=== PATIENT | female | born 1950 | race African-American/Black ===

== ENCOUNTER 2020-01-07 03:04 | Inpatient (IN) | payer MEDICARE, OTHER ==
[~2020-01-07] VITALS: Ht 172.7 cm; Wt 76.7 kg
[2020-01-07] VITALS (7 sets, daily range): BP systolic 173–194; BP diastolic 80–104
[~2020-01-07 03:04] MED LIST: UNOBMED
--- NOTE | 2020-01-07 03:14 | Emergency Room Report ---
History of Present Illness General Chief Complaint: Multiple Trauma/Fall Source: Patient Present Illness HPI Disclaimer: Please note that this report is being documented using DRAGON technology. This can lead to erroneous entry secondary to incorrect interpretation by the dictating instrument. HPI: 69-year-old female presents for evaluation after a ground-level fall. The patient was walking back to her room from the bathroom slipping on the ground falling onto her right side and onto her back. No head injury or loss of conscious. She does not take anticoagulants. Reports midline back pain radiating around the right side and across the right thigh. Denies numbness or tingling. Has not attempted to urinate or pass a bowel movement yet. Able to move lower extremities with states she did not have the strength to stand. Denies prior history of back injury or surgery. Also complaining of right shoulder pain over the anterior portion. She states she impacted on that shoulder. Denies pain radiating. Pain is 8/10. PMH: Hypertension, pre-diabetes, ESRD PSH: Dialysis catheter Allergies: Reviewed Social Hx: Reviewed Allergies: Coded Allergies: IODINE (Verified Allergy, Unknown, 01/07/20) Uncoded Allergies: CONTRAST DYE (Allergy, Unknown, 01/07/20) COVID-19 Screening Contact w/high risk pt: No Recent Travel to affected area: No Experienced COVID-19 symptoms?: No COVID-19 Testing performed CLEAT LAYER: No Nursing Documentation-PMH Hx Hypertension: Yes Hx Diabetes: Yes Hx Dialysis: Yes - M,W,F Hx Seizures: Yes Review of Systems All Other Systems: negative except mentioned in HPI Physical Exam Vital Signs Date Time Temp Pulse Resp B/P (MAP) Pulse Ox O2 Delivery O2 Flow Rate FiO2 01/07/20 03:06 99.0 90 16 193/104 (133) 94 Room Air General: Awake and alert, appears uncomfortable HEENT: NC/AT. EOMI. Resp: Normal work of breathing. Skin: Intact. No abrasions, laceration or rash over the exposed skin MSK: Normal tone and bulk. Moving all extremities. No obvious deformity. Pelvis stable on AP and lateral compression. Full range of motion of lower extremities on passive range testing. Patient able to straight leg raise bilaterally. Neuro: Awake and alert. Mentating appropriately. Sensation is intact over the dermatomes of lower extremities. Spine: There is tenderness in the lower lumbar spine in the midline though more pronounced on the paraspinal region extending across the right side over the lateral portion of the right hip. The pelvis is stable. Medical Decision Making Diagnostic Impression: Primary Impression: Contusion of lower back and pelvis, initial encounter Additional Impressions: Contusion of shoulder, right Adnexal cyst Diverticulosis Cholelithiasis Splenomegaly Spinal hemangioma ER Course 69-year-old female presents for evaluation after a fall from standing. No injury, no loss of conscious and denying any headache or back pain at this time. Complaining of pain over the lower back and over over the right side of the hip. Concern for possible fracture CT scan of the spine was obtained as well as x-ray of the right shoulder. No evidence of acute fracture, dislocation or malalignment on x-rays of the right shoulder or CT of the lumbar spine. There is some chronic findings on CT including adnexal cyst, diverticulosis without diverticulitis, cholelithiasis, mild splenomegaly and a spinal hemangioma. Patient is complaining of persistent pain which is more paraspinal consistent with contusion and spasm. She was treated with Tylenol, Robaxin, lidocaine patches. She was provided with a walker. 0600: On attempted discharge the patient she states she is too weak to ambulate. She also admits that she is a chronic opioid user, previous heroin user. States she is mostly bedbound at home but has helped from a home health aide though no one is home at this time. She also states she missed dialysis this week due to transportation issues. Will draw labs to evaluate electrolytes, renal function. Her dialysis schedule is Friday, , Friday. Anticipate admission. Patient signed out to Dr. Roy pending labs and ultimate disposition. Other X-Ray Diagnostic Results Other X-Ray Diagnostic Results : X-Ray ordered: Right shoulder # of Views/Limited Vs Complete: Complete Indication: Pain EP Interpretation: Yes Interpretation: no dislocation, no soft tissue swelling, no fractures, other - Metallic foreign bodies in the soft tissue of the neck, tunneled dialysis catheter right chest. Impression: No acute disease PA Scribe Text Electronically signed by Dr. Roly Graff CT/MRI/US Diagnostic Results CT/MRI/US Diagnostic Results : Impression Final Report EXAM: CT Lumbar Spine Without Intravenous Contrast CLINICAL HISTORY: BK PAIN TECHNIQUE: Axial computed tomography images of the lumbar spine without intravenous contrast. CTDI is 12.9 mGy and DLP is 561 mGy-cm. One or more of the following dose reduction techniques were used: automated exposure control, adjustment of the mA and/or kV according to patient size, use of iterative reconstruction technique. COMPARISON: No relevant prior studies available. FINDINGS: Vertebrae: There is no evidence of acute fracture or malalignment of the lumbar spine. Vertebral body heights are preserved. Probable vertebral body hemangioma seen at L4. Discs/spinal canal/neural foramina: No acute findings. No spinal canal stenosis. Disc spaces are preserved. Soft tissues: Mild cardiomegaly. Cholelithiasis. Diffuse colonic diverticulosis. 5.6 cm partially septated right adnexal cyst, which is abnormal for patient's age. Mild splenomegaly. IMPRESSION: No evidence of acute osseous abnormality. Multiple chronic intra-abdominal findings as above. Recommend follow-up CT or MRI evaluation with the partially septated right adnexal cyst, or comparison to any prior exams if available. Radiologist: Carlos Perry M.D. Electronically Signed: 01/07/20 05:14 Study ready at 04:45 and initial results transmitted at 05:14 Last Vital Signs Date Time Temp Pulse Resp B/P (MAP) Pulse Ox O2 Delivery O2 Flow Rate FiO2 01/07/20 03:06 99.0 90 16 193/104 (133) 94 Room Air Condition: Stable Signed Out To: Dr Roy Scripts Acetaminophen* (TYLENOL EXTRA STRENGTH*) 500 Mg Tablet 500 MG ORAL Q8H PRN for Prn Headache/Temp > 101, #30 TAB 0 Refills Prov: Roly Graff MD 01/07/20 Lidocaine Patch* (Lidoderm Patch*) 1 Each Adh..patch 1 PATCH TOPIC DAILY, #7 PATCH 0 Refills Patch(es) may remain in place for up to 12 hours in any 24-hour period. Prov: Roly Graff MD 01/07/20 Methocarbamol* (ROBAXIN-750*) 750 Mg Tablet 750 MG PO QID, #28 TAB 0 Refills Prov: Roly Graff MD 01/07/20 Roly Graff MD Jan 07, 2020 03:14
[2020-01-07] MEDS ORDERED: Acetaminophen 500mg (ES) tab ORAL ONE (05:00)
[2020-01-07] MEDS ORDERED: Methocarbamol 750mg tab ORAL ONE (05:00)
--- NOTE | 2020-01-07 05:00 | Diagnostic Imaging Report ---
EXAM: XR Right Shoulder Complete, 2 or More Views CLINICAL HISTORY: INJ TECHNIQUE: Two or more views of the right shoulder. COMPARISON: No relevant prior studies available. FINDINGS: Bones/joints: No definite acute fracture. No dislocation. High riding humeral head with diminished acromiohumeral interval most consistent with partial or complete rotator cuff tear. Mild deformity along the lateral margin of the right humeral head likely representing old Hill-Sachs fracture. Soft tissues: No evidence of acute soft tissue abnormality. Linear metallic structures within the right lower neck could represent broken needles at this site. Tunneled dual-lumen right subclavian central venous catheter in place. IMPRESSION: No definite acute fracture or dislocation. Probable old Hill-Sachs fracture of the right humeral head.
--- NOTE | 2020-01-07 05:14 | Diagnostic Imaging Report ---
EXAM: CT Lumbar Spine Without Intravenous Contrast CLINICAL HISTORY: BK PAIN TECHNIQUE: Axial computed tomography images of the lumbar spine without intravenous contrast. CTDI is 12.9 mGy and DLP is 561 mGy-cm. One or more of the following dose reduction techniques were used: automated exposure control, adjustment of the mA and/or kV according to patient size, use of iterative reconstruction technique. COMPARISON: No relevant prior studies available. FINDINGS: Vertebrae: There is no evidence of acute fracture or malalignment of the lumbar spine. Vertebral body heights are preserved. Probable vertebral body hemangioma seen at L4. Discs/spinal canal/neural foramina: No acute findings. No spinal canal stenosis. Disc spaces are preserved. Soft tissues: Mild cardiomegaly. Cholelithiasis. Diffuse colonic diverticulosis. 5.6 cm partially septated right adnexal cyst, which is abnormal for patient's age. Mild splenomegaly. IMPRESSION: No evidence of acute osseous abnormality. Multiple chronic intra-abdominal findings as above. Recommend follow-up CT or MRI evaluation with the partially septated right adnexal cyst, or comparison to any prior exams if available.
[2020-01-07] MEDS ORDERED: ROBAXIN-750750 MG PO (05:23)
[2020-01-07] MEDS ORDERED: TYLENOL EXTRA500 MG ORAL (05:23)
[2020-01-07] MEDS ORDERED: LIDODERM700 M1 TOPIC (05:23)
[2020-01-07] MEDS ORDERED: Morphine Sulfate 2mg/ml Inj(IV/IM USE ONLY) IM ONE ×2 (05:30→07:30)
[2020-01-07 07:20] LABS: HEMATOCRIT 25.7 % (37.0-47.0); HEMOGLOBIN 8.8 G/DL (12.0-16.0); MEAN CORPUSCULAR VOLUME 90 FL (80-99); PLATELET COUNT 34 K/UL (150-450); RED BLOOD COUNT 2.85 M/UL (4.20-5.40); RED CELL DISTRIBUTION WIDTH 12.3 % (11.6-14.8); WHITE BLOOD COUNT 4.2 K/UL (4.8-10.8)
[2020-01-07 07:34] LABS: INR 1.1 (0.9-1.1)
[2020-01-07 07:45] LABS: ALANINE AMINOTRANSFERASE 15 U/L (12-78); ALBUMIN 3.5 G/DL (3.4-5.0); ALBUMIN/GLOBULIN RATIO 0.6 (1.0-2.7); ALKALINE PHOSPHATASE 71 U/L (46-116); ANION GAP 16 mmol/L (5-15); ASPARTATE AMINO TRANSFERASE 24 U/L (15-37); BILIRUBIN,TOTAL 0.4 MG/DL (0.2-1.0); BLOOD UREA NITROGEN 67 mg/dL (7-18); CALCIUM 8.6 MG/DL (8.5-10.1); CARBON DIOXIDE 20 MMOL/L (21-32); CHLORIDE 97 MMOL/L (98-107); CREATININE 18.1 MG/DL (0.55-1.30); SODIUM 132 MMOL/L (136-145)
[2020-01-07 07:52] LABS: POTASSIUM 7.9 MMOL/L (3.5-5.1)
[2020-01-07] MEDS ORDERED: Insulin Human Regular 100units/ml 3ml ONE (08:41)
[2020-01-07] MEDS ORDERED: Sodium Bicarbonate 50ml Carp IV ONE (08:45)
[2020-01-07] MEDS ORDERED: Sodium Polystyrene Sulfonate 15gm Powder ORAL ONE (08:45)
[2020-01-07] MEDS ORDERED: Insulin Human Regular 100units/ml 3ml IV ONE (08:45)
--- NOTE | 2020-01-07 09:55 | Diagnostic Imaging Report ---
Indication: Shortness of breath Technique: One view of the chest Comparison: 06/16/2015 Findings: Interim placement right jugular tunneled dialysis catheter. The heart is upper limits normal in size. There is some central bronchial wall thickening. No definite acute infiltrates, effusions, or congestion. Impression: No definite acute process. Findings as noted
[2020-01-07] MEDS ORDERED: Morphine Sulfate 4mg/ml Inj (IV USE ONLY) IVP ONE (11:30)
[2020-01-07] MEDS ORDERED: ALPRAZOLAM1 M2 ORAL (14:23)
[2020-01-07] MEDS ORDERED: AMLODIPINE BESY10 MG ORAL (14:23)
--- NOTE | 2020-01-07 14:53 | Consultation ---
Consult Note Consult Note I am asked to evaluate the patient at the request of Dr. Barnett for dialysis management. Patient known to have end-stage renal disease, has a right chest permacath, patient apparently missed 1 dialysis, referred to emergency room and found to have potassium of 7 9 In the emergency room the patient was treated with sodium bicarb, with IV insulin, and currently is under dialysis treatment in room 237. Patient has asterixis , appears very clinically uremic and is a poor historian. HPI: 69-year-old female presents for evaluation after a ground-level fall. The patient was walking back to her room from the bathroom slipping on the ground falling onto her right side and onto her back. No head injury or loss of conscious. She does not take anticoagulants. Reports midline back pain radiating around the right side and across the right thigh. Denies numbness or tingling. Has not attempted to urinate or pass a bowel movement yet. Able to move lower extremities with states she did not have the strength to stand. Denies prior history of back injury or surgery. Also complaining of right shoulder pain over the anterior portion. She states she impacted on that shoulder. Denies pain radiating. Pain is 8/10. PMH: Hypertension, pre-diabetes, ESRD PSH: Dialysis catheter Coded Allergies: IODINE (Verified Allergy, Unknown, 01/07/20) Uncoded Allergies: CONTRAST DYE (Allergy, Unknown, 01/07/20) Patient examined during dialysis Blood pressure elevated Heart rate 85 Right chest permacath site appears unclean Decreased breath sound over the bases Tachycardia Soft abdomen . Assessment/Plan End-stage renal disease, presents with serum potassium of 7.9. Missed at least one dialysis treatment Patient has cocaine and narcotics in urine tox screen. Anemia, most likely due to chronic kidney disease Hypertensive kidney disease, hypertension [id number] HCV HIV Plan: Hemodialysis against 1 potassium bath BP control ID eval?? Per orders I spent an additional 36 minutes on review of medical records at [facility] , including prior hospital records,consult notes, progress notes, procedures , imaging labs, hemodynamics, and other clinical documentation. Over 35 min Jack Pryor MD Jan 07, 2020 14:53
[2020-01-07] MEDS: Docusate 100mg cap ORAL SCH (17:46)
[2020-01-07] MEDS ORDERED: Heparin 5000 units/ml inj SUBQ SCH (21:00)
[2020-01-07] MEDS: HydrALAZINE 50mg tab ORAL SCH (22:09)
[2020-01-08] VITALS (7 sets, daily range): BP systolic 141–162; BP diastolic 71–94
[2020-01-08] MEDS ORDERED: Sennosides 8.6mg tab ORAL PRN ×2 (00:45→17:00)
[2020-01-08] MEDS: HydrALAZINE 50mg tab ORAL SCH ×3 (05:52→21:22)
--- NOTE | 2020-01-08 06:15 | History and Physical Report ---
DATE OF ADMISSION: 01/07/2020 REASON FOR ADMISSION: Hyperkalemia due to missed dialysis session. HISTORY OF PRESENT ILLNESS: The patient is on chronic hemodialysis three times a week due to end-stage renal disease. She has a right chest PermCath. She missed her dialysis yesterday. She states that it was because of her mood and depression, she still is grieving her son's from a drive by shooting apparently last year. The patient came to the emergency room with shortness of breath and was noted to have a potassium of 7.9. Her EKG revealed sinus rhythm, first-degree AV block with peaked T-waves. She was given glucose insulin and bicarb in the emergency room. She was admitted to the hospital under my care. Emergent Renal consultation and hemodialysis were initiated. PAST MEDICAL HISTORY: Includes HIV, type 2 diabetes mellitus, hypertension, end-stage renal disease, depression, degenerative disk disease, and hepatitis C. ALLERGIES: Include iodine contrast dye. SOCIAL HISTORY: Negative for smoking, alcohol use, but she does have a history of cocaine abuse. FAMILY HISTORY: Noncontributory. MEDICATIONS: Prior to admission, reviewed and reconciled from the [facility] database where she was last hospitalized. These include bupropion SR 100 q.12h., senna 8.6 mg daily, MiraLAX 17 g daily, Zofran 4 mg p.r.n., oxycodone 10 t.i.d. p.r.n., amlodipine 10 daily, Sensipar 30 daily, Prezcobix 800/150 daily, Tivicay 50 mg daily, Lexapro 20 daily, Renagel 800 t.i.d., loratadine 10 daily, and melatonin 3 at bedtime. REVIEW OF SYSTEMS: No fevers or chills. No cough. No leg swelling. No abdominal pain or change in bowel habits. No history of seizures. Diabetes is diet managed. There is no history of thyroid disorder. She has been requesting to see a psychiatrist and has not been able to see one for a while or regularly. PHYSICAL EXAMINATION: VITAL SIGNS: Blood pressure 199/98, heart rate 95, respiratory rate 22, afebrile, oxygen saturation room air 95%. HEENT: Conjunctivae pink. Sclerae are anicteric. Oropharynx clear. NECK: Supple. Jugular venous pressure elevated. LUNGS: With diminished breath sounds and few rales. No breast masses. CARDIAC: Regular rhythm and rate. Normal S1, S2 with a fourth heart sound. No pericardial rub. ABDOMEN: Soft, nontender. EXTREMITIES: No edema. There is asterixis otherwise no focal neurologic deficits. The chest wall on the right has a PermCath site is clean and dry. LABORATORY DATA: White count 4.2, hemoglobin 8.8, platelets . Sodium 132, potassium 7.9, bicarb 20, BUN 67, creatinine . Troponin negative. Albumin 3.5. Urine tox screen positive for benzodiazepine and cocaine. IMPRESSION: 1. Hyperkalemia. 2. End-stage renal disease with missed dialysis session and uremia. 3. Asterixis. 4. Cocaine intoxication and abuse. 5. Hypertensive urgency. 6. Anemia of chronic kidney disease. 7. HIV/AIDS. 8. History of hepatitis C. 9. Thrombocytopenia. PLAN: Titrate antihypertensives. Emergent hemodialysis and ultrafiltration. For Psychiatric consultation, withdrawal precautions. Monitor blood counts and observe for signs of bleeding. Alek Mario JOB#: [id number] CC: AMBERLY
[2020-01-08 07:25] LABS: BASOPHILS % (AUTO) 1.5 % (0.0-2.0); EOSINOPHILS % (AUTO) 4.6 % (0.0-3.0); HEMATOCRIT 24.9 % (37.0-47.0); HEMOGLOBIN 8.4 G/DL (12.0-16.0); LYMPHOCYTES % (AUTO) 13.8 % (20.0-45.0); MEAN CORPUSCULAR VOLUME 91 FL (80-99); MONOCYTES % (AUTO) 10.2 % (1.0-10.0); PLATELET COUNT 163 K/UL (150-450); RED BLOOD COUNT 2.73 M/UL (4.20-5.40); WHITE BLOOD COUNT 4.7 K/UL (4.8-10.8)
[2020-01-08 07:47] LABS: ALANINE AMINOTRANSFERASE 16 U/L (12-78); ALBUMIN 3.3 G/DL (3.4-5.0); ALBUMIN/GLOBULIN RATIO 0.6 (1.0-2.7); ALKALINE PHOSPHATASE 64 U/L (46-116); ANION GAP 13 mmol/L (5-15); ASPARTATE AMINO TRANSFERASE 17 U/L (15-37); BILIRUBIN,TOTAL 0.4 MG/DL (0.2-1.0); BLOOD UREA NITROGEN 37 mg/dL (7-18); CALCIUM 8.4 MG/DL (8.5-10.1); CARBON DIOXIDE 23 MMOL/L (21-32); CHLORIDE 104 MMOL/L (98-107); CHOLESTEROL 119 MG/DL (< 200); CREATININE 13.2 MG/DL (0.55-1.30); FERRITIN 806 NG/ML (8-388); GAMMA GLUTAMYL TRANSPEPTIDASE 186 U/L (5-85); HDL CHOLESTEROL 58 MG/DL (40-60); PHOSPHORUS 6.2 MG/DL (2.5-4.9); SODIUM 140 MMOL/L (136-145); TRIGLYCERIDES 46 MG/DL (30-150)
[2020-01-08 08:09] LABS: % IRON SATURATION 33 % (15-50); IRON 58 ug/dL (50-175); TOTAL IRON BINDING CAPACITY 174 ug/dL (250-450)
[2020-01-08] MEDS: HYDROcodone/Acetamin 5/325 tab ORAL PRN ×3 (08:13→22:37)
[2020-01-08] MEDS: Docusate 100mg cap ORAL SCH ×3 (08:13→17:57)
[2020-01-08] MEDS ORDERED: Sensipar 30mg Tab ORAL SCH (09:00)
[2020-01-08] MEDS ORDERED: RENVELA2.4 GM ORAL (09:50)
[2020-01-08] MEDS ORDERED: PREZCOBIX 8001 EACH PO (09:50)
[2020-01-08] MEDS ORDERED: TIVICAY50 MG ORAL (09:50)
[2020-01-08] MEDS ORDERED: LEXAPRO20 MG ORAL (09:56)
[2020-01-08] MEDS ORDERED: HYDROCODON-ACE1 EA16 ORAL (09:56)
--- NOTE | 2020-01-08 11:29 | Nephrology Progress Note ---
Assessment/Plan Problem List: (1) Hyperkalemia (2) ESRD (end stage renal disease) on dialysis (3) HIV disease (4) Substance abuse Assessment End-stage renal disease, presents with serum potassium of 7.9. Missed at least one dialysis treatment Patient has cocaine and narcotics in urine tox screen. Anemia, most likely due to chronic kidney disease Hypertensive kidney disease, hypertension [id number] HCV HIV Plan Hemodialysis done yesterday, serum potassium improved, repeated dialysis tomorrow BP control, medication adjusted ID eval, for HIV medication management Per orders Subjective ROS Limited/Unobtainable: No Constitutional: Reports: malaise Objective Objective Last 24 Hour Vital Signs Date Time Temp Pulse Resp B/P (MAP) Pulse Ox O2 Delivery O2 Flow Rate FiO2 01/08/20 09:32 Room Air 01/08/20 08:43 98.4 01/08/20 08:40 90 01/08/20 08:13 82 154/88 01/08/20 07:57 98.4 82 22 154/88 (110) 99 01/08/20 05:52 164/85 01/08/20 04:00 Room Air 01/08/20 04:00 98.1 90 22 162/94 (116) 95 01/08/20 03:49 80 01/08/20 00:00 Room Air 01/08/20 00:00 98.8 86 22 160/90 (113) 95 01/07/20 23:43 87 01/07/20 22:09 174/88 01/07/20 20:05 183/93 01/07/20 20:00 Room Air 01/07/20 20:00 98.8 89 22 183/93 (123) 95 01/07/20 19:22 90 01/07/20 16:48 95 199/98 01/07/20 16:00 90 01/07/20 16:00 98.1 96 22 194/99 (130) 95 01/07/20 16:00 Room Air 01/07/20 14:40 Room Air 01/07/20 13:51 98.1 85 20 183/103 (129) 95 01/07/20 13:25 97.8 76 19 165/97 96 Room Air 01/07/20 11:46 98.0 79 20 173/92 95 Room Air Intake and Output 01/07/20 01/08/20 19:00 07:00 Intake Total 200 ml Output Total 2000 ml Balance -2000 ml 200 ml Intake Oral 200 ml Output Hemodialysis UF 2000 ml # Voids 1 Laboratory Tests 01/08/20 05:15: White Blood Count 4.7L, Red Blood Count 2.73L, Hemoglobin 8.4L, Hematocrit 24.9L , Mean Corpuscular Volume 91, Mean Corpuscular Hemoglobin 30.9, Mean Corpuscular Hemoglobin Concent 33.9, Red Cell Distribution Width 13.0, Platelet Count 163#, Mean Platelet Volume 5.5L, Neutrophils (%) (Auto) 70.0, Lymphocytes (%) (Auto) 13.8L, Monocytes (%) (Auto) 10.2H, Eosinophils (%) (Auto) 4.6H, Basophils (%) (Auto) 1.5, Sodium Level 140, Potassium Level 5.0, Chloride Level 104, Carbon Dioxide Level 23, Anion Gap 13, Blood Urea Nitrogen 37H, Creatinine 13.2H, Estimat Glomerular Filtration Rate 3.4, Glucose Level 99, Uric Acid 5.6, Calcium Level 8.4L, Phosphorus Level 6.2H, Magnesium Level 2.7H, Iron Level 58, Total Iron Binding Capacity 174L, Percent Iron Saturation 33, Unsaturated Iron Binding 116, Ferritin 806H, Total Bilirubin 0.4, Gamma Glutamyl Transpeptidase 186H, Aspartate Amino Transf (AST/SGOT) 17, Alanine Aminotransferase (ALT/SGPT) 16, Alkaline Phosphatase 64, Troponin I 0.014, C-Reactive Protein, Quantitative 0.6, Pro-B-Type Natriuretic Peptide 36782B, Total Protein 8.8H, Albumin 3.3L, Globulin 5.5, Albumin/Globulin Ratio 0.6L, Triglycerides Level 46, Cholesterol Level 119, LDL Cholesterol 47, HDL Cholesterol 58, Cholesterol/HDL Ratio 2.1L, Vitamin B12 Level 253, Folate 6.7L, Thyroid Stimulating Hormone (TSH) 3.775H, Hepatitis B Surface Antigen [Pending] Height (Feet): 5 Height (Inches): 8.00 Weight (Pounds): 169 General Appearance: no apparent distress Cardiovascular: tachycardia Respiratory/Chest: decreased breath sounds Abdomen: soft Jack Pryor MD Jan 08, 2020 11:29
[2020-01-08] MEDS ORDERED: Darunavir 600mg tab ORAL SCH (11:30)
[2020-01-08] MEDS ORDERED: Dolutegravir Sodium 50mg tab ORAL SCH (11:30)
[2020-01-08] MEDS ORDERED: ALPRAZolam 0.5mg tab ORAL PRN ×3 (16:00→21:00)
[2020-01-08] MEDS: Darunavir 600mg tab ORAL SCH (17:53)
--- NOTE | 2020-01-08 19:30 | Consultation ---
DATE OF CONSULTATION: 01/08/2020 INFECTIOUS DISEASES CONSULTATION CONSULTING PHYSICIAN: Elvis Garibay MD. REFERRING PHYSICIAN: Nam Barnett MD. REASON FOR CONSULTATION: HIV. HISTORY OF PRESENTING ILLNESS: This is a 69-year-old lady with history of HIV, hepatitis C, hypertension, diabetes, renal failure on dialysis, depression, who came in when she was short of breath. She missed her dialysis. Her potassium was 7.9. She also had a fall and an Infectious Diseases consultation has been obtained. PAST MEDICAL HISTORY: 1. History of HIV. 2. History of hepatitis C. 3. Renal failure, on dialysis. 4. Diabetes. 5. Hypertension. 6. Depression. 7. Degenerative disk disease. SOCIAL HISTORY: She used to be a smoker. She does not smoke anymore. She drinks alcohol. She has a history of cocaine use. FAMILY HISTORY: Noncontributory. REVIEW OF SYSTEMS: RESPIRATORY: She denies any fever, chills, cough, shortness of breath, or chest pain. CARDIAC: No chest pain. No palpitation. No dizziness. No syncope. GASTROINTESTINAL: No nausea. No vomiting. No abdominal pain or diarrhea. MUSCULOSKELETAL: She complains of back pain. MEDICATIONS: As an inpatient, she is on Lexapro, Sensipar, dolutegravir, darunavir, senna, hydralazine, Protonix, lidocaine, [place], docusate, Renvela, amlodipine, and clonidine. ALLERGIES: 1. Contrast dye. 2. Iodine. PHYSICAL EXAMINATION: VITAL SIGNS: Temperature of 98.4, T-max of 99, pulse of 90, respiratory rate 22, blood pressure 154/88, O2 saturation of 99% on room air. HEENT: Pupils equally reactive to light and accommodation. Mouth appears clean without thrush. NECK: Supple. No adenopathy. No JVD. CARDIOVASCULAR: Regular rate and rhythm. No murmurs. LUNGS: Clear to auscultation bilaterally. No crackles. No wheezes. ABDOMEN: Soft, nontender. No organomegaly. EXTREMITIES: No cyanosis. No clubbing. No edema. SKIN: Right plantar area below the first toe necrotic area noted. Right subclavian catheter noted. LABORATORY AND DIAGNOSTIC DATA: White count 4.7, hemoglobin 8.4, hematocrit 24.9, MCV 91, platelet count of 163,000 with neutrophils of 70%. Sodium 140, potassium 5, chloride 104, bicarb 23, BUN 37, creatinine 13.2, glucose 99, calcium 8.4. Total bilirubin 0.4, GGT 186, AST 17, ALT 16, and alkaline phosphatase 64. Troponin 0.014. C-reactive protein 0.6. Beta-natriuretic peptide 27,808. Total protein 8.8, albumin 3.3. Cholesterol of 119. Hepatitis B surface antigen is pending. Chest x-ray is showing no acute process. Shoulder x-ray is showing no definite fracture or dislocation; probable old fracture of the right humeral head. CT of the spine is showing no acute osseous abnormality. ASSESSMENT: 1. This is a 69-year-old lady with history of HIV, hepatitis C, diabetes, hypertension, renal failure, who comes in after she missed her dialysis. She also had a fall and came in with back pain. CT is negative. 2. Fever is resolved. 3. HIV. 4. Hepatitis C. 5. Diabetes. 6. Hypertension. 7. Renal failure, on dialysis. PLAN: 1. Continue antiretrovirals. 2. We will follow up the patient clinically. I would like to thank, Dr. Barnett, for this consultation. Elvis Garibay M.D. DR: Justin JOB#: [id number] CC: Nam Barnett M.D.
[2020-01-09] VITALS: BP 149/68
--- NOTE | 2020-01-09 01:00 | Progress Note ---
DATE: 01/08/2020 INTERNAL MEDICINE AND CARDIOLOGY PROGRESS NOTE SUBJECTIVE: The patient is status post hemodialysis with ultrafiltration yesterday. She still is quite anxious and weak. She still has involuntary tremors. The patient is not suicidal. PHYSICAL EXAMINATION: VITAL SIGNS: Blood pressure was 152/100, heart rate 86, and respiratory rate 21. HEENT: Conjunctival pallor. Oropharynx is clear. NECK: Supple. Right chest wall PermCath site clean and dry. LUNGS: Clear. CARDIAC: Regular rhythm and rate. Normal S1 and S2 with a fourth heart sound. No rub. ABDOMEN: Soft. EXTREMITIES: No edema. Asterixis is still present. LABORATORY DATA: White count 4.7, hemoglobin 8.4. Sodium 140, potassium 5, bicarb 23, BUN 37, creatinine 13. Troponin 0.014. Magnesium 2.7. Pro-natriuretic peptide 27,000. Albumin 3.3. TSH 3.7. LDL cholesterol 47. Total cholesterol 119. IMPRESSION: 1. Hyperkalemia, corrected. 2. End-stage renal disease, status post missed dialysis sessions. 3. Hypertensive urgency, improving. 4. Uremia due to missed dialysis sessions. 5. HIV with no record of low T-cell counts or data regarding viral load. 6. Anemia due to chronic kidney disease. 7. Acute on chronic diastolic congestive heart failure. 8. Situational depression and anxiety. 9. Metabolic encephalopathy 10. Remains critical and guarded. PLAN: 1. Antidepressant and anxiolytics. 2. Titrate antihypertensives. 3. Hemodialysis with ultrafiltration per schedule. 4. HIV therapy. Infectious Disease consultation. 5. Renal followup. 6. Psychiatric consultation. Nam Barnett M.D. DR: JENNY JOB#: [id number] CC: AMBERLY
[2020-01-09 04:00] VITALS: BP 131/58
[2020-01-09] MEDS: HydrALAZINE 50mg tab ORAL SCH ×3 (05:10→21:11)
[2020-01-09 08:00] VITALS: BP 146/66
[2020-01-09 09:12] LABS: BASOPHILS % (AUTO) 0.6 % (0.0-2.0); EOSINOPHILS % (AUTO) 2.7 % (0.0-3.0); HEMOGLOBIN 8.7 G/DL (12.0-16.0); LYMPHOCYTES % (AUTO) 11.9 % (20.0-45.0); MEAN CORPUSCULAR VOLUME 91 FL (80-99); MONOCYTES % (AUTO) 8.3 % (1.0-10.0); NEUTROPHILS % (AUTO) 76.5 % (45.0-75.0); PLATELET COUNT 159 K/UL (150-450); RED BLOOD COUNT 2.84 M/UL (4.20-5.40); WHITE BLOOD COUNT 7.9 K/UL (4.8-10.8)
[2020-01-09] MEDS: Dolutegravir Sodium 50mg tab ORAL SCH (09:30)
[2020-01-09] MEDS: Darunavir 600mg tab ORAL SCH ×2 (09:30→17:16)
[2020-01-09] MEDS: Sensipar 30mg Tab ORAL SCH (09:32)
[2020-01-09] MEDS: Docusate 100mg cap ORAL SCH ×3 (09:32→17:15)
[2020-01-09 09:33] LABS: ALANINE AMINOTRANSFERASE 16 U/L (12-78); ALBUMIN 3.3 G/DL (3.4-5.0); ALBUMIN/GLOBULIN RATIO 0.6 (1.0-2.7); ALKALINE PHOSPHATASE 62 U/L (46-116); ANION GAP 13 mmol/L (5-15); ASPARTATE AMINO TRANSFERASE 17 U/L (15-37); BILIRUBIN,TOTAL 0.4 MG/DL (0.2-1.0); BLOOD UREA NITROGEN 47 mg/dL (7-18); CALCIUM 8.3 MG/DL (8.5-10.1); CARBON DIOXIDE 23 MMOL/L (21-32); CHLORIDE 101 MMOL/L (98-107); CREATININE 15.1 MG/DL (0.55-1.30); PHOSPHORUS 6.4 MG/DL (2.5-4.9); POTASSIUM 5.5 MMOL/L (3.5-5.1); SODIUM 137 MMOL/L (136-145)
[2020-01-09] MEDS: HYDROcodone/Acetamin 5/325 tab ORAL PRN ×2 (09:37→16:04)
--- NOTE | 2020-01-09 10:26 | Nephrology Progress Note ---
Assessment/Plan Problem List: (1) Hyperkalemia (2) ESRD (end stage renal disease) on dialysis (3) HIV disease (4) Substance abuse Assessment End-stage renal disease, presents with serum potassium of 7.9. Missed at least one dialysis treatment Patient has cocaine and narcotics in urine tox screen. Anemia, most likely due to chronic kidney disease Hypertensive kidney disease, hypertension [id number] HCV HIV Plan Hemodialysis done January 06, due for dialysis today January 08. Blood pressure seems to be much better in control. Today serum potassium is 5.5. BP control, medication adjusted ID eval, for HIV medication management Per orders Subjective ROS Limited/Unobtainable: No Constitutional: Reports: malaise Objective Objective Last 24 Hour Vital Signs Date Time Temp Pulse Resp B/P (MAP) Pulse Ox O2 Delivery O2 Flow Rate FiO2 01/09/20 05:10 131/58 01/09/20 04:00 97.9 77 18 131/58 (82) 96 01/09/20 04:00 59 01/09/20 04:00 Room Air 01/09/20 00:00 57 01/09/20 00:00 98.0 66 18 149/68 (95) 97 01/09/20 00:00 Room Air 01/08/20 23:07 96.8 01/08/20 21:22 160/77 01/08/20 21:20 79 160/77 01/08/20 20:00 94 01/08/20 20:00 Room Air 01/08/20 20:00 96.8 79 18 160/77 (104) 98 01/08/20 16:52 98.8 97 20 161/75 (103) 97 01/08/20 16:27 Room Air 01/08/20 16:26 98.3 98 21 141/71 (94) 99 01/08/20 16:25 81 01/08/20 13:09 153/100 01/08/20 12:39 86 01/08/20 11:58 Room Air 01/08/20 11:49 98.0 94 21 152/88 (109) 99 Intake and Output 01/08/20 01/09/20 19:00 07:00 Intake Total 750 ml 120 ml Balance 750 ml 120 ml Intake Oral 750 ml 120 ml # Bowel Movements 1 Current Medications Medications (Trade) Dose Ordered Sig/Rochelle Route PRN Reason Start Time Stop Time Status Last Admin Dose Admin Acetaminophen/ Hydrocodone Bitart ([place] 5/325) 1 tab Q6H PRN ORAL For Pain 01/08/20 22:30 01/14/20 22:29 01/09/20 09:37 Amlodipine Besylate (Norvasc) 10 mg DAILY ORAL 01/09/20 09:00 02/06/20 14:59 Cinacalcet (Sensipar) 30 mg DAILY ORAL 01/09/20 09:00 04/07/20 08:59 01/09/20 09:32 Clonidine HCl (Catapres Tab) 0.1 mg Q4H PRN ORAL bp over 170 syst 01/08/20 17:00 04/06/20 16:59 Darunavir (Prezista) 600 mg TWICE A DAY ORAL 01/08/20 18:00 02/07/20 11:29 01/09/20 09:30 Docusate Sodium (Colace) 100 mg THREE TIMES A DAY ORAL 01/08/20 18:00 02/06/20 17:59 01/09/20 09:32 Dolutegravir Sodium (Tivicay) 50 mg DAILY ORAL 01/09/20 09:00 04/07/20 11:29 01/09/20 09:30 Escitalopram Oxalate (Lexapro) 20 mg DAILY ORAL 01/09/20 09:00 02/07/20 08:59 01/09/20 09:31 Folic Acid (Folate) 2 mg DAILY ORAL 01/09/20 09:00 02/07/20 11:29 01/09/20 09:32 Hydralazine HCl (Apresoline) 50 mg Q8HR ORAL 01/08/20 22:00 04/06/20 21:59 01/08/20 21:22 Lidocaine (Lidoderm 5% PATCH) 1 patch Q24H TDERMAL 01/08/20 21:00 04/06/20 20:59 Mirtazapine (Remeron) 15 mg BEDTIME ORAL 01/08/20 22:00 04/07/20 21:59 01/08/20 22:36 Pantoprazole (Protonix) 40 mg EVERY 12 HOURS ORAL 01/08/20 21:00 02/06/20 20:59 01/09/20 09:31 Sennosides (Senokot) 8.6 mg DAILYPRN PRN ORAL Constipation 01/08/20 17:00 02/07/20 16:59 Sevelamer Carbonate (Renvela) 1,600 mg THREE TIMES A DAY ORAL 01/08/20 18:00 04/06/20 17:59 01/09/20 09:31 Laboratory Tests 01/09/20 08:25: White Blood Count 7.9#, Red Blood Count 2.84L, Hemoglobin 8.7L, Hematocrit 26.0L , Mean Corpuscular Volume 91, Mean Corpuscular Hemoglobin 30.8, Mean Corpuscular Hemoglobin Concent 33.7, Red Cell Distribution Width 13.0, Platelet Count 159, Mean Platelet Volume 4.9L, Neutrophils (%) (Auto) 76.5H, Lymphocytes (%) (Auto) 11.9L, Monocytes (%) (Auto) 8.3, Eosinophils (%) (Auto) 2.7, Basophils (%) (Auto) 0.6, Sodium Level 137, Potassium Level 5.5H, Chloride Level 101, Carbon Dioxide Level 23, Anion Gap 13, Blood Urea Nitrogen 47H, Creatinine 15.1H, Estimat Glomerular Filtration Rate 2.9, Glucose Level 83, Uric Acid 7.0, Calcium Level 8.3L, Phosphorus Level 6.4H, Magnesium Level 2.7H, Total Bilirubin 0.4, Aspartate Amino Transf (AST/SGOT) 17, Alanine Aminotransferase (ALT/SGPT) 16, Alkaline Phosphatase 62, Troponin I 0.004, Pro-B -Type Natriuretic Peptide 41047X, Total Protein 8.6H, Albumin 3.3L, Globulin 5.3 , Albumin/Globulin Ratio 0.6L Height (Feet): 5 Height (Inches): 8.00 Weight (Pounds): 169 General Appearance: no apparent distress Cardiovascular: normal rate Respiratory/Chest: decreased breath sounds Abdomen: soft Jack Pryor MD Jan 09, 2020 10:26
[2020-01-09 12:00] VITALS: BP 164/77
[2020-01-09 16:00] VITALS: BP 154/78
[2020-01-09 20:00] VITALS: BP 173/79
[2020-01-09] MEDS: ALPRAZolam 0.5mg tab ORAL PRN (20:58)
[2020-01-10] VITALS: BP 149/67
--- NOTE | 2020-01-10 | Progress Note ---
DATE: 01/09/2020 INTERNAL MEDICINE AND CARDIOLOGY PROGRESS NOTE SUBJECTIVE: Patient had bradycardia last night. Beta-lamar was discontinued. She has no specific complaints. Her monitor now revealed sinus rhythm with no recurring bradycardic episodes. PHYSICAL EXAMINATION: VITAL SIGNS: Blood pressure 131/58, heart rate 77, respiratory rate 18, afebrile. LUNGS: Clear. CARDIAC: Regular. Normal S1, S2. No murmur or rub. ABDOMEN: Soft. EXTREMITIES: There is no edema. Slight asterixis persists. IMPRESSION: 1. Uremia due to missed dialysis session. 2. Hyperkalemia, corrected. 3. Sinus bradycardia due to beta-lamar therapy, resolved. 4. Hypertensive heart disease. 5. End-stage renal disease. 6. Hypertensive urgency, resolved. 7. Anemia of chronic kidney disease. 8. Cocaine intoxication and abuse. 9. HIV positive. 10. Hepatitis C positive. 11. Metabolic encephalopathy. 12. Remains critical and guarded. PLAN: 1. Dialysis today. 2. Discharge planning to follow. 3. She will need close outpatient support to prevent rehospitalization and noncompliance with dialysis sessions. 4. Patient was counseled extensively as to the risks of cocaine including sudden cardiac . Nam Barnett M.D. DR: Trent JOB#: [id number] CC: AMBERLY
[2020-01-10 04:00] VITALS: BP 147/81
[2020-01-10] MEDS: HydrALAZINE 50mg tab ORAL SCH ×3 (05:57→21:09)
[2020-01-10 08:00] VITALS: BP 151/72
[2020-01-10] MEDS: Docusate 100mg cap ORAL SCH ×3 (08:31→17:04)
[2020-01-10] MEDS: Sensipar 30mg Tab ORAL SCH (08:32)
[2020-01-10] MEDS: Darunavir 600mg tab ORAL SCH ×2 (08:33→17:04)
[2020-01-10] MEDS: Dolutegravir Sodium 50mg tab ORAL SCH (08:33)
[2020-01-10 08:43] LABS: EOSINOPHILS % (AUTO) 4.4 % (0.0-3.0); HEMATOCRIT 25.9 % (37.0-47.0); HEMOGLOBIN 8.8 G/DL (12.0-16.0); LYMPHOCYTES % (AUTO) 17.7 % (20.0-45.0); MEAN CORPUSCULAR VOLUME 92 FL (80-99); MONOCYTES % (AUTO) 10.5 % (1.0-10.0); NEUTROPHILS % (AUTO) 66.3 % (45.0-75.0); PLATELET COUNT 144 K/UL (150-450); RED BLOOD COUNT 2.82 M/UL (4.20-5.40); RED CELL DISTRIBUTION WIDTH 12.3 % (11.6-14.8); WHITE BLOOD COUNT 5.6 K/UL (4.8-10.8)
[2020-01-10] MEDS: HYDROcodone/Acetamin 5/325 tab ORAL PRN ×2 (08:44→17:04)
[2020-01-10 09:04] LABS: ALANINE AMINOTRANSFERASE 14 U/L (12-78); ALBUMIN 3.1 G/DL (3.4-5.0); ALBUMIN/GLOBULIN RATIO 0.5 (1.0-2.7); ALKALINE PHOSPHATASE 59 U/L (46-116); ANION GAP 8 mmol/L (5-15); ASPARTATE AMINO TRANSFERASE 23 U/L (15-37); BILIRUBIN,TOTAL 0.3 MG/DL (0.2-1.0); BLOOD UREA NITROGEN 31 mg/dL (7-18); CALCIUM 8.3 MG/DL (8.5-10.1); CARBON DIOXIDE 31 MMOL/L (21-32); CHLORIDE 101 MMOL/L (98-107); CREATININE 11.3 MG/DL (0.55-1.30); PHOSPHORUS 5.2 MG/DL (2.5-4.9); POTASSIUM 4.8 MMOL/L (3.5-5.1); SODIUM 139 MMOL/L (136-145)
--- NOTE | 2020-01-10 09:45 | Nephrology Progress Note ---
Assessment/Plan Problem List: (1) Hyperkalemia (2) ESRD (end stage renal disease) on dialysis (3) HIV disease (4) Substance abuse Assessment End-stage renal disease, presents with serum potassium of 7.9. Missed at least one dialysis treatment Patient has cocaine and narcotics in urine tox screen. Anemia, most likely due to chronic kidney disease Hypertensive kidney disease, hypertension [id number] HCV HIV Plan Hemodialysis done January 06, due for dialysis today January 08. Next hemodialysis January 10 blood pressure seems to be much better in control. BP control, medication adjusted ID eval, for HIV medication management Per orders Subjective ROS Limited/Unobtainable: No Constitutional: Reports: malaise, weakness Objective Objective Last 24 Hour Vital Signs Date Time Temp Pulse Resp B/P (MAP) Pulse Ox O2 Delivery O2 Flow Rate FiO2 01/10/20 09:14 96.7 01/10/20 08:32 74 151/72 01/10/20 08:00 96.7 74 18 151/72 (98) 97 01/10/20 05:57 147/81 01/10/20 04:00 98.3 78 18 147/81 (103) 96 01/10/20 04:00 Room Air 01/10/20 04:00 65 01/10/20 00:00 98.5 73 20 149/67 (94) 96 01/10/20 00:00 Room Air 01/10/20 00:00 70 01/09/20 21:11 173/79 01/09/20 21:00 Room Air 01/09/20 20:00 67 01/09/20 20:00 98.7 69 17 173/79 (110) 96 01/09/20 16:03 154/78 01/09/20 16:00 Room Air 01/09/20 16:00 86 01/09/20 16:00 98.1 61 18 154/78 (103) 95 01/09/20 12:00 75 01/09/20 12:00 99.1 105 18 164/77 (106) 96 01/09/20 12:00 Room Air Intake and Output 01/09/20 01/10/20 19:00 07:00 Intake Total 300 ml 320 ml Output Total 50 ml Balance 250 ml 320 ml Intake Oral 300 ml 320 ml Output Urine Total 50 ml Laboratory Tests 6/8/20 07:35: White Blood Count 5.6, Red Blood Count 2.82L, Hemoglobin 8.8L, Hematocrit 25.9L , Mean Corpuscular Volume 92, Mean Corpuscular Hemoglobin 31.2H, Mean Corpuscular Hemoglobin Concent 34.0, Red Cell Distribution Width 12.3, Platelet Count 144L, Mean Platelet Volume 5.2L, Neutrophils (%) (Auto) 66.3, Lymphocytes (%) (Auto) 17.7L, Monocytes (%) (Auto) 10.5H, Eosinophils (%) (Auto) 4.4H, Basophils (%) (Auto) 1.0, Sodium Level 139, Potassium Level 4.8, Chloride Level 101, Carbon Dioxide Level 31, Anion Gap 8, Blood Urea Nitrogen 31H, Creatinine 11.3H, Estimat Glomerular Filtration Rate 4.0, Glucose Level 82, Calcium Level 8.3L, Phosphorus Level 5.2H, Magnesium Level 2.7H, Total Bilirubin 0.3, Aspartate Amino Transf (AST/SGOT) 23, Alanine Aminotransferase (ALT/SGPT) 14, Alkaline Phosphatase 59, Troponin I 0.007, C-Reactive Protein, Quantitative 0.6 , Pro-B-Type Natriuretic Peptide 22279N, Total Protein 8.8H, Albumin 3.1L, Globulin 5.7, Albumin/Globulin Ratio 0.5L Height (Feet): 5 Height (Inches): 8.00 Weight (Pounds): 169 General Appearance: no apparent distress Cardiovascular: normal rate Respiratory/Chest: decreased breath sounds Abdomen: soft Jack Pryor MD Jan 10, 2020 09:45
--- NOTE | 2020-01-10 11:46 | Infectious Diseases Prog Note ---
Assessment/Plan Assessment/Plan antibiotics : ARV A 1. Fever is resolved. 2. HIV. 3. Hepatitis C. 4. Diabetes. 5. Hypertension. 6. Renal failure, on dialysis. P 1. Continue antiretrovirals. 2. We will follow up the patient clinically. Subjective Constitutional: Denies: fever, chills Respiratory: Denies: shortness of breath, dry cough Gastrointestinal/Abdominal: Denies: nausea, vomiting, diarrhea Musculoskeletal: Denies: pain Allergies: Coded Allergies: IODINE (Verified Allergy, Unknown, 01/07/20) Uncoded Allergies: CONTRAST DYE (Allergy, Unknown, 01/07/20) Objective Vital Signs Last 24 Hour Vital Signs Date Time Temp Pulse Resp B/P (MAP) Pulse Ox O2 Delivery O2 Flow Rate FiO2 01/10/20 09:59 Room Air 01/10/20 09:14 96.7 01/10/20 08:32 74 151/72 01/10/20 08:00 96.7 74 18 151/72 (98) 97 01/10/20 08:00 84 01/10/20 05:57 147/81 01/10/20 04:00 98.3 78 18 147/81 (103) 96 01/10/20 04:00 Room Air 01/10/20 04:00 65 01/10/20 00:00 98.5 73 20 149/67 (94) 96 01/10/20 00:00 Room Air 01/10/20 00:00 70 01/09/20 21:11 173/79 01/09/20 21:00 Room Air 01/09/20 20:00 67 01/09/20 20:00 98.7 69 17 173/79 (110) 96 01/09/20 16:03 154/78 01/09/20 16:00 Room Air 01/09/20 16:00 86 01/09/20 16:00 98.1 61 18 154/78 (103) 95 01/09/20 12:00 75 01/09/20 12:00 99.1 105 18 164/77 (106) 96 01/09/20 12:00 Room Air Height (Feet): 5 Height (Inches): 8.00 Weight (Pounds): 169 Respiratory/Chest: lungs clear Cardiovascular: normal rate, regular rhythm, no gallop/murmur Abdomen: soft, non tender Extremities: no edema Laboratory Tests Test 01/10/20 07:35 White Blood Count 5.6 K/UL (4.8-10.8) Red Blood Count 2.82 M/UL (4.20-5.40) L Hemoglobin 8.8 G/DL (12.0-16.0) L Hematocrit 25.9 % (37.0-47.0) L Mean Corpuscular Volume 92 FL (80-99) Mean Corpuscular Hemoglobin 31.2 PG (27.0-31.0) H Mean Corpuscular Hemoglobin Concent 34.0 G/DL (32.0-36.0) Red Cell Distribution Width 12.3 % (11.6-14.8) Platelet Count 144 K/UL (150-450) L Mean Platelet Volume 5.2 FL (6.5-10.1) L Neutrophils (%) (Auto) 66.3 % (45.0-75.0) Lymphocytes (%) (Auto) 17.7 % (20.0-45.0) L Monocytes (%) (Auto) 10.5 % (1.0-10.0) H Eosinophils (%) (Auto) 4.4 % (0.0-3.0) H Basophils (%) (Auto) 1.0 % (0.0-2.0) Sodium Level 139 MMOL/L (136-145) Potassium Level 4.8 MMOL/L (3.5-5.1) Chloride Level 101 MMOL/L (98-107) Carbon Dioxide Level 31 MMOL/L (21-32) Anion Gap 8 mmol/L (5-15) Blood Urea Nitrogen 31 mg/dL (7-18) H Creatinine 11.3 MG/DL (0.55-1.30) H Estimat Glomerular Filtration Rate 4.0 mL/min (>60) Glucose Level 82 MG/DL (74-106) Calcium Level 8.3 MG/DL (8.5-10.1) L Phosphorus Level 5.2 MG/DL (2.5-4.9) H Magnesium Level 2.7 MG/DL (1.8-2.4) H Total Bilirubin 0.3 MG/DL (0.2-1.0) Aspartate Amino Transf (AST/SGOT) 23 U/L (15-37) Alanine Aminotransferase (ALT/SGPT) 14 U/L (12-78) Alkaline Phosphatase 59 U/L (46-116) Troponin I 0.007 ng/mL (0.000-0.056) C-Reactive Protein, Quantitative 0.6 mg/dL (0.00-0.90) Pro-B-Type Natriuretic Peptide 46621 pg/mL (0-125) H Total Protein 8.8 G/DL (6.4-8.2) H Albumin 3.1 G/DL (3.4-5.0) L Globulin 5.7 g/dL Albumin/Globulin Ratio 0.5 (1.0-2.7) L Current Medications Medications (Trade) Dose Ordered Sig/Rochelle Route PRN Reason Start Time Stop Time Status Last Admin Dose Admin Acetaminophen/ Hydrocodone Bitart ([place] 5/325) 1 tab Q6H PRN ORAL For Pain 01/08/20 22:30 01/14/20 22:29 01/10/20 08:44 Alprazolam (Xanax) 1 mg THREE TIMES A DAY PRN ORAL For Anxiety 01/09/20 18:45 01/16/20 18:44 01/09/20 20:58 Amlodipine Besylate (Norvasc) 10 mg DAILY ORAL 01/09/20 09:00 02/06/20 14:59 01/10/20 08:32 Cinacalcet (Sensipar) 30 mg DAILY ORAL 01/09/20 09:00 04/07/20 08:59 01/10/20 08:32 Clonidine HCl (Catapres Tab) 0.1 mg Q4H PRN ORAL bp over 170 syst 01/08/20 17:00 04/06/20 16:59 Darunavir (Prezista) 600 mg TWICE A DAY ORAL 01/08/20 18:00 02/07/20 11:29 01/10/20 08:33 Docusate Sodium (Colace) 100 mg THREE TIMES A DAY ORAL 01/08/20 18:00 02/06/20 17:59 01/10/20 08:31 Dolutegravir Sodium (Tivicay) 50 mg DAILY ORAL 01/09/20 09:00 04/07/20 11:29 01/10/20 08:33 Escitalopram Oxalate (Lexapro) 20 mg DAILY ORAL 01/09/20 09:00 02/07/20 08:59 01/10/20 08:32 Folic Acid (Folate) 2 mg DAILY ORAL 01/09/20 09:00 02/07/20 11:29 01/10/20 08:32 Hydralazine HCl (Apresoline) 50 mg Q8HR ORAL 01/08/20 22:00 04/06/20 21:59 01/10/20 05:57 Lidocaine (Lidoderm 5% PATCH) 1 patch Q24H TDERMAL 01/08/20 21:00 04/06/20 20:59 Mirtazapine (Remeron) 15 mg BEDTIME ORAL 01/08/20 22:00 04/07/20 21:59 01/09/20 20:58 Pantoprazole (Protonix) 40 mg EVERY 12 HOURS ORAL 01/08/20 21:00 02/06/20 20:59 01/10/20 08:32 Sennosides (Senokot) 8.6 mg DAILYPRN PRN ORAL Constipation 01/08/20 17:00 02/07/20 16:59 Sevelamer Carbonate (Renvela) 2,400 mg THREE TIMES A DAY ORAL 01/09/20 13:00 04/06/20 17:59 01/10/20 08:33 Elvis Garibay MD Jan 10, 2020 11:46
[2020-01-10 12:00] VITALS: BP 154/72
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
[2020-01-10] MEDS: ALPRAZolam 0.5mg tab ORAL PRN (12:40)
[2020-01-10 16:00] VITALS: BP 159/82
[2020-01-10 20:00] VITALS: BP 164/81
--- NOTE | 2020-01-10 23:32 | Psych Consult Progress Note ---
Psychiatry Progress Note Psychiatry Progress Note Subjective the pt is doing better on Xanax now per her request Medications Current Medications Medications (Trade) Dose Ordered Sig/Rochelle Route PRN Reason Start Time Stop Time Status Last Admin Dose Admin Acetaminophen/ Hydrocodone Bitart ([place] 5/325) 1 tab Q6H PRN ORAL For Pain 01/08/20 22:30 01/14/20 22:29 01/10/20 17:04 Alprazolam (Xanax) 1 mg THREE TIMES A DAY PRN ORAL For Anxiety 01/09/20 18:45 01/16/20 18:44 01/10/20 12:40 Amlodipine Besylate (Norvasc) 10 mg DAILY ORAL 01/09/20 09:00 02/06/20 14:59 01/10/20 08:32 Cinacalcet (Sensipar) 30 mg DAILY ORAL 01/09/20 09:00 04/07/20 08:59 01/10/20 08:32 Clonidine HCl (Catapres Tab) 0.1 mg Q4H PRN ORAL bp over 170 syst 01/08/20 17:00 04/06/20 16:59 Darunavir (Prezista) 600 mg TWICE A DAY ORAL 01/08/20 18:00 02/07/20 11:29 01/10/20 17:04 Docusate Sodium (Colace) 100 mg THREE TIMES A DAY ORAL 01/08/20 18:00 02/06/20 17:59 01/10/20 08:31 Dolutegravir Sodium (Tivicay) 50 mg DAILY ORAL 01/09/20 09:00 04/07/20 11:29 01/10/20 08:33 Escitalopram Oxalate (Lexapro) 20 mg DAILY ORAL 01/09/20 09:00 02/07/20 08:59 01/10/20 08:32 Folic Acid (Folate) 2 mg DAILY ORAL 01/09/20 09:00 02/07/20 11:29 01/10/20 08:32 Hydralazine HCl (Apresoline) 50 mg Q8HR ORAL 01/08/20 22:00 04/06/20 21:59 01/10/20 21:09 Lidocaine (Lidoderm 5% PATCH) 1 patch Q24H TDERMAL 01/08/20 21:00 9/3/20 20:59 Mirtazapine (Remeron) 15 mg BEDTIME ORAL 01/08/20 22:00 04/07/20 21:59 01/10/20 21:09 Pantoprazole (Protonix) 40 mg EVERY 12 HOURS ORAL 01/08/20 21:00 02/06/20 20:59 01/10/20 21:09 Sennosides (Senokot) 8.6 mg DAILYPRN PRN ORAL Constipation 01/08/20 17:00 02/07/20 16:59 Sevelamer Carbonate (Renvela) 2,400 mg THREE TIMES A DAY ORAL 01/09/20 13:00 04/06/20 17:59 01/10/20 17:03 Neurological/Psychiatric: Reports: anxiety, depressed, emotional problems Allergies: Coded Allergies: IODINE (Verified Allergy, Unknown, 01/07/20) Uncoded Allergies: CONTRAST DYE (Allergy, Unknown, 01/07/20) Objective Data Height (Feet): 5 Height (Inches): 8.00 Weight (Pounds): 169 Appearance: no abnormalities noted Behavior Mannerisms: good eye contact Mental Status Exam - Affect: blunted Speech: clear Mental Status Exam - Thought P: logical Additional Comments: Alert and oriented times self, place, situation, and date. Pleasant. Mood is depressed. Affect is constricted. Congruent with mood. Thought process is concrete. Thought content, no suicidal or homicidal ideation. Cognition is intact. Insight and judgment impaired. Assessment/Plan Assessment/Plan: ASSESSMENT: [place] I PTSD. Major depressive disorder. Substance abuse disorder, most likely opiate. PLAN: 1. Continue Lexapro 20 mg in the morning. 2. Remeron 15mg at bedtime. 3. Social service consult. Emely Mcallister MD Jan 10, 2020 23:32
[2020-01-11] VITALS: BP 156/74
[2020-01-11 04:00] VITALS: BP 159/76
[2020-01-11] MEDS: HydrALAZINE 50mg tab ORAL SCH ×2 (06:39→14:13)
--- NOTE | 2020-01-11 07:45 | Progress Note ---
DATE: 01/10/2020 INTERNAL MEDICINE AND CARDIOLOGY PROGRESS NOTE SUBJECTIVE: The patient is status post hemodialysis with ultrafiltration yesterday. She is trying to arrange transportation to dialysis for her session on Friday, , and Friday upon return home. She complains of anxiety and weakness. She is ambulatory based on assessment by nursing staff. PHYSICAL EXAMINATION: VITAL SIGNS: Blood pressure 154/72, heart rate 89, respiratory rate 19. LUNGS: Clear. CARDIAC: Regular. Normal S1, S2. There is a fourth heart sound. ABDOMEN: Soft. EXTREMITIES: No edema and no noted asterixis today. IMPRESSION: 1. End-stage renal disease. 2. Resolved hyperkalemia. 3. Noncompliance with regular dialysis sessions resulting in uremia. 4. Hypertensive heart disease now with rising blood pressure trend. 5. Acute on chronic diastolic congestive heart failure, better compensated with ultrafiltration. 6. HIV, stable. PLAN: Advance antihypertensive regimen. Social service assistance with outpatient transportation to dialysis. Discharge planning to follow. Hemodialysis session tomorrow if above completed and clinical parameters remain stable. Nam Barnett M.D. DR: BOUBACAR JOB#: [id number] CC:
[2020-01-11 08:00] VITALS: BP 151/71
[2020-01-11] MEDS: Sensipar 30mg Tab ORAL SCH (09:00)
[2020-01-11] MEDS: Dolutegravir Sodium 50mg tab ORAL SCH (09:00)
[2020-01-11] MEDS: Darunavir 600mg tab ORAL SCH (09:00)
[2020-01-11] MEDS: Docusate 100mg cap ORAL SCH ×2 (09:00→12:22)
[2020-01-11] MEDS: HYDROcodone/Acetamin 5/325 tab ORAL PRN (09:19)
--- NOTE | 2020-01-11 09:35 | Nephrology Progress Note ---
Assessment/Plan Problem List: (1) Hyperkalemia (2) ESRD (end stage renal disease) on dialysis (3) HIV disease (4) Substance abuse Assessment End-stage renal disease, presents with serum potassium of 7.9. Missed at least one dialysis treatment Patient has cocaine and narcotics in urine tox screen. Anemia, most likely due to chronic kidney disease Hypertensive kidney disease, hypertension [id number] HCV HIV Plan January 10: Currently on hemodialysis, tolerating well. Discharge planning in process after dialysis. Patient advised to be compliant with her dialysis sessions. Hemodialysis done January 06, due for dialysis today January 08. Next hemodialysis January 10 blood pressure seems to be much better in control. BP control, medication adjusted ID eval, for HIV medication management Per orders Subjective ROS Limited/Unobtainable: No Constitutional: Reports: malaise Objective Objective Last 24 Hour Vital Signs Date Time Temp Pulse Resp B/P (MAP) Pulse Ox O2 Delivery O2 Flow Rate FiO2 01/11/20 09:00 151/71 01/11/20 09:00 69 151/71 01/11/20 08:00 99.1 69 18 151/71 (97) 94 01/11/20 06:39 154/71 01/11/20 04:00 74 01/11/20 04:00 97.1 71 19 159/76 (103) 95 01/11/20 00:00 77 01/11/20 00:00 99.8 76 19 156/74 (101) 97 01/10/20 21:09 164/81 01/10/20 21:00 Room Air 01/10/20 20:00 99.5 77 18 164/81 (108) 94 01/10/20 20:00 89 01/10/20 17:34 97.6 01/10/20 16:00 84 01/10/20 16:00 97.6 79 20 159/82 (107) 96 01/10/20 14:18 146/81 01/10/20 12:00 89 01/10/20 12:00 98.4 79 19 154/72 (99) 98 01/10/20 09:59 Room Air Intake and Output 01/10/20 01/11/20 19:00 07:00 Intake Total 140 ml 200 ml Output Total 1400 ml Balance -1260 ml 200 ml Intake Oral 140 ml 200 ml Output Urine Total 1400 ml # Voids 3 # Bowel Movements 1 Current Medications Medications (Trade) Dose Ordered Sig/Rochelle Route PRN Reason Start Time Stop Time Status Last Admin Dose Admin Acetaminophen/ Hydrocodone Bitart ([place] 5/325) 1 tab Q6H PRN ORAL For Pain 01/08/20 22:30 01/14/20 22:29 01/11/20 09:19 Alprazolam (Xanax) 1 mg THREE TIMES A DAY PRN ORAL For Anxiety 01/09/20 18:45 01/16/20 18:44 01/10/20 12:40 Amlodipine Besylate (Norvasc) 10 mg DAILY ORAL 01/09/20 09:00 02/06/20 14:59 01/10/20 08:32 Cinacalcet (Sensipar) 30 mg DAILY ORAL 01/09/20 09:00 04/07/20 08:59 01/10/20 08:32 Clonidine HCl (Catapres Tab) 0.1 mg Q4H PRN ORAL bp over 170 syst 01/08/20 17:00 04/06/20 16:59 Clonidine HCl (Catapres Tab) 0.1 mg TID ORAL 01/11/20 09:00 04/10/20 08:59 Darunavir (Prezista) 600 mg TWICE A DAY ORAL 01/08/20 18:00 02/07/20 11:29 01/10/20 17:04 Docusate Sodium (Colace) 100 mg THREE TIMES A DAY ORAL 01/08/20 18:00 02/06/20 17:59 01/10/20 08:31 Dolutegravir Sodium (Tivicay) 50 mg DAILY ORAL 01/09/20 09:00 04/07/20 11:29 01/10/20 08:33 Escitalopram Oxalate (Lexapro) 20 mg DAILY ORAL 01/09/20 09:00 02/07/20 08:59 01/10/20 08:32 Folic Acid (Folate) 2 mg DAILY ORAL 01/09/20 09:00 02/07/20 11:29 01/10/20 08:32 Hydralazine HCl (Apresoline) 50 mg Q8HR ORAL 01/08/20 22:00 04/06/20 21:59 01/11/20 06:39 Lidocaine (Lidoderm 5% PATCH) 1 patch Q24H TDERMAL 01/08/20 21:00 04/06/20 20:59 Mirtazapine (Remeron) 15 mg BEDTIME ORAL 01/08/20 22:00 04/07/20 21:59 01/10/20 21:09 Pantoprazole (Protonix) 40 mg EVERY 12 HOURS ORAL 01/08/20 21:00 02/06/20 20:59 01/10/20 21:09 Sennosides (Senokot) 8.6 mg DAILYPRN PRN ORAL Constipation 01/08/20 17:00 02/07/20 16:59 Sevelamer Carbonate (Renvela) 2,400 mg THREE TIMES A DAY ORAL 01/09/20 13:00 04/06/20 17:59 01/10/20 17:03 No labs drawn today Height (Feet): 5 Height (Inches): 8.00 Weight (Pounds): 169 General Appearance: no apparent distress Cardiovascular: normal rate Respiratory/Chest: decreased breath sounds Abdomen: soft Jack Pryor MD Jan 11, 2020 09:35
--- NOTE | 2020-01-11 10:53 | Infectious Diseases Prog Note ---
Assessment/Plan Assessment/Plan antibiotics : ARV A 1. Fever is resolved. 2. HIV. 3. Hepatitis C. 4. Diabetes. 5. Hypertension. 6. Renal failure, on dialysis. P 1. Continue antiretrovirals. 2. We will follow up the patient clinically. Subjective Constitutional: Denies: fever, chills Respiratory: Denies: shortness of breath, dry cough Gastrointestinal/Abdominal: Denies: nausea, vomiting, diarrhea Musculoskeletal: Denies: pain Allergies: Coded Allergies: IODINE (Verified Allergy, Unknown, 01/07/20) Uncoded Allergies: CONTRAST DYE (Allergy, Unknown, 01/07/20) Objective Vital Signs Last 24 Hour Vital Signs Date Time Temp Pulse Resp B/P (MAP) Pulse Ox O2 Delivery O2 Flow Rate FiO2 01/11/20 09:49 99.1 01/11/20 09:00 151/71 01/11/20 09:00 69 151/71 01/11/20 08:00 99.1 69 18 151/71 (97) 94 01/11/20 08:00 73 01/11/20 06:39 154/71 01/11/20 04:00 74 01/11/20 04:00 97.1 71 19 159/76 (103) 95 01/11/20 00:00 77 01/11/20 00:00 99.8 76 19 156/74 (101) 97 01/10/20 21:09 164/81 01/10/20 21:00 Room Air 01/10/20 20:00 99.5 77 18 164/81 (108) 94 01/10/20 20:00 89 01/10/20 16:00 84 01/10/20 16:00 97.6 79 20 159/82 (107) 96 01/10/20 14:18 146/81 01/10/20 12:00 89 01/10/20 12:00 98.4 79 19 154/72 (99) 98 Height (Feet): 5 Height (Inches): 8.00 Weight (Pounds): 169 Respiratory/Chest: lungs clear Cardiovascular: normal rate, regular rhythm, no gallop/murmur Abdomen: soft, non tender Extremities: no edema Current Medications Medications (Trade) Dose Ordered Sig/Rochelle Route PRN Reason Start Time Stop Time Status Last Admin Dose Admin Acetaminophen/ Hydrocodone Bitart (Karval 5/325) 1 tab Q6H PRN ORAL For Pain 01/08/20 22:30 01/14/20 22:29 01/11/20 09:19 Alprazolam (Xanax) 1 mg THREE TIMES A DAY PRN ORAL For Anxiety 01/09/20 18:45 01/16/20 18:44 01/10/20 12:40 Amlodipine Besylate (Norvasc) 10 mg DAILY ORAL 01/09/20 09:00 02/06/20 14:59 01/10/20 08:32 Cinacalcet (Sensipar) 30 mg DAILY ORAL 01/09/20 09:00 04/07/20 08:59 01/10/20 08:32 Clonidine HCl (Catapres Tab) 0.1 mg Q4H PRN ORAL bp over 170 syst 01/08/20 17:00 04/06/20 16:59 Clonidine HCl (Catapres Tab) 0.1 mg TID ORAL 01/11/20 09:00 04/10/20 08:59 Darunavir (Prezista) 600 mg TWICE A DAY ORAL 01/08/20 18:00 02/07/20 11:29 01/10/20 17:04 Docusate Sodium (Colace) 100 mg THREE TIMES A DAY ORAL 01/08/20 18:00 02/06/20 17:59 01/10/20 08:31 Dolutegravir Sodium (Tivicay) 50 mg DAILY ORAL 01/09/20 09:00 04/07/20 11:29 01/10/20 08:33 Escitalopram Oxalate (Lexapro) 20 mg DAILY ORAL 01/09/20 09:00 02/07/20 08:59 01/10/20 08:32 Folic Acid (Folate) 2 mg DAILY ORAL 01/09/20 09:00 02/07/20 11:29 01/10/20 08:32 Hydralazine HCl (Apresoline) 50 mg Q8HR ORAL 01/08/20 22:00 04/06/20 21:59 01/11/20 06:39 Lidocaine (Lidoderm 5% PATCH) 1 patch Q24H TDERMAL 01/08/20 21:00 04/06/20 20:59 Mirtazapine (Remeron) 15 mg BEDTIME ORAL 01/08/20 22:00 04/07/20 21:59 01/10/20 21:09 Pantoprazole (Protonix) 40 mg EVERY 12 HOURS ORAL 01/08/20 21:00 02/06/20 20:59 01/10/20 21:09 Sennosides (Senokot) 8.6 mg DAILYPRN PRN ORAL Constipation 01/08/20 17:00 02/07/20 16:59 Sevelamer Carbonate (Renvela) 2,400 mg THREE TIMES A DAY ORAL 01/09/20 13:00 04/06/20 17:59 01/10/20 17:03 Elvis Garibay MD Jan 11, 2020 10:53
[2020-01-11 12:00] VITALS: BP 157/76
[2020-01-11] MEDS: ALPRAZolam 0.5mg tab ORAL PRN (12:22)
[2020-01-11 14:13] VITALS: BP 154/74
--- NOTE | 2020-01-11 23:19 | Psych Consult Progress Note ---
Psychiatry Progress Note Psychiatry Progress Note Neurological/Psychiatric: Reports: anxiety, depressed, emotional problems Allergies: Coded Allergies: IODINE (Verified Allergy, Unknown, 01/07/20) Uncoded Allergies: CONTRAST DYE (Allergy, Unknown, 01/07/20) Objective Data Height (Feet): 5 Height (Inches): 8.00 Weight (Pounds): 169 General Appearance: WD/WN, alert, moderate distress, alert oriented x3 Additional Comments: Alert and oriented times self, place, situation, and date. Pleasant. Mood is depressed. Affect is constricted. Congruent with mood. Thought process is concrete. Thought content, no suicidal or homicidal ideation. Cognition is intact. Insight and judgment impaired. Assessment/Plan Assessment/Plan: ASSESSMENT: Granton I PTSD. Major depressive disorder. Substance abuse disorder, most likely opiate. PLAN: 1. Continue Lexapro 20 mg in the morning. 2. Remeron 15mg at bedtime. 3. Social service consult. 4. Emely Pastor MD Jan 11, 2020 23:19
--- NOTE | 2020-01-12 06:30 | Progress Note ---
DATE: 01/11/2020 INTERNAL MEDICINE PROGRESS NOTE SUBJECTIVE: The patient is status post hemodialysis with ultrafiltration this morning, no complications noted. She feels weak but is able to mobilize without difficulty. PHYSICAL EXAMINATION: VITAL SIGNS: Blood pressure 157/76, pulse 89, respiratory rate 18. LUNGS: Clear. CARDIAC: Regular. Normal S1 and S2 with a fourth heart sound. ABDOMEN: Soft. EXTREMITIES: No edema. IMPRESSION: Stable for outpatient management. PLAN: Discharge medications called into pharmacy. MEDICATIONS: His discharge medication regimen included alprazolam one b.i.d., amlodipine 10 daily, Sensipar 30 daily, clonidine 0.1 t.i.d., Prezista 600 b.i.d., Tivicay daily, Lexapro 20 daily, folic acid 20 daily, hydralazine 50 t.i.d., Lidoderm patch daily, pantaprazole 40 daily, Renvela 2400 t.i.d. with meals. Discharge summary will follow. The patient was arranged transportation to dialysis three times a week at her usual dialysis Center and outpatient internal medicine followup was scheduled at my office. Nam Barnett M.D. DR: Katherine JOB#: [id number] CC:
--- NOTE | 2020-01-12 17:11 | Discharge Summary ---
Discharge Summary Discharge Summary _ Discharge summary DATE OF ADMISSION: 01/07/2020 DATE OF DISCHARGE: 01/11/2020 DISCHARGED BY: REASON FOR ADMISSION: 69 years old female with past medical history of HIV, diabetes mellitus type 2, hypertension, end-stage renal disease on dialysis, depression, degenerative disc disease, hepatitis C, missed dialysis and came to emergency room for evaluation due to shortness of breath. Patient also reported ground-level fall while walking back to her room from the bathroom. She denied head injury , loss of consciousness . Patient was not on any anticoagulation. She reported midline back pain radiating around the right side and across the right thigh. She denied any numbness or tingling, and was able to move lower extremities, but stated that she did not have a strength to stand up. She denied prior history of back injury or surgery. Patient is still grieving the of her son , dueto shooting last year. Upon evaluation potassium 7.9. BUN67, creatinine 18.1. Troponin 0.006. EKG revealed sinus rhythm with first-degree AV block with peaked T waves. Blood pressure 193/[address] CT scan of the lumbar spine revealed no evidence of acute osseous abnormality. X-ray of the right shoulder reveal no definite acute fracture or dislocation. Chest x-ray revealed no acute cardiopulmonary pathology. Urine toxicology screen was positive for benzodiazepine and cocaine. Hyperkalemia was treated in ER. Patient subsequently admitted to telemetry floor for further management CONSULTANTS: ID specialist Dr. Garibay manager philosophy Dr. Pryor psychiatrist [facility]SE: Patient admitted to telemetry floor. Emergent hemodialysis with ultrafiltration was arranged as per manager philosophy. Volumes and renal parameters were closely monitored, electrolytes corrected as needed. Antihypertensive medications were titrated to bring blood pressure under control. Blood pressures improved , and prior to discharge 154/74. Blood pressure was treated with calcium channel lamar , hydralazine and clonidine. Echocardiogram revealed preserved ejection fraction of 60% with no evidence of left ventricular hypertrophy. No evidence of pericardial clinically effusion. No evidence of wall motion abnormalities. Right ventricular systolic pressure of 72 consistent with severe pulmonary hypertension. Moderate tricuspid regurgitation. GI prophylaxis provided. Bowel regimen instituted. Hemoglobin and hematocrit were closely monitored with goal to keep hemoglobin above 7. Hemoglobin and hematocrit remained at the baseline , and prior to discharge hemoglobin 8.8, hematocrit 25.9. ID specialist followed. Low grade fevers resolved. Patient's antiretroviral continued. No known CD4 count or viral load. Patient was working with physical therapist. Fall precautions maintained. Psychiatrist followed. Psychiatric medication regimen was optimized. remelt worker met with patient . Patient was provided with list of outpatient mental health clinica. Patient insisted on discharge home with home health services. Patient clinically stabilized and was ready for discharge. FINAL DIAGNOSES: Hyperkalemia End-stage renal disease with missed hemodialysis Uremia due to missed dialysis session Cocaine intoxication and abuse Hypertensive urgency Hypertensive heart disease Hypertensive kidney disease Anemia of chronic kidney disease HIV Hepatitis C PTSD Major depressive disorder Substance abuse disorder most likely opiate DISCHARGE MEDICATIONS: See Medication Reconciliation list. DISCHARGE INSTRUCTIONS: Patient was discharged home with home health services. Follow up with primary care provider in one week. I have been assigned to dictate discharge summary for this account. I was not involved in the patient's management. Soila Jaffe NP Jan 12, 2020 17:11
== END 2020-01-11 15:10 | disposition home health service (06) | DRG 640 ==
LOC: EDBD 03:04 → EMR 04:17 → 2W 06:56 → EDBEDREQ 07:26 → EDBEDREQSVC 07:26 → EDBEDREQ 08:44 → 2W 17:30 → 2E 01-08 16:49
PROC: 5A1D70Z Performance of Urinary Filtration, Intermittent, Less than 6 Hours Per Day (ICD-10-PCS; principal; 2020-01-11)
DX: E87.5 Hyperkalemia (principal); N18.6 End stage renal disease; I50.33 Acute on chronic diastolic (congestive) heart failure; I13.2 Hypertensive heart and chronic kidney disease with heart failure and with stage 5 chronic kidney disease, or end stage renal disease; R27.8 Other lack of coordination; F14.129 Cocaine abuse with intoxication, unspecified; I16.0 Hypertensive urgency; D63.8 Anemia in other chronic diseases classified elsewhere; Z91.041 Radiographic dye allergy status; Z99.2 Dependence on renal dialysis; Z86.19 Personal history of other infectious and parasitic diseases; D69.6 Thrombocytopenia, unspecified; I27.20 Pulmonary hypertension, unspecified; I36.1 Nonrheumatic tricuspid (valve) insufficiency; F43.10 Post-traumatic stress disorder, unspecified; F32.9 Major depressive disorder, single episode, unspecified; F11.10 Opioid abuse, uncomplicated; E11.65 Type 2 diabetes mellitus with hyperglycemia; Z87.891 Personal history of nicotine dependence; R00.0 Tachycardia, unspecified; Z91.15 Patient's noncompliance with renal dialysis
CPT/HCPCS: 36415; 71045; 72131; 80053; 80061; 80307; 82607; 82728; 82746; 82962; 82977; 83540; 83550; 83735; 83880; 84100; 84443; 84484; 84550; 85007; 85025; 85610; 86140; 86706; 87081; 93005; 93306; 96372; 96374; 96375; 99285

== ENCOUNTER 2020-01-16 13:56 | Inpatient (IN) | payer MEDICARE ==
[~2020-01-16] VITALS: Ht 167.6 cm; Wt 72.1 kg
[~2020-01-16 13:56] MED LIST changes: +ALPRAZOLAM1 M2 ORAL; +AMLODIPINE BESY10 MG ORAL; +HYDROCODON-ACE1 EA16 ORAL; +LEXAPRO20 MG ORAL; +LIDODERM700 M1 TOPIC; +PREZCOBIX 8001 EACH PO; +RENVELA2.4 GM ORAL; +ROBAXIN-750750 MG PO; +TIVICAY50 MG ORAL; +TYLENOL EXTRA500 MG ORAL
[2020-01-16] MEDS ORDERED: Morphine Sulfate 4mg/ml Inj (IV USE ONLY) IVP ONE (14:15)
[2020-01-16] MEDS ORDERED: Pantoprazole Inj IV ONE (14:15)
[2020-01-16 14:30] VITALS: BP 153/79
--- NOTE | 2020-01-16 14:32 | Emergency Room Report ---
History of Present Illness General Chief Complaint: Chest Pain Source: Patient, EMS Present Illness HPI Patient presents with chief complaint of chest pain. She is a dialysis patient and missed her dialysis yesterday. Pain began on Friday mainly in her right shoulder. She is also been passing black stools and diarrhea. She denies any shortness of breath or fever. She has had mild cough without productive phlegm. She has some diffuse abdominal pain. She is taking a blood thinner for atrial fibrillation. She rates the pain 10/10 and says it is pleuritic and also when she moves her right shoulder. It does not radiate. The abdominal discomfort is less. Patient has dialysis Tuesdays and Saturdays. She is diabetic. She also has history of HIV positive. No fevers, chills, sore throat, palpitations, nausea, vomiting, diarrhea, dysuria, rashes, visual changes, dizziness, headache. Allergies: Coded Allergies: ASPIRIN (Unverified Allergy, Unknown, 01/16/20) IODINE (Verified Allergy, Unknown, 01/07/20) Uncoded Allergies: CONTRAST DYE (Allergy, Unknown, 01/07/20) COVID-19 Screening Contact w/high risk pt: No Recent Travel to affected area: No Experienced COVID-19 symptoms?: Yes COVID-19 symptoms experienced: Cough, Flu-Like Symptoms COVID-19 Testing performed MANAGER RELIABILITY: No Patient History Past Medical History: see triage record Social History: Reports: drug use - Cocaine; Denies: smoking, alcohol use Social History Narrative From home Last Menstrual Period: na Now: No Reviewed Nursing Documentation: PMH: Agreed; PSxH: Agreed Nursing Documentation-PMH Hx Hypertension: Yes Hx Diabetes: Yes Hx Cancer: No Hx Dialysis: Yes - HD t//fri CKD Hx Seizures: No Review of Systems All Other Systems: negative except mentioned in HPI Physical Exam Vital Signs Date Time Temp Pulse Resp B/P (MAP) Pulse Ox O2 Delivery O2 Flow Rate FiO2 01/16/20 13:50 97.0 74 16 173/84 (113) 95 Room Air Sp02 EP Interpretation: reviewed, normal General Appearance: well appearing, no apparent distress, GCS 15, non-toxic Head: normocephalic Eyes: bilateral eye PERRL, bilateral eye conjunctivae pale ENT: other - mask Neck: supple Respiratory: chest non-tender, lungs clear, normal breath sounds, other - Vas- Cath right Cardiovascular #1: no edema, irregularly irregular Cardiovascular #2: 2+ radial (L) Gastrointestinal: normal inspection, normal bowel sounds, no mass, non- distended, no rebound, guarding - minimal, tenderness - diffuse and RUQ Rectal: heme positive stool - dark, almost melena Musculoskeletal: back normal, normal range of motion, no calf tenderness, moves extm spontaneously, gait/station normal, other - no shoulder tenderness Neurologic: alert, oriented x3, grossly normal Psychiatric: mood/affect normal Skin: no rash, warm/dry, pallor Procedures Critical Care Time Critical Care Time Total Critical Care Time: 45 min bedside evaluation and treatment excludes procedures (EKG). Reason for critical care: active GI bleed on anticoagulation, critical anemia, chest pain, hyperkalemia Possible complications: hypotension, hypertension, CT, shock, arrhythmias, metabolic acidosis, end organ damage, respiratory failure. Interventions: treatment of pain, pantoprazole, blood transfusion, treatment of hyperkalemia Course: Patient presented with R chest pain h/o ESRD. Also c/o dark stool/ diarrhea with some abdominal pain. Missed dialysis. Stool guaiac +. Critical low H/H. Blood ordered. Critical high potassium. Aggressive treatment of high potassium ordered. Repeat evaluation with improvement of pain and discussion of blood transfusion. Blood transfusion begun and tolerated well. Consultations: nursing staff, EMS, admitting MD and dialysis MD. Performed by: Dr. Still Tolerated well condition = critical Medical Decision Making Diagnostic Impression: Primary Impression: Gastrointestinal bleeding Qualified Codes: K92.1 - Melena Additional Impressions: ESRD (end stage renal disease) on dialysis Chest pain Qualified Codes: R07.89 - Other chest pain Hyperkalemia Cocaine abuse ER Course Patient presents with chest pain and black tarry stools with a history of atrial fibrillation on blood thinner and dialysis. Differential includes acute myocardial infarction, pleuritic chest pain, pulmonary embolus, referred pain from abdomen, GI bleed on anticoagulation, peptic ulcer disease pancreatitis amongst others. Evaluation with EKG, chest x-ray, abdominal film and labs. The patient will be treated with Protonix and analgesia with Zofran. Based on the patient's history and vital signs and the fact that she is taking anticoagulation pulmonary embolus is less likely. The patient is placed in isolation due to the possibility of COVID-19 infection. COVID-19 testing will be performed. Stool dark and guaiac +. EKG atrial fibrillation no acute changes rat chest x-ray es 76. Vascular congestion mild with Vas-Cath right. Called Hgb 4. Ordered blood transfusion. Potassium critically high. Treatment of hyperkalemia instituted. Elevated BUN and creatinine. Tox screen positive for benzodiazepines and cocaine. Transfusion begun after treatment of hyperkalemia. Patient without reaction. The pain is improved. Patient evaluated by Dr. Pryor. Laboratory Tests Test 01/16/20 13:18 01/16/20 14:55 01/16/20 15:18 Urine Color Pale yellow Urine Appearance Slightly cloudy Urine pH 8 (4.5-8.0) Urine Specific [place] 1.010 (1.005-1.035) Urine Protein 3+ (NEGATIVE) H Urine Glucose (UA) Negative (NEGATIVE) Urine Ketones Negative (NEGATIVE) Urine Blood 1+ (NEGATIVE) H Urine Nitrite Negative (NEGATIVE) Urine Bilirubin Negative (NEGATIVE) Urine Urobilinogen Normal MG/DL (0.0-1.0) Urine Leukocyte Esterase 1+ (NEGATIVE) H Urine RBC 2-4 /HPF (0 - 2) H Urine WBC 5-10 /HPF (0 - 2) H Urine Squamous Epithelial Cells Moderate /LPF (NONE/OCC) H Urine Bacteria Few /HPF (NONE) White Blood Count 4.1 K/UL (4.8-10.8) L Red Blood Count 1.40 M/UL (4.20-5.40) L Hemoglobin 4.4 G/DL (12.0-16.0) *L Hematocrit 14.3 % (37.0-47.0) L Mean Corpuscular Volume 102 FL (80-99) H Mean Corpuscular Hemoglobin 31.4 PG (27.0-31.0) H Mean Corpuscular Hemoglobin Concent 30.8 G/DL (32.0-36.0) L Red Cell Distribution Width 14.4 % (11.6-14.8) Platelet Count 127 K/UL (150-450) L Mean Platelet Volume 6.1 FL (6.5-10.1) L Neutrophils (%) (Auto) % (45.0-75.0) Lymphocytes (%) (Auto) % (20.0-45.0) Monocytes (%) (Auto) % (1.0-10.0) Eosinophils (%) (Auto) % (0.0-3.0) Basophils (%) (Auto) % (0.0-2.0) Differential Total Cells Counted 100 Neutrophils % (Manual) 58 % (45-75) Lymphocytes % (Manual) 39 % (20-45) Monocytes % (Manual) 2 % (1-10) Eosinophils % (Manual) 1 % (0-3) Basophils % (Manual) 0 % (0-2) Band Neutrophils 0 % (0-8) Platelet Estimate Decreased L Platelet Morphology Normal Hypochromasia 3+ Anisocytosis 1+ Microcytosis 1+ Prothrombin Time 11.4 SEC (9.30-11.50) Prothrombin Time INR 1.0 (0.9-1.1) Activated Partial Thromboplast Time 27 SEC (23-33) Sodium Level 133 MMOL/L (136-145) L Potassium Level 8.2 MMOL/L (3.5-5.1) *H Chloride Level 99 MMOL/L (98-107) Carbon Dioxide Level 21 MMOL/L (21-32) Anion Gap 13 mmol/L (5-15) Blood Urea Nitrogen 145 mg/dL (7-18) H Creatinine 16.8 MG/DL (0.55-1.30) H Estimated Glomerular Filtration Rate 2.7 mL/min (>60) Glucose Level 98 MG/DL (74-106) Calcium Level 7.6 MG/DL (8.5-10.1) L Total Bilirubin 0.5 MG/DL (0.2-1.0) Aspartate Amino Transferase (AST) 33 U/L (15-37) Alanine Aminotransferase (ALT) 21 U/L (12-78) Alkaline Phosphatase 50 U/L (46-116) Total Creatine Kinase 115 U/L (26-308) Troponin I 0.000 ng/mL (0.000-0.056) C-Reactive Protein, Quantitative < 0.4 mg/dL (0.00-0.90) Pro-B-Type Natriuretic Peptide 92647 pg/mL (0-125) H Total Protein 8.0 G/DL (6.4-8.2) Albumin 3.1 G/DL (3.4-5.0) L Globulin 4.9 g/dL Albumin/Globulin Ratio 0.6 (1.0-2.7) L Lipase 275 U/L (73-393) Urine Opiates Screen Negative (NEGATIVE) Urine Barbiturates Screen Negative (NEGATIVE) Phencyclidine (PCP) Screen Negative (NEGATIVE) Urine Amphetamines Screen Negative (NEGATIVE) Urine Benzodiazepines Screen Positive (NEGATIVE) H Urine Cocaine Screen Positive (NEGATIVE) H Urine Marijuana (THC) Screen Negative (NEGATIVE) EKG Diagnostic Results Rate: normal Rhythm: other - Atrial fibrillation ST Segments: no acute changes Rhythm Strip Diag. Results EP Interpretation: yes Rhythm: no PVC's, no ectopy, other - Atrial fibrillation rate 76 Chest X-Ray Diagnostic Results Chest X-Ray Diagnostic Results : Chest X-Ray Ordered: Yes # of Views/Limited/Complete: 1 View Indication: Chest Pain EP Interpretation: Yes Interpretation: no consolidation, no effusion, no pneumothorax, other - vascath R, some congestion Impression: Other Last Vital Signs Date Time Temp Pulse Resp B/P (MAP) Pulse Ox O2 Delivery O2 Flow Rate FiO2 01/17/20 00:00 98.1 72 18 158/70 (99) 97 01/16/20 21:00 Room Air 01/16/20 16:28 21 Status: improved Disposition: ADMITTED INPATIENT Condition: Critical Nam Still MD Jan 16, 2020 14:32
[2020-01-16 15:32] LABS: HEMATOCRIT 14.3 % (37.0-47.0); MEAN CORPUSCULAR VOLUME 102 FL (80-99); PLATELET COUNT 127 K/UL (150-450); RED CELL DISTRIBUTION WIDTH 14.4 % (11.6-14.8); WHITE BLOOD COUNT 4.1 K/UL (4.8-10.8)
[2020-01-16 15:42] LABS: BILIRUBIN, URINE NEGATIVE (NEGATIVE); COLOR,URINE PALE YELLOW; GLUCOSE, URINE (UA) NEGATIVE (NEGATIVE); KETONES,URINE NEGATIVE (NEGATIVE); LEUKOCYTE ESTERASE ,URINE 1+ (NEGATIVE); NITRITE,URINE NEGATIVE (NEGATIVE); PH,URINE 8 (4.5-8.0); PROTEIN,URINE 3+ (NEGATIVE); UROBILINOGEN,URINE NORMAL MG/DL (0.0-1.0)
[2020-01-16 15:42] LABS: HEMOGLOBIN 4.4 G/DL (12.0-16.0)
[2020-01-16 15:44] LABS: APPEARANCE,URINE SLIGHTLY CLOUDY
[2020-01-16 15:57] LABS: ALANINE AMINOTRANSFERASE 21 U/L (12-78); ALBUMIN 3.1 G/DL (3.4-5.0); ALBUMIN/GLOBULIN RATIO 0.6 (1.0-2.7); ALKALINE PHOSPHATASE 50 U/L (46-116); ANION GAP 13 mmol/L (5-15); ASPARTATE AMINO TRANSFERASE 33 U/L (15-37); BILIRUBIN,TOTAL 0.5 MG/DL (0.2-1.0); BLOOD UREA NITROGEN 145 mg/dL (7-18); CALCIUM 7.6 MG/DL (8.5-10.1); CARBON DIOXIDE 21 MMOL/L (21-32); CHLORIDE 99 MMOL/L (98-107); CREATINE KINASE 115 U/L (26-308); CREATININE 16.8 MG/DL (0.55-1.30); SODIUM 133 MMOL/L (136-145)
[2020-01-16 16:02] LABS: POTASSIUM 8.2 MMOL/L (3.5-5.1)
--- NOTE | 2020-01-16 16:05 | Diagnostic Imaging Report ---
EXAM: XR Abdomen, 2 Views CLINICAL HISTORY: ABD PAIN TECHNIQUE: Frontal view of the abdomen/pelvis with upright view of the abdomen. COMPARISON: No relevant prior studies available. FINDINGS: Intraperitoneal space: No free air. Gastrointestinal tract: Unremarkable. No dilation. Bones/joints: Unremarkable. IMPRESSION: Normal abdominal x-rays.
--- NOTE | 2020-01-16 16:06 | Diagnostic Imaging Report ---
EXAM: XR Chest, 1 View CLINICAL HISTORY: ABD PAIN TECHNIQUE: Frontal view of the chest. COMPARISON: 01/07/2020. FINDINGS: Lungs: Pulmonary venous congestion without overt edema, improved from the prior. Pleural space: No pleural effusion. No pneumothorax. Heart: Cardiomegaly. Bones/joints: Unremarkable. Tubes, lines and devices: Unchanged position of the right IJ dialysis catheter which terminates within the right atrium. IMPRESSION: 1. Pulmonary venous congestion without overt edema, improved from the prior. 2. Cardiomegaly.
[2020-01-16] MEDS ORDERED: Calcium Gluconate 1gm/10ml vial IVP ONE (16:15)
[2020-01-16] MEDS ORDERED: Sodium Polystyrene Sulfonate 15gm Powder ORAL ONE (16:15)
[2020-01-16] MEDS ORDERED: Sodium Bicarbonate 50ml Carp IV ONE (16:15)
[2020-01-16] MEDS ORDERED: Albuterol ud Inhalation HHN ONE (16:15)
[2020-01-16] MEDS ORDERED: Insulin Human Regular 100units/ml 3ml IV ONE (16:15)
[2020-01-16] MEDS ORDERED: Albuterol 90mcg Inhaler 8gm INH STA (16:20)
[2020-01-16] MEDS ORDERED: Morphine Sulfate 4mg/ml Inj (IV USE ONLY) IVP STA (16:35)
[2020-01-16 17:00] VITALS: BP 172/100
--- NOTE | 2020-01-16 18:48 | Consultation ---
Consult Note Consult Note I am asked to evaluate the patient at the request of Dr. Barnett for dialysis management. Patient is known to me from her previous admission. She was admitted January 06 and discharged January 10 , which is 5 days ago from [facility]. Patient is 69-year-old female who presents to emergency room with chief complaint of chest pain. Patient apparently was due for dialysis yesterday however she missed her dialysis yesterday. Patient has been passing black stools and diarrhea. Patient has mild cough which is productive. Patient has diffuse abdominal pain. Patient is taking blood thinners for atrial fibrillation. Allergies are to aspirin iodine and contrast dye. COVID-19 is screening is positive for symptoms which she is cough and flulike symptoms otherwise negative with regard to the risk travel and test. Past history significant for hypertension and diabetes mellitus. On examination the patient is alert and oriented pale is being transfused blood pressure is 173/84 respiratory rate is 18 pulse rate is 74 patient is afebrile No wheeze decreased breath sound over the bases Heart regular with occasional irregular beats Abdomen slightly distended mild generalized tenderness Moves all extremities Laboratory data significant for hemoglobin of 4.4 and serum potassium of 8.2 . Assessment/Plan This 69-year-old with end-stage renal disease, missed dialysis yesterday, presents with chest pain, has significantly low hemoglobin and evidence of upper GI bleed due to having tarry black stool. Patient is on anticoagulation for atrial fibrillation. (1) Hyperkalemia, serum potassium of 8.2 (2) ESRD (end stage renal disease) on dialysis, missed her dialysis yesterday (3) HIV disease (4) Substance abuse, previously had narcotics and cocaine in urine tox screen (5)Severe anemia due to GI bleed which appears to be from the upper side since the patient has tarry black stool indicative of digested blood (6)History of HCV (7) History of hypertensive kidney disease Plan: Discussed with RN Don Stat dialysis for hyperkalemia ordered Patient is being transfused We will keep n.p.o., IV Protonix Continue per consultants Keep the blood pressure in check I spent an additional 36 minutes on review of medical records including prior hospital records,consult notes, progress notes, procedures ,imaging labs, hemodynamics, and other clinical documentation. Over 35 min Jack Pryor MD Jan 16, 2020 18:48
[2020-01-16] MEDS ORDERED: Pantoprazole Inj IVP SCH (19:30)
[2020-01-16 20:00] VITALS: BP 176/77
[2020-01-16] MEDS: NovoLOG Insulin Flexpen SUBQ SCH (21:00)
--- NOTE | 2020-01-16 21:44 | History and Physical Report ---
DATE OF ADMISSION: 01/16/2020 REASON FOR ADMISSION: Hyperkalemia and severe anemia due to GI bleeding. HISTORY OF PRESENT ILLNESS: This is a 69-year-old female with end-stage renal disease who was hospitalized here about a week ago with hyperkalemia due to noncompliance with dialysis sessions. She was stabilized medically and discharged home with dialysis resumption confirmed including transportation at her usual center. The patient attended 1 dialysis session, but missed the subsequent 1, which was yesterday. Today, she complained of black stools and diarrhea. No nausea or vomiting. No loss of consciousness or shortness of breath. She has had a nonproductive cough. She was COVID-19 negative here last week. She does take a blood thinner for atrial fibrillation and has noted dark stools. In the emergency room, she was significantly hyperkalemic and anemic prompting hospitalization. PAST MEDICAL HISTORY: 1. Paroxysmal atrial fibrillation. 2. End-stage renal disease. 3. Hypertensive heart disease. 4. Type 2 diabetes mellitus. 5. Depression. 6. HIV positive. 7. Hepatitis C positive. ALLERGIES: Include aspirin and iodine contrast dye. MEDICATIONS: Prior to admission, reviewed and reconciled. Compliance is not confirmed. SOCIAL HISTORY: She does have a history of cocaine use and had a positive cocaine screen last week. She denies alcohol or smoking. REVIEW OF SYSTEMS: A 10-point review of systems performed. All systems negative other than noted above. PHYSICAL EXAMINATION: VITAL SIGNS: Blood pressure 173/84, heart rate 74, respirations 16, afebrile. HEENT: Pale conjunctivae. Oropharynx clear. NECK: Supple. Jugular venous pressure normal. LUNGS: Clear. CARDIAC: Irregularly irregular. Normal S1, S2. A 1/6 systolic murmur at apex. ABDOMEN: Soft. EXTREMITIES: No edema. LABORATORY DATA: White count 4.1, hemoglobin 4.4, platelet count 127. Sodium 133, potassium 8.2, bicarb 21, BUN 145, creatinine 16.8. Troponin 0. Albumin 3.1. Pro-natriuretic peptide over 12,000. INR 1. Urinalysis 5 to 10 white cells, few bacteria. EKG with atrial fibrillation at 76 beats per minute and nonspecific ST-T wave change. IMPRESSION: 1. Severe anemia due to acute GI blood loss. 2. Coagulopathy due to exogenous anticoagulant. 3. Paroxysmal atrial fibrillation. 4. Hyperkalemia due to missed dialysis sessions. 5. End-stage renal disease. 6. Hypertensive heart disease. 7. Type 2 diabetes mellitus. 8. HIV/AIDS. 9. History of hepatitis C. 10. Recurring noncompliant. 11. Critical and guarded. PLAN: 1. Admit to step-down unit. 2. Place on cardiac monitor technician. 3. Patient has already received hyperkalemic therapy in the emergency room including Kayexalate. 4. Emergent hemodialysis with ultrafiltration will be ordered. 5. Repeat laboratory studies will follow. 6. She has received 1 unit of packed red blood cells and may need additional units during dialysis for hemoglobin range above 7. 7. Anticoagulation will be held. 8. Antihypertensives will be titrated. 9. Insulin coverage will be given by sliding scale. 10. We will hold diet for now and give proton pump inhibitor intravenously. 11. Long-term management may require placement in an assisted living facility due to her repeated noncompliance and hospitalizations. Nam Barnett M.D. DR: MELVIN JOB#: [id number] CC:
[2020-01-16] MEDS: Pantoprazole Inj IVP SCH (22:56)
[2020-01-16] MEDS: Sucralfate 1gm tab ORAL SCH (22:57)
[2020-01-17] VITALS: BP 158/70
[2020-01-17 04:00] VITALS: BP 158/81
[2020-01-17 05:57] LABS: MEAN CORPUSCULAR VOLUME 97 FL (80-99); PLATELET COUNT 122 K/UL (150-450); RED BLOOD COUNT 2.27 M/UL (4.20-5.40); RED CELL DISTRIBUTION WIDTH 15.9 % (11.6-14.8); WHITE BLOOD COUNT 3.4 K/UL (4.8-10.8)
[2020-01-17 06:04] LABS: HEMOGLOBIN 6.9 G/DL (12.0-16.0)
[2020-01-17] MEDS: NovoLOG Insulin Flexpen SUBQ SCH ×4 (06:30→21:00)
[2020-01-17] MEDS ORDERED: NovoLOG Insulin Flexpen SUBQ SCH (06:30)
[2020-01-17 06:41] LABS: ALANINE AMINOTRANSFERASE 37 U/L (12-78); ALBUMIN 2.9 G/DL (3.4-5.0); ALBUMIN/GLOBULIN RATIO 0.6 (1.0-2.7); ALKALINE PHOSPHATASE 55 U/L (46-116); ANION GAP 7 mmol/L (5-15); ASPARTATE AMINO TRANSFERASE 71 U/L (15-37); BILIRUBIN,TOTAL 0.4 MG/DL (0.2-1.0); BLOOD UREA NITROGEN 86 mg/dL (7-18); CALCIUM 7.7 MG/DL (8.5-10.1); CARBON DIOXIDE 31 MMOL/L (21-32); CHLORIDE 102 MMOL/L (98-107); CREATININE 11.7 MG/DL (0.55-1.30); POTASSIUM 4.9 MMOL/L (3.5-5.1); SODIUM 140 MMOL/L (136-145)
[2020-01-17 06:57] LABS: PHOSPHORUS 2.8 MG/DL (2.5-4.9)
[2020-01-17 08:00] VITALS: BP 170/97
[2020-01-17] MEDS ORDERED: Dolutegravir Sodium 50mg tab ORAL SCH (09:00)
[2020-01-17] MEDS ORDERED: Darunavir 600mg tab ORAL SCH (09:00)
[2020-01-17] MEDS: Pantoprazole Inj IVP SCH ×2 (09:54→20:36)
[2020-01-17] MEDS: Sucralfate 1gm tab ORAL SCH ×4 (09:54→20:35)
[2020-01-17] MEDS: Citalopram Hydrobromide 10mg Tab ORAL SCH (09:54)
[2020-01-17] MEDS: ALPRAZolam 0.5mg tab ORAL PRN ×2 (09:54→20:36)
[2020-01-17 10:13] LABS: FERRITIN 796 NG/ML (8-388)
[2020-01-17 10:35] LABS: % IRON SATURATION 110 % (15-50); IRON 182 ug/dL (50-175); TOTAL IRON BINDING CAPACITY 166 ug/dL (250-450)
--- NOTE | 2020-01-17 10:42 | Nephrology Progress Note ---
Assessment/Plan Problem List: (1) ESRD (end stage renal disease) on dialysis (2) Hyperkalemia (3) HIV disease (4) Substance abuse (5) Gastrointestinal bleeding Assessment: Leading to significant anemia (6) HCV antibody positive Assessment This 69-year-old with end-stage renal disease, missed dialysis yesterday, presents with chest pain, has significantly low hemoglobin and evidence of upper GI bleed due to having tarry black stool. Patient is on anticoagulation for atrial fibrillation. (1) Hyperkalemia, serum potassium of 8.2 (2) ESRD (end stage renal disease) on dialysis, missed her dialysis yesterday (3) HIV disease (4) Substance abuse, previously had narcotics and cocaine in urine tox screen (5)Severe anemia due to GI bleed which appears to be from the upper side since the patient has tarry black stool indicative of digested blood (6)History of HCV (7) History of hypertensive kidney disease Plan Stat dialysis for hyperkalemia ordered, and was done today's potassium is within acceptable range Patient was transfused We will keep n.p.o., IV Protonix, or continue per GI advice Continue per consultants Keep the blood pressure in check Discussed with RN Subjective ROS Limited/Unobtainable: No Constitutional: Reports: malaise, weakness Objective Objective Last 24 Hour Vital Signs Date Time Temp Pulse Resp B/P (MAP) Pulse Ox O2 Delivery O2 Flow Rate FiO2 01/17/20 09:55 77 170/97 01/17/20 08:00 98.7 77 19 170/97 (121) 98 01/17/20 08:00 75 01/17/20 04:00 81 01/17/20 04:00 97.9 80 19 158/81 (106) 97 01/17/20 00:00 98.1 72 18 158/70 (99) 97 01/17/20 00:00 75 01/16/20 21:00 Room Air 01/16/20 20:00 98.4 79 20 176/77 (110) 99 01/16/20 20:00 85 01/16/20 19:03 90 170/69 01/16/20 18:25 Room Air 01/16/20 18:00 98.1 90 18 170/69 97 Room Air 01/16/20 17:25 98.2 89 18 01/16/20 17:00 98.0 87 18 172/100 99 Room Air 01/16/20 16:28 75 18 Room Air 21 01/16/20 15:02 97.0 01/16/20 14:30 78 18 Room Air 99 01/16/20 14:30 97.0 78 18 153/79 99 Room Air 01/16/20 13:50 97.0 74 16 173/84 (113) 95 Room Air Intake and Output 01/16/20 01/17/20 19:00 07:00 Intake Total 0 ml Balance 0 ml Intake Oral 0 ml # Bowel Movements 2 Laboratory Tests 01/16/20 13:18: Urine Color Pale yellow, Urine Appearance Slightly cloudy, Urine pH 8, Urine Specific [place] 1.010, Urine Protein 3+H, Urine Glucose (UA) Negative, Urine Ketones Negative, Urine Blood 1+H, Urine Nitrite Negative, Urine Bilirubin Negative, Urine Urobilinogen Normal, Urine Leukocyte Esterase 1+H, Urine RBC 2- 4H, Urine WBC 5-10H, Urine Squamous Epithelial Cells ModerateH, Urine Bacteria Few 01/16/20 14:55: White Blood Count 4.1L, Red Blood Count 1.40L, Hemoglobin 4.4*L, Hematocrit 14.3L, Mean Corpuscular Volume 102H, Mean Corpuscular Hemoglobin 31.4H, Mean Corpuscular Hemoglobin Concent 30.8L, Red Cell Distribution Width 14.4, Platelet Count 127L, Mean Platelet Volume 6.1L, Neutrophils (%) (Auto) , Lymphocytes (%) (Auto) , Monocytes (%) (Auto) , Eosinophils (%) (Auto) , Basophils (%) (Auto) , Differential Total Cells Counted 100, Neutrophils % ( Manual) 58, Lymphocytes % (Manual) 39, Monocytes % (Manual) 2, Eosinophils % ( Manual) 1, Basophils % (Manual) 0, Band Neutrophils 0, Platelet Estimate DecreasedL, Platelet Morphology Normal, Hypochromasia 3+, Anisocytosis 1+, Microcytosis 1+, Prothrombin Time 11.4, Prothromb Time International Ratio 1.0, Activated Partial Thromboplast Time 27, Sodium Level 133L, Potassium Level 8.2*H , Chloride Level 99, Carbon Dioxide Level 21, Anion Gap 13, Blood Urea Nitrogen 145H, Creatinine 16.8H, Estimat Glomerular Filtration Rate 2.7, Glucose Level 98 , Calcium Level 7.6L, Total Bilirubin 0.5, Aspartate Amino Transf (AST/SGOT) 33 , Alanine Aminotransferase (ALT/SGPT) 21, Alkaline Phosphatase 50, Total Creatine Kinase 115, Troponin I 0.000, C-Reactive Protein, Quantitative < 0.4, Pro-B-Type Natriuretic Peptide 74156N, Total Protein 8.0, Albumin 3.1L, Globulin 4.9, Albumin/Globulin Ratio 0.6L, Lipase 275 01/16/20 15:18: Urine Opiates Screen Negative, Urine Barbiturates Screen Negative, Phencyclidine (PCP) Screen Negative, Urine Amphetamines Screen Negative, Urine Benzodiazepines Screen PositiveH, Urine Cocaine Screen PositiveH, Urine Marijuana (THC) Screen Negative 01/17/20 04:00: White Blood Count 3.4L, Red Blood Count 2.27L, Hemoglobin 6.9#*L, Hematocrit 22.0#L, Mean Corpuscular Volume 97, Mean Corpuscular Hemoglobin 30.6, Mean Corpuscular Hemoglobin Concent 31.6L, Red Cell Distribution Width 15.9H, Platelet Count 122L, Mean Platelet Volume 5.9L, Neutrophils (%) (Auto) , Lymphocytes (%) (Auto) , Monocytes (%) (Auto) , Eosinophils (%) (Auto) , Basophils (%) (Auto) , Differential Total Cells Counted 100, Neutrophils % ( Manual) 67, Lymphocytes % (Manual) 23, Monocytes % (Manual) 6, Eosinophils % ( Manual) 4H, Basophils % (Manual) 0, Band Neutrophils 0, Platelet Estimate DecreasedL, Platelet Morphology Normal, Hypochromasia 1+, Anisocytosis 1+, Sodium Level 140, Potassium Level 4.9, Chloride Level 102, Carbon Dioxide Level 31, Anion Gap 7, Blood Urea Nitrogen 86H, Creatinine 11.7H, Estimat Glomerular Filtration Rate 4.0, Glucose Level 87, Calcium Level 7.7L, Total Bilirubin 0.4, Aspartate Amino Transf (AST/SGOT) 71H, Alanine Aminotransferase (ALT/SGPT) 37, Alkaline Phosphatase 55, Troponin I 0.007, Total Protein 7.4, Albumin 2.9L, Globulin 4.5, Albumin/Globulin Ratio 0.6L, Hemoglobin A1c 5.5, Uric Acid 5.1, Phosphorus Level 2.8, Magnesium Level 2.6H 01/17/20 07:05: Iron Level 182H, Total Iron Binding Capacity 166L, Percent Iron Saturation 110H , Unsaturated Iron Binding -16L, Ferritin 796H, Vitamin B12 Level 216, Folate 12.7, Hepatitis B Surface Antigen [Pending] Height (Feet): 5 Height (Inches): 8.00 Weight (Pounds): 170 General Appearance: no apparent distress Cardiovascular: normal rate Respiratory/Chest: decreased breath sounds, other - Has right chest permacath Abdomen: soft, distended Jack Pryor MD Jan 17, 2020 10:42
[2020-01-17 12:00] VITALS: BP 179/86
[2020-01-17 16:00] VITALS: BP 176/93
[2020-01-17 20:00] VITALS: BP 171/74
--- NOTE | 2020-01-17 22:31 | General Progress Note ---
Assessment/Plan Assessment/Plan: Assessment - Dark stools, R/o GIB - Anemia, partly based on renal failure - HIV - HCV - ESRD - Abd pain Recommendations - await stool OB - monitor H&H - Transfuse PRN - outpatient HCV eval - will consider Endoscopy Thank you Alisa Banuelos MD Subjective Allergies: Coded Allergies: ASPIRIN (Unverified Allergy, Unknown, 01/16/20) IODINE (Verified Allergy, Unknown, 01/07/20) Uncoded Allergies: CONTRAST DYE (Allergy, Unknown, 01/07/20) Objective Last 24 Hour Vital Signs Date Time Temp Pulse Resp B/P (MAP) Pulse Ox O2 Delivery O2 Flow Rate FiO2 01/17/20 16:00 86 01/17/20 16:00 98.4 86 20 176/93 (120) 97 01/17/20 12:00 72 01/17/20 12:00 96.6 69 18 179/86 (117) 97 01/17/20 09:55 77 170/97 01/17/20 09:00 Room Air 01/17/20 08:00 98.7 77 19 170/97 (121) 98 01/17/20 08:00 75 01/17/20 04:00 81 01/17/20 04:00 97.9 80 19 158/81 (106) 97 01/17/20 00:00 98.1 72 18 158/70 (99) 97 01/17/20 00:00 75 Intake and Output 01/16/20 01/17/20 19:00 07:00 Intake Total 0 ml Output Total 2000 ml Balance 0 ml -2000 ml Intake Oral 0 ml Output Hemodialysis UF 2000 ml # Bowel Movements 2 Laboratory Tests 01/17/20 04:00: White Blood Count 3.4L, Red Blood Count 2.27L, Hemoglobin 6.9#*L, Hematocrit 22.0#L, Mean Corpuscular Volume 97, Mean Corpuscular Hemoglobin 30.6, Mean Corpuscular Hemoglobin Concent 31.6L, Red Cell Distribution Width 15.9H, Platelet Count 122L, Mean Platelet Volume 5.9L, Neutrophils (%) (Auto) , Lymphocytes (%) (Auto) , Monocytes (%) (Auto) , Eosinophils (%) (Auto) , Basophils (%) (Auto) , Differential Total Cells Counted 100, Neutrophils % ( Manual) 67, Lymphocytes % (Manual) 23, Monocytes % (Manual) 6, Eosinophils % ( Manual) 4H, Basophils % (Manual) 0, Band Neutrophils 0, Platelet Estimate DecreasedL, Platelet Morphology Normal, Hypochromasia 1+, Anisocytosis 1+, Sodium Level 140, Potassium Level 4.9, Chloride Level 102, Carbon Dioxide Level 31, Anion Gap 7, Blood Urea Nitrogen 86H, Creatinine 11.7H, Estimat Glomerular Filtration Rate 4.0, Glucose Level 87, Hemoglobin A1c 5.5, Uric Acid 5.1, Calcium Level 7.7L, Phosphorus Level 2.8, Magnesium Level 2.6H, Total Bilirubin 0.4, Aspartate Amino Transf (AST/SGOT) 71H, Alanine Aminotransferase (ALT/SGPT) 37, Alkaline Phosphatase 55, Troponin I 0.007, Total Protein 7.4, Albumin 2.9L, Globulin 4.5, Albumin/Globulin Ratio 0.6L 01/17/20 07:05: Iron Level 182H, Total Iron Binding Capacity 166L, Percent Iron Saturation 110H , Unsaturated Iron Binding -16L, Ferritin 796H, Vitamin B12 Level 216, Folate 12.7, Hepatitis B Surface Antigen [Pending] Height (Feet): 5 Height (Inches): 8.00 Weight (Pounds): 170 Alisa Banuelos MD Jan 17, 2020 22:31
[2020-01-18] VITALS: BP 161/82
[2020-01-18 04:00] VITALS: BP 150/89
--- NOTE | 2020-01-18 04:30 | Progress Note ---
DATE: 01/17/2020 CARDIOLOGY PROGRESS NOTE SUBJECTIVE: The patient now admits to missing both of her dialysis sessions since leaving the hospital last week on 01/12/2020. The patient again has a positive cocaine urine tox screen. The patient's hemoglobin is improved following transfusions. Stool occult blood test is pending. PHYSICAL EXAMINATION: VITAL SIGNS: Blood pressure 170/97, pulse 77, respirations 19, afebrile. LUNGS: Clear. CARDIAC: Regular. Normal S1, S2 with a fourth heart sound. ABDOMEN: Soft. EXTREMITIES: No edema. LABORATORY DATA: White count 3.4, hemoglobin 6.9, platelets 122. Iron saturation is 16%. IMPRESSION: 1. Hyperkalemia, resolved. 2. Noncompliance, persist. 3. Cocaine abuse, persist. 4. End-stage renal disease on hemodialysis. 5. Iron deficiency. 6. Possible gastrointestinal bleed. 7. Multifactorial anemia. 8. Hypertensive heart disease with her malignant range hypertension. 9. B12 deficiency. 10. HIV positive. PLAN: 1. Iron intravenously. 2. B12 subcutaneously. 3. Will likely need usp facility as she is unsafe for self-care. 4. Reassess for transfusion. 5. Await stool occult blood test. 6. Hemodialysis with ultrafiltration. 7. Up titration of antihypertensive medications. 8. Await ID input regarding HIV therapy. 9. Remains critical and guarded. Nam Barnett M.D. DR: BAHMAN JOB#: [id number] CC:
[2020-01-18 04:43] LABS: HEMATOCRIT 24.3 % (37.0-47.0); HEMOGLOBIN 7.6 G/DL (12.0-16.0); MEAN CORPUSCULAR VOLUME 98 FL (80-99); PLATELET COUNT 126 K/UL (150-450); RED BLOOD COUNT 2.47 M/UL (4.20-5.40); RED CELL DISTRIBUTION WIDTH 15.6 % (11.6-14.8); WHITE BLOOD COUNT 3.4 K/UL (4.8-10.8)
--- NOTE | 2020-01-18 05:00 | Consultation ---
DATE OF CONSULTATION: 01/17/2020 GASTROENTEROLOGY CONSULTATION CONSULTING PHYSICIAN: Alisa Banuelos MD. CHIEF COMPLAINT: I was asked to see this patient by Dr. Nam Barnett for anemia and dark stools. HISTORY OF PRESENT ILLNESS: The patient is a 69-year-old woman with multiple medical problems, most notably including renal failure and HIV, who comes into the hospital due to dark stools, diarrhea, abdominal pain, and very high potassium. She is reportedly noncompliant with the dialysis and she missed her one of the sessions. Her potassium is up to 8 on admission. She also had some cough and therefore she is being isolated for possible COVID infection, although she was apparently COVID negative about a week ago during her prior admission. The patient is on blood thinners for atrial fibrillation. She also has hepatitis C positive on her medical record, although details of this are unclear. On my interview, the patient complains of 2 days of abdominal pain, 2 episodes of nausea and vomiting at the onset of her symptoms, but no diarrhea. She believes her stools are dark with no blood in them. She has never had a colonoscopy or endoscopy. She denied a nonsteroidal anti-inflammatory drug use or aspirin use. PAST MEDICAL HISTORY: History of paroxysmal atrial fibrillation, end-stage renal disease, hypertension, diabetes, depression, HIV positive, and hepatitis C positive. FAMILY HISTORY: Noncontributory. SOCIAL HISTORY: The patient has a history of cocaine use and indeed had a positive tox screen on admission. She denies alcohol or smoking. ALLERGIES: Aspirin and iodine. REVIEW OF SYSTEMS: Otherwise negative. PHYSICAL EXAMINATION: GENERAL: A well-developed, well-nourished woman, seen in her room. HEENT: Normocephalic, atraumatic. Sclerae are anicteric. Oropharynx clear. NECK: Supple. CHEST: Coarse breath sounds. CARDIAC: Revealed a regular rate. ABDOMEN: Revealed mild diffuse tenderness without masses. CARDIOVASCULAR: Revealed no edema. LABORATORY DATA: Noted. ASSESSMENT: This patient presents with subjective complaints of dark stools and significant anemia, although some of the anemia may be due to renal failure and her chronic disease of HIV. Nonetheless, the stools will be checked for occult blood and if positive, then a consideration can be made for endoscopy. The patient also has a chart report of hepatitis C. The consideration can be made to treat it, but this will require a genotype evaluation and viral load and is just done as an outpatient. The patient will be kept on proton-pump inhibitor to treat any possible source of GI bleeding. A clear liquid diet to be offered for now until the evaluation is complete. RECOMMENDATION: Per above discussion and per orders written in the chart. Thank you for asking me to participate in the care of this patient. Alisa Banuelos M.D. DR: JABIER JOB#: [id number] CC:
[2020-01-18 05:27] LABS: ALANINE AMINOTRANSFERASE 43 U/L (12-78); ALBUMIN/GLOBULIN RATIO 0.6 (1.0-2.7); ALKALINE PHOSPHATASE 69 U/L (46-116); ANION GAP 6 mmol/L (5-15); ASPARTATE AMINO TRANSFERASE 73 U/L (15-37); BILIRUBIN,TOTAL 0.5 MG/DL (0.2-1.0); BLOOD UREA NITROGEN 63 mg/dL (7-18); CALCIUM 8.1 MG/DL (8.5-10.1); CARBON DIOXIDE 31 MMOL/L (21-32); CHLORIDE 100 MMOL/L (98-107); CREATININE 10.1 MG/DL (0.55-1.30); PHOSPHORUS 3.7 MG/DL (2.5-4.9); POTASSIUM 4.5 MMOL/L (3.5-5.1); SODIUM 137 MMOL/L (136-145)
[2020-01-18] MEDS: NovoLOG Insulin Flexpen SUBQ SCH ×4 (06:30→20:37)
[2020-01-18 08:00] VITALS: BP 162/75
[2020-01-18] MEDS: Sucralfate 1gm tab ORAL SCH ×4 (09:09→20:36)
[2020-01-18] MEDS: Pantoprazole Inj IVP SCH ×2 (09:09→20:37)
[2020-01-18] MEDS: Vitamin B12 1000mcg/ml Inj IM SCH (09:09)
[2020-01-18] MEDS: Citalopram Hydrobromide 10mg Tab ORAL SCH (09:09)
[2020-01-18 12:00] VITALS: BP 176/85
--- NOTE | 2020-01-18 12:18 | Nephrology Progress Note ---
Assessment/Plan Problem List: (1) ESRD (end stage renal disease) on dialysis (2) Hyperkalemia (3) HIV disease (4) Substance abuse (5) Gastrointestinal bleeding Assessment: Leading to significant anemia (6) HCV antibody positive Assessment This 69-year-old with end-stage renal disease, missed dialysis yesterday, presents with chest pain, has significantly low hemoglobin and evidence of upper GI bleed due to having tarry black stool. Patient is on anticoagulation for atrial fibrillation. (1) Hyperkalemia, serum potassium of 8.2 (2) ESRD (end stage renal disease) on dialysis, missed her dialysis yesterday (3) HIV disease (4) Substance abuse, previously had narcotics and cocaine in urine tox screen (5)Severe anemia due to GI bleed which appears to be from the upper side since the patient has tarry black stool indicative of digested blood (6)History of HCV (7) History of hypertensive kidney disease Plan Today's labs reviewed Due for dialysis today again Patient was transfused Continue per GI advice Continue per consultants Keep the blood pressure in check, blood pressure medication adjusted. Discussed with RN Subjective ROS Limited/Unobtainable: No Constitutional: Reports: malaise Objective Objective Last 24 Hour Vital Signs Date Time Temp Pulse Resp B/P (MAP) Pulse Ox O2 Delivery O2 Flow Rate FiO2 01/18/20 09:09 60 162/75 01/18/20 09:00 Room Air 01/18/20 08:00 60 01/18/20 08:00 97.9 60 20 162/75 (104) 95 01/18/20 04:00 97.2 68 18 150/89 (109) 95 01/18/20 04:00 68 01/18/20 00:00 61 01/18/20 00:00 96.9 77 18 161/82 (108) 95 01/17/20 21:00 Room Air 01/17/20 20:00 73 01/17/20 20:00 97.2 71 18 171/74 (106) 95 01/17/20 16:00 86 01/17/20 16:00 98.4 86 20 176/93 (120) 97 Intake and Output 01/17/20 01/18/20 19:00 07:00 Output Total 2000 ml Balance -2000 ml Output Hemodialysis UF 2000 ml # Voids 2 Current Medications Medications (Trade) Dose Ordered Sig/Rochelle Route PRN Reason Start Time Stop Time Status Last Admin Dose Admin Acetaminophen (Tylenol) 650 mg Q4H PRN ORAL Mild Pain (Pain Scale 1-3) 01/16/20 18:45 02/15/20 18:44 01/17/20 16:17 Alprazolam (Xanax) 0.5 mg Q8H PRN ORAL anxiety 01/16/20 18:45 01/23/20 18:44 01/17/20 20:36 Amlodipine Besylate (Norvasc) 10 mg DAILY ORAL 01/17/20 09:00 02/16/20 08:59 01/18/20 09:09 Citalopram Hydrobromide (CeleXA) 10 mg DAILY ORAL 01/17/20 09:00 02/16/20 08:59 01/18/20 09:09 Cyanocobalamin (Vitamin B12) 1,000 mcg DAILY IM 01/18/20 09:00 01/20/20 17:00 01/18/20 09:09 Darunavir (Prezista) 600 mg TWICE A DAY ORAL 01/17/20 09:00 02/16/20 08:59 UNV Dextrose (Dextrose 50%) 25 ml Q30M PRN IV Hypoglycemia 01/16/20 18:45 04/15/20 18:44 Dextrose (Dextrose 50%) 50 ml Q30M PRN IV Hypoglycemia 01/16/20 18:45 04/15/20 18:44 Insulin Aspart (NovoLOG) BEFORE MEALS AND HS SUBQ 01/16/20 21:00 04/15/20 20:59 Ondansetron HCl (Zofran) 4 mg Q6H PRN IVP Nausea & Vomiting 01/16/20 18:45 02/15/20 18:44 Pantoprazole (Protonix) 40 mg EVERY 12 HOURS IVP 01/16/20 21:00 02/15/20 20:59 01/18/20 09:09 Sucralfate (Carafate) 1 gm FOUR TIMES A DAY ORAL 01/16/20 21:00 04/15/20 20:59 01/18/20 09:09 Laboratory Tests 01/18/20 04:00: White Blood Count 3.4L, Red Blood Count 2.47L, Hemoglobin 7.6L, Hematocrit 24.3L , Mean Corpuscular Volume 98, Mean Corpuscular Hemoglobin 30.7, Mean Corpuscular Hemoglobin Concent 31.4L, Red Cell Distribution Width 15.6H, Platelet Count 126L, Mean Platelet Volume 6.3L, Neutrophils (%) (Auto) , Lymphocytes (%) (Auto) , Monocytes (%) (Auto) , Eosinophils (%) (Auto) , Basophils (%) (Auto) , Differential Total Cells Counted 100, Neutrophils % ( Manual) 67, Lymphocytes % (Manual) 17L, Monocytes % (Manual) 9, Eosinophils % ( Manual) 6H, Basophils % (Manual) 1, Band Neutrophils 0, Platelet Estimate DecreasedL, Platelet Morphology Normal, Hypochromasia 3+, Anisocytosis 1+, Sodium Level 137, Potassium Level 4.5, Chloride Level 100, Carbon Dioxide Level 31, Anion Gap 6, Blood Urea Nitrogen 63H, Creatinine 10.1H, Estimat Glomerular Filtration Rate 4.7, Glucose Level 90, Uric Acid 4.3, Calcium Level 8.1L, Phosphorus Level 3.7, Magnesium Level 2.6H, Total Bilirubin 0.5, Gamma Glutamyl Transpeptidase 208H, Aspartate Amino Transf (AST/SGOT) 73H, Alanine Aminotransferase (ALT/SGPT) 43, Alkaline Phosphatase 69, Lactate Dehydrogenase 263H, Total Protein 8.1, Albumin 3.0L, Globulin 5.1, Albumin/Globulin Ratio 0.6L Height (Feet): 5 Height (Inches): 8.00 Weight (Pounds): 170 General Appearance: no apparent distress, lethargic Cardiovascular: normal rate Respiratory/Chest: decreased breath sounds Abdomen: soft Jack Pryor MD Jan 18, 2020 12:18
[2020-01-18] MEDS: ALPRAZolam 0.5mg tab ORAL PRN ×2 (12:52→23:25)
[2020-01-18 16:00] VITALS: BP 136/72
[2020-01-18] MEDS: HydrALAZINE 25mg tab ORAL SCH ×2 (16:32→21:10)
[2020-01-18] MEDS: Darunavir 600mg tab ORAL SCH (18:02)
[2020-01-18] MEDS: Dolutegravir Sodium 50mg tab ORAL SCH (18:02)
[2020-01-18 20:00] VITALS: BP 150/70
--- NOTE | 2020-01-18 22:25 | General Progress Note ---
Assessment/Plan Assessment/Plan: Assessment - Dark stools, R/o GIB - constipation - Anemia, partly based on renal failure - HIV - HCV - ESRD - Abd pain - COVID (-) Recommendations - await stool OB - laxative - monitor H&H - Transfuse PRN - outpatient HCV eval - CT scan abd/pelvis on FRI - EGD on Subjective Allergies: Coded Allergies: ASPIRIN (Unverified Allergy, Unknown, 01/16/20) IODINE (Verified Allergy, Unknown, 01/07/20) Uncoded Allergies: CONTRAST DYE (Allergy, Unknown, 01/07/20) Subjective above noted d/w RN No BM --> no stool OB available still with diffuse abd pain tolerating liquids COVID (-) Objective Last 24 Hour Vital Signs Date Time Temp Pulse Resp B/P (MAP) Pulse Ox O2 Delivery O2 Flow Rate FiO2 01/18/20 21:10 150/70 01/18/20 21:00 Room Air 01/18/20 20:00 97.9 61 16 150/70 (96) 100 01/18/20 16:32 136/72 01/18/20 16:00 65 01/18/20 16:00 97.7 61 20 136/72 (93) 97 01/18/20 12:52 176/85 01/18/20 12:00 60 01/18/20 12:00 97.7 71 20 176/85 (115) 97 01/18/20 09:09 60 162/75 01/18/20 09:00 Room Air 01/18/20 08:00 60 01/18/20 08:00 97.9 60 20 162/75 (104) 95 01/18/20 04:00 97.2 68 18 150/89 (109) 95 01/18/20 04:00 68 01/18/20 00:00 61 01/18/20 00:00 96.9 77 18 161/82 (108) 95 Intake and Output 01/17/20 01/18/20 19:00 07:00 Output Total 2000 ml Balance -2000 ml Output Hemodialysis UF 2000 ml # Voids 2 Laboratory Tests 01/18/20 04:00: White Blood Count 3.4L, Red Blood Count 2.47L, Hemoglobin 7.6L, Hematocrit 24.3L , Mean Corpuscular Volume 98, Mean Corpuscular Hemoglobin 30.7, Mean Corpuscular Hemoglobin Concent 31.4L, Red Cell Distribution Width 15.6H, Platelet Count 126L, Mean Platelet Volume 6.3L, Neutrophils (%) (Auto) , Lymphocytes (%) (Auto) , Monocytes (%) (Auto) , Eosinophils (%) (Auto) , Basophils (%) (Auto) , Differential Total Cells Counted 100, Neutrophils % ( Manual) 67, Lymphocytes % (Manual) 17L, Monocytes % (Manual) 9, Eosinophils % ( Manual) 6H, Basophils % (Manual) 1, Band Neutrophils 0, Platelet Estimate DecreasedL, Platelet Morphology Normal, Hypochromasia 3+, Anisocytosis 1+, Sodium Level 137, Potassium Level 4.5, Chloride Level 100, Carbon Dioxide Level 31, Anion Gap 6, Blood Urea Nitrogen 63H, Creatinine 10.1H, Estimat Glomerular Filtration Rate 4.7, Glucose Level 90, Uric Acid 4.3, Calcium Level 8.1L, Phosphorus Level 3.7, Magnesium Level 2.6H, Total Bilirubin 0.5, Gamma Glutamyl Transpeptidase 208H, Aspartate Amino Transf (AST/SGOT) 73H, Alanine Aminotransferase (ALT/SGPT) 43, Alkaline Phosphatase 69, Lactate Dehydrogenase 263H, Total Protein 8.1, Albumin 3.0L, Globulin 5.1, Albumin/Globulin Ratio 0.6L Height (Feet): 5 Height (Inches): 8.00 Weight (Pounds): 170 Objective WDWN AA woman NCAT supple CTA RRR abd soft, (+) diffuse TTP, no masses ext no edema Alisa Banuelos MD Jan 18, 2020 22:25
[2020-01-18] MEDS ORDERED: Sorbitol Solution UD 30ml ORAL ONE (22:30)
[2020-01-19] VITALS: BP 158/72
[2020-01-19 04:00] VITALS: BP 145/85
[2020-01-19 05:54] LABS: HEMATOCRIT 24.8 % (37.0-47.0); HEMOGLOBIN 7.8 G/DL (12.0-16.0); MEAN CORPUSCULAR VOLUME 99 FL (80-99); PLATELET COUNT 136 K/UL (150-450); RED BLOOD COUNT 2.51 M/UL (4.20-5.40); RED CELL DISTRIBUTION WIDTH 16.1 % (11.6-14.8); WHITE BLOOD COUNT 3.3 K/UL (4.8-10.8)
[2020-01-19] MEDS: HydrALAZINE 25mg tab ORAL SCH ×3 (05:55→21:11)
[2020-01-19 06:03] LABS: ALANINE AMINOTRANSFERASE 46 U/L (12-78); ALBUMIN 3.2 G/DL (3.4-5.0); ALBUMIN/GLOBULIN RATIO 0.7 (1.0-2.7); ALKALINE PHOSPHATASE 66 U/L (46-116); ANION GAP 11 mmol/L (5-15); ASPARTATE AMINO TRANSFERASE 74 U/L (15-37); BILIRUBIN,TOTAL 0.5 MG/DL (0.2-1.0); BLOOD UREA NITROGEN 57 mg/dL (7-18); CARBON DIOXIDE 27 MMOL/L (21-32); CHLORIDE 99 MMOL/L (98-107); CREATININE 9.4 MG/DL (0.55-1.30); PHOSPHORUS 3.8 MG/DL (2.5-4.9); POTASSIUM 4.5 MMOL/L (3.5-5.1); SODIUM 137 MMOL/L (136-145)
[2020-01-19] MEDS: NovoLOG Insulin Flexpen SUBQ SCH ×4 (06:30→20:41)
[2020-01-19 08:00] VITALS: BP 154/72
[2020-01-19] MEDS: Citalopram Hydrobromide 10mg Tab ORAL SCH ×2 (09:57→10:04)
[2020-01-19] MEDS: Sucralfate 1gm tab ORAL SCH ×4 (09:57→21:11)
[2020-01-19] MEDS: Dolutegravir Sodium 50mg tab ORAL SCH (09:57)
[2020-01-19] MEDS: Darunavir 600mg tab ORAL SCH ×2 (09:59→18:06)
[2020-01-19] MEDS: Pantoprazole Inj IVP SCH ×2 (09:59→21:08)
[2020-01-19] MEDS: Vitamin B12 1000mcg/ml Inj IM SCH (09:59)
--- NOTE | 2020-01-19 10:02 | Nephrology Progress Note ---
Assessment/Plan Problem List: (1) ESRD (end stage renal disease) on dialysis (2) Hyperkalemia (3) HIV disease (4) Substance abuse (5) Gastrointestinal bleeding Assessment: Leading to significant anemia (6) HCV antibody positive Assessment This 69-year-old with end-stage renal disease, missed dialysis yesterday, presents with chest pain, has significantly low hemoglobin and evidence of upper GI bleed due to having tarry black stool. Patient is on anticoagulation for atrial fibrillation. (1) Hyperkalemia, serum potassium of 8.2 (2) ESRD (end stage renal disease) on dialysis, missed her dialysis yesterday (3) HIV disease (4) Substance abuse, previously had narcotics and cocaine in urine tox screen (5)Severe anemia due to GI bleed which appears to be from the upper side since the patient has tarry black stool indicative of digested blood (6)History of HCV (7) History of hypertensive kidney disease Plan January 18: RN reports that the patient was dialyzed in error on January 16 instead of January 17. Will order another dialysis today January 18. Meanwhile hemoglobin stays stable. No obvious sign of bleeding. Blood pressure stable. Electrolytes stable. Continue management per PMD and consultants. Discussed with MARTIN Ravi in details. Patient was transfused Continue per GI advice Continue per consultants Keep the blood pressure in check, blood pressure medication adjusted. Discussed with RN Subjective ROS Limited/Unobtainable: No Constitutional: Reports: malaise, weakness Objective Objective Last 24 Hour Vital Signs Date Time Temp Pulse Resp B/P (MAP) Pulse Ox O2 Delivery O2 Flow Rate FiO2 01/19/20 05:55 145/85 01/19/20 04:00 97.7 60 16 145/85 (105) 99 01/19/20 04:00 63 01/19/20 00:00 70 01/19/20 00:00 98.1 62 16 158/72 (100) 99 01/18/20 21:10 150/70 01/18/20 21:00 Room Air 01/18/20 20:00 97.9 61 16 150/70 (96) 100 01/18/20 20:00 60 01/18/20 16:32 136/72 01/18/20 16:00 65 01/18/20 16:00 97.7 61 20 136/72 (93) 97 01/18/20 12:52 176/85 6/16/20 12:00 60 01/18/20 12:00 97.7 71 20 176/85 (115) 97 Intake and Output 01/18/20 01/19/20 19:00 07:00 Intake Total 500 ml 300 ml Balance 500 ml 300 ml Intake Oral 500 ml 300 ml # Voids 3 1 # Bowel Movements 1 Current Medications Medications (Trade) Dose Ordered Sig/Rochelle Route PRN Reason Start Time Stop Time Status Last Admin Dose Admin Acetaminophen (Tylenol) 650 mg Q4H PRN ORAL Mild Pain (Pain Scale 1-3) 01/16/20 18:45 02/15/20 18:44 01/19/20 09:59 Alprazolam (Xanax) 0.5 mg Q8H PRN ORAL anxiety 01/16/20 18:45 01/23/20 18:44 01/18/20 23:25 Amlodipine Besylate (Norvasc) 10 mg DAILY ORAL 01/17/20 09:00 02/16/20 08:59 01/18/20 09:09 Barium Sulfate (Readi-Cat 2) 450 ml NOW PRN ORAL Radiology Procedure 01/18/20 22:30 01/20/20 22:22 Citalopram Hydrobromide (CeleXA) 10 mg DAILY ORAL 01/17/20 09:00 02/16/20 08:59 01/19/20 09:57 Clonidine HCl (Catapres Tab) 0.1 mg Q4H PRN ORAL Blood pressure over 170 systol 01/18/20 12:23 04/17/20 12:22 01/18/20 12:52 Cyanocobalamin (Vitamin B12) 1,000 mcg DAILY IM 01/18/20 09:00 01/20/20 17:00 01/19/20 09:59 Darunavir (Prezista) 600 mg TWICE A DAY ORAL 01/18/20 18:00 02/17/20 17:59 01/19/20 09:59 Dextrose (Dextrose 50%) 25 ml Q30M PRN IV Hypoglycemia 01/16/20 18:45 04/15/20 18:44 Dextrose (Dextrose 50%) 50 ml Q30M PRN IV Hypoglycemia 01/16/20 18:45 04/15/20 18:44 Dolutegravir Sodium (Tivicay) 50 mg DAILY ORAL 01/18/20 19:00 04/17/20 18:59 01/19/20 09:57 Hydralazine HCl (Apresoline) 25 mg Q8HR ORAL 01/18/20 14:00 04/17/20 13:59 01/19/20 05:55 Insulin Aspart (NovoLOG) BEFORE MEALS AND HS SUBQ 01/16/20 21:00 04/15/20 20:59 Ondansetron HCl (Zofran) 4 mg Q6H PRN IVP Nausea & Vomiting 01/16/20 18:45 02/15/20 18:44 Pantoprazole (Protonix) 40 mg EVERY 12 HOURS IVP 01/16/20 21:00 02/15/20 20:59 01/19/20 09:59 Sucralfate (Carafate) 1 gm FOUR TIMES A DAY ORAL 01/16/20 21:00 04/15/20 20:59 01/19/20 09:57 Laboratory Tests 01/19/20 04:30: Stool Occult Blood [Pending] 01/19/20 05:00: White Blood Count 3.3L, Red Blood Count 2.51L, Hemoglobin 7.8L, Hematocrit 24.8L , Mean Corpuscular Volume 99, Mean Corpuscular Hemoglobin 31.0, Mean Corpuscular Hemoglobin Concent 31.4L, Red Cell Distribution Width 16.1H, Platelet Count 136L, Mean Platelet Volume 5.7L, Neutrophils (%) (Auto) , Lymphocytes (%) (Auto) , Monocytes (%) (Auto) , Eosinophils (%) (Auto) , Basophils (%) (Auto) , Neutrophils % (Manual) [Pending], Lymphocytes % (Manual) [Pending], Platelet Estimate [Pending], Platelet Morphology [Pending], Sodium Level 137, Potassium Level 4.5, Chloride Level 99, Carbon Dioxide Level 27, Anion Gap 11, Blood Urea Nitrogen 57H, Creatinine 9.4H, Estimat Glomerular Filtration Rate 5.1, Glucose Level 90, Calcium Level 8.0L, Phosphorus Level 3.8 , Total Bilirubin 0.5, Aspartate Amino Transf (AST/SGOT) 74H, Alanine Aminotransferase (ALT/SGPT) 46, Alkaline Phosphatase 66, Total Protein 8.1, Albumin 3.2L, Globulin 4.9, Albumin/Globulin Ratio 0.7L Height (Feet): 5 Height (Inches): 8.00 Weight (Pounds): 162 General Appearance: no apparent distress Cardiovascular: normal rate Respiratory/Chest: decreased breath sounds Abdomen: soft Jack Pryor MD Jan 19, 2020 10:02
--- NOTE | 2020-01-19 10:31 | Diagnostic Imaging Report ---
EXAM: CT CT Abdomen Pelvis WO Contrast INDICATION: Reason For Exam: ABD PAIN. COMPARISON: 01/30/2006 TECHNIQUE: Axial images were obtained through the abdomen pelvis without intravenous contrast. Sagittal and coronal reformats are generated. All CT scans at this facility are performed using dose modulation techniques as appropriate to a performed exam including the following: automated exposure control with adjustment of the mA and/or kV according to patient size. RADIATION DOSE: CTDIvol: 5.5 mGy DLP: 284.2 mGy-cm Dose information generated by the CT scanner is available in PACS. FINDINGS: There is linear atelectasis or scarring in the right middle lobe adjacent to the right heart margin. The liver is homogeneous. There is splenomegaly. Multiple layering gallstones demonstrated. Gallbladder is not thickened and there is no surrounding inflammation. Pancreas is difficult to separate from adjacent nonopacified small bowel but is grossly unremarkable. Adrenals are normal in morphology. There are low-density cysts in the right kidney. At the lower pole of the left kidney, there is a low-density nodule with peripheral rim calcifications. This has been present since 2005. The rim calcifications has increased. Small bowel loops are nondistended. There is diffuse diverticulosis without sign of acute diverticulitis. The appendix is normal. Uterus is midline. There is a right adnexal cyst approximately 5.4 cm. There is no free fluid or free air. No pathologic adenopathy demonstrated. Urinary bladder appears unremarkable. There is no suspicious superficial soft tissue or osseous abnormality. IMPRESSION: SPLENOMEGALY. GALLSTONES. RENAL CYSTS WITH A COMPLEX CYST WITH RIM CALCIFICATIONS IN LOWER POLE OF THE LEFT KIDNEY PRESENT SINCE 2005. DIVERTICULOSIS WITHOUT SIGN OF ACUTE EPIDIDYMITIS. RIGHT ADNEXAL CYST PERHAPS A NONFUNCTIONAL CYST. CORRELATE WITH PELVIC ULTRASOUND IF CLINICALLY INDICATED
[2020-01-19 12:00] VITALS: BP 165/81
--- NOTE | 2020-01-19 13:45 | Progress Note ---
DATE: 01/18/2020 INTERNAL MEDICINE AND CARDIOLOGY PROGRESS NOTE SUBJECTIVE: The patient has not had any new bleeding. Hemoglobin level remains stable at 7.6 following transfusion. Stool occult blood is positive. The patient continues to express the likelihood of poor compliance with dialysis as an outpatient. OBJECTIVE: VITAL SIGNS: Blood pressure 150/70, pulse 61, respirations 18. Afebrile. LUNGS: Clear. CARDIAC: Regular. Normal S1, S2 with no rub. ABDOMEN: Soft. EXTREMITIES: No edema. IMPRESSION: 1. Severe anemia. 2. Hyperkalemia, resolved. 3. Noncompliance. 4. Missed dialysis sessions. 5. End-stage renal disease. 6. B12 deficiency. 7. HIV positive. 8. Hepatitis C positive. 9. Cocaine abuse. PLAN: 1. Hemodialysis with ultrafiltration. 2. Serial hemoglobin. 3. Endoscopy planned. 4. Social service to assist with compliance, may need SNF. 5. Iron and B12 replacement. 6. Avoid anti-platelet therapy. 7. Titrate antihypertensives. Nam Barnett M.D. DR: SUPA JOB#: [id number] CC:
[2020-01-19 16:00] VITALS: BP 120/62
[2020-01-19] MEDS: ALPRAZolam 0.5mg tab ORAL PRN (18:21)
[2020-01-19 20:00] VITALS: BP 165/87
--- NOTE | 2020-01-19 21:36 | General Progress Note ---
Assessment/Plan Assessment/Plan: Assessment - Dark stools, R/o GIB - constipation - Anemia, partly based on renal failure - HIV - HCV - ESRD - Abd pain - COVID (-) Recommendations - await stool OB - laxative - monitor H&H - Transfuse PRN - outpatient HCV eval - CT scan abd/pelvis on FRI - EGD on Subjective Allergies: Coded Allergies: ASPIRIN (Unverified Allergy, Unknown, 01/16/20) IODINE (Verified Allergy, Unknown, 01/07/20) Uncoded Allergies: CONTRAST DYE (Allergy, Unknown, 01/07/20) Subjective above noted still with abd pain OB (+) stool Had CT scan today No etiolgy fo abd pain seen on CT Objective Last 24 Hour Vital Signs Date Time Temp Pulse Resp B/P (MAP) Pulse Ox O2 Delivery O2 Flow Rate FiO2 01/19/20 21:11 165/87 01/19/20 16:00 71 01/19/20 16:00 97.7 61 19 120/62 (81) 99 01/19/20 12:00 61 01/19/20 12:00 98.2 62 20 165/81 (109) 100 01/19/20 09:00 Room Air 01/19/20 08:00 63 01/19/20 08:00 96.6 63 18 154/72 (99) 98 01/19/20 05:55 145/85 01/19/20 04:00 97.7 60 16 145/85 (105) 99 01/19/20 04:00 63 01/19/20 00:00 70 01/19/20 00:00 98.1 62 16 158/72 (100) 99 Intake and Output 01/18/20 01/19/20 19:00 07:00 Intake Total 500 ml 300 ml Balance 500 ml 300 ml Intake Oral 500 ml 300 ml # Voids 3 1 # Bowel Movements 1 Laboratory Tests 01/19/20 04:30: Stool Occult Blood Positive 01/19/20 05:00: White Blood Count 3.3L, Red Blood Count 2.51L, Hemoglobin 7.8L, Hematocrit 24.8L , Mean Corpuscular Volume 99, Mean Corpuscular Hemoglobin 31.0, Mean Corpuscular Hemoglobin Concent 31.4L, Red Cell Distribution Width 16.1H, Platelet Count 136L, Mean Platelet Volume 5.7L, Neutrophils (%) (Auto) , Lymphocytes (%) (Auto) , Monocytes (%) (Auto) , Eosinophils (%) (Auto) , Basophils (%) (Auto) , Differential Total Cells Counted 100, Neutrophils % ( Manual) 68, Lymphocytes % (Manual) 20, Monocytes % (Manual) 4, Eosinophils % ( Manual) 8H, Basophils % (Manual) 0, Band Neutrophils 0, Platelet Estimate DecreasedL, Platelet Morphology Normal, Hypochromasia 1+, Anisocytosis 1+, Macrocytosis 1+, Sodium Level 137, Potassium Level 4.5, Chloride Level 99, Carbon Dioxide Level 27, Anion Gap 11, Blood Urea Nitrogen 57H, Creatinine 9.4H , Estimat Glomerular Filtration Rate 5.1, Glucose Level 90, Calcium Level 8.0L, Phosphorus Level 3.8, Total Bilirubin 0.5, Aspartate Amino Transf (AST/SGOT) 74H , Alanine Aminotransferase (ALT/SGPT) 46, Alkaline Phosphatase 66, Total Protein 8.1, Albumin 3.2L, Globulin 4.9, Albumin/Globulin Ratio 0.7L Height (Feet): 5 Height (Inches): 8.00 Weight (Pounds): 162 Objective WDWN AA woman NCAT supple CTA RRR abd soft, (+) diffuse TTP, no masses ext no edema Alisa Banuelos MD Jan 19, 2020 21:36
[2020-01-20] VITALS (9 sets, daily range): BP systolic 123–177; BP diastolic 70–96
[2020-01-20] MEDS: HydrALAZINE 25mg tab ORAL SCH ×3 (06:12→22:06)
[2020-01-20] MEDS: NovoLOG Insulin Flexpen SUBQ SCH ×4 (06:23→21:00)
[2020-01-20 06:30] LABS: HEMATOCRIT 25.3 % (37.0-47.0); HEMOGLOBIN 7.9 G/DL (12.0-16.0); MEAN CORPUSCULAR VOLUME 98 FL (80-99); PLATELET COUNT 166 K/UL (150-450); RED BLOOD COUNT 2.58 M/UL (4.20-5.40); RED CELL DISTRIBUTION WIDTH 15.9 % (11.6-14.8); WHITE BLOOD COUNT 4.7 K/UL (4.8-10.8)
--- NOTE | 2020-01-20 06:55 | Anethesia Preoperative Eval ---
Anesthesia Pre-op PMH/ROS General Date of Evaluation: Jan 20, 2020 Time of Evaluation: 06:50 Anesthesiologist: laurence ASA Score: ASA 4 Mallampati Score Class I : Soft palate, uvula, fauces, pillars visible Class II: Soft palate, uvula, fauces visible Class III: Soft palate, base of uvula visible Class IV: Only hard plate visible Mallampati Classification: Class II Surgeon: orly Diagnosis: gi bleed Surgical Procedure: egd Anesthesia History: none Family History: no anesthesia problems Allergies: Coded Allergies: ASPIRIN (Unverified Allergy, Unknown, 01/16/20) IODINE (Verified Allergy, Unknown, 01/07/20) Uncoded Allergies: CONTRAST DYE (Allergy, Unknown, 01/07/20) Medications: see eMAR Patient NPO?: Yes Past Medical History Cardiovascular: Reports: HTN, other - chest pain Gastrointestinal/Genitourinary: Reports: ESRD, other - hcv ab+ Neurologic/Psychiatric: Reports: depression/anxiety, other - seizure disorder Endocrine: Reports: DM Hematology/Immune: Reports: anemia, other - hiv+, hx/o substance abuse Anesthesia Pre-op Phys. Exam Physician Exam Last Vital Signs Date Time Temp Pulse Resp B/P (MAP) Pulse Ox O2 Delivery O2 Flow Rate FiO2 01/20/20 06:12 161/70 01/20/20 04:35 67 01/20/20 04:00 97.9 20 98 01/19/20 21:00 Room Air 01/16/20 16:28 21 Constitutional: NAD Neurologic: CN 2-12 intact Cardiovascular: RRR Respiratory: CTA Gastrointestinal: S/NT/ND Airway Exam Mallampati Score: Class II MO: limited Neck: flexible TMD: 2fb ROM: limited Anesthesia Pre-op A/P Labs covid-19 negative Microbiology Date/Time Source Procedure Growth Status 01/16/20 17:45 Nasal Nares MRSA Culture - Final NO METHICILLIN RESISTANT STAPH AUREUS... Complete 01/16/20 17:30 Rectum - Final NO CARBAPENEM-RESISTANT ENTEROBACTERI... Complete Hematology Test 01/20/20 05:40 White Blood Count Pending Red Blood Count Pending Hemoglobin Pending Hematocrit Pending Mean Corpuscular Volume Pending Mean Corpuscular Hemoglobin Pending Mean Corpuscular Hemoglobin Concent Pending Red Cell Distribution Width Pending Platelet Count Pending Mean Platelet Volume Pending Neutrophils (%) (Auto) Pending Lymphocytes (%) (Auto) Pending Monocytes (%) (Auto) Pending Eosinophils (%) (Auto) Pending Basophils (%) (Auto) Pending Chemistry Test 01/20/20 05:40 Sodium Level Pending Potassium Level Pending Chloride Level Pending Carbon Dioxide Level Pending Blood Urea Nitrogen Pending Creatinine Pending Estimat Glomerular Filtration Rate Pending Glucose Level Pending Calcium Level Pending Phosphorus Level Pending Total Bilirubin Pending Aspartate Amino Transf (AST/SGOT) Pending Alanine Aminotransferase (ALT/SGPT) Pending Alkaline Phosphatase Pending C-Reactive Protein, Quantitative Pending Pro-B-Type Natriuretic Peptide Pending Total Protein Pending Albumin Pending Globulin Pending Risk Assessment & Plan Assessment: asa4 Plan: mac Status Change Before Surgery: No Pre-Antibiotics Drug: Jonna Rosales MD Jan 20, 2020 06:55
[2020-01-20] MEDS ORDERED: fentaNYL 100 mcg/2 mL IV PRN (07:00)
[2020-01-20] MEDS ORDERED: DiphenhydrAMINE 50mg/ml Inj IVP PRN (07:00)
[2020-01-20] MEDS ORDERED: Midazolam 2mg/2ml Inj IVP PRN (07:00)
[2020-01-20] MEDS ORDERED: Atropine Inj 1mg/10ml Syr IV PRN (07:00)
[2020-01-20 07:21] LABS: ALANINE AMINOTRANSFERASE 41 U/L (12-78); ALBUMIN 2.9 G/DL (3.4-5.0); ALBUMIN/GLOBULIN RATIO 0.5 (1.0-2.7); ALKALINE PHOSPHATASE 73 U/L (46-116); ANION GAP 11 mmol/L (5-15); ASPARTATE AMINO TRANSFERASE 49 U/L (15-37); BILIRUBIN,TOTAL 0.3 MG/DL (0.2-1.0); BLOOD UREA NITROGEN 45 mg/dL (7-18); CARBON DIOXIDE 28 MMOL/L (21-32); CHLORIDE 94 MMOL/L (98-107); CREATININE 9.7 MG/DL (0.55-1.30); PHOSPHORUS 4.9 MG/DL (2.5-4.9); POTASSIUM 4.1 MMOL/L (3.5-5.1); SODIUM 133 MMOL/L (136-145)
[2020-01-20] MEDS ORDERED: NS 500ML IVPB ONE (08:58)
--- NOTE | 2020-01-20 08:58 | Pre-Procedure Note/Attestation ---
Pre-Procedure Note/Attestation Complete Prior to Procedure Planned Procedure: not applicable Procedure Narrative: egd Indications for Procedure Pre-Operative Diagnosis: abd pain, gib Attestation I attest that I discussed the nature of the procedure; its benefits; risks and complications; and alternatives (and the risks and benefits of such alternatives ), prior to the procedure, with the patient (or the patient's legal physician representative). I attest that, if there was a reasonable possibility of needing a blood transfusion, the patient (or the patient's legal physician representative) was given the [facility] standardized written summary, pursuant to the [place] Blood Safety Act ([place] Health and Safety Code # 1645, as amended). I attest that I re-evaluated the patient just prior to the surgery and that there has been no change in the patient's H&P, except as documented below: Alisa Banuelos MD Jan 20, 2020 08:58
--- NOTE | 2020-01-20 08:58 | General Progress Note ---
Assessment/Plan Assessment/Plan: Assessment - Dark stools,OB (+) - constipation - Anemia, partly based on renal failure - HIV - HCV - outpatient eradication - ESRD - Abd pain - resolved - COVID (-) Recommendations - laxative PRN - monitor H&H - Transfuse PRN - outpatient HCV eradication - EGD today Subjective Allergies: Coded Allergies: ASPIRIN (Unverified Allergy, Unknown, 01/16/20) IODINE (Verified Allergy, Unknown, 01/07/20) Uncoded Allergies: CONTRAST DYE (Allergy, Unknown, 01/07/20) Subjective above noted abd pain now resolved NPO for EGD today advised needs outpatient Colonoscopy advised needs outpatient Hep C eradication Objective Last 24 Hour Vital Signs Date Time Temp Pulse Resp B/P (MAP) Pulse Ox O2 Delivery O2 Flow Rate FiO2 01/20/20 08:00 98.8 66 18 162/75 (104) 100 01/20/20 06:12 161/70 01/20/20 04:35 67 01/20/20 04:00 97.9 66 20 150/70 (96) 98 01/20/20 00:00 98.3 62 19 157/72 (100) 98 01/20/20 00:00 70 01/19/20 21:11 165/87 01/19/20 21:00 Room Air 01/19/20 20:00 65 01/19/20 20:00 98.1 113 20 165/87 (113) 98 01/19/20 16:00 71 01/19/20 16:00 97.7 61 19 120/62 (81) 99 01/19/20 12:00 61 01/19/20 12:00 98.2 62 20 165/81 (109) 100 01/19/20 09:00 Room Air Intake and Output 01/19/20 01/20/20 19:00 07:00 Intake Total 240 ml Output Total 2000 ml Balance -2000 ml 240 ml Intake Oral 240 ml Output Hemodialysis UF 2000 ml # Voids 2 Laboratory Tests 01/20/20 05:40: White Blood Count 4.7L, Red Blood Count 2.58L, Hemoglobin 7.9L, Hematocrit 25.3L , Mean Corpuscular Volume 98, Mean Corpuscular Hemoglobin 30.6, Mean Corpuscular Hemoglobin Concent 31.2L, Red Cell Distribution Width 15.9H, Platelet Count 166, Mean Platelet Volume 7.1, Neutrophils (%) (Auto) , Lymphocytes (%) (Auto) , Monocytes (%) (Auto) , Eosinophils (%) (Auto) , Basophils (%) (Auto) , Neutrophils % (Manual) [Pending], Lymphocytes % (Manual) [Pending], Platelet Estimate [Pending], Platelet Morphology [Pending], Sodium Level 133L, Potassium Level 4.1, Chloride Level 94L, Carbon Dioxide Level 28, Anion Gap 11, Blood Urea Nitrogen 45H, Creatinine 9.7H, Estimat Glomerular Filtration Rate 4.8, Glucose Level 83, Calcium Level 8.0L, Phosphorus Level 4.9 , Total Bilirubin 0.3, Aspartate Amino Transf (AST/SGOT) 49H, Alanine Aminotransferase (ALT/SGPT) 41, Alkaline Phosphatase 73, C-Reactive Protein, Quantitative < 0.4, Pro-B-Type Natriuretic Peptide 85876J, Total Protein 8.4H, Albumin 2.9L, Globulin 5.5, Albumin/Globulin Ratio 0.5L Height (Feet): 5 Height (Inches): 6.00 Weight (Pounds): 159 Objective WDWN AA woman NCAT supple CTA RRR abd soft, non tender, no masses ext no edema Alisa Banuelos MD Jan 20, 2020 08:58
[2020-01-20] MEDS: Darunavir 600mg tab ORAL SCH ×2 (09:00→17:23)
[2020-01-20] MEDS: Pantoprazole Inj IVP SCH ×2 (09:00→22:00)
[2020-01-20] MEDS ORDERED: Lidocaine 1% MPF 10mg/ml 5ml ONE (09:00)
[2020-01-20] MEDS: Sucralfate 1gm tab ORAL SCH ×4 (09:00→22:06)
[2020-01-20] MEDS: Dolutegravir Sodium 50mg tab ORAL SCH (09:00)
[2020-01-20] MEDS: Vitamin B12 1000mcg/ml Inj IM SCH (09:00)
--- NOTE | 2020-01-20 09:45 | Immediate Post-Op Evaluation ---
Immediate Post-Op Evalulation Immediate Post-Op Evalulation Procedure: egd w/bx Date of Evaluation: Jan 20, 2020 Time of Evaluation: 09:40 IV Fluids: 150ml 0.9ns Blood Products: none Estimated Blood Loss: negligible Blood Pressure Systolic: 123 Blood Pressure Diastolic: 73 Pulse Rate: 73 Respiratory Rate: 18 O2 Sat by Pulse Oximetry: 100 Temperature (Fahrenheit): 97.5 Pain Score (1-10): 0 Nausea: No Vomiting: No Complications none Patient Status: awake, reacts, patent Hydration Status: adequate Drug: Jonna Rosales MD Jan 20, 2020 09:45
--- NOTE | 2020-01-20 09:46 | 48 Hour Post Anesthesia Eval ---
Post Anesthesia Evaluation Procedure: egd w/bx Date of Evaluation: Jan 20, 2020 Time of Evaluation: 09:42 Blood Pressure Systolic: 131 0: 83 Pulse Rate: 72 Respiratory Rate: 18 Temperature (Fahrenheit): 97.8 O2 Sat by Pulse Oximetry: 100 Airway: patent Nausea: No Vomiting: No Pain Intensity: 0 Hydration Status: adequate Cardiopulmonary Status: stable Mental Status/LOC: patient returned to baseline Post-Anesthesia Complications: none Follow-up care needed: N/A Jonna Castellanos MD Jan 20, 2020 09:45
--- NOTE | 2020-01-20 10:42 | Nephrology Progress Note ---
Assessment/Plan Problem List: (1) ESRD (end stage renal disease) on dialysis (2) Hyperkalemia (3) HIV disease (4) Substance abuse (5) Gastrointestinal bleeding Assessment: Leading to significant anemia (6) HCV antibody positive Assessment This 69-year-old with end-stage renal disease, missed dialysis yesterday, presents with chest pain, has significantly low hemoglobin and evidence of upper GI bleed due to having tarry black stool. Patient is on anticoagulation for atrial fibrillation. (1) Hyperkalemia, serum potassium of 8.2 (2) ESRD (end stage renal disease) on dialysis, missed her dialysis yesterday (3) HIV disease (4) Substance abuse, previously had narcotics and cocaine in urine tox screen (5)Severe anemia due to GI bleed which appears to be from the upper side since the patient has tarry black stool indicative of digested blood (6)History of HCV (7) History of hypertensive kidney disease Plan January 19: Patient due for GI procedure today. Status quo. Will order dialysis for tomorrow. Labs and medication reviewed. January 18: RN reports that the patient was dialyzed in error on January 16 instead of January 17. Will order another dialysis today January 18. Meanwhile hemoglobin stays stable. No obvious sign of bleeding. Blood pressure stable. Electrolytes stable. Continue management per PMD and consultants. Discussed with MARTIN Ravi in details. Patient was transfused Continue per GI advice Continue per consultants Keep the blood pressure in check, blood pressure medication adjusted. Discussed with RN Subjective ROS Limited/Unobtainable: No Constitutional: Reports: malaise Objective Objective Last 24 Hour Vital Signs Date Time Temp Pulse Resp B/P (MAP) Pulse Ox O2 Delivery O2 Flow Rate FiO2 01/20/20 10:02 72 18 100 01/20/20 09:45 73 18 100 01/20/20 09:38 97.8 72 23 131/83 100 Nasal Cannula 3 01/20/20 09:33 72 21 131/83 100 Nasal Cannula 3 01/20/20 09:28 97.5 77 18 123/73 100 Nasal Cannula 3 01/20/20 08:00 98.8 66 18 162/75 (104) 100 01/20/20 06:12 161/70 01/20/20 04:35 67 01/20/20 04:00 97.9 66 20 150/70 (96) 98 01/20/20 00:00 98.3 62 19 157/72 (100) 98 01/20/20 00:00 70 01/19/20 21:11 165/87 01/19/20 21:00 Room Air 01/19/20 20:00 65 01/19/20 20:00 98.1 113 20 165/87 (113) 98 01/19/20 16:00 71 01/19/20 16:00 97.7 61 19 120/62 (81) 99 01/19/20 12:00 61 01/19/20 12:00 98.2 62 20 165/81 (109) 100 Intake and Output 01/19/20 01/20/20 19:00 07:00 Intake Total 240 ml Output Total 2000 ml Balance -2000 ml 240 ml Intake Oral 240 ml Output Hemodialysis UF 2000 ml # Voids 2 Laboratory Tests 01/20/20 05:40: White Blood Count 4.7L, Red Blood Count 2.58L, Hemoglobin 7.9L, Hematocrit 25.3L , Mean Corpuscular Volume 98, Mean Corpuscular Hemoglobin 30.6, Mean Corpuscular Hemoglobin Concent 31.2L, Red Cell Distribution Width 15.9H, Platelet Count 166, Mean Platelet Volume 7.1, Neutrophils (%) (Auto) , Lymphocytes (%) (Auto) , Monocytes (%) (Auto) , Eosinophils (%) (Auto) , Basophils (%) (Auto) , Differential Total Cells Counted 100, Neutrophils % ( Manual) 59, Lymphocytes % (Manual) 32, Monocytes % (Manual) 5, Eosinophils % ( Manual) 4H, Basophils % (Manual) 0, Band Neutrophils 0, Platelet Estimate Adequate, Platelet Morphology Normal, Hypochromasia 1+, Anisocytosis 1+, Sodium Level 133L, Potassium Level 4.1, Chloride Level 94L, Carbon Dioxide Level 28, Anion Gap 11, Blood Urea Nitrogen 45H, Creatinine 9.7H, Estimat Glomerular Filtration Rate 4.8, Glucose Level 83, Calcium Level 8.0L, Phosphorus Level 4.9 , Total Bilirubin 0.3, Aspartate Amino Transf (AST/SGOT) 49H, Alanine Aminotransferase (ALT/SGPT) 41, Alkaline Phosphatase 73, C-Reactive Protein, Quantitative < 0.4, Pro-B-Type Natriuretic Peptide [id number], Total Protein 8.4H, Albumin 2.9L, Globulin 5.5, Albumin/Globulin Ratio 0.5L Height (Feet): 5 Height (Inches): 6.00 Weight (Pounds): 159 General Appearance: no apparent distress, lethargic Cardiovascular: normal rate Respiratory/Chest: decreased breath sounds Abdomen: soft Jack Pryor MD Jan 20, 2020 10:42
--- NOTE | 2020-01-20 11:44 | Operative Note - Dictated ---
DATE OF OPERATION: 01/20/2020 GASTROENTEROLOGY PROCEDURE REPORT PROCEDURE: Upper gastrointestinal endoscopy with saline injection, biopsy, snare polypectomy, and Endoclip placement. SURGEON: Alisa Banuelos MD ANESTHESIA: Dr. Callejas. PRE-ENDOSCOPIC DIAGNOSIS: Heme-positive stools and abdominal pain. POST-ENDOSCOPIC DIAGNOSES: 1. A 1.3 cm pedunculated gastric polyp in the cardia of the stomach, status post removal as described below. 2. Status post random biopsies of the normal antrum. 3. No ulcers seen. DESCRIPTION OF PROCEDURE: The procedure, its risks, indications, alternatives, and possible complications including but not limited to bleeding, infection, perforation, , and anesthesia complications were explained to the patient and informed consent was obtained. The patient was then sedated in the left lateral decubitus position and a diagnostic upper endoscope was introduced into oropharynx and advanced to the duodenum without difficulty. The endoscope was then gradually withdrawn and mucosa was examined carefully. Examination of the upper gastrointestinal mucosa revealed a 1.3 centimeter pedunculated gastric polyp in the cardia of the stomach. The remainder of the examination was unremarkable. Biopsies of the antrum were sent to pathology for review. The polyp was then injected with saline to raise it with 1.5 mL of saline. The snare polypectomy device was then used to remove the polyp. Examination of the base revealed a small 2 mm residual portion of the polyp, which was removed with biopsy forceps successfully. Subsequently, a 11 mm Endoclip was placed on the polypectomy site. Specimen was removed with a basket. Endoscope was removed and the patient was sent to Recovery in good condition. COMPLICATIONS: None. RECOMMENDATIONS: 1. Follow up biopsy results. 2. Proton pump inhibitor. 3. Outpatient colonoscopy. 4. Treat Helicobacter pylori if positive. Alisa Banuelos M.D. DR: DAVID JOB#: [id number] CC:
[2020-01-20] MEDS: ALPRAZolam 0.5mg tab ORAL PRN (13:12)
--- NOTE | 2020-01-20 13:30 | Progress Note ---
DATE: 01/19/2020 CARDIOLOGY AND INTERNAL MEDICINE PROGRESS NOTE Late entry. SUBJECTIVE: The patient is status post hemodialysis with ultrafiltration. She has consented to an endoscopy tomorrow. OBJECTIVE: VITAL SIGNS: Blood pressure 165/87, heart rate 61 to 113, respiratory rate 20. She is afebrile. Monitored rhythm is sinus. Rare atrial ectopy. SKIN: Dialysis catheter site clean. LUNGS: Clear. CARDIAC: Regular. Normal S1, S2. ABDOMEN: Soft. EXTREMITIES: No edema. LABORATORY DATA: White count 3.3, hemoglobin 7.8. Potassium 4.5, BUN 57, creatinine 9.4. IMPRESSION: 1. Severe anemia, status post 3 units of packed red blood cells. Hemoccult-positive stool. 2. End-stage renal disease. 3. Cocaine abuse 4. Hypertensive heart disease. 5. HIV positive. 6. Hepatitis C positive. PLAN: 1. Review CT scan of the abdomen. 2. Await endoscopy tomorrow. 3. Continue regular hemodialysis sessions. Nam Barnett M.D. DR: SUPA JOB#: [id number] CC:
--- NOTE | 2020-01-20 13:45 | Progress Note ---
DATE: 01/20/2020 INTERNAL MEDICINE AND CARDIOLOGY PROGRESS NOTE SUBJECTIVE: The patient without distress, remains off anticoagulation. OBJECTIVE: VITAL SIGNS: Blood pressure 131/83, pulse 72, respirations 23. LUNGS: Clear. CARDIAC: Regular. ABDOMEN: Soft. EXTREMITIES: No edema. LABORATORY AND DIAGNOSTIC DATA: CT scan reveals no abnormalities. White count 4.7, hemoglobin 7.9. Potassium 4.1. IMPRESSION: 1. End-stage renal disease with episodes of noncompliance. 2. Hyperkalemia secondary to above, now corrected. 3. HIV disease, stable. 4. Cocaine abuse persistent. 5. Severe anemia due to baseline renal disease and exacerbated by GI bleed, status post 3 units of packed red blood cells. 6. History of hepatitis C. 7. Hypertensive heart disease. 8. Acute on chronic diastolic congestive heart failure. PLAN: 1. Hold anticoagulation. 2. Hemodialysis with ultrafiltration. 3. Await endoscopy. 4. Monitor hemoglobin. 5. Discharge planning with compliance issues addressed by field case manager extensively yesterday. Nam Barnett M.D. DR: SUPA JOB#: [id number] CC:
[2020-01-21] VITALS: BP 157/81
[2020-01-21 04:00] VITALS: BP 168/81
[2020-01-21] MEDS: HydrALAZINE 25mg tab ORAL SCH ×2 (05:42→14:00)
[2020-01-21] MEDS: NovoLOG Insulin Flexpen SUBQ SCH ×3 (06:30→16:30)
[2020-01-21 08:00] VITALS: BP 145/72
[2020-01-21] MEDS: Sucralfate 1gm tab ORAL SCH ×2 (08:52→13:00)
[2020-01-21] MEDS: Citalopram Hydrobromide 10mg Tab ORAL SCH (08:52)
[2020-01-21] MEDS: Pantoprazole Inj IVP SCH (08:53)
[2020-01-21] MEDS: Dolutegravir Sodium 50mg tab ORAL SCH (08:53)
[2020-01-21] MEDS: Darunavir 600mg tab ORAL SCH (08:53)
[2020-01-21] MEDS: ALPRAZolam 0.5mg tab ORAL PRN (09:06)
--- NOTE | 2020-01-21 09:42 | Nephrology Progress Note ---
Assessment/Plan Problem List: (1) ESRD (end stage renal disease) on dialysis (2) Hyperkalemia (3) HIV disease (4) Substance abuse (5) Gastrointestinal bleeding Assessment: Leading to significant anemia (6) HCV antibody positive Assessment This 69-year-old with end-stage renal disease, missed dialysis yesterday, presents with chest pain, has significantly low hemoglobin and evidence of upper GI bleed due to having tarry black stool. Patient is on anticoagulation for atrial fibrillation. (1) Hyperkalemia, serum potassium of 8.2 (2) ESRD (end stage renal disease) on dialysis, missed her dialysis yesterday (3) HIV disease (4) Substance abuse, previously had narcotics and cocaine in urine tox screen (5)Severe anemia due to GI bleed which appears to be from the upper side since the patient has tarry black stool indicative of digested blood (6)History of HCV (7) History of hypertensive kidney disease Plan January 20: Patient due for dialysis today. Can be discharged after that from renal standpoint of view. Continue per PMD and consultants. January 19: Patient due for GI procedure today. Status quo. Will order dialysis for tomorrow. Labs and medication reviewed. January 18: RN reports that the patient was dialyzed in error on January 16 instead of January 17. Will order another dialysis today January 18. Meanwhile hemoglobin stays stable. No obvious sign of bleeding. Blood pressure stable. Electrolytes stable. Continue management per PMD and consultants. Discussed with MARTIN Ravi in details. Patient was transfused Continue per GI advice Continue per consultants Keep the blood pressure in check, blood pressure medication adjusted. Discussed with RN Subjective ROS Limited/Unobtainable: No Constitutional: Reports: malaise Objective Objective Last 24 Hour Vital Signs Date Time Temp Pulse Resp B/P (MAP) Pulse Ox O2 Delivery O2 Flow Rate FiO2 01/21/20 08:53 62 145/72 01/21/20 08:00 97.7 62 17 145/72 (96) 97 01/21/20 06:12 98.0 01/21/20 05:42 151/87 01/21/20 04:00 98.0 73 21 168/81 (110) 99 01/21/20 04:00 62 01/21/20 00:00 65 01/21/20 00:00 62 01/21/20 00:00 98.1 65 18 157/81 (106) 97 01/20/20 22:06 166/85 01/20/20 21:49 Room Air 01/20/20 20:00 98.4 65 21 173/84 (113) 93 01/20/20 20:00 67 01/20/20 16:01 67 01/20/20 16:00 97.7 70 18 159/96 (117) 98 01/20/20 13:08 177/83 01/20/20 12:00 98.1 62 20 177/83 (114) 99 01/20/20 11:36 64 01/20/20 10:02 72 18 100 01/20/20 09:45 73 18 100 Intake and Output 01/20/20 01/21/20 19:00 07:00 Intake Total 560 ml 360 ml Balance 560 ml 360 ml Intake Oral 360 ml 360 ml IV Total 200 ml # Voids 3 # Bowel Movements 2 2 No labs done today Height (Feet): 5 Height (Inches): 6.00 Weight (Pounds): 159 General Appearance: no apparent distress, lethargic Respiratory/Chest: decreased breath sounds Abdomen: soft Jack Pryor MD Jan 21, 2020 09:42
[2020-01-21 12:00] VITALS: BP 170/82
--- NOTE | 2020-01-21 15:29 | General Progress Note ---
Assessment/Plan Status: stable Assessment/Plan: HD today PPI rx hiv rx dc planning today or tomorrow Subjective ROS Limited/Unobtainable: No Constitutional: Reports: malaise, weakness HEENT: Reports: no symptoms Cardiovascular: Reports: no symptoms Respiratory: Reports: cough Gastrointestinal/Abdominal: Reports: no symptoms Genitourinary: Reports: no symptoms Neurologic/Psychiatric: Reports: no symptoms Endocrine: Reports: no symptoms Hematologic/Lymphatic: Reports: anemia Allergies: Coded Allergies: ASPIRIN (Unverified Allergy, Unknown, 01/16/20) IODINE (Verified Allergy, Unknown, 01/07/20) Uncoded Allergies: CONTRAST DYE (Allergy, Unknown, 01/07/20) All Systems: reviewed and negative except above Subjective no events. w/o complaints. no bleeding. asking for dilaudid. Objective Last 24 Hour Vital Signs Date Time Temp Pulse Resp B/P (MAP) Pulse Ox O2 Delivery O2 Flow Rate FiO2 01/21/20 12:00 98.3 65 19 170/82 (111) 96 01/21/20 11:50 65 01/21/20 09:00 Room Air 01/21/20 08:53 62 145/72 01/21/20 08:00 97.7 62 17 145/72 (96) 97 01/21/20 07:45 65 01/21/20 06:12 98.0 01/21/20 05:42 151/87 01/21/20 04:00 98.0 73 21 168/81 (110) 99 01/21/20 04:00 62 01/21/20 00:00 65 01/21/20 00:00 62 01/21/20 00:00 98.1 65 18 157/81 (106) 97 01/20/20 22:06 166/85 01/20/20 21:49 Room Air 01/20/20 20:00 98.4 65 21 173/84 (113) 93 01/20/20 20:00 67 01/20/20 16:01 67 01/20/20 16:00 97.7 70 18 159/96 (117) 98 Intake and Output 01/20/20 01/21/20 19:00 07:00 Intake Total 560 ml 360 ml Balance 560 ml 360 ml Intake Oral 360 ml 360 ml IV Total 200 ml # Voids 3 # Bowel Movements 2 2 Height (Feet): 5 Height (Inches): 6.00 Weight (Pounds): 159 General Appearance: WD/WN Neck: supple Cardiovascular: regular rhythm Respiratory/Chest: lungs clear Abdomen: non tender, soft Edema: no edema noted Arm (L), no edema noted Arm (R), no edema noted Leg (L), no edema noted Leg (R), no edema noted Pedal (L), no edema noted Pedal (R), no edema noted Generalized Michael Peralta MD Jan 21, 2020 15:29
[2020-01-21 16:00] VITALS: BP 167/77
--- NOTE | 2020-01-21 20:12 | General Progress Note ---
Assessment/Plan Status: stable Assessment/Plan: Assessment - Dark stools,OB (+) - EGD negative - constipation - Anemia, partly based on renal failure - HIV - HCV - outpatient eradication - ESRD - Abd pain - resolved - COVID (-) Recommendations - laxative PRN - monitor H&H - Transfuse PRN - outpatient HCV eradication - Outpatient colonoscopy Subjective Allergies: Coded Allergies: ASPIRIN (Unverified Allergy, Unknown, 01/16/20) IODINE (Verified Allergy, Unknown, 01/07/20) Uncoded Allergies: CONTRAST DYE (Allergy, Unknown, 01/07/20) Subjective above noted abd pain better advised needs outpatient Colonoscopy advised needs outpatient Hep C eradication Objective Last 24 Hour Vital Signs Date Time Temp Pulse Resp B/P (MAP) Pulse Ox O2 Delivery O2 Flow Rate FiO2 01/21/20 16:00 98.2 55 18 167/77 (107) 96 01/21/20 15:34 63 01/21/20 12:00 98.3 65 19 170/82 (111) 96 01/21/20 11:50 65 01/21/20 09:00 Room Air 01/21/20 08:53 62 145/72 01/21/20 08:00 97.7 62 17 145/72 (96) 97 01/21/20 07:45 65 01/21/20 06:12 98.0 01/21/20 05:42 151/87 01/21/20 04:00 98.0 73 21 168/81 (110) 99 01/21/20 04:00 62 01/21/20 00:00 65 01/21/20 00:00 62 01/21/20 00:00 98.1 65 18 157/81 (106) 97 01/20/20 22:06 166/85 01/20/20 21:49 Room Air Intake and Output 01/20/20 01/21/20 19:00 07:00 Intake Total 560 ml 360 ml Balance 560 ml 360 ml Intake Oral 360 ml 360 ml IV Total 200 ml # Voids 3 # Bowel Movements 2 2 Height (Feet): 5 Height (Inches): 6.00 Weight (Pounds): 159 Objective WDWN AA woman NCAT supple CTA RRR abd soft, non tender, no masses ext no edema Alisa Banuelos MD Jan 21, 2020 20:12
--- NOTE | 2020-01-23 22:01 | Discharge Summary ---
Discharge Summary Discharge Summary _ DATE OF ADMISSION: 01/16/2020 DATE OF DISCHARGE: 01/21/2020 CONSULTANTS: Dr. Alisa Pryor BRIEF HOSPITAL COURSE: Patient is a 69-year-old -[place] female with end-stage renal disease, who was hospitalized a week prior due to hyperkalemia secondary to noncompliance with dialysis session. She was stabilized medically and was discharged home with dialysis resumption. The patient attended one dialysis session, but missed the subsequent. She presented to ED with complaints of black stools and diarrhea. She denied any nausea or vomiting. There was no loss of consciousness or shortness of breath. She had nonproductive cough. COVID-19 was negative the week prior. Patient is on blood thinner for atrial fibrillation. She has medical history significant for hypertensive heart disease, type 2 diabetes mellitus, depression, HIV, hepatitis C, end-stage renal disease and paroxysmal atrial fibrillation. Upon evaluation at ED, blood work showed hemoglobin of 4.4 and hematocrit 14. Platelet count 127. Sodium was 133. Potassium was critically high at 8.2. BUN was 145 and creatinine 16.8. Troponin was negative. Urine toxicology was positive for benzodiazepine and cocaine. Hyperkalemia treatment was started. She was given Kayexalate, sodium bicarbonate, albuterol, insulin, dextrose and calcium gluconate. Blood transfusion was also initiated. She was then admitted to stepdown unit for evaluation of severe anemia and hypokalemia. Media Relations Associate was consulted. Emergent hemodialysis was ordered. Anticoagulation was placed on hold. She was placed on n.p.o. and was given proton pump inhibitor. Patient received emergency dialysis. Potassium normalized. GI was consulted. Patient reported dark stools. She never had colonoscopy or any endoscopy. She denied use of NSAIDs or aspirin. She was continued on blood transfusion. She was started on clear liquid diet. Continued on PPI. Hemoglobin improved following transfusion. She was given IV iron and subcutaneous vitamin B12. She continued to have abdominal pain. CAT scan of the abdomen and pelvis without contrast did not show any etiology for the abdominal pain. Stool OB was positive. On 01/20/2020, she underwent upper GI endoscopy. Examination of the upper gastrointestinal mucosa revealed a 1.3 cm pedunculated gastric polyp in the cardia of the stomach. Biopsies of the antrum were sent to pathology for review. A snare polypectomy device was used to remove the polyp. Subsequently , an Endo Clip was placed on the polypectomy site. She tolerated procedure well and patient was sent to recovery room in good condition. She was tolerating diet well. Hemoglobin level was stable. Due to noncompliance with hemodialysis, patient was recommended SNF placement, however, patient refused. Patient was then discharged home with home health. Arrangement for outpatient hemodialysis and transportation was arranged. Biopsy of the stomach showed moderate chronic gastritis. No evidence of dysplasia or malignancy. Polyp biopsy showed hyperplastic polyp with no evidence of dysplasia or malignancy. Patient was eventually discharged home. FINAL DIAGNOSES: Severe anemia due to baseline renal disease and exacerbated by acute GI bleed, status post 3 units packed RBC transfusion; status post EGD with biopsy, snare polypectomy and Endo Clip placement End-stage renal disease with episodes of noncompliance Hyperkalemia secondary to noncompliance with hemodialysis HIV disease, stable Persistent cocaine abuse Hepatitis C Hypertensive heart disease Acute on chronic diastolic congestive heart failure DISPOSITION: Home with home health. DISCHARGE INSTRUCTIONS: Follow-up in a week. I have been assigned to complete a discharge summary on this account, I was not involved with the patient's management.--MILANA Bauman Jacqueline Robles NP Jan 23, 2020 22:01
--- NOTE | 2020-01-25 21:57 | Endoscopy Procedure Note ---
Endoscopy Procedure Note General Indication for Procedure: Heme (+) Procedures Performed: EGD Operative Findings/Diagnosis: 1. A 1.3 cm pedunculated gastric polyp in the cardia of the stomach Specimen: yes Pt Tolerated Procedure Well: Yes Estimated Blood Loss: none Anesthesia Anesthesiologist: see report Anesthesia: MAC, moderate sedation Inserted Devices Implant(s) used?: No GI Core Measures 50 yrs or older w/o bx or poly: Not Applicable 10yrs. F/U recommended: Not Applicable Alisa Banuelos MD Jan 25, 2020 21:57
== END 2020-01-21 18:15 | disposition home health service (06) | DRG 377 ==
LOC: EDBD 13:56 → EMR 14:51 → 2E 14:56 → EDBEDREQ 15:38 → 2E 01-17 19:47
PROC: 30233N1 Transfusion of Nonautologous Red Blood Cells into Peripheral Vein, Percutaneous Approach (ICD-10-PCS; principal; 2020-01-16)
PROC: 0DB78ZX Excision of Stomach, Pylorus, Via Natural or Artificial Opening Endoscopic, Diagnostic (ICD-10-PCS; 2020-01-20 09:04)
PROC: 0DB68ZZ Excision of Stomach, Via Natural or Artificial Opening Endoscopic (ICD-10-PCS; 2020-01-20 09:04)
DX: K92.2 Gastrointestinal hemorrhage, unspecified (principal); N18.6 End stage renal disease; I50.33 Acute on chronic diastolic (congestive) heart failure; I12.0 Hypertensive chronic kidney disease with stage 5 chronic kidney disease or end stage renal disease; D68.4 Acquired coagulation factor deficiency; D62 Acute posthemorrhagic anemia; E87.5 Hyperkalemia; I48.0 Paroxysmal atrial fibrillation; Z79.82 Long term (current) use of aspirin; Z91.041 Radiographic dye allergy status; B19.20 Unspecified viral hepatitis C without hepatic coma; Z91.15 Patient's noncompliance with renal dialysis; E11.22 Type 2 diabetes mellitus with diabetic chronic kidney disease; Z99.2 Dependence on renal dialysis; F14.10 Cocaine abuse, uncomplicated; K31.7 Polyp of stomach and duodenum; E53.8 Deficiency of other specified B group vitamins; K59.00 Constipation, unspecified
CPT/HCPCS: 36415; 71045; 74018; 74176; 80053; 80307; 81003; 82270; 82550; 82607; 82728; 82746; 82962; 82977; 83036; 83540; 83550; 83615; 83690; 83735; 83880; 84100; 84484; 84550; 85007; 85025; 85610; 85730; 86140; 86706; 86850; 86900; 86901; 86920; 87081; 93005; 94003; 94150; 94640; 96374; 96375; 96376; 99291; J1815; J2405

== ENCOUNTER 2020-02-09 14:13 | Inpatient (IN) | payer MEDICARE ==
[~2020-02-09] VITALS: Ht 172.7 cm; Wt 82.1 kg
--- NOTE | 2020-02-09 14:35 | NUR ---
ED Nurse Note: Pt brought in by ambulance from home d/t back/abd/vagina pain since yesterday. Swelling and redness noted on left labia majora. Pt missed dialysis for 6 days d/t vaginal pain. Last HD of last week. Respirations even and unlabored on room air. BP elevated @200/100. All other vitals stable as documented.
[2020-02-09 14:40] VITALS: BP 201/104
--- NOTE | 2020-02-09 15:20 | Emergency Room Report ---
History of Present Illness General Chief Complaint: Pain Source: Patient Present Illness HPI This patient has a history of end-stage renal disease. She does have a history of noncompliance with her dialysis. She states that over the past week she has noted pain in her left vulva. She states she feels like she has a "cyst" here. She states that she has been unable to sit and so that is why she missed dialysis for the past week. She denies fever or chills. She denies nausea or vomiting. She denies cough or congestion. She has no other complaints. Allergies: Coded Allergies: ASPIRIN (Unverified Allergy, Unknown, 01/16/20) IODINE (Verified Allergy, Unknown, 01/07/20) Uncoded Allergies: CONTRAST DYE (Allergy, Unknown, 01/07/20) COVID-19 Screening Contact w/high risk pt: No Recent Travel to affected area: No Experienced COVID-19 symptoms?: No COVID-19 symptoms experienced: Cough, Flu-Like Symptoms COVID-19 Testing performed AUTOCUTTER: No Patient History Past Medical History: see triage record, DM, HTN, HIV, renal disease, dialysis Social History: Denies: smoking, alcohol use, drug use Reviewed Nursing Documentation: PMH: Agreed; PSxH: Agreed Nursing Documentation-PMH Hx Hypertension: Yes Hx Diabetes: Yes Hx Cancer: No Hx Dialysis: Yes - HD t//fri CKD Hx Seizures: No Review of Systems All Other Systems: negative except mentioned in HPI Physical Exam Vital Signs Date Time Temp Pulse Resp B/P (MAP) Pulse Ox O2 Delivery O2 Flow Rate FiO2 02/09/20 14:15 98.4 94 16 199/103 (135) 100 Room Air Sp02 EP Interpretation: reviewed, normal General Appearance: no apparent distress, alert, GCS 15, non-toxic Head: normocephalic, atraumatic Eyes: bilateral eye normal inspection, bilateral eye PERRL ENT: hearing grossly normal, normal pharynx, no angioedema, normal voice Neck: full range of motion, supple/symm/no masses Respiratory: chest non-tender, lungs clear, normal breath sounds, no respiratory distress, no retraction, no accessory muscle use, speaking full sentences Cardiovascular #1: regular rate, rhythm, no edema Gastrointestinal: normal bowel sounds, non tender, soft, non-distended, no guarding, no rebound Rectal: deferred Genitourinary: other - L. vulva swollen and erythematous with fluctuance over the Bartholin's gland. Musculoskeletal: back normal, normal range of motion, calf tenderness, gait/ station normal, non-tender Neurologic: alert, motor strength/tone normal, oriented x3, sensory intact, responsive, speech normal Psychiatric: judgement/insight normal, memory normal, mood/affect normal, no suicidal/homicidal ideation Skin: no rash, other - See above in Procedures Incision and Drainage Incision and Drainage : Consent: Verbal Site: L. vulva Blade Size: 11 I & D Procedure: betadine prep, sterile drapes applied, sterile dressing applied, gauze wick placed - Word catheter placed Wound Location: other - L. vulva Wound's Depth, Shape: superficial Anesthesia: 1% Lidocaine Volume Anesthetic (ccs): 3 Patient Tolerated: Well Complications: None Progress A Word catheter was placed in standard fashion without complication or incident. Medical Decision Making Diagnostic Impression: Primary Impression: Hyperkalemia Additional Impressions: ESRD (end stage renal disease) on dialysis Missed dialysis Bartholin's gland abscess Vulval cellulitis Hypoglycemia Anemia ER Course This patient presents after missing dialysis 1 week. She is hyperkalemic with a potassium of 7.4. He does have peaked T waves on her EKG. She was given calcium gluconate, insulin and glucose with close monitoring of her blood sugar secondary to the initial blood sugar of 68. She is also given a high carbohydrate meal. She was given albuterol to also lower her potassium. Nephrology and the dialysis company were consulted emergently and the dialysis nurse was awaiting this patient's arrival to her inpatient room for immediate emergency dialysis. I did drain the patient's Bartholin gland abscess without complication or incident. See my procedure note. She was given IV antibiotics as a precaution given that the vulva appeared to also have an associated cellulitis. Patient is admitted for emergency dialysis and further evaluation and treatment. This patient is critically ill. This patient required complex medical decision- making, aggressive intervention, extensive laboratory workup and monitoring. Critical care time: 40 minutes. Laboratory Tests Test 02/09/20 15:40 02/09/20 15:50 02/09/20 17:01 Urine Color Pale yellow Urine Appearance Slightly cloudy Urine pH 8 (4.5-8.0) Urine Specific Smilax 1.010 (1.005-1.035) Urine Protein 4+ (NEGATIVE) H Urine Glucose (UA) Negative (NEGATIVE) Urine Ketones Negative (NEGATIVE) Urine Blood 3+ (NEGATIVE) H Urine Nitrite Negative (NEGATIVE) Urine Bilirubin Negative (NEGATIVE) Urine Urobilinogen Normal MG/DL (0.0-1.0) Urine Leukocyte Esterase 1+ (NEGATIVE) H Urine RBC 20-30 /HPF (0 - 2) H Urine WBC 5-10 /HPF (0 - 2) H Urine Squamous Epithelial Cells Moderate /LPF (NONE/OCC) H Urine Bacteria Few /HPF (NONE) Urine Opiates Screen Negative (NEGATIVE) Urine Barbiturates Screen Negative (NEGATIVE) Phencyclidine (PCP) Screen Negative (NEGATIVE) Urine Amphetamines Screen Negative (NEGATIVE) Urine Benzodiazepines Screen Negative (NEGATIVE) Urine Cocaine Screen Positive (NEGATIVE) H Urine Marijuana (THC) Screen Negative (NEGATIVE) White Blood Count 5.4 K/UL (4.8-10.8) Red Blood Count 2.55 M/UL (4.20-5.40) L Hemoglobin 7.8 G/DL (12.0-16.0) L Hematocrit 24.2 % (37.0-47.0) L Mean Corpuscular Volume 95 FL (80-99) Mean Corpuscular Hemoglobin 30.6 PG (27.0-31.0) Mean Corpuscular Hemoglobin Concent 32.2 G/DL (32.0-36.0) Red Cell Distribution Width 14.8 % (11.6-14.8) Platelet Count 134 K/UL (150-450) L Mean Platelet Volume 5.4 FL (6.5-10.1) L Neutrophils (%) (Auto) 78.2 % (45.0-75.0) H Lymphocytes (%) (Auto) 17.0 % (20.0-45.0) L Monocytes (%) (Auto) 8.5 % (1.0-10.0) Eosinophils (%) (Auto) 3.4 % (0.0-3.0) H Basophils (%) (Auto) 1.0 % (0.0-2.0) Differential Total Cells Counted 100 Neutrophils % (Manual) 75 % (45-75) Lymphocytes % (Manual) 20 % (20-45) Monocytes % (Manual) 5 % (1-10) Eosinophils % (Manual) 0 % (0-3) Basophils % (Manual) 0 % (0-2) Band Neutrophils 0 % (0-8) Platelet Estimate Decreased L Platelet Morphology Normal Hypochromasia 1+ Anisocytosis 1+ Prothrombin Time 11.7 SEC (9.30-11.50) H Prothrombin Time INR 1.1 (0.9-1.1) Activated Partial Thromboplast Time 31 SEC (23-33) Sodium Level 134 MMOL/L (136-145) L Potassium Level 7.4 MMOL/L (3.5-5.1) *H Chloride Level 98 MMOL/L (98-107) Carbon Dioxide Level 19 MMOL/L (21-32) L Anion Gap 17 mmol/L (5-15) H Blood Urea Nitrogen 81 mg/dL (7-18) H Creatinine 17.5 MG/DL (0.55-1.30) H Estimated Glomerular Filtration Rate 2.4 mL/min (>60) Glucose Level 68 MG/DL (74-106) L Calcium Level 8.3 MG/DL (8.5-10.1) L Phosphorus Level 6.8 MG/DL (2.5-4.9) H Magnesium Level 2.8 MG/DL (1.8-2.4) H Total Bilirubin 0.3 MG/DL (0.2-1.0) Aspartate Amino Transferase (AST) 22 U/L (15-37) Alanine Aminotransferase (ALT) 19 U/L (12-78) Alkaline Phosphatase 74 U/L (46-116) Total Creatine Kinase 196 U/L (26-308) Creatine Kinase MB 3.3 NG/ML (0.0-3.6) Creatine Kinase MB Relative Index 1.6 Troponin I 0.007 ng/mL (0.000-0.056) Total Protein 9.4 G/DL (6.4-8.2) H Albumin 3.8 G/DL (3.4-5.0) Globulin 5.6 g/dL Albumin/Globulin Ratio 0.7 (1.0-2.7) L POC Whole Blood Glucose Pending EKG Diagnostic Results Rate: normal Rhythm: NSR ST Segments: other - Peaked T-waves Rhythm Strip Diag. Results EP Interpretation: yes Rate: 80's Rhythm: NSR, no PVC's, no ectopy Chest X-Ray Diagnostic Results Chest X-Ray Diagnostic Results : Chest X-Ray Ordered: Yes # of Views/Limited/Complete: 1 View Indication: Other EP Interpretation: Yes Interpretation: no consolidation, no effusion, no pneumothorax, no acute cardiopulmonary disease Impression: No acute disease Electronically Signed by: Chiquita Liu DO Last Vital Signs Date Time Temp Pulse Resp B/P (MAP) Pulse Ox O2 Delivery O2 Flow Rate FiO2 02/09/20 14:15 98.4 94 16 199/103 (135) 100 Room Air Disposition: ADMITTED INPATIENT Condition: Critical Chiquita Liu DO Feb 09, 2020 15:20
--- NOTE | 2020-02-09 15:25 | NUR ---
ED Nurse Note: Pt hard stick. ED MD aware. Called for US inserted IV.
[2020-02-09] MEDS ORDERED: HYDROcodone/Acetamin 5/325 tab ORAL ONE (15:30)
[2020-02-09 15:53] LABS: BILIRUBIN, URINE NEGATIVE (NEGATIVE); COLOR,URINE PALE YELLOW; GLUCOSE, URINE (UA) NEGATIVE (NEGATIVE); KETONES,URINE NEGATIVE (NEGATIVE); LEUKOCYTE ESTERASE ,URINE 1+ (NEGATIVE); NITRITE,URINE NEGATIVE (NEGATIVE); PH,URINE 8 (4.5-8.0); PROTEIN,URINE 4+ (NEGATIVE); UROBILINOGEN,URINE NORMAL MG/DL (0.0-1.0)
--- NOTE | 2020-02-09 16:00 | Consultation ---
Consult Note Consult Note I am asked to evaluate the patient at the request of Dr. Barnett for dialysis management. Patient is very well-known to me from her previous admissions here at [facility]. Patient was seen in room 5 in emergency room. Discussed with emergency room physician. Patient missed 1 week of dialysis secondary pain that the emergency room doctor is attributing to an infected Bartholin cyst. Past history: Previous frequent chest pains. Anemia and evidence of upper GI bleed and tar[employer] in the past. Patient was on anticoagulation for atrial fibrillation however it is unclear how compliant the patient is. History of frequent hyperkalemia due to missing hemodialysis. End-stage renal disease on hemodialysis. The patient has a right chest permacath which is not dressed and appears to either be infected or very prone to infection. HIV disease. Substance abuse with previous urine test positive for narcotics and cocaine. History of hepatitis C virus. History of hypertensive kidney disease. Patient interviewed and examined. Blood work it still pending. Old chart reviewed. Medication list: Tylenol Norvasc Celexa clonidine as needed darunavir hydralazine insulin Protonix and Carafate. Compliance very questionable Vital Signs Date Time Temp Pulse Resp B/P (MAP) Pulse Ox O2 Delivery O2 Flow Rate FiO2 02/09/20 14:15 98.4 94 16 199/103 (135) 100 Room Air Sp02 EP Interpretation: reviewed, normal PHYSICAL EXAMINATION: VITAL SIGNS: Blood pressure in the emergency room 199/103, heart rate 94, respiratory rate 16, afebrile. HEENT: Temporal wasting. Pale conjunctivae. Arcus senilis. Oropharynx clear. NECK: Supple. Jugular venous pressure moderately elevated. LUNGS: With diminished breath sounds. Few rales bilaterally. CARDIAC: Regular rhythm and rate. Point of maximum impulse laterally displaced. Normal S1, S2. There is a fourth heart sound and a 1/6 systolic apical murmur. ABDOMEN: Soft, nontender. EXTREMITIES: No edema. Genitourinary: other - L. vulva swollen and erythematous with fluctuance over the Bartholin's gland. SKIN: Right chest PermCath site has no dressing and erythema noted.See above in LABORATORY AND DIAGNOSTIC DATA: EKG reveals sinus rhythm at 80 with no acute T-wave changes or heart block. Chest x-ray with no acute process. White count 5.4, hemoglobin 7.8. Potassium 7.4, bicarb 19, sodium 134, BUN 81, creatinine 17.5. Albumin 3.8. Troponin negative. . Assessment/Plan Impression: End-stage renal disease, missed hemodialysis presents with hyperkalemia, anemia, Bartholin cyst infection Other conditions as mentioned above in the past history: Previous frequent chest pains. Anemia and evidence of upper GI bleed and tar[employer] in the past. Patient was on anticoagulation for atrial fibrillation however it is unclear how compliant the patient is. History of frequent hyperkalemia due to missing hemodialysis. End-stage renal disease on hemodialysis. The patient has a right chest permacath which is not dressed and appears to either be infected or very prone to infection. HIV disease. Substance abuse with previous urine test positive for narcotics and cocaine. History of hepatitis C virus. History of hypertensive kidney disease. Re-eval: 5.45 pm Lab results now ready and reviewed change the dialysis to stat and ordered Kayexelate PO Adjust blood pressure medications Antibiotics Per PMD I spent an additional 36 minutes on review of medical records including prior hospital records,consult notes, progress notes, imaging labs, multiple conversation with RN in person and over the phone and other clinical documentation. Jack Pryor MD Feb 09, 2020 16:00
--- NOTE | 2020-02-09 16:03 | NUR ---
ED Nurse Note: left upper arm IV inserted via US. Blood sent to lab
[2020-02-09 16:11] LABS: APPEARANCE,URINE SLIGHTLY CLOUDY
--- NOTE | 2020-02-09 16:11 | NUR ---
ED Nurse Note: ED MD aware of BP of 200/100; no new orders given
[2020-02-09 16:15] LABS: HEMATOCRIT 24.2 % (37.0-47.0); HEMOGLOBIN 7.8 G/DL (12.0-16.0); MEAN CORPUSCULAR VOLUME 95 FL (80-99); PLATELET COUNT 134 K/UL (150-450); RED BLOOD COUNT 2.55 M/UL (4.20-5.40); RED CELL DISTRIBUTION WIDTH 14.8 % (11.6-14.8); WHITE BLOOD COUNT 5.4 K/UL (4.8-10.8)
[2020-02-09] MEDS ORDERED: Lidocaine 1% MPF 10mg/ml 5ml INJ ONE (16:15)
[2020-02-09] MEDS ORDERED: HYDROcodone/Acetamin 7.5/325 tab ORAL SCH (16:15)
[2020-02-09] MEDS ORDERED: Lidocaine 1% MPF 10mg/ml 5ml ONE (16:18)
[2020-02-09 16:26] LABS: INR 1.1 (0.9-1.1)
[2020-02-09 16:30] VITALS: BP 204/99
[2020-02-09] MEDS ORDERED: Morphine Sulfate 4mg/ml Inj (IV USE ONLY) IVP ONE (16:30)
[2020-02-09 16:32] LABS: NEUTROPHILS % (AUTO) 78.2 % (45.0-75.0)
[2020-02-09 16:33] LABS: EOSINOPHILS % (AUTO) 3.4 % (0.0-3.0); MONOCYTES % (AUTO) 8.5 % (1.0-10.0)
--- NOTE | 2020-02-09 16:33 | Diagnostic Imaging Report ---
Indication: Chest pain Technique: One view of the chest Comparison: 01/16/2020 Findings: Hours enlarged. The lungs and pleural spaces are clear. There is a right chest tunneled dialysis catheter again noted. Findings are unchanged Impression: No acute process
[2020-02-09 16:43] LABS: ALANINE AMINOTRANSFERASE 19 U/L (12-78); ALBUMIN 3.8 G/DL (3.4-5.0); ALBUMIN/GLOBULIN RATIO 0.7 (1.0-2.7); ALKALINE PHOSPHATASE 74 U/L (46-116); ANION GAP 17 mmol/L (5-15); ASPARTATE AMINO TRANSFERASE 22 U/L (15-37); BILIRUBIN,TOTAL 0.3 MG/DL (0.2-1.0); BLOOD UREA NITROGEN 81 mg/dL (7-18); CALCIUM 8.3 MG/DL (8.5-10.1); CARBON DIOXIDE 19 MMOL/L (21-32); CHLORIDE 98 MMOL/L (98-107); CKMB 3.3 NG/ML (0.0-3.6); CREATINE KINASE 196 U/L (26-308); CREATININE 17.5 MG/DL (0.55-1.30); PHOSPHORUS 6.8 MG/DL (2.5-4.9); SODIUM 134 MMOL/L (136-145)
[2020-02-09 16:45] LABS: POTASSIUM 7.4 MMOL/L (3.5-5.1)
--- NOTE | 2020-02-09 16:46 | NUR ---
ED Nurse Note: Incision and drainage done @ bedside by ED MD.
[2020-02-09] MEDS ORDERED: Insulin Human Regular 100units/ml 3ml IV ONE (17:00)
[2020-02-09] MEDS ORDERED: Albuterol ud Inhalation HHN ONE (17:00)
[2020-02-09] MEDS ORDERED: ceFAZolin sod 1 GM in NS 55 ML IVPB ONE (17:00)
[2020-02-09] MEDS ORDERED: Calcium Gluconate 1gm/50ml 50 ML IVPB ONE (17:00)
--- NOTE | 2020-02-09 17:04 | NUR ---
ED Nurse Note: BS 68. ED MD aware. Per MD, administer D50, wait 15 minutes, then give insulin. Recheck BS in 30 minutes. Order noted and carried out.
--- NOTE | 2020-02-09 17:11 | NUR ---
[facility] HAS BEEN NOTIFIED REGARDING THE DIALYSIS
--- NOTE | 2020-02-09 17:19 | NUR ---
ED Nurse Note: insulin administered. Will recheck BS in 15 minutes and make ED MD aware of results.
--- NOTE | 2020-02-09 17:32 | NUR ---
ED Nurse Note: BS now 156. ED MD aware and said pt is okay to go up to 2E. Will call for report
--- NOTE | 2020-02-09 17:40 | NUR ---
ED Nurse Note: Pt transferred safely to with all belongings. Bedside report given to MARTIN Adamson. trainmaster @ Bedside for STAT HD. MARTIN Adamson made aware of insulin administration and pt's earlier BS of 68. RN to recheck BS. Snow also aware of word cath.
[2020-02-09] MEDS ORDERED: Sodium Polystyrene Sulfonate 15gm Powder ORAL SCH (17:45)
[2020-02-09] MEDS: Docusate 100mg cap ORAL SCH (18:00)
[2020-02-09] MEDS ORDERED: Docusate 100mg cap ORAL SCH (18:00)
[2020-02-09] MEDS: HydrALAZINE 25mg tab ORAL SCH (18:00)
[2020-02-09] MEDS: Renvela 2400 mg pkt ORAL SCH (18:00)
--- NOTE | 2020-02-09 18:08 | NUR ---
NURSE NOTES: [id number] patient for ED, report from Wilma SALAZAR. Emergency dialysis started, consent secured and placed in chart. Unable to assess skin at the moment. Belongings accounted for. Will call MD for orders.
--- NOTE | 2020-02-09 19:28 | NUR ---
HAND-OFF: Report given to Cindi SALAZAR/Saba SALAZAR. Spoke to Dr Barnett, to review medications before giving orders.
--- NOTE | 2020-02-09 19:30 | NUR ---
NURSE NOTES: Received report from MARTIN Adamson. Patient currently on dialysis with dialysis nurse at bedside. Patient is alert and oriented x4. No SOB or distress. Bed is at lowest position and locked with side rails up. radiation monitor intact and functioning. Call light and bedside table is within reach. Will continue plan of care and to follow up with admission orders.
[2020-02-09 20:00] VITALS: BP 145/89
--- NOTE | 2020-02-09 23:08 | NUR ---
NURSE NOTES: Called Dr. Pryor regarding Kayexalate not administered earlier due to patient being on dialysis. He ordered to cancel order for Kayexalate and not to give anymore since she had dialysis. He stated to follow up with lab results in the morning.
--- NOTE | 2020-02-09 23:15 | NUR ---
NURSE NOTES: Called and left message with Dr. Handy regarding pain medication request. Patient complains of severe pain and medication not yet verified. Patient is also requesting order for sleeping pill and anti-anxiety medication. Will await call back.
[2020-02-10] VITALS (7 sets, daily range): BP systolic 128–152; BP diastolic 64–89
[2020-02-10] MEDS: HYDROcodone/Acetamin 7.5/325 tab ORAL PRN ×3 (00:22→18:04)
[2020-02-10] MEDS: HydrALAZINE 25mg tab ORAL SCH ×2 (00:23→05:37)
--- NOTE | 2020-02-10 01:30 | Consultation ---
DATE OF CONSULTATION: 02/09/2020 CARDIOLOGY CONSULTATION CONSULTING PHYSICIAN: Nam Barnett MD. REQUESTING PHYSICIAN: Michael Peralta MD. REASON FOR CONSULTATION: Hyperkalemia and hypertensive urgency in the setting of end-stage renal disease. HISTORY: This is a 69-year-old female with multiple medical problems. She has end-stage renal disease and is on hemodialysis and has had repeated episodes of noncompliance. She was hospitalized here twice over the past month for noncompliance with dialysis that resulted in significant complications such as hyperkalemia and heart failure. The patient did not go to dialysis for the past week because of pain in her left vulval region. In the emergency room, she had a Bartholin cyst noted that was drained. She was also noted to have significant blood pressure elevations and potassium level above 7. PAST MEDICAL HISTORY: End-stage renal disease, hypertensive heart disease, type 2 diabetes mellitus, HIV positive, hepatitis C positive, anemia of chronic kidney disease, paroxysmal atrial fibrillation, anxiety, depression, and chronic diastolic congestive heart failure. ALLERGIES: Include iodine contrast and aspirin. MEDICATIONS: Medications prior to admission, reviewed and reconciled; however, compliance is poor. SOCIAL HISTORY: She has used cocaine in the past and had a positive cocaine screen at this hospital on each of her last two hospital stays. She denies smoking or alcohol use. FAMILY HISTORY: Noncontributory. REVIEW OF SYSTEMS: No fevers or chills. No COVID-19 contact. No history of retinopathy or loss of vision. No seizures. She has not noted any rectal bleeding. No change in bowel habits. Echocardiogram done in the last month revealed normal ejection fraction with concentric hypertrophy. She has not had any chest pain and denies history of heart attack. There is no history of abnormal blood clotting. There is no history of asthma, COPD, or positive PPD. The patient has been on anticoagulation in the past for cardioembolic prophylaxis. Because of bleeding complications, that was discontinued in the past. PHYSICAL EXAMINATION: VITAL SIGNS: Blood pressure in the emergency room 199/103, heart rate 94, respiratory rate 16, afebrile. HEENT: Temporal wasting. Pale conjunctivae. Arcus senilis. Oropharynx clear. NECK: Supple. Jugular venous pressure moderately elevated. LUNGS: With diminished breath sounds. Few rales bilaterally. CARDIAC: Regular rhythm and rate. Point of maximum impulse laterally displaced. Normal S1, S2. There is a fourth heart sound and a 1/6 systolic apical murmur. ABDOMEN: Soft, nontender. EXTREMITIES: No edema. SKIN: Right chest PermCath site has no dressing and erythema noted. LABORATORY AND DIAGNOSTIC DATA: EKG reveals sinus rhythm at 80 with no acute T-wave changes or heart block. Chest x-ray with no acute process. White count 5.4, hemoglobin 7.8. Potassium 7.4, bicarb 19, sodium 134, BUN 81, creatinine 17.5. Albumin 3.8. Troponin negative. IMPRESSIONS: 1. Noncompliance with hemodialysis sessions. 2. Hyperkalemia. 3. Metabolic and toxic encephalopathies. 4. Possible dialysis catheter site infection. 5. Hypertensive urgency. 6. Acute on chronic diastolic congestive heart failure. 7. History of cocaine abuse. 8. Hepatitis C positivity. 9. HIV positivity. 10. Paroxysmal atrial fibrillation. PLAN: Urgent hemodialysis with ultrafiltration. Cardiac monitoring. The patient has been given Kayexalate in the interim. Stepwise resumption of antihypertensive regimen. Urine-tox screen. Further recommendations will follow. Based on prior bleeding history and compliance issues, anticoagulation is not recommended for this patient at this time. Nam Barnett M.D. DR: Yahaira JOB#: [id number] CC:
[2020-02-10] MEDS: ALPRAZolam 0.5mg tab ORAL PRN ×3 (01:36→20:02)
[2020-02-10] MEDS: DiphenhydrAMINE 50mg/ml Inj IVP PRN ×3 (03:05→20:02)
[2020-02-10 07:11] LABS: MEAN CORPUSCULAR VOLUME 95 FL (80-99); PLATELET COUNT 120 K/UL (150-450); RED CELL DISTRIBUTION WIDTH 13.8 % (11.6-14.8); WHITE BLOOD COUNT 5.4 K/UL (4.8-10.8)
[2020-02-10 07:36] LABS: HEMOGLOBIN 6.8 G/DL (12.0-16.0)
[2020-02-10 07:39] LABS: % IRON SATURATION 23 % (15-50); IRON 40 ug/dL (50-175); TOTAL IRON BINDING CAPACITY 172 ug/dL (250-450)
[2020-02-10 07:48] LABS: ALANINE AMINOTRANSFERASE 11 U/L (12-78); ALBUMIN 3.2 G/DL (3.4-5.0); ALBUMIN/GLOBULIN RATIO 0.6 (1.0-2.7); ALKALINE PHOSPHATASE 60 U/L (46-116); ANION GAP 13 mmol/L (5-15); ASPARTATE AMINO TRANSFERASE 13 U/L (15-37); BILIRUBIN,TOTAL 0.2 MG/DL (0.2-1.0); BLOOD UREA NITROGEN 45 mg/dL (7-18); CALCIUM 7.7 MG/DL (8.5-10.1); CARBON DIOXIDE 26 MMOL/L (21-32); CHLORIDE 96 MMOL/L (98-107); CHOLESTEROL 121 MG/DL (< 200); CREATININE 11.4 MG/DL (0.55-1.30); FERRITIN 944 NG/ML (8-388); GAMMA GLUTAMYL TRANSPEPTIDASE 110 U/L (5-85); HDL CHOLESTEROL 52 MG/DL (40-60); PHOSPHORUS 5.6 MG/DL (2.5-4.9); POTASSIUM 5.4 MMOL/L (3.5-5.1); SODIUM 135 MMOL/L (136-145); TRIGLYCERIDES 71 MG/DL (30-150)
--- NOTE | 2020-02-10 07:48 | NUR ---
HAND-OFF: Report given to MARTIN Adamson. Pt stable.
[2020-02-10] MEDS ORDERED: HYDROmorphone 1mg/ml Carpuject IVP SCH (08:15)
[2020-02-10] MEDS: Docusate 100mg cap ORAL SCH ×3 (08:18→18:03)
[2020-02-10] MEDS: Renvela 2400 mg pkt ORAL SCH ×3 (08:19→18:03)
--- NOTE | 2020-02-10 09:14 | History and Physical Report ---
DATE OF ADMISSION: 02/09/2020 CHIEF COMPLAINT: Shortness of breath, hyperkalemia, uncontrolled hypertension, oral pain. HISTORY OF PRESENT ILLNESS: The patient is a 69-year-old female. She is known to me from prior admission here at [facility]. She presents with complaints of missed dialysis x2. She has had severe oral pain related to a dental infection as well as pain in the pelvic region. She had a cyst that was drained in the emergency room. She was noted to be markedly hypertensive and hyperkalemic. She is now admitted for urgent dialysis and for blood pressure control. PAST MEDICAL HISTORY: Significant for history of end-stage renal disease on chronic hemodialysis, history of HIV, hepatitis C, anemia of chronic disease, paroxysmal atrial fibrillation, hypertension, depression, chronic pain, and diastolic congestive heart failure. CURRENT MEDICATIONS: Reconciled and reviewed. ALLERGIES: Include iodine and aspirin. FAMILY HISTORY: Noncontributory. SOCIAL HISTORY: The patient has a history of substance abuse. REVIEW OF SYSTEMS: GENERAL: No fevers or chills. HEENT: No headaches or visual changes. CARDIOPULMONARY: Positive shortness of breath. No cough. GASTROINTESTINAL: No nausea or vomiting. No melena. GENITOURINARY: No urgency or frequency. Positive pelvic pain. MUSCULOSKELETAL: No joint pain or swelling. NEUROLOGIC: No history of seizures. PHYSICAL EXAMINATION: VITAL SIGNS: Initial blood pressure was 201/104, pulse 77, respirations 16, temperature 98.3. GENERAL: The patient is a well-developed female, in a moderate amount of distress due to pain. HEENT: Head is normocephalic. Pupils are equal, round, and reactive to light. Sclerae are anicteric. Oropharynx is clear. The patient has very poor dentition noted with multiple fractured teeth. She is noted to have redness and swelling of the gums. NECK: Supple. No adenopathy or JVD. HEART: Regular rate and rhythm. No murmurs, rubs, or gallops. LUNGS: Clear to auscultation bilaterally. ABDOMEN: Soft, nontender, nondistended. EXTREMITIES: Without clubbing, cyanosis, or edema. PERTINENT DATA: White count 5, hemoglobin 7.8, hematocrit 24, platelets of 134,000. Sodium 134, potassium 7.4, BUN 81, creatinine was 17. Natriuretic peptide level was 32,000. Troponin was negative. TSH was 4.6. UA showed 5 to 10 wbc's. Tox screen was positive again for cocaine. ASSESSMENT: This is a 69-year-old female with a history of end-stage renal disease, hypertension, HIV, hepatitis C, and hypertensive heart disease, admitted with hypertensive urgency disease, congestive heart failure, hyperkalemia secondary to noncompliance with hemodialysis. She also appears to have a dental gum infection and an infected Bartholin cyst that has been I and D'ed. PLAN: 1. Cardiology and Renal consultations. 2. Hemodialysis per Renal. 3. Empiric antibiotic therapy for oral infection and IV pain medications as needed. 4. Titrate antihypertensive regimen. 5. DVT and stress ulcer prophylaxes. 6. Check an iron panel. 7. Epogen for anemia. 8. The patient may need a transfusion. Michael Peralta M.D. DR: XIANG JOB#: [id number] CC:
[2020-02-10] MEDS ORDERED: Sodium Polystyrene Sulfonate 15gm Powder ORAL SCH (10:00)
--- NOTE | 2020-02-10 10:23 | Nephrology Progress Note ---
Assessment/Plan Problem List: (1) ESRD (end stage renal disease) on dialysis (2) Hyperkalemia (3) Bartholin's gland abscess (4) Anemia (5) HCV antibody positive (6) HIV disease (7) Substance abuse Assessment Patient presents with hyperkalemia, anemia and 1 week of no dialysis Previous frequent chest pains. Anemia and evidence of upper GI bleed and [employer] in the past. Patient was on anticoagulation for atrial fibrillation however it is unclear how compliant the patient is. History of frequent hyperkalemia due to missing hemodialysis. End-stage renal disease on hemodialysis. The patient has a right chest permacath which is not dressed and appears to either be infected or very prone to infection. HIV disease. Substance abuse with previous urine test positive for narcotics and cocaine. History of hepatitis C virus. History of hypertensive kidney disease. Plan Patient dialyzed last night for potassium of 7.4. Will give Kayexalate for potassium of 5.4 today. Hemodialysis again tomorrow. Adjust blood pressure medication. Folate supplement. Due for transfusion. Per orders. Subjective ROS Limited/Unobtainable: No Constitutional: Reports: malaise Objective Objective Last 24 Hour Vital Signs Date Time Temp Pulse Resp B/P (MAP) Pulse Ox O2 Delivery O2 Flow Rate FiO2 02/10/20 10:14 97 142/75 02/10/20 08:00 100.0 97 18 142/75 (97) 100 02/10/20 05:37 152/81 02/10/20 04:00 98.3 84 18 152/74 (100) 95 02/10/20 04:00 83 02/10/20 00:23 147/84 02/10/20 00:22 78 147/84 02/10/20 00:00 98.1 81 19 147/84 (105) 94 02/10/20 00:00 87 02/09/20 20:00 85 02/09/20 20:00 Room Air 02/09/20 20:00 98.2 82 19 145/89 (107) 98 02/09/20 17:40 98.2 88 16 206/102 97 Room Air 02/09/20 16:30 98.0 74 16 204/99 98 Room Air 02/09/20 14:40 98.3 77 16 201/104 99 Room Air 02/09/20 14:15 98.4 94 16 199/103 (135) 100 Room Air Intake and Output 02/09/20 02/10/20 19:00 07:00 Output Total 2090 ml Balance -2090 ml Output Hemodialysis UF 2000 ml Estimated Blood Loss 90 ml # Voids 1 # Bowel Movements 2 Current Medications Medications (Trade) Dose Ordered Sig/Rochelle Route PRN Reason Start Time Stop Time Status Last Admin Dose Admin Acetaminophen/ Hydrocodone Bitart (Ramona 7.5/325) 1 tab Q6H PRN ORAL severe pain 02/09/20 23:30 02/16/20 23:29 02/10/20 08:19 Alprazolam (Xanax) 0.5 mg Q6H PRN ORAL For Anxiety 02/09/20 23:15 02/16/20 23:14 02/10/20 10:13 Amlodipine Besylate (Norvasc) 10 mg DAILY ORAL 02/10/20 09:00 03/11/20 08:59 02/10/20 10:14 Cefazolin Sodium 1 gm/Dextrose 55 ml @ 110 mls/hr Q48H IVPB 02/11/20 17:00 02/18/20 16:59 Clonidine HCl (Catapres Tab) 0.1 mg Q4H PRN ORAL For BP above 165 systolic 02/09/20 16:15 05/09/20 16:14 Diphenhydramine HCl (Benadryl) 25 mg Q6H PRN IVP Itching 02/10/20 02:45 03/11/20 02:44 02/10/20 03:05 Docusate Sodium (Colace) 100 mg TID ORAL 02/09/20 18:00 03/10/20 17:59 02/10/20 08:18 Folic Acid (Folate) 2 mg DAILY ORAL 02/10/20 10:00 03/11/20 09:59 02/10/20 10:13 Hydralazine HCl (Apresoline) 25 mg Q6HR ORAL 02/09/20 18:00 05/09/20 17:59 02/10/20 05:37 Ondansetron HCl (Zofran) 4 mg Q6H PRN IV Nausea & Vomiting 02/09/20 16:15 03/10/20 16:14 02/10/20 10:14 Pantoprazole (Protonix) 40 mg BID ORAL 02/09/20 18:00 03/10/20 17:59 02/10/20 08:17 Sevelamer Carbonate (Renvela) 2,400 mg THREE TIMES A DAY ORAL 02/09/20 18:00 05/09/20 17:59 02/10/20 08:19 Sodium Polystyrene Sulfonate (Kayexalate) 45 gm ONCE ORAL 02/10/20 10:00 02/10/20 11:00 02/10/20 10:15 Laboratory Tests 02/09/20 15:40: Urine Color Pale yellow, Urine Appearance Slightly cloudy, Urine pH 8, Urine Specific [place] 1.010, Urine Protein 4+H, Urine Glucose (UA) Negative, Urine Ketones Negative, Urine Blood 3+H, Urine Nitrite Negative, Urine Bilirubin Negative, Urine Urobilinogen Normal, Urine Leukocyte Esterase 1+H, Urine RBC 20- 30H, Urine WBC 5-10H, Urine Squamous Epithelial Cells ModerateH, Urine Bacteria Few, Urine Opiates Screen Negative, Urine Barbiturates Screen Negative, Phencyclidine (PCP) Screen Negative, Urine Amphetamines Screen Negative, Urine Benzodiazepines Screen Negative, Urine Cocaine Screen PositiveH, Urine Marijuana (THC) Screen Negative 02/09/20 15:50: White Blood Count 5.4, Red Blood Count 2.55L, Hemoglobin 7.8L, Hematocrit 24.2L , Mean Corpuscular Volume 95, Mean Corpuscular Hemoglobin 30.6, Mean Corpuscular Hemoglobin Concent 32.2, Red Cell Distribution Width 14.8, Platelet Count 134L, Mean Platelet Volume 5.4L, Neutrophils (%) (Auto) 78.2H, Lymphocytes (%) (Auto) 17.0L, Monocytes (%) (Auto) 8.5, Eosinophils (%) (Auto) 3.4H, Basophils (%) (Auto) 1.0, Differential Total Cells Counted 100, Neutrophils % (Manual) 75, Lymphocytes % (Manual) 20, Monocytes % (Manual) 5, Eosinophils % (Manual) 0, Basophils % (Manual) 0, Band Neutrophils 0, Platelet Estimate DecreasedL, Platelet Morphology Normal, Hypochromasia 1+, Anisocytosis 1+, Prothrombin Time 11.7H, Prothromb Time International Ratio 1.1, Activated Partial Thromboplast Time 31, Sodium Level 134L, Potassium Level 7.4*H, Chloride Level 98, Carbon Dioxide Level 19L, Anion Gap 17H, Blood Urea Nitrogen 81H, Creatinine 17.5H, Estimat Glomerular Filtration Rate 2.4, Glucose Level 68L , Calcium Level 8.3L, Phosphorus Level 6.8H, Magnesium Level 2.8H, Total Bilirubin 0.3, Aspartate Amino Transf (AST/SGOT) 22, Alanine Aminotransferase ( ALT/SGPT) 19, Alkaline Phosphatase 74, Total Creatine Kinase 196, Creatine Kinase MB 3.3, Creatine Kinase MB Relative Index 1.6, Troponin I 0.007, Total Protein 9.4H, Albumin 3.8, Globulin 5.6, Albumin/Globulin Ratio 0.7L, Hepatitis B Surface Antigen Negative 02/09/20 17:01: POC Whole Blood Glucose [Pending] 02/09/20 21:13: POC Whole Blood Glucose 103 02/10/20 05:59: White Blood Count 5.4, Red Blood Count 2.20L, Hemoglobin 6.8*L, Hematocrit 21.0L , Mean Corpuscular Volume 95, Mean Corpuscular Hemoglobin 30.8, Mean Corpuscular Hemoglobin Concent 32.3, Red Cell Distribution Width 13.8, Platelet Count 120L, Mean Platelet Volume 7.1, Neutrophils (%) (Auto) , Lymphocytes (%) ( Auto) , Monocytes (%) (Auto) , Eosinophils (%) (Auto) , Basophils (%) (Auto) , Neutrophils % (Manual) [Pending], Lymphocytes % (Manual) [Pending], Platelet Estimate [Pending], Platelet Morphology [Pending], Sodium Level 135L, Potassium Level 5.4H, Chloride Level 96L, Carbon Dioxide Level 26, Anion Gap 13, Blood Urea Nitrogen 45H, Creatinine 11.4H, Estimat Glomerular Filtration Rate 4.0, Glucose Level 78, Hemoglobin A1c 4.7, Uric Acid 5.0, Calcium Level 7.7L, Phosphorus Level 5.6H, Magnesium Level 2.3, Iron Level 40L, Total Iron Binding Capacity 172L, Percent Iron Saturation 23, Unsaturated Iron Binding 132, Ferritin 944H, Total Bilirubin 0.2, Gamma Glutamyl Transpeptidase 110H, Aspartate Amino Transf (AST/SGOT) 13L, Alanine Aminotransferase (ALT/SGPT) 11L, Alkaline Phosphatase 60, C-Reactive Protein, Quantitative < 0.4, Pro-B-Type Natriuretic Peptide 36609O, Total Protein 8.5H, Albumin 3.2L, Globulin 5.3, Albumin/Globulin Ratio 0.6L, Triglycerides Level 71, Cholesterol Level 121, LDL Cholesterol 48, HDL Cholesterol 52, Cholesterol/HDL Ratio 2.3L, Vitamin B12 Level 411, Folate 5.7L, Thyroid Stimulating Hormone (TSH) 4.601H Height (Feet): 5 Height (Inches): 8.00 Weight (Pounds): 154 General Appearance: no apparent distress Cardiovascular: tachycardia Respiratory/Chest: decreased breath sounds Abdomen: distended Jack Pryor MD Feb 10, 2020 10:23
[2020-02-10] MEDS: HydrALAZINE 50mg tab ORAL SCH ×2 (13:30→22:51)
--- NOTE | 2020-02-10 13:50 | Consultation ---
History of Present Illness General Date patient seen: Feb 10, 2020 Reason for Hospitalization: Pain Present Illness HPI This is a very pleasant 69-year-old female with multi-medical comorbidities including end-stage renal disease on hemodialysis who has a history of missing prior dialysis sessions that presented to [facility] complaining of a cyst in her pelvic region that is causing pain for the past few days causing her to miss her dialysis today and come to the emergency department. Surgery was called to evaluate and assist with care. Patient seen, patient [place], chart reviewed. Initially called emergency department at which time discussed with emergency department physician and plan for I&D of what was believed to be a Bartholin cyst with placement of a drainage catheter. Plan for surgery to monitor and care for catheter at this time. Labs noted. Hemodialysis planned. Patient has a right chest tunneled catheter. No nausea vomiting fever chills Allergies: Coded Allergies: ASPIRIN (Unverified Allergy, Unknown, 01/16/20) IODINE (Verified Allergy, Unknown, 01/07/20) Uncoded Allergies: CONTRAST DYE (Allergy, Unknown, 01/07/20) COVID-19 Screening Contact w/high risk pt: Yes Recent Travel to affected area: No Experienced COVID-19 symptoms?: No COVID-19 symptoms experienced: Cough, Flu-Like Symptoms Medication History Scheduled Amlodipine Besylate* (Amlodipine Besylate*), 10 MG ORAL DAILY, (Reported) Darunavir/Cobicistat (Prezcobix 800 mg-150 mg Tablet), 1 EACH PO DAILY, ( Reported) Dolutegravir Sodium (Tivicay), 50 MG ORAL DAILY, (Reported) Escitalopram Oxalate* (Lexapro*), 20 MG ORAL DAILY, (Reported) Hydrocodone/Acetaminophen 7.5-325* (Hydrocodon-Acetaminoph 7.5-325*), 1 TAB ORAL Q6H, (Reported) Lidocaine Patch* (Lidoderm Patch*), 1 PATCH TOPIC DAILY Methocarbamol* (Robaxin-750*), 750 MG PO QID Sevelamer Carbonate* (Renvela*), 2,400 MG ORAL THREE TIMES A DAY, (Reported) Scheduled PRN Acetaminophen* (Tylenol Extra Strength*), 500 MG ORAL Q8H PRN for Prn Headache/ Temp > 101 Alprazolam (Alprazolam), 1 MG ORAL TID PRN for For Anxiety, (Reported) Miscellaneous Medications Unable to Obtain Medications (Unable To Obtain Meds), (Reported) Patient History History Provided By: Patient, Medical Record, PMD Healthcare decision maker N Resuscitation status Advanced Directive on File Past Medical/Surgical History Past Medical/Surgical History: (1) Epileptic seizure, generalized (2) Weakness (3) Anemia (4) Bartholin's gland abscess (5) Hypoglycemia (6) Vulval cellulitis (7) Missed dialysis (8) ESRD (end stage renal disease) on dialysis (9) Hyperkalemia (10) Substance abuse (11) HIV disease (12) HCV antibody positive Review of Systems Review of Symptoms General ROS: no weight loss or fever Psychological ROS: no depression or mood changes, no memory loss Ophthalmic ROS: no visual changes or eye irritation ENT ROS: no nasal congestion, hearing loss, dizziness Allergy and Immunology ROS: no allergic symptoms or urticaria Hematological and Lymphatic ROS: no swollen glands, unusual bleeding or bruising Endocrine ROS: no polyuria, polydipsia, weight changes, temperature intolerance Respiratory ROS: no cough, shortness of breath, or wheezing Cardiovascular ROS: no chest pain or dyspnea on exertion Gastrointestinal ROS: denies abdominal pain, bright red blood in stool. Musculoskeletal ROS: no myalgias or arthralgias Neurological ROS: no TIA or stroke symptoms Dermatological ROS: no new or changing skin lesions, rashes or pruritis Physical Exam Physical Exam General appearance: alert, cooperative, no distress, appears stated age Head: Normocephalic, without obvious abnormality, atraumatic Eyes: conjunctivae/corneas clear. PERRL, EOM's intact. Fundi benign Throat: Lips, mucosa, and tongue normal. Teeth and gums normal Neck: supple, symmetrical, trachea midline, no adenopathy, thyroid: not enlarged, symmetric, no tenderness/mass/nodules, no carotid bruit and no JVD Lungs: clear to auscultation bilaterally right chest wall catheter noted Heart: regular rate and rhythm, S1, S2 normal, no murmur, click, rub or gallop Abdomen: soft, non-tender. Bowel sounds normal. No masses, no organomegaly Extremities: extremities normal, atraumatic, no cyanosis or edema Pulses: 2+ and symmetric Skin: Skin color, texture, turgor normal. No rashes or lesions Bartholin cyst left with drainage catheter in place Neurologic: Grossly normal Last 24 Hour Vital Signs Date Time Temp Pulse Resp B/P (MAP) Pulse Ox O2 Delivery O2 Flow Rate FiO2 02/10/20 13:30 138/67 02/10/20 12:00 99.7 90 18 138/67 (90) 100 02/10/20 11:53 99.7 02/10/20 10:14 97 142/75 02/10/20 09:00 Room Air 02/10/20 08:00 100.0 97 18 142/75 (97) 100 02/10/20 05:37 152/81 02/10/20 04:00 98.3 84 18 152/74 (100) 95 02/10/20 04:00 83 02/10/20 00:23 147/84 02/10/20 00:22 78 147/84 02/10/20 00:00 98.1 81 19 147/84 (105) 94 02/10/20 00:00 87 02/09/20 20:00 85 02/09/20 20:00 Room Air 02/09/20 20:00 98.2 82 19 145/89 (107) 98 02/09/20 17:40 98.2 88 16 206/102 97 Room Air 02/09/20 16:30 98.0 74 16 204/99 98 Room Air 02/09/20 14:40 98.3 77 16 201/104 99 Room Air 02/09/20 14:15 98.4 94 16 199/103 (135) 100 Room Air Intake and Output 02/09/20 02/10/20 19:00 07:00 Output Total 2090 ml Balance -2090 ml Output Hemodialysis UF 2000 ml Estimated Blood Loss 90 ml # Voids 1 # Bowel Movements 2 Laboratory Tests Test 02/09/20 15:40 02/09/20 15:50 02/09/20 17:01 02/09/20 21:13 Urine Color Pale yellow Urine Appearance Slightly cloudy Urine pH 8 (4.5-8.0) Urine Specific [place] 1.010 (1.005-1.035) Urine Protein 4+ (NEGATIVE) H Urine Glucose (UA) Negative (NEGATIVE) Urine Ketones Negative (NEGATIVE) Urine Blood 3+ (NEGATIVE) H Urine Nitrite Negative (NEGATIVE) Urine Bilirubin Negative (NEGATIVE) Urine Urobilinogen Normal MG/DL (0.0-1.0) Urine Leukocyte Esterase 1+ (NEGATIVE) H Urine RBC 20-30 /HPF (0 - 2) H Urine WBC 5-10 /HPF (0 - 2) H Urine Squamous Epithelial Cells Moderate /LPF (NONE/OCC) H Urine Bacteria Few /HPF (NONE) Urine Opiates Screen Negative (NEGATIVE) Urine Barbiturates Screen Negative (NEGATIVE) Phencyclidine (PCP) Screen Negative (NEGATIVE) Urine Amphetamines Screen Negative (NEGATIVE) Urine Benzodiazepines Screen Negative (NEGATIVE) Urine Cocaine Screen Positive (NEGATIVE) H Urine Marijuana (THC) Screen Negative (NEGATIVE) White Blood Count 5.4 K/UL (4.8-10.8) Red Blood Count 2.55 M/UL (4.20-5.40) L Hemoglobin 7.8 G/DL (12.0-16.0) L Hematocrit 24.2 % (37.0-47.0) L Mean Corpuscular Volume 95 FL (80-99) Mean Corpuscular Hemoglobin 30.6 PG (27.0-31.0) Mean Corpuscular Hemoglobin Concent 32.2 G/DL (32.0-36.0) Red Cell Distribution Width 14.8 % (11.6-14.8) Platelet Count 134 K/UL (150-450) L Mean Platelet Volume 5.4 FL (6.5-10.1) L Neutrophils (%) (Auto) 78.2 % (45.0-75.0) H Lymphocytes (%) (Auto) 17.0 % (20.0-45.0) L Monocytes (%) (Auto) 8.5 % (1.0-10.0) Eosinophils (%) (Auto) 3.4 % (0.0-3.0) H Basophils (%) (Auto) 1.0 % (0.0-2.0) Differential Total Cells Counted 100 Neutrophils % (Manual) 75 % (45-75) Lymphocytes % (Manual) 20 % (20-45) Monocytes % (Manual) 5 % (1-10) Eosinophils % (Manual) 0 % (0-3) Basophils % (Manual) 0 % (0-2) Band Neutrophils 0 % (0-8) Platelet Estimate Decreased L Platelet Morphology Normal Hypochromasia 1+ Anisocytosis 1+ Prothrombin Time 11.7 SEC (9.30-11.50) H Prothromb Time International Ratio 1.1 (0.9-1.1) Activated Partial Thromboplast Time 31 SEC (23-33) Sodium Level 134 MMOL/L (136-145) L Potassium Level 7.4 MMOL/L (3.5-5.1) *H Chloride Level 98 MMOL/L (98-107) Carbon Dioxide Level 19 MMOL/L (21-32) L Anion Gap 17 mmol/L (5-15) H Blood Urea Nitrogen 81 mg/dL (7-18) H Creatinine 17.5 MG/DL (0.55-1.30) H Estimat Glomerular Filtration Rate 2.4 mL/min (>60) Glucose Level 68 MG/DL (74-106) L Calcium Level 8.3 MG/DL (8.5-10.1) L Phosphorus Level 6.8 MG/DL (2.5-4.9) H Magnesium Level 2.8 MG/DL (1.8-2.4) H Total Bilirubin 0.3 MG/DL (0.2-1.0) Aspartate Amino Transf (AST/SGOT) 22 U/L (15-37) Alanine Aminotransferase (ALT/SGPT) 19 U/L (12-78) Alkaline Phosphatase 74 U/L (46-116) Total Creatine Kinase 196 U/L (26-308) Creatine Kinase MB 3.3 NG/ML (0.0-3.6) Creatine Kinase MB Relative Index 1.6 Troponin I 0.007 ng/mL (0.000-0.056) Total Protein 9.4 G/DL (6.4-8.2) H Albumin 3.8 G/DL (3.4-5.0) Globulin 5.6 g/dL Albumin/Globulin Ratio 0.7 (1.0-2.7) L Hepatitis B Surface Antigen Negative (NEGATIVE) POC Whole Blood Glucose Pending 103 MG/DL (74-106) Test 02/10/20 05:59 White Blood Count 5.4 K/UL (4.8-10.8) Red Blood Count 2.20 M/UL (4.20-5.40) L Hemoglobin 6.8 G/DL (12.0-16.0) *L Hematocrit 21.0 % (37.0-47.0) L Mean Corpuscular Volume 95 FL (80-99) Mean Corpuscular Hemoglobin 30.8 PG (27.0-31.0) Mean Corpuscular Hemoglobin Concent 32.3 G/DL (32.0-36.0) Red Cell Distribution Width 13.8 % (11.6-14.8) Platelet Count 120 K/UL (150-450) L Mean Platelet Volume 7.1 FL (6.5-10.1) Neutrophils (%) (Auto) % (45.0-75.0) Lymphocytes (%) (Auto) % (20.0-45.0) Monocytes (%) (Auto) % (1.0-10.0) Eosinophils (%) (Auto) % (0.0-3.0) Basophils (%) (Auto) % (0.0-2.0) Differential Total Cells Counted 100 Neutrophils % (Manual) 68 % (45-75) Lymphocytes % (Manual) 21 % (20-45) Monocytes % (Manual) 8 % (1-10) Eosinophils % (Manual) 3 % (0-3) Basophils % (Manual) 0 % (0-2) Band Neutrophils 0 % (0-8) Platelet Estimate Decreased L Platelet Morphology Normal Hypochromasia 4+ Anisocytosis 1+ Sodium Level 135 MMOL/L (136-145) L Potassium Level 5.4 MMOL/L (3.5-5.1) H Chloride Level 96 MMOL/L (98-107) L Carbon Dioxide Level 26 MMOL/L (21-32) Anion Gap 13 mmol/L (5-15) Blood Urea Nitrogen 45 mg/dL (7-18) H Creatinine 11.4 MG/DL (0.55-1.30) H Estimat Glomerular Filtration Rate 4.0 mL/min (>60) Glucose Level 78 MG/DL (74-106) Hemoglobin A1c 4.7 % (4.3-6.0) Uric Acid 5.0 MG/DL (2.6-7.2) Calcium Level 7.7 MG/DL (8.5-10.1) L Phosphorus Level 5.6 MG/DL (2.5-4.9) H Magnesium Level 2.3 MG/DL (1.8-2.4) Iron Level 40 ug/dL (50-175) L Total Iron Binding Capacity 172 ug/dL (250-450) L Percent Iron Saturation 23 % (15-50) Unsaturated Iron Binding 132 ug/dL (112-346) Ferritin 944 NG/ML (8-388) H Total Bilirubin 0.2 MG/DL (0.2-1.0) Gamma Glutamyl Transpeptidase 110 U/L (5-85) H Aspartate Amino Transf (AST/SGOT) 13 U/L (15-37) L Alanine Aminotransferase (ALT/SGPT) 11 U/L (12-78) L Alkaline Phosphatase 60 U/L (46-116) C-Reactive Protein, Quantitative < 0.4 mg/dL (0.00-0.90) Pro-B-Type Natriuretic Peptide 65310 pg/mL (0-125) H Total Protein 8.5 G/DL (6.4-8.2) H Albumin 3.2 G/DL (3.4-5.0) L Globulin 5.3 g/dL Albumin/Globulin Ratio 0.6 (1.0-2.7) L Triglycerides Level 71 MG/DL (30-150) Cholesterol Level 121 MG/DL (< 200) LDL Cholesterol 48 mg/dL (<100) HDL Cholesterol 52 MG/DL (40-60) Cholesterol/HDL Ratio 2.3 (3.3-4.4) L Vitamin B12 Level 411 PG/ML (193-986) Folate 5.7 NG/ML (8.6-58.9) L Thyroid Stimulating Hormone (TSH) 4.601 uiU/mL (0.358-3.740) Microbiology Date/Time Source Procedure Growth Status 02/09/20 17:00 Vaginal Gram Stain - Final Resulted 02/09/20 17:00 Vaginal Wound Culture Pending Resulted 02/10/20 05:30 Stool Clostridium difficile Toxin Assay - Final Complete Height (Feet): 5 Height (Inches): 8.00 Weight (Pounds): 154 Medications Current Medications Medications (Trade) Dose Ordered Sig/Rochelle Route PRN Reason Start Time Stop Time Status Last Admin Dose Admin Acetaminophen (Tylenol) 650 mg Q4H PRN ORAL Mild Pain (Pain Scale 1-3) 02/10/20 11:00 03/11/20 10:59 02/10/20 11:23 Acetaminophen/ Hydrocodone Bitart ([place] 7.5/325) 1 tab Q6H PRN ORAL severe pain 02/09/20 23:30 02/16/20 23:29 02/10/20 08:19 Alprazolam (Xanax) 0.5 mg Q6H PRN ORAL For Anxiety 02/09/20 23:15 02/16/20 23:14 02/10/20 10:13 Amlodipine Besylate (Norvasc) 10 mg DAILY ORAL 02/10/20 09:00 03/11/20 08:59 02/10/20 10:14 Cefazolin Sodium 1 gm/Dextrose 55 ml @ 110 mls/hr Q48H IVPB 02/11/20 17:00 02/18/20 16:59 Clonidine HCl (Catapres Tab) 0.1 mg Q4H PRN ORAL For BP above 165 systolic 02/09/20 16:15 05/09/20 16:14 Diphenhydramine HCl (Benadryl) 25 mg Q6H PRN IVP Itching 02/10/20 02:45 03/11/20 02:44 02/10/20 11:23 Docusate Sodium (Colace) 100 mg TID ORAL 02/09/20 18:00 03/10/20 17:59 02/10/20 13:30 Folic Acid (Folate) 2 mg DAILY ORAL 02/10/20 10:00 03/11/20 09:59 02/10/20 10:13 Hydralazine HCl (Apresoline) 50 mg Q8HR ORAL 02/10/20 14:00 05/09/20 17:59 02/10/20 13:30 Ondansetron HCl (Zofran) 4 mg Q6H PRN IV Nausea & Vomiting 02/09/20 16:15 03/10/20 16:14 02/10/20 10:14 Pantoprazole (Protonix) 40 mg BID ORAL 02/09/20 18:00 03/10/20 17:59 02/10/20 08:17 Sevelamer Carbonate (Renvela) 2,400 mg THREE TIMES A DAY ORAL 02/09/20 18:00 05/09/20 17:59 02/10/20 13:31 Assessment/Plan Problem List: (1) Anemia ICD Codes: D64.9 - Anemia, unspecified SNOMED: 490049281 (2) Bartholin's gland abscess Assessment & Plan: 69-year-old female Bartholin gland abscess cyst. Status post incision and drainage with drain placement. Drain currently in place and still draining. States that it feels better but continues to hurt. Plan for hemodialysis initiated by [employer]. Patient has a catheter in place unlikely infected. We will continue to monitor for local abscess drainage and improvement. Will monitor drain and manage drain accordingly. Okay for warm compress as needed. Pain management Rx written. Trend labs. Antibiotics per ID. May need repeat drainage if does not improve significantly. Thank you for letting participate in patient's care will follow recommendations ICD Codes: N75.1 - Abscess of Bartholin's gland SNOMED: 49155406 (3) Hypoglycemia ICD Codes: E16.2 - Hypoglycemia, unspecified SNOMED: 656611648 (4) Vulval cellulitis ICD Codes: N76.2 - Acute vulvitis SNOMED: 691529953 (5) Missed dialysis SNOMED: 873667524 (6) ESRD (end stage renal disease) on dialysis ICD Codes: N18.6 - End stage renal disease; Z99.2 - Dependence on renal dialysis SNOMED: 710575761 (7) Hyperkalemia ICD Codes: E87.5 - Hyperkalemia SNOMED: 38830210 (8) Substance abuse ICD Codes: F19.10 - Other psychoactive substance abuse, uncomplicated SNOMED: 16219168 (9) HIV disease ICD Codes: B20 - Human immunodeficiency virus [HIV] disease SNOMED: 85927568 (10) HCV antibody positive ICD Codes: R76.8 - Other specified abnormal immunological findings in serum SNOMED: 247068578 (11) Weakness ICD Codes: R53.1 - Weakness SNOMED: 27531981 (12) Epileptic seizure, generalized ICD Codes: G40.309 - Generalized idiopathic epilepsy and epileptic syndromes, not intractable, without status epilepticus SNOMED: 81912637 Deon Crowe Feb 10, 2020 13:50
--- NOTE | 2020-02-10 14:08 | NUR ---
CASE MANAGEMENT:REVIEW 69 YR OLD FEMALE BIBA FROM HOME CC; VAGINAL PAIN. MISSED DIALYSIS SI: . HYPERKALEMIA.VULVA ABSCESS. ESRD 98.4 94 16 199/103 100% ON RA H/H-7.8/24.2 K+7.4 BUN+81 CR+17.5 URINE(+) COCAINE IS: NORCO PO X1 IV INSULIN X1 IV D50 X1 IV CA GLUCONATE IV ANCEF IV MORPHINE X1 KAYEXALATE PO CHEST XRAY BLOOD CX STAT HD : TO TELEMETRY UNIT INTERQUAL CRITERIA MET
--- NOTE | 2020-02-10 14:59 | NUR ---
NURSE NOTES: BT started with PRBC. Monitoring for any adverse reactions.
--- NOTE | 2020-02-10 18:40 | NUR ---
NURSE NOTES: BT ended, no adverse reactions noted.
--- NOTE | 2020-02-10 19:21 | NUR ---
HAND-OFF: Report given to Beatriz SAALZAR. Addendum: 02/10/20 at 1921 by Snow Zaragoza RN HAND-OFF: Report given to Saba SALAZAR / Cindi SALAZAR.
--- NOTE | 2020-02-10 19:26 | NUR ---
NURSE NOTES: Received report from MARTIN Adamson. Patient is awake alert and oriented x4. No SOB or respiratory distress. campus monitor is intact and functioning. Bed is at lowest level, locked and siderails up. Patient is on fall precautions. Instructed on use of call light. Has non skid socks. Will continue plan of care.
[2020-02-11] VITALS: BP 158/85
--- NOTE | 2020-02-11 00:15 | Progress Note ---
DATE: 02/10/2020 CARDIOLOGY PROGRESS NOTE SUBJECTIVE: The patient's potassium level remains elevated despite dialysis last night. She has no new complaints other than pain in her vaginal region at the site of her drained Bartholin cyst. She states that she did not go to dialysis because of her pain over the past week. She is unwilling to discuss her positive cocaine screen although in the past we have spoken about it during previous hospitalizations and I have counseled her extensively regarding the risks of sudden cardiac . PHYSICAL EXAMINATION: VITAL SIGNS: Temperature 100, blood pressure 142/75, heart rate 97, respiratory rate 18. LUNGS: Clear. CARDIAC: Regular. Normal S1, S2 with a 1/6 systolic murmur at the base. ABDOMEN: Soft, nontender. EXTREMITIES: Without edema. GENITOURINARY: Perineum not evaluated today. LABORATORY DATA: White count 5.4, hemoglobin 6.8. Sodium 135, potassium 5.4, bicarb 26, BUN 45, creatinine 11.4. Pro natriuretic peptide 32,000. TSH 4.6. Folate 5.7. IMPRESSION: 1. Hyperkalemia. 2. End-stage renal disease with missed dialysis sessions. 3. Painful Bartholin cyst, status post drainage. 4. Acute on chronic diastolic congestive heart failure. 5. Cocaine intoxication and abuse. 6. Folic acid deficiency. 7. Acute on chronic anemia. 8. Anemia of chronic kidney disease. PLAN: 1. Antibiotics. 2. Surgical follow up. 3. Kayexalate. 4. Transfusion of packed red blood cell. 5. Folic acid supplementation. 6. Titrate antihypertensive and anti-failure drugs. 7. Counseling regarding cocaine abuse. Nam Barnett M.D. DR: MELVIN JOB#: [id number] CC:
[2020-02-11 04:00] VITALS: BP 151/84
[2020-02-11] MEDS: HydrALAZINE 50mg tab ORAL SCH ×3 (05:16→21:22)
[2020-02-11] MEDS: HYDROcodone/Acetamin 7.5/325 tab ORAL PRN ×3 (05:17→21:22)
--- NOTE | 2020-02-11 07:08 | NUR ---
HAND-OFF: Report given to Kortney SALAZAR. Endorsed plan of care.
--- NOTE | 2020-02-11 07:40 | NUR ---
NURSE NOTES: Received report from MARTIN Walter. Patient asleep but arousable to name. Denies pain. No signs of distress. Radial pulses palpable. L upper arm 20 g flushed and patent. Breathing regular and unlabored.Bed low and locked, call light in reach, side rails raised x2.
[2020-02-11 08:00] VITALS: BP 155/71
--- NOTE | 2020-02-11 08:52 | Surgery Progress Note ---
Surgery Progress Note Subjective Additional Comments no acute events resting comfortable anemia transfuse prbc with HD drain okay Objective Last 24 Hour Vital Signs Date Time Temp Pulse Resp B/P (MAP) Pulse Ox O2 Delivery O2 Flow Rate FiO2 02/11/20 05:16 154/72 02/11/20 04:00 96.6 74 18 151/84 (106) 99 02/11/20 04:00 74 02/11/20 00:00 71 02/11/20 00:00 97.9 72 18 158/85 (109) 96 02/10/20 22:51 140/89 02/10/20 21:00 Room Air 02/10/20 20:00 90 02/10/20 20:00 99.5 86 18 140/89 (106) 94 02/10/20 16:00 97.7 76 18 128/64 (85) 99 02/10/20 16:00 79 02/10/20 13:30 138/67 02/10/20 12:00 99.7 90 18 138/67 (90) 100 02/10/20 12:00 81 02/10/20 11:53 99.7 02/10/20 10:14 97 142/75 02/10/20 09:00 Room Air I&O Intake and Output 02/10/20 02/11/20 19:00 07:00 Intake Total 360 ml Balance 360 ml Intake Oral 360 ml # Voids 2 # Bowel Movements 1 Dressing: saturated Cardiovascular: RSR Respiratory: clear Abdomen: soft, flat, non-tender, present bowel sounds Extremities: no edema, no tenderness, no cyanosis Plan Problems: (1) Anemia (2) Bartholin's gland abscess Assessment & Plan: 69-year-old female Bartholin gland abscess cyst. Status post incision and drainage with drain placement. Drain currently in place and still draining. States that it feels better but continues to hurt. Plan for hemodialysis initiated by collection correspondent. Patient has a catheter in place unlikely infected. We will continue to monitor for local abscess drainage and improvement. Will monitor drain and manage drain accordingly. Okay for warm compress as needed. Pain management Rx written. Trend labs. Antibiotics per ID. May need repeat drainage if does not improve significantly. Thank you for letting participate in patient's care will follow recommendations anemia - transfuse prbc with HD (3) Hypoglycemia (4) Vulval cellulitis (5) Missed dialysis (6) ESRD (end stage renal disease) on dialysis (7) Hyperkalemia (8) Substance abuse (9) HIV disease (10) HCV antibody positive (11) Weakness (12) Epileptic seizure, generalized Deon Crowe Feb 11, 2020 08:52
[2020-02-11] MEDS: Renvela 2400 mg pkt ORAL SCH ×3 (09:01→18:14)
[2020-02-11] MEDS: Docusate 100mg cap ORAL SCH ×3 (09:01→18:14)
[2020-02-11] MEDS: ALPRAZolam 0.5mg tab ORAL PRN (09:18)
--- NOTE | 2020-02-11 11:00 | NUR ---
CASE MANAGEMENT:REVIEW 02/11/20 SI: HYPERKALEMIA. ESRD MISSED HD PAINFUL BARTHOLIN CYST...S/P I&D W/DRAIN PLACEMENTDRAINAGE. CHF (+) COCAINE USE 98.6 76 20 155/71 98% ON RA IS: IV ANCEF Q48HRS HYDRALAZINE PO Q8HRS FOLATE PO QD PROTONIX PO QD NORCO PO Q6HRS PRN : TELEMETRY STATUS DCP: FROM HOME PLAN: SURGICAL F/U SCHEDULED FOR DIALYSIS TODAY MONITOR DRAIN MAY NEED REPEAT DRAINAGE
[2020-02-11 12:00] VITALS: BP 129/68
--- NOTE | 2020-02-11 12:04 | Nephrology Progress Note ---
Assessment/Plan Problem List: (1) ESRD (end stage renal disease) on dialysis (2) Hyperkalemia (3) Bartholin's gland abscess (4) Anemia (5) HCV antibody positive (6) HIV disease (7) Substance abuse Assessment Patient presents with hyperkalemia, anemia and 1 week of no dialysis Previous frequent chest pains. Anemia and evidence of upper GI bleed and [employer] in the past. Patient was on anticoagulation for atrial fibrillation however it is unclear how compliant the patient is. History of frequent hyperkalemia due to missing hemodialysis. End-stage renal disease on hemodialysis. The patient has a right chest permacath which is not dressed and appears to either be infected or very prone to infection. HIV disease. Substance abuse with previous urine test positive for narcotics and cocaine. History of hepatitis C virus. History of hypertensive kidney disease. Plan February 10: Patient due for dialysis today February 10. No labs drawn today. Will check renal parameters tomorrow. Continue per consultants. Patient anemic, transfusion is suggested. Patient dialyzed February 08, late night, for potassium of 7.4. Will give Kayexalate for high potassium as needed Adjust blood pressure medication. Folate supplement. Due for transfusion. Per orders. Subjective ROS Limited/Unobtainable: No Constitutional: Reports: malaise, weakness Objective Objective Last 24 Hour Vital Signs Date Time Temp Pulse Resp B/P (MAP) Pulse Ox O2 Delivery O2 Flow Rate FiO2 02/11/20 09:00 Room Air 02/11/20 09:00 77 155/71 02/11/20 08:00 76 02/11/20 08:00 98.6 76 20 155/71 (99) 98 02/11/20 05:16 154/72 02/11/20 04:00 96.6 74 18 151/84 (106) 99 02/11/20 04:00 74 02/11/20 00:00 71 02/11/20 00:00 97.9 72 18 158/85 (109) 96 02/10/20 22:51 140/89 02/10/20 21:00 Room Air 02/10/20 20:00 90 02/10/20 20:00 99.5 86 18 140/89 (106) 94 02/10/20 16:00 97.7 76 18 128/64 (85) 99 02/10/20 16:00 79 02/10/20 13:30 138/67 Intake and Output 02/10/20 02/11/20 19:00 07:00 Intake Total 360 ml Balance 360 ml Intake Oral 360 ml # Voids 2 # Bowel Movements 1 Current Medications Medications (Trade) Dose Ordered Sig/Rochelle Route PRN Reason Start Time Stop Time Status Last Admin Dose Admin Acetaminophen (Tylenol) 650 mg Q4H PRN ORAL Mild Pain (Pain Scale 1-3) 02/10/20 11:00 03/11/20 10:59 02/10/20 20:02 Acetaminophen/ Hydrocodone Bitart ([place] 7.5/325) 1 tab Q6H PRN ORAL severe pain 02/09/20 23:30 02/16/20 23:29 02/11/20 05:17 Alprazolam (Xanax) 0.5 mg Q6H PRN ORAL For Anxiety 02/09/20 23:15 02/16/20 23:14 02/11/20 09:18 Amlodipine Besylate (Norvasc) 10 mg DAILY ORAL 02/10/20 09:00 03/11/20 08:59 02/10/20 10:14 Cefazolin Sodium 1 gm/Dextrose 55 ml @ 110 mls/hr Q48H IVPB 02/11/20 17:00 02/18/20 16:59 Clonidine HCl (Catapres Tab) 0.1 mg Q4H PRN ORAL For BP above 165 systolic 02/09/20 16:15 05/09/20 16:14 Diphenhydramine HCl (Benadryl) 25 mg Q6H PRN IVP Itching 02/10/20 02:45 03/11/20 02:44 02/10/20 20:02 Docusate Sodium (Colace) 100 mg TID ORAL 02/09/20 18:00 03/10/20 17:59 02/11/20 09:01 Folic Acid (Folate) 2 mg DAILY ORAL 02/10/20 10:00 03/11/20 09:59 02/11/20 09:01 Hydralazine HCl (Apresoline) 50 mg Q8HR ORAL 02/10/20 14:00 05/09/20 17:59 02/11/20 05:16 Ondansetron HCl (Zofran) 4 mg Q6H PRN IV Nausea & Vomiting 02/09/20 16:15 03/10/20 16:14 02/10/20 10:14 Pantoprazole (Protonix) 40 mg BID ORAL 02/09/20 18:00 03/10/20 17:59 02/11/20 09:01 Sevelamer Carbonate (Renvela) 2,400 mg THREE TIMES A DAY ORAL 02/09/20 18:00 05/09/20 17:59 02/11/20 09:01 No blood work for today Height (Feet): 5 Height (Inches): 8.00 Weight (Pounds): 160 General Appearance: no apparent distress Cardiovascular: tachycardia Respiratory/Chest: decreased breath sounds Abdomen: distended Jack Pryor MD Feb 11, 2020 12:04
--- NOTE | 2020-02-11 12:45 | NUR ---
NURSE NOTES: Paged Dr. Peralta re: cultures. Awaiting call back.
[2020-02-11 16:00] VITALS: BP 161/84
--- NOTE | 2020-02-11 16:00 | NUR ---
NURSE NOTES: registered medical assistant at bedside.
--- NOTE | 2020-02-11 16:05 | General Progress Note ---
Assessment/Plan Problem List: (1) Epileptic seizure, generalized ICD Codes: G40.309 - Generalized idiopathic epilepsy and epileptic syndromes, not intractable, without status epilepticus SNOMED: 70900383 (2) Weakness ICD Codes: R53.1 - Weakness SNOMED: 64102692 (3) HIV disease ICD Codes: B20 - Human immunodeficiency virus [HIV] disease SNOMED: 87193130 (4) Substance abuse ICD Codes: F19.10 - Other psychoactive substance abuse, uncomplicated SNOMED: 47004096 (5) Bartholin's gland abscess ICD Codes: N75.1 - Abscess of Bartholin's gland SNOMED: 29034974 (6) Hypoglycemia ICD Codes: E16.2 - Hypoglycemia, unspecified SNOMED: 263663477 Subjective ROS Limited/Unobtainable: No Constitutional: Reports: malaise, weakness HEENT: Reports: no symptoms Cardiovascular: Reports: no symptoms Respiratory: Reports: shortness of breath Gastrointestinal/Abdominal: Reports: no symptoms Genitourinary: Reports: no symptoms Neurologic/Psychiatric: Reports: pre-existing deficit Endocrine: Reports: no symptoms Allergies: Coded Allergies: ASPIRIN (Unverified Allergy, Unknown, 01/16/20) IODINE (Verified Allergy, Unknown, 01/07/20) Uncoded Allergies: CONTRAST DYE (Allergy, Unknown, 01/07/20) All Systems: reviewed and negative except above Subjective Complains of oral pain. On IV antibiotics. Fevers or chills. Status post transfusion. No reports of bleeding. Decrease shortness of breath. Continues to complain of generalized pain. Objective Last 24 Hour Vital Signs Date Time Temp Pulse Resp B/P (MAP) Pulse Ox O2 Delivery O2 Flow Rate FiO2 02/11/20 12:51 129/68 02/11/20 12:00 80 02/11/20 12:00 97.9 80 20 129/68 (88) 98 02/11/20 09:00 Room Air 02/11/20 09:00 77 155/71 02/11/20 08:00 76 02/11/20 08:00 98.6 76 20 155/71 (99) 98 02/11/20 05:16 154/72 02/11/20 04:00 96.6 74 18 151/84 (106) 99 02/11/20 04:00 74 02/11/20 00:00 71 02/11/20 00:00 97.9 72 18 158/85 (109) 96 02/10/20 22:51 140/89 02/10/20 21:00 Room Air 02/10/20 20:00 90 02/10/20 20:00 99.5 86 18 140/89 (106) 94 Intake and Output 02/10/20 02/11/20 19:00 07:00 Intake Total 360 ml Balance 360 ml Intake Oral 360 ml # Voids 2 # Bowel Movements 1 Height (Feet): 5 Height (Inches): 8.00 Weight (Pounds): 160 General Appearance: WD/WN, lethargic EENT: PERRL/EOMI, normal ENT inspection Neck: non-tender, normal alignment Cardiovascular: normal peripheral pulses, normal rate, regular rhythm Respiratory/Chest: chest wall non-tender, lungs clear, normal breath sounds Abdomen: normal bowel sounds, non tender, soft, no organomegaly Extremities: normal range of motion Edema: no edema noted Arm (L), no edema noted Arm (R) Neurologic: terrazzo supervisor II-XII grossly normal, no motor/sensory deficits, abnormal gait , alert, oriented x 3, responsive Michael Peralta MD Feb 11, 2020 16:05
[2020-02-11] MEDS ORDERED: ceFAZolin sod 1 GM in D5W 55 ML IVPB SCH (17:00)
--- NOTE | 2020-02-11 17:21 | NUR ---
NURSE NOTES: Updated Dr. Peralta by phone regarding positive wound and blood culture, negative COVID result. MD segura pt. continues to c/o severe pain at vaginal wound despite [place]. Received TORB from Dr. Peralta for the following orders: vancomycin per pharmacy, zosyn 2.25 g Q8H, and dilaudid 1 mg IV Q4H PRN for severe pain. Orders acknowledged and carried out.
--- NOTE | 2020-02-11 17:47 | NUR ---
NURSE NOTES: Patient experienced episode of PACs with bigeminy and trigeminy during HD. HR 77, SBP remained 140s. Patient denies chest pain, dizziness. shop assistant Evelyn and research consultant Shoaib made aware. Updated both Dr. Peralta. Left voice message for Dr. Barnett on exchange. Strip printed and placed in chart.
--- NOTE | 2020-02-11 19:37 | NUR ---
HAND-OFF: Report given to MARTIN Walter.
--- NOTE | 2020-02-11 19:40 | NUR ---
NURSE NOTES: Received report from MARTIN Sheets. Patient received while on dialysis in room. No respiratory distress noted. Bed is at lowest position and locked with 2 side rails up. Call light and bedside table within reach. nuclear monitoring technician intact and functioning, normal sinus rhythm noted. Will continue plan of care.
[2020-02-11 20:00] VITALS: BP 147/93
[2020-02-11] MEDS ORDERED: Vancomycin 1gm in D5W 275ml IVPB ONE (20:30)
[2020-02-11] MEDS: DiphenhydrAMINE 50mg/ml Inj IVP PRN (21:21)
[2020-02-11] MEDS: HYDROmorphone 1mg/ml Carpuject IVP PRN (22:48)
[2020-02-11] MEDS: Piperacillin/Tazobactam 2.25 GM in D5W 55 ML IVPB SCH (23:34)
[2020-02-12] VITALS: BP 157/68
--- NOTE | 2020-02-12 02:29 | Progress Note ---
DATE: 02/11/2020 SUBJECTIVE: The patient remains on IV antimicrobials. Wound culture is positive for Gram-negative bacillus and Gram-positive cocci. Blood cultures x1 is positive for Gram-positive cocci. The patient has no new complaints. Blood pressure parameters have been high normal range. Monitor reveals sinus rhythm with episodes of atrial and ventricular ectopics. OBJECTIVE: LUNGS: Clear. CARDIAC: Regular. Normal S1, S2 with a fourth heart sound. ABDOMEN: Soft. EXTREMITIES: No edema. IMPRESSION: 1. Hyperkalemia. 2. End-stage renal disease with missed dialysis. 3. Status post drainage of infected Bartholin cyst. 4. Paroxysmal atrial and ventricular arrhythmia. 5. Hypertensive heart disease with history of malignant blood pressure. 6. Anemia, status post transfusions. PLAN: 1. Hemodialysis with ultrafiltration. 2. Titrate antihypertensive regimen. 3. Continue cardiac monitoring. 4. Follow up culture results. 5. Infectious Disease consultation called. 6. Antimicrobials on board for now. 7. Surgical followup. Nam Barnett M.D. DR: BAHMAN JOB#: [id number] CC:
[2020-02-12 04:00] VITALS: BP 161/65
[2020-02-12] MEDS: HydrALAZINE 50mg tab ORAL SCH ×3 (05:12→21:02)
[2020-02-12] MEDS: Piperacillin/Tazobactam 2.25 GM in D5W 55 ML IVPB SCH (05:13)
--- NOTE | 2020-02-12 07:06 | NUR ---
NURSE NOTES: Called and spoke with Dr. Peralta regarding pts 10 second conversion from NSR to Afib, then back to NSR. No new orders given. Will continue to monitor.
--- NOTE | 2020-02-12 07:16 | NUR ---
NURSE NOTES: Endorsed plan of care to MARTIN Sheets. Patient is stable at this time.
--- NOTE | 2020-02-12 07:30 | NUR ---
NURSE NOTES: Received report from MARTIN Walter. Patient asleep but arousable to name. No signs of pain or distress. Breathing is regular and unlabored. IV patent and flushed. Bed low and locked, call light in reach, side rails x3 raised.
[2020-02-12 07:59] LABS: HEMATOCRIT 16.6 % (37.0-47.0); MEAN CORPUSCULAR VOLUME 94 FL (80-99); PLATELET COUNT 113 K/UL (150-450); RED BLOOD COUNT 1.77 M/UL (4.20-5.40); RED CELL DISTRIBUTION WIDTH 14.6 % (11.6-14.8); WHITE BLOOD COUNT 3.6 K/UL (4.8-10.8)
[2020-02-12 08:00] VITALS: BP 164/72
[2020-02-12 08:06] LABS: HEMOGLOBIN 5.2 G/DL (12.0-16.0)
[2020-02-12 08:26] LABS: ALBUMIN 2.8 G/DL (3.4-5.0); ALBUMIN/GLOBULIN RATIO 0.6 (1.0-2.7); ALKALINE PHOSPHATASE 45 U/L (46-116); ANION GAP 8 mmol/L (5-15); ASPARTATE AMINO TRANSFERASE 18 U/L (15-37); BILIRUBIN,TOTAL 0.2 MG/DL (0.2-1.0); BLOOD UREA NITROGEN 24 mg/dL (7-18); CALCIUM 7.3 MG/DL (8.5-10.1); CARBON DIOXIDE 32 MMOL/L (21-32); CHLORIDE 96 MMOL/L (98-107); CREATININE 7.5 MG/DL (0.55-1.30); PHOSPHORUS 4.1 MG/DL (2.5-4.9); POTASSIUM 4.3 MMOL/L (3.5-5.1); SODIUM 136 MMOL/L (136-145)
[2020-02-12] MEDS: Renvela 2400 mg pkt ORAL SCH ×3 (08:27→17:45)
[2020-02-12] MEDS: Docusate 100mg cap ORAL SCH ×3 (08:27→17:45)
--- NOTE | 2020-02-12 08:33 | NUR ---
NURSE NOTES: Huddled with Dr. Peralat. Updated MD regarding H&H 5.2/16.6 with continued moderate to heavy bleeding from vulvar drain. MD states he will order PRBCs.
[2020-02-12 08:34] LABS: ALANINE AMINOTRANSFERASE 7 U/L (12-78)
[2020-02-12] MEDS: HYDROmorphone 1mg/ml Carpuject IVP PRN ×2 (09:28→18:33)
[2020-02-12] MEDS: HYDROcodone/Acetamin 7.5/325 tab ORAL PRN (11:00)
--- NOTE | 2020-02-12 11:23 | General Progress Note ---
Assessment/Plan Status Narrative i was called regarding patient (covering Dr. Easley/Braxton) by dr Willett that patient had Bartholins abcess with drainage in ER and catheter placed. I assured Dr. Willett that drainage from catheter was a normal occurance. Also Dr. King has been seeing the patient for the last 2 days and accessed the drainage as appropriate. In addition I called [facility] and asked for the step- down charge nurse whom I spoke to -- to send me a photo of the patient's pad/ chulk with notation how long ago the pad/chulk was changed to [phone]. Liudmila Benavides MD Feb 12, 2020 11:23
[2020-02-12 11:39] VITALS: BP 155/80
[2020-02-12] MEDS: ALPRAZolam 0.5mg tab ORAL PRN (11:49)
[2020-02-12] MEDS ORDERED: cefTRIAXone 1 GM in D5W 55 ML IVPB SCH (12:00)
[2020-02-12] MEDS: DiphenhydrAMINE 50mg/ml Inj IVP PRN ×2 (12:54→20:43)
--- NOTE | 2020-02-12 13:12 | Nephrology Progress Note ---
Assessment/Plan Problem List: (1) ESRD (end stage renal disease) on dialysis (2) Hyperkalemia (3) Bartholin's gland abscess (4) Anemia (5) HCV antibody positive (6) HIV disease (7) Substance abuse Assessment Patient presents with hyperkalemia, anemia and 1 week of no dialysis Previous frequent chest pains. Anemia and evidence of upper GI bleed and [employer] in the past. Patient was on anticoagulation for atrial fibrillation however it is unclear how compliant the patient is. History of frequent hyperkalemia due to missing hemodialysis. End-stage renal disease on hemodialysis. The patient has a right chest permacath which is not dressed and appears to either be infected or very prone to infection. HIV disease. Substance abuse with previous urine test positive for narcotics and cocaine. History of hepatitis C virus. History of hypertensive kidney disease. Plan February 11: Patient was dialyzed yesterday. Labs reviewed. Hemoglobin low. Due for transfusion. Next dialysis Friday, February 13, unless she needs it earlier. Medications are reviewed. Metoprolol dose increased. February 10: Patient due for dialysis today February 10. No labs drawn today. Will check renal parameters tomorrow. Continue per consultants. Patient anemic, transfusion is suggested. Patient dialyzed February 08, late night, for potassium of 7.4. Will give Kayexalate for high potassium as needed Adjust blood pressure medication. Folate supplement. Due for transfusion. Per orders. Subjective ROS Limited/Unobtainable: No Constitutional: Reports: malaise, weakness Objective Objective Last 24 Hour Vital Signs Date Time Temp Pulse Resp B/P (MAP) Pulse Ox O2 Delivery O2 Flow Rate FiO2 02/12/20 11:39 98.1 88 20 155/80 (105) 99 02/12/20 11:30 98.1 02/12/20 09:00 Room Air 02/12/20 08:27 82 164/72 02/12/20 08:27 82 164/72 02/12/20 08:00 98.2 82 17 164/72 (102) 96 02/12/20 08:00 87 02/12/20 05:12 167/65 02/12/20 04:00 84 02/12/20 04:00 99.5 84 18 161/65 (97) 96 02/12/20 00:00 98 02/12/20 00:00 98.8 85 20 157/68 (97) 99 02/11/20 23:18 98.8 02/11/20 21:22 147/93 02/11/20 21:00 Room Air 02/11/20 20:00 87 02/11/20 20:00 100.0 87 21 147/93 (111) 100 02/11/20 17:47 77 02/11/20 16:00 98.6 84 20 161/84 (109) 98 02/11/20 16:00 77 Intake and Output 02/11/20 02/12/20 19:00 07:00 Intake Total 490 ml Output Total 1000 ml Balance 490 ml -1000 ml Intake Oral 490 ml Output Hemodialysis UF 1000 ml # Voids 1 1 # Bowel Movements 2 Laboratory Tests 02/12/20 07:20: White Blood Count 3.6L, Red Blood Count 1.77L, Hemoglobin 5.2*L, Hematocrit 16.6L, Mean Corpuscular Volume 94, Mean Corpuscular Hemoglobin 29.6, Mean Corpuscular Hemoglobin Concent 31.5L, Red Cell Distribution Width 14.6, Platelet Count 113L, Mean Platelet Volume 6.5, Neutrophils (%) (Auto) , Lymphocytes (%) (Auto) , Monocytes (%) (Auto) , Eosinophils (%) (Auto) , Basophils (%) (Auto) , Differential Total Cells Counted 100, Neutrophils % ( Manual) 61, Lymphocytes % (Manual) 23, Monocytes % (Manual) 12H, Eosinophils % ( Manual) 4H, Basophils % (Manual) 0, Band Neutrophils 0, Platelet Estimate DecreasedL, Platelet Morphology Normal, Hypochromasia 2+, Anisocytosis 1+, Sodium Level 136, Potassium Level 4.3, Chloride Level 96L, Carbon Dioxide Level 32, Anion Gap 8, Blood Urea Nitrogen 24H, Creatinine 7.5H, Estimat Glomerular Filtration Rate 6.5, Glucose Level 96, Calcium Level 7.3L, Phosphorus Level 4.1 , Magnesium Level 2.0, Total Bilirubin 0.2, Aspartate Amino Transf (AST/SGOT) 18 , Alanine Aminotransferase (ALT/SGPT) 7L, Alkaline Phosphatase 45L, Troponin I 0.024, C-Reactive Protein, Quantitative < 0.4, Pro-B-Type Natriuretic Peptide 93961N, Total Protein 7.3, Albumin 2.8L, Globulin 4.5, Albumin/Globulin Ratio 0.6L Height (Feet): 5 Height (Inches): 8.00 Weight (Pounds): 158 General Appearance: no apparent distress Cardiovascular: tachycardia Respiratory/Chest: decreased breath sounds Abdomen: soft Objective No change Jack Pryor MD Feb 12, 2020 13:12
--- NOTE | 2020-02-12 13:53 | Surgery Progress Note ---
Surgery Progress Note Subjective Additional Comments Patient seen exam bedside. Doing well. Anemia transfusing 1 unit. Imaging being completed labs noted. No nausea vomiting fever chills. Catheter from cyst continue draining appropriately. Objective Last 24 Hour Vital Signs Date Time Temp Pulse Resp B/P (MAP) Pulse Ox O2 Delivery O2 Flow Rate FiO2 02/12/20 12:00 71 02/12/20 11:39 98.1 88 20 155/80 (105) 99 02/12/20 11:30 98.1 02/12/20 09:00 Room Air 02/12/20 08:27 82 164/72 02/12/20 08:27 82 164/72 02/12/20 08:00 98.2 82 17 164/72 (102) 96 02/12/20 08:00 87 02/12/20 05:12 167/65 02/12/20 04:00 84 02/12/20 04:00 99.5 84 18 161/65 (97) 96 02/12/20 00:00 98 02/12/20 00:00 98.8 85 20 157/68 (97) 99 02/11/20 23:18 98.8 02/11/20 21:22 147/93 02/11/20 21:00 Room Air 02/11/20 20:00 87 02/11/20 20:00 100.0 87 21 147/93 (111) 100 02/11/20 17:47 77 02/11/20 16:00 98.6 84 20 161/84 (109) 98 02/11/20 16:00 77 I&O Intake and Output 02/11/20 02/12/20 19:00 07:00 Intake Total 490 ml Output Total 1000 ml Balance 490 ml -1000 ml Intake Oral 490 ml Output Hemodialysis UF 1000 ml # Voids 1 1 # Bowel Movements 2 Dressing: saturated Wound: clean Cardiovascular: RSR Respiratory: clear Abdomen: soft, non-tender, present bowel sounds Extremities: no edema, no tenderness, no cyanosis Laboratory Tests Test 02/12/20 07:20 White Blood Count 3.6 K/UL (4.8-10.8) L Red Blood Count 1.77 M/UL (4.20-5.40) L Hemoglobin 5.2 G/DL (12.0-16.0) *L Hematocrit 16.6 % (37.0-47.0) L Mean Corpuscular Volume 94 FL (80-99) Mean Corpuscular Hemoglobin 29.6 PG (27.0-31.0) Mean Corpuscular Hemoglobin Concent 31.5 G/DL (32.0-36.0) L Red Cell Distribution Width 14.6 % (11.6-14.8) Platelet Count 113 K/UL (150-450) L Mean Platelet Volume 6.5 FL (6.5-10.1) Neutrophils (%) (Auto) % (45.0-75.0) Lymphocytes (%) (Auto) % (20.0-45.0) Monocytes (%) (Auto) % (1.0-10.0) Eosinophils (%) (Auto) % (0.0-3.0) Basophils (%) (Auto) % (0.0-2.0) Differential Total Cells Counted 100 Neutrophils % (Manual) 61 % (45-75) Lymphocytes % (Manual) 23 % (20-45) Monocytes % (Manual) 12 % (1-10) H Eosinophils % (Manual) 4 % (0-3) H Basophils % (Manual) 0 % (0-2) Band Neutrophils 0 % (0-8) Platelet Estimate Decreased L Platelet Morphology Normal Hypochromasia 2+ Anisocytosis 1+ Sodium Level 136 MMOL/L (136-145) Potassium Level 4.3 MMOL/L (3.5-5.1) Chloride Level 96 MMOL/L (98-107) L Carbon Dioxide Level 32 MMOL/L (21-32) Anion Gap 8 mmol/L (5-15) Blood Urea Nitrogen 24 mg/dL (7-18) H Creatinine 7.5 MG/DL (0.55-1.30) H Estimat Glomerular Filtration Rate 6.5 mL/min (>60) Glucose Level 96 MG/DL (74-106) Calcium Level 7.3 MG/DL (8.5-10.1) L Phosphorus Level 4.1 MG/DL (2.5-4.9) Magnesium Level 2.0 MG/DL (1.8-2.4) Total Bilirubin 0.2 MG/DL (0.2-1.0) Aspartate Amino Transf (AST/SGOT) 18 U/L (15-37) Alanine Aminotransferase (ALT/SGPT) 7 U/L (12-78) L Alkaline Phosphatase 45 U/L (46-116) L Troponin I 0.024 ng/mL (0.000-0.056) C-Reactive Protein, Quantitative < 0.4 mg/dL (0.00-0.90) Pro-B-Type Natriuretic Peptide 93425 pg/mL (0-125) H Total Protein 7.3 G/DL (6.4-8.2) Albumin 2.8 G/DL (3.4-5.0) L Globulin 4.5 g/dL Albumin/Globulin Ratio 0.6 (1.0-2.7) L Plan Problems: (1) Anemia (2) Bartholin's gland abscess Assessment & Plan: 69-year-old female Bartholin gland abscess cyst. Status post incision and drainage with drain placement. Drain currently in place and still draining. States that it feels better but continues to hurt. Plan for hemodialysis initiated by load checker. Patient has a catheter in place unlikely infected. We will continue to monitor for local abscess drainage and improvement. Will monitor drain and manage drain accordingly. Okay for warm compress as needed. Pain management Rx written. Trend labs. Antibiotics per ID. May need repeat drainage if does not improve significantly. 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 (3) Hypoglycemia (4) Vulval cellulitis (5) Missed dialysis (6) ESRD (end stage renal disease) on dialysis (7) Hyperkalemia (8) Substance abuse (9) HIV disease (10) HCV antibody positive (11) Weakness (12) Epileptic seizure, generalized Deon Crowe Feb 12, 2020 13:53
--- NOTE | 2020-02-12 15:45 | Consultation ---
DATE OF CONSULTATION: 02/12/2020 REFERRING PHYSICIAN: Nam Barnett MD REASON FOR CONSULTATION: Bacteremia. HISTORY OF PRESENTING ILLNESS: This is a 69-year-old lady with history of HIV, hepatitis C, hypertension, atrial fibrillation, chronic kidney disease, on dialysis, who comes in with a dental infection and pain in the pelvic region. She had a cyst that was drained. An infectious diseases consultation has been obtained and she was found to have positive blood cultures. PAST MEDICAL HISTORY: 1. History of HIV. 2. Hepatitis C. 3. Anemia. 4. Atrial fibrillation. 5. Hypertension. 6. Congestive heart failure. 7. Renal failure, on dialysis. SOCIAL HISTORY: She used to be a smoker. She does not smoke anymore. No history of alcohol. She has history of substance abuse. FAMILY HISTORY: Noncontributory. REVIEW OF SYSTEMS: RESPIRATORY: No fever or chills. She has shortness of breath. No cough. No chest pain. CARDIAC: No chest pain. No palpitation. No dizziness. No syncope. GASTROINTESTINAL: No nausea. No vomiting. No abdominal pain or diarrhea. MUSCULOSKELETAL: She complains of pain. MEDICATIONS: As an inpatient, she is on metoprolol, Zosyn, IV vancomycin, Ancef, Dilaudid, hydralazine, Tylenol, folic acid, amlodipine, Benadryl, [place], Xanax, Renvela, Protonix, Colace, Zofran, clonidine. ALLERGIES: 1. Aspirin. 2. Contrast dye. 3. Iodine. PHYSICAL EXAMINATION: VITAL SIGNS: Temperature of 98.2, T-max of 100, pulse of 82, respiratory rate 17, blood pressure 164/72, O2 sats of 96% on room air. HEENT: Pupils equally reactive to light and accommodation. Mouth appears clean without thrush. NECK: Supple. No adenopathy. No JVD. CARDIOVASCULAR: Regular rate and rhythm. No murmurs. LUNGS: Clear to auscultation bilaterally. No crackles. No wheezes. ABDOMEN: Soft, nontender. No organomegaly. EXTREMITIES: No cyanosis, no clubbing, no edema. Right subclavian catheter noted. LABORATORY AND DIAGNOSTIC DATA: White count 3.6, hemoglobin 5.2, hematocrit 16.6, MCV 94, platelet count of 113 with neutrophils of 51%. Sodium 136, potassium 4.3, chloride 96, bicarb 32, BUN 724, creatinine 7.5, glucose 96, calcium 7.3. Total bilirubin 0.2, AST 18, ALT 7, alkaline phosphatase 45. Troponin 0.024. C-reactive protein less than 0.4. Beta-natriuretic peptide 17,683. Total protein 7.3, albumin 2.8, cholesterol 121. Stool for C diff was negative. Nasal swab was negative for MRSA. Rectal swab was negative for VRE. Wound culture is growing Proteus and Enterococcus. The Proteus is susceptible to cefepime, ceftriaxone, Enterococcus is susceptible to ampicillin and vancomycin. Blood culture is growing Staph aureus. Sensitivities are pending. COVID-19 test is negative. ASSESSMENT: This is a 69-year-old lady with history of hypertension, hepatitis C, HIV, who comes in with shortness of breath and is found to have. 1. Staph aureus sepsis, would be concerned regarding catheter sepsis. 2. Infected Bartholin cyst, status post drainage with Proteus and Enterococcus. 3. Hypertension. 4. HIV. 5. Hepatitis C. 6. Renal failure. PLAN: 1. Continue IV vancomycin. 2. Discontinue Ancef and Zosyn. 3. We will start the patient on ceftriaxone. 4. Consider removal of the subclavian catheter. 5. We will order a 2D echocardiogram. 6. We will follow up cultures and adjust antibiotics accordingly. I would like to thank, Dr. Barnett, for this consultation. Elvis Garibay M.D. DR: ANIKET JOB#: [id number] CC: Nam Barnett M.D.
[2020-02-12 16:00] VITALS: BP 146/66
--- NOTE | 2020-02-12 16:39 | General Progress Note ---
Assessment/Plan Problem List: (1) Epileptic seizure, generalized ICD Codes: G40.309 - Generalized idiopathic epilepsy and epileptic syndromes, not intractable, without status epilepticus SNOMED: 78434446 (2) Weakness ICD Codes: R53.1 - Weakness SNOMED: 79778257 (3) HIV disease ICD Codes: B20 - Human immunodeficiency virus [HIV] disease SNOMED: 20998052 (4) Substance abuse ICD Codes: F19.10 - Other psychoactive substance abuse, uncomplicated SNOMED: 37165344 (5) Bartholin's gland abscess ICD Codes: N75.1 - Abscess of Bartholin's gland SNOMED: 52225448 (6) Hypoglycemia ICD Codes: E16.2 - Hypoglycemia, unspecified SNOMED: 875109845 Status: stable Assessment/Plan: Transfuse packed red blood cells. Monitor for continued bleeding from I&D site. IV antibiotics per ID Hemodialysis per renal IV pain medications with caution Cardiology ID gynecology surgery renal recommendations appreciated DVT stress ulcer prophylaxis Consider echo Subjective ROS Limited/Unobtainable: No Constitutional: Reports: malaise, weakness HEENT: Reports: no symptoms Cardiovascular: Reports: no symptoms Respiratory: Reports: no symptoms Gastrointestinal/Abdominal: Reports: no symptoms Genitourinary: Reports: hematuria Neurologic/Psychiatric: Reports: anxiety, emotional problems Endocrine: Reports: no symptoms Hematologic/Lymphatic: Reports: anemia Allergies: Coded Allergies: ASPIRIN (Unverified Allergy, Unknown, 01/16/20) IODINE (Verified Allergy, Unknown, 01/07/20) Uncoded Allergies: CONTRAST DYE (Allergy, Unknown, 01/07/20) All Systems: reviewed and negative except above Subjective Patient continues to complain of severe oral pain. Decrease hemoglobin noted. Continues to have bleeding from Bartholin cyst. No hematuria or melena noted. No bright red blood per rectum. No fevers or chills. No cough. Second COVID tests has still not returned yet Objective Last 24 Hour Vital Signs Date Time Temp Pulse Resp B/P (MAP) Pulse Ox O2 Delivery O2 Flow Rate FiO2 02/12/20 14:47 150/75 02/12/20 12:00 71 02/12/20 11:39 98.1 88 20 155/80 (105) 99 02/12/20 11:30 98.1 02/12/20 09:00 Room Air 02/12/20 08:27 82 164/72 02/12/20 08:27 82 164/72 02/12/20 08:00 98.2 82 17 164/72 (102) 96 02/12/20 08:00 87 02/12/20 05:12 167/65 02/12/20 04:00 84 02/12/20 04:00 99.5 84 18 161/65 (97) 96 02/12/20 00:00 98 02/12/20 00:00 98.8 85 20 157/68 (97) 99 02/11/20 23:18 98.8 02/11/20 21:22 147/93 02/11/20 21:00 Room Air 02/11/20 20:00 87 02/11/20 20:00 100.0 87 21 147/93 (111) 100 02/11/20 17:47 77 Intake and Output 02/11/20 02/12/20 19:00 07:00 Intake Total 490 ml Output Total 1000 ml Balance 490 ml -1000 ml Intake Oral 490 ml Output Hemodialysis UF 1000 ml # Voids 1 1 # Bowel Movements 2 Laboratory Tests 02/12/20 07:20: White Blood Count 3.6L, Red Blood Count 1.77L, Hemoglobin 5.2*L, Hematocrit 16.6L, Mean Corpuscular Volume 94, Mean Corpuscular Hemoglobin 29.6, Mean Corpuscular Hemoglobin Concent 31.5L, Red Cell Distribution Width 14.6, Platelet Count 113L, Mean Platelet Volume 6.5, Neutrophils (%) (Auto) , Lymphocytes (%) (Auto) , Monocytes (%) (Auto) , Eosinophils (%) (Auto) , Basophils (%) (Auto) , Differential Total Cells Counted 100, Neutrophils % ( Manual) 61, Lymphocytes % (Manual) 23, Monocytes % (Manual) 12H, Eosinophils % ( Manual) 4H, Basophils % (Manual) 0, Band Neutrophils 0, Platelet Estimate DecreasedL, Platelet Morphology Normal, Hypochromasia 2+, Anisocytosis 1+, Sodium Level 136, Potassium Level 4.3, Chloride Level 96L, Carbon Dioxide Level 32, Anion Gap 8, Blood Urea Nitrogen 24H, Creatinine 7.5H, Estimat Glomerular Filtration Rate 6.5, Glucose Level 96, Calcium Level 7.3L, Phosphorus Level 4.1 , Magnesium Level 2.0, Total Bilirubin 0.2, Aspartate Amino Transf (AST/SGOT) 18 , Alanine Aminotransferase (ALT/SGPT) 7L, Alkaline Phosphatase 45L, Troponin I 0.024, C-Reactive Protein, Quantitative < 0.4, Pro-B-Type Natriuretic Peptide 69768X, Total Protein 7.3, Albumin 2.8L, Globulin 4.5, Albumin/Globulin Ratio 0.6L Height (Feet): 5 Height (Inches): 8.00 Weight (Pounds): 158 Objective General Appearance: WD/WN, lethargic EENT: PERRL/EOMI, normal ENT inspection Neck: non-tender, normal alignment Cardiovascular: normal peripheral pulses, normal rate, regular rhythm Respiratory/Chest: chest wall non-tender, lungs clear, normal breath sounds Abdomen: normal bowel sounds, non tender, soft, no organomegaly Extremities: normal range of motion Edema: no edema noted Arm (L), no edema noted Arm (R) Neurologic: battery charger tester II-XII grossly normal, no motor/sensory deficits, abnormal gait , alert, oriented x 3, responsive Michael Peralta MD Feb 12, 2020 16:39
[2020-02-12] MEDS: cefTRIAXone 1 GM in D5W 55 ML IVPB SCH (17:45)
--- NOTE | 2020-02-12 19:31 | NUR ---
HAND-OFF: Report given to MARTIN Hayden.
--- NOTE | 2020-02-12 19:55 | NUR ---
NURSE NOTES: Received report from MARTIN James. Patient awake, alert and oriented x4, No signs of pain or distress, but does complain of slight toothache dull achy. Breathing is regular and unlabored on room air, IV patent and flushed, saline locked. Bed is in lowest and locked position, bed alarm on, fall precautions in place. call light is within reach, side rails x3 up. will continue to monitor pt
[2020-02-12 20:00] VITALS: BP 147/69
[2020-02-12] MEDS: Metoprolol Tartrate 50mg tab ORAL SCH (20:44)
[2020-02-13] VITALS (7 sets, daily range): BP systolic 120–145; BP diastolic 61–77
--- NOTE | 2020-02-13 01:45 | Progress Note ---
DATE: 02/12/2020 CARDIOLOGY PROGRESS NOTE SUBJECTIVE: The patient continues to have bleeding from mouth and vaginal cavity. Hemoglobin has dropped to the range of 5.5. The patient remains with sinus rhythm, low-grade fevers. OBJECTIVE: VITAL SIGNS: Blood pressure 155/80, heart rate 88, respiratory rate 20. LUNGS: Clear. Few rhonchi. HEART: Regular rhythm and rate. Normal S1, S2. ABDOMEN: Soft. EXTREMITIES: No new edema. LABORATORY DATA: White count 3.6, hemoglobin 5.2, platelets 113. Sodium 136, potassium 4.3, bicarb 32, BUN 24, creatinine 7.5. Pro-natriuretic peptide 17,000. IMPRESSION: 1. Severe anemia. 2. Bleeding Bartholin cyst. 3. Oral cavity bleeding. 4. Mild thrombocytopenia. 5. Acute on chronic diastolic congestive heart failure. 6. Cocaine abuse. 7. End-stage renal disease. 8. Paroxysmal atrial fibrillation. PLAN: 1. Transfusion of packed red blood cells hemoglobin above 7 g. 2. Surgical followup. 3. Antimicrobials. 4. Off all anticoagulant and anti-platelet therapies. 5. Titrate antihypertensive. 6. Hemodialysis with ultrafiltration for volume management. 7. Continue cardiac monitoring. Remains serious and guarded. Nam Barnett M.D. DR: DOMINGO JOB#: [id number] CC:
[2020-02-13] MEDS: HydrALAZINE 50mg tab ORAL SCH ×3 (06:28→21:26)
--- NOTE | 2020-02-13 07:26 | NUR ---
HAND-OFF: Report given to Erika SALAZAR
--- NOTE | 2020-02-13 07:30 | NUR ---
NURSE NOTES: Received report from MARTIN Duenas. Pt. asleep in bed but arousable to name. Patient AAO x4, calm. No acute distress. Breathing regular and unlabored on room air. Pt. complains of 9/10 vaginal pain. Drain intact, no drainage/discharge observed. Bed low and locked, call light in reach, side rails raised x2, fall education provided.
[2020-02-13 08:20] LABS: HEMATOCRIT 20.3 % (37.0-47.0); MEAN CORPUSCULAR VOLUME 94 FL (80-99); PLATELET COUNT 125 K/UL (150-450); RED BLOOD COUNT 2.16 M/UL (4.20-5.40); RED CELL DISTRIBUTION WIDTH 13.8 % (11.6-14.8); WHITE BLOOD COUNT 4.5 K/UL (4.8-10.8)
[2020-02-13 08:33] LABS: HEMOGLOBIN 6.6 G/DL (12.0-16.0)
--- NOTE | 2020-02-13 08:44 | General Progress Note ---
Assessment/Plan Problem List: (1) Epileptic seizure, generalized ICD Codes: G40.309 - Generalized idiopathic epilepsy and epileptic syndromes, not intractable, without status epilepticus SNOMED: 09732098 (2) Weakness ICD Codes: R53.1 - Weakness SNOMED: 87326472 (3) HIV disease ICD Codes: B20 - Human immunodeficiency virus [HIV] disease SNOMED: 57732882 (4) Substance abuse ICD Codes: F19.10 - Other psychoactive substance abuse, uncomplicated SNOMED: 63798563 (5) Bartholin's gland abscess ICD Codes: N75.1 - Abscess of Bartholin's gland SNOMED: 53141616 (6) Hypoglycemia ICD Codes: E16.2 - Hypoglycemia, unspecified SNOMED: 819273295 Status: stable Assessment/Plan: Transfuse packed red blood cells. Monitor for continued bleeding from I&D site - appears to have resolved IV antibiotics per ID Hemodialysis per renal IV pain medications with caution Cardiology ID gynecology surgery renal recommendations appreciated DVT stress ulcer prophylaxis tylenol for fevers dvt/stress ulcer prophylaxis Subjective ROS Limited/Unobtainable: No Constitutional: Reports: malaise, weakness HEENT: Reports: no symptoms Cardiovascular: Reports: no symptoms Respiratory: Reports: no symptoms Gastrointestinal/Abdominal: Reports: no symptoms Genitourinary: Reports: burning Neurologic/Psychiatric: Reports: no symptoms Endocrine: Reports: no symptoms Hematologic/Lymphatic: Reports: anemia Allergies: Coded Allergies: ASPIRIN (Unverified Allergy, Unknown, 01/16/20) IODINE (Verified Allergy, Unknown, 01/07/20) Uncoded Allergies: CONTRAST DYE (Allergy, Unknown, 01/07/20) All Systems: reviewed and negative except above Subjective complains on pain. s/p 1unit prbcs. no bleeding from IandD site. hgb to 6.6. asking from more pain meds. + fevers this am. On iv abx. Objective Last 24 Hour Vital Signs Date Time Temp Pulse Resp B/P (MAP) Pulse Ox O2 Delivery O2 Flow Rate FiO2 02/13/20 08:00 101.3 67 18 142/68 (92) 97 02/13/20 06:29 99.1 143/64 (90) 02/13/20 06:28 143/64 02/13/20 04:00 64 02/13/20 03:52 97.9 76 19 145/70 (95) 96 02/13/20 00:30 98.6 02/13/20 00:00 98.6 74 19 136/77 (96) 95 02/13/20 00:00 64 02/12/20 21:02 147/69 02/12/20 21:00 Room Air 02/12/20 20:44 71 147/69 02/12/20 20:00 70 02/12/20 20:00 98.6 71 19 147/69 (95) 94 02/12/20 19:04 172/83 02/12/20 16:00 97.9 72 18 146/66 (92) 98 02/12/20 16:00 72 02/12/20 14:47 150/75 02/12/20 12:00 71 02/12/20 11:39 98.1 88 20 155/80 (105) 99 02/12/20 09:00 Room Air Intake and Output 02/12/20 02/13/20 19:00 07:00 Intake Total 440 ml 240 ml Balance 440 ml 240 ml Intake Oral 440 ml 240 ml # Bowel Movements 3 Laboratory Tests 02/13/20 07:35: White Blood Count 4.5L, Red Blood Count 2.16L, Hemoglobin 6.6*L, Hematocrit 20.3L, Mean Corpuscular Volume 94, Mean Corpuscular Hemoglobin 30.4, Mean Corpuscular Hemoglobin Concent 32.5, Red Cell Distribution Width 13.8, Platelet Count 125L, Mean Platelet Volume 5.9L, Neutrophils (%) (Auto) , Lymphocytes (%) (Auto) , Monocytes (%) (Auto) , Eosinophils (%) (Auto) , Basophils (%) (Auto) , Neutrophils % (Manual) [Pending], Lymphocytes % (Manual) [Pending], Platelet Estimate [Pending], Platelet Morphology [Pending], Sodium Level [Pending], Potassium Level [Pending], Chloride Level [Pending], Carbon Dioxide Level [ Pending], Blood Urea Nitrogen [Pending], Creatinine [Pending], Estimat Glomerular Filtration Rate [Pending], Glucose Level [Pending], Calcium Level [ Pending], Phosphorus Level [Pending], Total Bilirubin [Pending], Aspartate Amino Transf (AST/SGOT) [Pending], Alanine Aminotransferase (ALT/SGPT) [Pending] , Alkaline Phosphatase [Pending], Total Protein [Pending], Albumin [Pending], Globulin [Pending], Random Vancomycin Level [Pending] Height (Feet): 5 Height (Inches): 8.00 Weight (Pounds): 158 Objective General Appearance: WD/WN, lethargic EENT: PERRL/EOMI, normal ENT inspection Neck: non-tender, normal alignment Cardiovascular: normal peripheral pulses, normal rate, regular rhythm Respiratory/Chest: chest wall non-tender, lungs clear, normal breath sounds Abdomen: normal bowel sounds, non tender, soft, no organomegaly Extremities: normal range of motion Edema: no edema noted Arm (L), no edema noted Arm (R) Neurologic: gate cutter II-XII grossly normal, no motor/sensory deficits, abnormal gait , alert, oriented x 3, responsive Michael Peralta MD Feb 13, 2020 08:44
[2020-02-13] MEDS: HYDROcodone/Acetamin 7.5/325 tab ORAL PRN ×3 (08:55→17:09)
[2020-02-13] MEDS: Metoprolol Tartrate 50mg tab ORAL SCH ×2 (08:56→20:12)
[2020-02-13] MEDS: Docusate 100mg cap ORAL SCH ×3 (08:56→17:08)
[2020-02-13] MEDS: Renvela 2400 mg pkt ORAL SCH ×3 (08:57→17:09)
[2020-02-13] MEDS: cefTRIAXone 1 GM in D5W 55 ML IVPB SCH (08:57)
[2020-02-13 09:03] LABS: ALANINE AMINOTRANSFERASE < 6 U/L (12-78); ALBUMIN 2.6 G/DL (3.4-5.0); ALBUMIN/GLOBULIN RATIO 0.6 (1.0-2.7); ALKALINE PHOSPHATASE 46 U/L (46-116); ANION GAP 7 mmol/L (5-15); ASPARTATE AMINO TRANSFERASE 21 U/L (15-37); BILIRUBIN,TOTAL 0.3 MG/DL (0.2-1.0); BLOOD UREA NITROGEN 35 mg/dL (7-18); CALCIUM 7.3 MG/DL (8.5-10.1); CARBON DIOXIDE 30 MMOL/L (21-32); CHLORIDE 93 MMOL/L (98-107); CREATININE 9.3 MG/DL (0.55-1.30); POTASSIUM 4.7 MMOL/L (3.5-5.1); SODIUM 130 MMOL/L (136-145)
--- NOTE | 2020-02-13 10:03 | Surgery Progress Note ---
Surgery Progress Note Subjective Additional Comments doing well states lower abdominal pain vaginal pain improved drain in place minimal drainage now no n/v/f/c Objective Last 24 Hour Vital Signs Date Time Temp Pulse Resp B/P (MAP) Pulse Ox O2 Delivery O2 Flow Rate FiO2 02/13/20 08:56 67 142/68 02/13/20 08:56 67 142/68 02/13/20 08:42 Room Air 02/13/20 08:00 101.3 67 18 142/68 (92) 97 02/13/20 06:29 99.1 143/64 (90) 02/13/20 06:28 143/64 02/13/20 04:00 64 02/13/20 03:52 97.9 76 19 145/70 (95) 96 02/13/20 00:30 98.6 02/13/20 00:00 98.6 74 19 136/77 (96) 95 02/13/20 00:00 64 02/12/20 21:02 147/69 02/12/20 21:00 Room Air 02/12/20 20:44 71 147/69 02/12/20 20:00 70 02/12/20 20:00 98.6 71 19 147/69 (95) 94 02/12/20 19:04 172/83 02/12/20 16:00 97.9 72 18 146/66 (92) 98 02/12/20 16:00 72 02/12/20 14:47 150/75 02/12/20 12:00 71 02/12/20 11:39 98.1 88 20 155/80 (105) 99 I&O Intake and Output 02/12/20 02/13/20 19:00 07:00 Intake Total 440 ml 240 ml Balance 440 ml 240 ml Intake Oral 440 ml 240 ml # Bowel Movements 3 Dressing: dry, other Wound: other Drains: other Cardiovascular: RSR Respiratory: decreased breath sounds Abdomen: soft, non-tender, present bowel sounds Extremities: no edema, no tenderness, no cyanosis Laboratory Tests Test 02/13/20 07:35 White Blood Count 4.5 K/UL (4.8-10.8) L Red Blood Count 2.16 M/UL (4.20-5.40) L Hemoglobin 6.6 G/DL (12.0-16.0) *L Hematocrit 20.3 % (37.0-47.0) L Mean Corpuscular Volume 94 FL (80-99) Mean Corpuscular Hemoglobin 30.4 PG (27.0-31.0) Mean Corpuscular Hemoglobin Concent 32.5 G/DL (32.0-36.0) Red Cell Distribution Width 13.8 % (11.6-14.8) Platelet Count 125 K/UL (150-450) L Mean Platelet Volume 5.9 FL (6.5-10.1) L Neutrophils (%) (Auto) % (45.0-75.0) Lymphocytes (%) (Auto) % (20.0-45.0) Monocytes (%) (Auto) % (1.0-10.0) Eosinophils (%) (Auto) % (0.0-3.0) Basophils (%) (Auto) % (0.0-2.0) Differential Total Cells Counted 100 Neutrophils % (Manual) 77 % (45-75) H Lymphocytes % (Manual) 9 % (20-45) L Monocytes % (Manual) 10 % (1-10) Eosinophils % (Manual) 4 % (0-3) H Basophils % (Manual) 0 % (0-2) Band Neutrophils 0 % (0-8) Platelet Estimate Decreased L Platelet Morphology Normal Polychromasia 1+ Hypochromasia 1+ Sodium Level 130 MMOL/L (136-145) L Potassium Level 4.7 MMOL/L (3.5-5.1) Chloride Level 93 MMOL/L (98-107) L Carbon Dioxide Level 30 MMOL/L (21-32) Anion Gap 7 mmol/L (5-15) Blood Urea Nitrogen 35 mg/dL (7-18) H Creatinine 9.3 MG/DL (0.55-1.30) H Estimat Glomerular Filtration Rate 5.1 mL/min (>60) Glucose Level 99 MG/DL (74-106) Calcium Level 7.3 MG/DL (8.5-10.1) L Phosphorus Level 4.2 MG/DL (2.5-4.9) Total Bilirubin 0.3 MG/DL (0.2-1.0) Aspartate Amino Transf (AST/SGOT) 21 U/L (15-37) Alanine Aminotransferase (ALT/SGPT) < 6 U/L (12-78) L Alkaline Phosphatase 46 U/L (46-116) Total Protein 7.0 G/DL (6.4-8.2) Albumin 2.6 G/DL (3.4-5.0) L Globulin 4.4 g/dL Albumin/Globulin Ratio 0.6 (1.0-2.7) L Random Vancomycin Level 13.4 ug/mL Plan Problems: (1) Anemia (2) Bartholin's gland abscess Assessment & Plan: 69-year-old female Bartholin gland abscess cyst. Status post incision and drainage with drain placement. Drain currently in place and still draining. States that it feels better but continues to hurt. Plan for hemodialysis initiated by manager compliance. Patient has a catheter in place unlikely infected. We will continue to monitor for local abscess drainage and improvement. Will monitor drain and manage drain accordingly. Okay for warm compress as needed. Pain management Rx written. Trend labs. Antibiotics per ID. May need repeat drainage if does not improve significantly. Thank you for letting participate in patient's care will follow recommendations anemia - transfuse prbc with HD Continue with catheter drainage functional doing well Discussed care plan with the patient Plan for outpatient [facility] follow-up on discharge. prbc with HD prn as per renal drain okay KUB in AM bowel regimen - constipated (3) Hypoglycemia (4) Vulval cellulitis (5) Missed dialysis (6) ESRD (end stage renal disease) on dialysis (7) Hyperkalemia (8) Substance abuse (9) HIV disease (10) HCV antibody positive (11) Weakness (12) Epileptic seizure, generalized Deon Crowe Feb 13, 2020 10:02
[2020-02-13] MEDS ORDERED: NS 275ml ONE (10:06)
[2020-02-13] MEDS ORDERED: Tubing IV Secondary IV ONE (10:06)
[2020-02-13] MEDS ORDERED: Milk of Magnesia 30ml Ud ORAL SCH (10:15)
[2020-02-13] MEDS ORDERED: Milk of Magnesia 30ml Ud ORAL PRN (10:15)
--- NOTE | 2020-02-13 10:47 | NUR ---
NURSE NOTES: Spoke with Dr. Liudmila Benavides. Updated MD that pt. no longer has drainage. No new orders.
[2020-02-13] MEDS: HYDROmorphone 1mg/ml Carpuject IVP PRN ×3 (10:54→20:13)
[2020-02-13] MEDS ORDERED: Vancomycin 1 GM in NS 275 ML IVPB SCH (11:00)
--- NOTE | 2020-02-13 13:10 | Infectious Diseases Prog Note ---
Assessment/Plan Assessment/Plan A: 1. Staph aureus sepsis (MSSA), ?catheter infection. 2. Infected Bartholin cyst, status post drainage with Proteus and Enterococcus. 3. Hypertension. 4. HIV. 5. Hepatitis C. 6. ESRD. 7. Severe anemia 8. Cocaine abuse PLAN: 1. Continue IV vancomycin & ceftriaxone. 2. Consider removal of the subclavian catheter. Subjective Constitutional: Reports: fever, anorexia, other - Jv=504.3 Respiratory: Reports: no symptoms Gastrointestinal/Abdominal: Reports: nausea Genitourinary: Reports: no symptoms Allergies: Coded Allergies: ASPIRIN (Unverified Allergy, Unknown, 01/16/20) IODINE (Verified Allergy, Unknown, 01/07/20) Uncoded Allergies: CONTRAST DYE (Allergy, Unknown, 01/07/20) Objective Last 24 Hour Vital Signs Date Time Temp Pulse Resp B/P (MAP) Pulse Ox O2 Delivery O2 Flow Rate FiO2 02/13/20 11:08 98.8 61 19 136/70 (92) 100 02/13/20 09:28 98.1 02/13/20 09:28 98.1 02/13/20 08:56 67 142/68 02/13/20 08:56 67 142/68 02/13/20 08:42 Room Air 02/13/20 08:00 101.3 67 18 142/68 (92) 97 02/13/20 08:00 71 02/13/20 06:29 99.1 143/64 (90) 02/13/20 06:28 143/64 02/13/20 04:00 64 02/13/20 03:52 97.9 76 19 145/70 (95) 96 02/13/20 00:30 98.6 02/13/20 00:00 98.6 74 19 136/77 (96) 95 02/13/20 00:00 64 02/12/20 21:02 147/69 02/12/20 21:00 Room Air 02/12/20 20:44 71 147/69 02/12/20 20:00 70 02/12/20 20:00 98.6 71 19 147/69 (95) 94 02/12/20 19:04 172/83 02/12/20 16:00 97.9 72 18 146/66 (92) 98 02/12/20 16:00 72 02/12/20 14:47 150/75 Height (Feet): 5 Height (Inches): 8.00 Weight (Pounds): 158 HEENT: mucous membranes moist Respiratory/Chest: lungs clear Cardiovascular: normal rate, other - R permacath Abdomen: soft, non tender Extremities: no edema Neurologic/Psychiatric: alert, oriented x 3, responsive Laboratory Tests Test 02/13/20 07:35 White Blood Count 4.5 K/UL (4.8-10.8) L Red Blood Count 2.16 M/UL (4.20-5.40) L Hemoglobin 6.6 G/DL (12.0-16.0) *L Hematocrit 20.3 % (37.0-47.0) L Mean Corpuscular Volume 94 FL (80-99) Mean Corpuscular Hemoglobin 30.4 PG (27.0-31.0) Mean Corpuscular Hemoglobin Concent 32.5 G/DL (32.0-36.0) Red Cell Distribution Width 13.8 % (11.6-14.8) Platelet Count 125 K/UL (150-450) L Mean Platelet Volume 5.9 FL (6.5-10.1) L Neutrophils (%) (Auto) % (45.0-75.0) Lymphocytes (%) (Auto) % (20.0-45.0) Monocytes (%) (Auto) % (1.0-10.0) Eosinophils (%) (Auto) % (0.0-3.0) Basophils (%) (Auto) % (0.0-2.0) Differential Total Cells Counted 100 Neutrophils % (Manual) 77 % (45-75) H Lymphocytes % (Manual) 9 % (20-45) L Monocytes % (Manual) 10 % (1-10) Eosinophils % (Manual) 4 % (0-3) H Basophils % (Manual) 0 % (0-2) Band Neutrophils 0 % (0-8) Platelet Estimate Decreased L Platelet Morphology Normal Polychromasia 1+ Hypochromasia 1+ Sodium Level 130 MMOL/L (136-145) L Potassium Level 4.7 MMOL/L (3.5-5.1) Chloride Level 93 MMOL/L (98-107) L Carbon Dioxide Level 30 MMOL/L (21-32) Anion Gap 7 mmol/L (5-15) Blood Urea Nitrogen 35 mg/dL (7-18) H Creatinine 9.3 MG/DL (0.55-1.30) H Estimat Glomerular Filtration Rate 5.1 mL/min (>60) Glucose Level 99 MG/DL (74-106) Calcium Level 7.3 MG/DL (8.5-10.1) L Phosphorus Level 4.2 MG/DL (2.5-4.9) Total Bilirubin 0.3 MG/DL (0.2-1.0) Aspartate Amino Transf (AST/SGOT) 21 U/L (15-37) Alanine Aminotransferase (ALT/SGPT) < 6 U/L (12-78) L Alkaline Phosphatase 46 U/L (46-116) Total Protein 7.0 G/DL (6.4-8.2) Albumin 2.6 G/DL (3.4-5.0) L Globulin 4.4 g/dL Albumin/Globulin Ratio 0.6 (1.0-2.7) L Random Vancomycin Level 13.4 ug/mL Current Medications Medications (Trade) Dose Ordered Sig/Rochelle Route PRN Reason Start Time Stop Time Status Last Admin Dose Admin Acetaminophen (Tylenol) 650 mg Q4H PRN ORAL Mild Pain (Pain Scale 1-3) 02/10/20 11:00 03/11/20 10:59 02/13/20 08:58 Acetaminophen/ Hydrocodone Bitart ([place] 7.5/325) 1 tab Q6H PRN ORAL severe pain 02/09/20 23:30 02/16/20 23:29 02/13/20 08:55 Alprazolam (Xanax) 0.5 mg Q6H PRN ORAL For Anxiety 02/09/20 23:15 02/16/20 23:14 02/12/20 11:49 Amlodipine Besylate (Norvasc) 10 mg DAILY ORAL 02/10/20 09:00 03/11/20 08:59 02/13/20 08:56 Ceftriaxone Sodium 1 gm/ Dextrose 55 ml @ 110 mls/hr DAILY IVPB 02/12/20 15:00 02/19/20 14:59 02/13/20 08:57 Clonidine HCl (Catapres Tab) 0.1 mg Q4H PRN ORAL For BP above 165 systolic 02/09/20 16:15 05/09/20 16:14 02/12/20 19:04 Diphenhydramine HCl (Benadryl) 25 mg Q6H PRN IVP Itching 02/10/20 02:45 03/11/20 02:44 02/12/20 20:43 Docusate Sodium (Colace) 100 mg TID ORAL 02/09/20 18:00 03/10/20 17:59 02/13/20 12:47 Folic Acid (Folate) 2 mg DAILY ORAL 02/10/20 10:00 03/11/20 09:59 02/13/20 08:56 Hydralazine HCl (Apresoline) 50 mg Q8HR ORAL 02/10/20 14:00 05/09/20 17:59 02/13/20 06:28 Hydromorphone HCl (Dilaudid) 1 mg Q4H PRN IVP For Severe Pain 02/11/20 17:15 02/18/20 17:14 02/13/20 12:15 Magnesium Hydroxide (Mom) 30 ml DAILYPRN PRN ORAL Constipation 02/13/20 10:15 03/14/20 10:14 Metoprolol Tartrate (Lopressor) 50 mg Q12HR ORAL 02/12/20 21:00 05/12/20 08:59 02/13/20 08:56 Ondansetron HCl (Zofran) 4 mg Q6H PRN IV Nausea & Vomiting 02/09/20 16:15 03/10/20 16:14 02/13/20 12:47 Pantoprazole (Protonix) 40 mg BID ORAL 02/09/20 18:00 03/10/20 17:59 02/13/20 08:57 Sevelamer Carbonate (Renvela) 2,400 mg THREE TIMES A DAY ORAL 02/09/20 18:00 05/09/20 17:59 02/13/20 12:47 Vancomycin HCl (Vanco pharmacy to dose) 1 ea DAILY PRN MISC Per rx protocol 02/11/20 17:15 03/12/20 17:14 Armando Brown MD Feb 13, 2020 13:10
[2020-02-13] MEDS: ALPRAZolam 0.5mg tab ORAL PRN (13:14)
[2020-02-13] MEDS: DiphenhydrAMINE 50mg/ml Inj IVP PRN ×2 (13:34→21:58)
--- NOTE | 2020-02-13 13:53 | Nephrology Progress Note ---
Assessment/Plan Problem List: (1) ESRD (end stage renal disease) on dialysis (2) Hyperkalemia (3) Bartholin's gland abscess (4) Anemia (5) HCV antibody positive (6) HIV disease (7) Substance abuse Assessment Patient presents with hyperkalemia, anemia and 1 week of no dialysis Previous frequent chest pains. Anemia and evidence of upper GI bleed and [employer] in the past. Patient was on anticoagulation for atrial fibrillation however it is unclear how compliant the patient is. History of frequent hyperkalemia due to missing hemodialysis. End-stage renal disease on hemodialysis. The patient has a right chest permacath which is not dressed and appears to either be infected or very prone to infection. HIV disease. Substance abuse with previous urine test positive for narcotics and cocaine. History of hepatitis C virus. History of hypertensive kidney disease. Plan February 12: Next dialysis tomorrow on February 13. Hemoglobin remains low patient is due for another transfusion today. Continue per current treatment plan. February 11: Patient was dialyzed yesterday. Labs reviewed. Hemoglobin low. Due for transfusion. Next dialysis February 13, unless she needs it earlier. Medications are reviewed. Metoprolol dose increased. February 10: Patient due for dialysis today February 10. No labs drawn today. Will check renal parameters tomorrow. Continue per consultants. Patient anemic, transfusion is suggested. Patient dialyzed February 08, late night, for potassium of 7.4. Will give Kayexalate for high potassium as needed Adjust blood pressure medication. Folate supplement. Due for transfusion. Per orders. Subjective ROS Limited/Unobtainable: No Constitutional: Reports: malaise Objective Objective Last 24 Hour Vital Signs Date Time Temp Pulse Resp B/P (MAP) Pulse Ox O2 Delivery O2 Flow Rate FiO2 02/13/20 13:13 145/75 02/13/20 11:08 98.8 61 19 136/70 (92) 100 02/13/20 09:28 98.1 02/13/20 09:28 98.1 02/13/20 08:56 67 142/68 02/13/20 08:56 67 142/68 02/13/20 08:42 Room Air 02/13/20 08:00 101.3 67 18 142/68 (92) 97 02/13/20 08:00 71 02/13/20 06:29 99.1 143/64 (90) 02/13/20 06:28 143/64 02/13/20 04:00 64 02/13/20 03:52 97.9 76 19 145/70 (95) 96 02/13/20 00:30 98.6 02/13/20 00:00 98.6 74 19 136/77 (96) 95 02/13/20 00:00 64 02/12/20 21:02 147/69 02/12/20 21:00 Room Air 02/12/20 20:44 71 147/69 02/12/20 20:00 70 02/12/20 20:00 98.6 71 19 147/69 (95) 94 02/12/20 19:04 172/83 02/12/20 16:00 97.9 72 18 146/66 (92) 98 02/12/20 16:00 72 02/12/20 14:47 150/75 Intake and Output 02/12/20 02/13/20 19:00 07:00 Intake Total 440 ml 240 ml Balance 440 ml 240 ml Intake Oral 440 ml 240 ml # Bowel Movements 3 Laboratory Tests 02/13/20 07:35: White Blood Count 4.5L, Red Blood Count 2.16L, Hemoglobin 6.6*L, Hematocrit 20.3L, Mean Corpuscular Volume 94, Mean Corpuscular Hemoglobin 30.4, Mean Corpuscular Hemoglobin Concent 32.5, Red Cell Distribution Width 13.8, Platelet Count 125L, Mean Platelet Volume 5.9L, Neutrophils (%) (Auto) , Lymphocytes (%) (Auto) , Monocytes (%) (Auto) , Eosinophils (%) (Auto) , Basophils (%) (Auto) , Differential Total Cells Counted 100, Neutrophils % (Manual) 77H, Lymphocytes % (Manual) 9L, Monocytes % (Manual) 10, Eosinophils % (Manual) 4H, Basophils % ( Manual) 0, Band Neutrophils 0, Platelet Estimate DecreasedL, Platelet Morphology Normal, Polychromasia 1+, Hypochromasia 1+, Sodium Level 130L, Potassium Level 4.7, Chloride Level 93L, Carbon Dioxide Level 30, Anion Gap 7, Blood Urea Nitrogen 35H, Creatinine 9.3H, Estimat Glomerular Filtration Rate 5.1 , Glucose Level 99, Calcium Level 7.3L, Phosphorus Level 4.2, Total Bilirubin 0.3, Aspartate Amino Transf (AST/SGOT) 21, Alanine Aminotransferase (ALT/SGPT) < 6L, Alkaline Phosphatase 46, Total Protein 7.0, Albumin 2.6L, Globulin 4.4, Albumin/Globulin Ratio 0.6L, Random Vancomycin Level 13.4 Height (Feet): 5 Height (Inches): 8.00 Weight (Pounds): 158 General Appearance: no apparent distress Cardiovascular: bradycardia Respiratory/Chest: decreased breath sounds Abdomen: soft Objective No change Jack Pryor MD Feb 13, 2020 13:53
[2020-02-13] MEDS ORDERED: Docusate 100mg cap ORAL SCH (18:00)
--- NOTE | 2020-02-13 19:08 | NUR ---
HAND-OFF: Report given to MARTIN Peña.
--- NOTE | 2020-02-13 19:50 | NUR ---
NURSE NOTES: Received patient in bed, asleep, no acute distress noted,IV site is clean dry and intact, blood transfusion is currently running, no reaction noted or reported,on room air, renal diet, call light is within reach, bed is lowered, locked, alarm is on, will continue to monitor for comfort and safety.
--- NOTE | 2020-02-13 20:44 | Progress Note ---
DATE: 02/13/2020 CARDIOLOGY PROGRESS NOTE SUBJECTIVE: The patient has fever up to 101.3 this morning. She notes continued pain from her vaginal area although decreased. The drain is in place, but has decreased. OBJECTIVE: LUNGS: Clear. CARDIAC: Regular. Normal S1, S2. There is a fourth heart sound. ABDOMEN: Soft. EXTREMITIES: No edema. LABORATORY DATA: Blood pressure 142/68, heart rate 67, respiratory rate 18, and room air oxygen saturations are 95% to 97%. LABORATORY DATA: White count 4.5 and hemoglobin 6.6 following transfusion. Sodium 130, potassium 4.7, bicarb 30, BUN 35, and creatinine 9.3. Albumin 2.6. IMPRESSION: 1. Severe anemia due to blood loss and chronic kidney disease. 2. End-stage renal disease. 3. Hyperkalemia secondary to missed dialysis sessions, now recovered. 4. Hypertensive heart disease. 5. Acute on chronic diastolic congestive heart failure. 6. Moderate protein-calorie malnutrition. 7. HIV and hepatitis C positive. 8. Bartholin cyst status post drainage. PLAN: 1. Surgical followup for drain management. 2. Hemodialysis with ultrafiltration. 3. Transfuse to hemoglobin above 7. 4. Continue vitamin replacement. 5. Protein supplement. 6. Titrate antihypertensives. 7. Avoid tighter blood pressure control at this time. Nam Barnett M.D. DR: ADAM JOB#: [id number] CC:
[2020-02-14] VITALS: BP 135/66
[2020-02-14 04:00] VITALS: BP 138/61
[2020-02-14] MEDS: HydrALAZINE 50mg tab ORAL SCH ×3 (06:12→22:40)
[2020-02-14] MEDS: HYDROmorphone 1mg/ml Carpuject IVP PRN ×4 (06:16→22:48)
[2020-02-14 07:26] LABS: HEMATOCRIT 22.3 % (37.0-47.0); HEMOGLOBIN 7.3 G/DL (12.0-16.0); MEAN CORPUSCULAR VOLUME 92 FL (80-99); PLATELET COUNT 128 K/UL (150-450); RED BLOOD COUNT 2.41 M/UL (4.20-5.40); RED CELL DISTRIBUTION WIDTH 13.7 % (11.6-14.8)
--- NOTE | 2020-02-14 07:30 | NUR ---
NURSE NOTES: Received pt from MARTIN Peña, pt is awake and alert, pt is in RA, no SOB or acute respiratory distress noted. pt is eating breakfast by observation. pt is on continues heart monitoring. pt has intact IV access LFA 20G SL. pt has scadule for HD. all needs attended, bed is locked and is in the lowest position, call light within easy reach. will continue to monitor.
--- NOTE | 2020-02-14 07:32 | NUR ---
HAND-OFF: Report given to Gera SALAZAR.
[2020-02-14 07:57] LABS: ALANINE AMINOTRANSFERASE 12 U/L (12-78); ALBUMIN 2.5 G/DL (3.4-5.0); ALBUMIN/GLOBULIN RATIO 0.6 (1.0-2.7); ALKALINE PHOSPHATASE 47 U/L (46-116); ANION GAP 7 mmol/L (5-15); ASPARTATE AMINO TRANSFERASE 24 U/L (15-37); BILIRUBIN,TOTAL 0.4 MG/DL (0.2-1.0); BLOOD UREA NITROGEN 44 mg/dL (7-18); CALCIUM 7.7 MG/DL (8.5-10.1); CARBON DIOXIDE 27 MMOL/L (21-32); CHLORIDE 91 MMOL/L (98-107); CREATININE 10.8 MG/DL (0.55-1.30); POTASSIUM 5.1 MMOL/L (3.5-5.1); SODIUM 125 MMOL/L (136-145)
[2020-02-14 08:00] VITALS: BP 138/72
[2020-02-14 08:04] LABS: PHOSPHORUS 4.8 MG/DL (2.5-4.9)
--- NOTE | 2020-02-14 08:26 | Nephrology Progress Note ---
Assessment/Plan Problem List: (1) ESRD (end stage renal disease) on dialysis (2) Hyperkalemia (3) Bartholin's gland abscess (4) Anemia (5) HCV antibody positive (6) HIV disease (7) Substance abuse Assessment Patient presents with hyperkalemia, anemia and 1 week of no dialysis Previous frequent chest pains. Anemia and evidence of upper GI bleed and [employer] in the past. Patient was on anticoagulation for atrial fibrillation however it is unclear how compliant the patient is. History of frequent hyperkalemia due to missing hemodialysis. End-stage renal disease on hemodialysis. The patient has a right chest permacath which is not dressed and appears to either be infected or very prone to infection. HIV disease. Substance abuse with previous urine test positive for narcotics and cocaine. History of hepatitis C virus. History of hypertensive kidney disease. Plan February 13: Due for dialysis today. Hemoglobin higher after transfusion. Continue per consultants. February 12: Next dialysis tomorrow on February 13. Hemoglobin remains low patient is due for another transfusion today. Continue per current treatment plan. February 11: Patient was dialyzed yesterday. Labs reviewed. Hemoglobin low. Due for transfusion. Next dialysis February 13, unless she needs it earlier. Medications are reviewed. Metoprolol dose increased. February 10: Patient due for dialysis today February 10. No labs drawn today. Will check renal parameters tomorrow. Continue per consultants. Patient anemic, transfusion is suggested. Patient dialyzed February 08, late night, for potassium of 7.4. Will give Kayexalate for high potassium as needed Adjust blood pressure medication. Folate supplement. Due for transfusion. Per orders. Subjective ROS Limited/Unobtainable: No Constitutional: Reports: malaise, weakness Objective Objective Last 24 Hour Vital Signs Date Time Temp Pulse Resp B/P (MAP) Pulse Ox O2 Delivery O2 Flow Rate FiO2 02/14/20 07:32 98.8 02/14/20 06:12 138/74 02/14/20 04:00 98.8 84 18 138/61 (86) 98 02/14/20 03:31 59 02/14/20 00:00 99.7 95 18 135/66 (89) 97 02/13/20 23:33 65 02/13/20 21:58 99.0 02/13/20 21:26 138/74 02/13/20 21:12 Room Air 02/13/20 20:12 87 137/74 02/13/20 20:00 100.2 68 18 125/68 (87) 98 02/13/20 19:04 76 02/13/20 16:33 97.6 62 17 120/61 (80) 100 02/13/20 16:00 65 02/13/20 13:13 145/75 02/13/20 12:00 63 02/13/20 11:08 98.8 61 19 136/70 (92) 100 02/13/20 09:28 98.1 02/13/20 08:56 67 142/68 02/13/20 08:56 67 142/68 02/13/20 08:42 Room Air Intake and Output 02/13/20 02/14/20 19:00 07:00 Intake Total 120 ml Output Total 1 ml 1091 ml Balance -1 ml -971 ml Intake Oral 120 ml Output Emesis 1 ml 1 ml Hemodialysis UF 1000 ml Estimated Blood Loss 90 ml # Voids 3 4 # Bowel Movements 1 3 Current Medications Medications (Trade) Dose Ordered Sig/Rochelle Route PRN Reason Start Time Stop Time Status Last Admin Dose Admin Acetaminophen (Tylenol) 650 mg Q4H PRN ORAL Mild Pain (Pain Scale 1-3) 02/10/20 11:00 03/11/20 10:59 02/13/20 21:27 Acetaminophen/ Hydrocodone Bitart ([place] 7.5/325) 1 tab Q6H PRN ORAL severe pain 02/09/20 23:30 02/16/20 23:29 02/13/20 17:09 Alprazolam (Xanax) 0.5 mg Q6H PRN ORAL For Anxiety 02/09/20 23:15 02/16/20 23:14 02/13/20 13:14 Amlodipine Besylate (Norvasc) 10 mg DAILY ORAL 02/10/20 09:00 03/11/20 08:59 02/13/20 08:56 Ceftriaxone Sodium 1 gm/ Dextrose 55 ml @ 110 mls/hr DAILY IVPB 02/12/20 15:00 02/19/20 14:59 02/13/20 08:57 Clonidine HCl (Catapres Tab) 0.1 mg Q4H PRN ORAL For BP above 165 systolic 02/09/20 16:15 05/09/20 16:14 02/12/20 19:04 Diphenhydramine HCl (Benadryl) 25 mg Q6H PRN IVP Itching 02/13/20 13:39 03/14/20 13:38 02/13/20 21:58 Docusate Sodium (Colace) 100 mg TID ORAL 02/09/20 18:00 03/10/20 17:59 02/13/20 17:08 Folic Acid (Folate) 2 mg DAILY ORAL 02/10/20 10:00 03/11/20 09:59 02/13/20 08:56 Hydralazine HCl (Apresoline) 50 mg Q8HR ORAL 02/10/20 14:00 05/09/20 17:59 02/14/20 06:12 Hydromorphone HCl (Dilaudid) 1 mg Q4H PRN IVP For Severe Pain 02/11/20 17:15 02/18/20 17:14 02/14/20 06:16 Magnesium Hydroxide (Mom) 30 ml DAILYPRN PRN ORAL Constipation 02/13/20 10:15 03/14/20 10:14 Metoprolol Tartrate (Lopressor) 50 mg Q12HR ORAL 02/12/20 21:00 05/12/20 08:59 02/13/20 20:12 Ondansetron HCl (Zofran) 4 mg Q6H PRN IV Nausea & Vomiting 02/09/20 16:15 03/10/20 16:14 02/13/20 12:47 Pantoprazole (Protonix) 40 mg BID ORAL 02/09/20 18:00 03/10/20 17:59 02/13/20 17:08 Sevelamer Carbonate (Renvela) 2,400 mg THREE TIMES A DAY ORAL 02/09/20 18:00 05/09/20 17:59 02/13/20 17:09 Vancomycin HCl ([facility] pharmacy to dose) 1 ea DAILY PRN MISC Per rx protocol 02/11/20 17:15 03/12/20 17:14 Laboratory Tests 02/14/20 05:57: White Blood Count 5.0, Red Blood Count 2.41L, Hemoglobin 7.3L, Hematocrit 22.3L , Mean Corpuscular Volume 92, Mean Corpuscular Hemoglobin 30.2, Mean Corpuscular Hemoglobin Concent 32.7, Red Cell Distribution Width 13.7, Platelet Count 128L, Mean Platelet Volume 6.2L, Neutrophils (%) (Auto) , Lymphocytes (%) (Auto) , Monocytes (%) (Auto) , Eosinophils (%) (Auto) , Basophils (%) (Auto) , Neutrophils % (Manual) [Pending], Lymphocytes % (Manual) [Pending], Platelet Estimate [Pending], Platelet Morphology [Pending], Sodium Level 125L, Potassium Level 5.1, Chloride Level 91L, Carbon Dioxide Level 27, Anion Gap 7, Blood Urea Nitrogen 44H, Creatinine 10.8H, Estimat Glomerular Filtration Rate 4.4, Glucose Level 92, Calcium Level 7.7L, Phosphorus Level 4.8, Magnesium Level 2.3, Total Bilirubin 0.4, Aspartate Amino Transf (AST/SGOT) 24, Alanine Aminotransferase ( ALT/SGPT) 12, Alkaline Phosphatase 47, Total Protein 7.0, Albumin 2.5L, Globulin 4.5, Albumin/Globulin Ratio 0.6L Height (Feet): 5 Height (Inches): 8.00 Weight (Pounds): 158 Cardiovascular: normal rate - At times tachycardic Respiratory/Chest: decreased breath sounds Abdomen: soft, distended Objective No change Jack Pryor MD Feb 14, 2020 08:26
[2020-02-14] MEDS: DiphenhydrAMINE 50mg/ml Inj IVP PRN ×2 (08:31→17:29)
--- NOTE | 2020-02-14 08:36 | NUR ---
CASE MANAGEMENT:REVIEW 02/14/20 SI: HYPERKALEMIA. ESRD MISSED HD PAINFUL BARTHOLIN CYST.CHF (+) COCAINE USE 98.4 71 20 138/72 99% ON RA H/H-7.3/22.3 IS: IV ROCEPHIN Q24 LOPRESSOR PO Q12 HYDRALAZINE PO Q8HRS NORVASC PO QD PROTONIX PO BID IV DILAUDID Q4HRS PRN IV BENADRYL Q6HRS PRN : TELEMETRY STATUS DCP: FROM HOME PLAN: DRAIN IN PLACE W/MINIMAL DRAINAGE KUB PAIN MGMT TRANSFUSE PRN DOWN GRADE TO MED/SURG
--- NOTE | 2020-02-14 08:45 | NUR ---
NURSE NOTES: Report received from Gera SALAZAR. Patient transferred from Telemetry to [facility]. Patient is AxOx4, not in any distress, no complaints of pain or discomfort at this time but is requesting Xanax for anxiety. Noted dialysis access permacath on right upper chest. PIV on left forearm patent and intact. Pt is continent and uses a bedpan. Skin assessment done, noted mutiple dry scabs all over body, pt says she likes to scratch and does have itchiness PRN. Noted healed pink open wound on sacral area, documented and applied optifoam for prophylaxis. Vaginal area and vulva where drainage was previously located is dry and open to air. No bleeding or discharge from vagina. Belongings accounted for. Bed low and locked, siderails up x2, call light placed within reach and instructed to call nurse for assistance.
--- NOTE | 2020-02-14 08:45 | NUR ---
NURSE NOTES: Pt is stable, all belongings are with pt, pt transferred to 405 bed 1, report given to MARTIN Onofre, endorsed plan of care, endorsed to F/U for HD today.
[2020-02-14] MEDS: Metoprolol Tartrate 50mg tab ORAL SCH ×2 (09:00→22:39)
[2020-02-14] MEDS: cefTRIAXone 1 GM in D5W 55 ML IVPB SCH (09:28)
[2020-02-14] MEDS: Docusate 100mg cap ORAL SCH ×3 (09:28→17:29)
[2020-02-14] MEDS: ALPRAZolam 0.5mg tab ORAL PRN (09:29)
[2020-02-14] MEDS: Renvela 2400 mg pkt ORAL SCH ×3 (09:29→17:29)
--- NOTE | 2020-02-14 09:46 | Diagnostic Imaging Report ---
Indication: Abdominal pain Technique: Supine view of the abdomen Comparison: 01/16/2020; also [facility] Winder image from abdomen CT 01/19/2020 Findings: There is considerable gas throughout the small bowel which is upper limits normal in caliber but not frankly dilated. Gas volume is increased from the earlier studies Some stool is seen in the hepatic flexure of colon. The included lower chest demonstrates cardiomegaly and a tunneled dialysis catheter. Impression: Gas-filled but nondilated small bowel loops. No definite acute process. Incidental findings as noted
--- NOTE | 2020-02-14 09:53 | General Progress Note ---
Assessment/Plan Problem List: (1) Epileptic seizure, generalized ICD Codes: G40.309 - Generalized idiopathic epilepsy and epileptic syndromes, not intractable, without status epilepticus SNOMED: 46858016 (2) Weakness ICD Codes: R53.1 - Weakness SNOMED: 92763276 (3) HIV disease ICD Codes: B20 - Human immunodeficiency virus [HIV] disease SNOMED: 12629859 (4) Substance abuse ICD Codes: F19.10 - Other psychoactive substance abuse, uncomplicated SNOMED: 14963919 (5) Bartholin's gland abscess ICD Codes: N75.1 - Abscess of Bartholin's gland SNOMED: 45179303 (6) Hypoglycemia ICD Codes: E16.2 - Hypoglycemia, unspecified SNOMED: 146176861 Status: stable Assessment/Plan: cont iv abx follow up cultures HD per renal monitor h/h transfuse as needed epo and iron replacement dvt/stress ulcer prophylaxis. Subjective ROS Limited/Unobtainable: No Constitutional: Reports: malaise, weakness HEENT: Reports: no symptoms Cardiovascular: Reports: no symptoms Respiratory: Reports: no symptoms Gastrointestinal/Abdominal: Reports: abdomen distended Genitourinary: Reports: no symptoms Neurologic/Psychiatric: Reports: anxiety, depressed Endocrine: Reports: no symptoms Hematologic/Lymphatic: Reports: anemia Allergies: Coded Allergies: ASPIRIN (Unverified Allergy, Unknown, 01/16/20) IODINE (Verified Allergy, Unknown, 01/07/20) Uncoded Allergies: CONTRAST DYE (Allergy, Unknown, 01/07/20) All Systems: reviewed and negative except above Subjective no new complaints. +pelvic pain. no reports of bleeding. no fever or chills. on iv abx and iv pain rx. Objective Last 24 Hour Vital Signs Date Time Temp Pulse Resp B/P (MAP) Pulse Ox O2 Delivery O2 Flow Rate FiO2 02/14/20 09:00 Room Air 02/14/20 08:00 98.4 71 20 138/72 (94) 99 02/14/20 07:32 98.8 02/14/20 06:12 138/74 02/14/20 04:00 98.8 84 18 138/61 (86) 98 02/14/20 03:31 59 02/14/20 00:00 99.7 95 18 135/66 (89) 97 02/13/20 23:33 65 02/13/20 21:58 99.0 02/13/20 21:26 138/74 02/13/20 21:12 Room Air 02/13/20 20:12 87 137/74 02/13/20 20:00 100.2 68 18 125/68 (87) 98 02/13/20 19:04 76 02/13/20 16:33 97.6 62 17 120/61 (80) 100 02/13/20 16:00 65 02/13/20 13:13 145/75 02/13/20 12:00 63 02/13/20 11:08 98.8 61 19 136/70 (92) 100 Intake and Output 02/13/20 02/14/20 19:00 07:00 Intake Total 120 ml Output Total 1 ml 1091 ml Balance -1 ml -971 ml Intake Oral 120 ml Output Emesis 1 ml 1 ml Hemodialysis UF 1000 ml Estimated Blood Loss 90 ml # Voids 3 4 # Bowel Movements 1 3 Laboratory Tests 02/14/20 05:57: White Blood Count 5.0, Red Blood Count 2.41L, Hemoglobin 7.3L, Hematocrit 22.3L , Mean Corpuscular Volume 92, Mean Corpuscular Hemoglobin 30.2, Mean Corpuscular Hemoglobin Concent 32.7, Red Cell Distribution Width 13.7, Platelet Count 128L, Mean Platelet Volume 6.2L, Neutrophils (%) (Auto) , Lymphocytes (%) (Auto) , Monocytes (%) (Auto) , Eosinophils (%) (Auto) , Basophils (%) (Auto) , Neutrophils % (Manual) [Pending], Lymphocytes % (Manual) [Pending], Platelet Estimate [Pending], Platelet Morphology [Pending], Sodium Level 125L, Potassium Level 5.1, Chloride Level 91L, Carbon Dioxide Level 27, Anion Gap 7, Blood Urea Nitrogen 44H, Creatinine 10.8H, Estimat Glomerular Filtration Rate 4.4, Glucose Level 92, Calcium Level 7.7L, Phosphorus Level 4.8, Magnesium Level 2.3, Total Bilirubin 0.4, Aspartate Amino Transf (AST/SGOT) 24, Alanine Aminotransferase ( ALT/SGPT) 12, Alkaline Phosphatase 47, Total Protein 7.0, Albumin 2.5L, Globulin 4.5, Albumin/Globulin Ratio 0.6L Height (Feet): 5 Height (Inches): 8.00 Weight (Pounds): 158 Objective General Appearance: WD/WN, lethargic EENT: PERRL/EOMI, normal ENT inspection Neck: non-tender, normal alignment Cardiovascular: normal peripheral pulses, normal rate, regular rhythm Respiratory/Chest: chest wall non-tender, lungs clear, normal breath sounds Abdomen: normal bowel sounds, non tender, soft, no organomegaly Extremities: normal range of motion Edema: no edema noted Arm (L), no edema noted Arm (R) Neurologic: building services 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
--- NOTE | 2020-02-14 11:20 | NUR ---
RD ASSESSMENT & RECOMMENDATIONS SEE CARE ACTIVITY FOR COMPLETE ASSESSMENT DAILY ESTIMATED NEEDS: Needs based on ESRD on HD 67.4kg abw 30-35 kcals/kg 9961-6502 total kcals 1.2-1.8 g protein/kg 81-121 g total protein fluid per MD, on HD NUTRITION DIAGNOSIS: Increased kcal and pro needs r/t renal dysfunction as evidenced by pt w/ ESRD on HD CURRENT DIET:Renal PO DIET RECOMMENDATIONS: Maintain renal diet, texture as tolerated ADDITIONAL RECOMMENDATIONS: 1) Obtain a standing scale wt as able or calibrated bed scale -> POST HD wt as able 2) Monitor for po intake and need for supplement -> Add NEPRO 1 tetra qdaily 3) Trend Na, need for fluid restriction 4) Wound care: add ERICA in 4oz water BID + Nephrovite qdaily
--- NOTE | 2020-02-14 11:38 | Infectious Diseases Prog Note ---
"Assessment/Plan Assessment/Plan antibiotics : vancomycin iv, ceftriaxone A 1. staph aureus sepsis 2. bartholins cyst infection with proteus | enterococcus s/p drainage 3. Hypertension. 4. HIV. 5. Hepatitis C. 6. Renal failure. PLAN: 1. Continue IV vancomycin. 2. continue ceftriaxone. 3. Consider removal of the subclavian catheter. 4. 2D echocardiogram pending 5. We will follow up cultures Subjective Constitutional: Denies: fever, chills Respiratory: Denies: shortness of breath, dry cough Gastrointestinal/Abdominal: Denies: nausea, vomiting, diarrhea Musculoskeletal: Reports: pain Allergies: Coded Allergies: ASPIRIN (Unverified Allergy, Unknown, 01/16/20) IODINE (Verified Allergy, Unknown, 01/07/20) Uncoded Allergies: CONTRAST DYE (Allergy, Unknown, 01/07/20) Objective Last 24 Hour Vital Signs Date Time Temp Pulse Resp B/P (MAP) Pulse Ox O2 Delivery O2 Flow Rate FiO2 02/14/20 09:00 Room Air 02/14/20 08:00 98.4 71 20 138/72 (94) 99 02/14/20 07:49 74 02/14/20 07:32 98.8 02/14/20 06:12 138/74 02/14/20 04:00 98.8 84 18 138/61 (86) 98 02/14/20 03:31 59 02/14/20 00:00 99.7 95 18 135/66 (89) 97 02/13/20 23:33 65 02/13/20 21:58 99.0 02/13/20 21:26 138/74 02/13/20 21:12 Room Air 02/13/20 20:12 87 137/74 02/13/20 20:00 100.2 68 18 125/68 (87) 98 02/13/20 19:04 76 02/13/20 16:33 97.6 62 17 120/61 (80) 100 02/13/20 16:00 65 02/13/20 13:13 145/75 02/13/20 12:00 63 Height (Feet): 5 Height (Inches): 8.00 Weight (Pounds): 158 Respiratory/Chest: lungs clear Cardiovascular: normal rate, regular rhythm, no gallop/murmur Abdomen: soft, non tender Extremities: no edema, other - right subclavian catheter Laboratory Tests Test 02/14/20 05:57 White Blood Count 5.0 K/UL (4.8-10.8) Red Blood Count 2.41 M/UL (4.20-5.40) L Hemoglobin 7.3 G/DL (12.0-16.0) L Hematocrit 22.3 % (37.0-47.0) L Mean Corpuscular Volume 92 FL (80-99) Mean Corpuscular Hemoglobin 30.2 PG (27.0-31.0) Mean Corpuscular Hemoglobin Concent 32.7 G/DL (32.0-36.0) Red Cell Distribution Width 13.7 % (11.6-14.8) Platelet Count 128 K/UL (150-450) L Mean Platelet Volume 6.2 FL (6.5-10.1) L Neutrophils (%) (Auto) % (45.0-75.0) Lymphocytes (%) (Auto) % (20.0-45.0) Monocytes (%) (Auto) % (1.0-10.0) Eosinophils (%) (Auto) % (0.0-3.0) Basophils (%) (Auto) % (0.0-2.0) Differential Total Cells Counted 100 Neutrophils % (Manual) 76 % (45-75) H Lymphocytes % (Manual) 12 % (20-45) L Monocytes % (Manual) 8 % (1-10) Eosinophils % (Manual) 4 % (0-3) H Basophils % (Manual) 0 % (0-2) Band Neutrophils 0 % (0-8) Platelet Estimate Decreased L Platelet Morphology Normal Hypochromasia 1+ Sodium Level 125 MMOL/L (136-145) L Potassium Level 5.1 MMOL/L (3.5-5.1) Chloride Level 91 MMOL/L (98-107) L Carbon Dioxide Level 27 MMOL/L (21-32) Anion Gap 7 mmol/L (5-15) Blood Urea Nitrogen 44 mg/dL (7-18) H Creatinine 10.8 MG/DL (0.55-1.30) H Estimat Glomerular Filtration Rate 4.4 mL/min (>60) Glucose Level 92 MG/DL (74-106) Calcium Level 7.7 MG/DL (8.5-10.1) L Phosphorus Level 4.8 MG/DL (2.5-4.9) Magnesium Level 2.3 MG/DL (1.8-2.4) Total Bilirubin 0.4 MG/DL (0.2-1.0) Aspartate Amino Transf (AST/SGOT) 24 U/L (15-37) Alanine Aminotransferase (ALT/SGPT) 12 U/L (12-78) Alkaline Phosphatase 47 U/L (46-116) Total Protein 7.0 G/DL (6.4-8.2) Albumin 2.5 G/DL (3.4-5.0) L Globulin 4.5 g/dL Albumin/Globulin Ratio 0.6 (1.0-2.7) L Current Medications Medications (Trade) Dose Ordered Sig/Rochelle Route PRN Reason Start Time Stop Time Status Last Admin Dose Admin Acetaminophen (Tylenol) 650 mg Q4H PRN ORAL Mild Pain (Pain Scale 1-3) 02/14/20 09:00 03/11/20 08:59 Acetaminophen/ Hydrocodone Bitart ([place] 7.5/325) 1 tab Q6H PRN ORAL severe pain 02/14/20 09:00 02/16/20 08:59 Alprazolam (Xanax) 0.5 mg Q6H PRN ORAL For Anxiety 02/14/20 09:00 02/16/20 08:59 02/14/20 09:29 Amlodipine Besylate (Norvasc) 10 mg DAILY ORAL 02/14/20 09:00 03/11/20 08:59 Ceftriaxone Sodium 1 gm/ Dextrose 55 ml @ 110 mls/hr DAILY IVPB 02/14/20 09:00 02/19/20 14:59 02/14/20 09:28 Clonidine HCl (Catapres Tab) 0.1 mg Q4H PRN ORAL For BP above 165 systolic 02/14/20 09:00 05/09/20 08:59 Diphenhydramine HCl (Benadryl) 25 mg Q6H PRN IVP Itching 02/14/20 14:30 03/14/20 14:29 Docusate Sodium (Colace) 100 mg TID ORAL 02/14/20 09:00 03/10/20 17:59 02/14/20 09:28 Folic Acid (Folate) 2 mg DAILY ORAL 02/14/20 09:00 8/8/20 09:59 02/14/20 09:28 Hydralazine HCl (Apresoline) 50 mg Q8HR ORAL 02/14/20 14:00 05/09/20 17:59 Hydromorphone HCl (Dilaudid) 1 mg Q4H PRN IVP For Severe Pain 02/14/20 10:00 02/18/20 09:59 02/14/20 10:22 Magnesium Hydroxide (Mom) 30 ml DAILYPRN PRN ORAL Constipation 02/14/20 09:00 03/14/20 08:59 Metoprolol Tartrate (Lopressor) 50 mg Q12HR ORAL 02/14/20 09:00 05/12/20 08:59 Ondansetron HCl (Zofran) 4 mg Q6H PRN IV Nausea & Vomiting 02/14/20 14:30 03/10/20 14:29 Pantoprazole (Protonix) 40 mg BID ORAL 02/14/20 09:00 03/10/20 17:59 02/14/20 09:29 Sevelamer Carbonate (Renvela) 2,400 mg THREE TIMES A DAY ORAL 02/14/20 09:00 05/09/20 17:59 02/14/20 09:29 Vancomycin HCl ([facility] pharmacy to dose) 1 ea DAILY PRN MISC Per rx protocol 02/14/20 09:00 03/12/20 17:14 Elvis Garibay MD Feb 14, 2020 11:38"
[2020-02-14 12:00] VITALS: BP 138/75
--- NOTE | 2020-02-14 12:43 | Surgery Progress Note ---
Surgery Progress Note Subjective Additional Comments resting comfortable no n/v/f/c labs noted exam stable Objective Last 24 Hour Vital Signs Date Time Temp Pulse Resp B/P (MAP) Pulse Ox O2 Delivery O2 Flow Rate FiO2 02/14/20 12:00 97.7 72 20 138/75 (96) 96 02/14/20 09:00 Room Air 02/14/20 08:00 98.4 71 20 138/72 (94) 99 02/14/20 07:49 74 02/14/20 07:32 98.8 02/14/20 06:12 138/74 02/14/20 04:00 98.8 84 18 138/61 (86) 98 02/14/20 03:31 59 02/14/20 00:00 99.7 95 18 135/66 (89) 97 02/13/20 23:33 65 02/13/20 21:58 99.0 02/13/20 21:26 138/74 02/13/20 21:12 Room Air 02/13/20 20:12 87 137/74 02/13/20 20:00 100.2 68 18 125/68 (87) 98 02/13/20 19:04 76 02/13/20 16:33 97.6 62 17 120/61 (80) 100 02/13/20 16:00 65 02/13/20 13:13 145/75 I&O Intake and Output 02/13/20 02/14/20 19:00 07:00 Intake Total 120 ml Output Total 1 ml 1091 ml Balance -1 ml -971 ml Intake Oral 120 ml Output Emesis 1 ml 1 ml Hemodialysis UF 1000 ml Estimated Blood Loss 90 ml # Voids 3 4 # Bowel Movements 1 3 Dressing: saturated Wound: clean Drains: other Cardiovascular: RSR Respiratory: clear Abdomen: soft, non-tender, present bowel sounds Extremities: no edema, no tenderness, no cyanosis Laboratory Tests Test 02/14/20 05:57 White Blood Count 5.0 K/UL (4.8-10.8) Red Blood Count 2.41 M/UL (4.20-5.40) L Hemoglobin 7.3 G/DL (12.0-16.0) L Hematocrit 22.3 % (37.0-47.0) L Mean Corpuscular Volume 92 FL (80-99) Mean Corpuscular Hemoglobin 30.2 PG (27.0-31.0) Mean Corpuscular Hemoglobin Concent 32.7 G/DL (32.0-36.0) Red Cell Distribution Width 13.7 % (11.6-14.8) Platelet Count 128 K/UL (150-450) L Mean Platelet Volume 6.2 FL (6.5-10.1) L Neutrophils (%) (Auto) % (45.0-75.0) Lymphocytes (%) (Auto) % (20.0-45.0) Monocytes (%) (Auto) % (1.0-10.0) Eosinophils (%) (Auto) % (0.0-3.0) Basophils (%) (Auto) % (0.0-2.0) Differential Total Cells Counted 100 Neutrophils % (Manual) 76 % (45-75) H Lymphocytes % (Manual) 12 % (20-45) L Monocytes % (Manual) 8 % (1-10) Eosinophils % (Manual) 4 % (0-3) H Basophils % (Manual) 0 % (0-2) Band Neutrophils 0 % (0-8) Platelet Estimate Decreased L Platelet Morphology Normal Hypochromasia 1+ Sodium Level 125 MMOL/L (136-145) L Potassium Level 5.1 MMOL/L (3.5-5.1) Chloride Level 91 MMOL/L (98-107) L Carbon Dioxide Level 27 MMOL/L (21-32) Anion Gap 7 mmol/L (5-15) Blood Urea Nitrogen 44 mg/dL (7-18) H Creatinine 10.8 MG/DL (0.55-1.30) H Estimat Glomerular Filtration Rate 4.4 mL/min (>60) Glucose Level 92 MG/DL (74-106) Calcium Level 7.7 MG/DL (8.5-10.1) L Phosphorus Level 4.8 MG/DL (2.5-4.9) Magnesium Level 2.3 MG/DL (1.8-2.4) Total Bilirubin 0.4 MG/DL (0.2-1.0) Aspartate Amino Transf (AST/SGOT) 24 U/L (15-37) Alanine Aminotransferase (ALT/SGPT) 12 U/L (12-78) Alkaline Phosphatase 47 U/L (46-116) Total Protein 7.0 G/DL (6.4-8.2) Albumin 2.5 G/DL (3.4-5.0) L Globulin 4.5 g/dL Albumin/Globulin Ratio 0.6 (1.0-2.7) L Plan Problems: (1) Anemia (2) Bartholin's gland abscess Assessment & Plan: 69-year-old female Bartholin gland abscess cyst. Status post incision and drainage with drain placement. Drain currently in place and still draining. States that it feels better but continues to hurt. Plan for hemodialysis initiated by speech language pathologist prn. Patient has a catheter in place unlikely infected. We will continue to monitor for local abscess drainage and improvement. Will monitor drain and manage drain accordingly. Okay for warm compress as needed. Pain management Rx written. Trend labs. Antibiotics per ID. May need repeat drainage if does not improve significantly. Thank you for letting participate in patient's care will follow recommendations anemia - transfuse prbc with HD Continue with catheter drainage functional doing well Discussed care plan with the patient Plan for outpatient FOCUSER follow-up on discharge. prbc with HD prn as per renal drain oksarah KUB in AM bowel regimen - constipated (3) Hypoglycemia (4) Vulval cellulitis (5) Missed dialysis (6) ESRD (end stage renal disease) on dialysis (7) Hyperkalemia (8) Substance abuse (9) HIV disease (10) HCV antibody positive (11) Weakness (12) Epileptic seizure, generalized Deon Crowe Feb 14, 2020 12:43
[2020-02-14 16:00] VITALS: BP 141/75
[2020-02-14] MEDS: HYDROcodone/Acetamin 7.5/325 tab ORAL PRN (16:14)
--- NOTE | 2020-02-14 19:31 | NUR ---
HAND-OFF: Report given to Timo SALAZAR.
--- NOTE | 2020-02-14 19:40 | NUR ---
NURSE NOTES: Received Report from Jemima SALAZAR. The patient is alert and oriented x4 and cooperative with her care. She is on RA and is presently undergoing Dialysis and seen to be stable. The is no complain of pain or discomfort at this time.She has a LFA 20g saline log that is patent and asymptomatic. Will continue to monitor
[2020-02-14 20:00] VITALS: BP 143/82
[2020-02-15] VITALS: BP 155/97
--- NOTE | 2020-02-15 03:30 | Progress Note ---
DATE: 02/14/2020 SUBJECTIVE: The patient still has pelvic pain. No new bleeding. She remains on antimicrobials and pain therapy. She had fevers yesterday. She is on hemodialysis with ultrafiltration per usual schedule. OBJECTIVE: VITAL SIGNS: Blood pressure 138/72, pulse 71, respiratory rate 20. Monitored rhythm sinus with rare ectopics. NECK: Jugular venous pressure normal. LUNGS: Clear. CHEST: Dialysis catheter site clean and dry. ABDOMEN: Soft. No focal tenderness. CARDIAC: Regular rhythm and rate. Normal S1, S2 with a fourth heart sound. EXTREMITIES: No edema. LABORATORY AND DIAGNOSTIC DATA: White count 5, hemoglobin 7.3. Sodium 125, potassium 5.1, bicarb 27, BUN 44, creatinine 10.8, magnesium 2.3. Albumin 2.5. An x-ray of the abdomen today revealed no acute process, with some gas-filled small bowel loops. IMPRESSION: 1. Hyperkalemia, corrected. 2. End-stage renal disease with missed dialysis sessions. 3. Hypertensive heart disease. 4. Bartholin cyst, status post drainage with bleeding. 5. Anemia, multifactorial. 6. Cocaine intoxication and abuse. 7. Moderate to severe protein-calorie malnutrition. 8. Staph aureus sepsis; increased risk for endocarditis. 9. Infected Bartholin cyst. PLAN: 1. Intravenous antibiotics per Infectious Disease contamination consultant. 2. May need removal of subclavian catheter, which is present for dialysis. 3. Follow up echocardiogram to assess for endocarditis. 4. Hemodialysis with ultrafiltration. 5. Symptom-guided pain control. 6. 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 Nam Barnett M.D. DR: Xiomara JOB#: [id number] CC: AMBERLY
[2020-02-15 04:00] VITALS: BP 144/78
[2020-02-15] MEDS: HYDROcodone/Acetamin 7.5/325 tab ORAL PRN (04:01)
--- NOTE | 2020-02-15 05:02 | NUR ---
NURSE NOTES: The patient completed her dialysis last night and has been stable with Resp even and unlabored. She was easy to fall asleep and sleep the entire night. She also received her pain med and was given Dilaudid as ordered. Zofran was also given when she complained of N/V. will continue to monitor.
[2020-02-15] MEDS: HydrALAZINE 50mg tab ORAL SCH ×3 (06:03→21:02)
--- NOTE | 2020-02-15 07:25 | NUR ---
HAND-OFF: Report given to CAROL THOMPSON RN.
--- NOTE | 2020-02-15 07:26 | NUR ---
NURSE NOTES: Received patient in bed, awake, alert and oriented x4. Not in respiratory/cardiac distress. No bleeding or drainage or s/s of infection from vulva where she previously had I&D. Right upper chest perma cath is intact with dry and clean dressing. IV is intact, no s/s of infiltration. Bed is in lowest position and locked. Call light and personnel items within reach. Will continue plan of care.
[2020-02-15 08:00] VITALS: BP 138/77
--- NOTE | 2020-02-15 08:18 | General Progress Note ---
Assessment/Plan Problem List: (1) Epileptic seizure, generalized ICD Codes: G40.309 - Generalized idiopathic epilepsy and epileptic syndromes, not intractable, without status epilepticus SNOMED: 00951306 (2) Weakness ICD Codes: R53.1 - Weakness SNOMED: 01613388 (3) HIV disease ICD Codes: B20 - Human immunodeficiency virus [HIV] disease SNOMED: 87893050 (4) Substance abuse ICD Codes: F19.10 - Other psychoactive substance abuse, uncomplicated SNOMED: 59346320 (5) Bartholin's gland abscess ICD Codes: N75.1 - Abscess of Bartholin's gland SNOMED: 64023530 (6) Hypoglycemia ICD Codes: E16.2 - Hypoglycemia, unspecified SNOMED: 636071760 Status: stable Assessment/Plan: cont iv abx follow up cultures HD per renal monitor h/h transfuse as needed epo and iron replacement dvt/stress ulcer prophylaxis. d/w - he will arrange removal of HD catheter Subjective ROS Limited/Unobtainable: No Constitutional: Reports: malaise, weakness HEENT: Reports: no symptoms Cardiovascular: Reports: no symptoms Respiratory: Reports: no symptoms Gastrointestinal/Abdominal: Reports: no symptoms Genitourinary: Reports: no symptoms Neurologic/Psychiatric: Reports: anxiety Endocrine: Reports: no symptoms Hematologic/Lymphatic: Reports: anemia Allergies: Coded Allergies: ASPIRIN (Unverified Allergy, Unknown, 01/16/20) IODINE (Verified Allergy, Unknown, 01/07/20) Uncoded Allergies: CONTRAST DYE (Allergy, Unknown, 01/07/20) All Systems: reviewed and negative except above Subjective no new complaints. +pelvic pain. no reports of bleeding. no fever or chills. on iv abx and iv pain rx. ID noted. Objective Last 24 Hour Vital Signs Date Time Temp Pulse Resp B/P (MAP) Pulse Ox O2 Delivery O2 Flow Rate FiO2 02/15/20 08:00 97.0 70 18 138/77 (97) 98 02/15/20 06:03 144/78 02/15/20 04:00 97.2 68 18 144/78 (100) 97 02/15/20 00:00 98.1 79 18 155/97 (116) 98 02/14/20 22:40 143/82 02/14/20 22:39 66 143/82 02/14/20 21:00 Room Air 02/14/20 20:00 96.6 66 18 143/82 (102) 97 02/14/20 16:00 97.7 65 20 141/75 (97) 97 02/14/20 12:00 97.7 72 20 138/75 (96) 96 02/14/20 09:00 Room Air Intake and Output 02/14/20 02/15/20 19:00 07:00 Intake Total 745 ml 640 ml Output Total 2420 ml Balance 745 ml -1780 ml Intake Oral 690 ml 640 ml IV Total 55 ml Output Urine Total 420 ml Hemodialysis UF 2000 ml # Voids 1 # Bowel Movements 1 1 Laboratory Tests 02/15/20 05:45: Random Vancomycin Level 19.9 Height (Feet): 5 Height (Inches): 8.00 Weight (Pounds): 158 Objective General Appearance: WD/WN, lethargic EENT: PERRL/EOMI, normal ENT inspection Neck: non-tender, normal alignment Cardiovascular: normal peripheral pulses, normal rate, regular rhythm Respiratory/Chest: chest wall non-tender, lungs clear, normal breath sounds Abdomen: normal bowel sounds, non tender, soft, no organomegaly Extremities: normal range of motion Edema: no edema noted Arm (L), no edema noted Arm (R) Neurologic: director sales training II-XII grossly normal, no motor/sensory deficits, abnormal gait , alert, oriented x 3, responsive Michael Peralta MD Feb 15, 2020 08:18
[2020-02-15] MEDS: Metoprolol Tartrate 50mg tab ORAL SCH ×2 (08:27→21:03)
[2020-02-15] MEDS: Docusate 100mg cap ORAL SCH ×3 (08:27→17:56)
[2020-02-15] MEDS: Renvela 2400 mg pkt ORAL SCH ×3 (08:27→17:56)
[2020-02-15] MEDS: HYDROmorphone 1mg/ml Carpuject IVP PRN ×4 (08:28→22:54)
[2020-02-15] MEDS: cefTRIAXone 1 GM in D5W 55 ML IVPB SCH (08:29)
[2020-02-15 08:37] LABS: HEMATOCRIT 22.6 % (37.0-47.0); HEMOGLOBIN 7.4 G/DL (12.0-16.0); MEAN CORPUSCULAR VOLUME 93 FL (80-99); PLATELET COUNT 123 K/UL (150-450); RED BLOOD COUNT 2.44 M/UL (4.20-5.40); RED CELL DISTRIBUTION WIDTH 14.2 % (11.6-14.8); WHITE BLOOD COUNT 3.6 K/UL (4.8-10.8)
[2020-02-15] MEDS: DiphenhydrAMINE 50mg/ml Inj IVP PRN ×2 (09:16→19:32)
--- NOTE | 2020-02-15 10:10 | NUR ---
NURSE NOTES: RN clarified with Dr. Pryor about dialysis scheduled for today since patient had HD yesterday. Per Dr. Pryor, he is aware that patient had dialysis yesterday but he wants to remove dialysis cath by IR today after dialysis. HD is aware.
--- NOTE | 2020-02-15 10:28 | Nephrology Progress Note ---
Assessment/Plan Problem List: (1) ESRD (end stage renal disease) on dialysis (2) Hyperkalemia (3) Bartholin's gland abscess (4) Anemia (5) HCV antibody positive (6) HIV disease (7) Substance abuse Assessment Patient presents with hyperkalemia, anemia and 1 week of no dialysis Previous frequent chest pains. Anemia and evidence of upper GI bleed and [employer] in the past. Patient was on anticoagulation for atrial fibrillation however it is unclear how compliant the patient is. History of frequent hyperkalemia due to missing hemodialysis. End-stage renal disease on hemodialysis. The patient has a right chest permacath which is not dressed and appears to either be infected or very prone to infection. HIV disease. Substance abuse with previous urine test positive for narcotics and cocaine. History of hepatitis C virus. History of hypertensive kidney disease. Plan February 14: Patient was dialyzed yesterday. Today's labs reviewed. Discussed with PMD. The ID nissan sales consultant suggest removal of the permacath due to infection. Will arrange for dialysis today. Will remove the permacath after dialysis today. Will reinsert a dialysis catheter 48 hours later. Discussed with RN. Orders in EMR. February 13: Due for dialysis today. Hemoglobin higher after transfusion. Continue per consultants. February 12: Next dialysis tomorrow on February 13. Hemoglobin remains low patient is due for another transfusion today. Continue per current treatment plan. February 11: Patient was dialyzed yesterday. Labs reviewed. Hemoglobin low. Due for transfusion. Next dialysis February 13, unless she needs it earlier. Medications are reviewed. Metoprolol dose increased. February 10: Patient due for dialysis today February 10. No labs drawn today. Will check renal parameters tomorrow. Continue per consultants. Patient anemic, transfusion is suggested. Patient dialyzed February 08, late night, for potassium of 7.4. Will give Kayexalate for high potassium as needed Adjust blood pressure medication. Folate supplement. Due for transfusion. Per orders. Subjective ROS Limited/Unobtainable: No Constitutional: Reports: malaise, weakness Objective Objective Last 24 Hour Vital Signs Date Time Temp Pulse Resp B/P (MAP) Pulse Ox O2 Delivery O2 Flow Rate FiO2 02/15/20 09:00 Room Air 02/15/20 08:28 70 138/77 02/15/20 08:27 70 138/77 02/15/20 08:00 97.0 70 18 138/77 (97) 98 02/15/20 06:03 144/78 02/15/20 04:00 97.2 68 18 144/78 (100) 97 02/15/20 00:00 98.1 79 18 155/97 (116) 98 02/14/20 22:40 143/82 02/14/20 22:39 66 143/82 02/14/20 21:00 Room Air 02/14/20 20:00 96.6 66 18 143/82 (102) 97 02/14/20 16:00 97.7 65 20 141/75 (97) 97 02/14/20 12:00 97.7 72 20 138/75 (96) 96 Intake and Output 02/14/20 02/15/20 19:00 07:00 Intake Total 745 ml 640 ml Output Total 2420 ml Balance 745 ml -1780 ml Intake Oral 690 ml 640 ml IV Total 55 ml Output Urine Total 420 ml Hemodialysis UF 2000 ml # Voids 1 # Bowel Movements 1 1 Current Medications Medications (Trade) Dose Ordered Sig/Rochelle Route PRN Reason Start Time Stop Time Status Last Admin Dose Admin Acetaminophen (Tylenol) 650 mg Q4H PRN ORAL Mild Pain (Pain Scale 1-3) 02/14/20 09:00 03/11/20 08:59 Acetaminophen/ Hydrocodone Bitart ([place] 7.5/325) 1 tab Q6H PRN ORAL severe pain 02/14/20 09:00 02/16/20 08:59 02/15/20 04:01 Alprazolam (Xanax) 0.5 mg Q6H PRN ORAL For Anxiety 02/14/20 09:00 02/16/20 08:59 02/14/20 09:29 Amlodipine Besylate (Norvasc) 10 mg DAILY ORAL 02/14/20 09:00 03/11/20 08:59 02/15/20 08:28 Ceftriaxone Sodium 1 gm/ Dextrose 55 ml @ 110 mls/hr DAILY IVPB 02/14/20 09:00 02/19/20 14:59 02/15/20 08:29 Clonidine HCl (Catapres Tab) 0.1 mg Q4H PRN ORAL For BP above 165 systolic 02/14/20 09:00 05/09/20 08:59 Diphenhydramine HCl (Benadryl) 25 mg Q6H PRN IVP Itching 02/14/20 14:30 03/14/20 14:29 02/15/20 09:16 Docusate Sodium (Colace) 100 mg TID ORAL 02/14/20 09:00 03/10/20 17:59 02/15/20 08:27 Folic Acid (Folate) 2 mg DAILY ORAL 02/14/20 09:00 03/11/20 09:59 02/15/20 08:27 Hydralazine HCl (Apresoline) 50 mg Q8HR ORAL 02/14/20 14:00 05/09/20 17:59 02/15/20 06:03 Hydromorphone HCl (Dilaudid) 1 mg Q4H PRN IVP For Severe Pain 02/14/20 10:00 02/18/20 09:59 02/15/20 08:28 Magnesium Hydroxide (Mom) 30 ml DAILYPRN PRN ORAL Constipation 02/14/20 09:00 03/14/20 08:59 Metoprolol Tartrate (Lopressor) 50 mg Q12HR ORAL 02/14/20 09:00 05/12/20 08:59 02/15/20 08:27 Ondansetron HCl (Zofran) 4 mg Q6H PRN IV Nausea & Vomiting 02/14/20 14:30 03/10/20 14:29 02/14/20 23:55 Pantoprazole (Protonix) 40 mg BID ORAL 02/14/20 09:00 03/10/20 17:59 02/15/20 08:27 Sevelamer Carbonate (Renvela) 2,400 mg THREE TIMES A DAY ORAL 02/14/20 09:00 05/09/20 17:59 02/15/20 08:27 Vancomycin HCl (Vanco pharmacy to dose) 1 ea DAILY PRN MISC Per rx protocol 02/14/20 09:00 03/12/20 17:14 Laboratory Tests 02/15/20 05:45: White Blood Count 3.6L, Red Blood Count 2.44L, Hemoglobin 7.4L, Hematocrit 22.6L , Mean Corpuscular Volume 93, Mean Corpuscular Hemoglobin 30.4, Mean Corpuscular Hemoglobin Concent 32.9, Red Cell Distribution Width 14.2, Platelet Count 123L, Mean Platelet Volume 6.1L, Neutrophils (%) (Auto) , Lymphocytes (%) (Auto) , Monocytes (%) (Auto) , Eosinophils (%) (Auto) , Basophils (%) (Auto) , Differential Total Cells Counted 100, Neutrophils % (Manual) 68, Lymphocytes % ( Manual) 16L, Monocytes % (Manual) 11H, Eosinophils % (Manual) 5H, Basophils % ( Manual) 0, Band Neutrophils 0, Platelet Estimate DecreasedL, Platelet Morphology Normal, Hypochromasia 3+, Anisocytosis 1+, Random Vancomycin Level 19.9 Height (Feet): 5 Height (Inches): 8.00 Weight (Pounds): 158 General Appearance: no apparent distress, lethargic Cardiovascular: tachycardia, other - Right chest permacath Respiratory/Chest: decreased breath sounds Abdomen: soft Objective No change Jack Pryor MD Feb 15, 2020 10:28
--- NOTE | 2020-02-15 10:40 | NUR ---
NURSE NOTES: RN contacted Dr. Pryor and informed that IR is only available Friday,Friday and Friday. Dr. Pryor is aware and wants RN to call him after HD for HD cath removal. HD is in progress now.
--- NOTE | 2020-02-15 11:29 | Infectious Diseases Prog Note ---
"Assessment/Plan Assessment/Plan antibiotics : vancomycin iv, ceftriaxone A 1. staph aureus sepsis 2. bartholins cyst infection with proteus | enterococcus s/p drainage 3. Hypertension. 4. HIV. 5. Hepatitis C. 6. Renal failure. PLAN: 1. Continue IV vancomycin. 2. continue ceftriaxone 2 more days 3. removal of the subclavian catheter planned 4. 2D echocardiogram pending 5. We will follow up cultures Subjective Constitutional: Denies: fever, chills Respiratory: Denies: shortness of breath, dry cough Gastrointestinal/Abdominal: Reports: nausea; Denies: vomiting, diarrhea Musculoskeletal: Reports: pain - decreased Allergies: Coded Allergies: ASPIRIN (Unverified Allergy, Unknown, 01/16/20) IODINE (Verified Allergy, Unknown, 01/07/20) Uncoded Allergies: CONTRAST DYE (Allergy, Unknown, 01/07/20) Objective Last 24 Hour Vital Signs Date Time Temp Pulse Resp B/P (MAP) Pulse Ox O2 Delivery O2 Flow Rate FiO2 02/15/20 09:00 Room Air 02/15/20 08:28 70 138/77 02/15/20 08:27 70 138/77 02/15/20 08:00 97.0 70 18 138/77 (97) 98 02/15/20 06:03 144/78 02/15/20 04:00 97.2 68 18 144/78 (100) 97 02/15/20 00:00 98.1 79 18 155/97 (116) 98 02/14/20 22:40 143/82 02/14/20 22:39 66 143/82 02/14/20 21:00 Room Air 02/14/20 20:00 96.6 66 18 143/82 (102) 97 02/14/20 16:00 97.7 65 20 141/75 (97) 97 02/14/20 12:00 97.7 72 20 138/75 (96) 96 Height (Feet): 5 Height (Inches): 8.00 Weight (Pounds): 158 Respiratory/Chest: lungs clear Cardiovascular: normal rate, regular rhythm, no gallop/murmur Abdomen: soft, non tender Extremities: no edema, other - right subclavian Laboratory Tests Test 02/15/20 05:45 White Blood Count 3.6 K/UL (4.8-10.8) L Red Blood Count 2.44 M/UL (4.20-5.40) L Hemoglobin 7.4 G/DL (12.0-16.0) L Hematocrit 22.6 % (37.0-47.0) L Mean Corpuscular Volume 93 FL (80-99) Mean Corpuscular Hemoglobin 30.4 PG (27.0-31.0) Mean Corpuscular Hemoglobin Concent 32.9 G/DL (32.0-36.0) Red Cell Distribution Width 14.2 % (11.6-14.8) Platelet Count 123 K/UL (150-450) L Mean Platelet Volume 6.1 FL (6.5-10.1) L Neutrophils (%) (Auto) % (45.0-75.0) Lymphocytes (%) (Auto) % (20.0-45.0) Monocytes (%) (Auto) % (1.0-10.0) Eosinophils (%) (Auto) % (0.0-3.0) Basophils (%) (Auto) % (0.0-2.0) Differential Total Cells Counted 100 Neutrophils % (Manual) 68 % (45-75) Lymphocytes % (Manual) 16 % (20-45) L Monocytes % (Manual) 11 % (1-10) H Eosinophils % (Manual) 5 % (0-3) H Basophils % (Manual) 0 % (0-2) Band Neutrophils 0 % (0-8) Platelet Estimate Decreased L Platelet Morphology Normal Hypochromasia 3+ Anisocytosis 1+ Random Vancomycin Level 19.9 ug/mL Current Medications Medications (Trade) Dose Ordered Sig/Rochelle Route PRN Reason Start Time Stop Time Status Last Admin Dose Admin Acetaminophen (Tylenol) 650 mg Q4H PRN ORAL Mild Pain (Pain Scale 1-3) 02/14/20 09:00 03/11/20 08:59 Acetaminophen/ Hydrocodone Bitart ([place] 7.5/325) 1 tab Q6H PRN ORAL severe pain 02/14/20 09:00 02/16/20 08:59 02/15/20 04:01 Alprazolam (Xanax) 0.5 mg Q6H PRN ORAL For Anxiety 02/14/20 09:00 02/16/20 08:59 02/14/20 09:29 Amlodipine Besylate (Norvasc) 10 mg DAILY ORAL 02/14/20 09:00 03/11/20 08:59 02/15/20 08:28 Ceftriaxone Sodium 1 gm/ Dextrose 55 ml @ 110 mls/hr DAILY IVPB 02/14/20 09:00 02/19/20 14:59 02/15/20 08:29 Clonidine HCl (Catapres Tab) 0.1 mg Q4H PRN ORAL For BP above 165 systolic 02/14/20 09:00 05/09/20 08:59 Diphenhydramine HCl (Benadryl) 25 mg Q6H PRN IVP Itching 02/14/20 14:30 03/14/20 14:29 02/15/20 09:16 Docusate Sodium (Colace) 100 mg TID ORAL 02/14/20 09:00 03/10/20 17:59 02/15/20 08:27 Folic Acid (Folate) 2 mg DAILY ORAL 02/14/20 09:00 03/11/20 09:59 02/15/20 08:27 Hydralazine HCl (Apresoline) 50 mg Q8HR ORAL 02/14/20 14:00 05/09/20 17:59 02/15/20 06:03 Hydromorphone HCl (Dilaudid) 1 mg Q4H PRN IVP For Severe Pain 02/14/20 10:00 02/18/20 09:59 02/15/20 08:28 Magnesium Hydroxide (Mom) 30 ml DAILYPRN PRN ORAL Constipation 02/14/20 09:00 03/14/20 08:59 Metoprolol Tartrate (Lopressor) 50 mg Q12HR ORAL 02/14/20 09:00 05/12/20 08:59 02/15/20 08:27 Ondansetron HCl (Zofran) 4 mg Q6H PRN IV Nausea & Vomiting 02/14/20 14:30 03/10/20 14:29 02/14/20 23:55 Pantoprazole (Protonix) 40 mg BID ORAL 02/14/20 09:00 03/10/20 17:59 02/15/20 08:27 Sevelamer Carbonate (Renvela) 2,400 mg THREE TIMES A DAY ORAL 02/14/20 09:00 05/09/20 17:59 02/15/20 08:27 Vancomycin HCl (Vanco pharmacy to dose) 1 ea DAILY PRN MISC Per rx protocol 02/14/20 09:00 03/12/20 17:14 Elvis Garibay MD Feb 15, 2020 11:29"
[2020-02-15 12:00] VITALS: BP 147/78
--- NOTE | 2020-02-15 13:00 | NUR ---
NURSE NOTES: dialysis is done, 2L was out per dialysis nurse Jose.
--- NOTE | 2020-02-15 13:17 | Surgery Progress Note ---
Surgery Progress Note Subjective Additional Comments No acute events. Doing well. Receiving hemodialysis. States that she is unsure if drain is in place when evaluated noted drain had fallen out as anticipated. No nausea vomiting fever chills. Objective Last 24 Hour Vital Signs Date Time Temp Pulse Resp B/P (MAP) Pulse Ox O2 Delivery O2 Flow Rate FiO2 02/15/20 09:00 Room Air 02/15/20 08:28 70 138/77 02/15/20 08:27 70 138/77 02/15/20 08:00 97.0 70 18 138/77 (97) 98 02/15/20 06:03 144/78 02/15/20 04:00 97.2 68 18 144/78 (100) 97 02/15/20 00:00 98.1 79 18 155/97 (116) 98 02/14/20 22:40 143/82 02/14/20 22:39 66 143/82 02/14/20 21:00 Room Air 02/14/20 20:00 96.6 66 18 143/82 (102) 97 02/14/20 16:00 97.7 65 20 141/75 (97) 97 I&O Intake and Output 02/14/20 02/15/20 19:00 07:00 Intake Total 745 ml 640 ml Output Total 2420 ml Balance 745 ml -1780 ml Intake Oral 690 ml 640 ml IV Total 55 ml Output Urine Total 420 ml Hemodialysis UF 2000 ml # Voids 1 # Bowel Movements 1 1 Dressing: dry Wound: clean Cardiovascular: RSR Respiratory: clear Abdomen: soft, non-tender, present bowel sounds Extremities: no edema, no tenderness, no cyanosis Laboratory Tests Test 02/15/20 05:45 White Blood Count 3.6 K/UL (4.8-10.8) L Red Blood Count 2.44 M/UL (4.20-5.40) L Hemoglobin 7.4 G/DL (12.0-16.0) L Hematocrit 22.6 % (37.0-47.0) L Mean Corpuscular Volume 93 FL (80-99) Mean Corpuscular Hemoglobin 30.4 PG (27.0-31.0) Mean Corpuscular Hemoglobin Concent 32.9 G/DL (32.0-36.0) Red Cell Distribution Width 14.2 % (11.6-14.8) Platelet Count 123 K/UL (150-450) L Mean Platelet Volume 6.1 FL (6.5-10.1) L Neutrophils (%) (Auto) % (45.0-75.0) Lymphocytes (%) (Auto) % (20.0-45.0) Monocytes (%) (Auto) % (1.0-10.0) Eosinophils (%) (Auto) % (0.0-3.0) Basophils (%) (Auto) % (0.0-2.0) Differential Total Cells Counted 100 Neutrophils % (Manual) 68 % (45-75) Lymphocytes % (Manual) 16 % (20-45) L Monocytes % (Manual) 11 % (1-10) H Eosinophils % (Manual) 5 % (0-3) H Basophils % (Manual) 0 % (0-2) Band Neutrophils 0 % (0-8) Platelet Estimate Decreased L Platelet Morphology Normal Hypochromasia 3+ Anisocytosis 1+ Random Vancomycin Level 19.9 ug/mL Plan Problems: (1) Anemia (2) Bartholin's gland abscess Assessment & Plan: 69-year-old female Bartholin gland abscess cyst. Status post incision and drainage with drain placement. Drain currently in place and still draining. States that it feels better but continues to hurt. Plan for hemodialysis initiated by linter drier operator. Patient has a catheter in place unlikely infected. We will continue to monitor for local abscess drainage and improvement. Will monitor drain and manage drain accordingly. Okay for warm compress as needed. Pain management Rx written. Trend labs. Antibiotics per ID. May need repeat drainage if does not improve significantly. Thank you for letting participate in patient's care will follow recommendations anemia - transfuse prbc with HD Continue with catheter drainage functional doing well Discussed care plan with the patient Plan for outpatient MOLD CHECKER follow-up on discharge. prbc with HD prn as per renal drain okay KUB in AM bowel regimen - constipated Drain has fallen out. Cellulitis is improved. Nontender no draining okay for drain to be out. Outpatient follow-up plan. (3) Hypoglycemia (4) Vulval cellulitis (5) Missed dialysis (6) ESRD (end stage renal disease) on dialysis (7) Hyperkalemia (8) Substance abuse (9) HIV disease (10) HCV antibody positive (11) Weakness (12) Epileptic seizure, generalized Deon Crowe Feb 15, 2020 13:17
--- NOTE | 2020-02-15 14:45 | NUR ---
NURSE NOTES: dialysis cath was removed by and pressure dressing was applied on catheter removal site. Will continue to monitor for bleeding.
--- NOTE | 2020-02-15 14:46 | Operative Note - PDOC ---
Operative Note Operative Note Date of Operation/Procedure: Feb 15, 2020 Pre-op Diagnosis: infected right tunneled chest wall hemodialysis catheter Procedure: removal of infected right chest wall tunneled hemodialysis catheter Post-op Diagnosis: same as pre-op Surgeon: lori crowe md Specimen: yes Complications: none Condition: stable Estimated Blood Loss: none Drains: none Implant(s) used?: No Indications for Procedure 69-year-old female persistent fevers who has a right chest wall tunneled temporal hemodialysis catheter which she is had for over 2 years believed by medical team mill operator to be likely etiology of infection and fevers therefore surgery asked to remove catheter and culture. Risk-benefit ulcer discussed patient at the bedside. Consent obtained. Description of Procedure Patient was made comfortable the bedside in the supine position. The prior dressings removed and the site clean. [place] identified and with gentle manipulation and probing felt was released. Catheter was removed tip was sent for culture. Patient taught procedure well. Site was evaluated for hemostasis and pressure held for approximately 10 minutes until hemostasis noted. Care instructions discussed with patient and nurse. Will monitor site. Thank you Lori Crowe Feb 15, 2020 14:46
[2020-02-15] MEDS: ALPRAZolam 0.5mg tab ORAL PRN (15:23)
--- NOTE | 2020-02-15 15:34 | NUR ---
NURSE NOTES: No bleeding from perma cath removal site. Patient took dilaudid 1mg IV @14:04pm but asking for another pain medication. RN offered norco but patient refused but additional IV pain meds. RN spoke to Dr. Barnett and he denied to increase pain medication. RN administered xanax. Will continue to monitor.
--- NOTE | 2020-02-15 15:41 | NUR ---
CASE MANAGEMENT: REVIEW SI: INFECTED RIGHT TUNNELED CHEST WALL HD CATH REMOVAL OF INFECTED RIGHT CHEST WALL TUNNELED HD CATH T 97.2 HR 68 RR 18 BP 144/78 SAT 97% ROOM AIR WBC 3.6 H/H 7.4/22.6 IS: CEFTRIAXONE IV QD LOPRESSOR PO Q12HR HYDRALAZINE PO Q8HR PROTONIX PO BID MED/SURG STATUS DCP: PATIENT IS FROM HOME
--- NOTE | 2020-02-15 15:56 | NUR ---
NURSE NOTES:WOUND CARE NOTES:Pt presented with Partial thickness Pressure injuries Sacrum and lower L Buttocks. Sacral Pressure injury resolving(L)1.5cm x (W)1cm. Gage epithelial at base of wound. Edges adherent to base of wound. No additional skin breakdown periwound. Resolving Partial thickness Pressure injury lower L buttocks (L)0.4cm x (W)0.7cm. Gage epithelial at base of wound with surrounding hyperpigmentation. No additional skin breakdown noted. Scattered areas of hyperpigmentation, scratch hercules noted to R and L gluteal cheeks. Skin is also very dry. Both heels are dry and callused. No other skin concerns noted. Pt was educated on wound prevention. Encouraged to frequently or at least hourly reposition self in bed and to avoid sliding against bed-linen. Encouraged to float heels off mattress . Tx.plan:Apply Moisture Barrier Paste to sacrum and L buttocks. Cover sacrum with Optifoam drsg. Change every 3 days and prn. Apply Phytoplex Skin Nourishing lotion for Skin Dryness Daily and as needed. Apply Cavilon Skin Barrier to both heels. Cover each Heel with Optifoam drsg. Change every 7 days and prn. Reposition at least every 2 hours or as tolerated. Off-load heels with pillow.
[2020-02-15 16:00] VITALS: BP 155/65
--- NOTE | 2020-02-15 18:00 | NUR ---
NURSE NOTES: Patient had large amount of BM. Provided proper perineal care done.Dressing on sacral is intact.
--- NOTE | 2020-02-15 19:15 | NUR ---
NURSE NOTES: Patient awake in bed, complained of generalized itching, will medicate as ordered. Instructed to use call light for assistance. Bed in lowest, lock engaged and alarm on. Will continue to monitor.
--- NOTE | 2020-02-15 19:19 | NUR ---
HAND-OFF: Report given to Ap SALAZAR and endorsed plan of care.
[2020-02-15 20:00] VITALS: BP 155/75
--- NOTE | 2020-02-15 20:45 | NUR ---
NURSE NOTES: Patient complained of sharp pain on the left foot and asking pain medicine. Will medicate as ordered.
--- NOTE | 2020-02-15 21:00 | NUR ---
NURSE NOTES: Explained patient that pain medicine's next dose can be given 1 more hour per last time given on emar. Patient seems calm and didn't complain of pain at this time.
--- NOTE | 2020-02-15 22:59 | Progress Note ---
DATE: 02/15/2020 SUBJECTIVE: Patient has defervesced. Blood pressure parameters are overall stable and high normal range. She continues to have back, chest, and abdomen pain. She has been bacteremic. PHYSICAL EXAMINATION: VITAL SIGNS: Blood pressure 155/75, heart rate 61, respirations 19, temperature 99.3. LUNGS: Bilateral breath sounds. Chest wall catheter site clean and dry with atrial catheter removed. ABDOMEN: Soft. CARDIAC: Regular. No new murmur. EXTREMITIES: No edema. Echocardiogram pending. IMPRESSION: 1. Sepsis, probably line related infection from dialysis catheter that is 2 years old. Increased risk for endocarditis as well. 2. End-stage renal disease. 3. Anemia, status post drainage of infected Bartholin cyst. 4. Hypertensive heart disease. 5. Acute on chronic diastolic congestive heart failure. PLAN: 1. Antimicrobials. 2. New dialysis access to follow. 3. Titrate antihypertensives. 4. Monitor hemoglobin. 5. Iron replacement. 6. Transfuse for hemoglobin less than 7 g. 7. Epogen therapy. 8. Check 2D Echo. Nam Barnett M.D. DR: MELVIN JOB#: [id number] CC: AMBERLY
[2020-02-16] VITALS: BP 148/69
[2020-02-16] MEDS: ALPRAZolam 0.5mg tab ORAL PRN (01:50)
[2020-02-16] MEDS: HYDROmorphone 1mg/ml Carpuject IVP PRN ×6 (02:45→23:45)
[2020-02-16 04:00] VITALS: BP 153/77
[2020-02-16] MEDS: HydrALAZINE 50mg tab ORAL SCH ×3 (05:10→21:32)
[2020-02-16] MEDS: DiphenhydrAMINE 50mg/ml Inj IVP PRN ×3 (05:16→17:58)
[2020-02-16 05:55] LABS: HEMATOCRIT 22.1 % (37.0-47.0); HEMOGLOBIN 7.1 G/DL (12.0-16.0); MEAN CORPUSCULAR VOLUME 94 FL (80-99); PLATELET COUNT 130 K/UL (150-450); RED BLOOD COUNT 2.35 M/UL (4.20-5.40); RED CELL DISTRIBUTION WIDTH 13.7 % (11.6-14.8); WHITE BLOOD COUNT 3.7 K/UL (4.8-10.8)
[2020-02-16 06:32] LABS: ALANINE AMINOTRANSFERASE 11 U/L (12-78); ALBUMIN 2.7 G/DL (3.4-5.0); ALBUMIN/GLOBULIN RATIO 0.6 (1.0-2.7); ALKALINE PHOSPHATASE 54 U/L (46-116); ANION GAP 6 mmol/L (5-15); ASPARTATE AMINO TRANSFERASE 26 U/L (15-37); BILIRUBIN,TOTAL 0.2 MG/DL (0.2-1.0); BLOOD UREA NITROGEN 30 mg/dL (7-18); CALCIUM 7.5 MG/DL (8.5-10.1); CARBON DIOXIDE 32 MMOL/L (21-32); CHLORIDE 94 MMOL/L (98-107); CREATININE 7.5 MG/DL (0.55-1.30); PHOSPHORUS 4.2 MG/DL (2.5-4.9); POTASSIUM 4.5 MMOL/L (3.5-5.1); SODIUM 132 MMOL/L (136-145)
--- NOTE | 2020-02-16 07:26 | NUR ---
HAND-OFF: Report given to MARTIN Barajas.
--- NOTE | 2020-02-16 07:28 | General Progress Note ---
Assessment/Plan Problem List: (1) Epileptic seizure, generalized ICD Codes: G40.309 - Generalized idiopathic epilepsy and epileptic syndromes, not intractable, without status epilepticus SNOMED: 81009472 (2) Weakness ICD Codes: R53.1 - Weakness SNOMED: 96358271 (3) HIV disease ICD Codes: B20 - Human immunodeficiency virus [HIV] disease SNOMED: 76760870 (4) Substance abuse ICD Codes: F19.10 - Other psychoactive substance abuse, uncomplicated SNOMED: 38924033 (5) Bartholin's gland abscess ICD Codes: N75.1 - Abscess of Bartholin's gland SNOMED: 71637512 (6) Hypoglycemia ICD Codes: E16.2 - Hypoglycemia, unspecified SNOMED: 579911168 Status: stable Assessment/Plan: cont iv abx follow up cultures HD per renal monitor h/h transfuse as needed epo and iron replacement dvt/stress ulcer prophylaxis. replace HD catheter prior to next HD Subjective ROS Limited/Unobtainable: No Constitutional: Reports: malaise, weakness HEENT: Reports: no symptoms Cardiovascular: Reports: no symptoms Respiratory: Reports: no symptoms Gastrointestinal/Abdominal: Reports: no symptoms Genitourinary: Reports: no symptoms Neurologic/Psychiatric: Reports: no symptoms Endocrine: Reports: no symptoms Hematologic/Lymphatic: Reports: no symptoms Allergies: Coded Allergies: ASPIRIN (Unverified Allergy, Unknown, 01/16/20) IODINE (Verified Allergy, Unknown, 01/07/20) Uncoded Allergies: CONTRAST DYE (Allergy, Unknown, 01/07/20) All Systems: reviewed and negative except above Subjective no new complaints. +pelvic pain. no reports of bleeding. no fever or chills. on iv abx and iv pain rx. ID noted. perm cath dcd, low h/h Objective Last 24 Hour Vital Signs Date Time Temp Pulse Resp B/P (MAP) Pulse Ox O2 Delivery O2 Flow Rate FiO2 02/16/20 05:10 153/77 02/16/20 04:00 97.3 59 19 153/77 (102) 96 02/16/20 00:00 97.9 58 20 148/69 (95) 98 02/15/20 21:03 63 151/73 02/15/20 21:02 151/73 02/15/20 21:00 Room Air 02/15/20 20:00 99.3 61 19 155/75 (101) 97 02/15/20 16:00 97.2 58 18 155/65 (95) 98 02/15/20 14:00 138/77 02/15/20 12:00 98.3 78 18 147/78 (101) 98 02/15/20 09:00 Room Air 02/15/20 08:28 70 138/77 02/15/20 08:27 70 138/77 02/15/20 08:00 97.0 70 18 138/77 (97) 98 Intake and Output 02/15/20 02/16/20 19:00 07:00 Intake Total 1120 ml Output Total 2000 ml Balance -880 ml Intake Oral 1120 ml Hemodialysis UF 2000 ml # Voids 8 # Bowel Movements 1 Laboratory Tests 02/16/20 05:05: White Blood Count 3.7L, Red Blood Count 2.35L, Hemoglobin 7.1L, Hematocrit 22.1L , Mean Corpuscular Volume 94, Mean Corpuscular Hemoglobin 30.0, Mean Corpuscular Hemoglobin Concent 31.9L, Red Cell Distribution Width 13.7, Platelet Count 130L, Mean Platelet Volume 6.5, Neutrophils (%) (Auto) , Lymphocytes (%) (Auto) , Monocytes (%) (Auto) , Eosinophils (%) (Auto) , Basophils (%) (Auto) , Sodium Level 132L, Potassium Level 4.5, Chloride Level 94L, Carbon Dioxide Level 32, Anion Gap 6, Blood Urea Nitrogen 30H, Creatinine 7.5H, Estimat Glomerular Filtration Rate 6.5, Glucose Level 100, Calcium Level 7.5L, Phosphorus Level 4.2, Magnesium Level 2.3, Total Bilirubin 0.2, Aspartate Amino Transf (AST/SGOT) 26, Alanine Aminotransferase (ALT/SGPT) 11L, Alkaline Phosphatase 54, C-Reactive Protein, Quantitative < 0.4, Pro-B-Type Natriuretic Peptide 72812Y, Total Protein 7.4, Albumin 2.7L, Globulin 4.7, Albumin/Globulin Ratio 0.6L, Random Vancomycin Level 16.1 Height (Feet): 5 Height (Inches): 8.00 Weight (Pounds): 172 Objective General Appearance: WD/WN, lethargic EENT: PERRL/EOMI, normal ENT inspection Neck: non-tender, normal alignment Cardiovascular: normal peripheral pulses, normal rate, regular rhythm Respiratory/Chest: chest wall non-tender, lungs clear, normal breath sounds Abdomen: normal bowel sounds, non tender, soft, no organomegaly Extremities: normal range of motion Edema: no edema noted Arm (L), no edema noted Arm (R) 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
--- NOTE | 2020-02-16 07:35 | NUR ---
Report received from MARTIN De Souza. Pt awake in bed, alert and oriented x 4, verbal and able to make needs known, no SOB, bed in lowest position with breaks engaged and alarm on, IV line on left forearm patent and intact, on room air, denies any pain or discomfort at this time, will continue to monitor and proceed with plan of care, call light within reach.
[2020-02-16 08:00] VITALS: BP 157/96
[2020-02-16] MEDS: Docusate 100mg cap ORAL SCH ×3 (09:01→17:58)
[2020-02-16] MEDS: cefTRIAXone 1 GM in D5W 55 ML IVPB SCH (09:01)
[2020-02-16] MEDS: Metoprolol Tartrate 50mg tab ORAL SCH ×2 (09:02→21:31)
[2020-02-16] MEDS: Renvela 2400 mg pkt ORAL SCH ×3 (09:02→17:58)
--- NOTE | 2020-02-16 09:19 | NUR ---
NURSE NOTES: RN received order from Dr. Pryor for dialysis catheter placement on Friday on 02/18/20.
--- NOTE | 2020-02-16 10:47 | Infectious Diseases Prog Note ---
"Assessment/Plan Assessment/Plan antibiotics : vancomycin iv, ceftriaxone A 1. staph aureus sepsis s/p catheter removal 2. bartholins cyst infection with proteus | enterococcus s/p drainage 3. Hypertension. 4. HIV. 5. Hepatitis C. 6. Renal failure. 7. COVID 19 negative PLAN: 1. Continue IV vancomycin 8 more days 2. continue ceftriaxone 1 more day 3. We will follow up cultures Subjective Constitutional: Denies: fever, chills Respiratory: Denies: shortness of breath, dry cough Gastrointestinal/Abdominal: Denies: nausea, vomiting, diarrhea Musculoskeletal: Reports: pain Allergies: Coded Allergies: ASPIRIN (Unverified Allergy, Unknown, 01/16/20) IODINE (Verified Allergy, Unknown, 01/07/20) Uncoded Allergies: CONTRAST DYE (Allergy, Unknown, 01/07/20) Objective Last 24 Hour Vital Signs Date Time Temp Pulse Resp B/P (MAP) Pulse Ox O2 Delivery O2 Flow Rate FiO2 02/16/20 09:02 62 157/96 02/16/20 09:02 62 157/96 02/16/20 09:00 Room Air 02/16/20 08:00 97.6 62 18 157/96 (116) 98 02/16/20 05:10 153/77 02/16/20 04:00 97.3 59 19 153/77 (102) 96 02/16/20 00:00 97.9 58 20 148/69 (95) 98 02/15/20 21:03 63 151/73 02/15/20 21:02 151/73 02/15/20 21:00 Room Air 02/15/20 20:00 99.3 61 19 155/75 (101) 97 02/15/20 16:00 97.2 58 18 155/65 (95) 98 02/15/20 14:00 138/77 02/15/20 12:00 98.3 78 18 147/78 (101) 98 Height (Feet): 5 Height (Inches): 8.00 Weight (Pounds): 172 Respiratory/Chest: lungs clear Cardiovascular: normal rate, regular rhythm, no gallop/murmur Abdomen: soft, non tender Extremities: no edema Microbiology Date/Time Source Procedure Growth Status 02/15/20 14:40 Catheter Site Catheter Tip Culture - Preliminary NO GROWTH Resulted Laboratory Tests Test 02/16/20 05:05 White Blood Count 3.7 K/UL (4.8-10.8) L Red Blood Count 2.35 M/UL (4.20-5.40) L Hemoglobin 7.1 G/DL (12.0-16.0) L Hematocrit 22.1 % (37.0-47.0) L Mean Corpuscular Volume 94 FL (80-99) Mean Corpuscular Hemoglobin 30.0 PG (27.0-31.0) Mean Corpuscular Hemoglobin Concent 31.9 G/DL (32.0-36.0) L Red Cell Distribution Width 13.7 % (11.6-14.8) Platelet Count 130 K/UL (150-450) L Mean Platelet Volume 6.5 FL (6.5-10.1) Neutrophils (%) (Auto) % (45.0-75.0) Lymphocytes (%) (Auto) % (20.0-45.0) Monocytes (%) (Auto) % (1.0-10.0) Eosinophils (%) (Auto) % (0.0-3.0) Basophils (%) (Auto) % (0.0-2.0) Sodium Level 132 MMOL/L (136-145) L Potassium Level 4.5 MMOL/L (3.5-5.1) Chloride Level 94 MMOL/L (98-107) L Carbon Dioxide Level 32 MMOL/L (21-32) Anion Gap 6 mmol/L (5-15) Blood Urea Nitrogen 30 mg/dL (7-18) H Creatinine 7.5 MG/DL (0.55-1.30) H Estimat Glomerular Filtration Rate 6.5 mL/min (>60) Glucose Level 100 MG/DL (74-106) Calcium Level 7.5 MG/DL (8.5-10.1) L Phosphorus Level 4.2 MG/DL (2.5-4.9) Magnesium Level 2.3 MG/DL (1.8-2.4) Total Bilirubin 0.2 MG/DL (0.2-1.0) Aspartate Amino Transf (AST/SGOT) 26 U/L (15-37) Alanine Aminotransferase (ALT/SGPT) 11 U/L (12-78) L Alkaline Phosphatase 54 U/L (46-116) C-Reactive Protein, Quantitative < 0.4 mg/dL (0.00-0.90) Pro-B-Type Natriuretic Peptide 07814 pg/mL (0-125) H Total Protein 7.4 G/DL (6.4-8.2) Albumin 2.7 G/DL (3.4-5.0) L Globulin 4.7 g/dL Albumin/Globulin Ratio 0.6 (1.0-2.7) L Random Vancomycin Level 16.1 ug/mL Current Medications Medications (Trade) Dose Ordered Sig/Rochelle Route PRN Reason Start Time Stop Time Status Last Admin Dose Admin Acetaminophen (Tylenol) 650 mg Q4H PRN ORAL Mild Pain (Pain Scale 1-3) 02/14/20 09:00 03/11/20 08:59 Amlodipine Besylate (Norvasc) 10 mg DAILY ORAL 02/14/20 09:00 03/11/20 08:59 02/16/20 09:02 Ceftriaxone Sodium 1 gm/ Dextrose 55 ml @ 110 mls/hr DAILY IVPB 02/14/20 09:00 02/19/20 14:59 02/16/20 09:01 Clonidine HCl (Catapres Tab) 0.1 mg Q4H PRN ORAL For BP above 165 systolic 02/14/20 09:00 05/09/20 08:59 Diphenhydramine HCl (Benadryl) 25 mg Q6H PRN IVP Itching 02/14/20 14:30 03/14/20 14:29 02/16/20 05:16 Docusate Sodium (Colace) 100 mg TID ORAL 02/14/20 09:00 03/10/20 17:59 02/16/20 09:01 Epoetin Jose (Epoetin Jose(ESRD on dialysis)) 2,000 unit -FRI SUBQ 02/16/20 21:00 05/16/20 20:59 Epoetin Jose (Epoetin Jose(ESRD on dialysis)) 3,000 unit -FRI SUBQ 02/16/20 21:00 05/16/20 20:59 Folic Acid (Folate) 2 mg DAILY ORAL 02/14/20 09:00 03/11/20 09:59 02/16/20 09:01 Hydralazine HCl (Apresoline) 50 mg Q8HR ORAL 02/14/20 14:00 05/09/20 17:59 02/16/20 05:10 Hydromorphone HCl (Dilaudid) 1 mg Q4H PRN IVP For Severe Pain 02/14/20 10:00 02/18/20 09:59 02/16/20 06:46 Iron Sucrose 100 mg/Sodium Chloride 60 ml @ 240 mls/hr BEDTIME IV 02/16/20 21:00 02/20/20 21:14 Magnesium Hydroxide (Mom) 30 ml DAILYPRN PRN ORAL Constipation 02/14/20 09:00 03/14/20 08:59 Metoprolol Tartrate (Lopressor) 50 mg Q12HR ORAL 02/14/20 09:00 05/12/20 08:59 02/16/20 09:02 Ondansetron HCl (Zofran) 4 mg Q6H PRN IV Nausea & Vomiting 02/14/20 14:30 03/10/20 14:29 02/14/20 23:55 Pantoprazole (Protonix) 40 mg BID ORAL 02/14/20 09:00 03/10/20 17:59 02/16/20 09:02 Sevelamer Carbonate (Renvela) 2,400 mg THREE TIMES A DAY ORAL 02/14/20 09:00 05/09/20 17:59 02/16/20 09:02 Vancomycin HCl (Vanco pharmacy to dose) 1 ea DAILY PRN MISC Per rx protocol 02/14/20 09:00 03/12/20 17:14 Vancomycin HCl 500 mg/Dextrose 110 ml @ 110 mls/hr ONCE IVPB 02/16/20 12:00 02/16/20 14:00 Elvis Garibay MD Feb 16, 2020 10:47"
--- NOTE | 2020-02-16 11:18 | NUR ---
CASE MANAGEMENT:REVIEW SI;INFECTED RIGHT TUNNELED CHEST WALL HD CATH REMOVAL OF INFECTED RIGHT CHEST WALL TUNNELED HD CATH. STAPH AUREUS SEPSIS. 97.9 58 20 157/96 96% ON RA H/H 7.1/22.1 WBC 3.7 RBC 2.35 PLT 130 NA 132 CA 7.5 PRO BNP [id number] ALB 2.7 IS;IRON SUCROSE IV VANCOMYCIN IV ZOFRAN IV ROCEPHIN IV CLONIDINE PO DILAUDID IV HYDRALAZINE PO TID MED SURG STATUS DCP;PATIENT IS FROM HOME PLAN; HD CATH PLACEMENT ON 02/18/20 CONTINUE IV ABX TRANSFUSE PRN FOR HGB <7
[2020-02-16 12:00] VITALS: BP 144/75
[2020-02-16] MEDS ORDERED: Vancomycin 500mg/D5W 100ml IVPB SCH ×2 (12:00)
--- NOTE | 2020-02-16 13:19 | Nephrology Progress Note ---
Assessment/Plan Problem List: (1) ESRD (end stage renal disease) on dialysis (2) Hyperkalemia (3) Bartholin's gland abscess (4) Anemia (5) HCV antibody positive (6) HIV disease (7) Substance abuse Assessment Patient presents with hyperkalemia, anemia and 1 week of no dialysis Previous frequent chest pains. Anemia and evidence of upper GI bleed and [employer] in the past. Patient was on anticoagulation for atrial fibrillation however it is unclear how compliant the patient is. History of frequent hyperkalemia due to missing hemodialysis. End-stage renal disease on hemodialysis. The patient has a right chest permacath which is not dressed and appears to either be infected or very prone to infection. HIV disease. Substance abuse with previous urine test positive for narcotics and cocaine. History of hepatitis C virus. History of hypertensive kidney disease. Plan February 15: Patient last dialyzed February 14. Today's labs reviewed. Discussed with Dr. Crowe. The dialysis catheter was removed yesterday. New catheter will be placed on February 17. 2 sets of blood cultures ordered. Discussed with RN, and charge nurse. February 14: Patient was dialyzed yesterday. Today's labs reviewed. Discussed with PMD. The ID wig sales consultant suggest removal of the permacath due to infection. Will arrange for dialysis today. Will remove the permacath after dialysis today. Will reinsert a dialysis catheter 48 hours later. Discussed with RN. Orders in EMR. February 13: Due for dialysis today. Hemoglobin higher after transfusion. Continue per consultants. February 12: Next dialysis tomorrow on February 13. Hemoglobin remains low patient is due for another transfusion today. Continue per current treatment plan. February 11: Patient was dialyzed yesterday. Labs reviewed. Hemoglobin low. Due for transfusion. Next dialysis February 13, unless she needs it earlier. Medications are reviewed. Metoprolol dose increased. February 10: Patient due for dialysis today February 10. No labs drawn today. Will check renal parameters tomorrow. Continue per consultants. Patient anemic, transfusion is suggested. Patient dialyzed February 08, late night, for potassium of 7.4. Will give Kayexalate for high potassium as needed Adjust blood pressure medication. Folate supplement. Due for transfusion. Per orders. Subjective ROS Limited/Unobtainable: No Constitutional: Reports: malaise Objective Objective Last 24 Hour Vital Signs Date Time Temp Pulse Resp B/P (MAP) Pulse Ox O2 Delivery O2 Flow Rate FiO2 02/16/20 12:07 97.4 02/16/20 12:00 97.4 61 19 144/75 (98) 97 02/16/20 09:02 62 157/96 02/16/20 09:02 62 157/96 02/16/20 09:00 Room Air 02/16/20 08:00 97.6 62 18 157/96 (116) 98 02/16/20 05:10 153/77 02/16/20 04:00 97.3 59 19 153/77 (102) 96 02/16/20 00:00 97.9 58 20 148/69 (95) 98 02/15/20 21:03 63 151/73 02/15/20 21:02 151/73 02/15/20 21:00 Room Air 02/15/20 20:00 99.3 61 19 155/75 (101) 97 02/15/20 16:00 97.2 58 18 155/65 (95) 98 02/15/20 14:00 138/77 Intake and Output 02/15/20 02/16/20 19:00 07:00 Intake Total 1120 ml Output Total 2000 ml Balance -880 ml Intake Oral 1120 ml Hemodialysis UF 2000 ml # Voids 8 # Bowel Movements 1 Current Medications Medications (Trade) Dose Ordered Sig/Rochelle Route PRN Reason Start Time Stop Time Status Last Admin Dose Admin Acetaminophen (Tylenol) 650 mg Q4H PRN ORAL Mild Pain (Pain Scale 1-3) 02/14/20 09:00 03/11/20 08:59 Amlodipine Besylate (Norvasc) 10 mg DAILY ORAL 02/14/20 09:00 03/11/20 08:59 02/16/20 09:02 Ceftriaxone Sodium 1 gm/ Dextrose 55 ml @ 110 mls/hr DAILY IVPB 02/14/20 09:00 02/19/20 14:59 02/16/20 09:01 Clonidine HCl (Catapres Tab) 0.1 mg Q4H PRN ORAL For BP above 165 systolic 02/14/20 09:00 05/09/20 08:59 Diphenhydramine HCl (Benadryl) 25 mg Q6H PRN IVP Itching 02/14/20 14:30 03/14/20 14:29 02/16/20 12:12 Docusate Sodium (Colace) 100 mg TID ORAL 02/14/20 09:00 03/10/20 17:59 02/16/20 12:12 Epoetin Jose (Epoetin Jose(ESRD on dialysis)) 2,000 unit SUBQ 02/16/20 21:00 05/16/20 20:59 Epoetin Jose (Epoetin Jose(ESRD on dialysis)) 3,000 unit SUBQ 02/16/20 21:00 05/16/20 20:59 Folic Acid (Folate) 2 mg DAILY ORAL 02/14/20 09:00 03/11/20 09:59 02/16/20 09:01 Hydralazine HCl (Apresoline) 50 mg Q8HR ORAL 02/14/20 14:00 05/09/20 17:59 02/16/20 05:10 Hydromorphone HCl (Dilaudid) 1 mg Q4H PRN IVP For Severe Pain 02/14/20 10:00 02/18/20 09:59 02/16/20 11:37 Iron Sucrose 100 mg/Sodium Chloride 60 ml @ 240 mls/hr BEDTIME IV 02/16/20 21:00 02/20/20 21:14 Magnesium Hydroxide (Mom) 30 ml DAILYPRN PRN ORAL Constipation 02/14/20 09:00 03/14/20 08:59 Metoprolol Tartrate (Lopressor) 50 mg Q12HR ORAL 02/14/20 09:00 05/12/20 08:59 02/16/20 09:02 Ondansetron HCl (Zofran) 4 mg Q6H PRN IV Nausea & Vomiting 02/14/20 14:30 03/10/20 14:29 02/14/20 23:55 Pantoprazole (Protonix) 40 mg BID ORAL 02/14/20 09:00 03/10/20 17:59 02/16/20 09:02 Sevelamer Carbonate (Renvela) 2,400 mg THREE TIMES A DAY ORAL 02/14/20 09:00 05/09/20 17:59 02/16/20 12:12 Vancomycin HCl (Vanco pharmacy to dose) 1 ea DAILY PRN MISC Per rx protocol 02/14/20 09:00 03/12/20 17:14 Vancomycin HCl 500 mg/Dextrose 110 ml @ 110 mls/hr ONCE IVPB 02/16/20 12:00 02/16/20 14:00 02/16/20 12:03 Laboratory Tests 02/16/20 05:05: White Blood Count 3.7L, Red Blood Count 2.35L, Hemoglobin 7.1L, Hematocrit 22.1L , Mean Corpuscular Volume 94, Mean Corpuscular Hemoglobin 30.0, Mean Corpuscular Hemoglobin Concent 31.9L, Red Cell Distribution Width 13.7, Platelet Count 130L, Mean Platelet Volume 6.5, Neutrophils (%) (Auto) , Lymphocytes (%) (Auto) , Monocytes (%) (Auto) , Eosinophils (%) (Auto) , Basophils (%) (Auto) , Sodium Level 132L, Potassium Level 4.5, Chloride Level 94L, Carbon Dioxide Level 32, Anion Gap 6, Blood Urea Nitrogen 30H, Creatinine 7.5H, Estimat Glomerular Filtration Rate 6.5, Glucose Level 100, Calcium Level 7.5L, Phosphorus Level 4.2, Magnesium Level 2.3, Total Bilirubin 0.2, Aspartate Amino Transf (AST/SGOT) 26, Alanine Aminotransferase (ALT/SGPT) 11L, Alkaline Phosphatase 54, C-Reactive Protein, Quantitative < 0.4, Pro-B-Type Natriuretic Peptide 55874T, Total Protein 7.4, Albumin 2.7L, Globulin 4.7, Albumin/Globulin Ratio 0.6L, Random Vancomycin Level 16.1 Height (Feet): 5 Height (Inches): 8.00 Weight (Pounds): 172 General Appearance: no apparent distress Cardiovascular: normal rate Respiratory/Chest: decreased breath sounds Abdomen: distended Objective No change Jack Pryor MD Feb 16, 2020 13:19
[2020-02-16 16:00] VITALS: BP 139/78
--- NOTE | 2020-02-16 17:34 | Surgery Progress Note ---
Surgery Progress Note Subjective Procedure Performed removal of infected right chest wall tunneled hemodialysis catheter Symptoms: improved, pain same, tolerating diet, passing flatus Objective Last 24 Hour Vital Signs Date Time Temp Pulse Resp B/P (MAP) Pulse Ox O2 Delivery O2 Flow Rate FiO2 02/16/20 16:00 98.0 80 18 139/78 (98) 98 02/16/20 15:59 97.4 02/16/20 14:18 144/75 02/16/20 12:00 97.4 61 19 144/75 (98) 97 02/16/20 09:02 62 157/96 02/16/20 09:02 62 157/96 02/16/20 09:00 Room Air 02/16/20 08:00 97.6 62 18 157/96 (116) 98 02/16/20 05:10 153/77 02/16/20 04:00 97.3 59 19 153/77 (102) 96 02/16/20 00:00 97.9 58 20 148/69 (95) 98 02/15/20 21:03 63 151/73 02/15/20 21:02 151/73 02/15/20 21:00 Room Air 02/15/20 20:00 99.3 61 19 155/75 (101) 97 I&O Intake and Output 02/15/20 02/16/20 19:00 07:00 Intake Total 1120 ml Output Total 2000 ml Balance -880 ml Intake Oral 1120 ml Hemodialysis UF 2000 ml # Voids 8 # Bowel Movements 1 Dressing: dry Wound: clean Cardiovascular: RSR Respiratory: clear Abdomen: soft, non-tender, present bowel sounds Extremities: no edema, no tenderness, no cyanosis Laboratory Tests Test 02/16/20 05:05 White Blood Count 3.7 K/UL (4.8-10.8) L Red Blood Count 2.35 M/UL (4.20-5.40) L Hemoglobin 7.1 G/DL (12.0-16.0) L Hematocrit 22.1 % (37.0-47.0) L Mean Corpuscular Volume 94 FL (80-99) Mean Corpuscular Hemoglobin 30.0 PG (27.0-31.0) Mean Corpuscular Hemoglobin Concent 31.9 G/DL (32.0-36.0) L Red Cell Distribution Width 13.7 % (11.6-14.8) Platelet Count 130 K/UL (150-450) L Mean Platelet Volume 6.5 FL (6.5-10.1) Neutrophils (%) (Auto) % (45.0-75.0) Lymphocytes (%) (Auto) % (20.0-45.0) Monocytes (%) (Auto) % (1.0-10.0) Eosinophils (%) (Auto) % (0.0-3.0) Basophils (%) (Auto) % (0.0-2.0) Sodium Level 132 MMOL/L (136-145) L Potassium Level 4.5 MMOL/L (3.5-5.1) Chloride Level 94 MMOL/L (98-107) L Carbon Dioxide Level 32 MMOL/L (21-32) Anion Gap 6 mmol/L (5-15) Blood Urea Nitrogen 30 mg/dL (7-18) H Creatinine 7.5 MG/DL (0.55-1.30) H Estimat Glomerular Filtration Rate 6.5 mL/min (>60) Glucose Level 100 MG/DL (74-106) Calcium Level 7.5 MG/DL (8.5-10.1) L Phosphorus Level 4.2 MG/DL (2.5-4.9) Magnesium Level 2.3 MG/DL (1.8-2.4) Total Bilirubin 0.2 MG/DL (0.2-1.0) Aspartate Amino Transf (AST/SGOT) 26 U/L (15-37) Alanine Aminotransferase (ALT/SGPT) 11 U/L (12-78) L Alkaline Phosphatase 54 U/L (46-116) C-Reactive Protein, Quantitative < 0.4 mg/dL (0.00-0.90) Pro-B-Type Natriuretic Peptide 82062 pg/mL (0-125) H Total Protein 7.4 G/DL (6.4-8.2) Albumin 2.7 G/DL (3.4-5.0) L Globulin 4.7 g/dL Albumin/Globulin Ratio 0.6 (1.0-2.7) L Random Vancomycin Level 16.1 ug/mL Plan Problems: (1) Anemia (2) Bartholin's gland abscess Assessment & Plan: 69-year-old female Bartholin gland abscess cyst. Status post incision and drainage with drain placement. Drain currently in place and still draining. States that it feels better but continues to hurt. Plan for hemodialysis initiated by audio visual project manager. Patient has a catheter in place unlikely infected. We will continue to monitor for local abscess drainage and improvement. Will monitor drain and manage drain accordingly. Okay for warm compress as needed. Pain management Rx written. Trend labs. Antibiotics per ID. May need repeat drainage if does not improve significantly. Thank you for letting participate in patient's care will follow recommendations anemia - transfuse prbc with HD Continue with catheter drainage functional doing well Discussed care plan with the patient Plan for outpatient PICTURE ENGRAVER follow-up on discharge. prbc with HD prn as per renal drain okay KUB in AM bowel regimen - constipated Drain has fallen out. Cellulitis is improved. Nontender no draining okay for drain to be out. Outpatient follow-up plan. Persistent fevers right tunneled 2-year-old permacath removed Discussed with medical team nephrology and radiology plan for new line placement this Friday (3) Hypoglycemia (4) Vulval cellulitis (5) Missed dialysis (6) ESRD (end stage renal disease) on dialysis (7) Hyperkalemia (8) Substance abuse (9) HIV disease (10) HCV antibody positive (11) Weakness (12) Epileptic seizure, generalized Deon Crowe Feb 16, 2020 17:34
--- NOTE | 2020-02-16 19:30 | NUR ---
NURSE NOTES: Patient awake in bed, in pain and asking for pain shot, will medicate as ordered. Call light in reach. Bed in lowest and lock engaged. Will continue plan of care.
--- NOTE | 2020-02-16 19:39 | NUR ---
HAND-OFF: Report given to MARTIN De Souza.
[2020-02-16 20:00] VITALS: BP 138/73
[2020-02-16] MEDS: Iron Sucrose 100 MG in NS 55 ML IV SCH (21:41)
[2020-02-16] MEDS: Epoetin Alfa-EPBX(ESRD on dialysis)2000 units/ml vial SUBQ SCH (21:45)
[2020-02-16] MEDS: Epoetin Alfa-EPBX(ESRD on dialysis)3000 units/ml vial SUBQ SCH (21:45)
--- NOTE | 2020-02-16 23:15 | Progress Note ---
DATE: 02/16/2020 CARDIOLOGY PROGRESS NOTE SUBJECTIVE: The patient's PermCath was removed yesterday. She is to have replacement prior to next dialysis. She continues to complain of pain and anxiety. No chest pain or shortness of breath. No change to ROS from my initial evaluation. PHYSICAL EXAMINATION: VITAL SIGNS: Blood pressure 148/69, pulse 58, respirations 20, afebrile. LUNGS: Clear. CARDIAC: Regular. Normal S1, S2. ABDOMEN: Soft. EXTREMITIES: No edema. Prior PermCath site with no bleeding. IMPRESSION: Slow progress. Patient remains with high risk - and has had at least 3 hospitalizations in past 2 months. PLAN: Antibiotic. New PermCath. Titrate antihypertensive. Symptom guarded pain control. Anxiolytics. Hemodialysis with ultrafiltration. Review 2D Echo and cultures to address endocarditis. Discharge planning to follow. Nam Barntet M.D. DR: TAMARA JOB#: [id number] CC: AMBERLY
[2020-02-17] VITALS: BP 127/68
[2020-02-17] MEDS: HYDROmorphone 1mg/ml Carpuject IVP PRN ×5 (03:51→22:14)
[2020-02-17 04:00] VITALS: BP 164/77
[2020-02-17] MEDS: HydrALAZINE 50mg tab ORAL SCH ×3 (05:18→20:57)
[2020-02-17] MEDS: DiphenhydrAMINE 50mg/ml Inj IVP PRN ×3 (05:23→22:14)
--- NOTE | 2020-02-17 07:09 | NUR ---
HAND-OFF: Report given to MARTIN Lockett.
--- NOTE | 2020-02-17 07:40 | NUR ---
NURSE NOTES: Received report from Ap RN, rounds made pt awake , A/Ox4, breath regular unlabored on RA , pt c/o oral pain , pt states she fell long time ago and fractured her jaw, no visible injuries no, will provide pain medication as ordered,pt has Lt hand 22G locked bed in low locked position , side rails up x 2, call light with in reach , will continue to monitor.
[2020-02-17 08:00] VITALS: BP 155/72
[2020-02-17 08:11] LABS: HEMATOCRIT 21.8 % (37.0-47.0); HEMOGLOBIN 7.1 G/DL (12.0-16.0); MEAN CORPUSCULAR VOLUME 93 FL (80-99); PLATELET COUNT 140 K/UL (150-450); RED BLOOD COUNT 2.35 M/UL (4.20-5.40); RED CELL DISTRIBUTION WIDTH 13.5 % (11.6-14.8); WHITE BLOOD COUNT 3.6 K/UL (4.8-10.8)
[2020-02-17 08:57] LABS: ANION GAP 8 mmol/L (5-15); BILIRUBIN,TOTAL 0.2 MG/DL (0.2-1.0); BLOOD UREA NITROGEN 44 mg/dL (7-18); CALCIUM 7.6 MG/DL (8.5-10.1); CARBON DIOXIDE 28 MMOL/L (21-32); CHLORIDE 92 MMOL/L (98-107); CREATININE 9.2 MG/DL (0.55-1.30); PHOSPHORUS 4.6 MG/DL (2.5-4.9); POTASSIUM 4.9 MMOL/L (3.5-5.1); SODIUM 128 MMOL/L (136-145)
[2020-02-17] MEDS: Metoprolol Tartrate 50mg tab ORAL SCH ×2 (08:57→20:57)
[2020-02-17] MEDS: Docusate 100mg cap ORAL SCH ×3 (08:57→17:07)
[2020-02-17] MEDS: Renvela 2400 mg pkt ORAL SCH ×3 (08:57→17:07)
[2020-02-17] MEDS: cefTRIAXone 1 GM in D5W 55 ML IVPB SCH (09:00)
[2020-02-17 09:37] LABS: ALANINE AMINOTRANSFERASE 12 U/L (12-78); ALKALINE PHOSPHATASE 57 U/L (46-116); ASPARTATE AMINO TRANSFERASE 23 U/L (15-37)
--- NOTE | 2020-02-17 10:29 | Infectious Diseases Prog Note ---
Assessment/Plan Assessment/Plan A: 1. Staph aureus sepsis (MSSA), catheter infection. 2. Infected Bartholin cyst, status post drainage with Proteus and Enterococcus. 3. Hypertension. 4. HIV. 5. Hepatitis C. 6. ESRD. 7. Severe anemia 8. Cocaine abuse PLAN: 1. Continue IV vancomycin X 7 days 2. Discontinue Rocephin Subjective ROS Limited/Unobtainable: No Constitutional: Reports: no symptoms Respiratory: Reports: no symptoms Gastrointestinal/Abdominal: Reports: nausea Genitourinary: Reports: no symptoms Musculoskeletal: Reports: pain, other - back pain Allergies: Coded Allergies: ASPIRIN (Unverified Allergy, Unknown, 01/16/20) IODINE (Verified Allergy, Unknown, 01/07/20) Uncoded Allergies: CONTRAST DYE (Allergy, Unknown, 01/07/20) Objective Last 24 Hour Vital Signs Date Time Temp Pulse Resp B/P (MAP) Pulse Ox O2 Delivery O2 Flow Rate FiO2 02/17/20 09:00 Room Air 02/17/20 08:58 73 155/72 02/17/20 08:57 73 155/72 02/17/20 08:00 98.6 73 17 155/72 (99) 98 02/17/20 05:18 164/77 02/17/20 04:00 98.2 68 19 164/77 (106) 97 02/17/20 00:00 98.0 68 19 127/68 (87) 98 02/16/20 21:32 138/73 02/16/20 21:31 59 138/73 02/16/20 21:00 Room Air 02/16/20 20:00 97.3 59 19 138/73 (94) 97 02/16/20 16:00 98.0 80 18 139/78 (98) 98 02/16/20 15:59 97.4 02/16/20 14:18 144/75 02/16/20 12:00 97.4 61 19 144/75 (98) 97 Height (Feet): 5 Height (Inches): 8.00 Weight (Pounds): 172 General Appearance: no acute distress HEENT: mucous membranes moist Respiratory/Chest: lungs clear Cardiovascular: normal rate Abdomen: soft, non tender Extremities: no edema Neurologic/Psychiatric: alert, responsive Microbiology Date/Time Source Procedure Growth Status 7/14/20 14:40 Catheter Site Catheter Tip Culture - Preliminary NO GROWTH Resulted Laboratory Tests Test 02/17/20 07:40 White Blood Count 3.6 K/UL (4.8-10.8) L Red Blood Count 2.35 M/UL (4.20-5.40) L Hemoglobin 7.1 G/DL (12.0-16.0) L Hematocrit 21.8 % (37.0-47.0) L Mean Corpuscular Volume 93 FL (80-99) Mean Corpuscular Hemoglobin 30.4 PG (27.0-31.0) Mean Corpuscular Hemoglobin Concent 32.7 G/DL (32.0-36.0) Red Cell Distribution Width 13.5 % (11.6-14.8) Platelet Count 140 K/UL (150-450) L Mean Platelet Volume 6.5 FL (6.5-10.1) Neutrophils (%) (Auto) % (45.0-75.0) Lymphocytes (%) (Auto) % (20.0-45.0) Monocytes (%) (Auto) % (1.0-10.0) Eosinophils (%) (Auto) % (0.0-3.0) Basophils (%) (Auto) % (0.0-2.0) Differential Total Cells Counted 100 Neutrophils % (Manual) 68 % (45-75) Lymphocytes % (Manual) 17 % (20-45) L Monocytes % (Manual) 11 % (1-10) H Eosinophils % (Manual) 4 % (0-3) H Basophils % (Manual) 0 % (0-2) Band Neutrophils 0 % (0-8) Platelet Estimate Decreased L Platelet Morphology Normal Hypochromasia 1+ Prothrombin Time 11.5 SEC (9.30-11.50) Prothromb Time International Ratio 1.0 (0.9-1.1) Activated Partial Thromboplast Time 32 SEC (23-33) Sodium Level 128 MMOL/L (136-145) L Potassium Level 4.9 MMOL/L (3.5-5.1) Chloride Level 92 MMOL/L (98-107) L Carbon Dioxide Level 28 MMOL/L (21-32) Anion Gap 8 mmol/L (5-15) Blood Urea Nitrogen 44 mg/dL (7-18) H Creatinine 9.2 MG/DL (0.55-1.30) H Estimat Glomerular Filtration Rate 5.2 mL/min (>60) Glucose Level 90 MG/DL (74-106) Calcium Level 7.6 MG/DL (8.5-10.1) L Phosphorus Level 4.6 MG/DL (2.5-4.9) Total Bilirubin 0.2 MG/DL (0.2-1.0) Aspartate Amino Transf (AST/SGOT) 23 U/L (15-37) Alanine Aminotransferase (ALT/SGPT) 12 U/L (12-78) Alkaline Phosphatase 57 U/L (46-116) C-Reactive Protein, Quantitative < 0.4 mg/dL (0.00-0.90) Pro-B-Type Natriuretic Peptide 51158 pg/mL (0-125) H Total Protein 7.5 G/DL (6.4-8.2) Albumin 3.0 G/DL (3.4-5.0) L Globulin 4.5 g/dL Current Medications Medications (Trade) Dose Ordered Sig/Rochelle Route PRN Reason Start Time Stop Time Status Last Admin Dose Admin Acetaminophen (Tylenol) 650 mg Q4H PRN ORAL Mild Pain (Pain Scale 1-3) 02/14/20 09:00 03/11/20 08:59 Alprazolam (Xanax) 0.5 mg Q6H PRN ORAL For Anxiety 02/16/20 22:30 02/23/20 22:29 Amlodipine Besylate (Norvasc) 10 mg DAILY ORAL 02/14/20 09:00 03/11/20 08:59 02/17/20 08:58 Ceftriaxone Sodium 1 gm/ Dextrose 55 ml @ 110 mls/hr DAILY IVPB 02/14/20 09:00 02/19/20 14:59 02/17/20 09:00 Clonidine HCl (Catapres Tab) 0.1 mg Q4H PRN ORAL For BP above 165 systolic 02/14/20 09:00 05/09/20 08:59 Diphenhydramine HCl (Benadryl) 25 mg Q6H PRN IVP Itching 02/14/20 14:30 03/14/20 14:29 02/17/20 05:23 Docusate Sodium (Colace) 100 mg TID ORAL 02/14/20 09:00 03/10/20 17:59 02/17/20 08:57 Epoetin Jose (Epoetin Jose(ESRD on dialysis)) 2,000 unit FRI- SUBQ 02/16/20 21:00 05/16/20 20:59 02/16/20 21:45 Epoetin Jose (Epoetin Jose(ESRD on dialysis)) 3,000 unit FRI- SUBQ 02/16/20 21:00 05/16/20 20:59 02/16/20 21:45 Folic Acid (Folate) 2 mg DAILY ORAL 02/14/20 09:00 03/11/20 09:59 02/17/20 08:57 Hydralazine HCl (Apresoline) 50 mg Q8HR ORAL 02/14/20 14:00 05/09/20 17:59 02/17/20 05:18 Hydromorphone HCl (Dilaudid) 1 mg Q4H PRN IVP For Severe Pain 02/14/20 10:00 02/18/20 09:59 02/17/20 08:59 Iron Sucrose 100 mg/Sodium Chloride 60 ml @ 240 mls/hr BEDTIME IV 02/16/20 21:00 02/20/20 21:14 02/16/20 21:41 Magnesium Hydroxide (Mom) 30 ml DAILYPRN PRN ORAL Constipation 02/14/20 09:00 03/14/20 08:59 Metoprolol Tartrate (Lopressor) 50 mg Q12HR ORAL 02/14/20 09:00 05/12/20 08:59 02/17/20 08:57 Ondansetron HCl (Zofran) 4 mg Q6H PRN IV Nausea & Vomiting 02/14/20 14:30 03/10/20 14:29 02/17/20 09:29 Pantoprazole (Protonix) 40 mg BID ORAL 02/14/20 09:00 03/10/20 17:59 02/17/20 08:57 Sevelamer Carbonate (Renvela) 2,400 mg THREE TIMES A DAY ORAL 02/14/20 09:00 05/09/20 17:59 02/17/20 08:57 Vancomycin HCl (Vanco pharmacy to dose) 1 ea DAILY PRN MISC Per rx protocol 02/14/20 09:00 03/12/20 17:14 Armando Brown MD Feb 17, 2020 10:29
[2020-02-17 12:00] VITALS: BP 156/80
--- NOTE | 2020-02-17 12:09 | Nephrology Progress Note ---
Assessment/Plan Problem List: (1) ESRD (end stage renal disease) on dialysis (2) Hyperkalemia (3) Bartholin's gland abscess (4) Anemia (5) HCV antibody positive (6) HIV disease (7) Substance abuse Assessment Patient presents with hyperkalemia, anemia and 1 week of no dialysis Previous frequent chest pains. Anemia and evidence of upper GI bleed and [employer] in the past. Patient was on anticoagulation for atrial fibrillation however it is unclear how compliant the patient is. History of frequent hyperkalemia due to missing hemodialysis. End-stage renal disease on hemodialysis. The patient has a right chest permacath which is not dressed and appears to either be infected or very prone to infection. HIV disease. Substance abuse with previous urine test positive for narcotics and cocaine. History of hepatitis C virus. History of hypertensive kidney disease. Plan February 16: Last dialysis February 14. Due for dialysis tomorrow February 17. Due for insertion of a permacath by IR tomorrow. The removed catheter on February 14 has a negative tip culture February 15: Patient last dialyzed February 14. Today's labs reviewed. Discussed with Dr. Crowe. The dialysis catheter was removed yesterday. New catheter will be placed on February 17. 2 sets of blood cultures ordered. Discussed with RN, and charge nurse. February 14: Patient was dialyzed yesterday. Today's labs reviewed. Discussed with PMD. The ID technical marketing consultant suggest removal of the permacath due to infection. Will arrange for dialysis today. Will remove the permacath after dialysis today. Will reinsert a dialysis catheter 48 hours later. Discussed with RN. Orders in EMR. February 13: Due for dialysis today. Hemoglobin higher after transfusion. Continue per consultants. February 12: Next dialysis tomorrow on February 13. Hemoglobin remains low patient is due for another transfusion today. Continue per current treatment plan. February 11: Patient was dialyzed yesterday. Labs reviewed. Hemoglobin low. Due for transfusion. Next dialysis February 13, unless she needs it earlier. Medications are reviewed. Metoprolol dose increased. February 10: Patient due for dialysis today February 10. No labs drawn today. Will check renal parameters tomorrow. Continue per consultants. Patient anemic, transfusion is suggested. Patient dialyzed February 08, late night, for potassium of 7.4. Will give Kayexalate for high potassium as needed Adjust blood pressure medication. Folate supplement. Due for transfusion. Per orders. Subjective ROS Limited/Unobtainable: No Constitutional: Reports: malaise Objective Objective Last 24 Hour Vital Signs Date Time Temp Pulse Resp B/P (MAP) Pulse Ox O2 Delivery O2 Flow Rate FiO2 02/17/20 09:00 Room Air 02/17/20 08:58 73 155/72 02/17/20 08:57 73 155/72 02/17/20 08:00 98.6 73 17 155/72 (99) 98 02/17/20 05:18 164/77 02/17/20 04:00 98.2 68 19 164/77 (106) 97 02/17/20 00:00 98.0 68 19 127/68 (87) 98 02/16/20 21:32 138/73 02/16/20 21:31 59 138/73 02/16/20 21:00 Room Air 02/16/20 20:00 97.3 59 19 138/73 (94) 97 02/16/20 16:00 98.0 80 18 139/78 (98) 98 02/16/20 15:59 97.4 02/16/20 14:18 144/75 Intake and Output 02/16/20 02/17/20 19:00 07:00 Intake Total 850 ml 60 ml Output Total 450 ml Balance 850 ml -390 ml Intake Oral 740 ml IV Total 110 ml 60 ml Output Urine Total 450 ml # Voids 4 1 Laboratory Tests 02/17/20 07:40: White Blood Count 3.6L, Red Blood Count 2.35L, Hemoglobin 7.1L, Hematocrit 21.8L , Mean Corpuscular Volume 93, Mean Corpuscular Hemoglobin 30.4, Mean Corpuscular Hemoglobin Concent 32.7, Red Cell Distribution Width 13.5, Platelet Count 140L, Mean Platelet Volume 6.5, Neutrophils (%) (Auto) , Lymphocytes (%) ( Auto) , Monocytes (%) (Auto) , Eosinophils (%) (Auto) , Basophils (%) (Auto) , Differential Total Cells Counted 100, Neutrophils % (Manual) 68, Lymphocytes % ( Manual) 17L, Monocytes % (Manual) 11H, Eosinophils % (Manual) 4H, Basophils % ( Manual) 0, Band Neutrophils 0, Platelet Estimate DecreasedL, Platelet Morphology Normal, Hypochromasia 1+, Prothrombin Time 11.5, Prothromb Time International Ratio 1.0, Activated Partial Thromboplast Time 32, Sodium Level 128L, Potassium Level 4.9, Chloride Level 92L, Carbon Dioxide Level 28, Anion Gap 8, Blood Urea Nitrogen 44H, Creatinine 9.2H, Estimat Glomerular Filtration Rate 5.2, Glucose Level 90, Calcium Level 7.6L, Phosphorus Level 4.6, Total Bilirubin 0.2, Aspartate Amino Transf (AST/SGOT) 23, Alanine Aminotransferase ( ALT/SGPT) 12, Alkaline Phosphatase 57, C-Reactive Protein, Quantitative < 0.4, Pro-B-Type Natriuretic Peptide 11330H, Total Protein 7.5, Albumin 3.0L, Globulin 4.5 Height (Feet): 5 Height (Inches): 8.00 Weight (Pounds): 172 General Appearance: no apparent distress Cardiovascular: normal rate Respiratory/Chest: decreased breath sounds Abdomen: soft Objective No change Jack Pryor MD Feb 17, 2020 12:09
--- NOTE | 2020-02-17 13:15 | Surgery Progress Note ---
Surgery Progress Note Subjective Procedure Performed removal of infected right chest wall tunneled hemodialysis catheter Symptoms: improved, tolerating diet, passing flatus Objective Last 24 Hour Vital Signs Date Time Temp Pulse Resp B/P (MAP) Pulse Ox O2 Delivery O2 Flow Rate FiO2 02/17/20 09:00 Room Air 02/17/20 08:58 73 155/72 02/17/20 08:57 73 155/72 02/17/20 08:00 98.6 73 17 155/72 (99) 98 02/17/20 05:18 164/77 02/17/20 04:00 98.2 68 19 164/77 (106) 97 02/17/20 00:00 98.0 68 19 127/68 (87) 98 02/16/20 21:32 138/73 02/16/20 21:31 59 138/73 02/16/20 21:00 Room Air 02/16/20 20:00 97.3 59 19 138/73 (94) 97 02/16/20 16:00 98.0 80 18 139/78 (98) 98 02/16/20 15:59 97.4 02/16/20 14:18 144/75 I&O Intake and Output 02/16/20 02/17/20 19:00 07:00 Intake Total 850 ml 60 ml Output Total 450 ml Balance 850 ml -390 ml Intake Oral 740 ml IV Total 110 ml 60 ml Output Urine Total 450 ml # Voids 4 1 Dressing: dry Wound: clean Cardiovascular: RSR Respiratory: clear Abdomen: soft, non-tender, present bowel sounds Extremities: no edema, no tenderness, no cyanosis Laboratory Tests Test 02/17/20 07:40 White Blood Count 3.6 K/UL (4.8-10.8) L Red Blood Count 2.35 M/UL (4.20-5.40) L Hemoglobin 7.1 G/DL (12.0-16.0) L Hematocrit 21.8 % (37.0-47.0) L Mean Corpuscular Volume 93 FL (80-99) Mean Corpuscular Hemoglobin 30.4 PG (27.0-31.0) Mean Corpuscular Hemoglobin Concent 32.7 G/DL (32.0-36.0) Red Cell Distribution Width 13.5 % (11.6-14.8) Platelet Count 140 K/UL (150-450) L Mean Platelet Volume 6.5 FL (6.5-10.1) Neutrophils (%) (Auto) % (45.0-75.0) Lymphocytes (%) (Auto) % (20.0-45.0) Monocytes (%) (Auto) % (1.0-10.0) Eosinophils (%) (Auto) % (0.0-3.0) Basophils (%) (Auto) % (0.0-2.0) Differential Total Cells Counted 100 Neutrophils % (Manual) 68 % (45-75) Lymphocytes % (Manual) 17 % (20-45) L Monocytes % (Manual) 11 % (1-10) H Eosinophils % (Manual) 4 % (0-3) H Basophils % (Manual) 0 % (0-2) Band Neutrophils 0 % (0-8) Platelet Estimate Decreased L Platelet Morphology Normal Hypochromasia 1+ Prothrombin Time 11.5 SEC (9.30-11.50) Prothromb Time International Ratio 1.0 (0.9-1.1) Activated Partial Thromboplast Time 32 SEC (23-33) Sodium Level 128 MMOL/L (136-145) L Potassium Level 4.9 MMOL/L (3.5-5.1) Chloride Level 92 MMOL/L (98-107) L Carbon Dioxide Level 28 MMOL/L (21-32) Anion Gap 8 mmol/L (5-15) Blood Urea Nitrogen 44 mg/dL (7-18) H Creatinine 9.2 MG/DL (0.55-1.30) H Estimat Glomerular Filtration Rate 5.2 mL/min (>60) Glucose Level 90 MG/DL (74-106) Calcium Level 7.6 MG/DL (8.5-10.1) L Phosphorus Level 4.6 MG/DL (2.5-4.9) Total Bilirubin 0.2 MG/DL (0.2-1.0) Aspartate Amino Transf (AST/SGOT) 23 U/L (15-37) Alanine Aminotransferase (ALT/SGPT) 12 U/L (12-78) Alkaline Phosphatase 57 U/L (46-116) C-Reactive Protein, Quantitative < 0.4 mg/dL (0.00-0.90) Pro-B-Type Natriuretic Peptide 77611 pg/mL (0-125) H Total Protein 7.5 G/DL (6.4-8.2) Albumin 3.0 G/DL (3.4-5.0) L Globulin 4.5 g/dL Plan Problems: (1) Anemia (2) Bartholin's gland abscess Assessment & Plan: 69-year-old female Bartholin gland abscess cyst. Status post incision and drainage with drain placement. Drain currently in place and still draining. States that it feels better but continues to hurt. Plan for hemodialysis initiated by silk soaker. Patient has a catheter in place unlikely infected. We will continue to monitor for local abscess drainage and improvement. Will monitor drain and manage drain accordingly. Okay for warm compress as needed. Pain management Rx written. Trend labs. Antibiotics per ID. May need repeat drainage if does not improve significantly. Thank you for letting participate in patient's care will follow recommendations anemia - transfuse prbc with HD Continue with catheter drainage functional doing well Discussed care plan with the patient Plan for outpatient MORPHOLOGY TEACHER follow-up on discharge. prbc with HD prn as per renal drain okay KUB in AM bowel regimen - constipated Drain has fallen out. Cellulitis is improved. Nontender no draining okay for drain to be out. Outpatient follow-up plan. Persistent fevers right tunneled 2-year-old permacath removed Discussed with medical team nephrology and radiology plan for new line placement this Friday (3) Hypoglycemia (4) Vulval cellulitis (5) Missed dialysis (6) ESRD (end stage renal disease) on dialysis (7) Hyperkalemia (8) Substance abuse (9) HIV disease (10) HCV antibody positive (11) Weakness (12) Epileptic seizure, generalized Deon Crowe Feb 17, 2020 13:15
[2020-02-17 16:00] VITALS: BP 140/78
--- NOTE | 2020-02-17 16:34 | General Progress Note ---
Assessment/Plan Problem List: (1) Epileptic seizure, generalized ICD Codes: G40.309 - Generalized idiopathic epilepsy and epileptic syndromes, not intractable, without status epilepticus SNOMED: 74366678 (2) Weakness ICD Codes: R53.1 - Weakness SNOMED: 58680009 (3) HIV disease ICD Codes: B20 - Human immunodeficiency virus [HIV] disease SNOMED: 92026078 (4) Substance abuse ICD Codes: F19.10 - Other psychoactive substance abuse, uncomplicated SNOMED: 72509207 (5) Bartholin's gland abscess ICD Codes: N75.1 - Abscess of Bartholin's gland SNOMED: 76278923 (6) Hypoglycemia ICD Codes: E16.2 - Hypoglycemia, unspecified SNOMED: 263432253 Status: stable Assessment/Plan: cont iv abx follow up cultures HD per renal monitor h/h transfuse as needed epo and iron replacement dvt/stress ulcer prophylaxis. replace HD catheter prior to next HD transfuse with next HD. pain rx Subjective ROS Limited/Unobtainable: No Constitutional: Reports: malaise, weakness Allergies: Coded Allergies: ASPIRIN (Unverified Allergy, Unknown, 01/16/20) IODINE (Verified Allergy, Unknown, 01/07/20) Uncoded Allergies: CONTRAST DYE (Allergy, Unknown, 01/07/20) Subjective no new complaints. no fever or chills. no sob. tolerating po. HD catheter removed. h/h stable. no bleeding. Objective Last 24 Hour Vital Signs Date Time Temp Pulse Resp B/P (MAP) Pulse Ox O2 Delivery O2 Flow Rate FiO2 02/17/20 16:00 98.0 70 18 140/78 (98) 98 02/17/20 13:18 156/80 02/17/20 12:00 98.2 65 18 156/80 (105) 98 02/17/20 09:00 Room Air 02/17/20 08:58 73 155/72 02/17/20 08:57 73 155/72 02/17/20 08:00 98.6 73 17 155/72 (99) 98 02/17/20 05:18 164/77 02/17/20 04:00 98.2 68 19 164/77 (106) 97 02/17/20 00:00 98.0 68 19 127/68 (87) 98 02/16/20 21:32 138/73 7/15/20 21:31 59 138/73 02/16/20 21:00 Room Air 02/16/20 20:00 97.3 59 19 138/73 (94) 97 Intake and Output 02/16/20 02/17/20 19:00 07:00 Intake Total 850 ml 60 ml Output Total 450 ml Balance 850 ml -390 ml Intake Oral 740 ml IV Total 110 ml 60 ml Output Urine Total 450 ml # Voids 4 1 Laboratory Tests 02/17/20 07:40: White Blood Count 3.6L, Red Blood Count 2.35L, Hemoglobin 7.1L, Hematocrit 21.8L , Mean Corpuscular Volume 93, Mean Corpuscular Hemoglobin 30.4, Mean Corpuscular Hemoglobin Concent 32.7, Red Cell Distribution Width 13.5, Platelet Count 140L, Mean Platelet Volume 6.5, Neutrophils (%) (Auto) , Lymphocytes (%) ( Auto) , Monocytes (%) (Auto) , Eosinophils (%) (Auto) , Basophils (%) (Auto) , Differential Total Cells Counted 100, Neutrophils % (Manual) 68, Lymphocytes % ( Manual) 17L, Monocytes % (Manual) 11H, Eosinophils % (Manual) 4H, Basophils % ( Manual) 0, Band Neutrophils 0, Platelet Estimate DecreasedL, Platelet Morphology Normal, Hypochromasia 1+, Prothrombin Time 11.5, Prothromb Time International Ratio 1.0, Activated Partial Thromboplast Time 32, Sodium Level 128L, Potassium Level 4.9, Chloride Level 92L, Carbon Dioxide Level 28, Anion Gap 8, Blood Urea Nitrogen 44H, Creatinine 9.2H, Estimat Glomerular Filtration Rate 5.2, Glucose Level 90, Calcium Level 7.6L, Phosphorus Level 4.6, Total Bilirubin 0.2, Aspartate Amino Transf (AST/SGOT) 23, Alanine Aminotransferase ( ALT/SGPT) 12, Alkaline Phosphatase 57, C-Reactive Protein, Quantitative < 0.4, Pro-B-Type Natriuretic Peptide 98935F, Total Protein 7.5, Albumin 3.0L, Globulin 4.5 Height (Feet): 5 Height (Inches): 8.00 Weight (Pounds): 172 Objective General Appearance: WD/WN, lethargic EENT: PERRL/EOMI, normal ENT inspection Neck: non-tender, normal alignment Cardiovascular: normal peripheral pulses, normal rate, regular rhythm Respiratory/Chest: chest wall non-tender, lungs clear, normal breath sounds Abdomen: normal bowel sounds, non tender, soft, no organomegaly Extremities: normal range of motion Edema: no edema noted Arm (L), no edema noted Arm (R) 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
--- NOTE | 2020-02-17 19:10 | NUR ---
NURSE NOTES: Called [facility] and spoke with Mireya,she said she will give the dialysis nurse the information so they can call back and confirm scheduling. slot shift supervisor nurse notified
--- NOTE | 2020-02-17 19:13 | NUR ---
HAND-OFF: Report given to Melanie SALAZAR, pt stable .
--- NOTE | 2020-02-17 19:30 | NUR ---
NURSE NOTES: Received patient awake, alert, verbal, resting in bed, comfortable.
[2020-02-17 20:27] VITALS: BP 144/90
[2020-02-17] MEDS: Iron Sucrose 100 MG in NS 55 ML IV SCH (20:57)
[2020-02-18] VITALS (11 sets, daily range): BP systolic 150–190; BP diastolic 78–101
[2020-02-18] MEDS: HYDROmorphone 1mg/ml Carpuject IVP PRN ×5 (02:21→20:50)
[2020-02-18] MEDS: Milk of Magnesia 30ml Ud ORAL PRN (03:46)
[2020-02-18] MEDS: ALPRAZolam 0.5mg tab ORAL PRN ×2 (03:49→23:33)
--- NOTE | 2020-02-18 05:00 | Progress Note ---
DATE: 02/17/2020 CARDIOLOGY PROGRESS NOTE SUBJECTIVE: The patient remains afebrile. Her dialysis catheter was removed 48 hours ago. PHYSICAL EXAMINATION: VITAL SIGNS: Stable. Blood pressure 127/68 to 164/77, heart rate 68 to 73, respiratory rate 18. LUNGS: Clear. Right chest wall with no bleeding or drainage at site of prior catheter. CARDIAC: Regular rhythm and rate. Normal S1, S2 with a fourth heart sound. ABDOMEN: Soft, nontender. There is no edema. LABS: White count 3.6, hemoglobin 7.1. Sodium 128, potassium 4.9, bicarb 28, BUN 44, creatinine 9.2. Pronatriuretic peptide 21,000. IMPRESSION: 1. Infected dialysis catheter with bacteremia and increased risk for endocarditis. Echocardiogram revealed low likelihood for endocarditis. 2. Hypertension is overall adequately controlled although still slightly elevated at times. 3. End-stage renal disease. 4. History of cocaine abuse. PLAN: New dialysis access to be placed with subsequent hemodialysis and ultrafiltration. Continue antimicrobials. Titrate antihypertensives. Counseled regarding continued cocaine use as an outpatient. Discharge planning to follow. Alek Mario JOB#: [id number] CC:
[2020-02-18] MEDS: HydrALAZINE 50mg tab ORAL SCH ×3 (06:20→23:37)
[2020-02-18] MEDS: DiphenhydrAMINE 50mg/ml Inj IVP PRN ×3 (06:20→23:34)
[2020-02-18 06:35] LABS: HEMATOCRIT 20.7 % (37.0-47.0); MEAN CORPUSCULAR VOLUME 93 FL (80-99); PLATELET COUNT 129 K/UL (150-450); RED BLOOD COUNT 2.23 M/UL (4.20-5.40); RED CELL DISTRIBUTION WIDTH 13.1 % (11.6-14.8); WHITE BLOOD COUNT 3.6 K/UL (4.8-10.8)
[2020-02-18 06:38] LABS: INR 1.1 (0.9-1.1)
[2020-02-18 07:15] LABS: ALANINE AMINOTRANSFERASE 14 U/L (12-78); ALBUMIN 2.6 G/DL (3.4-5.0); ALBUMIN/GLOBULIN RATIO 0.6 (1.0-2.7); ALKALINE PHOSPHATASE 60 U/L (46-116); ANION GAP 7 mmol/L (5-15); ASPARTATE AMINO TRANSFERASE 25 U/L (15-37); BILIRUBIN,TOTAL 0.3 MG/DL (0.2-1.0); BLOOD UREA NITROGEN 50 mg/dL (7-18); CARBON DIOXIDE 28 MMOL/L (21-32); CHLORIDE 91 MMOL/L (98-107); CREATININE 10.6 MG/DL (0.55-1.30); POTASSIUM 5.1 MMOL/L (3.5-5.1); SODIUM 126 MMOL/L (136-145)
[2020-02-18 07:21] LABS: HEMOGLOBIN 6.6 G/DL (12.0-16.0)
--- NOTE | 2020-02-18 07:23 | NUR ---
HAND-OFF: Report given to Magdiel Buenrostro RN.
--- NOTE | 2020-02-18 07:47 | NUR ---
NURSE NOTES:Report received from MARTIN Navarro. Patient awake, alert, and oriented x4. Seen lying in bed, no s/sx of SOB/Distress, no current complain of any pain or gi/gu distress. IV site located on left forearm gauge 22. IV site inplace and intact, no s/sx of any redness, swelling or infiltration at site. Bed placed on lowest position and locked. Call light placed within reach and will continuously monitor.
--- NOTE | 2020-02-18 07:51 | NUR ---
NURSE NOTES: Received call from [facility]/ LAB reporting critically low hemoglobin of 6.6. Called Mai Pryor MD at 0730 and left voicemail.
[2020-02-18] MEDS: Docusate 100mg cap ORAL SCH ×3 (08:17→17:07)
[2020-02-18] MEDS: Renvela 2400 mg pkt ORAL SCH ×3 (08:18→17:06)
--- NOTE | 2020-02-18 08:28 | NUR ---
RD ASSESSMENT & RECOMMENDATIONS SEE CARE ACTIVITY FOR COMPLETE ASSESSMENT DAILY ESTIMATED NEEDS: Needs based on ESRD on HD 67.4kg abw 30-35 kcals/kg 0970-7037 total kcals 1.2-1.8 g protein/kg 81-121 g total protein fluid per MD, on HD mL/kg total fluid mLs NUTRITION DIAGNOSIS: Increased kcal and pro needs r/t renal dysfunction and wound healing as evidenced by pt w/ esrd on HD, admitted w/ partial thickness wounds @ sacrum and lower L buttocks. CURRENT DIET:Renal PO DIET RECOMMENDATIONS: Maintain renal diet/ texture as sandra (monitor need for texture downgrade) ADDITIONAL RECOMMENDATIONS: 1) Obtain a standing scale wt as able or calibrated bed scale -> POST HD wt as able 2) Monitor for po intake and need for supplement -> Add NEPRO 1 tetra qdaily w/ variable intake at this time 3) Trend Na, need for fluid restriction 4) Wound care: Nephrovite qdaily 5) Monitor PO tolerance, modified texture needs: c/o mouth pain
--- NOTE | 2020-02-18 08:30 | NUR ---
NURSE NOTES: Called Dr.Kattan felder regarding critical level of Hgb. Notified Dr. Peralta. will put new order for the patient. OK to get portal cath for HD procedure as scheduled today.
--- NOTE | 2020-02-18 08:36 | General Progress Note ---
Assessment/Plan Problem List: (1) Epileptic seizure, generalized ICD Codes: G40.309 - Generalized idiopathic epilepsy and epileptic syndromes, not intractable, without status epilepticus SNOMED: 33077881 (2) Weakness ICD Codes: R53.1 - Weakness SNOMED: 10048347 (3) HIV disease ICD Codes: B20 - Human immunodeficiency virus [HIV] disease SNOMED: 00305307 (4) Substance abuse ICD Codes: F19.10 - Other psychoactive substance abuse, uncomplicated SNOMED: 37452839 (5) Bartholin's gland abscess ICD Codes: N75.1 - Abscess of Bartholin's gland SNOMED: 88622294 (6) Hypoglycemia ICD Codes: E16.2 - Hypoglycemia, unspecified SNOMED: 287225111 Status: stable Assessment/Plan: cont iv abx HD per renal replace HD catheter today monitor h/h transfuse with HD today epo and iron replacement dvt/stress ulcer prophylaxis. transfuse with next HD. pain rx Subjective ROS Limited/Unobtainable: No Constitutional: Reports: malaise, weakness HEENT: Reports: no symptoms Cardiovascular: Reports: no symptoms Respiratory: Reports: no symptoms Gastrointestinal/Abdominal: Reports: no symptoms Genitourinary: Reports: no symptoms Neurologic/Psychiatric: Reports: anxiety Endocrine: Reports: no symptoms Hematologic/Lymphatic: Reports: no symptoms Allergies: Coded Allergies: ASPIRIN (Unverified Allergy, Unknown, 01/16/20) IODINE (Verified Allergy, Unknown, 01/07/20) Uncoded Allergies: CONTRAST DYE (Allergy, Unknown, 01/07/20) All Systems: reviewed and negative except above Subjective no new complaints. no fever or chills. no sob. tolerating po. HD catheter removed. catheter due to be replaced today h/h decreased. no bleeding. Objective Last 24 Hour Vital Signs Date Time Temp Pulse Resp B/P (MAP) Pulse Ox O2 Delivery O2 Flow Rate FiO2 02/18/20 08:00 98.4 63 18 158/84 (108) 94 02/18/20 06:50 97.9 02/18/20 06:20 158/90 02/18/20 04:08 97.9 68 18 158/90 (112) 97 02/18/20 00:28 98.2 60 18 150/78 (102) 98 02/17/20 20:57 67 144/90 02/17/20 20:57 144/90 02/17/20 20:33 Room Air 02/17/20 20:27 98.8 67 18 144/90 (108) 95 02/17/20 16:00 98.0 70 18 140/78 (98) 98 02/17/20 13:18 156/80 02/17/20 12:00 98.2 65 18 156/80 (105) 98 02/17/20 09:00 Room Air 02/17/20 08:58 73 155/72 02/17/20 08:57 73 155/72 Intake and Output 02/17/20 02/18/20 19:00 07:00 Intake Total 800 ml 160 ml Balance 800 ml 160 ml Intake Oral 800 ml IV Total 60 ml Other 100 ml # Voids 4 1 Laboratory Tests 02/18/20 05:30: White Blood Count 3.6L, Red Blood Count 2.23L, Hemoglobin 6.6*L, Hematocrit 20.7L, Mean Corpuscular Volume 93, Mean Corpuscular Hemoglobin 29.6, Mean Corpuscular Hemoglobin Concent 31.9L, Red Cell Distribution Width 13.1, Platelet Count 129L, Mean Platelet Volume 7.1, Neutrophils (%) (Auto) , Lymphocytes (%) (Auto) , Monocytes (%) (Auto) , Eosinophils (%) (Auto) , Basophils (%) (Auto) , Neutrophils % (Manual) [Pending], Lymphocytes % (Manual) [Pending], Platelet Estimate [Pending], Platelet Morphology [Pending], Prothrombin Time 11.9H, Prothromb Time International Ratio 1.1, Activated Partial Thromboplast Time 33, Sodium Level 126L, Potassium Level 5.1, Chloride Level 91L, Carbon Dioxide Level 28, Anion Gap 7, Blood Urea Nitrogen 50H, Creatinine 10.6H, Estimat Glomerular Filtration Rate 4.4, Glucose Level 86, Uric Acid 5.8, Calcium Level 8.0L, Total Bilirubin 0.3, Aspartate Amino Transf ( AST/SGOT) 25, Alanine Aminotransferase (ALT/SGPT) 14, Alkaline Phosphatase 60, C -Reactive Protein, Quantitative < 0.4, Pro-B-Type Natriuretic Peptide 79196K, Total Protein 7.2, Albumin 2.6L, Globulin 4.6, Albumin/Globulin Ratio 0.6L Height (Feet): 5 Height (Inches): 8.00 Weight (Pounds): 172 Objective General Appearance: WD/WN, lethargic EENT: PERRL/EOMI, normal ENT inspection Neck: non-tender, normal alignment Cardiovascular: normal peripheral pulses, normal rate, regular rhythm Respiratory/Chest: chest wall non-tender, lungs clear, normal breath sounds Abdomen: normal bowel sounds, non tender, soft, no organomegaly Extremities: normal range of motion Edema: no edema noted Arm (L), no edema noted Arm (R) Neurologic: weekend anchor II-XII grossly normal, no motor/sensory deficits, abnormal gait , alert, oriented x 3, responsive Michael Peralta MD Feb 18, 2020 08:36
[2020-02-18] MEDS: Metoprolol Tartrate 50mg tab ORAL SCH ×3 (08:47→20:51)
--- NOTE | 2020-02-18 09:44 | NUR ---
Received call that Radiologist is available for scheduled tunnel catheter placement at 1pm. Notified Dr. Peralta and was instructed to give blood transfusion post procedure with dialysis.
--- NOTE | 2020-02-18 10:49 | Nephrology Progress Note ---
Assessment/Plan Problem List: (1) ESRD (end stage renal disease) on dialysis (2) Hyperkalemia (3) Bartholin's gland abscess (4) Anemia (5) HCV antibody positive (6) HIV disease (7) Substance abuse Assessment Patient presents with hyperkalemia, anemia and 1 week of no dialysis Previous frequent chest pains. Anemia and evidence of upper GI bleed and [employer] in the past. Patient was on anticoagulation for atrial fibrillation however it is unclear how compliant the patient is. History of frequent hyperkalemia due to missing hemodialysis. End-stage renal disease on hemodialysis. The patient has a right chest permacath which is not dressed and appears to either be infected or very prone to infection. HIV disease. Substance abuse with previous urine test positive for narcotics and cocaine. History of hepatitis C virus. History of hypertensive kidney disease. Plan February 17: Last dialysis was February 14. Patient due to have a permacath today and then arrange for dialysis and 2 units of blood transfusion afterwards. Discussed with RN. Labs reviewed. Expect correction of the chemistry panel after dialysis. February 16: Last dialysis February 14. Due for dialysis tomorrow February 17. Due for insertion of a permacath by IR tomorrow. The removed catheter on February 14 has a negative tip culture February 15: Patient last dialyzed February 14. Today's labs reviewed. Discussed with Dr. Crowe. The dialysis catheter was removed yesterday. New catheter will be placed on February 17. 2 sets of blood cultures ordered. Discussed with RN, and charge nurse. February 14: Patient was dialyzed yesterday. Today's labs reviewed. Discussed with PMD. The ID industrial methods consultant suggest removal of the permacath due to infection. Will arrange for dialysis today. Will remove the permacath after dialysis today. Will reinsert a dialysis catheter 48 hours later. Discussed with RN. Orders in EMR. February 13: Due for dialysis today. Hemoglobin higher after transfusion. Continue per consultants. February 12: Next dialysis tomorrow on February 13. Hemoglobin remains low patient is due for another transfusion today. Continue per current treatment plan. February 11: Patient was dialyzed yesterday. Labs reviewed. Hemoglobin low. Due for transfusion. Next dialysis February 13, unless she needs it earlier. Medications are reviewed. Metoprolol dose increased. February 10: Patient due for dialysis today February 10. No labs drawn today. Will check renal parameters tomorrow. Continue per consultants. Patient anemic, transfusion is suggested. Patient dialyzed February 08, late night, for potassium of 7.4. Will give Kayexalate for high potassium as needed Adjust blood pressure medication. Folate supplement. Due for transfusion. Per orders. Subjective ROS Limited/Unobtainable: No Constitutional: Reports: malaise, weakness Objective Objective Last 24 Hour Vital Signs Date Time Temp Pulse Resp B/P (MAP) Pulse Ox O2 Delivery O2 Flow Rate FiO2 02/18/20 09:00 Room Air 02/18/20 08:48 63 158/84 02/18/20 08:47 63 158/84 02/18/20 08:00 98.4 63 18 158/84 (108) 94 02/18/20 06:50 97.9 02/18/20 06:20 158/90 02/18/20 04:08 97.9 68 18 158/90 (112) 97 02/18/20 00:28 98.2 60 18 150/78 (102) 98 02/17/20 20:57 67 144/90 02/17/20 20:57 144/90 02/17/20 20:33 Room Air 02/17/20 20:27 98.8 67 18 144/90 (108) 95 02/17/20 16:00 98.0 70 18 140/78 (98) 98 02/17/20 13:18 156/80 02/17/20 12:00 98.2 65 18 156/80 (105) 98 Intake and Output 02/17/20 02/18/20 19:00 07:00 Intake Total 800 ml 160 ml Balance 800 ml 160 ml Intake Oral 800 ml IV Total 60 ml Other 100 ml # Voids 4 1 Current Medications Medications (Trade) Dose Ordered Sig/Rochelle Route PRN Reason Start Time Stop Time Status Last Admin Dose Admin Acetaminophen (Tylenol) 650 mg Q4H PRN ORAL Mild Pain (Pain Scale 1-3) 02/14/20 09:00 03/11/20 08:59 Alprazolam (Xanax) 0.5 mg Q6H PRN ORAL For Anxiety 02/16/20 22:30 02/23/20 22:29 02/18/20 03:49 Amlodipine Besylate (Norvasc) 10 mg DAILY ORAL 02/14/20 09:00 03/11/20 08:59 02/17/20 08:58 Clonidine HCl (Catapres Tab) 0.1 mg Q4H PRN ORAL For BP above 165 systolic 02/14/20 09:00 05/09/20 08:59 Diphenhydramine HCl (Benadryl) 25 mg Q6H PRN IVP Itching 02/14/20 14:30 03/14/20 14:29 02/18/20 06:20 Docusate Sodium (Colace) 100 mg TID ORAL 02/14/20 09:00 03/10/20 17:59 02/18/20 08:17 Epoetin Jose (Epoetin Jose(ESRD on dialysis)) 2,000 unit SUBQ 02/16/20 21:00 05/16/20 20:59 02/16/20 21:45 Epoetin Jose (Epoetin Jose(ESRD on dialysis)) 3,000 unit SUBQ 02/16/20 21:00 05/16/20 20:59 02/16/20 21:45 Folic Acid (Folate) 2 mg DAILY ORAL 02/14/20 09:00 03/11/20 09:59 02/18/20 08:17 Hydralazine HCl (Apresoline) 50 mg Q8HR ORAL 02/14/20 14:00 05/09/20 17:59 02/18/20 06:20 Hydromorphone HCl (Dilaudid) 1 mg Q4H PRN IVP Severe Pain (Pain Scale 7-10) 02/18/20 10:45 02/25/20 10:44 02/18/20 10:38 Iron Sucrose 100 mg/Sodium Chloride 60 ml @ 240 mls/hr BEDTIME IV 02/16/20 21:00 02/20/20 21:14 02/17/20 20:57 Magnesium Hydroxide (Mom) 30 ml DAILYPRN PRN ORAL Constipation 02/14/20 09:00 03/14/20 08:59 02/18/20 03:46 Metoprolol Tartrate (Lopressor) 50 mg Q12HR ORAL 02/14/20 09:00 05/12/20 08:59 02/17/20 20:57 Ondansetron HCl (Zofran) 4 mg Q6H PRN IV Nausea & Vomiting 02/14/20 14:30 03/10/20 14:29 02/18/20 08:27 Pantoprazole (Protonix) 40 mg BID ORAL 02/14/20 09:00 03/10/20 17:59 02/18/20 08:17 Sevelamer Carbonate (Renvela) 2,400 mg THREE TIMES A DAY ORAL 02/14/20 09:00 05/09/20 17:59 02/18/20 08:18 Vancomycin HCl ([facility] pharmacy to dose) 1 ea DAILY PRN MISC Per rx protocol 02/14/20 09:00 03/12/20 17:14 Laboratory Tests 02/18/20 05:30: White Blood Count 3.6L, Red Blood Count 2.23L, Hemoglobin 6.6*L, Hematocrit 20.7L, Mean Corpuscular Volume 93, Mean Corpuscular Hemoglobin 29.6, Mean Corpuscular Hemoglobin Concent 31.9L, Red Cell Distribution Width 13.1, Platelet Count 129L, Mean Platelet Volume 7.1, Neutrophils (%) (Auto) , Lymphocytes (%) (Auto) , Monocytes (%) (Auto) , Eosinophils (%) (Auto) , Basophils (%) (Auto) , Neutrophils % (Manual) [Pending], Lymphocytes % (Manual) [Pending], Platelet Estimate [Pending], Platelet Morphology [Pending], Prothrombin Time 11.9H, Prothromb Time International Ratio 1.1, Activated Partial Thromboplast Time 33, Sodium Level 126L, Potassium Level 5.1, Chloride Level 91L, Carbon Dioxide Level 28, Anion Gap 7, Blood Urea Nitrogen 50H, Creatinine 10.6H, Estimat Glomerular Filtration Rate 4.4, Glucose Level 86, Uric Acid 5.8, Calcium Level 8.0L, Total Bilirubin 0.3, Aspartate Amino Transf ( AST/SGOT) 25, Alanine Aminotransferase (ALT/SGPT) 14, Alkaline Phosphatase 60, C -Reactive Protein, Quantitative < 0.4, Pro-B-Type Natriuretic Peptide [id number], Total Protein 7.2, Albumin 2.6L, Globulin 4.6, Albumin/Globulin Ratio 0.6L Height (Feet): 5 Height (Inches): 8.00 Weight (Pounds): 172 General Appearance: no apparent distress, lethargic Cardiovascular: tachycardia Respiratory/Chest: decreased breath sounds Abdomen: soft Objective No change Jack Pryor MD Feb 18, 2020 10:49
--- NOTE | 2020-02-18 10:59 | Infectious Diseases Prog Note ---
"Assessment/Plan Assessment/Plan antibiotics : vancomycin iv A 1. staph aureus sepsis s/p catheter removal 2. bartholins cyst infection with proteus | enterococcus s/p drainage 3. Hypertension. 4. HIV. 5. Hepatitis C. 6. Renal failure. 7. COVID 19 negative PLAN: 1. Continue IV vancomycin 6 more days 2. We will follow up cultures Subjective Constitutional: Denies: fever, chills Respiratory: Denies: shortness of breath, dry cough Gastrointestinal/Abdominal: Reports: nausea, vomiting - yesterday Musculoskeletal: Reports: pain Allergies: Coded Allergies: ASPIRIN (Unverified Allergy, Unknown, 01/16/20) IODINE (Verified Allergy, Unknown, 01/07/20) Uncoded Allergies: CONTRAST DYE (Allergy, Unknown, 01/07/20) Objective Last 24 Hour Vital Signs Date Time Temp Pulse Resp B/P (MAP) Pulse Ox O2 Delivery O2 Flow Rate FiO2 02/18/20 09:00 Room Air 02/18/20 08:48 63 158/84 02/18/20 08:47 63 158/84 02/18/20 08:00 98.4 63 18 158/84 (108) 94 02/18/20 06:50 97.9 02/18/20 06:20 158/90 02/18/20 04:08 97.9 68 18 158/90 (112) 97 02/18/20 00:28 98.2 60 18 150/78 (102) 98 02/17/20 20:57 67 144/90 02/17/20 20:57 144/90 02/17/20 20:33 Room Air 02/17/20 20:27 98.8 67 18 144/90 (108) 95 02/17/20 16:00 98.0 70 18 140/78 (98) 98 02/17/20 13:18 156/80 02/17/20 12:00 98.2 65 18 156/80 (105) 98 Height (Feet): 5 Height (Inches): 8.00 Weight (Pounds): 172 Respiratory/Chest: lungs clear Cardiovascular: normal rate, regular rhythm, no gallop/murmur Abdomen: soft, non tender Extremities: no edema Microbiology Date/Time Source Procedure Growth Status 02/16/20 10:20 Blood Blood Culture - Preliminary NO GROWTH AFTER 24 HOURS Resulted 02/16/20 10:10 Blood Blood Culture - Preliminary NO GROWTH AFTER 24 HOURS Resulted 02/15/20 14:40 Catheter Site Catheter Tip Culture - Preliminary NO GROWTH AFTER 48 HOURS Resulted Laboratory Tests Test 02/18/20 05:30 White Blood Count 3.6 K/UL (4.8-10.8) L Red Blood Count 2.23 M/UL (4.20-5.40) L Hemoglobin 6.6 G/DL (12.0-16.0) *L Hematocrit 20.7 % (37.0-47.0) L Mean Corpuscular Volume 93 FL (80-99) Mean Corpuscular Hemoglobin 29.6 PG (27.0-31.0) Mean Corpuscular Hemoglobin Concent 31.9 G/DL (32.0-36.0) L Red Cell Distribution Width 13.1 % (11.6-14.8) Platelet Count 129 K/UL (150-450) L Mean Platelet Volume 7.1 FL (6.5-10.1) Neutrophils (%) (Auto) % (45.0-75.0) Lymphocytes (%) (Auto) % (20.0-45.0) Monocytes (%) (Auto) % (1.0-10.0) Eosinophils (%) (Auto) % (0.0-3.0) Basophils (%) (Auto) % (0.0-2.0) Neutrophils % (Manual) Pending Lymphocytes % (Manual) Pending Platelet Estimate Pending Platelet Morphology Pending Prothrombin Time 11.9 SEC (9.30-11.50) H Prothromb Time International Ratio 1.1 (0.9-1.1) Activated Partial Thromboplast Time 33 SEC (23-33) Sodium Level 126 MMOL/L (136-145) L Potassium Level 5.1 MMOL/L (3.5-5.1) Chloride Level 91 MMOL/L (98-107) L Carbon Dioxide Level 28 MMOL/L (21-32) Anion Gap 7 mmol/L (5-15) Blood Urea Nitrogen 50 mg/dL (7-18) H Creatinine 10.6 MG/DL (0.55-1.30) H Estimat Glomerular Filtration Rate 4.4 mL/min (>60) Glucose Level 86 MG/DL (74-106) Uric Acid 5.8 MG/DL (2.6-7.2) Calcium Level 8.0 MG/DL (8.5-10.1) L Total Bilirubin 0.3 MG/DL (0.2-1.0) Aspartate Amino Transf (AST/SGOT) 25 U/L (15-37) Alanine Aminotransferase (ALT/SGPT) 14 U/L (12-78) Alkaline Phosphatase 60 U/L (46-116) C-Reactive Protein, Quantitative < 0.4 mg/dL (0.00-0.90) Pro-B-Type Natriuretic Peptide 05104 pg/mL (0-125) H Total Protein 7.2 G/DL (6.4-8.2) Albumin 2.6 G/DL (3.4-5.0) L Globulin 4.6 g/dL Albumin/Globulin Ratio 0.6 (1.0-2.7) L Current Medications Medications (Trade) Dose Ordered Sig/Rochelle Route PRN Reason Start Time Stop Time Status Last Admin Dose Admin Acetaminophen (Tylenol) 650 mg Q4H PRN ORAL Mild Pain (Pain Scale 1-3) 02/14/20 09:00 03/11/20 08:59 Alprazolam (Xanax) 0.5 mg Q6H PRN ORAL For Anxiety 02/16/20 22:30 02/23/20 22:29 02/18/20 03:49 Amlodipine Besylate (Norvasc) 10 mg DAILY ORAL 02/14/20 09:00 03/11/20 08:59 02/17/20 08:58 Clonidine HCl (Catapres Tab) 0.1 mg Q4H PRN ORAL For BP above 165 systolic 02/14/20 09:00 05/09/20 08:59 Diphenhydramine HCl (Benadryl) 25 mg Q6H PRN IVP Itching 02/14/20 14:30 03/14/20 14:29 02/18/20 06:20 Docusate Sodium (Colace) 100 mg TID ORAL 02/14/20 09:00 03/10/20 17:59 02/18/20 08:17 Epoetin Jose (Epoetin Jose(ESRD on dialysis)) 2,000 unit FRI-FRI-FRI SUBQ 02/16/20 21:00 05/16/20 20:59 02/16/20 21:45 Epoetin Jose (Epoetin Jose(ESRD on dialysis)) 3,000 unit FRI-FRI-FRI SUBQ 02/16/20 21:00 05/16/20 20:59 02/16/20 21:45 Folic Acid (Folate) 2 mg DAILY ORAL 02/14/20 09:00 03/11/20 09:59 02/18/20 08:17 Hydralazine HCl (Apresoline) 50 mg Q8HR ORAL 02/14/20 14:00 05/09/20 17:59 02/18/20 06:20 Hydromorphone HCl (Dilaudid) 1 mg Q4H PRN IVP Severe Pain (Pain Scale 7-10) 02/18/20 10:45 02/25/20 10:44 02/18/20 10:38 Iron Sucrose 100 mg/Sodium Chloride 60 ml @ 240 mls/hr BEDTIME IV 02/16/20 21:00 02/20/20 21:14 02/17/20 20:57 Magnesium Hydroxide (Mom) 30 ml DAILYPRN PRN ORAL Constipation 02/14/20 09:00 03/14/20 08:59 02/18/20 03:46 Metoprolol Tartrate (Lopressor) 50 mg Q12HR ORAL 02/14/20 09:00 05/12/20 08:59 02/17/20 20:57 Ondansetron HCl (Zofran) 4 mg Q6H PRN IV Nausea & Vomiting 02/14/20 14:30 03/10/20 14:29 02/18/20 08:27 Pantoprazole (Protonix) 40 mg BID ORAL 02/14/20 09:00 03/10/20 17:59 02/18/20 08:17 Sevelamer Carbonate (Renvela) 2,400 mg THREE TIMES A DAY ORAL 02/14/20 09:00 05/09/20 17:59 02/18/20 08:18 Vancomycin HCl ([facility] pharmacy to dose) 1 ea DAILY PRN MISC Per rx protocol 02/14/20 09:00 03/12/20 17:14 Elvis Garibay MD Feb 18, 2020 10:59"
--- NOTE | 2020-02-18 12:51 | NUR ---
NURSE NOTES: Radiology will olive picker patient for tunnel cath placement at 1330. consent signed. IV on LFA 22 and LH 24 intact. held BP medications for HD in the afternoon. patient A&Ox4, verbally responsive. no SOB at this time.
[2020-02-18] MEDS ORDERED: Lidocaine 1% 10mg/ml/EPI 0.01mg/ml 30ml INJ PRN ×2 (13:15)
[2020-02-18] MEDS ORDERED: Heparin1,000 units/500ml Premix(Conc:2 units/ml) IV PRN (13:15)
--- NOTE | 2020-02-18 13:40 | Pre-Procedure Note/Attestation ---
Pre-Procedure Note/Attestation Complete Prior to Procedure Planned Procedure: not applicable Procedure Narrative: permacath Indications for Procedure Pre-Operative Diagnosis: renal failure Attestation I attest that I discussed the nature of the procedure; its benefits; risks and complications; and alternatives (and the risks and benefits of such alternatives ), prior to the procedure, with the patient (or the patient's legal district representative). I attest that, if there was a reasonable possibility of needing a blood transfusion, the patient (or the patient's legal district representative) was given the [facility] standardized written summary, pursuant to the [place] Blood Safety Act ([place] Health and Safety Code # 1645, as amended). I attest that I re-evaluated the patient just prior to the surgery and that there has been no change in the patient's H&P, except as documented below: Haile Luciano MD Feb 18, 2020 13:40
--- NOTE | 2020-02-18 13:42 | NUR ---
CASE MANAGEMENT:REVIEW SI;STAPH AUREUS SEPSIS. RT CHEST PERMACATH INFECTION. ESRD on HD. 98.4 57 18 162/80 94% ON RA WBC 3.6 H/H 6.6/20.7 PLT 129 NA 126 BUN 50 CR 10.6 BNP 36578 IS;IRON SUCROSE IV HS DILAUDID IV HYDRALAZINE PO Q6 PROTONIX PO BID PERMACATH REPLACEMENT ~ IN SURGERY NOW MED SURG STATUS DCP;PATIENT IS FROM HOME PLAN; HD TODAY TRANSFUSE 2 UNITS PRBC DURING HD
--- NOTE | 2020-02-18 14:40 | Surgery Progress Note ---
Surgery Progress Note Subjective Procedure Performed removal of infected right chest wall tunneled hemodialysis catheter Additional Comments plan for new temp HD cath today labs noted anemia ?prbc with HD will defer to renal Objective Last 24 Hour Vital Signs Date Time Temp Pulse Resp B/P (MAP) Pulse Ox O2 Delivery O2 Flow Rate FiO2 02/18/20 14:19 66 15 02/18/20 14:00 66 15 181/98 (125) 97 02/18/20 13:49 69 18 185/101 (129) 99 02/18/20 12:00 97.9 57 18 162/80 (107) 94 02/18/20 09:00 Room Air 02/18/20 08:48 63 158/84 02/18/20 08:47 63 158/84 02/18/20 08:00 98.4 63 18 158/84 (108) 94 02/18/20 06:50 97.9 02/18/20 06:20 158/90 02/18/20 04:08 97.9 68 18 158/90 (112) 97 02/18/20 00:28 98.2 60 18 150/78 (102) 98 02/17/20 20:57 67 144/90 02/17/20 20:57 144/90 02/17/20 20:33 Room Air 02/17/20 20:27 98.8 67 18 144/90 (108) 95 02/17/20 16:00 98.0 70 18 140/78 (98) 98 I&O Intake and Output 02/17/20 02/18/20 19:00 07:00 Intake Total 800 ml 160 ml Balance 800 ml 160 ml Intake Oral 800 ml IV Total 60 ml Other 100 ml # Voids 4 1 Dressing: other Wound: other Drains: other Cardiovascular: RSR Respiratory: decreased breath sounds Abdomen: soft, non-tender, present bowel sounds Extremities: no tenderness, no cyanosis Laboratory Tests Test 02/18/20 00:00 02/18/20 05:30 HIV-1 Antibody Pending HIV-2 Antibody Pending White Blood Count 3.6 K/UL (4.8-10.8) L Red Blood Count 2.23 M/UL (4.20-5.40) L Hemoglobin 6.6 G/DL (12.0-16.0) *L Hematocrit 20.7 % (37.0-47.0) L Mean Corpuscular Volume 93 FL (80-99) Mean Corpuscular Hemoglobin 29.6 PG (27.0-31.0) Mean Corpuscular Hemoglobin Concent 31.9 G/DL (32.0-36.0) L Red Cell Distribution Width 13.1 % (11.6-14.8) Platelet Count 129 K/UL (150-450) L Mean Platelet Volume 7.1 FL (6.5-10.1) Neutrophils (%) (Auto) % (45.0-75.0) Lymphocytes (%) (Auto) % (20.0-45.0) Monocytes (%) (Auto) % (1.0-10.0) Eosinophils (%) (Auto) % (0.0-3.0) Basophils (%) (Auto) % (0.0-2.0) Differential Total Cells Counted 100 Neutrophils % (Manual) 70 % (45-75) Lymphocytes % (Manual) 14 % (20-45) L Monocytes % (Manual) 9 % (1-10) Eosinophils % (Manual) 7 % (0-3) H Basophils % (Manual) 0 % (0-2) Band Neutrophils 0 % (0-8) Platelet Estimate Decreased L Platelet Morphology Normal Hypochromasia 4+ Anisocytosis 1+ Prothrombin Time 11.9 SEC (9.30-11.50) H Prothromb Time International Ratio 1.1 (0.9-1.1) Activated Partial Thromboplast Time 33 SEC (23-33) Sodium Level 126 MMOL/L (136-145) L Potassium Level 5.1 MMOL/L (3.5-5.1) Chloride Level 91 MMOL/L (98-107) L Carbon Dioxide Level 28 MMOL/L (21-32) Anion Gap 7 mmol/L (5-15) Blood Urea Nitrogen 50 mg/dL (7-18) H Creatinine 10.6 MG/DL (0.55-1.30) H Estimat Glomerular Filtration Rate 4.4 mL/min (>60) Glucose Level 86 MG/DL (74-106) Uric Acid 5.8 MG/DL (2.6-7.2) Calcium Level 8.0 MG/DL (8.5-10.1) L Total Bilirubin 0.3 MG/DL (0.2-1.0) Aspartate Amino Transf (AST/SGOT) 25 U/L (15-37) Alanine Aminotransferase (ALT/SGPT) 14 U/L (12-78) Alkaline Phosphatase 60 U/L (46-116) C-Reactive Protein, Quantitative < 0.4 mg/dL (0.00-0.90) Pro-B-Type Natriuretic Peptide 40786 pg/mL (0-125) H Total Protein 7.2 G/DL (6.4-8.2) Albumin 2.6 G/DL (3.4-5.0) L Globulin 4.6 g/dL Albumin/Globulin Ratio 0.6 (1.0-2.7) L Hepatitis B Surface Antibody, Quant Pending Hepatitis C Antibody Pending HIV (1&2) Antibody Rapid Preliminary positive Plan Problems: (1) Anemia (2) Bartholin's gland abscess Assessment & Plan: 69-year-old female Bartholin gland abscess cyst. Status post incision and drainage with drain placement. Drain currently in place and still draining. States that it feels better but continues to hurt. Plan for hemodialysis initiated by senior qa automation engineer. Patient has a catheter in place unlikely infected. We will continue to monitor for local abscess drainage and improvement. Will monitor drain and manage drain accordingly. Okay for warm compress as needed. Pain management Rx written. Trend labs. Antibiotics per ID. May need repeat drainage if does not improve significantly. Thank you for letting participate in patient's care will follow recommendations anemia - transfuse prbc with HD Continue with catheter drainage functional doing well Discussed care plan with the patient Plan for outpatient AIRPLANE NAVIGATOR follow-up on discharge. prbc with HD prn as per renal drain okay KUB in AM bowel regimen - constipated Drain has fallen out. Cellulitis is improved. Nontender no draining okay for drain to be out. Outpatient follow-up plan. Persistent fevers right tunneled 4-year-old permacath removed Discussed with medical team nephrology and radiology plan for new line placement this Friday (3) Hypoglycemia (4) Vulval cellulitis (5) Missed dialysis (6) ESRD (end stage renal disease) on dialysis (7) Hyperkalemia (8) Substance abuse (9) HIV disease (10) HCV antibody positive (11) Weakness (12) Epileptic seizure, generalized Deon Crowe Feb 18, 2020 14:40
[2020-02-18] MEDS ORDERED: ceFAZolin 500 MG in D5W 55 ML IVP SCH (15:00)
[2020-02-18] MEDS ORDERED: ceFAZolin sod 1 GM in D5W 55 ML IVPB SCH (15:00)
--- NOTE | 2020-02-18 15:58 | Brief Operative Note ---
Immediate Post Operative Note Operative Note Pre-op Diagnosis: renal failure Procedure: L IJV permacath Post-op Diagnosis: same as pre-op Surgeon: Anayeli Oden Anesthesia: local Specimen: none Complications: none Fluids: none Implant(s) used?: No Haile Oden MD Feb 18, 2020 15:58
--- NOTE | 2020-02-18 16:10 | NUR ---
NURSE NOTES: BP was decreased to 158/69 after administering Clonidine 0.1mg tab PO PRN for HTN.
--- NOTE | 2020-02-18 17:04 | NUR ---
RADIOLOGY NOTE: JORGE TUNNELED DIALYSIS CATHETER PLACEMENT BY DR. BRENDA CHOU. FA Addendum: 02/18/20 at 1708 by JOSÉ BEST CRT RAD LI Addendum: 02/18/20 at 1709 by JOSÉ BEST CRT RAD JESSE TUNNELED DIALYSIS CATHETER PLACEMENT. MAYUR
--- NOTE | 2020-02-18 17:12 | Diagnostic Imaging Report ---
Indications: Needs long-term dialysis access Technique: Patient given IV Ancef. Total sterile technique, including sterile probe cover and sterile gel, sterile gloves, hand hygiene, hat, mask,, sterile gown, large sterile drape, and preparation with 2% chlorhexidine utilized. Local anesthesia with 1% lidocaine. Under real-time ultrasound guidance, puncture left internal jugular vein using 21-gauge micropuncture needle, passage 0.018 guidewire, exchange for 4 Malaysian micropuncture introducer. The guidewire was used to measure the appropriate catheter length, and was removed. The sheath was left in place. The subcutaneous tract was then anesthetized with 1% lidocaine. A chest dermatotomy was made . The tunneling device was used to pull a 14.5 Malaysian 23 cm Palindrome catheter through the subcutaneous tunnel to the neck dermatotomy. A guidewire was passed through the neck introducer into the inferior vena cava, and serial dilators were passed over it, followed by the introduction of a 14.5 Malaysian AirGuard peel-away sheath. The catheter was then introduced into the sheath, the peel-away sheath was removed. Digital radiograph documents satisfactory catheter tip position in the high right atrium, no kinking at the insertion site. Both catheter ports aspirated and flushed. Catheter was fixed to the skin. Patient tolerated procedure well without immediate complication. Note that initial attempt made at accessing the right internal jugular vein and subsequently the right external jugular vein, neither of which attempts were successful, requiring access into the left internal jugular system Total fluoroscopy time 414 seconds. Total dose area product [id number] mGym2 Total number of images-one Comparison: None. Findings: Completion radiograph documents satisfactory position and course of the catheter, catheter tip at the cavoatrial junction. Impression: Successful placement of left transjugular tunneled dialysis catheter, as described above Evidence of right-sided venoocclusive disease, evidenced by inability to access the superior vena cava via either the right internal jugular or the right external jugular vein
--- NOTE | 2020-02-18 17:30 | NUR ---
pt recieved 1st prbc 250ml with hd temp;98 vital sign stable [id number] to 1800 no reaction noted. pt received 2nd prbc 250ml with hd temp 98 [id number] to 1850 no reaction noted
--- NOTE | 2020-02-18 17:30 | Progress Note ---
DATE: 02/18/2020 CARDIOLOGY PROGRESS NOTE SUBJECTIVE: No new complaints. Remains on iron and Epogen therapies. She is getting transfused for low hemoglobin range below 7 as needed. She denies shortness of breath or chest pain and has less vaginal pain at the site of her prior Bartholin cyst with no bleeding noted. PHYSICAL EXAMINATION: VITAL SIGNS: Blood pressure 158/84, pulse 63, respirations 18. LUNGS: Clear. CARDIAC: Regular. Normal S1, S2 with a fourth heart sound. ABDOMEN: Soft. EXTREMITIES: No edema. LABORATORY DATA: White count 3.6, hemoglobin 6.6. Potassium 5.1, sodium 126, bicarb 28, BUN 50, creatinine 10.6. Pro-natriuretic peptide 23,000. IMPRESSION: 1. Anemia, multifactorial. 2. Bacteremia due to dialysis catheter, now removed. Low likelihood for endocarditis based on current diagnostic studies, namely echocardiogram. 3. End-stage renal disease. 4. Hypertensive heart disease with elevated blood pressure range. 5. Cocaine abuse. PLAN: 1. Replace dialysis catheter today. Subsequent hemodialysis with ultrafiltration and transfusion of packed red blood cell. 2. Advance antihypertensives. 3. Discharge planning to follow. 4. Continue antimicrobials per Infectious Disease fashion consultant sales. Nam Barnett M.D. : SUPA JOB#: [id number] CC:
--- NOTE | 2020-02-18 19:09 | NUR ---
HAND-OFF: Report given to MARTIN Greenwood.
--- NOTE | 2020-02-18 19:50 | NUR ---
NURSE NOTES: Received report from Magdiel RN and Claritza RN. The patient is presently undergoing dialysis in her room with resp even and unlabored and does not appear to be in any acute distress at this time. She has a left upper chest peamicath access for dialysis and a R. hand 24g saline log that is patent and asymptomatic. Call light within easy reach and will continue to monitor
[2020-02-18] MEDS: Iron Sucrose 100 MG in NS 55 ML IV SCH (20:50)
[2020-02-18] MEDS: Epoetin Alfa-EPBX(ESRD on dialysis)2000 units/ml vial SUBQ SCH (20:52)
[2020-02-18] MEDS: Epoetin Alfa-EPBX(ESRD on dialysis)3000 units/ml vial SUBQ SCH (20:52)
[2020-02-19] VITALS: BP 170/82
[2020-02-19] MEDS: HYDROmorphone 1mg/ml Carpuject IVP PRN ×5 (02:23→21:05)
--- NOTE | 2020-02-19 02:39 | NUR ---
NURSE NOTES: The patient completed her dialysis last night, had some episodes of anxiety and inability to relaxed also noted complaining of severed pain. She was given her PRN Dilaudid and Xanax and she was able to fall asleep. The patient blood pressure was also running high and she was given Clonidine as indicated well tolerated. will continue to monitor
[2020-02-19 04:00] VITALS: BP 122/78
[2020-02-19] MEDS: HydrALAZINE 50mg tab ORAL SCH ×3 (06:42→17:04)
--- NOTE | 2020-02-19 07:25 | NUR ---
HAND-OFF: Report given to Valentina SALAZAR.
[2020-02-19 07:26] LABS: HEMATOCRIT 24.7 % (37.0-47.0); HEMOGLOBIN 8.1 G/DL (12.0-16.0); MEAN CORPUSCULAR VOLUME 92 FL (80-99); PLATELET COUNT 112 K/UL (150-450); RED BLOOD COUNT 2.68 M/UL (4.20-5.40); RED CELL DISTRIBUTION WIDTH 13.7 % (11.6-14.8); WHITE BLOOD COUNT 2.9 K/UL (4.8-10.8)
[2020-02-19 07:39] LABS: ALBUMIN 2.8 G/DL (3.4-5.0); ALBUMIN/GLOBULIN RATIO 0.6 (1.0-2.7); ALKALINE PHOSPHATASE 66 U/L (46-116); ANION GAP 4 mmol/L (5-15); ASPARTATE AMINO TRANSFERASE 22 U/L (15-37); BILIRUBIN,TOTAL 0.3 MG/DL (0.2-1.0); BLOOD UREA NITROGEN 25 mg/dL (7-18); CALCIUM 7.8 MG/DL (8.5-10.1); CARBON DIOXIDE 33 MMOL/L (21-32); CHLORIDE 97 MMOL/L (98-107); CREATININE 6.7 MG/DL (0.55-1.30); POTASSIUM 4.3 MMOL/L (3.5-5.1); SODIUM 134 MMOL/L (136-145)
--- NOTE | 2020-02-19 07:46 | NUR ---
NURSE NOTES: Patient, awake, alert x4; on room air, no sing of shortness of breath; no sing of chest pain; IV Right Hand TKO; Hemodialysis access on Left Chest double lumen PermCath, patient dialyzed yesterday; patient complaining of pain, pain medications already given by PM nurse; side rails up x2, breaks engaged, bed at lowest position, bed alarm on; call light within reach; will keep monitoring.
[2020-02-19 07:50] LABS: PHOSPHORUS 3.5 MG/DL (2.5-4.9)
[2020-02-19 07:54] LABS: ALANINE AMINOTRANSFERASE 10 U/L (12-78)
[2020-02-19 08:00] VITALS: BP 151/79
[2020-02-19] MEDS: Docusate 100mg cap ORAL SCH ×3 (08:32→17:04)
[2020-02-19] MEDS: Renvela 2400 mg pkt ORAL SCH ×3 (08:33→17:04)
[2020-02-19] MEDS: Metoprolol Tartrate 50mg tab ORAL SCH ×2 (08:33→21:04)
[2020-02-19] MEDS: DiphenhydrAMINE 50mg/ml Inj IVP PRN ×2 (08:34→21:12)
--- NOTE | 2020-02-19 09:31 | General Progress Note ---
Assessment/Plan Problem List: (1) Epileptic seizure, generalized ICD Codes: G40.309 - Generalized idiopathic epilepsy and epileptic syndromes, not intractable, without status epilepticus SNOMED: 94596655 (2) Weakness ICD Codes: R53.1 - Weakness SNOMED: 35147528 (3) HIV disease ICD Codes: B20 - Human immunodeficiency virus [HIV] disease SNOMED: 68717538 (4) Substance abuse ICD Codes: F19.10 - Other psychoactive substance abuse, uncomplicated SNOMED: 62753509 (5) Bartholin's gland abscess ICD Codes: N75.1 - Abscess of Bartholin's gland SNOMED: 59504584 (6) Hypoglycemia ICD Codes: E16.2 - Hypoglycemia, unspecified SNOMED: 574053873 Status: stable Assessment/Plan: cont iv abx HD per renal monitor h/h transfuse as needed epo and iron replacement dvt/stress ulcer prophylaxis. pain rx dc planning to snf Subjective ROS Limited/Unobtainable: No Constitutional: Reports: malaise, weakness HEENT: Reports: no symptoms Cardiovascular: Reports: no symptoms Respiratory: Reports: no symptoms Gastrointestinal/Abdominal: Reports: no symptoms Genitourinary: Reports: no symptoms Neurologic/Psychiatric: Reports: no symptoms Endocrine: Reports: no symptoms Hematologic/Lymphatic: Reports: no symptoms Allergies: Coded Allergies: ASPIRIN (Unverified Allergy, Unknown, 01/16/20) IODINE (Verified Allergy, Unknown, 01/07/20) Uncoded Allergies: CONTRAST DYE (Allergy, Unknown, 01/07/20) All Systems: reviewed and negative except above Subjective no new complaints. no fever or chills. no sob. tolerating po. HD catheter replaced. s/p prbc transfusion. remains on iv abx. c/o generalized pain. no melena or brbpr Objective Last 24 Hour Vital Signs Date Time Temp Pulse Resp B/P (MAP) Pulse Ox O2 Delivery O2 Flow Rate FiO2 02/19/20 08:33 57 151/79 02/19/20 08:33 57 151/79 02/19/20 08:00 97.9 57 18 151/79 (103) 95 02/19/20 06:42 122/78 02/19/20 04:00 99.0 79 18 122/78 (93) 97 02/19/20 00:00 99.5 78 20 170/82 (111) 99 7/17/20 23:37 170/82 02/18/20 23:33 170/82 02/18/20 21:00 Room Air 02/18/20 20:51 61 155/92 02/18/20 20:00 98.6 61 21 155/92 (113) 93 02/18/20 18:00 158/83 02/18/20 16:00 98.6 68 19 158/83 (108) 94 02/18/20 15:36 188/94 02/18/20 15:23 77 18 02/18/20 14:56 77 18 188/94 (125) 97 02/18/20 14:19 66 15 02/18/20 14:00 66 15 181/98 (125) 97 02/18/20 13:49 69 18 185/101 (129) 99 02/18/20 12:00 97.9 57 18 162/80 (107) 94 Intake and Output 02/18/20 02/19/20 19:00 07:00 Intake Total 720 ml 730 ml Output Total 2000 ml Balance 720 ml -1270 ml Intake Oral 720 ml 730 ml Hemodialysis UF 2000 ml # Voids 2 2 Laboratory Tests 02/19/20 06:00: White Blood Count 2.9L, Red Blood Count 2.68L, Hemoglobin 8.1L, Hematocrit 24.7L , Mean Corpuscular Volume 92, Mean Corpuscular Hemoglobin 30.3, Mean Corpuscular Hemoglobin Concent 33.0, Red Cell Distribution Width 13.7, Platelet Count 112L, Mean Platelet Volume 7.0, Neutrophils (%) (Auto) , Lymphocytes (%) ( Auto) , Monocytes (%) (Auto) , Eosinophils (%) (Auto) , Basophils (%) (Auto) , Differential Total Cells Counted 100, Neutrophils % (Manual) 68, Lymphocytes % ( Manual) 16L, Monocytes % (Manual) 12H, Eosinophils % (Manual) 3, Basophils % ( Manual) 1, Band Neutrophils 0, Platelet Estimate DecreasedL, Platelet Morphology Normal, Hypochromasia 2+, Anisocytosis 1+, Sodium Level 134L, Potassium Level 4.3, Chloride Level 97L, Carbon Dioxide Level 33H, Anion Gap 4L , Blood Urea Nitrogen 25H, Creatinine 6.7H, Estimat Glomerular Filtration Rate 7.5, Glucose Level 90, Calcium Level 7.8L, Phosphorus Level 3.5, Magnesium Level 2.6H, Total Bilirubin 0.3, Aspartate Amino Transf (AST/SGOT) 22, Alanine Aminotransferase (ALT/SGPT) 10L, Alkaline Phosphatase 66, C-Reactive Protein, Quantitative 0.6, Pro-B-Type Natriuretic Peptide 07343O, Total Protein 7.5, Albumin 2.8L, Globulin 4.7, Albumin/Globulin Ratio 0.6L, Random Vancomycin Level 14.7 Height (Feet): 5 Height (Inches): 8.00 Weight (Pounds): 172 Objective General Appearance: WD/WN, lethargic EENT: PERRL/EOMI, normal ENT inspection Neck: non-tender, normal alignment Cardiovascular: normal peripheral pulses, normal rate, regular rhythm Respiratory/Chest: chest wall non-tender, lungs clear, normal breath sounds Abdomen: normal bowel sounds, non tender, soft, no organomegaly Extremities: normal range of motion Edema: no edema noted Arm (L), no edema noted Arm (R) Neurologic: tobacco packer II-XII grossly normal, no motor/sensory deficits, abnormal gait , alert, oriented x 3, responsive Michael Peralta MD Feb 19, 2020 09:31
[2020-02-19] MEDS ORDERED: Vancomycin 1gm/D5W 275ml IVPB ONE ×2 (10:00)
--- NOTE | 2020-02-19 10:58 | Infectious Diseases Prog Note ---
"Assessment/Plan Assessment/Plan antibiotics : vancomycin iv, ancef A 1. staph aureus sepsis s/p catheter removal 2. bartholins cyst infection with proteus | enterococcus s/p drainage 3. Hypertension. 4. HIV. 5. Hepatitis C. 6. Renal failure. 7. COVID 19 negative PLAN: 1. Continue IV vancomycin 5 more days 2. d/c ancef 3. We will follow up cultures Subjective ROS Limited/Unobtainable: Yes Allergies: Coded Allergies: ASPIRIN (Unverified Allergy, Unknown, 01/16/20) IODINE (Verified Allergy, Unknown, 01/07/20) Uncoded Allergies: CONTRAST DYE (Allergy, Unknown, 01/07/20) Objective Last 24 Hour Vital Signs Date Time Temp Pulse Resp B/P (MAP) Pulse Ox O2 Delivery O2 Flow Rate FiO2 02/19/20 09:00 Room Air 02/19/20 08:33 57 151/79 02/19/20 08:33 57 151/79 02/19/20 08:00 97.9 57 18 151/79 (103) 95 02/19/20 06:42 122/78 02/19/20 04:00 99.0 79 18 122/78 (93) 97 02/19/20 00:00 99.5 78 20 170/82 (111) 99 02/18/20 23:37 170/82 02/18/20 23:33 170/82 02/18/20 21:00 Room Air 02/18/20 20:51 61 155/92 02/18/20 20:00 98.6 61 21 155/92 (113) 93 02/18/20 18:00 158/83 02/18/20 16:00 98.6 68 19 158/83 (108) 94 02/18/20 15:36 188/94 02/18/20 15:23 77 18 02/18/20 14:56 77 18 188/94 (125) 97 02/18/20 14:19 66 15 02/18/20 14:00 66 15 181/98 (125) 97 02/18/20 13:49 69 18 185/101 (129) 99 02/18/20 12:00 97.9 57 18 162/80 (107) 94 Height (Feet): 5 Height (Inches): 8.00 Weight (Pounds): 172 Respiratory/Chest: lungs clear Cardiovascular: normal rate, regular rhythm, no gallop/murmur Abdomen: soft, non tender Extremities: no edema Laboratory Tests Test 02/19/20 06:00 White Blood Count 2.9 K/UL (4.8-10.8) L Red Blood Count 2.68 M/UL (4.20-5.40) L Hemoglobin 8.1 G/DL (12.0-16.0) L Hematocrit 24.7 % (37.0-47.0) L Mean Corpuscular Volume 92 FL (80-99) Mean Corpuscular Hemoglobin 30.3 PG (27.0-31.0) Mean Corpuscular Hemoglobin Concent 33.0 G/DL (32.0-36.0) Red Cell Distribution Width 13.7 % (11.6-14.8) Platelet Count 112 K/UL (150-450) L Mean Platelet Volume 7.0 FL (6.5-10.1) Neutrophils (%) (Auto) % (45.0-75.0) Lymphocytes (%) (Auto) % (20.0-45.0) Monocytes (%) (Auto) % (1.0-10.0) Eosinophils (%) (Auto) % (0.0-3.0) Basophils (%) (Auto) % (0.0-2.0) Differential Total Cells Counted 100 Neutrophils % (Manual) 68 % (45-75) Lymphocytes % (Manual) 16 % (20-45) L Monocytes % (Manual) 12 % (1-10) H Eosinophils % (Manual) 3 % (0-3) Basophils % (Manual) 1 % (0-2) Band Neutrophils 0 % (0-8) Platelet Estimate Decreased L Platelet Morphology Normal Hypochromasia 2+ Anisocytosis 1+ Sodium Level 134 MMOL/L (136-145) L Potassium Level 4.3 MMOL/L (3.5-5.1) Chloride Level 97 MMOL/L (98-107) L Carbon Dioxide Level 33 MMOL/L (21-32) H Anion Gap 4 mmol/L (5-15) L Blood Urea Nitrogen 25 mg/dL (7-18) H Creatinine 6.7 MG/DL (0.55-1.30) H Estimat Glomerular Filtration Rate 7.5 mL/min (>60) Glucose Level 90 MG/DL (74-106) Calcium Level 7.8 MG/DL (8.5-10.1) L Phosphorus Level 3.5 MG/DL (2.5-4.9) Magnesium Level 2.6 MG/DL (1.8-2.4) H Total Bilirubin 0.3 MG/DL (0.2-1.0) Aspartate Amino Transf (AST/SGOT) 22 U/L (15-37) Alanine Aminotransferase (ALT/SGPT) 10 U/L (12-78) L Alkaline Phosphatase 66 U/L (46-116) C-Reactive Protein, Quantitative 0.6 mg/dL (0.00-0.90) Pro-B-Type Natriuretic Peptide 55621 pg/mL (0-125) H Total Protein 7.5 G/DL (6.4-8.2) Albumin 2.8 G/DL (3.4-5.0) L Globulin 4.7 g/dL Albumin/Globulin Ratio 0.6 (1.0-2.7) L Random Vancomycin Level 14.7 ug/mL Current Medications Medications (Trade) Dose Ordered Sig/Rochelle Route PRN Reason Start Time Stop Time Status Last Admin Dose Admin Acetaminophen (Tylenol) 650 mg Q4H PRN ORAL Mild Pain (Pain Scale 1-3) 02/14/20 09:00 03/11/20 08:59 Alprazolam (Xanax) 0.5 mg Q6H PRN ORAL For Anxiety 02/16/20 22:30 02/23/20 22:29 02/18/20 23:33 Amlodipine Besylate (Norvasc) 10 mg DAILY ORAL 02/14/20 09:00 03/11/20 08:59 02/19/20 08:33 Cefazolin Sodium 500 mg/Dextrose 55 ml @ 110 mls/hr Q24H IVP 02/18/20 15:00 02/25/20 14:59 02/18/20 15:36 Clonidine HCl (Catapres Tab) 0.1 mg Q4H PRN ORAL For BP above 165 systolic 02/14/20 09:00 05/09/20 08:59 02/18/20 23:33 Diphenhydramine HCl (Benadryl) 25 mg Q6H PRN IVP Itching 02/14/20 14:30 03/14/20 14:29 02/19/20 08:34 Docusate Sodium (Colace) 100 mg TID ORAL 02/14/20 09:00 03/10/20 17:59 02/19/20 08:32 Epoetin Jose (Epoetin Jose(ESRD on dialysis)) 2,000 unit SUBQ 02/16/20 21:00 05/16/20 20:59 02/18/20 20:52 Epoetin Jose (Epoetin Jose(ESRD on dialysis)) 3,000 unit SUBQ 02/16/20 21:00 05/16/20 20:59 02/18/20 20:52 Folic Acid (Folate) 2 mg DAILY ORAL 02/14/20 09:00 03/11/20 09:59 02/19/20 08:32 Heparin Sodium/ Sodium Chloride (Heparin 1000 units/500ml Premix) 1,000 unit ONCE PRN IV catheter flush 02/18/20 13:15 02/20/20 13:14 Hydralazine HCl (Apresoline) 50 mg Q6HR ORAL 02/18/20 18:00 05/18/20 17:59 02/19/20 06:42 Hydromorphone HCl (Dilaudid) 1 mg Q4H PRN IVP Severe Pain (Pain Scale 7-10) 02/18/20 10:45 02/25/20 10:44 02/19/20 06:51 Iron Sucrose 100 mg/Sodium Chloride 60 ml @ 240 mls/hr BEDTIME IV 02/16/20 21:00 02/20/20 21:14 02/18/20 20:50 Lidocaine/ Epinephrine (Lidocaine 1%/ Epi 0.01mg 30ml) 30 ml ONCE PRN INJ local injection 02/18/20 13:15 02/20/20 13:14 Lidocaine/ Epinephrine (Lidocaine 1%/ Epi 0.01mg 30ml) 30 ml ONCE PRN INJ local injection 02/18/20 13:15 02/20/20 13:14 Magnesium Hydroxide (Mom) 30 ml DAILYPRN PRN ORAL Constipation 02/14/20 09:00 03/14/20 08:59 02/18/20 03:46 Metoprolol Tartrate (Lopressor) 50 mg Q12HR ORAL 02/14/20 09:00 05/12/20 08:59 02/19/20 08:33 Ondansetron HCl (Zofran) 4 mg Q6H PRN IV Nausea & Vomiting 02/14/20 14:30 03/10/20 14:29 02/18/20 20:50 Pantoprazole (Protonix) 40 mg BID ORAL 02/14/20 09:00 03/10/20 17:59 02/19/20 08:32 Sevelamer Carbonate (Renvela) 2,400 mg THREE TIMES A DAY ORAL 02/14/20 09:00 05/09/20 17:59 02/19/20 08:33 Vancomycin HCl (Vanco pharmacy to dose) 1 ea DAILY PRN MISC Per rx protocol 02/14/20 09:00 03/12/20 17:14 Vancomycin HCl 1 gm/Dextrose 275 ml @ 183.708 mls/hr ONCE ONCE IVPB 02/19/20 10:00 02/19/20 11:29 02/19/20 10:06 Elvis Garibay MD Feb 19, 2020 10:58"
[2020-02-19 12:00] VITALS: BP 167/71
--- NOTE | 2020-02-19 13:17 | Nephrology Progress Note ---
Assessment/Plan Problem List: (1) ESRD (end stage renal disease) on dialysis (2) Hyperkalemia (3) Bartholin's gland abscess (4) Anemia (5) HCV antibody positive (6) HIV disease (7) Substance abuse Assessment Patient presents with hyperkalemia, anemia and 1 week of no dialysis Previous frequent chest pains. Anemia and evidence of upper GI bleed and [employer] in the past. Patient was on anticoagulation for atrial fibrillation however it is unclear how compliant the patient is. History of frequent hyperkalemia due to missing hemodialysis. End-stage renal disease on hemodialysis. The patient has a right chest permacath which is not dressed and appears to either be infected or very prone to infection. HIV disease. Substance abuse with previous urine test positive for narcotics and cocaine. History of hepatitis C virus. History of hypertensive kidney disease. Plan February 18: Was dialyzed yesterday February 17. Has a new permacath over the left side of the chest. Patient also was transfused yesterday. Anemia improved. Next dialysis February 20Friday. February 17: Last dialysis was February 14. Patient due to have a permacath today and then arrange for dialysis and 2 units of blood transfusion afterwards. Discussed with RN. Labs reviewed. Expect correction of the chemistry panel after dialysis. February 16: Last dialysis February 14. Due for dialysis tomorrow February 17. Due for insertion of a permacath by IR tomorrow. The removed catheter on February 14 has a negative tip culture February 15: Patient last dialyzed February 14. Today's labs reviewed. Discussed with Dr. Crowe. The dialysis catheter was removed yesterday. New catheter will be placed on February 17. 2 sets of blood cultures ordered. Discussed with RN, and charge nurse. February 14: Patient was dialyzed yesterday. Today's labs reviewed. Discussed with PMD. The ID search engine optimization consultant suggest removal of the permacath due to infection. Will arrange for dialysis today. Will remove the permacath after dialysis today. Will reinsert a dialysis catheter 48 hours later. Discussed with RN. Orders in EMR. February 13: Due for dialysis today. Hemoglobin higher after transfusion. Continue per consultants. February 12: Next dialysis tomorrow on February 13. Hemoglobin remains low patient is due for another transfusion today. Continue per current treatment plan. February 11: Patient was dialyzed yesterday. Labs reviewed. Hemoglobin low. Due for transfusion. Next dialysis February 13, unless she needs it earlier. Medications are reviewed. Metoprolol dose increased. February 10: Patient due for dialysis today February 10. No labs drawn today. Will check renal parameters tomorrow. Continue per consultants. Patient anemic, transfusion is suggested. Patient dialyzed February 08, late night, for potassium of 7.4. Will give Kayexalate for high potassium as needed Adjust blood pressure medication. Folate supplement. Due for transfusion. Per orders. Subjective ROS Limited/Unobtainable: No Constitutional: Reports: malaise Objective Objective Last 24 Hour Vital Signs Date Time Temp Pulse Resp B/P (MAP) Pulse Ox O2 Delivery O2 Flow Rate FiO2 02/19/20 12:04 167/71 02/19/20 12:00 97.2 53 18 167/71 (103) 100 02/19/20 09:00 Room Air 02/19/20 08:33 57 151/79 02/19/20 08:33 57 151/79 02/19/20 08:00 97.9 57 18 151/79 (103) 95 02/19/20 06:42 122/78 02/19/20 04:00 99.0 79 18 122/78 (93) 97 02/19/20 00:00 99.5 78 20 170/82 (111) 99 02/18/20 23:37 170/82 02/18/20 23:33 170/82 02/18/20 21:00 Room Air 02/18/20 20:51 61 155/92 02/18/20 20:00 98.6 61 21 155/92 (113) 93 02/18/20 18:00 158/83 02/18/20 16:00 98.6 68 19 158/83 (108) 94 02/18/20 15:36 188/94 02/18/20 15:23 77 18 02/18/20 14:56 77 18 188/94 (125) 97 02/18/20 14:19 66 15 02/18/20 14:00 66 15 181/98 (125) 97 02/18/20 13:49 69 18 185/101 (129) 99 Intake and Output 02/18/20 02/19/20 19:00 07:00 Intake Total 720 ml 730 ml Output Total 2000 ml Balance 720 ml -1270 ml Intake Oral 720 ml 730 ml Hemodialysis UF 2000 ml # Voids 2 2 Laboratory Tests 02/19/20 06:00: White Blood Count 2.9L, Red Blood Count 2.68L, Hemoglobin 8.1L, Hematocrit 24.7L , Mean Corpuscular Volume 92, Mean Corpuscular Hemoglobin 30.3, Mean Corpuscular Hemoglobin Concent 33.0, Red Cell Distribution Width 13.7, Platelet Count 112L, Mean Platelet Volume 7.0, Neutrophils (%) (Auto) , Lymphocytes (%) ( Auto) , Monocytes (%) (Auto) , Eosinophils (%) (Auto) , Basophils (%) (Auto) , Differential Total Cells Counted 100, Neutrophils % (Manual) 68, Lymphocytes % ( Manual) 16L, Monocytes % (Manual) 12H, Eosinophils % (Manual) 3, Basophils % ( Manual) 1, Band Neutrophils 0, Platelet Estimate DecreasedL, Platelet Morphology Normal, Hypochromasia 2+, Anisocytosis 1+, Sodium Level 134L, Potassium Level 4.3, Chloride Level 97L, Carbon Dioxide Level 33H, Anion Gap 4L , Blood Urea Nitrogen 25H, Creatinine 6.7H, Estimat Glomerular Filtration Rate 7.5, Glucose Level 90, Calcium Level 7.8L, Phosphorus Level 3.5, Magnesium Level 2.6H, Total Bilirubin 0.3, Aspartate Amino Transf (AST/SGOT) 22, Alanine Aminotransferase (ALT/SGPT) 10L, Alkaline Phosphatase 66, C-Reactive Protein, Quantitative 0.6, Pro-B-Type Natriuretic Peptide 08794M, Total Protein 7.5, Albumin 2.8L, Globulin 4.7, Albumin/Globulin Ratio 0.6L, Random Vancomycin Level 14.7 Height (Feet): 5 Height (Inches): 8.00 Weight (Pounds): 172 General Appearance: no apparent distress Cardiovascular: normal rate, bradycardia Respiratory/Chest: decreased breath sounds Abdomen: soft Objective No change Jack Pryor MD Feb 19, 2020 13:17
--- NOTE | 2020-02-19 14:52 | Surgery Progress Note ---
Surgery Progress Note Subjective Procedure Performed removal of infected right chest wall tunneled hemodialysis catheter Additional Comments doing well new left chest wall tunneled HD cath placed no n/v receiving HD again feels better. Objective Last 24 Hour Vital Signs Date Time Temp Pulse Resp B/P (MAP) Pulse Ox O2 Delivery O2 Flow Rate FiO2 02/19/20 13:07 97.2 02/19/20 12:04 167/71 02/19/20 12:00 97.2 53 18 167/71 (103) 100 02/19/20 09:00 Room Air 02/19/20 08:33 57 151/79 02/19/20 08:33 57 151/79 02/19/20 08:00 97.9 57 18 151/79 (103) 95 02/19/20 06:42 122/78 02/19/20 04:00 99.0 79 18 122/78 (93) 97 02/19/20 00:00 99.5 78 20 170/82 (111) 99 02/18/20 23:37 170/82 02/18/20 23:33 170/82 02/18/20 21:00 Room Air 02/18/20 20:51 61 155/92 02/18/20 20:00 98.6 61 21 155/92 (113) 93 02/18/20 18:00 158/83 02/18/20 16:00 98.6 68 19 158/83 (108) 94 02/18/20 15:36 188/94 02/18/20 15:23 77 18 02/18/20 14:56 77 18 188/94 (125) 97 I&O Intake and Output 02/18/20 02/19/20 19:00 07:00 Intake Total 720 ml 730 ml Output Total 2000 ml Balance 720 ml -1270 ml Intake Oral 720 ml 730 ml Hemodialysis UF 2000 ml # Voids 2 2 Dressing: dry Wound: clean Cardiovascular: RSR Respiratory: clear Abdomen: soft, non-tender, present bowel sounds Extremities: no edema, no tenderness, no cyanosis Laboratory Tests Test 02/19/20 06:00 White Blood Count 2.9 K/UL (4.8-10.8) L Red Blood Count 2.68 M/UL (4.20-5.40) L Hemoglobin 8.1 G/DL (12.0-16.0) L Hematocrit 24.7 % (37.0-47.0) L Mean Corpuscular Volume 92 FL (80-99) Mean Corpuscular Hemoglobin 30.3 PG (27.0-31.0) Mean Corpuscular Hemoglobin Concent 33.0 G/DL (32.0-36.0) Red Cell Distribution Width 13.7 % (11.6-14.8) Platelet Count 112 K/UL (150-450) L Mean Platelet Volume 7.0 FL (6.5-10.1) Neutrophils (%) (Auto) % (45.0-75.0) Lymphocytes (%) (Auto) % (20.0-45.0) Monocytes (%) (Auto) % (1.0-10.0) Eosinophils (%) (Auto) % (0.0-3.0) Basophils (%) (Auto) % (0.0-2.0) Differential Total Cells Counted 100 Neutrophils % (Manual) 68 % (45-75) Lymphocytes % (Manual) 16 % (20-45) L Monocytes % (Manual) 12 % (1-10) H Eosinophils % (Manual) 3 % (0-3) Basophils % (Manual) 1 % (0-2) Band Neutrophils 0 % (0-8) Platelet Estimate Decreased L Platelet Morphology Normal Hypochromasia 2+ Anisocytosis 1+ Sodium Level 134 MMOL/L (136-145) L Potassium Level 4.3 MMOL/L (3.5-5.1) Chloride Level 97 MMOL/L (98-107) L Carbon Dioxide Level 33 MMOL/L (21-32) H Anion Gap 4 mmol/L (5-15) L Blood Urea Nitrogen 25 mg/dL (7-18) H Creatinine 6.7 MG/DL (0.55-1.30) H Estimat Glomerular Filtration Rate 7.5 mL/min (>60) Glucose Level 90 MG/DL (74-106) Calcium Level 7.8 MG/DL (8.5-10.1) L Phosphorus Level 3.5 MG/DL (2.5-4.9) Magnesium Level 2.6 MG/DL (1.8-2.4) H Total Bilirubin 0.3 MG/DL (0.2-1.0) Aspartate Amino Transf (AST/SGOT) 22 U/L (15-37) Alanine Aminotransferase (ALT/SGPT) 10 U/L (12-78) L Alkaline Phosphatase 66 U/L (46-116) C-Reactive Protein, Quantitative 0.6 mg/dL (0.00-0.90) Pro-B-Type Natriuretic Peptide 26181 pg/mL (0-125) H Total Protein 7.5 G/DL (6.4-8.2) Albumin 2.8 G/DL (3.4-5.0) L Globulin 4.7 g/dL Albumin/Globulin Ratio 0.6 (1.0-2.7) L Random Vancomycin Level 14.7 ug/mL Plan Problems: (1) Anemia (2) Bartholin's gland abscess Assessment & Plan: 69-year-old female Bartholin gland abscess cyst. Status post incision and drainage with drain placement. Drain currently in place and still draining. States that it feels better but continues to hurt. Plan for hemodialysis initiated by continuous mining machine operator. Patient has a catheter in place unlikely infected. We will continue to monitor for local abscess drainage and improvement. Will monitor drain and manage drain accordingly. Okay for warm compress as needed. Pain management Rx written. Trend labs. Antibiotics per ID. May need repeat drainage if does not improve significantly. Thank you for letting participate in patient's care will follow recommendations anemia - transfuse prbc with HD Continue with catheter drainage functional doing well Discussed care plan with the patient Plan for outpatient [employer] follow-up on discharge. prbc with HD prn as per renal drain okay KUB in AM bowel regimen - constipated Drain has fallen out. Cellulitis is improved. Nontender no draining okay for drain to be out. Outpatient follow-up plan. Persistent fevers right tunneled 2-year-old permacath removed Discussed with medical team nephrology and radiology plan for new line placement this Friday new tunneled left chest wall cath placed for HD doing well comfortable d/c planning (3) Hypoglycemia (4) Vulval cellulitis (5) Missed dialysis (6) ESRD (end stage renal disease) on dialysis (7) Hyperkalemia (8) Substance abuse (9) HIV disease (10) HCV antibody positive (11) Weakness (12) Epileptic seizure, generalized Deon Crowe Feb 19, 2020 14:52
[2020-02-19 16:00] VITALS: BP 146/69
[2020-02-19] MEDS: ALPRAZolam 0.5mg tab ORAL PRN (16:12)
--- NOTE | 2020-02-19 18:50 | NUR ---
NURSE NOTES: Wound care provided; patient tolerated well; wound picture uploaded;
--- NOTE | 2020-02-19 19:28 | NUR ---
HAND-OFF: Report given to MARTIN Kaufman. Patient is stable; plan of care endoresed to the incoming nurse;
--- NOTE | 2020-02-19 19:39 | NUR ---
NURSE NOTES: Patient in bed, awake and alert x4. On room air with no signs of distress or SOB. L chest permacath noted. IV intact and patent. Bed locked and in lowest position. Call light in reach. Will follow plan of care.
[2020-02-19 20:00] VITALS: BP 157/76
[2020-02-19] MEDS: Iron Sucrose 100 MG in NS 55 ML IV SCH (21:04)
[2020-02-19] MEDS: Milk of Magnesia 30ml Ud ORAL PRN (22:58)
[2020-02-20] VITALS: BP 146/70
[2020-02-20] MEDS: HydrALAZINE 50mg tab ORAL SCH ×4 (00:13→17:50)
[2020-02-20] MEDS: HYDROmorphone 1mg/ml Carpuject IVP PRN ×5 (01:15→21:00)
[2020-02-20] MEDS: ALPRAZolam 0.5mg tab ORAL PRN ×2 (02:55→12:17)
[2020-02-20 04:00] VITALS: BP 156/86
[2020-02-20] MEDS: DiphenhydrAMINE 50mg/ml Inj IVP PRN ×3 (05:27→18:10)
--- NOTE | 2020-02-20 07:15 | NUR ---
NURSE NOTES: Patient noted to have sore on R lateral side of tongue. C/O pain. Dr. Peralta making rounds this morning and made aware. No new orders at this time.
--- NOTE | 2020-02-20 07:28 | NUR ---
HAND-OFF: Report given to MARTIN Coyne.
--- NOTE | 2020-02-20 07:41 | General Progress Note ---
Assessment/Plan Problem List: (1) Epileptic seizure, generalized ICD Codes: G40.309 - Generalized idiopathic epilepsy and epileptic syndromes, not intractable, without status epilepticus SNOMED: 58158181 (2) Weakness ICD Codes: R53.1 - Weakness SNOMED: 69074301 (3) HIV disease ICD Codes: B20 - Human immunodeficiency virus [HIV] disease SNOMED: 94807398 (4) Substance abuse ICD Codes: F19.10 - Other psychoactive substance abuse, uncomplicated SNOMED: 11527190 (5) Bartholin's gland abscess ICD Codes: N75.1 - Abscess of Bartholin's gland SNOMED: 33175874 (6) Hypoglycemia ICD Codes: E16.2 - Hypoglycemia, unspecified SNOMED: 865278285 Status: stable Assessment/Plan: cont iv abx HD per renal monitor h/h transfuse as needed epo and iron replacement dvt/stress ulcer prophylaxis. pain rx dc planning to snf on iv vanco tomorrow Subjective ROS Limited/Unobtainable: No Constitutional: Reports: malaise, weakness HEENT: Reports: no symptoms Cardiovascular: Reports: no symptoms Respiratory: Reports: no symptoms Gastrointestinal/Abdominal: Reports: no symptoms Genitourinary: Reports: no symptoms Neurologic/Psychiatric: Reports: no symptoms Endocrine: Reports: no symptoms Hematologic/Lymphatic: Reports: no symptoms Allergies: Coded Allergies: ASPIRIN (Unverified Allergy, Unknown, 01/16/20) IODINE (Verified Allergy, Unknown, 01/07/20) Uncoded Allergies: CONTRAST DYE (Allergy, Unknown, 01/07/20) All Systems: reviewed and negative except above Subjective no new complaints. no reports of bleeding. no fever or chills. no sob. tolerating po. remains on iv abx. c/o generalized pain. no melena or brbpr Objective Last 24 Hour Vital Signs Date Time Temp Pulse Resp B/P (MAP) Pulse Ox O2 Delivery O2 Flow Rate FiO2 02/20/20 05:21 156/86 02/20/20 04:00 98.6 61 20 156/86 (109) 95 02/20/20 00:13 146/70 02/20/20 00:00 98.0 78 19 146/70 (95) 96 02/19/20 21:04 61 157/76 02/19/20 21:00 Room Air 02/19/20 20:00 99.9 61 19 157/76 (103) 95 02/19/20 17:35 97.5 02/19/20 17:04 146/69 02/19/20 16:00 97.5 57 18 146/69 (94) 98 02/19/20 12:04 167/71 02/19/20 12:00 97.2 53 18 167/71 (103) 100 02/19/20 09:00 Room Air 02/19/20 08:33 57 151/79 02/19/20 08:33 57 151/79 02/19/20 08:00 97.9 57 18 151/79 (103) 95 Intake and Output 02/19/20 02/20/20 19:00 07:00 Intake Total 847.416 ml 480 ml Balance 847.416 ml 480 ml Intake Oral 480 ml 480 ml IV Total 367.416 ml # Voids 3 1 # Bowel Movements 2 Height (Feet): 5 Height (Inches): 8.00 Weight (Pounds): 172 Objective General Appearance: WD/WN, lethargic EENT: PERRL/EOMI, normal ENT inspection Neck: non-tender, normal alignment Cardiovascular: normal peripheral pulses, normal rate, regular rhythm Respiratory/Chest: chest wall non-tender, lungs clear, normal breath sounds Abdomen: normal bowel sounds, non tender, soft, no organomegaly Extremities: normal range of motion Edema: no edema noted Arm (L), no edema noted Arm (R) Neurologic: blacking machine operator II-XII grossly normal, no motor/sensory deficits, abnormal gait , alert, oriented x 3, responsive Michael Peralta MD Feb 20, 2020 07:41
[2020-02-20 08:00] VITALS: BP 160/75
--- NOTE | 2020-02-20 08:00 | NUR ---
NURSE NOTES: Received ptient on bed, complains of back pain, nurse explained pain medication is not due and informed due time. Left ahnd IV access, on TKO and hand wrapped under Kerlix Alanis to prevent patient pulling IV access. Right side tongue sore per patient, NOC MARTIN Oconnell notified dr. Peralta. Bed locked at the lowest position possible, call light within easy reach, siderails up x2. Will continue to monitor patient and follow up with the plan of care.
[2020-02-20] MEDS: Docusate 100mg cap ORAL SCH ×3 (09:29→17:04)
[2020-02-20] MEDS: Metoprolol Tartrate 50mg tab ORAL SCH ×2 (09:29→21:00)
[2020-02-20] MEDS: Renvela 2400 mg pkt ORAL SCH ×3 (09:29→17:04)
--- NOTE | 2020-02-20 10:35 | Nephrology Progress Note ---
Assessment/Plan Problem List: (1) ESRD (end stage renal disease) on dialysis (2) Hyperkalemia (3) Bartholin's gland abscess (4) Anemia (5) HCV antibody positive (6) HIV disease (7) Substance abuse Assessment Patient presents with hyperkalemia, anemia and 1 week of no dialysis Previous frequent chest pains. Anemia and evidence of upper GI bleed and [employer] in the past. Patient was on anticoagulation for atrial fibrillation however it is unclear how compliant the patient is. History of frequent hyperkalemia due to missing hemodialysis. End-stage renal disease on hemodialysis. The patient has a right chest permacath which is not dressed and appears to either be infected or very prone to infection. HIV disease. Substance abuse with previous urine test positive for narcotics and cocaine. History of hepatitis C virus. History of hypertensive kidney disease. Plan February 19: Will order dialysis tomorrow February 20. Will check lab in a.m. Continue per consultants. February 18: Was dialyzed yesterday February 17. Has a new permacath over the left side of the chest. Patient also was transfused yesterday. Anemia improved. Next dialysis February 20Friday. February 17: Last dialysis was February 14. Patient due to have a permacath today and then arrange for dialysis and 2 units of blood transfusion afterwards. Discussed with RN. Labs reviewed. Expect correction of the chemistry panel after dialysis. February 16: Last dialysis February 14. Due for dialysis tomorrow February 17. Due for insertion of a permacath by IR tomorrow. The removed catheter on February 14 has a negative tip culture February 15: Patient last dialyzed February 14. Today's labs reviewed. Discussed with Dr. Crowe. The dialysis catheter was removed yesterday. New catheter will be placed on February 17. 2 sets of blood cultures ordered. Discussed with RN, and charge nurse. February 14: Patient was dialyzed yesterday. Today's labs reviewed. Discussed with PMD. The ID configuration management consultant suggest removal of the permacath due to infection. Will arrange for dialysis today. Will remove the permacath after dialysis today. Will reinsert a dialysis catheter 48 hours later. Discussed with RN. Orders in EMR. February 13: Due for dialysis today. Hemoglobin higher after transfusion. Continue per consultants. February 12: Next dialysis tomorrow on February 13. Hemoglobin remains low patient is due for another transfusion today. Continue per current treatment plan. February 11: Patient was dialyzed yesterday. Labs reviewed. Hemoglobin low. Due for transfusion. Next dialysis February 13, unless she needs it earlier. Medications are reviewed. Metoprolol dose increased. February 10: Patient due for dialysis today February 10. No labs drawn today. Will check renal parameters tomorrow. Continue per consultants. Patient anemic, transfusion is suggested. Patient dialyzed February 08, late night, for potassium of 7.4. Will give Kayexalate for high potassium as needed Adjust blood pressure medication. Folate supplement. Due for transfusion. Per orders. Subjective ROS Limited/Unobtainable: No Objective Objective Last 24 Hour Vital Signs Date Time Temp Pulse Resp B/P (MAP) Pulse Ox O2 Delivery O2 Flow Rate FiO2 02/20/20 10:00 98.0 02/20/20 09:29 56 160/75 02/20/20 09:29 56 160/75 02/20/20 08:00 98.0 56 18 160/75 (103) 95 02/20/20 05:21 156/86 02/20/20 04:00 98.6 61 20 156/86 (109) 95 02/20/20 00:13 146/70 02/20/20 00:00 98.0 78 19 146/70 (95) 96 02/19/20 21:04 61 157/76 02/19/20 21:00 Room Air 02/19/20 20:00 99.9 61 19 157/76 (103) 95 02/19/20 17:04 146/69 02/19/20 16:00 97.5 57 18 146/69 (94) 98 02/19/20 12:04 167/71 02/19/20 12:00 97.2 53 18 167/71 (103) 100 Intake and Output 02/19/20 02/20/20 19:00 07:00 Intake Total 847.416 ml 480 ml Balance 847.416 ml 480 ml Intake Oral 480 ml 480 ml IV Total 367.416 ml # Voids 3 1 # Bowel Movements 2 No labs drawn today Height (Feet): 5 Height (Inches): 8.00 Weight (Pounds): 172 General Appearance: no apparent distress Objective No change Jack Pryor MD Feb 20, 2020 10:35
--- NOTE | 2020-02-20 11:17 | NUR ---
NURSE NOTES: Nurse called [facility] nephrology, spoken to JASON. Notified patient has scheduled HD for tomorrow 02/21/20.
[2020-02-20 11:42] LABS: BASOPHILS % (AUTO) 1.1 % (0.0-2.0); EOSINOPHILS % (AUTO) 3.1 % (0.0-3.0); HEMATOCRIT 26.8 % (37.0-47.0); HEMOGLOBIN 8.8 G/DL (12.0-16.0); LYMPHOCYTES % (AUTO) 14.6 % (20.0-45.0); MEAN CORPUSCULAR VOLUME 93 FL (80-99); MONOCYTES % (AUTO) 8.8 % (1.0-10.0); NEUTROPHILS % (AUTO) 72.4 % (45.0-75.0); PLATELET COUNT 134 K/UL (150-450); RED BLOOD COUNT 2.88 M/UL (4.20-5.40); RED CELL DISTRIBUTION WIDTH 13.6 % (11.6-14.8); WHITE BLOOD COUNT 5.2 K/UL (4.8-10.8)
[2020-02-20 12:00] VITALS: BP 146/76
--- NOTE | 2020-02-20 12:45 | Infectious Diseases Prog Note ---
Assessment/Plan Assessment/Plan A: 1. Staph aureus sepsis (MSSA), catheter infection. 2. Infected Bartholin cyst, status post drainage with Proteus and Enterococcus. 3. Hypertension. 4. HIV. 5. Hepatitis C. 6. ESRD. 7. Severe anemia 8. Cocaine abuse PLAN: 1. Continue IV vancomycin X 4 days Subjective ROS Limited/Unobtainable: No Constitutional: Reports: no symptoms Respiratory: Reports: no symptoms Cardiovascular: Reports: no symptoms Gastrointestinal/Abdominal: Reports: no symptoms Genitourinary: Reports: other - vaginal pain Allergies: Coded Allergies: ASPIRIN (Unverified Allergy, Unknown, 01/16/20) IODINE (Verified Allergy, Unknown, 01/07/20) Uncoded Allergies: CONTRAST DYE (Allergy, Unknown, 01/07/20) Objective Last 24 Hour Vital Signs Date Time Temp Pulse Resp B/P (MAP) Pulse Ox O2 Delivery O2 Flow Rate FiO2 02/20/20 12:03 160/75 02/20/20 10:00 98.0 02/20/20 09:29 56 160/75 02/20/20 09:29 56 160/75 02/20/20 09:00 Room Air 02/20/20 08:00 98.0 56 18 160/75 (103) 95 02/20/20 05:21 156/86 02/20/20 04:00 98.6 61 20 156/86 (109) 95 02/20/20 00:13 146/70 02/20/20 00:00 98.0 78 19 146/70 (95) 96 02/19/20 21:04 61 157/76 02/19/20 21:00 Room Air 02/19/20 20:00 99.9 61 19 157/76 (103) 95 02/19/20 17:04 146/69 02/19/20 16:00 97.5 57 18 146/69 (94) 98 Height (Feet): 5 Height (Inches): 8.00 Weight (Pounds): 172 General Appearance: no acute distress HEENT: mucous membranes moist Respiratory/Chest: lungs clear Cardiovascular: normal rate, other - Permacath Abdomen: soft, non tender Neurologic/Psychiatric: alert, oriented x 3, responsive Laboratory Tests Test 02/20/20 10:30 White Blood Count 5.2 K/UL (4.8-10.8) # Red Blood Count 2.88 M/UL (4.20-5.40) L Hemoglobin 8.8 G/DL (12.0-16.0) L Hematocrit 26.8 % (37.0-47.0) L Mean Corpuscular Volume 93 FL (80-99) Mean Corpuscular Hemoglobin 30.5 PG (27.0-31.0) Mean Corpuscular Hemoglobin Concent 32.8 G/DL (32.0-36.0) Red Cell Distribution Width 13.6 % (11.6-14.8) Platelet Count 134 K/UL (150-450) L Mean Platelet Volume 6.7 FL (6.5-10.1) Neutrophils (%) (Auto) 72.4 % (45.0-75.0) Lymphocytes (%) (Auto) 14.6 % (20.0-45.0) L Monocytes (%) (Auto) 8.8 % (1.0-10.0) Eosinophils (%) (Auto) 3.1 % (0.0-3.0) H Basophils (%) (Auto) 1.1 % (0.0-2.0) Current Medications Medications (Trade) Dose Ordered Sig/Rochelle Route PRN Reason Start Time Stop Time Status Last Admin Dose Admin Acetaminophen (Tylenol) 650 mg Q4H PRN ORAL Mild Pain (Pain Scale 1-3) 02/14/20 09:00 03/11/20 08:59 Alprazolam (Xanax) 0.5 mg Q6H PRN ORAL For Anxiety 02/16/20 22:30 02/23/20 22:29 02/20/20 12:17 Amlodipine Besylate (Norvasc) 10 mg DAILY ORAL 02/14/20 09:00 03/11/20 08:59 02/20/20 09:29 Clonidine HCl (Catapres Tab) 0.1 mg Q4H PRN ORAL For BP above 165 systolic 02/14/20 09:00 05/09/20 08:59 02/18/20 23:33 Diphenhydramine HCl (Benadryl) 25 mg Q6H PRN IVP Itching 02/14/20 14:30 03/14/20 14:29 02/20/20 12:03 Docusate Sodium (Colace) 100 mg TID ORAL 02/14/20 09:00 03/10/20 17:59 02/20/20 12:03 Epoetin Jose (Epoetin Jose(ESRD on dialysis)) 2,000 unit SUBQ 02/16/20 21:00 05/16/20 20:59 02/18/20 20:52 Epoetin Jose (Epoetin Jose(ESRD on dialysis)) 3,000 unit SUBQ 02/16/20 21:00 05/16/20 20:59 02/18/20 20:52 Folic Acid (Folate) 2 mg DAILY ORAL 02/14/20 09:00 03/11/20 09:59 02/20/20 09:29 Heparin Sodium/ Sodium Chloride (Heparin 1000 units/500ml Premix) 1,000 unit ONCE PRN IV catheter flush 02/18/20 13:15 02/20/20 13:14 Hydralazine HCl (Apresoline) 50 mg Q6HR ORAL 02/18/20 18:00 05/18/20 17:59 02/20/20 12:03 Hydromorphone HCl (Dilaudid) 1 mg Q4H PRN IVP Severe Pain (Pain Scale 7-10) 02/18/20 10:45 02/25/20 10:44 02/20/20 09:30 Iron Sucrose 100 mg/Sodium Chloride 60 ml @ 240 mls/hr BEDTIME IV 02/16/20 21:00 02/20/20 21:14 02/19/20 21:04 Lidocaine/ Epinephrine (Lidocaine 1%/ Epi 0.01mg 30ml) 30 ml ONCE PRN INJ local injection 02/18/20 13:15 02/20/20 13:14 Lidocaine/ Epinephrine (Lidocaine 1%/ Epi 0.01mg 30ml) 30 ml ONCE PRN INJ local injection 02/18/20 13:15 02/20/20 13:14 Magnesium Hydroxide (Mom) 30 ml DAILYPRN PRN ORAL Constipation 02/14/20 09:00 03/14/20 08:59 02/19/20 22:58 Metoprolol Tartrate (Lopressor) 50 mg Q12HR ORAL 02/14/20 09:00 05/12/20 08:59 02/20/20 09:29 Ondansetron HCl (Zofran) 4 mg Q6H PRN IV Nausea & Vomiting 02/14/20 14:30 03/10/20 14:29 02/20/20 00:11 Pantoprazole (Protonix) 40 mg BID ORAL 02/14/20 09:00 03/10/20 17:59 02/20/20 09:29 Sevelamer Carbonate (Renvela) 2,400 mg THREE TIMES A DAY ORAL 02/14/20 09:00 05/09/20 17:59 02/20/20 12:03 Vancomycin HCl ([facility] pharmacy to dose) 1 ea DAILY PRN MISC Per rx protocol 02/14/20 09:00 03/12/20 17:14 Armando Brown MD Feb 20, 2020 12:45
--- NOTE | 2020-02-20 14:05 | Surgery Progress Note ---
Surgery Progress Note Subjective Procedure Performed removal of infected right chest wall tunneled hemodialysis catheter Symptoms: improved, tolerating diet, passing flatus, BM Additional Comments resting well Objective Last 24 Hour Vital Signs Date Time Temp Pulse Resp B/P (MAP) Pulse Ox O2 Delivery O2 Flow Rate FiO2 02/20/20 12:03 160/75 02/20/20 10:00 98.0 02/20/20 09:29 56 160/75 02/20/20 09:29 56 160/75 02/20/20 09:00 Room Air 02/20/20 08:00 98.0 56 18 160/75 (103) 95 02/20/20 05:21 156/86 02/20/20 04:00 98.6 61 20 156/86 (109) 95 02/20/20 00:13 146/70 02/20/20 00:00 98.0 78 19 146/70 (95) 96 02/19/20 21:04 61 157/76 02/19/20 21:00 Room Air 02/19/20 20:00 99.9 61 19 157/76 (103) 95 02/19/20 17:04 146/69 02/19/20 16:00 97.5 57 18 146/69 (94) 98 I&O Intake and Output 02/19/20 02/20/20 18:59 06:59 Intake Total 847.416 ml 480 ml Balance 847.416 ml 480 ml Intake Oral 480 ml 480 ml IV Total 367.416 ml # Voids 3 1 # Bowel Movements 2 Dressing: dry Wound: clean Cardiovascular: RSR Respiratory: clear Abdomen: soft, non-tender, present bowel sounds Extremities: no edema, no tenderness, no cyanosis Laboratory Tests Test 02/20/20 10:30 White Blood Count 5.2 K/UL (4.8-10.8) # Red Blood Count 2.88 M/UL (4.20-5.40) L Hemoglobin 8.8 G/DL (12.0-16.0) L Hematocrit 26.8 % (37.0-47.0) L Mean Corpuscular Volume 93 FL (80-99) Mean Corpuscular Hemoglobin 30.5 PG (27.0-31.0) Mean Corpuscular Hemoglobin Concent 32.8 G/DL (32.0-36.0) Red Cell Distribution Width 13.6 % (11.6-14.8) Platelet Count 134 K/UL (150-450) L Mean Platelet Volume 6.7 FL (6.5-10.1) Neutrophils (%) (Auto) 72.4 % (45.0-75.0) Lymphocytes (%) (Auto) 14.6 % (20.0-45.0) L Monocytes (%) (Auto) 8.8 % (1.0-10.0) Eosinophils (%) (Auto) 3.1 % (0.0-3.0) H Basophils (%) (Auto) 1.1 % (0.0-2.0) Plan Problems: (1) Anemia (2) Bartholin's gland abscess Assessment & Plan: 69-year-old female Bartholin gland abscess cyst. Status post incision and drainage with drain placement. Drain currently in place and still draining. States that it feels better but continues to hurt. Plan for hemodialysis initiated by mule spinner. Patient has a catheter in place unlikely infected. We will continue to monitor for local abscess drainage and improvement. Will monitor drain and manage drain accordingly. Okay for warm compress as needed. Pain management Rx written. Trend labs. Antibiotics per ID. May need repeat drainage if does not improve significantly. Thank you for letting participate in patient's care will follow recommendations anemia - transfuse prbc with HD Continue with catheter drainage functional doing well Discussed care plan with the patient Plan for outpatient [employer] follow-up on discharge. prbc with HD prn as per renal drain okay KUB in AM bowel regimen - constipated Drain has fallen out. Cellulitis is improved. Nontender no draining okay for drain to be out. Outpatient follow-up plan. Persistent fevers right tunneled 4-year-old permacath removed Discussed with medical team nephrology and radiology plan for new line placement this Friday new tunneled left chest wall cath placed for HD doing well comfortable d/c planning (3) Hypoglycemia (4) Vulval cellulitis (5) Missed dialysis (6) ESRD (end stage renal disease) on dialysis (7) Hyperkalemia (8) Substance abuse (9) HIV disease (10) HCV antibody positive (11) Weakness (12) Epileptic seizure, generalized Deon Crowe Feb 20, 2020 14:05
[2020-02-20 16:00] VITALS: BP 139/76
--- NOTE | 2020-02-20 19:38 | NUR ---
HAND-OFF: Report given to MARTIN Frias.
--- NOTE | 2020-02-20 19:59 | NUR ---
NURSE NOTES: Received patient awake, alert, verbal, resting in bed, comfortable.
[2020-02-20 20:11] VITALS: BP 147/77
[2020-02-20] MEDS: Iron Sucrose 100 MG in NS 55 ML IV SCH (20:59)
[2020-02-21 00:16] VITALS: BP 152/74
[2020-02-21] MEDS: HydrALAZINE 50mg tab ORAL SCH ×2 (00:23→05:03)
[2020-02-21] MEDS: DiphenhydrAMINE 50mg/ml Inj IVP PRN ×3 (01:12→14:32)
[2020-02-21] MEDS: HYDROmorphone 1mg/ml Carpuject IVP PRN ×5 (01:17→18:10)
[2020-02-21 04:00] VITALS: BP 148/76
[2020-02-21 06:44] LABS: BASOPHILS % (AUTO) 0.9 % (0.0-2.0); EOSINOPHILS % (AUTO) 3.9 % (0.0-3.0); HEMATOCRIT 28.5 % (37.0-47.0); HEMOGLOBIN 9.3 G/DL (12.0-16.0); LYMPHOCYTES % (AUTO) 15.1 % (20.0-45.0); MEAN CORPUSCULAR VOLUME 93 FL (80-99); MONOCYTES % (AUTO) 8.3 % (1.0-10.0); NEUTROPHILS % (AUTO) 71.9 % (45.0-75.0); PLATELET COUNT 152 K/UL (150-450); RED BLOOD COUNT 3.07 M/UL (4.20-5.40); RED CELL DISTRIBUTION WIDTH 13.5 % (11.6-14.8); WHITE BLOOD COUNT 5.3 K/UL (4.8-10.8)
--- NOTE | 2020-02-21 07:10 | NUR ---
HAND-OFF: Report given to Doretha Curran RN.
[2020-02-21 07:30] LABS: ALANINE AMINOTRANSFERASE 8 U/L (12-78); ALBUMIN 3.1 G/DL (3.4-5.0); ALBUMIN/GLOBULIN RATIO 0.6 (1.0-2.7); ALKALINE PHOSPHATASE 74 U/L (46-116); ANION GAP 10 mmol/L (5-15); ASPARTATE AMINO TRANSFERASE 26 U/L (15-37); BILIRUBIN,TOTAL 0.3 MG/DL (0.2-1.0); BLOOD UREA NITROGEN 43 mg/dL (7-18); CALCIUM 8.5 MG/DL (8.5-10.1); CARBON DIOXIDE 27 MMOL/L (21-32); CHLORIDE 91 MMOL/L (98-107); CREATININE 9.9 MG/DL (0.55-1.30); POTASSIUM 5.1 MMOL/L (3.5-5.1); SODIUM 128 MMOL/L (136-145)
[2020-02-21 08:00] VITALS: BP 179/85
--- NOTE | 2020-02-21 08:00 | NUR ---
NURSE NOTES: Received patient in bed, complains of back pain and itchiness, nurse explained meds for those issues aren't due and informed due time. Left hand IV access, saline locked. Left subclavian tunneled HD catheter in place. Bed locked at the lowest position possible, call light within easy reach, siderails up x2. Will continue to monitor patient and follow up with the plan of care.
[2020-02-21] MEDS: Renvela 2400 mg pkt ORAL SCH ×3 (08:10→18:10)
[2020-02-21] MEDS: Docusate 100mg cap ORAL SCH ×3 (08:10→18:10)
[2020-02-21] MEDS: ALPRAZolam 0.5mg tab ORAL PRN (08:15)
[2020-02-21 08:21] LABS: PHOSPHORUS 4.3 MG/DL (2.5-4.9)
--- NOTE | 2020-02-21 09:38 | General Progress Note ---
Assessment/Plan Problem List: (1) Epileptic seizure, generalized ICD Codes: G40.309 - Generalized idiopathic epilepsy and epileptic syndromes, not intractable, without status epilepticus SNOMED: 05104672 (2) Weakness ICD Codes: R53.1 - Weakness SNOMED: 72889775 (3) HIV disease ICD Codes: B20 - Human immunodeficiency virus [HIV] disease SNOMED: 61378532 (4) Substance abuse ICD Codes: F19.10 - Other psychoactive substance abuse, uncomplicated SNOMED: 30264122 (5) Bartholin's gland abscess ICD Codes: N75.1 - Abscess of Bartholin's gland SNOMED: 15680658 (6) Hypoglycemia ICD Codes: E16.2 - Hypoglycemia, unspecified SNOMED: 279292763 Status: stable Assessment/Plan: cont iv abx per id- 3 more days HD per renal monitor h/h transfuse as needed epo and iron replacement dvt/stress ulcer prophylaxis. pain rx anxiolytics possible dc to snf ifpt agrees pt eval Subjective ROS Limited/Unobtainable: No Constitutional: Reports: malaise, weakness HEENT: Reports: no symptoms Cardiovascular: Reports: no symptoms Respiratory: Reports: no symptoms Gastrointestinal/Abdominal: Reports: no symptoms Genitourinary: Reports: no symptoms Neurologic/Psychiatric: Reports: anxiety Endocrine: Reports: no symptoms Hematologic/Lymphatic: Reports: no symptoms Allergies: Coded Allergies: ASPIRIN (Unverified Allergy, Unknown, 01/16/20) IODINE (Verified Allergy, Unknown, 01/07/20) Uncoded Allergies: CONTRAST DYE (Allergy, Unknown, 01/07/20) All Systems: reviewed and negative except above Subjective c/o panic attacks. c/o pain. no fever or chills. no sob. not sure if shes willing to go to snf. Objective Last 24 Hour Vital Signs Date Time Temp Pulse Resp B/P (MAP) Pulse Ox O2 Delivery O2 Flow Rate FiO2 02/21/20 09:00 Room Air 02/21/20 08:00 98.1 61 18 179/85 (116) 98 02/21/20 05:28 98.8 02/21/20 05:03 145/76 02/21/20 04:00 97.8 68 19 148/76 (100) 95 02/21/20 00:23 152/74 02/21/20 00:16 98.8 79 19 152/74 (100) 96 02/20/20 21:00 66 147/77 02/20/20 20:22 Room Air 02/20/20 20:11 98.0 66 19 147/77 (100) 96 02/20/20 17:50 139/76 02/20/20 16:00 98.4 69 19 139/76 (97) 96 02/20/20 12:03 160/75 02/20/20 12:00 97.9 68 17 146/76 (99) 94 Intake and Output 02/20/20 02/21/20 19:00 07:00 Intake Total 800 ml 60 ml Output Total 200 ml Balance 800 ml -140 ml IV Total 60 ml Other 800 ml Output Urine Total 200 ml # Voids 1 Laboratory Tests 02/20/20 10:30: White Blood Count 5.2#, Red Blood Count 2.88L, Hemoglobin 8.8L, Hematocrit 26.8L , Mean Corpuscular Volume 93, Mean Corpuscular Hemoglobin 30.5, Mean Corpuscular Hemoglobin Concent 32.8, Red Cell Distribution Width 13.6, Platelet Count 134L, Mean Platelet Volume 6.7, Neutrophils (%) (Auto) 72.4, Lymphocytes ( %) (Auto) 14.6L, Monocytes (%) (Auto) 8.8, Eosinophils (%) (Auto) 3.1H, Basophils (%) (Auto) 1.1 02/21/20 05:45: White Blood Count 5.3, Red Blood Count 3.07L, Hemoglobin 9.3L, Hematocrit 28.5L , Mean Corpuscular Volume 93, Mean Corpuscular Hemoglobin 30.2, Mean Corpuscular Hemoglobin Concent 32.6, Red Cell Distribution Width 13.5, Platelet Count 152, Mean Platelet Volume 6.5, Neutrophils (%) (Auto) 71.9, Lymphocytes (% ) (Auto) 15.1L, Monocytes (%) (Auto) 8.3, Eosinophils (%) (Auto) 3.9H, Basophils (%) (Auto) 0.9, Sodium Level 128L, Potassium Level 5.1, Chloride Level 91L, Carbon Dioxide Level 27, Anion Gap 10, Blood Urea Nitrogen 43H, Creatinine 9.9H, Estimat Glomerular Filtration Rate 4.7, Glucose Level 81, Calcium Level 8.5, Phosphorus Level 4.3, Magnesium Level 3.1H, Total Bilirubin 0.3, Aspartate Amino Transf (AST/SGOT) 26, Alanine Aminotransferase (ALT/SGPT) 8L, Alkaline Phosphatase 74, C-Reactive Protein, Quantitative < 0.4, Total Protein 8.4H, Albumin 3.1L, Globulin 5.3, Albumin/Globulin Ratio 0.6L, Random Vancomycin Level 23.6 Height (Feet): 5 Height (Inches): 8.00 Weight (Pounds): 172 Objective General Appearance: WD/WN, lethargic EENT: PERRL/EOMI, normal ENT inspection Neck: non-tender, normal alignment Cardiovascular: normal peripheral pulses, normal rate, regular rhythm Respiratory/Chest: chest wall non-tender, lungs clear, normal breath sounds Abdomen: normal bowel sounds, non tender, soft, no organomegaly Extremities: normal range of motion Edema: no edema noted Arm (L), no edema noted Arm (R) 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
--- NOTE | 2020-02-21 10:10 | NUR ---
NURSE NOTES: dr Pryor visited patient. Nurse communicated patient's BP, said to not hold BP meds. Nurse informed [facility] HD nurse asked for the bp meds to be held. told nurse to still give the BP meds.
[2020-02-21] MEDS: Metoprolol Tartrate 50mg tab ORAL SCH ×2 (10:14→21:01)
--- NOTE | 2020-02-21 10:29 | Nephrology Progress Note ---
Assessment/Plan Problem List: (1) ESRD (end stage renal disease) on dialysis (2) Hyperkalemia (3) Bartholin's gland abscess (4) Anemia (5) HCV antibody positive (6) HIV disease (7) Substance abuse Assessment Patient presents with hyperkalemia, anemia and 1 week of no dialysis Previous frequent chest pains. Anemia and evidence of upper GI bleed and [employer] in the past. Patient was on anticoagulation for atrial fibrillation however it is unclear how compliant the patient is. History of frequent hyperkalemia due to missing hemodialysis. End-stage renal disease on hemodialysis. The patient has a right chest permacath which is not dressed and appears to either be infected or very prone to infection. HIV disease. Substance abuse with previous urine test positive for narcotics and cocaine. History of hepatitis C virus. History of hypertensive kidney disease. Plan February 28: Due for dialysis today. Labs reviewed. Blood pressure medication adjusted. Continue per consultants. February 19: Will order dialysis tomorrow February 20. Will check lab in a.m. Continue per consultants. February 18: Was dialyzed yesterday February 17. Has a new permacath over the left side of the chest. Patient also was transfused yesterday. Anemia improved. Next dialysis February 20Friday. February 17: Last dialysis was February 14. Patient due to have a permacath today and then arrange for dialysis and 2 units of blood transfusion afterwards. Discussed with RN. Labs reviewed. Expect correction of the chemistry panel after dialysis. February 16: Last dialysis February 14. Due for dialysis tomorrow February 17. Due for insertion of a permacath by IR tomorrow. The removed catheter on February 14 has a negative tip culture February 15: Patient last dialyzed February 14. Today's labs reviewed. Discussed with Dr. Crowe. The dialysis catheter was removed yesterday. New catheter will be placed on February 17. 2 sets of blood cultures ordered. Discussed with RN, and charge nurse. February 14: Patient was dialyzed yesterday. Today's labs reviewed. Discussed with PMD. The ID middleware consultant suggest removal of the permacath due to infection. Will arrange for dialysis today. Will remove the permacath after dialysis today. Will reinsert a dialysis catheter 48 hours later. Discussed with RN. Orders in EMR. February 13: Due for dialysis today. Hemoglobin higher after transfusion. Continue per consultants. February 12: Next dialysis tomorrow on February 13. Hemoglobin remains low patient is due for another transfusion today. Continue per current treatment plan. February 11: Patient was dialyzed yesterday. Labs reviewed. Hemoglobin low. Due for transfusion. Next dialysis February 13, unless she needs it earlier. Medications are reviewed. Metoprolol dose increased. February 10: Patient due for dialysis today February 10. No labs drawn today. Will check renal parameters tomorrow. Continue per consultants. Patient anemic, transfusion is suggested. Patient dialyzed February 08, late night, for potassium of 7.4. Will give Kayexalate for high potassium as needed Adjust blood pressure medication. Folate supplement. Due for transfusion. Per orders. Subjective ROS Limited/Unobtainable: No Constitutional: Reports: malaise, weakness Objective Objective Last 24 Hour Vital Signs Date Time Temp Pulse Resp B/P (MAP) Pulse Ox O2 Delivery O2 Flow Rate FiO2 02/21/20 10:14 61 179/85 02/21/20 10:14 61 179/85 02/21/20 09:39 98.1 02/21/20 09:00 Room Air 02/21/20 08:00 98.1 61 18 179/85 (116) 98 02/21/20 05:03 145/76 02/21/20 04:00 97.8 68 19 148/76 (100) 95 02/21/20 00:23 152/74 02/21/20 00:16 98.8 79 19 152/74 (100) 96 02/20/20 21:00 66 147/77 02/20/20 20:22 Room Air 02/20/20 20:11 98.0 66 19 147/77 (100) 96 02/20/20 17:50 139/76 02/20/20 16:00 98.4 69 19 139/76 (97) 96 02/20/20 12:03 160/75 02/20/20 12:00 97.9 68 17 146/76 (99) 94 Intake and Output 02/20/20 02/21/20 19:00 07:00 Intake Total 800 ml 60 ml Output Total 200 ml Balance 800 ml -140 ml IV Total 60 ml Other 800 ml Output Urine Total 200 ml # Voids 1 Current Medications Medications (Trade) Dose Ordered Sig/Rochelle Route PRN Reason Start Time Stop Time Status Last Admin Dose Admin Acetaminophen (Tylenol) 650 mg Q4H PRN ORAL Mild Pain (Pain Scale 1-3) 02/14/20 09:00 03/11/20 08:59 Amlodipine Besylate (Norvasc) 10 mg DAILY ORAL 02/14/20 09:00 03/11/20 08:59 02/21/20 10:14 Clonidine HCl (Catapres Tab) 0.1 mg Q4H PRN ORAL For BP above 165 systolic 02/14/20 09:00 05/09/20 08:59 02/18/20 23:33 Diphenhydramine HCl (Benadryl) 25 mg Q6H PRN IVP Itching 02/14/20 14:30 03/14/20 14:29 02/21/20 08:10 Docusate Sodium (Colace) 100 mg TID ORAL 02/14/20 09:00 03/10/20 17:59 02/21/20 08:10 Epoetin Jose (Epoetin Jose(ESRD on dialysis)) 2,000 unit FRI-FRI-FRI SUBQ 02/16/20 21:00 05/16/20 20:59 02/18/20 20:52 Epoetin Jose (Epoetin Jose(ESRD on dialysis)) 3,000 unit SUBQ 02/16/20 21:00 05/16/20 20:59 02/18/20 20:52 Folic Acid (Folate) 2 mg DAILY ORAL 02/14/20 09:00 03/11/20 09:59 02/21/20 08:09 Hydralazine HCl (Apresoline) 50 mg Q6HR ORAL 02/18/20 18:00 05/18/20 17:59 02/21/20 05:03 Hydromorphone HCl (Dilaudid) 1 mg Q4H PRN IVP Severe Pain (Pain Scale 7-10) 02/18/20 10:45 02/25/20 10:44 02/21/20 09:09 Lorazepam (Ativan) 1 mg Q6H PRN ORAL For Anxiety 02/21/20 09:45 02/28/20 09:44 Magnesium Hydroxide (Mom) 30 ml DAILYPRN PRN ORAL Constipation 02/14/20 09:00 03/14/20 08:59 02/19/20 22:58 Metoprolol Tartrate (Lopressor) 50 mg Q12HR ORAL 02/14/20 09:00 05/12/20 08:59 02/21/20 10:14 Ondansetron HCl (Zofran) 4 mg Q6H PRN IV Nausea & Vomiting 02/14/20 14:30 03/10/20 14:29 02/20/20 00:11 Pantoprazole (Protonix) 40 mg BID ORAL 02/14/20 09:00 03/10/20 17:59 02/21/20 08:09 Sevelamer Carbonate (Renvela) 2,400 mg THREE TIMES A DAY ORAL 02/14/20 09:00 05/09/20 17:59 02/21/20 08:10 Vancomycin HCl ([facility] pharmacy to dose) 1 ea DAILY PRN MISC Per rx protocol 02/14/20 09:00 03/12/20 17:14 Laboratory Tests 02/20/20 10:30: White Blood Count 5.2#, Red Blood Count 2.88L, Hemoglobin 8.8L, Hematocrit 26.8L , Mean Corpuscular Volume 93, Mean Corpuscular Hemoglobin 30.5, Mean Corpuscular Hemoglobin Concent 32.8, Red Cell Distribution Width 13.6, Platelet Count 134L, Mean Platelet Volume 6.7, Neutrophils (%) (Auto) 72.4, Lymphocytes ( %) (Auto) 14.6L, Monocytes (%) (Auto) 8.8, Eosinophils (%) (Auto) 3.1H, Basophils (%) (Auto) 1.1 02/21/20 05:45: White Blood Count 5.3, Red Blood Count 3.07L, Hemoglobin 9.3L, Hematocrit 28.5L , Mean Corpuscular Volume 93, Mean Corpuscular Hemoglobin 30.2, Mean Corpuscular Hemoglobin Concent 32.6, Red Cell Distribution Width 13.5, Platelet Count 152, Mean Platelet Volume 6.5, Neutrophils (%) (Auto) 71.9, Lymphocytes (% ) (Auto) 15.1L, Monocytes (%) (Auto) 8.3, Eosinophils (%) (Auto) 3.9H, Basophils (%) (Auto) 0.9, Sodium Level 128L, Potassium Level 5.1, Chloride Level 91L, Carbon Dioxide Level 27, Anion Gap 10, Blood Urea Nitrogen 43H, Creatinine 9.9H, Estimat Glomerular Filtration Rate 4.7, Glucose Level 81, Calcium Level 8.5, Phosphorus Level 4.3, Magnesium Level 3.1H, Total Bilirubin 0.3, Aspartate Amino Transf (AST/SGOT) 26, Alanine Aminotransferase (ALT/SGPT) 8L, Alkaline Phosphatase 74, C-Reactive Protein, Quantitative < 0.4, Total Protein 8.4H, Albumin 3.1L, Globulin 5.3, Albumin/Globulin Ratio 0.6L, Random Vancomycin Level 23.6 Height (Feet): 5 Height (Inches): 8.00 Weight (Pounds): 172 General Appearance: no apparent distress Cardiovascular: normal rate Respiratory/Chest: decreased breath sounds Abdomen: soft Objective No change Jack Pryor MD Feb 21, 2020 10:29
[2020-02-21] MEDS: LORazepam 1mg tab ORAL PRN ×2 (11:14→19:21)
--- NOTE | 2020-02-21 11:30 | Infectious Diseases Prog Note ---
"Assessment/Plan Assessment/Plan antibiotics : vancomycin iv A 1. staph aureus sepsis s/p catheter removal 2. bartholins cyst infection with proteus | enterococcus s/p drainage 3. Hypertension. 4. HIV. 5. Hepatitis C. 6. Renal failure. 7. COVID 19 negative PLAN: 1. Continue IV vancomycin 3 more days 2. We will follow up cultures Subjective ROS Limited/Unobtainable: Yes Allergies: Coded Allergies: ASPIRIN (Unverified Allergy, Unknown, 01/16/20) IODINE (Verified Allergy, Unknown, 01/07/20) Uncoded Allergies: CONTRAST DYE (Allergy, Unknown, 01/07/20) Objective Last 24 Hour Vital Signs Date Time Temp Pulse Resp B/P (MAP) Pulse Ox O2 Delivery O2 Flow Rate FiO2 02/21/20 10:14 61 179/85 02/21/20 10:14 61 179/85 02/21/20 09:39 98.1 02/21/20 09:00 Room Air 02/21/20 08:00 98.1 61 18 179/85 (116) 98 02/21/20 05:03 145/76 02/21/20 04:00 97.8 68 19 148/76 (100) 95 02/21/20 00:23 152/74 02/21/20 00:16 98.8 79 19 152/74 (100) 96 02/20/20 21:00 66 147/77 02/20/20 20:22 Room Air 02/20/20 20:11 98.0 66 19 147/77 (100) 96 02/20/20 17:50 139/76 02/20/20 16:00 98.4 69 19 139/76 (97) 96 02/20/20 12:03 160/75 02/20/20 12:00 97.9 68 17 146/76 (99) 94 Height (Feet): 5 Height (Inches): 8.00 Weight (Pounds): 172 Respiratory/Chest: lungs clear Cardiovascular: normal rate, regular rhythm, no gallop/murmur Abdomen: soft, non tender Extremities: no edema Laboratory Tests Test 02/21/20 05:45 White Blood Count 5.3 K/UL (4.8-10.8) Red Blood Count 3.07 M/UL (4.20-5.40) L Hemoglobin 9.3 G/DL (12.0-16.0) L Hematocrit 28.5 % (37.0-47.0) L Mean Corpuscular Volume 93 FL (80-99) Mean Corpuscular Hemoglobin 30.2 PG (27.0-31.0) Mean Corpuscular Hemoglobin Concent 32.6 G/DL (32.0-36.0) Red Cell Distribution Width 13.5 % (11.6-14.8) Platelet Count 152 K/UL (150-450) Mean Platelet Volume 6.5 FL (6.5-10.1) Neutrophils (%) (Auto) 71.9 % (45.0-75.0) Lymphocytes (%) (Auto) 15.1 % (20.0-45.0) L Monocytes (%) (Auto) 8.3 % (1.0-10.0) Eosinophils (%) (Auto) 3.9 % (0.0-3.0) H Basophils (%) (Auto) 0.9 % (0.0-2.0) Sodium Level 128 MMOL/L (136-145) L Potassium Level 5.1 MMOL/L (3.5-5.1) Chloride Level 91 MMOL/L (98-107) L Carbon Dioxide Level 27 MMOL/L (21-32) Anion Gap 10 mmol/L (5-15) Blood Urea Nitrogen 43 mg/dL (7-18) H Creatinine 9.9 MG/DL (0.55-1.30) H Estimat Glomerular Filtration Rate 4.7 mL/min (>60) Glucose Level 81 MG/DL (74-106) Calcium Level 8.5 MG/DL (8.5-10.1) Phosphorus Level 4.3 MG/DL (2.5-4.9) Magnesium Level 3.1 MG/DL (1.8-2.4) H Total Bilirubin 0.3 MG/DL (0.2-1.0) Aspartate Amino Transf (AST/SGOT) 26 U/L (15-37) Alanine Aminotransferase (ALT/SGPT) 8 U/L (12-78) L Alkaline Phosphatase 74 U/L (46-116) C-Reactive Protein, Quantitative < 0.4 mg/dL (0.00-0.90) Total Protein 8.4 G/DL (6.4-8.2) H Albumin 3.1 G/DL (3.4-5.0) L Globulin 5.3 g/dL Albumin/Globulin Ratio 0.6 (1.0-2.7) L Random Vancomycin Level 23.6 ug/mL Current Medications Medications (Trade) Dose Ordered Sig/Rochelle Route PRN Reason Start Time Stop Time Status Last Admin Dose Admin Acetaminophen (Tylenol) 650 mg Q4H PRN ORAL Mild Pain (Pain Scale 1-3) 02/14/20 09:00 03/11/20 08:59 Amlodipine Besylate (Norvasc) 10 mg DAILY ORAL 02/14/20 09:00 03/11/20 08:59 02/21/20 10:14 Clonidine HCl (Catapres Tab) 0.1 mg Q4H PRN ORAL For BP above 165 systolic 02/14/20 09:00 05/09/20 08:59 02/18/20 23:33 Diphenhydramine HCl (Benadryl) 25 mg Q6H PRN IVP Itching 02/14/20 14:30 03/14/20 14:29 02/21/20 08:10 Docusate Sodium (Colace) 100 mg TID ORAL 02/14/20 09:00 03/10/20 17:59 02/21/20 08:10 Epoetin Jose (Epoetin Jose(ESRD on dialysis)) 2,000 unit SUBQ 02/16/20 21:00 05/16/20 20:59 02/18/20 20:52 Epoetin Jose (Epoetin Jose(ESRD on dialysis)) 3,000 unit SUBQ 02/16/20 21:00 05/16/20 20:59 02/18/20 20:52 Folic Acid (Folate) 2 mg DAILY ORAL 02/14/20 09:00 03/11/20 09:59 02/21/20 08:09 Hydralazine HCl (Apresoline) 75 mg Q8HR ORAL 02/21/20 14:00 05/18/20 17:59 Hydromorphone HCl (Dilaudid) 1 mg Q4H PRN IVP Severe Pain (Pain Scale 7-10) 02/18/20 10:45 02/25/20 10:44 02/21/20 09:09 Lorazepam (Ativan) 1 mg Q6H PRN ORAL For Anxiety 02/21/20 09:45 02/28/20 09:44 02/21/20 11:14 Magnesium Hydroxide (Mom) 30 ml DAILYPRN PRN ORAL Constipation 02/14/20 09:00 03/14/20 08:59 02/19/20 22:58 Metoprolol Tartrate (Lopressor) 50 mg Q12HR ORAL 02/14/20 09:00 05/12/20 08:59 02/21/20 10:14 Ondansetron HCl (Zofran) 4 mg Q6H PRN IV Nausea & Vomiting 02/14/20 14:30 03/10/20 14:29 02/20/20 00:11 Pantoprazole (Protonix) 40 mg BID ORAL 02/14/20 09:00 03/10/20 17:59 02/21/20 08:09 Sevelamer Carbonate (Renvela) 2,400 mg THREE TIMES A DAY ORAL 02/14/20 09:00 05/09/20 17:59 02/21/20 08:10 Vancomycin HCl ([facility] pharmacy to dose) 1 ea DAILY PRN MISC Per rx protocol 02/14/20 09:00 03/12/20 17:14 Elvis Garibay MD Feb 21, 2020 11:30"
[2020-02-21 11:54] VITALS: BP 158/91
[2020-02-21] MEDS: HydrALAZINE 25mg tab ORAL SCH ×2 (13:32→21:01)
--- NOTE | 2020-02-21 14:23 | Surgery Progress Note ---
Surgery Progress Note Subjective Procedure Performed removal of infected right chest wall tunneled hemodialysis catheter Symptoms: improved, tolerating diet, passing flatus, BM Objective Last 24 Hour Vital Signs Date Time Temp Pulse Resp B/P (MAP) Pulse Ox O2 Delivery O2 Flow Rate FiO2 02/21/20 13:32 171/62 02/21/20 11:54 98.1 58 18 158/91 (113) 98 02/21/20 10:14 61 179/85 02/21/20 10:14 61 179/85 02/21/20 09:39 98.1 02/21/20 09:00 Room Air 02/21/20 08:00 98.1 61 18 179/85 (116) 98 02/21/20 05:03 145/76 02/21/20 04:00 97.8 68 19 148/76 (100) 95 02/21/20 00:23 152/74 02/21/20 00:16 98.8 79 19 152/74 (100) 96 02/20/20 21:00 66 147/77 02/20/20 20:22 Room Air 02/20/20 20:11 98.0 66 19 147/77 (100) 96 02/20/20 17:50 139/76 02/20/20 16:00 98.4 69 19 139/76 (97) 96 I&O Intake and Output 02/20/20 02/21/20 19:00 07:00 Intake Total 800 ml 60 ml Output Total 200 ml Balance 800 ml -140 ml IV Total 60 ml Other 800 ml Output Urine Total 200 ml # Voids 1 Dressing: dry Wound: clean Cardiovascular: RSR Respiratory: clear Abdomen: soft, non-tender, present bowel sounds Extremities: no edema, no tenderness, no cyanosis Laboratory Tests Test 02/21/20 05:45 White Blood Count 5.3 K/UL (4.8-10.8) Red Blood Count 3.07 M/UL (4.20-5.40) L Hemoglobin 9.3 G/DL (12.0-16.0) L Hematocrit 28.5 % (37.0-47.0) L Mean Corpuscular Volume 93 FL (80-99) Mean Corpuscular Hemoglobin 30.2 PG (27.0-31.0) Mean Corpuscular Hemoglobin Concent 32.6 G/DL (32.0-36.0) Red Cell Distribution Width 13.5 % (11.6-14.8) Platelet Count 152 K/UL (150-450) Mean Platelet Volume 6.5 FL (6.5-10.1) Neutrophils (%) (Auto) 71.9 % (45.0-75.0) Lymphocytes (%) (Auto) 15.1 % (20.0-45.0) L Monocytes (%) (Auto) 8.3 % (1.0-10.0) Eosinophils (%) (Auto) 3.9 % (0.0-3.0) H Basophils (%) (Auto) 0.9 % (0.0-2.0) Sodium Level 128 MMOL/L (136-145) L Potassium Level 5.1 MMOL/L (3.5-5.1) Chloride Level 91 MMOL/L (98-107) L Carbon Dioxide Level 27 MMOL/L (21-32) Anion Gap 10 mmol/L (5-15) Blood Urea Nitrogen 43 mg/dL (7-18) H Creatinine 9.9 MG/DL (0.55-1.30) H Estimat Glomerular Filtration Rate 4.7 mL/min (>60) Glucose Level 81 MG/DL (74-106) Calcium Level 8.5 MG/DL (8.5-10.1) Phosphorus Level 4.3 MG/DL (2.5-4.9) Magnesium Level 3.1 MG/DL (1.8-2.4) H Total Bilirubin 0.3 MG/DL (0.2-1.0) Aspartate Amino Transf (AST/SGOT) 26 U/L (15-37) Alanine Aminotransferase (ALT/SGPT) 8 U/L (12-78) L Alkaline Phosphatase 74 U/L (46-116) C-Reactive Protein, Quantitative < 0.4 mg/dL (0.00-0.90) Total Protein 8.4 G/DL (6.4-8.2) H Albumin 3.1 G/DL (3.4-5.0) L Globulin 5.3 g/dL Albumin/Globulin Ratio 0.6 (1.0-2.7) L Random Vancomycin Level 23.6 ug/mL Plan Problems: (1) Anemia (2) Bartholin's gland abscess Assessment & Plan: 69-year-old female Bartholin gland abscess cyst. Status post incision and drainage with drain placement. Drain currently in place and still draining. States that it feels better but continues to hurt. Plan for hemodialysis initiated by ramp boss. Patient has a catheter in place unlikely infected. We will continue to monitor for local abscess drainage and improvement. Will monitor drain and manage drain accordingly. Okay for warm compress as needed. Pain management Rx written. Trend labs. Antibiotics per ID. May need repeat drainage if does not improve significantly. Thank you for letting participate in patient's care will follow recommendations anemia - transfuse prbc with HD Continue with catheter drainage functional doing well Discussed care plan with the patient Plan for outpatient [employer] follow-up on discharge. prbc with HD prn as per renal drain okay KUB in AM bowel regimen - constipated Drain has fallen out. Cellulitis is improved. Nontender no draining okay for drain to be out. Outpatient follow-up plan. Persistent fevers right tunneled 4-year-old permacath removed Discussed with medical team nephrology and radiology plan for new line placement this Friday new tunneled left chest wall cath placed for HD doing well comfortable d/c planning (3) Hypoglycemia (4) Vulval cellulitis (5) Missed dialysis (6) ESRD (end stage renal disease) on dialysis (7) Hyperkalemia (8) Substance abuse (9) HIV disease (10) HCV antibody positive (11) Weakness (12) Epileptic seizure, generalized Deon Crowe Feb 21, 2020 14:23
--- NOTE | 2020-02-21 14:49 | NUR ---
P.T Note: P.T evaluation completed and tx initiated. Please refer to P.T evaluation for current functional status. Pt is alert, O x 4, pleasant and cooperative. Pt denied c/o pain however reports c/o feeling generally weak and deconditioned affecting overall mobility performance. Pt currently requires MIN A x 1 in bed mobility and transfers. Pt was only able to stand for 10 secs using the FWW but not able to take steps due to fatigue and c/o dizziness which subsided over time. Discussed with patient her current functional status and safety issues. P.T explained the benefits of SNF for further rehab intervention VS home with P.T if family is available to provide assist at home. Pt however declined the SNF and preferred the latter. Pt stated she will have family who will assist her if she goes home. Pt will be seen for skilled P.T service to improve her strength, balance and endurance to increase her mobility independence and safety until DC. Pt is cleared for OOB to chair activities with nursing assist. Thank you for this referral.
--- NOTE | 2020-02-21 15:17 | NUR ---
DISCHARGE PLANNING S/W PATIENT AT BEDSIDE TO DISCUSS MD RECOMMENDATION FOR SNF. PATIENT REFUSED SNF PLACEMENT. PATIENT STATES SHE WANTS TO RETURN HOME UPON DC. CM OBTAINED OUTPATIENT HD INFO FROM PATIENT FOR [facility] P: [phone] F: [phone] S/W GISELE AT [facility]. CONFIRMED PATIENTS CHAIR TIME T-TH-S [phone] ALL CLINICALS HAVE BEEN FAXED TO [facility]
[2020-02-21 16:00] VITALS: BP 157/74
--- NOTE | 2020-02-21 19:23 | NUR ---
HAND-OFF: Report given to MARTIN Junior.
[2020-02-21] MEDS ORDERED: DIAZEPAM10 MG ORAL (19:51)
[2020-02-21 20:00] VITALS: BP 177/86
--- NOTE | 2020-02-21 20:00 | NUR ---
NURSE NOTES: at 1915 Patient received screaming, crying, sitting at the edge of the bed, very restless, speech is slightly incomprehensible because of restlessness. Attempted to calm patient down and placed back in the middle of the bed. Patient continues to yell. Patient expressed restlessness and anxiety d/t being in the hospital, her bills, etc. Offered ativan but patient was angry and stated that she used to take valium 10mg. Patient still took the ativan while I contact MD. Patient had BM in the bedpan. Cleansed buttock/sacral wounds d/t scratching and applied triad cream. Spoke with Dr. Peralta re: patient's restlessness and ok'd to give valium 10mg BID. Patient at this time is asleep and calmer. Will continue with plan of care. Addendum: 02/21/20 at 2229 by KASHIF FLOOD RN RN Patient asked to be put in pull-up diaper. Explained re: risk for more skin breakdown, verbalized understanding to call for bed espana and diaper is only for emergencies.
[2020-02-21] MEDS: Epoetin Alfa-EPBX(ESRD on dialysis)2000 units/ml vial SUBQ SCH (21:01)
[2020-02-21] MEDS: Epoetin Alfa-EPBX(ESRD on dialysis)3000 units/ml vial SUBQ SCH (21:01)
--- NOTE | 2020-02-21 23:41 | NUR ---
HAND-OFF: Report given to Marie SALAZAR.
--- NOTE | 2020-02-21 23:45 | NUR ---
NURSE NOTES: Received report from Noah to continue care. Pt sleeping in the bed. HD access on L chest. IV site intact. No acute distress noted. Bed locked, lowest position, alarm on, side rails up, call light within reach. Will continue to monitor.
[2020-02-22] VITALS (7 sets, daily range): BP systolic 140–186; BP diastolic 69–85
[2020-02-22] MEDS: HYDROmorphone 1mg/ml Carpuject IVP PRN ×5 (02:41→21:36)
[2020-02-22] MEDS: DiphenhydrAMINE 50mg/ml Inj IVP PRN ×3 (02:45→20:14)
--- NOTE | 2020-02-22 04:04 | NUR ---
NURSE NOTES: Pt reported bleeding on the R upper chest where HD access removed. Tegaderm was teared and small amount of bleeding and blood clots came out. RN put some gauze and tegaderm.
[2020-02-22] MEDS: HydrALAZINE 25mg tab ORAL SCH ×3 (06:17→21:35)
--- NOTE | 2020-02-22 07:24 | NUR ---
HAND-OFF: Report given to MARTIN Sandoval.
--- NOTE | 2020-02-22 07:33 | NUR ---
NURSE NOTES: Received report from MARTIN Salazar. Patient in bed AAOx4, on room air, and bed rest. IV site patent ant intact. RN noted Port-a-cath on left transjugular. Rn notified by previous shift of right port-a-cath bled last night, but dressing changed and no drainage at this time. Skin issue noted, no drainage at this time. Isolation precaution maintained. Bed is locked and placed in lowest position with bed alarm on. Call light within reach. Will continue to monitor Addendum: 02/22/20 at 1650 by Jaime Cavanaugh RN Perma-cath
[2020-02-22] MEDS: Renvela 2400 mg pkt ORAL SCH ×3 (08:21→17:28)
[2020-02-22] MEDS: Metoprolol Tartrate 50mg tab ORAL SCH ×2 (08:23→21:34)
[2020-02-22] MEDS: Docusate 100mg cap ORAL SCH ×3 (08:24→17:28)
--- NOTE | 2020-02-22 09:13 | General Progress Note ---
Assessment/Plan Problem List: (1) Epileptic seizure, generalized ICD Codes: G40.309 - Generalized idiopathic epilepsy and epileptic syndromes, not intractable, without status epilepticus SNOMED: 07081289 (2) Weakness ICD Codes: R53.1 - Weakness SNOMED: 68425448 (3) HIV disease ICD Codes: B20 - Human immunodeficiency virus [HIV] disease SNOMED: 08127840 (4) Substance abuse ICD Codes: F19.10 - Other psychoactive substance abuse, uncomplicated SNOMED: 76136160 (5) Bartholin's gland abscess ICD Codes: N75.1 - Abscess of Bartholin's gland SNOMED: 42544725 (6) Hypoglycemia ICD Codes: E16.2 - Hypoglycemia, unspecified SNOMED: 902284786 Status: stable Assessment/Plan: cont iv abx per id- 3 more days HD per renal monitor h/h transfuse as needed epo and iron replacement dvt/stress ulcer prophylaxis. pain rx anxiolytics pt eval can dc home if abx can be arranged at home Subjective ROS Limited/Unobtainable: No Constitutional: Reports: malaise, weakness HEENT: Reports: no symptoms Cardiovascular: Reports: no symptoms Respiratory: Reports: no symptoms Gastrointestinal/Abdominal: Reports: no symptoms Genitourinary: Reports: no symptoms Neurologic/Psychiatric: Reports: no symptoms Endocrine: Reports: no symptoms Hematologic/Lymphatic: Reports: no symptoms Allergies: Coded Allergies: ASPIRIN (Unverified Allergy, Unknown, 01/16/20) IODINE (Verified Allergy, Unknown, 01/07/20) Uncoded Allergies: CONTRAST DYE (Allergy, Unknown, 01/07/20) All Systems: reviewed and negative except above Subjective no new complaints. c/o pain and anxiety. refusing snf placement. 3 more days of iv abx. Objective Last 24 Hour Vital Signs Date Time Temp Pulse Resp B/P (MAP) Pulse Ox O2 Delivery O2 Flow Rate FiO2 02/22/20 08:24 55 147/70 02/22/20 08:23 55 147/70 02/22/20 06:17 141/69 02/22/20 06:17 141/69 (93) 02/22/20 04:39 186/85 02/22/20 04:00 97.8 61 18 186/85 (118) 95 02/22/20 00:00 98.1 60 18 146/79 (101) 95 02/21/20 21:01 166/67 02/21/20 21:01 67 166/76 02/21/20 21:00 Room Air 02/21/20 20:00 96.1 75 18 177/86 (116) 93 02/21/20 18:40 99.2 02/21/20 16:00 99.2 62 18 157/74 (101) 97 02/21/20 13:32 171/62 02/21/20 11:54 98.1 58 18 158/91 (113) 98 02/21/20 10:14 61 179/85 02/21/20 10:14 61 179/85 Intake and Output 02/21/20 02/22/20 19:00 07:00 Intake Total 480 ml 360 ml Output Total 2000 ml Balance -1520 ml 360 ml Intake Oral 480 ml Other 360 ml Hemodialysis UF 2000 ml # Voids 1 # Bowel Movements 2 Height (Feet): 5 Height (Inches): 8.00 Weight (Pounds): 172 Objective General Appearance: WD/WN, lethargic EENT: PERRL/EOMI, normal ENT inspection Neck: non-tender, normal alignment Cardiovascular: normal peripheral pulses, normal rate, regular rhythm Respiratory/Chest: chest wall non-tender, lungs clear, normal breath sounds Abdomen: normal bowel sounds, non tender, soft, no organomegaly Extremities: normal range of motion Edema: no edema noted Arm (L), no edema noted Arm (R) Neurologic: mixologist II-XII grossly normal, no motor/sensory deficits, abnormal gait , alert, oriented x 3, responsive Michael Peralta MD Feb 22, 2020 09:13
--- NOTE | 2020-02-22 09:52 | NUR ---
RD ASSESSMENT & RECOMMENDATIONS SEE CARE ACTIVITY FOR COMPLETE ASSESSMENT DAILY ESTIMATED NEEDS: Needs based on ESRD on HD 67.4kg abw 30-35 kcals/kg 2099-1541 total kcals 1.2-1.8 g protein/kg 81-121 g total protein fluid per MD, on HD NUTRITION DIAGNOSIS: Increased kcal and pro needs r/t renal dysfunction and wound healing as evidenced by pt w/ esrd on HD, admitted w/ partial thickness wounds @ sacrum and lower L buttocks. CURRENT DIET:Renal PO DIET RECOMMENDATIONS: Maintain renal diet/ texture as sandra (monitor need for texture downgrade) ADDITIONAL RECOMMENDATIONS: 1) Obtain a standing scale wt as able or calibrated bed scale 2) Monitor for po intake and need for supplement -> Add NEPRO 1 tetra qdaily w/ variable intake at this time -> on valium, monitor PO intake, and BG POC 3) Trend Na, need for fluid restriction 4) Wound care: Nephrovite qdaily 5) Monitor PO tolerance, modified texture needs: c/o mouth pain
--- NOTE | 2020-02-22 10:39 | Infectious Diseases Prog Note ---
"Assessment/Plan Assessment/Plan antibiotics : vancomycin iv A 1. staph aureus sepsis s/p catheter removal 2. bartholins cyst infection with proteus | enterococcus s/p drainage 3. Hypertension. 4. HIV. 5. Hepatitis C. 6. Renal failure. 7. COVID 19 negative PLAN: 1. Continue IV vancomycin 2 more days may d/c if patient discharged 2. We will follow up cultures Subjective Constitutional: Denies: fever, chills Respiratory: Denies: shortness of breath, dry cough Gastrointestinal/Abdominal: Denies: nausea, vomiting, diarrhea Musculoskeletal: Reports: pain Allergies: Coded Allergies: ASPIRIN (Unverified Allergy, Unknown, 01/16/20) IODINE (Verified Allergy, Unknown, 01/07/20) Uncoded Allergies: CONTRAST DYE (Allergy, Unknown, 01/07/20) Objective Last 24 Hour Vital Signs Date Time Temp Pulse Resp B/P (MAP) Pulse Ox O2 Delivery O2 Flow Rate FiO2 02/22/20 09:00 98.2 55 18 147/70 (95) 95 02/22/20 09:00 Room Air 02/22/20 08:24 55 147/70 02/22/20 08:23 55 147/70 02/22/20 06:17 141/69 02/22/20 06:17 141/69 (93) 02/22/20 04:39 186/85 02/22/20 04:00 97.8 61 18 186/85 (118) 95 02/22/20 00:00 98.1 60 18 146/79 (101) 95 02/21/20 21:01 166/67 02/21/20 21:01 67 166/76 02/21/20 21:00 Room Air 02/21/20 20:00 96.1 75 18 177/86 (116) 93 02/21/20 18:40 99.2 02/21/20 16:00 99.2 62 18 157/74 (101) 97 02/21/20 13:32 171/62 02/21/20 11:54 98.1 58 18 158/91 (113) 98 Height (Feet): 5 Height (Inches): 8.00 Weight (Pounds): 172 Respiratory/Chest: lungs clear Cardiovascular: normal rate, regular rhythm, no gallop/murmur Abdomen: soft, non tender Extremities: no edema, other - left subclavian catheter Current Medications Medications (Trade) Dose Ordered Sig/Rochelle Route PRN Reason Start Time Stop Time Status Last Admin Dose Admin Acetaminophen (Tylenol) 650 mg Q4H PRN ORAL Mild Pain (Pain Scale 1-3) 02/14/20 09:00 03/11/20 08:59 Amlodipine Besylate (Norvasc) 10 mg DAILY ORAL 02/14/20 09:00 03/11/20 08:59 02/22/20 08:24 Clonidine HCl (Catapres Tab) 0.1 mg Q4H PRN ORAL For BP above 165 systolic 02/14/20 09:00 05/09/20 08:59 02/22/20 04:39 Diazepam (Valium) 10 mg BIDPRN PRN ORAL For Anxiety 02/21/20 20:00 02/28/20 19:59 02/22/20 09:21 Diphenhydramine HCl (Benadryl) 25 mg Q6H PRN IVP Itching 02/14/20 14:30 03/14/20 14:29 02/22/20 09:21 Docusate Sodium (Colace) 100 mg TID ORAL 02/14/20 09:00 03/10/20 17:59 02/21/20 18:10 Epoetin Jose (Epoetin Jose(ESRD on dialysis)) 2,000 unit SUBQ 02/16/20 21:00 05/16/20 20:59 02/21/20 21:01 Epoetin Jose (Epoetin Jose(ESRD on dialysis)) 3,000 unit SUBQ 02/16/20 21:00 05/16/20 20:59 02/21/20 21:01 Folic Acid (Folate) 2 mg DAILY ORAL 02/14/20 09:00 03/11/20 09:59 02/22/20 08:23 Hydralazine HCl (Apresoline) 75 mg Q8HR ORAL 02/21/20 14:00 05/18/20 17:59 02/22/20 06:17 Hydromorphone HCl (Dilaudid) 1 mg Q4H PRN IVP Severe Pain (Pain Scale 7-10) 02/18/20 10:45 02/25/20 10:44 02/22/20 08:26 Magnesium Hydroxide (Mom) 30 ml DAILYPRN PRN ORAL Constipation 02/14/20 09:00 03/14/20 08:59 02/19/20 22:58 Metoprolol Tartrate (Lopressor) 50 mg Q12HR ORAL 02/14/20 09:00 05/12/20 08:59 02/21/20 21:01 Ondansetron HCl (Zofran) 4 mg Q6H PRN IV Nausea & Vomiting 02/14/20 14:30 03/10/20 14:29 02/20/20 00:11 Pantoprazole (Protonix) 40 mg BID ORAL 02/14/20 09:00 03/10/20 17:59 02/22/20 08:23 Sevelamer Carbonate (Renvela) 2,400 mg THREE TIMES A DAY ORAL 02/14/20 09:00 05/09/20 17:59 02/22/20 08:21 Vancomycin HCl (Vanco pharmacy to dose) 1 ea DAILY PRN MISC Per rx protocol 02/14/20 09:00 03/12/20 17:14 Elvis Garibay MD Feb 22, 2020 10:39"
--- NOTE | 2020-02-22 11:44 | Surgery Progress Note ---
Surgery Progress Note Subjective Procedure Performed removal of infected right chest wall tunneled hemodialysis catheter Additional Comments skin oozing from right chest wall catheter began within the last 24hrs dressings applied and hemostatic now will monitor not ready for dc Objective Last 24 Hour Vital Signs Date Time Temp Pulse Resp B/P (MAP) Pulse Ox O2 Delivery O2 Flow Rate FiO2 02/22/20 09:00 98.2 55 18 147/70 (95) 95 02/22/20 09:00 Room Air 02/22/20 08:24 55 147/70 02/22/20 08:23 55 147/70 02/22/20 06:17 141/69 02/22/20 06:17 141/69 (93) 02/22/20 04:39 186/85 02/22/20 04:00 97.8 61 18 186/85 (118) 95 02/22/20 00:00 98.1 60 18 146/79 (101) 95 02/21/20 21:01 166/67 02/21/20 21:01 67 166/76 02/21/20 21:00 Room Air 02/21/20 20:00 96.1 75 18 177/86 (116) 93 02/21/20 18:40 99.2 02/21/20 16:00 99.2 62 18 157/74 (101) 97 02/21/20 13:32 171/62 02/21/20 11:54 98.1 58 18 158/91 (113) 98 I&O Intake and Output 02/21/20 02/22/20 19:00 07:00 Intake Total 480 ml 360 ml Output Total 2000 ml Balance -1520 ml 360 ml Intake Oral 480 ml Other 360 ml Hemodialysis UF 2000 ml # Voids 1 # Bowel Movements 2 Dressing: saturated, bloody Drains: none Cardiovascular: RSR Respiratory: decreased breath sounds Abdomen: soft, non-tender, present bowel sounds, non-distended Extremities: no edema, no tenderness, no cyanosis Plan Problems: (1) Anemia (2) Bartholin's gland abscess Assessment & Plan: 69-year-old female Bartholin gland abscess cyst. Status post incision and drainage with drain placement. Drain currently in place and still draining. States that it feels better but continues to hurt. Plan for hemodialysis initiated by voice network administrator. Patient has a catheter in place unlikely infected. We will continue to monitor for local abscess drainage and improvement. Will monitor drain and manage drain accordingly. Okay for warm compress as needed. Pain management Rx written. Trend labs. Antibiotics per ID. May need repeat drainage if does not improve significantly. Thank you for letting participate in patient's care will follow recommendations anemia - transfuse prbc with HD Continue with catheter drainage functional doing well Discussed care plan with the patient Plan for outpatient COMMUTATOR REPAIRER follow-up on discharge. prbc with HD prn as per renal drain okay KUB in AM bowel regimen - constipated Drain has fallen out. Cellulitis is improved. Nontender no draining okay for drain to be out. Outpatient follow-up plan. Persistent fevers right tunneled 2-year-old permacath removed Discussed with medical team nephrology and radiology plan for new line placement this Friday new tunneled left chest wall cath placed for HD doing well comfortable d/c planning bleeding from right chest wall prior port site. hemostasis with dressings at bedside hold d/c (3) Hypoglycemia (4) Vulval cellulitis (5) Missed dialysis (6) ESRD (end stage renal disease) on dialysis (7) Hyperkalemia (8) Substance abuse (9) HIV disease (10) HCV antibody positive (11) Weakness (12) Epileptic seizure, generalized Deon Crowe Feb 22, 2020 11:44
--- NOTE | 2020-02-22 12:44 | Nephrology Progress Note ---
Assessment/Plan Problem List: (1) ESRD (end stage renal disease) on dialysis (2) Hyperkalemia (3) Bartholin's gland abscess (4) Anemia (5) HCV antibody positive (6) HIV disease (7) Substance abuse Assessment Patient presents with hyperkalemia, anemia and 1 week of no dialysis Previous frequent chest pains. Anemia and evidence of upper GI bleed and [employer] in the past. Patient was on anticoagulation for atrial fibrillation however it is unclear how compliant the patient is. History of frequent hyperkalemia due to missing hemodialysis. End-stage renal disease on hemodialysis. The patient has a right chest permacath which is not dressed and appears to either be infected or very prone to infection. HIV disease. Substance abuse with previous urine test positive for narcotics and cocaine. History of hepatitis C virus. History of hypertensive kidney disease. Plan February 21: Dialyzed yesterday. No labs drawn today. Blood pressure controlled. Will check lab tomorrow. February 20: Due for dialysis today. Labs reviewed. Blood pressure medication adjusted. Continue per consultants. February 19: Will order dialysis tomorrow February 20. Will check lab in a.m. Continue per consultants. February 18: Was dialyzed yesterday February 17. Has a new permacath over the left side of the chest. Patient also was transfused yesterday. Anemia improved. Next dialysis February 20Friday. February 17: Last dialysis was February 14. Patient due to have a permacath today and then arrange for dialysis and 2 units of blood transfusion afterwards. Discussed with RN. Labs reviewed. Expect correction of the chemistry panel after dialysis. February 16: Last dialysis February 14. Due for dialysis tomorrow February 17. Due for insertion of a permacath by IR tomorrow. The removed catheter on February 14 has a negative tip culture February 15: Patient last dialyzed February 14. Today's labs reviewed. Discussed with Dr. Crowe. The dialysis catheter was removed yesterday. New catheter will be placed on February 17. 2 sets of blood cultures ordered. Discussed with RN, and charge nurse. February 14: Patient was dialyzed yesterday. Today's labs reviewed. Discussed with PMD. The ID csm consultant suggest removal of the permacath due to infection. Will arrange for dialysis today. Will remove the permacath after dialysis today. Will reinsert a dialysis catheter 48 hours later. Discussed with RN. Orders in EMR. February 13: Due for dialysis today. Hemoglobin higher after transfusion. Continue per consultants. February 12: Next dialysis tomorrow on February 13. Hemoglobin remains low patient is due for another transfusion today. Continue per current treatment plan. February 11: Patient was dialyzed yesterday. Labs reviewed. Hemoglobin low. Due for transfusion. Next dialysis February 13, unless she needs it earlier. Medications are reviewed. Metoprolol dose increased. February 10: Patient due for dialysis today February 10. No labs drawn today. Will check renal parameters tomorrow. Continue per consultants. Patient anemic, transfusion is suggested. Patient dialyzed February 08, late night, for potassium of 7.4. Will give Kayexalate for high potassium as needed Adjust blood pressure medication. Folate supplement. Due for transfusion. Per orders. Subjective ROS Limited/Unobtainable: No Constitutional: Reports: malaise, weakness Objective Objective Last 24 Hour Vital Signs Date Time Temp Pulse Resp B/P (MAP) Pulse Ox O2 Delivery O2 Flow Rate FiO2 02/22/20 12:00 98.0 61 18 143/69 (93) 96 02/22/20 09:00 98.2 55 18 147/70 (95) 95 02/22/20 09:00 Room Air 02/22/20 08:24 55 147/70 02/22/20 08:23 55 147/70 02/22/20 06:17 141/69 02/22/20 06:17 141/69 (93) 02/22/20 04:39 186/85 02/22/20 04:00 97.8 61 18 186/85 (118) 95 02/22/20 00:00 98.1 60 18 146/79 (101) 95 02/21/20 21:01 166/67 02/21/20 21:01 67 166/76 02/21/20 21:00 Room Air 02/21/20 20:00 96.1 75 18 177/86 (116) 93 02/21/20 18:40 99.2 02/21/20 16:00 99.2 62 18 157/74 (101) 97 02/21/20 13:32 171/62 Intake and Output 02/21/20 02/22/20 19:00 07:00 Intake Total 480 ml 360 ml Output Total 2000 ml Balance -1520 ml 360 ml Intake Oral 480 ml Other 360 ml Hemodialysis UF 2000 ml # Voids 1 # Bowel Movements 2 No blood work for today Height (Feet): 5 Height (Inches): 8.00 Weight (Pounds): 172 General Appearance: no apparent distress Cardiovascular: normal rate, bradycardia Respiratory/Chest: decreased breath sounds Abdomen: soft, distended Objective No change Jack Pryor MD Feb 22, 2020 12:44
--- NOTE | 2020-02-22 14:20 | NUR ---
NURSE NOTES: Patient wound site on right shoulder started bleeding again. RN changed dressing but was saturated again after [address] Crowe and made aware Addendum: 02/22/20 at 1450 by Jaime Cavanaugh RN VS was 150/66, HR 64, O2 sat. 95, Temp. 97.9, RR 19
--- NOTE | 2020-02-22 15:17 | NUR ---
ENTRY LEVEL SALES ASSOCIATE NOTES SPOKE WITH GISELE FROM [facility],VERIFIED RECEIPT OF ATB ORDER. VANCO TO BE GIVEN WITH HD TIMES TWO DOSES. REFERRAL FAXED TO [facility]. PENDING ACCEPTANCE. WILL FOLLOW UP.
[2020-02-22] MEDS ORDERED: Surgicel 4in x 8in TOPIC ONE ×2 (15:30)
[2020-02-22] MEDS ORDERED: Lidocaine 1% Plain 30 ml INJ ONE (15:45)
--- NOTE | 2020-02-22 15:50 | NUR ---
NURSE NOTES: The patients wound was consistently bleeding even with continuos pressure. ED doctor was paged to suture wound to stop bleeding, suture was done at bedside and covered with surgicel 4x8. Bleeding stopped, VS stable, Dr. vega was notified and made aware of situation. Will continue to monitor. CXR was ordered stat, cbc, PT, and PTT
--- NOTE | 2020-02-22 16:21 | NUR ---
*-*DISCHARGE PLANNED*-* PATIENT HAS BEEN ACCEPTED WITH: [facility] P: [phone] S/W SHWETA, WHO STATED THEY WILL SERVICE PATIENT UPON DISCHARGE.
--- NOTE | 2020-02-22 16:37 | Emergency Room Report ---
Physical Exam Vital Signs Date Time Temp Pulse Resp B/P (MAP) Pulse Ox O2 Delivery O2 Flow Rate FiO2 02/18/20 08:00 98.4 63 18 158/84 (108) 94 02/18/20 09:00 Room Air Medical Decision Making Diagnostic Impression: Primary Impression: Hyperkalemia Additional Impressions: Missed dialysis Vulval cellulitis Anemia Bartholin's gland abscess Hypoglycemia ESRD (end stage renal disease) on dialysis Laceration of right chest wall ER Course Inpatient consult I was consulted by ICU charge nurse secondary to bleeding hemodialysis site. Physical Exam: GENERAL: Awake_alert_ nontoxic, no acute distress Spo2 []% on [RA], [normal] EYES: Extraocular muscles are intact. Conjunctivae clear. Lids without swelling ENT: External nose and ear normal_in_appearance. Oropharynx clear. Head_ atraumatic, Moist_oral_mucosa NECK: No JVD. No meningismus. No thyromegaly. Supple. Trachea midline RESP: Normal respiratory effort. Symmetric rise. No stridor. Clear_to_ auscultation_No_rales_No_wheezes CHEST: L chest subclavian tunneled cath. Insertion site is C/D/I. R chest venous oozing from 3cm incision. No active hemorrhage. CARDIAC: Regular rate and regular rhythm on_auscultation No_significant pedal edema. ABDOMEN: Soft. Nondistended. Nontender_No_rebound_or_guarding. MSK: Normal muscle tone, without rigidity. Extremities without asymmetric deformity or swelling. SKIN: Warm and dry. No visible cyanosis or pallor NEUROLOGIC: Alert, oriented x3. Motor_and_sensation_grossly_intact. No truncal ataxia. Gait_normal Psych: Normal mood and affect, normal judgment and insight Laceration Repair by me: Anesthesia: 1% lidocaine locally 5cc subcutaneous. No flash on drawback of syringe Location: R chest Tendon/Joint/Nerves: No injury Foreign body: None detected after copious irrigation and exploration Technique: Simple Interrupted Sutures (3-0 nylon x 4) Complexity: No subcutaneous sutures/mucosal repair/edge excision Post Closure Length: 3 cm Wound is hemostastic. Surgicel applied. Wound care performed. Instructed RN at bedside to notify admitting MD for Stat repeat cbc and coags ordered. CXR. No signs of hemorrhagic shock at the moment. No evidence of compartment syndrome, neurologic injury, vascular injury, open joint, tendon laceration, or foreign body. Last Vital Signs Date Time Temp Pulse Resp B/P (MAP) Pulse Ox O2 Delivery O2 Flow Rate FiO2 02/22/20 13:04 143/69 02/22/20 12:00 98.0 61 18 96 02/22/20 09:00 Room Air Disposition: ADMITTED INPATIENT Admit Decision Time: 16:00 Condition: Improved Referrals: NOT CHOSEN IPA/,REFERRING (PCP) Shelley Vickers D.O. Feb 22, 2020 16:37
[2020-02-22 16:39] LABS: BASOPHILS % (AUTO) 1.4 % (0.0-2.0); EOSINOPHILS % (AUTO) 3.3 % (0.0-3.0); HEMATOCRIT 24.9 % (37.0-47.0); LYMPHOCYTES % (AUTO) 13.5 % (20.0-45.0); MEAN CORPUSCULAR VOLUME 94 FL (80-99); MONOCYTES % (AUTO) 12.6 % (1.0-10.0); NEUTROPHILS % (AUTO) 69.3 % (45.0-75.0); PLATELET COUNT 153 K/UL (150-450); RED BLOOD COUNT 2.66 M/UL (4.20-5.40); RED CELL DISTRIBUTION WIDTH 14.6 % (11.6-14.8); WHITE BLOOD COUNT 4.4 K/UL (4.8-10.8)
[2020-02-22 16:45] LABS: INR 1.2 (0.9-1.1)
--- NOTE | 2020-02-22 17:49 | NUR ---
NURSE NOTES: apprentice plant attendant contacted Dr. Peralta to clarify discharge order. Dr. Peralta said to transfer patient to tele to monitor patient for possible recurrent of bleeding. press hand supervisor is aware and awaiting for bed.
--- NOTE | 2020-02-22 18:16 | Diagnostic Imaging Report ---
Indication: Cough Technique: Single AP view of the chest. Comparison: Chest radiograph dated 02/09/2020 Findings: The cardiomediastinal silhouette is within normal limits. No airspace consolidation. Mild pulmonary vascular congestion. No pneumothorax or pleural effusion. No acute osseous abnormality. Interval removal of right approach tunneled dialysis catheter and placement of left approach tunneled dialysis catheter, with tip in expected location of the cavoatrial junction. IMPRESSION: 1. Mild pulmonary vascular congestion. 2. Removal of right approach tunneled dialysis catheter and placement of left tunneled dialysis catheter.
--- NOTE | 2020-02-22 18:45 | NUR ---
NURSE NOTES: Received patient from 4E MARTIN Sandoval. Drowsy but easily arousable. VS taken: 96.4F, 142/69, 63PR, 99% O2 sat. IV line on left hand g22 intact. No SOB or acute distress. Hob elevated. Bed locked in lowest position. Call light within reach.
--- NOTE | 2020-02-22 19:00 | NUR ---
HAND-OFF: Report given to Linda SALAZAR.
--- NOTE | 2020-02-22 19:01 | NUR ---
HAND-OFF: Report given to MARTIN Adamson tele. Nurse was notified regarding patients condition and what transpired on floor. RN made nurse aware of patients wound.
--- NOTE | 2020-02-22 19:30 | NUR ---
NURSE NOTES: RECEIVED REPORT FROM MARTIN URRUTIA. PATIENT AWAKE IN BED, AOX4, VERBALLY RESPONSIVE AND ABLE TO MAKE NEEDS KNOWN. NO COMPLAINTS OF PAIN OR DISCOMFORT AT THIS TIME. BREATHING IS EVEN AND UNLABORED ON 3LPM VIA NC, NO S/SX OF RESPIRATORY DISTRESS. PLACED ON DOWELER. IV SITE ON LEFT HAND PATENT, INTACT, ASYMPTOMATIC, AND SALINE-LOCKED. NO BLEEDING NOTED ON RIGHT UPPER CHEST (OLD CATHETER SITE), NO BLEEDING NOTED ON LEFT TRANSJUGULAR TUNNELED CATHETER SITE. CONTACT PRECAUTIONS IN PLACE. BED LOCKED AND IN LOWEST POSITION, SIDERAILS UP X 3. CALL LIGHT WITHIN REACH. WILL CONTINUE TO MONITOR FOR ANY CHANGES.
[2020-02-22] MEDS ORDERED: Milk of Magnesia 30ml Ud ORAL PRN (21:30)
--- NOTE | 2020-02-22 21:45 | NUR ---
NURSE NOTES: PATIENT REFUSED TO HAVE DRESSING APPLIED TO PRESSURE INJURIES ON SACRAL AREA & LEFT BUTTOCKS AREA. PER PATIENT, "I DON'T NEED THOSE. I DON'T HAVE WOUNDS." EDUCATED PATIENT ON FINDINGS AND THE IMPORTANCE OF APPROPRIATE WOUND CARE TO FACILITATE HEALING, HOWEVER PATIENT STILL REFUSED.
[2020-02-22 22:32] LABS: BASOPHILS % (AUTO) 0.9 % (0.0-2.0); EOSINOPHILS % (AUTO) 3.7 % (0.0-3.0); HEMATOCRIT 25.3 % (37.0-47.0); HEMOGLOBIN 8.1 G/DL (12.0-16.0); LYMPHOCYTES % (AUTO) 13.7 % (20.0-45.0); MEAN CORPUSCULAR VOLUME 95 FL (80-99); MONOCYTES % (AUTO) 11.9 % (1.0-10.0); NEUTROPHILS % (AUTO) 69.8 % (45.0-75.0); PLATELET COUNT 160 K/UL (150-450); RED BLOOD COUNT 2.68 M/UL (4.20-5.40); RED CELL DISTRIBUTION WIDTH 15.1 % (11.6-14.8); WHITE BLOOD COUNT 5.1 K/UL (4.8-10.8)
[2020-02-23] VITALS (7 sets, daily range): BP systolic 143–170; BP diastolic 65–91
--- NOTE | 2020-02-23 00:30 | NUR ---
NURSE NOTES: PATIENT SINUS BRADYCARDIC ON THE UTILITY SYSTEM OPERATOR. WENT TO PATIENT'S ROOM AND SHE WAS ASLEEP. WOKE PATIENT UP AND CHECKED RIGHT RADIAL PULSE BY PALPATION, HR 62. WILL CONTINUE TO MONITOR PATIENT FOR ANY CHANGES.
[2020-02-23] MEDS: HYDROmorphone 1mg/ml Carpuject IVP PRN ×5 (01:43→22:16)
[2020-02-23] MEDS: DiphenhydrAMINE 50mg/ml Inj IVP PRN ×3 (03:41→20:59)
[2020-02-23] MEDS: HydrALAZINE 25mg tab ORAL SCH ×3 (05:35→22:15)
[2020-02-23 06:46] LABS: BASOPHILS % (AUTO) 0.8 % (0.0-2.0); EOSINOPHILS % (AUTO) 3.9 % (0.0-3.0); HEMATOCRIT 25.4 % (37.0-47.0); HEMOGLOBIN 8.1 G/DL (12.0-16.0); LYMPHOCYTES % (AUTO) 17.8 % (20.0-45.0); MEAN CORPUSCULAR VOLUME 94 FL (80-99); MONOCYTES % (AUTO) 9.5 % (1.0-10.0); PLATELET COUNT 152 K/UL (150-450); RED BLOOD COUNT 2.69 M/UL (4.20-5.40); RED CELL DISTRIBUTION WIDTH 14.1 % (11.6-14.8); WHITE BLOOD COUNT 4.8 K/UL (4.8-10.8)
--- NOTE | 2020-02-23 07:12 | NUR ---
NURSE NOTES: Received patient in bed awake, complaining of pain. Informed of next administration of pain meds. IV line intact. No bleeding on right chest, dressing clean and dry. Left transjugular catheter for HD intact, no bleeding or signs of infection. HOB elevated. Bed locked in lowest position. Call light within reach. Will continue plan of care.
--- NOTE | 2020-02-23 07:20 | NUR ---
NURSE NOTES: PATIENT CALLED HER AND [facility] REPORTING SHE WAS BEING "NEGLECTED AND LEFT IN PAIN". INFORMED LAFD AND PATIENT'S THAT PATIENT IS SAFE AND PLAN OF CARE IS BEING FOLLOWING ORDERED, PAIN MEDICATIONS ARE BEING ADMINISTERED ORDERED. PATIENT WAS REMINDED THAT HER PAIN MEDICATION IS DUE EVERY FOUR HOURS NEEDED- LAST ADMINISTRATION WAS 0542, THEREFORE NEXT ADMINISTRATION DUE AT 0942.
--- NOTE | 2020-02-23 07:24 | NUR ---
HAND-OFF: Report given to MARTIN URRUTIA. PLAN OF CARE ENDORSED.
[2020-02-23 07:26] LABS: PHOSPHORUS 3.5 MG/DL (2.5-4.9)
[2020-02-23 07:28] LABS: ALANINE AMINOTRANSFERASE 13 U/L (12-78); ALBUMIN 2.9 G/DL (3.4-5.0); ALBUMIN/GLOBULIN RATIO 0.6 (1.0-2.7); ALKALINE PHOSPHATASE 71 U/L (46-116); ANION GAP 6 mmol/L (5-15); ASPARTATE AMINO TRANSFERASE 21 U/L (15-37); BILIRUBIN,TOTAL 0.4 MG/DL (0.2-1.0); BLOOD UREA NITROGEN 30 mg/dL (7-18); CALCIUM 7.9 MG/DL (8.5-10.1); CARBON DIOXIDE 31 MMOL/L (21-32); CHLORIDE 96 MMOL/L (98-107); CREATININE 8.9 MG/DL (0.55-1.30); POTASSIUM 4.7 MMOL/L (3.5-5.1); SODIUM 133 MMOL/L (136-145)
--- NOTE | 2020-02-23 07:45 | Discharge Summary ---
DATE OF ADMISSION: 02/09/2020 DATE OF DISCHARGE: 02/22/2020 ADMISSION DIAGNOSES: 1. End-stage renal disease. 2. Dental infection. 3. Hypertension. 4. Hepatitis C. 5. HIV. 6. Paroxysmal atrial fibrillation. 7. Depression. 8. Chronic pain. 9. Congestive heart failure. DISCHARGE DIAGNOSES: 1. End-stage renal disease. 2. Dental infection. 3. Hypertension. 4. Hepatitis C. 5. HIV. 6. Paroxysmal atrial fibrillation. 7. Depression. 8. Chronic pain. 9. Congestive heart failure. HOSPITAL COURSE: The patient is a pleasant female who presented with complaints of shortness of breath. She also was noted to be in heart failure. She underwent an I and D of a infected bartholins cyst. She is admitted for iv abx and blood pressure medication titration. The patient was noted to be volume overloaded. She was hemodialyzed. She had positive blood cultures. she was diagnosed with a possible catheter infection. Her dialysis catheter was discontinued. She was left central line free for 48 hours and a new catheter was placed before next hemodialysis. She continued on her pain medications and IV antibiotics. On discharge, she was stable. She had 1 additional hemodialysis. DISCHARGE MEDICATIONS: Please see discharge medication list for discharge medications. DIET: Cardiac diet. ACTIVITIES: Ad arie. FOLLOWUP: The patient will follow up in one to two weeks in the office. She was referred to SNF, but the patient adamantly refused. Home Health was arranged for the patient. Michael Peralta M.D. DR: SHIRLEY JOB#: [id number] CC: AMBERLY
[2020-02-23] MEDS ORDERED: HYDROmorphone 1mg/ml Carpuject IVP SCH (08:45)
[2020-02-23] MEDS: Docusate 100mg cap ORAL SCH ×3 (08:58→17:44)
[2020-02-23] MEDS: Renvela 2400 mg pkt ORAL SCH ×3 (08:59→17:45)
[2020-02-23] MEDS: Metoprolol Tartrate 50mg tab ORAL SCH ×2 (09:00→20:47)
--- NOTE | 2020-02-23 09:11 | NUR ---
NURSE NOTES: Patient complaining tongue is burning and feels swollen, Dr Peralta notified, awaiting orders. Dr Pryor also notified that discharge order is on hold.
--- NOTE | 2020-02-23 09:28 | General Progress Note ---
Assessment/Plan Problem List: (1) Epileptic seizure, generalized ICD Codes: G40.309 - Generalized idiopathic epilepsy and epileptic syndromes, not intractable, without status epilepticus SNOMED: 49746125 (2) Weakness ICD Codes: R53.1 - Weakness SNOMED: 21467869 (3) HIV disease ICD Codes: B20 - Human immunodeficiency virus [HIV] disease SNOMED: 81328983 (4) Substance abuse ICD Codes: F19.10 - Other psychoactive substance abuse, uncomplicated SNOMED: 87601797 (5) Bartholin's gland abscess ICD Codes: N75.1 - Abscess of Bartholin's gland SNOMED: 16034699 (6) Hypoglycemia ICD Codes: E16.2 - Hypoglycemia, unspecified SNOMED: 439058142 Status: stable Assessment/Plan: cont iv abx surgery to check bleeding 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 rx HD per renal dc planning if no further bleeding Subjective ROS Limited/Unobtainable: No Constitutional: Reports: malaise, weakness HEENT: Reports: no symptoms Cardiovascular: Reports: no symptoms Respiratory: Reports: no symptoms Gastrointestinal/Abdominal: Reports: no symptoms Genitourinary: Reports: no symptoms Neurologic/Psychiatric: Reports: no symptoms Endocrine: Reports: no symptoms Hematologic/Lymphatic: Reports: no symptoms Allergies: Coded Allergies: ASPIRIN (Unverified Allergy, Unknown, 01/16/20) IODINE (Verified Allergy, Unknown, 01/07/20) Uncoded Allergies: CONTRAST DYE (Allergy, Unknown, 01/07/20) All Systems: reviewed and negative except above Subjective dc held yesterday as pt had spontaneous bleeding from olf HD catheter site right chest. bleeding did not improved with pressure. ER came and placed sutures. ER MD recommended transfer to monitored bed- concern that pt may continue to bleeding. No obvious bleeding this am. h/h stable. Objective Last 24 Hour Vital Signs Date Time Temp Pulse Resp B/P (MAP) Pulse Ox O2 Delivery O2 Flow Rate FiO2 02/23/20 08:00 97.8 66 22 165/76 (105) 98 02/23/20 06:12 98.4 02/23/20 05:35 156/75 02/23/20 04:15 66 156/75 (102) 02/23/20 04:00 98.4 56 20 156/75 (102) 97 02/23/20 04:00 70 02/23/20 00:00 48 02/23/20 00:00 98.8 60 20 143/65 (91) 97 02/22/20 21:35 153/72 02/22/20 21:34 65 153/72 02/22/20 21:00 Nasal Cannula 3.0 02/22/20 21:00 97.7 65 18 153/72 (99) 98 02/22/20 20:00 69 02/22/20 16:00 97.2 65 19 140/70 (93) 96 02/22/20 13:04 143/69 02/22/20 12:00 98.0 61 18 143/69 (93) 96 Intake and Output 02/22/20 02/23/20 19:00 07:00 Intake Total 1220 ml 240 ml Balance 1220 ml 240 ml Intake Oral 1220 ml 240 ml Laboratory Tests 02/22/20 16:00: White Blood Count 4.4L, Red Blood Count 2.66L, Hemoglobin 8.0L, Hematocrit 24.9L , Mean Corpuscular Volume 94, Mean Corpuscular Hemoglobin 29.9, Mean Corpuscular Hemoglobin Concent 32.0, Red Cell Distribution Width 14.6, Platelet Count 153, Mean Platelet Volume 5.7L, Neutrophils (%) (Auto) 69.3, Lymphocytes ( %) (Auto) 13.5L, Monocytes (%) (Auto) 12.6H, Eosinophils (%) (Auto) 3.3H, Basophils (%) (Auto) 1.4, Prothrombin Time 12.6H, Prothromb Time International Ratio 1.2H, Activated Partial Thromboplast Time 32 02/22/20 21:50: White Blood Count 5.1, Red Blood Count 2.68L, Hemoglobin 8.1L, Hematocrit 25.3L , Mean Corpuscular Volume 95, Mean Corpuscular Hemoglobin 30.4, Mean Corpuscular Hemoglobin Concent 32.1, Red Cell Distribution Width 15.1H, Platelet Count 160, Mean Platelet Volume 6.0L, Neutrophils (%) (Auto) 69.8, Lymphocytes (%) (Auto) 13.7L, Monocytes (%) (Auto) 11.9H, Eosinophils (%) (Auto ) 3.7H, Basophils (%) (Auto) 0.9 7/22/20 05:48: White Blood Count 4.8, Red Blood Count 2.69L, Hemoglobin 8.1L, Hematocrit 25.4L , Mean Corpuscular Volume 94, Mean Corpuscular Hemoglobin 30.1, Mean Corpuscular Hemoglobin Concent 32.0, Red Cell Distribution Width 14.1, Platelet Count 152, Mean Platelet Volume 6.0L, Neutrophils (%) (Auto) 68.0, Lymphocytes ( %) (Auto) 17.8L, Monocytes (%) (Auto) 9.5, Eosinophils (%) (Auto) 3.9H, Basophils (%) (Auto) 0.8, Sodium Level 133L, Potassium Level 4.7, Chloride Level 96L, Carbon Dioxide Level 31, Anion Gap 6, Blood Urea Nitrogen 30H, Creatinine 8.9H, Estimat Glomerular Filtration Rate 5.5, Glucose Level 77, Calcium Level 7.9L, Phosphorus Level 3.5, Total Bilirubin 0.4, Aspartate Amino Transf (AST/SGOT) 21, Alanine Aminotransferase (ALT/SGPT) 13, Alkaline Phosphatase 71, C-Reactive Protein, Quantitative < 0.4, Total Protein 8.0, Albumin 2.9L, Globulin 5.1, Albumin/Globulin Ratio 0.6L, Random Vancomycin Level 17.7 Height (Feet): 5 Height (Inches): 8.00 Weight (Pounds): 179 Objective General Appearance: WD/WN, lethargic EENT: PERRL/EOMI, normal ENT inspection Neck: non-tender, normal alignment Cardiovascular: normal peripheral pulses, normal rate, regular rhythm Respiratory/Chest: chest wall non-tender, lungs clear, normal breath sounds Abdomen: normal bowel sounds, non tender, soft, no organomegaly Extremities: normal range of motion Edema: no edema noted Arm (L), no edema noted Arm (R) 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
[2020-02-23] MEDS ORDERED: Lidocaine 2% Visc 15ml soln ORAL PRN (09:30)
--- NOTE | 2020-02-23 10:37 | Infectious Diseases Prog Note ---
"Assessment/Plan Assessment/Plan antibiotics : vancomycin iv A 1. staph aureus sepsis s/p catheter removal 2. bartholins cyst infection with proteus | enterococcus s/p drainage 3. Hypertension. 4. HIV. 5. Hepatitis C. 6. Renal failure. 7. COVID 19 negative PLAN: 1. Continue IV vancomycin 1 more day 2. We will follow up cultures Subjective ROS Limited/Unobtainable: Yes Allergies: Coded Allergies: ASPIRIN (Unverified Allergy, Unknown, 01/16/20) IODINE (Verified Allergy, Unknown, 01/07/20) Uncoded Allergies: CONTRAST DYE (Allergy, Unknown, 01/07/20) Objective Last 24 Hour Vital Signs Date Time Temp Pulse Resp B/P (MAP) Pulse Ox O2 Delivery O2 Flow Rate FiO2 02/23/20 08:00 97.8 66 22 165/76 (105) 98 02/23/20 06:12 98.4 02/23/20 05:35 156/75 02/23/20 04:15 66 156/75 (102) 02/23/20 04:00 98.4 56 20 156/75 (102) 97 02/23/20 04:00 70 02/23/20 00:00 48 02/23/20 00:00 98.8 60 20 143/65 (91) 97 02/22/20 21:35 153/72 02/22/20 21:34 65 153/72 02/22/20 21:00 Nasal Cannula 3.0 02/22/20 21:00 97.7 65 18 153/72 (99) 98 02/22/20 20:00 69 02/22/20 16:00 97.2 65 19 140/70 (93) 96 02/22/20 13:04 143/69 02/22/20 12:00 98.0 61 18 143/69 (93) 96 Height (Feet): 5 Height (Inches): 8.00 Weight (Pounds): 179 Respiratory/Chest: lungs clear Cardiovascular: normal rate, regular rhythm, no gallop/murmur Abdomen: soft, non tender Extremities: no edema Laboratory Tests Test 02/22/20 16:00 02/22/20 21:50 02/23/20 05:48 White Blood Count 4.4 K/UL (4.8-10.8) L 5.1 K/UL (4.8-10.8) 4.8 K/UL (4.8-10.8) Red Blood Count 2.66 M/UL (4.20-5.40) L 2.68 M/UL (4.20-5.40) L 2.69 M/UL (4.20-5.40) L Hemoglobin 8.0 G/DL (12.0-16.0) L 8.1 G/DL (12.0-16.0) L 8.1 G/DL (12.0-16.0) L Hematocrit 24.9 % (37.0-47.0) L 25.3 % (37.0-47.0) L 25.4 % (37.0-47.0) L Mean Corpuscular Volume 94 FL (80-99) 95 FL (80-99) 94 FL (80-99) Mean Corpuscular Hemoglobin 29.9 PG (27.0-31.0) 30.4 PG (27.0-31.0) 30.1 PG (27.0-31.0) Mean Corpuscular Hemoglobin Concent 32.0 G/DL (32.0-36.0) 32.1 G/DL (32.0-36.0) 32.0 G/DL (32.0-36.0) Red Cell Distribution Width 14.6 % (11.6-14.8) 15.1 % (11.6-14.8) H 14.1 % (11.6-14.8) Platelet Count 153 K/UL (150-450) 160 K/UL (150-450) 152 K/UL (150-450) Mean Platelet Volume 5.7 FL (6.5-10.1) L 6.0 FL (6.5-10.1) L 6.0 FL (6.5-10.1) L Neutrophils (%) (Auto) 69.3 % (45.0-75.0) 69.8 % (45.0-75.0) 68.0 % (45.0-75.0) Lymphocytes (%) (Auto) 13.5 % (20.0-45.0) L 13.7 % (20.0-45.0) L 17.8 % (20.0-45.0) L Monocytes (%) (Auto) 12.6 % (1.0-10.0) H 11.9 % (1.0-10.0) H 9.5 % (1.0-10.0) Eosinophils (%) (Auto) 3.3 % (0.0-3.0) H 3.7 % (0.0-3.0) H 3.9 % (0.0-3.0) H Basophils (%) (Auto) 1.4 % (0.0-2.0) 0.9 % (0.0-2.0) 0.8 % (0.0-2.0) Prothrombin Time 12.6 SEC (9.30-11.50) H Prothromb Time International Ratio 1.2 (0.9-1.1) H Activated Partial Thromboplast Time 32 SEC (23-33) Sodium Level 133 MMOL/L (136-145) L Potassium Level 4.7 MMOL/L (3.5-5.1) Chloride Level 96 MMOL/L (98-107) L Carbon Dioxide Level 31 MMOL/L (21-32) Anion Gap 6 mmol/L (5-15) Blood Urea Nitrogen 30 mg/dL (7-18) H Creatinine 8.9 MG/DL (0.55-1.30) H Estimat Glomerular Filtration Rate 5.5 mL/min (>60) Glucose Level 77 MG/DL (74-106) Calcium Level 7.9 MG/DL (8.5-10.1) L Phosphorus Level 3.5 MG/DL (2.5-4.9) Total Bilirubin 0.4 MG/DL (0.2-1.0) Aspartate Amino Transf (AST/SGOT) 21 U/L (15-37) Alanine Aminotransferase (ALT/SGPT) 13 U/L (12-78) Alkaline Phosphatase 71 U/L (46-116) C-Reactive Protein, Quantitative < 0.4 mg/dL (0.00-0.90) Total Protein 8.0 G/DL (6.4-8.2) Albumin 2.9 G/DL (3.4-5.0) L Globulin 5.1 g/dL Albumin/Globulin Ratio 0.6 (1.0-2.7) L Random Vancomycin Level 17.7 ug/mL Current Medications Medications (Trade) Dose Ordered Sig/Rochelle Route PRN Reason Start Time Stop Time Status Last Admin Dose Admin Acetaminophen (Tylenol) 650 mg Q4H PRN ORAL Mild Pain (Pain Scale 1-3) 02/22/20 21:30 03/23/20 21:29 Amlodipine Besylate (Norvasc) 10 mg DAILY ORAL 02/23/20 09:00 03/11/20 08:59 Clonidine HCl (Catapres Tab) 0.1 mg Q4H PRN ORAL For BP above 165 systolic 02/22/20 21:30 05/22/20 21:29 Diazepam (Valium) 10 mg BIDPRN PRN ORAL For Anxiety 02/22/20 21:30 02/29/20 21:29 02/23/20 02:54 Diphenhydramine HCl (Benadryl) 25 mg Q6H PRN IVP Itching 02/22/20 21:30 03/23/20 21:29 02/23/20 03:41 Docusate Sodium (Colace) 100 mg TID ORAL 02/23/20 09:00 03/10/20 17:59 02/23/20 08:58 Epoetin Jose (Epoetin Jose(ESRD on dialysis)) 2,000 unit SUBQ 02/23/20 21:00 05/16/20 20:59 Epoetin Jose (Epoetin Jose(ESRD on dialysis)) 3,000 unit SUBQ 02/23/20 21:00 05/16/20 20:59 Folic Acid (Folate) 2 mg DAILY ORAL 02/23/20 09:00 03/11/20 09:59 02/23/20 08:59 Hydralazine HCl (Apresoline) 75 mg Q8HR ORAL 02/22/20 22:00 05/18/20 17:59 02/23/20 05:35 Hydromorphone HCl (Dilaudid) 1 mg Q4H PRN IVP Severe Pain (Pain Scale 7-10) 02/22/20 21:45 02/25/20 21:44 02/23/20 05:42 Lidocaine HCl (Xylocaine Viscous) 15 ml Q4H PRN ORAL pain in mouth 02/23/20 09:30 05/23/20 09:29 Magnesium Hydroxide (Mom) 30 ml DAILYPRN PRN ORAL Constipation 02/22/20 21:30 03/23/20 21:29 Metoprolol Tartrate (Lopressor) 50 mg Q12HR ORAL 02/22/20 21:30 05/22/20 21:29 02/22/20 21:34 Ondansetron HCl (Zofran) 4 mg Q6H PRN IV Nausea & Vomiting 02/22/20 21:30 03/23/20 21:29 Pantoprazole (Protonix) 40 mg BID ORAL 02/23/20 09:00 03/10/20 17:59 02/23/20 08:59 Sevelamer Carbonate (Renvela) 2,400 mg THREE TIMES A DAY ORAL 02/23/20 09:00 05/09/20 17:59 02/23/20 08:59 Vancomycin HCl ([facility] pharmacy to dose) 1 ea DAILY PRN MISC Per rx protocol 02/22/20 21:30 03/23/20 21:29 Vancomycin HCl 500 mg/Dextrose 110 ml @ 110 mls/hr ONCE IVPB 02/23/20 12:00 02/23/20 14:00 Elvis Garibay MD Feb 23, 2020 10:37"
[2020-02-23] MEDS ORDERED: Vancomycin 500mg/D5W 100ml IVPB SCH ×2 (12:00)
--- NOTE | 2020-02-23 13:23 | Surgery Progress Note ---
Surgery Progress Note Subjective Procedure Performed removal of infected right chest wall tunneled hemodialysis catheter Additional Comments suture placed doing well no n/v/f/c Objective Last 24 Hour Vital Signs Date Time Temp Pulse Resp B/P (MAP) Pulse Ox O2 Delivery O2 Flow Rate FiO2 02/23/20 08:00 97.8 66 22 165/76 (105) 98 02/23/20 06:12 98.4 02/23/20 05:35 156/75 02/23/20 04:15 66 156/75 (102) 02/23/20 04:00 98.4 56 20 156/75 (102) 97 02/23/20 04:00 70 02/23/20 00:00 48 02/23/20 00:00 98.8 60 20 143/65 (91) 97 02/22/20 21:35 153/72 02/22/20 21:34 65 153/72 02/22/20 21:00 Nasal Cannula 3.0 02/22/20 21:00 97.7 65 18 153/72 (99) 98 02/22/20 20:00 69 02/22/20 16:00 97.2 65 19 140/70 (93) 96 I&O Intake and Output 02/22/20 02/23/20 18:59 06:59 Intake Total 1220 ml 240 ml Balance 1220 ml 240 ml Intake Oral 1220 ml 240 ml Dressing: bloody Wound: other Drains: other Cardiovascular: RSR Respiratory: decreased breath sounds Abdomen: soft, non-tender, present bowel sounds Extremities: no edema, no tenderness, no cyanosis Laboratory Tests Test 02/22/20 16:00 02/22/20 21:50 02/23/20 05:48 White Blood Count 4.4 K/UL (4.8-10.8) L 5.1 K/UL (4.8-10.8) 4.8 K/UL (4.8-10.8) Red Blood Count 2.66 M/UL (4.20-5.40) L 2.68 M/UL (4.20-5.40) L 2.69 M/UL (4.20-5.40) L Hemoglobin 8.0 G/DL (12.0-16.0) L 8.1 G/DL (12.0-16.0) L 8.1 G/DL (12.0-16.0) L Hematocrit 24.9 % (37.0-47.0) L 25.3 % (37.0-47.0) L 25.4 % (37.0-47.0) L Mean Corpuscular Volume 94 FL (80-99) 95 FL (80-99) 94 FL (80-99) Mean Corpuscular Hemoglobin 29.9 PG (27.0-31.0) 30.4 PG (27.0-31.0) 30.1 PG (27.0-31.0) Mean Corpuscular Hemoglobin Concent 32.0 G/DL (32.0-36.0) 32.1 G/DL (32.0-36.0) 32.0 G/DL (32.0-36.0) Red Cell Distribution Width 14.6 % (11.6-14.8) 15.1 % (11.6-14.8) H 14.1 % (11.6-14.8) Platelet Count 153 K/UL (150-450) 160 K/UL (150-450) 152 K/UL (150-450) Mean Platelet Volume 5.7 FL (6.5-10.1) L 6.0 FL (6.5-10.1) L 6.0 FL (6.5-10.1) L Neutrophils (%) (Auto) 69.3 % (45.0-75.0) 69.8 % (45.0-75.0) 68.0 % (45.0-75.0) Lymphocytes (%) (Auto) 13.5 % (20.0-45.0) L 13.7 % (20.0-45.0) L 17.8 % (20.0-45.0) L Monocytes (%) (Auto) 12.6 % (1.0-10.0) H 11.9 % (1.0-10.0) H 9.5 % (1.0-10.0) Eosinophils (%) (Auto) 3.3 % (0.0-3.0) H 3.7 % (0.0-3.0) H 3.9 % (0.0-3.0) H Basophils (%) (Auto) 1.4 % (0.0-2.0) 0.9 % (0.0-2.0) 0.8 % (0.0-2.0) Prothrombin Time 12.6 SEC (9.30-11.50) H Prothromb Time International Ratio 1.2 (0.9-1.1) H Activated Partial Thromboplast Time 32 SEC (23-33) Sodium Level 133 MMOL/L (136-145) L Potassium Level 4.7 MMOL/L (3.5-5.1) Chloride Level 96 MMOL/L (98-107) L Carbon Dioxide Level 31 MMOL/L (21-32) Anion Gap 6 mmol/L (5-15) Blood Urea Nitrogen 30 mg/dL (7-18) H Creatinine 8.9 MG/DL (0.55-1.30) H Estimat Glomerular Filtration Rate 5.5 mL/min (>60) Glucose Level 77 MG/DL (74-106) Calcium Level 7.9 MG/DL (8.5-10.1) L Phosphorus Level 3.5 MG/DL (2.5-4.9) Total Bilirubin 0.4 MG/DL (0.2-1.0) Aspartate Amino Transf (AST/SGOT) 21 U/L (15-37) Alanine Aminotransferase (ALT/SGPT) 13 U/L (12-78) Alkaline Phosphatase 71 U/L (46-116) C-Reactive Protein, Quantitative < 0.4 mg/dL (0.00-0.90) Total Protein 8.0 G/DL (6.4-8.2) Albumin 2.9 G/DL (3.4-5.0) L Globulin 5.1 g/dL Albumin/Globulin Ratio 0.6 (1.0-2.7) L Random Vancomycin Level 17.7 ug/mL Plan Problems: (1) Anemia (2) Bartholin's gland abscess Assessment & Plan: 69-year-old female Bartholin gland abscess cyst. Status post incision and drainage with drain placement. Drain currently in place and still draining. States that it feels better but continues to hurt. Plan for hemodialysis initiated by allergist/immunologist physician. Patient has a catheter in place unlikely infected. We will continue to monitor for local abscess drainage and improvement. Will monitor drain and manage drain accordingly. Okay for warm compress as needed. Pain management Rx written. Trend labs. Antibiotics per ID. May need repeat drainage if does not improve significantly. Thank you for letting participate in patient's care will follow recommendations anemia - transfuse prbc with HD Continue with catheter drainage functional doing well Discussed care plan with the patient Plan for outpatient MACH[facility] follow-up on discharge. prbc with HD prn as per renal drain okay KUB in AM bowel regimen - constipated Drain has fallen out. Cellulitis is improved. Nontender no draining okay for drain to be out. Outpatient follow-up plan. Persistent fevers right tunneled 2-year-old permacath removed Discussed with medical team nephrology and radiology plan for new line placement this Friday new tunneled left chest wall cath placed for HD doing well comfortable d/c planning bleeding from right chest wall prior port site. hemostasis with dressings at bedside hold d/c suture placed stable labs noted okay (3) Hypoglycemia (4) Vulval cellulitis (5) Missed dialysis (6) ESRD (end stage renal disease) on dialysis (7) Hyperkalemia (8) Substance abuse (9) HIV disease (10) HCV antibody positive (11) Weakness (12) Epileptic seizure, generalized Deon Crowe Feb 23, 2020 13:23
--- NOTE | 2020-02-23 13:25 | NUR ---
CASE MANAGEMENT:REVIEW SI;SEPSIS. BARTHOLINS CYST INFECTION W/PROTEUS. ESRD on HD 98.8 48 22 165/76 97% ON RA H/H 8.1/25.4 NA 133 CA 7.9 ALB 2.9 IS;VANCOMYCIN IV ONCE PROTONIX PO BID DILAUDID IV Q4 PRN BENADRYL IV PRN LOPRESSOR PO Q12 HYDRALAZINE PO Q8 TRANSFERRED FROM MED SURG TO TELE 02/22/20 TELEMETRY STATUS DCP;FROM HOME PLAN; DC TO HOME WITH HOME HEALTH WHEN STABLE
--- NOTE | 2020-02-23 13:28 | Nephrology Progress Note ---
Assessment/Plan Problem List: (1) ESRD (end stage renal disease) on dialysis (2) Hyperkalemia (3) Bartholin's gland abscess (4) Anemia (5) HCV antibody positive (6) HIV disease (7) Substance abuse Assessment Patient presents with hyperkalemia, anemia and 1 week of no dialysis Previous frequent chest pains. Anemia and evidence of upper GI bleed and [employer] in the past. Patient was on anticoagulation for atrial fibrillation however it is unclear how compliant the patient is. History of frequent hyperkalemia due to missing hemodialysis. End-stage renal disease on hemodialysis. The patient has a right chest permacath which is not dressed and appears to either be infected or very prone to infection. HIV disease. Substance abuse with previous urine test positive for narcotics and cocaine. History of hepatitis C virus. History of hypertensive kidney disease. Plan February 22: Order dialysis for today. Lab reviewed. Blood pressure acceptable. Hemoglobin 8.1 February 21: Dialyzed yesterday. No labs drawn today. Blood pressure controlled. Will check lab tomorrow. February 20: Due for dialysis today. Labs reviewed. Blood pressure medication adjusted. Continue per consultants. February 19: Will order dialysis tomorrow February 20. Will check lab in a.m. Continue per consultants. February 18: Was dialyzed yesterday February 17. Has a new permacath over the left side of the chest. Patient also was transfused yesterday. Anemia improved. Next dialysis February 20Friday. February 17: Last dialysis was February 14. Patient due to have a permacath today and then arrange for dialysis and 2 units of blood transfusion afterwards. Discussed with RN. Labs reviewed. Expect correction of the chemistry panel after dialysis. February 16: Last dialysis February 14. Due for dialysis tomorrow February 17. Due for insertion of a permacath by IR tomorrow. The removed catheter on February 14 has a negative tip culture February 15: Patient last dialyzed February 14. Today's labs reviewed. Discussed with Dr. Crowe. The dialysis catheter was removed yesterday. New catheter will be placed on Friday, February 17. 2 sets of blood cultures ordered. Discussed with RN, and charge nurse. February 14: Patient was dialyzed yesterday. Today's labs reviewed. Discussed with PMD. The ID [employer] consultant suggest removal of the permacath due to infection. Will arrange for dialysis today. Will remove the permacath after dialysis today. Will reinsert a dialysis catheter 48 hours later. Discussed with RN. Orders in EMR. February 13: Due for dialysis today. Hemoglobin higher after transfusion. Continue per consultants. February 12: Next dialysis tomorrow on February 13. Hemoglobin remains low patient is due for another transfusion today. Continue per current treatment plan. February 11: Patient was dialyzed yesterday. Labs reviewed. Hemoglobin low. Due for transfusion. Next dialysis February 13, unless she needs it earlier. Medications are reviewed. Metoprolol dose increased. February 10: Patient due for dialysis today February 10. No labs drawn today. Will check renal parameters tomorrow. Continue per consultants. Patient anemic, transfusion is suggested. Patient dialyzed February 08, late night, for potassium of 7.4. Will give Kayexalate for high potassium as needed Adjust blood pressure medication. Folate supplement. Due for transfusion. Per orders. Subjective ROS Limited/Unobtainable: No Constitutional: Reports: malaise Objective Objective Last 24 Hour Vital Signs Date Time Temp Pulse Resp B/P (MAP) Pulse Ox O2 Delivery O2 Flow Rate FiO2 02/23/20 08:00 97.8 66 22 165/76 (105) 98 02/23/20 06:12 98.4 02/23/20 05:35 156/75 02/23/20 04:15 66 156/75 (102) 02/23/20 04:00 98.4 56 20 156/75 (102) 97 02/23/20 04:00 70 02/23/20 00:00 48 02/23/20 00:00 98.8 60 20 143/65 (91) 97 02/22/20 21:35 153/72 02/22/20 21:34 65 153/72 02/22/20 21:00 Nasal Cannula 3.0 02/22/20 21:00 97.7 65 18 153/72 (99) 98 02/22/20 20:00 69 02/22/20 16:00 97.2 65 19 140/70 (93) 96 Intake and Output 02/22/20 02/23/20 18:59 06:59 Intake Total 1220 ml 240 ml Balance 1220 ml 240 ml Intake Oral 1220 ml 240 ml Laboratory Tests 02/22/20 16:00: White Blood Count 4.4L, Red Blood Count 2.66L, Hemoglobin 8.0L, Hematocrit 24.9L , Mean Corpuscular Volume 94, Mean Corpuscular Hemoglobin 29.9, Mean Corpuscular Hemoglobin Concent 32.0, Red Cell Distribution Width 14.6, Platelet Count 153, Mean Platelet Volume 5.7L, Neutrophils (%) (Auto) 69.3, Lymphocytes ( %) (Auto) 13.5L, Monocytes (%) (Auto) 12.6H, Eosinophils (%) (Auto) 3.3H, Basophils (%) (Auto) 1.4, Prothrombin Time 12.6H, Prothromb Time International Ratio 1.2H, Activated Partial Thromboplast Time 32 02/22/20 21:50: White Blood Count 5.1, Red Blood Count 2.68L, Hemoglobin 8.1L, Hematocrit 25.3L , Mean Corpuscular Volume 95, Mean Corpuscular Hemoglobin 30.4, Mean Corpuscular Hemoglobin Concent 32.1, Red Cell Distribution Width 15.1H, Platelet Count 160, Mean Platelet Volume 6.0L, Neutrophils (%) (Auto) 69.8, Lymphocytes (%) (Auto) 13.7L, Monocytes (%) (Auto) 11.9H, Eosinophils (%) (Auto ) 3.7H, Basophils (%) (Auto) 0.9 02/23/20 05:48: White Blood Count 4.8, Red Blood Count 2.69L, Hemoglobin 8.1L, Hematocrit 25.4L , Mean Corpuscular Volume 94, Mean Corpuscular Hemoglobin 30.1, Mean Corpuscular Hemoglobin Concent 32.0, Red Cell Distribution Width 14.1, Platelet Count 152, Mean Platelet Volume 6.0L, Neutrophils (%) (Auto) 68.0, Lymphocytes ( %) (Auto) 17.8L, Monocytes (%) (Auto) 9.5, Eosinophils (%) (Auto) 3.9H, Basophils (%) (Auto) 0.8, Sodium Level 133L, Potassium Level 4.7, Chloride Level 96L, Carbon Dioxide Level 31, Anion Gap 6, Blood Urea Nitrogen 30H, Creatinine 8.9H, Estimat Glomerular Filtration Rate 5.5, Glucose Level 77, Calcium Level 7.9L, Phosphorus Level 3.5, Total Bilirubin 0.4, Aspartate Amino Transf (AST/SGOT) 21, Alanine Aminotransferase (ALT/SGPT) 13, Alkaline Phosphatase 71, C-Reactive Protein, Quantitative < 0.4, Total Protein 8.0, Albumin 2.9L, Globulin 5.1, Albumin/Globulin Ratio 0.6L, Random Vancomycin Level 17.7 Height (Feet): 5 Height (Inches): 8.00 Weight (Pounds): 179 General Appearance: no apparent distress Cardiovascular: normal rate Respiratory/Chest: decreased breath sounds, other - Had suture put in right subclavian site of the previous catheter which was bleeding last night by ER Abdomen: soft Objective No change Jack Pryor MD Feb 23, 2020 13:28
--- NOTE | 2020-02-23 19:20 | NUR ---
NURSE NOTES: RECEIVED REPORT FROM MARTIN URRUTIA. PATIENT AWAKE IN BED, AOX4, VERBALLY RESPONSIVE AND ABLE TO MAKE NEEDS KNOWN. [facility] FROM [facility] AT BEDSIDE FOR ORDERED HD TODAY. NO COMPLAINTS OF PAIN OR DISCOMFORT AT THIS TIME, REMINDED PATIENT WHEN NEXT ADMINISTRATION IS DUE. BREATHING IS EVEN AND UNLABORED ON 3LPM VIA NC, NO S/SX OF RESPIRATORY DISTRESS AT THIS TIME. IV SITE ON LEFT HAND PATENT, INTACT, ASYMPTOMATIC, AND SALINE-LOCKED. NO S/SX BLEEDING NOTED AT RIGHT UPPER CHEST (PREVIOUS CATHETER SITE). NO S/SX BLEEDING NOTED AT LEFT TRANSJUGULAR TUNNELED DIALYSIS CATHETER, DRESSING CLEAN, DRY AND INTACT. CONTACT ISOLATION IN PLACE. BED LOCKED AND IN LOWEST POSITION, SIDERAILS UP X 3. CALL LIGHT WITHIN REACH. WILL CONTINUE TO MONITOR FOR ANY CHANGES.
[2020-02-23] MEDS: Epoetin Alfa-EPBX(ESRD on dialysis)3000 units/ml vial SUBQ SCH (20:47)
[2020-02-23] MEDS: Epoetin Alfa-EPBX(ESRD on dialysis)2000 units/ml vial SUBQ SCH (20:47)
--- NOTE | 2020-02-23 20:48 | NUR ---
NURSE NOTES: EPOETIN 3000 UNITS AND EPOETIN 2000 UNITS HELD BECAUSE SBP >170- TWO MEASUREMENTS TAKEN, THE FIRST BEING 184 AND THE SECOND 170. MADE DR. VALDOVINOS AWARE, NO NEW ORDERS.
--- NOTE | 2020-02-23 22:01 | NUR ---
NURSE NOTES: HD COMPLETED- 2L OUT. V/S ARE FOLLOWS: BP 167/60, HR 80, TEMP 98.9F, RR 20, SAO2 97% ON 3LPM VIA NC. WILL CONTINUE TO MONITOR FOR ANY CHANGES.
[2020-02-24] VITALS: BP 165/71
--- NOTE | 2020-02-24 01:40 | NUR ---
NURSE NOTES: PATIENT ASLEEP IN BED, APPEARS CALM AND COMFORTABLE WITH NO S/SX OF PAIN OR DISCOMFORT. BREATHING IS EVEN AND UNLABORED ON ROOM AIR, NO S/SX OF RESPIRATORY DISTRESS. UPON WALKING OUT OF THE ROOM, PATIENT AWOKE AND INQUIRED ABOUT NEXT PAIN MEDICATION DOSE. INFORMED PATIENT NEXT ADMINISTRATION IS DUE IN ABOUT AN HOUR, AND REMINDED HER TIMES ARE WRITTEN ON THE COMMUNICATION BOARD. ASKED PATIENT IF SHE WANTED HER NASAL CANNULA BACK ON, BUT PATIENT REFUSED. BED LOCKED AND IN LOWEST POSITION, SIDERAILS UP X 3. CALL LIGHT WITHIN REACH. WILL CONTINUE TO MONITOR FOR ANY CHANGES.
[2020-02-24] MEDS: HYDROmorphone 1mg/ml Carpuject IVP PRN ×4 (03:28→22:38)
[2020-02-24 04:00] VITALS: BP 156/68
[2020-02-24] MEDS: DiphenhydrAMINE 50mg/ml Inj IVP PRN (04:42)
--- NOTE | 2020-02-24 04:45 | NUR ---
NURSE NOTES: PRIMARY RN CALLED TO PATIENT'S ROOM BECAUSE PATIENT WAS REQUESTING PAIN MEDICATION. INFORMED PATIENT THAT PAIN MEDICATION WAS ADMINISTERED AT 0328 REQUESTED. PATIENT CLAIMS SHE DOES NOT REMEMBER AND WAS "ASLEEP". REMINDED PATIENT SHE WAS ASSESSED PRIOR TO ADMINISTRATION AND WAS AWAKE PRIOR TO PAIN MEDICATION BEING GIVEN; PER PATIENT SHE "DOES NOT REMEMBER". Addendum: 02/24/20 at 0508 by Linda Ayers RN PATIENT THEN BEGAN TO CRY AND REQUESTED HER VALIUM PRESCRIBED. MEDICATION GIVEN ORDERED. PATIENT IS NOW CALM AND COMFORTABLE IN BED WITH NO S/SX OF DISTRESS. PATIENT VERBALIZED UNDERSTANDING HER PAIN MEDICATION IS DUE AT 0730.
[2020-02-24] MEDS: HydrALAZINE 25mg tab ORAL SCH ×3 (05:09→22:00)
--- NOTE | 2020-02-24 05:50 | NUR ---
NURSE NOTES: PATIENT IS ASLEEP IN BED, APPEARS CALM AND COMFORTABLE. NO VISIBLE S/SX OF PAIN, DISCOMFORT, OR DISTRESS. BED LOCKED AND IN LOWEST POSITION, SIDERAILS UP X 3. CALL LIGHT WITHIN REACH. WILL CONTINUE TO MONITOR FOR ANY CHANGES.
--- NOTE | 2020-02-24 07:22 | NUR ---
NURSE NOTES: Received patient in bed asleep. No SOB or acute distress. IV line intact. HOB elevated. Bed locked in lowest position. Call light within reach. Will continue plan of care and pain mgnt.
--- NOTE | 2020-02-24 07:30 | NUR ---
HAND-OFF: Report given to MARTIN URRUTIA. PATIENT IN STABLE CONDITION. PLAN OF CARE ENDORSED.
[2020-02-24 08:00] VITALS: BP 165/80
[2020-02-24] MEDS: Docusate 100mg cap ORAL SCH ×3 (08:43→19:10)
[2020-02-24] MEDS: Renvela 2400 mg pkt ORAL SCH ×3 (08:43→19:10)
[2020-02-24] MEDS: Metoprolol Tartrate 50mg tab ORAL SCH (08:44)
[2020-02-24] MEDS ORDERED: METOPROLOL TART50 MG ORAL (09:09)
[2020-02-24] MEDS ORDERED: HYDRALAZINE HCL25 M1 ORAL (09:09)
[2020-02-24] MEDS ORDERED: PANTOPRAZOLE SO40 MG ORAL (09:09)
[2020-02-24 09:30] LABS: HEMOGLOBIN 7.7 G/DL (12.0-16.0); MEAN CORPUSCULAR VOLUME 95 FL (80-99); PLATELET COUNT 137 K/UL (150-450); RED BLOOD COUNT 2.53 M/UL (4.20-5.40); RED CELL DISTRIBUTION WIDTH 14.3 % (11.6-14.8); WHITE BLOOD COUNT 3.1 K/UL (4.8-10.8)
--- NOTE | 2020-02-24 09:40 | NUR ---
DISCHARGE PLANNING CALL MADE TO [facility] [phone]. S/W PRATEEK AND INFORMED PATIENT DC TO HOME TODAY. PER PRATEEK, HH WILL CONTACT PATIENT TO SCHEDULE INITIAL VISIT.
--- NOTE | 2020-02-24 10:14 | Nephrology Progress Note ---
Assessment/Plan Problem List: (1) ESRD (end stage renal disease) on dialysis (2) Hyperkalemia (3) Bartholin's gland abscess (4) Anemia (5) HCV antibody positive (6) HIV disease (7) Substance abuse Assessment Patient presents with hyperkalemia, anemia and 1 week of no dialysis Previous frequent chest pains. Anemia and evidence of upper GI bleed and [employer] in the past. Patient was on anticoagulation for atrial fibrillation however it is unclear how compliant the patient is. History of frequent hyperkalemia due to missing hemodialysis. End-stage renal disease on hemodialysis. The patient has a right chest permacath which is not dressed and appears to either be infected or very prone to infection. HIV disease. Substance abuse with previous urine test positive for narcotics and cocaine. History of hepatitis C virus. History of hypertensive kidney disease. Plan February 23: Dialyzed yesterday. Hemoglobin lower today. Will transfuse 1 unit of packed RBCs today. Dialyzed tomorrow. If stable can be discharged after dialysis tomorrow. February 22: Order dialysis for today. Lab reviewed. Blood pressure acceptable. Hemoglobin 8.1 February 21: Dialyzed yesterday. No labs drawn today. Blood pressure controlled. Will check lab tomorrow. February 20: Due for dialysis today. Labs reviewed. Blood pressure medication adjusted. Continue per consultants. February 19: Will order dialysis tomorrow February 20. Will check lab in a.m. Continue per consultants. February 18: Was dialyzed yesterday February 17. Has a new permacath over the left side of the chest. Patient also was transfused yesterday. Anemia improved. Next dialysis February 20Friday. February 17: Last dialysis was February 14. Patient due to have a permacath today and then arrange for dialysis and 2 units of blood transfusion afterwards. Discussed with RN. Labs reviewed. Expect correction of the chemistry panel after dialysis. February 16: Last dialysis February 14. Due for dialysis tomorrow February 17. Due for insertion of a permacath by IR tomorrow. The removed catheter on February 14 has a negative tip culture February 15: Patient last dialyzed February 14. Today's labs reviewed. Discussed with Dr. Crowe. The dialysis catheter was removed yesterday. New catheter will be placed on Friday, February 17. 2 sets of blood cultures ordered. Discussed with RN, and charge nurse. February 14: Patient was dialyzed yesterday. Today's labs reviewed. Discussed with PMD. The ID [employer] consultant suggest removal of the permacath due to infection. Will arrange for dialysis today. Will remove the permacath after dialysis today. Will reinsert a dialysis catheter 48 hours later. Discussed with RN. Orders in EMR. February 13: Due for dialysis today. Hemoglobin higher after transfusion. Continue per consultants. February 12: Next dialysis tomorrow on February 13. Hemoglobin remains low patient is due for another transfusion today. Continue per current treatment plan. February 11: Patient was dialyzed yesterday. Labs reviewed. Hemoglobin low. Due for transfusion. Next dialysis February 13, unless she needs it earlier. Medications are reviewed. Metoprolol dose increased. February 10: Patient due for dialysis today February 10. No labs drawn today. Will check renal parameters tomorrow. Continue per consultants. Patient anemic, transfusion is suggested. Patient dialyzed February 08, late night, for potassium of 7.4. Will give Kayexalate for high potassium as needed Adjust blood pressure medication. Folate supplement. Due for transfusion. Per orders. Subjective ROS Limited/Unobtainable: No Constitutional: Reports: malaise Objective Objective Last 24 Hour Vital Signs Date Time Temp Pulse Resp B/P (MAP) Pulse Ox O2 Delivery O2 Flow Rate FiO2 02/24/20 08:44 57 165/80 02/24/20 08:43 57 165/80 02/24/20 08:00 100.2 57 18 165/80 (108) 94 02/24/20 05:09 156/68 02/24/20 04:00 98.9 75 19 156/68 (97) 95 02/24/20 04:00 56 02/24/20 00:19 165/71 02/24/20 00:00 66 02/24/20 00:00 98.4 100 20 165/71 (102) 95 02/23/20 22:15 167/60 02/23/20 21:00 Nasal Cannula 3.0 02/23/20 20:47 72 170/91 02/23/20 20:00 98.6 72 20 170/91 (117) 95 02/23/20 20:00 71 02/23/20 19:15 97.7 02/23/20 16:00 63 02/23/20 16:00 97.7 61 20 170/76 (107) 97 02/23/20 12:00 63 02/23/20 12:00 97.8 60 20 168/84 (112) 98 Intake and Output 02/23/20 02/24/20 19:00 07:00 Intake Total 118 ml 800 ml Output Total 2000 ml Balance 118 ml -1200 ml Intake Oral 118 ml 800 ml Hemodialysis UF 2000 ml Laboratory Tests 02/24/20 09:00: White Blood Count 3.1L, Red Blood Count 2.53L, Hemoglobin 7.7L, Hematocrit 24.0L , Mean Corpuscular Volume 95, Mean Corpuscular Hemoglobin 30.3, Mean Corpuscular Hemoglobin Concent 31.9L, Red Cell Distribution Width 14.3, Platelet Count 137L, Mean Platelet Volume 5.7L, Neutrophils (%) (Auto) , Lymphocytes (%) (Auto) , Monocytes (%) (Auto) , Eosinophils (%) (Auto) , Basophils (%) (Auto) , Neutrophils % (Manual) [Pending], Lymphocytes % (Manual) [Pending], Platelet Estimate [Pending], Platelet Morphology [Pending] Height (Feet): 5 Height (Inches): 8.00 Weight (Pounds): 179 General Appearance: no apparent distress Cardiovascular: normal rate Respiratory/Chest: decreased breath sounds Abdomen: soft Objective No change Jack Pryor MD Feb 24, 2020 10:14
--- NOTE | 2020-02-24 11:13 | Infectious Diseases Prog Note ---
"Assessment/Plan Assessment/Plan antibiotics : vancomycin iv A 1. staph aureus sepsis s/p catheter removal 2. bartholins cyst infection with proteus | enterococcus s/p drainage 3. Hypertension. 4. HIV. 5. Hepatitis C. 6. Renal failure. 7. COVID 19 negative PLAN: 1. d/c IV vancomycin 2. observe off antibiotics Subjective Constitutional: Denies: fever, chills Respiratory: Denies: shortness of breath, dry cough Gastrointestinal/Abdominal: Denies: nausea, vomiting, diarrhea Musculoskeletal: Reports: pain Allergies: Coded Allergies: ASPIRIN (Unverified Allergy, Unknown, 01/16/20) IODINE (Verified Allergy, Unknown, 01/07/20) Uncoded Allergies: CONTRAST DYE (Allergy, Unknown, 01/07/20) Objective Last 24 Hour Vital Signs Date Time Temp Pulse Resp B/P (MAP) Pulse Ox O2 Delivery O2 Flow Rate FiO2 02/24/20 09:00 Room Air 02/24/20 08:44 57 165/80 02/24/20 08:43 57 165/80 02/24/20 08:00 100.2 57 18 165/80 (108) 94 02/24/20 05:09 156/68 02/24/20 04:00 98.9 75 19 156/68 (97) 95 02/24/20 04:00 56 02/24/20 00:19 165/71 02/24/20 00:00 66 02/24/20 00:00 98.4 100 20 165/71 (102) 95 02/23/20 22:15 167/60 02/23/20 21:00 Nasal Cannula 3.0 02/23/20 20:47 72 170/91 02/23/20 20:00 98.6 72 20 170/91 (117) 95 02/23/20 20:00 71 02/23/20 19:15 97.7 02/23/20 16:00 63 02/23/20 16:00 97.7 61 20 170/76 (107) 97 02/23/20 12:00 63 02/23/20 12:00 97.8 60 20 168/84 (112) 98 Height (Feet): 5 Height (Inches): 8.00 Weight (Pounds): 179 Laboratory Tests Test 02/24/20 09:00 White Blood Count 3.1 K/UL (4.8-10.8) L Red Blood Count 2.53 M/UL (4.20-5.40) L Hemoglobin 7.7 G/DL (12.0-16.0) L Hematocrit 24.0 % (37.0-47.0) L Mean Corpuscular Volume 95 FL (80-99) Mean Corpuscular Hemoglobin 30.3 PG (27.0-31.0) Mean Corpuscular Hemoglobin Concent 31.9 G/DL (32.0-36.0) L Red Cell Distribution Width 14.3 % (11.6-14.8) Platelet Count 137 K/UL (150-450) L Mean Platelet Volume 5.7 FL (6.5-10.1) L Neutrophils (%) (Auto) % (45.0-75.0) Lymphocytes (%) (Auto) % (20.0-45.0) Monocytes (%) (Auto) % (1.0-10.0) Eosinophils (%) (Auto) % (0.0-3.0) Basophils (%) (Auto) % (0.0-2.0) Differential Total Cells Counted 100 Neutrophils % (Manual) 70 % (45-75) Lymphocytes % (Manual) 18 % (20-45) L Monocytes % (Manual) 9 % (1-10) Eosinophils % (Manual) 2 % (0-3) Basophils % (Manual) 1 % (0-2) Band Neutrophils 0 % (0-8) Platelet Estimate Decreased L Platelet Morphology Normal Hypochromasia 3+ Anisocytosis 1+ Current Medications Medications (Trade) Dose Ordered Sig/Rochelle Route PRN Reason Start Time Stop Time Status Last Admin Dose Admin Acetaminophen (Tylenol) 650 mg Q4H PRN ORAL Mild Pain (Pain Scale 1-3) 02/22/20 21:30 03/23/20 21:29 02/24/20 08:43 Amlodipine Besylate (Norvasc) 10 mg DAILY ORAL 02/23/20 09:00 03/11/20 08:59 02/24/20 08:43 Clonidine HCl (Catapres Tab) 0.1 mg Q4H PRN ORAL For BP above 165 systolic 02/22/20 21:30 05/22/20 21:29 02/24/20 00:19 Diazepam (Valium) 10 mg BIDPRN PRN ORAL For Anxiety 02/22/20 21:30 02/29/20 21:29 02/24/20 04:50 Diphenhydramine HCl (Benadryl) 25 mg Q6H PRN IVP Itching 02/22/20 21:30 03/23/20 21:29 02/24/20 04:42 Docusate Sodium (Colace) 100 mg TID ORAL 02/23/20 09:00 03/10/20 17:59 02/24/20 08:43 Epoetin Jose (Epoetin Jose(ESRD on dialysis)) 2,000 unit SUBQ 02/23/20 21:00 05/16/20 20:59 Epoetin Jose (Epoetin Jose(ESRD on dialysis)) 3,000 unit SUBQ 02/23/20 21:00 05/16/20 20:59 Folic Acid (Folate) 2 mg DAILY ORAL 02/23/20 09:00 03/11/20 09:59 02/24/20 08:43 Hydralazine HCl (Apresoline) 75 mg Q8HR ORAL 02/22/20 22:00 05/18/20 17:59 02/24/20 05:09 Hydromorphone HCl (Dilaudid) 1 mg Q4H PRN IVP Severe Pain (Pain Scale 7-10) 02/22/20 21:45 02/25/20 21:44 02/24/20 08:45 Lidocaine HCl (Xylocaine Viscous) 15 ml Q4H PRN ORAL pain in mouth 02/23/20 09:30 05/23/20 09:29 02/23/20 15:36 Magnesium Hydroxide (Mom) 30 ml DAILYPRN PRN ORAL Constipation 02/22/20 21:30 03/23/20 21:29 Metoprolol Tartrate (Lopressor) 50 mg Q12HR ORAL 02/22/20 21:30 05/22/20 21:29 02/24/20 08:44 Ondansetron HCl (Zofran) 4 mg Q6H PRN IV Nausea & Vomiting 02/22/20 21:30 03/23/20 21:29 Pantoprazole (Protonix) 40 mg BID ORAL 02/23/20 09:00 03/10/20 17:59 02/24/20 08:43 Sevelamer Carbonate (Renvela) 2,400 mg THREE TIMES A DAY ORAL 02/23/20 09:00 05/09/20 17:59 02/24/20 08:43 Vancomycin HCl ([facility] pharmacy to dose) 1 ea DAILY PRN MISC Per rx protocol 02/22/20 21:30 03/23/20 21:29 Elvis Garibay MD Feb 24, 2020 11:13"
[2020-02-24 12:00] VITALS: BP 156/73
--- NOTE | 2020-02-24 13:36 | NUR ---
NURSE NOTES: IV line leaking, removed and reinserted to left wrist g22. 1 unit PRBC started, monitoring for any adverse reactions.
--- NOTE | 2020-02-24 13:56 | Surgery Progress Note ---
Surgery Progress Note Subjective Procedure Performed removal of infected right chest wall tunneled hemodialysis catheter Symptoms: improved, tolerating diet, passing flatus, BM Objective Last 24 Hour Vital Signs Date Time Temp Pulse Resp B/P (MAP) Pulse Ox O2 Delivery O2 Flow Rate FiO2 02/24/20 13:53 156/73 02/24/20 12:00 98.1 58 20 156/73 (100) 96 02/24/20 09:00 Room Air 02/24/20 08:44 57 165/80 02/24/20 08:43 57 165/80 02/24/20 08:00 100.2 57 18 165/80 (108) 94 02/24/20 05:09 156/68 02/24/20 04:00 98.9 75 19 156/68 (97) 95 02/24/20 04:00 56 02/24/20 00:19 165/71 02/24/20 00:00 66 02/24/20 00:00 98.4 100 20 165/71 (102) 95 02/23/20 22:15 167/60 02/23/20 21:00 Nasal Cannula 3.0 02/23/20 20:47 72 170/91 02/23/20 20:00 98.6 72 20 170/91 (117) 95 02/23/20 20:00 71 02/23/20 19:15 97.7 02/23/20 16:00 63 02/23/20 16:00 97.7 61 20 170/76 (107) 97 I&O Intake and Output 02/23/20 02/24/20 19:00 07:00 Intake Total 118 ml 800 ml Output Total 4000 ml Balance 118 ml -3200 ml Intake Oral 118 ml 800 ml Hemodialysis UF 4000 ml Dressing: dry Wound: clean Cardiovascular: RSR Respiratory: clear Abdomen: soft, non-tender, present bowel sounds Extremities: no tenderness, no cyanosis Laboratory Tests Test 02/24/20 09:00 White Blood Count 3.1 K/UL (4.8-10.8) L Red Blood Count 2.53 M/UL (4.20-5.40) L Hemoglobin 7.7 G/DL (12.0-16.0) L Hematocrit 24.0 % (37.0-47.0) L Mean Corpuscular Volume 95 FL (80-99) Mean Corpuscular Hemoglobin 30.3 PG (27.0-31.0) Mean Corpuscular Hemoglobin Concent 31.9 G/DL (32.0-36.0) L Red Cell Distribution Width 14.3 % (11.6-14.8) Platelet Count 137 K/UL (150-450) L Mean Platelet Volume 5.7 FL (6.5-10.1) L Neutrophils (%) (Auto) % (45.0-75.0) Lymphocytes (%) (Auto) % (20.0-45.0) Monocytes (%) (Auto) % (1.0-10.0) Eosinophils (%) (Auto) % (0.0-3.0) Basophils (%) (Auto) % (0.0-2.0) Differential Total Cells Counted 100 Neutrophils % (Manual) 70 % (45-75) Lymphocytes % (Manual) 18 % (20-45) L Monocytes % (Manual) 9 % (1-10) Eosinophils % (Manual) 2 % (0-3) Basophils % (Manual) 1 % (0-2) Band Neutrophils 0 % (0-8) Platelet Estimate Decreased L Platelet Morphology Normal Hypochromasia 3+ Anisocytosis 1+ Plan Problems: (1) Anemia (2) Bartholin's gland abscess Assessment & Plan: 69-year-old female Bartholin gland abscess cyst. Status post incision and drainage with drain placement. Drain currently in place and still draining. States that it feels better but continues to hurt. Plan for hemodialysis initiated by bar machine operator multiple spindle. Patient has a catheter in place unlikely infected. We will continue to monitor for local abscess drainage and improvement. Will monitor drain and manage drain accordingly. Okay for warm compress as needed. Pain management Rx written. Trend labs. Antibiotics per ID. May need repeat drainage if does not improve significantly. Thank you for letting participate in patient's care will follow recommendations anemia - transfuse prbc with HD Continue with catheter drainage functional doing well Discussed care plan with the patient Plan for outpatient OBSTETRICIAN follow-up on discharge. prbc with HD prn as per renal drain okay KUB in AM bowel regimen - constipated Drain has fallen out. Cellulitis is improved. Nontender no draining okay for drain to be out. Outpatient follow-up plan. Persistent fevers right tunneled 2-year-old permacath removed Discussed with medical team nephrology and radiology plan for new line placement this Friday new tunneled left chest wall cath placed for HD doing well comfortable d/c planning bleeding from right chest wall prior port site. hemostasis with dressings at bedside hold d/c suture placed stable labs noted okay (3) Hypoglycemia (4) Vulval cellulitis (5) Missed dialysis (6) ESRD (end stage renal disease) on dialysis (7) Hyperkalemia (8) Substance abuse (9) HIV disease (10) HCV antibody positive (11) Weakness (12) Epileptic seizure, generalized Deon Crowe Feb 24, 2020 13:56
--- NOTE | 2020-02-24 14:37 | General Progress Note ---
Assessment/Plan Problem List: (1) Epileptic seizure, generalized ICD Codes: G40.309 - Generalized idiopathic epilepsy and epileptic syndromes, not intractable, without status epilepticus SNOMED: 29877432 (2) Weakness ICD Codes: R53.1 - Weakness SNOMED: 56831706 (3) HIV disease ICD Codes: B20 - Human immunodeficiency virus [HIV] disease SNOMED: 66043009 (4) Substance abuse ICD Codes: F19.10 - Other psychoactive substance abuse, uncomplicated SNOMED: 02342957 (5) Bartholin's gland abscess ICD Codes: N75.1 - Abscess of Bartholin's gland SNOMED: 35730289 (6) Hypoglycemia ICD Codes: E16.2 - Hypoglycemia, unspecified SNOMED: 630856644 Status: stable Assessment/Plan: cont iv abx transfuse per renal monitor h/h pain rx HD per renal dc planning if no further bleeding APS report Subjective ROS Limited/Unobtainable: No Constitutional: Reports: malaise, weakness HEENT: Reports: no symptoms Cardiovascular: Reports: no symptoms Respiratory: Reports: no symptoms Gastrointestinal/Abdominal: Reports: no symptoms Genitourinary: Reports: no symptoms Neurologic/Psychiatric: Reports: anxiety Endocrine: Reports: no symptoms Hematologic/Lymphatic: Reports: anemia Allergies: Coded Allergies: ASPIRIN (Unverified Allergy, Unknown, 01/16/20) IODINE (Verified Allergy, Unknown, 01/07/20) Uncoded Allergies: CONTRAST DYE (Allergy, Unknown, 01/07/20) All Systems: reviewed and negative except above Subjective no events. decreased h/h noted. no bleeding. c/o generalized pain and anxiety. refusing snf placement. taking iv pain rx atc. getting valium in addition. states she cant walk. Objective Last 24 Hour Vital Signs Date Time Temp Pulse Resp B/P (MAP) Pulse Ox O2 Delivery O2 Flow Rate FiO2 02/24/20 13:53 156/73 02/24/20 12:00 53 02/24/20 12:00 98.1 58 20 156/73 (100) 96 02/24/20 09:13 98.1 02/24/20 09:00 Room Air 02/24/20 08:44 57 165/80 02/24/20 08:43 57 165/80 02/24/20 08:00 100.2 57 18 165/80 (108) 94 02/24/20 08:00 91 02/24/20 05:09 156/68 02/24/20 04:00 98.9 75 19 156/68 (97) 95 02/24/20 04:00 56 02/24/20 00:19 165/71 02/24/20 00:00 66 02/24/20 00:00 98.4 100 20 165/71 (102) 95 02/23/20 22:15 167/60 02/23/20 21:00 Nasal Cannula 3.0 02/23/20 20:47 72 170/91 02/23/20 20:00 98.6 72 20 170/91 (117) 95 02/23/20 20:00 71 02/23/20 19:15 97.7 02/23/20 16:00 63 02/23/20 16:00 97.7 61 20 170/76 (107) 97 Intake and Output 02/23/20 02/24/20 19:00 07:00 Intake Total 118 ml 800 ml Output Total 4000 ml Balance 118 ml -3200 ml Intake Oral 118 ml 800 ml Hemodialysis UF 4000 ml Laboratory Tests 02/24/20 09:00: White Blood Count 3.1L, Red Blood Count 2.53L, Hemoglobin 7.7L, Hematocrit 24.0L , Mean Corpuscular Volume 95, Mean Corpuscular Hemoglobin 30.3, Mean Corpuscular Hemoglobin Concent 31.9L, Red Cell Distribution Width 14.3, Platelet Count 137L, Mean Platelet Volume 5.7L, Neutrophils (%) (Auto) , Lymphocytes (%) (Auto) , Monocytes (%) (Auto) , Eosinophils (%) (Auto) , Basophils (%) (Auto) , Differential Total Cells Counted 100, Neutrophils % ( Manual) 70, Lymphocytes % (Manual) 18L, Monocytes % (Manual) 9, Eosinophils % ( Manual) 2, Basophils % (Manual) 1, Band Neutrophils 0, Platelet Estimate DecreasedL, Platelet Morphology Normal, Hypochromasia 3+, Anisocytosis 1+ Height (Feet): 5 Height (Inches): 8.00 Weight (Pounds): 179 Objective General Appearance: WD/WN, lethargic EENT: PERRL/EOMI, normal ENT inspection Neck: non-tender, normal alignment Cardiovascular: normal peripheral pulses, normal rate, regular rhythm Respiratory/Chest: chest wall non-tender, lungs clear, normal breath sounds Abdomen: normal bowel sounds, non tender, soft, no organomegaly Extremities: normal range of motion Edema: no edema noted Arm (L), no edema noted Arm (R) Neurologic: complex care nurse practitioner II-XII grossly normal, no motor/sensory deficits, abnormal gait , alert, oriented x 3, responsive Michael Peralta MD Feb 24, 2020 14:37
--- NOTE | 2020-02-24 15:10 | NUR ---
POTASH FLAKER NOTE SW filed APS report #[id number] for self-neglect. Pt was last admitted to [facility]/07/2020-01/11/2020 and 01/16/2020-01/21/2020. Pt has been declining SNF placement/missed dialysis. Pt requires 24 hour supervision/assistance and it appears to be family assistance is not sufficient.
--- NOTE | 2020-02-24 15:24 | NUR ---
DISCHARGE PLANNING DUE TO PATIENT DIFFICULTY WITH AMBULATION, AMBULANCE TRANSPORTATION UPON DC REQUIRED. [facility] AMBULANCE TRANSPORTATION SCHEDULED WITH [facility] EXT 4853 WITH ETA @ 5984 PER ALFREDA.
[2020-02-24 16:00] VITALS: BP 150/80
[2020-02-24 17:12] LABS: ANION GAP 5 mmol/L (5-15); BLOOD UREA NITROGEN 19 mg/dL (7-18); CALCIUM 8.2 MG/DL (8.5-10.1); CARBON DIOXIDE 33 MMOL/L (21-32); CHLORIDE 99 MMOL/L (98-107); CREATININE 6.3 MG/DL (0.55-1.30); POTASSIUM 4.3 MMOL/L (3.5-5.1); SODIUM 137 MMOL/L (136-145)
--- NOTE | 2020-02-24 19:30 | NUR ---
HAND-OFF: Report given to Eva SALAZAR.
[2020-02-24 20:00] VITALS: BP 159/86
--- NOTE | 2020-02-24 20:00 | NUR ---
NURSE NOTES: RECEIVED PATIENT LYING IN BED, AWAKE, ALERT/ORIENTED X3, VERBALLY RESPONSIVE, NOTED WITH CHRONIC PAIN 03/13. IV INTACT TO LEFT WRIST/GAUGE 22 SALINE LOCK, NO REDNESS/SWELLING NOTED. HD PATIENT, ACCESS LEFT TRANSJUGULAR TUNNELED CATHETER. NO SIGNS AND SYMPTOMS OF ACUTE CARDIO RESPIRATORY DISTRESS/SHORTNESS OF BREATH, DENIES CHEST PAIN, NO PERIPHERAL EDEMA NOTED. ABDOMEN SOFT/NON TENDER/BOWEL SOUNDS AUDIBLE, NO N/V/D. SIDE RAILS UP X3/BED IN LOWEST POSITION FOR SAFETY, ENCOURAGED PATIENT TO UTILIZE CALL LIGHT FOR ASSISTANCE, VERBALIZED UNDERSTANDING. CONTINUE WITH CURRENT PLAN OF CARE. NAD.
--- NOTE | 2020-02-24 20:30 | NUR ---
NURSE NOTES: HEART RATE DROPPED FROM 58 TO 20 ON DIRECTOR OF CONSUMER MARKETING, REMAINED SINUS RHYTHM, NOTED WITH 6 SECOND PAUSE; TELEPHONE CALL PLACED TO DR. BONIFACIO RIVERA EXECUTIVE SEARCH CONSULTANT, INFORMED OF THE ABOVE, ORDERS NOTED AND CARRIED OUT, CHARGE NURSE MADE AWARE.
[2020-02-25] VITALS (7 sets, daily range): BP systolic 143–206; BP diastolic 74–99
[2020-02-25] MEDS: DiphenhydrAMINE 50mg/ml Inj IVP PRN ×3 (00:11→21:29)
[2020-02-25] MEDS: HYDROmorphone 1mg/ml Carpuject IVP PRN ×5 (04:30→21:29)
--- NOTE | 2020-02-25 06:29 | NUR ---
NURSE NOTES: RESTED WELL, NO SIGNIFICANT CHANGE OF CONDITION NOTED THROUGHOUT THE NIGHT. SAFETY MAINTAINED. NAD.
[2020-02-25] MEDS: HydrALAZINE 25mg tab ORAL SCH ×3 (06:37→21:32)
[2020-02-25 06:42] LABS: BASOPHILS % (AUTO) 1.1 % (0.0-2.0); EOSINOPHILS % (AUTO) 3.2 % (0.0-3.0); HEMATOCRIT 28.5 % (37.0-47.0); HEMOGLOBIN 9.1 G/DL (12.0-16.0); LYMPHOCYTES % (AUTO) 16.4 % (20.0-45.0); MEAN CORPUSCULAR VOLUME 94 FL (80-99); MONOCYTES % (AUTO) 11.1 % (1.0-10.0); NEUTROPHILS % (AUTO) 68.2 % (45.0-75.0); PLATELET COUNT 152 K/UL (150-450); RED BLOOD COUNT 3.03 M/UL (4.20-5.40); RED CELL DISTRIBUTION WIDTH 13.8 % (11.6-14.8); WHITE BLOOD COUNT 4.1 K/UL (4.8-10.8)
[2020-02-25 07:25] LABS: ALANINE AMINOTRANSFERASE 7 U/L (12-78); ALBUMIN 2.8 G/DL (3.4-5.0); ALBUMIN/GLOBULIN RATIO 0.5 (1.0-2.7); ALKALINE PHOSPHATASE 71 U/L (46-116); ANION GAP 5 mmol/L (5-15); ASPARTATE AMINO TRANSFERASE 20 U/L (15-37); BILIRUBIN,TOTAL 0.4 MG/DL (0.2-1.0); BLOOD UREA NITROGEN 20 mg/dL (7-18); CALCIUM 8.2 MG/DL (8.5-10.1); CARBON DIOXIDE 32 MMOL/L (21-32); CHLORIDE 99 MMOL/L (98-107); PHOSPHORUS 2.7 MG/DL (2.5-4.9); POTASSIUM 4.3 MMOL/L (3.5-5.1); SODIUM 136 MMOL/L (136-145)
--- NOTE | 2020-02-25 07:50 | NUR ---
NURSE NOTES: recdv pt. Pt is AOx4 and on room air, pt c/o pain, Dilaudid ordered prn. Pt appears extremely anxious. Pt aware dialysis is ordered and schedule for today. Pt has elevated BP with SBP 192, Dr Peralta aware and ordered an additional one time dose 25mg. Dose was given to pt. Bed in lowest locked position will continue with plan of care
[2020-02-25] MEDS: Docusate 100mg cap ORAL SCH ×3 (08:34→16:49)
--- NOTE | 2020-02-25 09:02 | General Progress Note ---
Assessment/Plan Problem List: (1) Epileptic seizure, generalized ICD Codes: G40.309 - Generalized idiopathic epilepsy and epileptic syndromes, not intractable, without status epilepticus SNOMED: 47848133 (2) Weakness ICD Codes: R53.1 - Weakness SNOMED: 29132993 (3) HIV disease ICD Codes: B20 - Human immunodeficiency virus [HIV] disease SNOMED: 58434028 (4) Substance abuse ICD Codes: F19.10 - Other psychoactive substance abuse, uncomplicated SNOMED: 40638948 (5) Bartholin's gland abscess ICD Codes: N75.1 - Abscess of Bartholin's gland SNOMED: 56157428 (6) Hypoglycemia ICD Codes: E16.2 - Hypoglycemia, unspecified SNOMED: 271314624 Status: stable Assessment/Plan: cont iv abx transfuse per renal monitor h/h pain rx HD per renal off b-blockers hydralazine for htn EP eval called. Subjective ROS Limited/Unobtainable: No Constitutional: Reports: malaise, weakness HEENT: Reports: no symptoms Cardiovascular: Reports: no symptoms Respiratory: Reports: no symptoms Gastrointestinal/Abdominal: Reports: no symptoms Genitourinary: Reports: no symptoms Neurologic/Psychiatric: Reports: anxiety, depressed Endocrine: Reports: no symptoms Hematologic/Lymphatic: Reports: no symptoms Allergies: Coded Allergies: ASPIRIN (Unverified Allergy, Unknown, 01/16/20) IODINE (Verified Allergy, Unknown, 01/07/20) Uncoded Allergies: CONTRAST DYE (Allergy, Unknown, 01/07/20) All Systems: reviewed and negative except above Subjective pt developed intermittent 2nd degree heart block and bradycardia yesterday afternoon. metoprolol dc. pt has continued to have episodes of bradycardia and tachycardia. BP remains stable. denies chest pain or sob., no palps or dizziness. Objective Last 24 Hour Vital Signs Date Time Temp Pulse Resp B/P (MAP) Pulse Ox O2 Delivery O2 Flow Rate FiO2 02/25/20 08:34 60 156/89 02/25/20 06:37 156/89 02/25/20 05:03 97.5 02/25/20 04:00 60 02/25/20 04:00 97.5 67 18 150/81 (104) 97 02/25/20 00:00 97.5 60 18 154/86 (108) 98 02/25/20 00:00 63 02/24/20 22:00 151/82 02/24/20 20:00 Room Air 02/24/20 20:00 63 02/24/20 20:00 98.7 58 19 159/86 (110) 99 02/24/20 16:00 63 02/24/20 16:00 98.1 61 18 150/80 (103) 96 02/24/20 13:53 156/73 02/24/20 12:00 53 02/24/20 12:00 98.1 58 20 156/73 (100) 96 02/24/20 09:13 98.1 Intake and Output 02/24/20 02/25/20 18:59 06:59 Intake Total 600 ml 480 ml Balance 600 ml 480 ml Intake Oral 600 ml 480 ml # Voids 1 3 # Bowel Movements 1 2 Laboratory Tests 02/24/20 16:50: Sodium Level 137, Potassium Level 4.3, Chloride Level 99, Carbon Dioxide Level 33H, Anion Gap 5, Blood Urea Nitrogen 19H, Creatinine 6.3H, Estimat Glomerular Filtration Rate 8.0, Glucose Level 107H, Calcium Level 8.2L 02/25/20 06:07: Sodium Level 136, Potassium Level 4.3, Chloride Level 99, Carbon Dioxide Level 32, Anion Gap 5, Blood Urea Nitrogen 20H, Creatinine 7.0H, Estimat Glomerular Filtration Rate 7.2, Glucose Level 98, Calcium Level 8.2L, White Blood Count 4.1L, Red Blood Count 3.03L, Hemoglobin 9.1L, Hematocrit 28.5L, Mean Corpuscular Volume 94, Mean Corpuscular Hemoglobin 30.0, Mean Corpuscular Hemoglobin Concent 31.9L, Red Cell Distribution Width 13.8, Platelet Count 152, Mean Platelet Volume 5.7L, Neutrophils (%) (Auto) 68.2, Lymphocytes (%) (Auto) 16.4L, Monocytes (%) (Auto) 11.1H, Eosinophils (%) (Auto) 3.2H, Basophils (%) ( Auto) 1.1, Phosphorus Level 2.7, Total Bilirubin 0.4, Aspartate Amino Transf ( AST/SGOT) 20, Alanine Aminotransferase (ALT/SGPT) 7L, Alkaline Phosphatase 71, C -Reactive Protein, Quantitative < 0.4, Pro-B-Type Natriuretic Peptide 33192W, Total Protein 8.0, Albumin 2.8L, Globulin 5.2, Albumin/Globulin Ratio 0.5L, Thyroid Stimulating Hormone (TSH) 5.799H Height (Feet): 5 Height (Inches): 8.00 Weight (Pounds): 179 Objective General Appearance: WD/WN, lethargic EENT: PERRL/EOMI, normal ENT inspection Neck: non-tender, normal alignment Cardiovascular: normal peripheral pulses, normal rate, regular rhythm Respiratory/Chest: chest wall non-tender, lungs clear, normal breath sounds Abdomen: normal bowel sounds, non tender, soft, no organomegaly Extremities: normal range of motion Edema: no edema noted Arm (L), no edema noted Arm (R) Neurologic: adaptive physical educator II-XII grossly normal, no motor/sensory deficits, abnormal gait , alert, oriented x 3, responsive Michael Peralta MD Feb 25, 2020 09:02
[2020-02-25] MEDS ORDERED: HydrALAZINE 25mg tab ORAL SCH (09:15)
[2020-02-25] MEDS: Renvela 2400 mg pkt ORAL SCH ×2 (09:44→12:44)
--- NOTE | 2020-02-25 10:09 | Infectious Diseases Prog Note ---
Assessment/Plan Assessment/Plan A: 1. Staph aureus sepsis (MSSA), catheter infection. 2. Infected Bartholin cyst, status post drainage with Proteus and Enterococcus. 3. Hypertension. 4. HIV. 5. Hepatitis C. 6. ESRD. 7. Severe anemia 8. Cocaine abuse PLAN: 1. Observe off antibiotic Subjective ROS Limited/Unobtainable: No Constitutional: Reports: no symptoms Respiratory: Reports: no symptoms Cardiovascular: Reports: no symptoms Gastrointestinal/Abdominal: Reports: no symptoms Genitourinary: Reports: no symptoms Psychiatric: Reports: depression Musculoskeletal: Reports: pain, other - back pain Allergies: Coded Allergies: ASPIRIN (Unverified Allergy, Unknown, 01/16/20) IODINE (Verified Allergy, Unknown, 01/07/20) Uncoded Allergies: CONTRAST DYE (Allergy, Unknown, 01/07/20) Objective Last 24 Hour Vital Signs Date Time Temp Pulse Resp B/P (MAP) Pulse Ox O2 Delivery O2 Flow Rate FiO2 02/25/20 09:44 190/84 02/25/20 08:34 60 156/89 02/25/20 06:37 156/89 02/25/20 05:03 97.5 02/25/20 04:00 60 02/25/20 04:00 97.5 67 18 150/81 (104) 97 02/25/20 00:00 97.5 60 18 154/86 (108) 98 02/25/20 00:00 63 02/24/20 22:00 151/82 02/24/20 20:00 Room Air 02/24/20 20:00 63 02/24/20 20:00 98.7 58 19 159/86 (110) 99 02/24/20 16:00 63 02/24/20 16:00 98.1 61 18 150/80 (103) 96 02/24/20 13:53 156/73 02/24/20 12:00 53 02/24/20 12:00 98.1 58 20 156/73 (100) 96 Height (Feet): 5 Height (Inches): 8.00 Weight (Pounds): 179 General Appearance: no acute distress HEENT: mucous membranes moist Respiratory/Chest: lungs clear Cardiovascular: normal rate, other - HD line Abdomen: soft, non tender Extremities: no edema Neurologic/Psychiatric: alert, responsive, depressed affect Laboratory Tests Test 02/24/20 16:50 02/25/20 06:07 Sodium Level 137 MMOL/L (136-145) 136 MMOL/L (136-145) Potassium Level 4.3 MMOL/L (3.5-5.1) 4.3 MMOL/L (3.5-5.1) Chloride Level 99 MMOL/L (98-107) 99 MMOL/L (98-107) Carbon Dioxide Level 33 MMOL/L (21-32) H 32 MMOL/L (21-32) Anion Gap 5 mmol/L (5-15) 5 mmol/L (5-15) Blood Urea Nitrogen 19 mg/dL (7-18) H 20 mg/dL (7-18) H Creatinine 6.3 MG/DL (0.55-1.30) H 7.0 MG/DL (0.55-1.30) H Estimat Glomerular Filtration Rate 8.0 mL/min (>60) 7.2 mL/min (>60) Glucose Level 107 MG/DL (74-106) H 98 MG/DL (74-106) Calcium Level 8.2 MG/DL (8.5-10.1) L 8.2 MG/DL (8.5-10.1) L White Blood Count 4.1 K/UL (4.8-10.8) L Red Blood Count 3.03 M/UL (4.20-5.40) L Hemoglobin 9.1 G/DL (12.0-16.0) L Hematocrit 28.5 % (37.0-47.0) L Mean Corpuscular Volume 94 FL (80-99) Mean Corpuscular Hemoglobin 30.0 PG (27.0-31.0) Mean Corpuscular Hemoglobin Concent 31.9 G/DL (32.0-36.0) L Red Cell Distribution Width 13.8 % (11.6-14.8) Platelet Count 152 K/UL (150-450) Mean Platelet Volume 5.7 FL (6.5-10.1) L Neutrophils (%) (Auto) 68.2 % (45.0-75.0) Lymphocytes (%) (Auto) 16.4 % (20.0-45.0) L Monocytes (%) (Auto) 11.1 % (1.0-10.0) H Eosinophils (%) (Auto) 3.2 % (0.0-3.0) H Basophils (%) (Auto) 1.1 % (0.0-2.0) Phosphorus Level 2.7 MG/DL (2.5-4.9) Total Bilirubin 0.4 MG/DL (0.2-1.0) Aspartate Amino Transf (AST/SGOT) 20 U/L (15-37) Alanine Aminotransferase (ALT/SGPT) 7 U/L (12-78) L Alkaline Phosphatase 71 U/L (46-116) C-Reactive Protein, Quantitative < 0.4 mg/dL (0.00-0.90) Pro-B-Type Natriuretic Peptide 72583 pg/mL (0-125) H Total Protein 8.0 G/DL (6.4-8.2) Albumin 2.8 G/DL (3.4-5.0) L Globulin 5.2 g/dL Albumin/Globulin Ratio 0.5 (1.0-2.7) L Thyroid Stimulating Hormone (TSH) 5.799 uiU/mL (0.358-3.740) Current Medications Medications (Trade) Dose Ordered Sig/Rochelle Route PRN Reason Start Time Stop Time Status Last Admin Dose Admin Acetaminophen (Tylenol) 650 mg Q4H PRN ORAL Mild Pain (Pain Scale 1-3) 02/22/20 21:30 03/23/20 21:29 02/24/20 08:43 Amlodipine Besylate (Norvasc) 10 mg DAILY ORAL 02/23/20 09:00 03/11/20 08:59 02/24/20 08:43 Diazepam (Valium) 10 mg BIDPRN PRN ORAL For Anxiety 02/22/20 21:30 02/29/20 21:29 02/24/20 16:22 Diphenhydramine HCl (Benadryl) 25 mg Q6H PRN IVP Itching 02/22/20 21:30 03/23/20 21:29 02/25/20 00:11 Docusate Sodium (Colace) 100 mg TID ORAL 02/23/20 09:00 03/10/20 17:59 02/25/20 09:44 Epoetin Jose (Epoetin Jose(ESRD on dialysis)) 2,000 unit FRI-FRI-FRI SUBQ 02/23/20 21:00 10/13/20 20:59 Epoetin Jose (Epoetin Jose(ESRD on dialysis)) 3,000 unit SUBQ 02/23/20 21:00 05/16/20 20:59 Folic Acid (Folate) 2 mg DAILY ORAL 02/23/20 09:00 03/11/20 09:59 02/25/20 09:44 Hydralazine HCl (Apresoline) 25 mg ONCE ORAL 02/25/20 09:15 02/25/20 11:00 02/25/20 09:44 Hydralazine HCl (Apresoline) 75 mg Q8HR ORAL 02/22/20 22:00 05/18/20 17:59 02/25/20 06:37 Hydromorphone HCl (Dilaudid) 1 mg Q4H PRN IVP Severe Pain (Pain Scale 7-10) 02/22/20 21:45 02/25/20 21:44 02/25/20 09:45 Levothyroxine Sodium (Synthroid) 50 mcg DAILY@0630 ORAL 02/26/20 06:30 03/27/20 06:29 Lidocaine HCl (Xylocaine Viscous) 15 ml Q4H PRN ORAL pain in mouth 02/23/20 09:30 05/23/20 09:29 02/23/20 15:36 Magnesium Hydroxide (Mom) 30 ml DAILYPRN PRN ORAL Constipation 02/22/20 21:30 03/23/20 21:29 Ondansetron HCl (Zofran) 4 mg Q6H PRN IV Nausea & Vomiting 02/22/20 21:30 03/23/20 21:29 Pantoprazole (Protonix) 40 mg BID ORAL 02/23/20 09:00 03/10/20 17:59 02/25/20 09:45 Sevelamer Carbonate (Renvela) 2,400 mg THREE TIMES A DAY ORAL 02/23/20 09:00 05/09/20 17:59 02/25/20 09:44 Armando Brown MD Feb 25, 2020 10:09
--- NOTE | 2020-02-25 10:13 | Nephrology Progress Note ---
Assessment/Plan Problem List: (1) ESRD (end stage renal disease) on dialysis (2) Hyperkalemia (3) Bartholin's gland abscess (4) Anemia (5) HCV antibody positive (6) HIV disease (7) Substance abuse Assessment Patient presents with hyperkalemia, anemia and 1 week of no dialysis Previous frequent chest pains. Anemia and evidence of upper GI bleed and [employer] in the past. Patient was on anticoagulation for atrial fibrillation however it is unclear how compliant the patient is. History of frequent hyperkalemia due to missing hemodialysis. End-stage renal disease on hemodialysis. The patient has a right chest permacath which is not dressed and appears to either be infected or very prone to infection. HIV disease. Substance abuse with previous urine test positive for narcotics and cocaine. History of hepatitis C virus. History of hypertensive kidney disease. Plan February 24: Due for dialysis today. Transfused yesterday. Blood pressure slightly elevated. Will adjust blood pressure medication. February 23: Dialyzed yesterday. Hemoglobin lower today. Will transfuse 1 unit of packed RBCs today. Dialyzed tomorrow. If stable can be discharged after dialysis tomorrow. February 22: Order dialysis for today. Lab reviewed. Blood pressure acceptable. Hemoglobin 8.1 February 21: Dialyzed yesterday. No labs drawn today. Blood pressure controlled. Will check lab tomorrow. February 20: Due for dialysis today. Labs reviewed. Blood pressure medication adjusted. Continue per consultants. February 19: Will order dialysis tomorrow February 20. Will check lab in a.m. Continue per consultants. February 18: Was dialyzed yesterday February 17. Has a new permacath over the left side of the chest. Patient also was transfused yesterday. Anemia improved. Next dialysis February 20Friday. February 17: Last dialysis was February 14. Patient due to have a permacath today and then arrange for dialysis and 2 units of blood transfusion afterwards. Discussed with RN. Labs reviewed. Expect correction of the chemistry panel after dialysis. February 16: Last dialysis February 14. Due for dialysis tomorrow February 17. Due for insertion of a permacath by IR tomorrow. The removed catheter on February 14 has a negative tip culture February 15: Patient last dialyzed February 14. Today's labs reviewed. Discussed with Dr. Crowe. The dialysis catheter was removed yesterday. New catheter will be placed on February 17. 2 sets of blood cultures ordered. Discussed with RN, and charge nurse. February 14: Patient was dialyzed yesterday. Today's labs reviewed. Discussed with PMD. The ID surgical consultant suggest removal of the permacath due to infection. Will arrange for dialysis today. Will remove the permacath after dialysis today. Will reinsert a dialysis catheter 48 hours later. Discussed with RN. Orders in EMR. February 13: Due for dialysis today. Hemoglobin higher after transfusion. Continue per consultants. February 12: Next dialysis tomorrow on February 13. Hemoglobin remains low patient is due for another transfusion today. Continue per current treatment plan. February 11: Patient was dialyzed yesterday. Labs reviewed. Hemoglobin low. Due for transfusion. Next dialysis February 13, unless she needs it earlier. Medications are reviewed. Metoprolol dose increased. February 10: Patient due for dialysis today February 10. No labs drawn today. Will check renal parameters tomorrow. Continue per consultants. Patient anemic, transfusion is suggested. Patient dialyzed February 08, late night, for potassium of 7.4. Will give Kayexalate for high potassium as needed Adjust blood pressure medication. Folate supplement. Due for transfusion. Per orders. Subjective ROS Limited/Unobtainable: No Constitutional: Reports: malaise, other - Emotional Objective Objective Last 24 Hour Vital Signs Date Time Temp Pulse Resp B/P (MAP) Pulse Ox O2 Delivery O2 Flow Rate FiO2 02/25/20 09:44 190/84 02/25/20 08:34 60 156/89 02/25/20 06:37 156/89 02/25/20 05:03 97.5 02/25/20 04:00 60 02/25/20 04:00 97.5 67 18 150/81 (104) 97 02/25/20 00:00 97.5 60 18 154/86 (108) 98 02/25/20 00:00 63 02/24/20 22:00 151/82 02/24/20 20:00 Room Air 02/24/20 20:00 63 02/24/20 20:00 98.7 58 19 159/86 (110) 99 02/24/20 16:00 63 02/24/20 16:00 98.1 61 18 150/80 (103) 96 02/24/20 13:53 156/73 02/24/20 12:00 53 02/24/20 12:00 98.1 58 20 156/73 (100) 96 Intake and Output 02/24/20 02/25/20 19:00 07:00 Intake Total 600 ml 480 ml Balance 600 ml 480 ml Intake Oral 600 ml 480 ml # Voids 1 3 # Bowel Movements 1 2 Current Medications Medications (Trade) Dose Ordered Sig/Rochelle Route PRN Reason Start Time Stop Time Status Last Admin Dose Admin Acetaminophen (Tylenol) 650 mg Q4H PRN ORAL Mild Pain (Pain Scale 1-3) 02/22/20 21:30 03/23/20 21:29 02/24/20 08:43 Amlodipine Besylate (Norvasc) 10 mg DAILY ORAL 02/23/20 09:00 03/11/20 08:59 02/24/20 08:43 Diazepam (Valium) 10 mg BIDPRN PRN ORAL For Anxiety 02/22/20 21:30 02/29/20 21:29 02/25/20 10:52 Diphenhydramine HCl (Benadryl) 25 mg Q6H PRN IVP Itching 02/22/20 21:30 03/23/20 21:29 02/25/20 12:43 Docusate Sodium (Colace) 100 mg TID ORAL 02/23/20 09:00 03/10/20 17:59 02/25/20 09:44 Epoetin Jose (Epoetin Jose(ESRD on dialysis)) 2,000 unit SUBQ 02/23/20 21:00 05/16/20 20:59 Epoetin Jose (Epoetin Jose(ESRD on dialysis)) 3,000 unit SUBQ 02/23/20 21:00 05/16/20 20:59 Folic Acid (Folate) 2 mg DAILY ORAL 02/23/20 09:00 03/11/20 09:59 02/25/20 09:44 Hydralazine HCl (Apresoline) 75 mg Q8HR ORAL 02/22/20 22:00 05/18/20 17:59 02/25/20 12:44 Hydromorphone HCl (Dilaudid) 1 mg Q4H PRN IVP Severe Pain (Pain Scale 7-10) 02/22/20 21:45 02/25/20 21:44 02/25/20 09:45 Levothyroxine Sodium (Synthroid) 50 mcg DAILY@0630 ORAL 02/26/20 06:30 03/27/20 06:29 Lidocaine HCl (Xylocaine Viscous) 15 ml Q4H PRN ORAL pain in mouth 02/23/20 09:30 05/23/20 09:29 02/23/20 15:36 Magnesium Hydroxide (Mom) 30 ml DAILYPRN PRN ORAL Constipation 02/22/20 21:30 03/23/20 21:29 Ondansetron HCl (Zofran) 4 mg Q6H PRN IV Nausea & Vomiting 02/22/20 21:30 03/23/20 21:29 Pantoprazole (Protonix) 40 mg BID ORAL 02/23/20 09:00 03/10/20 17:59 02/25/20 09:45 Sevelamer Carbonate (Renvela) 2,400 mg THREE TIMES A DAY ORAL 02/23/20 09:00 05/09/20 17:59 02/25/20 12:44 Laboratory Tests 02/24/20 16:50: Sodium Level 137, Potassium Level 4.3, Chloride Level 99, Carbon Dioxide Level 33H, Anion Gap 5, Blood Urea Nitrogen 19H, Creatinine 6.3H, Estimat Glomerular Filtration Rate 8.0, Glucose Level 107H, Calcium Level 8.2L 02/25/20 06:07: Sodium Level 136, Potassium Level 4.3, Chloride Level 99, Carbon Dioxide Level 32, Anion Gap 5, Blood Urea Nitrogen 20H, Creatinine 7.0H, Estimat Glomerular Filtration Rate 7.2, Glucose Level 98, Calcium Level 8.2L, White Blood Count 4.1L, Red Blood Count 3.03L, Hemoglobin 9.1L, Hematocrit 28.5L, Mean Corpuscular Volume 94, Mean Corpuscular Hemoglobin 30.0, Mean Corpuscular Hemoglobin Concent 31.9L, Red Cell Distribution Width 13.8, Platelet Count 152, Mean Platelet Volume 5.7L, Neutrophils (%) (Auto) 68.2, Lymphocytes (%) (Auto) 16.4L, Monocytes (%) (Auto) 11.1H, Eosinophils (%) (Auto) 3.2H, Basophils (%) ( Auto) 1.1, Phosphorus Level 2.7, Total Bilirubin 0.4, Aspartate Amino Transf ( AST/SGOT) 20, Alanine Aminotransferase (ALT/SGPT) 7L, Alkaline Phosphatase 71, C -Reactive Protein, Quantitative < 0.4, Pro-B-Type Natriuretic Peptide 62343W, Total Protein 8.0, Albumin 2.8L, Globulin 5.2, Albumin/Globulin Ratio 0.5L, Thyroid Stimulating Hormone (TSH) 5.799H Height (Feet): 5 Height (Inches): 8.00 Weight (Pounds): 179 General Appearance: no apparent distress Cardiovascular: normal rate Respiratory/Chest: decreased breath sounds Abdomen: soft Objective No change Jack Pryor MD Feb 25, 2020 10:13
--- NOTE | 2020-02-25 12:00 | NUR ---
NURSE NOTES: Per HD nurse, 2L removed. Pt BP still jodee. Per Pharm Prisca ok to give Valium now
--- NOTE | 2020-02-25 12:50 | NUR ---
CASE MANAGEMENT:REVIEW SI;SEPSIS. BARTHOLINS CYST INFECTION W/PROTEUS. ESRD on HD. 97.5 64 20 190/84 94% ON RA BNP 56034 ALB 2.8 TSH 5.799 IS;SYNTHROID PO QD NORVASC PO QD HYDRALAZINE PO Q8 BENADRYL IV Q6 DILAUDID IV Q4 PROTONIX PO BID TELE STATUS DCP;DC HOME WHEN STABLE DC HELD 02/24/20 D/T 2 SECOND CARDIAC PAUSE PER CARDIO
--- NOTE | 2020-02-25 14:02 | Surgery Progress Note ---
Surgery Progress Note Subjective Procedure Performed removal of infected right chest wall tunneled hemodialysis catheter Additional Comments no acute events comfortable stable labs stable no bleeding no n/v/f/c Objective Last 24 Hour Vital Signs Date Time Temp Pulse Resp B/P (MAP) Pulse Ox O2 Delivery O2 Flow Rate FiO2 02/25/20 12:44 190/84 02/25/20 12:00 64 02/25/20 12:00 97.9 65 20 206/99 (134) 94 02/25/20 10:15 97.5 02/25/20 09:44 190/84 02/25/20 09:00 Room Air 02/25/20 08:34 60 156/89 02/25/20 08:00 61 02/25/20 08:00 97.9 64 20 190/84 (119) 94 02/25/20 06:37 156/89 02/25/20 04:00 60 02/25/20 04:00 97.5 67 18 150/81 (104) 97 02/25/20 00:00 97.5 60 18 154/86 (108) 98 02/25/20 00:00 63 02/24/20 22:00 151/82 02/24/20 20:00 Room Air 02/24/20 20:00 63 02/24/20 20:00 98.7 58 19 159/86 (110) 99 02/24/20 16:00 63 02/24/20 16:00 98.1 61 18 150/80 (103) 96 I&O Intake and Output 02/24/20 02/25/20 19:00 07:00 Intake Total 600 ml 480 ml Balance 600 ml 480 ml Intake Oral 600 ml 480 ml # Voids 1 3 # Bowel Movements 1 2 Dressing: other Wound: other Drains: other Cardiovascular: RSR Respiratory: decreased breath sounds Abdomen: soft, non-tender, present bowel sounds Extremities: no tenderness, no cyanosis Laboratory Tests Test 02/24/20 16:50 02/25/20 06:07 Sodium Level 137 MMOL/L (136-145) 136 MMOL/L (136-145) Potassium Level 4.3 MMOL/L (3.5-5.1) 4.3 MMOL/L (3.5-5.1) Chloride Level 99 MMOL/L (98-107) 99 MMOL/L (98-107) Carbon Dioxide Level 33 MMOL/L (21-32) H 32 MMOL/L (21-32) Anion Gap 5 mmol/L (5-15) 5 mmol/L (5-15) Blood Urea Nitrogen 19 mg/dL (7-18) H 20 mg/dL (7-18) H Creatinine 6.3 MG/DL (0.55-1.30) H 7.0 MG/DL (0.55-1.30) H Estimat Glomerular Filtration Rate 8.0 mL/min (>60) 7.2 mL/min (>60) Glucose Level 107 MG/DL (74-106) H 98 MG/DL (74-106) Calcium Level 8.2 MG/DL (8.5-10.1) L 8.2 MG/DL (8.5-10.1) L White Blood Count 4.1 K/UL (4.8-10.8) L Red Blood Count 3.03 M/UL (4.20-5.40) L Hemoglobin 9.1 G/DL (12.0-16.0) L Hematocrit 28.5 % (37.0-47.0) L Mean Corpuscular Volume 94 FL (80-99) Mean Corpuscular Hemoglobin 30.0 PG (27.0-31.0) Mean Corpuscular Hemoglobin Concent 31.9 G/DL (32.0-36.0) L Red Cell Distribution Width 13.8 % (11.6-14.8) Platelet Count 152 K/UL (150-450) Mean Platelet Volume 5.7 FL (6.5-10.1) L Neutrophils (%) (Auto) 68.2 % (45.0-75.0) Lymphocytes (%) (Auto) 16.4 % (20.0-45.0) L Monocytes (%) (Auto) 11.1 % (1.0-10.0) H Eosinophils (%) (Auto) 3.2 % (0.0-3.0) H Basophils (%) (Auto) 1.1 % (0.0-2.0) Phosphorus Level 2.7 MG/DL (2.5-4.9) Total Bilirubin 0.4 MG/DL (0.2-1.0) Aspartate Amino Transf (AST/SGOT) 20 U/L (15-37) Alanine Aminotransferase (ALT/SGPT) 7 U/L (12-78) L Alkaline Phosphatase 71 U/L (46-116) C-Reactive Protein, Quantitative < 0.4 mg/dL (0.00-0.90) Pro-B-Type Natriuretic Peptide 07597 pg/mL (0-125) H Total Protein 8.0 G/DL (6.4-8.2) Albumin 2.8 G/DL (3.4-5.0) L Globulin 5.2 g/dL Albumin/Globulin Ratio 0.5 (1.0-2.7) L Thyroid Stimulating Hormone (TSH) 5.799 uiU/mL (0.358-3.740) Plan Problems: (1) Anemia (2) Bartholin's gland abscess Assessment & Plan: 69-year-old female Bartholin gland abscess cyst. Status post incision and drainage with drain placement. Drain currently in place and still draining. States that it feels better but continues to hurt. Plan for hemodialysis initiated by shipping lead. Patient has a catheter in place unlikely infected. We will continue to monitor for local abscess drainage and improvement. Will monitor drain and manage drain accordingly. Okay for warm compress as needed. Pain management Rx written. Trend labs. Antibiotics per ID. May need repeat drainage if does not improve significantly. Thank you for letting participate in patient's care will follow recommendations anemia - transfuse prbc with HD Continue with catheter drainage functional doing well Discussed care plan with the patient Plan for outpatient IMPORT AND EXPORT CLERK follow-up on discharge. prbc with HD prn as per renal drain okay KUB in AM bowel regimen - constipated Drain has fallen out. Cellulitis is improved. Nontender no draining okay for drain to be out. Outpatient follow-up plan. Persistent fevers right tunneled 2-year-old permacath removed Discussed with medical team nephrology and radiology plan for new line placement this Friday new tunneled left chest wall cath placed for HD doing well comfortable d/c planning bleeding from right chest wall prior port site. hemostasis with dressings at bedside hold d/c suture placed stable labs noted okay (3) Hypoglycemia (4) Vulval cellulitis (5) Missed dialysis (6) ESRD (end stage renal disease) on dialysis (7) Hyperkalemia (8) Substance abuse (9) HIV disease (10) HCV antibody positive (11) Weakness (12) Epileptic seizure, generalized Deon Crowe Feb 25, 2020 14:02
[2020-02-25] MEDS: Renvela 800mg Pkt ORAL SCH (16:50)
--- NOTE | 2020-02-25 18:09 | NUR ---
NURSE NOTES: Pt was given IV hydralazine, PO hydralazine, IV dilaudid, IV bendaryl and valium throughout the day without any success on lowering BP, made aware
--- NOTE | 2020-02-25 20:30 | NUR ---
HAND-OFF: Report given to MARTIN DIAZ.
--- NOTE | 2020-02-25 21:06 | Consultation ---
Consult Note Consult Note Cardiac EP Full note dictated #[id number] Assessment: 69 yo woman with multiple chronic medical issues, including hepatitis c, HIV +, ESRD, on hemodialysis, HTN and hypothyroidism. She was adm w / infected Bartholin's cyst and s aureus bacteremia, felt due to HD catheter. She underwent treatment, including i/d of abscess, removal and replacement of HD catheter and iv abx. She is noted w/ short runs of SVT ( shortly after adm), and now has SB to 50s and pauses ( 2 consecutive pauses of 3 sec last pm at 830) . She was on clonidine and metoprolol at this time, and these meds were stopped. She also has elevated TSH of 5.7. She may have sick sinus syndrome, but cannot r/o bradyarrhythmias due to reversible causes ( meds, thyroid disease ). Recommendations. Continue telemetry monitoring. Remain off b blcokers and all negative chronotropic agents and clonidine. Check full tfts - r/o hypothyroidism. If further bradyarrhythmias and no reversible causes found, would place pacemaker . Would need to consider leadless pacemaker, as pt with no subclavian access due to HD catheters ( removal of infected catheter on R, and new catheter on L) Prisca Coello MD Feb 25, 2020 21:06
[2020-02-25] MEDS: Epoetin Alfa-EPBX(ESRD on dialysis)3000 units/ml vial SUBQ SCH (21:32)
[2020-02-25] MEDS: Epoetin Alfa-EPBX(ESRD on dialysis)2000 units/ml vial SUBQ SCH (21:33)
[2020-02-26] VITALS: BP 130/82
[2020-02-26] MEDS ORDERED: HYDROmorphone 1mg/ml Carpuject IVP SCH (01:15)
[2020-02-26 04:00] VITALS: BP 168/94
[2020-02-26] MEDS: HydrALAZINE 25mg tab ORAL SCH ×3 (06:04→22:14)
--- NOTE | 2020-02-26 07:00 | NUR ---
NURSE NOTES: RESTED WELL, NO SIGNIFICANT CHANGE OF CONDITION NOTED THROUGHOUT THE NIGHT. SAFETY MAINTAINED. NAD.
--- NOTE | 2020-02-26 07:30 | NUR ---
NURSE NOTES: Received report from MARTIN Velasquez. Patient AAO x3. C/O 05/13 generalized body pain. Pt. grimacing, moaning. Breathing regular, unlabored. Radial pulses palpable, equal. L AC 20 g SL intact, no redness, patent and flushed. Bed low and locked, call light in reach, fall education provided, side rails x2 raised.
--- NOTE | 2020-02-26 07:50 | NUR ---
HAND-OFF: Report given to MARTIN THAKUR.
[2020-02-26 08:00] VITALS: BP 184/99
[2020-02-26] MEDS: HYDROmorphone 1mg/ml Carpuject IVP PRN ×3 (08:09→20:24)
[2020-02-26] MEDS: Docusate 100mg cap ORAL SCH ×3 (08:22→16:55)
[2020-02-26] MEDS: DiphenhydrAMINE 50mg/ml Inj IVP PRN ×2 (08:23→14:03)
[2020-02-26] MEDS: Renvela 800mg Pkt ORAL SCH ×3 (08:30→16:55)
--- NOTE | 2020-02-26 08:38 | NUR ---
NURSE NOTES: Notified by medical chief technician Cindy that HR 132, SR. Pt. c/o 05/13 pain. Medications administered, distraction provided. Pt. now calm, 70s NSR.
--- NOTE | 2020-02-26 09:38 | Nephrology Progress Note ---
Assessment/Plan Problem List: (1) ESRD (end stage renal disease) on dialysis (2) Hyperkalemia (3) Bartholin's gland abscess (4) Anemia (5) HCV antibody positive (6) HIV disease (7) Substance abuse Assessment Patient presents with hyperkalemia, anemia and 1 week of no dialysis Previous frequent chest pains. Anemia and evidence of upper GI bleed and [employer] in the past. Patient was on anticoagulation for atrial fibrillation however it is unclear how compliant the patient is. History of frequent hyperkalemia due to missing hemodialysis. End-stage renal disease on hemodialysis. The patient has a right chest permacath which is not dressed and appears to either be infected or very prone to infection. HIV disease. Substance abuse with previous urine test positive for narcotics and cocaine. History of hepatitis C virus. History of hypertensive kidney disease. Plan February 25: Dialyzed yesterday. Transfused 2 February 23. Next dialysis is scheduled for February 27. Will check lab tomorrow. Add Coreg for better blood pressure control February 24: Due for dialysis today. Transfused yesterday. Blood pressure slightly elevated. Will adjust blood pressure medication. February 23: Dialyzed yesterday. Hemoglobin lower today. Will transfuse 1 unit of packed RBCs today. Dialyzed tomorrow. If stable can be discharged after dialysis tomorrow. February 22: Order dialysis for today. Lab reviewed. Blood pressure acceptable. Hemoglobin 8.1 February 21: Dialyzed yesterday. No labs drawn today. Blood pressure controlled. Will check lab tomorrow. February 20: Due for dialysis today. Labs reviewed. Blood pressure medication adjusted. Continue per consultants. February 19: Will order dialysis tomorrow February 20. Will check lab in a.m. Continue per consultants. February 18: Was dialyzed yesterday February 17. Has a new permacath over the left side of the chest. Patient also was transfused yesterday. Anemia improved. Next dialysis February 20Friday. February 17: Last dialysis was February 14. Patient due to have a permacath today and then arrange for dialysis and 2 units of blood transfusion afterwards. Discussed with RN. Labs reviewed. Expect correction of the chemistry panel after dialysis. February 16: Last dialysis February 14. Due for dialysis tomorrow February 17. Due for insertion of a permacath by IR tomorrow. The removed catheter on February 14 has a negative tip culture February 15: Patient last dialyzed February 14. Today's labs reviewed. Discussed with Dr. Crowe. The dialysis catheter was removed yesterday. New catheter will be placed on February 17. 2 sets of blood cultures ordered. Discussed with RN, and charge nurse. February 14: Patient was dialyzed yesterday. Today's labs reviewed. Discussed with PMD. The ID performance management consultant suggest removal of the permacath due to infection. Will arrange for dialysis today. Will remove the permacath after dialysis today. Will reinsert a dialysis catheter 48 hours later. Discussed with RN. Orders in EMR. February 13: Due for dialysis today. Hemoglobin higher after transfusion. Continue per consultants. February 12: Next dialysis tomorrow on February 13. Hemoglobin remains low patient is due for another transfusion today. Continue per current treatment plan. February 11: Patient was dialyzed yesterday. Labs reviewed. Hemoglobin low. Due for transfusion. Next dialysis February 13, unless she needs it earlier. Medications are reviewed. Metoprolol dose increased. February 10: Patient due for dialysis today February 10. No labs drawn today. Will check renal parameters tomorrow. Continue per consultants. Patient anemic, transfusion is suggested. Patient dialyzed February 08, late night, for potassium of 7.4. Will give Kayexalate for high potassium as needed Adjust blood pressure medication. Folate supplement. Due for transfusion. Per orders. Subjective ROS Limited/Unobtainable: No Constitutional: Reports: malaise Objective Objective Last 24 Hour Vital Signs Date Time Temp Pulse Resp B/P (MAP) Pulse Ox O2 Delivery O2 Flow Rate FiO2 02/26/20 08:27 180/91 02/26/20 08:23 73 180/91 02/26/20 08:00 97.0 68 18 184/99 (127) 97 02/26/20 06:04 174/92 02/26/20 04:00 69 02/26/20 04:00 98.7 92 20 168/94 (118) 96 02/26/20 01:51 98.1 02/26/20 00:00 67 02/26/20 00:00 98.1 67 20 130/82 (98) 96 02/25/20 21:32 173/88 02/25/20 21:00 Room Air 02/25/20 20:00 99.0 64 22 143/83 (103) 95 02/25/20 20:00 64 02/25/20 18:50 97.7 64 20 164/74 (104) 100 02/25/20 17:26 97.9 02/25/20 16:49 190/84 02/25/20 16:00 62 02/25/20 16:00 97.7 64 20 164/74 (104) 100 02/25/20 12:44 190/84 02/25/20 12:00 64 02/25/20 12:00 97.9 65 20 206/99 (134) 94 02/25/20 09:44 190/84 Intake and Output 02/25/20 02/26/20 19:00 07:00 Intake Total 320 ml Output Total 2000 ml Balance -2000 ml 320 ml Intake Oral 320 ml Hemodialysis UF 2000 ml # Voids 2 No labs from today Laboratory Tests 02/26/20 08:30: Free Thyroxine 1.28, Triiodothyronine (T3) Uptake [Pending] Height (Feet): 5 Height (Inches): 8.00 Weight (Pounds): 179 General Appearance: no apparent distress Cardiovascular: other - Variable rate Respiratory/Chest: decreased breath sounds Abdomen: soft Objective No change Jack Pryor MD Feb 26, 2020 09:38
--- NOTE | 2020-02-26 10:10 | Infectious Diseases Prog Note ---
"Assessment/Plan Assessment/Plan antibiotics : none A 1. staph aureus sepsis s/p catheter removal 2. bartholins cyst infection with proteus | enterococcus s/p drainage 3. Hypertension. 4. HIV. 5. Hepatitis C. 6. Renal failure. 7. COVID 19 negative 8. r/o thoracic or lumbar osteomyelitis PLAN: 1. observe off antibiotics 2. CT T and L spine Subjective Constitutional: Denies: fever, chills Respiratory: Denies: shortness of breath, dry cough Gastrointestinal/Abdominal: Denies: nausea, vomiting, diarrhea Musculoskeletal: Reports: pain - back pain Allergies: Coded Allergies: ASPIRIN (Unverified Allergy, Unknown, 01/16/20) IODINE (Verified Allergy, Unknown, 01/07/20) Uncoded Allergies: CONTRAST DYE (Allergy, Unknown, 01/07/20) Objective Last 24 Hour Vital Signs Date Time Temp Pulse Resp B/P (MAP) Pulse Ox O2 Delivery O2 Flow Rate FiO2 02/26/20 08:38 132 02/26/20 08:27 180/91 02/26/20 08:23 73 180/91 02/26/20 08:00 72 02/26/20 08:00 97.0 68 18 184/99 (127) 97 02/26/20 06:04 174/92 02/26/20 04:00 69 02/26/20 04:00 98.7 92 20 168/94 (118) 96 02/26/20 01:51 98.1 02/26/20 00:00 67 02/26/20 00:00 98.1 67 20 130/82 (98) 96 02/25/20 21:32 173/88 02/25/20 21:00 Room Air 02/25/20 20:00 99.0 64 22 143/83 (103) 95 02/25/20 20:00 64 02/25/20 18:50 97.7 64 20 164/74 (104) 100 02/25/20 17:26 97.9 02/25/20 16:49 190/84 02/25/20 16:00 62 02/25/20 16:00 97.7 64 20 164/74 (104) 100 02/25/20 12:44 190/84 02/25/20 12:00 64 02/25/20 12:00 97.9 65 20 206/99 (134) 94 Height (Feet): 5 Height (Inches): 8.00 Weight (Pounds): 179 Respiratory/Chest: lungs clear Cardiovascular: normal rate, regular rhythm, no gallop/murmur Abdomen: soft, non tender Extremities: no edema, other - left subclavian Laboratory Tests Test 02/26/20 08:30 Free Thyroxine 1.28 NG/DL (0.76-1.46) Triiodothyronine (T3) Uptake Pending Current Medications Medications (Trade) Dose Ordered Sig/Rochelle Route PRN Reason Start Time Stop Time Status Last Admin Dose Admin Acetaminophen (Tylenol) 650 mg Q4H PRN ORAL Mild Pain (Pain Scale 1-3) 02/22/20 21:30 03/23/20 21:29 02/24/20 08:43 Amlodipine Besylate (Norvasc) 10 mg DAILY ORAL 02/23/20 09:00 03/11/20 08:59 02/26/20 08:23 Diazepam (Valium) 10 mg BIDPRN PRN ORAL For Anxiety 02/22/20 21:30 02/29/20 21:29 02/26/20 02:47 Diphenhydramine HCl (Benadryl) 25 mg Q6H PRN IVP Itching 02/22/20 21:30 03/23/20 21:29 02/26/20 08:23 Docusate Sodium (Colace) 100 mg TID ORAL 02/23/20 09:00 03/10/20 17:59 02/26/20 08:22 Epoetin Jose (Epoetin Jose(ESRD on dialysis)) 2,000 unit SUBQ 02/23/20 21:00 05/16/20 20:59 02/25/20 21:33 Epoetin Jose (Epoetin Jose(ESRD on dialysis)) 3,000 unit FRI- SUBQ 02/23/20 21:00 05/16/20 20:59 02/25/20 21:32 Folic Acid (Folate) 2 mg DAILY ORAL 02/23/20 09:00 03/11/20 09:59 02/26/20 08:22 Hydralazine HCl (Apresoline) 10 mg Q4H PRN IV BP over 160 systolic 02/25/20 15:15 05/25/20 15:14 02/26/20 08:27 Hydralazine HCl (Apresoline) 75 mg Q8HR ORAL 02/22/20 22:00 05/18/20 17:59 02/26/20 06:04 Hydromorphone HCl (Dilaudid) 1 mg Q4H PRN IVP Severe Pain (Pain Scale 7-10) 02/26/20 01:00 03/04/20 00:59 02/26/20 08:09 Levothyroxine Sodium (Synthroid) 50 mcg DAILY@0630 ORAL 02/26/20 06:30 03/27/20 06:29 02/26/20 06:04 Lidocaine HCl (Xylocaine Viscous) 15 ml Q4H PRN ORAL pain in mouth 02/23/20 09:30 05/23/20 09:29 02/23/20 15:36 Magnesium Hydroxide (Mom) 30 ml DAILYPRN PRN ORAL Constipation 02/22/20 21:30 03/23/20 21:29 Ondansetron HCl (Zofran) 4 mg Q6H PRN IV Nausea & Vomiting 02/22/20 21:30 03/23/20 21:29 Pantoprazole (Protonix) 40 mg BID ORAL 02/23/20 09:00 03/10/20 17:59 02/26/20 08:22 Sevelamer Carbonate (Renvela) 1,600 mg THREE TIMES A DAY ORAL 02/25/20 18:00 05/09/20 17:59 02/26/20 08:30 Elvis Garibay MD Feb 26, 2020 10:10"
--- NOTE | 2020-02-26 10:50 | NUR ---
NURSE NOTES: Pt. home medications placed in security bag #[id number].
--- NOTE | 2020-02-26 11:31 | General Progress Note ---
Assessment/Plan Problem List: (1) Epileptic seizure, generalized ICD Codes: G40.309 - Generalized idiopathic epilepsy and epileptic syndromes, not intractable, without status epilepticus SNOMED: 89260009 (2) Weakness ICD Codes: R53.1 - Weakness SNOMED: 78076004 (3) HIV disease ICD Codes: B20 - Human immunodeficiency virus [HIV] disease SNOMED: 71048002 (4) Substance abuse ICD Codes: F19.10 - Other psychoactive substance abuse, uncomplicated SNOMED: 47631097 (5) Bartholin's gland abscess ICD Codes: N75.1 - Abscess of Bartholin's gland SNOMED: 33592517 (6) Hypoglycemia ICD Codes: E16.2 - Hypoglycemia, unspecified SNOMED: 316663166 Status: stable Assessment/Plan: cont iv abx transfuse per renal monitor h/h pain rx HD per renal off b-blockers thyroid replacement hydralazine for htn ep and cardiology follow up may need pacemaker Subjective Allergies: Coded Allergies: ASPIRIN (Unverified Allergy, Unknown, 01/16/20) IODINE (Verified Allergy, Unknown, 01/07/20) Uncoded Allergies: CONTRAST DYE (Allergy, Unknown, 01/07/20) Subjective \Patient is moaning in pain. Anxious and agitated. On IV Dilaudid and Valium. Continues to have episodes of bradycardia as low as 30. Also having episodes of tachycardia as high as 130. EP note appreciated. Denies fevers or chills. No chest pain or shortness of breath. Objective Last 24 Hour Vital Signs Date Time Temp Pulse Resp B/P (MAP) Pulse Ox O2 Delivery O2 Flow Rate FiO2 02/26/20 09:00 Room Air 02/26/20 08:38 132 02/26/20 08:27 180/91 02/26/20 08:23 73 180/91 02/26/20 08:00 72 02/26/20 08:00 97.0 68 18 184/99 (127) 97 02/26/20 06:04 174/92 02/26/20 04:00 69 02/26/20 04:00 98.7 92 20 168/94 (118) 96 02/26/20 01:51 98.1 02/26/20 00:00 67 02/26/20 00:00 98.1 130/82 (98) 96 02/25/20 21:32 173/88 02/25/20 21:00 Room Air 02/25/20 20:00 99.0 64 22 143/83 (103) 95 02/25/20 20:00 64 02/25/20 18:50 97.7 64 20 164/74 (104) 100 02/25/20 17:26 97.9 02/25/20 16:49 190/84 02/25/20 16:00 62 02/25/20 16:00 97.7 64 20 164/74 (104) 100 02/25/20 12:44 190/84 02/25/20 12:00 64 02/25/20 12:00 97.9 65 20 206/99 (134) 94 Intake and Output 02/25/20 02/26/20 19:00 07:00 Intake Total 320 ml Output Total 2000 ml Balance -2000 ml 320 ml Intake Oral 320 ml Hemodialysis UF 2000 ml # Voids 2 Laboratory Tests 02/26/20 08:30: Free Thyroxine 1.28, Triiodothyronine (T3) Uptake [Pending] Height (Feet): 5 Height (Inches): 8.00 Weight (Pounds): 179 Objective General Appearance: WD/WN, lethargic EENT: PERRL/EOMI, normal ENT inspection Neck: non-tender, normal alignment Cardiovascular: normal peripheral pulses, normal rate, regular rhythm Respiratory/Chest: chest wall non-tender, lungs clear, normal breath sounds Abdomen: normal bowel sounds, non tender, soft, no organomegaly Extremities: normal range of motion Edema: no edema noted Arm (L), no edema noted Arm (R) Neurologic: periodicals library assistant II-XII grossly normal, no motor/sensory deficits, abnormal gait , alert, oriented x 3, responsive Michael Peralta MD Feb 26, 2020 11:31
--- NOTE | 2020-02-26 11:56 | Surgery Progress Note ---
Surgery Progress Note Subjective Procedure Performed removal of infected right chest wall tunneled hemodialysis catheter Additional Comments Resting comfortable. Cardiology input appreciated. Potentially needs pacemaker. Hemodialysis going well. No bleeding. Labs noted. Objective Last 24 Hour Vital Signs Date Time Temp Pulse Resp B/P (MAP) Pulse Ox O2 Delivery O2 Flow Rate FiO2 02/26/20 09:00 Room Air 02/26/20 08:38 132 02/26/20 08:27 180/91 02/26/20 08:23 73 180/91 02/26/20 08:00 72 02/26/20 08:00 97.0 68 18 184/99 (127) 97 02/26/20 06:04 174/92 02/26/20 04:00 69 02/26/20 04:00 98.7 92 20 168/94 (118) 96 02/26/20 01:51 98.1 02/26/20 00:00 67 02/26/20 00:00 98.1 67 20 130/82 (98) 96 02/25/20 21:32 173/88 02/25/20 21:00 Room Air 02/25/20 20:00 99.0 64 22 143/83 (103) 95 02/25/20 20:00 64 02/25/20 18:50 97.7 64 20 164/74 (104) 100 02/25/20 17:26 97.9 02/25/20 16:49 190/84 02/25/20 16:00 62 02/25/20 16:00 97.7 64 20 164/74 (104) 100 02/25/20 12:44 190/84 02/25/20 12:00 64 02/25/20 12:00 97.9 65 20 206/99 (134) 94 I&O Intake and Output 02/25/20 02/26/20 19:00 07:00 Intake Total 320 ml Output Total 2000 ml Balance -2000 ml 320 ml Intake Oral 320 ml Hemodialysis UF 2000 ml # Voids 2 Dressing: dry Wound: clean Cardiovascular: RSR Respiratory: clear Abdomen: soft, non-tender, present bowel sounds Extremities: no edema, no tenderness, no cyanosis Laboratory Tests Test 02/26/20 08:30 Free Thyroxine 1.28 NG/DL (0.76-1.46) Triiodothyronine (T3) Uptake Pending Plan Problems: (1) Anemia (2) Bartholin's gland abscess Assessment & Plan: 69-year-old female Bartholin gland abscess cyst. Status post incision and drainage with drain placement. Drain currently in place and still draining. States that it feels better but continues to hurt. Plan for hemodialysis initiated by massage therapy instructor. Patient has a catheter in place unlikely infected. We will continue to monitor for local abscess drainage and improvement. Will monitor drain and manage drain accordingly. Okay for warm compress as needed. Pain management Rx written. Trend labs. Antibiotics per ID. May need repeat drainage if does not improve significantly. Thank you for letting participate in patient's care will follow recommendations anemia - transfuse prbc with HD Continue with catheter drainage functional doing well Discussed care plan with the patient Plan for outpatient REFRACTORY MIXER follow-up on discharge. prbc with HD prn as per renal drain okay KUB in AM bowel regimen - constipated Drain has fallen out. Cellulitis is improved. Nontender no draining okay for drain to be out. Outpatient follow-up plan. Persistent fevers right tunneled 2-year-old permacath removed Discussed with medical team nephrology and radiology plan for new line placement this Friday new tunneled left chest wall cath placed for HD doing well comfortable d/c planning bleeding from right chest wall prior port site. hemostasis with dressings at bedside hold d/c suture placed stable labs noted okay (3) Hypoglycemia (4) Vulval cellulitis Assessment & Plan: Stable improving (5) Missed dialysis (6) ESRD (end stage renal disease) on dialysis (7) Hyperkalemia (8) Substance abuse (9) HIV disease (10) HCV antibody positive (11) Weakness (12) Epileptic seizure, generalized (13) Laceration of right chest wall Assessment & Plan: Now hemostatic. Dressings intact. Suture okay. We will plan suture removal when appropriate. Deon Crowe Feb 26, 2020 11:56
[2020-02-26 12:00] VITALS: BP 173/86
[2020-02-26] MEDS ORDERED: Carvedilol 12.5mg tab ORAL SCH (13:15)
--- NOTE | 2020-02-26 14:29 | NUR ---
NURSE NOTES: Pt. off unit for CT.
--- NOTE | 2020-02-26 14:59 | NUR ---
NURSE NOTES: Pt. returned from CT without incident.
--- NOTE | 2020-02-26 15:45 | Diagnostic Imaging Report ---
EXAM: CT Thoracic Spine Without Intravenous Contrast CLINICAL HISTORY: ABSCESS TECHNIQUE: Axial computed tomography images of the thoracic spine without intravenous contrast. CTDI is 8.8 mGy and DLP is 298.1 mGy-cm. One or more of the following dose reduction techniques were used: automated exposure control, adjustment of the mA and/or kV according to patient size, use of iterative reconstruction technique. COMPARISON: No relevant prior studies available. FINDINGS: Vertebrae: Hemangioma T8 vertebral body. T11 Small superior endplate Schmorl's nodules. No acute fracture. Discs/spinal canal/neural foramina: No acute findings. No spinal canal stenosis. Soft tissues: Unremarkable. Lymph nodes: Numerous mediastinal, supraclavicular lymph nodes. Pleural space: Vascular congestion. Small right pleural effusion. Trace left pleural effusion. IMPRESSION: 1. No acute osseous abnormality. No evidence of osteomyelitis. 2. Vascular congestion. Small right pleural effusion. Trace left pleural effusion. Query CHF. 3. Numerous mediastinal, supraclavicular lymph nodes.
--- NOTE | 2020-02-26 15:51 | Diagnostic Imaging Report ---
EXAM: CT Lumbar Spine Without Intravenous Contrast CLINICAL HISTORY: ABSCESS TECHNIQUE: Axial computed tomography images of the lumbar spine without intravenous contrast. CTDI is 11.3 mGy and DLP is 376 mGy-cm. One or more of the following dose reduction techniques were used: automated exposure control, adjustment of the mA and/or kV according to patient size, use of iterative reconstruction technique. COMPARISON: CT abdomen and pelvis 01/07/20 and lumbar spine 01/07/20 FINDINGS: Vertebrae: L4 vertebral body hemangioma. No acute fracture. Normal alignment. No evidence of osteomyelitis. Discs/spinal canal/neural foramina: L4-5 mild broad-based disc bulge. No significant stenosis. Soft tissues: Unremarkable. Vasculature: Atherosclerotic vascular disease. Pleural space: Small right pleural effusion. Spleen: Splenomegaly. Kidneys and ureters: Few low-density lesions bilateral kidneys, largest 14 mm on the right and a rim calcified 15 mm cyst on the left. Stomach and bowel: Metallic hyperdensity in the proximal stomach may be ingested. Reproductive: 2 cm cyst or follicle the left ovary, previously 5 cm. IMPRESSION: 1. No acute osseous abnormality. 2. Small right pleural effusion. 3. Splenomegaly. 4. 2 cm cyst or follicle the left ovary, previously 5 cm. 5. Metallic hyperdensity in the proximal stomach may be ingested.
[2020-02-26 16:00] VITALS: BP 159/78
--- NOTE | 2020-02-26 16:40 | NUR ---
NURSE NOTES: Notified by Rough Patcher Armando pt. bradycardic 20s x6 seconds, questionable 3rd degree block. Self resolved, now NSR 70s. Found pt. asleep, arousable by name. Denies chest pain, palpitations, dizziness. Skin warm and dry, cap refill <3 second centrally, radial pulses palpable/equal. Oral mucosa pink. VS as follows: BP 159/68, pulse 62, SPO2 98%. Pt. continues to c/o back pain. 12-lead performed. MD Lopez updated at bedside. No new orders, will continue to monitor.
--- NOTE | 2020-02-26 16:59 | Cardiac Electrophysiology PN ---
Assessment/Plan Problem List: (1) Sick sinus syndrome (2) Hypertension (3) Substance abuse (4) HIV disease (5) HCV antibody positive (6) ESRD (end stage renal disease) on dialysis Status: stable, unchanged Status Narrative Bradyarrhythmia - Mrs Mahmood had an episode of bradycardia,with 3.6 sec asystole this pm at 16:18. Per RN, she was sleeping at the time. She had been started on carvedilol and had received 12.5 mg today at 13:15. It is likely that she has some degree of intrinsic conduction disease, worsened by meds. She has an elevated TSH, but normal free T4, ? subclinical hypoothyroidism HTN - BP elevated to 160-170s systolic today. ESRD, on hemodialysis severe back pain - r/o osteomyelitis or spinal abscess. Assessment/Plan Will dc coreg, and increase hydralazine for BP control. Continue amlodipine 10 mg /d. ? if pt would tolerate ARB for BP control. Continue telemetry. Hold on permanent pacemaker at this time. If necessary, she would need to have a leadless pacemaker, as she does not have subclavian access ( removed infected R subclavian hemodialysis catheter and new catheter placed on L (tunnelled L IJ to L chest ). Evaluation for cause of back pain per primary team and ID. d/w pt. d/w RN Subjective ROS Limited/Unobtainable: No Subjective Cardiac EP Pt c/o back pain Events: Pt had a 2.3 sec followed by 3.6 sec asystole today at 16:18 Objective Last 24 Hour Vital Signs Date Time Temp Pulse Resp B/P (MAP) Pulse Ox O2 Delivery O2 Flow Rate FiO2 02/26/20 16:00 98.5 73 21 159/78 (105) 98 02/26/20 14:02 76 169/76 02/26/20 14:02 169/76 02/26/20 12:40 180/86 02/26/20 12:00 76 02/26/20 12:00 98.3 73 20 173/86 (115) 98 02/26/20 09:00 Room Air 02/26/20 08:38 132 02/26/20 08:27 180/91 02/26/20 08:23 73 180/91 02/26/20 08:00 72 02/26/20 08:00 97.0 68 18 184/99 (127) 97 02/26/20 06:04 174/92 02/26/20 04:00 69 02/26/20 04:00 98.7 92 20 168/94 (118) 96 02/26/20 01:51 98.1 02/26/20 00:00 67 02/26/20 00:00 98.1 67 20 130/82 (98) 96 02/25/20 21:32 173/88 02/25/20 21:00 Room Air 02/25/20 20:00 99.0 64 22 143/83 (103) 95 02/25/20 20:00 64 02/25/20 18:50 97.7 64 20 164/74 (104) 100 02/25/20 17:26 97.9 02/25/20 16:49 190/84 General Appearance: WD/WN, alert, mild distress EENT: PERRL/EOMI Neck: supple, no JVD Rhythm: NSR Cardiovascular: normal rate, regular rhythm, systolic murmur, other - S1S2 with a ii/vi systolic M along LSB radiating to apex. no s3 Respiratory/Chest: lungs clear, normal breath sounds, other - clear anteriorly Abdomen: non tender, soft Extremities: no swelling Intake and Output 02/25/20 02/26/20 19:00 07:00 Intake Total 320 ml Output Total 2000 ml Balance -2000 ml 320 ml Intake Oral 320 ml Hemodialysis UF 2000 ml # Voids 2 Laboratory Tests Test 02/26/20 08:30 Free Thyroxine 1.28 NG/DL (0.76-1.46) Triiodothyronine (T3) Uptake Pending Prisca Coello MD Feb 26, 2020 16:59
--- NOTE | 2020-02-26 19:17 | NUR ---
NURSE NOTES: Reported off to MARTIN Lozada.
--- NOTE | 2020-02-26 19:20 | NUR ---
NURSE NOTES: Received report from MARTIN Payne. Patient is awake alert and oriented x 3. On renal diet, soft easy chew, can swallow whole pill, instructed and amenable. pvc monitor is in placed, shows sinus rhythm with no chest pain reported. On fall, seizure precaution. IV site is on left forearm G-20 saline lock that is patent and intact. HD access is on Left transjugular. Safety measures are in placed, bed in lowest and locked position, side rails up x 2. Call light button and bedside table within reach, instructed to call for any assistance needed.
[2020-02-26 20:00] VITALS: BP 185/88
[2020-02-26] MEDS: Carvedilol 12.5mg tab ORAL SCH (20:23)
[2020-02-27] VITALS (7 sets, daily range): BP systolic 119–183; BP diastolic 69–91
[2020-02-27] MEDS: HYDROmorphone 1mg/ml Carpuject IVP PRN ×4 (02:18→17:28)
--- NOTE | 2020-02-27 02:18 | NUR ---
NURSE NOTES: PATIENT GIVEN DILAUDID PRESCRIBED FOR PAIN- PALPATED RIGHT RADIAL PULSE WITH HR 68, RR 17.
[2020-02-27] MEDS: DiphenhydrAMINE 50mg/ml Inj IVP PRN ×2 (05:23→20:52)
[2020-02-27] MEDS: HydrALAZINE 25mg tab ORAL SCH ×3 (06:21→21:29)
--- NOTE | 2020-02-27 07:10 | NUR ---
NURSE NOTES: Received report from MARTIN Dickinson. Patient asleep, arousable by name. No c/o pain. No acute distress. Breathing regular and unlabored on RA. Radial pulses palpable, equal. L AC 20g saline locked, patent and flushed. HD catheter dressing intact. Bed low and locked, call light in reach, side rails raised x2, bed alarm on.
--- NOTE | 2020-02-27 07:16 | NUR ---
HAND-OFF: Report given to MARTIN Payne. Patient is awake on bed, in stable condition. No copmpalints made at this time, plan of care endorsed.
[2020-02-27] MEDS: Carvedilol 12.5mg tab ORAL SCH (08:13)
[2020-02-27] MEDS: Docusate 100mg cap ORAL SCH ×3 (08:13→17:10)
[2020-02-27] MEDS: Renvela 800mg Pkt ORAL SCH ×3 (08:14→17:10)
[2020-02-27 08:43] LABS: BASOPHILS % (AUTO) 0.9 % (0.0-2.0); EOSINOPHILS % (AUTO) 4.8 % (0.0-3.0); HEMATOCRIT 30.7 % (37.0-47.0); HEMOGLOBIN 9.8 G/DL (12.0-16.0); LYMPHOCYTES % (AUTO) 17.7 % (20.0-45.0); MEAN CORPUSCULAR VOLUME 94 FL (80-99); MONOCYTES % (AUTO) 9.5 % (1.0-10.0); NEUTROPHILS % (AUTO) 67.2 % (45.0-75.0); PLATELET COUNT 139 K/UL (150-450); RED BLOOD COUNT 3.28 M/UL (4.20-5.40); RED CELL DISTRIBUTION WIDTH 13.6 % (11.6-14.8)
[2020-02-27 09:09] LABS: ALANINE AMINOTRANSFERASE 8 U/L (12-78); ALBUMIN 2.8 G/DL (3.4-5.0); ALBUMIN/GLOBULIN RATIO 0.6 (1.0-2.7); ALKALINE PHOSPHATASE 70 U/L (46-116); ANION GAP 5 mmol/L (5-15); ASPARTATE AMINO TRANSFERASE 21 U/L (15-37); BILIRUBIN,TOTAL 0.5 MG/DL (0.2-1.0); BLOOD UREA NITROGEN 17 mg/dL (7-18); CALCIUM 8.3 MG/DL (8.5-10.1); CARBON DIOXIDE 30 MMOL/L (21-32); CHLORIDE 97 MMOL/L (98-107); CREATININE 7.1 MG/DL (0.55-1.30); POTASSIUM 4.4 MMOL/L (3.5-5.1); SODIUM 132 MMOL/L (136-145)
--- NOTE | 2020-02-27 11:32 | Nephrology Progress Note ---
Assessment/Plan Problem List: (1) ESRD (end stage renal disease) on dialysis (2) Hyperkalemia (3) Bartholin's gland abscess (4) Anemia (5) HCV antibody positive (6) HIV disease (7) Substance abuse Assessment Patient presents with hyperkalemia, anemia and 1 week of no dialysis Previous frequent chest pains. Anemia and evidence of upper GI bleed and [employer] in the past. Patient was on anticoagulation for atrial fibrillation however it is unclear how compliant the patient is. History of frequent hyperkalemia due to missing hemodialysis. End-stage renal disease on hemodialysis. The patient has a right chest permacath which is not dressed and appears to either be infected or very prone to infection. HIV disease. Substance abuse with previous urine test positive for narcotics and cocaine. History of hepatitis C virus. History of hypertensive kidney disease. Plan February 26: Due for dialysis tomorrow February 27. Labs reviewed. Blood pressure is stable. February 25: Dialyzed yesterday. Transfused 2 February 23. Next dialysis is scheduled for February 27. Will check lab tomorrow. Add Coreg for better blood pressure control February 24: Due for dialysis today. Transfused yesterday. Blood pressure slightly elevated. Will adjust blood pressure medication. February 23: Dialyzed yesterday. Hemoglobin lower today. Will transfuse 1 unit of packed RBCs today. Dialyzed tomorrow. If stable can be discharged after dialysis tomorrow. February 22: Order dialysis for today. Lab reviewed. Blood pressure acceptable. Hemoglobin 8.1 February 21: Dialyzed yesterday. No labs drawn today. Blood pressure controlled. Will check lab tomorrow. February 20: Due for dialysis today. Labs reviewed. Blood pressure medication adjusted. Continue per consultants. February 19: Will order dialysis tomorrow February 20. Will check lab in a.m. Continue per consultants. February 18: Was dialyzed yesterday February 17. Has a new permacath over the left side of the chest. Patient also was transfused yesterday. Anemia improved. Next dialysis February 20Friday. February 17: Last dialysis was February 14. Patient due to have a permacath today and then arrange for dialysis and 2 units of blood transfusion afterwards. Discussed with RN. Labs reviewed. Expect correction of the chemistry panel after dialysis. February 16: Last dialysis February 14. Due for dialysis tomorrow February 17. Due for insertion of a permacath by IR tomorrow. The removed catheter on February 14 has a negative tip culture February 15: Patient last dialyzed February 14. Today's labs reviewed. Discussed with Dr. Crowe. The dialysis catheter was removed yesterday. New catheter will be placed on February 17. 2 sets of blood cultures ordered. Discussed with RN, and charge nurse. February 14: Patient was dialyzed yesterday. Today's labs reviewed. Discussed with PMD. The ID remediation consultant suggest removal of the permacath due to infection. Will arrange for dialysis today. Will remove the permacath after dialysis today. Will reinsert a dialysis catheter 48 hours later. Discussed with RN. Orders in EMR. February 13: Due for dialysis today. Hemoglobin higher after transfusion. Continue per consultants. February 12: Next dialysis tomorrow on February 13. Hemoglobin remains low patient is due for another transfusion today. Continue per current treatment plan. February 11: Patient was dialyzed yesterday. Labs reviewed. Hemoglobin low. Due for transfusion. Next dialysis February 13, unless she needs it earlier. Medications are reviewed. Metoprolol dose increased. February 10: Patient due for dialysis today February 10. No labs drawn today. Will check renal parameters tomorrow. Continue per consultants. Patient anemic, transfusion is suggested. Patient dialyzed February 08, late night, for potassium of 7.4. Will give Kayexalate for high potassium as needed Adjust blood pressure medication. Folate supplement. Due for transfusion. Per orders. Subjective ROS Limited/Unobtainable: No Constitutional: Reports: malaise Objective Objective Last 24 Hour Vital Signs Date Time Temp Pulse Resp B/P (MAP) Pulse Ox O2 Delivery O2 Flow Rate FiO2 02/27/20 08:13 70 156/82 02/27/20 08:13 70 156/82 02/27/20 08:00 72 02/27/20 08:00 Room Air 02/27/20 07:50 98.7 70 19 156/82 (106) 98 02/27/20 06:21 167/78 02/27/20 04:00 58 02/27/20 04:00 98.0 70 24 167/78 (107) 95 02/27/20 00:00 62 02/27/20 00:00 97.9 73 24 151/76 (101) 95 02/26/20 22:14 180/95 02/26/20 21:00 Room Air 02/26/20 20:23 91 180/95 02/26/20 20:00 72 02/26/20 20:00 98.0 70 24 185/88 (120) 98 02/26/20 16:00 61 02/26/20 16:00 98.5 73 21 159/78 (105) 98 02/26/20 14:02 76 169/76 02/26/20 14:02 169/76 02/26/20 12:40 180/86 02/26/20 12:00 76 02/26/20 12:00 98.3 73 20 173/86 (115) 98 Intake and Output 02/26/20 02/27/20 19:00 07:00 Intake Total 800 ml 650 ml Balance 800 ml 650 ml Intake Oral 800 ml 650 ml Laboratory Tests 02/27/20 08:10: White Blood Count 5.0, Red Blood Count 3.28L, Hemoglobin 9.8L, Hematocrit 30.7L , Mean Corpuscular Volume 94, Mean Corpuscular Hemoglobin 30.0, Mean Corpuscular Hemoglobin Concent 32.0, Red Cell Distribution Width 13.6, Platelet Count 139L, Mean Platelet Volume 6.1L, Neutrophils (%) (Auto) 67.2, Lymphocytes (%) (Auto) 17.7L, Monocytes (%) (Auto) 9.5, Eosinophils (%) (Auto) 4.8H, Basophils (%) (Auto) 0.9, Sodium Level 132L, Potassium Level 4.4, Chloride Level 97L, Carbon Dioxide Level 30, Anion Gap 5, Blood Urea Nitrogen 17, Creatinine 7.1H, Estimat Glomerular Filtration Rate 7.0, Glucose Level 85, Calcium Level 8.3L, Phosphorus Level 3.0, Total Bilirubin 0.5, Aspartate Amino Transf (AST/SGOT) 21, Alanine Aminotransferase (ALT/SGPT) 8L, Alkaline Phosphatase 70, Total Protein 7.8, Albumin 2.8L, Globulin 5.0, Albumin/Globulin Ratio 0.6L Height (Feet): 5 Height (Inches): 8.00 Weight (Pounds): 179 General Appearance: no apparent distress Cardiovascular: normal rate Respiratory/Chest: decreased breath sounds Abdomen: soft Objective No change Jack Pryor MD Feb 27, 2020 11:32
--- NOTE | 2020-02-27 11:57 | Surgery Progress Note ---
Surgery Progress Note Subjective Procedure Performed removal of infected right chest wall tunneled hemodialysis catheter Symptoms: improved, tolerating diet, passing flatus, BM Objective Last 24 Hour Vital Signs Date Time Temp Pulse Resp B/P (MAP) Pulse Ox O2 Delivery O2 Flow Rate FiO2 02/27/20 11:30 96.8 81 20 151/81 (104) 96 02/27/20 08:13 70 156/82 02/27/20 08:13 70 156/82 02/27/20 08:00 72 02/27/20 08:00 Room Air 02/27/20 07:50 98.7 70 19 156/82 (106) 98 02/27/20 06:21 167/78 02/27/20 04:00 58 02/27/20 04:00 98.0 70 24 167/78 (107) 95 02/27/20 00:00 62 02/27/20 00:00 97.9 73 24 151/76 (101) 95 02/26/20 22:14 180/95 02/26/20 21:00 Room Air 02/26/20 20:23 91 180/95 02/26/20 20:00 72 02/26/20 20:00 98.0 70 24 185/88 (120) 98 02/26/20 16:00 61 02/26/20 16:00 98.5 73 21 159/78 (105) 98 02/26/20 14:02 76 169/76 02/26/20 14:02 169/76 02/26/20 12:40 180/86 02/26/20 12:00 76 02/26/20 12:00 98.3 73 20 173/86 (115) 98 I&O Intake and Output 02/26/20 02/27/20 19:00 07:00 Intake Total 800 ml 650 ml Balance 800 ml 650 ml Intake Oral 800 ml 650 ml Dressing: dry Wound: clean Cardiovascular: RSR Respiratory: clear Abdomen: soft, non-tender, present bowel sounds Extremities: no edema, no tenderness, no cyanosis Laboratory Tests Test 02/27/20 08:10 White Blood Count 5.0 K/UL (4.8-10.8) Red Blood Count 3.28 M/UL (4.20-5.40) L Hemoglobin 9.8 G/DL (12.0-16.0) L Hematocrit 30.7 % (37.0-47.0) L Mean Corpuscular Volume 94 FL (80-99) Mean Corpuscular Hemoglobin 30.0 PG (27.0-31.0) Mean Corpuscular Hemoglobin Concent 32.0 G/DL (32.0-36.0) Red Cell Distribution Width 13.6 % (11.6-14.8) Platelet Count 139 K/UL (150-450) L Mean Platelet Volume 6.1 FL (6.5-10.1) L Neutrophils (%) (Auto) 67.2 % (45.0-75.0) Lymphocytes (%) (Auto) 17.7 % (20.0-45.0) L Monocytes (%) (Auto) 9.5 % (1.0-10.0) Eosinophils (%) (Auto) 4.8 % (0.0-3.0) H Basophils (%) (Auto) 0.9 % (0.0-2.0) Sodium Level 132 MMOL/L (136-145) L Potassium Level 4.4 MMOL/L (3.5-5.1) Chloride Level 97 MMOL/L (98-107) L Carbon Dioxide Level 30 MMOL/L (21-32) Anion Gap 5 mmol/L (5-15) Blood Urea Nitrogen 17 mg/dL (7-18) Creatinine 7.1 MG/DL (0.55-1.30) H Estimat Glomerular Filtration Rate 7.0 mL/min (>60) Glucose Level 85 MG/DL (74-106) Calcium Level 8.3 MG/DL (8.5-10.1) L Phosphorus Level 3.0 MG/DL (2.5-4.9) Total Bilirubin 0.5 MG/DL (0.2-1.0) Aspartate Amino Transf (AST/SGOT) 21 U/L (15-37) Alanine Aminotransferase (ALT/SGPT) 8 U/L (12-78) L Alkaline Phosphatase 70 U/L (46-116) Total Protein 7.8 G/DL (6.4-8.2) Albumin 2.8 G/DL (3.4-5.0) L Globulin 5.0 g/dL Albumin/Globulin Ratio 0.6 (1.0-2.7) L Plan Problems: (1) Anemia (2) Bartholin's gland abscess Assessment & Plan: 69-year-old female Bartholin gland abscess cyst. Status post incision and drainage with drain placement. Drain currently in place and still draining. States that it feels better but continues to hurt. Plan for hemodialysis initiated by family resource coordinator. Patient has a catheter in place unlikely infected. We will continue to monitor for local abscess drainage and improvement. Will monitor drain and manage drain accordingly. Okay for warm compress as needed. Pain management Rx written. Trend labs. Antibiotics per ID. May need repeat drainage if does not improve significantly. Thank you for letting participate in patient's care will follow recommendations anemia - transfuse prbc with HD Continue with catheter drainage functional doing well Discussed care plan with the patient Plan for outpatient [employer] follow-up on discharge. prbc with HD prn as per renal drain okay KUB in AM bowel regimen - constipated Drain has fallen out. Cellulitis is improved. Nontender no draining okay for drain to be out. Outpatient follow-up plan. Persistent fevers right tunneled 2-year-old permacath removed Discussed with medical team nephrology and radiology plan for new line placement this Friday new tunneled left chest wall cath placed for HD doing well comfortable d/c planning bleeding from right chest wall prior port site. hemostasis with dressings at bedside hold d/c suture placed stable labs noted okay (3) Hypoglycemia (4) Vulval cellulitis Assessment & Plan: Stable improving (5) Missed dialysis (6) ESRD (end stage renal disease) on dialysis (7) Hyperkalemia (8) Substance abuse (9) HIV disease (10) HCV antibody positive (11) Weakness (12) Epileptic seizure, generalized (13) Laceration of right chest wall Assessment & Plan: Now hemostatic. Dressings intact. Suture okay. We will plan suture removal when appropriate. Deon Crowe Feb 27, 2020 11:57
--- NOTE | 2020-02-27 12:16 | Infectious Diseases Prog Note ---
Assessment/Plan Assessment/Plan A: 1. Staph aureus sepsis (MSSA), catheter infection. 2. Infected Bartholin cyst, status post drainage with Proteus and Enterococcus. 3. Hypertension. 4. HIV. 5. Hepatitis C. 6. ESRD. 7. Severe anemia 8. Cocaine abuse 9. Splenomegaly 10. Chronic back pain PLAN: 1. Observe off antibiotic Subjective ROS Limited/Unobtainable: No Constitutional: Denies: fever Respiratory: Reports: no symptoms Gastrointestinal/Abdominal: Reports: no symptoms Genitourinary: Reports: no symptoms Psychiatric: Reports: depression Musculoskeletal: Reports: pain, other - in back Allergies: Coded Allergies: ASPIRIN (Unverified Allergy, Unknown, 01/16/20) IODINE (Verified Allergy, Unknown, 01/07/20) Uncoded Allergies: CONTRAST DYE (Allergy, Unknown, 01/07/20) Objective Last 24 Hour Vital Signs Date Time Temp Pulse Resp B/P (MAP) Pulse Ox O2 Delivery O2 Flow Rate FiO2 02/27/20 11:30 96.8 81 20 151/81 (104) 96 02/27/20 08:13 70 156/82 02/27/20 08:13 70 156/82 02/27/20 08:00 72 02/27/20 08:00 Room Air 02/27/20 07:50 98.7 70 19 156/82 (106) 98 02/27/20 06:21 167/78 02/27/20 04:00 58 02/27/20 04:00 98.0 70 24 167/78 (107) 95 02/27/20 00:00 62 02/27/20 00:00 97.9 73 24 151/76 (101) 95 02/26/20 22:14 180/95 02/26/20 21:00 Room Air 02/26/20 20:23 91 180/95 02/26/20 20:00 72 02/26/20 20:00 98.0 70 24 185/88 (120) 98 02/26/20 16:00 61 02/26/20 16:00 98.5 73 21 159/78 (105) 98 02/26/20 14:02 76 169/76 02/26/20 14:02 169/76 02/26/20 12:40 180/86 Height (Feet): 5 Height (Inches): 8.00 Weight (Pounds): 179 General Appearance: no acute distress HEENT: mucous membranes moist Respiratory/Chest: lungs clear Cardiovascular: normal rate Abdomen: soft, non tender Extremities: no edema Neurologic/Psychiatric: alert, oriented x 3, responsive Laboratory Tests Test 02/27/20 08:10 White Blood Count 5.0 K/UL (4.8-10.8) Red Blood Count 3.28 M/UL (4.20-5.40) L Hemoglobin 9.8 G/DL (12.0-16.0) L Hematocrit 30.7 % (37.0-47.0) L Mean Corpuscular Volume 94 FL (80-99) Mean Corpuscular Hemoglobin 30.0 PG (27.0-31.0) Mean Corpuscular Hemoglobin Concent 32.0 G/DL (32.0-36.0) Red Cell Distribution Width 13.6 % (11.6-14.8) Platelet Count 139 K/UL (150-450) L Mean Platelet Volume 6.1 FL (6.5-10.1) L Neutrophils (%) (Auto) 67.2 % (45.0-75.0) Lymphocytes (%) (Auto) 17.7 % (20.0-45.0) L Monocytes (%) (Auto) 9.5 % (1.0-10.0) Eosinophils (%) (Auto) 4.8 % (0.0-3.0) H Basophils (%) (Auto) 0.9 % (0.0-2.0) Sodium Level 132 MMOL/L (136-145) L Potassium Level 4.4 MMOL/L (3.5-5.1) Chloride Level 97 MMOL/L (98-107) L Carbon Dioxide Level 30 MMOL/L (21-32) Anion Gap 5 mmol/L (5-15) Blood Urea Nitrogen 17 mg/dL (7-18) Creatinine 7.1 MG/DL (0.55-1.30) H Estimat Glomerular Filtration Rate 7.0 mL/min (>60) Glucose Level 85 MG/DL (74-106) Calcium Level 8.3 MG/DL (8.5-10.1) L Phosphorus Level 3.0 MG/DL (2.5-4.9) Total Bilirubin 0.5 MG/DL (0.2-1.0) Aspartate Amino Transf (AST/SGOT) 21 U/L (15-37) Alanine Aminotransferase (ALT/SGPT) 8 U/L (12-78) L Alkaline Phosphatase 70 U/L (46-116) Total Protein 7.8 G/DL (6.4-8.2) Albumin 2.8 G/DL (3.4-5.0) L Globulin 5.0 g/dL Albumin/Globulin Ratio 0.6 (1.0-2.7) L Current Medications Medications (Trade) Dose Ordered Sig/Rochelle Route PRN Reason Start Time Stop Time Status Last Admin Dose Admin Acetaminophen (Tylenol) 650 mg Q4H PRN ORAL Mild Pain (Pain Scale 1-3) 02/22/20 21:30 03/23/20 21:29 02/24/20 08:43 Amlodipine Besylate (Norvasc) 10 mg DAILY ORAL 02/23/20 09:00 03/11/20 08:59 02/27/20 08:13 Carvedilol (Coreg) 25 mg EVERY 12 HOURS ORAL 02/27/20 21:00 03/27/20 20:59 Diazepam (Valium) 10 mg BIDPRN PRN ORAL For Anxiety 02/22/20 21:30 02/29/20 21:29 02/26/20 22:14 Diphenhydramine HCl (Benadryl) 25 mg Q6H PRN IVP Itching 02/22/20 21:30 03/23/20 21:29 02/27/20 05:23 Docusate Sodium (Colace) 100 mg TID ORAL 02/23/20 09:00 03/10/20 17:59 02/27/20 08:13 Epoetin Jose (Epoetin Jose(ESRD on dialysis)) 2,000 unit SUBQ 02/23/20 21:00 05/16/20 20:59 02/25/20 21:33 Epoetin Jose (Epoetin Jose(ESRD on dialysis)) 3,000 unit SUBQ 02/23/20 21:00 05/16/20 20:59 02/25/20 21:32 Folic Acid (Folate) 2 mg DAILY ORAL 02/23/20 09:00 03/11/20 09:59 02/27/20 08:13 Hydralazine HCl (Apresoline) 10 mg Q4H PRN IV BP over 160 systolic 02/25/20 15:15 05/25/20 15:14 02/26/20 12:40 Hydralazine HCl (Apresoline) 75 mg Q8HR ORAL 02/22/20 22:00 05/18/20 17:59 02/27/20 06:21 Hydromorphone HCl (Dilaudid) 1 mg Q4H PRN IVP Severe Pain (Pain Scale 7-10) 02/26/20 01:00 03/04/20 00:59 02/27/20 11:28 Levothyroxine Sodium (Synthroid) 50 mcg DAILY@0630 ORAL 02/26/20 06:30 03/27/20 06:29 02/27/20 06:21 Lidocaine HCl (Xylocaine Viscous) 15 ml Q4H PRN ORAL pain in mouth 02/23/20 09:30 05/23/20 09:29 02/23/20 15:36 Magnesium Hydroxide (Mom) 30 ml DAILYPRN PRN ORAL Constipation 02/22/20 21:30 03/23/20 21:29 Ondansetron HCl (Zofran) 4 mg Q6H PRN IV Nausea & Vomiting 02/22/20 21:30 03/23/20 21:29 Pantoprazole (Protonix) 40 mg BID ORAL 02/23/20 09:00 03/10/20 17:59 02/27/20 08:13 Sevelamer Carbonate (Renvela) 1,600 mg THREE TIMES A DAY ORAL 02/25/20 18:00 05/09/20 17:59 02/27/20 08:14 Armando Brown MD Feb 27, 2020 12:16
--- NOTE | 2020-02-27 12:22 | General Progress Note ---
Assessment/Plan Problem List: (1) Epileptic seizure, generalized ICD Codes: G40.309 - Generalized idiopathic epilepsy and epileptic syndromes, not intractable, without status epilepticus SNOMED: 86751909 (2) Weakness ICD Codes: R53.1 - Weakness SNOMED: 00358653 (3) HIV disease ICD Codes: B20 - Human immunodeficiency virus [HIV] disease SNOMED: 57369559 (4) Substance abuse ICD Codes: F19.10 - Other psychoactive substance abuse, uncomplicated SNOMED: 64882564 (5) Bartholin's gland abscess ICD Codes: N75.1 - Abscess of Bartholin's gland SNOMED: 93363337 (6) Hypoglycemia ICD Codes: E16.2 - Hypoglycemia, unspecified SNOMED: 737922563 Status: stable, unchanged Assessment/Plan: cont iv abx per id transfuse as needed monitor h/h pain rx HD per renal off b-blockers thyroid replacement hydralazine for htn ep and cardiology follow up may need pacemaker pt/ot eval Subjective ROS Limited/Unobtainable: No Constitutional: Reports: malaise, weakness HEENT: Reports: no symptoms Cardiovascular: Reports: no symptoms Respiratory: Reports: no symptoms Gastrointestinal/Abdominal: Reports: no symptoms Genitourinary: Reports: no symptoms Neurologic/Psychiatric: Reports: anxiety, depressed, emotional problems Endocrine: Reports: no symptoms Hematologic/Lymphatic: Reports: anemia Allergies: Coded Allergies: ASPIRIN (Unverified Allergy, Unknown, 01/16/20) IODINE (Verified Allergy, Unknown, 01/07/20) Uncoded Allergies: CONTRAST DYE (Allergy, Unknown, 01/07/20) All Systems: reviewed and negative except above 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 no chest pain or sob. no dizziness. upset that she "cant walk." refusing snf placements. taking iv pain meds ATC Objective Last 24 Hour Vital Signs Date Time Temp Pulse Resp B/P (MAP) Pulse Ox O2 Delivery O2 Flow Rate FiO2 02/27/20 11:30 96.8 81 20 151/81 (104) 96 02/27/20 08:13 70 156/82 02/27/20 08:13 70 156/82 02/27/20 08:00 72 02/27/20 08:00 Room Air 02/27/20 07:50 98.7 70 19 156/82 (106) 98 02/27/20 06:21 167/78 02/27/20 04:00 58 02/27/20 04:00 98.0 70 24 167/78 (107) 95 02/27/20 00:00 62 02/27/20 00:00 97.9 73 24 151/76 (101) 95 02/26/20 22:14 180/95 02/26/20 21:00 Room Air 02/26/20 20:23 91 180/95 02/26/20 20:00 72 02/26/20 20:00 98.0 70 24 185/88 (120) 98 02/26/20 16:00 61 02/26/20 16:00 98.5 73 21 159/78 (105) 98 02/26/20 14:02 76 169/76 02/26/20 14:02 169/76 02/26/20 12:40 180/86 Intake and Output 02/26/20 02/27/20 19:00 07:00 Intake Total 800 ml 650 ml Balance 800 ml 650 ml Intake Oral 800 ml 650 ml Laboratory Tests 02/27/20 08:10: White Blood Count 5.0, Red Blood Count 3.28L, Hemoglobin 9.8L, Hematocrit 30.7L , Mean Corpuscular Volume 94, Mean Corpuscular Hemoglobin 30.0, Mean Corpuscular Hemoglobin Concent 32.0, Red Cell Distribution Width 13.6, Platelet Count 139L, Mean Platelet Volume 6.1L, Neutrophils (%) (Auto) 67.2, Lymphocytes (%) (Auto) 17.7L, Monocytes (%) (Auto) 9.5, Eosinophils (%) (Auto) 4.8H, Basophils (%) (Auto) 0.9, Sodium Level 132L, Potassium Level 4.4, Chloride Level 97L, Carbon Dioxide Level 30, Anion Gap 5, Blood Urea Nitrogen 17, Creatinine 7.1H, Estimat Glomerular Filtration Rate 7.0, Glucose Level 85, Calcium Level 8.3L, Phosphorus Level 3.0, Total Bilirubin 0.5, Aspartate Amino Transf (AST/SGOT) 21, Alanine Aminotransferase (ALT/SGPT) 8L, Alkaline Phosphatase 70, Total Protein 7.8, Albumin 2.8L, Globulin 5.0, Albumin/Globulin Ratio 0.6L Height (Feet): 5 Height (Inches): 8.00 Weight (Pounds): 179 Objective General Appearance: WD/WN, lethargic EENT: PERRL/EOMI, normal ENT inspection Neck: non-tender, normal alignment Cardiovascular: normal peripheral pulses, normal rate, regular rhythm Respiratory/Chest: chest wall non-tender, lungs clear, normal breath sounds Abdomen: normal bowel sounds, non tender, soft, no organomegaly Extremities: normal range of motion Edema: no edema noted Arm (L), no edema noted Arm (R) 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
--- NOTE | 2020-02-27 14:23 | NUR ---
NURSE NOTES: Dr. Peralta updated with NA 132, no new orders.
--- NOTE | 2020-02-27 15:03 | NUR ---
PT Note Attempted to see patient for treatment x 2. Patient requested to be seen later on first time as she was about to eat her lunch. Attempted to see patient 1.5 hours later. Patient wants to rest and requested to defer PT today.
--- NOTE | 2020-02-27 19:11 | NUR ---
HAND-OFF: Report given to MARTIN Saavedra.
--- NOTE | 2020-02-27 19:31 | NUR ---
NURSE NOTES: RECEIVED PATIENT LYING IN BED, EYES CLOSED, APPEAR TO BE ASLEEP, AWAKENED TO NAME, CALM, NO COMPLAINTS OF BACK PAIN. IV INTACT TO LEFT FOREARM/GAUGE 20, NO REDNESS/SWELLING NOTED TO SITE. SINUS RHYTHM ON SHOPFITTER, NO SIGNS AND SYMPTOMS OF ACUTE CARDIO RESPIRATORY DISTRESS/SHORTNESS OF BREATH, NO EDEMA NOTED. NO COMPLAINTS OF GI DISCOMFORT, NO N/V/D. FALL PRECAUTIONS OBSERVED SECONDARY TO NARCOTIC USAGE; SIDE RAILS UP X3/BED IN LOWEST POSITION FOR SAFETY, ENCOURAGED PATIENT TO UTILIZE CALL LIGHT FOR ASSISTANCE, VERBALIZED UNDERSTANDING. CONTINUE WITH CURRENT PLAN OF CARE. NAD.
[2020-02-27] MEDS ORDERED: Carvedilol 25mg Tab ORAL SCH (21:00)
[2020-02-28] VITALS (8 sets, daily range): BP systolic 142–187; BP diastolic 66–99
--- NOTE | 2020-02-28 01:51 | Cardiology Progress Note ---
Subjective DATE OF SERVICE: Feb 26, 2020 Remains in sinus rhythm with arrhythmia No recurrent pauses. Meds adjusted yesterday - now off metoprolol and clonidine. Objective Last 24 Hour Vital Signs Date Time Temp Pulse Resp B/P (MAP) Pulse Ox O2 Delivery O2 Flow Rate FiO2 02/28/20 00:00 97.9 69 20 148/66 (93) 95 02/27/20 23:31 71 02/27/20 21:29 171/83 02/27/20 21:00 Room Air 02/27/20 20:35 77 175/85 02/27/20 20:00 98.0 69 20 183/91 (121) 94 02/27/20 19:48 71 02/27/20 16:00 75 02/27/20 16:00 97.8 73 21 119/71 (87) 98 02/27/20 13:57 151/81 02/27/20 13:56 64 13 156/69 (98) 96 02/27/20 11:30 81 02/27/20 11:30 96.8 81 20 151/81 (104) 96 02/27/20 08:13 70 156/82 02/27/20 08:13 70 156/82 02/27/20 08:00 72 02/27/20 08:00 Room Air 02/27/20 07:50 98.7 70 19 156/82 (106) 98 02/27/20 06:21 167/78 02/27/20 04:00 58 02/27/20 04:00 98.0 70 24 167/78 (107) 95 HEENT: normal ENT inspection RHYTHM: NSR, PVCs, PACs LUNGS: lungs clear bilaterally CARDIAC: regular rhythm, systolic murmur, gallop/S4, other - 1/6 systolic murmur at LLSB ABDOMEN: normal bowel sounds, non tender, soft, no organomegaly EXTREMITIES: non-tender, no calf tenderness, No edema Laboratory Tests Test 02/27/20 08:10 White Blood Count 5.0 K/UL (4.8-10.8) Red Blood Count 3.28 M/UL (4.20-5.40) L Hemoglobin 9.8 G/DL (12.0-16.0) L Hematocrit 30.7 % (37.0-47.0) L Mean Corpuscular Volume 94 FL (80-99) Mean Corpuscular Hemoglobin 30.0 PG (27.0-31.0) Mean Corpuscular Hemoglobin Concent 32.0 G/DL (32.0-36.0) Red Cell Distribution Width 13.6 % (11.6-14.8) Platelet Count 139 K/UL (150-450) L Mean Platelet Volume 6.1 FL (6.5-10.1) L Neutrophils (%) (Auto) 67.2 % (45.0-75.0) Lymphocytes (%) (Auto) 17.7 % (20.0-45.0) L Monocytes (%) (Auto) 9.5 % (1.0-10.0) Eosinophils (%) (Auto) 4.8 % (0.0-3.0) H Basophils (%) (Auto) 0.9 % (0.0-2.0) Sodium Level 132 MMOL/L (136-145) L Potassium Level 4.4 MMOL/L (3.5-5.1) Chloride Level 97 MMOL/L (98-107) L Carbon Dioxide Level 30 MMOL/L (21-32) Anion Gap 5 mmol/L (5-15) Blood Urea Nitrogen 17 mg/dL (7-18) Creatinine 7.1 MG/DL (0.55-1.30) H Estimat Glomerular Filtration Rate 7.0 mL/min (>60) Glucose Level 85 MG/DL (74-106) Calcium Level 8.3 MG/DL (8.5-10.1) L Phosphorus Level 3.0 MG/DL (2.5-4.9) Total Bilirubin 0.5 MG/DL (0.2-1.0) Aspartate Amino Transf (AST/SGOT) 21 U/L (15-37) Alanine Aminotransferase (ALT/SGPT) 8 U/L (12-78) L Alkaline Phosphatase 70 U/L (46-116) Total Protein 7.8 G/DL (6.4-8.2) Albumin 2.8 G/DL (3.4-5.0) L Globulin 5.0 g/dL Albumin/Globulin Ratio 0.6 (1.0-2.7) L Assessment/Plan Assessment/Plan Conduction system disease. Episode of asystole 3.5 sec, during sleep. Hypertension/HHD - malignant range Chronic diastolic CHF ESRD HIV + Hep C+ Anemia due to CKD and blood loss - s/p PRBC tx's. 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
[2020-02-28] MEDS: HYDROmorphone 1mg/ml Carpuject IVP PRN (01:54)
--- NOTE | 2020-02-28 01:55 | Cardiology Progress Note ---
Subjective DATE OF SERVICE: Feb 27, 2020 Remains in sinus rhythm with asymptomatic bradycardia and non-sustained arrhythmias - carvedilol restarted No recurrent pauses. Objective Last 24 Hour Vital Signs Date Time Temp Pulse Resp B/P (MAP) Pulse Ox O2 Delivery O2 Flow Rate FiO2 02/28/20 00:00 97.9 69 20 148/66 (93) 95 02/27/20 23:31 71 02/27/20 21:29 171/83 02/27/20 21:00 Room Air 02/27/20 20:35 77 175/85 02/27/20 20:00 98.0 69 20 183/91 (121) 94 02/27/20 19:48 71 02/27/20 16:00 75 02/27/20 16:00 97.8 73 21 119/71 (87) 98 02/27/20 13:57 151/81 02/27/20 13:56 64 13 156/69 (98) 96 02/27/20 11:30 81 02/27/20 11:30 96.8 81 20 151/81 (104) 96 02/27/20 08:13 70 156/82 02/27/20 08:13 70 156/82 02/27/20 08:00 72 02/27/20 08:00 Room Air 02/27/20 07:50 98.7 70 19 156/82 (106) 98 02/27/20 06:21 167/78 02/27/20 04:00 58 02/27/20 04:00 98.0 70 24 167/78 (107) 95 HEENT: normal ENT inspection RHYTHM: NSR, PVCs, PACs LUNGS: lungs clear bilaterally CARDIAC: regular rhythm, systolic murmur, gallop/S4, other - 1/6 systolic murmur at LLSB ABDOMEN: normal bowel sounds, non tender, soft, no organomegaly EXTREMITIES: non-tender, no calf tenderness, No edema Laboratory Tests Test 02/27/20 08:10 White Blood Count 5.0 K/UL (4.8-10.8) Red Blood Count 3.28 M/UL (4.20-5.40) L Hemoglobin 9.8 G/DL (12.0-16.0) L Hematocrit 30.7 % (37.0-47.0) L Mean Corpuscular Volume 94 FL (80-99) Mean Corpuscular Hemoglobin 30.0 PG (27.0-31.0) Mean Corpuscular Hemoglobin Concent 32.0 G/DL (32.0-36.0) Red Cell Distribution Width 13.6 % (11.6-14.8) Platelet Count 139 K/UL (150-450) L Mean Platelet Volume 6.1 FL (6.5-10.1) L Neutrophils (%) (Auto) 67.2 % (45.0-75.0) Lymphocytes (%) (Auto) 17.7 % (20.0-45.0) L Monocytes (%) (Auto) 9.5 % (1.0-10.0) Eosinophils (%) (Auto) 4.8 % (0.0-3.0) H Basophils (%) (Auto) 0.9 % (0.0-2.0) Sodium Level 132 MMOL/L (136-145) L Potassium Level 4.4 MMOL/L (3.5-5.1) Chloride Level 97 MMOL/L (98-107) L Carbon Dioxide Level 30 MMOL/L (21-32) Anion Gap 5 mmol/L (5-15) Blood Urea Nitrogen 17 mg/dL (7-18) Creatinine 7.1 MG/DL (0.55-1.30) H Estimat Glomerular Filtration Rate 7.0 mL/min (>60) Glucose Level 85 MG/DL (74-106) Calcium Level 8.3 MG/DL (8.5-10.1) L Phosphorus Level 3.0 MG/DL (2.5-4.9) Total Bilirubin 0.5 MG/DL (0.2-1.0) Aspartate Amino Transf (AST/SGOT) 21 U/L (15-37) Alanine Aminotransferase (ALT/SGPT) 8 U/L (12-78) L Alkaline Phosphatase 70 U/L (46-116) Total Protein 7.8 G/DL (6.4-8.2) Albumin 2.8 G/DL (3.4-5.0) L Globulin 5.0 g/dL Albumin/Globulin Ratio 0.6 (1.0-2.7) L Assessment/Plan Assessment/Plan Conduction system disease. Episode of asystole 3.5 sec, during sleep. Hypertension/HHD - malignant range Chronic diastolic CHF ESRD HIV + Hep C+ Anemia due to CKD and blood loss - s/p PRBC tx's. 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 Nam Barnett MD Feb 28, 2020 01:55
--- NOTE | 2020-02-28 02:18 | NUR ---
NURSE NOTES: RESTING WELL, NO SIGNS AND SYMPTOMS OF DISTRESS.
[2020-02-28] MEDS: DiphenhydrAMINE 50mg/ml Inj IVP PRN ×3 (03:12→18:01)
[2020-02-28] MEDS: HydrALAZINE 25mg tab ORAL SCH ×3 (05:50→21:00)
[2020-02-28] MEDS: HYDROcodone/Acetamin 5/325 tab ORAL PRN ×3 (05:51→18:00)
--- NOTE | 2020-02-28 06:25 | NUR ---
NURSE NOTES: RESTED WELL, NO SIGNIFICANT CHANGE OF CONDITION NOTED THROUGHOUT THE NIGHT. SAFETY MAINTAINED. NAD.
[2020-02-28 07:30] LABS: BASOPHILS % (AUTO) 1.7 % (0.0-2.0); EOSINOPHILS % (AUTO) 4.6 % (0.0-3.0); HEMOGLOBIN 9.8 G/DL (12.0-16.0); LYMPHOCYTES % (AUTO) 19.7 % (20.0-45.0); MEAN CORPUSCULAR VOLUME 93 FL (80-99); MONOCYTES % (AUTO) 9.8 % (1.0-10.0); NEUTROPHILS % (AUTO) 64.2 % (45.0-75.0); PLATELET COUNT 150 K/UL (150-450); RED BLOOD COUNT 3.22 M/UL (4.20-5.40); RED CELL DISTRIBUTION WIDTH 13.9 % (11.6-14.8)
--- NOTE | 2020-02-28 07:30 | NUR ---
NURSE NOTES: Received patient in bed awake. No SOB or acute distress. IV line intact. HOB elevated. Bed locked in lowest position. Call light within reach. Will continue plan of care.
[2020-02-28 07:57] LABS: ANION GAP 4 mmol/L (5-15); BLOOD UREA NITROGEN 25 mg/dL (7-18); CALCIUM 7.9 MG/DL (8.5-10.1); CARBON DIOXIDE 31 MMOL/L (21-32); CHLORIDE 95 MMOL/L (98-107); CREATININE 8.4 MG/DL (0.55-1.30); POTASSIUM 4.6 MMOL/L (3.5-5.1); SODIUM 130 MMOL/L (136-145)
[2020-02-28] MEDS: Docusate 100mg cap ORAL SCH ×3 (08:26→17:59)
[2020-02-28] MEDS: Renvela 800mg Pkt ORAL SCH ×3 (08:27→17:59)
--- NOTE | 2020-02-28 09:15 | Consultation ---
DATE OF CONSULTATION: 02/25/2020 CARDIAC ELECTROPHYSIOLOGY CONSULT. REASON FOR CONSULTATION: Consideration for permanent pacemaker. HISTORY OF PRESENT ILLNESS: The patient is a 69-year-old, woman with multiple chronic medical issues including hypertension, end-stage renal disease on hemodialysis, hepatitis C, HIV positive, paroxysmal atrial fibrillation, and depression. She was initially admitted on 02/09/2020 with an infected Bartholin cyst and underwent treatment with incision and drainage as well as antibiotics. She had positive blood cultures for Staph aureus and was felt to possibly have a dialysis catheter related infection. Dialysis catheter was removed and replaced. She was treated with intravenous antibiotics per Infectious Diseases. She had been monitored on telemetry and yesterday at about a 08:29 p.m. while awake she had bradycardia to the 40s followed by two consecutive 3 second pauses followed by resumption of normal sinus rhythm. She also had a pause this morning at 03:30 a.m. of approximately 2 to 2.5 seconds and Mobitz 1 second degree AV block at 3 a.m. this morning as well. She does not recall any symptoms of dizziness, lightheadedness, or syncope. She recalls one episode of dizziness at home in the past but does not recall the circumstances in which it occurred. MEDICATIONS: Synthroid 50 mcg daily, Renvela 1600 mg three times daily, hydralazine 10 mg IV q.4 hours p.r.n. for blood pressure over 160 systolic, Epogen 3000 units subcutaneously Friday, Friday, Friday, amlodipine 10 mg daily, Colace 100 mg p.o. t.i.d., folic acid 2 mg daily, Protonix 40 mg b.i.d., hydralazine 75 mg p.o. q. 8 hours, Dilaudid p.r.n., Tylenol p.r.n., Benadryl p.r.n., Zofran p.r.n. ALLERGIES: Aspirin, contrast dye. PAST MEDICAL HISTORY: As noted above. Also history of hypothyroidism. SOCIAL HISTORY: The patient does not currently smoke, drink alcohol, or use any drugs. She has a remote history of substance abuse. PHYSICAL EXAMINATION: VITAL SIGNS: Blood pressure is 164/74, pulse 62 regular, respirations 20, and afebrile. GENERAL: Alert elderly woman complaining of back pain, in mild distress. HEENT: Normocephalic atraumatic. Pupils are equal, round, and reactive to light. Sclerae anicteric. Oral mucosa moist. NECK: Supple. There is no jugular venous distention. No carotid bruits. CHEST: There is a tunneled hemodialysis catheter in the left chest wall. LUNGS: Clear to auscultation bilaterally. HEART: Regular rate and rhythm. S1, S2 with no murmur or S3. ABDOMEN: Soft, nontender, and nondistended. No palpable mass. EXTREMITIES: No cyanosis, clubbing, or edema. LABORATORY DATA: Hemoglobin 9.1, hematocrit 28.5, white blood count 4100, platelets 152,000. Sodium 136, potassium 4.3, chloride 99, bicarbonate 32, BUN 20, creatinine 7.2. TSH 5.79. EKG shows sinus rhythm, 65 beats per minute with sinus arrhythmia, low voltage QRS, axis +30 degrees, poor R-wave progression V1 to V3. Telemetry monitoring shows two sinus pauses of 3 seconds, consecutive at 8:29 p.m. and also short pauses at 3:39 2 to 2.5 seconds. She also had an episode of sinus tachycardia versus SVT on 02/25/2020 at 3:40 a.m., rate of 120 beats per minute, and on occasions of 02/12/2020 at 6:08 a.m., SVT rate of 150 is lasting 7 seconds. Chest x-ray from 02/22/2020 shows normal heart size, mild pulmonary vascular congestion, and a left tunneled hemodialysis catheter. ASSESSMENT AND RECOMMENDATIONS: The patient is a 69-year-old woman with multiple chronic medical problems as outlined above, who was admitted with an infected Bartholin cyst and Staph aureus bacteremia felt due to an infection of hemodialysis catheter. She has been treated for these infections and is currently off antibiotics. She has been noted to have a few short episodes of supraventricular tachyarrhythmia but recently has had episodes of bradycardia with pauses of 3 seconds during the day. She meets criteria for placement of a permanent pacemaker as she likely has significant sinus node disease with pauses of 3 seconds noted while awake. She had been on metoprolol and clonidine but these medications have been stopped as of 02/24/2020 morning. These may have been significant contributors to her bradycardia as the effects of metoprolol are potentiate it by clonidine. She also has an elevated TSH which may be due to hypothyroidism versus euthyroid sick syndrome. I would favor continuing telemetry monitoring. We will check thyroid function tests, free T4, and T3 uptake. We would continue off beta blockers and other negative chronotropic agents and remain off clonidine. If she has further pauses and no reversible causes found then would favor placement of a permanent pacemaker. Pacemaker placement would be difficult transvenously given the access issues with the recently removed infected right subclavian dialysis catheter and placement of the new left subclavian dialysis catheter. If the pacemaker were needed, she may be a candidate for the Micra leadless device. Prisca Coello M.D. DR: Elena JOB#: [id number] CC:
--- NOTE | 2020-02-28 10:08 | NUR ---
NURSE NOTES: Had an episode of extreme bradycardia this morning at 28, patient was asleep, easily aroused to name. Will continue to monitor.
--- NOTE | 2020-02-28 10:35 | Infectious Diseases Prog Note ---
"Assessment/Plan Assessment/Plan antibiotics : none A 1. staph aureus sepsis s/p catheter removal 2. bartholins cyst infection with proteus | enterococcus s/p drainage 3. Hypertension. 4. HIV. 5. Hepatitis C. 6. Renal failure. 7. COVID 19 negative PLAN: 1. observe off antibiotics Subjective ROS Limited/Unobtainable: Yes Allergies: Coded Allergies: ASPIRIN (Unverified Allergy, Unknown, 01/16/20) IODINE (Verified Allergy, Unknown, 01/07/20) Uncoded Allergies: CONTRAST DYE (Allergy, Unknown, 01/07/20) Objective Last 24 Hour Vital Signs Date Time Temp Pulse Resp B/P (MAP) Pulse Ox O2 Delivery O2 Flow Rate FiO2 02/28/20 09:00 Room Air 02/28/20 08:28 187/99 02/28/20 08:27 121 187/99 02/28/20 08:00 70 02/28/20 08:00 98.8 121 18 187/99 (128) 96 02/28/20 06:21 96.6 02/28/20 05:50 161/90 02/28/20 04:00 96.6 66 20 159/88 (111) 97 02/28/20 03:36 66 02/28/20 00:00 97.9 69 20 148/66 (93) 95 02/27/20 23:31 71 02/27/20 21:29 171/83 02/27/20 21:00 Room Air 02/27/20 20:35 77 175/85 02/27/20 20:00 98.0 69 20 183/91 (121) 94 02/27/20 19:48 71 02/27/20 16:00 75 02/27/20 16:00 97.8 73 21 119/71 (87) 98 02/27/20 13:57 151/81 02/27/20 13:56 64 13 156/69 (98) 96 02/27/20 11:30 81 02/27/20 11:30 96.8 81 20 151/81 (104) 96 Height (Feet): 5 Height (Inches): 8.00 Weight (Pounds): 179 Respiratory/Chest: lungs clear Cardiovascular: normal rate, regular rhythm, no gallop/murmur Abdomen: soft, non tender Extremities: no edema, other - left subclavian Laboratory Tests Test 02/28/20 06:17 White Blood Count 5.0 K/UL (4.8-10.8) Red Blood Count 3.22 M/UL (4.20-5.40) L Hemoglobin 9.8 G/DL (12.0-16.0) L Hematocrit 30.0 % (37.0-47.0) L Mean Corpuscular Volume 93 FL (80-99) Mean Corpuscular Hemoglobin 30.4 PG (27.0-31.0) Mean Corpuscular Hemoglobin Concent 32.6 G/DL (32.0-36.0) Red Cell Distribution Width 13.9 % (11.6-14.8) Platelet Count 150 K/UL (150-450) Mean Platelet Volume 6.1 FL (6.5-10.1) L Neutrophils (%) (Auto) 64.2 % (45.0-75.0) Lymphocytes (%) (Auto) 19.7 % (20.0-45.0) L Monocytes (%) (Auto) 9.8 % (1.0-10.0) Eosinophils (%) (Auto) 4.6 % (0.0-3.0) H Basophils (%) (Auto) 1.7 % (0.0-2.0) Sodium Level 130 MMOL/L (136-145) L Potassium Level 4.6 MMOL/L (3.5-5.1) Chloride Level 95 MMOL/L (98-107) L Carbon Dioxide Level 31 MMOL/L (21-32) Anion Gap 4 mmol/L (5-15) L Blood Urea Nitrogen 25 mg/dL (7-18) H Creatinine 8.4 MG/DL (0.55-1.30) H Estimat Glomerular Filtration Rate 5.7 mL/min (>60) Glucose Level 76 MG/DL (74-106) Calcium Level 7.9 MG/DL (8.5-10.1) L Current Medications Medications (Trade) Dose Ordered Sig/Rochelle Route PRN Reason Start Time Stop Time Status Last Admin Dose Admin Acetaminophen (Tylenol) 650 mg Q4H PRN ORAL Mild Pain (Pain Scale 1-3) 02/22/20 21:30 03/23/20 21:29 02/24/20 08:43 Acetaminophen/ Hydrocodone Bitart ([place] 5/325) 1 tab Q6H PRN ORAL For Pain 02/28/20 02:00 03/06/20 01:59 02/28/20 05:51 Amlodipine Besylate (Norvasc) 10 mg DAILY ORAL 02/23/20 09:00 03/11/20 08:59 02/28/20 08:27 Diazepam (Valium) 10 mg BIDPRN PRN ORAL For Anxiety 02/22/20 21:30 02/29/20 21:29 02/28/20 08:26 Diphenhydramine HCl (Benadryl) 25 mg Q6H PRN IVP Itching 02/22/20 21:30 03/23/20 21:29 02/28/20 09:15 Docusate Sodium (Colace) 100 mg TID ORAL 02/23/20 09:00 03/10/20 17:59 02/28/20 08:26 Epoetin Jose (Epoetin Jose(ESRD on dialysis)) 2,000 unit SUBQ 02/23/20 21:00 05/16/20 20:59 02/25/20 21:33 Epoetin Jose (Epoetin Jose(ESRD on dialysis)) 3,000 unit SUBQ 02/23/20 21:00 05/16/20 20:59 02/25/20 21:32 Folic Acid (Folate) 2 mg DAILY ORAL 02/23/20 09:00 03/11/20 09:59 02/28/20 08:27 Hydralazine HCl (Apresoline) 10 mg Q4H PRN IV BP over 160 systolic 02/25/20 15:15 05/25/20 15:14 02/28/20 08:28 Hydralazine HCl (Apresoline) 75 mg Q8HR ORAL 02/22/20 22:00 05/18/20 17:59 02/28/20 05:50 Levothyroxine Sodium (Synthroid) 50 mcg DAILY@0630 ORAL 02/26/20 06:30 03/27/20 06:29 02/28/20 05:51 Lidocaine HCl (Xylocaine Viscous) 15 ml Q4H PRN ORAL pain in mouth 02/23/20 09:30 05/23/20 09:29 02/23/20 15:36 Magnesium Hydroxide (Mom) 30 ml DAILYPRN PRN ORAL Constipation 02/22/20 21:30 03/23/20 21:29 Ondansetron HCl (Zofran) 4 mg Q6H PRN IV Nausea & Vomiting 02/22/20 21:30 03/23/20 21:29 Pantoprazole (Protonix) 40 mg BID ORAL 02/23/20 09:00 03/10/20 17:59 02/28/20 08:27 Sevelamer Carbonate (Renvela) 1,600 mg THREE TIMES A DAY ORAL 02/25/20 18:00 05/09/20 17:59 02/28/20 08:27 Elvis Garibay MD Feb 28, 2020 10:35"
--- NOTE | 2020-02-28 11:30 | Surgery Progress Note ---
Surgery Progress Note Subjective Procedure Performed removal of infected right chest wall tunneled hemodialysis catheter Additional Comments no acute events resting comfortable afebrile HD stable Objective Last 24 Hour Vital Signs Date Time Temp Pulse Resp B/P (MAP) Pulse Ox O2 Delivery O2 Flow Rate FiO2 02/28/20 09:00 Room Air 02/28/20 08:28 187/99 02/28/20 08:27 121 187/99 02/28/20 08:00 70 02/28/20 08:00 98.8 121 18 187/99 (128) 96 02/28/20 06:21 96.6 02/28/20 05:50 161/90 02/28/20 04:00 96.6 66 20 159/88 (111) 97 02/28/20 03:36 66 02/28/20 00:00 97.9 69 20 148/66 (93) 95 02/27/20 23:31 71 02/27/20 21:29 171/83 02/27/20 21:00 Room Air 02/27/20 20:35 77 175/85 02/27/20 20:00 98.0 69 20 183/91 (121) 94 02/27/20 19:48 71 02/27/20 16:00 75 02/27/20 16:00 97.8 73 21 119/71 (87) 98 02/27/20 13:57 151/81 02/27/20 13:56 64 13 156/69 (98) 96 02/27/20 11:30 81 02/27/20 11:30 96.8 81 20 151/81 (104) 96 I&O Intake and Output 02/27/20 02/28/20 19:00 07:00 Intake Total 1400 ml 840 ml Balance 1400 ml 840 ml Intake Oral 1400 ml 720 ml Other 120 ml # Voids 1 1 # Bowel Movements 1 1 Dressing: dry Wound: clean Cardiovascular: RSR Respiratory: clear Abdomen: soft, non-tender, present bowel sounds Extremities: no tenderness, no cyanosis Laboratory Tests Test 02/28/20 06:17 White Blood Count 5.0 K/UL (4.8-10.8) Red Blood Count 3.22 M/UL (4.20-5.40) L Hemoglobin 9.8 G/DL (12.0-16.0) L Hematocrit 30.0 % (37.0-47.0) L Mean Corpuscular Volume 93 FL (80-99) Mean Corpuscular Hemoglobin 30.4 PG (27.0-31.0) Mean Corpuscular Hemoglobin Concent 32.6 G/DL (32.0-36.0) Red Cell Distribution Width 13.9 % (11.6-14.8) Platelet Count 150 K/UL (150-450) Mean Platelet Volume 6.1 FL (6.5-10.1) L Neutrophils (%) (Auto) 64.2 % (45.0-75.0) Lymphocytes (%) (Auto) 19.7 % (20.0-45.0) L Monocytes (%) (Auto) 9.8 % (1.0-10.0) Eosinophils (%) (Auto) 4.6 % (0.0-3.0) H Basophils (%) (Auto) 1.7 % (0.0-2.0) Sodium Level 130 MMOL/L (136-145) L Potassium Level 4.6 MMOL/L (3.5-5.1) Chloride Level 95 MMOL/L (98-107) L Carbon Dioxide Level 31 MMOL/L (21-32) Anion Gap 4 mmol/L (5-15) L Blood Urea Nitrogen 25 mg/dL (7-18) H Creatinine 8.4 MG/DL (0.55-1.30) H Estimat Glomerular Filtration Rate 5.7 mL/min (>60) Glucose Level 76 MG/DL (74-106) Calcium Level 7.9 MG/DL (8.5-10.1) L Plan Problems: (1) Anemia (2) Bartholin's gland abscess Assessment & Plan: 69-year-old female Bartholin gland abscess cyst. Status post incision and drainage with drain placement. Drain currently in place and still draining. States that it feels better but continues to hurt. 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 Patient has a catheter in place unlikely infected. We will continue to monitor for local abscess drainage and improvement. Will monitor drain and manage drain accordingly. Okay for warm compress as needed. Pain management Rx written. Trend labs. Antibiotics per ID. May need repeat drainage if does not improve significantly. Thank you for letting participate in patient's care will follow recommendations anemia - transfuse prbc with HD Continue with catheter drainage functional doing well Discussed care plan with the patient Plan for outpatient [employer] follow-up on discharge. prbc with HD prn as per renal drain okay KUB in AM bowel regimen - constipated Drain has fallen out. Cellulitis is improved. Nontender no draining okay for drain to be out. Outpatient follow-up plan. Persistent fevers right tunneled 2-year-old permacath removed Discussed with medical team nephrology and radiology plan for new line placement this Friday new tunneled left chest wall cath placed for HD doing well comfortable d/c planning bleeding from right chest wall prior port site. hemostasis with dressings at bedside hold d/c suture placed stable labs noted okay cardiology input noted (3) Hypoglycemia (4) Vulval cellulitis Assessment & Plan: Stable improving (5) Missed dialysis (6) ESRD (end stage renal disease) on dialysis (7) Hyperkalemia (8) Substance abuse (9) HIV disease (10) HCV antibody positive (11) Weakness (12) Epileptic seizure, generalized (13) Laceration of right chest wall Assessment & Plan: Now hemostatic. Dressings intact. Suture okay. We will plan suture removal when appropriate. Deon Crowe Feb 28, 2020 11:30
--- NOTE | 2020-02-28 12:06 | NUR ---
RD ASSESSMENT & RECOMMENDATIONS SEE CARE ACTIVITY FOR COMPLETE ASSESSMENT DAILY ESTIMATED NEEDS: Needs based on ESRD on HD 67.4kg abw 30-35 kcals/kg 1185-3257 total kcals 1.2-1.8 g protein/kg 81-121 g total protein fluid per MD, on HD NUTRITION DIAGNOSIS: Increased kcal and pro needs r/t renal dysfunction and wound healing as evidenced by pt w/ esrd on HD, admitted w/ partial thickness wounds @ sacrum and lower L buttocks. CURRENT DIET:Renal PO DIET RECOMMENDATIONS: Maintain renal diet/ texture as sandra (monitor need for texture downgrade) ADDITIONAL RECOMMENDATIONS: 1) Obtain a standing scale wt as able or calibrated bed scale 2) Monitor for po intake and need for supplement -> Add NEPRO 1 tetra qdaily w/ variable intake at this time -> on valium, monitor PO intake, and BG POC 3) Trend Na, need for fluid restriction 4) Wound care: Nephrovite qdaily 5) Monitor PO tolerance, modified texture needs: c/o mouth pain
--- NOTE | 2020-02-28 12:14 | Nephrology Progress Note ---
Assessment/Plan Problem List: (1) ESRD (end stage renal disease) on dialysis (2) Hyperkalemia (3) Bartholin's gland abscess (4) Anemia (5) HCV antibody positive (6) HIV disease (7) Substance abuse Assessment Patient presents with hyperkalemia, anemia and 1 week of no dialysis Previous frequent chest pains. Anemia and evidence of upper GI bleed and [employer] in the past. Patient was on anticoagulation for atrial fibrillation however it is unclear how compliant the patient is. History of frequent hyperkalemia due to missing hemodialysis. End-stage renal disease on hemodialysis. The patient has a right chest permacath which is not dressed and appears to either be infected or very prone to infection. HIV disease. Substance abuse with previous urine test positive for narcotics and cocaine. History of hepatitis C virus. History of hypertensive kidney disease. Plan February 27: Due for dialysis today. Lab reviewed. Blood pressure stable. Discharge planning per PMD. February 26: Due for dialysis tomorrow February 27. Labs reviewed. Blood pressure is stable. February 25: Dialyzed yesterday. Transfused 2 February 23. Next dialysis is scheduled for February 27. Will check lab tomorrow. Add Coreg for better blood pressure control February 24: Due for dialysis today. Transfused yesterday. Blood pressure slightly elevated. Will adjust blood pressure medication. February 23: Dialyzed yesterday. Hemoglobin lower today. Will transfuse 1 unit of packed RBCs today. Dialyzed tomorrow. If stable can be discharged after dialysis tomorrow. February 22: Order dialysis for today. Lab reviewed. Blood pressure acceptable. Hemoglobin 8.1 February 21: Dialyzed yesterday. No labs drawn today. Blood pressure controlled. Will check lab tomorrow. February 20: Due for dialysis today. Labs reviewed. Blood pressure medication adjusted. Continue per consultants. February 19: Will order dialysis tomorrow February 20. Will check lab in a.m. Continue per consultants. February 18: Was dialyzed yesterday February 17. Has a new permacath over the left side of the chest. Patient also was transfused yesterday. Anemia improved. Next dialysis February 20Friday. February 17: Last dialysis was February 14. Patient due to have a permacath today and then arrange for dialysis and 2 units of blood transfusion afterwards. Discussed with RN. Labs reviewed. Expect correction of the chemistry panel after dialysis. February 16: Last dialysis February 14. Due for dialysis tomorrow February 17. Due for insertion of a permacath by IR tomorrow. The removed catheter on February 14 has a negative tip culture February 15: Patient last dialyzed February 14. Today's labs reviewed. Discussed with Dr. Crowe. The dialysis catheter was removed yesterday. New catheter will be placed on February 17. 2 sets of blood cultures ordered. Discussed with RN, and charge nurse. February 14: Patient was dialyzed yesterday. Today's labs reviewed. Discussed with PMD. The ID trousseau consultant suggest removal of the permacath due to infection. Will arrange for dialysis today. Will remove the permacath after dialysis today. Will reinsert a dialysis catheter 48 hours later. Discussed with RN. Orders in EMR. February 13: Due for dialysis today. Hemoglobin higher after transfusion. Continue per consultants. February 12: Next dialysis tomorrow on February 13. Hemoglobin remains low patient is due for another transfusion today. Continue per current treatment plan. February 11: Patient was dialyzed yesterday. Labs reviewed. Hemoglobin low. Due for transfusion. Next dialysis February 13, unless she needs it earlier. Medications are reviewed. Metoprolol dose increased. February 10: Patient due for dialysis today February 10. No labs drawn today. Will check renal parameters tomorrow. Continue per consultants. Patient anemic, transfusion is suggested. Patient dialyzed February 08, late night, for potassium of 7.4. Will give Kayexalate for high potassium as needed Adjust blood pressure medication. Folate supplement. Due for transfusion. Per orders. Subjective ROS Limited/Unobtainable: No Constitutional: Reports: malaise, weakness Objective Objective Last 24 Hour Vital Signs Date Time Temp Pulse Resp B/P (MAP) Pulse Ox O2 Delivery O2 Flow Rate FiO2 02/28/20 11:58 98.4 107 18 163/79 (107) 94 02/28/20 09:00 Room Air 02/28/20 08:28 187/99 02/28/20 08:27 121 187/99 02/28/20 08:00 70 02/28/20 08:00 98.8 121 18 187/99 (128) 96 02/28/20 06:21 96.6 02/28/20 05:50 161/90 02/28/20 04:00 96.6 66 20 159/88 (111) 97 02/28/20 03:36 66 02/28/20 00:00 97.9 69 20 148/66 (93) 95 02/27/20 23:31 71 02/27/20 21:29 171/83 02/27/20 21:00 Room Air 02/27/20 20:35 77 175/85 02/27/20 20:00 98.0 69 20 183/91 (121) 94 02/27/20 19:48 71 02/27/20 16:00 75 02/27/20 16:00 97.8 73 21 119/71 (87) 98 02/27/20 13:57 151/81 02/27/20 13:56 64 13 156/69 (98) 96 Intake and Output 02/27/20 02/28/20 19:00 07:00 Intake Total 1400 ml 840 ml Balance 1400 ml 840 ml Intake Oral 1400 ml 720 ml Other 120 ml # Voids 1 1 # Bowel Movements 1 1 Current Medications Medications (Trade) Dose Ordered Sig/Rochelle Route PRN Reason Start Time Stop Time Status Last Admin Dose Admin Acetaminophen (Tylenol) 650 mg Q4H PRN ORAL Mild Pain (Pain Scale 1-3) 02/22/20 21:30 03/23/20 21:29 02/24/20 08:43 Acetaminophen/ Hydrocodone Bitart ([place] 5/325) 1 tab Q6H PRN ORAL For Pain 02/28/20 02:00 03/06/20 01:59 02/28/20 05:51 Amlodipine Besylate (Norvasc) 10 mg DAILY ORAL 02/23/20 09:00 03/11/20 08:59 02/28/20 08:27 Diazepam (Valium) 10 mg BIDPRN PRN ORAL For Anxiety 02/22/20 21:30 02/29/20 21:29 02/28/20 08:26 Diphenhydramine HCl (Benadryl) 25 mg Q6H PRN IVP Itching 02/22/20 21:30 03/23/20 21:29 02/28/20 09:15 Docusate Sodium (Colace) 100 mg TID ORAL 02/23/20 09:00 03/10/20 17:59 02/28/20 08:26 Epoetin Jose (Epoetin Jose(ESRD on dialysis)) 2,000 unit SUBQ 02/23/20 21:00 05/16/20 20:59 02/25/20 21:33 Epoetin Jose (Epoetin Jose(ESRD on dialysis)) 3,000 unit SUBQ 02/23/20 21:00 05/16/20 20:59 02/25/20 21:32 Folic Acid (Folate) 2 mg DAILY ORAL 02/23/20 09:00 03/11/20 09:59 02/28/20 08:27 Hydralazine HCl (Apresoline) 10 mg Q4H PRN IV BP over 160 systolic 02/25/20 15:15 05/25/20 15:14 02/28/20 08:28 Hydralazine HCl (Apresoline) 75 mg Q8HR ORAL 02/22/20 22:00 05/18/20 17:59 02/28/20 05:50 Levothyroxine Sodium (Synthroid) 50 mcg DAILY@0630 ORAL 02/26/20 06:30 03/27/20 06:29 02/28/20 05:51 Lidocaine HCl (Xylocaine Viscous) 15 ml Q4H PRN ORAL pain in mouth 02/23/20 09:30 05/23/20 09:29 02/23/20 15:36 Magnesium Hydroxide (Mom) 30 ml DAILYPRN PRN ORAL Constipation 02/22/20 21:30 03/23/20 21:29 Ondansetron HCl (Zofran) 4 mg Q6H PRN IV Nausea & Vomiting 02/22/20 21:30 03/23/20 21:29 Pantoprazole (Protonix) 40 mg BID ORAL 02/23/20 09:00 03/10/20 17:59 02/28/20 08:27 Sevelamer Carbonate (Renvela) 1,600 mg THREE TIMES A DAY ORAL 02/25/20 18:00 05/09/20 17:59 02/28/20 08:27 Laboratory Tests 02/28/20 06:17: White Blood Count 5.0, Red Blood Count 3.22L, Hemoglobin 9.8L, Hematocrit 30.0L , Mean Corpuscular Volume 93, Mean Corpuscular Hemoglobin 30.4, Mean Corpuscular Hemoglobin Concent 32.6, Red Cell Distribution Width 13.9, Platelet Count 150, Mean Platelet Volume 6.1L, Neutrophils (%) (Auto) 64.2, Lymphocytes ( %) (Auto) 19.7L, Monocytes (%) (Auto) 9.8, Eosinophils (%) (Auto) 4.6H, Basophils (%) (Auto) 1.7, Sodium Level 130L, Potassium Level 4.6, Chloride Level 95L, Carbon Dioxide Level 31, Anion Gap 4L, Blood Urea Nitrogen 25H, Creatinine 8.4H, Estimat Glomerular Filtration Rate 5.7, Glucose Level 76, Calcium Level 7.9L Height (Feet): 5 Height (Inches): 8.00 Weight (Pounds): 179 General Appearance: no apparent distress Cardiovascular: normal rate Respiratory/Chest: decreased breath sounds Abdomen: soft Objective No change Jack Pryor MD Feb 28, 2020 12:14
--- NOTE | 2020-02-28 12:30 | NUR ---
NURSE NOTES: Dialysis started.
--- NOTE | 2020-02-28 13:29 | NUR ---
CASE MANAGEMENT:REVIEW SI;SEPSIS. BARTHOLINS CYST INFECTION W/PROTEUS. ESRD on HD. 98.9 121 18 187/99 94% ON RA NA 130 BUN 25 CR 8.4 IS;HYDRALAZINE IV NORVASC P O SYNTHROID PO PROTONIX PO TELEMETRY STATUS DCP;PATIENT IS FROM HOME
--- NOTE | 2020-02-28 15:25 | NUR ---
NURSE NOTES: Dialysis done, 2L out.
--- NOTE | 2020-02-28 17:28 | General Progress Note ---
Assessment/Plan Problem List: (1) Epileptic seizure, generalized ICD Codes: G40.309 - Generalized idiopathic epilepsy and epileptic syndromes, not intractable, without status epilepticus SNOMED: 35269301 (2) Weakness ICD Codes: R53.1 - Weakness SNOMED: 16934671 (3) HIV disease ICD Codes: B20 - Human immunodeficiency virus [HIV] disease SNOMED: 09153065 (4) Substance abuse ICD Codes: F19.10 - Other psychoactive substance abuse, uncomplicated SNOMED: 78088274 (5) Bartholin's gland abscess ICD Codes: N75.1 - Abscess of Bartholin's gland SNOMED: 65922549 (6) Hypoglycemia ICD Codes: E16.2 - Hypoglycemia, unspecified SNOMED: 194754822 Status: stable, unchanged Assessment/Plan: complete abx transfuse as needed monitor h/h pain rx HD per renal off b-blockers thyroid replacement hydralazine for htn ep and cardiology follow up may need pacemaker pt/ot eval dc when cleared by cards Subjective ROS Limited/Unobtainable: No Constitutional: Reports: malaise, weakness HEENT: Reports: no symptoms Cardiovascular: Reports: no symptoms Respiratory: Reports: no symptoms Gastrointestinal/Abdominal: Reports: no symptoms Genitourinary: Reports: no symptoms Neurologic/Psychiatric: Reports: no symptoms Endocrine: Reports: no symptoms Hematologic/Lymphatic: Reports: no symptoms Allergies: Coded Allergies: ASPIRIN (Unverified Allergy, Unknown, 01/16/20) IODINE (Verified Allergy, Unknown, 01/07/20) Uncoded Allergies: CONTRAST DYE (Allergy, Unknown, 01/07/20) All Systems: reviewed and negative except above Subjective upset that her dilaudid was discontinued. 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 has at least 1 3 second pause last night. no chest pain or sob. no dizziness. upset that she "cant walk." refusing snf placements- worried shell get covid at snf. taking pain meds ATC Objective Last 24 Hour Vital Signs Date Time Temp Pulse Resp B/P (MAP) Pulse Ox O2 Delivery O2 Flow Rate FiO2 02/28/20 16:00 98.8 67 18 164/84 (110) 95 02/28/20 12:00 71 02/28/20 11:58 98.4 107 18 163/79 (107) 94 02/28/20 09:00 Room Air 02/28/20 08:28 187/99 02/28/20 08:27 121 187/99 02/28/20 08:00 70 02/28/20 08:00 98.8 121 18 187/99 (128) 96 02/28/20 06:21 96.6 02/28/20 05:50 161/90 02/28/20 04:00 96.6 66 20 159/88 (111) 97 02/28/20 03:36 66 02/28/20 00:00 97.9 69 20 148/66 (93) 95 02/27/20 23:31 71 02/27/20 21:29 171/83 02/27/20 21:00 Room Air 02/27/20 20:35 77 175/85 02/27/20 20:00 98.0 69 20 183/91 (121) 94 02/27/20 19:48 71 Intake and Output 02/27/20 02/28/20 19:00 07:00 Intake Total 1400 ml 840 ml Balance 1400 ml 840 ml Intake Oral 1400 ml 720 ml Other 120 ml # Voids 1 1 # Bowel Movements 1 1 Laboratory Tests 02/28/20 06:17: White Blood Count 5.0, Red Blood Count 3.22L, Hemoglobin 9.8L, Hematocrit 30.0L , Mean Corpuscular Volume 93, Mean Corpuscular Hemoglobin 30.4, Mean Corpuscular Hemoglobin Concent 32.6, Red Cell Distribution Width 13.9, Platelet Count 150, Mean Platelet Volume 6.1L, Neutrophils (%) (Auto) 64.2, Lymphocytes ( %) (Auto) 19.7L, Monocytes (%) (Auto) 9.8, Eosinophils (%) (Auto) 4.6H, Basophils (%) (Auto) 1.7, Sodium Level 130L, Potassium Level 4.6, Chloride Level 95L, Carbon Dioxide Level 31, Anion Gap 4L, Blood Urea Nitrogen 25H, Creatinine 8.4H, Estimat Glomerular Filtration Rate 5.7, Glucose Level 76, Calcium Level 7.9L Height (Feet): 5 Height (Inches): 8.00 Weight (Pounds): 179 Objective General Appearance: WD/WN, lethargic EENT: PERRL/EOMI, normal ENT inspection Neck: non-tender, normal alignment Cardiovascular: normal peripheral pulses, normal rate, regular rhythm Respiratory/Chest: chest wall non-tender, lungs clear, normal breath sounds Abdomen: normal bowel sounds, non tender, soft, no organomegaly Extremities: normal range of motion Edema: no edema noted Arm (L), no edema noted Arm (R) 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
--- NOTE | 2020-02-28 19:19 | NUR ---
NURSE NOTES: Received report from Alexander URRUTIA, pt. in bed awake, Appears to be be A/O x's4- able to make needs known, no signs or symptoms of acute cardiac or respiratory distress noted, bed alarm on, side rails up x's 3 and safety brakes engaged, pt. appears to be sating well on 2L NC- no distress noted, pt. aware to ask for assist when ambulating-pt. acknowledges, LFA 20G IV- TKO, safety measures continued, will continue with plan of care. Addendum: 02/28/20 at 1934 by ASHA BILL RN RN pt. has HD access to left trans jugular area- dressing intact.
--- NOTE | 2020-02-28 19:37 | NUR ---
HAND-OFF: Report given to Nelli SALAZAR.
[2020-02-28] MEDS: Epoetin Alfa-EPBX(ESRD on dialysis)2000 units/ml vial SUBQ SCH (20:59)
[2020-02-28] MEDS: Epoetin Alfa-EPBX(ESRD on dialysis)3000 units/ml vial SUBQ SCH (20:59)
--- NOTE | 2020-02-28 23:51 | NUR ---
NURSE NOTES: Witnessed waste of Hydralazine 0.5 by MARTIN Dickinson, accidentally put waste in Pyxis as 1ml instead of 0.5- unable to correct.
--- NOTE | 2020-02-28 23:54 | Cardiology Progress Note ---
Subjective DATE OF SERVICE: Feb 28, 2020 Remains in sinus rhythm with asymptomatic bradycardic episodes and pauses well above 3 sec. Short lived episodes of SVT persist. Off carvedilol for 24hrs Objective Last 24 Hour Vital Signs Date Time Temp Pulse Resp B/P (MAP) Pulse Ox O2 Delivery O2 Flow Rate FiO2 02/28/20 22:30 73 142/69 (93) 02/28/20 21:00 165/77 02/28/20 21:00 Room Air 02/28/20 20:00 97.7 72 22 165/77 (106) 97 02/28/20 19:05 70 02/28/20 16:00 98.8 67 18 164/84 (110) 95 02/28/20 12:00 71 02/28/20 11:58 98.4 107 18 163/79 (107) 94 02/28/20 09:00 Room Air 02/28/20 08:28 187/99 02/28/20 08:27 121 187/99 02/28/20 08:00 70 02/28/20 08:00 98.8 121 18 187/99 (128) 96 02/28/20 06:21 96.6 02/28/20 05:50 161/90 02/28/20 04:00 96.6 66 20 159/88 (111) 97 02/28/20 03:36 66 02/28/20 00:00 97.9 69 20 148/66 (93) 95 HEENT: normal ENT inspection RHYTHM: NSR, PVCs, PACs LUNGS: lungs clear bilaterally CARDIAC: regular rhythm, systolic murmur, gallop/S4, other - 1/6 systolic murmur at LLSB ABDOMEN: normal bowel sounds, non tender, soft, no organomegaly EXTREMITIES: non-tender, no calf tenderness, No edema Laboratory Tests Test 02/28/20 06:17 White Blood Count 5.0 K/UL (4.8-10.8) Red Blood Count 3.22 M/UL (4.20-5.40) L Hemoglobin 9.8 G/DL (12.0-16.0) L Hematocrit 30.0 % (37.0-47.0) L Mean Corpuscular Volume 93 FL (80-99) Mean Corpuscular Hemoglobin 30.4 PG (27.0-31.0) Mean Corpuscular Hemoglobin Concent 32.6 G/DL (32.0-36.0) Red Cell Distribution Width 13.9 % (11.6-14.8) Platelet Count 150 K/UL (150-450) Mean Platelet Volume 6.1 FL (6.5-10.1) L Neutrophils (%) (Auto) 64.2 % (45.0-75.0) Lymphocytes (%) (Auto) 19.7 % (20.0-45.0) L Monocytes (%) (Auto) 9.8 % (1.0-10.0) Eosinophils (%) (Auto) 4.6 % (0.0-3.0) H Basophils (%) (Auto) 1.7 % (0.0-2.0) Sodium Level 130 MMOL/L (136-145) L Potassium Level 4.6 MMOL/L (3.5-5.1) Chloride Level 95 MMOL/L (98-107) L Carbon Dioxide Level 31 MMOL/L (21-32) Anion Gap 4 mmol/L (5-15) L Blood Urea Nitrogen 25 mg/dL (7-18) H Creatinine 8.4 MG/DL (0.55-1.30) H Estimat Glomerular Filtration Rate 5.7 mL/min (>60) Glucose Level 76 MG/DL (74-106) Calcium Level 7.9 MG/DL (8.5-10.1) L Assessment/Plan Assessment/Plan Conduction system disease. Episodes of asystole over 3.5 sec, during sleep. Hypertension/HHD - malignant range Chronic diastolic CHF ESRD HIV + Hep C+ Anemia due to CKD and blood loss - s/p PRBC tx's. 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 Nam Barnett MD Feb 28, 2020 23:54
[2020-02-29 01:18] VITALS: BP 152/81
[2020-02-29] MEDS: HYDROcodone/Acetamin 5/325 tab ORAL PRN ×3 (01:18→17:28)
[2020-02-29 04:00] VITALS: BP 169/81
[2020-02-29] MEDS: HydrALAZINE 25mg tab ORAL SCH ×3 (05:07→21:43)
--- NOTE | 2020-02-29 06:04 | NUR ---
NURSE NOTES: full bed bath given and linens changed- pt. able to turn self but needs staff assist to pull up in bed- pt. remains stable- will continue to monitor pt. and with plan of care.
--- NOTE | 2020-02-29 07:07 | NUR ---
HAND-OFF: Report given to Minda RN, pt. remains stable and no signs of distress noted- aware to f/u on any abnormal am labs.
[2020-02-29 08:00] VITALS: BP 174/75
--- NOTE | 2020-02-29 08:00 | NUR ---
NURSE NOTES: Received report from Marshall/RN, Observed patient awake, sitting in bed, On room air, No acute distress/SOB noted. Able to make needs known, Complains of back pain 5/10. IV on Left FA Patent. Left tunneled transjugular catheter for dialysis access, clean and intact. Bed in low position and locked, Call light within reach, Encouraged to use call light when needed. Will continue plan of care.
--- NOTE | 2020-02-29 08:53 | Cardiac Electrophysiology PN ---
Assessment/Plan Problem List: (1) Sick sinus syndrome (2) Hypertension (3) Substance abuse (4) HIV disease (5) HCV antibody positive (6) ESRD (end stage renal disease) on dialysis Status: stable, unchanged Status Narrative Bradyarrhythmia - Mrs Mahmood continues w/ pauses, some > 3 seconds, mainly at night but some during daytime hours. Pt fair historian - unclear if sx of dizziness in past were related to pauses. SVT - 130s, lasting 15 min yesterday. Difficult to treat SVT in setting of sinus pauses. HTN - BP elevated to 160-170s systolic . ESRD, on hemodialysis severe back pain - r/o osteomyelitis or spinal absces - negative CT Assessment/Plan I discussed permanent pacemaker placement w/ pt, as it will be difficult to treat SVT in setting of sinus pauses. She appears w/ intrinsic sinus node disease. We discussed leadless pacemaker, as she does not have upper extremity vascular access, due to previous infection of R sc HD catheter and new L HD catheter. She declines pacemaker placement at this time. Nature of procedure, indications, risks/benefits discussed. Would avoid b blockers unless sustained , symptomatic SVT, as would likely worsen sinus pauses. Evaluation for cause of back pain per primary team and ID. d/w pt. d/w RN Will see prn Subjective ROS Limited/Unobtainable: No Subjective Cardiac EP Pt c/o back pain and requests pain medication Events: Sinus pauses, to 3.3 seconds, most during the night, but some during daytime. Also short SVT runs Objective Last 24 Hour Vital Signs Date Time Temp Pulse Resp B/P (MAP) Pulse Ox O2 Delivery O2 Flow Rate FiO2 02/29/20 08:00 83 02/29/20 08:00 98.1 73 20 174/75 (108) 100 02/29/20 05:07 162/79 02/29/20 04:00 97.7 69 20 169/81 (110) 97 02/29/20 03:45 69 02/29/20 01:48 98.0 02/29/20 01:18 79 152/81 (104) 02/28/20 23:55 98.0 76 20 167/77 (107) 98 02/28/20 23:54 167/77 02/28/20 23:30 69 02/28/20 22:30 73 159/67 (97) 02/28/20 21:00 165/77 02/28/20 21:00 Room Air 02/28/20 20:00 97.7 72 22 165/77 (106) 97 02/28/20 19:05 70 02/28/20 16:00 98.8 67 18 164/84 (110) 95 02/28/20 12:00 71 02/28/20 11:58 98.4 107 18 163/79 (107) 94 02/28/20 09:00 Room Air General Appearance: WD/WN, alert, mild distress EENT: PERRL/EOMI Neck: supple, no JVD Rhythm: NSR Cardiovascular: normal rate, regular rhythm, systolic murmur - i/vi JOEY along LSB. no s3 Respiratory/Chest: lungs clear, other - clear anteriorly Abdomen: non tender, soft Extremities: non-tender, no swelling Neurologic: alert, oriented x 3 Intake and Output 02/28/20 02/29/20 19:00 07:00 Intake Total 150 ml Output Total 2000 ml Balance -1850 ml Intake Oral 150 ml Hemodialysis UF 2000 ml # Voids 1 Prisca Coello MD Feb 29, 2020 08:53
[2020-02-29] MEDS: Docusate 100mg cap ORAL SCH ×3 (09:12→17:27)
[2020-02-29] MEDS: Renvela 800mg Pkt ORAL SCH ×3 (09:13→17:27)
--- NOTE | 2020-02-29 10:14 | Nephrology Progress Note ---
Assessment/Plan Problem List: (1) ESRD (end stage renal disease) on dialysis (2) Hyperkalemia (3) Bartholin's gland abscess (4) Anemia (5) HCV antibody positive (6) HIV disease (7) Substance abuse Assessment Patient presents with hyperkalemia, anemia and 1 week of no dialysis Previous frequent chest pains. Anemia and evidence of upper GI bleed and [employer] in the past. Patient was on anticoagulation for atrial fibrillation however it is unclear how compliant the patient is. History of frequent hyperkalemia due to missing hemodialysis. End-stage renal disease on hemodialysis. The patient has a right chest permacath which is not dressed and appears to either be infected or very prone to infection. HIV disease. Substance abuse with previous urine test positive for narcotics and cocaine. History of hepatitis C virus. History of hypertensive kidney disease. Plan January 29: Dialyzed yesterday. Add clonidine patch for blood pressure. Hemodialysis tomorrow if in-house. February 27: Due for dialysis today. Lab reviewed. Blood pressure stable. Discharge planning per PMD. February 26: Due for dialysis tomorrow February 27. Labs reviewed. Blood pressure is stable. February 25: Dialyzed yesterday. Transfused 2 February 23. Next dialysis is scheduled for February 27. Will check lab tomorrow. Add Coreg for better blood pressure control February 24: Due for dialysis today. Transfused yesterday. Blood pressure slightly elevated. Will adjust blood pressure medication. February 23: Dialyzed yesterday. Hemoglobin lower today. Will transfuse 1 unit of packed RBCs today. Dialyzed tomorrow. If stable can be discharged after dialysis tomorrow. February 22: Order dialysis for today. Lab reviewed. Blood pressure acceptable. Hemoglobin 8.1 February 21: Dialyzed yesterday. No labs drawn today. Blood pressure controlled. Will check lab tomorrow. February 20: Due for dialysis today. Labs reviewed. Blood pressure medication adjusted. Continue per consultants. February 19: Will order dialysis tomorrow February 20. Will check lab in a.m. Continue per consultants. February 18: Was dialyzed yesterday February 17. Has a new permacath over the left side of the chest. Patient also was transfused yesterday. Anemia improved. Next dialysis February 20Friday. February 17: Last dialysis was February 14. Patient due to have a permacath today and then arrange for dialysis and 2 units of blood transfusion afterwards. Discussed with RN. Labs reviewed. Expect correction of the chemistry panel after dialysis. February 16: Last dialysis February 14. Due for dialysis tomorrow February 17. Due for insertion of a permacath by IR tomorrow. The removed catheter on February 14 has a negative tip culture February 15: Patient last dialyzed February 14. Today's labs reviewed. Discussed with Dr. Crowe. The dialysis catheter was removed yesterday. New catheter will be placed on February 17. 2 sets of blood cultures ordered. Discussed with RN, and charge nurse. February 14: Patient was dialyzed yesterday. Today's labs reviewed. Discussed with PMD. The ID portfolio consultant suggest removal of the permacath due to infection. Will arrange for dialysis today. Will remove the permacath after dialysis today. Will reinsert a dialysis catheter 48 hours later. Discussed with RN. Orders in EMR. February 13: Due for dialysis today. Hemoglobin higher after transfusion. Continue per consultants. February 12: Next dialysis tomorrow on February 13. Hemoglobin remains low patient is due for another transfusion today. Continue per current treatment plan. February 11: Patient was dialyzed yesterday. Labs reviewed. Hemoglobin low. Due for transfusion. Next dialysis February 13, unless she needs it earlier. Medications are reviewed. Metoprolol dose increased. February 10: Patient due for dialysis today February 10. No labs drawn today. Will check renal parameters tomorrow. Continue per consultants. Patient anemic, transfusion is suggested. Patient dialyzed February 08, late night, for potassium of 7.4. Will give Kayexalate for high potassium as needed Adjust blood pressure medication. Folate supplement. Due for transfusion. Per orders. Subjective ROS Limited/Unobtainable: No Constitutional: Reports: malaise Objective Objective Last 24 Hour Vital Signs Date Time Temp Pulse Resp B/P (MAP) Pulse Ox O2 Delivery O2 Flow Rate FiO2 02/29/20 09:13 174/75 02/29/20 09:12 83 174/75 02/29/20 08:00 83 02/29/20 08:00 98.1 73 20 174/75 (108) 100 02/29/20 05:07 162/79 02/29/20 04:00 97.7 69 20 169/81 (110) 97 02/29/20 03:45 69 02/29/20 01:48 98.0 02/29/20 01:18 79 152/81 (104) 02/28/20 23:55 98.0 76 20 167/77 (107) 98 02/28/20 23:54 167/77 02/28/20 23:30 69 02/28/20 22:30 73 159/67 (97) 02/28/20 21:00 165/77 02/28/20 21:00 Room Air 02/28/20 20:00 97.7 72 22 165/77 (106) 97 02/28/20 19:05 70 02/28/20 16:00 98.8 67 18 164/84 (110) 95 02/28/20 12:00 71 02/28/20 11:58 98.4 107 18 163/79 (107) 94 Intake and Output 02/28/20 02/29/20 19:00 07:00 Intake Total 150 ml Output Total 2000 ml Balance -1850 ml Intake Oral 150 ml Hemodialysis UF 2000 ml # Voids 1 Height (Feet): 5 Height (Inches): 8.00 Weight (Pounds): 179 General Appearance: no apparent distress Cardiovascular: normal rate Respiratory/Chest: decreased breath sounds Objective No change Jack Pryor MD Feb 29, 2020 10:14
--- NOTE | 2020-02-29 10:45 | Surgery Progress Note ---
Surgery Progress Note Subjective Procedure Performed removal of infected right chest wall tunneled hemodialysis catheter Additional Comments resting comfortable back discomfort no n/v/f/c Objective Last 24 Hour Vital Signs Date Time Temp Pulse Resp B/P (MAP) Pulse Ox O2 Delivery O2 Flow Rate FiO2 02/29/20 09:13 174/75 02/29/20 09:12 83 174/75 02/29/20 09:00 Room Air 02/29/20 08:00 83 02/29/20 08:00 98.1 73 20 174/75 (108) 100 02/29/20 05:07 162/79 02/29/20 04:00 97.7 69 20 169/81 (110) 97 02/29/20 03:45 69 02/29/20 01:48 98.0 02/29/20 01:18 79 152/81 (104) 02/28/20 23:55 98.0 76 20 167/77 (107) 98 02/28/20 23:54 167/77 02/28/20 23:30 69 02/28/20 22:30 73 159/67 (97) 02/28/20 21:00 165/77 02/28/20 21:00 Room Air 02/28/20 20:00 97.7 72 22 165/77 (106) 97 02/28/20 19:05 70 02/28/20 16:00 98.8 67 18 164/84 (110) 95 02/28/20 12:00 71 02/28/20 11:58 98.4 107 18 163/79 (107) 94 I&O Intake and Output 02/28/20 02/29/20 19:00 07:00 Intake Total 150 ml Output Total 2000 ml Balance -1850 ml Intake Oral 150 ml Hemodialysis UF 2000 ml # Voids 1 Dressing: dry Cardiovascular: RSR Respiratory: clear Abdomen: soft, non-tender, present bowel sounds Extremities: no edema, no tenderness, no cyanosis Plan Problems: (1) Anemia (2) Bartholin's gland abscess Assessment & Plan: 69-year-old female Bartholin gland abscess cyst. Status post incision and drainage with drain placement. Drain currently in place and still draining. States that it feels better but continues to hurt. Plan for hemodialysis initiated by tdp displays analyst. Patient has a catheter in place unlikely infected. We will continue to monitor for local abscess drainage and improvement. Will monitor drain and manage drain accordingly. Okay for warm compress as needed. Pain management Rx written. Trend labs. Antibiotics per ID. May need repeat drainage if does not improve significantly. Thank you for letting participate in patient's care will follow recommendations anemia - transfuse prbc with HD Continue with catheter drainage functional doing well Discussed care plan with the patient Plan for outpatient DEVELOPER ADVISOR follow-up on discharge. prbc with HD prn as per renal drain okay KUB in AM bowel regimen - constipated Drain has fallen out. Cellulitis is improved. Nontender no draining okay for drain to be out. Outpatient follow-up plan. Persistent fevers right tunneled 2-year-old permacath removed Discussed with medical team nephrology and radiology plan for new line placement this Friday new tunneled left chest wall cath placed for HD doing well comfortable d/c planning bleeding from right chest wall prior port site. hemostasis with dressings at bedside hold d/c suture placed stable labs noted okay cardiology input noted (3) Hypoglycemia (4) Vulval cellulitis Assessment & Plan: Stable improving (5) Missed dialysis (6) ESRD (end stage renal disease) on dialysis (7) Hyperkalemia (8) Substance abuse (9) HIV disease (10) HCV antibody positive (11) Weakness (12) Epileptic seizure, generalized (13) Laceration of right chest wall Assessment & Plan: Now hemostatic. Dressings intact. Suture okay. We will plan suture removal when appropriate. Deon rCowe Feb 29, 2020 10:45
--- NOTE | 2020-02-29 11:29 | NUR ---
NURSE NOTES: Called [facility], spoke with Licha, and scheduled HD for tomorrow
[2020-02-29 12:00] VITALS: BP 147/64
--- NOTE | 2020-02-29 14:46 | General Progress Note ---
Assessment/Plan Problem List: (1) Epileptic seizure, generalized ICD Codes: G40.309 - Generalized idiopathic epilepsy and epileptic syndromes, not intractable, without status epilepticus SNOMED: 49931072 (2) Weakness ICD Codes: R53.1 - Weakness SNOMED: 19727045 (3) HIV disease ICD Codes: B20 - Human immunodeficiency virus [HIV] disease SNOMED: 06067567 (4) Substance abuse ICD Codes: F19.10 - Other psychoactive substance abuse, uncomplicated SNOMED: 22803600 (5) Bartholin's gland abscess ICD Codes: N75.1 - Abscess of Bartholin's gland SNOMED: 81803675 (6) Hypoglycemia ICD Codes: E16.2 - Hypoglycemia, unspecified SNOMED: 196965509 Status: stable, unchanged Assessment/Plan: Continue current treatment monitor h/h transfuse as needed monitor h/h pain rx HD per renal off b-blockers thyroid replacement hydralazine for htn ep and cardiology follow up refusing pacemaker placement pt/ot eval dc when cleared by cards ?safe to discharge Subjective Constitutional: Reports: malaise, weakness HEENT: Reports: no symptoms Cardiovascular: Reports: no symptoms Respiratory: Reports: cough, shortness of breath Gastrointestinal/Abdominal: Reports: no symptoms Genitourinary: Reports: no symptoms Neurologic/Psychiatric: Reports: anxiety, depressed Endocrine: Reports: no symptoms Hematologic/Lymphatic: Reports: no symptoms Allergies: Coded Allergies: ASPIRIN (Unverified Allergy, Unknown, 01/16/20) IODINE (Verified Allergy, Unknown, 01/07/20) Uncoded Allergies: CONTRAST DYE (Allergy, Unknown, 01/07/20) All Systems: reviewed and negative except above Subjective There have been no overnight events. Patient continues to have episodes of sinus pauses lasting up to 3 seconds. Less frequent SVT. Complains of severe back pain. CT of the lumbar spine and cervical spine are unremarkable. Noted to have numerous mediastinal and supraclavicular lymph node. Cardiology and electrophysiology input appreciated. Objective Last 24 Hour Vital Signs Date Time Temp Pulse Resp B/P (MAP) Pulse Ox O2 Delivery O2 Flow Rate FiO2 02/29/20 12:46 147/64 02/29/20 12:00 98.2 68 20 147/64 (91) 100 02/29/20 12:00 65 02/29/20 09:13 174/75 02/29/20 09:12 83 174/75 02/29/20 09:00 Room Air 02/29/20 08:00 83 02/29/20 08:00 98.1 73 20 174/75 (108) 100 02/29/20 05:07 162/79 02/29/20 04:00 97.7 69 20 169/81 (110) 97 02/29/20 03:45 69 02/29/20 01:48 98.0 02/29/20 01:18 79 152/81 (104) 02/28/20 23:55 98.0 76 20 167/77 (107) 98 02/28/20 23:54 167/77 02/28/20 23:30 69 02/28/20 22:30 73 159/67 (97) 02/28/20 21:00 165/77 02/28/20 21:00 Room Air 02/28/20 20:00 97.7 72 22 165/77 (106) 97 02/28/20 19:05 70 02/28/20 16:00 98.8 67 18 164/84 (110) 95 Intake and Output 02/28/20 02/29/20 19:00 07:00 Intake Total 150 ml Output Total 2000 ml Balance -1850 ml Intake Oral 150 ml Hemodialysis UF 2000 ml # Voids 1 Height (Feet): 5 Height (Inches): 8.00 Weight (Pounds): 179 Objective General Appearance: WD/WN, lethargic EENT: PERRL/EOMI, normal ENT inspection Neck: non-tender, normal alignment Cardiovascular: normal peripheral pulses, normal rate, regular rhythm Respiratory/Chest: chest wall non-tender, lungs clear, normal breath sounds Abdomen: normal bowel sounds, non tender, soft, no organomegaly Extremities: normal range of motion Edema: no edema noted Arm (L), no edema noted Arm (R) Neurologic: chemists II-XII grossly normal, no motor/sensory deficits, abnormal gait , alert, oriented x 3, responsive Michael Peralta MD Feb 29, 2020 14:46
--- NOTE | 2020-02-29 15:36 | NUR ---
P.T Weekly Progress Notes: Pt is being this past week of skilled P.T services. Pt demonstrate slow however steady progress towards achieving mobility independence. Progress is limited by generalized pain , dizziness spells and decreased activity tolerance resulting to limited participation. Pt currently is independent in bed mobilities, CGA/SBA X 1 in transfer activities . Pt able to ambulate and tolerate average distance of 30 ft using the FWW with CGA/SBA X 1. Pt should continue to benefit from skilled P.T services to increase her strength and activity tolerance to increase her mobility independence and safety. Recommend SNF for further rehab intervention VS Home P.T. at [facility].
[2020-02-29 16:00] VITALS: BP 143/63
[2020-02-29] MEDS: DiphenhydrAMINE 50mg/ml Inj IVP PRN (17:34)
--- NOTE | 2020-02-29 19:40 | NUR ---
HAND-OFF: Report given to Mekhi/MARTIN, Patient is in stable condition. Endorsed plan of care.
--- NOTE | 2020-02-29 19:42 | NUR ---
NURSE NOTES: Received report from Mariola RN. Pt in stable condition. Denies any pain. Denies any n/v or SOB. Pt is fully oriented. Pt has L FA 20g slocked and L subclavian tunneled cath for HD access. Skin issues noted. air sampling and monitoring running Sinus Rhythm. Pt on room air sating 99%. Pt resting in bed comfortably. Bed in low and locked position, call light within reach, bedside table within reach. Continue to monitor.
[2020-02-29 20:00] VITALS: BP 155/88
[2020-03-01] VITALS: BP 144/79
[2020-03-01] MEDS: DiphenhydrAMINE 50mg/ml Inj IVP PRN ×2 (00:10→14:00)
--- NOTE | 2020-03-01 02:11 | Cardiology Progress Note ---
Subjective DATE OF SERVICE: Feb 29, 2020 Remains in sinus rhythm with asymptomatic bradycardic episodes and pauses well above 3 sec. Short lived episodes of SVT persists - also asymptomatic. Off carvedilol for over 48hrs. Objective Last 24 Hour Vital Signs Date Time Temp Pulse Resp B/P (MAP) Pulse Ox O2 Delivery O2 Flow Rate FiO2 03/01/20 00:00 71 03/01/20 00:00 97.9 100 18 144/79 (100) 98 02/29/20 21:52 97.8 02/29/20 21:43 155/88 02/29/20 21:00 Room Air 02/29/20 20:00 99.0 68 18 155/88 (110) 99 02/29/20 16:00 97.8 72 20 143/63 (89) 100 02/29/20 16:00 73 02/29/20 14:45 147/64 02/29/20 12:46 147/64 02/29/20 12:00 98.2 68 20 147/64 (91) 100 02/29/20 12:00 65 02/29/20 09:13 174/75 02/29/20 09:12 83 174/75 02/29/20 09:00 Room Air 02/29/20 08:00 83 02/29/20 08:00 98.1 73 20 174/75 (108) 100 02/29/20 05:07 162/79 02/29/20 04:00 97.7 69 20 169/81 (110) 97 02/29/20 03:45 69 HEENT: normal ENT inspection RHYTHM: NSR, PVCs, PACs LUNGS: lungs clear bilaterally CARDIAC: regular rhythm, systolic murmur, gallop/S4, other - 1/6 systolic murmur at LLSB ABDOMEN: normal bowel sounds, non tender, soft, no organomegaly EXTREMITIES: non-tender, no calf tenderness, No edema Assessment/Plan Assessment/Plan Conduction system disease. Episodes of asystole over 3.5 sec, during sleep. Tachy-alysa syndrome Hypertension/HHD - malignant range Chronic diastolic CHF ESRD HIV + Hep C+ Anemia due to CKD and blood loss - s/p PRBC tx's. 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 Nam Barnett MD Mar 01, 2020 02:11
[2020-03-01 04:00] VITALS: BP 150/74
[2020-03-01] MEDS: HydrALAZINE 25mg tab ORAL SCH ×3 (05:35→23:17)
[2020-03-01] MEDS: HYDROcodone/Acetamin 5/325 tab ORAL PRN ×3 (05:36→23:17)
[2020-03-01 07:14] LABS: ALANINE AMINOTRANSFERASE 8 U/L (12-78); ALBUMIN 2.7 G/DL (3.4-5.0); ALBUMIN/GLOBULIN RATIO 0.5 (1.0-2.7); ALKALINE PHOSPHATASE 68 U/L (46-116); ANION GAP 3 mmol/L (5-15); ASPARTATE AMINO TRANSFERASE 22 U/L (15-37); BILIRUBIN,TOTAL 0.4 MG/DL (0.2-1.0); BLOOD UREA NITROGEN 17 mg/dL (7-18); CALCIUM 8.1 MG/DL (8.5-10.1); CARBON DIOXIDE 34 MMOL/L (21-32); CHLORIDE 95 MMOL/L (98-107); CREATININE 7.6 MG/DL (0.55-1.30); PHOSPHORUS 3.3 MG/DL (2.5-4.9); POTASSIUM 3.7 MMOL/L (3.5-5.1); SODIUM 131 MMOL/L (136-145)
--- NOTE | 2020-03-01 07:20 | NUR ---
HAND-OFF: Report given to Marshall SALAZAR.
[2020-03-01 07:24] LABS: EOSINOPHILS % (AUTO) 3.8 % (0.0-3.0); HEMATOCRIT 29.5 % (37.0-47.0); LYMPHOCYTES % (AUTO) 20.7 % (20.0-45.0); MEAN CORPUSCULAR VOLUME 93 FL (80-99); NEUTROPHILS % (AUTO) 63.5 % (45.0-75.0); PLATELET COUNT 148 K/UL (150-450); RED BLOOD COUNT 3.16 M/UL (4.20-5.40); RED CELL DISTRIBUTION WIDTH 13.9 % (11.6-14.8); WHITE BLOOD COUNT 4.9 K/UL (4.8-10.8)
--- NOTE | 2020-03-01 07:30 | NUR ---
NURSE NOTES: Received patient and report from Kraig SALAZAR in bed complaining of pain 7/10 generalized. Patient was complaining of everything about her family, patient is a poor historian. Dr Deras was in the room attending to patient and continuously complaining about her pain, and the need for more pain medication. Dr. deras addressed the issue, patient still did not state understanding. IV on LFA is intact, patent, and SL. Bed is in lowest position with bedside rails up X2, brakes engaged for safety, call light is within reach All needs attended to and met. Will continue with the plan of care.
[2020-03-01 08:00] VITALS: BP 171/82
[2020-03-01] MEDS: Docusate 100mg cap ORAL SCH ×3 (09:08→17:59)
[2020-03-01] MEDS: Renvela 800mg Pkt ORAL SCH ×3 (09:08→18:00)
--- NOTE | 2020-03-01 10:38 | Infectious Diseases Prog Note ---
"Assessment/Plan Assessment/Plan antibiotics : none A 1. staph aureus sepsis s/p catheter removal 2. bartholins cyst infection with proteus | enterococcus s/p drainage 3. Hypertension. 4. HIV. 5. Hepatitis C. 6. Renal failure. 7. COVID 19 negative PLAN: 1. observe off antibiotics Subjective Constitutional: Denies: fever, chills Respiratory: Denies: shortness of breath, dry cough Gastrointestinal/Abdominal: Denies: nausea, vomiting, diarrhea Musculoskeletal: Reports: pain - back Allergies: Coded Allergies: ASPIRIN (Unverified Allergy, Unknown, 01/16/20) IODINE (Verified Allergy, Unknown, 01/07/20) Uncoded Allergies: CONTRAST DYE (Allergy, Unknown, 01/07/20) Objective Last 24 Hour Vital Signs Date Time Temp Pulse Resp B/P (MAP) Pulse Ox O2 Delivery O2 Flow Rate FiO2 03/01/20 09:09 171/82 03/01/20 09:08 69 171/82 03/01/20 09:00 Room Air 03/01/20 08:00 97.7 75 20 171/82 (111) 100 03/01/20 08:00 75 03/01/20 06:07 98.5 03/01/20 05:35 150/74 03/01/20 04:00 98.5 67 18 150/74 (99) 97 03/01/20 04:00 64 03/01/20 00:00 71 03/01/20 00:00 97.9 100 18 144/79 (100) 98 02/29/20 21:52 97.8 02/29/20 21:43 155/88 02/29/20 21:00 Room Air 02/29/20 20:00 99.0 68 18 155/88 (110) 99 02/29/20 20:00 108 02/29/20 16:00 97.8 72 20 143/63 (89) 100 02/29/20 16:00 73 02/29/20 14:45 147/64 02/29/20 12:46 147/64 02/29/20 12:00 98.2 68 20 147/64 (91) 100 02/29/20 12:00 65 Height (Feet): 5 Height (Inches): 8.00 Weight (Pounds): 181 Respiratory/Chest: lungs clear Cardiovascular: normal rate, regular rhythm Abdomen: soft, non tender Extremities: no edema, other - left subclavian Laboratory Tests Test 03/01/20 05:25 White Blood Count 4.9 K/UL (4.8-10.8) Red Blood Count 3.16 M/UL (4.20-5.40) L Hemoglobin 10.0 G/DL (12.0-16.0) L Hematocrit 29.5 % (37.0-47.0) L Mean Corpuscular Volume 93 FL (80-99) Mean Corpuscular Hemoglobin 31.5 PG (27.0-31.0) H Mean Corpuscular Hemoglobin Concent 33.8 G/DL (32.0-36.0) Red Cell Distribution Width 13.9 % (11.6-14.8) Platelet Count 148 K/UL (150-450) L Mean Platelet Volume 5.6 FL (6.5-10.1) L Neutrophils (%) (Auto) 63.5 % (45.0-75.0) Lymphocytes (%) (Auto) 20.7 % (20.0-45.0) Monocytes (%) (Auto) 11.0 % (1.0-10.0) H Eosinophils (%) (Auto) 3.8 % (0.0-3.0) H Basophils (%) (Auto) 1.0 % (0.0-2.0) Sodium Level 131 MMOL/L (136-145) L Potassium Level 3.7 MMOL/L (3.5-5.1) Chloride Level 95 MMOL/L (98-107) L Carbon Dioxide Level 34 MMOL/L (21-32) H Anion Gap 3 mmol/L (5-15) L Blood Urea Nitrogen 17 mg/dL (7-18) Creatinine 7.6 MG/DL (0.55-1.30) H Estimat Glomerular Filtration Rate 6.4 mL/min (>60) Glucose Level 79 MG/DL (74-106) Calcium Level 8.1 MG/DL (8.5-10.1) L Phosphorus Level 3.3 MG/DL (2.5-4.9) Magnesium Level 2.6 MG/DL (1.8-2.4) H Total Bilirubin 0.4 MG/DL (0.2-1.0) Aspartate Amino Transf (AST/SGOT) 22 U/L (15-37) Alanine Aminotransferase (ALT/SGPT) 8 U/L (12-78) L Alkaline Phosphatase 68 U/L (46-116) Total Protein 7.7 G/DL (6.4-8.2) Albumin 2.7 G/DL (3.4-5.0) L Globulin 5.0 g/dL Albumin/Globulin Ratio 0.5 (1.0-2.7) L Current Medications Medications (Trade) Dose Ordered Sig/Rochelle Route PRN Reason Start Time Stop Time Status Last Admin Dose Admin Acetaminophen (Tylenol) 650 mg Q4H PRN ORAL Mild Pain (Pain Scale 1-3) 02/22/20 21:30 03/23/20 21:29 02/29/20 21:21 Acetaminophen/ Hydrocodone Bitart ([facility] 5/325) 1 tab Q6H PRN ORAL For Pain 02/28/20 02:00 03/06/20 01:59 03/01/20 05:36 Amlodipine Besylate (Norvasc) 10 mg DAILY ORAL 02/23/20 09:00 03/11/20 08:59 03/01/20 09:08 Clonidine HCl (Catapres TTS-3) 1 patch QWEEK TDERMAL 02/29/20 12:00 05/29/20 11:59 02/29/20 12:46 Diphenhydramine HCl (Benadryl) 25 mg Q6H PRN IVP Itching 02/22/20 21:30 03/23/20 21:29 03/01/20 00:10 Docusate Sodium (Colace) 100 mg TID ORAL 02/23/20 09:00 03/10/20 17:59 03/01/20 09:08 Epoetin Jose (Epoetin Jose(ESRD on dialysis)) 2,000 unit -FRI SUBQ 02/23/20 21:00 05/16/20 20:59 02/28/20 20:59 Epoetin Jose (Epoetin Jose(ESRD on dialysis)) 3,000 unit SUBQ 02/23/20 21:00 05/16/20 20:59 02/28/20 20:59 Folic Acid (Folate) 2 mg DAILY ORAL 02/23/20 09:00 03/11/20 09:59 03/01/20 09:07 Hydralazine HCl (Apresoline) 10 mg Q4H PRN IV BP over 160 systolic 02/25/20 15:15 05/25/20 15:14 03/01/20 09:09 Hydralazine HCl (Apresoline) 75 mg Q8HR ORAL 02/29/20 14:00 05/18/20 17:59 03/01/20 05:35 Levothyroxine Sodium (Synthroid) 50 mcg DAILY@0630 ORAL 02/26/20 06:30 03/27/20 06:29 03/01/20 05:35 Lidocaine HCl (Xylocaine Viscous) 15 ml Q4H PRN ORAL pain in mouth 02/23/20 09:30 05/23/20 09:29 02/23/20 15:36 Magnesium Hydroxide (Mom) 30 ml DAILYPRN PRN ORAL Constipation 02/22/20 21:30 03/23/20 21:29 Ondansetron HCl (Zofran) 4 mg Q6H PRN IV Nausea & Vomiting 02/22/20 21:30 03/23/20 21:29 02/29/20 21:22 Pantoprazole (Protonix) 40 mg BID ORAL 02/23/20 09:00 03/10/20 17:59 03/01/20 09:07 Sevelamer Carbonate (Renvela) 1,600 mg THREE TIMES A DAY ORAL 02/25/20 18:00 05/09/20 17:59 03/01/20 09:08 Elvis Garibay MD Mar 01, 2020 10:38"
--- NOTE | 2020-03-01 11:30 | NUR ---
NURSE NOTES: Spoke to dialysis nurse from [facility] and states that she will be here by 1400. Will continue to monitor patient.
[2020-03-01 12:00] VITALS: BP 161/84
--- NOTE | 2020-03-01 13:04 | NUR ---
CASE MANAGEMENT:REVIEW SI;SEPSIS. BARTHOLINS CYST INFECTION W/PROTEUS. ESRD on HD. CARDIAC PAUSES >3 SECONDS. SVT. 98.5 75 20 171/82 97% ON RA NA 131 CL 95 CO2 34 MAG 2.6 ALB 2.7 IS;HYDRALAZINE PO Q8 SYNTHROID PO NORVASC PO PROTONIX PO BID BENADRYL IV NORCO PO TELEMETRY STATUS DCP;FROM HOME PLAN;INPATIENT HD TODAY DC HOME IF STABLE POST HD
--- NOTE | 2020-03-01 13:45 | Surgery Progress Note ---
Surgery Progress Note Subjective Procedure Performed removal of infected right chest wall tunneled hemodialysis catheter Symptoms: improved, tolerating diet, passing flatus, BM Objective Last 24 Hour Vital Signs Date Time Temp Pulse Resp B/P (MAP) Pulse Ox O2 Delivery O2 Flow Rate FiO2 03/01/20 12:00 74 03/01/20 12:00 97.7 74 20 161/84 (109) 100 03/01/20 09:09 171/82 03/01/20 09:08 69 171/82 03/01/20 09:00 Room Air 03/01/20 08:00 97.7 75 20 171/82 (111) 100 03/01/20 08:00 75 03/01/20 06:07 98.5 03/01/20 05:35 150/74 03/01/20 04:00 98.5 67 18 150/74 (99) 97 03/01/20 04:00 64 03/01/20 00:00 71 03/01/20 00:00 97.9 100 18 144/79 (100) 98 02/29/20 21:52 97.8 02/29/20 21:43 155/88 02/29/20 21:00 Room Air 02/29/20 20:00 99.0 68 18 155/88 (110) 99 02/29/20 20:00 108 02/29/20 16:00 97.8 72 20 143/63 (89) 100 02/29/20 16:00 73 02/29/20 14:45 147/64 I&O Intake and Output 02/29/20 03/01/20 19:00 07:00 Intake Total 400 ml Balance 400 ml Intake Oral 400 ml # Voids 1 1 Dressing: dry Wound: clean Cardiovascular: RSR Respiratory: clear Abdomen: soft, non-tender, present bowel sounds Extremities: no edema, no tenderness, no cyanosis Laboratory Tests Test 03/01/20 05:25 White Blood Count 4.9 K/UL (4.8-10.8) Red Blood Count 3.16 M/UL (4.20-5.40) L Hemoglobin 10.0 G/DL (12.0-16.0) L Hematocrit 29.5 % (37.0-47.0) L Mean Corpuscular Volume 93 FL (80-99) Mean Corpuscular Hemoglobin 31.5 PG (27.0-31.0) H Mean Corpuscular Hemoglobin Concent 33.8 G/DL (32.0-36.0) Red Cell Distribution Width 13.9 % (11.6-14.8) Platelet Count 148 K/UL (150-450) L Mean Platelet Volume 5.6 FL (6.5-10.1) L Neutrophils (%) (Auto) 63.5 % (45.0-75.0) Lymphocytes (%) (Auto) 20.7 % (20.0-45.0) Monocytes (%) (Auto) 11.0 % (1.0-10.0) H Eosinophils (%) (Auto) 3.8 % (0.0-3.0) H Basophils (%) (Auto) 1.0 % (0.0-2.0) Sodium Level 131 MMOL/L (136-145) L Potassium Level 3.7 MMOL/L (3.5-5.1) Chloride Level 95 MMOL/L (98-107) L Carbon Dioxide Level 34 MMOL/L (21-32) H Anion Gap 3 mmol/L (5-15) L Blood Urea Nitrogen 17 mg/dL (7-18) Creatinine 7.6 MG/DL (0.55-1.30) H Estimat Glomerular Filtration Rate 6.4 mL/min (>60) Glucose Level 79 MG/DL (74-106) Calcium Level 8.1 MG/DL (8.5-10.1) L Phosphorus Level 3.3 MG/DL (2.5-4.9) Magnesium Level 2.6 MG/DL (1.8-2.4) H Total Bilirubin 0.4 MG/DL (0.2-1.0) Aspartate Amino Transf (AST/SGOT) 22 U/L (15-37) Alanine Aminotransferase (ALT/SGPT) 8 U/L (12-78) L Alkaline Phosphatase 68 U/L (46-116) Total Protein 7.7 G/DL (6.4-8.2) Albumin 2.7 G/DL (3.4-5.0) L Globulin 5.0 g/dL Albumin/Globulin Ratio 0.5 (1.0-2.7) L Plan Problems: (1) Anemia (2) Bartholin's gland abscess Assessment & Plan: 69-year-old female Bartholin gland abscess cyst. Status post incision and drainage with drain placement. Drain currently in place and still draining. States that it feels better but continues to hurt. Plan for hemodialysis initiated by rug dyer helper. Patient has a catheter in place unlikely infected. We will continue to monitor for local abscess drainage and improvement. Will monitor drain and manage drain accordingly. Okay for warm compress as needed. Pain management Rx written. Trend labs. Antibiotics per ID. May need repeat drainage if does not improve significantly. Thank you for letting participate in patient's care will follow recommendations anemia - transfuse prbc with HD Continue with catheter drainage functional doing well Discussed care plan with the patient Plan for outpatient FARM MANAGEMENT AGENT follow-up on discharge. prbc with HD prn as per renal drain okay KUB in AM bowel regimen - constipated Drain has fallen out. Cellulitis is improved. Nontender no draining okay for drain to be out. Outpatient follow-up plan. Persistent fevers right tunneled 2-year-old permacath removed Discussed with medical team nephrology and radiology plan for new line placement this Friday new tunneled left chest wall cath placed for HD doing well comfortable d/c planning bleeding from right chest wall prior port site. hemostasis with dressings at bedside hold d/c suture placed stable labs noted okay cardiology input noted (3) Hypoglycemia (4) Vulval cellulitis Assessment & Plan: Stable improving (5) Missed dialysis (6) ESRD (end stage renal disease) on dialysis (7) Hyperkalemia (8) Substance abuse (9) HIV disease (10) HCV antibody positive (11) Weakness (12) Epileptic seizure, generalized (13) Laceration of right chest wall Assessment & Plan: Now hemostatic. Dressings intact. Suture okay. We will plan suture removal when appropriate. Deon Crowe Mar 01, 2020 13:45
--- NOTE | 2020-03-01 14:50 | Nephrology Progress Note ---
Assessment/Plan Problem List: (1) ESRD (end stage renal disease) on dialysis (2) Hyperkalemia (3) Bartholin's gland abscess (4) Anemia (5) HCV antibody positive (6) HIV disease (7) Substance abuse Assessment Patient presents with hyperkalemia, anemia and 1 week of no dialysis Previous frequent chest pains. Anemia and evidence of upper GI bleed and [employer] in the past. Patient was on anticoagulation for atrial fibrillation however it is unclear how compliant the patient is. History of frequent hyperkalemia due to missing hemodialysis. End-stage renal disease on hemodialysis. The patient has a right chest permacath which is not dressed and appears to either be infected or very prone to infection. HIV disease. Substance abuse with previous urine test positive for narcotics and cocaine. History of hepatitis C virus. History of hypertensive kidney disease. Plan January 30: Due for dialysis today. Plan to discharge after dialysis. Patient has spot at outpatient hemodialysis Friday. Discussed with case management. January 29: Dialyzed yesterday. Add clonidine patch for blood pressure. Hemodialysis tomorrow if in-house. February 27: Due for dialysis today. Lab reviewed. Blood pressure stable. Discharge planning per PMD. February 26: Due for dialysis tomorrow February 27. Labs reviewed. Blood pressure is stable. February 25: Dialyzed yesterday. Transfused 2 February 23. Next dialysis is scheduled for February 27. Will check lab tomorrow. Add Coreg for better blood pressure control February 24: Due for dialysis today. Transfused yesterday. Blood pressure slightly elevated. Will adjust blood pressure medication. February 23: Dialyzed yesterday. Hemoglobin lower today. Will transfuse 1 unit of packed RBCs today. Dialyzed tomorrow. If stable can be discharged after dialysis tomorrow. February 22: Order dialysis for today. Lab reviewed. Blood pressure acceptable. Hemoglobin 8.1 February 21: Dialyzed yesterday. No labs drawn today. Blood pressure controlled. Will check lab tomorrow. February 20: Due for dialysis today. Labs reviewed. Blood pressure medication adjusted. Continue per consultants. February 19: Will order dialysis tomorrow February 20. Will check lab in a.m. Continue per consultants. February 18: Was dialyzed yesterday February 17. Has a new permacath over the left side of the chest. Patient also was transfused yesterday. Anemia improved. Next dialysis February 20Friday. February 17: Last dialysis was February 14. Patient due to have a permacath today and then arrange for dialysis and 2 units of blood transfusion afterwards. Discussed with RN. Labs reviewed. Expect correction of the chemistry panel after dialysis. February 16: Last dialysis February 14. Due for dialysis tomorrow February 17. Due for insertion of a permacath by IR tomorrow. The removed catheter on February 14 has a negative tip culture February 15: Patient last dialyzed February 14. Today's labs reviewed. Discussed with Dr. Crowe. The dialysis catheter was removed yesterday. New catheter will be placed on February 17. 2 sets of blood cultures ordered. Discussed with RN, and charge nurse. February 14: Patient was dialyzed yesterday. Today's labs reviewed. Discussed with PMD. The ID life skills consultant suggest removal of the permacath due to infection. Will arrange for dialysis today. Will remove the permacath after dialysis today. Will reinsert a dialysis catheter 48 hours later. Discussed with RN. Orders in EMR. February 13: Due for dialysis today. Hemoglobin higher after transfusion. Continue per consultants. February 12: Next dialysis tomorrow on February 13. Hemoglobin remains low patient is due for another transfusion today. Continue per current treatment plan. February 11: Patient was dialyzed yesterday. Labs reviewed. Hemoglobin low. Due for transfusion. Next dialysis Friday, February 13, unless she needs it earlier. Medications are reviewed. Metoprolol dose increased. February 10: Patient due for dialysis today February 10. No labs drawn today. Will check renal parameters tomorrow. Continue per consultants. Patient anemic, transfusion is suggested. Patient dialyzed February 08, late night, for potassium of 7.4. Will give Kayexalate for high potassium as needed Adjust blood pressure medication. Folate supplement. Due for transfusion. Per orders. Subjective ROS Limited/Unobtainable: No Constitutional: Reports: malaise - Money to buy cocaine money to pay for discharge Objective Objective Last 24 Hour Vital Signs Date Time Temp Pulse Resp B/P (MAP) Pulse Ox O2 Delivery O2 Flow Rate FiO2 03/01/20 13:58 161/84 03/01/20 12:00 74 03/01/20 12:00 97.7 74 20 161/84 (109) 100 03/01/20 09:09 171/82 03/01/20 09:08 69 171/82 03/01/20 09:00 Room Air 03/01/20 08:00 97.7 75 20 171/82 (111) 100 03/01/20 08:00 75 03/01/20 06:07 98.5 03/01/20 05:35 150/74 03/01/20 04:00 98.5 67 18 150/74 (99) 97 03/01/20 04:00 64 03/01/20 00:00 71 03/01/20 00:00 97.9 100 18 144/79 (100) 98 02/29/20 21:52 97.8 02/29/20 21:43 155/88 02/29/20 21:00 Room Air 02/29/20 20:00 99.0 68 18 155/88 (110) 99 02/29/20 20:00 108 02/29/20 16:00 97.8 72 20 143/63 (89) 100 02/29/20 16:00 73 Intake and Output 02/29/20 03/01/20 19:00 07:00 Intake Total 400 ml Balance 400 ml Intake Oral 400 ml # Voids 1 1 Laboratory Tests 03/01/20 05:25: White Blood Count 4.9, Red Blood Count 3.16L, Hemoglobin 10.0L, Hematocrit 29.5L , Mean Corpuscular Volume 93, Mean Corpuscular Hemoglobin 31.5H, Mean Corpuscular Hemoglobin Concent 33.8, Red Cell Distribution Width 13.9, Platelet Count 148L, Mean Platelet Volume 5.6L, Neutrophils (%) (Auto) 63.5, Lymphocytes (%) (Auto) 20.7, Monocytes (%) (Auto) 11.0H, Eosinophils (%) (Auto) 3.8H, Basophils (%) (Auto) 1.0, Sodium Level 131L, Potassium Level 3.7, Chloride Level 95L, Carbon Dioxide Level 34H, Anion Gap 3L, Blood Urea Nitrogen 17, Creatinine 7.6H, Estimat Glomerular Filtration Rate 6.4, Glucose Level 79, Calcium Level 8.1L, Phosphorus Level 3.3, Magnesium Level 2.6H, Total Bilirubin 0.4, Aspartate Amino Transf (AST/SGOT) 22, Alanine Aminotransferase (ALT/SGPT) 8L, Alkaline Phosphatase 68, Total Protein 7.7, Albumin 2.7L, Globulin 5.0, Albumin/Globulin Ratio 0.5L Height (Feet): 5 Height (Inches): 8.00 Weight (Pounds): 181 General Appearance: no apparent distress Cardiovascular: normal rate Respiratory/Chest: decreased breath sounds Abdomen: distended - Regular Objective No change Jack Pryor MD Mar 01, 2020 14:50
--- NOTE | 2020-03-01 15:00 | NUR ---
NURSE NOTES: Spoke to Samanta BLUE in regards to patient dialysis and the discharge planning. Patient has not been dialyzed yet, per dialysis nurse from [facility], she states that she is OM ICU and that she will be in patient's room on TELE to start dialysis at 19:30. Will continue to monitor patient and continue with the plan of care.
[2020-03-01 16:00] VITALS: BP 156/75
--- NOTE | 2020-03-01 16:58 | NUR ---
ASSISTANT BASKETBALL COACH NOTE PER JEREMY RN, PATIENT WAS SCHEDULED FOR HD TODAY AT 1400 PER [facility] NURSE PHILOMENA. FOLLOW UP WITH [facility] PLAN WAS FOR PATIENT TO DC HOME AFTER HD TODAY. PER JEREMY, SHE WILL CALL [facility] TO INQUIRE ON THE DELAY OF SERVICE AND F/U WITH CM.
--- NOTE | 2020-03-01 18:00 | Discharge Summary ---
DATE OF ADMISSION: 02/09/2020 DATE OF DISCHARGE: 03/01/2020 ADMISSION DIAGNOSES: 1. End-stage renal disease on chronic hemodialysis. 2. CHF exacerbation. 3. Hypertension. 4. Bartholin's cyst abscess status post I and D. 5. HIV. 6. Paroxysmal atrial fibrillation. 7. Hypertension. 8. Congestive heart failure. 9. Depression. 10. Chronic anemia. DISCHARGE DIAGNOSES: 1. End-stage renal disease on chronic hemodialysis. 2. CHF exacerbation. 3. Hypertension. 4. Bartholin's cyst abscess status post I and D. 5. HIV. 6. Paroxysmal atrial fibrillation. 7. Hypertension. 8. Congestive heart failure. 9. Depression. 10. Chronic anemia. HOSPITAL COURSE: The patient was initially admitted with complaints of shortness of breath, volume overload secondary to missed dialysis. She was hemodialyzed. Her cardiac regimen was adjusted. She had an I and D of a Bartholin's cyst surgically and evaluation was obtained and no additional treatment was recommended. She received transfusion for anemia. Her hemoglobin did stabilize. Her hospital course was complicated by bacteremia. Her dialysis catheter was removed for 48 hours and new one was placed . ID was consult. The patient completed a full course of IV vancomycin for line infection. The patient continued on hemodialysis via her new line without any problems. She later became bradycardic. Her beta-lamar was discontinued. She was noted to be mildly hypothyroid and started on thyroid replacement therapy. On discharge, the patient was stable. It was recommended that she undergo a pacemaker placement, but she refused. She was aware of the risk of syncope and potentially even , but she was adamantly refusing pacemaker placement. She will be discharged home with home health. It was recommended that she go to a [facility] facility but she adamantly refused home health to be arranged for the patient. DISCHARGE MEDICATIONS: Please see discharge medication list for discharge medications. DIET: Cardiac renal diet. ACTIVITY: Ad-arie. FOLLOWUP: The patient to followup in one to two weeks in the office. Michael Peralta M.D. DR: Yasmeen JOB#: [id number] CC:
--- NOTE | 2020-03-01 19:05 | NUR ---
HAND-OFF: Report given to Kraig SALAZAR. Patient is in stable condition.
--- NOTE | 2020-03-01 19:10 | NUR ---
NURSE NOTES: Received report from Marshall SALAZAR. Pt in stable condition. Denies any pain. Denies any n/v or SOB. Pt is fully oriented. Pt has L FA 20g slocked and L subclavian tunneled cath for HD access. Skin issues noted. electronic device monitor running Sinus Rhythm. Pt on room air sating 99%. Pt getting dialysis tonight. Pt resting in bed comfortably. Bed in low and locked position, call light within reach, bedside table within reach. Continue to monitor.
[2020-03-01 20:00] VITALS: BP 160/82
--- NOTE | 2020-03-01 20:00 | NUR ---
NURSE NOTES: Dialysis nurse in room. Pt getting dialysis. Pt in stable condition. Continue to monitor.
--- NOTE | 2020-03-01 22:45 | NUR ---
NURSE NOTES: Dialysis finished 2L out. Pt in stable condition. Continue to monitor.
[2020-03-01] MEDS: Epoetin Alfa-EPBX(ESRD on dialysis)2000 units/ml vial SUBQ SCH (23:17)
[2020-03-01] MEDS: Epoetin Alfa-EPBX(ESRD on dialysis)3000 units/ml vial SUBQ SCH (23:17)
[2020-03-02] VITALS: BP 156/70
--- NOTE | 2020-03-02 01:53 | Cardiology Progress Note ---
Subjective DATE OF SERVICE: Mar 01, 2020 Remains in sinus rhythm with asymptomatic bradycardic episodes and pauses well above 3 sec over past several days. Short lived episodes of SVT also noted - asymptomatic. Dialysis session today was delayed, and discharge postponed as a result. Objective Last 24 Hour Vital Signs Date Time Temp Pulse Resp B/P (MAP) Pulse Ox O2 Delivery O2 Flow Rate FiO2 03/02/20 00:00 99.3 74 19 156/70 (98) 95 03/02/20 00:00 74 03/01/20 23:48 98.8 03/01/20 23:17 160/82 03/01/20 21:00 Room Air 03/01/20 20:00 71 03/01/20 20:00 98.8 65 20 160/82 (108) 96 03/01/20 16:00 98.0 74 20 156/75 (102) 100 03/01/20 16:00 74 03/01/20 13:58 161/84 03/01/20 12:00 74 03/01/20 12:00 97.7 74 20 161/84 (109) 100 03/01/20 09:09 171/82 03/01/20 09:08 69 171/82 03/01/20 09:00 Room Air 03/01/20 08:00 97.7 75 20 171/82 (111) 100 03/01/20 08:00 75 03/01/20 05:35 150/74 03/01/20 04:00 98.5 67 18 150/74 (99) 97 03/01/20 04:00 64 HEENT: normal ENT inspection RHYTHM: NSR, PVCs, PACs LUNGS: lungs clear bilaterally, other - left subclavian dialysis catheter CARDIAC: regular rhythm, systolic murmur, gallop/S4, other - 1/6 systolic murmur at LLSB ABDOMEN: normal bowel sounds, non tender, soft, no organomegaly EXTREMITIES: non-tender, no calf tenderness, No edema Laboratory Tests Test 03/01/20 05:25 White Blood Count 4.9 K/UL (4.8-10.8) Red Blood Count 3.16 M/UL (4.20-5.40) L Hemoglobin 10.0 G/DL (12.0-16.0) L Hematocrit 29.5 % (37.0-47.0) L Mean Corpuscular Volume 93 FL (80-99) Mean Corpuscular Hemoglobin 31.5 PG (27.0-31.0) H Mean Corpuscular Hemoglobin Concent 33.8 G/DL (32.0-36.0) Red Cell Distribution Width 13.9 % (11.6-14.8) Platelet Count 148 K/UL (150-450) L Mean Platelet Volume 5.6 FL (6.5-10.1) L Neutrophils (%) (Auto) 63.5 % (45.0-75.0) Lymphocytes (%) (Auto) 20.7 % (20.0-45.0) Monocytes (%) (Auto) 11.0 % (1.0-10.0) H Eosinophils (%) (Auto) 3.8 % (0.0-3.0) H Basophils (%) (Auto) 1.0 % (0.0-2.0) Sodium Level 131 MMOL/L (136-145) L Potassium Level 3.7 MMOL/L (3.5-5.1) Chloride Level 95 MMOL/L (98-107) L Carbon Dioxide Level 34 MMOL/L (21-32) H Anion Gap 3 mmol/L (5-15) L Blood Urea Nitrogen 17 mg/dL (7-18) Creatinine 7.6 MG/DL (0.55-1.30) H Estimat Glomerular Filtration Rate 6.4 mL/min (>60) Glucose Level 79 MG/DL (74-106) Calcium Level 8.1 MG/DL (8.5-10.1) L Phosphorus Level 3.3 MG/DL (2.5-4.9) Magnesium Level 2.6 MG/DL (1.8-2.4) H Total Bilirubin 0.4 MG/DL (0.2-1.0) Aspartate Amino Transf (AST/SGOT) 22 U/L (15-37) Alanine Aminotransferase (ALT/SGPT) 8 U/L (12-78) L Alkaline Phosphatase 68 U/L (46-116) Total Protein 7.7 G/DL (6.4-8.2) Albumin 2.7 G/DL (3.4-5.0) L Globulin 5.0 g/dL Albumin/Globulin Ratio 0.5 (1.0-2.7) L Assessment/Plan Assessment/Plan Conduction system disease. Episodes of asystole over 3.5 sec, during sleep. Tachy-alysa syndrome Hypertension/HHD - malignant range at times Chronic diastolic CHF ESRD HIV + Hep C+ Anemia due to CKD and blood loss - s/p PRBC tx's. Cocaine abuse - chronic Hypothyroidism Paroxysmal SVT Narcotic/analgesic dependence Titrate hydralazine; additional dosing prn for BP spikes. 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 DC plan tomorrow Nam Barnett MD Mar 02, 2020 01:53
[2020-03-02 04:00] VITALS: BP 150/72
[2020-03-02] MEDS: HydrALAZINE 25mg tab ORAL SCH (05:59)
--- NOTE | 2020-03-02 07:28 | NUR ---
HAND-OFF: Report given to Gera SALAZAR.
--- NOTE | 2020-03-02 07:30 | NUR ---
NURSE NOTES: Received pt from [employer], pt is awake and alert, pt is in RA, no SOB or acute respiratory distress noted, pt is on continues heart monitoring, pt is eating breakfast by observation. pt has intact iv access LFA 20g SL. all needs attended, bed is locked and is in the lowest position, call light within easy reach, will continue to monitor.
[2020-03-02 07:53] VITALS: BP 167/77
[2020-03-02] MEDS: Docusate 100mg cap ORAL SCH ×2 (08:12→12:43)
[2020-03-02] MEDS: Renvela 800mg Pkt ORAL SCH ×2 (08:12→12:43)
[2020-03-02] MEDS: DiphenhydrAMINE 50mg/ml Inj IVP PRN (08:12)
[2020-03-02] MEDS: HYDROcodone/Acetamin 5/325 tab ORAL PRN (08:12)
--- NOTE | 2020-03-02 08:13 | NUR ---
NURSE NOTES: 10mg hydralazine is wasted in med room.
[2020-03-02] MEDS ORDERED: ATIVAN1 MG ORAL (08:50)
[2020-03-02] MEDS ORDERED: NORCO 10-325 T1 EACH ORAL (08:50)
--- NOTE | 2020-03-02 09:32 | NUR ---
*-*DISCHARGE PLANNED*-* PATIENT HAS BEEN ACCEPTED WITH: [facility] P: [phone] S/W SHWETA, WHO STATED THEY WILL SERVICE PATIENT UPON DISCHARGE.
[2020-03-02 10:00] VITALS: BP 132/75
--- NOTE | 2020-03-02 10:35 | NUR ---
NURSE NOTES: pt has D/C order, all discharge assessments and instructions done and pt verbally confirmed to understand all. pt is stable,V/S stable, all belongings checked with pt and are with her, pt is aware about [facility] PH:[phone] and F/U out patient HD and pt verbally confirmed to understand all. all meds received from pharmacy and given to pt and instructed her about all meds and pt verbally confirmed to understand all and pt is aware about D/C metoprolol due to bradycardia. pt has prescription for [place] and Ativan and she asked to take it to her own pharmacy. took pictures from sacral and L buttock and uploaded, no next of kin per pt, no complain of pain at this moment, waiting for ambulance to pick pt up. will continue to monitor.
--- NOTE | 2020-03-02 10:41 | Nephrology Progress Note ---
Assessment/Plan Problem List: (1) ESRD (end stage renal disease) on dialysis (2) Hyperkalemia (3) Bartholin's gland abscess (4) Anemia (5) HCV antibody positive (6) HIV disease (7) Substance abuse Assessment Patient presents with hyperkalemia, anemia and 1 week of no dialysis Previous frequent chest pains. Anemia and evidence of upper GI bleed and [employer] in the past. Patient was on anticoagulation for atrial fibrillation however it is unclear how compliant the patient is. History of frequent hyperkalemia due to missing hemodialysis. End-stage renal disease on hemodialysis. The patient has a right chest permacath which is not dressed and appears to either be infected or very prone to infection. HIV disease. Substance abuse with previous urine test positive for narcotics and cocaine. History of hepatitis C virus. History of hypertensive kidney disease. Plan March 02: Dialyzed yesterday. Due for discharge today. March 01: Due for dialysis today. Plan to discharge after dialysis. Patient has spot at outpatient hemodialysis Friday. Discussed with case management. February 28: Dialyzed yesterday. Add clonidine patch for blood pressure. Hemodialysis tomorrow if in-house. February 27: Due for dialysis today. Lab reviewed. Blood pressure stable. Discharge planning per PMD. February 26: Due for dialysis tomorrow February 27. Labs reviewed. Blood pressure is stable. February 25: Dialyzed yesterday. Transfused 2 February 23. Next dialysis is scheduled for February 27. Will check lab tomorrow. Add Coreg for better blood pressure control February 24: Due for dialysis today. Transfused yesterday. Blood pressure slightly elevated. Will adjust blood pressure medication. February 23: Dialyzed yesterday. Hemoglobin lower today. Will transfuse 1 unit of packed RBCs today. Dialyzed tomorrow. If stable can be discharged after dialysis tomorrow. February 22: Order dialysis for today. Lab reviewed. Blood pressure acceptable. Hemoglobin 8.1 February 21: Dialyzed yesterday. No labs drawn today. Blood pressure controlled. Will check lab tomorrow. February 20: Due for dialysis today. Labs reviewed. Blood pressure medication adjusted. Continue per consultants. February 19: Will order dialysis tomorrow February 20. Will check lab in a.m. Continue per consultants. February 18: Was dialyzed yesterday February 17. Has a new permacath over the left side of the chest. Patient also was transfused yesterday. Anemia improved. Next dialysis February 20Friday. February 17: Last dialysis was February 14. Patient due to have a permacath today and then arrange for dialysis and 2 units of blood transfusion afterwards. Discussed with RN. Labs reviewed. Expect correction of the chemistry panel after dialysis. February 16: Last dialysis February 14. Due for dialysis tomorrow February 17. Due for insertion of a permacath by IR tomorrow. The removed catheter on February 14 has a negative tip culture February 15: Patient last dialyzed February 14. Today's labs reviewed. Discussed with Dr. Crowe. The dialysis catheter was removed yesterday. New catheter will be placed on February 17. 2 sets of blood cultures ordered. Discussed with RN, and charge nurse. February 14: Patient was dialyzed yesterday. Today's labs reviewed. Discussed with PMD. The ID program consultant suggest removal of the permacath due to infection. Will arrange for dialysis today. Will remove the permacath after dialysis today. Will reinsert a dialysis catheter 48 hours later. Discussed with RN. Orders in EMR. February 13: Due for dialysis today. Hemoglobin higher after transfusion. Continue per consultants. February 12: Next dialysis tomorrow on February 13. Hemoglobin remains low patient is due for another transfusion today. Continue per current treatment plan. February 11: Patient was dialyzed yesterday. Labs reviewed. Hemoglobin low. Due for transfusion. Next dialysis February 13, unless she needs it earlier. Medications are reviewed. Metoprolol dose increased. February 10: Patient due for dialysis today February 10. No labs drawn today. Will check renal parameters tomorrow. Continue per consultants. Patient anemic, transfusion is suggested. Patient dialyzed February 08, late night, for potassium of 7.4. Will give Kayexalate for high potassium as needed Adjust blood pressure medication. Folate supplement. Due for transfusion. Per orders. Subjective ROS Limited/Unobtainable: No Constitutional: Reports: malaise Objective Objective Last 24 Hour Vital Signs Date Time Temp Pulse Resp B/P (MAP) Pulse Ox O2 Delivery O2 Flow Rate FiO2 03/02/20 09:00 Room Air 03/02/20 08:12 167/77 03/02/20 08:12 80 167/77 03/02/20 07:53 98.7 80 19 167/77 (107) 96 03/02/20 07:40 69 03/02/20 05:59 150/72 03/02/20 04:00 98.1 71 19 150/72 (98) 95 03/02/20 04:00 71 03/02/20 00:00 99.3 74 19 156/70 (98) 95 03/02/20 00:00 74 03/01/20 23:48 98.8 03/01/20 23:17 160/82 03/01/20 21:00 Room Air 03/01/20 20:00 71 03/01/20 20:00 98.8 65 20 160/82 (108) 96 03/01/20 16:00 98.0 74 20 156/75 (102) 100 03/01/20 16:00 74 03/01/20 13:58 161/84 03/01/20 12:00 74 03/01/20 12:00 97.7 74 20 161/84 (109) 100 Intake and Output 03/01/20 03/02/20 19:00 07:00 Intake Total 800 ml Output Total 2000 ml Balance 800 ml -2000 ml Intake Oral 800 ml Hemodialysis UF 2000 ml # Voids 1 No can panel today Height (Feet): 5 Height (Inches): 8.00 Weight (Pounds): 181 General Appearance: no apparent distress Objective No change Jack Pryor MD Mar 02, 2020 10:41
--- NOTE | 2020-03-02 11:20 | Surgery Progress Note ---
Surgery Progress Note Subjective Procedure Performed removal of infected right chest wall tunneled hemodialysis catheter Additional Comments improved no n/v/f/c tolerating diet comfortable d/c planning reviewed meds with patient Objective Last 24 Hour Vital Signs Date Time Temp Pulse Resp B/P (MAP) Pulse Ox O2 Delivery O2 Flow Rate FiO2 03/02/20 09:00 Room Air 03/02/20 08:12 167/77 03/02/20 08:12 80 167/77 03/02/20 07:53 98.7 80 19 167/77 (107) 96 03/02/20 07:40 69 03/02/20 05:59 150/72 03/02/20 04:00 98.1 71 19 150/72 (98) 95 03/02/20 04:00 71 03/02/20 00:00 99.3 74 19 156/70 (98) 95 03/02/20 00:00 74 03/01/20 23:48 98.8 03/01/20 23:17 160/82 03/01/20 21:00 Room Air 03/01/20 20:00 71 03/01/20 20:00 98.8 65 20 160/82 (108) 96 03/01/20 16:00 98.0 74 20 156/75 (102) 100 03/01/20 16:00 74 03/01/20 13:58 161/84 03/01/20 12:00 74 03/01/20 12:00 97.7 74 20 161/84 (109) 100 I&O Intake and Output 03/01/20 03/02/20 19:00 07:00 Intake Total 800 ml Output Total 2000 ml Balance 800 ml -2000 ml Intake Oral 800 ml Hemodialysis UF 2000 ml # Voids 1 Cardiovascular: RSR Respiratory: clear Abdomen: soft, non-tender, present bowel sounds Extremities: no edema, no tenderness, no cyanosis Plan Problems: (1) Anemia (2) Bartholin's gland abscess Assessment & Plan: 69-year-old female Bartholin gland abscess cyst. Status post incision and drainage with drain placement. Drain currently in place and still draining. States that it feels better but continues to hurt. Plan for hemodialysis initiated by automobile accessories salesperson. Patient has a catheter in place unlikely infected. We will continue to monitor for local abscess drainage and improvement. Will monitor drain and manage drain accordingly. Okay for warm compress as needed. Pain management Rx written. Trend labs. Antibiotics per ID. May need repeat drainage if does not improve significantly. Thank you for letting participate in patient's care will follow recommendations anemia - transfuse prbc with HD Continue with catheter drainage functional doing well Discussed care plan with the patient Plan for outpatient HOME INSPECTOR follow-up on discharge. prbc with HD prn as per renal drain okay KUB in AM bowel regimen - constipated Drain has fallen out. Cellulitis is improved. Nontender no draining okay for drain to be out. Outpatient follow-up plan. Persistent fevers right tunneled 2-year-old permacath removed Discussed with medical team nephrology and radiology plan for new line placement this Friday new tunneled left chest wall cath placed for HD doing well comfortable d/c planning bleeding from right chest wall prior port site. hemostasis with dressings at bedside hold d/c suture placed stable labs noted okay cardiology input noted (3) Hypoglycemia (4) Vulval cellulitis Assessment & Plan: Stable improving (5) Missed dialysis (6) ESRD (end stage renal disease) on dialysis (7) Hyperkalemia (8) Substance abuse (9) HIV disease (10) HCV antibody positive (11) Weakness (12) Epileptic seizure, generalized (13) Laceration of right chest wall Assessment & Plan: Now hemostatic. Dressings intact. Suture okay. We will plan suture removal when appropriate. Additional Comments okay to d/c outpatient follow up Deon Crowe Mar 02, 2020 11:19
[2020-03-02 12:00] VITALS: BP 141/82
--- NOTE | 2020-03-02 12:54 | NUR ---
NURSE NOTES: pt is stable, V/S stable, no stress noted, iv access D/C, all belongings are with pt, pt left hospital with accompany of ambulance personnel.
--- NOTE | 2020-03-03 03:02 | Cardiology Progress Note ---
Subjective DATE OF SERVICE: Mar 02, 2020 Remains in sinus rhythm with asymptomatic bradycardic episodes and pauses well above 3 sec over past several days. Short lived episodes of SVT also noted - asymptomatic. Dialysis session yesterday was delayed, and discharge postponed as a result. Patient made aware of outpatient appointments today; dialysis and cardiology. Objective Last 24 Hour Vital Signs Date Time Temp Pulse Resp B/P (MAP) Pulse Ox O2 Delivery O2 Flow Rate FiO2 03/02/20 12:00 98.6 71 18 141/82 (101) 96 03/02/20 10:00 132/75 (94) 03/02/20 09:00 Room Air 03/02/20 08:12 167/77 03/02/20 08:12 80 167/77 03/02/20 07:53 98.7 80 19 167/77 (107) 96 03/02/20 07:40 69 03/02/20 05:59 150/72 03/02/20 04:00 98.1 71 19 150/72 (98) 95 03/02/20 04:00 71 HEENT: normal ENT inspection RHYTHM: NSR, PVCs, PACs LUNGS: lungs clear bilaterally, other - left subclavian dialysis catheter CARDIAC: regular rhythm, systolic murmur, gallop/S4, other - 1/6 systolic murmur at LLSB ABDOMEN: normal bowel sounds, non tender, soft, no organomegaly EXTREMITIES: non-tender, no calf tenderness, No edema Assessment/Plan Assessment/Plan Conduction system disease. Episodes of asystole over 3.5 sec, during sleep. Tachy-alysa syndrome Hypertension/HHD - malignant range at times Chronic diastolic CHF ESRD HIV + Hep C+ Anemia due to CKD and blood loss - s/p PRBC tx's. Cocaine abuse - chronic Hypothyroidism Paroxysmal SVT Narcotic/analgesic dependence Titrate hydralazine; additional dosing prn for BP spikes. Avoid BBlockers and clonidine HD/UF Counselled again regarding cocaine abuse Thyroid suppl as outpatient Patient recommended for and offered pacemaker; lack of access site is concerning , and will require wireless device at [facility]; if patient agrees at a later date, it will be scheduled by Dr Coello. DC plan today Nam Barnett MD Mar 03, 2020 03:02
--- NOTE | 2020-03-03 14:36 | NUR ---
TRANSFORMATION LEAD NOTE ACCESS TRANSPORTATION SCHEDULED FOR HD DAY SAT 03/04/20 WITH FISHING WORKER TIME FROM PATIENTS HOME AT [address] [id number], [facility] [id number] @ 0730 TO [facility] WITH FARE OF $2.75. RESERVATION #[id number] RETURN TRIP FISHING WORKER TIME AT 1300 FROM [facility] TO HOME WITH FARE OF $2.75 , RESERVATION #[id number] PATIENT ACCESS #[id number] ACCESS PARATRANT [phone] OPTION #2 REQUEST FOR A STANDING TIME ORDER FOR TRIPS TO AND FROM HD ON MADE WITH EMMANUEL AT ACCESS. PER EMMANUEL, APPLICATION HAS BEEN INITIATED AND WILL NOTIFY PATIENT IN 5-7 DAYS IN RE TO STATUS. CALL MADE TO PATIENT [phone] AND INFORMED OF ABOVE TRANSPORTATION SCHEDULE AND FARE
== END 2020-03-02 12:57 | disposition home health service (06) | DRG 314 ==
LOC: EDBD 14:13 → EMR 14:53 → EDBEDREQ 16:01 → 2E 16:18 → EDBEDREQ 17:14 → 4E 02-14 08:45 → 2E 02-22 18:27
PROC: 0U9LX0Z Drainage of Vestibular Gland with Drainage Device, External Approach (ICD-10-PCS; principal; 2020-02-09)
PROC: 5A1D70Z Performance of Urinary Filtration, Intermittent, Less than 6 Hours Per Day (ICD-10-PCS; principal; 2020-02-09)
PROC: 05PYX3Z Removal of Infusion Device from Upper Vein, External Approach (ICD-10-PCS; 2020-02-15)
PROC: 0JH63XZ Insertion of Tunneled Vascular Access Device into Chest Subcutaneous Tissue and Fascia, Percutaneous Approach (ICD-10-PCS; 2020-02-18)
PROC: 05HN33Z Insertion of Infusion Device into Left Internal Jugular Vein, Percutaneous Approach (ICD-10-PCS; 2020-02-18)
PROC: 0HQ5XZZ Repair Chest Skin, External Approach (ICD-10-PCS; 2020-02-22)
DX: T80.211A Bloodstream infection due to central venous catheter, initial encounter (principal); I50.33 Acute on chronic diastolic (congestive) heart failure; G92 Toxic encephalopathy; N18.6 End stage renal disease; A41.01 Sepsis due to Methicillin susceptible Staphylococcus aureus; I13.2 Hypertensive heart and chronic kidney disease with heart failure and with stage 5 chronic kidney disease, or end stage renal disease; N75.1 Abscess of Bartholin's gland; N76.4 Abscess of vulva; I47.1 Supraventricular tachycardia; S21.119A Laceration without foreign body of unspecified front wall of thorax without penetration into thoracic cavity, initial encounter; E87.5 Hyperkalemia; I16.0 Hypertensive urgency; F14.10 Cocaine abuse, uncomplicated; I48.0 Paroxysmal atrial fibrillation; D63.1 Anemia in chronic kidney disease; E53.8 Deficiency of other specified B group vitamins; Z91.15 Patient's noncompliance with renal dialysis; Z99.2 Dependence on renal dialysis; B18.2 Chronic viral hepatitis C; N75.0 Cyst of Bartholin's gland; K04.7 Periapical abscess without sinus; E16.2 Hypoglycemia, unspecified; F41.9 Anxiety disorder, unspecified; F32.9 Major depressive disorder, single episode, unspecified; G40.909 Epilepsy, unspecified, not intractable, without status epilepticus; R00.1 Bradycardia, unspecified; X58.XXXA Exposure to other specified factors, initial encounter; Y92.9 Unspecified place or not applicable
CPT/HCPCS: 36415; 71045; 72128; 72131; 74018; 76000; 80048; 80053; 80061; 80202; 80307; 81003; 82550; 82553; 82607; 82728; 82746; 82962; 82977; 83036; 83540; 83550; 83735; 83880; 84100; 84439; 84443; 84480; 84484; 84550; 85007; 85025; 85610; 85730; 86140; 86689; 86703; 86706; 86803; 86850; 86900; 86901; 86920; 87040; 87070; 87081; 87181; 87205; 87324; 87517; 93005; 93306; 96365; 96368; 96375; 99291; J2405

== ENCOUNTER 2020-04-11 14:14 | Observation (INO) | payer MEDICARE ==
[~2020-04-11] VITALS: Ht 172.7 cm; Wt 70.0 kg
[~2020-04-11 14:14] MED LIST changes: +APRESOLINE50 MG ORAL; +ATIVAN1 MG ORAL; +DIAZEPAM10 MG ORAL; +HYDRALAZINE HCL25 M1 ORAL; +HYDRALAZINE HCL50 MG ORAL; +METOPROLOL TART50 MG ORAL; +NORCO 10-325 T1 EACH ORAL; +PANTOPRAZOLE SO40 MG ORAL; +RENVELA0.8 GM ORAL; +STOOL SOFTENER100 MG ORAL; +SYNTHROID25 MCG ORAL; +TRAMADOL HCL50 MG ORAL
[2020-04-11 14:29] VITALS: BP 165/75
--- NOTE | 2020-04-11 14:29 | NUR ---
Note undone in EDM - 04/11/20 at 1910 by AIMEE ED Nurse Note: Pt from home and came in due to malfunctioning perm-a-cath. Pt was unable to receive her dialysis last Friday and today due to dialysis access clogging. Patient feels weakness and abd pain upon ED arrival. Noted perm-a-cath on left side chest with dressing. AAOx4, ambulatoy with unlabord breathing.
--- NOTE | 2020-04-11 14:30 | NUR ---
ED Nurse Note: Pt from home and came in due to malfunctioning perm-a-cath. Pt was unable to receive her dialysis last Friday and today due to dialysis access clogging. Patient feels weakness and abd pain upon ED arrival. Noted perm-a-cath on left side chest with dressing. AAOx4, ambulatory with unlabord breathing.
--- NOTE | 2020-04-11 14:35 | Emergency Room Report ---
History of Present Illness General Chief Complaint: General Complaint Source: Patient Present Illness HPI Patient is a 69-year-old female past medical history of end-stage renal disease on dialysis Friday last dialysis was on who presents to the ER for malfunctioning dialysis catheter. Patient states that she recently had a new catheter placed on her left anterior chest wall due to an infected right anterior chest wall dialysis catheter. Patient states that she went for dialysis on Friday but they were unable to perform the dialysis. Patient complains of pain around the dialysis site. She denies any other chest pain or shortness of breath. She denies any cough. She denies any fever or chills. Allergies: Coded Allergies: ASPIRIN (Unverified Allergy, Unknown, 01/16/20) IODINE (Verified Allergy, Unknown, 01/07/20) Uncoded Allergies: CONTRAST DYE (Allergy, Unknown, 01/07/20) COVID-19 Screening Contact w/high risk pt: No Recent Travel to affected area: No Experienced COVID-19 symptoms?: No COVID-19 symptoms experienced: Cough, Flu-Like Symptoms COVID-19 Testing performed DIRECTOR LEARNING SERVICES: No Patient History Reviewed Nursing Documentation: PMH: Agreed; PSxH: Agreed Nursing Documentation-PMH Hx Cardiac Problems: Yes Hx Hypertension: Yes Hx Diabetes: Yes - Blood sugar currently within normal limits Hx Cancer: No Hx Gastrointestinal Problems: Yes Hx Dialysis: Yes - left upper chest perm-a-cath Hx Neurological Problems: No Hx Seizures: No - denies Hx Epilepsy: No Hx Weakness: Yes Hx Fatigue: Yes Hx Neurologic Surgery: No Hx Brain Shunt: No Review of Systems All Other Systems: negative except mentioned in HPI Physical Exam Vital Signs Date Time Temp Pulse Resp B/P (MAP) Pulse Ox O2 Delivery O2 Flow Rate FiO2 04/11/20 14:19 98.8 84 22 168/88 (114) 98 Room Air Sp02 EP Interpretation: reviewed, normal General Appearance: no apparent distress, alert, GCS 15, non-toxic Head: normocephalic, atraumatic Eyes: bilateral eye normal inspection, bilateral eye PERRL ENT: hearing grossly normal, normal pharynx, no angioedema, normal voice Neck: full range of motion, supple/symm/no masses Respiratory: no respiratory distress, other - Left anterior chest wall dialysis tunnel catheter in place tenderness to palpation around site no erythema or discharge Cardiovascular #1: regular rate, rhythm Gastrointestinal: non tender, soft, no guarding, no rebound Rectal: deferred Musculoskeletal: no calf tenderness Neurologic: incident response consultant III-XII nml as tested, oriented x3 Psychiatric: no suicidal/homicidal ideation Skin: no rash Lymphatic: no adenopathy Medical Decision Making Diagnostic Impression: Primary Impression: ESRD (end stage renal disease) on dialysis Additional Impressions: Anemia Hemodialysis catheter malfunction ER Course I spoke with Dr. Chavira who is the patient's hand bootmaker. I discussed having surgery replace the catheter. I paged Dr. Crowe from surgery who states that he can replace it tomorrow. He says to admit the patient. He knows her from prior admissions. Laboratory Tests Test 04/11/20 15:00 White Blood Count 4.4 K/UL (4.8-10.8) L Red Blood Count 3.56 M/UL (4.20-5.40) L Hemoglobin 10.5 G/DL (12.0-16.0) L Hematocrit 32.9 % (37.0-47.0) L Mean Corpuscular Volume 92 FL (80-99) Mean Corpuscular Hemoglobin 29.5 PG (27.0-31.0) Mean Corpuscular Hemoglobin Concent 31.9 G/DL (32.0-36.0) L Red Cell Distribution Width 14.7 % (11.6-14.8) Platelet Count 137 K/UL (150-450) L Mean Platelet Volume 6.0 FL (6.5-10.1) L Neutrophils (%) (Auto) 55.8 % (45.0-75.0) Lymphocytes (%) (Auto) 28.7 % (20.0-45.0) Monocytes (%) (Auto) 8.8 % (1.0-10.0) Eosinophils (%) (Auto) 4.8 % (0.0-3.0) H Basophils (%) (Auto) 1.9 % (0.0-2.0) Prothrombin Time 12.2 SEC (9.30-11.50) H Prothrombin Time INR 1.1 (0.9-1.1) Activated Partial Thromboplast Time 29 SEC (23-33) Sodium Level 142 MMOL/L (136-145) Potassium Level 4.7 MMOL/L (3.5-5.1) Chloride Level 109 MMOL/L (98-107) H Carbon Dioxide Level 22 MMOL/L (21-32) Anion Gap 11 mmol/L (5-15) Blood Urea Nitrogen 32 mg/dL (7-18) H Creatinine 8.4 MG/DL (0.55-1.30) H Estimated Glomerular Filtration Rate 5.7 mL/min (>60) Glucose Level 82 MG/DL (74-106) Calcium Level 6.8 MG/DL (8.5-10.1) L Total Bilirubin 0.4 MG/DL (0.2-1.0) Aspartate Amino Transferase (AST) 48 U/L (15-37) H Alanine Aminotransferase (ALT) 9 U/L (12-78) L Alkaline Phosphatase 47 U/L (46-116) Pro-B-Type Natriuretic Peptide 63632 pg/mL (0-125) H Total Protein 7.9 G/DL (6.4-8.2) Albumin 2.5 G/DL (3.4-5.0) L Globulin 5.4 g/dL Albumin/Globulin Ratio 0.5 (1.0-2.7) L EKG Diagnostic Results EKG Time: 15:11 EP Interpretation: MD Missy Horton MD Rate: normal Rhythm: NSR ST Segments: no acute changes ASA given to the pt in ED: No Rhythm Strip Diag. Results Rhythm Strip Time: 15:11 EP Interpretation: yes - Missy Avila MD Rate: 88 bpm Rhythm: NSR, no PVC's, no ectopy Chest X-Ray Diagnostic Results Chest X-Ray Diagnostic Results : Chest X-Ray Ordered: Yes # of Views/Limited/Complete: 1 View Indication: Other - weakness EP Interpretation: Yes Interpretation: no consolidation, no effusion, no pneumothorax, other - Cardiomegaly Impression: No acute disease Electronically Signed by: Missy Avila MD Last Vital Signs Date Time Temp Pulse Resp B/P (MAP) Pulse Ox O2 Delivery O2 Flow Rate FiO2 04/11/20 14:19 98.8 84 22 168/88 (114) 98 Room Air Disposition: ADMITTED INPATIENT Condition: Critical Physician Consult: Dr. Barnett at 410pm Additional Instructions: Please note that this report is being documented using DRAGON technology. This can lead to erroneous entry secondary to incorrect interpretation by the dictating instrument. Missy Avila M.D. Apr 11, 2020 14:35
[2020-04-11] MEDS ORDERED: fentaNYL 100 mcg/2 mL IV ONE ×3 (14:45→16:00)
--- NOTE | 2020-04-11 15:04 | NUR ---
ED Nurse Note: Collected blood specimen then sent.
[2020-04-11 15:21] LABS: BASOPHILS % (AUTO) 1.9 % (0.0-2.0); EOSINOPHILS % (AUTO) 4.8 % (0.0-3.0); HEMATOCRIT 32.9 % (37.0-47.0); HEMOGLOBIN 10.5 G/DL (12.0-16.0); LYMPHOCYTES % (AUTO) 28.7 % (20.0-45.0); MEAN CORPUSCULAR VOLUME 92 FL (80-99); MONOCYTES % (AUTO) 8.8 % (1.0-10.0); NEUTROPHILS % (AUTO) 55.8 % (45.0-75.0); PLATELET COUNT 137 K/UL (150-450); RED BLOOD COUNT 3.56 M/UL (4.20-5.40); RED CELL DISTRIBUTION WIDTH 14.7 % (11.6-14.8); WHITE BLOOD COUNT 4.4 K/UL (4.8-10.8)
[2020-04-11 15:28] LABS: ANION GAP 11 mmol/L (5-15); BLOOD UREA NITROGEN 32 mg/dL (7-18); CALCIUM 6.8 MG/DL (8.5-10.1); CARBON DIOXIDE 22 MMOL/L (21-32); CHLORIDE 109 MMOL/L (98-107); CREATININE 8.4 MG/DL (0.55-1.30); POTASSIUM 4.7 MMOL/L (3.5-5.1); SODIUM 142 MMOL/L (136-145)
[2020-04-11 15:31] LABS: INR 1.1 (0.9-1.1)
[2020-04-11 15:33] LABS: ALANINE AMINOTRANSFERASE 9 U/L (12-78); ALBUMIN 2.5 G/DL (3.4-5.0); ALBUMIN/GLOBULIN RATIO 0.5 (1.0-2.7); ALKALINE PHOSPHATASE 47 U/L (46-116); ASPARTATE AMINO TRANSFERASE 48 U/L (15-37); BILIRUBIN,TOTAL 0.4 MG/DL (0.2-1.0)
--- NOTE | 2020-04-11 15:56 | NUR ---
ED Nurse Note: Patient still in pain and asking for pain meds. Dr Avila was notified.
[2020-04-11 16:35] VITALS: BP 154/80
[2020-04-11] MEDS ORDERED: Morphine Sulfate 4mg/ml Inj (IV USE ONLY) IVP ONE (16:45)
--- NOTE | 2020-04-11 17:44 | Diagnostic Imaging Report ---
Indication: Chest pain Technique: One view of the chest Comparison: 03/28/2020 Findings: Previously demonstrated tunneled dialysis catheter is retracted somewhat, tip now projected at the level of the mid superior vena cava, previously in the high right atrium. There is minimal if any interstitial congestion, decreased from the prior study. The heart size is borderline enlarged. The pleural spaces are clear. Metallic opacity projects over the medial left hemidiaphragm Impression: Minimal if any interstitial congestion No other definite acute process. Findings as noted
--- NOTE | 2020-04-11 18:15 | NUR ---
ED Nurse Note: Pt placed on Bipap per ERMD order. Please see interventions.
[2020-04-11 18:37] VITALS: BP 158/86
--- NOTE | 2020-04-11 18:56 | NUR ---
ED Nurse Note: Report given to Yao SALAZAR of Med Surg unit.
--- NOTE | 2020-04-11 19:10 | NUR ---
HAND-OFF: Report given to Carl Membreno RN.
--- NOTE | 2020-04-11 19:15 | NUR ---
ED Nurse Note: received report from Wilma SALAZAR.
--- NOTE | 2020-04-11 19:30 | NUR ---
ED Nurse Note: gave report to sergo deleon. patient is bed in no distress at this time. will await transfer.
[2020-04-11 19:50] VITALS: BP 147/81
--- NOTE | 2020-04-11 19:50 | NUR ---
TRANSFER TO FLOOR: Patient transferred to [facility] in stable condition as ordered, per dr. Barnett. Report given to Monica SALAZAR. Belongings sent with patiet
[2020-04-11] MEDS: HydrALAZINE 50mg tab ORAL SCH (21:41)
[2020-04-11] MEDS: HYDROmorphone 1mg/ml Carpuject IVP PRN (21:48)
[2020-04-11 22:00] VITALS: BP 172/89
[2020-04-11] MEDS: HydrOXYzine tab 25mg tab ORAL PRN (22:45)
--- NOTE | 2020-04-11 23:00 | NUR ---
NURSE NOTES: Received patient from ED on [facility] accompanied by a staff. Alert and oriented x4. In severe pain from left shoulder radiated to abdomen. Permacath on left upper chest, per patient she couldn't get dialyzed because it's clogged. Dressing changed. Skin assessment done. Belongings checked. Patient wanted to keep her valuables at bedside. Oriented to room. Instructed to use call light for assistance. Call light in reach. Bed in lowest, lock engaged and alarm on. Spoke with Dr. Barnett, he said would put his admission orders in. Meds given as ordered. Addendum: 04/12/20 at 0638 by REG HORAN RN Spoke with Jaime of ED regarding inpatient order that Dr. Barnett wanted to be cancelled because he wanted patient to be on observation. Was found out that was AM nurse who put the order in.
[2020-04-12] VITALS (7 sets, daily range): BP systolic 148–175; BP diastolic 89–105
--- NOTE | 2020-04-12 | NUR ---
NURSE NOTES: Patient reported generalized itching and bleeding on abdominal area due to scratching. Atarax given as ordered.
[2020-04-12] MEDS: HydrALAZINE 25mg tab ORAL PRN (00:39)
[2020-04-12] MEDS: HYDROcodone/Acetamin 5/325 tab ORAL PRN ×2 (00:40→14:17)
--- NOTE | 2020-04-12 03:30 | Consultation ---
DATE OF CONSULTATION: 04/11/2020 CARDIOLOGY CONSULTATION CONSULTING PHYSICIAN: Nam Barnett MD. REFERRING PHYSICIAN: Michael Peralta MD. REASON FOR CONSULTATION: Cardiovascular clearance for dialysis access. HISTORY OF PRESENT ILLNESS: This is a 69-year-old has had multiple hospitalizations over the past couple of months due to complications of her vascular disease. She has end-stage renal disease and is on hemodialysis 3 times a week. She has a dialysis catheter that was recently placed in the left chest wall due to a previously infected right chest wall catheter. The patient noted pain over the dialysis access site at her dialysis session 3 days ago and apparently limited hemodialysis could be performed. The patient is to undergo revision of the catheter for adequate hemodialysis and ultrafiltration. PAST MEDICAL HISTORY: 1. End-stage renal disease. 2. Hypertensive heart disease. 3. Substance abuse with recurring cocaine abuse. 4. Hepatitis C positive. 5. HIV positive. 6. Type 2 diabetes mellitus. 7. Generalized atherosclerosis. 8. Hypothyroidism. 9. Anemia of chronic kidney disease. 10. Diastolic congestive heart failure. ALLERGIES: Include iodine, aspirin, and contrast dye. MEDICATIONS: Reviewed and reconciled. FAMILY HISTORY: Noncontributory. SOCIAL HISTORY: Notable for cocaine abuse as outlined above. A 10-point review of systems performed, unchanged from my dictation of 2 weeks ago. PHYSICAL EXAMINATION: VITAL SIGNS: Blood pressure 168/88, heart rate 84, respirations 22. No fevers. HEENT: Conjunctivae pink. Arcus senilis. Oropharynx clear. NECK: Supple. CHEST: Left chest wall catheter site with tenderness over entry. No bleeding. LUNGS: Clear. CARDIAC: Regular. Normal S1, S2 with a fourth heart sound. ABDOMEN: Soft, nontender. EXTREMITIES: No edema. LABORATORY AND DIAGNOSTIC DATA: Labs are reviewed. EKG with sinus rhythm and nonspecific ST change. IMPRESSION: 1. Dialysis catheter malfunction and pain. 2. End-stage renal disease. 3. Acute on chronic diastolic congestive heart failure. 4. Hypertensive heart disease with labile blood pressure. 5. Accelerated atherosclerosis. 6. History of cocaine abuse. 7. HIV positive. 8. Hepatitis C positive. 9. Hypothyroidism. 10. Diabetes mellitus with complications. PLAN: 1. Dialysis catheter revision. 2. Titrate antihypertensive therapy. 3. Hold anti-platelet drugs until catheter revision completed, then resume. 4. Maintain statin drug. 5. Thyroid replacement. 6. Symptom-guided pain therapy only. Nam Barnett M.D. DR: MELVIN JOB#: [id number] CC:
[2020-04-12] MEDS: HydrOXYzine tab 25mg tab ORAL PRN ×2 (05:36→14:16)
[2020-04-12] MEDS: HydrALAZINE 50mg tab ORAL SCH ×2 (05:37→14:11)
--- NOTE | 2020-04-12 06:40 | NUR ---
NURSE NOTES: Wound care photos taken and uploaded. Dressing changed.
--- NOTE | 2020-04-12 07:20 | NUR ---
NURSE NOTES: Received report from MARTIN De Souza. Patient is received lying in hospital bed, AAO x4, able to make needs known, on RA in no apparent respiratory distress. Nonambulatory, uses bedpan. Pt is continent x 2. LBM yesterday 04/11/20. Multiple scratches were noted on Sacrum, R buttocks, abd area and chest area. Pt has c/o itching and received PRN medication for itching. Pt also has c/o pain on her back and asks for pain medicatrion. Last dose was given for QHS dose last night. Pt has PRN norco for pain relief. CLARITZA pIV 22 g saline lock noted. Bed locked and in lowest position, call light within reach. Pt is planned for permacath replacement today on [facility]. Will continue POC.
--- NOTE | 2020-04-12 07:23 | NUR ---
NURSE HAND-OFF: Important Events on Shift:Admission, Wound care photos and orders, Pain mgt Patient Status: Needs dialysis Diet: Renal Pending Orders: Catheter placement, labs Pending Results/Labs:btnp,crp,cbc,tsh,cmp,uric acid, mg, phos Pending MD notification: Latest Vital Signs: Temperature 97.7 , Pulse 86 , B/P 162 /90 , Respiratory Rate 20 , O2 SAT 93 , Room Air, O2 Flow Rate . Vital Sign Comment: Increased BP Latest Espinoza Fall Score: 45 Fall Risk: High Risk Safety Measures: Call light Within Reach, Bed Alarm Zone 1, Side Rails Side Rails x2, Bed position Low and Locked. Fall Precautions: Yellow Socks Door Sign Patient Fall Education Report given to MARTIN Flores.
--- NOTE | 2020-04-12 08:26 | NUR ---
NURSE NOTES: Verified order for code status with Dr. Barnett and confirmed that patient is full code. Also verified order for home medication of Tivicay. Per Dr. Barnett, DC medication. Orders verified and read back. Will carry out. Pharmacy notified.
[2020-04-12 08:57] LABS: BASOPHILS % (AUTO) 0.7 % (0.0-2.0); HEMATOCRIT 29.7 % (37.0-47.0); HEMOGLOBIN 9.4 G/DL (12.0-16.0); LYMPHOCYTES % (AUTO) 20.4 % (20.0-45.0); MEAN CORPUSCULAR VOLUME 90 FL (80-99); MONOCYTES % (AUTO) 8.2 % (1.0-10.0); NEUTROPHILS % (AUTO) 66.7 % (45.0-75.0); PLATELET COUNT 119 K/UL (150-450); RED CELL DISTRIBUTION WIDTH 14.3 % (11.6-14.8); WHITE BLOOD COUNT 4.6 K/UL (4.8-10.8)
[2020-04-12] MEDS: Docusate 100mg cap ORAL SCH ×2 (09:00→18:00)
[2020-04-12] MEDS ORDERED: Lidocaine 1% 10mg/ml/EPI 0.01mg/ml 30ml INJ ONE (09:00)
[2020-04-12] MEDS ORDERED: Heparin1,000 units/500ml Premix(Conc:2 units/ml) INJ ONE (09:00)
[2020-04-12] MEDS ORDERED: Dolutegravir Sodium 50mg tab ORAL SCH (09:00)
[2020-04-12] MEDS: Renvela 800mg Pkt NG SCH ×3 (09:04→18:01)
[2020-04-12] MEDS ORDERED: HYDROmorphone 1mg/ml Carpuject IM ONE (09:37)
[2020-04-12 09:54] LABS: ALANINE AMINOTRANSFERASE 10 U/L (12-78); ALBUMIN 2.7 G/DL (3.4-5.0); ALBUMIN/GLOBULIN RATIO 0.5 (1.0-2.7); ALKALINE PHOSPHATASE 55 U/L (46-116); ANION GAP 9 mmol/L (5-15); ASPARTATE AMINO TRANSFERASE 34 U/L (15-37); BILIRUBIN,TOTAL 0.4 MG/DL (0.2-1.0); BLOOD UREA NITROGEN 42 mg/dL (7-18); CALCIUM 7.6 MG/DL (8.5-10.1); CARBON DIOXIDE 27 MMOL/L (21-32); CHLORIDE 102 MMOL/L (98-107); CREATININE 11.3 MG/DL (0.55-1.30); PHOSPHORUS 4.8 MG/DL (2.5-4.9); POTASSIUM 4.3 MMOL/L (3.5-5.1); SODIUM 138 MMOL/L (136-145)
--- NOTE | 2020-04-12 12:53 | Consultation ---
Consult Note Consult Note Asked to evaluate the patient at the request of Dr. Barnett for dialysis management Patient was admitted through emergency room due to malfunctioning left permacath through which that the patient need to get dialysis Patient due for insertion of a new catheter and subsequent dialysis today Patient is a 69-year-old female past medical history of end-stage renal disease on dialysis Friday last dialysis was on who presents to the ER for malfunctioning dialysis catheter. Patient states that she recently had a new catheter placed on her left anterior chest wall due to an infected right anterior chest wall dialysis catheter. Patient states that she went for dialysis on Friday but they were unable to perform the dialysis. Patient complains of pain around the dialysis site. She denies any other chest pain or shortness of breath. She denies any cough. She denies any fever or chills. Allergies: Coded Allergies: ASPIRIN (Unverified Allergy, Unknown, 01/16/20) IODINE (Verified Allergy, Unknown, 01/07/20) Uncoded Allergies: CONTRAST DYE (Allergy, Unknown, 01/07/20) COVID-19 Screening Contact w/high risk pt: No Recent Travel to affected area: No Experienced COVID-19 symptoms?: No COVID-19 symptoms experienced: Cough, Flu-Like Symptoms COVID-19 Testing performed LAMINATION TECHNICIAN: No Hx Cardiac Problems: Yes Hx Hypertension: Yes Hx Diabetes: Yes - Blood sugar currently within normal limits Hx Gastrointestinal Problems: Yes Hx Dialysis: Yes - left upper chest perm-a-cath Hx Weakness: Yes Hx Fatigue: Yes Hx Brain Shunt: No PHYSICAL EXAMINATION: VITAL SIGNS: Temperature 98, pulse 88, respirations 20, and blood pressure 163/89. GENERAL: The patient is a well-developed female in no apparent distress. She is tearful and crying, but awake and alert. HEENT: Head is normocephalic and atraumatic. Oropharynx is clear. Mucous membranes are moist. NECK: Supple. HEART: Regular rate and rhythm. No murmurs, rubs, or gallops. LUNGS: Clear to auscultation bilaterally. ABDOMEN: Soft, nontender, nondistended. EXTREMITIES: Without clubbing, cyanosis, or edema. LABORATORY AND DIAGNOSTIC DATA: White count 4, hemoglobin 10, platelets of 137. Sodium 136, potassium 4.8. Assessment/Plan 1. Dialysis catheter malfunction and pain. 2. End-stage renal disease. 3. Acute on chronic diastolic congestive heart failure. 4. Hypertensive heart disease with labile blood pressure. 5. Accelerated atherosclerosis. 6. History of cocaine abuse. 7. HIV positive. 8. Hepatitis C positive. 9. Hypothyroidism. 10. Diabetes mellitus with complications. Urgent dialysis after insertion of Catheter Ultrafiltration with dialysis Keep the blood sugar and blood pressure in check Per orders Jack Pryor MD Apr 12, 2020 12:53
--- NOTE | 2020-04-12 15:16 | Consultation ---
History of Present Illness General Date patient seen: Apr 12, 2020 Reason for Hospitalization: General Complaint Present Illness HPI This is a 69-year-old female well-known to me from prior admissions care plan. Patient recently was trying to get her dialysis but flow was abnormal and was told to come to [facility] for evaluation given this is where her majority of her care was performed. Patient states that she scratches her dialysis access site a lot and she may have pulled out her dialysis access permacath a little bit. X-ray confirmed that catheter was not in appropriate positioning or that of what was initially placed. Patient is admitted for further care management as she missed dialysis and the flow was not appropriate. Surgery was called to evaluate and assist with care and potential dialysis catheter or temporary dialysis insertion. Patient seen, patient evaluate, chart reviewed. Currently states pain and wants more pain medication as she feels she never receives enough when she is in the hospital outside of the hospital. Allergies: Coded Allergies: ASPIRIN (Unverified Allergy, Unknown, 01/16/20) IODINE (Verified Allergy, Unknown, 01/07/20) Uncoded Allergies: CONTRAST DYE (Allergy, Unknown, 01/07/20) COVID-19 Screening Contact w/high risk pt: No Recent Travel to affected area: No Experienced COVID-19 symptoms?: No COVID-19 symptoms experienced: Cough, Flu-Like Symptoms Medication History Scheduled Amlodipine Besylate* (Amlodipine Besylate*), 10 MG ORAL DAILY, (Reported) Docusate Sodium (Stool Softener), 100 MG ORAL BID, (Reported) Dolutegravir Sodium (Tivicay), 50 MG ORAL DAILY, (Reported) Hydralazine Hcl* (Hydralazine Hcl*), 25 MG ORAL EVERY 8 HOURS, (Reported) Hydralazine Hcl* (Hydralazine Hcl*), 50 MG ORAL EVERY 8 HOURS, (Reported) Levothyroxine Sodium* (Synthroid*), 50 MCG ORAL DAILY, (Reported) Pantoprazole* (Pantoprazole*), 40 MG ORAL BID, (Reported) Sevelamer Carbonate* (Renvela*), 1,600 MG ORAL THREE TIMES A DAY, (Reported) Patient History History Provided By: Patient, Medical Record, PMD Healthcare decision maker Resuscitation status Advanced Directive on File Past Medical/Surgical History Past Medical/Surgical History: (1) Hypertension (2) Sick sinus syndrome (3) Hyperkalemia (4) Substance abuse (5) Weakness (6) HIV disease (7) Epileptic seizure, generalized (8) Open wound of chest wall (9) HCV antibody positive (10) Anemia (11) ESRD (end stage renal disease) on dialysis (12) Hemodialysis catheter malfunction Review of Systems Review of Symptoms General ROS: no weight loss or fever Psychological ROS: no depression or mood changes, no memory loss Ophthalmic ROS: no visual changes or eye irritation ENT ROS: no nasal congestion, hearing loss, dizziness Allergy and Immunology ROS: no allergic symptoms or urticaria Hematological and Lymphatic ROS: no swollen glands, unusual bleeding or bruising Endocrine ROS: no polyuria, polydipsia, weight changes, temperature intolerance Respiratory ROS: no cough, shortness of breath, or wheezing Cardiovascular ROS: no chest pain or dyspnea on exertion Gastrointestinal ROS: denies abdominal pain, bright red blood in stool. Musculoskeletal ROS: no myalgias or arthralgias Neurological ROS: no TIA or stroke symptoms Dermatological ROS: no new or changing skin lesions, rashes or pruritis Physical Exam Physical Exam General appearance: alert, cooperative, no distress, appears stated age Head: Normocephalic, without obvious abnormality, atraumatic Eyes: conjunctivae/corneas clear. PERRL, EOM's intact. Fundi benign Throat: Lips, mucosa, and tongue normal. Teeth and gums normal Neck: supple, symmetrical, trachea midline, no adenopathy, thyroid: not enlarged, symmetric, no tenderness/mass/nodules, no carotid bruit and no JVD Lungs: clear to auscultation bilaterally Heart: regular rate and rhythm, S1, S2 normal, no murmur, click, rub or gallop Abdomen: soft, non-tender. Bowel sounds normal. No masses, no organomegaly Extremities: extremities normal, atraumatic, no cyanosis or edema Pulses: 2+ and symmetric Skin: Skin color, texture, turgor normal. No rashes or lesions Neurologic: Grossly normal Last 24 Hour Vital Signs Date Time Temp Pulse Resp B/P (MAP) Pulse Ox O2 Delivery O2 Flow Rate FiO2 04/12/20 14:11 153/93 04/12/20 12:00 97.5 91 20 153/89 (110) 98 04/12/20 09:04 96 153/93 9/9/20 08:00 98.1 96 19 153/93 (113) 95 04/12/20 05:37 162/90 04/12/20 04:00 97.7 86 20 162/90 (114) 93 04/12/20 00:39 175/105 04/12/20 00:00 98.1 99 18 175/105 (128) 95 04/11/20 23:53 Room Air 04/11/20 22:00 98.2 86 18 172/89 (116) 96 04/11/20 21:41 172/86 04/11/20 19:50 98.4 76 16 147/81 98 Room Air 04/11/20 19:50 98.4 76 16 147/81 98 Room Air 04/11/20 18:37 98.5 83 15 158/86 97 Room Air 04/11/20 17:24 98.8 04/11/20 16:35 98.2 79 16 154/80 100 Room Air 04/11/20 15:29 98.8 04/11/20 15:29 98.8 Intake and Output 04/11/20 04/12/20 19:00 07:00 Intake Total 0 ml Balance 0 ml Intake Oral 0 ml # Bowel Movements 1 Laboratory Tests Test 04/12/20 08:30 White Blood Count 4.6 K/UL (4.8-10.8) L Red Blood Count 3.30 M/UL (4.20-5.40) L Hemoglobin 9.4 G/DL (12.0-16.0) L Hematocrit 29.7 % (37.0-47.0) L Mean Corpuscular Volume 90 FL (80-99) Mean Corpuscular Hemoglobin 28.7 PG (27.0-31.0) Mean Corpuscular Hemoglobin Concent 31.8 G/DL (32.0-36.0) L Red Cell Distribution Width 14.3 % (11.6-14.8) Platelet Count 119 K/UL (150-450) L Mean Platelet Volume 5.0 FL (6.5-10.1) L Neutrophils (%) (Auto) 66.7 % (45.0-75.0) Lymphocytes (%) (Auto) 20.4 % (20.0-45.0) Monocytes (%) (Auto) 8.2 % (1.0-10.0) Eosinophils (%) (Auto) 4.0 % (0.0-3.0) H Basophils (%) (Auto) 0.7 % (0.0-2.0) Sodium Level 138 MMOL/L (136-145) Potassium Level 4.3 MMOL/L (3.5-5.1) Chloride Level 102 MMOL/L (98-107) Carbon Dioxide Level 27 MMOL/L (21-32) Anion Gap 9 mmol/L (5-15) Blood Urea Nitrogen 42 mg/dL (7-18) H Creatinine 11.3 MG/DL (0.55-1.30) H Estimat Glomerular Filtration Rate 4.0 mL/min (>60) Glucose Level 86 MG/DL (74-106) Uric Acid 7.3 MG/DL (2.6-7.2) H Calcium Level 7.6 MG/DL (8.5-10.1) L Phosphorus Level 4.8 MG/DL (2.5-4.9) Magnesium Level 2.3 MG/DL (1.8-2.4) Total Bilirubin 0.4 MG/DL (0.2-1.0) Aspartate Amino Transf (AST/SGOT) 34 U/L (15-37) Alanine Aminotransferase (ALT/SGPT) 10 U/L (12-78) L Alkaline Phosphatase 55 U/L (46-116) C-Reactive Protein, Quantitative < 0.4 mg/dL (0.00-0.90) Pro-B-Type Natriuretic Peptide 62831 pg/mL (0-125) H Total Protein 8.3 G/DL (6.4-8.2) H Albumin 2.7 G/DL (3.4-5.0) L Globulin 5.6 g/dL Albumin/Globulin Ratio 0.5 (1.0-2.7) L Thyroid Stimulating Hormone (TSH) 5.068 uiU/mL (0.358-3.740) Microbiology Date/Time Source Procedure Growth Status 04/11/20 16:45 Nasopharynx SARS-CoV-2 RdRp Gene Assay - Final Complete 04/11/20 16:45 Rectum Received Height (Feet): 5 Height (Inches): 8.00 Weight (Pounds): 151 Medications Current Medications Medications (Trade) Dose Ordered Sig/Rochelle Route PRN Reason Start Time Stop Time Status Last Admin Dose Admin Acetaminophen/ Hydrocodone Bitart ([place] 5/325) 1 tab Q6H PRN ORAL Moderate Pain 04/11/20 21:45 04/18/20 21:44 04/12/20 14:17 Amlodipine Besylate (Norvasc) 10 mg DAILY ORAL 04/12/20 09:00 05/12/20 08:59 04/12/20 09:04 Docusate Sodium (Colace) 100 mg TWICE A DAY ORAL 04/12/20 09:00 05/12/20 08:59 Hydralazine HCl (Apresoline) 25 mg Q6H PRN ORAL SBP above 160 04/11/20 21:36 07/10/20 21:35 04/12/20 00:39 Hydralazine HCl (Apresoline) 50 mg Q8HR ORAL 04/11/20 22:00 07/10/20 21:59 04/12/20 14:11 Hydromorphone HCl (Dilaudid) 1 mg BEDTIME PRN IVP Severe Pain 04/11/20 21:45 04/18/20 21:44 04/11/20 21:48 Hydroxyzine HCl (Atarax) 25 mg Q6H PRN ORAL Itching 04/11/20 22:15 05/11/20 22:14 04/12/20 14:16 Levothyroxine Sodium (Synthroid) 50 mcg DAILY@0630 ORAL 04/12/20 06:30 05/12/20 06:29 04/12/20 05:36 Sevelamer Carbonate (Renvela) 1,600 mg TID NG 04/12/20 09:00 07/11/20 08:59 04/12/20 12:43 Assessment/Plan Problem List: (1) Anemia ICD Codes: D64.9 - Anemia, unspecified SNOMED: 666256717 (2) ESRD (end stage renal disease) on dialysis ICD Codes: N18.6 - End stage renal disease; Z99.2 - Dependence on renal dialysis SNOMED: 488929725 (3) Sick sinus syndrome ICD Codes: I49.5 - Sick sinus syndrome SNOMED: 26685861 (4) Hyperkalemia ICD Codes: E87.5 - Hyperkalemia SNOMED: 39330459 (5) Substance abuse ICD Codes: F19.10 - Other psychoactive substance abuse, uncomplicated SNOMED: 80494831 (6) Weakness ICD Codes: R53.1 - Weakness SNOMED: 30660163 (7) Hypertension ICD Codes: I10 - Essential (primary) hypertension SNOMED: 57042345 (8) HIV disease ICD Codes: B20 - Human immunodeficiency virus [HIV] disease SNOMED: 17334033 (9) Epileptic seizure, generalized ICD Codes: G40.309 - Generalized idiopathic epilepsy and epileptic syndromes, not intractable, without status epilepticus SNOMED: 49137693 (10) Open wound of chest wall ICD Codes: S21.109A - Unspecified open wound of unspecified front wall of thorax without penetration into thoracic cavity, initial encounter SNOMED: 869756465 (11) HCV antibody positive ICD Codes: R76.8 - Other specified abnormal immunological findings in serum SNOMED: 574827210 (12) Hemodialysis catheter malfunction Assessment & Plan: Patient with manipulation of her left chest wall permacath that was placed on prior admission. States she scratches a lot and recently may have pulled it out. Chest x-ray reviewed imaging identified catheter malposition. Care plan discussed with radiology interventional which will plan on new placement today as necessary. Catheter evaluated by myself personally at bedside and though she does have aspiration And flushing both ports it is decrease given the location potential If necessary emergently can use lines for meds or dialysis Will await placement labs noted Thank you for let me participate in patient's care will follow with recommendations ICD Codes: T82.41XA - Breakdown (mechanical) of vascular dialysis catheter, initial encounter SNOMED: 176154896 Deon Crowe Apr 12, 2020 15:16
[2020-04-12] MEDS ORDERED: ceFAZolin 2gm/50ml Premix 50 ML IV ONE (16:15)
--- NOTE | 2020-04-12 16:22 | Pre-Procedure Note/Attestation ---
Pre-Procedure Note/Attestation Complete Prior to Procedure Planned Procedure: left Procedure Narrative: permacath exchange Indications for Procedure Pre-Operative Diagnosis: malfunctioning Attestation I attest that I discussed the nature of the procedure; its benefits; risks and complications; and alternatives (and the risks and benefits of such alternatives ), prior to the procedure, with the patient (or the patient's legal manufacturer representative). I attest that, if there was a reasonable possibility of needing a blood transfusion, the patient (or the patient's legal manufacturer representative) was given the [facility] standardized written summary, pursuant to the Jose Lola Blood Safety Act ([place] Health and Safety Code # 1645, as amended). I attest that I re-evaluated the patient just prior to the surgery and that there has been no change in the patient's H&P, except as documented below: Haile Luciano MD Apr 12, 2020 16:22
--- NOTE | 2020-04-12 16:23 | Brief Operative Note ---
Immediate Post Operative Note Operative Note Pre-op Diagnosis: malfunctioning Procedure: Permacath exchange Post-op Diagnosis: same as pre-op Surgeon: Anayeli Oden Anesthesia: local Specimen: none Complications: none Fluids: none Implant(s) used?: No Haile Oden MD Apr 12, 2020 16:23
--- NOTE | 2020-04-12 16:23 | NUR ---
CASE MANAGEMENT:INITIAL REVIEW 69 YR OLD FEMALE FROM HOME CC;GENERAL COMPLAINT SI;CATHETER MALFUNCTION 98.8 84 22 168/88 98% ON RA WBC 4.4 BUN 32 CR 8.4 CA 6.8 AST 48 BNP 19783 ALB 2.5 PT 12.2 COVID RAPID ~ NEGATIVE CXR ~ Previously demonstrated tunneled dialysis catheter is retracted somewhat, tip now projected at the level of the mid superior vena cava, previously in the high right atrium. There is minimal if any interstitial congestion, decreased from the prior study. The heart size is borderline enlarged. The pleural spaces are clear. Metallic opacity projects over the medial left hemidiaphragm IS;FENTANYL CITRATE IV MORPHINE IV ADMITTED TO MED SURG MED SURG STATUS DCP;FROM HOME PLAN; CATHETER PLACEMENT REVISION
[2020-04-12] MEDS ORDERED: ceFAZolin 2gm/50ml Premix 50 ML IVPB SCH (16:30)
--- NOTE | 2020-04-12 17:01 | NUR ---
RADIOLOGY NOTE: TUNNELED DIALYSIS CATHETER EXCHANGE BY DR. BRENDA CHOU AT 1605 HRS. FA
--- NOTE | 2020-04-12 17:33 | NUR ---
NURSE NOTES: Pt received back from IR. Permacath placed on left upper chest. HD nurse, Jose notified of HD today, from [facility] Dialysis. Per Jose, Mathew is covering for her. Will continue to f/u.
--- NOTE | 2020-04-12 17:44 | Diagnostic Imaging Report ---
INDICATION: Malpositioned tunneled dialysis catheter TECHNIQUE: Informed consent obtained prior to commencement of the procedure. Patient given IV antibiotics. Procedural timeout performed. Prior imaging studies reviewed. Total sterile technique, including sterile gloves and hand hygiene, hat, mask, sterile gown, large sterile drape, and preparation with 2% chlorhexidine utilized. A hydrophilic guidewire was passed through the pre-existing catheter, and the catheter was removed. A Kumpe catheter was then used to direct the guidewire into the inferior vena cava. A new 27 cm Bioflo DuraMax tunneled dialysis catheter was then passed over the guidewire, positioned with the tip at the mid right atrium. Fluoroscopy confirmed satisfactory catheter tip position. The patient tolerated the procedure well, without immediate complication. Fluoroscopy time: 98.1 seconds Total dose: 0.34797 mGym2 Total number of images: 2 COMPARISON: None FINDINGS: As above IMPRESSION: Successful over the wire exchange of malpositioned tunneled dialysis catheter under fluoroscopy guidance, as described
[2020-04-12] MEDS: HydrOXYzine tab 25mg tab ORAL SCH (18:01)
--- NOTE | 2020-04-12 19:05 | NUR ---
NURSE HAND-OFF: Important Events on Shift: Permacath replaced on R upper chest today, Dilaudid IM order given x 1 in AM, Hewitt given x 1 during shift, pending HD tonight Patient Status: stable Diet: Renal Diet Pending Orders: Possible DC tomorrow Pending Results/Labs: labs in AM Pending MD notification: n/a Latest Vital Signs: Temperature 99.4 , Pulse 101 , B/P 152 /93 , Respiratory Rate 19 , O2 SAT 95 , Room Air, O2 Flow Rate . Vital Sign Comment: monitor BP Latest Espinoza Fall Score: 45 Fall Risk: High Risk Safety Measures: Call light Within Reach, Bed Alarm Zone 1, Side Rails Side Rails x2, Bed position Low and Locked. Fall Precautions: Patient Fall Education Report given to MARTIN De Souza. Endorsed POC.
--- NOTE | 2020-04-12 19:07 | NUR ---
NURSE NOTES: F/u call made to [facility] Dialysis and s/w Pari. Asked Pari re time for HD schedule for patient this evening. Per Pari, they will call back and let us know. Awaiting call back. Will endorse to next shift.
--- NOTE | 2020-04-12 19:11 | NUR ---
NURSE NOTES: Received call back from CHARLENE Grey Nurse from [facility], stating that he will come between [id number] [facility]. Will endorse to next shift RN.
--- NOTE | 2020-04-12 19:30 | NUR ---
NURSE NOTES: Patient in bed, in severe pain mostly on the left side of her body. Will medicate as ordered. For dialysis tonight. Call light in reach. Bed in lowest, lock engaged and alarm on. Will continue plan of care.
--- NOTE | 2020-04-12 20:00 | NUR ---
NURSE NOTES: Patient refused SCD's. Explained risks and benefits.
[2020-04-12] MEDS: HYDROmorphone 1mg/ml Carpuject IVP PRN (20:03)
[2020-04-13] VITALS (7 sets, daily range): BP systolic 152–187; BP diastolic 82–104
[2020-04-13] MEDS: HydrALAZINE 50mg tab ORAL SCH ×4 (00:26→20:17)
[2020-04-13] MEDS: HYDROcodone/Acetamin 5/325 tab ORAL PRN ×2 (00:28→06:47)
--- NOTE | 2020-04-13 00:40 | NUR ---
NURSE NOTES: Spoke with hemodialysis nurse on the phone regarding the blood pressure medicine that was on hold prior dialysis. Made him aware that patient's BP been high and got higher with the last check. He said it's ok to give Hydralazine for now. Given. Charge nurse made aware.
[2020-04-13] MEDS: HydrOXYzine tab 25mg tab ORAL SCH ×3 (02:15→21:01)
--- NOTE | 2020-04-13 02:19 | Cardiology Progress Note ---
Subjective DATE OF SERVICE: Apr 12, 2020 s/p Permcath revision by IR No SOB. c/o diffuse pain and anxiety. Objective Last 24 Hour Vital Signs Date Time Temp Pulse Resp B/P (MAP) Pulse Ox O2 Delivery O2 Flow Rate FiO2 04/13/20 00:26 187/102 04/13/20 00:00 98.4 99 22 187/102 (130) 98 04/12/20 21:00 Room Air 04/12/20 20:00 97.9 89 19 172/98 (122) 99 04/12/20 16:15 99.4 101 19 152/93 (112) 95 04/12/20 15:48 100 18 04/12/20 14:11 153/93 04/12/20 12:00 97.5 91 20 153/89 (110) 98 04/12/20 09:04 96 153/93 04/12/20 09:00 Room Air 04/12/20 08:00 98.1 96 19 153/93 (113) 95 04/12/20 05:37 162/90 04/12/20 04:00 97.7 86 20 162/90 (114) 93 ROS: no change from my dictation of 04/11/20 HEENT: normal ENT inspection LUNGS: normal breath sounds, diminished breath sounds, other - left CW PermCath site without bleeding CARDIAC: normal rate, regular rhythm, normal S1 and S2, normal peripheral pulses, gallop/S4 EXTREMITIES: no swelling, No edema Laboratory Tests Test 04/12/20 08:30 White Blood Count 4.6 K/UL (4.8-10.8) L Red Blood Count 3.30 M/UL (4.20-5.40) L Hemoglobin 9.4 G/DL (12.0-16.0) L Hematocrit 29.7 % (37.0-47.0) L Mean Corpuscular Volume 90 FL (80-99) Mean Corpuscular Hemoglobin 28.7 PG (27.0-31.0) Mean Corpuscular Hemoglobin Concent 31.8 G/DL (32.0-36.0) L Red Cell Distribution Width 14.3 % (11.6-14.8) Platelet Count 119 K/UL (150-450) L Mean Platelet Volume 5.0 FL (6.5-10.1) L Neutrophils (%) (Auto) 66.7 % (45.0-75.0) Lymphocytes (%) (Auto) 20.4 % (20.0-45.0) Monocytes (%) (Auto) 8.2 % (1.0-10.0) Eosinophils (%) (Auto) 4.0 % (0.0-3.0) H Basophils (%) (Auto) 0.7 % (0.0-2.0) Sodium Level 138 MMOL/L (136-145) Potassium Level 4.3 MMOL/L (3.5-5.1) Chloride Level 102 MMOL/L (98-107) Carbon Dioxide Level 27 MMOL/L (21-32) Anion Gap 9 mmol/L (5-15) Blood Urea Nitrogen 42 mg/dL (7-18) H Creatinine 11.3 MG/DL (0.55-1.30) H Estimat Glomerular Filtration Rate 4.0 mL/min (>60) Glucose Level 86 MG/DL (74-106) Uric Acid 7.3 MG/DL (2.6-7.2) H Calcium Level 7.6 MG/DL (8.5-10.1) L Phosphorus Level 4.8 MG/DL (2.5-4.9) Magnesium Level 2.3 MG/DL (1.8-2.4) Total Bilirubin 0.4 MG/DL (0.2-1.0) Aspartate Amino Transf (AST/SGOT) 34 U/L (15-37) Alanine Aminotransferase (ALT/SGPT) 10 U/L (12-78) L Alkaline Phosphatase 55 U/L (46-116) C-Reactive Protein, Quantitative < 0.4 mg/dL (0.00-0.90) Pro-B-Type Natriuretic Peptide 72603 pg/mL (0-125) H Total Protein 8.3 G/DL (6.4-8.2) H Albumin 2.7 G/DL (3.4-5.0) L Globulin 5.6 g/dL Albumin/Globulin Ratio 0.5 (1.0-2.7) L Thyroid Stimulating Hormone (TSH) 5.068 uiU/mL (0.358-3.740) Microbiology Date/Time Source Procedure Growth Status 04/11/20 16:45 Nasopharynx SARS-CoV-2 RdRp Gene Assay - Final Complete 04/11/20 16:45 Rectum Received Assessment/Plan Assessment/Plan ESRD Hx cocaine abuse HHD PAC's PermCath malfunction - now s/p revision IRDM Symptom guided pain control HD/UF Titrate anatiHTN regimen Pelletizer regarding risks of cocaine abuse DC plan after dialysis if catheter functioning adequately. Nam Barnett MD Apr 13, 2020 02:19
[2020-04-13] MEDS: DiphenhydrAMINE 50mg/ml Inj IVP PRN ×2 (04:48→21:01)
[2020-04-13] MEDS: HydrALAZINE 25mg tab ORAL PRN ×2 (04:50→16:53)
[2020-04-13 06:51] LABS: BASOPHILS % (AUTO) 1.1 % (0.0-2.0); EOSINOPHILS % (AUTO) 3.1 % (0.0-3.0); HEMATOCRIT 34.7 % (37.0-47.0); HEMOGLOBIN 11.3 G/DL (12.0-16.0); LYMPHOCYTES % (AUTO) 14.3 % (20.0-45.0); MEAN CORPUSCULAR VOLUME 89 FL (80-99); MONOCYTES % (AUTO) 7.2 % (1.0-10.0); NEUTROPHILS % (AUTO) 74.3 % (45.0-75.0); PLATELET COUNT 132 K/UL (150-450); RED BLOOD COUNT 3.89 M/UL (4.20-5.40); RED CELL DISTRIBUTION WIDTH 14.1 % (11.6-14.8); WHITE BLOOD COUNT 5.4 K/UL (4.8-10.8)
--- NOTE | 2020-04-13 06:56 | NUR ---
NURSE NOTES: Per hemodialysis nurse, 3 liters were out after dialysis.
[2020-04-13 07:18] LABS: ALANINE AMINOTRANSFERASE 13 U/L (12-78); ALBUMIN 3.1 G/DL (3.4-5.0); ALBUMIN/GLOBULIN RATIO 0.5 (1.0-2.7); ALKALINE PHOSPHATASE 66 U/L (46-116); ANION GAP 11 mmol/L (5-15); ASPARTATE AMINO TRANSFERASE 26 U/L (15-37); BILIRUBIN,TOTAL 0.5 MG/DL (0.2-1.0); BLOOD UREA NITROGEN 23 mg/dL (7-18); CALCIUM 8.2 MG/DL (8.5-10.1); CARBON DIOXIDE 26 MMOL/L (21-32); CHLORIDE 100 MMOL/L (98-107); CREATININE 6.7 MG/DL (0.55-1.30); PHOSPHORUS 3.1 MG/DL (2.5-4.9); POTASSIUM 4.8 MMOL/L (3.5-5.1); SODIUM 136 MMOL/L (136-145)
--- NOTE | 2020-04-13 07:38 | General Progress Note ---
Assessment/Plan Problem List: (1) Anemia ICD Codes: D64.9 - Anemia, unspecified SNOMED: 619653779 (2) Substance abuse ICD Codes: F19.10 - Other psychoactive substance abuse, uncomplicated SNOMED: 30500995 (3) Hypertension ICD Codes: I10 - Essential (primary) hypertension SNOMED: 42688653 (4) HIV disease ICD Codes: B20 - Human immunodeficiency virus [HIV] disease SNOMED: 71437610 (5) Epileptic seizure, generalized ICD Codes: G40.309 - Generalized idiopathic epilepsy and epileptic syndromes, not intractable, without status epilepticus SNOMED: 03121474 (6) HCV antibody positive ICD Codes: R76.8 - Other specified abnormal immunological findings in serum SNOMED: 346308918 (7) Hemodialysis catheter malfunction ICD Codes: T82.41XA - Breakdown (mechanical) of vascular dialysis catheter, initial encounter SNOMED: 097664087 Status: stable Assessment/Plan: pain rx HD per renal cont bp rx stress ulcer prophylaxis dc planning. Subjective ROS Limited/Unobtainable: No Constitutional: Reports: malaise HEENT: Reports: no symptoms Cardiovascular: Reports: chest pain Respiratory: Reports: no symptoms Gastrointestinal/Abdominal: Reports: no symptoms Genitourinary: Reports: no symptoms Neurologic/Psychiatric: Reports: anxiety, depressed Endocrine: Reports: no symptoms Hematologic/Lymphatic: Reports: anemia Allergies: Coded Allergies: ASPIRIN (Unverified Allergy, Unknown, 01/16/20) IODINE (Verified Allergy, Unknown, 01/07/20) Uncoded Allergies: CONTRAST DYE (Allergy, Unknown, 01/07/20) All Systems: reviewed and negative except above Subjective s/p perm cath replacement. tearful. c/o severe pain in the chest and back. both chronic. no sob. Objective Last 24 Hour Vital Signs Date Time Temp Pulse Resp B/P (MAP) Pulse Ox O2 Delivery O2 Flow Rate FiO2 04/13/20 06:46 175/94 04/13/20 04:50 194/95 04/13/20 04:00 98.2 88 24 171/104 (126) 93 04/13/20 00:26 187/102 04/13/20 00:00 98.4 99 22 187/102 (130) 98 04/12/20 21:00 Room Air 04/12/20 20:00 97.9 89 19 172/98 (122) 99 9/9/20 16:15 99.4 101 19 152/93 (112) 95 04/12/20 15:48 100 18 04/12/20 14:11 153/93 04/12/20 12:00 97.5 91 20 153/89 (110) 98 04/12/20 09:04 96 153/93 04/12/20 09:00 Room Air 04/12/20 08:00 98.1 96 19 153/93 (113) 95 Laboratory Tests 04/12/20 08:30: White Blood Count 4.6L, Red Blood Count 3.30L, Hemoglobin 9.4L, Hematocrit 29.7L , Mean Corpuscular Volume 90, Mean Corpuscular Hemoglobin 28.7, Mean Corpuscular Hemoglobin Concent 31.8L, Red Cell Distribution Width 14.3, Platelet Count 119L, Mean Platelet Volume 5.0L, Neutrophils (%) (Auto) 66.7, Lymphocytes (%) (Auto) 20.4, Monocytes (%) (Auto) 8.2, Eosinophils (%) (Auto) 4.0H, Basophils (%) (Auto) 0.7, Sodium Level 138, Potassium Level 4.3, Chloride Level 102, Carbon Dioxide Level 27, Anion Gap 9, Blood Urea Nitrogen 42H, Creatinine 11.3H, Estimat Glomerular Filtration Rate 4.0, Glucose Level 86, Uric Acid 7.3H, Calcium Level 7.6L, Phosphorus Level 4.8, Magnesium Level 2.3, Total Bilirubin 0.4, Aspartate Amino Transf (AST/SGOT) 34, Alanine Aminotransferase (ALT/SGPT) 10L, Alkaline Phosphatase 55, C-Reactive Protein, Quantitative < 0.4, Pro-B-Type Natriuretic Peptide [id number], Total Protein 8.3H, Albumin 2.7L, Globulin 5.6, Albumin/Globulin Ratio 0.5L, Thyroid Stimulating Hormone (TSH) 5.068H 04/13/20 05:50: White Blood Count 5.4, Red Blood Count 3.89L, Hemoglobin 11.3L, Hematocrit 34.7L , Mean Corpuscular Volume 89, Mean Corpuscular Hemoglobin 29.1, Mean Corpuscular Hemoglobin Concent 32.6, Red Cell Distribution Width 14.1, Platelet Count 132L, Mean Platelet Volume 5.6L, Neutrophils (%) (Auto) 74.3, Lymphocytes (%) (Auto) 14.3L, Monocytes (%) (Auto) 7.2, Eosinophils (%) (Auto) 3.1H, Basophils (%) (Auto) 1.1, Sodium Level 136, Potassium Level 4.8, Chloride Level 100, Carbon Dioxide Level 26, Anion Gap 11, Blood Urea Nitrogen 23H, Creatinine 6.7H, Estimat Glomerular Filtration Rate 7.5, Glucose Level 86, Calcium Level 8.2L, Phosphorus Level 3.1, Magnesium Level 2.0, Total Bilirubin 0.5, Aspartate Amino Transf (AST/SGOT) 26, Alanine Aminotransferase (ALT/SGPT) 13, Alkaline Phosphatase 66, C-Reactive Protein, Quantitative < 0.4, Total Protein 9.4H, Albumin 3.1L, Globulin 6.3, Albumin/Globulin Ratio 0.5L Height (Feet): 5 Height (Inches): 8.00 Weight (Pounds): 151 General Appearance: WD/WN, alert, mild distress EENT: normal ENT inspection Neck: supple Cardiovascular: normal rate, regular rhythm Respiratory/Chest: chest wall non-tender, lungs clear, normal breath sounds, no respiratory distress Abdomen: normal bowel sounds, non tender, soft, no organomegaly Edema: no edema noted Arm (L), no edema noted Arm (R) Neurologic: alert, responsive Michael Peralta MD Apr 13, 2020 07:38
--- NOTE | 2020-04-13 07:39 | NUR ---
NURSE NOTES: Received report from Ap Tenorio RN. Patient in supine position,s bed in lowest position, call light within reach, side rails up x 3, patient c/o pain, treated with MD Ana notified per Ap Tenorio RN.
--- NOTE | 2020-04-13 07:43 | NUR ---
NURSE HAND-OFF: Important Events on Shift:Hemodialysis,Pain mgt, Increased BP Patient Status: Diet: Renal Pending Orders: labs Pending Results/Labs:AM labs Pending MD notification: Latest Vital Signs: Temperature 98.2 , Pulse 88 , B/P 175 /94 , Respiratory Rate 24 , O2 SAT 93 , Room Air, O2 Flow Rate . Vital Sign Comment: Latest Espinoza Fall Score: 45 Fall Risk: High Risk Safety Measures: Call light Within Reach, Bed Alarm Zone 1, Side Rails Side Rails x2, Bed position Low and Locked. Fall Precautions: Patient Fall Education Report given to Maurice Vegas.
[2020-04-13] MEDS ORDERED: HYDROmorphone 1mg/ml Carpuject IVP SCH (07:45)
[2020-04-13] MEDS: Renvela 800mg Pkt NG SCH ×3 (08:42→18:00)
[2020-04-13] MEDS: Docusate 100mg cap ORAL SCH ×2 (08:43→18:00)
--- NOTE | 2020-04-13 09:25 | Nephrology Progress Note ---
Assessment/Plan Problem List: (1) Hemodialysis catheter malfunction (2) ESRD (end stage renal disease) on dialysis (3) Substance abuse (4) Hypertension (5) HIV disease (6) HCV antibody positive Assessment 1. Dialysis catheter malfunction and pain. 2. End-stage renal disease. 3. Acute on chronic diastolic congestive heart failure. 4. Hypertensive heart disease with labile blood pressure. 5. Accelerated atherosclerosis. 6. History of cocaine abuse. 7. HIV positive. 8. Hepatitis C positive. 9. Hypothyroidism. 10. Diabetes mellitus with complications. Plan April 13: Dialysis catheter was fixed by interventional radiology. Patient was dialyzed early this morning. On examination patient is stable with stable blood pressure. Medication list reviewed. Blood pressure medication adjusted. Today's labs reviewed. Patient stable from renal standpoint of view. If discharged continue dialysis Friday at the [facility] [place]. Subjective ROS Limited/Unobtainable: No Constitutional: Reports: malaise Objective Objective Last 24 Hour Vital Signs Date Time Temp Pulse Resp B/P (MAP) Pulse Ox O2 Delivery O2 Flow Rate FiO2 04/13/20 08:42 88 160/87 04/13/20 08:00 98.1 88 20 160/87 (111) 98 04/13/20 06:46 175/94 04/13/20 04:50 194/95 04/13/20 04:00 98.2 88 24 171/104 (126) 93 04/13/20 00:26 187/102 04/13/20 00:00 98.4 99 22 187/102 (130) 98 04/12/20 21:00 Room Air 04/12/20 20:00 97.9 89 19 172/98 (122) 99 04/12/20 16:15 99.4 101 19 152/93 (112) 95 04/12/20 15:48 100 18 04/12/20 14:11 153/93 04/12/20 12:00 97.5 91 20 153/89 (110) 98 Current Medications Medications (Trade) Dose Ordered Sig/Rochelle Route PRN Reason Start Time Stop Time Status Last Admin Dose Admin Acetaminophen/ Hydrocodone Bitart ([place] 5/325) 1 tab Q6H PRN ORAL Moderate Pain 04/11/20 21:45 04/18/20 21:44 04/13/20 06:47 Amlodipine Besylate (Norvasc) 10 mg DAILY ORAL 04/12/20 09:00 05/12/20 08:59 04/13/20 08:42 Cefazolin Sodium 1 gm/Sodium Chloride 55 ml @ 110 mls/hr Q24H IVP 04/13/20 16:00 04/20/20 15:59 Diphenhydramine HCl (Benadryl) 25 mg DAILYPRN PRN IVP during dialysis itching 04/12/20 15:45 05/12/20 15:44 04/13/20 04:48 Docusate Sodium (Colace) 100 mg TWICE A DAY ORAL 04/12/20 09:00 05/12/20 08:59 04/13/20 08:43 Folic Acid (Folate) 1 mg DAILY ORAL 04/12/20 15:45 05/12/20 15:44 04/13/20 08:42 Hydralazine HCl (Apresoline) 25 mg Q6H PRN ORAL SBP above 160 04/11/20 21:36 07/10/20 21:35 04/13/20 04:50 Hydralazine HCl (Apresoline) 50 mg Q8HR ORAL 04/11/20 22:00 07/10/20 21:59 04/13/20 06:46 Hydromorphone HCl (Dilaudid) 1 mg BEDTIME PRN IVP Severe Pain 04/11/20 21:45 04/18/20 21:44 04/12/20 20:03 Hydroxyzine HCl (Atarax) 25 mg Q8H ORAL 04/12/20 18:15 05/11/20 22:14 04/12/20 18:01 Levothyroxine Sodium (Synthroid) 75 mcg DAILY@0630 ORAL 04/13/20 06:30 05/13/20 06:29 04/13/20 06:46 Pantoprazole (Protonix) 40 mg EVERY 12 HOURS ORAL 04/12/20 21:00 05/12/20 20:59 04/13/20 08:42 Sevelamer Carbonate (Renvela) 1,600 mg TID NG 04/12/20 09:00 07/11/20 08:59 04/13/20 08:42 Laboratory Tests 04/13/20 05:50: White Blood Count 5.4, Red Blood Count 3.89L, Hemoglobin 11.3L, Hematocrit 34.7L , Mean Corpuscular Volume 89, Mean Corpuscular Hemoglobin 29.1, Mean Corpuscular Hemoglobin Concent 32.6, Red Cell Distribution Width 14.1, Platelet Count 132L, Mean Platelet Volume 5.6L, Neutrophils (%) (Auto) 74.3, Lymphocytes (%) (Auto) 14.3L, Monocytes (%) (Auto) 7.2, Eosinophils (%) (Auto) 3.1H, Basophils (%) (Auto) 1.1, Sodium Level 136, Potassium Level 4.8, Chloride Level 100, Carbon Dioxide Level 26, Anion Gap 11, Blood Urea Nitrogen 23H, Creatinine 6.7H, Estimat Glomerular Filtration Rate 7.5, Glucose Level 86, Calcium Level 8.2L, Phosphorus Level 3.1, Magnesium Level 2.0, Total Bilirubin 0.5, Aspartate Amino Transf (AST/SGOT) 26, Alanine Aminotransferase (ALT/SGPT) 13, Alkaline Phosphatase 66, C-Reactive Protein, Quantitative < 0.4, Total Protein 9.4H, Albumin 3.1L, Globulin 6.3, Albumin/Globulin Ratio 0.5L Height (Feet): 5 Height (Inches): 8.00 Weight (Pounds): 151 General Appearance: no apparent distress Cardiovascular: normal rate Respiratory/Chest: lungs clear Abdomen: soft Jack Pryor MD Apr 13, 2020 09:25
--- NOTE | 2020-04-13 10:39 | Surgery Progress Note ---
Surgery Progress Note Subjective Additional Comments HD cath tunneled replaced feels better plan HD as per renal Objective Last 24 Hour Vital Signs Date Time Temp Pulse Resp B/P (MAP) Pulse Ox O2 Delivery O2 Flow Rate FiO2 04/13/20 09:08 98.1 04/13/20 08:42 88 160/87 04/13/20 08:00 98.1 88 20 160/87 (111) 98 04/13/20 06:46 175/94 04/13/20 04:50 194/95 04/13/20 04:00 98.2 88 24 171/104 (126) 93 04/13/20 00:26 187/102 04/13/20 00:00 98.4 99 22 187/102 (130) 98 04/12/20 21:00 Room Air 04/12/20 20:00 97.9 89 19 172/98 (122) 99 04/12/20 16:15 99.4 101 19 152/93 (112) 95 04/12/20 15:48 100 18 04/12/20 14:11 153/93 04/12/20 12:00 97.5 91 20 153/89 (110) 98 Dressing: dry Wound: clean Cardiovascular: RSR Respiratory: clear Abdomen: soft, non-tender, present bowel sounds Extremities: no edema, no tenderness, no cyanosis Laboratory Tests Test 04/13/20 05:50 White Blood Count 5.4 K/UL (4.8-10.8) Red Blood Count 3.89 M/UL (4.20-5.40) L Hemoglobin 11.3 G/DL (12.0-16.0) L Hematocrit 34.7 % (37.0-47.0) L Mean Corpuscular Volume 89 FL (80-99) Mean Corpuscular Hemoglobin 29.1 PG (27.0-31.0) Mean Corpuscular Hemoglobin Concent 32.6 G/DL (32.0-36.0) Red Cell Distribution Width 14.1 % (11.6-14.8) Platelet Count 132 K/UL (150-450) L Mean Platelet Volume 5.6 FL (6.5-10.1) L Neutrophils (%) (Auto) 74.3 % (45.0-75.0) Lymphocytes (%) (Auto) 14.3 % (20.0-45.0) L Monocytes (%) (Auto) 7.2 % (1.0-10.0) Eosinophils (%) (Auto) 3.1 % (0.0-3.0) H Basophils (%) (Auto) 1.1 % (0.0-2.0) Sodium Level 136 MMOL/L (136-145) Potassium Level 4.8 MMOL/L (3.5-5.1) Chloride Level 100 MMOL/L (98-107) Carbon Dioxide Level 26 MMOL/L (21-32) Anion Gap 11 mmol/L (5-15) Blood Urea Nitrogen 23 mg/dL (7-18) H Creatinine 6.7 MG/DL (0.55-1.30) H Estimat Glomerular Filtration Rate 7.5 mL/min (>60) Glucose Level 86 MG/DL (74-106) Calcium Level 8.2 MG/DL (8.5-10.1) L Phosphorus Level 3.1 MG/DL (2.5-4.9) Magnesium Level 2.0 MG/DL (1.8-2.4) Total Bilirubin 0.5 MG/DL (0.2-1.0) Aspartate Amino Transf (AST/SGOT) 26 U/L (15-37) Alanine Aminotransferase (ALT/SGPT) 13 U/L (12-78) Alkaline Phosphatase 66 U/L (46-116) C-Reactive Protein, Quantitative < 0.4 mg/dL (0.00-0.90) Total Protein 9.4 G/DL (6.4-8.2) H Albumin 3.1 G/DL (3.4-5.0) L Globulin 6.3 g/dL Albumin/Globulin Ratio 0.5 (1.0-2.7) L Plan Problems: (1) Anemia (2) ESRD (end stage renal disease) on dialysis (3) Sick sinus syndrome (4) Hyperkalemia (5) Substance abuse (6) Weakness (7) Hypertension (8) HIV disease (9) Epileptic seizure, generalized (10) Open wound of chest wall (11) HCV antibody positive (12) Hemodialysis catheter malfunction Assessment & Plan: Patient with manipulation of her left chest wall permacath that was placed on prior admission. States she scratches a lot and recently may have pulled it out. Chest x-ray reviewed imaging identified catheter malposition. Care plan discussed with radiology interventional which will plan on new placement today as necessary. Catheter evaluated by myself personally at bedside and though she does have aspiration And flushing both ports it is decrease given the location potential If necessary emergently can use lines for meds or dialysis Will await placement labs noted Thank you for let me participate in patient's care will follow with recommendations new HD line placed cxr noted HD as per renal Deon Crowe Apr 13, 2020 10:39
--- NOTE | 2020-04-13 12:10 | NUR ---
NURSE NOTES: Left message with Lisandra at Dr. Barnett's office requesting pain medication for patient.
[2020-04-13] MEDS ORDERED: FOLIC ACID1 MG ORAL (13:30)
[2020-04-13] MEDS ORDERED: ceFAZolin sod 1 GM in NS 55 ML IVP SCH (16:00)
--- NOTE | 2020-04-13 17:58 | Cardiology Progress Note ---
Subjective DATE OF SERVICE: Apr 13, 2020 s/p Permcath revision by IR No SOB. c/o diffuse pain - asks for dilaudid routinely Had uncomplicated HD/UF session today Increased BP trend noted; topical clonidine added. Objective Last 24 Hour Vital Signs Date Time Temp Pulse Resp B/P (MAP) Pulse Ox O2 Delivery O2 Flow Rate FiO2 04/13/20 16:53 163/89 04/13/20 16:00 99.0 88 20 163/89 (113) 98 04/13/20 14:38 169/98 04/13/20 12:00 98.3 97 20 169/98 (121) 97 04/13/20 11:49 160/87 04/13/20 09:08 98.1 04/13/20 09:00 Room Air 04/13/20 08:42 88 160/87 04/13/20 08:00 98.1 88 20 160/87 (111) 98 04/13/20 06:46 175/94 04/13/20 04:50 194/95 04/13/20 04:00 98.2 88 24 171/104 (126) 93 04/13/20 00:26 187/102 04/13/20 00:00 98.4 99 22 187/102 (130) 98 04/12/20 21:00 Room Air 04/12/20 20:00 97.9 89 19 172/98 (122) 99 ROS: no change from my dictation of 04/11/20 HEENT: normal ENT inspection LUNGS: normal breath sounds, diminished breath sounds, other - left CW PermCath site without bleeding CARDIAC: normal rate, regular rhythm, normal S1 and S2, normal peripheral pulses, gallop/S4 EXTREMITIES: no swelling, No edema Laboratory Tests Test 04/13/20 05:50 White Blood Count 5.4 K/UL (4.8-10.8) Red Blood Count 3.89 M/UL (4.20-5.40) L Hemoglobin 11.3 G/DL (12.0-16.0) L Hematocrit 34.7 % (37.0-47.0) L Mean Corpuscular Volume 89 FL (80-99) Mean Corpuscular Hemoglobin 29.1 PG (27.0-31.0) Mean Corpuscular Hemoglobin Concent 32.6 G/DL (32.0-36.0) Red Cell Distribution Width 14.1 % (11.6-14.8) Platelet Count 132 K/UL (150-450) L Mean Platelet Volume 5.6 FL (6.5-10.1) L Neutrophils (%) (Auto) 74.3 % (45.0-75.0) Lymphocytes (%) (Auto) 14.3 % (20.0-45.0) L Monocytes (%) (Auto) 7.2 % (1.0-10.0) Eosinophils (%) (Auto) 3.1 % (0.0-3.0) H Basophils (%) (Auto) 1.1 % (0.0-2.0) Sodium Level 136 MMOL/L (136-145) Potassium Level 4.8 MMOL/L (3.5-5.1) Chloride Level 100 MMOL/L (98-107) Carbon Dioxide Level 26 MMOL/L (21-32) Anion Gap 11 mmol/L (5-15) Blood Urea Nitrogen 23 mg/dL (7-18) H Creatinine 6.7 MG/DL (0.55-1.30) H Estimat Glomerular Filtration Rate 7.5 mL/min (>60) Glucose Level 86 MG/DL (74-106) Calcium Level 8.2 MG/DL (8.5-10.1) L Phosphorus Level 3.1 MG/DL (2.5-4.9) Magnesium Level 2.0 MG/DL (1.8-2.4) Total Bilirubin 0.5 MG/DL (0.2-1.0) Aspartate Amino Transf (AST/SGOT) 26 U/L (15-37) Alanine Aminotransferase (ALT/SGPT) 13 U/L (12-78) Alkaline Phosphatase 66 U/L (46-116) C-Reactive Protein, Quantitative < 0.4 mg/dL (0.00-0.90) Total Protein 9.4 G/DL (6.4-8.2) H Albumin 3.1 G/DL (3.4-5.0) L Globulin 6.3 g/dL Albumin/Globulin Ratio 0.5 (1.0-2.7) L Microbiology Date/Time Source Procedure Growth Status 04/11/20 16:45 Nasopharynx SARS-CoV-2 RdRp Gene Assay - Final Complete 04/11/20 16:45 Rectum Received Assessment/Plan Assessment/Plan ESRD Hx cocaine abuse HHD PAC's PermCath malfunction - now s/p revision IRDM Narcotic-analgesic dependence Symptom guided pain control HD/UF Maintain current advanced antiHTN regimen Transmission Builder regarding risks of cocaine abuse DC plan today, as catheter functioning adequately. Nam Barnett MD Apr 13, 2020 17:58
--- NOTE | 2020-04-13 18:14 | History and Physical Report ---
DATE OF ADMISSION: 04/11/2020 CHIEF COMPLAINT: Dislodged dialysis catheter. HISTORY OF PRESENT ILLNESS: The patient is a 69-year-old female. She has a prior history of HIV, end-stage renal disease, hypertension, hepatitis C, substance abuse, hypothyroidism, conduction system disease. 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 The patient complains of chest pain. The pain is chronic. She denies any fevers or chills. She has had no cough. PAST MEDICAL HISTORY: Significant for the above, history of line sepsis. CURRENT MEDICATIONS: Reconciled and reviewed. ALLERGIES: Include iodine, contrast, and aspirin. FAMILY HISTORY: Noncontributory. SOCIAL HISTORY: The patient has a history of substance abuse and smoking. REVIEW OF SYSTEMS: GENERAL: No fevers or chills. HEENT: No headaches or visual changes. CARDIOPULMONARY: Positive chest pain. No shortness of breath. GASTROINTESTINAL: No nausea or vomiting. GENITOURINARY: No urgency or frequency. MUSCULOSKELETAL: No joint pain or swelling. NEUROLOGIC: No evidence of seizures. PHYSICAL EXAMINATION: VITAL SIGNS: Temperature 98, pulse 88, respirations 20, and blood pressure 163/89. GENERAL: The patient is a well-developed female in no apparent distress. She is tearful and crying, but awake and alert. HEENT: Head is normocephalic and atraumatic. Oropharynx is clear. Mucous membranes are moist. NECK: Supple. HEART: Regular rate and rhythm. No murmurs, rubs, or gallops. LUNGS: Clear to auscultation bilaterally. ABDOMEN: Soft, nontender, nondistended. EXTREMITIES: Without clubbing, cyanosis, or edema. LABORATORY AND DIAGNOSTIC DATA: White count 4, hemoglobin 10, platelets of 137. Sodium 136, potassium 4.8. ASSESSMENT: This is a 69-year-old female admitted with complaints of anemia, dislodged PermCath. PLAN: Vascular consultation for placement of PermCath. Renal consultation for hemodialysis. Cardiology clearance for procedure. Continue outpatient cardiac regimen. Pain control as needed. We will try to avoid narcotics if possible. Continue thyroid replacement therapy. DVT and stress ulcer prophylaxis. Michael Peralta M.D. DR: Yasmeen JOB#: [id number] CC:
--- NOTE | 2020-04-13 19:15 | NUR ---
NURSE HAND-OFF: Important Events on Shift:Patient is waiting for ambulance. Discharged. Patient Status: Stable Diet: Renal Pending Orders: N/A Pending Results/Labs:N/A Pending MD notification:N/A Latest Vital Signs: Temperature 99.0 , Pulse 88 , B/P 163 /89 , Respiratory Rate 20 , O2 SAT 98 , Room Air, O2 Flow Rate . Vital Sign Comment: Latest Espinoza Fall Score: 45 Fall Risk: High Risk Safety Measures: Call light Within Reach, Bed Alarm Zone 1, Side Rails Side Rails x2, Bed position Low and Locked. Fall Precautions: Patient Fall Education Report given to Donal Adrian RN.
--- NOTE | 2020-04-13 19:55 | NUR ---
NURSE NOTES: Spoke with patient, made aware of eta draft roller picker. 30 min. Patient upset, noted saying that she was supposed to go home hours ago. Informed charge nurse. Explained to the patient the situation. Will follow up.
--- NOTE | 2020-04-13 20:11 | NUR ---
NURSE NOTES: Dr. Barnett called, explained to the doctor regarding Ambulance bean picker has been late, was instructed to cancel and discharge patient for tomorrow at 9 am 04-14-2020. Will inform charge nurse. Will call ambulance of change of bean picker time
[2020-04-13] MEDS: HYDROmorphone 1mg/ml Carpuject IVP PRN (20:18)
--- NOTE | 2020-04-13 22:00 | NUR ---
NURSE NOTES: Patient was given Po medications. Bed in low and locked position, provided safe environment. Call light is at bedside. Kept clean and comfortable.
[2020-04-14] MEDS: HydrOXYzine tab 25mg tab ORAL SCH ×2 (02:15→10:15)
[2020-04-14 04:00] VITALS: BP 158/98
[2020-04-14] MEDS: HydrALAZINE 50mg tab ORAL SCH (06:06)
--- NOTE | 2020-04-14 07:24 | NUR ---
NURSE HAND-OFF: Important Events on Shift:Wasn't d/c last night Patient Status: WNL Diet: Renal Diet Pending Orders: Pending Results/Labs: Pending MD notification: Latest Vital Signs: Temperature 98.6 , Pulse 89 , B/P 158 /98 , Respiratory Rate 18 , O2 SAT 94 , Room Air, O2 Flow Rate . Vital Sign Comment: WNL Latest Espinoza Fall Score: 45 Fall Risk: High Risk Safety Measures: Call light Within Reach, Bed Alarm Zone 1, Side Rails Side Rails x2, Bed position Low and Locked. Fall Precautions: Patient Fall Education Report given to MARTIN Maitas.
--- NOTE | 2020-04-14 07:35 | NUR ---
NURSE NOTES: Received report from MARTIN Mans[place]. Patient is received lying in hospital bed, AAO x4, able to make needs known, on RA in no apparent respiratory distress. Nonambulatory, uses bedpan. Pt is continent x 2. Pt also has c/o pain on her back and asks for pain medication. Last dose of [place] given at 0730 this AM. CLARITZA pIV 22 g saline lock noted. L upper chest permacath in place. Last HD was yesterday where paitent had 3L out. Bed locked and in lowest position, call light within reach. Plan for DC home today at 0900 olive picker by [facility].
[2020-04-14] MEDS: HYDROcodone/Acetamin 5/325 tab ORAL PRN (07:37)
[2020-04-14 08:00] VITALS: BP 124/85
[2020-04-14 08:59] VITALS: BP 124/85
[2020-04-14] MEDS: Renvela 800mg Pkt NG SCH (08:59)
[2020-04-14] MEDS: Docusate 100mg cap ORAL SCH (08:59)
--- NOTE | 2020-04-14 09:18 | NUR ---
NURSE NOTES: Called [facility] adn they stated they would pear picker in 15 minutes.
--- NOTE | 2020-04-14 10:20 | NUR ---
NURSE NOTES: Patient is in stable condition for DC home today. [facility] picked patient up. shortage worker David removed pt's IV. Wound photos taken and patient's belongings list signed since planned DC yesterday.
--- NOTE | 2020-04-14 11:44 | Discharge Summary ---
DATE OF ADMISSION: 04/11/2020 DATE OF DISCHARGE: 04/14/2020 ADMISSION DIAGNOSES: 1. Dislodged hemodialysis catheter. 2. Hepatitis C. 3. HIV. 4. End-stage renal disease. 5. History of conduction system disease. 6. Hypertension. 7. Hypothyroidism. 8. GERD. DISCHARGE DIAGNOSES: 1. Dislodged hemodialysis catheter. 2. Hepatitis C. 3. HIV. 4. End-stage renal disease. 5. History of conduction system disease. 6. Hypertension. 7. Hypothyroidism. 8. GERD. HOSPITAL COURSE: The patient was admitted with a dislodged hemodialysis catheter. She had missed her dialysis session. She was admitted and surgical consultation was obtained. The patient underwent uncomplicated replacement of her PermCath. She was dialyzed with no issues. Her complaints were of chronic pain, which she received IV pain medications. On discharge, she was stable. She will be discharged home and follow up in the office in one to two weeks. DISCHARGE MEDICATIONS: Please see discharge medication list for discharge medications. DIET: cardiac renal diet. ACTIVITIES: Ad-arie. Michael Peralta M.D. DR: KAVEH JOB#: [id number] CC:
--- NOTE | 2020-04-14 21:41 | Cardiology Progress Note ---
Subjective DATE OF SERVICE: Apr 14, 2020 Discharge postponed, as patient could not get home late at night. s/p Permcath revision by IR No SOB. c/o diffuse pain - asks for dilaudid routinely, but comfortable without it. Had uncomplicated HD/UF session yesterday Increased BP trend was noted; topical clonidine added with good response. Objective Last 24 Hour Vital Signs Date Time Temp Pulse Resp B/P (MAP) Pulse Ox O2 Delivery O2 Flow Rate FiO2 04/14/20 08:59 79 124/85 04/14/20 08:00 97.7 79 18 124/85 (98) 97 04/14/20 06:06 158/98 04/14/20 04:00 98.6 89 18 158/98 (118) 94 04/13/20 23:47 98.8 80 20 152/82 (105) 97 ROS: no change from my dictation of 04/11/20 HEENT: normal ENT inspection LUNGS: normal breath sounds, diminished breath sounds, other - left CW PermCath site without bleeding CARDIAC: normal rate, regular rhythm, normal S1 and S2, normal peripheral pulses, gallop/S4 EXTREMITIES: no swelling, No edema Microbiology Date/Time Source Procedure Growth Status 04/12/20 16:45 Rectum - Final NO CARBAPENEM-RESISTANT ENTEROBACTERI... Complete Assessment/Plan Assessment/Plan ESRD Hx cocaine abuse HHD PAC's PermCath malfunction - now s/p revision IRDM Narcotic-analgesic dependence Symptom guided pain control HD/UF Maintain current advanced antiHTN regimen Lead Software Tester regarding risks of cocaine abuse DC plan today, as catheter functioning adequately. Nam Barnett MD Apr 14, 2020 21:41
== END 2020-04-14 11:29 | disposition home or self-care (01) ==
LOC: EMR 14:55 → INTOOBSV 15:52 → 4E 15:52 → EDBEDREQ 18:45 → 4E 20:16
DX: T82.42XA Displacement of vascular dialysis catheter, initial encounter (principal); N18.6 End stage renal disease; I50.33 Acute on chronic diastolic (congestive) heart failure; I13.2 Hypertensive heart and chronic kidney disease with heart failure and with stage 5 chronic kidney disease, or end stage renal disease; Y84.1 Kidney dialysis as the cause of abnormal reaction of the patient, or of later complication, without mention of misadventure at the time of the procedure; Z88.6 Allergy status to analgesic agent; Z91.041 Radiographic dye allergy status; B19.20 Unspecified viral hepatitis C without hepatic coma; E03.9 Hypothyroidism, unspecified; K21.9 Gastro-esophageal reflux disease without esophagitis; F14.10 Cocaine abuse, uncomplicated; E11.9 Type 2 diabetes mellitus without complications
CPT/HCPCS: 36415 ×3; 36581; 71045; 76000; 80053 ×3; 83735 ×2; 83880 ×2; 84100 ×2; 84443; 84550; 85025 ×3; 85610; 85730; 86140 ×2; 86850; 86900; 86901; 87081 ×4; 93005; 96374 ×3; 96375; 96376 ×3; 99285; G0378 ×2; J0690 ×2; J1170 ×3; J1200; J1644 ×2; J2270; J3010; U0002

== ENCOUNTER 2020-04-24 09:08 | Observation (INO) | payer MEDICARE, MEDICAID ==
[~2020-04-24] VITALS: Ht 165.1 cm; Wt 70.5 kg
[~2020-04-24 09:08] MED LIST changes: +FOLIC ACID1 MG ORAL
--- NOTE | 2020-04-24 09:17 | NUR ---
ED Nurse Note: Pt arrived with RA 68 due to bilateral flank pain with vomiting from home x 1 day. pt has a upper left chest dialysis double lumen cath. Pt dialysis schedule is and she reports she has not missed an appointment.
[2020-04-24 09:20] VITALS: BP 177/106
--- NOTE | 2020-04-24 09:38 | NUR ---
ED Nurse Note: Pt forfeited 4 bags of medication, informed CRN. Medication was disposed per protocol.
[2020-04-24] MEDS ORDERED: Morphine Sulfate 4mg/ml Inj (IV USE ONLY) IVP ONE ×2 (09:45→14:00)
--- NOTE | 2020-04-24 10:19 | NUR ---
ED Nurse Note: Pt taken to CT on juan manuel
[2020-04-24 10:22] LABS: HEMATOCRIT 28.3 % (37.0-47.0); HEMOGLOBIN 9.2 G/DL (12.0-16.0); MEAN CORPUSCULAR VOLUME 88 FL (80-99); PLATELET COUNT 149 K/UL (150-450); RED BLOOD COUNT 3.21 M/UL (4.20-5.40); RED CELL DISTRIBUTION WIDTH 14.4 % (11.6-14.8); WHITE BLOOD COUNT 3.2 K/UL (4.8-10.8)
[2020-04-24 10:30] LABS: CALCIUM 8.2 MG/DL (8.5-10.1); POTASSIUM 4.3 MMOL/L (3.5-5.1)
[2020-04-24 10:33] LABS: ALBUMIN 3.2 G/DL (3.4-5.0); ALBUMIN/GLOBULIN RATIO 0.5 (1.0-2.7); BILIRUBIN,TOTAL 0.5 MG/DL (0.2-1.0)
--- NOTE | 2020-04-24 10:34 | NUR ---
ED Nurse Note: Pt returned from CT
[2020-04-24] MEDS ORDERED: LORazepam Inj 2mg/ml 1ml IV ONE (11:00)
[2020-04-24 11:05] VITALS: BP 165/110
--- NOTE | 2020-04-24 11:25 | Diagnostic Imaging Report ---
Indication: Abdominal pain Technique: Spiral acquisitions obtained through the abdomen and pelvis. No oral contrast utilized, per emergency room physician request No IV contrast utilized, per emergency room physician request.. Multiplanar reconstructions were generated. Total dose length product 335 mGycm. CTDIvol(s) 11 mGy. Dose reduction achieved using automated exposure control Comparison: 01/19/2020 Findings: Lack of enteric contrast limits assessment of the GI tract. There is very mild distention of the rectum with feces. There are colonic diverticula. No evidence of diverticulitis. The appendix is normal. There is no small bowel distention. No free or loculated intraperitoneal gas demonstrated. There is a small amount of free intraperitoneal fluid noted, adjacent to the tip of the right hepatic lobe and in the pelvis, slightly increased from the prior exam. Lack of IV contrast limits assessment of the solid organs. The gallbladder contains gallstones. The liver is grossly unremarkable. No biliary ductal dilatation. The pancreas is unremarkable. The spleen is enlarged, measuring 14.7 cm long axis dimension. The adrenals are unremarkable. The kidneys are atrophic. Renal cysts are again demonstrated bilaterally. A rim calcified lesion is again demonstrated in the left lower pole. No renal or ureteral calculi. The bladder is nondistended. There is a 6.7 cm right adnexal cystic mass. This is larger than on the prior study where it measured 5.5 cm. The uterus and left adnexal region are unremarkable. There are prominent periaortic and pericaval nodes again demonstrated, equivocally slightly more prominent than on the previous study. Prominent bilateral iliac chain nodes are also again demonstrated. The included lung bases demonstrate a mosaic perfusion pattern. There is some focal thickening of versus focal fluid within the minor fissure. There are posterior dependent atelectatic changes. The tip of a dialysis catheter is again demonstrated in the right atrium. The heart is enlarged. Impression: Limited assessment of the GI tract, due to lack of enteric contrast administration Small amount of ascites fluid, increased from the prior study Mild rectal distention with feces. Early rectal fecal impaction possible Enlarging right adnexal cystic mass. If this has not been previously worked up, gynecological evaluation should be considered Splenomegaly Increasingly prominent periaortic and pericaval nodes Cardiac Basilar pulmonary parenchymal mosaic perfusion pattern, nonspecific but likely on the basis of mild pulmonary edema Focal pleural thickening versus fluid within the minor fissure Cholelithiasis, also previously reported Diverticulosis. No evidence of diverticulitis Other findings as noted, including stable calcified left lower pole renal lesion, bilateral renal cysts, dialysis catheter The CT scanner at [facility] is accredited by the [employer] and the scans are performed using protocols designed to limit radiation exposure to as low as reasonably achievable to attain images of sufficient resolution adequate for diagnostic evaluation.
--- NOTE | 2020-04-24 11:43 | NUR ---
ED Nurse Note: Pt persistently requesting for morphine and ativan
--- NOTE | 2020-04-24 11:45 | NUR ---
ED Nurse Note: Pt states that she does not produce urine.
--- NOTE | 2020-04-24 12:27 | NUR ---
ED Nurse Note: Pt is in bed asleep
[2020-04-24 13:07] VITALS: BP 182/94
--- NOTE | 2020-04-24 13:29 | NUR ---
ED Nurse Note: Renal diet ordered for pt.
--- NOTE | 2020-04-24 13:43 | NUR ---
ED Nurse Note: Pt O2 dropping betwee 85-90% on room air. pt placed on 2L nasal cannula.
--- NOTE | 2020-04-24 14:12 | NUR ---
ED Nurse Note: Telephone report given to JOHN Browning for continuity of care. swabs sent
--- NOTE | 2020-04-24 14:14 | NUR ---
ED Nurse Note: PT REFUSED CRE
[2020-04-24] MEDS ORDERED: WELLBUTRIN SR200 MG ORAL (14:43)
--- NOTE | 2020-04-24 15:06 | NUR ---
TRANSFER TO FLOOR: Patient transferred to MS as ordered, per ERMD. Report given to JOHN MORGAN. Belongings and medications given to PT.
--- NOTE | 2020-04-24 15:44 | NUR ---
NURSE NOTES: Report received by Nam, charge nurse from Jonna SALAZAR. Patient admitted from ER via juan manuel, AxOx4, still with some discomfort in abdomen, given IV pain meds in the ER. Patient on 2lpm via MD with no signs of distress. Perma cath noted on left upper chest, patent and intact with consent to use for medication as per nurse. Pt is continent and ambulatory. Skin is intact. Contact precautions initiated. MD called for admission orders. Bed low and locked, siderails up x2, call light placed within reach and instructed to call nurse for assistance. Will continue to monitor.
--- NOTE | 2020-04-24 15:47 | Emergency Room Report ---
History of Present Illness General Chief Complaint: Abdominal Pain Source: Patient Present Illness HPI 69-year-old female presents ED complaining of abdominal pain. Brought in by EMS from home. Pain x1 day. Diffuse. 10 out of 10. Nonradiating. Notes nausea, denies vomiting. States she has had similar pain in the past. History of end- stage renal disease on dialysis. Gets dialysis Friday. States she is compliant with her dialysis. Denies chest pain or shortness of breath. No other aggravating relieving factors. Denies any other associated symptoms Allergies: Coded Allergies: ASPIRIN (Unverified Allergy, Unknown, 01/16/20) IODINE (Verified Allergy, Unknown, 01/07/20) Uncoded Allergies: CONTRAST DYE (Allergy, Unknown, 01/07/20) NSAID (Allergy, Unknown, 04/24/20) COVID-19 Screening Contact w/high risk pt: No Recent Travel to affected area: No Experienced COVID-19 symptoms?: No COVID-19 symptoms experienced: Cough, Flu-Like Symptoms COVID-19 Testing performed NEWS SPECIALIST: No Patient History Past Medical History: DM, HTN, renal disease, dialysis Past Surgical History: none Pertinent Family History: none Social History: Denies: smoking, alcohol use, drug use Now: No Immunizations: UTD Reviewed Nursing Documentation: PMH: Agreed; PSxH: Agreed Nursing Documentation-PMH Past Medical History: No History, Except For Hx Cardiac Problems: Yes Hx Hypertension: Yes Hx Diabetes: Yes - Blood sugar currently within normal limits Hx Cancer: No Hx Gastrointestinal Problems: Yes Hx Dialysis: Yes - brady Hx Neurological Problems: No Hx Seizures: No - denies Hx Epilepsy: No Hx Weakness: Yes Hx Fatigue: Yes Hx Neurologic Surgery: No Hx Brain Shunt: No Review of Systems All Other Systems: negative except mentioned in HPI Physical Exam Vital Signs Date Time Temp Pulse Resp B/P (MAP) Pulse Ox O2 Delivery O2 Flow Rate FiO2 04/24/20 09:05 97.9 86 20 177/106 (129) 98 Room Air 04/24/20 15:05 2.0 Sp02 EP Interpretation: reviewed, normal General Appearance: no apparent distress, alert, GCS 15, non-toxic Head: normocephalic, atraumatic Eyes: bilateral eye normal inspection, bilateral eye PERRL ENT: hearing grossly normal, normal pharynx, no angioedema, normal voice Neck: full range of motion, supple/symm/no masses Respiratory: chest non-tender, lungs clear, normal breath sounds, speaking full sentences Cardiovascular #1: regular rate, rhythm, no edema Cardiovascular #2: 2+ carotid (R), 2+ carotid (L), 2+ radial (R), 2+ radial (L), 2+ dorsalis pedis (R), 2+ dorsalis pedis (L) Gastrointestinal: normal bowel sounds, soft, non-distended, no guarding, no rebound, tenderness Rectal: deferred Genitourinary: normal inspection, no CVA tenderness Musculoskeletal: back normal, normal range of motion, gait/station normal, non- tender Neurologic: alert, motor strength/tone normal, oriented x3, sensory intact, responsive, speech normal Psychiatric: judgement/insight normal, memory normal, mood/affect normal, no suicidal/homicidal ideation Reflexes: 3+ bicep (R), 3+ bicep (L), 3+ tricep (R), 3+ tricep (L), 3+ knee (R), 3+ knee (L) Skin: other - See nursing notes Lymphatic: no adenopathy Medical Decision Making Diagnostic Impression: Primary Impression: ESRD (end stage renal disease) on dialysis Additional Impression: Intractable abdominal pain ER Course Hospital Course 69-year-old female presents the ED complaining of abdominal pain Differential diagnoses include: BPH, cystitis, pyelonephritis, kidney stone Clinical course 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 On reassessment pain is not improved. Patient required multiple rounds of pain meds. I discussed case with Dr. Peralta and he accepted patient I feel this is a highly complex case requiring extensive working including EKG/Rhythm strip, Xray/CT/US, Blood/urine lab work, repeat exams while in ED, and administration of strong opiates/narcotics for pain control, admission to hospital or close patient follow up. Diagnosis - ESRD on dialysis, intractable abd pain Patient admitted to floor in serious condition Laboratory Tests Test 04/24/20 09:15 04/24/20 09:51 Sodium Level 139 MMOL/L (136-145) Potassium Level 4.3 MMOL/L (3.5-5.1) Chloride Level 99 MMOL/L (98-107) Carbon Dioxide Level 30 MMOL/L (21-32) Anion Gap 10 mmol/L (5-15) Blood Urea Nitrogen 32 mg/dL (7-18) H Creatinine 7.0 MG/DL (0.55-1.30) H Estimat Glomerular Filtration Rate 7.2 mL/min (>60) Glucose Level 98 MG/DL (74-106) Calcium Level 8.2 MG/DL (8.5-10.1) L Total Bilirubin 0.5 MG/DL (0.2-1.0) Aspartate Amino Transf (AST/SGOT) 43 U/L (15-37) H Alanine Aminotransferase (ALT/SGPT) 20 U/L (12-78) Alkaline Phosphatase 73 U/L (46-116) Troponin I 0.013 ng/mL (0.000-0.056) Total Protein 9.4 G/DL (6.4-8.2) H Albumin 3.2 G/DL (3.4-5.0) L Globulin 6.2 g/dL Albumin/Globulin Ratio 0.5 (1.0-2.7) L Lipase 216 U/L (73-393) White Blood Count 3.2 K/UL (4.8-10.8) L Red Blood Count 3.21 M/UL (4.20-5.40) L Hemoglobin 9.2 G/DL (12.0-16.0) L Hematocrit 28.3 % (37.0-47.0) L Mean Corpuscular Volume 88 FL (80-99) Mean Corpuscular Hemoglobin 28.6 PG (27.0-31.0) Mean Corpuscular Hemoglobin Concent 32.5 G/DL (32.0-36.0) Red Cell Distribution Width 14.4 % (11.6-14.8) Platelet Count 149 K/UL (150-450) L Mean Platelet Volume 6.1 FL (6.5-10.1) L Neutrophils (%) (Auto) % (45.0-75.0) Lymphocytes (%) (Auto) % (20.0-45.0) Monocytes (%) (Auto) % (1.0-10.0) Eosinophils (%) (Auto) % (0.0-3.0) Basophils (%) (Auto) % (0.0-2.0) Differential Total Cells Counted 100 Neutrophils % (Manual) 61 % (45-75) Lymphocytes % (Manual) 25 % (20-45) Monocytes % (Manual) 11 % (1-10) H Eosinophils % (Manual) 3 % (0-3) Basophils % (Manual) 0 % (0-2) Band Neutrophils 0 % (0-8) Platelet Estimate Adequate Platelet Morphology Normal Hypochromasia 1+ Anisocytosis 1+ EKG Diagnostic Results Rate: normal Rhythm: NSR ST Segments: no acute changes ASA given to the pt in ED: No Rhythm Strip Diag. Results EP Interpretation: yes Rhythm: NSR, no PVC's, no ectopy CT/MRI/US Diagnostic Results CT/MRI/US Diagnostic Results : Imaging Test Ordered: CT A/P Impression Procedure: CT Abdomen Pelvis WO Contrast Indication: Abdominal pain Technique: Spiral acquisitions obtained through the abdomen and pelvis. No oral contrast utilized, per emergency room physician request No IV contrast utilized, per emergency room physician request.. Multiplanar reconstructions were generated. Total dose length product 335 mGycm. CTDIvol(s) 11 mGy. Dose reduction achieved using automated exposure control Comparison: 01/19/2020 Findings: Lack of enteric contrast limits assessment of the GI tract. There is very mild distention of the rectum with feces. There are colonic diverticula. No evidence of diverticulitis. The appendix is normal. There is no small bowel distention. No free or loculated intraperitoneal gas demonstrated. There is a small amount of free intraperitoneal fluid noted, adjacent to the tip of the right hepatic lobe and in the pelvis, slightly increased from the prior exam. Lack of IV contrast limits assessment of the solid organs. The gallbladder contains gallstones. The liver is grossly unremarkable. No biliary ductal dilatation. The pancreas is unremarkable. The spleen is enlarged, measuring 14.7 cm long axis dimension. The adrenals are unremarkable. The kidneys are atrophic. Renal cysts are again demonstrated bilaterally. A rim calcified lesion is again demonstrated in the left lower pole. No renal or ureteral calculi. The bladder is nondistended. There is a 6.7 cm right adnexal cystic mass. This is larger than on the prior study where it measured 5.5 cm. The uterus and left adnexal region are unremarkable. There are prominent periaortic and pericaval nodes again demonstrated, equivocally slightly more prominent than on the previous study. Prominent bilateral iliac chain nodes are also again demonstrated. The included lung bases demonstrate a mosaic perfusion pattern. There is some focal thickening of versus focal fluid within the minor fissure. There are posterior dependent atelectatic changes. The tip of a dialysis catheter is again demonstrated in the right atrium. The heart is enlarged. Impression: Limited assessment of the GI tract, due to lack of enteric contrast administration Small amount of ascites fluid, increased from the prior study Mild rectal distention with feces. Early rectal fecal impaction possible Enlarging right adnexal cystic mass. If this has not been previously worked up, gynecological evaluation should be considered Splenomegaly Increasingly prominent periaortic and pericaval nodes Cardiac Basilar pulmonary parenchymal mosaic perfusion pattern, nonspecific but likely on the basis of mild pulmonary edema Focal pleural thickening versus fluid within the minor fissure Cholelithiasis, also previously reported Diverticulosis. No evidence of diverticulitis Other findings as noted, including stable calcified left lower pole renal lesion, bilateral renal cysts, dialysis catheter The CT scanner at [facility] is accredited by the [employer] and the scans are performed using protocols designed to limit radiation exposure to as low as reasonably achievable to attain images of sufficient resolution adequate for diagnostic evaluation. Last Vital Signs Date Time Temp Pulse Resp B/P (MAP) Pulse Ox O2 Delivery O2 Flow Rate FiO2 04/24/20 15:05 98.0 85 19 168/87 96 Nasal Cannula 2.0 Status: improved Disposition: ADMITTED INPATIENT Condition: Serious Referrals: NOT CHOSEN IPA/,REFERRING (PCP) Noel James MD Apr 24, 2020 15:47
--- NOTE | 2020-04-24 16:18 | NUR ---
NURSE NOTES: Spoke with Shoaib Garcia dialysis nurse re: dialysis schedule for tomorrow 04/25. Informed her to schedule dialysis in early AM as pt will be discharged after.
--- NOTE | 2020-04-24 17:01 | Consultation ---
Consult Note Consult Note I am asked to evaluate the patient at the request of Dr. Barnett for dialysis management Patient recently discharged from [facility]. Patient supposed to be on dialysis Friday. ER note: Chief Complaint: Abdominal Pain Allergies: Coded Allergies: ASPIRIN (Unverified Allergy, Unknown, 01/16/20) IODINE (Verified Allergy, Unknown, 01/07/20) Uncoded Allergies: CONTRAST DYE (Allergy, Unknown, 01/07/20) NSAID (Allergy, Unknown, 04/24/20) COVID-19 Screening Contact w/high risk pt: No Recent Travel to affected area: No Experienced COVID-19 symptoms?: No COVID-19 symptoms experienced: Cough, Flu-Like Symptoms COVID-19 Testing performed FILM CUTTER: No Past Medical History: No History, Except For Hx Cardiac Problems: Yes Hx Hypertension: Yes Hx Diabetes: Yes - Blood sugar currently within normal limits Hx Gastrointestinal Problems: Yes Hx Dialysis: Yes - brady Hx Weakness: Yes Hx Fatigue: Yes Labs reviewed PHYSICAL EXAMINATION: VITAL SIGNS: Blood pressure 150/82, pulse 80, respirations 18, afebrile. HEENT: Conjunctival pallor. Anicteric sclerae. Oropharynx clear. NECK: Supple. Jugular venous pressure normal. LUNGS: Clear. CARDIAC: Regular rhythm and rate. Normal S1, S2 with a 1/6 systolic apical murmur. ABDOMEN: Soft. No focal tenderness, guarding, or rebound. No CVA tenderness. EXTREMITIES: No edema. PermCath site clean and dry. LABORATORY AND DIAGNOSTIC DATA: White count 3.2, hemoglobin 9.2. Abdominal scan reveals constipation. Potassium is 4.3. Troponin is 0.013. Albumin 3.2. Urine tox screen is positive for cocaine. Urinalysis with 15 to 20 red cells, no white cells. . Assessment/Plan End-stage renal disease on hemodialysis Other conditions: (1) Previously Hemodialysis catheter malfunction (2) ESRD (end stage renal disease) on dialysis (3) Substance abuse (4) Hypertension (5) HIV disease (6) HCV antibody positive Suggestions: Hemodialysis ordered for tomorrow morning Keep blood pressure and blood sugar in check Jack Pryor MD Apr 24, 2020 17:01
[2020-04-24] MEDS ORDERED: DiphenhydrAMINE 50mg/ml Inj IVP PRN (17:15)
[2020-04-24] MEDS: HydrOXYzine tab 25mg tab ORAL SCH ×2 (17:53→21:19)
[2020-04-24] MEDS ORDERED: Docusate 100mg cap ORAL SCH (18:00)
[2020-04-24] MEDS ORDERED: HydrALAZINE 25mg tab ORAL PRN (19:00)
[2020-04-24 19:59] VITALS: BP 150/82
--- NOTE | 2020-04-24 20:01 | NUR ---
NURSE HAND-OFF: Important Events on Shift: Admitted from ER, HD ordered for tomorrow AM, [facility] notified, still for UA for drug screen Patient Status: Stable Diet: Renal Pending Orders: Dialysis emilie am Pending Results/Labs: N Pending MD notification: N Latest Vital Signs: Temperature 98.4 , Pulse 80 , B/P 150 /82 , Respiratory Rate 18 , O2 SAT 98 , Nasal Cannula, O2 Flow Rate 2.0 . Vital Sign Comment: Latest Espinoza Fall Score: 15 Fall Risk: Low Risk Safety Measures: Call light Within Reach, Bed Alarm Zone 1, Side Rails Side Rails x2, Bed position Low and Locked. Fall Precautions: Patient Fall Education Report given to Melanie SALAZAR
--- NOTE | 2020-04-24 20:17 | NUR ---
NURSE NOTES: Received patient comfortably sleeping, no SOB noted.
[2020-04-24] MEDS: HydrALAZINE 50mg tab ORAL SCH (21:19)
[2020-04-24] MEDS: HYDROcodone/Acetamin 5/325 tab ORAL PRN (21:32)
[2020-04-24] MEDS ORDERED: LORazepam 1mg tab ORAL PRN (22:00)
[2020-04-25 00:13] VITALS: BP 144/85
[2020-04-25 01:27] LABS: APPEARANCE,URINE CLEAR; BILIRUBIN, URINE NEGATIVE (NEGATIVE); COLOR,URINE PALE YELLOW; GLUCOSE, URINE (UA) NEGATIVE (NEGATIVE); KETONES,URINE NEGATIVE (NEGATIVE); LEUKOCYTE ESTERASE ,URINE 1+ (NEGATIVE); NITRITE,URINE NEGATIVE (NEGATIVE); PH,URINE 8 (4.5-8.0); PROTEIN,URINE 3+ (NEGATIVE); UROBILINOGEN,URINE NORMAL MG/DL (0.0-1.0)
[2020-04-25] MEDS: HydrOXYzine tab 25mg tab ORAL SCH ×2 (02:10→09:57)
--- NOTE | 2020-04-25 02:30 | Consultation ---
DATE OF CONSULTATION: 04/24/2020 CONSULTING PHYSICIAN: Emely Mcallister M.D. HISTORY OF PRESENT ILLNESS: This is a 69-year-old female, who is well known to me from previous admission. The patient presents with depression, anxiety. She has a history of opioid dependence as well as HIV, hypertension, and renal failure. The patient was tearful during the evaluation, presents with anxiety, insomnia. Denies suicidal or homicidal ideation. The patient has multiple psychosocial stressors. She is also noncompliant with recommendation and follow up after discharge. She is requesting to be on Valium and Ativan. PAST PSYCHIATRIC HISTORY: Depression, anxiety. PAST MEDICAL HISTORY: Significant for hypertension, HIV, , end-stage renal disease. ALLERGIES: Aspirin, contrast dye, iodine, NSAIDs. SUBSTANCE ABUSE HISTORY: No known history of illicit drug use or alcohol. MENTAL STATUS EXAMINATION: The patient is alert and oriented times self, place, situation, and date. Mood is depressed. Affect is constricted, congruent with mood. Thought process is concrete. Thought content, there is no suicidal or homicidal ideation. Cognition is intact. Insight and judgment is fair. ASSESSMENT: Tupman I Anxiety disorder Major depressive disorder. Tupman II Deferred. Tupman III As above. Tupman IV Low. Tupman V 50. PLAN: 1. Ativan as needed. 2. The patient would benefit from SSRIs. 3. Provide the patient with reality orientation. 4. Discussed with the nurse. Emely Mcallister M.D. DR: KONG JOB#: [id number] CC:
[2020-04-25] MEDS: HYDROcodone/Acetamin 5/325 tab ORAL PRN ×2 (03:01→13:15)
[2020-04-25 04:00] VITALS: BP 147/80
--- NOTE | 2020-04-25 04:30 | Consultation ---
DATE OF CONSULTATION: 04/24/2020 CARDIOLOGY CONSULTATION CONSULTING PHYSICIAN: Nam Barnett M.D. REQUESTING PHYSICIAN: Michael Peralta M.D. REASON: Conduction system disease. HISTORY OF PRESENT ILLNESS: This is a 69-year-old female with end-stage renal disease, advanced conduction system disease, and tachy-alysa syndrome, who has refused a pacemaker in the past, was admitted for observation due to severe abdominal pain. The patient is scheduled for hemodialysis tomorrow. The patient has not had nausea, vomiting, or symptoms suggestive of near syncope. She has not had any change in her bowel habits, although remains constipated. PAST MEDICAL HISTORY: End-stage renal disease, cocaine dependence, hypertensive heart disease, tachy-alysa syndrome, conduction system disease, type 2 diabetes mellitus, gastroparesis, diabetic neuropathy, HIV positive, hepatitis C positive. ALLERGIES: Aspirin, iodine, and nonsteroidal anti-inflammatory drugs. MEDICATIONS: Reviewed and reconciled. FAMILY HISTORY: Noncontributory. SOCIAL HISTORY: Chronic cocaine abuse. Denies alcohol or smoking. REVIEW OF SYSTEMS: Echocardiogram performed in the last 2 months revealed normal ejection fraction with concentric hypertrophy and mild pulmonary hypertension with degenerative valve disease. The patient has had endovascular infection requiring a PermCath to be replaced. The patient has refused a pacemaker in the past. PHYSICAL EXAMINATION: VITAL SIGNS: Blood pressure 150/82, pulse 80, respirations 18, afebrile. HEENT: Conjunctival pallor. Anicteric sclerae. Oropharynx clear. NECK: Supple. Jugular venous pressure normal. LUNGS: Clear. CARDIAC: Regular rhythm and rate. Normal S1, S2 with a 1/6 systolic apical murmur. ABDOMEN: Soft. No focal tenderness, guarding, or rebound. No CVA tenderness. EXTREMITIES: No edema. PermCath site clean and dry. LABORATORY AND DIAGNOSTIC DATA: White count 3.2, hemoglobin 9.2. Abdominal scan reveals constipation. Potassium is 4.3. Troponin is 0.013. Albumin 3.2. Urine tox screen is positive for cocaine. Urinalysis with 15 to 20 red cells, no white cells. IMPRESSION: 1. Abdominal pain may be due to constipation. 2. End-stage renal disease. 3. Cocaine dependence and addiction, may also be contributing to abdominal pain. 4. Vasospasm of the arterial bed. 5. Hypertensive heart disease. 6. Conduction system disease. 7. Tachy-alysa syndrome. PLAN: 1. Bowel regimen. 2. Continue counseling regarding risks of cocaine abuse. 3. Hemodialysis with ultrafiltration. 4. Titrate cardiovascular regimen. 5. The patient offered pacemaker, again she refuses. 6. Avoid all drugs with negative chronotropic potential such as diltiazem, clonidine, and beta-blockers. Nam Barnett M.D. DR: BAHMAN JOB#: [id number] CC:
[2020-04-25] MEDS: HydrALAZINE 50mg tab ORAL SCH ×3 (05:30→13:14)
--- NOTE | 2020-04-25 07:00 | History and Physical Report ---
DATE OF ADMISSION: 04/24/2020 CHIEF COMPLAINT: Chest pain and abdominal pain. HISTORY OF PRESENT ILLNESS: The patient is a 69-year-old female. She has a history of end-stage renal disease on chronic hemodialysis, HIV, hepatitis C, hypertension, diabetes, conduction system disease. She called paramedics after she developed substernal chest pain and abdominal pain. According to the patient, the symptoms were acute in onset. They were associated with shortness of breath. She presented to the emergency room. On evaluation there, her EKG was unchanged. Her initial set of enzymes was negative, but because of persistent pain, she is now admitted for further evaluation and care. PAST MEDICAL HISTORY: As above. PAST SURGICAL HISTORY: Includes a history of an AV fistula and history of PermCath placement. CURRENT MEDICATIONS: Reconciled and reviewed. ALLERGIES: Include aspirin, iodine, and NSAIDs. FAMILY HISTORY: Noncontributory. SOCIAL HISTORY: The patient has a history of substance abuse. No alcohol or smoking. REVIEW OF SYSTEMS: GENERAL: No fevers or chills. HEENT: No headaches or visual changes. CARDIOPULMONARY: Positive chest pain. Mild shortness of breath. No cough. GASTROINTESTINAL: No nausea or vomiting. GENITOURINARY: No urgency or frequency. MUSCULOSKELETAL: No joint pain or swelling. NEUROLOGIC: No history of seizures. PHYSICAL EXAMINATION: VITAL SIGNS: Temperature 98, pulse 79, respirations 17, blood pressure 147/80. GENERAL: The patient is well-developed, no apparent distress. HEENT: Head is normocephalic and atraumatic. Sclerae anicteric. Oropharynx is clear. Mucous membranes are moist. NECK: Supple. HEART: Regular rate and rhythm. LUNGS: Clear. ABDOMEN: Soft, nontender, nondistended. EXTREMITIES: Without clubbing, cyanosis, or edema. There is a PermCath noted that appears clean. LABORATORY DATA: Sodium 139, potassium 4.3, BUN 32, creatinine was 7. Troponin 0.013. White count was 3, hemoglobin was 9. UA showed 0-2 wbc's. Toxicology screen was positive for cocaine. ASSESSMENT: This is a 69-year-old female with a history of end-stage renal disease, HIV, hepatitis C, hypertension, conduction system disease, diabetes, admitted with complaints of chest pain, suspect noncardiac in origin. PLAN: Serial enzymes and EKGs. Cardiology consultation. Renal consultation for hemodialysis. Scalf as needed for pain, anxiolytics. Continue thyroid replacement therapy. Michael Peralta M.D. DR: KAVEH JOB#: [id number] CC:
--- NOTE | 2020-04-25 07:09 | NUR ---
HAND-OFF: Report given to Jaime Cavanaugh RN.
--- NOTE | 2020-04-25 07:46 | NUR ---
NURSE NOTES: Received report from MARTIN Frias. Patient seen in bed AAOx4, patient is ambulatory but prefers to be on bed rest. Patient on 2lpm via NC with no signs of distress, breathing is even and unlabored. Perma cath noted on left upper chest, patent and intact. Skin is intact. Contact precautions initiated. Patient is for HD today, RN spoke to Dialysis nurse MARTIN Garcia and confirmed HD schedule. Per Jose RN hold BP medication. RN instructed patient to use call light before ambulating if felt dizzy or weak. Bed low and locked, siderails up x2, call light placed within reach and instructed to call nurse for assistance. Will continue to monitor.
[2020-04-25 08:00] VITALS: BP 144/77
[2020-04-25] MEDS: Lactulose 10gm/15ml UDC ORAL SCH ×2 (08:19→13:14)
[2020-04-25] MEDS ORDERED: Docusate 100mg cap ORAL SCH (09:00)
[2020-04-25 12:00] VITALS: BP 115/81
--- NOTE | 2020-04-25 14:31 | NUR ---
CASE MANAGEMENT:REVIEW 69 YR OLD FEMALE BIBA FROM HOME PMH: ESRD LAST DIALYZED ON FRIDAY SI: INTRACTABLE ABDOMINAL PAIN 97.8 86 20 177/106 85% ON RA WBC-3.2 H/H-9.2/28.3 PLT-149 BUN+32 CR+7.0 URINE(+) COCAINE IS: PLACED ON 2L/NC IV MORPHINE X2 IV ATIVAN CT ABD/PELVIS : TO MED/SURG UNIT [facility] 04/25/20 DISCHARGE HOME
[2020-04-25 14:47] VITALS: BP 175/100
--- NOTE | 2020-04-25 15:30 | NUR ---
NURSE NOTES: RN informed patient of discharge and patient became agitated because patient was not prescribed the medications she wanted. Patient then became resistive to care and refused to sign belongings list, discharge checklist, and also patient refuses home packet. RN reminded patient that she has an appointment with Dr. Barnett on may 03. Patient is AAOx4, able to make needs known. Charge nurse aware
--- NOTE | 2020-04-25 15:51 | Nephrology Progress Note ---
Assessment/Plan Problem List: (1) ESRD (end stage renal disease) on dialysis (2) Intractable abdominal pain (3) HCV antibody positive (4) Substance abuse (5) Hypertension (6) HIV disease Plan Patient admitted for abdominal pain may be due to constipation. Patient seen during dialysis today. Tolerating well. Eating pizza (outside order ) for lunch. Continue per PMD Subjective ROS Limited/Unobtainable: No Objective Objective Last 24 Hour Vital Signs Date Time Temp Pulse Resp B/P (MAP) Pulse Ox O2 Delivery O2 Flow Rate FiO2 04/25/20 14:47 175/100 04/25/20 13:14 182/107 04/25/20 12:00 97.5 79 19 115/81 (92) 98 04/25/20 09:00 Nasal Cannula 2.0 04/25/20 08:19 83 144/77 04/25/20 08:00 98.2 83 18 144/77 (99) 98 04/25/20 06:00 147/80 04/25/20 04:00 98.4 79 17 147/80 (102) 98 04/25/20 03:30 98.2 04/25/20 00:13 98.2 85 17 144/85 (104) 97 04/24/20 22:25 80 18 150/82 98 04/24/20 22:05 98.4 04/24/20 21:54 80 18 150/82 98 04/24/20 21:19 150/82 04/24/20 20:25 Nasal Cannula 2.0 04/24/20 19:59 98.4 80 18 150/82 (104) 98 04/24/20 17:53 179/102 04/24/20 17:53 85 168/87 04/24/20 16:05 Nasal Cannula 2.0 Intake and Output 04/24/20 04/25/20 18:59 06:59 Intake Total 240 ml 1480 ml Output Total 0 ml Balance 240 ml 1480 ml Intake Oral 240 ml 1480 ml Output Urine Total 0 ml # Voids 1 Current Medications Medications (Trade) Dose Ordered Sig/Rochelle Route PRN Reason Start Time Stop Time Status Last Admin Dose Admin Acetaminophen (Tylenol) 650 mg Q4H PRN ORAL Mild Pain (Pain Scale 1-3) 04/24/20 17:15 05/24/20 17:14 Acetaminophen/ Hydrocodone Bitart ([place] 5/325) 1 tab Q6H PRN ORAL For Pain 04/24/20 19:00 05/01/20 18:59 04/25/20 13:15 Amlodipine Besylate (Norvasc) 10 mg DAILY ORAL 04/24/20 17:15 05/24/20 17:14 04/24/20 17:53 Diphenhydramine HCl (Benadryl) 25 mg Q1HR PRN IVP itching during dialysis 04/24/20 17:15 05/24/20 17:14 Docusate Sodium (Colace) 100 mg TWICE A DAY ORAL 04/25/20 09:00 05/25/20 08:59 04/25/20 08:19 Hydralazine HCl (Apresoline) 25 mg Q6H PRN ORAL SBP above 160 04/24/20 19:00 07/23/20 18:59 04/25/20 14:47 Hydralazine HCl (Apresoline) 50 mg EVERY 8 HOURS ORAL 04/24/20 22:00 07/23/20 21:59 04/25/20 13:14 Hydroxyzine HCl (Atarax) 25 mg Q8H ORAL 04/24/20 18:00 05/24/20 17:59 04/25/20 09:57 Lactulose (Cephulac) 10 gm THREE TIMES A DAY ORAL 04/25/20 09:00 05/25/20 08:59 04/25/20 13:14 Levothyroxine Sodium (Synthroid) 50 mcg ACBREAKFAST ORAL 04/25/20 06:30 05/25/20 06:29 04/25/20 05:30 Lorazepam (Ativan) 1 mg HSPRN PRN ORAL For Anxiety 04/24/20 22:00 05/01/20 21:59 04/24/20 21:54 Pantoprazole (Protonix) 40 mg BID ORAL 04/24/20 18:00 05/24/20 17:59 04/25/20 08:19 Sevelamer Carbonate (Renvela) 800 mg THREE TIMES A DAY ORAL 04/24/20 18:00 07/23/20 17:59 04/25/20 13:14 Laboratory Tests 04/25/20 00:00: Urine Color Pale yellow, Urine Appearance Clear, Urine pH 8, Urine Specific [place] 1.010, Urine Protein 3+H, Urine Glucose (UA) Negative, Urine Ketones Negative, Urine Blood 4+H, Urine Nitrite Negative, Urine Bilirubin Negative, Urine Urobilinogen Normal, Urine Leukocyte Esterase 1+H, Urine RBC 15-20H, Urine WBC 0-2, Urine Squamous Epithelial Cells ManyH, Urine Bacteria Few, Urine Opiates Screen Negative, Urine Barbiturates Screen Negative, Phencyclidine (PCP) Screen Negative, Urine Amphetamines Screen Negative, Urine Benzodiazepines Screen Negative, Urine Cocaine Screen PositiveH, Urine Marijuana (THC) Screen Negative Height (Feet): 5 Height (Inches): 5.00 Weight (Pounds): 158 General Appearance: no apparent distress Jack Pryor MD Apr 25, 2020 15:51
--- NOTE | 2020-04-25 16:53 | NUR ---
NURSE NOTES: Patient was picked up by [facility]. Patient discharged in stable condition. Armband removed. Patient belongings wasnt able to check because patient refused. Packet was offered to patient again, but patient refused. Patient will be transported to home
--- NOTE | 2020-04-25 17:45 | Cardiology Report ---
APPROVED REPORT EKG Measurement Heart [id number] <Conclusion> Normal sinus rhythm Normal ECG
--- NOTE | 2020-04-25 22:24 | Cardiology Progress Note ---
Subjective DATE OF SERVICE: Apr 25, 2020 Asking for pain meds, but per staff appears comfortable. s/p HD/UF Says she doesn't know how the cocaine got in her body. Bowel regimen in place. Objective Last 24 Hour Vital Signs Date Time Temp Pulse Resp B/P (MAP) Pulse Ox O2 Delivery O2 Flow Rate FiO2 04/25/20 14:47 175/100 04/25/20 13:14 182/107 04/25/20 12:00 97.5 79 19 115/81 (92) 98 04/25/20 09:00 Nasal Cannula 2.0 04/25/20 08:19 83 144/77 04/25/20 08:00 98.2 83 18 144/77 (99) 98 04/25/20 06:00 147/80 04/25/20 04:00 98.4 79 17 147/80 (102) 98 04/25/20 03:30 98.2 04/25/20 00:13 98.2 85 17 144/85 (104) 97 04/24/20 22:25 80 18 150/82 98 LUNGS: lungs clear bilaterally, diminished breath sounds, other - Dialysis catheter site without bleeding CARDIAC: normal rate, regular rhythm, normal S1 and S2, gallop/S4 ABDOMEN: normal bowel sounds, non tender, soft, no organomegaly EXTREMITIES: No edema Laboratory Tests Test 04/25/20 00:00 Urine Color Pale yellow Urine Appearance Clear Urine pH 8 (4.5-8.0) Urine Specific [place] 1.010 (1.005-1.035) Urine Protein 3+ (NEGATIVE) H Urine Glucose (UA) Negative (NEGATIVE) Urine Ketones Negative (NEGATIVE) Urine Blood 4+ (NEGATIVE) H Urine Nitrite Negative (NEGATIVE) Urine Bilirubin Negative (NEGATIVE) Urine Urobilinogen Normal MG/DL (0.0-1.0) Urine Leukocyte Esterase 1+ (NEGATIVE) H Urine RBC 15-20 /HPF (0 - 2) H Urine WBC 0-2 /HPF (0 - 2) Urine Squamous Epithelial Cells Many /LPF (NONE/OCC) H Urine Bacteria Few /HPF (NONE) Urine Opiates Screen Negative (NEGATIVE) Urine Barbiturates Screen Negative (NEGATIVE) Phencyclidine (PCP) Screen Negative (NEGATIVE) Urine Amphetamines Screen Negative (NEGATIVE) Urine Benzodiazepines Screen Negative (NEGATIVE) Urine Cocaine Screen Positive (NEGATIVE) H Urine Marijuana (THC) Screen Negative (NEGATIVE) Assessment/Plan Assessment/Plan Abdominal Pain due to constipation HHD Sinus node dis/Tachy-alysa syndr ESRD Cocaine abuse Anemia of CKD Stable for outpatient follow up - scheduled for 05/03/20. Refused pacemaker; made aware of increased risk of slow heart rates with high potassium. As such, advised strict compliance with dialysis sessions. Nam Barnett MD Apr 25, 2020 22:24
--- NOTE | 2020-04-25 22:44 | Psych Consult Progress Note ---
Psychiatry Progress Note Psychiatry Progress Note Neurological/Psychiatric: Reports: anxiety, depressed, emotional problems Allergies: Coded Allergies: ASPIRIN (Unverified Allergy, Unknown, 01/16/20) IODINE (Verified Allergy, Unknown, 01/07/20) Uncoded Allergies: CONTRAST DYE (Allergy, Unknown, 01/07/20) NSAID (Allergy, Unknown, 04/24/20) Objective Data Height (Feet): 5 Height (Inches): 5.00 Weight (Pounds): 158 General Appearance: no apparent distress Additional Comments: alert and oriented times self, place, situation, and date. Mood is depressed. Affect is constricted, congruent with mood. Thought process is concrete. Thought content, there is no suicidal or homicidal ideation. Cognition is intact. Insight and judgment is fair. Assessment/Plan Assessment/Plan: ASSESSMENT: [place] I Anxiety disorder Major depressive disorder. [place] II Deferred. [place] III As above. [place] IV Low. [place] V 50. PLAN: 1. Ativan as needed. 2. The patient would benefit from SSRIs. 3. Provide the patient with reality orientation. 4. Discussed with the nurse. Emely Mcallister MD Apr 25, 2020 22:44
--- NOTE | 2020-04-26 15:03 | Discharge Summary ---
Discharge Summary Discharge Summary _ DATE OF ADMISSION: 04/24/2020 DATE OF DISCHARGE: 04/25/2020 DISCHARGED BY: Dr. Peralta REASON FOR ADMISSION: 69 years old female with past medical history of end-stage renal disease, on hemodialysis, hypertension, diabetes mellitus, HIV status, conduction system disease, was brought by paramedics from home with substernal chest pain with associated shortness of breath and abdominal pain. Abdominal pain reported as being 10 out of 10 , nonradiating and diffuse. Vital signs are stable. Laboratory work-up revealed no leukocytosis, stable hemoglobin and hematocrit. Stable electrolytes. BUN 32, creatinine 7.0, consistent with known history of end-stage renal disease. Troponin negative. EKG revealed sinus rhythm , no acute ischemic changes. Urinalysis revealed no evidence of urinary tract infection, +3 protein. Urine toxicology screen was positive for cocaine. CT of the abdomen and pelvis revealed fecal impaction , no acute process otherwise Patient received analgesic and antiemetic, and and subsequently admitted for further management . CONSULTANTS: nutrition consultant laboratory analyst Dr. Pryor psychiatrist [facility] COURSE: Patient admitted to telemetry floor. Troponin was negative. EKG revealed no acute ischemic changes. Hemodialysis provided as per laboratory analyst recommendations with close monitoring of volumes and cardiorenal parameters. Patient was able to tolerate dialysis. Pain management was addressed. GI prophylaxis provided. Bowel regimen instituted. Patient had bowel movement. Pain resolved. Blood pressure was managed with Norvasc and hydralazine , additional hydralazine was on board as needed for blood pressure e spikes. Levothyroxine continued. Registered Public Health Nurse seen and evaluated patient and scheduled for outpatient follow-up. Patient prior refused pacemaker ( indicated for tachy alysa syndrome/conduction system disease). Patient was made aware of increased risk of slow heart rate with high potassium. Patient was advised on strict compliance with dialysis sessions. Psychiatrist seen and evaluated patient. Reality orientation provided. Psychiatrist recommended that patient will benefit from SSRI. At this time patient declined . Patient clinically stabilized and was ready for discharge. Due to rapid and unexpected improvement in patient condition , patient was discharged in one day. FINAL DIAGNOSES: Intractable abdominal , pain due to constipation Sinus node disease/tachybrady syndrome End-stage renal disease on hemodialysis Anemia of chronic kidney disease Cocaine abuse HIV disease Hypertensive heart disease Substance abuse/cocaine Diabetes mellitus Hepatitis C Anxiety disorder Major depressive disorder DISCHARGE MEDICATIONS: See Medication Reconciliation list. DISCHARGE INSTRUCTIONS: Patient was discharged home. Outpatient follow-up with nutrition consultant was arranged. Patient was advised to adhere with her hemodialysis schedule I have been assigned to dictate discharge summary for this account. I was not involved in the patient's management. Soila Jaffe NP Apr 26, 2020 15:03
== END 2020-04-25 16:53 | disposition home or self-care (01) ==
LOC: EDBD 09:08 → EMR 09:40 → INTOOBSV 12:25 → 4E 12:25 → EDBEDREQ 14:06
DX: K59.00 Constipation, unspecified (principal); N18.6 End stage renal disease; I12.0 Hypertensive chronic kidney disease with stage 5 chronic kidney disease or end stage renal disease; F14.20 Cocaine dependence, uncomplicated; E11.22 Type 2 diabetes mellitus with diabetic chronic kidney disease; Z99.2 Dependence on renal dialysis; Z88.6 Allergy status to analgesic agent; Z91.041 Radiographic dye allergy status; I49.5 Sick sinus syndrome; D63.1 Anemia in chronic kidney disease; B19.20 Unspecified viral hepatitis C without hepatic coma; F41.9 Anxiety disorder, unspecified; F32.9 Major depressive disorder, single episode, unspecified
CPT/HCPCS: 36415; 74176; 80053; 80307; 81003; 83690; 84484; 85007; 85025; 87081; 93005; 96374; 96375; 99285; J2270

== ENCOUNTER 2020-05-24 09:57 | Inpatient (IN) | payer MEDICARE, MEDICAID ==
[~2020-05-24] VITALS: Ht 165.1 cm; Wt 73.4 kg
[~2020-05-24 09:57] MED LIST changes: +WELLBUTRIN SR200 MG ORAL
[2020-05-24 10:03] VITALS: BP 197/102
[2020-05-24] MEDS ORDERED: Nitroglycerin 2% oint pkt TOPIC ONE ×2 (10:15)
[2020-05-24 10:36] LABS: BASOPHILS % (AUTO) 0.7 % (0.0-2.0); EOSINOPHILS % (AUTO) 4.1 % (0.0-3.0); HEMOGLOBIN 9.3 G/DL (12.0-16.0); LYMPHOCYTES % (AUTO) 16.9 % (20.0-45.0); MEAN CORPUSCULAR VOLUME 95 FL (80-99); MONOCYTES % (AUTO) 8.1 % (1.0-10.0); NEUTROPHILS % (AUTO) 70.1 % (45.0-75.0); PLATELET COUNT 138 K/UL (150-450); RED BLOOD COUNT 3.16 M/UL (4.20-5.40); RED CELL DISTRIBUTION WIDTH 17.3 % (11.6-14.8)
[2020-05-24 10:43] LABS: ANION GAP 7 mmol/L (5-15); BLOOD UREA NITROGEN 38 mg/dL (7-18); CALCIUM 8.3 MG/DL (8.5-10.1); CARBON DIOXIDE 31 MMOL/L (21-32); CHLORIDE 95 MMOL/L (98-107); CREATININE 8.8 MG/DL (0.55-1.30); POTASSIUM 4.8 MMOL/L (3.5-5.1); SODIUM 133 MMOL/L (136-145)
[2020-05-24] MEDS ORDERED: Nitroglycerin Subl 0.4mg tab SL PRN (10:45)
[2020-05-24 10:57] LABS: ALANINE AMINOTRANSFERASE 10 U/L (12-78); ALBUMIN 3.4 G/DL (3.4-5.0); ALBUMIN/GLOBULIN RATIO 0.6 (1.0-2.7); ALKALINE PHOSPHATASE 85 U/L (46-116); ASPARTATE AMINO TRANSFERASE 28 U/L (15-37); BILIRUBIN,TOTAL 0.4 MG/DL (0.2-1.0)
[2020-05-24 11:13] LABS: INR 1.2 (0.9-1.1)
[2020-05-24 11:16] LABS: PARTIAL THROMBOPLASTIN TIME > 150 SEC (23-33)
--- NOTE | 2020-05-24 11:31 | Emergency Room Report ---
History of Present Illness General Chief Complaint: Dyspnea/Respdistress Source: Patient Present Illness HPI Disclaimer: Please note that this report is being documented using DRAGON technology. This can lead to erroneous entry secondary to incorrect interpretation by the dictating instrument. HPI: 69-year-old female history of ESRD on hemodialysis presents for evaluation of shortness of breath. Also reporting chest pain. Missed hemodialysis yesterday due to pain and discomfort. Denies fever or chills. Reports nonproductive cough. No exacerbating or relieving factors. Reports generalized weakness. Has been compliant with her medications per patient. PMH: HIV, diabetes, ESRD PSH: Port-A-Cath Allergies: Aspirin, contrast media, iodine, NSAIDs Social Hx: Reviewed Allergies: Coded Allergies: ASPIRIN (Unverified Allergy, Unknown, 01/16/20) IODINE (Verified Allergy, Unknown, 01/07/20) Uncoded Allergies: CONTRAST DYE (Allergy, Unknown, 01/07/20) NSAID (Allergy, Unknown, 04/24/20) COVID-19 Screening Contact w/high risk pt: No Recent Travel to affected area: No Experienced COVID-19 symptoms?: No COVID-19 symptoms experienced: Cough, Flu-Like Symptoms COVID-19 Testing performed CHARGE AUTHORIZER: No Nursing Documentation-PMH Hx Hypertension: Yes Hx Diabetes: Yes - Blood sugar currently within normal limits Hx Cancer: No Hx Gastrointestinal Problems: No Hx Dialysis: Yes - T-Th-S Hx Neurological Problems: No Hx Seizures: No - denies Hx Epilepsy: No Hx Weakness: Yes Hx Fatigue: Yes Hx Neurologic Surgery: No Hx Brain Shunt: No Review of Systems All Other Systems: negative except mentioned in HPI Physical Exam Vital Signs Date Time Temp Pulse Resp B/P (MAP) Pulse Ox O2 Delivery O2 Flow Rate FiO2 05/24/20 09:55 97.9 90 18 197/102 (133) 95 Room Air General: Awake and alert, appears uncomfortable, hypertensive HEENT: NC/AT. EOMI. Chest Wall: Catheter in place in left upper chest wall. Cardiovascular: RRR. S1 and S2 normal. No murmur appreciated Resp: Normal work of breathing. No cough, wheezing or crackles appreciated Abdomen: Abdomen is soft, nondistended. Nontender Skin: Intact. No abrasions, laceration or rash over the exposed skin MSK: Normal tone and bulk. Moving all extremities. No obvious deformity. Neuro: Awake and alert. Mentating appropriately. Procedures Critical Care Time Critical Care Time Total critical care time: Approximately 45 minutes Due to a high probability of clinically significant, life threatening deterioration, the patient required the highest level of preparedness to intervene emergently and I personally spent this critical care time directly and personally managing the patient. This critical care time included obtaining a history, examining the patient, pulse oximetry, ordering and reviewing studies, ordering treatments, evaluating response to treatment and updating management plan as needed, frequent reassessment and discussion with other providers as well as arranging for ultimate disposition. This critical to care time was performed to assess and manage the high probability of life-threatening deterioration that could result in multiorgan failure. This critical care time is separate from the separately billable procedures and treating other patients. Medical Decision Making Diagnostic Impression: Primary Impression: ESRD (end stage renal disease) on dialysis Additional Impression: Hypertensive urgency ER Course 69-year-old female history of ESRD, HIV presents for evaluation of shortness of breath. Differential includes was not limited to fluid overload state, electrolyte abnormality, worsening renal failure, heart failure, ACS, angina, pneumonia, bronchitis among others. Patient placed on monitor, IV line established. Sublingual and topical nitroglycerin given for elevated blood pressures. Pressure slowly improving. Troponin negative. Labs show evidence of chronic kidney disease and end-stage renal failure though potassium is within normal limits. BN peptide significantly elevated greater than 35,000. Chest x- ray shows signs of mild congestion. Mild bilateral lower extremity edema as well. Patient reports feeling much better and is on 2 L nasal cannula saturating 99%. She will be admitted to her PMD, Dr. Peralta Laboratory Tests Test 05/24/20 10:03 White Blood Count 4.0 K/UL (4.8-10.8) L Red Blood Count 3.16 M/UL (4.20-5.40) L Hemoglobin 9.3 G/DL (12.0-16.0) L Hematocrit 30.0 % (37.0-47.0) L Mean Corpuscular Volume 95 FL (80-99) Mean Corpuscular Hemoglobin 29.6 PG (27.0-31.0) Mean Corpuscular Hemoglobin Concent 31.1 G/DL (32.0-36.0) L Red Cell Distribution Width 17.3 % (11.6-14.8) H Platelet Count 138 K/UL (150-450) L Mean Platelet Volume 6.2 FL (6.5-10.1) L Neutrophils (%) (Auto) 70.1 % (45.0-75.0) Lymphocytes (%) (Auto) 16.9 % (20.0-45.0) L Monocytes (%) (Auto) 8.1 % (1.0-10.0) Eosinophils (%) (Auto) 4.1 % (0.0-3.0) H Basophils (%) (Auto) 0.7 % (0.0-2.0) Prothrombin Time 12.8 SEC (9.30-11.50) H Prothrombin Time INR 1.2 (0.9-1.1) H Activated Partial Thromboplast Time > 150 SEC (23-33) *H Sodium Level 133 MMOL/L (136-145) L Potassium Level 4.8 MMOL/L (3.5-5.1) Chloride Level 95 MMOL/L (98-107) L Carbon Dioxide Level 31 MMOL/L (21-32) Anion Gap 7 mmol/L (5-15) Blood Urea Nitrogen 38 mg/dL (7-18) H Creatinine 8.8 MG/DL (0.55-1.30) H Estimated Glomerular Filtration Rate 5.5 mL/min (>60) Glucose Level 118 MG/DL (74-106) H Calcium Level 8.3 MG/DL (8.5-10.1) L Total Bilirubin 0.4 MG/DL (0.2-1.0) Aspartate Amino Transferase (AST) 28 U/L (15-37) Alanine Aminotransferase (ALT) 10 U/L (12-78) L Alkaline Phosphatase 85 U/L (46-116) Troponin I 0.000 ng/mL (0.000-0.056) Pro-B-Type Natriuretic Peptide > 53602 pg/mL (0-125) H Total Protein 8.7 G/DL (6.4-8.2) H Albumin 3.4 G/DL (3.4-5.0) Globulin 5.3 g/dL Albumin/Globulin Ratio 0.6 (1.0-2.7) L EKG Diagnostic Results Troponin ordered: Yes When was troponin ordered?: May 24, 2020 EKG Time: 10:03 Rate: normal Rhythm: NSR ST Segments: no acute changes Other Impression Sinus rhythm, normal axis, normal intervals, no ST segment changes. Anterior Q waves. Rhythm Strip Diag. Results Rhythm Strip Time: 10:03 EP Interpretation: yes Rate: 90s Rhythm: NSR, no PVC's, no ectopy Chest X-Ray Diagnostic Results Chest X-Ray Diagnostic Results : Chest X-Ray Ordered: Yes # of Views/Limited/Complete: 1 View Indication: Chest Pain EP Interpretation: Yes Interpretation: no consolidation, no effusion, no pneumothorax, other - Bilateral congestion Impression: No acute disease Electronically Signed by: Electronically signed by Dr. Roly Graff Last Vital Signs Date Time Temp Pulse Resp B/P (MAP) Pulse Ox O2 Delivery O2 Flow Rate FiO2 05/24/20 10:15 197/102 05/24/20 10:03 90 18 Room Air 05/24/20 10:03 97.9 95 Disposition: ADMITTED INPATIENT Condition: Serious Roly Graff MD May 24, 2020 11:31
[2020-05-24 12:00] VITALS: BP 170/82
--- NOTE | 2020-05-24 12:36 | Diagnostic Imaging Report ---
Procedure: XRAY Chest 1v Reason for study: Reason For Exam: SOB Comparison films: 04/11/2020. FINDINGS: Central venous catheter remains in place. Vascularity is normal. There is mild right basilar atelectasis. Cardiomegaly and small right effusion noted. The bony thorax appear unremarkable. IMPRESSION: Small right effusion. Mild right basilar atelectasis.
[2020-05-24 14:36] VITALS: BP 167/86
[2020-05-24] MEDS ORDERED: Morphine Sulfate 2mg/ml Inj(IV/IM USE ONLY) IVP ONE (14:45)
[2020-05-24 16:00] VITALS: BP 194/110
[2020-05-24] MEDS ORDERED: Enalaprilat 2.5mg/2ml Inj IV SCH (16:00)
[2020-05-24] MEDS: HydrALAZINE 50mg tab ORAL SCH ×2 (17:26→22:49)
[2020-05-24] MEDS: Docusate 100mg cap ORAL SCH (17:26)
[2020-05-24] MEDS ORDERED: Heparin Sod 1000 units/ml 10ml INJ PRN (17:33)
[2020-05-24] MEDS: LORazepam 1mg tab ORAL PRN (17:47)
[2020-05-24 20:00] VITALS: BP 161/80
[2020-05-24] MEDS ORDERED: Morphine Sulfate 2mg/ml Inj(IV/IM USE ONLY) IVP SCH (20:15)
--- NOTE | 2020-05-24 20:30 | Consultation ---
DATE OF CONSULTATION: 05/24/2020 CONSULTING PHYSICIAN: Dipesh Parker MD REFERRING PHYSICIAN: Michael Peralta MD CHIEF COMPLAINT/REASON FOR CONSULTATION: End-stage renal disease. HISTORY OF PRESENT ILLNESS: The patient has been on dialysis for about 2 years. She has a dialysis PermCath and no AV access. Missed her dialysis yesterday as she had back pain. She presented to the emergency room with shortness of breath. Chest x-ray showed some atelectasis. The patient is a regular smoker of about a pack per day. SURGERIES: AV access. MEDICATIONS: She cannot give an adequate list. In the computer, she is on amlodipine, Wellbutrin, stool softener, Tivicay, hydralazine, Synthroid, and Protonix. ALLERGIES: IV contrast. There is a questionable listed allergy to aspirin, but the patient states that she is not allergic to aspirin. HABITS: She is a smoker of a pack a day. SYSTEM REVIEW: HEAD, EYES, EARS, NOSE, THROAT: Vision and hearing is good. ENDOCRINE: She denies diabetes or thyroid disease. PULMONARY: Shortness of breath as above. CARDIAC: Denies angina or NE. She has vague pain at the site of her dialysis PermCath. GASTROINTESTINAL: She has occasional GI upset. She is on Protonix. GENITOURINARY: No dysuria or hematuria. NEUROLOGIC: No CVA or seizures. INFECTIOUS: History of HIV. PHYSICAL EXAMINATION: VITAL SIGNS: The patient is seen as she is being placed on dialysis. Temperature 98.6, pulse 85, , and blood pressure 194/110. HEAD, EYES, EARS, NOSE, THROAT: Sclerae nonicteric. Ocular motions intact in all directions. Oral mucosa moist. LUNGS: Few faint expiratory rhonchi. No distress. HEART: Rhythm is regular. There is a 2/6 to 3/6 harsh systolic ejection murmur. ABDOMEN: Soft without organomegaly or masses. EXTREMITIES: No edema, cyanosis, or clubbing. VASCULAR: She has a left jugular PermCath. NEUROLOGIC: She is alert and responsive. Cranial nerves are intact. No focal weakness. LABORATORY DATA: Labs were reviewed on the computer. IMPRESSION: 1. End-stage renal disease. 2. Cardiomyopathy, likely hypertensive, with elevated BNP of greater than 35,000. 3. Atelectasis on chest x-ray. 4. Regular smoker. 5. COPD. 6. HIV positive. PLAN: Serial dialysis for fluid overload and better blood pressure control. Titrate blood pressure medication. She needs to have better compliance with her outpatient regimen. Dipesh Parker M.D. DR: DUSTY JOB#: [id number] CC:
[2020-05-24] MEDS: Heparin 5000 units/ml inj SUBQ SCH (21:00)
[2020-05-25] VITALS: BP 169/94
[2020-05-25] MEDS ORDERED: Morphine Sulfate 2mg/ml Inj(IV/IM USE ONLY) IVP SCH (00:30)
[2020-05-25] MEDS: LORazepam 1mg tab ORAL PRN ×3 (00:37→20:12)
[2020-05-25 04:00] VITALS: BP 151/88
--- NOTE | 2020-05-25 04:30 | Consultation ---
DATE OF CONSULTATION: 05/24/2020 CARDIOLOGY CONSULTATION CONSULTING PHYSICIAN: Nam Barnett MD REQUESTING PHYSICIAN: Michael Peralta MD REASON FOR CONSULTATION: Congestive heart failure exacerbation. HISTORY OF PRESENT ILLNESS: This is an elderly female with end-stage renal disease and hypertensive cardiomyopathy with diastolic dysfunction, who presented to the emergency room today with shortness of breath. She missed her dialysis session yesterday due to back pain that she felt was too severe to allow her to be transported to her dialysis unit. Her symptoms recurred today prompting her to come to the emergency room. PAST MEDICAL HISTORY: Includes end-stage renal disease, HIV/AIDS, hypertensive heart disease, diastolic congestive heart failure, hepatitis C positive, hypothyroidism, osteoporosis, cocaine abuse, degenerative valve disease, tachybrady syndrome, conduction system disease of the heart, type 2 diabetes mellitus on insulin, and diabetic neuropathy. ALLERGIES: As noted include aspirin and iodine. FAMILY HISTORY: Noncontributory. SOCIAL HISTORY: Chronic cocaine abuse. Intermittent smoker. No alcohol. REVIEW OF SYSTEMS: Recent echocardiogram with normal ejection fraction, recent PermCath replacement in the left chest, history of bradyarrhythmias and tachybrady syndrome with refusal of a pacemaker in the past, recurrent cocaine intoxication documented at this hospital, hydrocodone and benzodiazepine dependence. All other systems with no acute change from my dictation of April 24, 2020. PHYSICAL EXAMINATION: VITAL SIGNS: Blood pressure up to 194/110, heart rate 85, respiratory rate 20, afebrile. NECK: Jugular venous pressure elevated. CHEST: Left chest wall PermCath site clean. LUNGS: Clear. CARDIAC: Regular rhythm and rate. Normal S1, S2 with a 2/6 systolic murmur at the base. ABDOMEN: Soft. EXTREMITIES: There is no edema. SKIN: PermCath site in the left jugular is without erythema. LABORATORY DATA: Labs reviewed. IMPRESSION: End-stage renal disease, acute on chronic diastolic congestive heart failure due to missed dialysis session, hyperkalemia, and cocaine dependence. PLAN: Emergent hemodialysis with ultrafiltration. Resume baseline medication regimen. Counseled again regarding compliance with regular dialysis sessions and abstinence from cocaine use. Nam Barnett M.D. : Yahaira JOB#: [id number] CC:
[2020-05-25] MEDS: HydrALAZINE 50mg tab ORAL SCH ×3 (05:19→21:16)
[2020-05-25] MEDS: HYDROcodone/Acetamin 10/325 tab ORAL PRN ×3 (05:28→18:01)
--- NOTE | 2020-05-25 07:44 | Nephrology Progress Note ---
Assessment/Plan Problem List: (1) Pruritus (2) CHF (congestive heart failure), NYHA class II (3) ESRD (end stage renal disease) on dialysis (4) Hypertensive urgency (5) HIV disease Plan HD 05/25 skin care Subjective Constitutional: Reports: other - pruritus HEENT: Reports: no symptoms Genitourinary: Reports: no symptoms Neurologic/Psychiatric: Reports: no symptoms Objective Objective Last 24 Hour Vital Signs Date Time Temp Pulse Resp B/P (MAP) Pulse Ox O2 Delivery O2 Flow Rate FiO2 05/25/20 05:19 151/88 05/25/20 05:00 Nasal Cannula 2.0 05/25/20 04:00 80 05/25/20 04:00 98.2 81 20 151/88 (109) 95 05/25/20 01:07 79 20 161/63 98 05/25/20 00:37 87 22 169/64 98 05/25/20 00:00 99.0 87 22 169/94 (119) 98 05/25/20 00:00 89 05/24/20 22:49 161/80 05/24/20 21:00 Nasal Cannula 2.0 05/24/20 20:00 118 05/24/20 20:00 98.0 84 20 161/80 (107) 98 05/24/20 18:17 82 19 208/117 97 05/24/20 17:47 82 19 208/117 97 05/24/20 17:27 82 208/117 05/24/20 17:26 208/117 05/24/20 16:21 198/107 05/24/20 16:00 72 05/24/20 16:00 98.6 85 19 194/110 (138) 97 05/24/20 15:09 Nasal Cannula 2.0 05/24/20 14:45 98.5 88 20 163/89 100 Nasal Cannula 2.0 05/24/20 14:36 98.2 92 19 167/86 97 Nasal Cannula 2.0 05/24/20 12:00 98.0 86 17 170/82 100 Nasal Cannula 2.0 05/24/20 10:15 197/102 05/24/20 10:03 90 18 Room Air 05/24/20 10:03 97.9 90 18 197/102 95 Room Air 05/24/20 09:55 97.9 90 18 197/102 (133) 95 Room Air Intake and Output 05/24/20 05/25/20 19:00 07:00 Intake Total 140 ml 360 ml Output Total 4200 ml 100 ml Balance -4060 ml 260 ml Intake Oral 140 ml 360 ml Output Urine Total 1200 ml 100 ml Hemodialysis UF 3000 ml # Voids 3 1 # Bowel Movements 1 Laboratory Tests 05/24/20 10:03: White Blood Count 4.0L, Red Blood Count 3.16L, Hemoglobin 9.3L, Hematocrit 30.0L , Mean Corpuscular Volume 95, Mean Corpuscular Hemoglobin 29.6, Mean Corpuscular Hemoglobin Concent 31.1L, Red Cell Distribution Width 17.3H, Platelet Count 138L , Mean Platelet Volume 6.2L, Neutrophils (%) (Auto) 70.1, Lymphocytes (%) (Auto) 16.9L, Monocytes (%) (Auto) 8.1, Eosinophils (%) (Auto) 4.1H, Basophils (%) (Auto) 0.7, Prothrombin Time 12.8H, Prothromb Time International Ratio 1.2H, Activated Partial Thromboplast Time > 150*H, Sodium Level 133L, Potassium Level 4.8, Chloride Level 95L, Carbon Dioxide Level 31, Anion Gap 7, Blood Urea Nitrogen 38H, Creatinine 8.8H, Estimat Glomerular Filtration Rate 5.5, Glucose Level 118H, Calcium Level 8.3L, Total Bilirubin 0.4, Aspartate Amino Transf (AST/SGOT) 28, Alanine Aminotransferase (ALT/SGPT) 10L, Alkaline Phosphatase 85, Troponin I 0.000, Pro-B-Type Natriuretic Peptide > 55274D, Total Protein 8.7H, Albumin 3.4, Globulin 5.3, Albumin/Globulin Ratio 0.6L, Hepatitis B Surface Antigen [Pending] Height (Feet): 5 Height (Inches): 5.00 Weight (Pounds): 160 General Appearance: no apparent distress, alert EENT: normal ENT inspection Neck: normal alignment Cardiovascular: normal rate, regular rhythm Respiratory/Chest: lungs clear Abdomen: non tender Extremities: no edema Neurologic: abnormal it associate II-XII Objective excoriation back and skin tear buttock Dipesh Parker MD May 25, 2020 07:44
[2020-05-25 08:00] VITALS: BP 164/84
[2020-05-25] MEDS: Docusate 100mg cap ORAL SCH ×3 (08:31→18:00)
[2020-05-25] MEDS: Heparin 5000 units/ml inj SUBQ SCH ×2 (08:32→20:31)
--- NOTE | 2020-05-25 09:00 | History and Physical Report ---
DATE OF ADMISSION: 05/24/2020 CHIEF COMPLAINT: Hypertensive emergency. HISTORY OF PRESENT ILLNESS: The patient is an unfortunate 69-year-old female. She has a history of end-stage renal disease, hypertension, conduction system disease, and HIV. She is admitted with complaints of uncontrolled hypertension and missed dialysis. She also complains of generalized pain. According to the patient, she missed her dialysis on the day of admission because of the buttocks pain. She is noted to have a wound in the sacral area. In the emergency room, her systolic blood pressure was over 200 and she is now admitted for urgent hemodialysis and for blood pressure control. PAST MEDICAL HISTORY: As above. PAST SURGICAL HISTORY: Includes an AV fistula. CURRENT MEDICATIONS: Reconciled and reviewed. ALLERGIES: Include contrast. FAMILY HISTORY: Noncontributory. SOCIAL HISTORY: The patient is a smoker. No alcohol. No drugs. PHYSICAL EXAMINATION: VITAL SIGNS: Systolic blood pressure was 200/114, pulse of 85, respirations 20. GENERAL: The patient is tearful and crying because of pain. HEENT: Head is normocephalic and atraumatic. Sclerae anicteric. Oropharynx is clear. NECK: Supple. HEART: Regular rate and rhythm. LUNGS: Clear. ABDOMEN: Soft, nontender, nondistended. EXTREMITIES: Without clubbing or cyanosis. The patient has a left-sided PermCath. LABORATORY DATA: White count 4, hemoglobin 9. Sodium 133, BUN of 38, creatinine was 8.8. ASSESSMENT: This is a 69-year-old female with a history of end-stage renal disease, hypertension, HIV, and chronic pain, admitted with complaints of uncontrolled hypertension secondary to missed dialysis. PLAN: 1. IV blood pressure and oral blood pressure medications. 2. Renal and Cardiology consultations. 3. Hemodialysis. 4. Wound care consultation for sacral wound. 5. Consider psych evaluation and pain management evaluation. Michael Peralta M.D. DR: XIANG JOB#: [id number] CC:
--- NOTE | 2020-05-25 10:50 | Consultation ---
Consult Note Consult Note Ms. Concha Mahmood is under my care as an outpatient for her dialysis related management. Dr. Dipesh Parker took care of the patient yesterday and this morning at [facility] due to a miscommunication. I will be taking over the nephrology management of the patient. Patient was dialyzed yesterday. She is receiving outpatient dialysis on Friday at [facility] [place]. Emergency room note HPI: 69-year-old female history of ESRD on hemodialysis presents for evaluation of shortness of breath. Also reporting chest pain. Missed hemodialysis yesterday due to pain and discomfort. Denies fever or chills. Reports nonproductive cough. No exacerbating or relieving factors. Reports generalized weakness. Has been compliant with her medications per patient. PMH: HIV, diabetes, ESRD PSH: Port-A-Cath Allergies: Aspirin, contrast media, iodine, NSAIDs Social Hx: Reviewed Allergies: Coded Allergies: ASPIRIN (Unverified Allergy, Unknown, 01/16/20) IODINE (Verified Allergy, Unknown, 01/07/20) Uncoded Allergies: CONTRAST DYE (Allergy, Unknown, 01/07/20) NSAID (Allergy, Unknown, 04/24/20) COVID-19 Screening Contact w/high risk pt: No Recent Travel to affected area: No Experienced COVID-19 symptoms?: No COVID-19 symptoms experienced: Cough, Flu-Like Symptoms COVID-19 Testing performed STAFF RESEARCH SCIENTIST: No Hx Hypertension: Yes Hx Diabetes: Yes - Blood sugar currently within normal limits Hx Dialysis: Yes - T-- Hx Weakness: Yes Hx Fatigue: Yes PHYSICAL EXAMINATION: VITAL SIGNS: Blood pressure up to 194/110, heart rate 85, respiratory rate 20, afebrile. NECK: Jugular venous pressure elevated. CHEST: Left chest wall PermCath site clean. LUNGS: Clear. CARDIAC: Regular rhythm and rate. Normal S1, S2 with a 2/6 systolic murmur at the base. ABDOMEN: Soft. EXTREMITIES: There is no edema. SKIN: PermCath site in the left jugular is without erythema. LABORATORY DATA: Labs reviewed. . Assessment/Plan Patient admitted with hypertensive urgency (1) ESRD (end stage renal disease) on dialysis (2) HIV disease (3) Cocaine abuse (4) Noncompliance (5) Anemia of chronic kidney disease Patient was dialyzed yesterday, will dialyze tomorrow Will adjust blood pressure medication Per orders Jack Pryor MD May 25, 2020 10:50
[2020-05-25 12:00] VITALS: BP 172/86
[2020-05-25 16:00] VITALS: BP 166/85
[2020-05-25] MEDS ORDERED: Heparin Sod 1000 units/ml 10ml IV ONE (17:30)
[2020-05-25] MEDS: HydrALAZINE 25mg tab ORAL PRN (18:00)
[2020-05-25 20:00] VITALS: BP 158/91
--- NOTE | 2020-05-25 23:23 | Cardiology Progress Note ---
Subjective DATE OF SERVICE: May 25, 2020 s/p HD/ UF C/o back pain and anxiety No CP or SOB Objective Last 24 Hour Vital Signs Date Time Temp Pulse Resp B/P (MAP) Pulse Ox O2 Delivery O2 Flow Rate FiO2 05/25/20 21:16 165/96 05/25/20 21:00 Nasal Cannula 2.0 05/25/20 20:42 84 18 165/96 96 05/25/20 20:12 97 18 158/91 99 05/25/20 20:00 98 05/25/20 20:00 98.1 97 18 158/91 (113) 100 05/25/20 18:00 166/85 05/25/20 16:00 98.2 79 18 166/85 (112) 98 05/25/20 16:00 79 05/25/20 12:58 172/86 05/25/20 12:00 82 05/25/20 12:00 96.6 82 20 172/86 (114) 97 05/25/20 09:02 79 19 167/89 96 05/25/20 09:00 Nasal Cannula 2.0 05/25/20 08:32 85 21 164/84 96 05/25/20 08:31 85 164/84 05/25/20 08:00 82 05/25/20 08:00 98.1 85 21 164/84 (110) 96 05/25/20 05:19 151/88 05/25/20 05:00 Nasal Cannula 2.0 05/25/20 04:00 80 05/25/20 04:00 98.2 81 20 151/88 (109) 95 05/25/20 01:07 79 20 161/63 98 05/25/20 00:37 87 22 169/64 98 05/25/20 00:00 99.0 87 22 169/94 (119) 98 05/25/20 00:00 89 ROS: unchanged from my evaluation of 05/24/20 RHYTHM: NSR, SB, PACs LUNGS: lungs clear bilaterally CARDIAC: normal rate, regular rhythm, normal S1 and S2, gallop/S4 ABDOMEN: non tender, soft, no organomegaly, no mass EXTREMITIES: No edema Assessment/Plan Assessment/Plan Acute on chronic Diastolic CHF Hypertensive urgency - resolved ESRD - with missed dialysis session Anginal episode precipitated by above HHD SInus node disease with hx of tachy-alysa syndrome; patient has refused pacemaker Chronic cocaine abuse HD/UF Titrate antiHTN and anti-failure regimen [employer]er regarding cocaine use DC planning Nam Barnett MD May 25, 2020 23:23
[2020-05-26] VITALS: BP 164/86
[2020-05-26] MEDS: HydrALAZINE 25mg tab ORAL PRN ×3 (00:16→13:00)
[2020-05-26] MEDS: HYDROcodone/Acetamin 10/325 tab ORAL PRN ×4 (00:16→22:13)
[2020-05-26] MEDS: LORazepam 1mg tab ORAL PRN ×2 (03:21→09:22)
[2020-05-26 04:00] VITALS: BP 166/102
[2020-05-26] MEDS: HydrALAZINE 50mg tab ORAL SCH ×3 (05:31→21:01)
--- NOTE | 2020-05-26 07:39 | General Progress Note ---
Subjective ROS Limited/Unobtainable: No Constitutional: Reports: malaise, weakness HEENT: Reports: no symptoms Cardiovascular: Reports: no symptoms Respiratory: Reports: no symptoms Gastrointestinal/Abdominal: Reports: no symptoms Genitourinary: Reports: no symptoms Neurologic/Psychiatric: Reports: no symptoms Endocrine: Reports: no symptoms Hematologic/Lymphatic: Reports: no symptoms Allergies: Coded Allergies: ASPIRIN (Unverified Allergy, Unknown, 01/16/20) IODINE (Verified Allergy, Unknown, 01/07/20) Uncoded Allergies: CONTRAST DYE (Allergy, Unknown, 01/07/20) NSAID (Allergy, Unknown, 04/24/20) All Systems: reviewed and negative except above Subjective screaming and agitated. c/o severe pain. no fever or chills. no abd pain. +wound on sacrum Objective Last 24 Hour Vital Signs Date Time Temp Pulse Resp B/P (MAP) Pulse Ox O2 Delivery O2 Flow Rate FiO2 05/26/20 05:31 177/97 05/26/20 04:00 92 05/26/20 04:00 97.9 89 20 166/102 (123) 96 05/26/20 03:51 89 20 166/102 96 05/26/20 03:21 84 20 161/88 96 05/26/20 01:46 167/97 05/26/20 00:00 97.3 84 20 164/86 (112) 100 05/26/20 00:00 82 05/25/20 21:16 165/96 05/25/20 21:00 Nasal Cannula 2.0 05/25/20 20:42 84 18 165/96 96 05/25/20 20:12 97 18 158/91 99 05/25/20 20:00 98 05/25/20 20:00 98.1 97 18 158/91 (113) 100 05/25/20 18:00 166/85 05/25/20 16:00 98.2 79 18 166/85 (112) 98 05/25/20 16:00 79 05/25/20 12:58 172/86 05/25/20 12:00 82 05/25/20 12:00 96.6 82 20 172/86 (114) 97 05/25/20 09:02 79 19 167/89 96 05/25/20 09:00 Nasal Cannula 2.0 05/25/20 08:32 85 21 164/84 96 05/25/20 08:31 85 164/84 05/25/20 08:00 82 05/25/20 08:00 98.1 85 21 164/84 (110) 96 Intake and Output 05/25/20 05/26/20 19:00 07:00 Intake Total 260 ml 240 ml Output Total 1200 ml Balance -940 ml 240 ml Intake Oral 260 ml 240 ml Output Urine Total 1200 ml # Voids 3 Laboratory Tests 05/26/20 05:47: White Blood Count [Pending], Red Blood Count [Pending], Hemoglobin [Pending], Hematocrit [Pending], Mean Corpuscular Volume [Pending], Mean Corpuscular Hemoglobin [Pending], Mean Corpuscular Hemoglobin Concent [Pending], Red Cell Distribution Width [Pending], Platelet Count [Pending], Mean Platelet Volume [Pending], Neutrophils (%) (Auto) [Pending], Lymphocytes (%) (Auto) [Pending], Monocytes (%) (Auto) [Pending], Eosinophils (%) (Auto) [Pending], Basophils (%) (Auto) [Pending], Sodium Level [Pending], Potassium Level [Pending], Chloride Level [Pending], Carbon Dioxide Level [Pending], Blood Urea Nitrogen [Pending], Creatinine [Pending], Estimat Glomerular Filtration Rate [Pending], Glucose Level [Pending], Hemoglobin A1c [Pending], Uric Acid [Pending], Calcium Level [Pending], Phosphorus Level [Pending], Magnesium Level [Pending], Iron Level [Pending], Unsaturated Iron Binding [Pending], Ferritin [Pending], Total Bilirubin [Pending], Gamma Glutamyl Transpeptidase [Pending], Aspartate Amino Transf (AST/SGOT) [Pending], Alanine Aminotransferase (ALT/SGPT) [Pending], Alkaline Phosphatase [Pending], C-Reactive Protein, Quantitative [Pending], Pro-B-Type Natriuretic Peptide [Pending], Total Protein [Pending], Albumin [Pending], Globulin [Pending], Triglycerides Level [Pending], Cholesterol Level [Pending], LDL Cholesterol [Pending], HDL Cholesterol [Pending], Cholesterol/HDL Ratio [Pending], Vitamin B12 Level [Pending], Folate [Pending], Thyroid Stimulating Hormone (TSH) [Pending] Height (Feet): 5 Height (Inches): 5.00 Weight (Pounds): 160 General Appearance: WD/WN, alert, mild distress, agitated EENT: normal ENT inspection Neck: non-tender, normal alignment, supple Cardiovascular: normal peripheral pulses, normal rate, regular rhythm Respiratory/Chest: chest wall non-tender, lungs clear, normal breath sounds, no respiratory distress Abdomen: normal bowel sounds, non tender, soft, no organomegaly Edema: no edema noted Arm (L), no edema noted Arm (R) 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 grossly normal, alert, responsive Skin: other - ?abrasion between buttocks Assessment/Plan Problem List: (1) Hypertensive urgency ICD Codes: I16.0 - Hypertensive urgency SNOMED: 482259558 (2) HIV disease ICD Codes: B20 - Human immunodeficiency virus [HIV] disease SNOMED: 67736637 (3) CHF (congestive heart failure), NYHA class II ICD Codes: I50.9 - Heart failure, unspecified SNOMED: 361528255, 346690111 (4) ESRD (end stage renal disease) on dialysis ICD Codes: N18.6 - End stage renal disease; Z99.2 - Dependence on renal dialysis SNOMED: 371048738 (5) Substance abuse ICD Codes: F19.10 - Other psychoactive substance abuse, uncomplicated SNOMED: 29890814 Status: stable, progressing Assessment/Plan: iv pain rx x 1 titrate bp rx HD per renal anxiolytics dc planning Michael Peralta MD May 26, 2020 07:39
[2020-05-26 07:43] LABS: BASOPHILS % (AUTO) 1.3 % (0.0-2.0); EOSINOPHILS % (AUTO) 6.1 % (0.0-3.0); HEMATOCRIT 27.7 % (37.0-47.0); HEMOGLOBIN 8.8 G/DL (12.0-16.0); LYMPHOCYTES % (AUTO) 11.7 % (20.0-45.0); MEAN CORPUSCULAR VOLUME 93 FL (80-99); MONOCYTES % (AUTO) 9.8 % (1.0-10.0); NEUTROPHILS % (AUTO) 71.1 % (45.0-75.0); PLATELET COUNT 124 K/UL (150-450); RED BLOOD COUNT 2.96 M/UL (4.20-5.40); RED CELL DISTRIBUTION WIDTH 15.9 % (11.6-14.8); WHITE BLOOD COUNT 4.1 K/UL (4.8-10.8)
[2020-05-26 08:00] VITALS: BP 173/86
[2020-05-26 08:01] LABS: % IRON SATURATION 17 % (15-50); IRON 35 ug/dL (50-175); TOTAL IRON BINDING CAPACITY 204 ug/dL (250-450)
[2020-05-26 08:11] LABS: ALANINE AMINOTRANSFERASE 6 U/L (12-78); ALBUMIN 3.4 G/DL (3.4-5.0); ALBUMIN/GLOBULIN RATIO 0.7 (1.0-2.7); ALKALINE PHOSPHATASE 73 U/L (46-116); ANION GAP 9 mmol/L (5-15); ASPARTATE AMINO TRANSFERASE 25 U/L (15-37); BILIRUBIN,TOTAL 0.4 MG/DL (0.2-1.0); BLOOD UREA NITROGEN 37 mg/dL (7-18); CALCIUM 8.1 MG/DL (8.5-10.1); CARBON DIOXIDE 30 MMOL/L (21-32); CHLORIDE 95 MMOL/L (98-107); CHOLESTEROL 114 MG/DL (< 200); FERRITIN 562 NG/ML (8-388); GAMMA GLUTAMYL TRANSPEPTIDASE 206 U/L (5-85); HDL CHOLESTEROL 59 MG/DL (40-60); PHOSPHORUS 5.1 MG/DL (2.5-4.9); SODIUM 134 MMOL/L (136-145); TRIGLYCERIDES 71 MG/DL (30-150)
[2020-05-26] MEDS: Heparin 5000 units/ml inj SUBQ SCH ×2 (09:00→20:19)
[2020-05-26] MEDS: Docusate 100mg cap ORAL SCH ×3 (09:20→17:13)
--- NOTE | 2020-05-26 11:57 | Nephrology Progress Note ---
Assessment/Plan Problem List: (1) ESRD (end stage renal disease) on dialysis (2) HIV disease (3) HCV antibody positive (4) Hypertensive urgency Assessment Patient admitted with hypertensive urgency (1) ESRD (end stage renal disease) on dialysis (2) HIV disease (3) Cocaine abuse (4) Noncompliance (5) Anemia of chronic kidney disease Plan B12 subcu and to p.o. Synthroid ordered Patient was dialyzed 05/24, will dialyze today Will adjust blood pressure medication Per orders Subjective ROS Limited/Unobtainable: No Constitutional: Reports: malaise Objective Objective Last 24 Hour Vital Signs Date Time Temp Pulse Resp B/P (MAP) Pulse Ox O2 Delivery O2 Flow Rate FiO2 05/26/20 09:52 82 20 173/86 98 05/26/20 09:22 82 20 173/86 98 05/26/20 09:22 82 173/86 05/26/20 08:51 97.9 05/26/20 08:00 82 05/26/20 08:00 97.7 82 20 173/86 (115) 98 05/26/20 08:00 Nasal Cannula 2.0 05/26/20 05:31 177/97 05/26/20 04:00 92 05/26/20 04:00 97.9 89 20 166/102 (123) 96 05/26/20 03:51 89 20 166/102 96 05/26/20 03:21 84 20 161/88 96 05/26/20 01:46 167/97 05/26/20 00:00 97.3 84 20 164/86 (112) 100 05/26/20 00:00 82 05/25/20 21:16 165/96 05/25/20 21:00 Nasal Cannula 2.0 05/25/20 20:42 84 18 165/96 96 05/25/20 20:12 97 18 158/91 99 05/25/20 20:00 98 05/25/20 20:00 98.1 97 18 158/91 (113) 100 05/25/20 18:00 166/85 05/25/20 16:00 98.2 79 18 166/85 (112) 98 05/25/20 16:00 79 05/25/20 12:58 172/86 05/25/20 12:00 82 05/25/20 12:00 96.6 82 20 172/86 (114) 97 Intake and Output 05/25/20 05/26/20 19:00 07:00 Intake Total 260 ml 520 ml Output Total 1200 ml Balance -940 ml 520 ml Intake Oral 260 ml 520 ml Output Urine Total 1200 ml # Voids 3 Current Medications Medications (Trade) Dose Ordered Sig/Rochelle Route PRN Reason Start Time Stop Time Status Last Admin Dose Admin Acetaminophen/ Hydrocodone Bitart ([place] 10/325) 1 tab Q4H PRN ORAL For Pain 05/24/20 16:00 05/31/20 15:59 05/26/20 06:31 Amlodipine Besylate (Norvasc) 10 mg DAILY ORAL 05/24/20 16:00 06/23/20 15:59 05/26/20 09:22 Diphenhydramine HCl (Benadryl) 25 mg Q6H PRN ORAL Itching 05/25/20 08:30 06/24/20 08:29 05/26/20 09:22 Docusate Sodium (Colace) 100 mg TID ORAL 05/25/20 13:00 06/23/20 17:59 05/26/20 09:20 Dolutegravir Sodium (Tivicay) 50 mg DAILY ORAL 05/24/20 16:00 08/22/20 15:59 UNV Heparin Sodium (Porcine) (Heparin 5000 units/ml) 5,000 units EVERY 12 HOURS SUBQ 05/24/20 21:00 07/08/20 20:59 Hydralazine HCl (Apresoline) 25 mg Q6H PRN ORAL For High Blood Pressure 05/24/20 16:00 08/22/20 15:59 05/26/20 01:46 Hydralazine HCl (Apresoline) 50 mg EVERY 8 HOURS ORAL 05/24/20 16:00 08/22/20 15:59 05/26/20 05:31 Levothyroxine Sodium (Synthroid) 50 mcg ACBREAKFAST ORAL 05/27/20 06:30 06/26/20 06:29 Levothyroxine Sodium (Synthroid) 50 mcg DAILY ORAL 05/24/20 16:00 05/26/20 12:00 05/26/20 09:20 Lorazepam (Ativan) 1 mg Q6H PRN ORAL For Anxiety 05/24/20 16:00 05/31/20 15:59 05/26/20 09:22 Nitroglycerin (Ntg) 0.4 mg Q5M PRN SL Prn Chest Pain 05/24/20 10:45 06/23/20 10:44 Ondansetron HCl (Zofran) 4 mg Q6H PRN IVP Nausea & Vomiting 05/24/20 16:00 06/23/20 15:59 Pantoprazole (Protonix) 40 mg DAILY ORAL 05/26/20 09:00 06/25/20 08:59 05/26/20 09:22 Sodium Chloride 1,000 ml @ 500 mls/hr Q2H PRN IVLG sbp<90 during hd 05/25/20 17:30 06/24/20 17:29 Laboratory Tests 05/26/20 05:47: White Blood Count 4.1L, Red Blood Count 2.96L, Hemoglobin 8.8L, Hematocrit 27.7L , Mean Corpuscular Volume 93, Mean Corpuscular Hemoglobin 29.9, Mean Corpuscular Hemoglobin Concent 32.0, Red Cell Distribution Width 15.9H, Platelet Count 124L, Mean Platelet Volume 6.3L, Neutrophils (%) (Auto) 71.1, Lymphocytes (%) (Auto) 11.7L, Monocytes (%) (Auto) 9.8, Eosinophils (%) (Auto) 6.1H, Basophils (%) (Auto) 1.3, Sodium Level 134L, Potassium Level 5.0, Chloride Level 95L, Carbon Dioxide Level 30, Anion Gap 9, Blood Urea Nitrogen 37H, Creatinine 8.0H, Estimat Glomerular Filtration Rate 6.1, Glucose Level 80, Hemoglobin A1c 4.3, Uric Acid 5.8, Calcium Level 8.1L, Phosphorus Level 5.1H, Magnesium Level 2.3, Iron Level 35L, Total Iron Binding Capacity 204L, Percent Iron Saturation 17, Unsaturated Iron Binding 169, Ferritin 562H, Total Bilirubin 0.4, Gamma Glutamyl Transpeptidase 206H, Aspartate Amino Transf (AST/SGOT) 25, Alanine Aminotransferase (ALT/SGPT) 6L, Alkaline Phosphatase 73, C-Reactive Protein, Quantitative < 0.4, Pro-B-Type Natriuretic Peptide > 41141L, Total Protein 8.5H, Albumin 3.4, Globulin 5.1, Albumin/Globulin Ratio 0.7L, Triglycerides Level 71, Cholesterol Level 114, LDL Cholesterol 42, HDL Cholesterol 59, Cholesterol/HDL Ratio 1.9L, Vitamin B12 Level 197, Folate 8.9, Thyroid Stimulating Hormone (TSH) 8.532H Height (Feet): 5 Height (Inches): 5.00 Weight (Pounds): 160 General Appearance: no apparent distress Cardiovascular: normal rate Respiratory/Chest: decreased breath sounds Abdomen: distended Objective No change Jack Pryor MD May 26, 2020 11:57
[2020-05-26 12:00] VITALS: BP 190/111
[2020-05-26] MEDS ORDERED: Vitamin B12 1000mcg/ml Inj SUBQ SCH (12:00)
[2020-05-26] MEDS ORDERED: Levothyroxine 25mcg tab ORAL SCH (12:12)
[2020-05-26] MEDS ORDERED: TRAZODONE HCL50 MG ORAL (13:21)
[2020-05-26] MEDS ORDERED: HYDROXYZINE HCL25 M1 PO (13:21)
[2020-05-26 16:00] VITALS: BP 172/98
[2020-05-26 18:28] VITALS: BP 163/88
[2020-05-26] MEDS: Epoetin Alfa-EPBX(ESRD on dialysis)10,000 unit/ml vial SUBQ SCH (20:10)
[2020-05-27] VITALS (9 sets, daily range): BP systolic 115–193; BP diastolic 78–118
[2020-05-27] MEDS: HydrALAZINE 25mg tab ORAL PRN ×2 (00:03→21:56)
[2020-05-27] MEDS: LORazepam 1mg tab ORAL PRN ×3 (00:04→23:14)
--- NOTE | 2020-05-27 03:03 | Cardiology Progress Note ---
Subjective DATE OF SERVICE: May 26, 2020 s/p HD/ UF Still c/o back pain and anxiety No CP or SOB Has a painful buttocks wound now Objective Last 24 Hour Vital Signs Date Time Temp Pulse Resp B/P (MAP) Pulse Ox O2 Delivery O2 Flow Rate FiO2 05/27/20 00:34 85 20 158/82 93 05/27/20 00:04 89 22 172/89 92 05/27/20 00:03 172/89 05/27/20 00:00 98.2 89 22 172/89 (116) 92 05/26/20 21:01 161/86 05/26/20 21:00 Nasal Cannula 2.0 05/26/20 18:28 90 163/88 (113) 05/26/20 16:00 99.3 94 26 172/98 (122) 96 05/26/20 16:00 97 05/26/20 15:25 193/103 05/26/20 13:00 190/111 05/26/20 12:00 97.9 89 24 190/111 (137) 98 05/26/20 12:00 84 05/26/20 09:52 82 20 173/86 98 05/26/20 09:22 82 20 173/86 98 05/26/20 09:22 82 173/86 05/26/20 08:51 97.9 05/26/20 08:00 82 05/26/20 08:00 97.7 82 20 173/86 (115) 98 05/26/20 08:00 Nasal Cannula 2.0 05/26/20 05:31 177/97 05/26/20 04:00 92 05/26/20 04:00 97.9 89 20 166/102 (123) 96 05/26/20 03:51 89 20 166/102 96 05/26/20 03:21 84 20 161/88 96 ROS: unchanged from my evaluation of 05/24/20 RHYTHM: NSR, SB, PACs LUNGS: lungs clear bilaterally CARDIAC: normal rate, regular rhythm, normal S1 and S2, gallop/S4 ABDOMEN: non tender, soft, no organomegaly, no mass EXTREMITIES: No edema Laboratory Tests Test 05/26/20 05:47 White Blood Count 4.1 K/UL (4.8-10.8) L Red Blood Count 2.96 M/UL (4.20-5.40) L Hemoglobin 8.8 G/DL (12.0-16.0) L Hematocrit 27.7 % (37.0-47.0) L Mean Corpuscular Volume 93 FL (80-99) Mean Corpuscular Hemoglobin 29.9 PG (27.0-31.0) Mean Corpuscular Hemoglobin Concent 32.0 G/DL (32.0-36.0) Red Cell Distribution Width 15.9 % (11.6-14.8) H Platelet Count 124 K/UL (150-450) L Mean Platelet Volume 6.3 FL (6.5-10.1) L Neutrophils (%) (Auto) 71.1 % (45.0-75.0) Lymphocytes (%) (Auto) 11.7 % (20.0-45.0) L Monocytes (%) (Auto) 9.8 % (1.0-10.0) Eosinophils (%) (Auto) 6.1 % (0.0-3.0) H Basophils (%) (Auto) 1.3 % (0.0-2.0) Sodium Level 134 MMOL/L (136-145) L Potassium Level 5.0 MMOL/L (3.5-5.1) Chloride Level 95 MMOL/L (98-107) L Carbon Dioxide Level 30 MMOL/L (21-32) Anion Gap 9 mmol/L (5-15) Blood Urea Nitrogen 37 mg/dL (7-18) H Creatinine 8.0 MG/DL (0.55-1.30) H Estimat Glomerular Filtration Rate 6.1 mL/min (>60) Glucose Level 80 MG/DL (74-106) Hemoglobin A1c 4.3 % (4.3-6.0) Uric Acid 5.8 MG/DL (2.6-7.2) Calcium Level 8.1 MG/DL (8.5-10.1) L Phosphorus Level 5.1 MG/DL (2.5-4.9) H Magnesium Level 2.3 MG/DL (1.8-2.4) Iron Level 35 ug/dL (50-175) L Total Iron Binding Capacity 204 ug/dL (250-450) L Percent Iron Saturation 17 % (15-50) Unsaturated Iron Binding 169 ug/dL (112-346) Ferritin 562 NG/ML (8-388) H Total Bilirubin 0.4 MG/DL (0.2-1.0) Gamma Glutamyl Transpeptidase 206 U/L (5-85) H Aspartate Amino Transf (AST/SGOT) 25 U/L (15-37) Alanine Aminotransferase (ALT/SGPT) 6 U/L (12-78) L Alkaline Phosphatase 73 U/L (46-116) C-Reactive Protein, Quantitative < 0.4 mg/dL (0.00-0.90) Pro-B-Type Natriuretic Peptide > 86191 pg/mL (0-125) H Total Protein 8.5 G/DL (6.4-8.2) H Albumin 3.4 G/DL (3.4-5.0) Globulin 5.1 g/dL Albumin/Globulin Ratio 0.7 (1.0-2.7) L Triglycerides Level 71 MG/DL (30-150) Cholesterol Level 114 MG/DL (< 200) LDL Cholesterol 42 mg/dL (<100) HDL Cholesterol 59 MG/DL (40-60) Cholesterol/HDL Ratio 1.9 (3.3-4.4) L Vitamin B12 Level 197 PG/ML (193-986) Folate 8.9 NG/ML (8.6-58.9) Thyroid Stimulating Hormone (TSH) 8.532 uiU/mL (0.358-3.740) Microbiology Date/Time Source Procedure Growth Status 05/24/20 11:30 Nasal Nares MRSA Culture - Final NO METHICILLIN RESISTANT STAPH AUREUS... 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
[2020-05-27] MEDS: HYDROcodone/Acetamin 10/325 tab ORAL PRN ×2 (05:09→21:56)
[2020-05-27] MEDS: HydrALAZINE 50mg tab ORAL SCH ×3 (06:27→21:12)
[2020-05-27] MEDS: Heparin 5000 units/ml inj SUBQ SCH ×2 (09:00→21:00)
[2020-05-27] MEDS: Docusate 100mg cap ORAL SCH ×3 (09:35→18:05)
[2020-05-27 10:44] LABS: ALBUMIN 3.4 G/DL (3.4-5.0); ALBUMIN/GLOBULIN RATIO 0.6 (1.0-2.7)
[2020-05-27 10:45] LABS: BILIRUBIN,TOTAL 0.6 MG/DL (0.2-1.0); CALCIUM 8.4 MG/DL (8.5-10.1); CREATININE 5.8 MG/DL (0.55-1.30); PHOSPHORUS 3.9 MG/DL (2.5-4.9); POTASSIUM 4.6 MMOL/L (3.5-5.1)
[2020-05-27] MEDS ORDERED: HydrOXYzine tab 25mg tab ORAL SCH (12:30)
--- NOTE | 2020-05-27 13:03 | General Progress Note ---
Subjective ROS Limited/Unobtainable: No Constitutional: Reports: malaise, weakness HEENT: Reports: no symptoms Cardiovascular: Reports: no symptoms Respiratory: Reports: no symptoms Gastrointestinal/Abdominal: Reports: no symptoms Genitourinary: Reports: no symptoms Neurologic/Psychiatric: Reports: anxiety, depressed, emotional problems Endocrine: Reports: no symptoms Hematologic/Lymphatic: Reports: no symptoms Allergies: Coded Allergies: ASPIRIN (Unverified Allergy, Unknown, 01/16/20) IODINE (Verified Allergy, Unknown, 01/07/20) Uncoded Allergies: CONTRAST DYE (Allergy, Unknown, 01/07/20) NSAID (Allergy, Unknown, 04/24/20) All Systems: reviewed and negative except above Subjective resting. c/o pain. currently sleeping. appears comfortable. Objective Last 24 Hour Vital Signs Date Time Temp Pulse Resp B/P (MAP) Pulse Ox O2 Delivery O2 Flow Rate FiO2 05/27/20 12:00 98.0 85 20 170/90 (116) 95 05/27/20 09:35 83 177/94 05/27/20 08:00 98.1 83 20 177/94 (121) 95 05/27/20 07:58 Nasal Cannula 2.0 05/27/20 06:58 82 20 148/82 94 05/27/20 06:28 75 20 158/89 94 05/27/20 06:27 156/89 05/27/20 04:00 98.4 82 20 115/78 (90) 93 05/27/20 00:34 85 20 158/82 93 05/27/20 00:04 89 22 172/89 92 05/27/20 00:03 172/89 05/27/20 00:00 98.2 89 22 172/89 (116) 92 05/26/20 21:01 161/86 05/26/20 21:00 Nasal Cannula 2.0 05/26/20 18:28 90 163/88 (113) 05/26/20 16:00 99.3 94 26 172/98 (122) 96 05/26/20 16:00 97 05/26/20 15:25 193/103 Intake and Output 05/26/20 05/27/20 19:00 07:00 Intake Total 240 ml Output Total 2000 ml Balance -2000 ml 240 ml Intake Oral 240 ml Output Urine Total 0 ml Hemodialysis UF 2000 ml # Voids 1 Laboratory Tests 05/27/20 09:25: Sodium Level 134L, Potassium Level 4.6, Chloride Level 97L, Carbon Dioxide Level 29, Anion Gap 8, Blood Urea Nitrogen 23H, Creatinine 5.8H, Estimat Glomerular Filtration Rate 8.8, Glucose Level 87, Calcium Level 8.4L, Phosphorus Level 3.9, Total Bilirubin 0.6, Aspartate Amino Transf (AST/SGOT) 36, Alanine Aminotransferase (ALT/SGPT) 19, Alkaline Phosphatase 74, Total Protein 9.1H, Albumin 3.4, Globulin 5.7, Albumin/Globulin Ratio 0.6L Height (Feet): 5 Height (Inches): 5.00 Weight (Pounds): 160 Objective General Appearance: WD/WN, alert, mild distress, agitated EENT: normal ENT inspection Neck: non-tender, normal alignment, supple Cardiovascular: normal peripheral pulses, normal rate, regular rhythm Respiratory/Chest: chest wall non-tender, lungs clear, normal breath sounds, no respiratory distress Abdomen: normal bowel sounds, non tender, soft, no organomegaly Edema: no edema noted Arm (L), no edema noted Arm (R) 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, alert, responsive Skin: other - ?abrasion between buttocks Assessment/Plan Problem List: (1) Hypertensive urgency ICD Codes: I16.0 - Hypertensive urgency SNOMED: 975674496 (2) HIV disease ICD Codes: B20 - Human immunodeficiency virus [HIV] disease SNOMED: 93108759 (3) CHF (congestive heart failure), NYHA class II ICD Codes: I50.9 - Heart failure, unspecified SNOMED: 749279104, 892327042 (4) ESRD (end stage renal disease) on dialysis ICD Codes: N18.6 - End stage renal disease; Z99.2 - Dependence on renal dialysis SNOMED: 225088917 (5) Substance abuse ICD Codes: F19.10 - Other psychoactive substance abuse, uncomplicated SNOMED: 69350981 Status: stable, progressing Assessment/Plan: iv pain rx x 1 limits set titrate bp rx HD per renal HIV meds anxiolytics dc planning Michael Peralta MD May 27, 2020 13:03
--- NOTE | 2020-05-27 13:19 | Cardiology Progress Note ---
Subjective DATE OF SERVICE: May 27, 2020 s/p HD/ UF on 05/26/20. Still c/o back pain and anxiety; asks for IV pain meds repeatedly. No CP or SOB Has a painful buttocks wound now Objective Last 24 Hour Vital Signs Date Time Temp Pulse Resp B/P (MAP) Pulse Ox O2 Delivery O2 Flow Rate FiO2 05/27/20 12:00 98.0 85 20 170/90 (116) 95 05/27/20 09:35 83 177/94 05/27/20 08:00 98.1 83 20 177/94 (121) 95 05/27/20 07:58 Nasal Cannula 2.0 05/27/20 06:58 82 20 148/82 94 05/27/20 06:28 75 20 158/89 94 05/27/20 06:27 156/89 05/27/20 04:00 98.4 82 20 115/78 (90) 93 05/27/20 00:34 85 20 158/82 93 05/27/20 00:04 89 22 172/89 92 05/27/20 00:03 172/89 05/27/20 00:00 98.2 89 22 172/89 (116) 92 05/26/20 21:01 161/86 05/26/20 21:00 Nasal Cannula 2.0 05/26/20 18:28 90 163/88 (113) 05/26/20 16:00 99.3 94 26 172/98 (122) 96 05/26/20 16:00 97 05/26/20 15:25 193/103 ROS: unchanged from my evaluation of 05/24/20 RHYTHM: NSR, SB, PACs LUNGS: lungs clear bilaterally CARDIAC: normal rate, regular rhythm, normal S1 and S2, gallop/S4 ABDOMEN: non tender, soft, no organomegaly, no mass EXTREMITIES: No edema, other - skin wound per nursing documentation Laboratory Tests Test 05/27/20 09:25 Sodium Level 134 MMOL/L (136-145) L Potassium Level 4.6 MMOL/L (3.5-5.1) Chloride Level 97 MMOL/L (98-107) L Carbon Dioxide Level 29 MMOL/L (21-32) Anion Gap 8 mmol/L (5-15) Blood Urea Nitrogen 23 mg/dL (7-18) H Creatinine 5.8 MG/DL (0.55-1.30) H Estimat Glomerular Filtration Rate 8.8 mL/min (>60) Glucose Level 87 MG/DL (74-106) Calcium Level 8.4 MG/DL (8.5-10.1) L Phosphorus Level 3.9 MG/DL (2.5-4.9) Total Bilirubin 0.6 MG/DL (0.2-1.0) Aspartate Amino Transf (AST/SGOT) 36 U/L (15-37) Alanine Aminotransferase (ALT/SGPT) 19 U/L (12-78) Alkaline Phosphatase 74 U/L (46-116) Total Protein 9.1 G/DL (6.4-8.2) H Albumin 3.4 G/DL (3.4-5.0) Globulin 5.7 g/dL Albumin/Globulin Ratio 0.6 (1.0-2.7) L Assessment/Plan Assessment/Plan Acute on chronic Diastolic CHF Hypertensive urgency - resolved ESRD - with missed dialysis session Anginal episode precipitated by above HHD SInus node disease with hx of tachy-alysa syndrome; patient has refused pacemaker Chronic cocaine abuse Buttocks wound HD/UF Titrate antiHTN and anti-failure regimen 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
--- NOTE | 2020-05-27 15:01 | Nephrology Progress Note ---
Assessment/Plan Problem List: (1) ESRD (end stage renal disease) on dialysis (2) HIV disease (3) HCV antibody positive (4) Hypertensive urgency (5) Substance abuse Assessment Patient admitted with hypertensive urgency (1) ESRD (end stage renal disease) on dialysis (2) HIV disease (3) Cocaine abuse (4) Noncompliance (5) Anemia of chronic kidney disease Plan May 27: Patient in mild distress due to itching and generalized pain. Was dialyzed yesterday. Will dialyze again tomorrow. Will start on Atarax [id number] for itching. Labs reviewed, medications reviewed and adjusted. B12 subcu and to p.o. Synthroid ordered Patient was dialyzed 05/24, will dialyze today Will adjust blood pressure medication Per orders Subjective ROS Limited/Unobtainable: No Constitutional: Reports: other Objective Objective Last 24 Hour Vital Signs Date Time Temp Pulse Resp B/P (MAP) Pulse Ox O2 Delivery O2 Flow Rate FiO2 05/27/20 13:31 177/84 05/27/20 12:00 98.0 85 20 170/90 (116) 95 05/27/20 09:35 83 177/94 05/27/20 08:00 98.1 83 20 177/94 (121) 95 05/27/20 07:58 Nasal Cannula 2.0 05/27/20 06:58 82 20 148/82 94 05/27/20 06:28 75 20 158/89 94 05/27/20 06:27 156/89 05/27/20 04:00 98.4 82 20 115/78 (90) 93 05/27/20 00:34 85 20 158/82 93 05/27/20 00:04 89 22 172/89 92 05/27/20 00:03 172/89 05/27/20 00:00 98.2 89 22 172/89 (116) 92 05/26/20 21:01 161/86 05/26/20 21:00 Nasal Cannula 2.0 05/26/20 18:28 90 163/88 (113) 05/26/20 16:00 99.3 94 26 172/98 (122) 96 05/26/20 16:00 97 05/26/20 15:25 193/103 Intake and Output 05/26/20 05/27/20 19:00 07:00 Intake Total 240 ml Output Total 2000 ml Balance -2000 ml 240 ml Intake Oral 240 ml Output Urine Total 0 ml Hemodialysis UF 2000 ml # Voids 1 Current Medications Medications (Trade) Dose Ordered Sig/Rochelle Route PRN Reason Start Time Stop Time Status Last Admin Dose Admin Acetaminophen/ Hydrocodone Bitart ([place] 10325) 1 tab Q4H PRN ORAL Moderate Pain (4-6) 05/24/20 16:00 05/31/20 15:59 05/27/20 05:09 Amlodipine Besylate (Norvasc) 10 mg DAILY ORAL 05/24/20 16:00 06/23/20 15:59 05/27/20 09:35 Diphenhydramine HCl (Benadryl) 25 mg Q6H PRN ORAL Itching 05/25/20 08:30 06/24/20 08:29 05/27/20 05:09 Docusate Sodium (Colace) 100 mg TID ORAL 05/25/20 13:00 06/23/20 17:59 05/27/20 13:31 Dolutegravir Sodium (Tivicay) 50 mg DAILY ORAL 05/24/20 16:00 08/22/20 15:59 UNV Epoetin Jose (Epoetin Jose(ESRD on dialysis)) 10,000 unit FRI-FRI-FRI SUBQ 05/26/20 21:00 08/24/20 20:59 05/26/20 20:10 Heparin Sodium (Porcine) (Heparin 5000 units/ml) 5,000 units EVERY 12 HOURS SUBQ 05/24/20 21:00 07/08/20 20:59 Hydralazine HCl (Apresoline) 25 mg Q6H PRN ORAL For High Blood Pressure 05/24/20 16:00 08/22/20 15:59 05/27/20 00:03 Hydralazine HCl (Apresoline) 50 mg EVERY 8 HOURS ORAL 05/24/20 16:00 08/22/20 15:59 05/27/20 13:31 Hydromorphone HCl (Dilaudid) 2 mg DAILYPRN PRN IVP Severe Pain (Pain Scale 7-10) 05/27/20 10:45 06/03/20 10:44 05/27/20 10:48 Hydroxyzine HCl (Atarax) 25 mg Q8H ORAL 05/27/20 20:30 06/26/20 20:29 Levothyroxine Sodium (Synthroid) 75 mcg Q24H ORAL 05/27/20 06:30 06/26/20 06:29 05/27/20 06:28 Lorazepam (Ativan) 1 mg Q6H PRN ORAL For Anxiety 05/24/20 16:00 05/31/20 15:59 05/27/20 06:28 Nitroglycerin (Ntg) 0.4 mg Q5M PRN SL Prn Chest Pain 05/24/20 10:45 06/23/20 10:44 Ondansetron HCl (Zofran) 4 mg Q6H PRN IVP Nausea & Vomiting 05/24/20 16:00 06/23/20 15:59 Pantoprazole (Protonix) 40 mg DAILY ORAL 05/26/20 09:00 06/25/20 08:59 05/27/20 09:36 Sodium Chloride 1,000 ml @ 500 mls/hr Q2H PRN IVLG sbp<90 during hd 05/25/20 17:30 06/24/20 17:29 Laboratory Tests 05/27/20 09:25: Sodium Level 134L, Potassium Level 4.6, Chloride Level 97L, Carbon Dioxide Level 29, Anion Gap 8, Blood Urea Nitrogen 23H, Creatinine 5.8H, Estimat Glomerular Filtration Rate 8.8, Glucose Level 87, Calcium Level 8.4L, Phosphorus Level 3.9, Total Bilirubin 0.6, Aspartate Amino Transf (AST/SGOT) 36, Alanine Aminotransferase (ALT/SGPT) 19, Alkaline Phosphatase 74, Total Protein 9.1H, Albumin 3.4, Globulin 5.7, Albumin/Globulin Ratio 0.6L Height (Feet): 5 Height (Inches): 5.00 Weight (Pounds): 160 General Appearance: mild distress Cardiovascular: normal rate Respiratory/Chest: decreased breath sounds Abdomen: soft Objective No change Jack Pryor MD May 27, 2020 15:01
[2020-05-27] MEDS: HydrOXYzine tab 25mg tab ORAL SCH (21:09)
[2020-05-28] VITALS (10 sets, daily range): BP systolic 125–190; BP diastolic 71–100
[2020-05-28] MEDS: HydrALAZINE 25mg tab ORAL PRN ×2 (04:04→22:33)
[2020-05-28] MEDS: HydrOXYzine tab 25mg tab ORAL SCH ×3 (04:05→21:10)
[2020-05-28] MEDS: HYDROcodone/Acetamin 10/325 tab ORAL PRN ×4 (04:06→21:11)
[2020-05-28] MEDS: HydrALAZINE 50mg tab ORAL SCH ×3 (06:30→21:10)
--- NOTE | 2020-05-28 07:52 | General Progress Note ---
Subjective ROS Limited/Unobtainable: No Constitutional: Reports: fever, malaise, weakness HEENT: Reports: no symptoms Cardiovascular: Reports: no symptoms Respiratory: Reports: no symptoms Gastrointestinal/Abdominal: Reports: no symptoms Genitourinary: Reports: no symptoms Neurologic/Psychiatric: Reports: anxiety, depressed, emotional problems Endocrine: Reports: no symptoms Hematologic/Lymphatic: Reports: no symptoms Allergies: Coded Allergies: ASPIRIN (Unverified Allergy, Unknown, 01/16/20) IODINE (Verified Allergy, Unknown, 01/07/20) Uncoded Allergies: CONTRAST DYE (Allergy, Unknown, 01/07/20) NSAID (Allergy, Unknown, 04/24/20) All Systems: reviewed and negative except above Subjective febrile and agitated. pulling out iv. no cough, no diarrhea.+buttocks pain. Objective Last 24 Hour Vital Signs Date Time Temp Pulse Resp B/P (MAP) Pulse Ox O2 Delivery O2 Flow Rate FiO2 05/28/20 06:30 161/89 05/28/20 06:00 98.2 161/89 (113) 05/28/20 04:04 163/100 05/28/20 04:00 99.9 101 20 163/100 (121) 92 05/28/20 00:49 101.1 05/28/20 00:00 101.5 102 20 169/94 (119) 92 05/27/20 23:44 109 18 169/92 92 05/27/20 23:14 94 18 157/96 96 05/27/20 22:39 157/96 (116) 05/27/20 22:00 183/101 (128) 05/27/20 21:56 183/101 05/27/20 21:45 183/101 (128) 05/27/20 21:12 193/118 05/27/20 21:00 Nasal Cannula 2.0 05/27/20 20:00 99.7 94 18 193/118 (143) 96 05/27/20 18:35 99.5 05/27/20 16:00 101.9 90 20 160/84 (109) 95 05/27/20 13:31 177/84 05/27/20 12:00 98.0 85 20 170/90 (116) 95 05/27/20 09:35 83 177/94 05/27/20 08:00 98.1 83 20 177/94 (121) 95 05/27/20 07:58 Nasal Cannula 2.0 Intake and Output 05/27/20 05/28/20 19:00 07:00 Intake Total 320 ml 240 ml Output Total 2000 ml Balance -1680 ml 240 ml Intake Oral 320 ml 240 ml Output Urine Total 0 ml Hemodialysis UF 2000 ml # Voids 4 # Bowel Movements 1 3 Laboratory Tests 05/27/20 09:25: Sodium Level 134L, Potassium Level 4.6, Chloride Level 97L, Carbon Dioxide Level 29, Anion Gap 8, Blood Urea Nitrogen 23H, Creatinine 5.8H, Estimat Glomerular Filtration Rate 8.8, Glucose Level 87, Calcium Level 8.4L, Phosphorus Level 3.9, Total Bilirubin 0.6, Aspartate Amino Transf (AST/SGOT) 36, Alanine Aminotransferase (ALT/SGPT) 19, Alkaline Phosphatase 74, Total Protein 9.1H, Albumin 3.4, Globulin 5.7, Albumin/Globulin Ratio 0.6L Height (Feet): 5 Height (Inches): 5.00 Weight (Pounds): 160 Objective General Appearance: WD/WN, alert, mild distress, agitated EENT: normal ENT inspection Neck: non-tender, normal alignment, supple Cardiovascular: normal peripheral pulses, normal rate, regular rhythm Respiratory/Chest: chest wall non-tender, lungs clear, normal breath sounds, no respiratory distress Abdomen: normal bowel sounds, non tender, soft, no organomegaly Edema: no edema noted Arm (L), no edema noted Arm (R) 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, alert, responsive Skin: other - ?abrasion between buttocks Assessment/Plan Problem List: (1) Hypertensive urgency ICD Codes: I16.0 - Hypertensive urgency SNOMED: 848304474 (2) HIV disease ICD Codes: B20 - Human immunodeficiency virus [HIV] disease SNOMED: 42455001 (3) CHF (congestive heart failure), NYHA class II ICD Codes: I50.9 - Heart failure, unspecified SNOMED: 517623380, 612127102 (4) ESRD (end stage renal disease) on dialysis ICD Codes: N18.6 - End stage renal disease; Z99.2 - Dependence on renal dialysis SNOMED: 363133869 (5) Substance abuse ICD Codes: F19.10 - Other psychoactive substance abuse, uncomplicated SNOMED: 56847012 Status: stable, progressing Assessment/Plan: iv abx ordered espana culture cxr cultures HD per renal check culture from perm cath ID Consult called dvt/stress ulcer prophylaxis Michael Peralta MD May 28, 2020 07:52
--- NOTE | 2020-05-28 08:23 | Diagnostic Imaging Report ---
EXAM: XR Chest, 1 View CLINICAL HISTORY: INFECT TECHNIQUE: Frontal view of the chest. COMPARISON: 05/24/20 FINDINGS: Lungs: There is improving mild perihilar and lower lobe pulmonary edema. There is unchanged mild right basilar atelectasis. Pleural space: There is unchanged small right pleural effusion. No pneumothorax. Heart: Unchanged mild cardiomegaly Mediastinum: Unremarkable. Bones/joints: Unremarkable. Tubes, lines and devices: There is a left IJ central venous dialysis catheter in unchanged position. IMPRESSION: Improving mild pulmonary edema
[2020-05-28] MEDS ORDERED: Vancomycin 1750mg/D5W 550ml IVPB ONE ×2 (09:00)
[2020-05-28] MEDS: Heparin 5000 units/ml inj SUBQ SCH ×2 (09:00→21:00)
[2020-05-28] MEDS: Docusate 100mg cap ORAL SCH ×3 (09:32→17:29)
--- NOTE | 2020-05-28 13:11 | Nephrology Progress Note ---
Assessment/Plan Problem List: (1) ESRD (end stage renal disease) on dialysis (2) HIV disease (3) HCV antibody positive (4) Hypertensive urgency (5) Substance abuse Assessment Patient admitted with hypertensive urgency (1) ESRD (end stage renal disease) on dialysis (2) HIV disease (3) Cocaine abuse (4) Noncompliance (5) Anemia of chronic kidney disease Plan May 28: Patient febrile. Cultures taken during dialysis. Vancomycin 1 dose given. Will check labs tomorrow. A temporary catheter may need to be discontinued and replaced if blood cultures positive. Continue per consultants. May 27: Patient in mild distress due to itching and generalized pain. Was dialyzed yesterday. Will dialyze again tomorrow. Will start on Atarax [id number] for itching. Labs reviewed, medications reviewed and adjusted. B12 subcu and to p.o. Synthroid ordered Patient was dialyzed 05/24, will dialyze today Will adjust blood pressure medication Per orders Subjective ROS Limited/Unobtainable: No Constitutional: Reports: malaise Objective Objective Last 24 Hour Vital Signs Date Time Temp Pulse Resp B/P (MAP) Pulse Ox O2 Delivery O2 Flow Rate FiO2 05/28/20 12:40 68 142/71 (94) 05/28/20 12:00 100.2 92 20 170/91 (117) 95 05/28/20 12:00 100.2 92 20 170/91 (117) 95 05/28/20 10:06 102.4 05/28/20 10:02 102.4 05/28/20 09:00 120 161/89 05/28/20 09:00 Nasal Cannula 2.0 05/28/20 08:00 102.4 120 20 161/89 (113) 95 05/28/20 06:30 161/89 05/28/20 06:00 98.2 161/89 (113) 05/28/20 04:04 163/100 05/28/20 04:00 99.9 101 20 163/100 (121) 92 05/28/20 00:49 101.1 05/28/20 00:00 101.5 102 20 169/94 (119) 92 05/27/20 23:44 109 18 169/92 92 05/27/20 23:14 94 18 157/96 96 05/27/20 22:39 157/96 (116) 05/27/20 22:00 183/101 (128) 05/27/20 21:56 183/101 05/27/20 21:45 183/101 (128) 05/27/20 21:12 193/118 05/27/20 21:00 Nasal Cannula 2.0 05/27/20 20:00 99.7 94 18 193/118 (143) 96 05/27/20 18:35 99.5 05/27/20 16:00 101.9 90 20 160/84 (109) 95 05/27/20 13:31 177/84 Intake and Output 0 05/27/20 05/28/20 19:00 07:00 Intake Total 320 ml 240 ml Output Total 2000 ml Balance -1680 ml 240 ml Intake Oral 320 ml 240 ml Output Urine Total 0 ml Hemodialysis UF 2000 ml # Voids 4 # Bowel Movements 1 3 Current Medications Medications (Trade) Dose Ordered Sig/Rochelle Route PRN Reason Start Time Stop Time Status Last Admin Dose Admin Acetaminophen (Tylenol) 650 mg Q6H PRN ORAL Temp >100.5 05/27/20 18:00 06/26/20 17:59 05/28/20 09:36 Acetaminophen/ Hydrocodone Bitart ([place] 10) 1 tab Q4H PRN ORAL Moderate Pain (4-6) 05/24/20 16:00 05/31/20 15:59 05/28/20 09:32 Amlodipine Besylate (Norvasc) 10 mg DAILY ORAL 05/24/20 16:00 06/23/20 15:59 05/27/20 09:35 Diphenhydramine HCl (Benadryl) 25 mg Q6H PRN ORAL Itching 05/25/20 08:30 06/24/20 08:29 05/27/20 05:09 Docusate Sodium (Colace) 100 mg TID ORAL 05/25/20 13:00 06/23/20 17:59 05/28/20 09:32 Dolutegravir Sodium (Tivicay) 50 mg DAILY ORAL 05/24/20 16:00 08/22/20 15:59 UNV Epoetin Jose (Epoetin Jose(ESRD on dialysis)) 10,000 unit FRI-FRI-FRI SUBQ 05/26/20 21:00 08/24/20 20:59 05/26/20 20:10 Heparin Sodium (Porcine) (Heparin 5000 units/ml) 5,000 units EVERY 12 HOURS SUBQ 05/24/20 21:00 07/08/20 20:59 Hydralazine HCl (Apresoline) 25 mg Q6H PRN ORAL For High Blood Pressure 05/24/20 16:00 08/22/20 15:59 05/28/20 04:04 Hydralazine HCl (Apresoline) 50 mg EVERY 8 HOURS ORAL 05/24/20 16:00 08/22/20 15:59 05/28/20 06:30 Hydromorphone HCl (Dilaudid) 0.5 mg Q4H PRN IVP Moderate Pain (Pain Scale 4-6) 05/28/20 08:00 06/04/20 07:59 Hydromorphone HCl (Dilaudid) 2 mg DAILYPRN PRN IVP Severe Pain (Pain Scale 7-10) 05/27/20 10:45 06/03/20 10:44 05/27/20 10:48 Hydroxyzine HCl (Atarax) 25 mg Q8H ORAL 05/27/20 20:30 06/26/20 20:29 05/28/20 04:05 Levothyroxine Sodium (Synthroid) 75 mcg Q24H ORAL 05/27/20 06:30 06/26/20 06:29 05/28/20 06:30 Lorazepam (Ativan) 1 mg Q6H PRN ORAL For Anxiety 05/24/20 16:00 05/31/20 15:59 05/27/20 23:14 Nitroglycerin (Ntg) 0.4 mg Q5M PRN SL Prn Chest Pain 05/24/20 10:45 06/23/20 10:44 Ondansetron HCl (Zofran) 4 mg Q6H PRN IVP Nausea & Vomiting 05/24/20 16:00 06/23/20 15:59 Pantoprazole (Protonix) 40 mg DAILY ORAL 05/26/20 09:00 06/25/20 08:59 05/28/20 09:27 Sodium Chloride 1,000 ml @ 500 mls/hr Q2H PRN IVLG sbp<90 during hd 05/25/20 17:30 06/24/20 17:29 Vancomycin HCl (Vanco pharmacy to dose) 1 ea DAILY PRN MISC Per rx protocol 05/28/20 08:00 06/27/20 07:59 Height (Feet): 5 Height (Inches): 5.00 Weight (Pounds): 160 General Appearance: mild distress Cardiovascular: tachycardia Respiratory/Chest: decreased breath sounds Abdomen: soft Objective No change Jack Pryor MD May 28, 2020 13:11
--- NOTE | 2020-05-28 18:47 | Cardiology Progress Note ---
Subjective DATE OF SERVICE: May 28, 2020 s/p HD/ UF on 05/26/20. Spiking fevers last night over 101. Still c/o back pain and anxiety; asks for IV pain meds repeatedly. No CP or SOB Has a painful buttocks wound now Objective Last 24 Hour Vital Signs Date Time Temp Pulse Resp B/P (MAP) Pulse Ox O2 Delivery O2 Flow Rate FiO2 05/28/20 16:00 97.7 119 20 125/87 (100) 94 05/28/20 14:23 100.2 05/28/20 13:52 140/72 05/28/20 13:30 140/72 (94) 05/28/20 12:40 68 142/71 (94) 05/28/20 12:00 100.2 92 20 170/91 (117) 95 05/28/20 10:06 102.4 05/28/20 10:02 102.4 05/28/20 09:00 120 161/89 05/28/20 09:00 Nasal Cannula 2.0 05/28/20 08:00 102.4 120 20 161/89 (113) 95 05/28/20 06:30 161/89 05/28/20 06:00 98.2 161/89 (113) 05/28/20 04:04 163/100 05/28/20 04:00 99.9 101 20 163/100 (121) 92 05/28/20 00:49 101.1 05/28/20 00:00 101.5 102 20 169/94 (119) 92 05/27/20 23:44 109 18 169/92 92 05/27/20 23:14 94 18 157/96 96 05/27/20 22:39 157/96 (116) 05/27/20 22:00 183/101 (128) 05/27/20 21:56 183/101 05/27/20 21:45 183/101 (128) 05/27/20 21:12 193/118 05/27/20 21:00 Nasal Cannula 2.0 05/27/20 20:00 99.7 94 18 193/118 (143) 96 ROS: unchanged from my evaluation of 05/24/20 RHYTHM: NSR, SB, PACs LUNGS: lungs clear bilaterally CARDIAC: normal rate, regular rhythm, normal S1 and S2, gallop/S4 ABDOMEN: non tender, soft, no organomegaly, no mass EXTREMITIES: No edema, other - skin wound per nursing documentation Microbiology Date/Time Source Procedure Growth Status 05/27/20 19:05 Blood Blood Culture - Preliminary Resulted 05/27/20 19:00 Blood Blood Culture - Preliminary Resulted Assessment/Plan Assessment/Plan Fevers - possible new line infection Acute on chronic Diastolic CHF Hypertensive urgency - resolved ESRD - with missed dialysis session Anginal episode precipitated by above HHD 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
[2020-05-28] MEDS: LORazepam 1mg tab ORAL PRN (22:33)
[2020-05-29] VITALS: BP 141/79
[2020-05-29 04:00] VITALS: BP 140/78
[2020-05-29] MEDS: HydrALAZINE 50mg tab ORAL SCH ×3 (05:17→22:24)
[2020-05-29] MEDS: HydrOXYzine tab 25mg tab ORAL SCH ×3 (05:17→22:24)
[2020-05-29] MEDS: HYDROmorphone 1mg/ml Carpuject IVP PRN ×3 (05:18→22:26)
[2020-05-29 06:34] LABS: BASOPHILS % (AUTO) 0.8 % (0.0-2.0); EOSINOPHILS % (AUTO) 0.4 % (0.0-3.0); HEMATOCRIT 29.1 % (37.0-47.0); HEMOGLOBIN 9.3 G/DL (12.0-16.0); LYMPHOCYTES % (AUTO) 8.5 % (20.0-45.0); MEAN CORPUSCULAR VOLUME 92 FL (80-99); MONOCYTES % (AUTO) 6.7 % (1.0-10.0); NEUTROPHILS % (AUTO) 83.6 % (45.0-75.0); PLATELET COUNT 101 K/UL (150-450); RED BLOOD COUNT 3.16 M/UL (4.20-5.40); RED CELL DISTRIBUTION WIDTH 15.9 % (11.6-14.8)
[2020-05-29 07:05] LABS: ALANINE AMINOTRANSFERASE < 6 U/L (12-78); ALBUMIN 3.1 G/DL (3.4-5.0); ALBUMIN/GLOBULIN RATIO 0.6 (1.0-2.7); ALKALINE PHOSPHATASE 61 U/L (46-116); ANION GAP 9 mmol/L (5-15); ASPARTATE AMINO TRANSFERASE 22 U/L (15-37); BILIRUBIN,TOTAL 0.6 MG/DL (0.2-1.0); BLOOD UREA NITROGEN 28 mg/dL (7-18); CALCIUM 7.4 MG/DL (8.5-10.1); CARBON DIOXIDE 30 MMOL/L (21-32); CHLORIDE 95 MMOL/L (98-107); CREATININE 5.7 MG/DL (0.55-1.30); PHOSPHORUS 3.9 MG/DL (2.5-4.9); POTASSIUM 4.3 MMOL/L (3.5-5.1); SODIUM 134 MMOL/L (136-145)
--- NOTE | 2020-05-29 07:07 | General Progress Note ---
Subjective ROS Limited/Unobtainable: No Constitutional: Reports: malaise, weakness HEENT: Reports: no symptoms Cardiovascular: Reports: chest pain Respiratory: Reports: shortness of breath Gastrointestinal/Abdominal: Reports: no symptoms Genitourinary: Reports: no symptoms Neurologic/Psychiatric: Reports: no symptoms Endocrine: Reports: no symptoms Hematologic/Lymphatic: Reports: no symptoms Allergies: Coded Allergies: ASPIRIN (Unverified Allergy, Unknown, 01/16/20) IODINE (Verified Allergy, Unknown, 01/07/20) Uncoded Allergies: CONTRAST DYE (Allergy, Unknown, 01/07/20) NSAID (Allergy, Unknown, 04/24/20) All Systems: reviewed and negative except above Subjective fevers better. on iv abx. +blood cultures noted. pain controlled. Objective Last 24 Hour Vital Signs Date Time Temp Pulse Resp B/P (MAP) Pulse Ox O2 Delivery O2 Flow Rate FiO2 05/29/20 05:17 140/78 05/29/20 04:00 98.7 85 18 140/78 (98) 96 05/29/20 00:00 98.5 93 22 141/79 (99) 96 05/28/20 23:03 93 22 141/79 96 05/28/20 22:33 162/86 05/28/20 22:33 91 20 162/86 99 05/28/20 21:10 190/93 05/28/20 21:00 Nasal Cannula 2.0 05/28/20 21:00 162/81 (108) 05/28/20 20:00 98.7 95 22 190/93 (125) 97 05/28/20 18:50 91 99 05/28/20 16:00 97.7 119 20 125/87 (100) 94 05/28/20 14:23 100.2 05/28/20 13:52 140/72 05/28/20 13:30 140/72 (94) 05/28/20 12:40 68 142/71 (94) 05/28/20 12:00 100.2 92 20 170/91 (117) 95 05/28/20 10:06 102.4 05/28/20 10:02 102.4 05/28/20 09:00 120 161/89 05/28/20 09:00 Nasal Cannula 2.0 05/28/20 08:00 102.4 120 20 161/89 (113) 95 Intake and Output 05/28/20 05/29/20 19:00 07:00 Intake Total 360 ml 780 ml Output Total 3000 ml Balance -2640 ml 780 ml Intake Oral 360 ml 780 ml Hemodialysis UF 3000 ml # Voids 3 2 # Bowel Movements 2 1 Laboratory Tests 05/29/20 04:30: White Blood Count 7.0, Red Blood Count 3.16L, Hemoglobin 9.3L, Hematocrit 29.1L, Mean Corpuscular Volume 92, Mean Corpuscular Hemoglobin 29.3, Mean Corpuscular Hemoglobin Concent 31.9L, Red Cell Distribution Width 15.9H, Platelet Count 101L , Mean Platelet Volume 7.1, Neutrophils (%) (Auto) 83.6H, Lymphocytes (%) (Auto) 8.5L, Monocytes (%) (Auto) 6.7, Eosinophils (%) (Auto) 0.4, Basophils (%) (Auto) 0.8, Sodium Level [Pending], Potassium Level [Pending], Chloride Level [Pending], Carbon Dioxide Level [Pending], Blood Urea Nitrogen [Pending], Creatinine [Pending], Estimat Glomerular Filtration Rate [Pending], Glucose Lev el [Pending], Uric Acid [Pending], Calcium Level [Pending], Phosphorus Level [Pending], Magnesium Level [Pending], Total Bilirubin [Pending], Aspartate Amino Transf (AST/SGOT) [Pending], Alanine Aminotransferase (ALT/SGPT) [Pending], Alkaline Phosphatase [Pending], C-Reactive Protein, Quantitative [Pending], Pro-B-Type Natriuretic Peptide [Pending], Total Protein [Pending], Albumin [Pending], Globulin [Pending], Random Vancomycin Level [Pending] Height (Feet): 5 Height (Inches): 5.00 Weight (Pounds): 160 Objective General Appearance: WD/WN, alert, mild distress, agitated EENT: normal ENT inspection Neck: non-tender, normal alignment, supple Cardiovascular: normal peripheral pulses, normal rate, regular rhythm Respiratory/Chest: chest wall non-tender, lungs clear, normal breath sounds, no respiratory distress Abdomen: normal bowel sounds, non tender, soft, no organomegaly Edema: no edema noted Arm (L), no edema noted Arm (R) 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, alert, responsive Skin: other - ?abrasion between buttocks Assessment/Plan Problem List: (1) Hypertensive urgency ICD Codes: I16.0 - Hypertensive urgency SNOMED: 474400428 (2) HIV disease ICD Codes: B20 - Human immunodeficiency virus [HIV] disease SNOMED: 10612204 (3) CHF (congestive heart failure), NYHA class II ICD Codes: I50.9 - Heart failure, unspecified SNOMED: 260590819, 472314722 (4) ESRD (end stage renal disease) on dialysis ICD Codes: N18.6 - End stage renal disease; Z99.2 - Dependence on renal dialysis SNOMED: 430152759 (5) Substance abuse ICD Codes: F19.10 - Other psychoactive substance abuse, uncomplicated SNOMED: 18152149 Status: stable, progressing Assessment/Plan: iv abx follow up + cultures follow up culture from perm cath HD per renal check culture from perm cath ID Consult pending wound care tylenol for fever dvt/stress ulcer prophylaxis may have to remove perm cath Michael Peralta MD May 29, 2020 07:07
[2020-05-29 08:00] VITALS: BP 148/77
[2020-05-29] MEDS: Heparin 5000 units/ml inj SUBQ SCH ×2 (08:00→21:48)
[2020-05-29] MEDS: Docusate 100mg cap ORAL SCH ×3 (08:23→18:35)
[2020-05-29] MEDS ORDERED: Vancomycin 750mg/NS 275ml IVPB ONE ×2 (09:00)
[2020-05-29 12:00] VITALS: BP 139/69
--- NOTE | 2020-05-29 12:12 | Nephrology Progress Note ---
Assessment/Plan Problem List: (1) ESRD (end stage renal disease) on dialysis (2) HIV disease (3) HCV antibody positive (4) Hypertensive urgency (5) Substance abuse Assessment Patient admitted with hypertensive urgency (1) ESRD (end stage renal disease) on dialysis (2) HIV disease (3) Cocaine abuse (4) Noncompliance (5) Anemia of chronic kidney disease Plan May 29: Patient remains febrile. Nontoxic. Dialyzed yesterday. Next dialysis tomorrow. Preliminary blood cultures positive for gram-positive's. Most likely source dialysis catheter. CRP jumped up to 14. Continue per ID advice. Keep the blood pressure and blood sugar in check. Will obtain repeated blood culture tomorrow during dialysis. Patient on vancomycin. May 28: Patient febrile. Cultures taken during dialysis. Vancomycin 1 dose given. Will check labs tomorrow. A temporary catheter may need to be discontinued and replaced if blood cultures positive. Continue per consultants. May 27: Patient in mild distress due to itching and generalized pain. Was dialyzed yesterday. Will dialyze again tomorrow. Will start on Atarax [id number] for itching. Labs reviewed, medications reviewed and adjusted. B12 subcu and to p.o. Synthroid ordered Patient was dialyzed 05/24, will dialyze today Will adjust blood pressure medication Per orders Objective Objective Last 24 Hour Vital Signs Date Time Temp Pulse Resp B/P (MAP) Pulse Ox O2 Delivery O2 Flow Rate FiO2 05/29/20 12:00 99.7 83 20 139/69 (92) 96 05/29/20 10:07 97.5 05/29/20 09:00 Nasal Cannula 2.0 05/29/20 08:53 97.5 05/29/20 08:23 87 148/77 05/29/20 08:00 102.6 87 20 148/77 (100) 96 05/29/20 05:17 140/78 05/29/20 04:00 98.7 85 18 140/78 (98) 96 05/29/20 00:00 98.5 93 22 141/79 (99) 96 05/28/20 23:03 93 22 141/79 96 05/28/20 22:33 162/86 05/28/20 22:33 91 20 162/86 99 05/28/20 21:10 190/93 05/28/20 21:00 Nasal Cannula 2.0 05/28/20 21:00 162/81 (108) 05/28/20 20:00 98.7 95 22 190/93 (125) 97 05/28/20 18:50 91 99 05/28/20 16:00 97.7 119 20 125/87 (100) 94 05/28/20 14:23 100.2 05/28/20 13:52 140/72 05/28/20 13:30 140/72 (94) 05/28/20 12:40 68 142/71 (94) Intake and Output 05/28/20 05/29/20 19:00 07:00 Intake Total 360 ml 780 ml Output Total 3000 ml Balance -2640 ml 780 ml Intake Oral 360 ml 780 ml Hemodialysis UF 3000 ml # Voids 3 2 # Bowel Movements 2 1 Laboratory Tests 05/29/20 04:30: White Blood Count 7.0, Red Blood Count 3.16L, Hemoglobin 9.3L, Hematocrit 29.1L, Mean Corpuscular Volume 92, Mean Corpuscular Hemoglobin 29.3, Mean Corpuscular Hemoglobin Concent 31.9L, Red Cell Distribution Width 15.9H, Platelet Count 101L , Mean Platelet Volume 7.1, Neutrophils (%) (Auto) 83.6H, Lymphocytes (%) (Auto) 8.5L, Monocytes (%) (Auto) 6.7, Eosinophils (%) (Auto) 0.4, Basophils (%) (Auto) 0.8, Sodium Level 134L, Potassium Level 4.3, Chloride Level 95L, Carbon Dioxide Level 30, Anion Gap 9, Blood Urea Nitrogen 28H, Creatinine 5.7H, Estimat Glomerular Filtration Rate 9.0, Glucose Level 72L, Uric Acid 3.9, Calcium Level 7.4L, Phosphorus Level 3.9, Magnesium Level 2.4, Total Bilirubin 0.6, Aspartate Amino Transf (AST/SGOT) 22, Alanine Aminotransferase (ALT/SGPT) < 6L, Alkaline Phosphatase 61, C-Reactive Protein, Quantitative 14.0H, Pro-B-Type Natriuretic Peptide > 31733Q, Total Protein 8.4H, Albumin 3.1L, Globulin 5.3, Albumin/Globulin Ratio 0.6L, Random Vancomycin Level 14.9 Height (Feet): 5 Height (Inches): 5.00 Weight (Pounds): 160 Objective No change Jack Pryor MD May 29, 2020 12:11
--- NOTE | 2020-05-29 15:15 | Consultation ---
DATE OF CONSULTATION: 05/29/2020 INFECTIOUS DISEASE CONSULTATION CONSULTING PHYSICIAN: Elvis Garibay MD. REFERRING PHYSICIAN: Michael Peralta MD. REASON FOR CONSULTATION: Sepsis. HISTORY OF PRESENTING ILLNESS: This is a 69-year-old lady with history of hypertension, renal failure, conduction system disease, HIV, who comes in because she had missed dialysis and had uncontrolled hypertension. There was a concern for sepsis and an Infectious Diseases consultation has been obtained for antibiotics. PAST MEDICAL HISTORY: 1. History of hypertension. 2. Conduction system disease. 3. HIV. 4. Renal failure, on dialysis. SOCIAL HISTORY: She is a smoker. She does not drink or use drugs. FAMILY HISTORY: Noncontributory. REVIEW OF SYSTEMS: RESPIRATORY: No fever, chills, cough, shortness of breath, or chest pain. CARDIAC: No chest pain. No palpitation. No dizziness. No syncope. GASTROINTESTINAL: No nausea. No vomiting. No abdominal pain or diarrhea. MUSCULOSKELETAL: She complains of pain. MEDICATIONS: As an inpatient, she is on IV vancomycin, hydroxyzine, Tylenol, Dilaudid, levothyroxine, Epogen, Protonix, docusate, Benadryl, subcutaneous heparin, Zofran, hydralazine, lorazepam, [place], Dolutegravir, amlodipine, nitroglycerin. ALLERGIES: 1. Aspirin. 2. Contrast dye. 3. NSAIDs. PHYSICAL EXAMINATION: VITAL SIGNS: Temperature 97.5, T-max of 102.6, pulse 87, respiratory rate 20, blood pressure 148/77, O2 saturation of 96%. HEENT: Pupils equally reactive to light and accommodation. Mouth appears clean without thrush. NECK: Supple. No adenopathy. No JVD. CARDIOVASCULAR: Regular rate and rhythm. No murmurs. LUNGS: Clear to auscultation bilaterally. No crackles. No wheezes. ABDOMEN: Soft, nontender. No organomegaly. EXTREMITIES: No cyanosis, no clubbing, no edema. Left subclavian catheter noted. LABORATORY AND DIAGNOSTIC DATA: White count 7, hemoglobin 9.3, hematocrit 29.1, MCV 92, platelet count of 101,000. Neutrophils of 83%. Sodium 134, potassium 4.3, chloride 95, bicarb 30, BUN 28, creatinine 5.7. Glucose 72. Calcium of 7.4. AST 22, ALT less than 6, alkaline phosphatase 61. C-reactive protein of 14. Beta-natriuretic peptide more than 35,000. Total protein 8.4, albumin 3.1. Hepatitis B surface antigen is pending. Blood cultures from 05/27/2020 is showing gram-positive cocci in clusters. 05/28/2020, blood culture showing gram-positive cocci in clusters. 05/24/2020, nasal swab was negative for MRSA. Chest x-ray on 05/24/2020 is showing mild right base atelectasis and small right-sided pleural effusion. 05/28/2020, chest x-ray showing improving mild pulmonary edema. ASSESSMENT: This is a 69-year-old lady with history of HIV, renal failure, hypertension, who comes in after missing her dialysis with uncontrolled hypertension and is found to have, 1. Gram-positive sepsis, would be concerned regarding catheter infection. 2. Fever. 3. Renal failure. 4. Hypertension. PLAN: 1. Continue IV vancomycin. 2. Consider removal of the left subclavian catheter. 3. We will follow up cultures. I would like to thank Dr. Peralta for this consultation. Elvis Garibay M.D. DR: TRES JOB#: [id number] CC:
[2020-05-29 16:00] VITALS: BP 140/75
[2020-05-29] MEDS: Dolutegravir Sodium 50mg tab ORAL SCH (18:45)
[2020-05-29 20:00] VITALS: BP 147/77
--- NOTE | 2020-05-29 21:34 | Cardiology Progress Note ---
Subjective DATE OF SERVICE: May 29, 2020 s/p HD/ UF on 05/26/20. Still with fevers, but defervescing slowly. Blood cultures positive for gram + cocci; suspected "line" source. Still c/o back pain and anxiety; asks for IV pain meds repeatedly. No CP or SOB Objective Last 24 Hour Vital Signs Date Time Temp Pulse Resp B/P (MAP) Pulse Ox O2 Delivery O2 Flow Rate FiO2 05/29/20 19:10 99.2 05/29/20 16:00 99.2 85 20 140/75 (96) 96 05/29/20 14:43 139/69 05/29/20 12:00 99.7 83 20 139/69 (92) 96 05/29/20 10:07 97.5 05/29/20 09:00 Nasal Cannula 2.0 05/29/20 08:53 97.5 05/29/20 08:23 87 148/77 05/29/20 08:00 102.6 87 20 148/77 (100) 96 05/29/20 05:17 140/78 05/29/20 04:00 98.7 85 18 140/78 (98) 96 05/29/20 00:00 98.5 93 22 141/79 (99) 96 05/28/20 23:03 93 22 141/79 96 05/28/20 22:33 162/86 05/28/20 22:33 91 20 162/86 99 ROS: unchanged from my evaluation of 05/24/20 RHYTHM: NSR, SB, PACs LUNGS: lungs clear bilaterally CARDIAC: normal rate, regular rhythm, normal S1 and S2, gallop/S4 ABDOMEN: non tender, soft, no organomegaly, no mass EXTREMITIES: No edema, other - skin wound per nursing documentation Laboratory Tests Test 05/29/20 04:30 White Blood Count 7.0 K/UL (4.8-10.8) Red Blood Count 3.16 M/UL (4.20-5.40) L Hemoglobin 9.3 G/DL (12.0-16.0) L Hematocrit 29.1 % (37.0-47.0) L Mean Corpuscular Volume 92 FL (80-99) Mean Corpuscular Hemoglobin 29.3 PG (27.0-31.0) Mean Corpuscular Hemoglobin Concent 31.9 G/DL (32.0-36.0) L Red Cell Distribution Width 15.9 % (11.6-14.8) H Platelet Count 101 K/UL (150-450) L Mean Platelet Volume 7.1 FL (6.5-10.1) Neutrophils (%) (Auto) 83.6 % (45.0-75.0) H Lymphocytes (%) (Auto) 8.5 % (20.0-45.0) L Monocytes (%) (Auto) 6.7 % (1.0-10.0) Eosinophils (%) (Auto) 0.4 % (0.0-3.0) Basophils (%) (Auto) 0.8 % (0.0-2.0) Sodium Level 134 MMOL/L (136-145) L Potassium Level 4.3 MMOL/L (3.5-5.1) Chloride Level 95 MMOL/L (98-107) L Carbon Dioxide Level 30 MMOL/L (21-32) Anion Gap 9 mmol/L (5-15) Blood Urea Nitrogen 28 mg/dL (7-18) H Creatinine 5.7 MG/DL (0.55-1.30) H Estimat Glomerular Filtration Rate 9.0 mL/min (>60) Glucose Level 72 MG/DL (74-106) L Uric Acid 3.9 MG/DL (2.6-7.2) Calcium Level 7.4 MG/DL (8.5-10.1) L Phosphorus Level 3.9 MG/DL (2.5-4.9) Magnesium Level 2.4 MG/DL (1.8-2.4) Total Bilirubin 0.6 MG/DL (0.2-1.0) Aspartate Amino Transf (AST/SGOT) 22 U/L (15-37) Alanine Aminotransferase (ALT/SGPT) < 6 U/L (12-78) L Alkaline Phosphatase 61 U/L (46-116) C-Reactive Protein, Quantitative 14.0 mg/dL (0.00-0.90) H Pro-B-Type Natriuretic Peptide > 24887 pg/mL (0-125) H Total Protein 8.4 G/DL (6.4-8.2) H Albumin 3.1 G/DL (3.4-5.0) L Globulin 5.3 g/dL Albumin/Globulin Ratio 0.6 (1.0-2.7) L Random Vancomycin Level 14.9 ug/mL Microbiology Date/Time Source Procedure Growth Status 05/28/20 11:00 Blood Blood Culture - Preliminary Resulted 05/28/20 11:00 Blood Blood Culture - Preliminary Resulted 05/27/20 19:05 Blood Blood Culture - Preliminary Staphylococcus Aureus Resulted 05/27/20 19:00 Blood Blood Culture - Preliminary Staphylococcus Aureus Resulted Assessment/Plan Assessment/Plan Fevers - probable line infection, with increased endocarditis risk present. Acute on chronic Diastolic CHF Hypertensive urgency - resolved ESRD - with missed dialysis session Anginal episode precipitated by above HHD Sinus node disease with hx of tachy-alsya syndrome; patient has refused pacemaker Chronic cocaine abuse Buttocks wound Await final culture results. 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
[2020-05-29] MEDS: Epoetin Alfa-EPBX(ESRD on dialysis)10,000 unit/ml vial SUBQ SCH (22:25)
[2020-05-30] VITALS (7 sets, daily range): BP systolic 142–168; BP diastolic 70–97
[2020-05-30] MEDS: HydrALAZINE 50mg tab ORAL SCH ×3 (05:44→21:00)
[2020-05-30] MEDS: HydrOXYzine tab 25mg tab ORAL SCH ×3 (05:44→20:56)
[2020-05-30] MEDS: HYDROmorphone 1mg/ml Carpuject IVP PRN ×2 (05:45→11:03)
--- NOTE | 2020-05-30 08:14 | General Progress Note ---
Subjective ROS Limited/Unobtainable: No Constitutional: Reports: fever, malaise, weakness HEENT: Reports: no symptoms Cardiovascular: Reports: no symptoms Respiratory: Reports: no symptoms Gastrointestinal/Abdominal: Reports: no symptoms Genitourinary: Reports: no symptoms Neurologic/Psychiatric: Reports: anxiety, depressed, emotional problems Endocrine: Reports: no symptoms Hematologic/Lymphatic: Reports: no symptoms Allergies: Coded Allergies: ASPIRIN (Unverified Allergy, Unknown, 01/16/20) IODINE (Verified Allergy, Unknown, 01/07/20) Uncoded Allergies: CONTRAST DYE (Allergy, Unknown, 01/07/20) NSAID (Allergy, Unknown, 04/24/20) All Systems: reviewed and negative except above Subjective persistent low grade fevers. c/o generalized pain. multiple positive blood cultures noted. +generalized pain. Objective Last 24 Hour Vital Signs Date Time Temp Pulse Resp B/P (MAP) Pulse Ox O2 Delivery O2 Flow Rate FiO2 05/30/20 05:44 165/84 05/30/20 04:00 100.0 78 20 165/84 (111) 96 05/30/20 00:00 100.0 86 20 142/72 (95) 95 05/29/20 22:57 99.1 05/29/20 22:24 147/77 05/29/20 21:00 Nasal Cannula 2.0 05/29/20 20:00 100.8 84 20 147/77 (100) 96 05/29/20 19:10 99.2 05/29/20 16:00 99.2 85 20 140/75 (96) 96 05/29/20 14:43 139/69 05/29/20 12:00 99.7 83 20 139/69 (92) 96 05/29/20 10:07 97.5 05/29/20 09:00 Nasal Cannula 2.0 05/29/20 08:53 97.5 05/29/20 08:23 87 148/77 Intake and Output 05/29/20 05/30/20 19:00 07:00 Intake Total 960 ml 2000 ml Balance 960 ml 2000 ml Intake Oral 960 ml 2000 ml # Voids 1 Height (Feet): 5 Height (Inches): 5.00 Weight (Pounds): 160 Objective General Appearance: WD/WN, alert, mild distress, agitated EENT: normal ENT inspection Neck: non-tender, normal alignment, supple Cardiovascular: normal peripheral pulses, normal rate, regular rhythm Respiratory/Chest: chest wall non-tender, lungs clear, normal breath sounds, no respiratory distress Abdomen: normal bowel sounds, non tender, soft, no organomegaly Edema: no edema noted Arm (L), no edema noted Arm (R) 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, alert, responsive Skin: other - ?abrasion between buttocks Assessment/Plan Problem List: (1) Hypertensive urgency ICD Codes: I16.0 - Hypertensive urgency SNOMED: 014383529 (2) HIV disease ICD Codes: B20 - Human immunodeficiency virus [HIV] disease SNOMED: 74159259 (3) CHF (congestive heart failure), NYHA class II ICD Codes: I50.9 - Heart failure, unspecified SNOMED: 341910810, 856930043 (4) ESRD (end stage renal disease) on dialysis ICD Codes: N18.6 - End stage renal disease; Z99.2 - Dependence on renal dialysis SNOMED: 475579490 (5) Substance abuse ICD Codes: F19.10 - Other psychoactive substance abuse, uncomplicated SNOMED: 44672791 Status: stable, progressing Assessment/Plan: iv abx follow up + cultures follow up culture from perm cath HD per renal ID Consult appreciated wound care tylenol for fever dvt/stress ulcer prophylaxis pain rx and anxiolytics as needed dc perm cath after HD. will discuss timing with renal Michael Peralta MD May 30, 2020 08:14
[2020-05-30] MEDS: Docusate 100mg cap ORAL SCH ×3 (08:23→17:41)
[2020-05-30] MEDS: Heparin 5000 units/ml inj SUBQ SCH ×2 (08:24→20:55)
[2020-05-30] MEDS: HYDROcodone/Acetamin 10/325 tab ORAL PRN ×2 (08:24→20:57)
[2020-05-30] MEDS: Dolutegravir Sodium 50mg tab ORAL SCH (08:24)
--- NOTE | 2020-05-30 09:35 | Nephrology Progress Note ---
Assessment/Plan Problem List: (1) ESRD (end stage renal disease) on dialysis (2) HIV disease (3) HCV antibody positive (4) Hypertensive urgency (5) Substance abuse Assessment Patient admitted with hypertensive urgency (1) ESRD (end stage renal disease) on dialysis (2) HIV disease (3) Cocaine abuse (4) Noncompliance (5) Anemia of chronic kidney disease Plan May 30: Low-grade fever persists. Due for dialysis today. As per ID recommendation will discontinue the dialysis catheter which may be the source of fever and bacteremia. Discussed with RN. Orders given. Will check labs tomorrow. May 29: Patient remains febrile. Nontoxic. Dialyzed yesterday. Next dialysis tomorrow. Preliminary blood cultures positive for gram-positive's. Most likely source dialysis catheter. CRP jumped up to 14. Continue per ID advice. Keep the blood pressure and blood sugar in check. Will obtain repeated blood culture tomorrow during dialysis. Patient on vancomycin. May 28: Patient febrile. Cultures taken during dialysis. Vancomycin 1 dose given. Will check labs tomorrow. A temporary catheter may need to be discontinued and replaced if blood cultures positive. Continue per consultants. May 27: Patient in mild distress due to itching and generalized pain. Was dialyzed yesterday. Will dialyze again tomorrow. Will start on Atarax [id number] for itching. Labs reviewed, medications reviewed and adjusted. B12 subcu and to p.o. Synthroid ordered Patient was dialyzed 05/24, will dialyze today Will adjust blood pressure medication Per orders 2. Dr. Townsend to call urologist the catheter again yet to talk to the person was put in the disc note thank you very much by Subjective ROS Limited/Unobtainable: No Constitutional: Reports: malaise, weakness Objective Objective Last 24 Hour Vital Signs Date Time Temp Pulse Resp B/P (MAP) Pulse Ox O2 Delivery O2 Flow Rate FiO2 05/30/20 08:00 99.0 78 20 146/76 (99) 96 05/30/20 05:44 165/84 05/30/20 04:00 100.0 78 20 165/84 (111) 96 05/30/20 00:00 100.0 86 20 142/72 (95) 95 05/29/20 22:57 99.1 05/29/20 22:24 147/77 05/29/20 21:00 Nasal Cannula 2.0 05/29/20 20:00 100.8 84 20 147/77 (100) 96 05/29/20 19:10 99.2 05/29/20 16:00 99.2 85 20 140/75 (96) 96 05/29/20 14:43 139/69 05/29/20 12:00 99.7 83 20 139/69 (92) 96 05/29/20 10:07 97.5 Intake and Output 05/29/20 05/30/20 19:00 07:00 Intake Total 960 ml 2000 ml Balance 960 ml 2000 ml Intake Oral 960 ml 2000 ml # Voids 1 Current Medications Medications (Trade) Dose Ordered Sig/Rochelle Route PRN Reason Start Time Stop Time Status Last Admin Dose Admin Acetaminophen (Tylenol) 650 mg Q6H PRN ORAL Temp >100.5 05/27/20 18:00 06/26/20 17:59 05/29/20 22:27 Acetaminophen/ Hydrocodone Bitart ([place] 10/325) 1 tab Q4H PRN ORAL Moderate Pain (4-6) 05/24/20 16:00 05/31/20 15:59 05/30/20 08:24 Amlodipine Besylate (Norvasc) 10 mg DAILY ORAL 05/24/20 16:00 06/23/20 15:59 05/29/20 08:23 Diphenhydramine HCl (Benadryl) 25 mg Q6H PRN ORAL Itching 05/25/20 08:30 06/24/20 08:29 05/30/20 08:24 Docusate Sodium (Colace) 100 mg TID ORAL 05/25/20 13:00 06/23/20 17:59 05/30/20 08:23 Dolutegravir Sodium (Tivicay) 50 mg DAILY ORAL 05/29/20 18:00 08/27/20 17:59 05/30/20 08:24 Epoetin Jose (Epoetin Jose(ESRD on dialysis)) 10,000 unit FRI-FRI-FRI SUBQ 05/26/20 21:00 08/24/20 20:59 05/29/20 22:25 Heparin Sodium (Porcine) (Heparin 5000 units/ml) 5,000 units EVERY 12 HOURS SUBQ 05/24/20 21:00 12/5/20 20:59 Hydralazine HCl (Apresoline) 25 mg Q6H PRN ORAL For High Blood Pressure 05/24/20 16:00 08/22/20 15:59 05/28/20 22:33 Hydralazine HCl (Apresoline) 50 mg EVERY 8 HOURS ORAL 05/24/20 16:00 08/22/20 15:59 05/30/20 05:44 Hydromorphone HCl (Dilaudid) 0.5 mg Q4H PRN IVP Moderate Pain (Pain Scale 4-6) 05/28/20 08:00 06/04/20 07:59 05/30/20 05:45 Hydromorphone HCl (Dilaudid) 2 mg DAILYPRN PRN IVP Severe Pain (Pain Scale 7-10) 05/27/20 10:45 06/03/20 10:44 05/29/20 18:40 Hydroxyzine HCl (Atarax) 25 mg Q8H ORAL 05/27/20 20:30 06/26/20 20:29 05/30/20 05:44 Levothyroxine Sodium (Synthroid) 75 mcg Q24H ORAL 05/27/20 06:30 06/26/20 06:29 05/30/20 05:44 Lorazepam (Ativan) 1 mg Q6H PRN ORAL For Anxiety 05/24/20 16:00 05/31/20 15:59 05/28/20 22:33 Nitroglycerin (Ntg) 0.4 mg Q5M PRN SL Prn Chest Pain 05/24/20 10:45 06/23/20 10:44 Ondansetron HCl (Zofran) 4 mg Q6H PRN IVP Nausea & Vomiting 05/24/20 16:00 06/23/20 15:59 Pantoprazole (Protonix) 40 mg BID ORAL 05/29/20 18:00 06/25/20 08:59 05/30/20 08:23 Sodium Chloride 1,000 ml @ 500 mls/hr Q2H PRN IVLG sbp<90 during hd 05/25/20 17:30 06/24/20 17:29 Vancomycin HCl (Vanco pharmacy to dose) 1 ea DAILY PRN MISC Per rx protocol 05/28/20 08:00 06/27/20 07:59 Height (Feet): 5 Height (Inches): 5.00 Weight (Pounds): 160 General Appearance: no apparent distress Cardiovascular: tachycardia Respiratory/Chest: decreased breath sounds Abdomen: distended Objective No change Jack Pryor MD May 30, 2020 09:35
--- NOTE | 2020-05-30 11:30 | Infectious Diseases Prog Note ---
Assessment/Plan Assessment/Plan antibiotics : vancomycin iv A 1. staph aureus sepsis 2. renal failure on HD 3. HIV 4. hypertension P 1. d/c iv vancomycin 2. start ancef 3. 2 d echo 4. will follow up cultures 5. consider catheter removal 6. start tivicay Subjective ROS Limited/Unobtainable: Yes Allergies: Coded Allergies: ASPIRIN (Unverified Allergy, Unknown, 01/16/20) IODINE (Verified Allergy, Unknown, 01/07/20) Uncoded Allergies: CONTRAST DYE (Allergy, Unknown, 01/07/20) NSAID (Allergy, Unknown, 04/24/20) Objective Last 24 Hour Vital Signs Date Time Temp Pulse Resp B/P (MAP) Pulse Ox O2 Delivery O2 Flow Rate FiO2 05/30/20 09:00 Room Air 05/30/20 08:00 99.0 78 20 146/76 (99) 96 05/30/20 05:44 165/84 05/30/20 04:00 100.0 78 20 165/84 (111) 96 05/30/20 00:00 100.0 86 20 142/72 (95) 95 05/29/20 22:57 99.1 05/29/20 22:24 147/77 05/29/20 21:00 Nasal Cannula 2.0 05/29/20 20:00 100.8 84 20 147/77 (100) 96 05/29/20 19:10 99.2 05/29/20 16:00 99.2 85 20 140/75 (96) 96 05/29/20 14:43 139/69 05/29/20 12:00 99.7 83 20 139/69 (92) 96 Height (Feet): 5 Height (Inches): 5.00 Weight (Pounds): 160 Respiratory/Chest: lungs clear Cardiovascular: normal rate, regular rhythm, no gallop/murmur Abdomen: soft, non tender Extremities: no edema Microbiology Date/Time Source Procedure Growth Status 05/28/20 11:00 Blood Blood Culture - Preliminary Staphylococcus Aureus Resulted 05/28/20 11:00 Blood Blood Culture - Preliminary Staphylococcus Aureus Resulted 05/27/20 19:05 Blood Blood Culture - Final Staphylococcus Aureus Complete 05/27/20 19:00 Blood Blood Culture - Final Staphylococcus Aureus Complete Current Medications Medications (Trade) Dose Ordered Sig/Rochelle Route PRN Reason Start Time Stop Time Status Last Admin Dose Admin Acetaminophen (Tylenol) 650 mg Q6H PRN ORAL Temp >100.5 05/27/20 18:00 06/26/20 17:59 05/29/20 22:27 Acetaminophen/ Hydrocodone Bitart ([place] 10/325) 1 tab Q4H PRN ORAL Moderate Pain (4-6) 05/30/20 12:00 06/06/20 11:59 Amlodipine Besylate (Norvasc) 10 mg DAILY ORAL 05/24/20 16:00 06/23/20 15:59 05/29/20 08:23 Diphenhydramine HCl (Benadryl) 25 mg Q6H PRN ORAL Itching 05/25/20 08:30 06/24/20 08:29 05/30/20 08:24 Docusate Sodium (Colace) 100 mg TID ORAL 05/25/20 13:00 06/23/20 17:59 05/30/20 08:23 Dolutegravir Sodium (Tivicay) 50 mg DAILY ORAL 05/29/20 18:00 08/27/20 17:59 05/30/20 08:24 Epoetin Jose (Epoetin Jose(ESRD on dialysis)) 10,000 unit FRI-FRI-FRI SUBQ 05/26/20 21:00 08/24/20 20:59 05/29/20 22:25 Heparin Sodium (Porcine) (Heparin 5000 units/ml) 5,000 units EVERY 12 HOURS SUBQ 05/24/20 21:00 07/08/20 20:59 Hydralazine HCl (Apresoline) 25 mg Q6H PRN ORAL For High Blood Pressure 05/24/20 16:00 08/22/20 15:59 05/28/20 22:33 Hydralazine HCl (Apresoline) 50 mg EVERY 8 HOURS ORAL 05/24/20 16:00 08/22/20 15:59 05/30/20 05:44 Hydromorphone HCl (Dilaudid) 0.5 mg Q4H PRN IVP Moderate Pain (Pain Scale 4-6) 05/28/20 08:00 06/04/20 07:59 05/30/20 11:03 Hydromorphone HCl (Dilaudid) 2 mg DAILYPRN PRN IVP Severe Pain (Pain Scale 7-10) 05/27/20 10:45 06/03/20 10:44 05/29/20 18:40 Hydroxyzine HCl (Atarax) 25 mg Q8H ORAL 05/27/20 20:30 06/26/20 20:29 05/30/20 05:44 Levothyroxine Sodium (Synthroid) 75 mcg Q24H ORAL 05/27/20 06:30 06/26/20 06:29 05/30/20 05:44 Lorazepam (Ativan) 1 mg Q6H PRN ORAL For Anxiety 05/30/20 10:00 06/06/20 09:59 Nitroglycerin (Ntg) 0.4 mg Q5M PRN SL Prn Chest Pain 05/24/20 10:45 06/23/20 10:44 Ondansetron HCl (Zofran) 4 mg Q6H PRN IVP Nausea & Vomiting 05/24/20 16:00 06/23/20 15:59 Pantoprazole (Protonix) 40 mg BID ORAL 05/29/20 18:00 06/25/20 08:59 05/30/20 08:23 Sodium Chloride 1,000 ml @ 500 mls/hr Q2H PRN IVLG sbp<90 during hd 05/25/20 17:30 06/24/20 17:29 Vancomycin HCl (Vanco pharmacy to dose) 1 ea DAILY PRN MISC Per rx protocol 05/28/20 08:00 06/27/20 07:59 Elvis Garibay MD May 30, 2020 11:30
[2020-05-30] MEDS: LORazepam 1mg tab ORAL PRN ×2 (12:28→23:29)
[2020-05-30] MEDS: ceFAZolin sod 1 GM in D5W 55 ML IVPB SCH (12:45)
[2020-05-30 15:53] LABS: APPEARANCE,URINE CLOUDY; BILIRUBIN, URINE NEGATIVE (NEGATIVE); COLOR,URINE AMBER; GLUCOSE, URINE (UA) NEGATIVE (NEGATIVE); KETONES,URINE NEGATIVE (NEGATIVE); LEUKOCYTE ESTERASE ,URINE 3+ (NEGATIVE); NITRITE,URINE NEGATIVE (NEGATIVE); PH,URINE 9 (4.5-8.0); PROTEIN,URINE 4+ (NEGATIVE); UROBILINOGEN,URINE NORMAL MG/DL (0.0-1.0)
[2020-05-30] MEDS: Patient's Own Med - Tivicay 50mg ORAL SCH (17:41)
[2020-05-30] MEDS: Patient's Own Med - Ritonavir 100mg ORAL SCH (17:43)
[2020-05-30] MEDS: HydrALAZINE 25mg tab ORAL PRN (18:15)
--- NOTE | 2020-05-30 23:23 | Cardiology Progress Note ---
Subjective DATE OF SERVICE: May 30, 2020 s/p HD/ UF on 05/29/20. Still with fevers, but defervescing slowly. Blood cultures positive for S.aureus (MSSA). Still c/o back pain and anxiety; asks for IV pain meds repeatedly. No CP or SOB Objective Last 24 Hour Vital Signs Date Time Temp Pulse Resp B/P (MAP) Pulse Ox O2 Delivery O2 Flow Rate FiO2 05/30/20 21:00 Room Air 05/30/20 21:00 166/83 05/30/20 20:00 99.1 87 16 166/83 (110) 92 05/30/20 18:15 180/80 05/30/20 16:00 98.1 78 20 168/95 (119) 96 05/30/20 12:58 83 20 153/97 96 05/30/20 12:28 83 20 153/97 96 05/30/20 12:00 99.0 83 20 153/97 (115) 96 05/30/20 09:00 Room Air 05/30/20 08:00 99.0 78 20 146/76 (99) 96 05/30/20 05:44 165/84 05/30/20 04:00 100.0 78 20 165/84 (111) 96 05/30/20 00:00 100.0 86 20 142/72 (95) 95 ROS: unchanged from my evaluation of 05/24/20 RHYTHM: NSR, SB, PACs LUNGS: lungs clear bilaterally CARDIAC: normal rate, regular rhythm, normal S1 and S2, gallop/S4 ABDOMEN: non tender, soft, no organomegaly, no mass EXTREMITIES: No edema, other - skin wound per nursing documentation Laboratory Tests Test 05/30/20 15:15 Urine Color Chasity Urine Appearance Cloudy Urine pH 9 (4.5-8.0) Urine Specific [place] 1.015 (1.005-1.035) Urine Protein 4+ (NEGATIVE) H Urine Glucose (UA) Negative (NEGATIVE) Urine Ketones Negative (NEGATIVE) Urine Blood 1+ (NEGATIVE) H Urine Nitrite Negative (NEGATIVE) Urine Bilirubin Negative (NEGATIVE) Urine Ictotest Negative (NEGATIVE) Urine Urobilinogen Normal MG/DL (0.0-1.0) Urine Leukocyte Esterase 3+ (NEGATIVE) H Urine RBC 2-4 /HPF (0 - 2) H Urine WBC 20-30 /HPF (0 - 2) H Urine Squamous Epithelial Cells Many /LPF (NONE/OCC) H Urine Bacteria Many /HPF (NONE) H Microbiology Date/Time Source Procedure Growth Status 05/30/20 14:35 Nasopharynx SARS-CoV-2 RdRp Gene Assay - Final Complete 05/28/20 11:00 Blood Blood Culture - Preliminary Staphylococcus Aureus Resulted 05/28/20 11:00 Blood Blood Culture - Preliminary Staphylococcus Aureus Resulted Assessment/Plan Assessment/Plan Fevers - probable line infection, with increased endocarditis risk present. Acute on chronic Diastolic CHF Hypertensive urgency - resolved ESRD - with missed dialysis session Anginal episode precipitated by above HHD Sinus node disease with hx of tachy-alysa syndrome; patient has refused pacemaker Chronic cocaine abuse Buttocks wound Agree with consideration for line replacement Antimicrobials per ID HD/UF Titrate antiHTN and anti-failure regimen Roller Stitcher regarding cocaine use Skin care Limits set on pain therapies 2D Echo to evaluate risk of endocarditis. Nam Barnett MD May 30, 2020 23:22
[2020-05-31] MEDS: HydrALAZINE 25mg tab ORAL PRN (01:50)
[2020-05-31] MEDS: HydrOXYzine tab 25mg tab ORAL SCH ×3 (03:40→20:11)
[2020-05-31] MEDS: HYDROcodone/Acetamin 10/325 tab ORAL PRN (03:40)
[2020-05-31 04:00] VITALS: BP 167/68
[2020-05-31] MEDS: HydrALAZINE 50mg tab ORAL SCH (05:40)
--- NOTE | 2020-05-31 06:08 | Cardiology Progress Note ---
Subjective DATE OF SERVICE: May 31, 2020 s/p HD/ UF on 05/29/20. Still with fevers, but defervescing slowly. Blood cultures positive for S.aureus (MSSA). Still c/o back pain and anxiety No CP or SOB BP range up slightly from baseline. Objective Last 24 Hour Vital Signs Date Time Temp Pulse Resp B/P (MAP) Pulse Ox O2 Delivery O2 Flow Rate FiO2 05/31/20 05:40 167/68 05/31/20 04:00 98.1 80 18 167/68 (101) 97 05/31/20 01:50 167/83 05/30/20 23:59 79 16 168/70 92 05/30/20 23:59 98.1 79 16 168/70 (102) 92 05/30/20 23:29 87 16 166/83 92 05/30/20 21:00 Room Air 05/30/20 21:00 166/83 05/30/20 20:00 99.1 87 16 166/83 (110) 92 05/30/20 18:15 180/80 05/30/20 16:00 98.1 78 20 168/95 (119) 96 05/30/20 12:58 83 20 153/97 96 05/30/20 12:28 83 20 153/97 96 05/30/20 12:00 99.0 83 20 153/97 (115) 96 05/30/20 09:00 Room Air 05/30/20 08:00 99.0 78 20 146/76 (99) 96 ROS: unchanged from my evaluation of 05/24/20 RHYTHM: NSR, SB, PACs LUNGS: lungs clear bilaterally CARDIAC: normal rate, regular rhythm, normal S1 and S2, gallop/S4 ABDOMEN: non tender, soft, no organomegaly, no mass EXTREMITIES: No edema, other - skin wound per nursing documentation Laboratory Tests Test 05/30/20 15:15 Urine Color Chasity Urine Appearance Cloudy Urine pH 9 (4.5-8.0) Urine Specific [place] 1.015 (1.005-1.035) Urine Protein 4+ (NEGATIVE) H Urine Glucose (UA) Negative (NEGATIVE) Urine Ketones Negative (NEGATIVE) Urine Blood 1+ (NEGATIVE) H Urine Nitrite Negative (NEGATIVE) Urine Bilirubin Negative (NEGATIVE) Urine Ictotest Negative (NEGATIVE) Urine Urobilinogen Normal MG/DL (0.0-1.0) Urine Leukocyte Esterase 3+ (NEGATIVE) H Urine RBC 2-4 /HPF (0 - 2) H Urine WBC 20-30 /HPF (0 - 2) H Urine Squamous Epithelial Cells Many /LPF (NONE/OCC) H Urine Bacteria Many /HPF (NONE) H Microbiology Date/Time Source Procedure Growth Status 05/30/20 15:15 Urine,Clean Catch Urine Culture - Preliminary Gram Negative Timmy Resulted 05/30/20 14:35 Nasopharynx SARS-CoV-2 RdRp Gene Assay - Final Complete 05/28/20 11:00 Blood Blood Culture - Final Staphylococcus Aureus Complete 05/28/20 11:00 Blood Blood Culture - Final Staphylococcus Aureus Complete Assessment/Plan Assessment/Plan Fevers - probable line infection, with increased endocarditis risk present. Acute on chronic Diastolic CHF Hypertensive urgency - resolved; BP range still elevated at times ESRD - with missed dialysis session Anginal episode precipitated by above HHD Sinus node disease with hx of tachy-alysa syndrome; patient has refused pacemaker Chronic cocaine abuse Buttocks wound Agree with consideration for line replacement Antimicrobials per ID HD/UF Titrate antiHTN and anti-failure regimen further Cloth Desizing Range Tender regarding cocaine use Skin care Limits set on pain therapies 2D Echo to evaluate risk of endocarditis. Nam Barnett MD May 31, 2020 06:08
[2020-05-31 06:34] LABS: HEMATOCRIT 28.5 % (37.0-47.0); MEAN CORPUSCULAR VOLUME 91 FL (80-99); PLATELET COUNT 147 K/UL (150-450); RED BLOOD COUNT 3.15 M/UL (4.20-5.40); RED CELL DISTRIBUTION WIDTH 16.2 % (11.6-14.8); WHITE BLOOD COUNT 3.3 K/UL (4.8-10.8)
[2020-05-31 07:13] LABS: ALANINE AMINOTRANSFERASE < 6 U/L (12-78); ALBUMIN/GLOBULIN RATIO 0.6 (1.0-2.7); ALKALINE PHOSPHATASE 69 U/L (46-116); ASPARTATE AMINO TRANSFERASE 28 U/L (15-37); BILIRUBIN,TOTAL 0.4 MG/DL (0.2-1.0); BLOOD UREA NITROGEN 24 mg/dL (7-18); CALCIUM 8.1 MG/DL (8.5-10.1); CARBON DIOXIDE 34 MMOL/L (21-32); CHLORIDE 96 MMOL/L (98-107); CREATININE 5.2 MG/DL (0.55-1.30); PHOSPHORUS 2.5 MG/DL (2.5-4.9); POTASSIUM 3.8 MMOL/L (3.5-5.1); SODIUM 132 MMOL/L (136-145)
[2020-05-31] MEDS: HYDROmorphone 1mg/ml Carpuject IVP PRN ×2 (07:31→12:38)
[2020-05-31 08:00] VITALS: BP 161/72
[2020-05-31] MEDS: LORazepam 1mg tab ORAL PRN (08:42)
[2020-05-31] MEDS: Lidocaine 1% Plain 30 ml INJ SCH (09:00)
[2020-05-31] MEDS: Heparin 5000 units/ml inj SUBQ SCH ×2 (09:00→20:14)
[2020-05-31] MEDS: Docusate 100mg cap ORAL SCH ×3 (09:00→17:29)
[2020-05-31] MEDS: Patient's Own Med - Ritonavir 100mg ORAL SCH ×2 (09:07→17:29)
[2020-05-31] MEDS: ceFAZolin sod 1 GM in D5W 55 ML IVPB SCH (09:13)
--- NOTE | 2020-05-31 09:19 | General Progress Note ---
Subjective ROS Limited/Unobtainable: No Constitutional: Reports: malaise, weakness HEENT: Reports: no symptoms Cardiovascular: Reports: no symptoms Respiratory: Reports: no symptoms Gastrointestinal/Abdominal: Reports: no symptoms Genitourinary: Reports: no symptoms Neurologic/Psychiatric: Reports: no symptoms Endocrine: Reports: no symptoms Hematologic/Lymphatic: Reports: no symptoms Allergies: Coded Allergies: ASPIRIN (Unverified Allergy, Unknown, 01/16/20) IODINE (Verified Allergy, Unknown, 01/07/20) Uncoded Allergies: CONTRAST DYE (Allergy, Unknown, 01/07/20) NSAID (Allergy, Unknown, 04/24/20) All Systems: reviewed and negative except above Subjective fevers better. c/o generalized pain and anxiety. no chest pain or sob. no nausea or vomiting. Objective Last 24 Hour Vital Signs Date Time Temp Pulse Resp B/P (MAP) Pulse Ox O2 Delivery O2 Flow Rate FiO2 05/31/20 09:12 70 20 161/72 92 05/31/20 09:08 70 161/72 05/31/20 08:42 70 20 161/72 92 05/31/20 05:40 167/68 05/31/20 04:00 98.1 80 18 167/68 (101) 97 05/31/20 01:50 167/83 05/30/20 23:59 79 16 168/70 92 05/30/20 23:59 98.1 79 16 168/70 (102) 92 05/30/20 23:29 87 16 166/83 92 05/30/20 21:00 Room Air 05/30/20 21:00 166/83 05/30/20 20:00 99.1 87 16 166/83 (110) 92 05/30/20 18:15 180/80 05/30/20 16:00 98.1 78 20 168/95 (119) 96 05/30/20 12:58 83 20 153/97 96 05/30/20 12:28 83 20 153/97 96 05/30/20 12:00 99.0 83 20 153/97 (115) 96 Intake and Output 05/30/20 05/31/20 19:00 07:00 Intake Total 590 ml 400 ml Output Total 2000 ml Balance -1410 ml 400 ml Intake Oral 480 ml 400 ml IV Total 110 ml Hemodialysis UF 2000 ml # Voids 1 # Bowel Movements 2 Laboratory Tests 05/30/20 15:15: Urine Color Chasity, Urine Appearance Cloudy, Urine pH 9, Urine Specific [place] 1.015, Urine Protein 4+H, Urine Glucose (UA) Negative, Urine Ketones Negative, Urine Blood 1+H, Urine Nitrite Negative, Urine Bilirubin Negative, Urine Ictotest Negative, Urine Urobilinogen Normal, Urine Leukocyte Esterase 3+H, Urine RBC 2-4H, Urine WBC 20-30H, Urine Squamous Epithelial Cells ManyH, Urine Bacteria ManyH 05/31/20 05:25: White Blood Count 3.3L, Red Blood Count 3.15L, Hemoglobin 9.0L, Hematocrit 28.5L , Mean Corpuscular Volume 91, Mean Corpuscular Hemoglobin 28.6, Mean Corpuscular Hemoglobin Concent 31.6L, Red Cell Distribution Width 16.2H, Platelet Count 147L , Mean Platelet Volume 6.7, Neutrophils (%) (Auto) , Lymphocytes (%) (Auto) , Monocytes (%) (Auto) , Eosinophils (%) (Auto) , Basophils (%) (Auto) , Neutrophils % (Manual) [Pending], Lymphocytes % (Manual) [Pending], Platelet Estimate [Pending], Platelet Morphology [Pending], Sodium Level 132L, Potassium Level 3.8, Chloride Level 96L, Carbon Dioxide Level 34H, Blood Urea Nitrogen 24H , Creatinine 5.2H, Estimat Glomerular Filtration Rate 9.9, Glucose Level 117H, Calcium Level 8.1L, Phosphorus Level 2.5, Magnesium Level 2.4, Total Bilirubin 0.4, Aspartate Amino Transf (AST/SGOT) 28, Alanine Aminotransferase (ALT/SGPT) < 6L, Alkaline Phosphatase 69, C-Reactive Protein, Quantitative 6.5H, Pro-B-Type Natriuretic Peptide > 58327O, Total Protein 8.1, Albumin 3.0L, Globulin 5.1, Albumin/Globulin Ratio 0.6L Height (Feet): 5 Height (Inches): 5.00 Weight (Pounds): 160 Objective General Appearance: WD/WN, alert, mild distress, agitated EENT: normal ENT inspection Neck: non-tender, normal alignment, supple Cardiovascular: normal peripheral pulses, normal rate, regular rhythm Respiratory/Chest: chest wall non-tender, lungs clear, normal breath sounds, no respiratory distress Abdomen: normal bowel sounds, non tender, soft, no organomegaly Edema: no edema noted Arm (L), no edema noted Arm (R) Neurologic: pet ambassador II-XII grossly normal, alert, responsive Skin: other - ?abrasion between buttocks Assessment/Plan Problem List: (1) Hypertensive urgency ICD Codes: I16.0 - Hypertensive urgency SNOMED: 858776557 (2) HIV disease ICD Codes: B20 - Human immunodeficiency virus [HIV] disease SNOMED: 34077974 (3) CHF (congestive heart failure), NYHA class II ICD Codes: I50.9 - Heart failure, unspecified SNOMED: 379691962, 079388567 (4) ESRD (end stage renal disease) on dialysis ICD Codes: N18.6 - End stage renal disease; Z99.2 - Dependence on renal d ialysis SNOMED: 113822065 (5) Substance abuse ICD Codes: F19.10 - Other psychoactive substance abuse, uncomplicated SNOMED: 67079762 Status: stable, progressing Assessment/Plan: iv abx follow up cultures HD per renal ID Consult appreciated wound care tylenol for fever dvt/stress ulcer prophylaxis pain rx and anxiolytics as needed dc perm cath after HD. will discuss timing with renal consider vascular eval for AVF Michael Peralta MD May 31, 2020 09:19
--- NOTE | 2020-05-31 10:50 | Nephrology Progress Note ---
Assessment/Plan Problem List: (1) ESRD (end stage renal disease) on dialysis (2) HIV disease (3) HCV antibody positive (4) Hypertensive urgency (5) Substance abuse Assessment Patient admitted with hypertensive urgency (1) ESRD (end stage renal disease) on dialysis (2) HIV disease (3) Cocaine abuse (4) Noncompliance (5) Anemia of chronic kidney disease Plan May 31: Status quo. Dialyzed yesterday. I are will remove the permacath today. Tip will be sent for culture. Surveillance blood culture ordered for today again. CRP lower today. Continue to monitor electrolytes and renal parameters. May 30: Low-grade fever persists. Due for dialysis today. As per ID recommendation will discontinue the dialysis catheter which may be the source of fever and bacteremia. Discussed with RN. Orders given. Will check labs tomorrow. May 29: Patient remains febrile. Nontoxic. Dialyzed yesterday. Next dialysis tomorrow. Preliminary blood cultures positive for gram-positive's. Most likely source dialysis catheter. CRP jumped up to 14. Continue per ID advice. Keep the blood pressure and blood sugar in check. Will obtain repeated blood culture tomorrow during dialysis. Patient on vancomycin. May 28: Patient febrile. Cultures taken during dialysis. Vancomycin 1 dose given. Will check labs tomorrow. A temporary catheter may need to be discontinued and replaced if blood cultures positive. Continue per consultants. May 27: Patient in mild distress due to itching and generalized pain. Was dialyzed yesterday. Will dialyze again tomorrow. Will start on Atarax [id number] for itching. Labs reviewed, medications reviewed and adjusted. B12 subcu and to p.o. Synthroid ordered Patient was dialyzed 05/24, will dialyze today Will adjust blood pressure medication Per orders 2. Dr. Townsend to call urologist the catheter again yet to talk to the person was put in the disc note thank you very much by Subjective ROS Limited/Unobtainable: No Constitutional: Reports: malaise Objective Objective Last 24 Hour Vital Signs Date Time Temp Pulse Resp B/P (MAP) Pulse Ox O2 Delivery O2 Flow Rate FiO2 05/31/20 09:12 70 20 161/72 92 05/31/20 09:08 70 161/72 05/31/20 08:42 70 20 161/72 92 10/28/20 08:00 97.9 70 20 161/72 (101) 92 05/31/20 05:40 167/68 05/31/20 04:00 98.1 80 18 167/68 (101) 97 05/31/20 01:50 167/83 05/30/20 23:59 79 16 168/70 92 05/30/20 23:59 98.1 79 16 168/70 (102) 92 05/30/20 23:29 87 16 166/83 92 05/30/20 21:00 Room Air 05/30/20 21:00 166/83 05/30/20 20:00 99.1 87 16 166/83 (110) 92 05/30/20 18:15 180/80 05/30/20 16:00 98.1 78 20 168/95 (119) 96 05/30/20 12:58 83 20 153/97 96 05/30/20 12:28 83 20 153/97 96 05/30/20 12:00 99.0 83 20 153/97 (115) 96 Intake and Output 05/30/20 05/31/20 19:00 07:00 Intake Total 590 ml 400 ml Output Total 2000 ml Balance -1410 ml 400 ml Intake Oral 480 ml 400 ml IV Total 110 ml Hemodialysis UF 2000 ml # Voids 1 # Bowel Movements 2 Current Medications Medications (Trade) Dose Ordered Sig/Rochelle Route PRN Reason Start Time Stop Time Status Last Admin Dose Admin Acetaminophen (Tylenol) 650 mg Q6H PRN ORAL Temp >100.5 05/27/20 18:00 06/26/20 17:59 05/29/20 22:27 Acetaminophen/ Hydrocodone Bitart ([place] 10/325) 1 tab Q4H PRN ORAL Moderate Pain (4-6) 05/30/20 12:00 06/06/20 11:59 05/31/20 03:40 Amlodipine Besylate (Norvasc) 10 mg DAILY ORAL 05/24/20 16:00 06/23/20 15:59 05/31/20 09:08 Cefazolin Sodium 1 gm/Dextrose 55 ml @ 110 mls/hr DAILY IVPB 05/30/20 13:00 06/06/20 12:59 05/31/20 09:13 Diphenhydramine HCl (Benadryl) 25 mg Q6H PRN ORAL Itching 05/25/20 08:30 06/24/20 08:29 05/30/20 08:24 Docusate Sodium (Colace) 100 mg TID ORAL 05/25/20 13:00 06/23/20 17:59 05/30/20 12:19 Epoetin Jose (Epoetin Jose(ESRD on dialysis)) 10,000 unit FRI-FRI-FRI SUBQ 05/26/20 21:00 08/24/20 20:59 05/29/20 22:25 Heparin Sodium (Porcine) (Heparin 5000 units/ml) 5,000 units EVERY 12 HOURS SUBQ 05/24/20 21:00 07/08/20 20:59 Hydralazine HCl (Apresoline) 25 mg Q6H PRN ORAL For High Blood Pressure 05/24/20 16:00 08/22/20 15:59 05/31/20 01:50 Hydralazine HCl (Apresoline) 75 mg EVERY 8 HOURS ORAL 05/31/20 14:00 08/29/20 13:59 Hydromorphone HCl (Dilaudid) 0.5 mg Q4H PRN IVP Moderate Pain (Pain Scale 4-6) 05/28/20 08:00 06/04/20 07:59 05/31/20 07:31 Hydromorphone HCl (Dilaudid) 2 mg DAILYPRN PRN IVP Severe Pain (Pain Scale 7-10) 05/27/20 10:45 06/03/20 10:44 05/30/20 23:54 Hydroxyzine HCl (Atarax) 25 mg Q8H ORAL 05/27/20 20:30 06/26/20 20:29 05/31/20 03:40 Levothyroxine Sodium (Synthroid) 75 mcg Q24H ORAL 05/27/20 06:30 06/26/20 06:29 05/31/20 05:41 Lidocaine HCl (Xylocaine 1% 30ml) 30 ml ONCE INJ 05/31/20 09:00 06/02/20 18:00 Lorazepam (Ativan) 1 mg Q6H PRN ORAL For Anxiety 05/30/20 10:00 06/06/20 09:59 05/31/20 08:42 Nitroglycerin (Ntg) 0.4 mg Q5M PRN SL Prn Chest Pain 05/24/20 10:45 06/23/20 10:44 Ondansetron HCl (Zofran) 4 mg Q6H PRN IVP Nausea & Vomiting 05/24/20 16:00 06/23/20 15:59 Pantoprazole (Protonix) 40 mg BID ORAL 05/29/20 18:00 06/25/20 08:59 05/31/20 08:41 Patient Own Medication (Patient's Own Med) 1 ea BID ORAL 05/30/20 18:00 06/29/20 17:59 05/31/20 09:07 Patient Own Medication (Patient's Own Med) 1 ea BID ORAL 05/30/20 18:00 06/29/20 17:59 05/31/20 09:07 Patient Own Medication (Patient's Own Med) 1 ea DAILY ORAL 05/31/20 09:00 06/30/20 08:59 05/30/20 17:41 Sodium Chloride 1,000 ml @ 500 mls/hr Q2H PRN IVLG sbp<90 during hd 05/25/20 17:30 06/24/20 17:29 Laboratory Tests 05/30/20 15:15: Urine Color Chasity, Urine Appearance Cloudy, Urine pH 9, Urine Specific [place] 1.015, Urine Protein 4+H, Urine Glucose (UA) Negative, Urine Ketones Negative, Urine Blood 1+H, Urine Nitrite Negative, Urine Bilirubin Negative, Urine Ictotest Negative, Urine Urobilinogen Normal, Urine Leukocyte Esterase 3+H, Urine RBC 2-4H, Urine WBC 20-30H, Urine Squamous Epithelial Cells ManyH, Urine Bacteria ManyH 05/31/20 05:25: White Blood Count 3.3L, Red Blood Count 3.15L, Hemoglobin 9.0L, Hematocrit 28.5L , Mean Corpuscular Volume 91, Mean Corpuscular Hemoglobin 28.6, Mean Corpuscular Hemoglobin Concent 31.6L, Red Cell Distribution Width 16.2H, Platelet Count 147L , Mean Platelet Volume 6.7, Neutrophils (%) (Auto) , Lymphocytes (%) (Auto) , Monocytes (%) (Auto) , Eosinophils (%) (Auto) , Basophils (%) (Auto) , Differential Total Cells Counted 100, Neutrophils % (Manual) 73, Lymphocytes % (Manual) 14L, Monocytes % (Manual) 11H, Eosinophils % (Manual) 2, Basophils % (Manual) 0, Band Neutrophils 0, Platelet Estimate DecreasedL, Platelet Morphology Normal, Hypochromasia 1+, Anisocytosis 1+, Sodium Level 132L, Potassium Level 3.8, Chloride Level 96L, Carbon Dioxide Level 34H, Blood Urea Nitrogen 24H, Creatinine 5.2H, Estimat Glomerular Filtration Rate 9.9, Glucose Level 117H, Calcium Level 8.1L, Phosphorus Level 2.5, Magnesium Level 2.4, Total Bilirubin 0.4, Aspartate Amino Transf (AST/SGOT) 28, Alanine Aminotransferase (ALT/SGPT) < 6L, Alkaline Phosphatase 69, C-Reactive Protein, Quantitative 6.5H, Pro-B-Type Natriuretic Peptide > 44079G, Total Protein 8.1, Albumin 3.0L, Globulin 5.1, Albumin/Globulin Ratio 0.6L Height (Feet): 5 Height (Inches): 5.00 Weight (Pounds): 160 General Appearance: no apparent distress Objective No change Jack Pryor MD May 31, 2020 10:49
--- NOTE | 2020-05-31 11:18 | Infectious Diseases Prog Note ---
Assessment/Plan Assessment/Plan antibiotics : ancef A 1. staph aureus sepsis 2. renal failure on HD 3. HIV 4. hypertension 5. COVID 19 negative x 2 6. gram negative UTI P 1. start cefepime 2. d/c ancef 3. 2 d echo pending 4. will follow up cultures 5. catheter removal planned today Subjective ROS Limited/Unobtainable: Yes Allergies: Coded Allergies: ASPIRIN (Unverified Allergy, Unknown, 01/16/20) IODINE (Verified Allergy, Unknown, 01/07/20) Uncoded Allergies: CONTRAST DYE (Allergy, Unknown, 01/07/20) NSAID (Allergy, Unknown, 04/24/20) Objective Last 24 Hour Vital Signs Date Time Temp Pulse Resp B/P (MAP) Pulse Ox O2 Delivery O2 Flow Rate FiO2 05/31/20 09:12 70 20 161/72 92 05/31/20 09:08 70 161/72 05/31/20 08:42 70 20 161/72 92 05/31/20 08:00 97.9 70 20 161/72 (101) 92 05/31/20 05:40 167/68 05/31/20 04:00 98.1 80 18 167/68 (101) 97 05/31/20 01:50 167/83 05/30/20 23:59 79 16 168/70 92 05/30/20 23:59 98.1 79 16 168/70 (102) 92 05/30/20 23:29 87 16 166/83 92 05/30/20 21:00 Room Air 05/30/20 21:00 166/83 05/30/20 20:00 99.1 87 16 166/83 (110) 92 05/30/20 18:15 180/80 05/30/20 16:00 98.1 78 20 168/95 (119) 96 05/30/20 12:58 83 20 153/97 96 05/30/20 12:28 83 20 153/97 96 05/30/20 12:00 99.0 83 20 153/97 (115) 96 Height (Feet): 5 Height (Inches): 5.00 Weight (Pounds): 160 Respiratory/Chest: lungs clear Cardiovascular: normal rate, regular rhythm, no gallop/murmur Abdomen: soft, non tender Extremities: no edema, other - left subclavian catheter Microbiology Date/Time Source Procedure Growth Status 05/30/20 15:15 Urine,Clean Catch Urine Culture - Preliminary Gram Negative Timmy Resulted 05/30/20 14:35 Nasopharynx SARS-CoV-2 RdRp Gene Assay - Final Complete Laboratory Tests Test 05/30/20 15:15 05/31/20 05:25 Urine Color Chasity Urine Appearance Cloudy Urine pH 9 (4.5-8.0) Urine Specific [place] 1.015 (1.005-1.035) Urine Protein 4+ (NEGATIVE) H Urine Glucose (UA) Negative (NEGATIVE) Urine Ketones Negative (NEGATIVE) Urine Blood 1+ (NEGATIVE) H Urine Nitrite Negative (NEGATIVE) Urine Bilirubin Negative (NEGATIVE) Urine Ictotest Negative (NEGATIVE) Urine Urobilinogen Normal MG/DL (0.0-1.0) Urine Leukocyte Esterase 3+ (NEGATIVE) H Urine RBC 2-4 /HPF (0 - 2) H Urine WBC 20-30 /HPF (0 - 2) H Urine Squamous Epithelial Cells Many /LPF (NONE/OCC) H Urine Bacteria Many /HPF (NONE) H White Blood Count 3.3 K/UL (4.8-10.8) L Red Blood Count 3.15 M/UL (4.20-5.40) L Hemoglobin 9.0 G/DL (12.0-16.0) L Hematocrit 28.5 % (37.0-47.0) L Mean Corpuscular Volume 91 FL (80-99) Mean Corpuscular Hemoglobin 28.6 PG (27.0-31.0) Mean Corpuscular Hemoglobin Concent 31.6 G/DL (32.0-36.0) L Red Cell Distribution Width 16.2 % (11.6-14.8) H Platelet Count 147 K/UL (150-450) L Mean Platelet Volume 6.7 FL (6.5-10.1) Neutrophils (%) (Auto) % (45.0-75.0) Lymphocytes (%) (Auto) % (20.0-45.0) Monocytes (%) (Auto) % (1.0-10.0) Eosinophils (%) (Auto) % (0.0-3.0) Basophils (%) (Auto) % (0.0-2.0) Differential Total Cells Counted 100 Neutrophils % (Manual) 73 % (45-75) Lymphocytes % (Manual) 14 % (20-45) L Monocytes % (Manual) 11 % (1-10) H Eosinophils % (Manual) 2 % (0-3) Basophils % (Manual) 0 % (0-2) Band Neutrophils 0 % (0-8) Platelet Estimate Decreased L Platelet Morphology Normal Hypochromasia 1+ Anisocytosis 1+ Sodium Level 132 MMOL/L (136-145) L Potassium Level 3.8 MMOL/L (3.5-5.1) Chloride Level 96 MMOL/L (98-107) L Carbon Dioxide Level 34 MMOL/L (21-32) H Blood Urea Nitrogen 24 mg/dL (7-18) H Creatinine 5.2 MG/DL (0.55-1.30) H Estimat Glomerular Filtration Rate 9.9 mL/min (>60) Glucose Level 117 MG/DL (74-106) H Calcium Level 8.1 MG/DL (8.5-10.1) L Phosphorus Level 2.5 MG/DL (2.5-4.9) Magnesium Level 2.4 MG/DL (1.8-2.4) Total Bilirubin 0.4 MG/DL (0.2-1.0) Aspartate Amino Transf (AST/SGOT) 28 U/L (15-37) Alanine Aminotransferase (ALT/SGPT) < 6 U/L (12-78) L Alkaline Phosphatase 69 U/L (46-116) C-Reactive Protein, Quantitative 6.5 mg/dL (0.00-0.90) H Pro-B-Type Natriuretic Peptide > 36047 pg/mL (0-125) H Total Protein 8.1 G/DL (6.4-8.2) Albumin 3.0 G/DL (3.4-5.0) L Globulin 5.1 g/dL Albumin/Globulin Ratio 0.6 (1.0-2.7) L Vancomycin Level Trough Pending Current Medications Medications (Trade) Dose Ordered Sig/Rochelle Route PRN Reason Start Time Stop Time Status Last Admin Dose Admin Acetaminophen (Tylenol) 650 mg Q6H PRN ORAL Temp >100.5 05/27/20 18:00 06/26/20 17:59 05/29/20 22:27 Acetaminophen/ Hydrocodone Bitart ([place] 10) 1 tab Q4H PRN ORAL Moderate Pain (4-6) 05/30/20 12:00 06/06/20 11:59 05/31/20 03:40 Amlodipine Besylate (Norvasc) 10 mg DAILY ORAL 05/24/20 16:00 06/23/20 15:59 05/31/20 09:08 Cefazolin Sodium 1 gm/Dextrose 55 ml @ 110 mls/hr DAILY IVPB 05/30/20 13:00 06/06/20 12:59 05/31/20 09:13 Diphenhydramine HCl (Benadryl) 25 mg Q6H PRN ORAL Itching 05/25/20 08:30 06/24/20 08:29 05/30/20 08:24 Docusate Sodium (Colace) 100 mg TID ORAL 05/25/20 13:00 06/23/20 17:59 05/30/20 12:19 Epoetin Jose (Epoetin Jose(ESRD on dialysis)) 10,000 unit SUBQ 05/26/20 21:00 08/24/20 20:59 05/29/20 22:25 Heparin Sodium (Porcine) (Heparin 5000 units/ml) 5,000 units EVERY 12 HOURS SUBQ 05/24/20 21:00 07/08/20 20:59 Hydralazine HCl (Apresoline) 25 mg Q6H PRN ORAL For High Blood Pressure 05/24/20 16:00 08/22/20 15:59 05/31/20 01:50 Hydralazine HCl (Apresoline) 75 mg EVERY 8 HOURS ORAL 05/31/20 14:00 08/29/20 13:59 Hydromorphone HCl (Dilaudid) 0.5 mg Q4H PRN IVP Moderate Pain (Pain Scale 4-6) 05/28/20 08:00 06/04/20 07:59 05/31/20 07:31 Hydromorphone HCl (Dilaudid) 2 mg DAILYPRN PRN IVP Severe Pain (Pain Scale 7-10) 05/27/20 10:45 06/03/20 10:44 05/30/20 23:54 Hydroxyzine HCl (Atarax) 25 mg Q8H ORAL 05/27/20 20:30 06/26/20 20:29 05/31/20 03:40 Levothyroxine Sodium (Synthroid) 75 mcg Q24H ORAL 05/27/20 06:30 06/26/20 06:29 05/31/20 05:41 Lidocaine HCl (Xylocaine 1% 30ml) 30 ml ONCE INJ 05/31/20 09:00 06/02/20 18:00 Lorazepam (Ativan) 1 mg Q6H PRN ORAL For Anxiety 05/30/20 10:00 06/06/20 09:59 05/31/20 08:42 Nitroglycerin (Ntg) 0.4 mg Q5M PRN SL Prn Chest Pain 05/24/20 10:45 06/23/20 10:44 Ondansetron HCl (Zofran) 4 mg Q6H PRN IVP Nausea & Vomiting 05/24/20 16:00 06/23/20 15:59 Pantoprazole (Protonix) 40 mg BID ORAL 05/29/20 18:00 06/25/20 08:59 05/31/20 08:41 Patient Own Medication (Patient's Own Med) 1 ea BID ORAL 05/30/20 18:00 06/29/20 17:59 05/31/20 09:07 Patient Own Medication (Patient's Own Med) 1 ea BID ORAL 05/30/20 18:00 06/29/20 17:59 05/31/20 09:07 Patient Own Medication (Patient's Own Med) 1 ea DAILY ORAL 05/31/20 09:00 06/30/20 08:59 05/30/20 17:41 Sodium Chloride 1,000 ml @ 500 mls/hr Q2H PRN IVLG sbp<90 during hd 05/25/20 17:30 06/24/20 17:29 Elvis Garibay MD May 31, 2020 11:18
[2020-05-31 12:00] VITALS: BP 140/78
[2020-05-31] MEDS: Cefepime HCl 1 GM in D5W 55 ML IVPB SCH (12:38)
[2020-05-31] MEDS ORDERED: Lidocaine 1% 10mg/ml/Epi 0.005mg/ml 10ml INJ SCH (14:45)
[2020-05-31] MEDS ORDERED: Lidocaine 1% 10mg/ml/Epi 0.005mg/ml 30ml vial INJ SCH (14:45)
[2020-05-31 16:00] VITALS: BP 153/73
[2020-05-31] MEDS ORDERED: HYDROmorphone 1mg/ml Carpuject IVP SCH (16:00)
[2020-05-31] MEDS: HydrALAZINE 25mg tab ORAL SCH ×2 (16:13→22:58)
--- NOTE | 2020-05-31 16:23 | Pre-Procedure Note/Attestation ---
Pre-Procedure Note/Attestation Complete Prior to Procedure Planned Procedure: left Procedure Narrative: Permacath removal Indications for Procedure Pre-Operative Diagnosis: infection Attestation I attest that I discussed the nature of the procedure; its benefits; risks and complications; and alternatives (and the risks and benefits of such alternatives), prior to the procedure, with the patient (or the patient's legal technical sales representative). I attest that, if there was a reasonable possibility of needing a blood transfu myrtle, the patient (or the patient's legal technical sales representative) was given the [facility] [place] [facility] standardized written summary, pursuant to the Jose Burley Blood Safety Act ([place] Health and Safety Code # 1645, as amended). I attest that I re-evaluated the patient just prior to the surgery and that there has been no change in the patient's H&P, except as documented below: Haile Luciano MD May 31, 2020 16:23
--- NOTE | 2020-05-31 16:24 | Brief Operative Note ---
Immediate Post Operative Note Operative Note Pre-op Diagnosis: infection Procedure: permacath removal Post-op Diagnosis: same as pre-op Surgeon: Anayeli Oden Anesthesia: local Specimen: yes - catheter tip sent for culture Complications: none Fluids: none Implant(s) used?: No Haile Oden MD May 31, 2020 16:23
--- NOTE | 2020-05-31 16:46 | Diagnostic Imaging Report ---
Indications: Suspected infected permacath Technique: Procedure performed at bedside Sterile prepping and draping left chest. Local anesthesia with 1% lidocaine. Chest dermatotomy extended. Using blunt dissection, the cuff of the catheter was freed from the surrounding soft tissues, and the catheter was removed. The tip was cut off and sent for culture. Follow-up chest radiograph confirms removal of the catheter. The patient tolerated the procedure well, without immediate complication. Comparison: None. Findings: Completion chest radiograph confirms complete removal of the catheter Impression: Successful removal of tunneled dialysis catheter, as noted.
[2020-05-31] MEDS ORDERED: Lidocaine 2% Visc 15ml soln ORAL PRN (18:15)
[2020-05-31 20:00] VITALS: BP 156/84
[2020-05-31] MEDS: Epoetin Alfa-EPBX(ESRD on dialysis)10,000 unit/ml vial SUBQ SCH (20:11)
[2020-06-01] VITALS (8 sets, daily range): BP systolic 137–156; BP diastolic 60–96
[2020-06-01] MEDS: HYDROmorphone 1mg/ml Carpuject IVP PRN ×4 (01:15→21:21)
[2020-06-01] MEDS: HydrOXYzine tab 25mg tab ORAL SCH ×3 (04:17→21:22)
[2020-06-01] MEDS: HYDROcodone/Acetamin 10/325 tab ORAL PRN (04:17)
[2020-06-01] MEDS: LORazepam 1mg tab ORAL PRN ×3 (04:24→21:21)
[2020-06-01] MEDS: HydrALAZINE 25mg tab ORAL SCH ×3 (05:48→21:22)
--- NOTE | 2020-06-01 07:27 | General Progress Note ---
Subjective ROS Limited/Unobtainable: No Constitutional: Reports: malaise, weakness HEENT: Reports: no symptoms Cardiovascular: Reports: no symptoms Respiratory: Reports: no symptoms Genitourinary: Reports: no symptoms Neurologic/Psychiatric: Reports: anxiety, depressed, emotional problems Endocrine: Reports: no symptoms Hematologic/Lymphatic: Reports: no symptoms Allergies: Coded Allergies: ASPIRIN (Unverified Allergy, Unknown, 01/16/20) IODINE (Verified Allergy, Unknown, 01/07/20) Uncoded Allergies: CONTRAST DYE (Allergy, Unknown, 01/07/20) NSAID (Allergy, Unknown, 04/24/20) All Systems: reviewed and negative except above Subjective resting. no events. no fever or chills.pain better controlled. intermittent anxiety. perm cath removed yesterday. Objective Last 24 Hour Vital Signs Date Time Temp Pulse Resp B/P (MAP) Pulse Ox O2 Delivery O2 Flow Rate FiO2 06/01/20 05:48 148/76 06/01/20 04:54 72 20 148/76 95 06/01/20 04:47 98.8 06/01/20 04:24 76 20 156/73 94 06/01/20 04:00 98.8 85 20 154/82 (106) 94 06/01/20 00:00 98.8 76 20 156/73 (100) 94 05/31/20 22:58 156/84 05/31/20 21:00 Room Air 05/31/20 20:00 98.5 74 18 156/84 (108) 94 05/31/20 16:13 153/73 05/31/20 16:00 98.6 85 20 153/73 (99) 93 05/31/20 12:00 97.7 73 19 140/78 (98) 91 05/31/20 09:12 70 20 161/72 92 05/31/20 09:08 70 161/72 05/31/20 09:00 Room Air 05/31/20 08:42 70 20 161/72 92 05/31/20 08:00 97.9 70 20 161/72 (101) 92 Intake and Output 05/31/20 06/01/20 18:59 06:59 Intake Total 480 ml 480 ml Balance 480 ml 480 ml Intake Oral 480 ml 480 ml # Bowel Movements 1 Height (Feet): 5 Height (Inches): 5.00 Weight (Pounds): 160 Objective General Appearance: WD/WN, alert, mild distress, agitated EENT: normal ENT inspection Neck: non-tender, normal alignment, supple Cardiovascular: normal peripheral pulses, normal rate, regular rhythm Respiratory/Chest: chest wall non-tender, lungs clear, normal breath sounds, no respiratory distress Abdomen: normal bowel sounds, non tender, soft, no organomegaly Edema: no edema noted Arm (L), no edema noted Arm (R) Neurologic: religious assistant II-XII grossly normal, alert, responsive Skin: other - ?abrasion between buttocks Assessment/Plan Problem List: (1) Hypertensive urgency ICD Codes: I16.0 - Hypertensive urgency SNOMED: 888066125 (2) HIV disease ICD Codes: B20 - Human immunodeficiency virus [HIV] disease SNOMED: 68649172 (3) CHF (congestive heart failure), NYHA class II ICD Codes: I50.9 - Heart failure, unspecified SNOMED: 036621471, 683209394 (4) ESRD (end stage renal disease) on dialysis ICD Codes: N18.6 - End stage renal disease; Z99.2 - Dependence on renal dialysis SNOMED: 495442416 (5) Substance abuse ICD Codes: F19.10 - Other psychoactive substance abuse, uncomplicated SNOMED: 98911491 Status: stable, progressing Assessment/Plan: iv abx per ID HD per renal wound care tylenol for fever dvt/stress ulcer prophylaxis pain rx and anxiolytics as needed New HD catheter when cleared by ID consider vascular eval for AVF cont pain rx and anxiolytics Michael Peralta MD Jun 01, 2020 07:27
[2020-06-01 08:56] LABS: HEMATOCRIT 26.3 % (37.0-47.0); HEMOGLOBIN 8.5 G/DL (12.0-16.0); MEAN CORPUSCULAR VOLUME 92 FL (80-99); PLATELET COUNT 140 K/UL (150-450); RED BLOOD COUNT 2.87 M/UL (4.20-5.40); RED CELL DISTRIBUTION WIDTH 16.6 % (11.6-14.8); WHITE BLOOD COUNT 2.6 K/UL (4.8-10.8)
[2020-06-01] MEDS: Lidocaine 1% Plain 30 ml INJ SCH (09:00)
[2020-06-01 09:36] LABS: ALANINE AMINOTRANSFERASE < 6 U/L (12-78); ALBUMIN 2.8 G/DL (3.4-5.0); ALBUMIN/GLOBULIN RATIO 0.5 (1.0-2.7); ALKALINE PHOSPHATASE 70 U/L (46-116); ANION GAP 6 mmol/L (5-15); ASPARTATE AMINO TRANSFERASE 27 U/L (15-37); BILIRUBIN,TOTAL 0.4 MG/DL (0.2-1.0); BLOOD UREA NITROGEN 30 mg/dL (7-18); CALCIUM 7.9 MG/DL (8.5-10.1); CARBON DIOXIDE 29 MMOL/L (21-32); CHLORIDE 95 MMOL/L (98-107); CREATININE 6.8 MG/DL (0.55-1.30); PHOSPHORUS 2.3 MG/DL (2.5-4.9); POTASSIUM 3.6 MMOL/L (3.5-5.1); SODIUM 130 MMOL/L (136-145)
[2020-06-01] MEDS: Patient's Own Med - Tivicay 50mg ORAL SCH (09:40)
[2020-06-01] MEDS: Docusate 100mg cap ORAL SCH ×3 (09:40→18:26)
[2020-06-01] MEDS: Patient's Own Med - Ritonavir 100mg ORAL SCH ×2 (09:42→18:26)
--- NOTE | 2020-06-01 10:12 | Nephrology Progress Note ---
Assessment/Plan Problem List: (1) ESRD (end stage renal disease) on dialysis (2) HIV disease (3) HCV antibody positive (4) Hypertensive urgency (5) Substance abuse Assessment Patient admitted with hypertensive urgency (1) ESRD (end stage renal disease) on dialysis (2) HIV disease (3) Cocaine abuse (4) Noncompliance (5) Anemia of chronic kidney disease Plan June 01: Dialysis catheter removed May 31. Labs reviewed. Discussed with RN. Will arrange for placement of a nontunneled dialysis catheter tomorrow. We will continue to order surveillance blood cultures. When blood cultures are negative will attempt to put a tunneled catheter prior to discharge. Continue per orders. May 31: Status quo. Dialyzed yesterday. I are will remove the permacath today. Tip will be sent for culture. Surveillance blood culture ordered for today again. CRP lower today. Continue to monitor electrolytes and renal parameters. May 30: Low-grade fever persists. Due for dialysis today. As per ID recommendation will discontinue the dialysis catheter which may be the source of fever and bacteremia. Discussed with RN. Orders given. Will check labs tomorrow. May 29: Patient remains febrile. Nontoxic. Dialyzed yesterday. Next dialysis tomorrow. Preliminary blood cultures positive for gram-positive's. Most likely source dialysis catheter. CRP jumped up to 14. Continue per ID advice. Keep the blood pressure and blood sugar in check. Will obtain repeated blood culture tomorrow during dialysis. Patient on vancomycin. May 28: Patient febrile. Cultures taken during dialysis. Vancomycin 1 dose given. Will check labs tomorrow. A temporary catheter may need to be discontinued and replaced if blood cultures positive. Continue per consultants. May 27: Patient in mild distress due to itching and generalized pain. Was dialyzed yesterday. Will dialyze again tomorrow. Will start on Atarax [id number] for itching. Labs reviewed, medications reviewed and adjusted. B12 subcu and to p.o. Synthroid ordered Patient was dialyzed 05/24, will dialyze today Will adjust blood pressure medication Per orders 2. Dr. Townsend to call urologist the catheter again yet to talk to the person was put in the disc note thank you very much by Subjective ROS Limited/Unobtainable: No Constitutional: Reports: malaise Objective Objective Last 24 Hour Vital Signs Date Time Temp Pulse Resp B/P (MAP) Pulse Ox O2 Delivery O2 Flow Rate FiO2 06/01/20 09:40 79 146/77 06/01/20 08:00 98.0 79 20 146/77 (100) 97 06/01/20 05:48 148/76 06/01/20 04:54 72 20 148/76 95 06/01/20 04:47 98.8 06/01/20 04:24 76 20 156/73 94 06/01/20 04:00 98.8 85 20 154/82 (106) 94 06/01/20 00:00 98.8 76 20 156/73 (100) 94 05/31/20 22:58 156/84 05/31/20 21:00 Room Air 05/31/20 20:00 98.5 74 18 156/84 (108) 94 05/31/20 16:13 153/73 05/31/20 16:00 98.6 85 20 153/73 (99) 93 05/31/20 12:00 97.7 73 19 140/78 (98) 91 Intake and Output 05/31/20 06/01/20 19:00 07:00 Intake Total 480 ml 480 ml Balance 480 ml 480 ml Intake Oral 480 ml 480 ml # Bowel Movements 1 Current Medications Medications (Trade) Dose Ordered Sig/Rochelle Route PRN Reason Start Time Stop Time Status Last Admin Dose Admin Acetaminophen (Tylenol) 650 mg Q6H PRN ORAL Temp >100.5 05/27/20 18:00 06/26/20 17:59 05/29/20 22:27 Acetaminophen/ Hydrocodone Bitart ([place] 10/325) 1 tab Q4H PRN ORAL Moderate Pain (4-6) 05/30/20 12:00 06/06/20 11:59 06/01/20 04:17 Amlodipine Besylate (Norvasc) 10 mg DAILY ORAL 05/24/20 16:00 06/23/20 15:59 06/01/20 09:40 Cefepime HCl 1 gm/ Dextrose 55 ml @ 110 mls/hr Q24H IVPB 05/31/20 13:00 06/07/20 12:59 05/31/20 12:38 Diphenhydramine HCl (Benadryl) 25 mg Q6H PRN ORAL Itching 05/25/20 08:30 06/24/20 08:29 05/30/20 08:24 Docusate Sodium (Colace) 100 mg TID ORAL 05/25/20 13:00 06/23/20 17:59 06/01/20 09:40 Epoetin Jose (Epoetin Jose(ESRD on dialysis)) 10,000 unit FRI-FRI-FRI SUBQ 05/26/20 21:00 08/24/20 20:59 05/31/20 20:11 Heparin Sodium (Porcine) (Heparin 5000 units/ml) 5,000 units EVERY 12 HOURS SUBQ 05/24/20 21:00 07/08/20 20:59 05/31/20 20:14 Hydralazine HCl (Apresoline) 25 mg Q6H PRN ORAL For High Blood Pressure 05/24/20 16:00 08/22/20 15:59 05/31/20 01:50 Hydralazine HCl (Apresoline) 75 mg EVERY 8 HOURS ORAL 05/31/20 14:00 08/29/20 13:59 06/01/20 05:48 Hydromorphone HCl (Dilaudid) 0.5 mg Q4H PRN IVP Moderate Pain (Pain Scale 4-6) 05/28/20 08:00 06/04/20 07:59 06/01/20 05:44 Hydromorphone HCl (Dilaudid) 2 mg DAILYPRN PRN IVP Severe Pain (Pain Scale 7-10) 05/27/20 10:45 06/03/20 10:44 05/31/20 20:12 Hydroxyzine HCl (Atarax) 25 mg Q8H ORAL 05/27/20 20:30 06/26/20 20:29 06/01/20 04:17 Levothyroxine Sodium (Synthroid) 75 mcg Q24H ORAL 05/27/20 06:30 06/26/20 06:29 06/01/20 05:48 Lidocaine HCl (Xylocaine Viscous) 15 ml Q4H PRN ORAL For Pain 05/31/20 18:15 08/29/20 18:14 Lidocaine HCl (Xylocaine 1% 30ml) 30 ml ONCE INJ 05/31/20 09:00 06/02/20 18:00 Lorazepam (Ativan) 1 mg Q6H PRN ORAL For Anxiety 05/30/20 10:00 06/06/20 09:59 06/01/20 04:24 Nitroglycerin (Ntg) 0.4 mg Q5M PRN SL Prn Chest Pain 05/24/20 10:45 06/23/20 10:44 Ondansetron HCl (Zofran) 4 mg Q6H PRN IVP Nausea & Vomiting 05/24/20 16:00 06/23/20 15:59 Pantoprazole (Protonix) 40 mg BID ORAL 05/29/20 18:00 06/25/20 08:59 06/01/20 09:40 Patient Own Medication (Patient's Own Med) 1 ea BID ORAL 05/30/20 18:00 06/29/20 17:59 06/01/20 09:41 Patient Own Medication (Patient's Own Med) 1 ea BID ORAL 05/30/20 18:00 06/29/20 17:59 06/01/20 09:42 Patient Own Medication (Patient's Own Med) 1 ea DAILY ORAL 05/31/20 09:00 06/30/20 08:59 06/01/20 09:40 Sodium Chloride 1,000 ml @ 500 mls/hr Q2H PRN IVLG sbp<90 during hd 05/25/20 17:30 06/24/20 17:29 Laboratory Tests 06/01/20 08:40: White Blood Count 2.6L, Red Blood Count 2.87L, Hemoglobin 8.5L, Hematocrit 26.3L , Mean Corpuscular Volume 92, Mean Corpuscular Hemoglobin 29.7, Mean Corpuscular Hemoglobin Concent 32.4, Red Cell Distribution Width 16.6H, Platelet Count 140L, Mean Platelet Volume 6.8, Neutrophils (%) (Auto) , Lymphocytes (%) (Auto) , Monocytes (%) (Auto) , Eosinophils (%) (Auto) , Basophils (%) (Auto) , Neutrophils % (Manual) [Pending], Lymphocytes % (Manual) [Pending], Platelet Estimate [Pending], Platelet Morphology [Pending], Sodium Level 130L, Potassium Level 3.6, Chloride Level 95L, Carbon Dioxide Level 29, Anion Gap 6, Blood Urea Nitrogen 30H, Creatinine 6.8H, Estimat Glomerular Filtration Rate 7.4, Glucose Level 98, Calcium Level 7.9L, Phosphorus Level 2.3L, Magnesium Level 2.5H, Total Bilirubin 0.4, Aspartate Amino Transf (AST/SGOT) 27, Alanine Aminotransferase (ALT/SGPT) < 6L, Alkaline Phosphatase 70, C-Reactive Protein, Quantitative 4.1H, Pro-B-Type Natriuretic Peptide > 37975X, Total Protein 8.5H, Albumin 2.8L, Globulin 5.7, Albumin/Globulin Ratio 0.5L Height (Feet): 5 Height (Inches): 5.00 Weight (Pounds): 160 General Appearance: no apparent distress Cardiovascular: normal rate Respiratory/Chest: decreased breath sounds Objective No change Jack Pryor MD Jun 01, 2020 10:12
[2020-06-01] MEDS: Heparin 5000 units/ml inj SUBQ SCH ×2 (10:21→21:00)
[2020-06-01] MEDS: Cefepime HCl 1 GM in D5W 55 ML IVPB SCH (12:06)
--- NOTE | 2020-06-01 13:10 | Infectious Diseases Prog Note ---
Assessment/Plan Assessment/Plan A 1. Staph aureus sepsis, MSSA 2. ESRD on HD 3. HIV 4. Hypertension 5. COVID 19 negative x 2 6. Gram negative UTI P 1. Continue cefepime 2. Will f/u 2 d echo pending Subjective ROS Limited/Unobtainable: Yes Constitutional: Denies: fever Allergies: Coded Allergies: ASPIRIN (Unverified Allergy, Unknown, 01/16/20) IODINE (Verified Allergy, Unknown, 01/07/20) Uncoded Allergies: CONTRAST DYE (Allergy, Unknown, 01/07/20) NSAID (Allergy, Unknown, 04/24/20) Objective Last 24 Hour Vital Signs Date Time Temp Pulse Resp B/P (MAP) Pulse Ox O2 Delivery O2 Flow Rate FiO2 06/01/20 12:00 99.1 76 20 140/66 (90) 94 06/01/20 09:40 79 146/77 06/01/20 09:00 Room Air 06/01/20 08:00 98.0 79 20 146/77 (100) 97 06/01/20 05:48 148/76 06/01/20 04:54 72 20 148/76 95 06/01/20 04:47 98.8 06/01/20 04:24 76 20 156/73 94 06/01/20 04:00 98.8 85 20 154/82 (106) 94 06/01/20 00:00 98.8 76 20 156/73 (100) 94 05/31/20 22:58 156/84 05/31/20 21:00 Room Air 05/31/20 20:00 98.5 74 18 156/84 (108) 94 05/31/20 16:13 153/73 05/31/20 16:00 98.6 85 20 153/73 (99) 93 Height (Feet): 5 Height (Inches): 5.00 Weight (Pounds): 160 General Appearance: no acute distress HEENT: mucous membranes moist Respiratory/Chest: lungs clear, other - oxygen by nasal cannula Cardiovascular: normal rate Abdomen: soft, non tender Extremities: no edema Neurologic/Psychiatric: other - sleeping Microbiology Date/Time Source Procedure Growth Status 05/31/20 15:20 Catheter Site Catheter Tip Culture - Preliminary NO GROWTH Resulted 05/30/20 15:15 Urine,Clean Catch Urine Culture - Preliminary Gram Negative Timmy Resulted 05/30/20 14:35 Nasopharynx SARS-CoV-2 RdRp Gene Assay - Final Complete Laboratory Tests Test 06/01/20 08:40 White Blood Count 2.6 K/UL (4.8-10.8) L Red Blood Count 2.87 M/UL (4.20-5.40) L Hemoglobin 8.5 G/DL (12.0-16.0) L Hematocrit 26.3 % (37.0-47.0) L Mean Corpuscular Volume 92 FL (80-99) Mean Corpuscular Hemoglobin 29.7 PG (27.0-31.0) Mean Corpuscular Hemoglobin Concent 32.4 G/DL (32.0-36.0) Red Cell Distribution Width 16.6 % (11.6-14.8) H Platelet Count 140 K/UL (150-450) L Mean Platelet Volume 6.8 FL (6.5-10.1) Neutrophils (%) (Auto) % (45.0-75.0) Lymphocytes (%) (Auto) % (20.0-45.0) Monocytes (%) (Auto) % (1.0-10.0) Eosinophils (%) (Auto) % (0.0-3.0) Basophils (%) (Auto) % (0.0-2.0) Differential Total Cells Counted 100 Neutrophils % (Manual) 69 % (45-75) Lymphocytes % (Manual) 18 % (20-45) L Monocytes % (Manual) 10 % (1-10) Eosinophils % (Manual) 1 % (0-3) Basophils % (Manual) 1 % (0-2) Band Neutrophils 1 % (0-8) Platelet Estimate Decreased L Platelet Morphology Normal Anisocytosis 1+ Sodium Level 130 MMOL/L (136-145) L Potassium Level 3.6 MMOL/L (3.5-5.1) Chloride Level 95 MMOL/L (98-107) L Carbon Dioxide Level 29 MMOL/L (21-32) Anion Gap 6 mmol/L (5-15) Blood Urea Nitrogen 30 mg/dL (7-18) H Creatinine 6.8 MG/DL (0.55-1.30) H Estimat Glomerular Filtration Rate 7.4 mL/min (>60) Glucose Level 98 MG/DL (74-106) Calcium Level 7.9 MG/DL (8.5-10.1) L Phosphorus Level 2.3 MG/DL (2.5-4.9) L Magnesium Level 2.5 MG/DL (1.8-2.4) H Total Bilirubin 0.4 MG/DL (0.2-1.0) Aspartate Amino Transf (AST/SGOT) 27 U/L (15-37) Alanine Aminotransferase (ALT/SGPT) < 6 U/L (12-78) L Alkaline Phosphatase 70 U/L (46-116) C-Reactive Protein, Quantitative 4.1 mg/dL (0.00-0.90) H Pro-B-Type Natriuretic Peptide > 20616 pg/mL (0-125) H Total Protein 8.5 G/DL (6.4-8.2) H Albumin 2.8 G/DL (3.4-5.0) L Globulin 5.7 g/dL Albumin/Globulin Ratio 0.5 (1.0-2.7) L Current Medications Medications (Trade) Dose Ordered Sig/Rochelle Route PRN Reason Start Time Stop Time Status Last Admin Dose Admin Acetaminophen (Tylenol) 650 mg Q6H PRN ORAL Temp >100.5 05/27/20 18:00 06/26/20 17:59 05/29/20 22:27 Acetaminophen/ Hydrocodone Bitart ([place] 10/325) 1 tab Q4H PRN ORAL Moderate Pain (4-6) 05/30/20 12:00 06/06/20 11:59 06/01/20 04:17 Amlodipine Besylate (Norvasc) 10 mg DAILY ORAL 05/24/20 16:00 06/23/20 15:59 06/01/20 09:40 Cefepime HCl 1 gm/ Dextrose 55 ml @ 110 mls/hr Q24H IVPB 05/31/20 13:00 06/07/20 12:59 06/01/20 12:06 Diphenhydramine HCl (Benadryl) 25 mg Q6H PRN ORAL Itching 05/25/20 08:30 06/24/20 08:29 05/30/20 08:24 Docusate Sodium (Colace) 100 mg TID ORAL 05/25/20 13:00 06/23/20 17:59 06/01/20 12:05 Epoetin Jose (Epoetin Jose(ESRD on dialysis)) 10,000 unit FRI-FRI-FRI SUBQ 05/26/20 21:00 08/24/20 20:59 05/31/20 20:11 Heparin Sodium (Porcine) (Heparin 5000 units/ml) 5,000 units EVERY 12 HOURS SUBQ 05/24/20 21:00 07/08/20 20:59 06/01/20 10:21 Hydralazine HCl (Apresoline) 25 mg Q6H PRN ORAL For High Blood Pressure 05/24/20 16:00 08/22/20 15:59 05/31/20 01:50 Hydralazine HCl (Apresoline) 75 mg EVERY 8 HOURS ORAL 05/31/20 14:00 08/29/20 13:59 06/01/20 05:48 Hydromorphone HCl (Dilaudid) 0.5 mg Q4H PRN IVP Moderate Pain (Pain Scale 4-6) 05/28/20 08:00 06/04/20 07:59 06/01/20 10:28 Hydromorphone HCl (Dilaudid) 2 mg DAILYPRN PRN IVP Severe Pain (Pain Scale 7-10) 05/27/20 10:45 06/03/20 10:44 05/31/20 20:12 Hydroxyzine HCl (Atarax) 25 mg Q8H ORAL 05/27/20 20:30 06/26/20 20:29 06/01/20 12:06 Levothyroxine Sodium (Synthroid) 75 mcg Q24H ORAL 05/27/20 06:30 06/26/20 06:29 06/01/20 05:48 Lidocaine HCl (Xylocaine Viscous) 15 ml Q4H PRN ORAL For Pain 05/31/20 18:15 08/29/20 18:14 Lidocaine HCl (Xylocaine 1% 30ml) 30 ml ONCE INJ 05/31/20 09:00 06/02/20 18:00 Lorazepam (Ativan) 1 mg Q6H PRN ORAL For Anxiety 05/30/20 10:00 06/06/20 09:59 06/01/20 04:24 Nitroglycerin (Ntg) 0.4 mg Q5M PRN SL Prn Chest Pain 05/24/20 10:45 06/23/20 10:44 Ondansetron HCl (Zofran) 4 mg Q6H PRN IVP Nausea & Vomiting 05/24/20 16:00 06/23/20 15:59 Pantoprazole (Protonix) 40 mg BID ORAL 05/29/20 18:00 06/25/20 08:59 06/01/20 09:40 Patient Own Medication (Patient's Own Med) 1 ea BID ORAL 05/30/20 18:00 06/29/20 17:59 06/01/20 09:41 Patient Own Medication (Patient's Own Med) 1 ea BID ORAL 05/30/20 18:00 06/29/20 17:59 06/01/20 09:42 Patient Own Medication (Patient's Own Med) 1 ea DAILY ORAL 05/31/20 09:00 06/30/20 08:59 06/01/20 09:40 Sodium Chloride 1,000 ml @ 500 mls/hr Q2H PRN IVLG sbp<90 during hd 05/25/20 17:30 06/24/20 17:29 Armando Brown MD Jun 01, 2020 13:10
[2020-06-02] VITALS (9 sets, daily range): BP systolic 119–154; BP diastolic 69–78
[2020-06-02] MEDS: LORazepam 1mg tab ORAL PRN ×2 (04:20→14:56)
[2020-06-02] MEDS: HydrOXYzine tab 25mg tab ORAL SCH ×3 (04:20→20:54)
[2020-06-02] MEDS: HYDROmorphone 1mg/ml Carpuject IVP PRN ×3 (04:21→23:07)
[2020-06-02] MEDS: HydrALAZINE 25mg tab ORAL SCH ×3 (06:14→23:05)
--- NOTE | 2020-06-02 06:54 | General Progress Note ---
Subjective ROS Limited/Unobtainable: No Constitutional: Reports: malaise, weakness HEENT: Reports: no symptoms Cardiovascular: Reports: no symptoms Respiratory: Reports: no symptoms Allergies: Coded Allergies: ASPIRIN (Unverified Allergy, Unknown, 01/16/20) IODINE (Verified Allergy, Unknown, 01/07/20) Uncoded Allergies: CONTRAST DYE (Allergy, Unknown, 01/07/20) NSAID (Allergy, Unknown, 04/24/20) Subjective resting. no events. no fever or chills.pain better controlled. intermittent anxiety and pain. meds reviewed. no fevers. renal and ID noted. Objective Last 24 Hour Vital Signs Date Time Temp Pulse Resp B/P (MAP) Pulse Ox O2 Delivery O2 Flow Rate FiO2 06/02/20 06:14 149/69 06/02/20 04:51 98.0 06/02/20 04:50 73 19 145/72 97 06/02/20 04:20 72 18 136/69 98 06/02/20 04:00 98.1 73 24 149/69 (95) 94 06/02/20 00:00 98.0 72 18 136/69 (91) 98 06/01/20 21:51 98 18 148/92 94 06/01/20 21:22 152/96 06/01/20 21:21 114 18 152/96 92 06/01/20 20:26 Room Air 06/01/20 20:00 97.9 114 18 152/96 (114) 92 06/01/20 16:00 97.9 77 20 138/60 (86) 94 06/01/20 14:52 75 18 137/69 (91) 96 06/01/20 14:52 75 18 137/69 96 06/01/20 14:22 76 20 146/66 94 06/01/20 14:12 76 146/66 (92) 06/01/20 14:11 140/66 06/01/20 12:00 99.1 76 20 140/66 (90) 94 06/01/20 09:40 79 146/77 06/01/20 09:00 Room Air 06/01/20 08:00 98.0 79 20 146/77 (100) 97 Intake and Output 06/01/20 06/02/20 18:59 06:59 Intake Total 480 ml Balance 480 ml Intake Oral 480 ml Laboratory Tests 06/01/20 08:40: White Blood Count 2.6L, Red Blood Count 2.87L, Hemoglobin 8.5L, Hematocrit 26.3L , Mean Corpuscular Volume 92, Mean Corpuscular Hemoglobin 29.7, Mean Corpuscular Hemoglobin Concent 32.4, Red Cell Distribution Width 16.6H, Platelet Count 140L, Mean Platelet Volume 6.8, Neutrophils (%) (Auto) , Lymphocytes (%) (Auto) , Monocytes (%) (Auto) , Eosinophils (%) (Auto) , Basophils (%) (Auto) , Differential Total Cells Counted 100, Neutrophils % (Manual) 69, Lymphocytes % (Manual) 18L, Monocytes % (Manual) 10, Eosinophils % (Manual) 1, Basophils % (Manual) 1, Band Neutrophils 1, Platelet Estimate DecreasedL, Platelet Morphology Normal, Anisocytosis 1+, Sodium Level 130L, Potassium Level 3.6, Chloride Level 95L, Carbon Dioxide Level 29, Anion Gap 6, Blood Urea Nitrogen 30H, Creatinine 6.8H, Estimat Glomerular Filtration Rate 7.4, Glucose Level 98, Calcium Level 7.9L, Phosphorus Level 2.3L, Magnesium Level 2.5H, Total Bilirubin 0.4, Aspartate Amino Transf (AST/SGOT) 27, Alanine Aminotransferase (ALT/SGPT) < 6L, Alkaline Phosphatase 70, C-Reactive Protein, Quantitative 4.1H, Pro-B-Type Natriuretic Peptide > 78862D, Total Protein 8.5H, Albumin 2.8L, Globulin 5.7, Albumin/Globulin Ratio 0.5L Height (Feet): 5 Height (Inches): 5.00 Weight (Pounds): 160 Objective General Appearance: WD/WN, alert, mild distress, agitated EENT: normal ENT inspection Neck: non-tender, normal alignment, supple Cardiovascular: normal peripheral pulses, normal rate, regular rhythm Respiratory/Chest: chest wall non-tender, lungs clear, normal breath sounds, no respiratory distress Abdomen: normal bowel sounds, non tender, soft, no organomegaly Edema: no edema noted Arm (L), no edema noted Arm (R) Neurologic: bagger meat II-XII grossly normal, alert, responsive Skin: other - ?abrasion between buttocks Assessment/Plan Problem List: (1) Hypertensive urgency ICD Codes: I16.0 - Hypertensive urgency SNOMED: 442494197 (2) HIV disease ICD Codes: B20 - Human immunodeficiency virus [HIV] disease SNOMED: 21870864 (3) CHF (congestive heart failure), NYHA class II ICD Codes: I50.9 - Heart failure, unspecified SNOMED: 174558332, 911731524 (4) ESRD (end stage renal disease) on dialysis ICD Codes: N18.6 - End stage renal disease; Z99.2 - Dependence on renal dialysis SNOMED: 798017273 (5) Substance abuse ICD Codes: F19.10 - Other psychoactive substance abuse, uncomplicated SNOMED: 34488382 Status: stable, progressing Assessment/Plan: iv abx per ID HD per renal wound care tylenol for fever dvt/stress ulcer prophylaxis pain rx and anxiolytics as needed New HD catheter when cleared by ID consider vascular eval for AVF cont pain rx and anxiolytics dvt/stress ulcer prophylaxis out of bed Michael Peralta MD Jun 02, 2020 06:54
[2020-06-02 07:25] LABS: INR 1.2 (0.9-1.1)
[2020-06-02 07:27] LABS: BASOPHILS % (AUTO) 1.1 % (0.0-2.0); LYMPHOCYTES % (AUTO) 12.1 % (20.0-45.0); MEAN CORPUSCULAR VOLUME 89 FL (80-99); MONOCYTES % (AUTO) 7.4 % (1.0-10.0); NEUTROPHILS % (AUTO) 75.4 % (45.0-75.0); PLATELET COUNT 185 K/UL (150-450); RED BLOOD COUNT 3.03 M/UL (4.20-5.40); WHITE BLOOD COUNT 4.7 K/UL (4.8-10.8)
[2020-06-02 07:42] LABS: ALANINE AMINOTRANSFERASE < 6 U/L (12-78); ALBUMIN/GLOBULIN RATIO 0.6 (1.0-2.7); ALKALINE PHOSPHATASE 71 U/L (46-116); ANION GAP 7 mmol/L (5-15); ASPARTATE AMINO TRANSFERASE 20 U/L (15-37); BILIRUBIN,TOTAL 0.4 MG/DL (0.2-1.0); BLOOD UREA NITROGEN 32 mg/dL (7-18); CALCIUM 8.3 MG/DL (8.5-10.1); CARBON DIOXIDE 30 MMOL/L (21-32); CHLORIDE 93 MMOL/L (98-107); PHOSPHORUS 2.8 MG/DL (2.5-4.9); POTASSIUM 3.8 MMOL/L (3.5-5.1); SODIUM 130 MMOL/L (136-145)
[2020-06-02] MEDS: Lidocaine 1% Plain 30 ml INJ SCH (09:00)
[2020-06-02] MEDS: Docusate 100mg cap ORAL SCH ×3 (09:14→18:43)
[2020-06-02] MEDS ORDERED: Lidocaine 1% Plain 30 ml INJ SCH (09:15)
[2020-06-02] MEDS ORDERED: Heparin1,000 units/500ml Premix(Conc:2 units/ml) INJ SCH (09:15)
[2020-06-02] MEDS: Heparin 5000 units/ml inj SUBQ SCH ×2 (09:17→21:00)
[2020-06-02] MEDS: Patient's Own Med - Tivicay 50mg ORAL SCH (09:27)
[2020-06-02] MEDS: Patient's Own Med - Ritonavir 100mg ORAL SCH ×2 (09:27→18:42)
--- NOTE | 2020-06-02 10:11 | Nephrology Progress Note ---
Assessment/Plan Problem List: (1) ESRD (end stage renal disease) on dialysis (2) HIV disease (3) HCV antibody positive (4) Hypertensive urgency (5) Substance abuse Assessment Patient admitted with hypertensive urgency (1) ESRD (end stage renal disease) on dialysis (2) HIV disease (3) Cocaine abuse (4) Noncompliance (5) Anemia of chronic kidney disease Plan June 02: Patient continues to have persistent bacteremia. Due for no ntunneled dialysis catheter today. Will be dialyzed after insertion of the catheter today as her last dialysis was 3 days ago. Continue per consultants. June 01: Dialysis catheter removed May 31. Labs reviewed. Discussed with RN. Will arrange for placement of a nontunneled dialysis catheter tomorrow. We will continue to order surveillance blood cultures. When blood cu ltures are negative will attempt to put a tunneled catheter prior to discharge. Continue per orders. May 31: Status quo. Dialyzed yesterday. I are will remove the permacath today. Tip will be sent for culture. Surveillance blood culture ordered for today again. CRP lower today. Continue to monitor electrolytes and renal parameters. May 30: Low-grade fever persists. Due for dialysis today. As per ID recommendation will discontinue the dialysis catheter which may be the source of fever and bacteremia. Discussed with RN. Orders given. Will check labs tomorrow. May 29: Patient remains febrile. Nontoxic. Dialyzed yesterday. Next dialysis tomorrow. Preliminary blood cultures positive for gram-positive's. Most likely source dialysis catheter. CRP jumped up to 14. Continue per ID advice. Keep the blood pressure and blood sugar in check. Will obtain repeated blood culture tomorrow during dialysis. Patient on vancomycin. May 28: Patient febrile. Cultures taken during dialysis. Vancomycin 1 dose given. Will check labs tomorrow. A temporary catheter may need to be discontinued and replaced if blood cultures positive. Continue per consultants. May 27: Patient in mild distress due to itching and generalized pain. Was dialyzed yesterday. Will dialyze again tomorrow. Will start on Atarax [id number] for itching. Labs reviewed, medications reviewed and adjusted. B12 subcu and to p.o. Synthroid ordered Patient was dialyzed 05/24, will dialyze today Will adjust blood pressure medication Per orders 2. Dr. Townsend to call urologist the catheter again yet to talk to the person was put in the disc note thank you very much by Subjective ROS Limited/Unobtainable: No Objective Objective Last 24 Hour Vital Signs Date Time Temp Pulse Resp B/P (MAP) Pulse Ox O2 Delivery O2 Flow Rate FiO2 06/02/20 09:14 72 119/70 06/02/20 08:00 98.4 72 20 119/70 (86) 98 06/02/20 06:14 149/69 06/02/20 04:51 98.0 06/02/20 04:50 73 19 145/72 97 06/02/20 04:20 72 18 136/69 98 06/02/20 04:00 98.1 73 24 149/69 (95) 94 06/02/20 00:00 98.0 72 18 136/69 (91) 98 06/01/20 21:51 98 18 148/92 94 06/01/20 21:22 152/96 06/01/20 21:21 114 18 152/96 92 06/01/20 20:26 Room Air 06/01/20 20:00 97.9 114 18 152/96 (114) 92 06/01/20 16:00 97.9 77 20 138/60 (86) 94 06/01/20 14:52 75 18 137/69 (91) 96 06/01/20 14:52 75 18 137/69 96 06/01/20 14:22 76 20 146/66 94 06/01/20 14:12 76 146/66 (92) 06/01/20 14:11 140/66 06/01/20 12:00 99.1 76 20 140/66 (90) 94 Intake and Output 06/01/20 06/02/20 19:00 07:00 Intake Total 480 ml 550 ml Balance 480 ml 550 ml Intake Oral 480 ml 550 ml Current Medications Medications (Trade) Dose Ordered Sig/Rochelle Route PRN Reason Start Time Stop Time Status Last Admin Dose Admin Acetaminophen (Tylenol) 650 mg Q6H PRN ORAL Temp >100.5 05/27/20 18:00 06/26/20 17:59 05/29/20 22:27 Acetaminophen/ Hydrocodone Bitart ([place] 10) 1 tab Q4H PRN ORAL Moderate Pain (4-6) 05/30/20 12:00 11/3/20 11:59 06/01/20 04:17 Amlodipine Besylate (Norvasc) 10 mg DAILY ORAL 05/24/20 16:00 06/23/20 15:59 06/02/20 09:14 Cefepime HCl 1 gm/ Dextrose 55 ml @ 110 mls/hr Q24H IVPB 05/31/20 13:00 06/07/20 12:59 06/01/20 12:06 Diphenhydramine HCl (Benadryl) 25 mg Q6H PRN ORAL Itching 05/25/20 08:30 06/24/20 08:29 06/01/20 20:35 Docusate Sodium (Colace) 100 mg TID ORAL 05/25/20 13:00 06/23/20 17:59 06/02/20 09:14 Epoetin Jose (Epoetin Jose(ESRD on dialysis)) 10,000 unit FRI-FRI-FRI SUBQ 05/26/20 21:00 08/24/20 20:59 05/31/20 20:11 Heparin Sodium (Porcine) (Heparin 5000 units/ml) 5,000 units EVERY 12 HOURS SUBQ 05/24/20 21:00 07/08/20 20:59 06/02/20 09:17 Heparin Sodium/ Sodium Chloride (Heparin 1000 units/500ml Premix) 1,000 unit ONCE INJ 06/02/20 09:15 06/02/20 23:59 Hydralazine HCl (Apresoline) 25 mg Q6H PRN ORAL For High Blood Pressure 05/24/20 16:00 08/22/20 15:59 05/31/20 01:50 Hydralazine HCl (Apresoline) 75 mg EVERY 8 HOURS ORAL 05/31/20 14:00 08/29/20 13:59 06/02/20 06:14 Hydromorphone HCl (Dilaudid) 0.5 mg Q4H PRN IVP Moderate Pain (Pain Scale 4-6) 05/28/20 08:00 06/04/20 07:59 06/02/20 09:14 Hydromorphone HCl (Dilaudid) 2 mg DAILYPRN PRN IVP Severe Pain (Pain Scale 7-10) 05/27/20 10:45 06/03/20 10:44 06/01/20 18:26 Hydroxyzine HCl (Atarax) 25 mg Q8H ORAL 05/27/20 20:30 06/26/20 20:29 06/02/20 04:20 Levothyroxine Sodium (Synthroid) 75 mcg Q24H ORAL 05/27/20 06:30 06/26/20 06:29 06/02/20 06:13 Lidocaine HCl (Xylocaine Viscous) 15 ml Q4H PRN ORAL For Pain 05/31/20 18:15 08/29/20 18:14 Lidocaine HCl (Xylocaine 1% 30ml) 30 ml ONCE INJ 05/31/20 09:00 06/02/20 18:00 Lidocaine HCl (Xylocaine 1% 30ml) 30 ml ONCE INJ 06/02/20 09:15 06/02/20 23:59 Lorazepam (Ativan) 1 mg Q6H PRN ORAL For Anxiety 05/30/20 10:00 06/06/20 09:59 06/02/20 04:20 Nitroglycerin (Ntg) 0.4 mg Q5M PRN SL Prn Chest Pain 05/24/20 10:45 06/23/20 10:44 Ondansetron HCl (Zofran) 4 mg Q6H PRN IVP Nausea & Vomiting 05/24/20 16:00 06/23/20 15:59 Pantoprazole (Protonix) 40 mg BID ORAL 05/29/20 18:00 06/25/20 08:59 06/02/20 09:14 Patient Own Medication (Patient's Own Med) 1 ea BID ORAL 05/30/20 18:00 06/29/20 17:59 06/02/20 09:27 Patient Own Medication (Patient's Own Med) 1 ea BID ORAL 05/30/20 18:00 06/29/20 17:59 06/02/20 09:27 Patient Own Medication (Patient's Own Med) 1 ea DAILY ORAL 05/31/20 09:00 06/30/20 08:59 06/02/20 09:27 Sodium Chloride 1,000 ml @ 500 mls/hr Q2H PRN IVLG sbp<90 during hd 05/25/20 17:30 06/24/20 17:29 Laboratory Tests 06/02/20 05:49: White Blood Count 4.7#L, Red Blood Count 3.03L, Hemoglobin 9.0L, Hematocrit 27.0L, Mean Corpuscular Volume 89, Mean Corpuscular Hemoglobin 29.9, Mean Corpuscular Hemoglobin Concent 33.5, Red Cell Distribution Width 17.0H, Platelet Count 185, Mean Platelet Volume 6.7, Neutrophils (%) (Auto) 75.4H, Lymphocytes (%) (Auto) 12.1L, Monocytes (%) (Auto) 7.4, Eosinophils (%) (Auto) 4.0H, Basophils (%) (Auto) 1.1, Prothrombin Time 12.6H, Prothromb Time International Ratio 1.2H, Activated Partial Thromboplast Time 33, Sodium Level 130L, Potassium Level 3.8, Chloride Level 93L, Carbon Dioxide Level 30, Anion Gap 7, Blood Urea Nitrogen 32H, Creatinine 8.0H, Estimat Glomerular Filtration Rate 6.1, Glucose L evel 87, Calcium Level 8.3L, Phosphorus Level 2.8, Magnesium Level 2.5H, Total Bilirubin 0.4, Aspartate Amino Transf (AST/SGOT) 20, Alanine Aminotransferase (ALT/SGPT) < 6L, Alkaline Phosphatase 71, C-Reactive Protein, Quantitative 3.2H, Total Protein 8.2, Albumin 3.0L, Globulin 5.2, Albumin/Globulin Ratio 0.6L Height (Feet): 5 Height (Inches): 5.00 Weight (Pounds): 160 General Appearance: no apparent distress, lethargic Cardiovascular: normal rate Respiratory/Chest: decreased breath sounds Abdomen: soft Objective No change Jack Pryor MD Jun 02, 2020 10:11
--- NOTE | 2020-06-02 11:18 | Infectious Diseases Prog Note ---
"Assessment/Plan Assessment/Plan antibiotics : cefepime A 1. staph aureus sepsis s/p catheter removal 2. gram negative catheter infection 3. renal failure on HD 4. HIV 5. hypertension 6. COVID 19 negative x 2 7. e.coli | proteus UTI P 1. continue cefepime 2. 2 d echo pending 3. will follow up cultures 4. blood culture Subjective Constitutional: Denies: fever, chills Respiratory: Denies: shortness of breath, dry cough Gastrointestinal/Abdominal: Denies: nausea, vomiting, diarrhea Musculoskeletal: Reports: pain Allergies: Coded Allergies: ASPIRIN (Unverified Allergy, Unknown, 01/16/20) IODINE (Verified Allergy, Unknown, 01/07/20) Uncoded Allergies: CONTRAST DYE (Allergy, Unknown, 01/07/20) NSAID (Allergy, Unknown, 04/24/20) Objective Last 24 Hour Vital Signs Date Time Temp Pulse Resp B/P (MAP) Pulse Ox O2 Delivery O2 Flow Rate FiO2 06/02/20 09:14 72 119/70 06/02/20 08:00 98.4 72 20 119/70 (86) 98 06/02/20 06:14 149/69 06/02/20 04:51 98.0 06/02/20 04:50 73 19 145/72 97 06/02/20 04:20 72 18 136/69 98 06/02/20 04:00 98.1 73 24 149/69 (95) 94 06/02/20 00:00 98.0 72 18 136/69 (91) 98 06/01/20 21:51 98 18 148/92 94 06/01/20 21:22 152/96 06/01/20 21:21 114 18 152/96 92 06/01/20 20:26 Room Air 06/01/20 20:00 97.9 114 18 152/96 (114) 92 06/01/20 16:00 97.9 77 20 138/60 (86) 94 06/01/20 14:52 75 18 137/69 (91) 96 06/01/20 14:52 75 18 137/69 96 06/01/20 14:22 76 20 146/66 94 06/01/20 14:12 76 146/66 (92) 06/01/20 14:11 140/66 06/01/20 12:00 99.1 76 20 140/66 (90) 94 Height (Feet): 5 Height (Inches): 5.00 Weight (Pounds): 160 Respiratory/Chest: lungs clear Cardiovascular: normal rate, regular rhythm, no gallop/murmur Abdomen: soft, non tender Extremities: no edema Microbiology Date/Time Source Procedure Growth Status 05/31/20 15:20 Catheter Site Catheter Tip Culture - Preliminary Gram Negative Timmy Resulted 05/31/20 11:40 Blood Blood Culture - Preliminary Staphylococcus Aureus Resulted 05/31/20 11:30 Blood Blood Culture - Preliminary Staphylococcus Aureus Resulted 05/30/20 15:15 Urine,Clean Catch Urine Culture - Final Escherichia Coli Proteus Mirabilis Complete 05/30/20 14:35 Nasopharynx SARS-CoV-2 RdRp Gene Assay - Final Complete Laboratory Tests Test 06/02/20 05:49 White Blood Count 4.7 K/UL (4.8-10.8) #L Red Blood Count 3.03 M/UL (4.20-5.40) L Hemoglobin 9.0 G/DL (12.0-16.0) L Hematocrit 27.0 % (37.0-47.0) L Mean Corpuscular Volume 89 FL (80-99) Mean Corpuscular Hemoglobin 29.9 PG (27.0-31.0) Mean Corpuscular Hemoglobin Concent 33.5 G/DL (32.0-36.0) Red Cell Distribution Width 17.0 % (11.6-14.8) H Platelet Count 185 K/UL (150-450) Mean Platelet Volume 6.7 FL (6.5-10.1) Neutrophils (%) (Auto) 75.4 % (45.0-75.0) H Lymphocytes (%) (Auto) 12.1 % (20.0-45.0) L Monocytes (%) (Auto) 7.4 % (1.0-10.0) Eosinophils (%) (Auto) 4.0 % (0.0-3.0) H Basophils (%) (Auto) 1.1 % (0.0-2.0) Prothrombin Time 12.6 SEC (9.30-11.50) H Prothromb Time International Ratio 1.2 (0.9-1.1) H Activated Partial Thromboplast Time 33 SEC (23-33) Sodium Level 130 MMOL/L (136-145) L Potassium Level 3.8 MMOL/L (3.5-5.1) Chloride Level 93 MMOL/L (98-107) L Carbon Dioxide Level 30 MMOL/L (21-32) Anion Gap 7 mmol/L (5-15) Blood Urea Nitrogen 32 mg/dL (7-18) H Creatinine 8.0 MG/DL (0.55-1.30) H Estimat Glomerular Filtration Rate 6.1 mL/min (>60) Glucose Level 87 MG/DL (74-106) Calcium Level 8.3 MG/DL (8.5-10.1) L Phosphorus Level 2.8 MG/DL (2.5-4.9) Magnesium Level 2.5 MG/DL (1.8-2.4) H Total Bilirubin 0.4 MG/DL (0.2-1.0) Aspartate Amino Transf (AST/SGOT) 20 U/L (15-37) Alanine Aminotransferase (ALT/SGPT) < 6 U/L (12-78) L Alkaline Phosphatase 71 U/L (46-116) C-Reactive Protein, Quantitative 3.2 mg/dL (0.00-0.90) H Total Protein 8.2 G/DL (6.4-8.2) Albumin 3.0 G/DL (3.4-5.0) L Globulin 5.2 g/dL Albumin/Globulin Ratio 0.6 (1.0-2.7) L Current Medications Medications (Trade) Dose Ordered Sig/Rochelle Route PRN Reason Start Time Stop Time Status Last Admin Dose Admin Acetaminophen (Tylenol) 650 mg Q6H PRN ORAL Temp >100.5 05/27/20 18:00 06/26/20 17:59 05/29/20 22:27 Acetaminophen/ Hydrocodone Bitart ([place] 10/325) 1 tab Q4H PRN ORAL Moderate Pain (4-6) 05/30/20 12:00 06/06/20 11:59 06/01/20 04:17 Amlodipine Besylate (Norvasc) 10 mg DAILY ORAL 05/24/20 16:00 06/23/20 15:59 06/02/20 09:14 Cefepime HCl 1 gm/ Dextrose 55 ml @ 110 mls/hr Q24H IVPB 05/31/20 13:00 11/4/20 12:59 06/01/20 12:06 Diphenhydramine HCl (Benadryl) 25 mg Q6H PRN ORAL Itching 05/25/20 08:30 06/24/20 08:29 06/01/20 20:35 Docusate Sodium (Colace) 100 mg TID ORAL 05/25/20 13:00 06/23/20 17:59 06/02/20 09:14 Epoetin Jose (Epoetin Jose(ESRD on dialysis)) 10,000 unit FRI- SUBQ 05/26/20 21:00 08/24/20 20:59 05/31/20 20:11 Heparin Sodium (Porcine) (Heparin 5000 units/ml) 5,000 units EVERY 12 HOURS SUBQ 05/24/20 21:00 07/08/20 20:59 06/02/20 09:17 Heparin Sodium/ Sodium Chloride (Heparin 1000 units/500ml Premix) 1,000 unit ONCE INJ 06/02/20 09:15 06/02/20 23:59 Hydralazine HCl (Apresoline) 25 mg Q6H PRN ORAL For High Blood Pressure 05/24/20 16:00 08/22/20 15:59 05/31/20 01:50 Hydralazine HCl (Apresoline) 75 mg EVERY 8 HOURS ORAL 05/31/20 14:00 08/29/20 13:59 06/02/20 06:14 Hydromorphone HCl (Dilaudid) 0.5 mg Q4H PRN IVP Moderate Pain (Pain Scale 4-6) 05/28/20 08:00 06/04/20 07:59 06/02/20 09:14 Hydromorphone HCl (Dilaudid) 2 mg DAILYPRN PRN IVP Severe Pain (Pain Scale 7-10) 05/27/20 10:45 06/03/20 10:44 06/01/20 18:26 Hydroxyzine HCl (Atarax) 25 mg Q8H ORAL 05/27/20 20:30 06/26/20 20:29 06/02/20 04:20 Levothyroxine Sodium (Synthroid) 75 mcg Q24H ORAL 05/27/20 06:30 06/26/20 06:29 06/02/20 06:13 Lidocaine HCl (Xylocaine Viscous) 15 ml Q4H PRN ORAL For Pain 05/31/20 18:15 08/29/20 18:14 Lidocaine HCl (Xylocaine 1% 30ml) 30 ml ONCE INJ 05/31/20 09:00 06/02/20 18:00 Lidocaine HCl (Xylocaine 1% 30ml) 30 ml ONCE INJ 06/02/20 09:15 06/02/20 23:59 Lorazepam (Ativan) 1 mg Q6H PRN ORAL For Anxiety 05/30/20 10:00 06/06/20 09:59 06/02/20 04:20 Nitroglycerin (Ntg) 0.4 mg Q5M PRN SL Prn Chest Pain 05/24/20 10:45 06/23/20 10:44 Ondansetron HCl (Zofran) 4 mg Q6H PRN IVP Nausea & Vomiting 05/24/20 16:00 06/23/20 15:59 Pantoprazole (Protonix) 40 mg BID ORAL 05/29/20 18:00 06/25/20 08:59 06/02/20 09:14 Patient Own Medication (Patient's Own Med) 1 ea BID ORAL 05/30/20 18:00 06/29/20 17:59 06/02/20 09:27 Patient Own Medication (Patient's Own Med) 1 ea BID ORAL 05/30/20 18:00 06/29/20 17:59 06/02/20 09:27 Patient Own Medication (Patient's Own Med) 1 ea DAILY ORAL 05/31/20 09:00 06/30/20 08:59 06/02/20 09:27 Sodium Chloride 1,000 ml @ 500 mls/hr Q2H PRN IVLG sbp<90 during hd 05/25/20 17:30 06/24/20 17:29 Elvis Garibay MD Jun 02, 2020 11:18"
[2020-06-02] MEDS: Cefepime HCl 1 GM in D5W 55 ML IVPB SCH (13:24)
--- NOTE | 2020-06-02 16:36 | Pre-Procedure Note/Attestation ---
Pre-Procedure Note/Attestation Complete Prior to Procedure Planned Procedure: not applicable Procedure Narrative: lazaro catheter Indications for Procedure Pre-Operative Diagnosis: renal failure Attestation I attest that I discussed the nature of the procedure; its benefits; risks and complications; and alternatives (and the risks and benefits of such alternatives), prior to the procedure, with the patient (or the patient's legal printing sales representative). I attest that, if there was a reasonable possibility of needing a blood transfusion, the patient (or the patient's legal printing sales representative) was given the [facility] standardized written summary, pursuant to the [place] Blood Safety Act ([place] Health and Safety Code # 1645, as amended). I attest that I re-evaluated the patient just prior to the surgery and that there has been no change in the patient's H&P, except as documented below: Haile Luciano MD Jun 02, 2020 16:36
--- NOTE | 2020-06-02 16:37 | Brief Operative Note ---
Immediate Post Operative Note Operative Note Pre-op Diagnosis: renal failure Procedure: L IJV lazaro Post-op Diagnosis: same as pre-op Surgeon: Anayeli Oden Specimen: none Complications: none Fluids: none Implant(s) used?: No Haile Oden MD Jun 02, 2020 16:36
--- NOTE | 2020-06-02 16:52 | Diagnostic Imaging Report ---
Indication:Needs dialysis access Technique: Procedural timeout performed. Informed consent obtained prior to commencement of the procedure.. Ultrasound confirms patent compressible left internal jugular vein. Total sterile technique, including sterile probe cover and sterile gel, sterile gloves, hand hygiene, hat, mask, sterile gown, large sterile drape, and preparation with 2% chlorhexidine utilized.Local anesthesia with 1% lidocaine. Under real-time ultrasound guidance with direct visualization of the needle entering the vein, puncture right internal jugular vein using 21-gauge needle, passage 0.018 guidewire, insertion 4 Yi micropuncture introducer, passage 0.035 guidewire, over which was passed serial dilators and then a 20 cm long triple-lumen temporary dialysis catheter, under fluoroscopic supervision. Completion stored digital radiograph obtained, demonstrating catheter tip position at high right atrium The patient tolerated the procedure well, without immediate complication. Fluoroscopy time 27.9 seconds Dose Area Product [id number] mgym2 Impression: Successful placement of left jugular temporary dialysis catheter, as described.
[2020-06-02] MEDS: Epoetin Alfa-EPBX(ESRD on dialysis)10,000 unit/ml vial SUBQ SCH (20:54)
[2020-06-03] VITALS: BP 143/62
[2020-06-03] MEDS: LORazepam 1mg tab ORAL PRN ×3 (03:22→20:48)
[2020-06-03] MEDS: HYDROmorphone 1mg/ml Carpuject IVP PRN ×3 (03:23→20:50)
[2020-06-03 04:00] VITALS: BP 129/67
[2020-06-03] MEDS: HydrOXYzine tab 25mg tab ORAL SCH ×3 (06:02→20:47)
[2020-06-03] MEDS: HydrALAZINE 25mg tab ORAL SCH ×3 (06:03→21:00)
--- NOTE | 2020-06-03 07:51 | General Progress Note ---
Subjective ROS Limited/Unobtainable: No Constitutional: Reports: malaise, weakness HEENT: Reports: no symptoms Cardiovascular: Reports: no symptoms Respiratory: Reports: no symptoms Gastrointestinal/Abdominal: Reports: no symptoms Genitourinary: Reports: no symptoms Neurologic/Psychiatric: Reports: no symptoms Endocrine: Reports: no symptoms Hematologic/Lymphatic: Reports: no symptoms Allergies: Coded Allergies: ASPIRIN (Unverified Allergy, Unknown, 01/16/20) IODINE (Verified Allergy, Unknown, 01/07/20) Uncoded Allergies: CONTRAST DYE (Allergy, Unknown, 01/07/20) NSAID (Allergy, Unknown, 04/24/20) All Systems: reviewed and negative except above Subjective resting. no events. no fever or chills.pain better controlled. intermittent anxiety and pain. meds reviewed. no fevers. renal and ID noted. s/p lazaro cath and HD, tolerated well Objective Last 24 Hour Vital Signs Date Time Temp Pulse Resp B/P (MAP) Pulse Ox O2 Delivery O2 Flow Rate FiO2 06/03/20 06:03 129/67 06/03/20 04:00 98.7 78 20 129/67 (87) 95 06/03/20 03:22 67 19 129/67 96 06/03/20 00:00 98.1 75 20 143/62 (89) 95 06/02/20 23:05 141/75 06/02/20 21:00 Room Air 06/02/20 20:00 98.1 91 18 141/75 (97) 95 06/02/20 18:00 76 153/77 (102) 06/02/20 16:29 98.1 75 20 138/76 (96) 97 06/02/20 16:24 98.4 74 19 136/78 (97) 96 06/02/20 16:07 72 18 06/02/20 14:56 75 16 143/70 97 06/02/20 13:24 154/77 06/02/20 12:00 97.6 78 18 154/77 (102) 96 06/02/20 09:14 72 119/70 06/02/20 09:00 Room Air 06/02/20 08:00 98.4 72 20 119/70 (86) 98 Intake and Output 06/02/20 06/03/20 19:00 07:00 Intake Total 555 ml Balance 555 ml Intake Oral 500 ml IV Total 55 ml # Voids 1 1 # Bowel Movements 1 1 Height (Feet): 5 Height (Inches): 5.00 Weight (Pounds): 160 Objective General Appearance: WD/WN, alert, mild distress, agitated EENT: normal ENT inspection Neck: non-tender, normal alignment, supple Cardiovascular: normal peripheral pulses, normal rate, regular rhythm Respiratory/Chest: chest wall non-tender, lungs clear, normal breath sounds, no respiratory distress Abdomen: normal bowel sounds, non tender, soft, no organomegaly Edema: no edema noted Arm (L), no edema noted Arm (R) Neurologic: financial service representative II-XII grossly normal, alert, responsive Skin: other - ?abrasion between buttocks Assessment/Plan Problem List: (1) Hypertensive urgency ICD Codes: I16.0 - Hypertensive urgency SNOMED: 345440387 (2) HIV disease ICD Codes: B20 - Human immunodeficiency virus [HIV] disease SNOMED: 92955517 (3) CHF (congestive heart failure), NYHA class II ICD Codes: I50.9 - Heart failure, unspecified SNOMED: 889923702, 390872553 (4) ESRD (end stage renal disease) on dialysis ICD Codes: N18.6 - End stage renal disease; Z99.2 - Dependence on renal dialysis SNOMED: 176298850 (5) Substance abuse ICD Codes: F19.10 - Other psychoactive substance abuse, uncomplicated SNOMED: 81840099 Status: stable, progressing Assessment/Plan: iv abx per ID HD per renal wound care tylenol for fever dvt/stress ulcer prophylaxis pain rx and anxiolytics as needed HD per renal perm cath when cleared by ID consider vascular eval for AVF cont pain rx and anxiolytics dvt/stress ulcer prophylaxis out of bed Michael Peralta MD Jun 03, 2020 07:51
[2020-06-03 08:00] VITALS: BP 118/54
[2020-06-03] MEDS: Docusate 100mg cap ORAL SCH ×3 (08:30→17:12)
[2020-06-03] MEDS: Patient's Own Med - Ritonavir 100mg ORAL SCH ×2 (08:31→17:12)
[2020-06-03] MEDS: Patient's Own Med - Tivicay 50mg ORAL SCH (08:31)
[2020-06-03] MEDS: Heparin 5000 units/ml inj SUBQ SCH ×2 (08:32→20:56)
[2020-06-03 12:00] VITALS: BP 155/72
[2020-06-03] MEDS: Cefepime HCl 1 GM in D5W 55 ML IVPB SCH (12:06)
--- NOTE | 2020-06-03 15:24 | Infectious Diseases Prog Note ---
Assessment/Plan Assessment/Plan A 1. Staph aureus sepsis, MSSA 2. ESRD on HD 3. HIV 4. Hypertension 5. COVID 19 negative x 2 6. Gram negative UTI P 1. Continue cefepime 2. Will f/u 2 d echo Subjective ROS Limited/Unobtainable: No Constitutional: Reports: no symptoms Respiratory: Reports: no symptoms Cardiovascular: Reports: no symptoms Psychiatric: Reports: depression Musculoskeletal: Reports: pain, other - in left shoulder Allergies: Coded Allergies: ASPIRIN (Unverified Allergy, Unknown, 01/16/20) IODINE (Verified Allergy, Unknown, 01/07/20) Uncoded Allergies: CONTRAST DYE (Allergy, Unknown, 01/07/20) NSAID (Allergy, Unknown, 04/24/20) Objective Last 24 Hour Vital Signs Date Time Temp Pulse Resp B/P (MAP) Pulse Ox O2 Delivery O2 Flow Rate FiO2 06/03/20 13:28 155/72 06/03/20 12:00 98.1 78 19 155/72 (99) 97 06/03/20 11:44 74 18 126/68 97 06/03/20 11:14 74 18 135/68 97 06/03/20 09:00 Room Air 06/03/20 08:30 74 118/54 06/03/20 08:00 97.5 74 18 118/54 (75) 97 06/03/20 06:03 129/67 06/03/20 04:00 98.7 78 20 129/67 (87) 95 06/03/20 03:22 67 19 129/67 96 06/03/20 00:00 98.1 75 20 143/62 (89) 95 06/02/20 23:05 141/75 06/02/20 21:00 Room Air 06/02/20 20:00 98.1 91 18 141/75 (97) 95 06/02/20 18:00 76 153/77 (102) 06/02/20 16:29 98.1 75 20 138/76 (96) 97 06/02/20 16:24 98.4 74 19 136/78 (97) 96 06/02/20 16:07 72 18 Height (Feet): 5 Height (Inches): 5.00 Weight (Pounds): 160 General Appearance: no acute distress HEENT: mucous membranes moist Respiratory/Chest: lungs clear Cardiovascular: normal rate, other - Left IJ Yomi's catheter Abdomen: soft, non tender Extremities: no edema Neurologic/Psychiatric: alert, responsive Microbiology Date/Time Source Procedure Growth Status 06/01/20 12:10 Blood Blood Culture - Preliminary NO GROWTH AFTER 24 HOURS Resulted 06/01/20 12:00 Blood Blood Culture - Preliminary Resulted Current Medications Medications (Trade) Dose Ordered Sig/Rochelle Route PRN Reason Start Time Stop Time Status Last Admin Dose Admin Acetaminophen (Tylenol) 650 mg Q6H PRN ORAL Temp >100.5 05/27/20 18:00 06/26/20 17:59 05/29/20 22:27 Acetaminophen/ Hydrocodone Bitart ([place] ) 1 tab Q4H PRN ORAL Moderate Pain (4-6) 05/30/20 12:00 06/06/20 11:59 06/01/20 04:17 Amlodipine Besylate (Norvasc) 10 mg DAILY ORAL 05/24/20 16:00 06/23/20 15:59 06/03/20 08:30 Cefepime HCl 1 gm/ Dextrose 55 ml @ 110 mls/hr Q24H IVPB 05/31/20 13:00 06/07/20 12:59 06/03/20 12:06 Diphenhydramine HCl (Benadryl) 25 mg Q6H PRN ORAL Itching 05/25/20 08:30 06/24/20 08:29 06/02/20 23:05 Docusate Sodium (Colace) 100 mg TID ORAL 05/25/20 13:00 06/23/20 17:59 06/03/20 12:06 Epoetin Jose (Epoetin Jose(ESRD on dialysis)) 10,000 unit FRI-FRI-FRI SUBQ 05/26/20 21:00 08/24/20 20:59 06/02/20 20:54 Heparin Sodium (Porcine) (Heparin 5000 units/ml) 5,000 units EVERY 12 HOURS SUBQ 05/24/20 21:00 07/08/20 20:59 06/03/20 08:32 Hydralazine HCl (Apresoline) 25 mg Q6H PRN ORAL For High Blood Pressure 05/24/20 16:00 08/22/20 15:59 05/31/20 01:50 Hydralazine HCl (Apresoline) 75 mg EVERY 8 HOURS ORAL 05/31/20 14:00 08/29/20 13:59 06/03/20 13:28 Hydromorphone HCl (Dilaudid) 0.5 mg Q4H PRN IVP Moderate Pain (Pain Scale 4-6) 05/28/20 08:00 06/04/20 07:59 06/03/20 03:23 Hydroxyzine HCl (Atarax) 25 mg Q8H ORAL 05/27/20 20:30 06/26/20 20:29 06/03/20 12:06 Levothyroxine Sodium (Synthroid) 75 mcg Q24H ORAL 05/27/20 06:30 06/26/20 06:29 06/03/20 06:02 Lidocaine HCl (Xylocaine Viscous) 15 ml Q4H PRN ORAL For Pain 05/31/20 18:15 08/29/20 18:14 Lorazepam (Ativan) 1 mg Q6H PRN ORAL For Anxiety 05/30/20 10:00 06/06/20 09:59 06/03/20 11:14 Nitroglycerin (Ntg) 0.4 mg Q5M PRN SL Prn Chest Pain 05/24/20 10:45 06/23/20 10:44 Ondansetron HCl (Zofran) 4 mg Q6H PRN IVP Nausea & Vomiting 05/24/20 16:00 06/23/20 15:59 Pantoprazole (Protonix) 40 mg BID ORAL 05/29/20 18:00 06/25/20 08:59 06/03/20 08:30 Patient Own Medication (Patient's Own Med) 1 ea BID ORAL 05/30/20 18:00 06/29/20 17:59 06/03/20 08:31 Patient Own Medication (Patient's Own Med) 1 ea BID ORAL 05/30/20 18:00 06/29/20 17:59 06/03/20 08:31 Patient Own Medication (Patient's Own Med) 1 ea DAILY ORAL 05/31/20 09:00 06/30/20 08:59 06/03/20 08:31 Sodium Chloride 1,000 ml @ 500 mls/hr Q2H PRN IVLG sbp<90 during hd 05/25/20 17:30 06/24/20 17:29 Armando Brown MD Jun 03, 2020 15:24
[2020-06-03 16:00] VITALS: BP 134/66
[2020-06-03 20:00] VITALS: BP 132/63
--- NOTE | 2020-06-03 20:01 | Nephrology Progress Note ---
Assessment/Plan Problem List: (1) ESRD (end stage renal disease) on dialysis (2) HIV disease (3) HCV antibody positive (4) Hypertensive urgency (5) Substance abuse Assessment Patient admitted with hypertensive urgency (1) ESRD (end stage renal disease) on dialysis (2) HIV disease (3) Cocaine abuse (4) Noncompliance (5) Anemia of chronic kidney disease Plan June 03: Patient had dialysis yesterday. Has a nontunneled dialysis access. Surveillance blood cultures pending. Will do dialysis tomorrow June 04. Will check lab tomorrow. June 02: Patient continues to have persistent bacteremia. Due for nontunneled dialysis catheter today. Will be dialyzed after insertion of the catheter today as her last dialysis was 3 days ago. Continue per consultants. June 01: Dialysis catheter removed May 31. Labs reviewed. Discussed with RN. Will arrange for placement of a nontunneled dialysis catheter tomorrow. We will continue to order surveillance blood cultures. When blood cultures are negative will attempt to put a tunneled catheter prior to disch arge. Continue per orders. May 31: Status quo. Dialyzed yesterday. I are will remove the permacath today. Tip will be sent for culture. Surveillance blood culture ordered for today again. CRP lower today. Continue to monitor electrolytes and renal parameters. May 30: Low-grade fever persists. Due for dialysis today. As per ID recommendation will discontinue the dialysis catheter which may be the source of fever and bacteremia. Discussed with RN. Orders given. Will check labs tomorrow. May 29: Patient remains febrile. Nontoxic. Dialyzed yesterday. Next dialysis tomorrow. Preliminary blood cultures positive for gram-positive's. Most likely source dialysis catheter. CRP jumped up to 14. Continue per ID advice. Keep the blood pressure and blood sugar in check. Will obtain repeated blood culture tomorrow during dialysis. Patient on vancomycin. May 28: Patient febrile. Cultures taken during dialysis. Vancomycin 1 dose given. Will check labs tomorrow. A temporary catheter may need to be discontinued and replaced if blood cultures positive. Continue per consultants. May 27: Patient in mild distress due to itching and generalized pain. Was dialyzed yesterday. Will dialyze again tomorrow. Will start on Atarax [id number] for itching. Labs reviewed, medications reviewed and adjusted. B12 subcu and to p.o. Synthroid ordered Patient was dialyzed 05/24, will dialyze today Will adjust blood pressure medication Per orders 2. Dr. Townsend to call urologist the catheter again yet to talk to the person was put in the disc note thank you very much by Subjective ROS Limited/Unobtainable: No Objective Objective Last 24 Hour Vital Signs Date Time Temp Pulse Resp B/P (MAP) Pulse Ox O2 Delivery O2 Flow Rate FiO2 06/03/20 16:00 98.0 79 20 134/66 (88) 96 06/03/20 13:28 155/72 06/03/20 12:00 98.1 78 19 155/72 (99) 97 06/03/20 11:44 74 18 126/68 97 06/03/20 11:14 74 18 135/68 97 06/03/20 09:00 Room Air 06/03/20 08:30 74 118/54 06/03/20 08:00 97.5 74 18 118/54 (75) 97 06/03/20 06:03 129/67 06/03/20 04:00 98.7 78 20 129/67 (87) 95 06/03/20 03:22 67 19 129/67 96 06/03/20 00:00 98.1 75 20 143/62 (89) 95 06/02/20 23:05 141/75 06/02/20 21:00 Room Air Intake and Output 06/02/20 06/03/20 19:00 07:00 Intake Total 555 ml Balance 555 ml Intake Oral 500 ml IV Total 55 ml # Voids 1 1 # Bowel Movements 1 1 No can panel done today Height (Feet): 5 Height (Inches): 5.00 Weight (Pounds): 160 General Appearance: no apparent distress Objective No change Jack Pryor MD Jun 03, 2020 20:01
[2020-06-04] VITALS: BP 150/66
[2020-06-04 04:00] VITALS: BP 132/65
[2020-06-04] MEDS: HydrOXYzine tab 25mg tab ORAL SCH ×3 (04:03→21:30)
[2020-06-04] MEDS: HYDROmorphone 1mg/ml Carpuject IVP PRN ×5 (04:04→22:41)
[2020-06-04] MEDS: HydrALAZINE 25mg tab ORAL SCH ×3 (05:24→21:29)
[2020-06-04 06:51] LABS: BASOPHILS % (AUTO) 0.9 % (0.0-2.0); EOSINOPHILS % (AUTO) 4.8 % (0.0-3.0); HEMATOCRIT 28.4 % (37.0-47.0); HEMOGLOBIN 9.1 G/DL (12.0-16.0); MEAN CORPUSCULAR VOLUME 93 FL (80-99); MONOCYTES % (AUTO) 11.2 % (1.0-10.0); NEUTROPHILS % (AUTO) 64.2 % (45.0-75.0); PLATELET COUNT 261 K/UL (150-450); RED BLOOD COUNT 3.06 M/UL (4.20-5.40); RED CELL DISTRIBUTION WIDTH 16.4 % (11.6-14.8); WHITE BLOOD COUNT 4.7 K/UL (4.8-10.8)
[2020-06-04 07:34] LABS: ALANINE AMINOTRANSFERASE < 6 U/L (12-78); ALBUMIN 2.6 G/DL (3.4-5.0); ALBUMIN/GLOBULIN RATIO 0.4 (1.0-2.7); ALKALINE PHOSPHATASE 71 U/L (46-116); ANION GAP 8 mmol/L (5-15); ASPARTATE AMINO TRANSFERASE 26 U/L (15-37); BILIRUBIN,TOTAL 0.4 MG/DL (0.2-1.0); BLOOD UREA NITROGEN 23 mg/dL (7-18); CARBON DIOXIDE 30 MMOL/L (21-32); CHLORIDE 97 MMOL/L (98-107); CREATININE 7.5 MG/DL (0.55-1.30); PHOSPHORUS 2.4 MG/DL (2.5-4.9); POTASSIUM 3.7 MMOL/L (3.5-5.1); SODIUM 135 MMOL/L (136-145)
--- NOTE | 2020-06-04 07:39 | General Progress Note ---
Subjective ROS Limited/Unobtainable: No Constitutional: Reports: malaise, weakness HEENT: Reports: no symptoms Cardiovascular: Reports: no symptoms Respiratory: Reports: no symptoms Gastrointestinal/Abdominal: Reports: no symptoms Genitourinary: Reports: no symptoms Neurologic/Psychiatric: Reports: anxiety Endocrine: Reports: no symptoms Hematologic/Lymphatic: Reports: no symptoms Allergies: Coded Allergies: ASPIRIN (Unverified Allergy, Unknown, 01/16/20) IODINE (Verified Allergy, Unknown, 01/07/20) Uncoded Allergies: CONTRAST DYE (Allergy, Unknown, 01/07/20) NSAID (Allergy, Unknown, 04/24/20) All Systems: reviewed and negative except above Subjective resting. no events. no fever or chills.pain better controlled. intermittent anxiety and pain. on iv pain rx meds reviewed. no fevers. renal and ID noted. s/p lazaro cath and HD, tolerated well thinks theres "something wrong" with the catheter Objective Last 24 Hour Vital Signs Date Time Temp Pulse Resp B/P (MAP) Pulse Ox O2 Delivery O2 Flow Rate FiO2 06/04/20 05:24 132/65 06/04/20 04:00 98.4 77 18 132/65 (87) 96 06/04/20 00:00 97.8 81 18 150/66 (94) 95 06/03/20 21:00 Room Air 06/03/20 21:00 132/63 06/03/20 20:00 98.0 82 19 132/63 (86) 94 06/03/20 16:00 98.0 79 20 134/66 (88) 96 06/03/20 13:28 155/72 06/03/20 12:00 98.1 78 19 155/72 (99) 97 06/03/20 11:44 74 18 126/68 97 06/03/20 11:14 74 18 135/68 97 06/03/20 09:00 Room Air 06/03/20 08:30 74 118/54 06/03/20 08:00 97.5 74 18 118/54 (75) 97 Intake and Output 06/03/20 06/04/20 19:00 07:00 Intake Total 960 ml 110 ml Balance 960 ml 110 ml Intake Oral 960 ml 110 ml # Voids 2 Laboratory Tests 06/04/20 05:00: White Blood Count 4.7L, Red Blood Count 3.06L, Hemoglobin 9.1L, Hematocrit 28.4L , Mean Corpuscular Volume 93, Mean Corpuscular Hemoglobin 29.7, Mean Corpuscular Hemoglobin Concent 32.0, Red Cell Distribution Width 16.4H, Platelet Count 261, Mean Platelet Volume 5.9L, Neutrophils (%) (Auto) 64.2, Lymphocytes (%) (Auto) 19.0L, Monocytes (%) (Auto) 11.2H, Eosinophils (%) (Auto) 4.8H, Basophils (%) (Auto) 0.9, Sodium Level 135L, Potassium Level 3.7, Chloride Level 97L, Carbon Dioxide Level 30, Anion Gap 8, Blood Urea Nitrogen 23H, Creatinine 7.5H, Estimat Glomerular Filtration Rate 6.5, Glucose Level 97, Calcium Level 8.0L, Phosphorus Level 2.4L, Magnesium Level 2.4, Total Bilirubin 0.4, Aspartate Amino Transf (AST/SGOT) 26, Alanine Aminotransferase (ALT/SGPT) < 6L, Alkaline Phosphatase 71, C-Reactive Protein, Quantitative 2.0H, Total Protein 8.4H, Albumin 2.6L, Gl obulin 5.8, Albumin/Globulin Ratio 0.4L Height (Feet): 5 Height (Inches): 5.00 Weight (Pounds): 160 Objective General Appearance: WD/WN, alert, mild distress, agitated EENT: normal ENT inspection Neck: non-tender, normal alignment, supple Cardiovascular: normal peripheral pulses, normal rate, regular rhythm Respiratory/Chest: chest wall non-tender, lungs clear, normal breath sounds, no respiratory distress Abdomen: normal bowel sounds, non tender, soft, no organomegaly Edema: no edema noted Arm (L), no edema noted Arm (R) Neurologic: panama hat blocker II-XII grossly normal, alert, responsive Skin: other - ?abrasion between buttocks Assessment/Plan Problem List: (1) Hypertensive urgency ICD Codes: I16.0 - Hypertensive urgency SNOMED: 334029806 (2) HIV disease ICD Codes: B20 - Human immunodeficiency virus [HIV] disease SNOMED: 36391545 (3) CHF (congestive heart failure), NYHA class II ICD Codes: I50.9 - Heart failure, unspecified SNOMED: 227653933, 970149811 (4) ESRD (end stage renal disease) on dialysis ICD Codes: N18.6 - End stage renal disease; Z99.2 - Dependence on renal dialysis SNOMED: 305385345 (5) Substance abuse ICD Codes: F19.10 - Other psychoactive substance abuse, uncomplicated SNOMED: 47252064 Status: stable, progressing Assessment/Plan: iv abx per ID HD per renal wound care tylenol for fever dvt/stress ulcer prophylaxis pain rx and anxiolytics as needed. +hx of opioid use do. HD per renal perm cath when cleared by ID consider vascular eval for AVF cont pain rx and anxiolytics dvt/stress ulcer prophylaxis out of bed Michael Peralta MD Jun 04, 2020 07:39
[2020-06-04 08:00] VITALS: BP 146/70
[2020-06-04] MEDS: Docusate 100mg cap ORAL SCH ×3 (08:26→17:18)
[2020-06-04] MEDS: Heparin 5000 units/ml inj SUBQ SCH ×2 (08:27→21:34)
[2020-06-04] MEDS: Patient's Own Med - Tivicay 50mg ORAL SCH (08:27)
[2020-06-04] MEDS: Patient's Own Med - Ritonavir 100mg ORAL SCH ×2 (08:27→17:18)
[2020-06-04] MEDS: LORazepam 1mg tab ORAL PRN ×2 (10:49→21:29)
[2020-06-04 12:00] VITALS: BP 169/78
--- NOTE | 2020-06-04 12:08 | Nephrology Progress Note ---
Assessment/Plan Problem List: (1) ESRD (end stage renal disease) on dialysis (2) HIV disease (3) HCV antibody positive (4) Hypertensive urgency (5) Substance abuse Assessment Patient admitted with hypertensive urgency (1) ESRD (end stage renal disease) on dialysis (2) HIV disease (3) Cocaine abuse (4) Noncompliance (5) Anemia of chronic kidney disease Plan June 04: Due for dialysis today. We will continue to follow blood cultures. Antibiotic for bacteremia in process. Will place tunneled catheter when patient is culture negative for 48 hours. CRP lowering. June 03: Patient had dialysis yesterday. Has a nontunneled dialysis access. Surveillance blood cultures pending. Will do dialysis tomorrow June 04. Will check lab tomorrow. June 02: Patient continues to have persistent bacteremia. Due for nontunneled dialysis catheter today. Will be dialyzed after insertion of the catheter today as her last dialysis was 3 days ago. Continue per consultants. June 01: Dialysis catheter removed May 31. Labs reviewed. Discussed with RN. Will arrange for placement of a nontunneled dialysis catheter tomorrow. We will continue to order surveillance blood cultures. When blood cultures are negative will attempt to put a tunneled catheter prior to discharge. Continue per orders. May 31: Status quo. Dialyzed yesterday. I are will remove the permacath today. Tip will be sent for culture. Surveillance blood culture ordered for today again. CRP lower today. Continue to monitor electrolytes and renal parameters. May 30: Low-grade fever persists. Due for dialysis today. As per ID recommendation will discontinue the dialysis catheter which may be the source of fever and bacteremia. Discussed with RN. Orders given. Will check labs tomorrow. May 29: Patient remains febrile. Nontoxic. Dialyzed yesterday. Next dialysis tomorrow. Preliminary blood cultures positive for gram-positive's. M ost likely source dialysis catheter. CRP jumped up to 14. Continue per ID advice. Keep the blood pressure and blood sugar in check. Will obtain repeated blood culture tomorrow during dialysis. Patient on vancomycin. May 28: Patient febrile. Cultures taken during dialysis. Vancomycin 1 dose given. Will check labs tomorrow. A temporary catheter may need to be discontinued and replaced if blood cultures positive. Continue per consultants. May 27: Patient in mild distress due to itching and generalized pain. Was dialyzed yesterday. Will dialyze again tomorrow. Will start on Atarax [id number] for itching. Labs reviewed, medications reviewed and adjusted. B12 subcu and to p.o. Synthroid ordered Patient was dialyzed 05/24, will dialyze today Will adjust blood pressure medication Per orders 2. Dr. Townsend to call urologist the catheter again yet to talk to the person was put in the disc note thank you very much by Subjective ROS Limited/Unobtainable: No Constitutional: Reports: malaise, weakness Objective Objective Last 24 Hour Vital Signs Date Time Temp Pulse Resp B/P (MAP) Pulse Ox O2 Delivery O2 Flow Rate FiO2 06/04/20 11:19 75 18 138/67 95 06/04/20 10:49 75 18 149/79 95 06/04/20 09:00 Room Air 06/04/20 08:28 79 146/70 06/04/20 08:00 98.4 79 18 146/70 (95) 95 06/04/20 05:24 132/65 06/04/20 04:00 98.4 77 18 132/65 (87) 96 06/04/20 00:00 97.8 81 18 150/66 (94) 95 06/03/20 21:00 Room Air 06/03/20 21:00 132/63 06/03/20 20:00 98.0 82 19 132/63 (86) 94 06/03/20 16:00 98.0 79 20 134/66 (88) 96 06/03/20 13:28 155/72 Intake and Output 06/03/20 06/04/20 19:00 07:00 Intake Total 960 ml 110 ml Balance 960 ml 110 ml Intake Oral 960 ml 110 ml # Voids 2 Current Medications Medications (Trade) Dose Ordered Sig/Rochelle Route PRN Reason Start Time Stop Time Status Last Admin Dose Admin Acetaminophen (Tylenol) 650 mg Q6H PRN ORAL Temp >100.5 05/27/20 18:00 06/26/20 17:59 05/29/20 22:27 Acetaminophen/ Hydrocodone Bitart ([place] 10/325) 1 tab Q4H PRN ORAL Moderate Pain (4-6) 05/30/20 12:00 06/06/20 11:59 06/01/20 04:17 Amlodipine Besylate (Norvasc) 10 mg DAILY ORAL 05/24/20 16:00 06/23/20 15:59 06/03/20 08:30 Cefepime HCl 1 gm/ Dextrose 55 ml @ 110 mls/hr Q24H IVPB 05/31/20 13:00 06/07/20 12:59 06/03/20 12:06 Diphenhydramine HCl (Benadryl) 25 mg Q6H PRN ORAL Itching 05/25/20 08:30 06/24/20 08:29 06/03/20 20:47 Docusate Sodium (Colace) 100 mg TID ORAL 05/25/20 13:00 06/23/20 17:59 06/04/20 08:26 Epoetin Jose (Epoetin Jose(ESRD on dialysis)) 10,000 unit FRI- SUBQ 05/26/20 21:00 08/24/20 20:59 06/02/20 20:54 Heparin Sodium (Porcine) (Heparin 5000 units/ml) 5,000 units EVERY 12 HOURS SUBQ 05/24/20 21:00 07/08/20 20:59 06/04/20 08:27 Hydralazine HCl (Apresoline) 25 mg Q6H PRN ORAL For High Blood Pressure 05/24/20 16:00 08/22/20 15:59 05/31/20 01:50 Hydralazine HCl (Apresoline) 75 mg EVERY 8 HOURS ORAL 05/31/20 14:00 08/29/20 13:59 06/04/20 05:24 Hydromorphone HCl (Dilaudid) 0.5 mg Q4H PRN IVP Severe Pain (Pain Scale 7-10) 06/03/20 16:30 06/10/20 16:29 06/04/20 08:30 Hydroxyzine HCl (Atarax) 25 mg Q8H ORAL 05/27/20 20:30 06/26/20 20:29 06/04/20 04:03 Levothyroxine Sodium (Synthroid) 75 mcg Q24H ORAL 05/27/20 06:30 06/26/20 06:29 06/04/20 05:24 Lidocaine HCl (Xylocaine Viscous) 15 ml Q4H PRN ORAL For Pain 05/31/20 18:15 08/29/20 18:14 Lorazepam (Ativan) 1 mg Q6H PRN ORAL For Anxiety 05/30/20 10:00 06/06/20 09:59 06/04/20 10:49 Nitroglycerin (Ntg) 0.4 mg Q5M PRN SL Prn Chest Pain 05/24/20 10:45 06/23/20 10:44 Ondansetron HCl (Zofran) 4 mg Q6H PRN IVP Nausea & Vomiting 05/24/20 16:00 06/23/20 15:59 Pantoprazole (Protonix) 40 mg BID ORAL 05/29/20 18:00 06/25/20 08:59 06/04/20 08:26 Patient Own Medication (Patient's Own Med) 1 ea BID ORAL 05/30/20 18:00 06/29/20 17:59 06/04/20 08:27 Patient Own Medication (Patient's Own Med) 1 ea BID ORAL 05/30/20 18:00 06/29/20 17:59 06/04/20 08:27 Patient Own Medication (Patient's Own Med) 1 ea DAILY ORAL 05/31/20 09:00 06/30/20 08:59 06/04/20 08:27 Sodium Chloride 1,000 ml @ 500 mls/hr Q2H PRN IVLG sbp<90 during hd 05/25/20 17:30 06/24/20 17:29 Laboratory Tests 06/04/20 05:00: White Blood Count 4.7L, Red Blood Count 3.06L, Hemoglobin 9.1L, Hematocrit 28.4L , Mean Corpuscular Volume 93, Mean Corpuscular Hemoglobin 29.7, Mean Corpuscular Hemoglobin Concent 32.0, Red Cell Distribution Width 16.4H, Platelet Count 261, Mean Platelet Volume 5.9L, Neutrophils (%) (Auto) 64.2, Lymphocytes (%) (Auto) 19.0L, Monocytes (%) (Auto) 11.2H, Eosinophils (%) (Auto) 4.8H, Basophils (%) (Auto) 0.9, Sodium Level 135L, Potassium Level 3.7, Chloride Level 97L, Carbon Dioxide Level 30, Anion Gap 8, Blood Urea Nitrogen 23H, Creatinine 7.5H, Estimat Glomerular Filtration Rate 6.5, Glucose Level 97, Calcium Level 8.0L, Phosphorus Level 2.4L, Magnesium Level 2.4, Total Bilirubin 0.4, Aspartate Amino Transf (AST/SGOT) 26, Alanine Aminotransferase (ALT/SGPT) < 6L, Alkaline Phosphatase 71, C-Reactive Protein, Quantitative 2.0H, Total Protein 8.4H, Albumin 2.6L, Globulin 5.8, Albumin/Globulin Ratio 0.4L Height (Feet): 5 Height (Inches): 5.00 Weight (Pounds): 160 General Appearance: no apparent distress Cardiovascular: normal rate Respiratory/Chest: decreased breath sounds Abdomen: soft Objective No change Jack Pryor MD Jun 04, 2020 12:08
[2020-06-04] MEDS: Cefepime HCl 1 GM in D5W 55 ML IVPB SCH (12:27)
[2020-06-04 16:00] VITALS: BP 141/76
[2020-06-04 20:00] VITALS: BP 148/70
[2020-06-05] VITALS: BP 144/79
[2020-06-05] MEDS: LORazepam 1mg tab ORAL PRN ×2 (03:36→17:08)
[2020-06-05] MEDS: HYDROmorphone 1mg/ml Carpuject IVP PRN ×5 (03:37→21:54)
[2020-06-05 04:00] VITALS: BP 132/86
[2020-06-05] MEDS: HydrOXYzine tab 25mg tab ORAL SCH ×3 (05:24→20:42)
[2020-06-05] MEDS: HydrALAZINE 25mg tab ORAL SCH ×3 (05:24→21:53)
[2020-06-05 07:15] LABS: BASOPHILS % (AUTO) 1.3 % (0.0-2.0); EOSINOPHILS % (AUTO) 4.8 % (0.0-3.0); HEMATOCRIT 30.5 % (37.0-47.0); HEMOGLOBIN 9.7 G/DL (12.0-16.0); LYMPHOCYTES % (AUTO) 19.8 % (20.0-45.0); MEAN CORPUSCULAR VOLUME 92 FL (80-99); NEUTROPHILS % (AUTO) 63.1 % (45.0-75.0); PLATELET COUNT 256 K/UL (150-450); RED CELL DISTRIBUTION WIDTH 17.1 % (11.6-14.8); WHITE BLOOD COUNT 4.2 K/UL (4.8-10.8)
--- NOTE | 2020-06-05 07:32 | General Progress Note ---
Subjective ROS Limited/Unobtainable: No Constitutional: Reports: malaise, weakness HEENT: Reports: no symptoms Cardiovascular: Reports: no symptoms Respiratory: Reports: no symptoms Gastrointestinal/Abdominal: Reports: no symptoms Genitourinary: Reports: no symptoms Neurologic/Psychiatric: Reports: anxiety, depressed Endocrine: Reports: no symptoms Hematologic/Lymphatic: Reports: anemia Allergies: Coded Allergies: ASPIRIN (Unverified Allergy, Unknown, 01/16/20) IODINE (Verified Allergy, Unknown, 01/07/20) Uncoded Allergies: CONTRAST DYE (Allergy, Unknown, 01/07/20) NSAID (Allergy, Unknown, 04/24/20) All Systems: reviewed and negative except above Subjective no new complaints. stable. continued complaints of pain- appears comfortable. sleeping. no fever or chills. no sob. tolerating HD thru lazaro cath. remains on iv abx. no vomiting. Objective Last 24 Hour Vital Signs Date Time Temp Pulse Resp B/P (MAP) Pulse Ox O2 Delivery O2 Flow Rate FiO2 06/05/20 05:24 156/78 06/05/20 04:00 98.0 86 18 132/86 (101) 95 06/05/20 03:36 92 18 134/82 96 06/05/20 00:00 98.4 98 18 144/79 (100) 95 06/04/20 21:29 148/70 06/04/20 21:00 Room Air 06/04/20 20:00 98.2 81 18 148/70 (96) 95 06/04/20 16:00 97.5 61 18 141/76 (97) 98 06/04/20 13:20 169/78 06/04/20 12:00 98.1 68 19 169/78 (108) 95 06/04/20 11:19 75 18 138/67 95 06/04/20 10:49 75 18 149/79 95 06/04/20 09:00 Room Air 06/04/20 08:28 79 146/70 06/04/20 08:00 98.4 79 18 146/70 (95) 95 Intake and Output 06/04/20 06/05/20 19:00 07:00 Intake Total 165 ml 130 ml Output Total 2000 ml Balance -1835 ml 130 ml Intake Oral 110 ml 130 ml IV Total 55 ml Hemodialysis UF 2000 ml # Voids 1 # Bowel Movements 1 2 Laboratory Tests 06/05/20 06:55: White Blood Count 4.2L, Red Blood Count 3.30L, Hemoglobin 9.7L, Hematocrit 30.5L , Mean Corpuscular Volume 92, Mean Corpuscular Hemoglobin 29.4, Mean Corpuscular Hemoglobin Concent 31.8L, Red Cell Distribution Width 17.1H, Platelet Count 256, Mean Platelet Volume 5.6L, Neutrophils (%) (Auto) 63.1, Lymphocytes (%) (Auto) 19.8L, Monocytes (%) (Auto) 11.0H, Eosinophils (%) (Auto) 4.8H, Basophils (%) (Auto) 1.3, Sodium Level [Pending], Potassium Level [Pending], Chloride Level [Pending], Carbon Dioxide Level [Pending], Blood Urea Nitrogen [Pending], Creatinine [Pending], Estimat Glomerular Filtration Rate [Pending], Glucose Level [Pending], Calcium Level [Pending], Phosphorus Level [Pending], Magnesium Level [Pending], Total Bilirubin [Pending], Aspartate Amino Transf (AST/SGOT) [Pending], Alanine Aminotransferase (ALT/SGPT) [Pending], Alkaline Phosphatase [Pending], C-Reactive Protein, Quantitative [Pending], Pro-B-Type Natriuretic Peptide [Pending], Total Protein [Pending], Albumin [Pending], Globulin [Pending] Height (Feet): 5 Height (Inches): 5.00 Weight (Pounds): 160 Objective General Appearance: WD/WN, alert, mild distress, agitated EENT: normal ENT inspection. 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 normal, alert, responsive Skin: other - ?abrasion between buttocks Assessment/Plan Problem List: (1) Hypertensive urgency ICD Codes: I16.0 - Hypertensive urgency SNOMED: 465323064 (2) HIV disease ICD Codes: B20 - Human immunodeficiency virus [HIV] disease SNOMED: 52962898 (3) CHF (congestive heart failure), NYHA class II ICD Codes: I50.9 - Heart failure, unspecified SNOMED: 736299710, 243066601 (4) ESRD (end stage renal disease) on dialysis ICD Codes: N18.6 - End stage renal disease; Z99.2 - Dependence on renal dialysis SNOMED: 994778039 (5) Substance abuse ICD Codes: F19.10 - Other psychoactive substance abuse, uncomplicated SNOMED: 14836354 Status: stable, progressing Assessment/Plan: iv abx per ID HD per renal echo wound care tylenol for fever dvt/stress ulcer prophylaxis pain rx and anxiolytics as needed. +hx of opioid use do. HD per renal perm cath when cleared by ID consider vascular eval for AVF cont pain rx and anxiolytics dvt/stress ulcer prophylaxis out of bed Michael Peralta MD Jun 05, 2020 07:32
[2020-06-05 07:45] LABS: ALANINE AMINOTRANSFERASE 7 U/L (12-78); ALBUMIN 2.8 G/DL (3.4-5.0); ALBUMIN/GLOBULIN RATIO 0.4 (1.0-2.7); ALKALINE PHOSPHATASE 82 U/L (46-116); ANION GAP 6 mmol/L (5-15); ASPARTATE AMINO TRANSFERASE 41 U/L (15-37); BILIRUBIN,TOTAL 0.4 MG/DL (0.2-1.0); BLOOD UREA NITROGEN 14 mg/dL (7-18); CALCIUM 8.4 MG/DL (8.5-10.1); CARBON DIOXIDE 32 MMOL/L (21-32); CHLORIDE 98 MMOL/L (98-107); CREATININE 5.9 MG/DL (0.55-1.30); PHOSPHORUS 2.1 MG/DL (2.5-4.9); POTASSIUM 3.7 MMOL/L (3.5-5.1); SODIUM 136 MMOL/L (136-145)
[2020-06-05 07:54] VITALS: BP 150/72
[2020-06-05] MEDS: Docusate 100mg cap ORAL SCH ×3 (08:41→17:03)
[2020-06-05] MEDS: Heparin 5000 units/ml inj SUBQ SCH ×2 (08:42→20:48)
[2020-06-05] MEDS: Patient's Own Med - Tivicay 50mg ORAL SCH (08:43)
[2020-06-05] MEDS: Patient's Own Med - Ritonavir 100mg ORAL SCH ×2 (08:44→17:02)
[2020-06-05 12:00] VITALS: BP 146/70
--- NOTE | 2020-06-05 12:05 | Nephrology Progress Note ---
Assessment/Plan Problem List: (1) ESRD (end stage renal disease) on dialysis (2) HIV disease (3) HCV antibody positive (4) Hypertensive urgency (5) Substance abuse Assessment Patient admitted with hypertensive urgency (1) ESRD (end stage renal disease) on dialysis (2) HIV disease (3) Cocaine abuse (4) Noncompliance (5) Anemia of chronic kidney disease Plan June 05: Dialyzed yesterday. Due for dialysis tomorrow. Surveillance blood cultures are done. When negative for 48 hours, will proceed with placement of tunneled catheter and discharge. June 04: Due for dialysis today. We will continue to follow blood cultures. Antibiotic for bacteremia in process. Will place tunneled catheter when patient is culture negative for 48 hours. CRP lowering. June 03: Patient had dialysis yesterday. Has a nontunneled dialysis access. Surveillance blood cultures pending. Will do dialysis tomorrow June 04. Will check lab tomorrow. June 02: Patient continues to have persistent bacteremia. Due for nontunneled dialysis catheter today. Will be dialyzed after insertion of the catheter today as her last dialysis was 3 days ago. Continue per consultants. June 01: Dialysis catheter removed May 31. Labs reviewed. Discussed with RN. Will arrange for placement of a nontunneled dialysis catheter tomorr ow. We will continue to order surveillance blood cultures. When blood cultures are negative will attempt to put a tunneled catheter prior to discharge. Continue per orders. May 31: Status quo. Dialyzed yesterday. I are will remove the permacath to day. Tip will be sent for culture. Surveillance blood culture ordered for today again. CRP lower today. Continue to monitor electrolytes and renal parameters. May 30: Low-grade fever persists. Due for dialysis today. As per ID recommendation will discontinue the dialysis catheter which may be the source of fever and bacteremia. Discussed with RN. Orders given. Will check labs tomorrow. May 29: Patient remains febrile. Nontoxic. Dialyzed yesterday. Next dialysis tomorrow. Preliminary blood cultures positive for gram-positive's. Most likely source dialysis catheter. CRP jumped up to 14. Continue per ID advice. Keep the blood pressure and blood sugar in check. Will obtain repeated blood culture tomorrow during dialysis. Patient on vancomycin. May 28: Patient febrile. Cultures taken during dialysis. Vancomycin 1 dose given. Will check labs tomorrow. A temporary catheter may need to be discontinued and replaced if blood cultures positive. Continue per consultants. May 27: Patient in mild distress due to itching and generalized pain. Was dialyzed yesterday. Will dialyze again tomorrow. Will start on Atarax [id number] for itching. Labs reviewed, medications reviewed and adjusted. B12 subcu and to p.o. Synthroid ordered Patient was dialyzed 05/24, will dialyze today Will adjust blood pressure medication Per orders 2. Dr. Townsend to call urologist the catheter again yet to talk to the person was put in the disc note thank you very much by Subjective ROS Limited/Unobtainable: No Constitutional: Reports: malaise Objective Objective Last 24 Hour Vital Signs Date Time Temp Pulse Resp B/P (MAP) Pulse Ox O2 Delivery O2 Flow Rate FiO2 06/05/20 08:42 78 150/72 06/05/20 08:40 Room Air 06/05/20 07:54 97.9 78 20 150/72 (98) 98 06/05/20 05:24 156/78 06/05/20 04:00 98.0 86 18 132/86 (101) 95 06/05/20 03:36 92 18 134/82 96 06/05/20 00:00 98.4 98 18 144/79 (100) 95 06/04/20 21:29 148/70 06/04/20 21:00 Room Air 06/04/20 20:00 98.2 81 18 148/70 (96) 95 06/04/20 16:00 97.5 61 18 141/76 (97) 98 06/04/20 13:20 169/78 Intake and Output 06/04/20 06/05/20 19:00 07:00 Intake Total 165 ml 130 ml Output Total 2000 ml Balance -1835 ml 130 ml Intake Oral 110 ml 130 ml IV Total 55 ml Hemodialysis UF 2000 ml # Voids 1 # Bowel Movements 1 2 Current Medications Medications (Trade) Dose Ordered Sig/Rochelle Route PRN Reason Start Time Stop Time Status Last Admin Dose Admin Acetaminophen (Tylenol) 650 mg Q6H PRN ORAL Temp >100.5 05/27/20 18:00 06/26/20 17:59 05/29/20 22:27 Acetaminophen/ Hydrocodone Bitart ([place] 10) 1 tab Q4H PRN ORAL Moderate Pain (4-6) 06/05/20 12:00 06/12/20 11:59 Amlodipine Besylate (Norvasc) 10 mg DAILY ORAL 05/24/20 16:00 06/23/20 15:59 06/05/20 08:42 Cefepime HCl 1 gm/ Dextrose 55 ml @ 110 mls/hr Q24H IVPB 05/31/20 13:00 06/07/20 12:59 06/04/20 12:27 Diphenhydramine HCl (Benadryl) 25 mg Q6H PRN ORAL Itching 05/25/20 08:30 06/24/20 08:29 06/05/20 03:36 Docusate Sodium (Colace) 100 mg TID ORAL 05/25/20 13:00 06/23/20 17:59 06/05/20 08:41 Epoetin Jose (Epoetin Jose(ESRD on dialysis)) 10,000 unit FRI- SUBQ 05/26/20 21:00 08/24/20 20:59 06/02/20 20:54 Heparin Sodium (Porcine) (Heparin 5000 units/ml) 5,000 units EVERY 12 HOURS SUBQ 05/24/20 21:00 07/08/20 20:59 06/05/20 08:42 Hydralazine HCl (Apresoline) 25 mg Q6H PRN ORAL For High Blood Pressure 05/24/20 16:00 08/22/20 15:59 05/31/20 01:50 Hydralazine HCl (Apresoline) 75 mg EVERY 8 HOURS ORAL 05/31/20 14:00 08/29/20 13:59 06/05/20 05:24 Hydromorphone HCl (Dilaudid) 0.5 mg Q4H PRN IVP Severe Pain (Pain Scale 7-10) 06/03/20 16:30 06/10/20 16:29 06/05/20 08:45 Hydroxyzine HCl (Atarax) 25 mg Q8H ORAL 05/27/20 20:30 06/26/20 20:29 06/05/20 05:24 Levothyroxine Sodium (Synthroid) 75 mcg Q24H ORAL 05/27/20 06:30 06/26/20 06:29 06/05/20 05:24 Lidocaine HCl (Xylocaine Viscous) 15 ml Q4H PRN ORAL For Pain 05/31/20 18:15 08/29/20 18:14 Lorazepam (Ativan) 1 mg Q6H PRN ORAL For Anxiety 06/05/20 10:00 06/12/20 09:59 Nitroglycerin (Ntg) 0.4 mg Q5M PRN SL Prn Chest Pain 05/24/20 10:45 06/23/20 10:44 Ondansetron HCl (Zofran) 4 mg Q6H PRN IVP Nausea & Vomiting 05/24/20 16:00 06/23/20 15:59 Pantoprazole (Protonix) 40 mg BID ORAL 05/29/20 18:00 06/25/20 08:59 06/05/20 08:41 Patient Own Medication (Patient's Own Med) 1 ea BID ORAL 05/30/20 18:00 06/29/20 17:59 06/05/20 08:43 Patient Own Medication (Patient's Own Med) 1 ea BID ORAL 05/30/20 18:00 06/29/20 17:59 06/05/20 08:44 Patient Own Medication (Patient's Own Med) 1 ea DAILY ORAL 05/31/20 09:00 06/30/20 08:59 06/05/20 08:43 Sodium Chloride 1,000 ml @ 500 mls/hr Q2H PRN IVLG sbp<90 during hd 05/25/20 17:30 06/24/20 17:29 Laboratory Tests 06/05/20 06:55: White Blood Count 4.2L, Red Blood Count 3.30L, Hemoglobin 9.7L, Hematocrit 30.5L , Mean Corpuscular Volume 92, Mean Corpuscular Hemoglobin 29.4, Mean Corpuscular Hemoglobin Concent 31.8L, Red Cell Distribution Width 17.1H, Platelet Count 256, Mean Platelet Volume 5.6L, Neutrophils (%) (Auto) 63.1, Lymphocytes (%) (Auto) 19.8L, Monocytes (%) (Auto) 11.0H, Eosinophils (%) (Auto) 4.8H, Basophils (%) (Auto) 1.3, Sodium Level 136, Potassium Level 3.7, Chloride Level 98, Carbon Dioxide Level 32, Anion Gap 6, Blood Urea Nitrogen 14, Creatinine 5.9H, Estimat Glomerular Filtration Rate 8.6, Glucose Level 89, Calcium Level 8.4L, Phosphorus Level 2.1L, Magnesium Level 2.3, Total Bilirubin 0.4, Aspartate Amino Transf (AST/SGOT) 41H, Alanine Aminotransferase (ALT/SGPT) 7L, Alkaline Phosphatase 82, C-Reactive Protein, Quantitative 1.5H, Pro-B-Type Natriuretic Peptide > 93060Q, Total Protein 9.1H, Albumin 2.8L, Globulin 6.3, Albumin/Globulin Ratio 0.4L Height (Feet): 5 Height (Inches): 5.00 Weight (Pounds): 160 General Appearance: no apparent distress Cardiovascular: normal rate Respiratory/Chest: decreased breath sounds Abdomen: soft Objective No change Jack Pryor MD Jun 05, 2020 12:05
[2020-06-05] MEDS ORDERED: Phospha 250 Neutral tab ORAL SCH (12:15)
--- NOTE | 2020-06-05 12:38 | Infectious Diseases Prog Note ---
Assessment/Plan Assessment/Plan A 1. Staph aureus sepsis, MSSA 2. ESRD on HD 3. HIV 4. Hypertension 5. COVID 19 negative x 2 6. E. coli & Proteus UTI 9: Catheter tip culture: proteus P 1. Change cefepime to Ancef 2. Will f/u 2 d echo Subjective ROS Limited/Unobtainable: Yes Constitutional: Denies: fever Allergies: Coded Allergies: ASPIRIN (Unverified Allergy, Unknown, 01/16/20) IODINE (Verified Allergy, Unknown, 01/07/20) Uncoded Allergies: CONTRAST DYE (Allergy, Unknown, 01/07/20) NSAID (Allergy, Unknown, 04/24/20) Objective Last 24 Hour Vital Signs Date Time Temp Pulse Resp B/P (MAP) Pulse Ox O2 Delivery O2 Flow Rate FiO2 06/05/20 12:00 98.1 87 18 146/70 (95) 98 06/05/20 08:42 78 150/72 06/05/20 08:40 Room Air 06/05/20 07:54 97.9 78 20 150/72 (98) 98 06/05/20 05:24 156/78 06/05/20 04:00 98.0 86 18 132/86 (101) 95 06/05/20 03:36 92 18 134/82 96 06/05/20 00:00 98.4 98 18 144/79 (100) 95 06/04/20 21:29 148/70 06/04/20 21:00 Room Air 06/04/20 20:00 98.2 81 18 148/70 (96) 95 06/04/20 16:00 97.5 61 18 141/76 (97) 98 06/04/20 13:20 169/78 Height (Feet): 5 Height (Inches): 5.00 Weight (Pounds): 160 General Appearance: no acute distress HEENT: mucous membranes moist Respiratory/Chest: lungs clear Cardiovascular: normal rate, other - left IJ Yomi's catheter Abdomen: soft, non tender Extremities: no edema Neurologic/Psychiatric: other - sleeping Laboratory Tests Test 06/05/20 06:55 White Blood Count 4.2 K/UL (4.8-10.8) L Red Blood Count 3.30 M/UL (4.20-5.40) L Hemoglobin 9.7 G/DL (12.0-16.0) L Hematocrit 30.5 % (37.0-47.0) L Mean Corpuscular Volume 92 FL (80-99) Mean Corpuscular Hemoglobin 29.4 PG (27.0-31.0) Mean Corpuscular Hemoglobin Concent 31.8 G/DL (32.0-36.0) L Red Cell Distribution Width 17.1 % (11.6-14.8) H Platelet Count 256 K/UL (150-450) Mean Platelet Volume 5.6 FL (6.5-10.1) L Neutrophils (%) (Auto) 63.1 % (45.0-75.0) Lymphocytes (%) (Auto) 19.8 % (20.0-45.0) L Monocytes (%) (Auto) 11.0 % (1.0-10.0) H Eosinophils (%) (Auto) 4.8 % (0.0-3.0) H Basophils (%) (Auto) 1.3 % (0.0-2.0) Sodium Level 136 MMOL/L (136-145) Potassium Level 3.7 MMOL/L (3.5-5.1) Chloride Level 98 MMOL/L (98-107) Carbon Dioxide Level 32 MMOL/L (21-32) Anion Gap 6 mmol/L (5-15) Blood Urea Nitrogen 14 mg/dL (7-18) Creatinine 5.9 MG/DL (0.55-1.30) H Estimat Glomerular Filtration Rate 8.6 mL/min (>60) Glucose Level 89 MG/DL (74-106) Calcium Level 8.4 MG/DL (8.5-10.1) L Phosphorus Level 2.1 MG/DL (2.5-4.9) L Magnesium Level 2.3 MG/DL (1.8-2.4) Total Bilirubin 0.4 MG/DL (0.2-1.0) Aspartate Amino Transf (AST/SGOT) 41 U/L (15-37) H Alanine Aminotransferase (ALT/SGPT) 7 U/L (12-78) L Alkaline Phosphatase 82 U/L (46-116) C-Reactive Protein, Quantitative 1.5 mg/dL (0.00-0.90) H Pro-B-Type Natriuretic Peptide > 82342 pg/mL (0-125) H Total Protein 9.1 G/DL (6.4-8.2) H Albumin 2.8 G/DL (3.4-5.0) L Globulin 6.3 g/dL Albumin/Globulin Ratio 0.4 (1.0-2.7) L Current Medications Medications (Trade) Dose Ordered Sig/Rochelle Route PRN Reason Start Time Stop Time Status Last Admin Dose Admin Acetaminophen (Tylenol) 650 mg Q6H PRN ORAL Temp >100.5 05/27/20 18:00 06/26/20 17:59 05/29/20 22:27 Acetaminophen/ Hydrocodone Bitart ([place] 10) 1 tab Q4H PRN ORAL Moderate Pain (4-6) 06/05/20 12:00 06/12/20 11:59 Amlodipine Besylate (Norvasc) 10 mg DAILY ORAL 05/24/20 16:00 06/23/20 15:59 06/05/20 08:42 Cefepime HCl 1 gm/ Dextrose 55 ml @ 110 mls/hr Q24H IVPB 05/31/20 13:00 06/07/20 12:59 06/04/20 12:27 Diphenhydramine HCl (Benadryl) 25 mg Q6H PRN ORAL Itching 05/25/20 08:30 06/24/20 08:29 06/05/20 03:36 Docusate Sodium (Colace) 100 mg TID ORAL 05/25/20 13:00 06/23/20 17:59 06/05/20 08:41 Epoetin Jose (Epoetin Jose(ESRD on dialysis)) 10,000 unit FRI-FRI-FRI SUBQ 05/26/20 21:00 08/24/20 20:59 06/02/20 20:54 Heparin Sodium (Porcine) (Heparin 5000 units/ml) 5,000 units EVERY 12 HOURS SUBQ 05/24/20 21:00 07/08/20 20:59 06/05/20 08:42 Hydralazine HCl (Apresoline) 25 mg Q6H PRN ORAL For High Blood Pressure 05/24/20 16:00 08/22/20 15:59 05/31/20 01:50 Hydralazine HCl (Apresoline) 75 mg EVERY 8 HOURS ORAL 05/31/20 14:00 08/29/20 13:59 06/05/20 05:24 Hydromorphone HCl (Dilaudid) 0.5 mg Q4H PRN IVP Severe Pain (Pain Scale 7-10) 06/03/20 16:30 06/10/20 16:29 06/05/20 08:45 Hydroxyzine HCl (Atarax) 25 mg Q8H ORAL 05/27/20 20:30 06/26/20 20:29 06/05/20 05:24 Levothyroxine Sodium (Synthroid) 75 mcg Q24H ORAL 05/27/20 06:30 06/26/20 06:29 06/05/20 05:24 Lidocaine HCl (Xylocaine Viscous) 15 ml Q4H PRN ORAL For Pain 05/31/20 18:15 08/29/20 18:14 Lorazepam (Ativan) 1 mg Q6H PRN ORAL For Anxiety 06/05/20 10:00 06/12/20 09:59 Nitroglycerin (Ntg) 0.4 mg Q5M PRN SL Prn Chest Pain 05/24/20 10:45 06/23/20 10:44 Ondansetron HCl (Zofran) 4 mg Q6H PRN IVP Nausea & Vomiting 05/24/20 16:00 06/23/20 15:59 Pantoprazole (Protonix) 40 mg BID ORAL 05/29/20 18:00 06/25/20 08:59 06/05/20 08:41 Patient Own Medication (Patient's Own Med) 1 ea BID ORAL 05/30/20 18:00 06/29/20 17:59 06/05/20 08:43 Patient Own Medication (Patient's Own Med) 1 ea BID ORAL 05/30/20 18:00 06/29/20 17:59 06/05/20 08:44 Patient Own Medication (Patient's Own Med) 1 ea DAILY ORAL 05/31/20 09:00 06/30/20 08:59 06/05/20 08:43 Phosphorus (Phospha 250 Neutral) 500 mg ONCE ORAL 06/05/20 12:15 06/05/20 13:30 Sodium Chloride 1,000 ml @ 500 mls/hr Q2H PRN IVLG sbp<90 during hd 05/25/20 17:30 06/24/20 17:29 Armando Brown MD Jun 05, 2020 12:38
[2020-06-05 15:46] VITALS: BP 141/88
[2020-06-05 20:00] VITALS: BP 148/71
[2020-06-05] MEDS: Epoetin Alfa-EPBX(ESRD on dialysis)10,000 unit/ml vial SUBQ SCH (20:42)
[2020-06-06] VITALS (7 sets, daily range): BP systolic 138–152; BP diastolic 66–80
--- NOTE | 2020-06-06 01:44 | Cardiology Progress Note ---
Subjective DATE OF SERVICE: Jun 05, 2020 Jame cath placed for HD on 06/02/20; prior PermCath removed. Blood cultures positive for S.aureus (MSSA). Still c/o back pain and anxiety; appears comfortable. No CP or SOB BP range stable overall, with some borderline elevations noted. Objective Last 24 Hour Vital Signs Date Time Temp Pulse Resp B/P (MAP) Pulse Ox O2 Delivery O2 Flow Rate FiO2 06/06/20 00:00 98.4 80 20 145/72 (96) 99 06/05/20 22:24 98.4 06/05/20 21:53 147/75 06/05/20 21:00 Room Air 06/05/20 20:00 98.7 87 20 148/71 (96) 97 06/05/20 17:38 89 20 141/88 97 06/05/20 17:08 89 20 141/88 97 06/05/20 15:46 98.4 89 20 141/88 (105) 97 06/05/20 13:15 146/70 06/05/20 12:00 98.1 87 18 146/70 (95) 98 06/05/20 08:42 78 150/72 06/05/20 08:40 Room Air 06/05/20 07:54 97.9 78 20 150/72 (98) 98 06/05/20 05:24 156/78 06/05/20 04:00 98.0 86 18 132/86 (101) 95 06/05/20 03:36 92 18 134/82 96 ROS: unchanged from my evaluation of 05/24/20 RHYTHM: NSR, SB, PACs LUNGS: lungs clear bilaterally, other - jame cath CARDIAC: normal rate, regular rhythm, normal S1 and S2, gallop/S4 ABDOMEN: non tender, soft, no organomegaly, no mass EXTREMITIES: No edema, other - skin wound per nursing documentation Laboratory Tests Test 06/05/20 06:55 White Blood Count 4.2 K/UL (4.8-10.8) L Red Blood Count 3.30 M/UL (4.20-5.40) L Hemoglobin 9.7 G/DL (12.0-16.0) L Hematocrit 30.5 % (37.0-47.0) L Mean Corpuscular Volume 92 FL (80-99) Mean Corpuscular Hemoglobin 29.4 PG (27.0-31.0) Mean Corpuscular Hemoglobin Concent 31.8 G/DL (32.0-36.0) L Red Cell Distribution Width 17.1 % (11.6-14.8) H Platelet Count 256 K/UL (150-450) Mean Platelet Volume 5.6 FL (6.5-10.1) L Neutrophils (%) (Auto) 63.1 % (45.0-75.0) Lymphocytes (%) (Auto) 19.8 % (20.0-45.0) L Monocytes (%) (Auto) 11.0 % (1.0-10.0) H Eosinophils (%) (Auto) 4.8 % (0.0-3.0) H Basophils (%) (Auto) 1.3 % (0.0-2.0) Sodium Level 136 MMOL/L (136-145) Potassium Level 3.7 MMOL/L (3.5-5.1) Chloride Level 98 MMOL/L (98-107) Carbon Dioxide Level 32 MMOL/L (21-32) Anion Gap 6 mmol/L (5-15) Blood Urea Nitrogen 14 mg/dL (7-18) Creatinine 5.9 MG/DL (0.55-1.30) H Estimat Glomerular Filtration Rate 8.6 mL/min (>60) Glucose Level 89 MG/DL (74-106) Calcium Level 8.4 MG/DL (8.5-10.1) L Phosphorus Level 2.1 MG/DL (2.5-4.9) L Magnesium Level 2.3 MG/DL (1.8-2.4) Total Bilirubin 0.4 MG/DL (0.2-1.0) Aspartate Amino Transf (AST/SGOT) 41 U/L (15-37) H Alanine Aminotransferase (ALT/SGPT) 7 U/L (12-78) L Alkaline Phosphatase 82 U/L (46-116) C-Reactive Protein, Quantitative 1.5 mg/dL (0.00-0.90) H Pro-B-Type Natriuretic Peptide > 62344 pg/mL (0-125) H Total Protein 9.1 G/DL (6.4-8.2) H Albumin 2.8 G/DL (3.4-5.0) L Globulin 6.3 g/dL Albumin/Globulin Ratio 0.4 (1.0-2.7) L Assessment/Plan Assessment/Plan Fevers - due to line infection. No increased endocarditis risk noted by 2D Echo criteria. Acute on chronic Diastolic CHF Hypertensive urgency - resolved; BP range minimally elevated at times ESRD - with history of frequently missed dialysis sessions as outpatient. Anginal episode precipitated by above; no recurrence since admission. HHD Sinus node disease with hx of tachy-alysa syndrome; patient has refused pacemaker in past. Chronic cocaine abuse Buttocks wound PermCath once cleared by ID. Antimicrobials per ID HD/UF Titrate antiHTN and anti-failure regimen as needed. Counselled repeatedly regarding cocaine use Skin care Limits set on pain therapies Nam Barnett MD Jun 06, 2020 01:44
[2020-06-06] MEDS: HYDROmorphone 1mg/ml Carpuject IVP PRN ×2 (02:33→06:37)
[2020-06-06] MEDS: HydrOXYzine tab 25mg tab ORAL SCH ×3 (04:34→21:57)
[2020-06-06] MEDS: LORazepam 1mg tab ORAL PRN ×2 (05:29→21:38)
[2020-06-06] MEDS: HydrALAZINE 25mg tab ORAL SCH ×3 (06:00→21:57)
[2020-06-06 07:01] LABS: BASOPHILS % (AUTO) 0.7 % (0.0-2.0); EOSINOPHILS % (AUTO) 4.4 % (0.0-3.0); HEMATOCRIT 31.5 % (37.0-47.0); HEMOGLOBIN 9.5 G/DL (12.0-16.0); LYMPHOCYTES % (AUTO) 19.9 % (20.0-45.0); MEAN CORPUSCULAR VOLUME 96 FL (80-99); MONOCYTES % (AUTO) 8.7 % (1.0-10.0); NEUTROPHILS % (AUTO) 66.3 % (45.0-75.0); PLATELET COUNT 280 K/UL (150-450); RED BLOOD COUNT 3.27 M/UL (4.20-5.40); RED CELL DISTRIBUTION WIDTH 16.8 % (11.6-14.8); WHITE BLOOD COUNT 4.9 K/UL (4.8-10.8)
[2020-06-06 07:52] LABS: ALBUMIN 2.7 G/DL (3.4-5.0); ALBUMIN/GLOBULIN RATIO 0.5 (1.0-2.7); BILIRUBIN,TOTAL 0.3 MG/DL (0.2-1.0); CALCIUM 8.3 MG/DL (8.5-10.1); PHOSPHORUS 3.8 MG/DL (2.5-4.9); POTASSIUM 3.6 MMOL/L (3.5-5.1)
[2020-06-06] MEDS: Docusate 100mg cap ORAL SCH ×3 (08:12→17:43)
[2020-06-06] MEDS: Patient's Own Med - Ritonavir 100mg ORAL SCH ×2 (08:13→17:43)
[2020-06-06] MEDS: Heparin 5000 units/ml inj SUBQ SCH ×2 (08:14→21:58)
[2020-06-06] MEDS: Patient's Own Med - Tivicay 50mg ORAL SCH (08:14)
--- NOTE | 2020-06-06 09:31 | General Progress Note ---
Subjective ROS Limited/Unobtainable: No Constitutional: Reports: malaise, weakness HEENT: Reports: no symptoms Cardiovascular: Reports: no symptoms Respiratory: Reports: no symptoms Gastrointestinal/Abdominal: Reports: no symptoms Genitourinary: Reports: no symptoms Neurologic/Psychiatric: Reports: anxiety, depressed Endocrine: Reports: no symptoms Hematologic/Lymphatic: Reports: no symptoms Allergies: Coded Allergies: ASPIRIN (Unverified Allergy, Unknown, 01/16/20) IODINE (Verified Allergy, Unknown, 01/07/20) Uncoded Allergies: CONTRAST DYE (Allergy, Unknown, 01/07/20) NSAID (Allergy, Unknown, 04/24/20) All Systems: reviewed and negative except above Subjective no new complaints. stable. continued complaints of pain- appears comfortable. sleeping. no fever or chills. no sob. tolerating HD thru lazaro cath. remains on iv abx. no vomiting. Objective Last 24 Hour Vital Signs Date Time Temp Pulse Resp B/P (MAP) Pulse Ox O2 Delivery O2 Flow Rate FiO2 06/06/20 08:12 Room Air 06/06/20 08:12 79 144/70 06/06/20 07:59 98.1 79 18 144/70 (94) 91 06/06/20 07:07 98.5 06/06/20 05:59 85 19 140/73 97 06/06/20 05:29 87 20 145/79 98 06/06/20 04:00 98.5 83 20 146/74 (98) 97 06/06/20 03:03 98.4 06/06/20 00:00 98.4 80 20 145/72 (96) 99 06/05/20 22:24 98.4 06/05/20 21:53 147/75 06/05/20 21:00 Room Air 06/05/20 20:00 98.7 87 20 148/71 (96) 97 06/05/20 17:38 89 20 141/88 97 06/05/20 17:08 89 20 141/88 97 06/05/20 15:46 98.4 89 20 141/88 (105) 97 06/05/20 13:15 146/70 06/05/20 12:00 98.1 87 18 146/70 (95) 98 Intake and Output 06/05/20 06/06/20 19:00 07:00 Intake Total 360 ml Balance 360 ml Intake Oral 360 ml # Bowel Movements 1 Laboratory Tests 06/06/20 06:20: White Blood Count 4.9, Red Blood Count 3.27L, Hemoglobin 9.5L, Hematocrit 31.5L, Mean Corpuscular Volume 96, Mean Corpuscular Hemoglobin 29.0, Mean Corpuscular Hemoglobin Concent 30.1L, Red Cell Distribution Width 16.8H, Platelet Count 280, Mean Platelet Volume 5.8L, Neutrophils (%) (Auto) 66.3, Lymphocytes (%) (Auto) 19.9L, Monocytes (%) (Auto) 8.7, Eosinophils (%) (Auto) 4.4H, Basophils (%) (Auto) 0.7, Sodium Level 135L, Potassium Level 3.6, Chloride Level 97L, Carbon Dioxide Level 31, Anion Gap 8, Blood Urea Nitrogen 17, Creatinine 7.0H, Estimat Glomerular Filtration Rate 7.2, Glucose Level 89, Calcium Level 8.3L, Phosphorus Level 3.8, Magnesium Level 2.2, Total Bilirubin 0.3, Aspartate Amino Transf (AST/SGOT) 39H, Alanine Aminotransferase (ALT/SGPT) 6L, Alkaline Phosphatase 86, C-Reactive Protein, Quantitative 1.7H, Pro-B-Type Natriuretic Peptide > 85549R, Total Protein 8.6H, Albumin 2.7L, Globulin 5.9, Albumin/Globulin Ratio 0.5L Height (Feet): 5 Height (Inches): 5.00 Weight (Pounds): 160 Objective General Appearance: WD/WN, alert, mild distress, agitated EENT: normal ENT inspection. +left neck HD catheter Neck: non-tender, normal alignment, supple Cardiovascular: normal peripheral pulses, normal rate, regular rhythm Respiratory/Chest: chest wall non-tender, lungs clear, normal breath sounds, no respiratory distress Abdomen: normal bowel sounds, non tender, soft, no organomegaly Edema: no edema noted Arm (L), no edema noted Arm (R) Neurologic: land examiner II-XII grossly normal, alert, responsive Skin: other - ?abrasion between buttocks Assessment/Plan Problem List: (1) Hypertensive urgency ICD Codes: I16.0 - Hypertensive urgency SNOMED: 590636293 (2) HIV disease ICD Codes: B20 - Human immunodeficiency virus [HIV] disease SNOMED: 86588220 (3) CHF (congestive heart failure), NYHA class II ICD Codes: I50.9 - Heart failure, unspecified SNOMED: 160464666, 185709965 (4) ESRD (end stage renal disease) on dialysis ICD Codes: N18.6 - End stage renal disease; Z99.2 - Dependence on renal dialysis SNOMED: 781454195 (5) Substance abuse ICD Codes: F19.10 - Other psychoactive substance abuse, uncomplicated SNOMED: 06179292 Status: stable, progressing Assessment/Plan: iv abx per ID HD per renal echo wound care tylenol for fever dvt/stress ulcer prophylaxis pain rx and anxiolytics as needed. +hx of opioid use do. iv decreased HD per renal perm cath when cleared by ID consider vascular eval for AVF cont pain rx and anxiolytics dvt/stress ulcer prophylaxis out of bed Michael Peralta MD Jun 06, 2020 09:31
[2020-06-06] MEDS: ceFAZolin sod 1 GM in D5W 55 ML IVPB SCH (09:50)
--- NOTE | 2020-06-06 11:13 | Nephrology Progress Note ---
Assessment/Plan Problem List: (1) ESRD (end stage renal disease) on dialysis (2) HIV disease (3) HCV antibody positive (4) Hypertensive urgency (5) Substance abuse Assessment Patient admitted with hypertensive urgency (1) ESRD (end stage renal disease) on dialysis (2) HIV disease (3) Cocaine abuse (4) Noncompliance (5) Anemia of chronic kidney disease Plan June 06: Due for dialysis today. Last blood cultures available is from June 01. Waiting for negative blood cultures for 48 hours to proceed with placement of tunneled catheter and then discharge. June 05: Dialyzed yesterday. Due for dialysis tomorrow. Surveillance blood cultures are done. When negative for 48 hours, will proceed with placement of tunneled catheter and discharge. June 04: Due for dialysis today. We will continue to follow blood cultures. Antibiotic for bacteremia in process. Will place tunneled catheter when patient is culture negative for 48 hours. CRP lowering. June 03: Patient had dialysis yesterday. Has a nontunneled dialysis access. Surveillance blood cultures pending. Will do dialysis tomorrow June 04. Will check lab tomorrow. June 02: Patient continues to have persistent bacteremia. Due for nontunneled dialysis catheter today. Will be dialyzed after insertion of the catheter today as her last dialysis was 3 days ago. Continue per consultants. June 01: Dialysis catheter removed May 31. Labs reviewed. Discussed wi RN. Will arrange for placement of a nontunneled dialysis catheter tomorrow. We will continue to order surveillance blood cultures. When blood cultures are negative will attempt to put a tunneled catheter prior to discharge. Continue per orders. May 31: Status quo. Dialyzed yesterday. I are will remove the permacath today. Tip will be sent for culture. Surveillance blood culture ordered for today again. CRP lower today. Continue to monitor electrolytes and renal parameters. May 30: Low-grade fever persists. Due for dialysis today. As per ID recommendation will discontinue the dialysis catheter which may be the source of fever and bacteremia. Discussed with RN. Orders given. Will check labs tomorrow. May 29: Patient remains febrile. Nontoxic. Dialyzed yesterday. Next dialysis tomorrow. Preliminary blood cultures positive for gram-positive's. Most likely source dialysis catheter. CRP jumped up to 14. Continue per ID advice. Keep the blood pressure and blood sugar in check. Will obtain repeated blood culture tomorrow during dialysis. Patient on vancomycin. May 28: Patient febrile. Cultures taken during dialysis. Vancomycin 1 dose given. Will check labs tomorrow. A temporary catheter may need to be discontinued and replaced if blood cultures positive. Continue per consultants. May 27: Patient in mild distress due to itching and generalized pain. Was dialyzed yesterday. Will dialyze again tomorrow. Will start on Atarax ro [id number] for itching. Labs reviewed, medications reviewed and adjusted. B12 subcu and to p.o. Synthroid ordered Patient was dialyzed 05/24, will dialyze today Will adjust blood pressure medication Per orders 2. Dr. Townsend to call urologist the catheter again yet to talk to the person was put in the disc note thank you very much by Subjective ROS Limited/Unobtainable: No Constitutional: Reports: malaise Objective Objective Last 24 Hour Vital Signs Date Time Temp Pulse Resp B/P (MAP) Pulse Ox O2 Delivery O2 Flow Rate FiO2 06/06/20 08:12 Room Air 06/06/20 08:12 79 144/70 06/06/20 07:59 98.1 79 18 144/70 (94) 91 06/06/20 07:07 98.5 06/06/20 05:59 85 19 140/73 97 06/06/20 05:29 87 20 145/79 98 06/06/20 04:00 98.5 83 20 146/74 (98) 97 06/06/20 03:03 98.4 06/06/20 00:00 98.4 80 20 145/72 (96) 99 06/05/20 22:24 98.4 06/05/20 21:53 147/75 06/05/20 21:00 Room Air 06/05/20 20:00 98.7 87 20 148/71 (96) 97 06/05/20 17:38 89 20 141/88 97 06/05/20 17:08 89 20 141/88 97 06/05/20 15:46 98.4 89 20 141/88 (105) 97 06/05/20 13:15 146/70 06/05/20 12:00 98.1 87 18 146/70 (95) 98 Intake and Output 06/05/20 06/06/20 19:00 07:00 Intake Total 360 ml Balance 360 ml Intake Oral 360 ml # Bowel Movements 1 Current Medications Medications (Trade) Dose Ordered Sig/Rochelle Route PRN Reason Start Time Stop Time Status Last Admin Dose Admin Acetaminophen (Tylenol) 650 mg Q6H PRN ORAL Temp >100.5 05/27/20 18:00 06/26/20 17:59 05/29/20 22:27 Acetaminophen/ Hydrocodone Bitart ([place] 10325) 1 tab Q4H PRN ORAL Moderate Pain (4-6) 06/05/20 12:00 06/12/20 11:59 Amlodipine Besylate (Norvasc) 10 mg DAILY ORAL 05/24/20 16:00 06/23/20 15:59 06/05/20 08:42 Cefazolin Sodium 1 gm/Dextrose 55 ml @ 110 mls/hr DAILY IVPB 06/06/20 09:00 06/13/20 08:59 06/06/20 09:50 Diphenhydramine HCl (Benadryl) 25 mg Q6H PRN ORAL Itching 05/25/20 08:30 06/24/20 08:29 06/05/20 03:36 Docusate Sodium (Colace) 100 mg TID ORAL 05/25/20 13:00 06/23/20 17:59 06/06/20 08:12 Epoetin Jose (Epoetin Jose(ESRD on dialysis)) 10,000 unit FRI-FRI-FRI SUBQ 05/26/20 21:00 08/24/20 20:59 06/05/20 20:42 Heparin Sodium (Porcine) (Heparin 5000 units/ml) 5,000 units EVERY 12 HOURS SUBQ 05/24/20 21:00 07/08/20 20:59 06/05/20 20:48 Hydralazine HCl (Apresoline) 25 mg Q6H PRN ORAL For High Blood Pressure 05/24/20 16:00 08/22/20 15:59 05/31/20 01:50 Hydralazine HCl (Apresoline) 75 mg EVERY 8 HOURS ORAL 05/31/20 14:00 08/29/20 13:59 06/05/20 21:53 Hydromorphone HCl (Dilaudid) 0.5 mg Q6H PRN IVP Severe Pain (Pain Scale 7-10) 06/06/20 09:34 06/13/20 09:33 Hydroxyzine HCl (Atarax) 25 mg Q8H ORAL 05/27/20 20:30 06/26/20 20:29 06/06/20 04:34 Levothyroxine Sodium (Synthroid) 75 mcg Q24H ORAL 05/27/20 06:30 06/26/20 06:29 06/06/20 05:29 Lidocaine HCl (Xylocaine Viscous) 15 ml Q4H PRN ORAL For Pain 05/31/20 18:15 08/29/20 18:14 Lorazepam (Ativan) 1 mg Q6H PRN ORAL For Anxiety 06/05/20 10:00 06/12/20 09:59 06/06/20 05:29 Nitroglycerin (Ntg) 0.4 mg Q5M PRN SL Prn Chest Pain 05/24/20 10:45 06/23/20 10:44 Ondansetron HCl (Zofran) 4 mg Q6H PRN IVP Nausea & Vomiting 05/24/20 16:00 06/23/20 15:59 Pantoprazole (Protonix) 40 mg BID ORAL 05/29/20 18:00 06/25/20 08:59 06/06/20 08:12 Patient Own Medication (Patient's Own Med) 1 ea BID ORAL 05/30/20 18:00 06/29/20 17:59 06/06/20 08:13 Patient Own Medication (Patient's Own Med) 1 ea BID ORAL 05/30/20 18:00 06/29/20 17:59 06/06/20 08:14 Patient Own Medication (Patient's Own Med) 1 ea DAILY ORAL 05/31/20 09:00 06/30/20 08:59 06/06/20 08:14 Sodium Chloride 1,000 ml @ 500 mls/hr Q2H PRN IVLG sbp<90 during hd 05/25/20 17:30 06/24/20 17:29 Laboratory Tests 06/06/20 06:20: White Blood Count 4.9, Red Blood Count 3.27L, Hemoglobin 9.5L, Hematocrit 31.5L, Mean Corpuscular Volume 96, Mean Corpuscular Hemoglobin 29.0, Mean Corpuscular Hemoglobin Concent 30.1L, Red Cell Distribution Width 16.8H, Platelet Count 280, Mean Platelet Volume 5.8L, Neutrophils (%) (Auto) 66.3, Lymphocytes (%) (Auto) 19.9L, Monocytes (%) (Auto) 8.7, Eosinophils (%) (Auto) 4.4H, Basophils (%) (Auto) 0.7, Sodium Level 135L, Potassium Level 3.6, Chloride Level 97L, Carbon Dioxide Level 31, Anion Gap 8, Blood Urea Nitrogen 17, Creatinine 7.0H, Estimat Glomerular Filtration Rate 7.2, Glucose Level 89, Calcium Level 8.3L, Phosphorus Level 3.8, Magnesium Level 2.2, Total Bilirubin 0.3, Aspartate Amino Transf (AST/SGOT) 39H, Alanine Aminotransferase (ALT/SGPT) 6L, Alkaline Phosphatase 86, C-Reactive Protein, Quantitative 1.7H, Pro-B-Type Natriuretic Peptide > 60671A, Total Protein 8.6H, Albumin 2.7L, Globulin 5.9, Albumin/Globulin Ratio 0.5L Height (Feet): 5 Height (Inches): 5.00 Weight (Pounds): 160 General Appearance: no apparent distress Cardiovascular: normal rate Respiratory/Chest: decreased breath sounds Abdomen: soft Objective No change Jack Pryor MD Jun 06, 2020 11:13
--- NOTE | 2020-06-06 11:16 | Infectious Diseases Prog Note ---
"Assessment/Plan Assessment/Plan antibiotics : ancef A 1. staph aureus sepsis s/p catheter removal 2. proteus catheter infection 3. renal failure on HD 4. HIV 5. hypertension 6. COVID 19 negative x 2 7. e.coli | proteus UTI s/p rx P 1. continue ancef 2. 2 d echo pending 3. will follow up cultures Subjective Constitutional: Denies: fever, chills Respiratory: Denies: shortness of breath, dry cough Gastrointestinal/Abdominal: Denies: nausea, vomiting, diarrhea Musculoskeletal: Reports: pain Allergies: Coded Allergies: ASPIRIN (Unverified Allergy, Unknown, 01/16/20) IODINE (Verified Allergy, Unknown, 01/07/20) Uncoded Allergies: CONTRAST DYE (Allergy, Unknown, 01/07/20) NSAID (Allergy, Unknown, 04/24/20) Objective Last 24 Hour Vital Signs Date Time Temp Pulse Resp B/P (MAP) Pulse Ox O2 Delivery O2 Flow Rate FiO2 06/06/20 08:12 Room Air 06/06/20 08:12 79 144/70 06/06/20 07:59 98.1 79 18 144/70 (94) 91 06/06/20 07:07 98.5 06/06/20 05:59 85 19 140/73 97 06/06/20 05:29 87 20 145/79 98 06/06/20 04:00 98.5 83 20 146/74 (98) 97 06/06/20 03:03 98.4 06/06/20 00:00 98.4 80 20 145/72 (96) 99 06/05/20 22:24 98.4 06/05/20 21:53 147/75 06/05/20 21:00 Room Air 06/05/20 20:00 98.7 87 20 148/71 (96) 97 06/05/20 17:38 89 20 141/88 97 06/05/20 17:08 89 20 141/88 97 06/05/20 15:46 98.4 89 20 141/88 (105) 97 06/05/20 13:15 146/70 06/05/20 12:00 98.1 87 18 146/70 (95) 98 Height (Feet): 5 Height (Inches): 5.00 Weight (Pounds): 160 Respiratory/Chest: lungs clear Cardiovascular: normal rate, regular rhythm, no gallop/murmur Abdomen: soft, non tender Extremities: no edema, other - left IJ catheter Laboratory Tests Test 06/06/20 06:20 White Blood Count 4.9 K/UL (4.8-10.8) Red Blood Count 3.27 M/UL (4.20-5.40) L Hemoglobin 9.5 G/DL (12.0-16.0) L Hematocrit 31.5 % (37.0-47.0) L Mean Corpuscular Volume 96 FL (80-99) Mean Corpuscular Hemoglobin 29.0 PG (27.0-31.0) Mean Corpuscular Hemoglobin Concent 30.1 G/DL (32.0-36.0) L Red Cell Distribution Width 16.8 % (11.6-14.8) H Platelet Count 280 K/UL (150-450) Mean Platelet Volume 5.8 FL (6.5-10.1) L Neutrophils (%) (Auto) 66.3 % (45.0-75.0) Lymphocytes (%) (Auto) 19.9 % (20.0-45.0) L Monocytes (%) (Auto) 8.7 % (1.0-10.0) Eosinophils (%) (Auto) 4.4 % (0.0-3.0) H Basophils (%) (Auto) 0.7 % (0.0-2.0) Sodium Level 135 MMOL/L (136-145) L Potassium Level 3.6 MMOL/L (3.5-5.1) Chloride Level 97 MMOL/L (98-107) L Carbon Dioxide Level 31 MMOL/L (21-32) Anion Gap 8 mmol/L (5-15) Blood Urea Nitrogen 17 mg/dL (7-18) Creatinine 7.0 MG/DL (0.55-1.30) H Estimat Glomerular Filtration Rate 7.2 mL/min (>60) Glucose Level 89 MG/DL (74-106) Calcium Level 8.3 MG/DL (8.5-10.1) L Phosphorus Level 3.8 MG/DL (2.5-4.9) Magnesium Level 2.2 MG/DL (1.8-2.4) Total Bilirubin 0.3 MG/DL (0.2-1.0) Aspartate Amino Transf (AST/SGOT) 39 U/L (15-37) H Alanine Aminotransferase (ALT/SGPT) 6 U/L (12-78) L Alkaline Phosphatase 86 U/L (46-116) C-Reactive Protein, Quantitative 1.7 mg/dL (0.00-0.90) H Pro-B-Type Natriuretic Peptide > 31676 pg/mL (0-125) H Total Protein 8.6 G/DL (6.4-8.2) H Albumin 2.7 G/DL (3.4-5.0) L Globulin 5.9 g/dL Albumin/Globulin Ratio 0.5 (1.0-2.7) L Current Medications Medications (Trade) Dose Ordered Sig/Rochelle Route PRN Reason Start Time Stop Time Status Last Admin Dose Admin Acetaminophen (Tylenol) 650 mg Q6H PRN ORAL Temp >100.5 05/27/20 18:00 06/26/20 17:59 05/29/20 22:27 Acetaminophen/ Hydrocodone Bitart ([place] 10/325) 1 tab Q4H PRN ORAL Moderate Pain (4-6) 06/05/20 12:00 06/12/20 11:59 Amlodipine Besylate (Norvasc) 10 mg DAILY ORAL 05/24/20 16:00 06/23/20 15:59 06/05/20 08:42 Cefazolin Sodium 1 gm/Dextrose 55 ml @ 110 mls/hr DAILY IVPB 06/06/20 09:00 06/13/20 08:59 06/06/20 09:50 Diphenhydramine HCl (Benadryl) 25 mg Q6H PRN ORAL Itching 05/25/20 08:30 06/24/20 08:29 06/05/20 03:36 Docusate Sodium (Colace) 100 mg TID ORAL 05/25/20 13:00 06/23/20 17:59 06/06/20 08:12 Epoetin Jose (Epoetin Jose(ESRD on dialysis)) 10,000 unit FRI-FRI-FRI SUBQ 05/26/20 21:00 08/24/20 20:59 06/05/20 20:42 Heparin Sodium (Porcine) (Heparin 5000 units/ml) 5,000 units EVERY 12 HOURS SUBQ 05/24/20 21:00 07/08/20 20:59 06/05/20 20:48 Hydralazine HCl (Apresoline) 25 mg Q6H PRN ORAL For High Blood Pressure 05/24/20 16:00 08/22/20 15:59 05/31/20 01:50 Hydralazine HCl (Apresoline) 75 mg EVERY 8 HOURS ORAL 05/31/20 14:00 08/29/20 13:59 06/05/20 21:53 Hydromorphone HCl (Dilaudid) 0.5 mg Q6H PRN IVP Severe Pain (Pain Scale 7-10) 06/06/20 09:34 06/13/20 09:33 Hydroxyzine HCl (Atarax) 25 mg Q8H ORAL 05/27/20 20:30 06/26/20 20:29 06/06/20 04:34 Levothyroxine Sodium (Synthroid) 75 mcg Q24H ORAL 05/27/20 06:30 06/26/20 06:29 06/06/20 05:29 Lidocaine HCl (Xylocaine Viscous) 15 ml Q4H PRN ORAL For Pain 05/31/20 18:15 08/29/20 18:14 Lorazepam (Ativan) 1 mg Q6H PRN ORAL For Anxiety 06/05/20 10:00 06/12/20 09:59 06/06/20 05:29 Nitroglycerin (Ntg) 0.4 mg Q5M PRN SL Prn Chest Pain 05/24/20 10:45 06/23/20 10:44 Ondansetron HCl (Zofran) 4 mg Q6H PRN IVP Nausea & Vomiting 05/24/20 16:00 06/23/20 15:59 Pantoprazole (Protonix) 40 mg BID ORAL 05/29/20 18:00 06/25/20 08:59 06/06/20 08:12 Patient Own Medication (Patient's Own Med) 1 ea BID ORAL 05/30/20 18:00 06/29/20 17:59 06/06/20 08:13 Patient Own Medication (Patient's Own Med) 1 ea BID ORAL 05/30/20 18:00 06/29/20 17:59 06/06/20 08:14 Patient Own Medication (Patient's Own Med) 1 ea DAILY ORAL 05/31/20 09:00 06/30/20 08:59 06/06/20 08:14 Sodium Chloride 1,000 ml @ 500 mls/hr Q2H PRN IVLG sbp<90 during hd 05/25/20 17:30 06/24/20 17:29 Elvis Garibay MD Jun 06, 2020 11:16"
[2020-06-06] MEDS: Hydromorphone 0.5mg/0.5ml inj IVP PRN ×3 (12:00→23:28)
--- NOTE | 2020-06-07 01:06 | Cardiology Progress Note ---
Subjective DATE OF SERVICE: Jun 06, 2020 Jame cath placed for HD on 06/02/20; prior PermCath removed. Blood cultures positive for S.aureus (MSSA). Still c/o pain and asking for more pain medications; appears comfortable however. No CP or SOB BP range stable overall, with some borderline elevations noted. Objective Last 24 Hour Vital Signs Date Time Temp Pulse Resp B/P (MAP) Pulse Ox O2 Delivery O2 Flow Rate FiO2 06/06/20 23:53 98.6 82 20 142/66 (91) 96 06/06/20 22:08 90 18 140/79 97 06/06/20 21:57 142/80 06/06/20 21:38 110 18 142/80 96 06/06/20 20:36 Room Air 06/06/20 20:00 98.4 110 18 142/80 (100) 96 06/06/20 15:47 98.2 83 19 138/66 (90) 94 06/06/20 13:10 152/79 06/06/20 11:43 97.9 101 20 152/79 (103) 93 06/06/20 08:12 Room Air 06/06/20 08:12 79 144/70 06/06/20 07:59 98.1 79 18 144/70 (94) 91 06/06/20 07:07 98.5 06/06/20 05:59 85 19 140/73 97 06/06/20 05:29 87 20 145/79 98 06/06/20 04:00 98.5 83 20 146/74 (98) 97 06/06/20 03:03 98.4 ROS: unchanged from my evaluation of 05/24/20 RHYTHM: NSR, SB, PACs LUNGS: lungs clear bilaterally, other - jame cath CARDIAC: normal rate, regular rhythm, normal S1 and S2, gallop/S4 ABDOMEN: non tender, soft, no organomegaly, no mass EXTREMITIES: No edema, other - skin wound per nursing documentation Laboratory Tests Test 06/06/20 06:20 White Blood Count 4.9 K/UL (4.8-10.8) Red Blood Count 3.27 M/UL (4.20-5.40) L Hemoglobin 9.5 G/DL (12.0-16.0) L Hematocrit 31.5 % (37.0-47.0) L Mean Corpuscular Volume 96 FL (80-99) Mean Corpuscular Hemoglobin 29.0 PG (27.0-31.0) Mean Corpuscular Hemoglobin Concent 30.1 G/DL (32.0-36.0) L Red Cell Distribution Width 16.8 % (11.6-14.8) H Platelet Count 280 K/UL (150-450) Mean Platelet Volume 5.8 FL (6.5-10.1) L Neutrophils (%) (Auto) 66.3 % (45.0-75.0) Lymphocytes (%) (Auto) 19.9 % (20.0-45.0) L Monocytes (%) (Auto) 8.7 % (1.0-10.0) Eosinophils (%) (Auto) 4.4 % (0.0-3.0) H Basophils (%) (Auto) 0.7 % (0.0-2.0) Sodium Level 135 MMOL/L (136-145) L Potassium Level 3.6 MMOL/L (3.5-5.1) Chloride Level 97 MMOL/L (98-107) L Carbon Dioxide Level 31 MMOL/L (21-32) Anion Gap 8 mmol/L (5-15) Blood Urea Nitrogen 17 mg/dL (7-18) Creatinine 7.0 MG/DL (0.55-1.30) H Estimat Glomerular Filtration Rate 7.2 mL/min (>60) Glucose Level 89 MG/DL (74-106) Calcium Level 8.3 MG/DL (8.5-10.1) L Phosphorus Level 3.8 MG/DL (2.5-4.9) Magnesium Level 2.2 MG/DL (1.8-2.4) Total Bilirubin 0.3 MG/DL (0.2-1.0) Aspartate Amino Transf (AST/SGOT) 39 U/L (15-37) H Alanine Aminotransferase (ALT/SGPT) 6 U/L (12-78) L Alkaline Phosphatase 86 U/L (46-116) C-Reactive Protein, Quantitative 1.7 mg/dL (0.00-0.90) H Pro-B-Type Natriuretic Peptide > 71818 pg/mL (0-125) H Total Protein 8.6 G/DL (6.4-8.2) H Albumin 2.7 G/DL (3.4-5.0) L Globulin 5.9 g/dL Albumin/Globulin Ratio 0.5 (1.0-2.7) L Assessment/Plan Assessment/Plan Fevers - due to line infection. No increased endocarditis risk noted by 2D Echo criteria. Acute on chronic Diastolic CHF Hypertensive urgency - resolved; BP range minimally elevated at times ESRD - with history of frequently missed dialysis sessions as outpatient. Anginal episode precipitated by above; no recurrence since admission. HHD Sinus node disease with hx of tachy-alysa syndrome; patient has refused pace maker in past. Chronic cocaine abuse Buttocks wound PermCath once cleared by ID. Antimicrobials per ID HD/UF Titrate antiHTN and anti-failure regimen as needed. Counselled repeatedly regarding cocaine use Skin care Symptom-guided pain control Nam Barnett MD Jun 07, 2020 01:06
[2020-06-07 04:03] VITALS: BP 147/64
--- NOTE | 2020-06-07 04:17 | Cardiology Report ---
APPROVED REPORT EKG Measurement Heart [id number] <Conclusion> Normal sinus rhythm Low voltage QRS Septal infarct, age undetermined Abnormal ECG
[2020-06-07] MEDS: HydrALAZINE 25mg tab ORAL SCH ×3 (05:35→23:34)
[2020-06-07] MEDS: HydrOXYzine tab 25mg tab ORAL SCH ×3 (05:35→20:41)
[2020-06-07] MEDS: Hydromorphone 0.5mg/0.5ml inj IVP PRN ×4 (05:37→23:31)
[2020-06-07 08:00] VITALS: BP 128/67
--- NOTE | 2020-06-07 08:21 | General Progress Note ---
Subjective ROS Limited/Unobtainable: No Constitutional: Reports: malaise, weakness HEENT: Reports: no symptoms Cardiovascular: Reports: no symptoms Respiratory: Reports: no symptoms Gastrointestinal/Abdominal: Reports: no symptoms Genitourinary: Reports: no symptoms Neurologic/Psychiatric: Reports: anxiety, depressed Endocrine: Reports: no symptoms Hematologic/Lymphatic: Reports: no symptoms Allergies: Coded Allergies: ASPIRIN (Unverified Allergy, Unknown, 01/16/20) IODINE (Verified Allergy, Unknown, 01/07/20) Uncoded Allergies: CONTRAST DYE (Allergy, Unknown, 01/07/20) NSAID (Allergy, Unknown, 04/24/20) All Systems: reviewed and negative except above Subjective c/o depression and anxiety. upset that pain meds were decreased. npo for perm cath placement. no fevers or chills. no sob. c/o neck pain from IJ Objective Last 24 Hour Vital Signs Date Time Temp Pulse Resp B/P (MAP) Pulse Ox O2 Delivery O2 Flow Rate FiO2 06/07/20 08:00 97.9 83 17 128/67 (87) 93 06/07/20 05:35 147/64 06/07/20 04:03 97.4 84 18 147/64 (91) 97 06/06/20 23:53 98.6 82 20 142/66 (91) 96 06/06/20 22:08 90 18 140/79 97 06/06/20 21:57 142/80 06/06/20 21:38 110 18 142/80 96 06/06/20 20:36 Room Air 06/06/20 20:00 98.4 110 18 142/80 (100) 96 06/06/20 15:47 98.2 83 19 138/66 (90) 94 06/06/20 13:10 152/79 06/06/20 11:43 97.9 101 20 152/79 (103) 93 Intake and Output 06/06/20 06/07/20 19:00 07:00 Intake Total 775 ml 600 ml Balance 775 ml 600 ml Intake Oral 720 ml 600 ml IV Total 55 ml # Bowel Movements 1 2 Height (Feet): 5 Height (Inches): 5.00 Weight (Pounds): 160 Objective General Appearance: WD/WN, alert, mild distress, agitated EENT: normal ENT inspection. 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 normal, alert, responsive Skin: other - ?abrasion between buttocks Assessment/Plan Problem List: (1) Hypertensive urgency ICD Codes: I16.0 - Hypertensive urgency SNOMED: 980547096 (2) HIV disease ICD Codes: B20 - Human immunodeficiency virus [HIV] disease SNOMED: 37777441 (3) CHF (congestive heart failure), NYHA class II ICD Codes: I50.9 - Heart failure, unspecified SNOMED: 305646952, 775416456 (4) ESRD (end stage renal disease) on dialysis ICD Codes: N18.6 - End stage renal disease; Z99.2 - Dependence on renal dialysis SNOMED: 935542649 (5) Substance abuse ICD Codes: F19.10 - Other psychoactive substance abuse, uncomplicated SNOMED: 01510492 Status: stable, progressing Assessment/Plan: iv abx per ID HD per renal echo wound care tylenol for fever dvt/stress ulcer prophylaxis pain rx and anxiolytics as needed. +hx of opioid use do. iv decreased HD per renal perm cath when cleared by ID consider vascular eval for AVF cont pain rx and anxiolytics dvt/stress ulcer prophylaxis out of bed psych consult called Michael Peralta MD Jun 07, 2020 08:21
[2020-06-07] MEDS: Heparin 5000 units/ml inj SUBQ SCH ×2 (09:00→20:37)
[2020-06-07] MEDS: ceFAZolin sod 1 GM in D5W 55 ML IVPB SCH (09:14)
[2020-06-07] MEDS: Docusate 100mg cap ORAL SCH ×3 (09:14→17:33)
[2020-06-07] MEDS: Patient's Own Med - Ritonavir 100mg ORAL SCH ×2 (09:15→17:34)
[2020-06-07] MEDS: Patient's Own Med - Tivicay 50mg ORAL SCH (09:15)
[2020-06-07] MEDS: LORazepam 1mg tab ORAL PRN ×2 (09:19→20:41)
--- NOTE | 2020-06-07 11:22 | Infectious Diseases Prog Note ---
"Assessment/Plan Assessment/Plan antibiotics : ancef A 1. staph aureus sepsis s/p catheter removal 2. proteus catheter infection 3. renal failure on HD 4. HIV 5. hypertension 6. COVID 19 negative x 2 7. e.coli | proteus UTI s/p rx P 1. continue ancef 2. blood culture 3. will follow up cultures Subjective ROS Limited/Unobtainable: Yes Constitutional: Denies: fever, chills Respiratory: Denies: shortness of breath, dry cough Gastrointestinal/Abdominal: Denies: nausea, vomiting, diarrhea Musculoskeletal: Reports: pain Allergies: Coded Allergies: ASPIRIN (Unverified Allergy, Unknown, 01/16/20) IODINE (Verified Allergy, Unknown, 01/07/20) Uncoded Allergies: CONTRAST DYE (Allergy, Unknown, 01/07/20) NSAID (Allergy, Unknown, 04/24/20) Objective Last 24 Hour Vital Signs Date Time Temp Pulse Resp B/P (MAP) Pulse Ox O2 Delivery O2 Flow Rate FiO2 06/07/20 09:49 83 17 128/67 93 06/07/20 09:19 83 17 128/67 93 06/07/20 09:14 83 128/67 06/07/20 09:00 Room Air 06/07/20 08:00 97.9 83 17 128/67 (87) 93 06/07/20 05:35 147/64 06/07/20 04:03 97.4 84 18 147/64 (91) 97 06/06/20 23:53 98.6 82 20 142/66 (91) 96 06/06/20 22:08 90 18 140/79 97 06/06/20 21:57 142/80 06/06/20 21:38 110 18 142/80 96 06/06/20 20:36 Room Air 06/06/20 20:00 98.4 110 18 142/80 (100) 96 06/06/20 15:47 98.2 83 19 138/66 (90) 94 06/06/20 13:10 152/79 06/06/20 11:43 97.9 101 20 152/79 (103) 93 Height (Feet): 5 Height (Inches): 5.00 Weight (Pounds): 160 Respiratory/Chest: lungs clear Cardiovascular: normal rate, regular rhythm, no gallop/murmur Abdomen: soft, non tender Extremities: no edema, other - left IJ catheter Current Medications Medications (Trade) Dose Ordered Sig/Rochelle Route PRN Reason Start Time Stop Time Status Last Admin Dose Admin Acetaminophen (Tylenol) 650 mg Q6H PRN ORAL Temp >100.5 05/27/20 18:00 06/26/20 17:59 05/29/20 22:27 Acetaminophen/ Hydrocodone Bitart ([place] 10/325) 1 tab Q4H PRN ORAL Moderate Pain (4-6) 06/05/20 12:00 06/12/20 11:59 Amlodipine Besylate (Norvasc) 10 mg DAILY ORAL 05/24/20 16:00 06/23/20 15:59 06/07/20 09:14 Cefazolin Sodium 1 gm/Dextrose 55 ml @ 110 mls/hr DAILY IVPB 06/06/20 09:00 06/13/20 08:59 06/07/20 09:14 Diphenhydramine HCl (Benadryl) 25 mg Q6H PRN ORAL Itching 05/25/20 08:30 06/24/20 08:29 06/06/20 23:32 Docusate Sodium (Colace) 100 mg TID ORAL 05/25/20 13:00 06/23/20 17:59 06/07/20 09:14 Epoetin Jose (Epoetin Jose(ESRD on dialysis)) 10,000 unit FRI-FRI-FRI SUBQ 05/26/20 21:00 08/24/20 20:59 06/05/20 20:42 Heparin Sodium (Porcine) (Heparin 5000 units/ml) 5,000 units EVERY 12 HOURS SUBQ 05/24/20 21:00 07/08/20 20:59 06/05/20 20:48 Hydralazine HCl (Apresoline) 25 mg Q6H PRN ORAL For High Blood Pressure 05/24/20 16:00 08/22/20 15:59 05/31/20 01:50 Hydralazine HCl (Apresoline) 75 mg EVERY 8 HOURS ORAL 05/31/20 14:00 08/29/20 13:59 06/07/20 05:35 Hydromorphone HCl (Dilaudid) 0.5 mg Q6H PRN IVP Severe Pain (Pain Scale 7-10) 06/06/20 09:34 06/13/20 09:33 06/07/20 05:37 Hydroxyzine HCl (Atarax) 25 mg Q8H ORAL 05/27/20 20:30 06/26/20 20:29 06/07/20 05:35 Levothyroxine Sodium (Synthroid) 75 mcg Q24H ORAL 05/27/20 06:30 06/26/20 06:29 06/07/20 05:36 Lidocaine HCl (Xylocaine Viscous) 15 ml Q4H PRN ORAL For Pain 05/31/20 18:15 08/29/20 18:14 Lorazepam (Ativan) 1 mg Q6H PRN ORAL For Anxiety 06/05/20 10:00 06/12/20 09:59 06/07/20 09:19 Nitroglycerin (Ntg) 0.4 mg Q5M PRN SL Prn Chest Pain 05/24/20 10:45 06/23/20 10:44 Ondansetron HCl (Zofran) 4 mg Q6H PRN IVP Nausea & Vomiting 05/24/20 16:00 06/23/20 15:59 Pantoprazole (Protonix) 40 mg BID ORAL 05/29/20 18:00 06/25/20 08:59 06/07/20 09:14 Patient Own Medication (Patient's Own Med) 1 ea BID ORAL 05/30/20 18:00 06/29/20 17:59 06/07/20 09:14 Patient Own Medication (Patient's Own Med) 1 ea BID ORAL 05/30/20 18:00 06/29/20 17:59 06/07/20 09:15 Patient Own Medication (Patient's Own Med) 1 ea DAILY ORAL 05/31/20 09:00 06/30/20 08:59 06/07/20 09:15 Sodium Chloride 1,000 ml @ 500 mls/hr Q2H PRN IVLG sbp<90 during hd 05/25/20 17:30 06/24/20 17:29 Elvis Garibay MD Jun 07, 2020 11:22"
[2020-06-07 12:00] VITALS: BP 155/75
--- NOTE | 2020-06-07 12:34 | Nephrology Progress Note ---
Assessment/Plan Problem List: (1) ESRD (end stage renal disease) on dialysis (2) HIV disease (3) HCV antibody positive (4) Hypertensive urgency (5) Substance abuse Assessment Patient admitted with hypertensive urgency (1) ESRD (end stage renal disease) on dialysis (2) HIV disease (3) Cocaine abuse (4) Noncompliance (5) Anemia of chronic kidney disease Plan June 07: Patient due for placement of tunneled catheter. Patient due for dialysis tomorrow. After insertion of the tunneled catheter patient can be discharged from a renal standpoint of view and continue outpatient dialysis Friday. June 06: Due for dialysis today. Last blood cultures available is from June 01. Waiting for negative blood cultures for 48 hours to proceed with placement of tunneled catheter and then discharge. June 05: Dialyzed yesterday. Due for dialysis tomorrow. Surveillance blood cultures are done. When negative for 48 hours, will proceed with placement of tunneled catheter and discharge. June 04: Due for dialysis today. We will continue to follow blood cultures. Antibiotic for bacteremia in process. Will place tunneled catheter when patient is culture negative for 48 hours. CRP lowering. June 03: Patient had dialysis yesterday. Has a nontunneled dialysis access. Surveillance blood cultures pending. Will do dialysis tomorrow June 04. Will check lab tomorrow. June 02: Patient continues to have persistent bacteremia. Due for nontunneled dialysis catheter today. Will be dialyzed after insertion of the catheter today as her last dialysis was 3 days ago. Continue per consultants. June 01: Dialysis catheter removed May 31. Labs reviewed. Discussed wi RN. Will arrange for placement of a nontunneled dialysis catheter tomorrow. We will continue to order surveillance blood cultures. When blood cultures are negative will attempt to put a tunneled catheter prior to discharge. Continue per orders. May 31: Status quo. Dialyzed yesterday. I are will remove the permacath today. Tip will be sent for culture. Surveillance blood culture ordered for today again. CRP lower today. Continue to monitor electrolytes and renal parameters. May 30: Low-grade fever persists. Due for dialysis today. As per ID recommendation will discontinue the dialysis catheter which may be the source of fever and bacteremia. Discussed with RN. Orders given. Will check labs tomorrow. May 29: Patient remains febrile. Nontoxic. Dialyzed yesterday. Next dialysis tomorrow. Preliminary blood cultures positive for gram-positive's. Most likely source dialysis catheter. CRP jumped up to 14. Continue per ID advice. Keep the blood pressure and blood sugar in check. Will obtain repeated blood culture tomorrow during dialysis. Patient on vancomycin. May 28: Patient febrile. Cultures taken during dialysis. Vancomycin 1 dose given. Will check labs tomorrow. A temporary catheter may need to be discontinued and replaced if blood cultures positive. Continue per consultants. May 27: Patient in mild distress due to itching and generalized pain. Was dialyzed yesterday. Will dialyze again tomorrow. Will start on Atarax ro [id number] for itching. Labs reviewed, medications reviewed and adjusted. B12 subcu and to p.o. Synthroid ordered Patient was dialyzed 05/24, will dialyze today Will adjust blood pressure medication Per orders 2. Dr. Townsend to call urologist the catheter again yet to talk to the person was put in the disc note thank you very much by Subjective ROS Limited/Unobtainable: No Constitutional: Reports: malaise Objective Objective Last 24 Hour Vital Signs Date Time Temp Pulse Resp B/P (MAP) Pulse Ox O2 Delivery O2 Flow Rate FiO2 06/07/20 09:49 83 17 128/67 93 06/07/20 09:19 83 17 128/67 93 06/07/20 09:14 83 128/67 06/07/20 09:00 Room Air 06/07/20 08:00 97.9 83 17 128/67 (87) 93 06/07/20 05:35 147/64 06/07/20 04:03 97.4 84 18 147/64 (91) 97 06/06/20 23:53 98.6 82 20 142/66 (91) 96 06/06/20 22:08 90 18 140/79 97 06/06/20 21:57 142/80 06/06/20 21:38 110 18 142/80 96 06/06/20 20:36 Room Air 06/06/20 20:00 98.4 110 18 142/80 (100) 96 06/06/20 15:47 98.2 83 19 138/66 (90) 94 06/06/20 13:10 152/79 Intake and Output0 06/06/20 06/07/20 19:00 07:00 Intake Total 775 ml 600 ml Balance 775 ml 600 ml Intake Oral 720 ml 600 ml IV Total 55 ml # Bowel Movements 1 2 Current Medications Medications (Trade) Dose Ordered Sig/Rochelle Route PRN Reason Start Time Stop Time Status Last Admin Dose Admin Acetaminophen (Tylenol) 650 mg Q6H PRN ORAL Temp >100.5 05/27/20 18:00 06/26/20 17:59 05/29/20 22:27 Acetaminophen/ Hydrocodone Bitart ([place] 10) 1 tab Q4H PRN ORAL Moderate Pain (4-6) 06/05/20 12:00 06/12/20 11:59 Amlodipine Besylate (Norvasc) 10 mg DAILY ORAL 05/24/20 16:00 06/23/20 15:59 06/07/20 09:14 Cefazolin Sodium 1 gm/Dextrose 55 ml @ 110 mls/hr DAILY IVPB 06/06/20 09:00 06/13/20 08:59 06/07/20 09:14 Diphenhydramine HCl (Benadryl) 25 mg Q6H PRN ORAL Itching 05/25/20 08:30 06/24/20 08:29 06/06/20 23:32 Docusate Sodium (Colace) 100 mg TID ORAL 05/25/20 13:00 06/23/20 17:59 06/07/20 12:17 Epoetin Jose (Epoetin Jose(ESRD on dialysis)) 10,000 unit FRI-FRI-FRI SUBQ 05/26/20 21:00 08/24/20 20:59 06/05/20 20:42 Heparin Sodium (Porcine) (Heparin 5000 units/ml) 5,000 units EVERY 12 HOURS SUBQ 05/24/20 21:00 07/08/20 20:59 06/05/20 20:48 Hydralazine HCl (Apresoline) 25 mg Q6H PRN ORAL For High Blood Pressure 05/24/20 16:00 08/22/20 15:59 05/31/20 01:50 Hydralazine HCl (Apresoline) 75 mg EVERY 8 HOURS ORAL 05/31/20 14:00 08/29/20 13:59 06/07/20 05:35 Hydromorphone HCl (Dilaudid) 0.5 mg Q6H PRN IVP Severe Pain (Pain Scale 7-10) 06/06/20 09:34 06/13/20 09:33 06/07/20 11:40 Hydroxyzine HCl (Atarax) 25 mg Q8H ORAL 05/27/20 20:30 06/26/20 20:29 06/07/20 12:16 Levothyroxine Sodium (Synthroid) 75 mcg Q24H ORAL 05/27/20 06:30 06/26/20 06:29 06/07/20 05:36 Lidocaine HCl (Xylocaine Viscous) 15 ml Q4H PRN ORAL For Pain 05/31/20 18:15 08/29/20 18:14 Lorazepam (Ativan) 1 mg Q6H PRN ORAL For Anxiety 06/05/20 10:00 06/12/20 09:59 06/07/20 09:19 Nitroglycerin (Ntg) 0.4 mg Q5M PRN SL Prn Chest Pain 05/24/20 10:45 06/23/20 10:44 Ondansetron HCl (Zofran) 4 mg Q6H PRN IVP Nausea & Vomiting 05/24/20 16:00 06/23/20 15:59 Pantoprazole (Protonix) 40 mg BID ORAL 05/29/20 18:00 06/25/20 08:59 06/07/20 09:14 Patient Own Medication (Patient's Own Med) 1 ea BID ORAL 05/30/20 18:00 06/29/20 17:59 06/07/20 09:14 Patient Own Medication (Patient's Own Med) 1 ea BID ORAL 05/30/20 18:00 06/29/20 17:59 06/07/20 09:15 Patient Own Medication (Patient's Own Med) 1 ea DAILY ORAL 05/31/20 09:00 06/30/20 08:59 06/07/20 09:15 Sodium Chloride 1,000 ml @ 500 mls/hr Q2H PRN IVLG sbp<90 during hd 05/25/20 17:30 06/24/20 17:29 Height (Feet): 5 Height (Inches): 5.00 Weight (Pounds): 160 General Appearance: no apparent distress Cardiovascular: normal rate Abdomen: soft Objective No change Jack Pryor MD Jun 07, 2020 12:34
[2020-06-07 16:00] VITALS: BP 133/60
[2020-06-07 20:00] VITALS: BP 142/70
[2020-06-07] MEDS: Epoetin Alfa-EPBX(ESRD on dialysis)10,000 unit/ml vial SUBQ SCH (20:42)
--- NOTE | 2020-06-07 23:01 | Cardiology Progress Note ---
Subjective DATE OF SERVICE: Jun 07, 2020 Jame cath placed for HD on 06/02/20; prior PermCath removed. Blood cultures positive for S.aureus (MSSA). Still c/o pain and frequently asking for more pain medications; appears comfortable however. No CP or SOB BP range stable overall, with fewer BP elevations noted. Objective Last 24 Hour Vital Signs Date Time Temp Pulse Resp B/P (MAP) Pulse Ox O2 Delivery O2 Flow Rate FiO2 06/07/20 21:11 81 18 143/75 95 06/07/20 21:00 Room Air 06/07/20 20:41 86 18 142/70 95 06/07/20 20:00 98.2 86 20 142/70 (94) 95 06/07/20 16:00 98.4 84 18 133/60 (84) 95 06/07/20 13:26 155/75 06/07/20 12:00 97.7 84 17 155/75 (101) 96 06/07/20 09:49 83 17 128/67 93 06/07/20 09:19 83 17 128/67 93 06/07/20 09:14 83 128/67 06/07/20 09:00 Room Air 06/07/20 08:00 97.9 83 17 128/67 (87) 93 06/07/20 05:35 147/64 06/07/20 04:03 97.4 84 18 147/64 (91) 97 06/06/20 23:53 98.6 82 20 142/66 (91) 96 ROS: unchanged from my evaluation of 05/24/20 RHYTHM: NSR, SB, PACs LUNGS: lungs clear bilaterally, other - jame cath CARDIAC: normal rate, regular rhythm, normal S1 and S2, gallop/S4 ABDOMEN: non tender, soft, no organomegaly, no mass EXTREMITIES: No edema, other - skin wound per nursing documentation Assessment/Plan Assessment/Plan Fevers - due to line infection. No increased endocarditis risk noted by 2D Echo criteria. Acute on chronic Diastolic CHF Hypertensive urgency - resolved; BP range minimally elevated at times ESRD - with history of frequently missed dialysis sessions as outpatient. Anginal episode precipitated by above; no recurrence since admission. HHD Sinus node disease with hx of tachy-alysa syndrome; patient has refused pacemaker in past. Chronic cocaine abuse Buttocks wound PermCath once cleared by ID. Antimicrobials per ID HD/UF Titrate antiHTN and anti-failure regimen as needed. Counselled repeatedly regarding cocaine use Skin care Symptom-guided pain control Nam Barnett MD Jun 07, 2020 23:00
[2020-06-08] VITALS: BP 138/67
[2020-06-08] MEDS: LORazepam 1mg tab ORAL PRN ×3 (02:43→21:24)
[2020-06-08 04:00] VITALS: BP 143/67
[2020-06-08] MEDS: HydrOXYzine tab 25mg tab ORAL SCH ×3 (05:29→21:24)
[2020-06-08] MEDS: HydrALAZINE 25mg tab ORAL SCH ×3 (05:29→21:23)
[2020-06-08] MEDS: Hydromorphone 0.5mg/0.5ml inj IVP PRN ×4 (05:30→23:30)
[2020-06-08 08:00] VITALS: BP 149/74
--- NOTE | 2020-06-08 08:34 | General Progress Note ---
Subjective ROS Limited/Unobtainable: No Constitutional: Reports: malaise, weakness HEENT: Reports: no symptoms Cardiovascular: Reports: no symptoms Respiratory: Reports: cough Gastrointestinal/Abdominal: Reports: abdominal pain, nausea Genitourinary: Reports: no symptoms Neurologic/Psychiatric: Reports: no symptoms Endocrine: Reports: no symptoms Hematologic/Lymphatic: Reports: anemia Allergies: Coded Allergies: ASPIRIN (Unverified Allergy, Unknown, 01/16/20) IODINE (Verified Allergy, Unknown, 01/07/20) Uncoded Allergies: CONTRAST DYE (Allergy, Unknown, 01/07/20) NSAID (Allergy, Unknown, 04/24/20) All Systems: reviewed and negative except above Subjective no events. c/o vaginal discharge. no fevers or chills. mild abd pain. no fevers or chills. no sob. no nausea or vomiting. Objective Last 24 Hour Vital Signs Date Time Temp Pulse Resp B/P (MAP) Pulse Ox O2 Delivery O2 Flow Rate FiO2 06/08/20 05:29 143/67 06/08/20 04:00 97.7 82 16 143/67 (92) 96 06/08/20 03:13 78 17 141/70 97 06/08/20 02:43 78 16 138/67 96 06/08/20 00:00 97.3 78 16 138/67 (90) 96 06/07/20 23:34 143/75 06/07/20 21:11 81 18 143/75 95 06/07/20 21:00 Room Air 06/07/20 20:41 86 18 142/70 95 06/07/20 20:00 98.2 86 20 142/70 (94) 95 06/07/20 16:00 98.4 84 18 133/60 (84) 95 06/07/20 13:26 155/75 06/07/20 12:00 97.7 84 17 155/75 (101) 96 06/07/20 09:49 83 17 128/67 93 06/07/20 09:19 83 17 128/67 93 06/07/20 09:14 83 128/67 06/07/20 09:00 Room Air Intake and Output 06/07/20 06/08/20 19:00 07:00 Intake Total 600 ml 550 ml Balance 600 ml 550 ml Intake Oral 600 ml 550 ml # Bowel Movements 2 Height (Feet): 5 Height (Inches): 5.00 Weight (Pounds): 160 Objective General Appearance: WD/WN, alert, mild distress, agitated EENT: normal ENT inspection. 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, alert, responsive Skin: other - ?abrasion between buttocks Assessment/Plan Problem List: (1) Hypertensive urgency ICD Codes: I16.0 - Hypertensive urgency SNOMED: 860653089 (2) HIV disease ICD Codes: B20 - Human immunodeficiency virus [HIV] disease SNOMED: 49846128 (3) CHF (congestive heart failure), NYHA class II ICD Codes: I50.9 - Heart failure, unspecified SNOMED: 010990101, 091183950 (4) ESRD (end stage renal disease) on dialysis ICD Codes: N18.6 - End stage renal disease; Z99.2 - Dependence on renal dialysis SNOMED: 970730351 (5) Substance abuse ICD Codes: F19.10 - Other psychoactive substance abuse, uncomplicated SNOMED: 19972770 Status: stable, progressing Assessment/Plan: iv abx per ID HD per renal echo wound care tylenol for fever dvt/stress ulcer prophylaxis pain rx and anxiolytics as needed. +hx of opioid use do. iv decreased HD per renal perm cath when cleared by ID consider vascular eval for AVF cont pain rx and anxiolytics dvt/stress ulcer prophylaxis out of bed psych consult consider registered medical transcriptionist eval- ?empiric rx for bacterial vaginosis Michael Peralta MD Jun 08, 2020 08:34
[2020-06-08] MEDS: ceFAZolin sod 1 GM in D5W 55 ML IVPB SCH (09:00)
[2020-06-08] MEDS: Docusate 100mg cap ORAL SCH ×3 (09:00→17:31)
[2020-06-08] MEDS: Heparin 5000 units/ml inj SUBQ SCH ×2 (09:02→21:25)
[2020-06-08] MEDS: Patient's Own Med - Ritonavir 100mg ORAL SCH ×2 (09:27→17:31)
[2020-06-08] MEDS: Patient's Own Med - Tivicay 50mg ORAL SCH (09:27)
[2020-06-08 12:00] VITALS: BP 141/83
--- NOTE | 2020-06-08 12:21 | Nephrology Progress Note ---
Assessment/Plan Problem List: (1) ESRD (end stage renal disease) on dialysis (2) HIV disease (3) HCV antibody positive (4) Hypertensive urgency (5) Substance abuse Assessment Patient admitted with hypertensive urgency (1) ESRD (end stage renal disease) on dialysis (2) HIV disease (3) Cocaine abuse (4) Noncompliance (5) Anemia of chronic kidney disease Plan June 08: Tunnel catheter was not placed pending ID clearance. Due for dialysis today. Labs reviewed. Continue per consultants. June 07: Patient due for placement of tunneled catheter. Patient due for dialysis tomorrow. After insertion of the tunneled catheter patient can be discharged from a renal standpoint of view and continue outpatient dialysis Friday. June 06: Due for dialysis today. Last blood cultures available is from June 01. Waiting for negative blood cultures for 48 hours to proceed with placement of tunneled catheter and then discharge. June 05: Dialyzed yesterday. Due for dialysis tomorrow. Surveillance blood cultures are done. When negative for 48 hours, will proceed with placement of tunneled catheter and discharge. June 04: Due for dialysis today. We will continue to follow blood cultures. Antibiotic for bacteremia in process. Will place tunneled catheter when patient is culture negative for 48 hours. CRP lowering. June 03: Patient had dialysis yesterday. Has a nontunneled dialysis access. Surveillance blood cultures pending. Will do dialysis tomorrow June 04. Will check lab tomorrow. June 02: Patient continues to have persistent bacteremia. Due for nontunneled dialysis catheter today. Will be dialyzed after insertion of the catheter today as her last dialysis was 3 days ago. Continue per consultants. June 01: Dialysis catheter removed May 31. Labs reviewed. Discussed with RN. Will arrange for placement of a nontunneled dialysis catheter tomorrow. We will continue to order surveillance blood cultures. When blood cultures are negative will attempt to put a tunneled catheter prior to discharge. Continue per orders. May 31: Status quo. Dialyzed yesterday. I are will remove the permacath today. Tip will be sent for culture. Surveillance blood culture ordered for today again. CRP lower today. Continue to monitor electrolytes and renal parameters. May 30: Low-grade fever persists. Due for dialysis today. As per ID recommendation will discontinue the dialysis catheter which may be the source of fever and bacteremia. Discussed with RN. Orders given. Will check labs tomorrow. May 29: Patient remains febrile. Nontoxic. Dialyzed yesterday. Next dialysis tomorrow. Preliminary blood cultures positive for gram-positive's. Most likely source dialysis catheter. CRP jumped up to 14. Continue per ID advice. Keep the blood pressure and blood sugar in check. Will obtain repeated blood culture tomorrow during dialysis. Patient on vancomycin. May 28: Patient febrile. Cultures taken during dialysis. Vancomycin 1 dose given. Will check labs tomorrow. A temporary catheter may need to be discontinued and replaced if blood cultures positive. Continue per consultants. May 27: Patient in mild distress due to itching and generalized pain. Was dialyzed yesterday. Will dialyze again tomorrow. Will start on Atarax [id number] for itching. Labs reviewed, medications reviewed and adjusted. B12 subcu and to p.o. Synthroid ordered Patient was dialyzed 05/24, will dialyze today Will adjust blood pressure medication Per orders 2. Dr. Townsend to call urologist the catheter again yet to talk to the person was put in the disc note thank you very much by Subjective ROS Limited/Unobtainable: No Constitutional: Reports: malaise Objective Objective Last 24 Hour Vital Signs Date Time Temp Pulse Resp B/P (MAP) Pulse Ox O2 Delivery O2 Flow Rate FiO2 06/08/20 09:31 95 19 147/70 94 06/08/20 09:01 108 19 149/74 93 06/08/20 09:00 108 149/74 06/08/20 09:00 Room Air 06/08/20 08:00 98.1 108 19 149/74 (99) 93 06/08/20 05:29 143/67 06/08/20 04:00 97.7 82 16 143/67 (92) 96 06/08/20 03:13 78 17 141/70 97 06/08/20 02:43 78 16 138/67 96 06/08/20 00:00 97.3 78 16 138/67 (90) 96 06/07/20 23:34 143/75 06/07/20 21:11 81 18 143/75 95 06/07/20 21:00 Room Air 06/07/20 20:41 86 18 142/70 95 06/07/20 20:00 98.2 86 20 142/70 (94) 95 11/4/20 16:00 98.4 84 18 133/60 (84) 95 06/07/20 13:26 155/75 Intake and Output 06/07/20 06/08/20 19:00 07:00 Intake Total 600 ml 550 ml Balance 600 ml 550 ml Intake Oral 600 ml 550 ml # Bowel Movements 2 No labs drawn today Height (Feet): 5 Height (Inches): 5.00 Weight (Pounds): 160 General Appearance: no apparent distress Cardiovascular: tachycardia Respiratory/Chest: lungs clear Objective No change Jack Pryor MD Jun 08, 2020 12:21
--- NOTE | 2020-06-08 12:37 | Infectious Diseases Prog Note ---
Assessment/Plan Assessment/Plan A 1. Staph aureus sepsis, MSSA 2. ESRD on HD 3. HIV 4. Hypertension 5. COVID 19 negative x 2 6. E. coli & Proteus UTI 9: Catheter tip culture: proteus P 1. Continue Ancef 2. Will f/u cultures Subjective ROS Limited/Unobtainable: No Constitutional: Reports: no symptoms Respiratory: Reports: no symptoms Cardiovascular: Reports: no symptoms Gastrointestinal/Abdominal: Reports: no symptoms Allergies: Coded Allergies: ASPIRIN (Unverified Allergy, Unknown, 01/16/20) IODINE (Verified Allergy, Unknown, 01/07/20) Uncoded Allergies: CONTRAST DYE (Allergy, Unknown, 01/07/20) NSAID (Allergy, Unknown, 04/24/20) Objective Last 24 Hour Vital Signs Date Time Temp Pulse Resp B/P (MAP) Pulse Ox O2 Delivery O2 Flow Rate FiO2 06/08/20 12:04 98.1 06/08/20 09:31 95 19 147/70 94 06/08/20 09:01 108 19 149/74 93 06/08/20 09:00 108 149/74 06/08/20 09:00 Room Air 06/08/20 08:00 98.1 108 19 149/74 (99) 93 06/08/20 05:29 143/67 06/08/20 04:00 97.7 82 16 143/67 (92) 96 06/08/20 03:13 78 17 141/70 97 06/08/20 02:43 78 16 138/67 96 06/08/20 00:00 97.3 78 16 138/67 (90) 96 06/07/20 23:34 143/75 06/07/20 21:11 81 18 143/75 95 06/07/20 21:00 Room Air 06/07/20 20:41 86 18 142/70 95 06/07/20 20:00 98.2 86 20 142/70 (94) 95 06/07/20 16:00 98.4 84 18 133/60 (84) 95 06/07/20 13:26 155/75 Height (Feet): 5 Height (Inches): 5.00 Weight (Pounds): 160 General Appearance: no acute distress HEENT: mucous membranes moist Respiratory/Chest: lungs clear Cardiovascular: normal rate, other - Left IJ HD line Abdomen: soft, non tender Extremities: no edema Neurologic/Psychiatric: alert, responsive Current Medications Medications (Trade) Dose Ordered Sig/Rochelle Route PRN Reason Start Time Stop Time Status Last Admin Dose Admin Acetaminophen (Tylenol) 650 mg Q6H PRN ORAL Temp >100.5 05/27/20 18:00 06/26/20 17:59 05/29/20 22:27 Acetaminophen/ Hydrocodone Bitart ([place] 10/325) 1 tab Q4H PRN ORAL Moderate Pain (4-6) 06/05/20 12:00 06/12/20 11:59 Amlodipine Besylate (Norvasc) 10 mg DAILY ORAL 05/24/20 16:00 06/23/20 15:59 06/07/20 09:14 Cefazolin Sodium 1 gm/Dextrose 55 ml @ 110 mls/hr DAILY IVPB 06/06/20 09:00 06/13/20 08:59 06/08/20 09:00 Diphenhydramine HCl (Benadryl) 25 mg Q6H PRN ORAL Itching 05/25/20 08:30 06/24/20 08:29 06/08/20 02:42 Docusate Sodium (Colace) 100 mg TID ORAL 05/25/20 13:00 06/23/20 17:59 06/08/20 12:22 Epoetin Jose (Epoetin Jose(ESRD on dialysis)) 10,000 unit FRI-FRI-FRI SUBQ 05/26/20 21:00 08/24/20 20:59 06/07/20 20:42 Heparin Sodium (Porcine) (Heparin 5000 units/ml) 5,000 units EVERY 12 HOURS SUBQ 05/24/20 21:00 07/08/20 20:59 06/08/20 09:02 Hydralazine HCl (Apresoline) 25 mg Q6H PRN ORAL For High Blood Pressure 05/24/20 16:00 08/22/20 15:59 05/31/20 01:50 Hydralazine HCl (Apresoline) 75 mg EVERY 8 HOURS ORAL 05/31/20 14:00 08/29/20 13:59 06/08/20 05:29 Hydromorphone HCl (Dilaudid) 0.5 mg Q6H PRN IVP Severe Pain (Pain Scale 7-10) 06/06/20 09:34 06/13/20 09:33 06/08/20 11:34 Hydroxyzine HCl (Atarax) 25 mg Q8H ORAL 05/27/20 20:30 06/26/20 20:29 06/08/20 12:22 Levothyroxine Sodium (Synthroid) 75 mcg Q24H ORAL 05/27/20 06:30 06/26/20 06:29 06/08/20 05:35 Lidocaine HCl (Xylocaine Viscous) 15 ml Q4H PRN ORAL For Pain 05/31/20 18:15 08/29/20 18:14 Lorazepam (Ativan) 1 mg Q6H PRN ORAL For Anxiety 06/05/20 10:00 06/12/20 09:59 06/08/20 09:01 Nitroglycerin (Ntg) 0.4 mg Q5M PRN SL Prn Chest Pain 05/24/20 10:45 06/23/20 10:44 Ondansetron HCl (Zofran) 4 mg Q6H PRN IVP Nausea & Vomiting 05/24/20 16:00 06/23/20 15:59 06/08/20 09:00 Pantoprazole (Protonix) 40 mg BID ORAL 05/29/20 18:00 06/25/20 08:59 06/08/20 09:00 Patient Own Medication (Patient's Own Med) 1 ea BID ORAL 05/30/20 18:00 06/29/20 17:59 06/08/20 09:27 Patient Own Medication (Patient's Own Med) 1 ea BID ORAL 05/30/20 18:00 06/29/20 17:59 06/08/20 09:27 Patient Own Medication (Patient's Own Med) 1 ea DAILY ORAL 05/31/20 09:00 06/30/20 08:59 06/08/20 09:27 Sodium Chloride 1,000 ml @ 500 mls/hr Q2H PRN IVLG sbp<90 during hd 05/25/20 17:30 06/24/20 17:29 Armando Brown MD Jun 08, 2020 12:37
[2020-06-08 16:00] VITALS: BP 129/64
[2020-06-08 20:00] VITALS: BP 147/78
[2020-06-09] VITALS (16 sets, daily range): BP systolic 125–149; BP diastolic 62–77
--- NOTE | 2020-06-09 00:40 | Cardiology Progress Note ---
Subjective DATE OF SERVICE: Jun 08, 2020 Jame cath placed for HD on 06/02/20; prior PermCath removed. Blood cultures positive for S.aureus (MSSA); patient remains on IV antibiotics. Still c/o pain and frequently asking for more pain medications; still appears comfortable. No CP or SOB BP range stable overall, with fewer BP elevations noted. Objective Last 24 Hour Vital Signs Date Time Temp Pulse Resp B/P (MAP) Pulse Ox O2 Delivery O2 Flow Rate FiO2 06/09/20 00:00 98.9 94 18 145/77 (99) 94 06/08/20 21:54 89 18 135/76 95 06/08/20 21:24 102 18 147/78 94 06/08/20 21:23 147/78 06/08/20 21:00 Room Air 06/08/20 20:00 98.8 102 18 147/78 (101) 94 06/08/20 16:00 98.0 84 18 129/64 (85) 93 06/08/20 14:00 141/83 06/08/20 12:04 98.1 06/08/20 12:00 98.2 80 17 141/83 (102) 94 06/08/20 09:31 95 19 147/70 94 06/08/20 09:01 108 19 149/74 93 06/08/20 09:00 108 149/74 06/08/20 09:00 Room Air 06/08/20 08:00 98.1 108 19 149/74 (99) 93 06/08/20 05:29 143/67 06/08/20 04:00 97.7 82 16 143/67 (92) 96 06/08/20 03:13 78 17 141/70 97 06/08/20 02:43 78 16 138/67 96 ROS: unchanged from my evaluation of 05/24/20 RHYTHM: NSR, SB, PACs LUNGS: lungs clear bilaterally, other - jame cath CARDIAC: normal rate, regular rhythm, normal S1 and S2, gallop/S4 ABDOMEN: non tender, soft, no organomegaly, no mass EXTREMITIES: No edema, other - skin wound per nursing documentation Assessment/Plan Assessment/Plan Fevers - due to line infection. No increased endocarditis risk noted by 2D Echo criteria. Acute on chronic Diastolic CHF Hypertensive urgency - resolved; BP range minimally elevated at times ESRD - with history of frequently missed dialysis sessions as outpatient. Anginal episode precipitated by above; no recurrence since admission. HHD Sinus node disease with hx of tachy-alysa syndrome; patient has refused pacema ker in past. Chronic cocaine abuse Buttocks wound PermCath once cleared by ID. Antimicrobials per ID HD/UF Titrate antiHTN and anti-failure regimen as needed. Counselled repeatedly regarding cocaine use Skin care Symptom-guided pain control Nam Barnett MD Jun 09, 2020 00:40
[2020-06-09] MEDS: HydrOXYzine tab 25mg tab ORAL SCH ×3 (05:38→21:20)
[2020-06-09] MEDS: Hydromorphone 0.5mg/0.5ml inj IVP PRN ×4 (05:38→23:48)
[2020-06-09] MEDS: LORazepam 1mg tab ORAL PRN ×3 (05:39→23:49)
[2020-06-09] MEDS: HydrALAZINE 25mg tab ORAL SCH ×3 (05:39→21:21)
[2020-06-09 07:58] LABS: BASOPHILS % (AUTO) 1.1 % (0.0-2.0); EOSINOPHILS % (AUTO) 3.9 % (0.0-3.0); HEMATOCRIT 29.9 % (37.0-47.0); HEMOGLOBIN 9.3 G/DL (12.0-16.0); LYMPHOCYTES % (AUTO) 15.7 % (20.0-45.0); MEAN CORPUSCULAR VOLUME 94 FL (80-99); MONOCYTES % (AUTO) 8.3 % (1.0-10.0); NEUTROPHILS % (AUTO) 71.1 % (45.0-75.0); PLATELET COUNT 230 K/UL (150-450); RED BLOOD COUNT 3.19 M/UL (4.20-5.40); RED CELL DISTRIBUTION WIDTH 17.9 % (11.6-14.8); WHITE BLOOD COUNT 5.6 K/UL (4.8-10.8)
[2020-06-09 08:29] LABS: ALANINE AMINOTRANSFERASE < 6 U/L (12-78); ALBUMIN 2.7 G/DL (3.4-5.0); ALBUMIN/GLOBULIN RATIO 0.5 (1.0-2.7); ALKALINE PHOSPHATASE 100 U/L (46-116); ANION GAP 7 mmol/L (5-15); ASPARTATE AMINO TRANSFERASE 47 U/L (15-37); BILIRUBIN,TOTAL 0.3 MG/DL (0.2-1.0); BLOOD UREA NITROGEN 15 mg/dL (7-18); CARBON DIOXIDE 33 MMOL/L (21-32); CHLORIDE 100 MMOL/L (98-107); CREATININE 5.6 MG/DL (0.55-1.30); PHOSPHORUS 3.5 MG/DL (2.5-4.9); POTASSIUM 3.4 MMOL/L (3.5-5.1); SODIUM 139 MMOL/L (136-145)
[2020-06-09] MEDS: Docusate 100mg cap ORAL SCH ×3 (08:48→17:41)
[2020-06-09] MEDS: Patient's Own Med - Tivicay 50mg ORAL SCH (08:49)
[2020-06-09] MEDS: ceFAZolin sod 1 GM in D5W 55 ML IVPB SCH (08:49)
[2020-06-09] MEDS: Heparin 5000 units/ml inj SUBQ SCH ×2 (08:50→21:29)
[2020-06-09] MEDS: Patient's Own Med - Ritonavir 100mg ORAL SCH ×2 (08:51→17:41)
--- NOTE | 2020-06-09 09:13 | General Progress Note ---
Subjective ROS Limited/Unobtainable: No Constitutional: Reports: malaise, weakness HEENT: Reports: no symptoms Respiratory: Reports: cough, shortness of breath, sputum Gastrointestinal/Abdominal: Reports: no symptoms Genitourinary: Reports: no symptoms Neurologic/Psychiatric: Reports: pre-existing deficit Endocrine: Reports: no symptoms Hematologic/Lymphatic: Reports: anemia Allergies: Coded Allergies: ASPIRIN (Unverified Allergy, Unknown, 01/16/20) IODINE (Verified Allergy, Unknown, 01/07/20) Uncoded Allergies: CONTRAST DYE (Allergy, Unknown, 01/07/20) NSAID (Allergy, Unknown, 04/24/20) All Systems: reviewed and negative except above Subjective no events. c/o vaginal discharge. no fevers or chills. mild abd pain. no fevers or chills. no sob. no nausea or vomiting. Objective Last 24 Hour Vital Signs Date Time Temp Pulse Resp B/P (MAP) Pulse Ox O2 Delivery O2 Flow Rate FiO2 06/09/20 08:49 83 136/65 06/09/20 06:09 82 18 145/78 94 06/09/20 06:08 98.9 06/09/20 05:39 86 18 149/76 95 06/09/20 05:39 149/76 06/09/20 04:00 98.4 83 18 149/63 (91) 94 06/09/20 00:00 98.9 94 18 145/77 (99) 94 06/08/20 21:54 89 18 135/76 95 06/08/20 21:24 102 18 147/78 94 06/08/20 21:23 147/78 06/08/20 21:00 Room Air 06/08/20 20:00 98.8 102 18 147/78 (101) 94 06/08/20 16:00 98.0 84 18 129/64 (85) 93 06/08/20 14:00 141/83 06/08/20 12:04 98.1 06/08/20 12:00 98.2 80 17 141/83 (102) 94 06/08/20 09:31 95 19 147/70 94 Intake and Output 06/08/20 06/09/20 19:00 07:00 Intake Total 360 ml Output Total 3000 ml Balance -3000 ml 360 ml Intake Oral 360 ml Hemodialysis UF 3000 ml # Bowel Movements 2 Laboratory Tests 06/09/20 07:00: White Blood Count 5.6, Red Blood Count 3.19L, Hemoglobin 9.3L, Hematocrit 29.9L, Mean Corpuscular Volume 94, Mean Corpuscular Hemoglobin 29.0, Mean Corpuscular Hemoglobin Concent 31.0L, Red Cell Distribution Width 17.9H, Platelet Count 230, Mean Platelet Volume 5.8L, Neutrophils (%) (Auto) 71.1, Lymphocytes (%) (Auto) 15.7L, Monocytes (%) (Auto) 8.3, Eosinophils (%) (Auto) 3.9H, Basophils (%) (Auto) 1.1, Sodium Level 139, Potassium Level 3.4L, Chloride Level 100, Carbon Dioxide Level 33H, Anion Gap 7, Blood Urea Nitrogen 15, Creatinine 5.6H, Estimat Glomerular Filtration Rate 9.2, Glucose Level 120H, Calcium Level 8.0L, Phosphorus Level 3.5, Magnesium Level 2.2, Total Bilirubin 0.3, Aspartate Amino Transf (AST/SGOT) 47H, Alanine Aminotransferase (ALT/SGPT) < 6L, Alkaline Phosp hatase 100, C-Reactive Protein, Quantitative 0.9, Pro-B-Type Natriuretic Peptide > 02075X, Total Protein 7.9, Albumin 2.7L, Globulin 5.2, Albumin/Globulin Ratio 0.5L Height (Feet): 5 Height (Inches): 5.00 Weight (Pounds): 160 Objective General Appearance: WD/WN, alert, mild distress, agitated EENT: normal ENT inspection. +left neck HD catheter Neck: non-tender, normal alignment, supple Cardiovascular: normal peripheral pulses, normal rate, regular rhythm Respiratory/Chest: chest wall non-tender, lungs clear, normal breath sounds, no respiratory distress Abdomen: normal bowel sounds, non tender, soft, no organomegaly Edema: no edema noted Arm (L), no edema noted Arm (R) Neurologic: pen rider II-XII grossly normal, alert, responsive Skin: other - ?abrasion between buttocks Assessment/Plan Problem List: (1) Hypertensive urgency ICD Codes: I16.0 - Hypertensive urgency SNOMED: 511958808 (2) HIV disease ICD Codes: B20 - Human immunodeficiency virus [HIV] disease SNOMED: 08435901 (3) CHF (congestive heart failure), NYHA class II ICD Codes: I50.9 - Heart failure, unspecified SNOMED: 973240722, 962164524 (4) ESRD (end stage renal disease) on dialysis ICD Codes: N18.6 - End stage renal disease; Z99.2 - Dependence on renal dialysis SNOMED: 185262234 (5) Substance abuse ICD Codes: F19.10 - Other psychoactive substance abuse, uncomplicated SNOMED: 40561151 Status: stable, progressing Assessment/Plan: iv abx per ID HD per renal echo wound care tylenol for fever dvt/stress ulcer prophylaxis pain rx and anxiolytics as needed. +hx of opioid use do. iv decreased HD per renal perm cath when cleared by ID cont pain rx and anxiolytics dvt/stress ulcer prophylaxis out of bed psych consult consider [facility] man eval- ?empiric rx for bacterial vaginosis Michael Peralta MD Jun 09, 2020 09:13
--- NOTE | 2020-06-09 09:55 | Nephrology Progress Note ---
Assessment/Plan Problem List: (1) ESRD (end stage renal disease) on dialysis (2) HIV disease (3) HCV antibody positive (4) Hypertensive urgency (5) Substance abuse Assessment Patient admitted with hypertensive urgency (1) ESRD (end stage renal disease) on dialysis (2) HIV disease (3) Cocaine abuse (4) Noncompliance (5) Anemia of chronic kidney disease Plan June 09: Still waiting for placement of ID clearance for tunneled catheter placement. Due for dialysis tomorrow. Labs reviewed. Medication list reviewed. June 08: Tunnel catheter was not placed pending ID clearance. Due for dialysis today. Labs reviewed. Continue per consultants. June 07: Patient due for placement of tunneled catheter. Patient due for dialysis tomorrow. After insertion of the tunneled catheter patient can be discharged from a renal standpoint of view and continue outpatient dialysis Friday. June 06: Due for dialysis today. Last blood cultures available is from June 01. Waiting for negative blood cultures for 48 hours to proceed with placement of tunneled catheter and then discharge. June 05: Dialyzed yesterday. Due for dialysis tomorrow. Surveillance blood cultures are done. When negative for 48 hours, will proceed with placement of tunneled catheter and discharge. June 04: Due for dialysis today. We will continue to follow blood cultures. Antibiotic for bacteremia in process. Will place tunneled catheter when patient is culture negative for 48 hours. CRP lowering. June 03: Patient had dialysis yesterday. Has a nontunneled dialysis access. Surveillance blood cultures pending. Will do dialysis tomorrow June 04. Will check lab tomorrow. June 02: Patient continues to have persistent bacteremia. Due for nontunneled dialysis catheter today. Will be dialyzed after insertion of the catheter today as her last dialysis was 3 days ago. Continue per consultants. June 01: Dialysis catheter removed May 31. Labs reviewed. Discussed with RN. Will arrange for placement of a nontunneled dialysis catheter tomorrow. We will continue to order surveillance blood cultures. When blood cultures are negative will attempt to put a tunneled catheter prior to discharge. Continue per orders. May 31: Status quo. Dialyzed yesterday. I are will remove the permacath today. Tip will be sent for culture. Surveillance blood culture ordered for today again. CRP lower today. Continue to monitor electrolytes and renal parameters. May 30: Low-grade fever persists. Due for dialysis today. As per ID recommendation will discontinue the dialysis catheter which may be the source of fever and bacteremia. Discussed with RN. Orders given. Will check labs tomorrow. May 29: Patient remains febrile. Nontoxic. Dialyzed yesterday. Next dialysis tomorrow. Preliminary blood cultures positive for gram-positive's. Most likely source dialysis catheter. CRP jumped up to 14. Continue per ID ad vice. Keep the blood pressure and blood sugar in check. Will obtain repeated blood culture tomorrow during dialysis. Patient on vancomycin. May 28: Patient febrile. Cultures taken during dialysis. Vancomycin 1 dose given. Will check labs tomorrow. A temporary catheter may need to be discontinued and replaced if blood cultures positive. Continue per consultants. May 27: Patient in mild distress due to itching and generalized pain. Was dialyzed yesterday. Will dialyze again tomorrow. Will start on Atarax [id number] for itching. Labs reviewed, medications reviewed and adjusted. B12 subcu and to p.o. Synthroid ordered Patient was dialyzed 05/24, will dialyze today Will adjust blood pressure medication Per orders 2. Dr. Townsend to call urologist the catheter again yet to talk to the person was put in the disc note thank you very much by Subjective ROS Limited/Unobtainable: No Constitutional: Reports: malaise Objective Objective Last 24 Hour Vital Signs Date Time Temp Pulse Resp B/P (MAP) Pulse Ox O2 Delivery O2 Flow Rate FiO2 06/09/20 08:49 83 136/65 06/09/20 06:09 82 18 145/78 94 06/09/20 06:08 98.9 06/09/20 05:39 86 18 149/76 95 06/09/20 05:39 149/76 06/09/20 04:00 98.4 83 18 149/63 (91) 94 06/09/20 00:00 98.9 94 18 145/77 (99) 94 06/08/20 21:54 89 18 135/76 95 06/08/20 21:24 102 18 147/78 94 06/08/20 21:23 147/78 06/08/20 21:00 Room Air 06/08/20 20:00 98.8 102 18 147/78 (101) 94 06/08/20 16:00 98.0 84 18 129/64 (85) 93 06/08/20 14:00 141/83 06/08/20 12:04 98.1 06/08/20 12:00 98.2 80 17 141/83 (102) 94 Intake and Output 06/08/20 06/09/20 19:00 07:00 Intake Total 360 ml Output Total 3000 ml Balance -3000 ml 360 ml Intake Oral 360 ml Hemodialysis UF 3000 ml # Bowel Movements 2 Laboratory Tests 06/09/20 07:00: White Blood Count 5.6, Red Blood Count 3.19L, Hemoglobin 9.3L, Hematocrit 29.9L, Mean Corpuscular Volume 94, Mean Corpuscular Hemoglobin 29.0, Mean Corpuscular Hemoglobin Concent 31.0L, Red Cell Distribution Width 17.9H, Platelet Count 230, Mean Platelet Volume 5.8L, Neutrophils (%) (Auto) 71.1, Lymphocytes (%) (Auto) 15.7L, Monocytes (%) (Auto) 8.3, Eosinophils (%) (Auto) 3.9H, Basophils (%) (Auto) 1.1, Sodium Level 139, Potassium Level 3.4L, Chloride Level 100, Carbon Dioxide Level 33H, Anion Gap 7, Blood Urea Nitrogen 15, Creatinine 5.6H, Estimat Glomerular Filtration Rate 9.2, Glucose Level 120H, Calcium Level 8.0L, Phosphorus Level 3.5, Magnesium Level 2.2, Total Bilirubin 0.3, Aspartate Amino Transf (AST/SGOT) 47H, Alanine Aminotransferase (ALT/SGPT) < 6L, Alkaline Phosphatase 100, C-Reactive Protein, Quantitative 0.9, Pro-B-Type Natriuretic Peptide > 47876I, Total Protein 7.9, Albumin 2.7L, Globulin 5.2, Albumin/Globulin Ratio 0.5L Height (Feet): 5 Height (Inches): 5.00 Weight (Pounds): 160 General Appearance: no apparent distress Cardiovascular: normal rate Respiratory/Chest: decreased breath sounds Abdomen: soft Objective No change Jack Pryor MD Jun 09, 2020 09:55
--- NOTE | 2020-06-09 11:09 | Infectious Diseases Prog Note ---
"Assessment/Plan Assessment/Plan antibiotics : ancef A 1. staph aureus sepsis s/p catheter removal 2. proteus catheter infection 3. renal failure on HD 4. HIV 5. hypertension 6. COVID 19 negative x 2 7. e.coli | proteus UTI s/p rx P 1. continue ancef 2. okay for new catheter placement from ID perspective 3. will follow up cultures Subjective ROS Limited/Unobtainable: Yes Allergies: Coded Allergies: ASPIRIN (Unverified Allergy, Unknown, 01/16/20) IODINE (Verified Allergy, Unknown, 01/07/20) Uncoded Allergies: CONTRAST DYE (Allergy, Unknown, 01/07/20) NSAID (Allergy, Unknown, 04/24/20) Objective Last 24 Hour Vital Signs Date Time Temp Pulse Resp B/P (MAP) Pulse Ox O2 Delivery O2 Flow Rate FiO2 06/09/20 09:00 Room Air 06/09/20 08:49 83 136/65 06/09/20 08:00 98.4 83 19 136/65 (88) 96 06/09/20 06:09 82 18 145/78 94 06/09/20 06:08 98.9 06/09/20 05:39 86 18 149/76 95 06/09/20 05:39 149/76 06/09/20 04:00 98.4 83 18 149/63 (91) 94 06/09/20 00:00 98.9 94 18 145/77 (99) 94 06/08/20 21:54 89 18 135/76 95 06/08/20 21:24 102 18 147/78 94 06/08/20 21:23 147/78 06/08/20 21:00 Room Air 06/08/20 20:00 98.8 102 18 147/78 (101) 94 06/08/20 16:00 98.0 84 18 129/64 (85) 93 06/08/20 14:00 141/83 06/08/20 12:04 98.1 06/08/20 12:00 98.2 80 17 141/83 (102) 94 Height (Feet): 5 Height (Inches): 5.00 Weight (Pounds): 160 Respiratory/Chest: lungs clear Cardiovascular: normal rate, regular rhythm, no gallop/murmur Abdomen: soft, non tender Extremities: no edema Microbiology Date/Time Source Procedure Growth Status 06/07/20 13:17 Blood Blood Culture - Preliminary NO GROWTH AFTER 24 HOURS Resulted Laboratory Tests Test 06/09/20 07:00 White Blood Count 5.6 K/UL (4.8-10.8) Red Blood Count 3.19 M/UL (4.20-5.40) L Hemoglobin 9.3 G/DL (12.0-16.0) L Hematocrit 29.9 % (37.0-47.0) L Mean Corpuscular Volume 94 FL (80-99) Mean Corpuscular Hemoglobin 29.0 PG (27.0-31.0) Mean Corpuscular Hemoglobin Concent 31.0 G/DL (32.0-36.0) L Red Cell Distribution Width 17.9 % (11.6-14.8) H Platelet Count 230 K/UL (150-450) Mean Platelet Volume 5.8 FL (6.5-10.1) L Neutrophils (%) (Auto) 71.1 % (45.0-75.0) Lymphocytes (%) (Auto) 15.7 % (20.0-45.0) L Monocytes (%) (Auto) 8.3 % (1.0-10.0) Eosinophils (%) (Auto) 3.9 % (0.0-3.0) H Basophils (%) (Auto) 1.1 % (0.0-2.0) Sodium Level 139 MMOL/L (136-145) Potassium Level 3.4 MMOL/L (3.5-5.1) L Chloride Level 100 MMOL/L (98-107) Carbon Dioxide Level 33 MMOL/L (21-32) H Anion Gap 7 mmol/L (5-15) Blood Urea Nitrogen 15 mg/dL (7-18) Creatinine 5.6 MG/DL (0.55-1.30) H Estimat Glomerular Filtration Rate 9.2 mL/min (>60) Glucose Level 120 MG/DL (74-106) H Calcium Level 8.0 MG/DL (8.5-10.1) L Phosphorus Level 3.5 MG/DL (2.5-4.9) Magnesium Level 2.2 MG/DL (1.8-2.4) Total Bilirubin 0.3 MG/DL (0.2-1.0) Aspartate Amino Transf (AST/SGOT) 47 U/L (15-37) H Alanine Aminotransferase (ALT/SGPT) < 6 U/L (12-78) L Alkaline Phosphatase 100 U/L (46-116) C-Reactive Protein, Quantitative 0.9 mg/dL (0.00-0.90) Pro-B-Type Natriuretic Peptide > 14302 pg/mL (0-125) H Total Protein 7.9 G/DL (6.4-8.2) Albumin 2.7 G/DL (3.4-5.0) L Globulin 5.2 g/dL Albumin/Globulin Ratio 0.5 (1.0-2.7) L Current Medications Medications (Trade) Dose Ordered Sig/Rochelle Route PRN Reason Start Time Stop Time Status Last Admin Dose Admin Acetaminophen (Tylenol) 650 mg Q6H PRN ORAL Temp >100.5 05/27/20 18:00 06/26/20 17:59 05/29/20 22:27 Acetaminophen/ Hydrocodone Bitart ([place] 10/325) 1 tab Q4H PRN ORAL Moderate Pain (4-6) 06/05/20 12:00 06/12/20 11:59 Amlodipine Besylate (Norvasc) 10 mg DAILY ORAL 05/24/20 16:00 06/23/20 15:59 06/09/20 08:49 Cefazolin Sodium 1 gm/Dextrose 55 ml @ 110 mls/hr DAILY IVPB 06/06/20 09:00 06/13/20 08:59 06/09/20 08:49 Diphenhydramine HCl (Benadryl) 25 mg Q6H PRN ORAL Itching 05/25/20 08:30 06/24/20 08:29 06/09/20 08:48 Docusate Sodium (Colace) 100 mg TID ORAL 05/25/20 13:00 06/23/20 17:59 06/09/20 08:48 Epoetin Jose (Epoetin Jose(ESRD on dialysis)) 10,000 unit FRI-FRI-FRI SUBQ 05/26/20 21:00 08/24/20 20:59 06/07/20 20:42 Heparin Sodium (Porcine) (Heparin 5000 units/ml) 5,000 units EVERY 12 HOURS SUBQ 05/24/20 21:00 07/08/20 20:59 06/09/20 08:50 Hydralazine HCl (Apresoline) 25 mg Q6H PRN ORAL For High Blood Pressure 05/24/20 16:00 08/22/20 15:59 05/31/20 01:50 Hydralazine HCl (Apresoline) 75 mg EVERY 8 HOURS ORAL 05/31/20 14:00 08/29/20 13:59 06/09/20 05:39 Hydromorphone HCl (Dilaudid) 0.5 mg Q6H PRN IVP Severe Pain (Pain Scale 7-10) 06/06/20 09:34 06/13/20 09:33 06/09/20 05:38 Hydroxyzine HCl (Atarax) 25 mg Q8H ORAL 05/27/20 20:30 06/26/20 20:29 06/09/20 05:38 Levothyroxine Sodium (Synthroid) 75 mcg Q24H ORAL 05/27/20 06:30 06/26/20 06:29 06/09/20 05:38 Lidocaine HCl (Xylocaine Viscous) 15 ml Q4H PRN ORAL For Pain 05/31/20 18:15 08/29/20 18:14 Lorazepam (Ativan) 1 mg Q6H PRN ORAL For Anxiety 06/05/20 10:00 06/12/20 09:59 06/09/20 05:39 Nitroglycerin (Ntg) 0.4 mg Q5M PRN SL Prn Chest Pain 05/24/20 10:45 06/23/20 10:44 Ondansetron HCl (Zofran) 4 mg Q6H PRN IVP Nausea & Vomiting 05/24/20 16:00 06/23/20 15:59 06/08/20 09:00 Pantoprazole (Protonix) 40 mg BID ORAL 05/29/20 18:00 06/25/20 08:59 06/09/20 08:48 Patient Own Medication (Patient's Own Med) 1 ea BID ORAL 05/30/20 18:00 06/29/20 17:59 06/09/20 08:49 Patient Own Medication (Patient's Own Med) 1 ea BID ORAL 05/30/20 18:00 06/29/20 17:59 06/09/20 08:51 Patient Own Medication (Patient's Own Med) 1 ea DAILY ORAL 05/31/20 09:00 06/30/20 08:59 06/09/20 08:49 Sodium Chloride 1,000 ml @ 500 mls/hr Q2H PRN IVLG sbp<90 during hd 05/25/20 17:30 06/24/20 17:29 Elvis Garibay MD Jun 09, 2020 11:09"
[2020-06-09 12:13] LABS: INR 1.2 (0.9-1.1)
[2020-06-09] MEDS ORDERED: Heparin1,000 units/500ml Premix(Conc:2 units/ml) INJ PRN (12:45)
[2020-06-09] MEDS ORDERED: Lidocaine 2% 20mg/ml/Epi 0.005mg/ml 20ml vial INJ PRN (12:45)
[2020-06-09] MEDS ORDERED: ceFAZolin 1gm in D5W 55ml IVPB ONE (14:00)
[2020-06-09] MEDS ORDERED: ceFAZolin 2gm/50ml Premix 50 ML IV SCH (14:15)
--- NOTE | 2020-06-09 14:40 | Pre-Procedure Note/Attestation ---
Pre-Procedure Note/Attestation Complete Prior to Procedure Planned Procedure: not applicable Procedure Narrative: permacath Indications for Procedure Pre-Operative Diagnosis: renal failure Attestation I attest that I discussed the nature of the procedure; its benefits; risks and complications; and alternatives (and the risks and benefits of such alternatives), prior to the procedure, with the patient (or the patient's legal distribution sales representative). I attest that, if there was a reasonable possibility of needing a blood t ransfusion, the patient (or the patient's legal distribution sales representative) was given the [facility] standardized written summary, pursuant to the [place] Blood Safety Act ([place] Health and Safety Code # 1645, as amended). I attest that I re-evaluated the patient just prior to the surgery and that there has been no change in the patient's H&P, except as documented below: Haile Luciano MD Jun 09, 2020 14:40
--- NOTE | 2020-06-09 14:45 | Brief Operative Note ---
Immediate Post Operative Note Operative Note Pre-op Diagnosis: renal failure Procedure: L IJV permacath Post-op Diagnosis: same as pre-op Surgeon: Anayeli Oden Anesthesia: local Specimen: none Complications: none Fluids: none Implant(s) used?: No Haile Oden MD Jun 09, 2020 14:45
[2020-06-09] MEDS: HYDROcodone/Acetamin 10/325 tab ORAL PRN ×2 (15:04→21:21)
--- NOTE | 2020-06-09 18:17 | Diagnostic Imaging Report ---
Indications: Needs long-term dialysis access Technique: Patient given IV Ancef. Total sterile technique, including sterile probe cover and sterile gel, sterile gloves, hand hygiene, hat, mask,, sterile gown, large sterile drape, and preparation with 2% chlorhexidine utilized. Local anesthesia with 1% lidocaine. Ultrasound demonstrated patent compressible left internal jugular vein. Under real-time ultrasound guidance and with real-time visualization of the needle entering the vein lumen, puncture leg internal jugular vein using 21-gauge micropuncture needle, passage 0.018 guidewire, exchange for 4 [place]e micropuncture introducer. The guidewire was used to measure the appropriate catheter length, and was removed. The sheath was left in place. The subcutaneous tract was then anesthetized with 1% lidocaine. A chest dermatotomy was made . The tunneling device was used to pull a 14.5 [place] 23 cm Bio Flow catheter through the subcutaneous tunnel to the neck dermatotomy. A guidewire was passed through the neck introducer into the inferior vena cava, and serial dilators were passed over it, followed by the introduction of a 14.5 [place] AirGuard peel-away sheath. The catheter was then introduced into the sheath, the peel-away sheath was removed. Digital radiograph documents satisfactory catheter tip position in the high right atrium, no kinking at the insertion site. Both catheter ports aspirated and flushed. Catheter was fixed to the skin. Patient tolerated procedure well without immediate complication. Total fluoroscopy time 53.4 seconds. Total dose area product 0.2829 mGym2 Total number of images- Comparison: None. Findings: Completion radiograph documents satisfactory position and course of the catheter, catheter tip at the high right atrium. Impression: Successful placement of left jugular tunneled dialysis catheter, as described above
[2020-06-09] MEDS: Epoetin Alfa-EPBX(ESRD on dialysis)10,000 unit/ml vial SUBQ SCH (21:21)
[2020-06-10] VITALS: BP 132/69
--- NOTE | 2020-06-10 02:00 | Consultation ---
DATE OF CONSULTATION: 06/09/2020 CONSULTING PHYSICIAN: Emely Mcallister M.D. I was asked by Dr. Peralta to see this patient. HISTORY OF PRESENT ILLNESS: This patient is a 69-year-old patient with a history of multiple medical issues including HIV, hypertension, depression, anxiety, who is well known to me from previous admissions. The patient is tearful, was found in acute distress, anxiety, anhedonia, worthlessness, hopelessness. No suicidal or homicidal ideation. However, she stated that she has been thinking about dying. PAST MEDICAL HISTORY: Renal failure, HIV, hypertension, and UTI. ALLERGIES: Include aspirin, contrast dye, iodine, and NSAIDs. SUBSTANCE ABUSE HISTORY: No current illicit drug use or alcohol. The patient has a history of chronic cocaine abuse and smoking. MENTAL STATUS EXAMINATION: The patient is alert and oriented times self, place, situation. Mood is anxious and depressed. Affect is blunted, congruent with mood. Thought process is concrete. Thought content, no suicidal or homicidal ideation. Cognition is intact. Insight and judgment is fair. ASSESSMENT: [place] I Anxiety disorder. Depressive disorder. [place] II Deferred. [place] III As above. [place] IV Low. [place] V 20. PLAN: 1. The patient is on Ativan as needed, which will be continued. 2. Lexapro 10 mg in the morning. 3. Provide the patient with reality orientation and supportive therapy. Emely Mcallister M.D. DR: KONG JOB#: [id number] CC:
[2020-06-10 04:00] VITALS: BP 117/61
[2020-06-10] MEDS: HydrALAZINE 25mg tab ORAL SCH ×3 (05:39→22:16)
[2020-06-10] MEDS: Hydromorphone 0.5mg/0.5ml inj IVP PRN ×3 (05:40→20:34)
[2020-06-10] MEDS: HydrOXYzine tab 25mg tab ORAL SCH ×3 (05:40→20:33)
[2020-06-10] MEDS: LORazepam 1mg tab ORAL PRN ×2 (05:40→20:34)
[2020-06-10 08:00] VITALS: BP 126/65
[2020-06-10] MEDS: Docusate 100mg cap ORAL SCH ×3 (08:27→17:23)
[2020-06-10] MEDS: Patient's Own Med - Ritonavir 100mg ORAL SCH ×2 (08:28→17:23)
[2020-06-10] MEDS: ceFAZolin sod 1 GM in D5W 55 ML IVPB SCH (08:28)
[2020-06-10] MEDS: Patient's Own Med - Tivicay 50mg ORAL SCH (08:28)
[2020-06-10] MEDS: Heparin 5000 units/ml inj SUBQ SCH ×2 (08:31→20:41)
[2020-06-10] MEDS: HYDROcodone/Acetamin 10/325 tab ORAL PRN (08:52)
--- NOTE | 2020-06-10 10:49 | General Progress Note ---
Subjective ROS Limited/Unobtainable: No Constitutional: Reports: malaise, weakness HEENT: Reports: no symptoms Cardiovascular: Reports: no symptoms Respiratory: Reports: no symptoms Gastrointestinal/Abdominal: Reports: no symptoms Genitourinary: Reports: no symptoms Neurologic/Psychiatric: Reports: anxiety, depressed Endocrine: Reports: no symptoms Hematologic/Lymphatic: Reports: no symptoms Allergies: Coded Allergies: ASPIRIN (Unverified Allergy, Unknown, 01/16/20) IODINE (Verified Allergy, Unknown, 01/07/20) Uncoded Allergies: CONTRAST DYE (Allergy, Unknown, 01/07/20) NSAID (Allergy, Unknown, 04/24/20) All Systems: reviewed and negative except above Subjective sleeping. no events. s/p perm cath. no fever or chills. no sob. on iv ancef. c/o pain and anxiety. Objective Last 24 Hour Vital Signs Date Time Temp Pulse Resp B/P (MAP) Pulse Ox O2 Delivery O2 Flow Rate FiO2 06/10/20 09:22 97.7 06/10/20 09:00 Room Air 06/10/20 08:00 98.1 76 17 126/65 (85) 93 06/10/20 06:10 97.7 06/10/20 06:10 76 18 131/67 97 06/10/20 05:40 88 18 135/68 96 06/10/20 05:39 135/75 06/10/20 04:00 98.6 71 20 117/61 (79) 96 06/10/20 00:19 76 18 130/67 96 06/10/20 00:00 97.7 80 20 132/69 (90) 96 06/09/20 23:49 98 18 135/68 97 06/09/20 21:51 97.9 06/09/20 21:21 125/62 06/09/20 21:00 Room Air 06/09/20 20:00 97.9 88 18 125/62 (83) 97 06/09/20 17:00 98.8 86 21 140/69 (92) 95 06/09/20 16:30 98.7 83 20 138/70 (92) 96 06/09/20 16:00 98.8 89 21 144/72 (96) 95 06/09/20 15:45 98.9 88 20 140/71 (94) 94 06/09/20 15:34 86 19 139/69 96 06/09/20 15:30 98.8 89 21 142/70 (94) 94 06/09/20 15:15 99.0 87 20 138/69 (92) 95 06/09/20 15:04 84 20 140/70 97 06/09/20 15:00 99.0 89 21 140/70 (93) 97 06/09/20 14:21 88 22 138/67 (90) 94 06/09/20 14:16 87 28 144/72 (96) 95 06/09/20 14:11 85 21 143/75 (97) 94 06/09/20 13:59 83 20 06/09/20 13:07 139/72 06/09/20 12:00 98.1 84 20 139/72 (94) 96 Intake and Output 06/09/20 06/10/20 19:00 07:00 Intake Total 500 ml 360 ml Balance 500 ml 360 ml Intake Oral 500 ml 360 ml # Bowel Movements 2 2 Laboratory Tests 06/09/20 10:55: Prothrombin Time 13.4H, Prothromb Time International Ratio 1.2H, Activated Partial Thromboplast Time 31 Height (Feet): 5 Height (Inches): 5.00 Weight (Pounds): 160 Objective General Appearance: WD/WN, alert, mild distress, agitated EENT: normal ENT inspection. +left neck HD catheter Neck: non-tender, normal alignment, supple Cardiovascular: normal peripheral pulses, normal rate, regular rhythm Respiratory/Chest: chest wall non-tender, lungs clear, normal breath sounds, no respiratory distress Abdomen: normal bowel sounds, non tender, soft, no organomegaly Edema: no edema noted Arm (L), no edema noted Arm (R) Neurologic: certified neurodiagnostic technologist II-XII grossly normal, alert, responsive Skin: other - ?abrasion between buttocks Assessment/Plan Problem List: (1) Hypertensive urgency ICD Codes: I16.0 - Hypertensive urgency SNOMED: 659710165 (2) HIV disease ICD Codes: B20 - Human immunodeficiency virus [HIV] disease SNOMED: 79740988 (3) CHF (congestive heart failure), NYHA class II ICD Codes: I50.9 - Heart failure, unspecified SNOMED: 027635712, 564282577 (4) ESRD (end stage renal disease) on dialysis ICD Codes: N18.6 - End stage renal disease; Z99.2 - Dependence on renal dialysis SNOMED: 483037563 (5) Substance abuse ICD Codes: F19.10 - Other psychoactive substance abuse, uncomplicated SNOMED: 44175781 Status: stable, progressing Assessment/Plan: iv abx per ID HD per renal wound care tylenol for fever dvt/stress ulcer prophylaxis pain rx and anxiolytics as needed. +hx of opioid use do. iv decreased HD per renal perm cath care cont pain rx and anxiolytics dvt/stress ulcer prophylaxis out of bed Michael Peralta MD Jun 10, 2020 10:49
[2020-06-10 12:00] VITALS: BP 133/72
--- NOTE | 2020-06-10 12:01 | Nephrology Progress Note ---
Assessment/Plan Problem List: (1) ESRD (end stage renal disease) on dialysis (2) HIV disease (3) HCV antibody positive (4) Hypertensive urgency (5) Substance abuse Assessment Patient admitted with hypertensive urgency (1) ESRD (end stage renal disease) on dialysis (2) HIV disease (3) Cocaine abuse (4) Noncompliance (5) Anemia of chronic kidney disease Plan June 10: Seen during dialysis. Had tunneled catheter placed yesterday. No labs drawn today. Will check lab tomorrow. Continue same management. June 09: Still waiting for placement of ID clearance for tunneled catheter placement. Due for dialysis tomorrow. Labs reviewed. Medication list reviewed. June 08: Tunnel catheter was not placed pending ID clearance. Due for dialysis today. Labs reviewed. Continue per consultants. June 07: Patient due for placement of tunneled catheter. Patient due for dialysis tomorrow. After insertion of the tunneled catheter patient can be discharged from a renal standpoint of view and continue outpatient dialysis Friday. June 06: Due for dialysis today. Last blood cultures available is from June 01. Waiting for negative blood cultures for 48 hours to proceed with placement of tunneled catheter and then discharge. June 05: Dialyzed yesterday. Due for dialysis tomorrow. Surveillance blood cultures are done. When negative for 48 hours, will proceed with placement of tunneled catheter and discharge. June 04: Due for dialysis today. We will continue to follow blood cultures. Antibiotic for bacteremia in process. Will place tunneled catheter when patient is culture negative for 48 hours. CRP lowering. June 03: Patient had dialysis yesterday. Has a nontunneled dialysis access. Surveillance blood cultures pending. Will do dialysis tomorrow June 04. Will check lab tomorrow. June 02: Patient continues to have persistent bacteremia. Due for nontunneled dialysis catheter today. Will be dialyzed after insertion of the catheter today as her last dialysis was 3 days ago. Continue per consultants. June 01: Dialysis catheter removed May 31. Labs reviewed. Discussed with RN. Will arrange for placement of a nontunneled dialysis catheter tomorrow. We will continue to order surveillance blood cultures. When blood cultures are negative will attempt to put a tunneled catheter prior to discharge. Continue per orders. May 31: Status quo. Dialyzed yesterday. I are will remove the permacath today. Tip will be sent for culture. Surveillance blood culture ordered for today again. CRP lower today. Continue to monitor electrolytes and renal parameters. May 30: Low-grade fever persists. Due for dialysis today. As per ID recommendation will discontinue the dialysis catheter which may be the source of fever and bacteremia. Discussed with RN. Orders given. Will check labs tomorrow. May 29: Patient remains febrile. Nontoxic. Dialyzed yesterday. Next dialysis tomorrow. Preliminary blood cultures positive for gram-positive's. Most likely source dialysis catheter. CRP jumped up to 14. Continue per ID advice. Keep the blood pressure and blood sugar in check. Will obtain repeated blood culture tomorrow during dialysis. Patient on vancomycin. May 28: Patient febrile. Cultures taken during dialysis. Vancomycin 1 dose given. Will check labs tomorrow. A temporary catheter may need to be discontinued and replaced if blood cultures positive. Continue per consultants. May 27: Patient in mild distress due to itching and generalized pain. Was dialyzed yesterday. Will dialyze again tomorrow. Will start on Atarax [id number] for itching. Labs reviewed, medications reviewed and adjusted. B12 subcu and to p.o. Synthroid ordered Patient was dialyzed 05/24, will dialyze today Will adjust blood pressure medication Per orders 2. Dr. Townsend to call urologist the catheter again yet to talk to the person was put in the disc note thank you very much by Subjective ROS Limited/Unobtainable: No Constitutional: Reports: malaise Objective Objective Last 24 Hour Vital Signs Date Time Temp Pulse Resp B/P (MAP) Pulse Ox O2 Delivery O2 Flow Rate FiO2 06/10/20 09:22 97.7 06/10/20 09:00 Room Air 06/10/20 08:00 98.1 76 17 126/65 (85) 93 06/10/20 06:10 97.7 06/10/20 06:10 76 18 131/67 97 06/10/20 05:40 88 18 135/68 96 06/10/20 05:39 135/75 06/10/20 04:00 98.6 71 20 117/61 (79) 96 06/10/20 00:19 76 18 130/67 96 06/10/20 00:00 97.7 80 20 132/69 (90) 96 06/09/20 23:49 98 18 135/68 97 06/09/20 21:51 97.9 06/09/20 21:21 125/62 06/09/20 21:00 Room Air 06/09/20 20:00 97.9 88 18 125/62 (83) 97 06/09/20 17:00 98.8 86 21 140/69 (92) 95 06/09/20 16:30 98.7 83 20 138/70 (92) 96 06/09/20 16:00 98.8 89 21 144/72 (96) 95 06/09/20 15:45 98.9 88 20 140/71 (94) 94 06/09/20 15:34 86 19 139/69 96 06/09/20 15:30 98.8 89 21 142/70 (94) 94 06/09/20 15:15 99.0 87 20 138/69 (92) 95 06/09/20 15:04 84 20 140/70 97 06/09/20 15:00 99.0 89 21 140/70 (93) 97 06/09/20 14:21 88 22 138/67 (90) 94 06/09/20 14:16 87 28 144/72 (96) 95 06/09/20 14:11 85 21 143/75 (97) 94 06/09/20 13:59 83 20 06/09/20 13:07 139/72 Intake and Output 06/09/20 06/10/20 19:00 07:00 Intake Total 500 ml 360 ml Balance 500 ml 360 ml Intake Oral 500 ml 360 ml # Bowel Movements 2 2 No labs drawn today Height (Feet): 5 Height (Inches): 5.00 Weight (Pounds): 160 General Appearance: no apparent distress Objective No change Jack Pryor MD Jun 10, 2020 12:01
--- NOTE | 2020-06-10 13:46 | Infectious Diseases Prog Note ---
Assessment/Plan Assessment/Plan A 1. Staph aureus sepsis, MSSA 2. ESRD on HD 3. HIV 4. Hypertension 5. COVID 19 negative x 2 6. E. coli & Proteus UTI 9: Catheter tip culture: proteus P 1. Continue Ancef 2. Will f/u cultures Subjective ROS Limited/Unobtainable: No Constitutional: Reports: no symptoms, other - feels better Respiratory: Reports: no symptoms Gastrointestinal/Abdominal: Reports: no symptoms Genitourinary: Reports: no symptoms Allergies: Coded Allergies: ASPIRIN (Unverified Allergy, Unknown, 01/16/20) IODINE (Verified Allergy, Unknown, 01/07/20) Uncoded Allergies: CONTRAST DYE (Allergy, Unknown, 01/07/20) NSAID (Allergy, Unknown, 04/24/20) Objective Last 24 Hour Vital Signs Date Time Temp Pulse Resp B/P (MAP) Pulse Ox O2 Delivery O2 Flow Rate FiO2 06/10/20 12:00 97.1 75 18 133/72 (92) 97 06/10/20 09:22 97.7 06/10/20 09:00 Room Air 06/10/20 08:00 98.1 76 17 126/65 (85) 93 06/10/20 06:10 97.7 06/10/20 06:10 76 18 131/67 97 06/10/20 05:40 88 18 135/68 96 06/10/20 05:39 135/75 06/10/20 04:00 98.6 71 20 117/61 (79) 96 06/10/20 00:19 76 18 130/67 96 06/10/20 00:00 97.7 80 20 132/69 (90) 96 06/09/20 23:49 98 18 135/68 97 06/09/20 21:51 97.9 06/09/20 21:21 125/62 06/09/20 21:00 Room Air 06/09/20 20:00 97.9 88 18 125/62 (83) 97 06/09/20 17:00 98.8 86 21 140/69 (92) 95 06/09/20 16:30 98.7 83 20 138/70 (92) 96 06/09/20 16:00 98.8 89 21 144/72 (96) 95 06/09/20 15:45 98.9 88 20 140/71 (94) 94 06/09/20 15:34 86 19 139/69 96 06/09/20 15:30 98.8 89 21 142/70 (94) 94 06/09/20 15:15 99.0 87 20 138/69 (92) 95 06/09/20 15:04 84 20 140/70 97 06/09/20 15:00 99.0 89 21 140/70 (93) 97 06/09/20 14:21 88 22 138/67 (90) 94 06/09/20 14:16 87 28 144/72 (96) 95 06/09/20 14:11 85 21 143/75 (97) 94 06/09/20 13:59 83 20 Height (Feet): 5 Height (Inches): 5.00 Weight (Pounds): 160 General Appearance: no acute distress HEENT: mucous membranes moist Respiratory/Chest: lungs clear Cardiovascular: normal rate, other - left Permacath Abdomen: soft, non tender Extremities: no edema Neurologic/Psychiatric: alert, oriented x 3, responsive Current Medications Medications (Trade) Dose Ordered Sig/Rochelle Route PRN Reason Start Time Stop Time Status Last Admin Dose Admin Acetaminophen (Tylenol) 650 mg Q6H PRN ORAL Temp >100.5 05/27/20 18:00 06/26/20 17:59 05/29/20 22:27 Acetaminophen/ Hydrocodone Bitart ([place] 10/325) 1 tab Q4H PRN ORAL Moderate Pain (4-6) 06/05/20 12:00 06/12/20 11:59 06/10/20 08:52 Amlodipine Besylate (Norvasc) 10 mg DAILY ORAL 05/24/20 16:00 06/23/20 15:59 06/09/20 08:49 Cefazolin Sodium 1 gm/Dextrose 55 ml @ 110 mls/hr DAILY IVPB 06/06/20 09:00 06/13/20 08:59 06/10/20 08:28 Diphenhydramine HCl (Benadryl) 25 mg Q6H PRN ORAL Itching 05/25/20 08:30 06/24/20 08:29 06/10/20 13:19 Docusate Sodium (Colace) 100 mg TID ORAL 05/25/20 13:00 06/23/20 17:59 06/10/20 13:19 Epoetin Jose (Epoetin Jose(ESRD on dialysis)) 10,000 unit FRI-FRI-FRI SUBQ 05/26/20 21:00 08/24/20 20:59 06/09/20 21:21 Escitalopram Oxalate (Lexapro) 10 mg DAILY ORAL 06/09/20 13:45 07/09/20 13:44 06/10/20 08:27 Heparin Sodium (Porcine) (Heparin 5000 units/ml) 5,000 units EVERY 12 HOURS SUBQ 05/24/20 21:00 07/08/20 20:59 06/09/20 21:29 Heparin Sodium/ Sodium Chloride (Heparin 1000 units/500ml Premix) 1,000 unit ONCE PRN INJ catheter placement 06/09/20 12:45 06/11/20 12:44 Hydralazine HCl (Apresoline) 25 mg Q6H PRN ORAL For High Blood Pressure 05/24/20 16:00 08/22/20 15:59 05/31/20 01:50 Hydralazine HCl (Apresoline) 75 mg EVERY 8 HOURS ORAL 05/31/20 14:00 08/29/20 13:59 06/10/20 05:39 Hydromorphone HCl (Dilaudid) 0.5 mg Q6H PRN IVP Severe Pain (Pain Scale 7-10) 06/06/20 09:34 06/13/20 09:33 06/10/20 13:19 Hydroxyzine HCl (Atarax) 25 mg Q8H ORAL 05/27/20 20:30 06/26/20 20:29 06/10/20 13:19 Levothyroxine Sodium (Synthroid) 75 mcg Q24H ORAL 05/27/20 06:30 06/26/20 06:29 06/10/20 05:40 Lidocaine HCl (Xylocaine Viscous) 15 ml Q4H PRN ORAL For Pain 05/31/20 18:15 08/29/20 18:14 Lidocaine/ Epinephrine (Lidocaine 2%/ Epi 20ml) 20 ml ONCE PRN INJ catheter placement 06/09/20 12:45 06/11/20 12:44 Lorazepam (Ativan) 1 mg Q6H PRN ORAL For Anxiety 06/05/20 10:00 06/12/20 09:59 06/10/20 05:40 Nitroglycerin (Ntg) 0.4 mg Q5M PRN SL Prn Chest Pain 05/24/20 10:45 06/23/20 10:44 Ondansetron HCl (Zofran) 4 mg Q6H PRN IVP Nausea & Vomiting 05/24/20 16:00 06/23/20 15:59 06/08/20 09:00 Pantoprazole (Protonix) 40 mg BID ORAL 05/29/20 18:00 06/25/20 08:59 06/10/20 08:27 Patient Own Medication (Patient's Own Med) 1 ea BID ORAL 05/30/20 18:00 06/29/20 17:59 06/10/20 08:28 Patient Own Medication (Patient's Own Med) 1 ea BID ORAL 05/30/20 18:00 06/29/20 17:59 06/10/20 08:28 Patient Own Medication (Patient's Own Med) 1 ea DAILY ORAL 05/31/20 09:00 06/30/20 08:59 06/10/20 08:28 Sodium Chloride 1,000 ml @ 500 mls/hr Q2H PRN IVLG sbp<90 during hd 05/25/20 17:30 06/24/20 17:29 Armando Brown MD Jun 10, 2020 13:46
[2020-06-10 16:00] VITALS: BP 120/73
--- NOTE | 2020-06-10 17:07 | Cardiology Progress Note ---
Subjective DATE OF SERVICE: Jun 10, 2020 Tunneled dialysis catheter placed yesterday (06/09/20). Blood cultures positive for S.aureus (MSSA); patient remains on IV antibiotics. Still c/o pain and frequently asking for more pain medications; still appears comfortable. No CP or SOB BP range stable overall, with fewer BP elevations noted. Objective Last 24 Hour Vital Signs Date Time Temp Pulse Resp B/P (MAP) Pulse Ox O2 Delivery O2 Flow Rate FiO2 06/10/20 16:00 97.2 77 19 120/73 (89) 97 06/10/20 13:49 97.1 06/10/20 12:00 97.1 75 18 133/72 (92) 97 06/10/20 09:22 97.7 06/10/20 09:00 Room Air 06/10/20 08:00 98.1 76 17 126/65 (85) 93 06/10/20 06:10 97.7 06/10/20 06:10 76 18 131/67 97 06/10/20 05:40 88 18 135/68 96 06/10/20 05:39 135/75 06/10/20 04:00 98.6 71 20 117/61 (79) 96 06/10/20 00:19 76 18 130/67 96 06/10/20 00:00 97.7 80 20 132/69 (90) 96 06/09/20 23:49 98 18 135/68 97 06/09/20 21:51 97.9 06/09/20 21:21 125/62 06/09/20 21:00 Room Air 06/09/20 20:00 97.9 88 18 125/62 (83) 97 ROS: unchanged from my evaluation of 05/24/20 RHYTHM: NSR, SB, PACs LUNGS: lungs clear bilaterally, other - Tunneled cath site clean without bleeding. CARDIAC: normal rate, regular rhythm, normal S1 and S2, gallop/S4 ABDOMEN: non tender, soft, no organomegaly, no mass EXTREMITIES: No edema, other - skin wound per nursing documentation Assessment/Plan Assessment/Plan Fevers - due to line infection. Now s/p PermCath replacement No increased endocarditis risk noted by 2D Echo criteria. Acute on chronic Diastolic CHF Hypertensive urgency - resolved; BP range minimally elevated at times ESRD - with history of frequently missed dialysis sessions as outpatient. Anginal episode precipitated by above; no recurrence since admission. HHD Sinus node disease with hx of tachy-alysa syndrome; patient has refused pacemaker in past. Chronic cocaine abuse Buttocks wound Antimicrobials per ID HD/UF Titrate antiHTN and anti-failure regimen as needed. Counselled repeatedly regarding cocaine use Skin care Symptom-guided pain control Nam Barnett MD Jun 10, 2020 17:07
[2020-06-10 20:00] VITALS: BP 143/74
[2020-06-11] VITALS: BP 138/72
[2020-06-11] MEDS: Hydromorphone 0.5mg/0.5ml inj IVP PRN ×4 (03:08→22:09)
[2020-06-11 04:00] VITALS: BP 149/81
[2020-06-11] MEDS: HydrALAZINE 25mg tab ORAL SCH ×3 (05:33→22:09)
[2020-06-11] MEDS: HydrOXYzine tab 25mg tab ORAL SCH ×3 (05:33→20:17)
[2020-06-11 08:00] VITALS: BP 135/65
[2020-06-11] MEDS: Patient's Own Med - Tivicay 50mg ORAL SCH (08:38)
[2020-06-11] MEDS: Patient's Own Med - Ritonavir 100mg ORAL SCH ×2 (08:38→17:04)
[2020-06-11] MEDS: ceFAZolin sod 1 GM in D5W 55 ML IVPB SCH (08:38)
[2020-06-11] MEDS: Docusate 100mg cap ORAL SCH ×3 (08:40→17:04)
[2020-06-11] MEDS: Heparin 5000 units/ml inj SUBQ SCH ×2 (08:40→20:42)
[2020-06-11] MEDS: HYDROcodone/Acetamin 10/325 tab ORAL PRN (08:43)
--- NOTE | 2020-06-11 08:59 | General Progress Note ---
Subjective ROS Limited/Unobtainable: No Constitutional: Reports: malaise, weakness HEENT: Reports: no symptoms Cardiovascular: Reports: no symptoms Respiratory: Reports: cough Gastrointestinal/Abdominal: Reports: no symptoms Genitourinary: Reports: no symptoms Neurologic/Psychiatric: Reports: no symptoms Endocrine: Reports: no symptoms Hematologic/Lymphatic: Reports: no symptoms Allergies: Coded Allergies: ASPIRIN (Unverified Allergy, Unknown, 01/16/20) IODINE (Verified Allergy, Unknown, 01/07/20) Uncoded Allergies: CONTRAST DYE (Allergy, Unknown, 01/07/20) NSAID (Allergy, Unknown, 04/24/20) All Systems: reviewed and negative except above Subjective no events. w/o complaints except insomnia. no fever or chills. pain controlled. +anxiety Objective Last 24 Hour Vital Signs Date Time Temp Pulse Resp B/P (MAP) Pulse Ox O2 Delivery O2 Flow Rate FiO2 06/11/20 08:37 85 135/65 06/11/20 05:33 149/74 06/11/20 04:00 98.2 105 20 149/81 (103) 92 06/11/20 03:38 98.4 06/11/20 00:00 98.4 75 18 138/72 (94) 94 06/10/20 22:16 138/72 06/10/20 21:51 68 20 138/72 94 06/10/20 21:48 Room Air 06/10/20 21:04 98.3 06/10/20 20:34 70 20 143/74 92 06/10/20 20:00 98.3 88 20 143/74 (97) 95 06/10/20 16:00 97.2 77 19 120/73 (89) 97 06/10/20 13:49 97.1 06/10/20 12:00 97.1 75 18 133/72 (92) 97 06/10/20 09:22 97.7 06/10/20 09:00 Room Air Intake and Output 06/10/20 06/11/20 19:00 07:00 Intake Total 350 ml 320 ml Output Total 4000 ml Balance -3650 ml 320 ml Intake Oral 240 ml 320 ml IV Total 110 ml Hemodialysis UF 4000 ml # Voids 1 # Bowel Movements 3 3 Height (Feet): 5 Height (Inches): 5.00 Weight (Pounds): 160 Objective General Appearance: WD/WN, alert, mild distress, agitated EENT: normal ENT inspection. +left neck HD catheter Neck: non-tender, normal alignment, supple Cardiovascular: normal peripheral pulses, normal rate, regular rhythm Respiratory/Chest: chest wall non-tender, lungs clear, normal breath sounds, no respiratory distress Abdomen: normal bowel sounds, non tender, soft, no organomegaly Edema: no edema noted Arm (L), no edema noted Arm (R) Neurologic: party host II-XII grossly normal, alert, responsive Skin: other - ?abrasion between buttocks Assessment/Plan Problem List: (1) Hypertensive urgency ICD Codes: I16.0 - Hypertensive urgency SNOMED: 006973766 (2) HIV disease ICD Codes: B20 - Human immunodeficiency virus [HIV] disease SNOMED: 04688293 (3) CHF (congestive heart failure), NYHA class II ICD Codes: I50.9 - Heart failure, unspecified SNOMED: 785662152, 246068292 (4) ESRD (end stage renal disease) on dialysis ICD Codes: N18.6 - End stage renal disease; Z99.2 - Dependence on renal dialysis SNOMED: 437588167 (5) Substance abuse ICD Codes: F19.10 - Other psychoactive substance abuse, uncomplicated SNOMED: 21168488 Status: stable, progressing Assessment/Plan: iv abx per ID HD per renal wound care tylenol for fever dvt/stress ulcer prophylaxis pain rx and anxiolytics as needed. +hx of opioid use do. iv decreased HD per renal perm cath care cont pain rx and anxiolytics dvt/stress ulcer prophylaxis out of bed melatonin for insomnia Michael Peralta MD Jun 11, 2020 08:59
[2020-06-11 09:11] LABS: BASOPHILS % (AUTO) 2.2 % (0.0-2.0); EOSINOPHILS % (AUTO) 3.9 % (0.0-3.0); HEMATOCRIT 34.4 % (37.0-47.0); HEMOGLOBIN 10.2 G/DL (12.0-16.0); LYMPHOCYTES % (AUTO) 12.8 % (20.0-45.0); MEAN CORPUSCULAR VOLUME 98 FL (80-99); MONOCYTES % (AUTO) 8.5 % (1.0-10.0); NEUTROPHILS % (AUTO) 72.7 % (45.0-75.0); PLATELET COUNT 213 K/UL (150-450); RED BLOOD COUNT 3.52 M/UL (4.20-5.40); RED CELL DISTRIBUTION WIDTH 16.5 % (11.6-14.8); WHITE BLOOD COUNT 5.4 K/UL (4.8-10.8)
[2020-06-11 09:33] LABS: ALANINE AMINOTRANSFERASE < 6 U/L (12-78); ALBUMIN/GLOBULIN RATIO 0.5 (1.0-2.7); ALKALINE PHOSPHATASE 100 U/L (46-116); ANION GAP 7 mmol/L (5-15); ASPARTATE AMINO TRANSFERASE 33 U/L (15-37); BILIRUBIN,TOTAL 0.3 MG/DL (0.2-1.0); BLOOD UREA NITROGEN 16 mg/dL (7-18); CALCIUM 8.2 MG/DL (8.5-10.1); CARBON DIOXIDE 30 MMOL/L (21-32); CHLORIDE 99 MMOL/L (98-107); CREATININE 5.8 MG/DL (0.55-1.30); PHOSPHORUS 3.9 MG/DL (2.5-4.9); POTASSIUM 4.5 MMOL/L (3.5-5.1); SODIUM 136 MMOL/L (136-145)
--- NOTE | 2020-06-11 11:27 | Infectious Diseases Prog Note ---
"Assessment/Plan Assessment/Plan antibiotics : ancef A 1. staph aureus sepsis s/p catheter removal 2. proteus catheter infection 3. renal failure on HD 4. HIV 5. hypertension 6. COVID 19 negative x 2 7. e.coli | proteus UTI s/p rx P 1. continue ancef after dialysis 3 more days 2. will follow up cultures Subjective Constitutional: Denies: fever, chills Respiratory: Denies: shortness of breath, dry cough Gastrointestinal/Abdominal: Denies: nausea, vomiting, diarrhea Musculoskeletal: Reports: pain - decreased Allergies: Coded Allergies: ASPIRIN (Unverified Allergy, Unknown, 01/16/20) IODINE (Verified Allergy, Unknown, 01/07/20) Uncoded Allergies: CONTRAST DYE (Allergy, Unknown, 01/07/20) NSAID (Allergy, Unknown, 04/24/20) Objective Last 24 Hour Vital Signs Date Time Temp Pulse Resp B/P (MAP) Pulse Ox O2 Delivery O2 Flow Rate FiO2 06/11/20 10:19 98.2 06/11/20 09:00 Room Air 06/11/20 08:37 85 135/65 06/11/20 08:00 97.1 85 18 135/65 (88) 96 06/11/20 05:33 149/74 06/11/20 04:00 98.2 105 20 149/81 (103) 92 06/11/20 03:38 98.4 06/11/20 00:00 98.4 75 18 138/72 (94) 94 06/10/20 22:16 138/72 06/10/20 21:51 68 20 138/72 94 06/10/20 21:48 Room Air 06/10/20 21:04 98.3 06/10/20 20:34 70 20 143/74 92 06/10/20 20:00 98.3 88 20 143/74 (97) 95 06/10/20 16:00 97.2 77 19 120/73 (89) 97 06/10/20 13:49 97.1 06/10/20 12:00 97.1 75 18 133/72 (92) 97 Height (Feet): 5 Height (Inches): 5.00 Weight (Pounds): 160 Respiratory/Chest: lungs clear Cardiovascular: normal rate, regular rhythm, no gallop/murmur Abdomen: soft, non tender Extremities: no edema, other - left subclavian catheter Laboratory Tests Test 06/11/20 08:30 White Blood Count 5.4 K/UL (4.8-10.8) Red Blood Count 3.52 M/UL (4.20-5.40) L Hemoglobin 10.2 G/DL (12.0-16.0) L Hematocrit 34.4 % (37.0-47.0) L Mean Corpuscular Volume 98 FL (80-99) Mean Corpuscular Hemoglobin 29.1 PG (27.0-31.0) Mean Corpuscular Hemoglobin Concent 29.7 G/DL (32.0-36.0) L Red Cell Distribution Width 16.5 % (11.6-14.8) H Platelet Count 213 K/UL (150-450) Mean Platelet Volume 6.3 FL (6.5-10.1) L Neutrophils (%) (Auto) 72.7 % (45.0-75.0) Lymphocytes (%) (Auto) 12.8 % (20.0-45.0) L Monocytes (%) (Auto) 8.5 % (1.0-10.0) Eosinophils (%) (Auto) 3.9 % (0.0-3.0) H Basophils (%) (Auto) 2.2 % (0.0-2.0) H Sodium Level 136 MMOL/L (136-145) Potassium Level 4.5 MMOL/L (3.5-5.1) Chloride Level 99 MMOL/L (98-107) Carbon Dioxide Level 30 MMOL/L (21-32) Anion Gap 7 mmol/L (5-15) Blood Urea Nitrogen 16 mg/dL (7-18) Creatinine 5.8 MG/DL (0.55-1.30) H Estimat Glomerular Filtration Rate 8.8 mL/min (>60) Glucose Level 96 MG/DL (74-106) Calcium Level 8.2 MG/DL (8.5-10.1) L Phosphorus Level 3.9 MG/DL (2.5-4.9) Total Bilirubin 0.3 MG/DL (0.2-1.0) Aspartate Amino Transf (AST/SGOT) 33 U/L (15-37) Alanine Aminotransferase (ALT/SGPT) < 6 U/L (12-78) L Alkaline Phosphatase 100 U/L (46-116) C-Reactive Protein, Quantitative 0.6 mg/dL (0.00-0.90) Total Protein 9.4 G/DL (6.4-8.2) H Albumin 3.0 G/DL (3.4-5.0) L Globulin 6.4 g/dL Albumin/Globulin Ratio 0.5 (1.0-2.7) L Current Medications Medications (Trade) Dose Ordered Sig/Rochelle Route PRN Reason Start Time Stop Time Status Last Admin Dose Admin Acetaminophen (Tylenol) 650 mg Q6H PRN ORAL Temp >100.5 05/27/20 18:00 06/26/20 17:59 05/29/20 22:27 Acetaminophen/ Hydrocodone Bitart ([place] 10/325) 1 tab Q4H PRN ORAL Moderate Pain (4-6) 06/05/20 12:00 06/12/20 11:59 06/10/20 08:52 Amlodipine Besylate (Norvasc) 10 mg DAILY ORAL 05/24/20 16:00 06/23/20 15:59 06/11/20 08:37 Cefazolin Sodium 1 gm/Dextrose 55 ml @ 110 mls/hr DAILY IVPB 06/06/20 09:00 06/13/20 08:59 06/11/20 08:38 Diphenhydramine HCl (Benadryl) 25 mg Q6H PRN ORAL Itching 05/25/20 08:30 06/24/20 08:29 06/11/20 05:33 Docusate Sodium (Colace) 100 mg TID ORAL 05/25/20 13:00 06/23/20 17:59 06/10/20 13:19 Epoetin Jose (Epoetin Jose(ESRD on dialysis)) 10,000 unit FRI-FRI-FRI SUBQ 05/26/20 21:00 08/24/20 20:59 06/09/20 21:21 Escitalopram Oxalate (Lexapro) 10 mg DAILY ORAL 06/09/20 13:45 07/09/20 13:44 06/11/20 08:37 Heparin Sodium (Porcine) (Heparin 5000 units/ml) 5,000 units EVERY 12 HOURS SUBQ 05/24/20 21:00 07/08/20 20:59 06/11/20 08:40 Heparin Sodium/ Sodium Chloride (Heparin 1000 units/500ml Premix) 1,000 unit ONCE PRN INJ catheter placement 06/09/20 12:45 06/11/20 12:44 Hydralazine HCl (Apresoline) 25 mg Q6H PRN ORAL For High Blood Pressure 05/24/20 16:00 08/22/20 15:59 05/31/20 01:50 Hydralazine HCl (Apresoline) 75 mg EVERY 8 HOURS ORAL 05/31/20 14:00 08/29/20 13:59 06/11/20 05:33 Hydromorphone HCl (Dilaudid) 0.5 mg Q6H PRN IVP Severe Pain (Pain Scale 7-10) 06/06/20 09:34 06/13/20 09:33 06/11/20 09:49 Hydroxyzine HCl (Atarax) 25 mg Q8H ORAL 05/27/20 20:30 06/26/20 20:29 06/11/20 05:33 Levothyroxine Sodium (Synthroid) 75 mcg Q24H ORAL 05/27/20 06:30 06/26/20 06:29 06/11/20 05:33 Lidocaine HCl (Xylocaine Viscous) 15 ml Q4H PRN ORAL For Pain 05/31/20 18:15 08/29/20 18:14 Lidocaine/ Epinephrine (Lidocaine 2%/ Epi 20ml) 20 ml ONCE PRN INJ catheter placement 06/09/20 12:45 06/11/20 12:44 Lorazepam (Ativan) 1 mg Q6H PRN ORAL For Anxiety 06/05/20 10:00 06/12/20 09:59 06/10/20 20:34 Nitroglycerin (Ntg) 0.4 mg Q5M PRN SL Prn Chest Pain 05/24/20 10:45 06/23/20 10:44 Ondansetron HCl (Zofran) 4 mg Q6H PRN IVP Nausea & Vomiting 05/24/20 16:00 06/23/20 15:59 06/11/20 10:40 Pantoprazole (Protonix) 40 mg BID ORAL 05/29/20 18:00 06/25/20 08:59 06/11/20 08:37 Patient Own Medication (Patient's Own Med) 1 ea BID ORAL 05/30/20 18:00 06/29/20 17:59 06/11/20 08:38 Patient Own Medication (Patient's Own Med) 1 ea BID ORAL 05/30/20 18:00 06/29/20 17:59 06/11/20 08:38 Patient Own Medication (Patient's Own Med) 1 ea DAILY ORAL 05/31/20 09:00 06/30/20 08:59 06/11/20 08:38 Sodium Chloride 1,000 ml @ 500 mls/hr Q2H PRN IVLG sbp<90 during hd 05/25/20 17:30 06/24/20 17:29 Elvis Garibay MD Jun 11, 2020 11:27"
[2020-06-11 12:00] VITALS: BP 131/71
--- NOTE | 2020-06-11 12:11 | Nephrology Progress Note ---
Assessment/Plan Problem List: (1) ESRD (end stage renal disease) on dialysis (2) HIV disease (3) HCV antibody positive (4) Hypertensive urgency (5) Substance abuse Assessment Patient admitted with hypertensive urgency (1) ESRD (end stage renal disease) on dialysis (2) HIV disease (3) Cocaine abuse (4) Noncompliance (5) Anemia of chronic kidney disease Plan June 11: Dialyzed yesterday. Due for next dialysis June 13. Stable from renal standpoint of view for discharge. Continue per ID advice. June 10: Seen during dialysis. Had tunneled catheter placed yesterday. No labs drawn today. Will check lab tomorrow. Continue same management. June 09: Still waiting for placement of ID clearance for tunneled catheter placement. Due for dialysis tomorrow. Labs reviewed. Medication list reviewed. June 08: Tunnel catheter was not placed pending ID clearance. Due for dialysis today. Labs reviewed. Continue per consultants. June 07: Patient due for placement of tunneled catheter. Patient due for dialysis tomorrow. After insertion of the tunneled catheter patient can be discharged from a renal standpoint of view and continue outpatient dialysis Friday. June 06: Due for dialysis today. Last blood cultures available is from June 01. Waiting for negative blood cultures for 48 hours to proceed with placement of tunneled catheter and then discharge. June 05: Dialyzed yesterday. Due for dialysis tomorrow. Surveillance blood cultures are done. When negative for 48 hours, will proceed with placement of tunneled catheter and discharge. June 04: Due for dialysis today. We will continue to follow blood cultures. Antibiotic for bacteremia in process. Will place tunneled catheter when patient is culture negative for 48 hours. CRP lowering. June 03: Patient had dialysis yesterday. Has a nontunneled dialysis access. Surveillance blood cultures pending. Will do dialysis tomorrow June 04. Will check lab tomorrow. June 02: Patient continues to have persistent bacteremia. Due for nontunneled dialysis catheter today. Will be dialyzed after insertion of the catheter today as her last dialysis was 3 days ago. Continue per consultants. June 01: Dialysis catheter removed May 31. Labs reviewed. Discussed with RN. Will arrange for placement of a nontunneled dialysis catheter tomorrow. We will continue to order surveillance blood cultures. When blood cultures are negative will attempt to put a tunneled catheter prior to discharge. Continue per orders. May 31: Status quo. Dialyzed yesterday. I are will remove the permacath today. Tip will be sent for culture. Surveillance blood culture ordered for today again. CRP lower today. Continue to monitor electrolytes and renal parameters. May 30: Low-grade fever persists. Due for dialysis today. As per ID recommendation will discontinue the dialysis catheter which may be the source of fever and bacteremia. Discussed with RN. Orders given. Will check labs tomorrow. May 29: Patient remains febrile. Nontoxic. Dialyzed yesterday. Next dialysis tomorrow. Preliminary blood cultures positive for gram-positive's. Most likely source dialysis catheter. CRP jumped up to 14. Continue per ID advice. Keep the blood pressure and blood sugar in check. Will obtain repeated blood culture tomorrow during dialysis. Patient on vancomycin. May 28: Patient febrile. Cultures taken during dialysis. Vancomycin 1 dose given. Will check labs tomorrow. A temporary catheter may need to be discontinued and replaced if blood cultures positive. Continue per consultants. May 27: Patient in mild distress due to itching and generalized pain. Was dialyzed yesterday. Will dialyze again tomorrow. Will start on Atarax [id number] for itching. Labs reviewed, medications reviewed and adjusted. B12 subcu and to p.o. Synthroid ordered Patient was dialyzed 05/24, will dialyze today Will adjust blood pressure medication Per orders 2. Dr. Townsend to call urologist the catheter again yet to talk to the person was put in the disc note thank you very much by Subjective ROS Limited/Unobtainable: No Constitutional: Reports: malaise Objective Objective Last 24 Hour Vital Signs Date Time Temp Pulse Resp B/P (MAP) Pulse Ox O2 Delivery O2 Flow Rate FiO2 06/11/20 10:19 98.2 06/11/20 09:00 Room Air 06/11/20 08:37 85 135/65 06/11/20 08:00 97.1 85 18 135/65 (88) 96 06/11/20 05:33 149/74 06/11/20 04:00 98.2 105 20 149/81 (103) 92 06/11/20 03:38 98.4 06/11/20 00:00 98.4 75 18 138/72 (94) 94 06/10/20 22:16 138/72 11/7/20 21:51 68 20 138/72 94 06/10/20 21:48 Room Air 06/10/20 21:04 98.3 06/10/20 20:34 70 20 143/74 92 06/10/20 20:00 98.3 88 20 143/74 (97) 95 06/10/20 16:00 97.2 77 19 120/73 (89) 97 06/10/20 13:49 97.1 Intake and Output 06/10/20 06/11/20 19:00 07:00 Intake Total 350 ml 320 ml Output Total 4000 ml Balance -3650 ml 320 ml Intake Oral 240 ml 320 ml IV Total 110 ml Hemodialysis UF 4000 ml # Voids 1 # Bowel Movements 3 3 Current Medications Medications (Trade) Dose Ordered Sig/Rochelle Route PRN Reason Start Time Stop Time Status Last Admin Dose Admin Acetaminophen (Tylenol) 650 mg Q6H PRN ORAL Temp >100.5 05/27/20 18:00 06/26/20 17:59 05/29/20 22:27 Acetaminophen/ Hydrocodone Bitart ([place] 10/325) 1 tab Q4H PRN ORAL Moderate Pain (4-6) 06/05/20 12:00 06/12/20 11:59 06/10/20 08:52 Amlodipine Besylate (Norvasc) 10 mg DAILY ORAL 05/24/20 16:00 06/23/20 15:59 06/11/20 08:37 Cefazolin Sodium 1 gm/Dextrose 55 ml @ 110 mls/hr DAILY IVPB 06/06/20 09:00 06/13/20 08:59 06/11/20 08:38 Diphenhydramine HCl (Benadryl) 25 mg Q6H PRN ORAL Itching 05/25/20 08:30 06/24/20 08:29 06/11/20 05:33 Docusate Sodium (Colace) 100 mg TID ORAL 05/25/20 13:00 06/23/20 17:59 06/10/20 13:19 Epoetin Jose (Epoetin Jose(ESRD on dialysis)) 10,000 unit FRI-FRI-FRI SUBQ 05/26/20 21:00 08/24/20 20:59 06/09/20 21:21 Escitalopram Oxalate (Lexapro) 10 mg DAILY ORAL 06/09/20 13:45 07/09/20 13:44 06/11/20 08:37 Heparin Sodium (Porcine) (Heparin 5000 units/ml) 5,000 units EVERY 12 HOURS SUBQ 05/24/20 21:00 07/08/20 20:59 06/11/20 08:40 Heparin Sodium/ Sodium Chloride (Heparin 1000 units/500ml Premix) 1,000 unit ONCE PRN INJ catheter placement 06/09/20 12:45 06/11/20 12:44 Hydralazine HCl (Apresoline) 25 mg Q6H PRN ORAL For High Blood Pressure 05/24/20 16:00 08/22/20 15:59 05/31/20 01:50 Hydralazine HCl (Apresoline) 75 mg EVERY 8 HOURS ORAL 05/31/20 14:00 08/29/20 13:59 06/11/20 05:33 Hydromorphone HCl (Dilaudid) 0.5 mg Q6H PRN IVP Severe Pain (Pain Scale 7-10) 06/06/20 09:34 06/13/20 09:33 06/11/20 09:49 Hydroxyzine HCl (Atarax) 25 mg Q8H ORAL 05/27/20 20:30 06/26/20 20:29 06/11/20 05:33 Levothyroxine Sodium (Synthroid) 75 mcg Q24H ORAL 05/27/20 06:30 06/26/20 06:29 06/11/20 05:33 Lidocaine HCl (Xylocaine Viscous) 15 ml Q4H PRN ORAL For Pain 05/31/20 18:15 08/29/20 18:14 Lidocaine/ Epinephrine (Lidocaine 2%/ Epi 20ml) 20 ml ONCE PRN INJ catheter placement 06/09/20 12:45 06/11/20 12:44 Lorazepam (Ativan) 1 mg Q6H PRN ORAL For Anxiety 06/05/20 10:00 06/12/20 09:59 06/10/20 20:34 Nitroglycerin (Ntg) 0.4 mg Q5M PRN SL Prn Chest Pain 05/24/20 10:45 06/23/20 10:44 Ondansetron HCl (Zofran) 4 mg Q6H PRN IVP Nausea & Vomiting 05/24/20 16:00 06/23/20 15:59 06/11/20 10:40 Pantoprazole (Protonix) 40 mg BID ORAL 05/29/20 18:00 06/25/20 08:59 06/11/20 08:37 Patient Own Medication (Patient's Own Med) 1 ea BID ORAL 05/30/20 18:00 06/29/20 17:59 06/11/20 08:38 Patient Own Medication (Patient's Own Med) 1 ea BID ORAL 05/30/20 18:00 06/29/20 17:59 06/11/20 08:38 Patient Own Medication (Patient's Own Med) 1 ea DAILY ORAL 05/31/20 09:00 06/30/20 08:59 06/11/20 08:38 Sodium Chloride 1,000 ml @ 500 mls/hr Q2H PRN IVLG sbp<90 during hd 05/25/20 17:30 06/24/20 17:29 Laboratory Tests 06/11/20 08:30: White Blood Count 5.4, Red Blood Count 3.52L, Hemoglobin 10.2L, Hematocrit 34.4L , Mean Corpuscular Volume 98, Mean Corpuscular Hemoglobin 29.1, Mean Corpuscular Hemoglobin Concent 29.7L, Red Cell Distribution Width 16.5H, Platelet Count 213, Mean Platelet Volume 6.3L, Neutrophils (%) (Auto) 72.7, Lymphocytes (%) (Auto) 12.8L, Monocytes (%) (Auto) 8.5, Eosinophils (%) (Auto) 3.9H, Basophils (%) (Auto) 2.2H, Sodium Level 136, Potassium Level 4.5, Chloride Level 99, Carbon Dioxide Level 30, Anion Gap 7, Blood Urea Nitrogen 16, Creatinine 5.8H, Estimat Glomerular Filtration Rate 8.8, Glucose Level 96, Calcium Level 8.2L, Phosphorus Level 3.9, Total Bilirubin 0.3, Aspartate Amino Transf (AST/SGOT) 33, Alanine Aminotransferase (ALT/SGPT) < 6L, Alkaline Phosphatase 100, C-Reactive Protein, Quantitative 0.6, Total Protein 9.4H, Albumin 3.0L, Globulin 6.4, Albumin/Globulin Ratio 0.5L Height (Feet): 5 Height (Inches): 5.00 Weight (Pounds): 160 General Appearance: no apparent distress Respiratory/Chest: decreased breath sounds Abdomen: soft Objective No change Jack Pryor MD Jun 11, 2020 12:11
--- NOTE | 2020-06-11 14:08 | Cardiology Report ---
APPROVED REPORT EXAM: Two-dimensional and M-mode echocardiogram with Doppler and color Doppler. INDICATION Endocarditis M-Mode DIMENSIONS IVSd0.9 (0.7-1.1cm)Left Atrium (MM)4.1 (1.6-4.0cm) LVDd1.4 (3.5-5.6cm)Aortic Root3.6 (2.0-3.7cm) PWd5.5 (0.7-1.1cm)Aortic Cusp Exc.2.0 (1.5-2.0cm) IVSs3.0 cmEPSS0.3 (>1.0cm) LVDs1.0 (2.5-4.0cm) PWs1.9 cm <Conclusion> Normal left ventricular chamber size, systolic function and wall motion. Left ventricular ejection fraction estimated to be 60 %. No evidence of left ventricular hypertrophy. Possible large posterior pleural effusion. Mild left atrial enlargement. Mild LV septal flattening, suggests RV volume overload. Mild right ventricular enlargement. Right atrial size within normal limits. Focal aortic valve sclerosis with adequate cusp excursion. Thickened mitral valve leaflets with normal excursion. Mitral annulus and aortic root calcification. Normal pulmonic valve structure. Normal tricuspid valve structure. IVC measured at 2.2 cm with slight physiologic collapse suggestive of increased RA pressure. No discrete vegetations seen, however SBE may not be excluded by transthoracic 2-D echo. A color flow and spectral Doppler study was performed and revealed: No aortic regurgitation. Trace mitral regurgitation. Mitral inflow indicate normal left ventricular diastolic function. Mild tricuspid regurgitation. Tricuspid systolic velocities suggests peak right ventricular systolic pressure of 58 mmHg, consistent with moderate pulmonary hypertension.
--- NOTE | 2020-06-11 14:39 | Cardiology Progress Note ---
Subjective DATE OF SERVICE: Jun 11, 2020 Tunneled dialysis catheter placed 06/09/20. Blood cultures positive for S.aureus (MSSA); patient remains on IV antibiotics. Still c/o pain and frequently asking for more pain medications; still appears comfortable. No CP or SOB BP range stable overall, with rare BP elevations noted. Objective Last 24 Hour Vital Signs Date Time Temp Pulse Resp B/P (MAP) Pulse Ox O2 Delivery O2 Flow Rate FiO2 06/11/20 13:13 131/71 06/11/20 12:00 98.3 69 18 131/71 (91) 97 06/11/20 10:19 98.2 06/11/20 09:00 Room Air 06/11/20 08:37 85 135/65 06/11/20 08:00 97.1 85 18 135/65 (88) 96 06/11/20 05:33 149/74 06/11/20 04:00 98.2 105 20 149/81 (103) 92 06/11/20 03:38 98.4 06/11/20 00:00 98.4 75 18 138/72 (94) 94 06/10/20 22:16 138/72 06/10/20 21:51 68 20 138/72 94 06/10/20 21:48 Room Air 06/10/20 21:04 98.3 06/10/20 20:34 70 20 143/74 92 06/10/20 20:00 98.3 88 20 143/74 (97) 95 06/10/20 16:00 97.2 77 19 120/73 (89) 97 ROS: unchanged from my evaluation of 05/24/20 RHYTHM: NSR, SB, PACs LUNGS: lungs clear bilaterally, other - Tunneled cath site clean without bleeding. CARDIAC: normal rate, regular rhythm, normal S1 and S2, gallop/S4 ABDOMEN: non tender, soft, no organomegaly, no mass EXTREMITIES: No edema, other - skin wound per nursing documentation Laboratory Tests Test 06/11/20 08:30 White Blood Count 5.4 K/UL (4.8-10.8) Red Blood Count 3.52 M/UL (4.20-5.40) L Hemoglobin 10.2 G/DL (12.0-16.0) L Hematocrit 34.4 % (37.0-47.0) L Mean Corpuscular Volume 98 FL (80-99) Mean Corpuscular Hemoglobin 29.1 PG (27.0-31.0) Mean Corpuscular Hemoglobin Concent 29.7 G/DL (32.0-36.0) L Red Cell Distribution Width 16.5 % (11.6-14.8) H Platelet Count 213 K/UL (150-450) Mean Platelet Volume 6.3 FL (6.5-10.1) L Neutrophils (%) (Auto) 72.7 % (45.0-75.0) Lymphocytes (%) (Auto) 12.8 % (20.0-45.0) L Monocytes (%) (Auto) 8.5 % (1.0-10.0) Eosinophils (%) (Auto) 3.9 % (0.0-3.0) H Basophils (%) (Auto) 2.2 % (0.0-2.0) H Sodium Level 136 MMOL/L (136-145) Potassium Level 4.5 MMOL/L (3.5-5.1) Chloride Level 99 MMOL/L (98-107) Carbon Dioxide Level 30 MMOL/L (21-32) Anion Gap 7 mmol/L (5-15) Blood Urea Nitrogen 16 mg/dL (7-18) Creatinine 5.8 MG/DL (0.55-1.30) H Estimat Glomerular Filtration Rate 8.8 mL/min (>60) Glucose Level 96 MG/DL (74-106) Calcium Level 8.2 MG/DL (8.5-10.1) L Phosphorus Level 3.9 MG/DL (2.5-4.9) Total Bilirubin 0.3 MG/DL (0.2-1.0) Aspartate Amino Transf (AST/SGOT) 33 U/L (15-37) Alanine Aminotransferase (ALT/SGPT) < 6 U/L (12-78) L Alkaline Phosphatase 100 U/L (46-116) C-Reactive Protein, Quantitative 0.6 mg/dL (0.00-0.90) Total Protein 9.4 G/DL (6.4-8.2) H Albumin 3.0 G/DL (3.4-5.0) L Globulin 6.4 g/dL Albumin/Globulin Ratio 0.5 (1.0-2.7) L Assessment/Plan Assessment/Plan Fevers - due to line infection. Now s/p PermCath replacement No increased endocarditis risk noted by 2D Echo criteria. Acute on chronic Diastolic CHF Hypertensive urgency - resolved; BP range minimally elevated at times ESRD - with history of frequently missed dialysis sessions as outpatient. Anginal episode precipitated by above; no recurrence since admission. HHD Sinus node disease with hx of tachy-alysa syndrome; patient has refused pacemaker in past. Chronic cocaine abuse Buttocks wound Antimicrobials per ID HD/UF Titrate antiHTN and anti-failure regimen as needed. Counselled repeatedly regarding cocaine use Skin care Symptom-guided pain control DC plan tomorrow Nam Barnett MD Jun 11, 2020 14:39
[2020-06-11 16:00] VITALS: BP 120/67
[2020-06-11] MEDS: LORazepam 1mg tab ORAL PRN (20:18)
[2020-06-11 20:45] VITALS: BP 132/61
[2020-06-12] VITALS: BP 139/65
[2020-06-12 04:00] VITALS: BP 139/65
[2020-06-12] MEDS: HydrOXYzine tab 25mg tab ORAL SCH ×2 (04:09→13:46)
[2020-06-12] MEDS: Hydromorphone 0.5mg/0.5ml inj IVP PRN ×2 (04:10→10:13)
[2020-06-12] MEDS: HydrALAZINE 25mg tab ORAL SCH ×2 (05:34→13:46)
[2020-06-12 08:00] VITALS: BP 134/65
[2020-06-12] MEDS: Patient's Own Med - Ritonavir 100mg ORAL SCH (08:34)
[2020-06-12] MEDS: HYDROcodone/Acetamin 10/325 tab ORAL PRN (08:34)
[2020-06-12] MEDS: Docusate 100mg cap ORAL SCH ×2 (08:34→13:46)
[2020-06-12] MEDS: ceFAZolin sod 1 GM in D5W 55 ML IVPB SCH (08:34)
[2020-06-12] MEDS: Patient's Own Med - Tivicay 50mg ORAL SCH (08:34)
[2020-06-12] MEDS: Heparin 5000 units/ml inj SUBQ SCH (08:37)
--- NOTE | 2020-06-12 10:21 | Nephrology Progress Note ---
Assessment/Plan Problem List: (1) ESRD (end stage renal disease) on dialysis (2) HIV disease (3) HCV antibody positive (4) Hypertensive urgency (5) Substance abuse Assessment Patient admitted with hypertensive urgency (1) ESRD (end stage renal disease) on dialysis (2) HIV disease (3) Cocaine abuse (4) Noncompliance (5) Anemia of chronic kidney disease Plan June 12: Dialyzed June 10. Due for dialysis June 13. Stable from renal standpoint of view for discharge. Continue per ID advice. Medication list reviewed. June 11: Dialyzed yesterday. Due for next dialysis June 13. Stable from renal standpoint of view for discharge. Continue per ID advice. June 10: Seen during dialysis. Had tunneled catheter placed yesterday. No labs drawn today. Will check lab tomorrow. Continue same management. June 09: Still waiting for placement of ID clearance for tunneled catheter placement. Due for dialysis tomorrow. Labs reviewed. Medication list reviewed. June 08: Tunnel catheter was not placed pending ID clearance. Due for dialysis today. Labs reviewed. Continue per consultants. June 07: Patient due for placement of tunneled catheter. Patient due for dialysis tomorrow. After insertion of the tunneled catheter patient can be discharged from a renal standpoint of view and continue outpatient dialysis Friday. June 06: Due for dialysis today. Last blood cultures available is from June 01. Waiting for negative blood cultures for 48 hours to proceed with placement of tunneled catheter and then discharge. June 05: Dialyzed yesterday. Due for dialysis tomorrow. Surveillance blood cultures are done. When negative for 48 hours, will proceed with placement of tunneled catheter and discharge. June 04: Due for dialysis today. We will continue to follow blood cultures. Antibiotic for bacteremia in process. Will place tunneled catheter when patient is culture negative for 48 hours. CRP lowering. June 03: Patient had dialysis yesterday. Has a nontunneled dialysis access. Surveillance blood cultures pending. Will do dialysis tomorrow June 04. Will check lab tomorrow. June 02: Patient continues to have persistent bacteremia. Due for nontunneled dialysis catheter today. Will be dialyzed after insertion of the catheter today as her last dialysis was 3 days ago. Continue per consultants. June 01: Dialysis catheter removed May 31. Labs reviewed. Discussed with RN. Will arrange for placement of a nontunneled dialysis catheter tomorrow. We will continue to order surveillance blood cultures. When blood cultures are negative will attempt to put a tunneled catheter prior to discharge. Continue per orders. May 31: Status quo. Dialyzed yesterday. I are will remove the permacath today. Tip will be sent for culture. Surveillance blood culture ordered for today again. CRP lower today. Continue to monitor electrolytes and renal parameters. May 30: Low-grade fever persists. Due for dialysis today. As per ID recommendation will discontinue the dialysis catheter which may be the source of fever and bacteremia. Discussed with RN. Orders given. Will check labs tomorrow. May 29: Patient remains febrile. Nontoxic. Dialyzed yesterday. Next dialysis tomorrow. Preliminary blood cultures positive for gram-positive's. Most likely source dialysis catheter. CRP jumped up to 14. Continue per ID advice. Keep the blood pressure and blood sugar in check. Will obtain repeated blood culture tomorrow during dialysis. Patient on vancomycin. May 28: Patient febrile. Cultures taken during dialysis. Vancomycin 1 dose given. Will check labs tomorrow. A temporary catheter may need to be discontinued and replaced if blood cultures positive. Continue per consultants. May 27: Patient in mild distress due to itching and generalized pain. Was dialyzed yesterday. Will dialyze again tomorrow. Will start on Atarax [id number] for itching. Labs reviewed, medications reviewed and adjusted. B12 subcu and to p.o. Synthroid ordered Patient was dialyzed 05/24, will dialyze today Will adjust blood pressure medication Per orders 2. Dr. Townsend to call urologist the catheter again yet to talk to the person was put in the disc note thank you very much by Subjective ROS Limited/Unobtainable: No Constitutional: Reports: malaise Objective Objective Last 24 Hour Vital Signs Date Time Temp Pulse Resp B/P (MAP) Pulse Ox O2 Delivery O2 Flow Rate FiO2 06/12/20 09:04 98.0 06/12/20 09:00 Room Air 06/12/20 08:34 75 134/65 06/12/20 08:00 98.0 75 18 134/65 (88) 94 06/12/20 05:34 134/68 06/12/20 04:00 98.6 84 18 139/65 (89) 97 06/12/20 00:00 98.8 85 18 139/65 (89) 95 06/11/20 22:09 139/65 06/11/20 21:00 Room Air 06/11/20 20:48 85 20 139/65 95 06/11/20 20:45 97.7 80 18 132/61 (84) 97 06/11/20 20:18 80 20 133/70 97 06/11/20 16:38 98.3 06/11/20 16:00 97.1 86 20 120/67 (84) 97 06/11/20 13:13 131/71 06/11/20 12:00 98.3 69 18 131/71 (91) 97 Intake and Output 06/11/20 06/12/20 19:00 07:00 Intake Total 1310 ml 250 ml Balance 1310 ml 250 ml Intake Oral 1200 ml 250 ml IV Total 110 ml # Bowel Movements 2 1 Current Medications Medications (Trade) Dose Ordered Sig/Rochelle Route PRN Reason Start Time Stop Time Status Last Admin Dose Admin Acetaminophen (Tylenol) 650 mg Q6H PRN ORAL Temp >100.5 05/27/20 18:00 06/26/20 17:59 05/29/20 22:27 Acetaminophen/ Hydrocodone Bitart ([place] 10/325) 1 tab Q4H PRN ORAL Moderate Pain (4-6) 06/05/20 12:00 06/12/20 11:59 06/12/20 08:34 Amlodipine Besylate (Norvasc) 10 mg DAILY ORAL 05/24/20 16:00 06/23/20 15:59 06/12/20 08:34 Cefazolin Sodium 1 gm/Dextrose 55 ml @ 110 mls/hr DAILY IVPB 06/06/20 09:00 06/13/20 08:59 06/12/20 08:34 Diphenhydramine HCl (Benadryl) 25 mg Q6H PRN ORAL Itching 05/25/20 08:30 06/24/20 08:29 06/11/20 05:33 Docusate Sodium (Colace) 100 mg TID ORAL 05/25/20 13:00 06/23/20 17:59 06/12/20 08:34 Epoetin Jose (Epoetin Jose(ESRD on dialysis)) 10,000 unit FRI-FRI-FRI SUBQ 05/26/20 21:00 08/24/20 20:59 06/09/20 21:21 Escitalopram Oxalate (Lexapro) 10 mg DAILY ORAL 06/09/20 13:45 07/09/20 13:44 06/12/20 08:34 Heparin Sodium (Porcine) (Heparin 5000 units/ml) 5,000 units EVERY 12 HOURS SUBQ 05/24/20 21:00 07/08/20 20:59 06/12/20 08:37 Hydralazine HCl (Apresoline) 25 mg Q6H PRN ORAL For High Blood Pressure 05/24/20 16:00 08/22/20 15:59 05/31/20 01:50 Hydralazine HCl (Apresoline) 75 mg EVERY 8 HOURS ORAL 05/31/20 14:00 08/29/20 13:59 06/12/20 05:34 Hydromorphone HCl (Dilaudid) 0.5 mg Q6H PRN IVP Severe Pain (Pain Scale 7-10) 06/06/20 09:34 06/13/20 09:33 06/12/20 10:13 Hydroxyzine HCl (Atarax) 25 mg Q8H ORAL 05/27/20 20:30 06/26/20 20:29 06/12/20 04:09 Levothyroxine Sodium (Synthroid) 75 mcg Q24H ORAL 05/27/20 06:30 06/26/20 06:29 06/12/20 05:33 Lidocaine HCl (Xylocaine Viscous) 15 ml Q4H PRN ORAL For Pain 05/31/20 18:15 08/29/20 18:14 Nitroglycerin (Ntg) 0.4 mg Q5M PRN SL Prn Chest Pain 05/24/20 10:45 06/23/20 10:44 Ondansetron HCl (Zofran) 4 mg Q6H PRN IVP Nausea & Vomiting 05/24/20 16:00 06/23/20 15:59 06/11/20 10:40 Pantoprazole (Protonix) 40 mg BID ORAL 05/29/20 18:00 06/25/20 08:59 06/12/20 08:34 Patient Own Medication (Patient's Own Med) 1 ea BID ORAL 05/30/20 18:00 06/29/20 17:59 11/9/20 08:34 Patient Own Medication (Patient's Own Med) 1 ea BID ORAL 05/30/20 18:00 06/29/20 17:59 06/12/20 08:34 Patient Own Medication (Patient's Own Med) 1 ea DAILY ORAL 05/31/20 09:00 06/30/20 08:59 06/12/20 08:34 Sodium Chloride 1,000 ml @ 500 mls/hr Q2H PRN IVLG sbp<90 during hd 05/25/20 17:30 06/24/20 17:29 No blood drawn today Height (Feet): 5 Height (Inches): 5.00 Weight (Pounds): 160 General Appearance: no apparent distress Objective No change Jack Pryor MD Jun 12, 2020 10:20
[2020-06-12 12:00] VITALS: BP 129/67
--- NOTE | 2020-06-12 12:00 | Infectious Diseases Prog Note ---
"Assessment/Plan Assessment/Plan antibiotics : ancef A 1. staph aureus sepsis s/p catheter removal 2. proteus catheter infection 3. renal failure on HD 4. HIV 5. hypertension 6. COVID 19 negative x 2 7. e.coli | proteus UTI s/p rx P 1. continue ancef after dialysis 2 more days 2. will follow up cultures Subjective Constitutional: Denies: fever, chills Respiratory: Denies: shortness of breath, dry cough Gastrointestinal/Abdominal: Denies: nausea, vomiting, diarrhea Musculoskeletal: Reports: pain - decreased Allergies: Coded Allergies: ASPIRIN (Unverified Allergy, Unknown, 01/16/20) IODINE (Verified Allergy, Unknown, 01/07/20) Uncoded Allergies: CONTRAST DYE (Allergy, Unknown, 01/07/20) NSAID (Allergy, Unknown, 04/24/20) Objective Last 24 Hour Vital Signs Date Time Temp Pulse Resp B/P (MAP) Pulse Ox O2 Delivery O2 Flow Rate FiO2 06/12/20 10:43 98.0 06/12/20 09:04 98.0 06/12/20 09:00 Room Air 06/12/20 08:34 75 134/65 06/12/20 08:00 98.0 75 18 134/65 (88) 94 06/12/20 05:34 134/68 06/12/20 04:00 98.6 84 18 139/65 (89) 97 06/12/20 00:00 98.8 85 18 139/65 (89) 95 06/11/20 22:09 139/65 06/11/20 21:00 Room Air 06/11/20 20:48 85 20 139/65 95 06/11/20 20:45 97.7 80 18 132/61 (84) 97 06/11/20 20:18 80 20 133/70 97 06/11/20 16:38 98.3 06/11/20 16:00 97.1 86 20 120/67 (84) 97 06/11/20 13:13 131/71 06/11/20 12:00 98.3 69 18 131/71 (91) 97 Height (Feet): 5 Height (Inches): 5.00 Weight (Pounds): 160 Current Medications Medications (Trade) Dose Ordered Sig/Rochelle Route PRN Reason Start Time Stop Time Status Last Admin Dose Admin Acetaminophen (Tylenol) 650 mg Q6H PRN ORAL Temp >100.5 05/27/20 18:00 06/26/20 17:59 05/29/20 22:27 Amlodipine Besylate (Norvasc) 10 mg DAILY ORAL 05/24/20 16:00 06/23/20 15:59 06/12/20 08:34 Cefazolin Sodium 1 gm/Dextrose 55 ml @ 110 mls/hr DAILY IVPB 06/06/20 09:00 06/13/20 08:59 06/12/20 08:34 Diphenhydramine HCl (Benadryl) 25 mg Q6H PRN ORAL Itching 05/25/20 08:30 06/24/20 08:29 06/11/20 05:33 Docusate Sodium (Colace) 100 mg TID ORAL 05/25/20 13:00 06/23/20 17:59 06/12/20 08:34 Epoetin Jose (Epoetin Jose(ESRD on dialysis)) 10,000 unit FRI- SUBQ 05/26/20 21:00 08/24/20 20:59 06/09/20 21:21 Escitalopram Oxalate (Lexapro) 10 mg DAILY ORAL 06/09/20 13:45 07/09/20 13:44 06/12/20 08:34 Heparin Sodium (Porcine) (Heparin 5000 units/ml) 5,000 units EVERY 12 HOURS SUBQ 05/24/20 21:00 07/08/20 20:59 06/12/20 08:37 Hydralazine HCl (Apresoline) 25 mg Q6H PRN ORAL For High Blood Pressure 05/24/20 16:00 08/22/20 15:59 05/31/20 01:50 Hydralazine HCl (Apresoline) 75 mg EVERY 8 HOURS ORAL 05/31/20 14:00 08/29/20 13:59 06/12/20 05:34 Hydromorphone HCl (Dilaudid) 0.5 mg Q6H PRN IVP Severe Pain (Pain Scale 7-10) 06/06/20 09:34 06/13/20 09:33 06/12/20 10:13 Hydroxyzine HCl (Atarax) 25 mg Q8H ORAL 05/27/20 20:30 06/26/20 20:29 06/12/20 04:09 Levothyroxine Sodium (Synthroid) 75 mcg Q24H ORAL 05/27/20 06:30 06/26/20 06:29 06/12/20 05:33 Lidocaine HCl (Xylocaine Viscous) 15 ml Q4H PRN ORAL For Pain 05/31/20 18:15 08/29/20 18:14 Nitroglycerin (Ntg) 0.4 mg Q5M PRN SL Prn Chest Pain 05/24/20 10:45 06/23/20 10:44 Ondansetron HCl (Zofran) 4 mg Q6H PRN IVP Nausea & Vomiting 05/24/20 16:00 06/23/20 15:59 06/11/20 10:40 Pantoprazole (Protonix) 40 mg BID ORAL 05/29/20 18:00 06/25/20 08:59 06/12/20 08:34 Patient Own Medication (Patient's Own Med) 1 ea BID ORAL 05/30/20 18:00 06/29/20 17:59 06/12/20 08:34 Patient Own Medication (Patient's Own Med) 1 ea BID ORAL 05/30/20 18:00 06/29/20 17:59 06/12/20 08:34 Patient Own Medication (Patient's Own Med) 1 ea DAILY ORAL 05/31/20 09:00 06/30/20 08:59 06/12/20 08:34 Sodium Chloride 1,000 ml @ 500 mls/hr Q2H PRN IVLG sbp<90 during hd 05/25/20 17:30 06/24/20 17:29 Elvis Garibay MD Jun 12, 2020 12:00"
[2020-06-12] MEDS ORDERED: LEXAPRO10 MG ORAL (12:58)
[2020-06-12] MEDS ORDERED: NORCO 10-325 T1 EACH ORAL (12:59)
[2020-06-12] MEDS ORDERED: ATIVAN1 MG ORAL (13:00)
--- NOTE | 2020-06-12 15:06 | Discharge Summary ---
Discharge Summary Hospital Course Date of Admission May 24, 2020 at 12:15 Date of Discharge Admitting Diagnosis fluid overloaed, esrd HPI Concha Mahmood is a 69 year old female who was admitted on May 24, 2020 at 12:15 for Fluid Overload,End Stage Renal Disease Consultations cardiology nephrology ID Hospital Course pt was admitted for sepsis and bacteremia +blood cultures. Perm cath removed. ID, cardiology and nephrology consulted. Pt had temporary catheter placed for HD New perm cath placed once cleared by ID pt discharged home in stable condition Discharge Condition Upon Discharge: improving Discharge Vital Signs Last Vital Signs Date Time Temp Pulse Resp B/P (MAP) Pulse Ox O2 Delivery O2 Flow Rate FiO2 06/12/20 13:46 129/67 06/12/20 12:00 98.7 83 19 96 06/12/20 09:00 Room Air Discharge Disposition Patient was discharged to Michael Peralta MD Jun 12, 2020 15:06
[2020-06-12 16:00] VITALS: BP 127/59
--- NOTE | 2020-06-12 21:11 | Cardiology Progress Note ---
Subjective DATE OF SERVICE: Jun 12, 2020 Tunneled dialysis catheter placed 06/09/20. Blood cultures positive for S.aureus (MSSA); patient remains on IV antibiotics. Still c/o pain and frequently asking for more pain medications; still appears comfortable. No CP or SOB BP range stable overall. Objective Last 24 Hour Vital Signs Date Time Temp Pulse Resp B/P (MAP) Pulse Ox O2 Delivery O2 Flow Rate FiO2 06/12/20 16:00 98.4 76 18 127/59 (81) 95 06/12/20 13:46 129/67 06/12/20 12:00 98.7 83 19 129/67 (87) 96 06/12/20 10:43 98.0 06/12/20 09:04 98.0 06/12/20 09:00 Room Air 06/12/20 08:34 75 134/65 06/12/20 08:00 98.0 75 18 134/65 (88) 94 06/12/20 05:34 134/68 06/12/20 04:00 98.6 84 18 139/65 (89) 97 06/12/20 00:00 98.8 85 18 139/65 (89) 95 06/11/20 22:09 139/65 ROS: unchanged from my evaluation of 05/24/20 RHYTHM: NSR, SB, PACs LUNGS: lungs clear bilaterally, other - Tunneled cath site clean without bleeding. CARDIAC: normal rate, regular rhythm, normal S1 and S2, gallop/S4 ABDOMEN: non tender, soft, no organomegaly, no mass EXTREMITIES: No edema, other - skin wound per nursing documentation Assessment/Plan Assessment/Plan Resolved fevers - due to line infection. Now s/p PermCath replacement No increased endocarditis risk noted by 2D Echo criteria. Acute on chronic Diastolic CHF Hypertensive urgency - resolved; BP range minimally elevated at times ESRD - with history of frequently missed dialysis sessions as outpatient. Anginal episode precipitated by above; no recurrence since admission. HHD Sinus node disease with hx of tachy-alysa syndrome; patient has refused pacem tip in past. Chronic cocaine abuse Buttocks wound Antimicrobials with HD HD/UF per outpatient schedule Continue current antiHTN and anti-failure regimen. Counselled repeatedly regarding cocaine use Skin care Symptom-guided pain control DC plan today Nam Barnett MD Jun 12, 2020 21:11
--- NOTE | 2020-06-13 23:01 | Psychiatric Progress Note ---
Psychiatry Progress Note Psychiatry Progress Note Subjective 06/12/20 Neurological/Psychiatric: Reports: anxiety, depressed, emotional problems Allergies: Coded Allergies: ASPIRIN (Unverified Allergy, Unknown, 01/16/20) IODINE (Verified Allergy, Unknown, 01/07/20) Uncoded Allergies: CONTRAST DYE (Allergy, Unknown, 01/07/20) NSAID (Allergy, Unknown, 04/24/20) Objective Data Height (Feet): 5 Height (Inches): 5.00 Weight (Pounds): 160 General Appearance: no apparent distress Additional Comments: alert and oriented times self, place, situation. Mood is anxious and depressed. Affect is blunted, congruent with mood. Thought process is concrete. Thought content, no suicidal or homicidal ideation. Cognition is intact. Insight and judgment is fair. ASSESSMENT: [place] I Anxiety disorder. Depressive disorder. [place] II Deferred. [place] III As above. [place] IV Low. [place] V 20. PLAN: 1. The patient is on Ativan as needed, which will be continued. 2. Lexapro 10 mg in the morning. 3. Provide the patient with reality orientation and supportive therapy. Assessment/Plan Status: stable, progressing Emely Mcallister MD Jun 13, 2020 23:01
== END 2020-06-12 16:30 | disposition home health service (06) | DRG 291 ==
LOC: EDBD 09:57 → EMR 12:11 → 2E 12:15 → EDBEDREQ 13:33 → 4E 05-26 21:37
DX: I13.2 Hypertensive heart and chronic kidney disease with heart failure and with stage 5 chronic kidney disease, or end stage renal disease (principal); N18.6 End stage renal disease; I50.33 Acute on chronic diastolic (congestive) heart failure; A41.01 Sepsis due to Methicillin susceptible Staphylococcus aureus; T82.7XXA Infection and inflammatory reaction due to other cardiac and vascular devices, implants and grafts, initial encounter; N39.0 Urinary tract infection, site not specified; B20 Human immunodeficiency virus [HIV] disease; I16.0 Hypertensive urgency; E87.6 Hypokalemia; J44.9 Chronic obstructive pulmonary disease, unspecified; F14.10 Cocaine abuse, uncomplicated; G89.29 Other chronic pain; Z91.15 Patient's noncompliance with renal dialysis; E11.40 Type 2 diabetes mellitus with diabetic neuropathy, unspecified; E11.22 Type 2 diabetes mellitus with diabetic chronic kidney disease; Z99.2 Dependence on renal dialysis; D63.1 Anemia in chronic kidney disease; E87.5 Hyperkalemia; F32.9 Major depressive disorder, single episode, unspecified; F41.9 Anxiety disorder, unspecified; I20.9 Angina pectoris, unspecified; B96.20 Unspecified Escherichia coli [E. coli] as the cause of diseases classified elsewhere; B96.4 Proteus (mirabilis) (morganii) as the cause of diseases classified elsewhere; Z20.828 Contact with and (suspected) exposure to other viral communicable diseases
CPT/HCPCS: 36415; 36558; 36569; 36589; 71045; 76000; 76937; 80053; 80061; 80202; 81001; 82607; 82728; 82746; 82977; 83036; 83540; 83550; 83735; 83880; 84100; 84443; 84484; 84550; 85007; 85025; 85610; 85730; 86140; 86706; 87040; 87070; 87081; 87086; 87181; 93005; 93306; 99291; C9399; J2405; U0002

== ENCOUNTER 2020-06-25 00:08 | Inpatient (IN) | payer MEDICARE, MEDICAID ==
[2020-06-25] VITALS (7 sets, daily range): BP systolic 142–206; BP diastolic 78–112
[~2020-06-25] VITALS: Ht 162.6 cm; Wt 74.8 kg
[~2020-06-25 00:08] MED LIST changes: +HYDROXYZINE HCL25 M1 PO; +LEXAPRO10 MG ORAL; +TRAZODONE HCL50 MG ORAL
--- NOTE | 2020-06-25 00:14 | NUR ---
ED Nurse Note: Pt BIBA from home c/o abdomial pain for several hours Addendum: 06/25/20 at 0057 by KDEARING C/o 10 abdominal pain for several hours, reports N as well. Pt is A&Ox4, VSS, pt placed on cardiac exercise specialist. ERMD at bedside
--- NOTE | 2020-06-25 00:24 | Emergency Room Report ---
History of Present Illness General Chief Complaint: Abdominal Pain Source: Patient, Medical Record, EMS Present Illness HPI This is a 69-year-old female with history of high blood pressure, chronic pain, and renal failure on hemodialysis. Her dialysis days are Friday, and Friday. She presents with chief complaint abdominal pain. Pain is diffuse in nature. Ongoing for 2 days. No nausea no vomiting or diarrhea. No fever chills. Pain is 10 out of 10. Her [place] is not helping. Worse with palpation. Denies any trauma. Also complaining of vaginal discharge for the last 2-day also. She said that vaginal swollen and tender and burning when she pees. She said that she had this problem before. Not sexually active. She missed dialysis today. 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: No Patient History Past Medical History: see triage record, old chart reviewed, HTN, renal disease, dialysis Past Surgical History: other Pertinent Family History: none Social History: Reports: drug use - cocaine; Denies: smoking Now: No Immunizations: other Reviewed Nursing Documentation: PMH: Agreed; PSxH: Agreed Nursing Documentation-PMH Hx Cardiac Problems: No Hx Hypertension: Yes Hx Diabetes: Yes - Blood sugar currently within normal limits Hx Cancer: No Hx Gastrointestinal Problems: Yes - intractable abd pain Hx Dialysis: Yes - Hx Neurological Problems: No Hx Seizures: No - denies Hx Epilepsy: No Hx Weakness: Yes Hx Fatigue: Yes Hx Neurologic Surgery: No Hx Brain Shunt: No Review of Systems Eye: Denies: eye pain, blurred vision ENT: Denies: ear pain, nose congestion, throat swelling Respiratory: Denies: cough, shortness of breath Cardiovascular: Denies: chest pain, palpitations Gastrointestinal: Reports: abdominal pain; Denies: diarrhea, nausea, vomiting Genitourinary: Reports: vag bleed/dc Musculoskeletal: Denies: back pain, joint pain Skin: Denies: rash Neurological: Denies: headache, numbness Endocrine: Denies: increased thirst, increased urine Hematologic/Lymphatic: Denies: easy bruising All Other Systems: negative except mentioned in HPI Physical Exam Vital Signs Date Time Temp Pulse Resp B/P (MAP) Pulse Ox O2 Delivery O2 Flow Rate FiO2 06/25/20 00:10 100.0 88 18 182/100 (127) 98 Room Air Vitals with fever and elevated blood pressure Sp02 EP Interpretation: reviewed, normal General Appearance: well appearing, no apparent distress, alert Head: normocephalic, atraumatic Eyes: bilateral eye PERRL, bilateral eye EOMI ENT: hearing grossly normal, normal pharynx Neck: full range of motion, supple, no meningismus Respiratory: chest non-tender, lungs clear, normal breath sounds Cardiovascular #1: regular rate, rhythm, no murmur Gastrointestinal: normal bowel sounds, no mass, no organomegaly, no bruit, non- distended, tenderness - diffuse Genitourinary: other - Pelvic exam done with female nurse as pattern changer and repairer. External exam show edema to labia. There hepatic lesion to the left side of the vaginal area. Internal exam showed no discharge. Musculoskeletal: back normal, normal range of motion, gait/station normal Psychiatric: anxious Medical Decision Making Diagnostic Impression: Primary Impression: Intractable abdominal pain Additional Impressions: Fluid overload Qualified Codes: E87.79 - Other fluid overload Cocaine abuse Anxiety Adnexal mass Cholecystitis, acute Cirrhosis Qualified Codes: K74.60 - Unspecified cirrhosis of liver; R18.8 - Other ascites Hyperkalemia Hypertension Qualified Codes: I10 - Essential (primary) hypertension Recurrent vulvovaginal herpes simplex ER Course This patient presents with abdominal pain. CT scan showed possible acute cholecystitis. This may be secondary to ascites and cirrhosis. She does have a cystic mass of her right adnexa. This has been getting bigger in size from previous CT scan. No evidence of an acute abdomen. She still positive for cocaine. Initially she claims she has not used 4 weeks. Patient is hyperkalemic without EKG changes. Kayexalate and Lasix given. Patient missed dialysis today. Will admit for monitoring and dialysis. I contacted Dr. Barnett/Fabian for admission. EKG Diagnostic Results Troponin ordered: Yes Rate: normal Rhythm: NSR ST Segments: no acute changes Rhythm Strip Diag. Results EP Interpretation: yes Rate: 74 Rhythm: NSR, no PVC's, no ectopy Chest X-Ray Diagnostic Results Chest X-Ray Diagnostic Results : Chest X-Ray Ordered: Yes # of Views/Limited/Complete: 1 View Indication: Shortness of Breath EP Interpretation: Yes Interpretation: no consolidation, no effusion, no pneumothorax, other - CM with vasc congestion Impression: Other - CHF Electronically Signed by: Jonathon Peña MD CT/MRI/US Diagnostic Results CT/MRI/US Diagnostic Results : Imaging Test Ordered: CT abdomen and pelvis Impression Read by radiologist. Possible acute cholecystitis with mildly distended gallbladder, pericystic fluid, gallstone. Multiloculated right adnexal mass measuring 6.6 x 4.7 x 4.9 cm. Cirrhosis, small ascites, upper abdominal varices. Last Vital Signs Date Time Temp Pulse Resp B/P (MAP) Pulse Ox O2 Delivery O2 Flow Rate FiO2 06/25/20 00:10 100.0 88 18 182/100 (127) 98 Room Air Status: improved Disposition: ADMITTED INPATIENT Condition: Serious Jonathon Peña MD Jun 25, 2020 00:24
[2020-06-25] MEDS ORDERED: HYDROmorphone 1mg/ml Carpuject IVP ONE (00:30)
--- NOTE | 2020-06-25 00:57 | NUR ---
ED Nurse Note: Pt to CT
[2020-06-25 01:08] LABS: HEMOGLOBIN 10.5 G/DL (12.0-16.0); MEAN CORPUSCULAR VOLUME 96 FL (80-99); PLATELET COUNT 140 K/UL (150-450); RED BLOOD COUNT 3.55 M/UL (4.20-5.40); RED CELL DISTRIBUTION WIDTH 16.4 % (11.6-14.8); WHITE BLOOD COUNT 2.9 K/UL (4.8-10.8)
--- NOTE | 2020-06-25 01:11 | NUR ---
ED Nurse Note: Pt back fropm CT
[2020-06-25 01:25] LABS: ALBUMIN 3.3 G/DL (3.4-5.0); ALBUMIN/GLOBULIN RATIO 0.5 (1.0-2.7); BILIRUBIN,TOTAL 0.5 MG/DL (0.2-1.0); CALCIUM 7.6 MG/DL (8.5-10.1); CREATININE 9.7 MG/DL (0.55-1.30); POTASSIUM 5.8 MMOL/L (3.5-5.1)
[2020-06-25] MEDS ORDERED: Sodium Polystyrene Sulfonate 15gm Powder ORAL ONE (01:30)
[2020-06-25] MEDS ORDERED: LORazepam Inj 2mg/ml 1ml IV ONE (01:30)
--- NOTE | 2020-06-25 01:31 | Diagnostic Imaging Report ---
EXAM: XR Chest, 1 View CLINICAL HISTORY: SOB TECHNIQUE: Frontal view of the chest. COMPARISON: 05/28/2020 FINDINGS: Lungs: Linear interstitial prominence could represent patient baseline, interstitial pulmonary edema, or atypical infection. Pleural space: Unremarkable. No pneumothorax. Heart: Unremarkable. No cardiomegaly. Mediastinum: Unremarkable. Bones/joints: No acute abnormality Tubes, lines and devices: Unchanged left IJ approach tunneled dual lumen central venous catheter with tip probably in the SVC, although the course could potentially represent misplacement into the azygos vein. Other findings: Unchanged cardiomegaly. IMPRESSION: 1. Unchanged left IJ approach tunneled dual lumen central venous catheter with tip probably in the SVC, although the course could potentially represent misplacement into the azygos vein. 2. Recommend lateral chest radiograph to assist in identifying the location and course of the tunneled central venous catheter. 3. Unchanged cardiomegaly. 4. Linear interstitial prominence could represent patient baseline, interstitial pulmonary edema, or atypical infection.
[2020-06-25 01:36] LABS: APPEARANCE,URINE SLIGHTLY CLOUDY; BILIRUBIN, URINE NEGATIVE (NEGATIVE); COLOR,URINE PALE YELLOW; GLUCOSE, URINE (UA) NEGATIVE (NEGATIVE); KETONES,URINE NEGATIVE (NEGATIVE); LEUKOCYTE ESTERASE ,URINE NEGATIVE (NEGATIVE); NITRITE,URINE NEGATIVE (NEGATIVE); PH,URINE 9 (4.5-8.0); PROTEIN,URINE 4+ (NEGATIVE); UROBILINOGEN,URINE NORMAL MG/DL (0.0-1.0)
--- NOTE | 2020-06-25 01:40 | Diagnostic Imaging Report ---
EXAM: CT Abdomen and Pelvis Without Intravenous Contrast CLINICAL HISTORY: ABD PAIN TECHNIQUE: Axial computed tomography images of the abdomen and pelvis without intravenous contrast. CTDI is 7.10 mGy and DLP is 358.30 mGy-cm. One or more of the following dose reduction techniques were used: automated exposure control, adjustment of the mA and/or kV according to patient size, use of iterative reconstruction technique. Coronal and sagittal reformatted images were created and reviewed. COMPARISON: 04/24/2020 FINDINGS: Limitations: Study limited due to lack of IV contrast. Lung bases: Mosaic lung attenuation could represent small airways disease. Pleural space: Small right low-attenuation layering pleural effusion with passive atelectasis. ABDOMEN: Liver: Cirrhosis. Gallbladder and bile ducts: Possible acute cholecystitis with mildly distended gallbladder, pericholecystic fluid, gallstones, mild wall thickening. Correlate with presentation. No ductal dilation. Pancreas: Unremarkable. No ductal dilation. Spleen: Similar splenomegaly 14.9 cm AP dimension. Adrenals: Unremarkable. No mass. Kidneys and ureters: Multiple bilateral renal probably benign hypodensities measure up to 1.7 cm on the right. Partly calcified left inferior renal pole structure, potentially a peripherally calcified cyst. No hydronephrosis. Stomach and bowel: Colonic diverticulosis without acute diverticulitis. No obstruction. PELVIS: Appendix: No findings to suggest acute appendicitis. Bladder: Urinary bladder wall thickening. No stones. Reproductive: Indeterminate potentially multiloculated right adnexal intervally increased in size, now 6.6 x 4.7 right 4.9 cm cystic structure. ABDOMEN and PELVIS: Intraperitoneal space: Small nonloculated low-attenuation ascites. No free air. Bones/joints: No acute fracture. No dislocation. Soft tissues: Anasarca. Vasculature: Numerous upper abdominal varices. Potentially recanalized umbilical vein. No abdominal aortic aneurysm. Lymph nodes: Unremarkable. No enlarged lymph nodes. IMPRESSION: 1. Study limited due to lack of IV contrast. 2. Possible acute cholecystitis with mildly distended gallbladder, pericholecystic fluid, gallstones, mild wall thickening. Correlate with presentation. 3. Urinary bladder wall thickening could be incidental, due to high outlet pressures, or could represent cystitis. 4. Mosaic lung attenuation could represent small airways disease. 5. Small right low-attenuation layering pleural effusion with passive atelectasis. 6. Recommend pelvic MRI to further characterize right adnexal cystic structure; neoplasm not excluded. 7. Probably benign renal findings above, and follow-up in 6 months to document stability of calcified left inferior renal pole structure. 8. Cirrhosis, splenomegaly, small, ascites, upper abdominal varices, recanalized umbilical vein. 9. Colonic diverticulosis without acute diverticulitis.
[2020-06-25] MEDS ORDERED: Piperacillin/Tazobactam 3.375 GM in NS 110 ML IVPB ONE (02:00)
[2020-06-25] MEDS ORDERED: Morphine Sulfate 4mg/ml Inj (IV USE ONLY) IVP PRN (02:30)
--- NOTE | 2020-06-25 03:45 | NUR ---
TRANSFER TO FLOOR: Patient transferred to as ordered, per Dr deras. Report given to MARTIN Henderson. Belongings and medications given to . Family and or S/O informed of transfer.
--- NOTE | 2020-06-25 04:00 | NUR ---
NURSE NOTES: Received patient from [facility] via [facility]. Patient is alert, awake and oriented x 3. Oriented to room and telemetry unit. Belongings list checked and verified.Place ekg monitor and shows sinus rhythm with no chest pain reported at this time. On room air, sating 94%. Patient is on renal diet, instructed and amenable. IV site is on right EJ, g-18. HD access is on left perma catheter, and HD schedule is every , and friday. Safety measures are in place, bed in lowest and locked position, side rails up x 2, call light button and bedside table within reach, instructed to call for any assistance needed. Will call MD for admission orders.
[2020-06-25] MEDS ORDERED: HYDROmorphone 1mg/ml Carpuject IVP PRN (06:45)
--- NOTE | 2020-06-25 07:30 | NUR ---
NURSE NOTES: Received pt from RN , pt is awake and very anxious and have abd and back pain, Dr Peralta visited pt and is aware about that and labs and V/S, MD will F/U. pt is in RA, no SOB or acute respiratory distress noted. pt has intact iv access RIJ 18G SL. pt is eating breakfast by observation. all needs attended, bed is locked and is in the lowest position, call light within easy reach. will continue to monitor.
--- NOTE | 2020-06-25 07:35 | NUR ---
NURSE HAND-OFF REPORT: Important Events on Shift: Patient has been resting well the whole shift Patient Status: Patient is awake on bed in stable condition. Plan of care endorsed. Diet: Renal diet Pending Orders: none Pending Results/Labs:none Pending MD notification:none Latest Vital Signs: Temperature 98.7 , Pulse 78 , B/P 145 /78 , Respiratory Rate 16 , O2 SAT 98 , Room Air, O2 Flow Rate . Vital Sign Comment: elevated EKG Rhythm: Sinus Rhythm Rhythm change?: N MD Notified?: - MD Response: Latest Espinoza Fall Score: 85 Fall Risk: High Risk Safety Measures: Call light Within Reach, Bed Alarm Zone 1, Side Rails Side Rails x2, Bed position Low and Locked. Fall Precautions: Yellow Socks Yellow Gown Door Sign Patient Fall Education Report given to MARTIN Boss.
[2020-06-25] MEDS: Docusate 100mg cap ORAL SCH ×2 (08:58→17:11)
[2020-06-25] MEDS: BuPROPion SR 150mg tab ORAL SCH (08:59)
[2020-06-25] MEDS: LORazepam 1mg tab ORAL SCH (08:59)
[2020-06-25] MEDS: TraZODone 50mg tab ORAL SCH ×2 (08:59→17:11)
[2020-06-25] MEDS ORDERED: Dolutegravir Sodium 50mg tab ORAL SCH (09:00)
--- NOTE | 2020-06-25 09:00 | NUR ---
NURSE NOTES: pt is aware about Tivicar, she will ask SB to bring it to hospital.
[2020-06-25] MEDS: HydrALAZINE 25mg tab ORAL SCH ×3 (09:03→22:20)
[2020-06-25] MEDS: Heparin 5000 units/ml inj SUBQ SCH ×2 (09:30→22:21)
--- NOTE | 2020-06-25 10:00 | NUR ---
NURSE NOTES: Dr Pryor visited pt and is aware about plt 140 and other labs and V/S, and RN asked for parameter for hep, MD ordered hold hep if plt<60, noted and carried out. will continue to monitor.
[2020-06-25] MEDS: Piperacillin/Tazobactam 2.25 GM in D5W 55 ML IV SCH ×3 (10:01→22:20)
--- NOTE | 2020-06-25 10:15 | History and Physical Report ---
DATE OF ADMISSION: 06/25/2020 CHIEF COMPLAINT: Cholecystitis. HISTORY OF PRESENT ILLNESS: The patient is a 69-year-old female, well known to me. She has a history of hypertensive heart disease, conduction system disease, HIV, end-stage renal disease, chronic pain who presented with complaints of intermittent abdominal pain. On evaluation in the emergency room, the patient had a low-grade temperature. CT scan of the abdomen was concerning for acute cholecystitis. The patient is now admitted for further evaluation and care. PAST MEDICAL HISTORY: As above. PAST SURGICAL HISTORY: None. CURRENT MEDICATIONS: Reconciled and reviewed. ALLERGIES: Include aspirin, contrast dye, iodine, NSAIDs. FAMILY HISTORY: Noncontributory. SOCIAL HISTORY: The patient has a history of substance abuse and opiate dependence. PHYSICAL EXAMINATION: VITAL SIGNS: Temperature was 100, pulse 88, respirations 18, and blood pressure 182/100. GENERAL: The patient is well-developed, no apparent distress. HEART: Regular rate and rhythm. LUNGS: Clear. ABDOMEN: Soft. Diffusely tender. There is no rebound or guarding. EXTREMITIES: No clubbing, cyanosis, or edema. LABORATORY AND DIAGNOSTIC DATA: White count was 3, hemoglobin 10, platelet count of 140. Sodium 137, potassium 5.8. UA is clear. ASSESSMENT: This is a 69-year-old female admitted with complaints of abdominal pain secondary to possible acute cholecystitis. PROBLEM LISTS: 1. Acute cholecystitis. 2. End-stage renal disease. 3. Hypertension. 4. History of HIV. PLAN: 1. IV antibiotics, NPO. Surgical consultation. 2. IV pain medications as needed. 3. Renal and Cardiology follow up for clearance as well as resumption of dialysis. Michael Peralta M.D. DR: Yasmeen JOB#: [id number] CC:
--- NOTE | 2020-06-25 10:15 | NUR ---
NURSE NOTES: pt signed consent form for HD.
[2020-06-25] MEDS: HYDROmorphone 1mg/ml Carpuject IVP PRN ×2 (13:55→20:54)
--- NOTE | 2020-06-25 14:03 | NUR ---
NURSE NOTES: HD started 1100 and finished now with 2lit out put. BP 150/84 HR 112. Will continue to monitor.
[2020-06-25] MEDS ORDERED: Heparin 5000 units/ml inj SUBQ SCH (14:30)
--- NOTE | 2020-06-25 17:00 | Consultation ---
DATE OF CONSULTATION: 06/25/2020 REFERRING PHYSICIAN: Michael Peralta M.D. REASON FOR CONSULTATION: Cholecystitis. HISTORY OF PRESENTING ILLNESS: This is a 69-year-old lady with history of hypertension, HIV, renal failure on dialysis, who comes in with abdominal pain along with fevers. She had a CT abdomen which was consistent with acute cholecystitis and an Infectious Diseases consultation has been obtained for antibiotics. PAST MEDICAL HISTORY: 1. History of hypertension. 2. HIV. 3. Conduction system disease. 4. Renal failure on dialysis. SOCIAL HISTORY: She has a history of substance abuse and opiate dependence. No history of smoking and alcohol use. FAMILY HISTORY: Noncontributory. REVIEW OF SYSTEMS: RESPIRATORY: She had fever and chills. No cough. No shortness of breath or chest pain. CARDIAC: No chest pain. No palpitation. No dizziness. No syncope. GI: No nausea. No vomiting. She has abdominal pain. No diarrhea. MEDICATIONS: She is on clonidine, Zosyn, Atarax, Dilaudid, subcutaneous heparin, Wellbutrin, trazodone, Protonix, Ativan, levothyroxine, Lexapro, Tivicay, docusate, amlodipine, hydralazine. ALLERGIES: 1. Aspirin. 2. Contrast dye. 3. Iodine. 4. NSAID. PHYSICAL EXAMINATION: VITAL SIGNS: Temperature of 98, T-max of 100, pulse of 80, respiratory rate 21, blood pressure 183/97, O2 saturation of 95%. HEENT: Pupils equally reactive to light and accommodation. Mouth appears clean without thrush. NECK: Supple. No adenopathy. No JVD. CARDIOVASCULAR: Regular rate and rhythm. No murmurs. LUNGS: Clear to auscultation bilaterally. No crackles. No wheezes. ABDOMEN: Soft. There is right upper quadrant tenderness. No organomegaly. EXTREMITIES: No cyanosis, no clubbing, no edema. Left subclavian catheter noted. LABS: White count 2.9, hemoglobin 10.5, hematocrit 34, MCV 96, platelet count of 140, with neutrophils of 70%. Sodium 137, potassium 5.8, chloride 100, bicarb 28, BUN 51, creatinine 9.7, glucose 89, calcium 7.6. Total bilirubin 0.5. AST 40, ALT 12, alkaline phosphatase 87. Troponin 0.006. Total protein 9.9, albumin 3.3, lipase of 196. UA showing 0 to 2 white cells. COVID-19 negative. Chest x-ray is showing unchanged cardiomegaly. Linear interstitial prominence could represent interstitial pulmonary edema. CT abdomen and pelvis showing possible acute cholecystitis with mildly distended gallbladder, pericholecystic free fluid, gallstones, mild wall thickening, could represent cystitis. Small airways disease noted, atelectasis noted, cirrhosis, splenomegaly, small ascites, upper abdominal varices, colonic diverticulosis without diverticulitis noted. ASSESSMENT: This is a 69-year-old lady with history of hypertension, HIV, renal failure on dialysis, who comes in with abdominal pain along with fevers and is found to have. 1. Acute cholecystitis. She is scheduled for surgery today. 2. Hypertension. 3. HIV. PLAN: 1. Continue Zosyn. 2. Continue antiretrovirals. 3. Plan as per Surgery. I would like to thank Dr. Peralta for this consultation. Elvis Garibay M.D. DR: MONICA JOB#: [id number] CC: Michael Peralta M.D.
--- NOTE | 2020-06-25 17:21 | NUR ---
NURSE NOTES: pt is complaining anxiety, Dr Peralta is aware and ordered Ativan 1mg po q8hr prn, noted and carried out. will continue to monitor.
[2020-06-25] MEDS: LORazepam 1mg tab ORAL PRN (17:49)
--- NOTE | 2020-06-25 18:40 | NUR ---
NURSE NOTES: pt had episode tachycardia with HR 120 and backed to SR HR 80, Dr Peralta is aware and ordered ECG if tachycardia again, noted and carried out. will continue to monitor.
--- NOTE | 2020-06-25 19:02 | Consultation ---
History of Present Illness General Date patient seen: Jun 25, 2020 Reason for Hospitalization: Abdominal Pain Present Illness HPI This is a very pleasant six 9-year-old female well-known to me from prior care with history of end-stage renal disease on dialysis noncompliant at times who presented with abdominal pain right upper quadrant nausea vomiting. Pain 10 out of 10 sharp pain and was admitted for the care management. CT performed identifying potential acute cholecystitis. Surgical to evaluate cyst with care. Patient seen, patient by, chart reviewed. Allergies: Coded Allergies: ASPIRIN (Unverified Allergy, Unknown, 01/16/20) IODINE (Verified Allergy, Unknown, 01/07/20) Uncoded Allergies: CONTRAST DYE (Allergy, Unknown, 01/07/20) NSAID (Allergy, Unknown, 04/24/20) COVID-19 Screening Contact w/high risk pt: No Recent Travel to affected area: No Experienced COVID-19 symptoms?: Yes Coronavirus symptoms experienc: Cough Medication History Scheduled Amlodipine Besylate* (Amlodipine Besylate*), 10 MG ORAL DAILY, (Reported) Bupropion Hcl (Wellbutrin Sr), 100 MG ORAL BID, (Reported) Docusate Sodium (Stool Softener), 100 MG ORAL BID, (Reported) Dolutegravir Sodium (Tivicay), 50 MG ORAL DAILY, (Reported) Escitalopram Oxalate* (Lexapro*), 10 MG ORAL DAILY, (Reported) Hydralazine Hcl* (Hydralazine Hcl*), 75 MG ORAL EVERY 8 HOURS, (Reported) Levothyroxine Sodium* (Synthroid*), 75 MCG ORAL DAILY, (Reported) Lorazepam* (Ativan*), 1 MG ORAL DAILY, (Reported) Pantoprazole* (Pantoprazole*), 40 MG ORAL BID, (Reported) Trazodone Hcl* (Desyrel*), 50 MG ORAL BID, (Reported) Scheduled PRN Hydrocodone Bit/Acetaminophen 10-325* ([place] 10-325*), 1 TAB ORAL DAILY PRN for For Pain, (Reported) Hydroxyzine Hcl (Hydroxyzine Hcl), 25 MG PO THREE TIMES A DAY PRN for Itching, (Reported) Patient History History Provided By: Patient, Medical Record, PMD Healthcare decision maker Resuscitation status Advanced Directive on File Past Medical/Surgical History Past Medical/Surgical History: (1) Sick sinus syndrome (2) Weakness (3) Epileptic seizure, generalized (4) Open wound of chest wall (5) Hypertensive urgency (6) Pruritus (7) HIV disease (8) Substance abuse (9) ESRD (end stage renal disease) on dialysis (10) HCV antibody positive (11) Cocaine abuse (12) Anxiety (13) Cirrhosis (14) Adnexal mass (15) Recurrent vulvovaginal herpes simplex (16) Hyperkalemia (17) Hypertension (18) Intractable abdominal pain (19) Fluid overload (20) Cholecystitis, acute (21) CHF (congestive heart failure), NYHA class II Review of Systems Review of Symptoms General ROS: no weight loss or fever Psychological ROS: no depression or mood changes, no memory loss Ophthalmic ROS: no visual changes or eye irritation ENT ROS: no nasal congestion, hearing loss, dizziness Allergy and Immunology ROS: no allergic symptoms or urticaria Hematological and Lymphatic ROS: no swollen glands, unusual bleeding or bruising Endocrine ROS: no polyuria, polydipsia, weight changes, temperature intolerance Respiratory ROS: no cough, shortness of breath, or wheezing Cardiovascular ROS: no chest pain or dyspnea on exertion Gastrointestinal ROS: ++ abdominal pain, bright red blood in stool. Musculoskeletal ROS: no myalgias or arthralgias Neurological ROS: no TIA or stroke symptoms Dermatological ROS: no new or changing skin lesions, rashes or pruritis Physical Exam Physical Exam General appearance: alert, cooperative, no distress, appears stated age Head: Normocephalic, without obvious abnormality, atraumatic Eyes: conjunctivae/corneas clear. PERRL, EOM's intact. Fundi benign Throat: Lips, mucosa, and tongue normal. Teeth and gums normal Neck: supple, symmetrical, trachea midline, no adenopathy, thyroid: not enlarged, symmetric, no tenderness/mass/nodules, no carotid bruit and no JVD Lungs: clear to auscultation bilaterally Heart: regular rate and rhythm, S1, S2 normal, no murmur, click, rub or gallop Abdomen: soft, non-tender. Bowel sounds normal. No masses, no organomegaly Extremities: extremities normal, atraumatic, no cyanosis or edema Pulses: 2+ and symmetric Skin: Skin color, texture, turgor normal. No rashes or lesions Neurologic: Grossly normal Last 24 Hour Vital Signs Date Time Temp Pulse Resp B/P (MAP) Pulse Ox O2 Delivery O2 Flow Rate FiO2 06/25/20 18:19 98 20 140/88 94 06/25/20 17:49 92 20 142/78 94 06/25/20 16:00 97.9 92 20 142/78 (99) 94 06/25/20 15:55 92 06/25/20 14:10 150/84 06/25/20 12:00 98.0 75 20 146/82 (103) 95 06/25/20 11:36 78 06/25/20 10:26 183/97 06/25/20 09:29 80 21 188/106 95 06/25/20 09:03 206/112 06/25/20 09:00 Room Air 06/25/20 08:59 84 22 206/112 95 06/25/20 08:59 84 206/112 06/25/20 08:00 98.0 84 22 206/112 (143) 95 06/25/20 07:39 81 06/25/20 04:50 97.9 88 21 170/98 (122) 94 06/25/20 04:14 Room Air 06/25/20 04:00 78 06/25/20 03:45 98.7 82 16 145/78 98 Room Air 06/25/20 03:31 99.1 86 18 160/82 98 Room Air 06/25/20 02:18 88 18 182/100 98 06/25/20 02:08 182/100 06/25/20 01:26 100.0 06/25/20 00:45 99.3 88 18 182/100 98 Room Air 06/25/20 00:45 88 18 Room Air 06/25/20 00:10 100.0 88 18 182/100 (127) 98 Room Air Intake and Output 06/24/20 06/25/20 19:00 07:00 # Bowel Movements 1 Laboratory Tests Test 06/25/20 01:00 06/25/20 01:20 White Blood Count 2.9 K/UL (4.8-10.8) L Red Blood Count 3.55 M/UL (4.20-5.40) L Hemoglobin 10.5 G/DL (12.0-16.0) L Hematocrit 34.0 % (37.0-47.0) L Mean Corpuscular Volume 96 FL (80-99) Mean Corpuscular Hemoglobin 29.4 PG (27.0-31.0) Mean Corpuscular Hemoglobin Concent 30.8 G/DL (32.0-36.0) L Red Cell Distribution Width 16.4 % (11.6-14.8) H Platelet Count 140 K/UL (150-450) L Mean Platelet Volume 6.2 FL (6.5-10.1) L Neutrophils (%) (Auto) % (45.0-75.0) Lymphocytes (%) (Auto) % (20.0-45.0) Monocytes (%) (Auto) % (1.0-10.0) Eosinophils (%) (Auto) % (0.0-3.0) Basophils (%) (Auto) % (0.0-2.0) Differential Total Cells Counted 100 Neutrophils % (Manual) 70 % (45-75) Lymphocytes % (Manual) 16 % (20-45) L Monocytes % (Manual) 10 % (1-10) Eosinophils % (Manual) 2 % (0-3) Basophils % (Manual) 1 % (0-2) Band Neutrophils 1 % (0-8) Platelet Estimate Decreased L Platelet Morphology Normal Hypochromasia 1+ Anisocytosis 1+ Sodium Level 137 MMOL/L (136-145) Potassium Level 5.8 MMOL/L (3.5-5.1) H Chloride Level 100 MMOL/L (98-107) Carbon Dioxide Level 28 MMOL/L (21-32) Anion Gap 9 mmol/L (5-15) Blood Urea Nitrogen 51 mg/dL (7-18) H Creatinine 9.7 MG/DL (0.55-1.30) H Estimat Glomerular Filtration Rate 4.8 mL/min (>60) Glucose Level 89 MG/DL (74-106) Calcium Level 7.6 MG/DL (8.5-10.1) L Total Bilirubin 0.5 MG/DL (0.2-1.0) Aspartate Amino Transf (AST/SGOT) 40 U/L (15-37) H Alanine Aminotransferase (ALT/SGPT) 12 U/L (12-78) Alkaline Phosphatase 87 U/L (46-116) Troponin I 0.006 ng/mL (0.000-0.056) Total Protein 9.9 G/DL (6.4-8.2) H Albumin 3.3 G/DL (3.4-5.0) L Globulin 6.6 g/dL Albumin/Globulin Ratio 0.5 (1.0-2.7) L Lipase 196 U/L (73-393) Urine Color Pale yellow Urine Appearance Slightly cloudy Urine pH 9 (4.5-8.0) Urine Specific [place] 1.015 (1.005-1.035) Urine Protein 4+ (NEGATIVE) H Urine Glucose (UA) Negative (NEGATIVE) Urine Ketones Negative (NEGATIVE) Urine Blood 3+ (NEGATIVE) H Urine Nitrite Negative (NEGATIVE) Urine Bilirubin Negative (NEGATIVE) Urine Urobilinogen Normal MG/DL (0.0-1.0) Urine Leukocyte Esterase Negative (NEGATIVE) Urine RBC 2-4 /HPF (0 - 2) H Urine WBC 0-2 /HPF (0 - 2) Urine Squamous Epithelial Cells Occasional /LPF Urine Bacteria Occasional /HPF (NONE) Urine Opiates Screen Positive (NEGATIVE) H Urine Barbiturates Screen Negative (NEGATIVE) Phencyclidine (PCP) Screen Negative (NEGATIVE) Urine Amphetamines Screen Negative (NEGATIVE) Urine Benzodiazepines Screen Negative (NEGATIVE) Urine Cocaine Screen Positive (NEGATIVE) H Urine Marijuana (THC) Screen Negative (NEGATIVE) Microbiology Date/Time Source Procedure Growth Status 06/25/20 05:30 Rectum Received 06/25/20 01:20 Vaginal Wet Prep - Final Complete 06/25/20 01:00 Nasopharynx SARS-CoV-2 RdRp Gene Assay - Final Complete Height (Feet): 5 Height (Inches): 4.00 Weight (Pounds): 165 Medications Current Medications Medications (Trade) Dose Ordered Sig/Rochelle Route PRN Reason Start Time Stop Time Status Last Admin Dose Admin Amlodipine Besylate (Norvasc) 10 mg DAILY ORAL 06/25/20 09:00 07/25/20 08:59 06/25/20 08:59 Bupropion HCl (Wellbutrin SR) 150 mg DAILY ORAL 06/25/20 09:00 07/25/20 08:59 06/25/20 08:59 Clonidine HCl (Catapres Tab) 0.1 mg Q4H PRN ORAL bp over 165 syst 06/25/20 10:15 09/23/20 10:14 06/25/20 10:26 Docusate Sodium (Colace) 100 mg BID ORAL 06/25/20 09:00 07/25/20 08:59 06/25/20 17:11 Dolutegravir Sodium (Tivicay) 50 mg DAILY ORAL 06/25/20 09:00 09/23/20 08:59 UNV Escitalopram Oxalate (Lexapro) 10 mg DAILY ORAL 06/25/20 09:00 07/25/20 08:59 06/25/20 08:59 Heparin Sodium (Porcine) (Heparin 5000 units/ml) 5,000 units Q8HR SUBQ 06/25/20 09:30 08/09/20 09:29 Hydralazine HCl (Apresoline) 75 mg EVERY 8 HOURS ORAL 06/25/20 08:30 09/23/20 08:29 06/25/20 14:10 Hydromorphone HCl (Dilaudid) 2 mg Q4H PRN IVP Severe Pain (Pain Scale 7-10) 06/25/20 09:45 07/02/20 06:44 06/25/20 13:55 Hydroxyzine HCl (Atarax) 25 mg THREE TIMES A DAY PRN ORAL Itching 06/25/20 10:00 07/25/20 09:59 Levothyroxine Sodium (Synthroid) 75 mcg DAILY ORAL 06/25/20 09:00 07/25/20 08:59 06/25/20 08:58 Lorazepam (Ativan) 1 mg DAILY ORAL 06/25/20 09:00 07/02/20 08:59 06/25/20 08:59 Lorazepam (Ativan) 1 mg Q8H PRN ORAL For Anxiety 06/25/20 17:30 07/02/20 17:29 06/25/20 17:49 Ondansetron HCl (Zofran) 4 mg Q6H PRN IVP Nausea & Vomiting 06/25/20 14:00 07/25/20 13:59 Pantoprazole (Protonix) 40 mg BID ORAL 06/25/20 09:00 07/25/20 08:59 06/25/20 17:11 Piperacillin Sod/ Tazobactam Sod 2.25 gm/Dextrose 55 ml @ 110 mls/hr Q8HR IV 06/25/20 10:00 06/30/20 09:59 06/25/20 14:10 Trazodone HCl (Desyrel) 50 mg BID ORAL 06/25/20 09:00 07/25/20 08:59 06/25/20 17:11 Assessment/Plan Problem List: (1) Cocaine abuse ICD Codes: F14.10 - Cocaine abuse, uncomplicated SNOMED: 17152671 (2) Anxiety ICD Codes: F41.9 - Anxiety disorder, unspecified SNOMED: 38302864 (3) Cirrhosis ICD Codes: K74.60 - Unspecified cirrhosis of liver SNOMED: 69418446 Qualifiers: Qualified Codes: K74.60 - Unspecified cirrhosis of liver; R18.8 - Other ascites (4) Adnexal mass ICD Codes: N94.89 - Other specified conditions associated with female genital organs and menstrual cycle SNOMED: 380054146 (5) Recurrent vulvovaginal herpes simplex ICD Codes: A60.04 - Herpesviral vulvovaginitis SNOMED: 323526278 (6) Hyperkalemia ICD Codes: E87.5 - Hyperkalemia SNOMED: 32100415 (7) Hypertension ICD Codes: I10 - Essential (primary) hypertension SNOMED: 78610858 Qualifiers: Qualified Codes: I10 - Essential (primary) hypertension (8) Intractable abdominal pain ICD Codes: R10.9 - Unspecified abdominal pain SNOMED: 49674443 (9) Sick sinus syndrome ICD Codes: I49.5 - Sick sinus syndrome SNOMED: 22421252 (10) Fluid overload ICD Codes: E87.70 - Fluid overload, unspecified SNOMED: 64562457 Qualifiers: Qualified Codes: E87.79 - Other fluid overload (11) Substance abuse ICD Codes: F19.10 - Other psychoactive substance abuse, uncomplicated SNOMED: 37996722 (12) Pruritus ICD Codes: L29.9 - Pruritus, unspecified SNOMED: 573113585, 295083227 (13) Cholecystitis, acute Assessment & Plan: 69-year-old female with extensive medical history end-stage renal disease on dialysis noncompliant at times history of catheter infections history of cirrhosis presenting with acute cholecystitis. CT reviewed. Patient states that since admission her pain is improved and she is feeling little bit better. Labs are improving. Currently no nausea vomiting fever chills. Tolerating diet. Given patient's comorbidities liver disease cirrhosis will plan for medical management as she is already showing improvement with antibiotics and resuscitation. I do long discussion with the patient regards to her care plan history comorbidities and the morbidity mortality associated potentially with surgical intervention. A cholecystomy can be considered but if able to manage with medical management would be in patient's best interest given her comorbidities. This will allow her time to resuscitate improved optimized and considerations of surgery in the future elective if potential. Continue IV antibiotics per infectious disease Case discussed Continue with diet as tolerated Ultrasound ordered We will follow serial exams and recs thank you ICD Codes: K81.0 - Acute cholecystitis SNOMED: 69457948 (14) Weakness ICD Codes: R53.1 - Weakness SNOMED: 00685088 (15) HIV disease ICD Codes: B20 - Human immunodeficiency virus [HIV] disease SNOMED: 61768099 (16) Epileptic seizure, generalized ICD Codes: G40.309 - Generalized idiopathic epilepsy and epileptic syndromes, not intractable, without status epilepticus SNOMED: 12198146 (17) Open wound of chest wall ICD Codes: S21.109A - Unspecified open wound of unspecified front wall of thorax without penetration into thoracic cavity, initial encounter SNOMED: 457829980 (18) CHF (congestive heart failure), NYHA class II ICD Codes: I50.9 - Heart failure, unspecified SNOMED: 137454614, 715914409 (19) HCV antibody positive ICD Codes: R76.8 - Other specified abnormal immunological findings in serum SNOMED: 290382511 (20) ESRD (end stage renal disease) on dialysis ICD Codes: N18.6 - End stage renal disease; Z99.2 - Dependence on renal dialysis SNOMED: 787490176 (21) Hypertensive urgency ICD Codes: I16.0 - Hypertensive urgency SNOMED: 167520555 Deon Crowe Jun 25, 2020 19:02
--- NOTE | 2020-06-25 19:16 | NUR ---
NURSE HAND-OFF REPORT: Important Events on Shift: Patient Status: Diet: Pending Orders: Pending Results/Labs: Pending MD notification: Latest Vital Signs: Temperature 97.9 , Pulse 98 , B/P 140 /88 , Respiratory Rate 20 , O2 SAT 94 , Room Air, O2 Flow Rate . Vital Sign Comment: EKG Rhythm: Sinus Rhythm Rhythm change?: N MD Notified?: - MD Response: Latest Espinoza Fall Score: 70 Fall Risk: High Risk Safety Measures: Call light Within Reach, Bed Alarm Zone 1, Side Rails Side Rails x3, Bed position Low and Locked. Fall Precautions: Yellow Socks Yellow Gown Door Sign Patient Fall Education Report given to . Pt is sleeping and stable, no stress noted, HR SR 80, Endorsed plan of care, Endorsed to keep pt NPO due to abd us and do ECG if tachycardia and tomorrow am.
--- NOTE | 2020-06-25 19:30 | NUR ---
NURSE NOTES: Report received from MARTIN Boss. Patient is asleep on bed, alert and oriented x 4. 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 On renal diet. Patient is on room air, sating 94% with no episode of SOB during day shift. IV site is on right EJ g-18 saline lock that is patent and intact. HD access is on left Perma catheter, double lumen. Safety measures are in place, bed in lowest and locked position, side rails up x 2, call light button and bedside table within reach, will instruct to call for any assistance needed.
--- NOTE | 2020-06-25 20:34 | Cardiology Report ---
APPROVED REPORT EKG Measurement Heart [id number] NM [id number] <Conclusion> Normal sinus rhythm Low voltage QRS Septal infarct, age undetermined Abnormal ECG
[2020-06-26] VITALS (7 sets, daily range): BP systolic 146–173; BP diastolic 61–92
[2020-06-26] MEDS: HYDROmorphone 1mg/ml Carpuject IVP PRN ×5 (01:02→22:11)
--- NOTE | 2020-06-26 03:59 | Consultation ---
DATE OF CONSULTATION: 06/25/2020 CARDIOLOGY CONSULTATION CONSULTING PHYSICIAN: Nam Barnett M.D. REQUESTING PHYSICIAN: Michael Peralta M.D. REASON FOR CONSULTATION: Cardiovascular management in the setting of acute cholecystitis. HISTORY OF PRESENT ILLNESS: This is a 69-year-old female with multiple medical problems including hypertensive heart disease, conduction system disease, paroxysmal atrial arrhythmias, and end-stage renal disease, on hemodialysis. She has had numerous hospitalizations over the past several months. She also has a history of recurring cocaine abuse. The patient was seen in the emergency room early this morning complaining of abdominal pain and was noted to have low-grade temperatures. A CT scan was concerning for acute cholecystitis. Surgical intervention is anticipated. Cardiovascular evaluation and perioperative risk assessment is requested. PAST MEDICAL HISTORY: 1. End-stage renal disease, on hemodialysis. 2. HIV/AIDS. 3. Hepatitis C positive. 4. Hypertensive heart disease. 5. Diastolic congestive heart failure. 6. Hypothyroidism. 7. Osteoporosis. 8. Degenerative valve disease. 9. Degenerative disc disease. 10. Conduction system disease of the heart. 11. Tachy-alysa syndrome. 12. Type 2 diabetes mellitus, on insulin. 13. Diabetic neuropathy. 14. Diabetic microangiopathy. 15. History of recurring PermCath infections. 16. History of cocaine abuse. ALLERGIES: Aspirin, iodine, contrast dye, and nonsteroidal anti-inflammatory drugs. MEDICATIONS: Reviewed and reconciled. FAMILY HISTORY: Noncontributory. SOCIAL HISTORY: Opioid dependence, substance abuse with cocaine as documented above, periodic smoking, no alcohol use. REVIEW OF SYSTEMS: She has had some low-grade fevers. No chills. There is no known history of COVID-19 exposure. She does not have any history of steroid use, abnormal blood clotting, or COPD. She had an echocardiogram here in the last month revealing normal ejection fraction, concentric hypertrophy, and a degenerative valve disease with a diastolic relaxation abnormality. There is no history of seizure or stroke. The patient has a history of tachy-alysa syndrome. She has been recommended for a permanent pacemaker in the past, but has refused. The patient has a PermCath in for hemodialysis 3 times a week. She frequently misses her sessions. The patient has had some episodes of gastritis and GI discomfort in the past. The patient's diabetes is managed with insulin. She has been on thyroid replacement. She has not been compliant with anti-lipid drugs. PHYSICAL EXAMINATION: VITAL SIGNS: Blood pressure up to 206/112 with heart rate 84 and respiratory rate 22, now 142/78, 92, 20, afebrile, room air oxygen sats 94% to 95%. HEENT: Temporal wasting. Arcus senilis. Oropharynx clear. No thrush. NECK: Supple. Jugular venous pressure elevated. Catheter site clean and dry in the left chest wall. LUNGS: Clear. CARDIAC: Regular, normal S1, S2 with a fourth heart sound and a 1/6 systolic murmur at the base. ABDOMEN: Soft, tender in the right upper quadrant. No guarding or rebound. EXTREMITIES: No clubbing, cyanosis, or edema. LABORATORY AND DIAGNOSTIC DATA: EKG sinus rhythm, low voltage. Septal infarction of indeterminate age. No acute abnormalities. White count 2.9, hemoglobin 10.5, platelets 140,000. BUN 51, creatinine 9.7. Troponin 0. Albumin 3.3. Sodium 137, potassium 5.8, bicarb 28, glucose 89. Liver function tests within normal limits. IMPRESSION: 1. Possible acute cholecystitis. 2. Hypertensive urgency. 3. End-stage renal disease with dialysis noncompliance. 4. Hyperkalemia due to missed dialysis session. 5. Conduction system disease of the heart with tachy-alysa syndrome and refusal of pacemaker in the past. 6. Acute on chronic diastolic congestive heart failure. PLAN: 1. NPO. 2. IV antimicrobials. 3. IV antihypertensives. 4. Hemodialysis with ultrafiltration. 5. Kayexalate for potassium correction urgently. 6. DVT prophylaxis. 7. Stress ulcer prophylaxis. 8. Medication regimen reviewed with staff and primary care physician. 9. We will follow. Nam Barnett M.D. DR: LINDA JOB#: [id number] CC:
[2020-06-26] MEDS: HydrALAZINE 25mg tab ORAL SCH ×3 (05:39→20:52)
[2020-06-26] MEDS: Piperacillin/Tazobactam 2.25 GM in D5W 55 ML IV SCH ×3 (05:40→22:11)
[2020-06-26] MEDS: Heparin 5000 units/ml inj SUBQ SCH ×3 (05:40→20:48)
[2020-06-26] MEDS: HydrOXYzine tab 25mg tab ORAL PRN (06:30)
[2020-06-26 06:35] LABS: BASOPHILS % (AUTO) 1.3 % (0.0-2.0); EOSINOPHILS % (AUTO) 2.8 % (0.0-3.0); HEMATOCRIT 30.9 % (37.0-47.0); HEMOGLOBIN 9.3 G/DL (12.0-16.0); LYMPHOCYTES % (AUTO) 13.3 % (20.0-45.0); MEAN CORPUSCULAR VOLUME 97 FL (80-99); MONOCYTES % (AUTO) 11.2 % (1.0-10.0); NEUTROPHILS % (AUTO) 71.5 % (45.0-75.0); PLATELET COUNT 119 K/UL (150-450); WHITE BLOOD COUNT 3.9 K/UL (4.8-10.8)
[2020-06-26 07:01] LABS: ALANINE AMINOTRANSFERASE < 6 U/L (12-78); ALBUMIN/GLOBULIN RATIO 0.5 (1.0-2.7); ALKALINE PHOSPHATASE 69 U/L (46-116); AMYLASE 87 U/L (25-115); ANION GAP 7 mmol/L (5-15); ASPARTATE AMINO TRANSFERASE 31 U/L (15-37); BILIRUBIN,TOTAL 0.5 MG/DL (0.2-1.0); BLOOD UREA NITROGEN 29 mg/dL (7-18); CALCIUM 6.5 MG/DL (8.5-10.1); CARBON DIOXIDE 32 MMOL/L (21-32); CHLORIDE 98 MMOL/L (98-107); CREATININE 7.1 MG/DL (0.55-1.30); POTASSIUM 4.3 MMOL/L (3.5-5.1); SODIUM 137 MMOL/L (136-145)
[2020-06-26] MEDS: BuPROPion SR 150mg tab ORAL SCH ×2 (08:48→09:00)
[2020-06-26] MEDS: TraZODone 50mg tab ORAL SCH ×3 (08:50→18:00)
[2020-06-26] MEDS: Docusate 100mg cap ORAL SCH ×2 (08:50→18:00)
[2020-06-26] MEDS: LORazepam 1mg tab ORAL SCH (08:50)
--- NOTE | 2020-06-26 10:36 | NUR ---
NURSE NOTES:Skin/Wound assessment Sacral and bilateral heels skin intact Optifoam applied.Patient alert and able to position self.
--- NOTE | 2020-06-26 10:38 | Nephrology Progress Note ---
Assessment/Plan Assessment (1) ESRD (end stage renal disease) on dialysis (2) HIV disease (3) HCV antibody positive (4) Hypertensive urgency (5) Substance abuse (6) Noncompliance (7) Anemia of chronic kidney disease Plan June 26: Patient was dialyzed and ultrafiltrate had yesterday. Today's labs reviewed. Will arrange for dialysis again tomorrow. Continue per PMD and consultants. Subjective ROS Limited/Unobtainable: No Constitutional: Reports: malaise Objective Objective Last 24 Hour Vital Signs Date Time Temp Pulse Resp B/P (MAP) Pulse Ox O2 Delivery O2 Flow Rate FiO2 06/26/20 09:20 65 18 156/79 96 06/26/20 08:50 65 20 149/62 97 06/26/20 08:50 65 149/62 06/26/20 06:32 167/92 (117) 06/26/20 06:32 167/90 06/26/20 05:39 158/90 06/26/20 04:00 72 06/26/20 04:00 99.6 79 20 158/90 (112) 94 06/26/20 01:02 173/87 06/26/20 00:00 82 06/26/20 00:00 99.8 87 19 173/87 (115) 100 06/25/20 22:20 158/84 06/25/20 21:23 99.8 06/25/20 21:00 Room Air 06/25/20 20:00 78 06/25/20 20:00 100.8 84 21 157/84 (108) 98 06/25/20 18:19 98 20 140/88 94 06/25/20 17:49 92 20 142/78 94 06/25/20 16:00 97.9 92 20 142/78 (99) 94 06/25/20 15:55 92 06/25/20 14:10 150/84 06/25/20 12:00 98.0 75 20 146/82 (103) 95 06/25/20 11:36 78 Intake and Output 06/25/20 06/26/20 19:00 07:00 Intake Total 110 ml 400 ml Output Total 2000 ml Balance -1890 ml 400 ml Intake Oral 400 ml IV Total 110 ml Output Hemodialysis UF 2000 ml # Bowel Movements 1 Current Medications Medications (Trade) Dose Ordered Sig/Rochelle Route PRN Reason Start Time Stop Time Status Last Admin Dose Admin Acetaminophen (Tylenol) 650 mg Q4H PRN ORAL Temp >100.5 06/25/20 20:45 07/25/20 20:44 06/25/20 20:53 Amlodipine Besylate (Norvasc) 10 mg DAILY ORAL 06/25/20 09:00 07/25/20 08:59 06/26/20 08:50 Bupropion HCl (Wellbutrin SR) 150 mg DAILY ORAL 06/25/20 09:00 07/25/20 08:59 06/25/20 08:59 Clonidine HCl (Catapres Tab) 0.1 mg Q4H PRN ORAL bp over 165 syst 06/25/20 10:15 09/23/20 10:14 06/26/20 06:32 Docusate Sodium (Colace) 100 mg BID ORAL 06/25/20 09:00 07/25/20 08:59 06/26/20 08:50 Dolutegravir Sodium (Tivicay) 50 mg DAILY ORAL 06/25/20 09:00 09/23/20 08:59 UNV Escitalopram Oxalate (Lexapro) 10 mg DAILY ORAL 06/25/20 09:00 07/25/20 08:59 06/26/20 09:08 Heparin Sodium (Porcine) (Heparin 5000 units/ml) 5,000 units Q8HR SUBQ 06/25/20 09:30 08/09/20 09:29 06/26/20 05:40 Hydralazine HCl (Apresoline) 75 mg EVERY 8 HOURS ORAL 06/25/20 08:30 09/23/20 08:29 06/26/20 05:39 Hydromorphone HCl (Dilaudid) 2 mg Q4H PRN IVP Severe Pain (Pain Scale 7-10) 06/25/20 09:45 07/02/20 06:44 06/26/20 05:42 Hydroxyzine HCl (Atarax) 25 mg THREE TIMES A DAY PRN ORAL Itching 06/25/20 10:00 07/25/20 09:59 06/26/20 06:30 Levothyroxine Sodium (Synthroid) 75 mcg DAILY ORAL 06/25/20 09:00 07/25/20 08:59 06/26/20 08:50 Lorazepam (Ativan) 1 mg DAILY ORAL 06/25/20 09:00 07/02/20 08:59 06/26/20 08:50 Lorazepam (Ativan) 1 mg Q8H PRN ORAL For Anxiety 06/25/20 17:30 07/02/20 17:29 06/25/20 17:49 Ondansetron HCl (Zofran) 4 mg Q6H PRN IVP Nausea & Vomiting 06/25/20 14:00 07/25/20 13:59 06/26/20 01:02 Pantoprazole (Protonix) 40 mg BID ORAL 06/25/20 09:00 07/25/20 08:59 06/26/20 08:49 Piperacillin Sod/ Tazobactam Sod 2.25 gm/Dextrose 55 ml @ 110 mls/hr Q8HR IV 06/25/20 10:00 06/30/20 09:59 06/26/20 05:40 Trazodone HCl (Desyrel) 50 mg BID ORAL 06/25/20 09:00 07/25/20 08:59 06/25/20 17:11 Laboratory Tests 06/26/20 05:40: White Blood Count 3.9L, Red Blood Count 3.20L, Hemoglobin 9.3L, Hematocrit 30.9L , Mean Corpuscular Volume 97, Mean Corpuscular Hemoglobin 29.2, Mean Corpuscular Hemoglobin Concent 30.2L, Red Cell Distribution Width 17.0H, Platelet Count 119L , Mean Platelet Volume 7.0, Neutrophils (%) (Auto) 71.5, Lymphocytes (%) (Auto) 13.3L, Monocytes (%) (Auto) 11.2H, Eosinophils (%) (Auto) 2.8, Basophils (%) (Auto) 1.3, Sodium Level 137, Potassium Level 4.3, Chloride Level 98, [place] xide Level 32, Anion Gap 7, Blood Urea Nitrogen 29H, Creatinine 7.1H, Estimat Glomerular Filtration Rate 7.0, Glucose Level 93, Calcium Level 6.5L, Total Bilirubin 0.5, Aspartate Amino Transf (AST/SGOT) 31, Alanine Aminotransferase (ALT/SGPT) < 6L, Alkaline Phosphatase 69, Total Protein 9.1H, Albumin 3.0L, Globulin 6.1, Albumin/Globulin Ratio 0.5L, Amylase Level 87, Lipase 114 Height (Feet): 5 Height (Inches): 4.00 Weight (Pounds): 165 General Appearance: no apparent distress, lethargic Cardiovascular: normal rate Respiratory/Chest: decreased breath sounds Abdomen: distended Jack Pryor MD Jun 26, 2020 10:38
--- NOTE | 2020-06-26 11:49 | Infectious Diseases Prog Note ---
Assessment/Plan Assessment/Plan antibiotics : zosyn A 1. cholecystitis 2. hypertension 3. HIV 4. renal failure on HD P 1. continue zosyn 2. will follow up cultures Subjective Constitutional: Denies: fever, chills Respiratory: Denies: shortness of breath, dry cough Gastrointestinal/Abdominal: Denies: nausea, vomiting, diarrhea Musculoskeletal: Reports: pain - abdominal Allergies: Coded Allergies: ASPIRIN (Unverified Allergy, Unknown, 01/16/20) IODINE (Verified Allergy, Unknown, 01/07/20) Uncoded Allergies: CONTRAST DYE (Allergy, Unknown, 01/07/20) NSAID (Allergy, Unknown, 04/24/20) Objective Last 24 Hour Vital Signs Date Time Temp Pulse Resp B/P (MAP) Pulse Ox O2 Delivery O2 Flow Rate FiO2 06/26/20 09:20 65 18 156/79 96 06/26/20 09:00 66 06/26/20 08:50 65 20 149/62 97 06/26/20 08:50 65 149/62 06/26/20 08:00 98.1 65 20 149/62 (91) 97 06/26/20 06:32 167/92 (117) 06/26/20 06:32 167/90 06/26/20 05:39 158/90 06/26/20 04:00 72 06/26/20 04:00 99.6 79 20 158/90 (112) 94 06/26/20 01:02 173/87 06/26/20 00:00 82 06/26/20 00:00 99.8 87 19 173/87 (115) 100 06/25/20 22:20 158/84 06/25/20 21:23 99.8 06/25/20 21:00 Room Air 06/25/20 20:00 78 06/25/20 20:00 100.8 84 21 157/84 (108) 98 06/25/20 18:19 98 20 140/88 94 06/25/20 17:49 92 20 142/78 94 06/25/20 16:00 97.9 92 20 142/78 (99) 94 06/25/20 15:55 92 06/25/20 14:10 150/84 06/25/20 12:00 98.0 75 20 146/82 (103) 95 Height (Feet): 5 Height (Inches): 4.00 Weight (Pounds): 165 Respiratory/Chest: lungs clear Cardiovascular: normal rate, regular rhythm, no gallop/murmur Abdomen: tender - RUQ Extremities: no edema, other - right subclavian catheter Microbiology Date/Time Source Procedure Growth Status 06/25/20 05:30 Rectum Received 06/25/20 02:20 Blood Blood Culture - Preliminary NO GROWTH AFTER 24 HOURS Resulted 06/25/20 02:05 Blood Blood Culture - Preliminary NO GROWTH AFTER 24 HOURS Resulted 06/25/20 01:20 Vaginal Wet Prep - Final Complete 06/25/20 01:00 Nasopharynx SARS-CoV-2 RdRp Gene Assay - Final Complete Laboratory Tests Test 06/26/20 05:40 White Blood Count 3.9 K/UL (4.8-10.8) L Red Blood Count 3.20 M/UL (4.20-5.40) L Hemoglobin 9.3 G/DL (12.0-16.0) L Hematocrit 30.9 % (37.0-47.0) L Mean Corpuscular Volume 97 FL (80-99) Mean Corpuscular Hemoglobin 29.2 PG (27.0-31.0) Mean Corpuscular Hemoglobin Concent 30.2 G/DL (32.0-36.0) L Red Cell Distribution Width 17.0 % (11.6-14.8) H Platelet Count 119 K/UL (150-450) L Mean Platelet Volume 7.0 FL (6.5-10.1) Neutrophils (%) (Auto) 71.5 % (45.0-75.0) Lymphocytes (%) (Auto) 13.3 % (20.0-45.0) L Monocytes (%) (Auto) 11.2 % (1.0-10.0) H Eosinophils (%) (Auto) 2.8 % (0.0-3.0) Basophils (%) (Auto) 1.3 % (0.0-2.0) Sodium Level 137 MMOL/L (136-145) Potassium Level 4.3 MMOL/L (3.5-5.1) Chloride Level 98 MMOL/L (98-107) Carbon Dioxide Level 32 MMOL/L (21-32) Anion Gap 7 mmol/L (5-15) Blood Urea Nitrogen 29 mg/dL (7-18) H Creatinine 7.1 MG/DL (0.55-1.30) H Estimat Glomerular Filtration Rate 7.0 mL/min (>60) Glucose Level 93 MG/DL (74-106) Calcium Level 6.5 MG/DL (8.5-10.1) L Total Bilirubin 0.5 MG/DL (0.2-1.0) Aspartate Amino Transf (AST/SGOT) 31 U/L (15-37) Alanine Aminotransferase (ALT/SGPT) < 6 U/L (12-78) L Alkaline Phosphatase 69 U/L (46-116) Total Protein 9.1 G/DL (6.4-8.2) H Albumin 3.0 G/DL (3.4-5.0) L Globulin 6.1 g/dL Albumin/Globulin Ratio 0.5 (1.0-2.7) L Amylase Level 87 U/L (25-115) Lipase 114 U/L (73-393) Current Medications Medications (Trade) Dose Ordered Sig/Rochelle Route PRN Reason Start Time Stop Time Status Last Admin Dose Admin Acetaminophen (Tylenol) 650 mg Q4H PRN ORAL Temp >100.5 06/25/20 20:45 07/25/20 20:44 06/25/20 20:53 Amlodipine Besylate (Norvasc) 10 mg DAILY ORAL 06/25/20 09:00 07/25/20 08:59 06/26/20 08:50 Bupropion HCl (Wellbutrin SR) 150 mg DAILY ORAL 06/25/20 09:00 07/25/20 08:59 06/25/20 08:59 Clonidine HCl (Catapres Tab) 0.1 mg Q4H PRN ORAL bp over 165 syst 06/25/20 10:15 09/23/20 10:14 06/26/20 06:32 Docusate Sodium (Colace) 100 mg BID ORAL 06/25/20 09:00 07/25/20 08:59 06/26/20 08:50 Dolutegravir Sodium (Tivicay) 50 mg DAILY ORAL 06/25/20 09:00 09/23/20 08:59 UNV Escitalopram Oxalate (Lexapro) 10 mg DAILY ORAL 06/25/20 09:00 07/25/20 08:59 06/26/20 09:08 Heparin Sodium (Porcine) (Heparin 5000 units/ml) 5,000 units Q8HR SUBQ 06/25/20 09:30 08/09/20 09:29 06/26/20 05:40 Hydralazine HCl (Apresoline) 75 mg EVERY 8 HOURS ORAL 06/25/20 08:30 09/23/20 08:29 06/26/20 05:39 Hydromorphone HCl (Dilaudid) 2 mg Q4H PRN IVP Severe Pain (Pain Scale 7-10) 06/25/20 09:45 07/02/20 06:44 06/26/20 05:42 Hydroxyzine HCl (Atarax) 25 mg THREE TIMES A DAY PRN ORAL Itching 06/25/20 10:00 07/25/20 09:59 06/26/20 06:30 Levothyroxine Sodium (Synthroid) 75 mcg DAILY ORAL 06/25/20 09:00 07/25/20 08:59 06/26/20 08:50 Lorazepam (Ativan) 1 mg DAILY ORAL 06/25/20 09:00 07/02/20 08:59 06/26/20 08:50 Lorazepam (Ativan) 1 mg Q8H PRN ORAL For Anxiety 06/25/20 17:30 07/02/20 17:29 06/25/20 17:49 Ondansetron HCl (Zofran) 4 mg Q6H PRN IVP Nausea & Vomiting 06/25/20 14:00 07/25/20 13:59 06/26/20 01:02 Pantoprazole (Protonix) 40 mg BID ORAL 06/25/20 09:00 07/25/20 08:59 06/26/20 08:49 Piperacillin Sod/ Tazobactam Sod 2.25 gm/Dextrose 55 ml @ 110 mls/hr Q8HR IV 06/25/20 10:00 06/30/20 09:59 06/26/20 05:40 Trazodone HCl (Desyrel) 50 mg BID ORAL 06/25/20 09:00 07/25/20 08:59 06/25/20 17:11 Elvis Garibay MD Jun 26, 2020 11:49
--- NOTE | 2020-06-26 12:56 | Consultation ---
Consult Note Consult Note [id number] Jack Pryor MD Jun 26, 2020 12:56
--- NOTE | 2020-06-26 13:40 | Surgery Progress Note ---
Surgery Progress Note Subjective Additional Comments pain improved no n/v tolerating diet Objective Last 24 Hour Vital Signs Date Time Temp Pulse Resp B/P (MAP) Pulse Ox O2 Delivery O2 Flow Rate FiO2 06/26/20 12:00 98.1 64 20 153/76 (101) 96 06/26/20 09:20 65 18 156/79 96 06/26/20 09:00 Room Air 06/26/20 09:00 66 06/26/20 08:50 65 20 149/62 97 06/26/20 08:50 65 149/62 06/26/20 08:00 98.1 65 20 149/62 (91) 97 06/26/20 06:32 167/92 (117) 06/26/20 06:32 167/90 06/26/20 05:39 158/90 06/26/20 04:00 72 06/26/20 04:00 99.6 79 20 158/90 (112) 94 06/26/20 01:02 173/87 06/26/20 00:00 82 06/26/20 00:00 99.8 87 19 173/87 (115) 100 06/25/20 22:20 158/84 06/25/20 21:23 99.8 06/25/20 21:00 Room Air 06/25/20 20:00 78 06/25/20 20:00 100.8 84 21 157/84 (108) 98 06/25/20 18:19 98 20 140/88 94 06/25/20 17:49 92 20 142/78 94 06/25/20 16:00 97.9 92 20 142/78 (99) 94 06/25/20 15:55 92 06/25/20 14:10 150/84 I&O Intake and Output 06/25/20 06/26/20 19:00 07:00 Intake Total 110 ml 400 ml Output Total 2000 ml Balance -1890 ml 400 ml Intake Oral 400 ml IV Total 110 ml Output Hemodialysis UF 2000 ml # Bowel Movements 1 Cardiovascular: RSR Respiratory: clear Abdomen: soft, non-tender, present bowel sounds, non-distended Extremities: no edema, no tenderness, no cyanosis Laboratory Tests Test 06/26/20 05:40 White Blood Count 3.9 K/UL (4.8-10.8) L Red Blood Count 3.20 M/UL (4.20-5.40) L Hemoglobin 9.3 G/DL (12.0-16.0) L Hematocrit 30.9 % (37.0-47.0) L Mean Corpuscular Volume 97 FL (80-99) Mean Corpuscular Hemoglobin 29.2 PG (27.0-31.0) Mean Corpuscular Hemoglobin Concent 30.2 G/DL (32.0-36.0) L Red Cell Distribution Width 17.0 % (11.6-14.8) H Platelet Count 119 K/UL (150-450) L Mean Platelet Volume 7.0 FL (6.5-10.1) Neutrophils (%) (Auto) 71.5 % (45.0-75.0) Lymphocytes (%) (Auto) 13.3 % (20.0-45.0) L Monocytes (%) (Auto) 11.2 % (1.0-10.0) H Eosinophils (%) (Auto) 2.8 % (0.0-3.0) Basophils (%) (Auto) 1.3 % (0.0-2.0) Sodium Level 137 MMOL/L (136-145) Potassium Level 4.3 MMOL/L (3.5-5.1) Chloride Level 98 MMOL/L (98-107) Carbon Dioxide Level 32 MMOL/L (21-32) Anion Gap 7 mmol/L (5-15) Blood Urea Nitrogen 29 mg/dL (7-18) H Creatinine 7.1 MG/DL (0.55-1.30) H Estimat Glomerular Filtration Rate 7.0 mL/min (>60) Glucose Level 93 MG/DL (74-106) Calcium Level 6.5 MG/DL (8.5-10.1) L Total Bilirubin 0.5 MG/DL (0.2-1.0) Aspartate Amino Transf (AST/SGOT) 31 U/L (15-37) Alanine Aminotransferase (ALT/SGPT) < 6 U/L (12-78) L Alkaline Phosphatase 69 U/L (46-116) Total Protein 9.1 G/DL (6.4-8.2) H Albumin 3.0 G/DL (3.4-5.0) L Globulin 6.1 g/dL Albumin/Globulin Ratio 0.5 (1.0-2.7) L Amylase Level 87 U/L (25-115) Lipase 114 U/L (73-393) Plan Problems: (1) Cocaine abuse (2) Anxiety (3) Cirrhosis Assessment & Plan: ABDOMEN: Liver: Cirrhosis. Gallbladder and bile ducts: Possible acute cholecystitis with mildly distended gallbladder, pericholecystic fluid, gallstones, mild wall thickening. Correlate with presentation. No ductal dilation. Pancreas: Unremarkable. No ductal dilation. Spleen: Similar splenomegaly 14.9 cm AP dimension. Adrenals: Unremarkable. No mass. Kidneys and ureters: Multiple bilateral renal probably benign hypodensities measure up to 1.7 cm on the right. Partly calcified left inferior renal pole structure, potentially a peripherally calcified cyst. No hydronephrosis. Stomach and bowel: Colonic diverticulosis without acute diverticulitis. No obstruction. PELVIS: Appendix: No findings to suggest acute appendicitis. Bladder: Urinary bladder wall thickening. No stones. Reproductive: Indeterminate potentially multiloculated right adnexal intervally increased in size, now 6.6 x 4.7 right 4.9 cm cystic structure. ABDOMEN and PELVIS: Intraperitoneal space: Small nonloculated low-attenuation ascites. No free air. Bones/joints: No acute fracture. No dislocation. Soft tissues: Anasarca. Vasculature: Numerous upper abdominal varices. Potentially recanalized umbilical vein. No abdominal aortic aneurysm. Lymph nodes: Unremarkable. No enlarged lymph nodes. IMPRESSION: 1. Study limited due to lack of IV contrast. 2. Possible acute cholecystitis with mildly distended gallbladder, pericholecystic fluid, gallstones, mild wall thickening. Correlate with presentation. 3. Urinary bladder wall thickening could be incidental, due to high outlet pressures, or could represent cystitis. 4. Mosaic lung attenuation could represent small airways disease. 5. Small right low-attenuation layering pleural effusion with passive atelectasis. 6. Recommend pelvic MRI to further characterize right adnexal cystic structure; neoplasm not excluded. 7. Probably benign renal findings above, and follow-up in 6 months to document stability of calcified left inferior renal pole structure. 8. Cirrhosis, splenomegaly, small, ascites, upper abdominal varices, recanalized umbilical vein. 9. Colonic diverticulosis without acute diverticulitis. (4) Adnexal mass (5) Recurrent vulvovaginal herpes simplex (6) Hyperkalemia (7) Hypertension (8) Intractable abdominal pain (9) Sick sinus syndrome (10) Fluid overload (11) Substance abuse (12) Pruritus (13) Cholecystitis, acute Assessment & Plan: 69-year-old female with extensive medical history end-stage renal disease on dialysis noncompliant at times history of catheter infections history of cirrhosis presenting with acute cholecystitis. CT reviewed. Patient states that since admission her pain is improved and she is feeling little bit better. Labs are improving. Currently no nausea vomiting fever chills. Tolerating diet. Given patient's comorbidities liver disease cirrhosis will plan for medical management as she is already showing improvement with antibiotics and resuscitation. I do long discussion with the patient regards to her care plan history comorbidities and the morbidity mortality associated potentially with surgical intervention. A cholecystomy can be considered but if able to manage with medical management would be in patient's best interest given her comorbidities. This will allow her time to resuscitate improved optimized and considerations of surgery in the future elective if potential. Continue IV antibiotics per infectious disease Case discussed Continue with diet as tolerated Ultrasound ordered We will follow serial exams and recs thank you (14) Weakness (15) HIV disease (16) Epileptic seizure, generalized (17) Open wound of chest wall (18) CHF (congestive heart failure), NYHA class II (19) HCV antibody positive (20) ESRD (end stage renal disease) on dialysis (21) Hypertensive urgency Deon Crowe Jun 26, 2020 13:40
--- NOTE | 2020-06-26 14:01 | NUR ---
CASE MANAGEMENT:REVIEW 69 YR OLD FEMALE BIBA FROM HOME CC: ABDOMINAL PAIN. FEVER SI:INTRACTABLE ABD PAIN. ACUTE CHOLECYSTITIS. HYPERKALEMIA 100.0 88 18 182/100 98% ON RA WBC-2.9 BUN+51 CR+9.7 IS: IV ZOFRAN IV DILAUDID IV ATIVAN KAYEXALATE PO IV ZOSYN CXR CT ABD/PELVIS : TO TELEMETRY
--- NOTE | 2020-06-26 15:15 | Consultation ---
DATE OF CONSULTATION: 06/25/2020 RENAL CONSULTATION LOCATION: Telemetry unit, [facility]. CONSULTING PHYSICIAN: Jack Pryor MD REFERRING PHYSICIAN: Michael Peralta MD REASON FOR CONSULTATION: I am asked to evaluate the patient at the request of Dr. Peralta for dialysis management. HISTORY OF PRESENT ILLNESS: The patient is under my care as an outpatient for her outpatient-related dialysis management. She referred to the emergency room here at [facility] for abdominal pain. She stated that the pain is diffuse in nature and is ongoing for 2 days. No nausea, no vomiting, no diarrhea, no fever, and no chills. The pain is 10/10 and taking [place] is not helping her. Allergies to aspirin, iodine, contrast dye, and nonsteroidal anti-inflammatories. COVID-19 screening even though she experienced the symptoms including cough and flu-like syndrome, however, the test has been negative. PAST MEDICAL HISTORY: Significant for end-stage renal disease, on hemodialysis, history of HIV disease, history of hepatitis C virus antibody positive, hypertension, substance abuse, noncompliance with medication and dialysis treatment, and anemia of chronic kidney disease. PHYSICAL EXAMINATION: VITAL SIGNS: Initially, blood pressure was 206/112, heart rate of 84, respiratory rate of 22. Blood pressure, however normalized later after admission. HEENT: Head normocephalic. Sclerae are not icteric. NECK: Full. JVP elevated. LUNGS: Decreased breath sound over the bases. HEART: Regular with systolic 1/6 murmur. ABDOMEN: Obese, soft, however, has voluntary guarding allover. EXTREMITIES: Lower extremities, no edema. SKIN: The patient has a dialysis catheter over the chest area in the form of PermCath. LABORATORY DATA: Initially, hemoglobin 10.5, white BCs 2.9. Creatinine 9.7, potassium 5.8. IMPRESSION: The patient refers with abdominal pain and possible cholecystitis, but with regard to renal status, the patient is hyperkalemic and missed dialysis and needs urgent dialysis. Also presents with hypertensive emergency, which is going to be treated as needed. PLAN: Hemodialysis as soon as possible. Blood pressure medication. ID and surgical evaluation. According to how the patient's condition evolves, we will make the proper changes in our future management. Jack Alek Pryor DR: Amilcar JOB#: [id number] CC:
--- NOTE | 2020-06-26 16:43 | Diagnostic Imaging Report ---
Indication: Abdominal pain, abnormal renal function tests, abnormal liver function tests Technique: Tyler-scale and duplex images of the upper abdomen were obtained Comparison: No comparison sonograms. Reference made to abdomen pelvis CT scan 06/25/2020 Findings: Gallbladder demonstrates gallstones. No wall thickening or pericholecystic fluid. There is trace free fluid adjacent to the gallbladder, however. Sonographic Magdaleno's sign is negative. Common bile duct measures 4 mm in diameter. No intrahepatic biliary ductal dilatation. Liver demonstrates mildly increased coarsened echogenicity, no focal abnormality. It demonstrates surface nodularity and is enlarged. Portal vein and hepatic veins are patent. Pancreas is unremarkable. The spleen is enlarged, measuring 13.9 cm long axis dimension. It demonstrates a prominent lobule versus accessory splenule. Left kidney measures 11.5 cm in length. Right kidney measures 10.8 cm length. Both kidneys demonstrate increased echogenicity There is no hydronephrosis. The right kidney demonstrates multiple cysts. . Non-aneurysmal abdominal aorta . There is a small amount of pleural fluid on the right Impression: Cholelithiasis. Negative for dilated bile ducts Trace free intraperitoneal fluid Enlarged liver. Surface nodularity and coarsened echogenicity suggests cirrhosis Splenomegaly Echogenic kidneys bilaterally, consistent with medical renal disease. Negative for hydronephrosis Small right pleural effusion Incidental finding multiple renal cysts
--- NOTE | 2020-06-26 16:48 | General Progress Note ---
Subjective Constitutional: Reports: malaise, weakness HEENT: Reports: no symptoms Cardiovascular: Reports: no symptoms Respiratory: Reports: no symptoms Gastrointestinal/Abdominal: Reports: abdominal pain Genitourinary: Reports: no symptoms Neurologic/Psychiatric: Reports: anxiety, depressed, emotional problems Endocrine: Reports: no symptoms Hematologic/Lymphatic: Reports: anemia Allergies: Coded Allergies: ASPIRIN (Unverified Allergy, Unknown, 01/16/20) IODINE (Verified Allergy, Unknown, 01/07/20) Uncoded Allergies: CONTRAST DYE (Allergy, Unknown, 01/07/20) NSAID (Allergy, Unknown, 04/24/20) All Systems: reviewed and negative except above Subjective abd pain better controlled. +fevers last night. no nausea or vomiting. +anxiety Objective Last 24 Hour Vital Signs Date Time Temp Pulse Resp B/P (MAP) Pulse Ox O2 Delivery O2 Flow Rate FiO2 06/26/20 16:00 99.7 72 20 146/61 (89) 96 06/26/20 14:24 153/76 06/26/20 13:21 98.1 06/26/20 12:00 73 06/26/20 12:00 98.1 64 20 153/76 (101) 96 06/26/20 09:20 65 18 156/79 96 06/26/20 09:00 Room Air 06/26/20 09:00 66 06/26/20 08:50 65 20 149/62 97 06/26/20 08:50 65 149/62 06/26/20 08:00 98.1 65 20 149/62 (91) 97 06/26/20 06:32 167/92 (117) 06/26/20 06:32 167/90 06/26/20 05:39 158/90 06/26/20 04:00 72 06/26/20 04:00 99.6 79 20 158/90 (112) 94 06/26/20 01:02 173/87 06/26/20 00:00 82 06/26/20 00:00 99.8 87 19 173/87 (115) 100 06/25/20 22:20 158/84 06/25/20 21:23 99.8 06/25/20 21:00 Room Air 06/25/20 20:00 78 06/25/20 20:00 100.8 84 21 157/84 (108) 98 06/25/20 18:19 98 20 140/88 94 06/25/20 17:49 92 20 142/78 94 Intake and Output 06/25/20 06/26/20 19:00 07:00 Intake Total 110 ml 400 ml Output Total 2000 ml Balance -1890 ml 400 ml Intake Oral 400 ml IV Total 110 ml Output Hemodialysis UF 2000 ml # Bowel Movements 1 Laboratory Tests 06/26/20 05:40: White Blood Count 3.9L, Red Blood Count 3.20L, Hemoglobin 9.3L, Hematocrit 30.9L , Mean Corpuscular Volume 97, Mean Corpuscular Hemoglobin 29.2, Mean Corpuscular Hemoglobin Concent 30.2L, Red Cell Distribution Width 17.0H, Platelet Count 119L , Mean Platelet Volume 7.0, Neutrophils (%) (Auto) 71.5, Lymphocytes (%) (Auto) 13.3L, Monocytes (%) (Auto) 11.2H, Eosinophils (%) (Auto) 2.8, Basophils (%) (Auto) 1.3, Sodium Level 137, Potassium Level 4.3, Chloride Level 98, Carbon Dioxide Level 32, Anion Gap 7, Blood Urea Nitrogen 29H, Creatinine 7.1H, Estimat Glomerular Filtration Rate 7.0, Glucose Level 93, Calcium Level 6.5L, Total Bilirubin 0.5, Aspartate Amino Transf (AST/SGOT) 31, Alanine Aminotransferase (ALT/SGPT) < 6L, Alkaline Phosphatase 69, Total Protein 9.1H, Albumin 3.0L, Globulin 6.1, Albumin/Globulin Ratio 0.5L, Amylase Level 87, Lipase 114 Height (Feet): 5 Height (Inches): 4.00 Weight (Pounds): 165 General Appearance: WD/WN, alert EENT: normal ENT inspection Neck: non-tender, normal alignment, supple Cardiovascular: normal peripheral pulses, normal rate, regular rhythm Respiratory/Chest: chest wall non-tender, lungs clear, normal breath sounds, no respiratory distress Abdomen: normal bowel sounds, non tender, soft Edema: no edema noted Arm (L), no edema noted Arm (R) Neurologic: film or videotape editor II-XII grossly normal, alert, oriented x 3 Assessment/Plan Problem List: (1) Cocaine abuse ICD Codes: F14.10 - Cocaine abuse, uncomplicated SNOMED: 79749962 (2) Cirrhosis ICD Codes: K74.60 - Unspecified cirrhosis of liver SNOMED: 07582466 Qualifiers: Qualified Codes: K74.60 - Unspecified cirrhosis of liver; R18.8 - Other ascites (3) Cholecystitis, acute ICD Codes: K81.0 - Acute cholecystitis SNOMED: 82449321 (4) HIV disease ICD Codes: B20 - Human immunodeficiency virus [HIV] disease SNOMED: 55390787 (5) Epileptic seizure, generalized ICD Codes: G40.309 - Generalized idiopathic epilepsy and epileptic syndromes, not intractable, without status epilepticus SNOMED: 90897287 (6) CHF (congestive heart failure), NYHA class II ICD Codes: I50.9 - Heart failure, unspecified SNOMED: 997868909, 033996427 (7) HCV antibody positive ICD Codes: R76.8 - Other specified abnormal immunological findings in serum SNOMED: 387292193 (8) ESRD (end stage renal disease) on dialysis ICD Codes: N18.6 - End stage renal disease; Z99.2 - Dependence on renal dialysis SNOMED: 038530002 (9) Hypertensive urgency ICD Codes: I16.0 - Hypertensive urgency SNOMED: 667542252 Status: stable Assessment/Plan: cont iv abx per id abd us follow up cultures pain rx dvt/stress ulcer prophylaxis d/w surgery- high risk. try to treat conservatively HD per renal prn anxiolytics Michael Peralta MD Jun 26, 2020 16:48
--- NOTE | 2020-06-26 19:19 | NUR ---
NURSE HAND-OFF REPORT: Important Events on Shift:[NA] Patient Status: [Full code] Diet: [Renal] Pending Orders: [Hemodialysis] Pending Results/Labs:[NA] Pending MD notification:[NA] Latest Vital Signs: Temperature 99.7 , Pulse 76 , B/P 146 /61 , Respiratory Rate 20 , O2 SAT 96 , Room Air, O2 Flow Rate . Vital Sign Comment: [] EKG Rhythm: Sinus Rhythm Rhythm change?: N MD Notified?: - MD Response: Latest Espinoza Fall Score: 85 Fall Risk: High Risk Safety Measures: Call light Within Reach, Bed Alarm Zone 1, Side Rails Side Rails x3, Bed position Low and Locked. Fall Precautions: Yellow Socks Yellow Gown Door Sign Patient Fall Education Report given to [MARTIN Puente].
--- NOTE | 2020-06-26 19:41 | NUR ---
NURSE NOTES: Received pt from MARTIN Henderson. Pt awake, alert, and talkative. Bed in lowest position. Call light within reach. Will continue to monitor.
[2020-06-26] MEDS: LORazepam 1mg tab ORAL PRN (20:57)
[2020-06-27] VITALS (7 sets, daily range): BP systolic 149–171; BP diastolic 74–86
--- NOTE | 2020-06-27 02:25 | Cardiology Progress Note ---
Subjective DATE OF SERVICE: Jun 26, 2020 Abdominal pain improved Low grade temps S/P HD/UF with corrected potassium levels BP parameters suboptimal, with elevations noted. +cocaine in tox screen again Objective Last 24 Hour Vital Signs Date Time Temp Pulse Resp B/P (MAP) Pulse Ox O2 Delivery O2 Flow Rate FiO2 06/27/20 00:47 165/83 06/27/20 00:00 67 06/27/20 00:00 97.9 76 20 165/83 (110) 95 06/26/20 21:27 72 20 160/88 92 06/26/20 20:57 72 20 160/88 92 06/26/20 20:52 160/88 06/26/20 20:00 97.5 72 20 160/88 (112) 92 06/26/20 20:00 71 06/26/20 18:36 99.7 06/26/20 16:00 99.7 72 20 146/61 (89) 96 06/26/20 16:00 76 06/26/20 14:24 153/76 06/26/20 13:21 98.1 06/26/20 12:00 73 06/26/20 12:00 98.1 64 20 153/76 (101) 96 06/26/20 09:20 65 18 156/79 96 06/26/20 09:00 Room Air 06/26/20 09:00 66 06/26/20 08:50 65 20 149/62 97 06/26/20 08:50 65 149/62 06/26/20 08:00 98.1 65 20 149/62 (91) 97 06/26/20 06:32 167/92 (117) 06/26/20 06:32 167/90 06/26/20 05:39 158/90 06/26/20 04:00 72 06/26/20 04:00 99.6 79 20 158/90 (112) 94 ROS: unchanged from 06/25/20 HEENT: normal ENT inspection RHYTHM: NSR, PVCs, PACs LUNGS: lungs clear bilaterally, other - left chest subclavian PermVCath CARDIAC: normal rate, regular rhythm, normal S1 and S2 ABDOMEN: normal bowel sounds, non tender, soft, no organomegaly EXTREMITIES: normal range of motion, non-tender, No edema Laboratory Tests Test 06/26/20 05:40 White Blood Count 3.9 K/UL (4.8-10.8) L Red Blood Count 3.20 M/UL (4.20-5.40) L Hemoglobin 9.3 G/DL (12.0-16.0) L Hematocrit 30.9 % (37.0-47.0) L Mean Corpuscular Volume 97 FL (80-99) Mean Corpuscular Hemoglobin 29.2 PG (27.0-31.0) Mean Corpuscular Hemoglobin Concent 30.2 G/DL (32.0-36.0) L Red Cell Distribution Width 17.0 % (11.6-14.8) H Platelet Count 119 K/UL (150-450) L Mean Platelet Volume 7.0 FL (6.5-10.1) Neutrophils (%) (Auto) 71.5 % (45.0-75.0) Lymphocytes (%) (Auto) 13.3 % (20.0-45.0) L Monocytes (%) (Auto) 11.2 % (1.0-10.0) H Eosinophils (%) (Auto) 2.8 % (0.0-3.0) Basophils (%) (Auto) 1.3 % (0.0-2.0) Sodium Level 137 MMOL/L (136-145) Potassium Level 4.3 MMOL/L (3.5-5.1) Chloride Level 98 MMOL/L (98-107) Carbon Dioxide Level 32 MMOL/L (21-32) Anion Gap 7 mmol/L (5-15) Blood Urea Nitrogen 29 mg/dL (7-18) H Creatinine 7.1 MG/DL (0.55-1.30) H Estimat Glomerular Filtration Rate 7.0 mL/min (>60) Glucose Level 93 MG/DL (74-106) Calcium Level 6.5 MG/DL (8.5-10.1) L Total Bilirubin 0.5 MG/DL (0.2-1.0) Aspartate Amino Transf (AST/SGOT) 31 U/L (15-37) Alanine Aminotransferase (ALT/SGPT) < 6 U/L (12-78) L Alkaline Phosphatase 69 U/L (46-116) Total Protein 9.1 G/DL (6.4-8.2) H Albumin 3.0 G/DL (3.4-5.0) L Globulin 6.1 g/dL Albumin/Globulin Ratio 0.5 (1.0-2.7) L Amylase Level 87 U/L (25-115) Lipase 114 U/L (73-393) Microbiology Date/Time Source Procedure Growth Status 06/25/20 05:30 Rectum Received 06/25/20 02:20 Blood Blood Culture - Preliminary Resulted 06/25/20 02:05 Blood Blood Culture - Preliminary NO GROWTH AFTER 24 HOURS Resulted 06/25/20 01:20 Vaginal Wet Prep - Final Complete 06/25/20 01:00 Nasopharynx SARS-CoV-2 RdRp Gene Assay - Final Complete Assessment/Plan Assessment/Plan ESRD Hyperkalemia Abdominal pain; possible acute cholecystitis Hypertension/HHD Ac/chr diastolic CHF Tachy-alysa syndrome Cocaine abuse HIV+ Hep C+ HD/UF HIDA scan Advance antiHTN meds if BP parameters remain elevated Avoid BBlockers and clonidine due to potential for bradyarrhythmias 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
[2020-06-27] MEDS: HYDROmorphone 1mg/ml Carpuject IVP PRN ×2 (03:19→09:33)
[2020-06-27] MEDS: LORazepam 1mg tab ORAL PRN ×2 (05:20→16:26)
[2020-06-27] MEDS: HydrALAZINE 25mg tab ORAL SCH ×3 (05:20→22:00)
[2020-06-27] MEDS: Piperacillin/Tazobactam 2.25 GM in D5W 55 ML IV SCH ×3 (05:20→22:00)
[2020-06-27] MEDS: Heparin 5000 units/ml inj SUBQ SCH ×3 (05:21→22:00)
[2020-06-27 06:48] LABS: HEMATOCRIT 32.1 % (37.0-47.0); HEMOGLOBIN 9.7 G/DL (12.0-16.0); MEAN CORPUSCULAR VOLUME 96 FL (80-99); PLATELET COUNT 110 K/UL (150-450); RED BLOOD COUNT 3.35 M/UL (4.20-5.40); RED CELL DISTRIBUTION WIDTH 16.7 % (11.6-14.8); WHITE BLOOD COUNT 3.2 K/UL (4.8-10.8)
--- NOTE | 2020-06-27 07:11 | NUR ---
NURSE HAND-OFF REPORT: Important Events on Shift: requested dilaudid 3 times last night. Patient Status: stable Diet: renal Pending Orders: labs Pending Results/Labs:y Pending MD notification:n Latest Vital Signs: Temperature 98.6 , Pulse 72 , B/P 166 /80 , Respiratory Rate 20 , O2 SAT 94 , Room Air, O2 Flow Rate . Vital Sign Comment: EKG Rhythm: Sinus Rhythm Rhythm change?: N MD Notified?: - MD Response: Latest Espinoza Fall Score: 70 Fall Risk: High Risk Safety Measures: Call light Within Reach, Bed Alarm Zone 1, Side Rails Side Rails x3, Bed position Low and Locked. Fall Precautions: Yellow Socks Yellow Gown Door Sign Patient Fall Education Report given to MARTIN Henderson.
[2020-06-27 07:12] LABS: ALANINE AMINOTRANSFERASE < 6 U/L (12-78); ALBUMIN 2.9 G/DL (3.4-5.0); ALBUMIN/GLOBULIN RATIO 0.5 (1.0-2.7); ALKALINE PHOSPHATASE 68 U/L (46-116); ANION GAP 9 mmol/L (5-15); ASPARTATE AMINO TRANSFERASE 27 U/L (15-37); BILIRUBIN,TOTAL 0.4 MG/DL (0.2-1.0); BLOOD UREA NITROGEN 34 mg/dL (7-18); CALCIUM 7.1 MG/DL (8.5-10.1); CARBON DIOXIDE 30 MMOL/L (21-32); CHLORIDE 96 MMOL/L (98-107); CREATININE 8.3 MG/DL (0.55-1.30); GAMMA GLUTAMYL TRANSPEPTIDASE 294 U/L (5-85); PHOSPHORUS 7.2 MG/DL (2.5-4.9); POTASSIUM 4.2 MMOL/L (3.5-5.1); SODIUM 135 MMOL/L (136-145)
--- NOTE | 2020-06-27 07:24 | General Progress Note ---
Subjective ROS Limited/Unobtainable: No Constitutional: Reports: malaise, weakness HEENT: Reports: no symptoms Cardiovascular: Reports: no symptoms Respiratory: Reports: no symptoms Gastrointestinal/Abdominal: Reports: abdominal pain Genitourinary: Reports: no symptoms Neurologic/Psychiatric: Reports: anxiety, depressed, emotional problems Endocrine: Reports: no symptoms Hematologic/Lymphatic: Reports: anemia Allergies: Coded Allergies: ASPIRIN (Unverified Allergy, Unknown, 01/16/20) IODINE (Verified Allergy, Unknown, 01/07/20) Uncoded Allergies: CONTRAST DYE (Allergy, Unknown, 01/07/20) NSAID (Allergy, Unknown, 04/24/20) All Systems: reviewed and negative except above Subjective no new complaints. same generalized abd pain and back pain. no fevers. US with gallstones but no neena dil. on iv abx. LFTS ok Objective Last 24 Hour Vital Signs Date Time Temp Pulse Resp B/P (MAP) Pulse Ox O2 Delivery O2 Flow Rate FiO2 06/27/20 05:50 72 20 166/80 94 06/27/20 05:20 72 20 166/80 94 06/27/20 05:20 166/80 06/27/20 04:53 166/80 (108) 06/27/20 04:00 98.6 72 20 171/84 (113) 94 06/27/20 04:00 67 06/27/20 00:47 165/83 06/27/20 00:00 67 06/27/20 00:00 97.9 76 20 165/83 (110) 95 06/26/20 21:27 72 20 160/88 92 06/26/20 21:00 Room Air 06/26/20 20:57 72 20 160/88 92 06/26/20 20:52 160/88 06/26/20 20:00 97.5 72 20 160/88 (112) 92 06/26/20 20:00 71 06/26/20 18:36 99.7 06/26/20 16:00 99.7 72 20 146/61 (89) 96 06/26/20 16:00 76 06/26/20 14:24 153/76 06/26/20 13:21 98.1 06/26/20 12:00 73 06/26/20 12:00 98.1 64 20 153/76 (101) 96 06/26/20 09:20 65 18 156/79 96 06/26/20 09:00 Room Air 06/26/20 09:00 66 06/26/20 08:50 65 20 149/62 97 06/26/20 08:50 65 149/62 06/26/20 08:00 98.1 65 20 149/62 (91) 97 Intake and Output 06/26/20 06/27/20 19:00 07:00 Intake Total 220 ml Balance 220 ml Intake Oral 220 ml Laboratory Tests 06/27/20 06:05: White Blood Count 3.2L, Red Blood Count 3.35L, Hemoglobin 9.7L, Hematocrit 32.1L , Mean Corpuscular Volume 96, Mean Corpuscular Hemoglobin 28.8, Mean Corpuscular Hemoglobin Concent 30.1L, Red Cell Distribution Width 16.7H, Platelet Count 110L , Mean Platelet Volume 7.0, Neutrophils (%) (Auto) , Lymphocytes (%) (Auto) , Monocytes (%) (Auto) , Eosinophils (%) (Auto) , Basophils (%) (Auto) , Neutrophils % (Manual) [Pending], Lymphocytes % (Manual) [Pending], Platelet Estimate [Pending], Platelet Morphology [Pending], Sodium Level 135L, Potassium Level 4.2, Chloride Level 96L, Carbon Dioxide Level 30, Anion Gap 9, Blood Urea Nitrogen 34H, Creatinine 8.3H, Estimat Glomerular Filtration Rate 5.8, Glucose Level 108H, Hemoglobin A1c [Pending], Uric Acid 5.6, Calcium Level 7.1L, Phosphorus Level 7.2H, Magnesium Level 2.3, Total Bilirubin 0.4, Gamma Glutamyl Transpeptidase 294H, Aspartate Amino Transf (AST/SGOT) 27, Alanine Aminotransferase (ALT/SGPT) < 6L, Alkaline Phosphatase 68, C-Reactive Protein, Quantitative 0.5, Pro-B-Type Natriuretic Peptide > 26941R, Total Protein 9.3H, Albumin 2.9L, Globulin 6.4, Albumin/Globulin Ratio 0.5L, Thyroid Stimulating Hormone (TSH) 6.629H Height (Feet): 5 Height (Inches): 4.00 Weight (Pounds): 165 General Appearance: WD/WN, alert EENT: normal ENT inspection Neck: non-tender, normal alignment Cardiovascular: normal rate, regular rhythm Respiratory/Chest: chest wall non-tender, lungs clear, normal breath sounds, no respiratory distress Abdomen: normal bowel sounds, soft, no organomegaly, no mass, guarding, tender Edema: no edema noted Arm (L), no edema noted Arm (R) 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, alert, oriented x 3, responsive Lymphatic: normal anterior cervical (L), normal anterior cervical (R) Assessment/Plan Problem List: (1) Cocaine abuse ICD Codes: F14.10 - Cocaine abuse, uncomplicated SNOMED: 19568977 (2) Cirrhosis ICD Codes: K74.60 - Unspecified cirrhosis of liver SNOMED: 49222420 Qualifiers: Qualified Codes: K74.60 - Unspecified cirrhosis of liver; R18.8 - Other ascites (3) Cholecystitis, acute ICD Codes: K81.0 - Acute cholecystitis SNOMED: 36009926 (4) HIV disease ICD Codes: B20 - Human immunodeficiency virus [HIV] disease SNOMED: 64222758 (5) Epileptic seizure, generalized ICD Codes: G40.309 - Generalized idiopathic epilepsy and epileptic syndromes, not intractable, without status epilepticus SNOMED: 12651236 (6) CHF (congestive heart failure), NYHA class II ICD Codes: I50.9 - Heart failure, unspecified SNOMED: 344937484, 321908096 (7) HCV antibody positive ICD Codes: R76.8 - Other specified abnormal immunological findings in serum SNOMED: 415996771 (8) ESRD (end stage renal disease) on dialysis ICD Codes: N18.6 - End stage renal disease; Z99.2 - Dependence on renal dialysis SNOMED: 048697859 (9) Hypertensive urgency ICD Codes: I16.0 - Hypertensive urgency SNOMED: 667670393 Status: stable Assessment/Plan: cont iv abx per id abd us noted surgery follow up follow up cultures pain rx dvt/stress ulcer prophylaxis d/w surgery- high risk. try to treat conservatively HD per renal prn anxiolytics Michael Peralta MD Jun 27, 2020 07:24
--- NOTE | 2020-06-27 08:35 | NUR ---
NURSE NOTES: Received patient report from MARTIN Puente. Patient is AO x4 awake and able to make needs known. Patient shows no signs of distress at the time. Patient was cleaned and changed bedding and gown. IV is intact and patent. there are no signs of erythema, infiltration, or bleeding. Bed is in the lowest position, call light is within reach, side rails up x3. Will continue to monitor.
--- NOTE | 2020-06-27 08:38 | NUR ---
NURSE NOTES: Called [facility] to verify hemodialysis appointment.
[2020-06-27] MEDS: TraZODone 50mg tab ORAL SCH ×2 (09:00→18:00)
[2020-06-27] MEDS: Docusate 100mg cap ORAL SCH ×2 (09:00→18:00)
[2020-06-27] MEDS: BuPROPion SR 150mg tab ORAL SCH (09:32)
[2020-06-27] MEDS: LORazepam 1mg tab ORAL SCH (09:32)
--- NOTE | 2020-06-27 10:52 | Surgery Progress Note ---
Surgery Progress Note Subjective Symptoms: improved, tolerating diet, passing flatus, BM, pain decreased Objective Last 24 Hour Vital Signs Date Time Temp Pulse Resp B/P (MAP) Pulse Ox O2 Delivery O2 Flow Rate FiO2 06/27/20 10:03 98.6 06/27/20 10:02 69 20 163/86 97 06/27/20 09:33 69 163/86 06/27/20 09:32 69 20 163/86 97 06/27/20 05:50 72 20 166/80 94 06/27/20 05:20 72 20 166/80 94 06/27/20 05:20 166/80 06/27/20 04:53 166/80 (108) 06/27/20 04:00 98.6 72 20 171/84 (113) 94 06/27/20 04:00 67 06/27/20 00:47 165/83 06/27/20 00:00 67 06/27/20 00:00 97.9 76 20 165/83 (110) 95 06/26/20 21:27 72 20 160/88 92 06/26/20 21:00 Room Air 06/26/20 20:57 72 20 160/88 92 06/26/20 20:52 160/88 06/26/20 20:00 97.5 72 20 160/88 (112) 92 06/26/20 20:00 71 06/26/20 18:36 99.7 06/26/20 16:00 99.7 72 20 146/61 (89) 96 06/26/20 16:00 76 06/26/20 14:24 153/76 06/26/20 13:21 98.1 06/26/20 12:00 73 06/26/20 12:00 98.1 64 20 153/76 (101) 96 I&O Intake and Output 06/26/20 06/27/20 19:00 07:00 Intake Total 220 ml Balance 220 ml Intake Oral 220 ml Cardiovascular: RSR Respiratory: clear, decreased breath sounds Abdomen: soft, non-tender, present bowel sounds, non-distended Extremities: no edema, no tenderness, no cyanosis Laboratory Tests Test 06/27/20 06:05 White Blood Count 3.2 K/UL (4.8-10.8) L Red Blood Count 3.35 M/UL (4.20-5.40) L Hemoglobin 9.7 G/DL (12.0-16.0) L Hematocrit 32.1 % (37.0-47.0) L Mean Corpuscular Volume 96 FL (80-99) Mean Corpuscular Hemoglobin 28.8 PG (27.0-31.0) Mean Corpuscular Hemoglobin Concent 30.1 G/DL (32.0-36.0) L Red Cell Distribution Width 16.7 % (11.6-14.8) H Platelet Count 110 K/UL (150-450) L Mean Platelet Volume 7.0 FL (6.5-10.1) Neutrophils (%) (Auto) % (45.0-75.0) Lymphocytes (%) (Auto) % (20.0-45.0) Monocytes (%) (Auto) % (1.0-10.0) Eosinophils (%) (Auto) % (0.0-3.0) Basophils (%) (Auto) % (0.0-2.0) Differential Total Cells Counted 100 Neutrophils % (Manual) 65 % (45-75) Lymphocytes % (Manual) 15 % (20-45) L Monocytes % (Manual) 16 % (1-10) H Eosinophils % (Manual) 4 % (0-3) H Basophils % (Manual) 0 % (0-2) Band Neutrophils 0 % (0-8) Platelet Estimate Decreased L Platelet Morphology Normal Hypochromasia 1+ Anisocytosis 1+ Sodium Level 135 MMOL/L (136-145) L Potassium Level 4.2 MMOL/L (3.5-5.1) Chloride Level 96 MMOL/L (98-107) L Carbon Dioxide Level 30 MMOL/L (21-32) Anion Gap 9 mmol/L (5-15) Blood Urea Nitrogen 34 mg/dL (7-18) H Creatinine 8.3 MG/DL (0.55-1.30) H Estimat Glomerular Filtration Rate 5.8 mL/min (>60) Glucose Level 108 MG/DL (74-106) H Hemoglobin A1c 4.5 % (4.3-6.0) Uric Acid 5.6 MG/DL (2.6-7.2) Calcium Level 7.1 MG/DL (8.5-10.1) L Phosphorus Level 7.2 MG/DL (2.5-4.9) H Magnesium Level 2.3 MG/DL (1.8-2.4) Total Bilirubin 0.4 MG/DL (0.2-1.0) Gamma Glutamyl Transpeptidase 294 U/L (5-85) H Aspartate Amino Transf (AST/SGOT) 27 U/L (15-37) Alanine Aminotransferase (ALT/SGPT) < 6 U/L (12-78) L Alkaline Phosphatase 68 U/L (46-116) C-Reactive Protein, Quantitative 0.5 mg/dL (0.00-0.90) Pro-B-Type Natriuretic Peptide > 06187 pg/mL (0-125) H Total Protein 9.3 G/DL (6.4-8.2) H Albumin 2.9 G/DL (3.4-5.0) L Globulin 6.4 g/dL Albumin/Globulin Ratio 0.5 (1.0-2.7) L Thyroid Stimulating Hormone (TSH) 6.629 uiU/mL (0.358-3.740) Plan Problems: (1) Cocaine abuse (2) Anxiety (3) Cirrhosis Assessment & Plan: ABDOMEN: Liver: Cirrhosis. Gallbladder and bile ducts: Possible acute cholecystitis with mildly distended gallbladder, pericholecystic fluid, gallstones, mild wall thickening. Correlate with presentation. No ductal dilation. Pancreas: Unremarkable. No ductal dilation. Spleen: Similar splenomegaly 14.9 cm AP dimension. Adrenals: Unremarkable. No mass. Kidneys and ureters: Multiple bilateral renal probably benign hypodensities measure up to 1.7 cm on the right. Partly calcified left inferior renal pole structure, potentially a peripherally calcified cyst. No hydronephrosis. Stomach and bowel: Colonic diverticulosis without acute diverticulitis. No obstruction. PELVIS: Appendix: No findings to suggest acute appendicitis. Bladder: Urinary bladder wall thickening. No stones. Reproductive: Indeterminate potentially multiloculated right adnexal intervally increased in size, now 6.6 x 4.7 right 4.9 cm cystic structure. ABDOMEN and PELVIS: Intraperitoneal space: Small nonloculated low-attenuation ascites. No free air. Bones/joints: No acute fracture. No dislocation. Soft tissues: Anasarca. Vasculature: Numerous upper abdominal varices. Potentially recanalized umbilical vein. No abdominal aortic aneurysm. Lymph nodes: Unremarkable. No enlarged lymph nodes. IMPRESSION: 1. Study limited due to lack of IV contrast. 2. Possible acute cholecystitis with mildly distended gallbladder, pericholecystic fluid, gallstones, mild wall thickening. Correlate with presentation. 3. Urinary bladder wall thickening could be incidental, due to high outlet pressures, or could represent cystitis. 4. Mosaic lung attenuation could represent small airways disease. 5. Small right low-attenuation layering pleural effusion with passive atelectasis. 6. Recommend pelvic MRI to further characterize right adnexal cystic structure; neoplasm not excluded. 7. Probably benign renal findings above, and follow-up in 6 months to document stability of calcified left inferior renal pole structure. 8. Cirrhosis, splenomegaly, small, ascites, upper abdominal varices, recanalized umbilical vein. 9. Colonic diverticulosis without acute diverticulitis. (4) Adnexal mass (5) Recurrent vulvovaginal herpes simplex (6) Hyperkalemia (7) Hypertension (8) Intractable abdominal pain (9) Sick sinus syndrome (10) Fluid overload (11) Substance abuse (12) Pruritus (13) Cholecystitis, acute Assessment & Plan: 69-year-old female with extensive medical history end-stage renal disease on dialysis noncompliant at times history of catheter infections history of cirrhosis presenting with acute cholecystitis. CT reviewed. Patient states that since admission her pain is improved and she is feeling little bit better. Labs are improving. Currently no nausea vomiting fever chills. Tolerating diet. Given patient's comorbidities liver disease cirrhosis will plan for medical management as she is already showing improvement with antibiotics and resuscitation. I do long discussion with the patient regards to her care plan history comorbidities and the morbidity mortality associated potentially with surgical intervention. A cholecystomy can be considered but if able to manage with m edical management would be in patient's best interest given her comorbidities. This will allow her time to resuscitate improved optimized and considerations of surgery in the future elective if potential. Continue IV antibiotics per infectious disease Case discussed Continue with diet as tolerated Ultrasound ordered We will follow serial exams and recs thank you (14) Weakness (15) HIV disease (16) Epileptic seizure, generalized (17) Open wound of chest wall (18) CHF (congestive heart failure), NYHA class II (19) HCV antibody positive (20) ESRD (end stage renal disease) on dialysis (21) Hypertensive urgency Deon Crowe Jun 27, 2020 10:52
--- NOTE | 2020-06-27 11:01 | Infectious Diseases Prog Note ---
Assessment/Plan Assessment/Plan antibiotics : zosyn A 1. cholecystitis 2. hypertension 3. HIV 4. renal failure on HD 5. cirrhosis 6. gram positive sepsis P 1. continue zosyn 2. start iv vancomycin 3. will follow up cultures Subjective Constitutional: Denies: fever, chills Respiratory: Denies: shortness of breath, dry cough Gastrointestinal/Abdominal: Denies: nausea, vomiting, diarrhea Musculoskeletal: Reports: pain - decreased Allergies: Coded Allergies: ASPIRIN (Unverified Allergy, Unknown, 01/16/20) IODINE (Verified Allergy, Unknown, 01/07/20) Uncoded Allergies: CONTRAST DYE (Allergy, Unknown, 01/07/20) NSAID (Allergy, Unknown, 04/24/20) Objective Last 24 Hour Vital Signs Date Time Temp Pulse Resp B/P (MAP) Pulse Ox O2 Delivery O2 Flow Rate FiO2 06/27/20 10:03 98.6 06/27/20 10:02 69 20 163/86 97 06/27/20 09:33 69 163/86 06/27/20 09:32 69 20 163/86 97 06/27/20 05:50 72 20 166/80 94 06/27/20 05:20 72 20 166/80 94 06/27/20 05:20 166/80 06/27/20 04:53 166/80 (108) 06/27/20 04:00 98.6 72 20 171/84 (113) 94 06/27/20 04:00 67 06/27/20 00:47 165/83 06/27/20 00:00 67 06/27/20 00:00 97.9 76 20 165/83 (110) 95 06/26/20 21:27 72 20 160/88 92 06/26/20 21:00 Room Air 06/26/20 20:57 72 20 160/88 92 06/26/20 20:52 160/88 06/26/20 20:00 97.5 72 20 160/88 (112) 92 06/26/20 20:00 71 06/26/20 18:36 99.7 06/26/20 16:00 99.7 72 20 146/61 (89) 96 06/26/20 16:00 76 06/26/20 14:24 153/76 06/26/20 13:21 98.1 06/26/20 12:00 73 06/26/20 12:00 98.1 64 20 153/76 (101) 96 Height (Feet): 5 Height (Inches): 4.00 Weight (Pounds): 165 Respiratory/Chest: lungs clear Cardiovascular: normal rate, regular rhythm, no gallop/murmur Abdomen: soft, non tender Extremities: no edema, other - left subclavian catheter Microbiology Date/Time Source Procedure Growth Status 06/25/20 05:30 Rectum - Final NO CARBAPENEM-RESISTANT ENTEROBACTERI... Complete 06/25/20 05:30 Rectum VRE Culture - Final Enterococcus Faecium - Vre Complete 06/25/20 02:20 Blood Blood Culture - Preliminary Gram Positive Cocci Resulted 06/25/20 02:05 Blood Blood Culture - Preliminary NO GROWTH AFTER 48 HOURS Resulted 06/25/20 01:20 Vaginal Wet Prep - Final Complete 06/25/20 01:00 Nasopharynx SARS-CoV-2 RdRp Gene Assay - Final Complete Laboratory Tests Test 06/27/20 06:05 White Blood Count 3.2 K/UL (4.8-10.8) L Red Blood Count 3.35 M/UL (4.20-5.40) L Hemoglobin 9.7 G/DL (12.0-16.0) L Hematocrit 32.1 % (37.0-47.0) L Mean Corpuscular Volume 96 FL (80-99) Mean Corpuscular Hemoglobin 28.8 PG (27.0-31.0) Mean Corpuscular Hemoglobin Concent 30.1 G/DL (32.0-36.0) L Red Cell Distribution Width 16.7 % (11.6-14.8) H Platelet Count 110 K/UL (150-450) L Mean Platelet Volume 7.0 FL (6.5-10.1) Neutrophils (%) (Auto) % (45.0-75.0) Lymphocytes (%) (Auto) % (20.0-45.0) Monocytes (%) (Auto) % (1.0-10.0) Eosinophils (%) (Auto) % (0.0-3.0) Basophils (%) (Auto) % (0.0-2.0) Differential Total Cells Counted 100 Neutrophils % (Manual) 65 % (45-75) Lymphocytes % (Manual) 15 % (20-45) L Monocytes % (Manual) 16 % (1-10) H Eosinophils % (Manual) 4 % (0-3) H Basophils % (Manual) 0 % (0-2) Band Neutrophils 0 % (0-8) Platelet Estimate Decreased L Platelet Morphology Normal Hypochromasia 1+ Anisocytosis 1+ Sodium Level 135 MMOL/L (136-145) L Potassium Level 4.2 MMOL/L (3.5-5.1) Chloride Level 96 MMOL/L (98-107) L Carbon Dioxide Level 30 MMOL/L (21-32) Anion Gap 9 mmol/L (5-15) Blood Urea Nitrogen 34 mg/dL (7-18) H Creatinine 8.3 MG/DL (0.55-1.30) H Estimat Glomerular Filtration Rate 5.8 mL/min (>60) Glucose Level 108 MG/DL (74-106) H Hemoglobin A1c 4.5 % (4.3-6.0) Uric Acid 5.6 MG/DL (2.6-7.2) Calcium Level 7.1 MG/DL (8.5-10.1) L Phosphorus Level 7.2 MG/DL (2.5-4.9) H Magnesium Level 2.3 MG/DL (1.8-2.4) Total Bilirubin 0.4 MG/DL (0.2-1.0) Gamma Glutamyl Transpeptidase 294 U/L (5-85) H Aspartate Amino Transf (AST/SGOT) 27 U/L (15-37) Alanine Aminotransferase (ALT/SGPT) < 6 U/L (12-78) L Alkaline Phosphatase 68 U/L (46-116) C-Reactive Protein, Quantitative 0.5 mg/dL (0.00-0.90) Pro-B-Type Natriuretic Peptide > 25274 pg/mL (0-125) H Total Protein 9.3 G/DL (6.4-8.2) H Albumin 2.9 G/DL (3.4-5.0) L Globulin 6.4 g/dL Albumin/Globulin Ratio 0.5 (1.0-2.7) L Thyroid Stimulating Hormone (TSH) 6.629 uiU/mL (0.358-3.740) Current Medications Medications (Trade) Dose Ordered Sig/Rochelle Route PRN Reason Start Time Stop Time Status Last Admin Dose Admin Acetaminophen (Tylenol) 650 mg Q4H PRN ORAL Temp >100.5 06/25/20 20:45 07/25/20 20:44 06/25/20 20:53 Amlodipine Besylate (Norvasc) 10 mg DAILY ORAL 06/25/20 09:00 07/25/20 08:59 06/27/20 09:33 Bupropion HCl (Wellbutrin SR) 150 mg DAILY ORAL 06/25/20 09:00 07/25/20 08:59 06/27/20 09:32 Clonidine HCl (Catapres Tab) 0.1 mg Q4H PRN ORAL bp over 165 syst 06/25/20 10:15 09/23/20 10:14 06/27/20 00:47 Docusate Sodium (Colace) 100 mg BID ORAL 06/25/20 09:00 07/25/20 08:59 06/26/20 08:50 Dolutegravir Sodium (Tivicay) 50 mg DAILY ORAL 06/25/20 09:00 09/23/20 08:59 UNV Escitalopram Oxalate (Lexapro) 10 mg DAILY ORAL 06/25/20 09:00 07/25/20 08:59 06/27/20 09:31 Heparin Sodium (Porcine) (Heparin 5000 units/ml) 5,000 units Q8HR SUBQ 06/25/20 09:30 08/09/20 09:29 06/26/20 14:25 Hydralazine HCl (Apresoline) 75 mg EVERY 8 HOURS ORAL 06/25/20 08:30 09/23/20 08:29 06/27/20 05:20 Hydromorphone HCl (Dilaudid) 2 mg Q4H PRN IVP Severe Pain (Pain Scale 7-10) 06/25/20 09:45 07/02/20 06:44 06/27/20 09:33 Hydroxyzine HCl (Atarax) 25 mg THREE TIMES A DAY PRN ORAL Itching 06/25/20 10:00 07/25/20 09:59 06/26/20 06:30 Levothyroxine Sodium (Synthroid) 75 mcg DAILY ORAL 06/25/20 09:00 07/25/20 08:59 06/27/20 09:33 Lorazepam (Ativan) 1 mg DAILY ORAL 06/25/20 09:00 07/02/20 08:59 06/27/20 09:32 Lorazepam (Ativan) 1 mg Q8H PRN ORAL For Anxiety 06/25/20 17:30 07/02/20 17:29 06/27/20 05:20 Ondansetron HCl (Zofran) 4 mg Q6H PRN IVP Nausea & Vomiting 06/25/20 14:00 07/25/20 13:59 06/26/20 01:02 Pantoprazole (Protonix) 40 mg BID ORAL 06/25/20 09:00 07/25/20 08:59 06/27/20 09:33 Piperacillin Sod/ Tazobactam Sod 2.25 gm/Dextrose 55 ml @ 110 mls/hr Q8HR IV 06/25/20 10:00 06/30/20 09:59 06/27/20 05:20 Sevelamer Carbonate (Renvela) 1,600 mg THREE TIMES A DAY ORAL 06/27/20 09:00 09/25/20 08:59 06/27/20 09:31 Trazodone HCl (Desyrel) 50 mg BID ORAL 06/25/20 09:00 07/25/20 08:59 06/25/20 17:11 Elvis Garibay MD Jun 27, 2020 11:01
--- NOTE | 2020-06-27 11:56 | Nephrology Progress Note ---
Assessment/Plan Assessment (1) ESRD (end stage renal disease) on dialysis (2) HIV disease (3) HCV antibody positive (4) Hypertensive urgency (5) Substance abuse (6) Noncompliance (7) Anemia of chronic kidney disease Plan June 27: Patient due for dialysis today. Labs reviewed. Blood pressure medication adjusted. Continue per ID and other consultants. June 26: Patient was dialyzed and ultrafiltrate had yesterday. Today's labs reviewed. Will arrange for dialysis again tomorrow. Continue per PMD and consultants. Subjective ROS Limited/Unobtainable: No Constitutional: Reports: malaise Objective Objective Last 24 Hour Vital Signs Date Time Temp Pulse Resp B/P (MAP) Pulse Ox O2 Delivery O2 Flow Rate FiO2 06/27/20 10:03 98.6 06/27/20 10:02 69 20 163/86 97 06/27/20 09:33 69 163/86 06/27/20 09:32 69 20 163/86 97 06/27/20 05:50 72 20 166/80 94 06/27/20 05:20 72 20 166/80 94 06/27/20 05:20 166/80 06/27/20 04:53 166/80 (108) 06/27/20 04:00 98.6 72 20 171/84 (113) 94 06/27/20 04:00 67 06/27/20 00:47 165/83 06/27/20 00:00 67 06/27/20 00:00 97.9 76 20 165/83 (110) 95 06/26/20 21:27 72 20 160/88 92 06/26/20 21:00 Room Air 06/26/20 20:57 72 20 160/88 92 06/26/20 20:52 160/88 06/26/20 20:00 97.5 72 20 160/88 (112) 92 06/26/20 20:00 71 06/26/20 18:36 99.7 06/26/20 16:00 99.7 72 20 146/61 (89) 96 06/26/20 16:00 76 06/26/20 14:24 153/76 06/26/20 13:21 98.1 06/26/20 12:00 73 06/26/20 12:00 98.1 64 20 153/76 (101) 96 Intake and Output 06/26/20 06/27/20 19:00 07:00 Intake Total 220 ml Balance 220 ml Intake Oral 220 ml Current Medications Medications (Trade) Dose Ordered Sig/Rochelle Route PRN Reason Start Time Stop Time Status Last Admin Dose Admin Acetaminophen (Tylenol) 650 mg Q4H PRN ORAL Temp >100.5 06/25/20 20:45 07/25/20 20:44 06/25/20 20:53 Amlodipine Besylate (Norvasc) 10 mg DAILY ORAL 06/25/20 09:00 07/25/20 08:59 06/27/20 09:33 Bupropion HCl (Wellbutrin SR) 150 mg DAILY ORAL 06/25/20 09:00 07/25/20 08:59 06/27/20 09:32 Clonidine HCl (Catapres Tab) 0.1 mg Q4H PRN ORAL bp over 165 syst 06/25/20 10:15 09/23/20 10:14 06/27/20 00:47 Docusate Sodium (Colace) 100 mg BID ORAL 06/25/20 09:00 07/25/20 08:59 06/26/20 08:50 Dolutegravir Sodium (Tivicay) 50 mg DAILY ORAL 06/25/20 09:00 09/23/20 08:59 UNV Escitalopram Oxalate (Lexapro) 10 mg DAILY ORAL 06/25/20 09:00 07/25/20 08:59 06/27/20 09:31 Heparin Sodium (Porcine) (Heparin 5000 units/ml) 5,000 units Q8HR SUBQ 06/25/20 09:30 08/09/20 09:29 06/26/20 14:25 Hydralazine HCl (Apresoline) 75 mg EVERY 8 HOURS ORAL 06/25/20 08:30 09/23/20 08:29 06/27/20 05:20 Hydromorphone HCl (Dilaudid) 2 mg Q4H PRN IVP Severe Pain (Pain Scale 7-10) 06/27/20 11:29 07/04/20 11:28 Hydroxyzine HCl (Atarax) 25 mg THREE TIMES A DAY PRN ORAL Itching 06/25/20 10:00 07/25/20 09:59 06/26/20 06:30 Levothyroxine Sodium (Synthroid) 75 mcg DAILY ORAL 06/25/20 09:00 07/25/20 08:59 06/27/20 09:33 Lorazepam (Ativan) 1 mg DAILY ORAL 06/25/20 09:00 07/02/20 08:59 06/27/20 09:32 Lorazepam (Ativan) 1 mg Q8H PRN ORAL For Anxiety 06/25/20 17:30 07/02/20 17:29 06/27/20 05:20 Ondansetron HCl (Zofran) 4 mg Q6H PRN IVP Nausea & Vomiting 06/25/20 14:00 07/25/20 13:59 06/26/20 01:02 Pantoprazole (Protonix) 40 mg BID ORAL 06/25/20 09:00 07/25/20 08:59 06/27/20 09:33 Piperacillin Sod/ Tazobactam Sod 2.25 gm/Dextrose 55 ml @ 110 mls/hr Q8HR IV 06/25/20 10:00 06/30/20 09:59 06/27/20 05:20 Sevelamer Carbonate (Renvela) 1,600 mg THREE TIMES A DAY ORAL 06/27/20 09:00 09/25/20 08:59 06/27/20 09:31 Trazodone HCl (Desyrel) 50 mg BID ORAL 06/25/20 09:00 07/25/20 08:59 06/25/20 17:11 Vancomycin HCl 250 ml @ 166.667 mls/hr ONCE ONCE IVPB 06/27/20 12:00 06/27/20 13:29 Vancomycin HCl ([facility] pharmacy to dose) 1 ea DAILY PRN MISC Per rx protocol 06/27/20 11:15 07/27/20 11:14 Laboratory Tests 06/27/20 06:05: White Blood Count 3.2L, Red Blood Count 3.35L, Hemoglobin 9.7L, Hematocrit 32.1L , Mean Corpuscular Volume 96, Mean Corpuscular Hemoglobin 28.8, Mean Corpuscular Hemoglobin Concent 30.1L, Red Cell Distribution Width 16.7H, Platelet Count 110L , Mean Platelet Volume 7.0, Neutrophils (%) (Auto) , Lymphocytes (%) (Auto) , Mo nocytes (%) (Auto) , Eosinophils (%) (Auto) , Basophils (%) (Auto) , Differential Total Cells Counted 100, Neutrophils % (Manual) 65, Lymphocytes % (Manual) 15L, Monocytes % (Manual) 16H, Eosinophils % (Manual) 4H, Basophils % (Manual) 0, Band Neutrophils 0, Platelet Estimate DecreasedL, Platelet Mo rphology Normal, Hypochromasia 1+, Anisocytosis 1+, Sodium Level 135L, Potassium Level 4.2, Chloride Level 96L, Carbon Dioxide Level 30, Anion Gap 9, Blood Urea Nitrogen 34H, Creatinine 8.3H, Estimat Glomerular Filtration Rate 5.8, Glucose Level 108H, Hemoglobin A1c 4.5, Uric Acid 5.6, Calcium Level 7.1L, Phosphorus Level 7.2H, Magnesium Level 2.3, Total Bilirubin 0.4, Gamma Glutamyl Transpeptidase 294H, Aspartate Amino Transf (AST/SGOT) 27, Alanine Aminotr ansferase (ALT/SGPT) < 6L, Alkaline Phosphatase 68, C-Reactive Protein, Quantitative 0.5, Pro-B-Type Natriuretic Peptide > 96373W, Total Protein 9.3H, Albumin 2.9L, Globulin 6.4, Albumin/Globulin Ratio 0.5L, Thyroid Stimulating Hormone (TSH) 6.629H Height (Feet): 5 Height (Inches): 4.00 Weight (Pounds): 165 General Appearance: no apparent distress, lethargic Cardiovascular: normal rate Respiratory/Chest: decreased breath sounds Abdomen: distended Jack Pryor MD Jun 27, 2020 11:56
[2020-06-27] MEDS ORDERED: Vancomycin 1.25gm Premix IVPB ONE (12:00)
[2020-06-27] MEDS ORDERED: Lisinopril 10mg tab ORAL SCH (12:00)
[2020-06-27] MEDS: HydrOXYzine tab 25mg tab ORAL PRN (16:26)
--- NOTE | 2020-06-27 19:18 | NUR ---
NURSE HAND-OFF REPORT: Important Events on Shift:[HIV meds taken to pharmacy, receipt in chart] Patient Status: []Full code Diet: [Renal] Pending Orders: []Hemodialysis Pending Results/Labs:[] Pending MD notification:[] Latest Vital Signs: Temperature 97.6 , Pulse 71 , B/P 169 /77 , Respiratory Rate 20 , O2 SAT 97 , Room Air, O2 Flow Rate . Vital Sign Comment: [] EKG Rhythm: Sinus Rhythm Rhythm change?: N MD Notified?: - MD Response: Latest Espinoza Fall Score: 85 Fall Risk: High Risk Safety Measures: Call light Within Reach, Bed Alarm Zone 1, Side Rails Side Rails x3, Bed position Low and Locked. Fall Precautions: Yellow Socks Yellow Gown Door Sign Patient Fall Education Report given to [MARTIN Yung].
--- NOTE | 2020-06-27 19:30 | NUR ---
NURSE NOTES: Received report from MARTIN Henderson. Patient is awake, alert and oriented x 3. youth nutritional monitor is on shows sinus rhythm with no chest pain reported. On renal diet, instructed and amenable. On room air, sating 93% and no shortness of breath at this time. Patient is on fall precaution, bed alarm is on. HD access left permacath double lumen. IV site is on right EJ g-18 saline lock that is patent and intact. Safety measures are in place, bed in lowest and locked position, side rails up x 2, call light button and bedside table within reach, instructed to call for any assistance needed. Will continue plan of care.
[2020-06-27] MEDS: Patient's Own Med - Tivicay 50mg ORAL SCH (20:00)
[2020-06-27] MEDS: Patient's Own Med - Ritonavir 100mg ORAL SCH (20:00)
--- NOTE | 2020-06-27 21:00 | NUR ---
NURSE NOTES: Patient is schedule for dialysis today. Ordered verified. Staff from [facility] nephrology came. Will continue to monitor.
--- NOTE | 2020-06-27 23:02 | Cardiology Progress Note ---
Subjective DATE OF SERVICE: Jun 27, 2020 Abdominal pain improved; tolerating diet S/P HD/UF with corrected potassium levels BP parameters suboptimal, with elevations noted. +cocaine in tox screen again +blood cultures with gram pos cocci Monitor: sinus with episodes of SVT. Objective Last 24 Hour Vital Signs Date Time Temp Pulse Resp B/P (MAP) Pulse Ox O2 Delivery O2 Flow Rate FiO2 06/27/20 16:56 71 20 169/77 97 06/27/20 16:26 71 20 169/77 97 06/27/20 16:00 75 06/27/20 16:00 97.6 77 20 149/75 (99) 100 06/27/20 15:50 97.7 06/27/20 14:38 169/77 06/27/20 12:15 169/77 06/27/20 12:00 97.7 71 20 169/77 (107) 97 06/27/20 12:00 71 06/27/20 10:03 98.6 06/27/20 10:02 69 20 163/86 97 06/27/20 09:33 69 163/86 06/27/20 09:32 69 20 163/86 97 06/27/20 09:00 Room Air 06/27/20 08:00 72 06/27/20 08:00 97.7 69 20 163/86 (111) 97 06/27/20 05:50 72 20 166/80 94 06/27/20 05:20 72 20 166/80 94 06/27/20 05:20 166/80 06/27/20 04:53 166/80 (108) 06/27/20 04:00 98.6 72 20 171/84 (113) 94 06/27/20 04:00 67 06/27/20 00:47 165/83 06/27/20 00:00 67 06/27/20 00:00 97.9 76 20 165/83 (110) 95 ROS: unchanged from 06/25/20 HEENT: normal ENT inspection RHYTHM: NSR, PVCs, PACs LUNGS: lungs clear bilaterally, other - left chest subclavian PermVCath CARDIAC: normal rate, regular rhythm, normal S1 and S2 ABDOMEN: normal bowel sounds, non tender, soft, no organomegaly EXTREMITIES: normal range of motion, non-tender, No edema Laboratory Tests Test 06/27/20 06:05 White Blood Count 3.2 K/UL (4.8-10.8) L Red Blood Count 3.35 M/UL (4.20-5.40) L Hemoglobin 9.7 G/DL (12.0-16.0) L Hematocrit 32.1 % (37.0-47.0) L Mean Corpuscular Volume 96 FL (80-99) Mean Corpuscular Hemoglobin 28.8 PG (27.0-31.0) Mean Corpuscular Hemoglobin Concent 30.1 G/DL (32.0-36.0) L Red Cell Distribution Width 16.7 % (11.6-14.8) H Platelet Count 110 K/UL (150-450) L Mean Platelet Volume 7.0 FL (6.5-10.1) Neutrophils (%) (Auto) % (45.0-75.0) Lymphocytes (%) (Auto) % (20.0-45.0) Monocytes (%) (Auto) % (1.0-10.0) Eosinophils (%) (Auto) % (0.0-3.0) Basophils (%) (Auto) % (0.0-2.0) Differential Total Cells Counted 100 Neutrophils % (Manual) 65 % (45-75) Lymphocytes % (Manual) 15 % (20-45) L Monocytes % (Manual) 16 % (1-10) H Eosinophils % (Manual) 4 % (0-3) H Basophils % (Manual) 0 % (0-2) Band Neutrophils 0 % (0-8) Platelet Estimate Decreased L Platelet Morphology Normal Hypochromasia 1+ Anisocytosis 1+ Sodium Level 135 MMOL/L (136-145) L Potassium Level 4.2 MMOL/L (3.5-5.1) Chloride Level 96 MMOL/L (98-107) L Carbon Dioxide Level 30 MMOL/L (21-32) Anion Gap 9 mmol/L (5-15) Blood Urea Nitrogen 34 mg/dL (7-18) H Creatinine 8.3 MG/DL (0.55-1.30) H Estimat Glomerular Filtration Rate 5.8 mL/min (>60) Glucose Level 108 MG/DL (74-106) H Hemoglobin A1c 4.5 % (4.3-6.0) Uric Acid 5.6 MG/DL (2.6-7.2) Calcium Level 7.1 MG/DL (8.5-10.1) L Phosphorus Level 7.2 MG/DL (2.5-4.9) H Magnesium Level 2.3 MG/DL (1.8-2.4) Total Bilirubin 0.4 MG/DL (0.2-1.0) Gamma Glutamyl Transpeptidase 294 U/L (5-85) H Aspartate Amino Transf (AST/SGOT) 27 U/L (15-37) Alanine Aminotransferase (ALT/SGPT) < 6 U/L (12-78) L Alkaline Phosphatase 68 U/L (46-116) C-Reactive Protein, Quantitative 0.5 mg/dL (0.00-0.90) Pro-B-Type Natriuretic Peptide > 02100 pg/mL (0-125) H Total Protein 9.3 G/DL (6.4-8.2) H Albumin 2.9 G/DL (3.4-5.0) L Globulin 6.4 g/dL Albumin/Globulin Ratio 0.5 (1.0-2.7) L Thyroid Stimulating Hormone (TSH) 6.629 uiU/mL (0.358-3.740) Microbiology Date/Time Source Procedure Growth Status 06/25/20 05:30 Rectum - Final NO CARBAPENEM-RESISTANT ENTEROBACTERI... Complete 06/25/20 05:30 Rectum VRE Culture - Final Enterococcus Faecium - Vre Complete 06/25/20 05:30 Nasal Nares Left MRSA Culture - Final NO METHICILLIN RESISTANT STAPH AUREUS... Complete 06/25/20 02:20 Blood Blood Culture - Preliminary Gram Positive Cocci Resulted 06/25/20 02:05 Blood Blood Culture - Preliminary Resulted 06/25/20 01:20 Vaginal Wet Prep - Final Complete 06/25/20 01:00 Nasopharynx SARS-CoV-2 RdRp Gene Assay - Final Complete Assessment/Plan Assessment/Plan ESRD Gram positive sepsis with bacteremia - possible line infection. 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 Nam Barnett MD Jun 27, 2020 23:02
[2020-06-28] VITALS (7 sets, daily range): BP systolic 141–172; BP diastolic 72–93
--- NOTE | 2020-06-28 00:10 | NUR ---
NURSE NOTES: Hemodialysis done, 2 liters out. Patient is in stable condition, no bleeding noted over the HD access.
[2020-06-28] MEDS: HydrOXYzine tab 25mg tab ORAL PRN ×3 (00:45→21:54)
--- NOTE | 2020-06-28 04:40 | NUR ---
TRANSFER TO FLOOR: Patient transferred to 4E ([id number]), per bed. Report given to MARTIN Hayden. Belongings and medications given to receiving nurse. Family and or S/O informed of transfer. At this time patient is in stable condition, plan of care endorsed.
--- NOTE | 2020-06-28 05:00 | NUR ---
NURSE NOTES: Received report from Teena SALAZAR. Patient is awake, alert and oriented x 3-4. Patient is on fall precautions, bed alarm is on. HD access left permacath double lumen. IV site not patent, will reinsert.Safety measures are in place, bed in lowest and locked position, side rails up x 2, call light button and bedside table within reach, instructed to call for any assistance needed. Will continue plan of care.
[2020-06-28] MEDS: Piperacillin/Tazobactam 2.25 GM in D5W 55 ML IV SCH ×3 (05:13→21:27)
[2020-06-28] MEDS: HydrALAZINE 25mg tab ORAL SCH ×3 (05:14→21:28)
[2020-06-28] MEDS: Heparin 5000 units/ml inj SUBQ SCH ×3 (05:22→21:32)
[2020-06-28] MEDS ORDERED: HydrALAZINE 25mg tab ORAL SCH (06:00)
[2020-06-28] MEDS: LORazepam 1mg tab ORAL SCH (06:24)
--- NOTE | 2020-06-28 07:55 | NUR ---
NURSE NOTES: Patient is awake and alert and oriented,respirations unlabored.patient sitting up in bed and eating breakfast.Permacath intact to the upper upper chest in place. saline lock left forearm intact.Bed alarm on,call light within reach.
[2020-06-28] MEDS: TraZODone 50mg tab ORAL SCH ×2 (09:00→18:00)
--- NOTE | 2020-06-28 09:10 | General Progress Note ---
Subjective ROS Limited/Unobtainable: No Constitutional: Reports: malaise, weakness HEENT: Reports: no symptoms Cardiovascular: Reports: no symptoms Respiratory: Reports: no symptoms Gastrointestinal/Abdominal: Reports: abdominal pain Genitourinary: Reports: no symptoms Neurologic/Psychiatric: Reports: anxiety Endocrine: Reports: no symptoms Hematologic/Lymphatic: Reports: no symptoms Allergies: Coded Allergies: ASPIRIN (Unverified Allergy, Unknown, 01/16/20) IODINE (Verified Allergy, Unknown, 01/07/20) Uncoded Allergies: CONTRAST DYE (Allergy, Unknown, 01/07/20) NSAID (Allergy, Unknown, 04/24/20) All Systems: reviewed and negative except above Subjective no new complaints. same generalized abd pain and back pain. no fevers. US with gallstones but no neena dil. on iv abx. LFTS ok Objective Last 24 Hour Vital Signs Date Time Temp Pulse Resp B/P (MAP) Pulse Ox O2 Delivery O2 Flow Rate FiO2 06/28/20 06:24 64 18 161/77 93 06/28/20 05:43 98.6 06/28/20 05:14 161/77 06/28/20 04:00 98.1 64 18 158/77 (104) 93 06/28/20 03:00 161/77 (105) 06/28/20 00:45 173/90 06/28/20 00:00 98.6 70 20 172/93 (119) 92 06/27/20 21:00 Room Air 06/27/20 20:00 99.5 73 18 151/74 (99) 93 06/27/20 16:56 71 20 169/77 97 06/27/20 16:26 71 20 169/77 97 06/27/20 16:00 75 06/27/20 16:00 97.6 77 20 149/75 (99) 100 06/27/20 15:50 97.7 06/27/20 14:38 169/77 06/27/20 12:15 169/77 06/27/20 12:00 97.7 71 20 169/77 (107) 97 06/27/20 12:00 71 06/27/20 10:03 98.6 06/27/20 10:02 69 20 163/86 97 06/27/20 09:33 69 163/86 06/27/20 09:32 69 20 163/86 97 Intake and Output 06/27/20 06/28/20 19:00 07:00 # Bowel Movements 1 Laboratory Tests 06/28/20 04:19: Random Vancomycin Level 15.9 Height (Feet): 5 Height (Inches): 4.00 Weight (Pounds): 165 Objective General Appearance: WD/WN, alert EENT: normal ENT inspection Neck: non-tender, normal alignment Cardiovascular: normal rate, regular rhythm Respiratory/Chest: chest wall non-tender, lungs clear, normal breath sounds, no respiratory distress Abdomen: normal bowel sounds, soft, no organomegaly, no mass, guarding, tender Edema: no edema noted Arm (L), no edema noted Arm (R) 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 grossly normal, alert, oriented x 3, responsive Lymphatic: normal anterior cervical (L), normal anterior cervical (R) Assessment/Plan Problem List: (1) Cocaine abuse ICD Codes: F14.10 - Cocaine abuse, uncomplicated SNOMED: 31424609 (2) Cirrhosis ICD Codes: K74.60 - Unspecified cirrhosis of liver SNOMED: 20194036 Qualifiers: Qualified Codes: K74.60 - Unspecified cirrhosis of liver; R18.8 - Other ascites (3) Cholecystitis, acute ICD Codes: K81.0 - Acute cholecystitis SNOMED: 84345528 (4) HIV disease ICD Codes: B20 - Human immunodeficiency virus [HIV] disease SNOMED: 59469781 (5) Epileptic seizure, generalized ICD Codes: G40.309 - Generalized idiopathic epilepsy and epileptic syndromes, not intractable, without status epilepticus SNOMED: 12473973 (6) CHF (congestive heart failure), NYHA class II ICD Codes: I50.9 - Heart failure, unspecified SNOMED: 512386602, 304297112 (7) HCV antibody positive ICD Codes: R76.8 - Other specified abnormal immunological findings in serum SNOMED: 255824576 (8) ESRD (end stage renal disease) on dialysis ICD Codes: N18.6 - End stage renal disease; Z99.2 - Dependence on renal dialysis SNOMED: 067782807 (9) Hypertensive urgency ICD Codes: I16.0 - Hypertensive urgency SNOMED: 807580667 Status: stable Assessment/Plan: cont iv abx per id abd us noted surgery follow up follow up cultures pain rx dvt/stress ulcer prophylaxis d/w surgery- high risk. try to treat conservatively HD per renal prn anxiolytics Michael Peralta MD Jun 28, 2020 09:10
[2020-06-28] MEDS: Docusate 100mg cap ORAL SCH ×2 (09:11→18:29)
[2020-06-28] MEDS: BuPROPion SR 150mg tab ORAL SCH (09:13)
[2020-06-28] MEDS: Patient's Own Med - Ritonavir 100mg ORAL SCH ×2 (09:13→18:30)
[2020-06-28] MEDS: Patient's Own Med - Tivicay 50mg ORAL SCH (09:13)
--- NOTE | 2020-06-28 09:54 | NUR ---
RD ASSESSMENT & RECOMMENDATIONS SEE CARE ACTIVITY FOR COMPLETE ASSESSMENT DAILY ESTIMATED NEEDS: Needs based on ESRD on HD, wound 66.8kg abw 25-30 kcals/kg 7445-1546 total kcals 1.25-1.8 g protein/kg 84-120 g total protein fluid per MD, on HD NUTRITION DIAGNOSIS: Increased kcal and pro needs r/t renal dysfunction and wound healing as evidenced by pt w/ esrd on HD, sacral DTI. CURRENT DIET: Renal PO DIET RECOMMENDATIONS: RENAL/ LOW FAT DIET ADDITIONAL RECOMMENDATIONS: 1) Daily calibrated bed scale 2) Sacral DTI-> add NEPRO 1 tetra qdaily (20g pro) + Nephrovite 1 tab qdaily 3) Monitor for continued good po intake, pt c/o 'tummy pain' 4) Monitor for continued good glycemic control . .
--- NOTE | 2020-06-28 11:37 | Nephrology Progress Note ---
Assessment/Plan Problem List: (1) Cocaine abuse (2) ESRD (end stage renal disease) on dialysis (3) Substance abuse (4) Fluid overload (5) HIV disease (6) HCV antibody positive (7) Hypertensive urgency Assessment (1) ESRD (end stage renal disease) on dialysis (2) HIV disease (3) HCV antibody positive (4) Hypertensive urgency (5) Substance abuse (6) Noncompliance (7) Anemia of chronic kidney disease Plan June 28: Dialyzed yesterday. Next dialysis tomorrow. No labs drawn today. Continue per consultants. June 27: Patient due for dialysis today. Labs reviewed. Blood pressure medication adjusted. Continue per ID and other consultants. June 26: Patient was dialyzed and ultrafiltrate had yesterday. Today's labs reviewed. Will arrange for dialysis again tomorrow. Continue per PMD and consultants. Subjective ROS Limited/Unobtainable: No Constitutional: Reports: malaise Objective Objective Last 24 Hour Vital Signs Date Time Temp Pulse Resp B/P (MAP) Pulse Ox O2 Delivery O2 Flow Rate FiO2 06/28/20 09:35 Room Air 06/28/20 09:12 65 160/84 06/28/20 08:00 97.9 70 20 165/83 (110) 96 06/28/20 06:24 64 18 161/77 93 06/28/20 05:43 98.6 06/28/20 05:14 161/77 06/28/20 04:00 98.1 64 18 158/77 (104) 93 06/28/20 03:00 161/77 (105) 06/28/20 00:45 173/90 06/28/20 00:00 98.6 70 20 172/93 (119) 92 06/27/20 21:00 Room Air 06/27/20 20:00 99.5 73 18 151/74 (99) 93 06/27/20 16:56 71 20 169/77 97 06/27/20 16:26 71 20 169/77 97 06/27/20 16:00 75 06/27/20 16:00 97.6 77 20 149/75 (99) 100 06/27/20 15:50 97.7 06/27/20 14:38 169/77 06/27/20 12:15 169/77 06/27/20 12:00 97.7 71 20 169/77 (107) 97 06/27/20 12:00 71 Intake and Output 06/27/20 06/28/20 19:00 07:00 # Bowel Movements 1 No chemistry panel drawn today laboratory Tests 06/28/20 04:19: Random Vancomycin Level 15.9 Height (Feet): 5 Height (Inches): 4.00 Weight (Pounds): 165 General Appearance: no apparent distress Cardiovascular: normal rate Respiratory/Chest: decreased breath sounds Abdomen: soft Objective No change Jack Pryor MD Jun 28, 2020 11:37
--- NOTE | 2020-06-28 11:47 | Infectious Diseases Prog Note ---
Assessment/Plan Assessment/Plan antibiotics : vancomycin iv, zosyn, ARV A 1. cholecystitis 2. hypertension 3. HIV 4. renal failure on HD 5. cirrhosis 6. coag neg staph sepsis P 1. continue iv vancomycin, zosyn 2. will follow up cultures Subjective Constitutional: Denies: fever, chills Respiratory: Denies: shortness of breath, dry cough Gastrointestinal/Abdominal: Denies: nausea, vomiting, diarrhea Musculoskeletal: Reports: pain - in abdomen Allergies: Coded Allergies: ASPIRIN (Unverified Allergy, Unknown, 01/16/20) IODINE (Verified Allergy, Unknown, 01/07/20) Uncoded Allergies: CONTRAST DYE (Allergy, Unknown, 01/07/20) NSAID (Allergy, Unknown, 04/24/20) Objective Last 24 Hour Vital Signs Date Time Temp Pulse Resp B/P (MAP) Pulse Ox O2 Delivery O2 Flow Rate FiO2 06/28/20 09:35 Room Air 06/28/20 09:12 65 160/84 06/28/20 08:00 97.9 70 20 165/83 (110) 96 06/28/20 06:24 64 18 161/77 93 06/28/20 05:43 98.6 06/28/20 05:14 161/77 06/28/20 04:00 98.1 64 18 158/77 (104) 93 06/28/20 03:00 161/77 (105) 06/28/20 00:45 173/90 06/28/20 00:00 98.6 70 20 172/93 (119) 92 06/27/20 21:00 Room Air 06/27/20 20:00 99.5 73 18 151/74 (99) 93 06/27/20 16:56 71 20 169/77 97 06/27/20 16:26 71 20 169/77 97 06/27/20 16:00 75 06/27/20 16:00 97.6 77 20 149/75 (99) 100 06/27/20 15:50 97.7 06/27/20 14:38 169/77 06/27/20 12:15 169/77 06/27/20 12:00 97.7 71 20 169/77 (107) 97 06/27/20 12:00 71 Height (Feet): 5 Height (Inches): 4.00 Weight (Pounds): 165 Respiratory/Chest: lungs clear Cardiovascular: normal rate, regular rhythm, no gallop/murmur Abdomen: tender - on right upper quadrant Extremities: no edema Laboratory Tests Test 06/28/20 04:19 Random Vancomycin Level 15.9 ug/mL Current Medications Medications (Trade) Dose Ordered Sig/Rochelle Route PRN Reason Start Time Stop Time Status Last Admin Dose Admin Acetaminophen (Tylenol) 650 mg Q4H PRN ORAL Temp >100.5 06/25/20 20:45 07/25/20 20:44 06/25/20 20:53 Amlodipine Besylate (Norvasc) 10 mg DAILY ORAL 06/25/20 09:00 07/25/20 08:59 06/28/20 09:12 Bupropion HCl (Wellbutrin SR) 150 mg DAILY ORAL 06/25/20 09:00 07/25/20 08:59 06/28/20 09:13 Clonidine HCl (Catapres Tab) 0.1 mg Q4H PRN ORAL bp over 165 syst 06/25/20 10:15 09/23/20 10:14 06/28/20 00:45 Docusate Sodium (Colace) 100 mg BID ORAL 06/25/20 09:00 07/25/20 08:59 06/28/20 09:11 Escitalopram Oxalate (Lexapro) 10 mg DAILY ORAL 06/25/20 09:00 07/25/20 08:59 06/27/20 09:31 Heparin Sodium (Porcine) (Heparin 5000 units/ml) 5,000 units Q8HR SUBQ 06/25/20 09:30 08/09/20 09:29 06/28/20 05:22 Hydralazine HCl (Apresoline) 100 mg EVERY 8 HOURS ORAL 06/28/20 06:00 09/26/20 05:59 06/28/20 05:14 Hydromorphone HCl (Dilaudid) 2 mg Q4H PRN IVP Severe Pain (Pain Scale 7-10) 06/27/20 15:00 07/04/20 14:59 06/28/20 10:35 Hydroxyzine HCl (Atarax) 25 mg THREE TIMES A DAY PRN ORAL Itching 06/25/20 10:00 07/25/20 09:59 06/28/20 06:19 Levothyroxine Sodium (Synthroid) 75 mcg DAILY ORAL 06/25/20 09:00 07/25/20 08:59 06/28/20 09:11 Lorazepam (Ativan) 1 mg DAILY ORAL 06/25/20 09:00 07/02/20 08:59 06/28/20 06:24 Lorazepam (Ativan) 1 mg Q8H PRN ORAL For Anxiety 06/25/20 17:30 07/02/20 17:29 06/27/20 16:26 Ondansetron HCl (Zofran) 4 mg Q6H PRN IVP Nausea & Vomiting 06/25/20 14:00 07/25/20 13:59 06/28/20 06:19 Pantoprazole (Protonix) 40 mg BID ORAL 06/25/20 09:00 07/25/20 08:59 06/28/20 09:11 Patient Own Medication (Patient's Own Med) 1 ea BID ORAL 06/27/20 20:00 07/27/20 19:59 06/28/20 09:12 Patient Own Medication (Patient's Own Med) 1 ea BID ORAL 06/27/20 20:00 07/27/20 19:59 06/28/20 09:13 Patient Own Medication (Patient's Own Med) 1 ea DAILY ORAL 06/27/20 20:00 07/27/20 19:59 06/28/20 09:13 Piperacillin Sod/ Tazobactam Sod 2.25 gm/Dextrose 55 ml @ 110 mls/hr Q8HR IV 06/25/20 10:00 06/30/20 09:59 06/28/20 05:13 Sevelamer Carbonate (Renvela) 1,600 mg THREE TIMES A DAY ORAL 06/27/20 09:00 09/25/20 08:59 06/28/20 09:10 Trazodone HCl (Desyrel) 50 mg BID ORAL 06/25/20 09:00 07/25/20 08:59 06/25/20 17:11 Vancomycin HCl ([facility]anco pharmacy to dose) 1 ea DAILY PRN MISC Per rx protocol 06/27/20 11:15 07/27/20 11:14 Vancomycin HCl 500 mg/Dextrose 110 ml @ 110 mls/hr ONCE IVPB 06/28/20 12:00 06/28/20 14:30 Elvis Garibay MD Jun 28, 2020 11:47
[2020-06-28] MEDS ORDERED: Vancomycin 500mg/D5W 100ml IVPB SCH ×2 (12:00)
--- NOTE | 2020-06-28 15:21 | NUR ---
NURSE NOTES: [facility] Nephrology notified regarding DR Pryor order for patient to receive dialysis on 06/29/2020.Richard from [facility] will notify Dialysis Nurse.
--- NOTE | 2020-06-28 15:48 | NUR ---
CASE MANAGEMENT:REVIEW SI;ACUTE CHOLECYSTITIS. CIRRHOSIS. HIV. ESRD ON HD. 98.7 70 20 165/83 93% ON RA IS;VANCOMYCIN IV ONCE HYDRALAZINE PO Q8 DILAUDID IV Q4 PRN ZOSYN IV Q8 ATARAX PO TID PRN PROTONIX PO BID ATIVAN PO QD NORVASC PO QD MED SURG STATUS DCP;PATIENT IS FROM HOME PLAN; INPATIENT HD 06/29/20
--- NOTE | 2020-06-28 15:48 | NUR ---
HUMAN INSIGHTS LEAD ADS MARKETING NOTE SW met w/ pt to discuss substance abuse. Pt presents as A&O4x. Pt was last admitted to [facility] on 05/24/2020-06/12/2020. UDS positive for cocaine and opiates. Pt denies substance abuse, and declined to discuss further. This SW explained the toxic screen lab result. Pt stated "I don't want to talk about it. I am fine." SW was unable to gather substance abuse hx from pt. PT declined counseling/tx intervention on substance abuse. Pt also declined to receive substance abuse resource. SW encouraged pt to verbalize her needs/concerns. PT nodded.
--- NOTE | 2020-06-28 18:24 | Surgery Progress Note ---
Surgery Progress Note Subjective Symptoms: improved, tolerating diet, passing flatus, BM, pain decreased Objective Last 24 Hour Vital Signs Date Time Temp Pulse Resp B/P (MAP) Pulse Ox O2 Delivery O2 Flow Rate FiO2 06/28/20 13:52 139/71 06/28/20 12:00 98.7 68 20 141/84 (103) 94 06/28/20 09:35 Room Air 06/28/20 09:12 65 160/84 06/28/20 08:00 97.9 70 20 165/83 (110) 96 06/28/20 06:24 64 18 161/77 93 06/28/20 05:43 98.6 06/28/20 05:14 161/77 06/28/20 04:00 98.1 64 18 158/77 (104) 93 06/28/20 03:00 161/77 (105) 06/28/20 00:45 173/90 06/28/20 00:00 98.6 70 20 172/93 (119) 92 06/27/20 21:00 Room Air 06/27/20 20:00 99.5 73 18 151/74 (99) 93 I&O Intake and Output 06/27/20 06/28/20 19:00 07:00 # Bowel Movements 1 Cardiovascular: RSR Respiratory: clear Abdomen: soft, non-tender, present bowel sounds Extremities: no edema, no tenderness, no cyanosis Laboratory Tests Test 06/28/20 04:19 Random Vancomycin Level 15.9 ug/mL Plan Problems: (1) Cocaine abuse (2) Anxiety (3) Cirrhosis Assessment & Plan: ABDOMEN: Liver: Cirrhosis. Gallbladder and bile ducts: Possible acute cholecystitis with mildly distended gallbladder, pericholecystic fluid, gallstones, mild wall thickening. Correlate with presentation. No ductal dilation. Pancreas: Unremarkable. No ductal dilation. Spleen: Similar splenomegaly 14.9 cm AP dimension. Adrenals: Unremarkable. No mass. Kidneys and ureters: Multiple bilateral renal probably benign hypodensities measure up to 1.7 cm on the right. Partly calcified left inferior renal pole structure, potentially a peripherally calcified cyst. No hydronephrosis. Stomach and bowel: Colonic diverticulosis without acute diverticulitis. No obstruction. PELVIS: Appendix: No findings to suggest acute appendicitis. Bladder: Urinary bladder wall thickening. No stones. Reproductive: Indeterminate potentially multiloculated right adnexal intervally increased in size, now 6.6 x 4.7 right 4.9 cm cystic structure. ABDOMEN and PELVIS: Intraperitoneal space: Small nonloculated low-attenuation ascites. No free air. Bones/joints: No acute fracture. No dislocation. Soft tissues: Anasarca. Vasculature: Numerous upper abdominal varices. Potentially recanalized umbilical vein. No abdominal aortic aneurysm. Lymph nodes: Unremarkable. No enlarged lymph nodes. IMPRESSION: 1. Study limited due to lack of IV contrast. 2. Possible acute cholecystitis with mildly distended gallbladder, pericholecystic fluid, gallstones, mild wall thickening. Correlate with presentation. 3. Urinary bladder wall thickening could be incidental, due to high outlet pressures, or could represent cystitis. 4. Mosaic lung attenuation could represent small airways disease. 5. Small right low-attenuation layering pleural effusion with passive atelectasis. 6. Recommend pelvic MRI to further characterize right adnexal cystic structure; neoplasm not excluded. 7. Probably benign renal findings above, and follow-up in 6 months to document stability of calcified left inferior renal pole structure. 8. Cirrhosis, splenomegaly, small, ascites, upper abdominal varices, recanalized umbilical vein. 9. Colonic diverticulosis without acute diverticulitis. (4) Adnexal mass (5) Recurrent vulvovaginal herpes simplex (6) Hyperkalemia (7) Hypertension (8) Intractable abdominal pain (9) Sick sinus syndrome (10) Fluid overload (11) Substance abuse (12) Pruritus (13) Cholecystitis, acute Assessment & Plan: 69-year-old female with extensive medical history end-stage renal disease on dialysis noncompliant at times history of catheter infections history of cirrhosis presenting with acute cholecystitis. CT reviewed. Patient states that since admission her pain is improved and she is feeling little bit better. Labs are improving. Currently no nausea vomiting fever chills. Tolerating diet. Given patient's comorbidities liver disease cirrhosis will plan for medical management as she is already showing improvement with antibiotics and resuscitation. I do long discussion with the patient regards to her care plan history comorbidities and the morbidity mortality associated potentially with surgical intervention. A cholecystomy can be considered but if able to manage with medical management would be in patient's best interest given her comorbidities. This will allow her time to resuscitate improved optimized and considerations of surgery in the future elective if potential. Continue IV antibiotics per infectious disease Case discussed Continue with diet as tolerated Ultrasound ordered We will follow serial exams and recs thank you (14) Weakness (15) HIV disease (16) Epileptic seizure, generalized (17) Open wound of chest wall (18) CHF (congestive heart failure), NYHA class II (19) HCV antibody positive (20) ESRD (end stage renal disease) on dialysis (21) Hypertensive urgency Deon Crowe Jun 28, 2020 18:24
[2020-06-28] MEDS: LORazepam 1mg tab ORAL PRN (18:47)
--- NOTE | 2020-06-28 18:51 | NUR ---
NURSE NOTES: Patient requesting Ativan Ativan given as ordered. .Bed alarm on,call light within reach.
--- NOTE | 2020-06-28 19:30 | NUR ---
NURSE NOTES: RECEIVED PATIENT FROM MARTIN PRESLEY. PATIENT IS AWAKE, RESTING IN BED, AAOX4, ON ROOM AIR, NO ACUTE DISTRESS NOTED. PATIENT DENIES SOB, DENIES CHEST PAIN. C/O 5/10 ABDOMINAL PAIN BUT STATED THAT IS IT TOLERABLE AT THE MOMENT. PIV ON LEFT ARM 22G INTACT AND PATENT. WOUND DRESSING ON SACRAL INTACT AND DRY. FALL PRECAUTION AND SEIZURE PRECAUTION IN PLACE. BED IS LOCKED AND LOW, BED ALARMS ACTIVE, SIDE RAILS UPX2 AND PADDED, AND CALL LIGHT IS WITHIN REACH. WILL CONTINUE TO MONITOR.
--- NOTE | 2020-06-28 19:50 | NUR ---
NURSE HAND-OFF: ADELAIDE RN Important Events on Shift:[Dilaudid given for pain, Ativan given for anxiety] Patient Status: [stable] Diet: Renal[] Pending Orders: [] Pending Results/Labs:[06/29/2020] Pending MD notification:[] Latest Vital Signs: Temperature 98.3 , Pulse 70 , B/P 149 /76 , Respiratory Rate 18 , O2 SAT 96 , Room Air, O2 Flow Rate . Vital Sign Comment: [] Latest Espinoza Fall Score: 85 Fall Risk: High Risk Safety Measures: Call light Within Reach, Bed Alarm Zone 1, Side Rails Side Rails x2, Bed position Low and Locked. Fall Precautions: Yellow Socks Yellow Gown Door Sign Patient Fall Education Report given to [].
--- NOTE | 2020-06-28 22:49 | Cardiology Progress Note ---
Subjective DATE OF SERVICE: Jun 28, 2020 Abdominal pain improved; tolerating diet S/P HD/UF with corrected potassium levels yesterday. BP parameters suboptimal, but improving. +cocaine in tox screen again +blood cultures with gram pos cocci Monitor: sinus with episodes of SVT. Objective Last 24 Hour Vital Signs Date Time Temp Pulse Resp B/P (MAP) Pulse Ox O2 Delivery O2 Flow Rate FiO2 06/28/20 21:28 141/72 06/28/20 20:00 98.2 68 16 141/72 (95) 96 06/28/20 19:39 70 18 149/76 96 06/28/20 18:47 72 18 153/78 98 06/28/20 16:00 98.3 71 21 141/75 (97) 95 06/28/20 13:52 139/71 06/28/20 12:00 98.7 68 20 141/84 (103) 94 06/28/20 09:35 Room Air 06/28/20 09:12 65 160/84 06/28/20 08:00 97.9 70 20 165/83 (110) 96 06/28/20 06:24 64 18 161/77 93 06/28/20 05:43 98.6 06/28/20 05:14 161/77 06/28/20 04:00 98.1 64 18 158/77 (104) 93 06/28/20 03:00 161/77 (105) 06/28/20 00:45 173/90 06/28/20 00:00 98.6 70 20 172/93 (119) 92 ROS: unchanged from 06/25/20 HEENT: normal ENT inspection RHYTHM: NSR, PVCs, PACs LUNGS: lungs clear bilaterally, other - left chest subclavian PermVCath CARDIAC: normal rate, regular rhythm, normal S1 and S2 ABDOMEN: normal bowel sounds, non tender, soft, no organomegaly EXTREMITIES: normal range of motion, non-tender, No edema Laboratory Tests Test 06/28/20 04:19 Random Vancomycin Level 15.9 ug/mL Assessment/Plan Assessment/Plan ESRD Gram positive sepsis with bacteremia - possible line infection. 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
[2020-06-29] VITALS: BP 139/67
[2020-06-29 04:00] VITALS: BP 152/71
[2020-06-29] MEDS: HydrALAZINE 25mg tab ORAL SCH ×3 (05:45→21:19)
[2020-06-29] MEDS: Heparin 5000 units/ml inj SUBQ SCH ×3 (05:47→21:25)
[2020-06-29] MEDS: Piperacillin/Tazobactam 2.25 GM in D5W 55 ML IV SCH ×3 (05:48→21:17)
--- NOTE | 2020-06-29 07:38 | NUR ---
HAND-OFF: Report given to MARTIN Coyne.
[2020-06-29 08:00] VITALS: BP 141/76
--- NOTE | 2020-06-29 08:00 | NUR ---
NURSE NOTES: received pt in bed, in room air, in NAD. Breathing even, unlabored, no complaint of pain, complains of itchiness, will medicate as ordered PRN. Left hand gauge [address], saline locked, pervious. Left chest Port-A-cath in place for HD access. Call light within reach, side rails up x2, bed locked, in the lowest position possible. Awaiting for HD to be done today. Will continue monitoring pt and following up with the plan of care.
--- NOTE | 2020-06-29 08:10 | General Progress Note ---
Subjective ROS Limited/Unobtainable: No Constitutional: Reports: malaise, weakness HEENT: Reports: no symptoms Cardiovascular: Reports: no symptoms Respiratory: Reports: cough Gastrointestinal/Abdominal: Reports: abdominal pain Genitourinary: Reports: no symptoms Neurologic/Psychiatric: Reports: pre-existing deficit Endocrine: Reports: no symptoms Hematologic/Lymphatic: Reports: anemia Allergies: Coded Allergies: ASPIRIN (Unverified Allergy, Unknown, 01/16/20) IODINE (Verified Allergy, Unknown, 01/07/20) Uncoded Allergies: CONTRAST DYE (Allergy, Unknown, 01/07/20) NSAID (Allergy, Unknown, 04/24/20) All Systems: reviewed and negative except above Subjective no new complaints. same abd pain. taking pain meds atc. tolerating po. no vomiting. Objective Last 24 Hour Vital Signs Date Time Temp Pulse Resp B/P (MAP) Pulse Ox O2 Delivery O2 Flow Rate FiO2 06/29/20 05:45 152/71 06/29/20 04:00 98.3 72 16 152/71 (98) 93 06/29/20 00:00 97.7 69 16 139/67 (91) 95 06/28/20 21:28 141/72 06/28/20 21:00 Room Air 06/28/20 20:00 98.2 68 16 141/72 (95) 96 06/28/20 19:39 70 18 149/76 96 06/28/20 18:47 72 18 153/78 98 06/28/20 16:00 98.3 71 21 141/75 (97) 95 06/28/20 13:52 139/71 06/28/20 12:00 98.7 68 20 141/84 (103) 94 06/28/20 09:35 Room Air 06/28/20 09:12 65 160/84 Intake and Output 06/28/20 06/29/20 19:00 07:00 Intake Total 240 ml 100 ml Balance 240 ml 100 ml Intake Oral 240 ml Other 100 ml # Bowel Movements 1 Height (Feet): 5 Height (Inches): 4.00 Weight (Pounds): 165 Objective General Appearance: WD/WN, alert EENT: normal ENT inspection Neck: non-tender, normal alignment Cardiovascular: normal rate, regular rhythm Respiratory/Chest: chest wall non-tender, lungs clear, normal breath sounds, no respiratory distress Abdomen: normal bowel sounds, soft, no organomegaly, no mass, guarding, tender Edema: no edema noted Arm (L), no edema noted Arm (R) Neurologic: pleat patternmaker II-XII grossly normal, alert, oriented x 3, responsive Lymphatic: normal anterior cervical (L), normal anterior cervical (R) Assessment/Plan Problem List: (1) Cocaine abuse ICD Codes: F14.10 - Cocaine abuse, uncomplicated SNOMED: 87264981 (2) Cirrhosis ICD Codes: K74.60 - Unspecified cirrhosis of liver SNOMED: 90088887 Qualifiers: Qualified Codes: K74.60 - Unspecified cirrhosis of liver; R18.8 - Other ascites (3) Cholecystitis, acute ICD Codes: K81.0 - Acute cholecystitis SNOMED: 98476914 (4) HIV disease ICD Codes: B20 - Human immunodeficiency virus [HIV] disease SNOMED: 37855615 (5) Epileptic seizure, generalized ICD Codes: G40.309 - Generalized idiopathic epilepsy and epileptic syndromes, not intractable, without status epilepticus SNOMED: 10501307 (6) CHF (congestive heart failure), NYHA class II ICD Codes: I50.9 - Heart failure, unspecified SNOMED: 845645237, 653823086 (7) HCV antibody positive ICD Codes: R76.8 - Other specified abnormal immunological findings in serum SNOMED: 880858523 (8) ESRD (end stage renal disease) on dialysis ICD Codes: N18.6 - End stage renal disease; Z99.2 - Dependence on renal dialysis SNOMED: 893870893 (9) Hypertensive urgency ICD Codes: I16.0 - Hypertensive urgency SNOMED: 800828090 Status: stable Assessment/Plan: cont iv abx per id abd us noted surgery follow up follow up cultures pain rx dvt/stress ulcer prophylaxis d/w surgery- high risk. try to treat conservatively HD per renal prn anxiolytics Michael Peralta MD Jun 29, 2020 08:09
[2020-06-29] MEDS: LORazepam 1mg tab ORAL SCH (08:34)
[2020-06-29] MEDS: TraZODone 50mg tab ORAL SCH ×3 (08:35→17:08)
[2020-06-29] MEDS: Docusate 100mg cap ORAL SCH ×2 (08:35→17:08)
[2020-06-29] MEDS: BuPROPion SR 150mg tab ORAL SCH (08:36)
[2020-06-29] MEDS: HydrOXYzine tab 25mg tab ORAL PRN ×2 (08:36→16:39)
[2020-06-29] MEDS: Patient's Own Med - Ritonavir 100mg ORAL SCH ×2 (08:41→17:09)
[2020-06-29] MEDS: Patient's Own Med - Tivicay 50mg ORAL SCH (08:42)
[2020-06-29 08:53] LABS: BASOPHILS % (AUTO) 0.9 % (0.0-2.0); EOSINOPHILS % (AUTO) 6.5 % (0.0-3.0); HEMATOCRIT 29.8 % (37.0-47.0); HEMOGLOBIN 9.4 G/DL (12.0-16.0); LYMPHOCYTES % (AUTO) 13.6 % (20.0-45.0); MEAN CORPUSCULAR VOLUME 91 FL (80-99); MONOCYTES % (AUTO) 11.9 % (1.0-10.0); NEUTROPHILS % (AUTO) 67.1 % (45.0-75.0); PLATELET COUNT 133 K/UL (150-450); RED BLOOD COUNT 3.27 M/UL (4.20-5.40); RED CELL DISTRIBUTION WIDTH 16.7 % (11.6-14.8); WHITE BLOOD COUNT 3.6 K/UL (4.8-10.8)
[2020-06-29 09:28] LABS: ALANINE AMINOTRANSFERASE 8 U/L (12-78); ALBUMIN 3.1 G/DL (3.4-5.0); ALBUMIN/GLOBULIN RATIO 0.5 (1.0-2.7); ALKALINE PHOSPHATASE 60 U/L (46-116); ANION GAP 9 mmol/L (5-15); ASPARTATE AMINO TRANSFERASE 22 U/L (15-37); BILIRUBIN,TOTAL 0.4 MG/DL (0.2-1.0); BLOOD UREA NITROGEN 27 mg/dL (7-18); CALCIUM 7.8 MG/DL (8.5-10.1); CARBON DIOXIDE 27 MMOL/L (21-32); CHLORIDE 97 MMOL/L (98-107); CREATININE 8.1 MG/DL (0.55-1.30); PHOSPHORUS 6.3 MG/DL (2.5-4.9); SODIUM 133 MMOL/L (136-145)
--- NOTE | 2020-06-29 10:31 | Surgery Progress Note ---
Surgery Progress Note Subjective Symptoms: improved, pain absent, tolerating diet, passing flatus, BM Objective Last 24 Hour Vital Signs Date Time Temp Pulse Resp B/P (MAP) Pulse Ox O2 Delivery O2 Flow Rate FiO2 06/29/20 09:04 70 20 141/76 94 06/29/20 08:34 70 20 141/76 94 06/29/20 08:00 97.9 70 20 141/76 (97) 94 06/29/20 05:45 152/71 06/29/20 04:00 98.3 72 16 152/71 (98) 93 06/29/20 00:00 97.7 69 16 139/67 (91) 95 06/28/20 21:28 141/72 06/28/20 21:00 Room Air 06/28/20 20:00 98.2 68 16 141/72 (95) 96 06/28/20 19:39 70 18 149/76 96 06/28/20 18:47 72 18 153/78 98 06/28/20 16:00 98.3 71 21 141/75 (97) 95 06/28/20 13:52 139/71 06/28/20 12:00 98.7 68 20 141/84 (103) 94 I&O Intake and Output 06/28/20 06/29/20 19:00 07:00 Intake Total 240 ml 100 ml Balance 240 ml 100 ml Intake Oral 240 ml Other 100 ml # Bowel Movements 1 Cardiovascular: RSR Respiratory: clear Abdomen: soft, flat, non-tender, present bowel sounds, non-distended Extremities: no edema, no tenderness, no cyanosis Laboratory Tests Test 06/29/20 08:30 White Blood Count 3.6 K/UL (4.8-10.8) L Red Blood Count 3.27 M/UL (4.20-5.40) L Hemoglobin 9.4 G/DL (12.0-16.0) L Hematocrit 29.8 % (37.0-47.0) L Mean Corpuscular Volume 91 FL (80-99) Mean Corpuscular Hemoglobin 28.8 PG (27.0-31.0) Mean Corpuscular Hemoglobin Concent 31.5 G/DL (32.0-36.0) L Red Cell Distribution Width 16.7 % (11.6-14.8) H Platelet Count 133 K/UL (150-450) L Mean Platelet Volume 6.4 FL (6.5-10.1) L Neutrophils (%) (Auto) 67.1 % (45.0-75.0) Lymphocytes (%) (Auto) 13.6 % (20.0-45.0) L Monocytes (%) (Auto) 11.9 % (1.0-10.0) H Eosinophils (%) (Auto) 6.5 % (0.0-3.0) H Basophils (%) (Auto) 0.9 % (0.0-2.0) Sodium Level 133 MMOL/L (136-145) L Potassium Level 4.0 MMOL/L (3.5-5.1) Chloride Level 97 MMOL/L (98-107) L Carbon Dioxide Level 27 MMOL/L (21-32) Anion Gap 9 mmol/L (5-15) Blood Urea Nitrogen 27 mg/dL (7-18) H Creatinine 8.1 MG/DL (0.55-1.30) H Estimat Glomerular Filtration Rate 6.1 mL/min (>60) Glucose Level 93 MG/DL (74-106) Calcium Level 7.8 MG/DL (8.5-10.1) L Phosphorus Level 6.3 MG/DL (2.5-4.9) H Total Bilirubin 0.4 MG/DL (0.2-1.0) Aspartate Amino Transf (AST/SGOT) 22 U/L (15-37) Alanine Aminotransferase (ALT/SGPT) 8 U/L (12-78) L Alkaline Phosphatase 60 U/L (46-116) C-Reactive Protein, Quantitative 0.6 mg/dL (0.00-0.90) Pro-B-Type Natriuretic Peptide > 29516 pg/mL (0-125) H Total Protein 9.5 G/DL (6.4-8.2) H Albumin 3.1 G/DL (3.4-5.0) L Globulin 6.4 g/dL Albumin/Globulin Ratio 0.5 (1.0-2.7) L Plan Problems: (1) Cocaine abuse (2) Anxiety (3) Cirrhosis Assessment & Plan: ABDOMEN: Liver: Cirrhosis. Gallbladder and bile ducts: Possible acute cholecystitis with mildly distended gallbladder, pericholecystic fluid, gallstones, mild wall thickening. Correlate with presentation. No ductal dilation. Pancreas: Unremarkable. No ductal dilation. Spleen: Similar splenomegaly 14.9 cm AP dimension. Adrenals: Unremarkable. No mass. Kidneys and ureters: Multiple bilateral renal probably benign hypodensities measure up to 1.7 cm on the right. Partly calcified left inferior renal pole structure, potentially a peripherally calcified cyst. No hydronephrosis. Stomach and bowel: Colonic diverticulosis without acute diverticulitis. No obstruction. PELVIS: Appendix: No findings to suggest acute appendicitis. Bladder: Urinary bladder wall thickening. No stones. Reproductive: Indeterminate potentially multiloculated right adnexal intervally increased in size, now 6.6 x 4.7 right 4.9 cm cystic structure. ABDOMEN and PELVIS: Intraperitoneal space: Small nonloculated low-attenuation ascites. No free air. Bones/joints: No acute fracture. No dislocation. Soft tissues: Anasarca. Vasculature: Numerous upper abdominal varices. Potentially recanalized umbilical vein. No abdominal aortic aneurysm. Lymph nodes: Unremarkable. No enlarged lymph nodes. IMPRESSION: 1. Study limited due to lack of IV contrast. 2. Possible acute cholecystitis with mildly distended gallbladder, pericholecystic fluid, gallstones, mild wall thickening. Correlate with presentation. 3. Urinary bladder wall thickening could be incidental, due to high outlet pressures, or could represent cystitis. 4. Mosaic lung attenuation could represent small airways disease. 5. Small right low-attenuation layering pleural effusion with passive atelectasis. 6. Recommend pelvic MRI to further characterize right adnexal cystic structure; neoplasm not excluded. 7. Probably benign renal findings above, and follow-up in 6 months to document stability of calcified left inferior renal pole structure. 8. Cirrhosis, splenomegaly, small, ascites, upper abdominal varices, recanalized umbilical vein. 9. Colonic diverticulosis without acute diverticulitis. (4) Adnexal mass (5) Recurrent vulvovaginal herpes simplex (6) Hyperkalemia (7) Hypertension (8) Intractable abdominal pain (9) Sick sinus syndrome (10) Fluid overload (11) Substance abuse (12) Pruritus (13) Cholecystitis, acute Assessment & Plan: 69-year-old female with extensive medical history end-stage renal disease on dialysis noncompliant at times history of catheter infections history of cirrhosis presenting with acute cholecystitis. CT reviewed. Patient states that since admission her pain is improved and she is feeling little bit better. Labs are improving. Currently no nausea vomiting fever chills. Tolerating diet. Given patient's comorbidities liver disease cirrhosis will plan for medical management as she is already showing improvement with antibiotics and resuscitation. I do long discussion with the patient regards to her care plan history comorbidities and the morbidity mortality associated potentially with surgical intervention. A cholecystomy can be considered but if able to manage with medical management would be in patient's best interest given her comorbidities. This will allow her time to resuscitate improved optimized and considerations of surgery in the future elective if potential. Continue IV antibiotics per infectious disease Case discussed Continue with diet as tolerated Ultrasound ordered We will follow serial exams and recs thank you improving medical management of acute silvano responsive okay for diet cont abx (14) Weakness (15) HIV disease (16) Epileptic seizure, generalized (17) Open wound of chest wall (18) CHF (congestive heart failure), NYHA class II (19) HCV antibody positive (20) ESRD (end stage renal disease) on dialysis (21) Hypertensive urgency Deon Crowe Jun 29, 2020 10:31
--- NOTE | 2020-06-29 10:46 | Nephrology Progress Note ---
Assessment/Plan Problem List: (1) Cocaine abuse (2) ESRD (end stage renal disease) on dialysis (3) Substance abuse (4) Fluid overload (5) HIV disease (6) HCV antibody positive (7) Hypertensive urgency Assessment (1) ESRD (end stage renal disease) on dialysis (2) HIV disease (3) HCV antibody positive (4) Hypertensive urgency (5) Substance abuse (6) Noncompliance (7) Anemia of chronic kidney disease Plan June 29: Status quo. Labs reviewed. Due for dialysis. Continue as is. June 28: Dialyzed yesterday. Next dialysis tomorrow. No labs drawn today. Continue per consultants. June 27: Patient due for dialysis today. Labs reviewed. Blood pressure medication adjusted. Continue per ID and other consultants. June 26: Patient was dialyzed and ultrafiltrate had yesterday. Today's labs reviewed. Will arrange for dialysis again tomorrow. Continue per PMD and consultants. Subjective ROS Limited/Unobtainable: No Constitutional: Reports: malaise Objective Objective Last 24 Hour Vital Signs Date Time Temp Pulse Resp B/P (MAP) Pulse Ox O2 Delivery O2 Flow Rate FiO2 06/29/20 09:04 70 20 141/76 94 06/29/20 09:00 Room Air 06/29/20 08:34 70 20 141/76 94 06/29/20 08:00 97.9 70 20 141/76 (97) 94 06/29/20 05:45 152/71 06/29/20 04:00 98.3 72 16 152/71 (98) 93 06/29/20 00:00 97.7 69 16 139/67 (91) 95 06/28/20 21:28 141/72 06/28/20 21:00 Room Air 06/28/20 20:00 98.2 68 16 141/72 (95) 96 06/28/20 19:39 70 18 149/76 96 06/28/20 18:47 72 18 153/78 98 06/28/20 16:00 98.3 71 21 141/75 (97) 95 06/28/20 13:52 139/71 06/28/20 12:00 98.7 68 20 141/84 (103) 94 Intake and Output 06/28/20 06/29/20 19:00 07:00 Intake Total 240 ml 100 ml Balance 240 ml 100 ml Intake Oral 240 ml Other 100 ml # Bowel Movements 1 Current Medications Medications (Trade) Dose Ordered Sig/Rochelle Route PRN Reason Start Time Stop Time Status Last Admin Dose Admin Acetaminophen (Tylenol) 650 mg Q4H PRN ORAL Temp >100.5 06/25/20 20:45 07/25/20 20:44 06/25/20 20:53 Amlodipine Besylate (Norvasc) 10 mg DAILY ORAL 06/25/20 09:00 07/25/20 08:59 06/28/20 09:12 Bupropion HCl (Wellbutrin SR) 150 mg DAILY ORAL 06/25/20 09:00 07/25/20 08:59 06/29/20 08:36 Clonidine HCl (Catapres Tab) 0.1 mg Q4H PRN ORAL bp over 165 syst 06/25/20 10:15 09/23/20 10:14 06/28/20 00:45 Docusate Sodium (Colace) 100 mg BID ORAL 06/25/20 09:00 07/25/20 08:59 06/29/20 08:35 Escitalopram Oxalate (Lexapro) 10 mg DAILY ORAL 06/25/20 09:00 07/25/20 08:59 06/29/20 08:36 Heparin Sodium (Porcine) (Heparin 5000 units/ml) 5,000 units Q8HR SUBQ 06/25/20 09:30 08/09/20 09:29 06/29/20 05:47 Hydralazine HCl (Apresoline) 100 mg EVERY 8 HOURS ORAL 06/28/20 06:00 09/26/20 05:59 06/29/20 05:45 Hydromorphone HCl (Dilaudid) 2 mg Q4H PRN IVP Severe Pain (Pain Scale 7-10) 06/27/20 15:00 07/04/20 14:59 06/29/20 05:47 Hydroxyzine HCl (Atarax) 25 mg THREE TIMES A DAY PRN ORAL Itching 06/25/20 10:00 07/25/20 09:59 06/29/20 08:36 Levothyroxine Sodium (Synthroid) 100 mcg DAILY ORAL 06/29/20 09:00 07/25/20 08:59 06/29/20 08:35 Lorazepam (Ativan) 1 mg DAILY ORAL 06/25/20 09:00 07/02/20 08:59 06/29/20 08:34 Lorazepam (Ativan) 1 mg Q8H PRN ORAL For Anxiety 06/25/20 17:30 07/02/20 17:29 06/28/20 18:47 Ondansetron HCl (Zofran) 4 mg Q6H PRN IVP Nausea & Vomiting 06/25/20 14:00 07/25/20 13:59 06/29/20 09:04 Pantoprazole (Protonix) 40 mg BID ORAL 06/25/20 09:00 07/25/20 08:59 06/29/20 08:36 Patient Own Medication (Patient's Own Med) 1 ea BID ORAL 06/27/20 20:00 07/27/20 19:59 06/29/20 08:41 Patient Own Medication (Patient's Own Med) 1 ea BID ORAL 06/27/20 20:00 07/27/20 19:59 06/29/20 08:42 Patient Own Medication (Patient's Own Med) 1 ea DAILY ORAL 06/27/20 20:00 07/27/20 19:59 06/29/20 08:42 Piperacillin Sod/ Tazobactam Sod 2.25 gm/Dextrose 55 ml @ 110 mls/hr Q8HR IV 06/25/20 10:00 06/30/20 09:59 06/29/20 05:48 Sevelamer Carbonate (Renvela) 1,600 mg THREE TIMES A DAY ORAL 06/27/20 09:00 09/25/20 08:59 06/29/20 08:34 Trazodone HCl (Desyrel) 50 mg BID ORAL 06/25/20 09:00 07/25/20 08:59 06/25/20 17:11 Vancomycin HCl (Vanco pharmacy to dose) 1 ea DAILY PRN MISC Per rx protocol 06/27/20 11:15 07/27/20 11:14 Laboratory Tests 06/29/20 08:30: White Blood Count 3.6L, Red Blood Count 3.27L, Hemoglobin 9.4L, Hematocrit 29.8L , Mean Corpuscular Volume 91, Mean Corpuscular Hemoglobin 28.8, Mean Corpuscular Hemoglobin Concent 31.5L, Red Cell Distribution Width 16.7H, Platelet Count 133L , Mean Platelet Volume 6.4L, Neutrophils (%) (Auto) 67.1, Lymphocytes (%) (Auto) 13.6L, Monocytes (%) (Auto) 11.9H, Eosinophils (%) (Auto) 6.5H, Basophils (%) (Auto) 0.9, Sodium Level 133L, Potassium Level 4.0, Chloride Level 97L, Carbon Dioxide Level 27, Anion Gap 9, Blood Urea Nitrogen 27H, Creatinine 8.1H, Estimat Glomerular Filtration Rate 6.1, Glucose Level 93, Calcium Level 7.8L, Phosphorus Level 6.3H, Total Bilirubin 0.4, Aspartate Amino Transf (AST/SGOT) 22, Alanine Aminotransferase (ALT/SGPT) 8L, Alkaline Phosphatase 60, C-Reactive Protein, Quantitative 0.6, Pro-B-Type Natriuretic Peptide > 31908H, Total Protein 9.5H, Albumin 3.1L, Globulin 6.4, Albumin/Globulin Ratio 0.5L Height (Feet): 5 Height (Inches): 4.00 Weight (Pounds): 165 General Appearance: no apparent distress, lethargic Cardiovascular: normal rate Respiratory/Chest: lungs clear Abdomen: soft Objective No change Jack Pryor MD Jun 29, 2020 10:46
--- NOTE | 2020-06-29 11:00 | NUR ---
CHARGE NURSE NOTE: HD order for today. Spoke with [facility] nurse, she said that has been notified that it will be done tomorrow. Spoke with , he is ok with that.
[2020-06-29 12:00] VITALS: BP 152/82
--- NOTE | 2020-06-29 15:36 | Infectious Diseases Prog Note ---
Assessment/Plan Assessment/Plan A 1. Acute cholecystitis 2. Hypertension 3. HIV 4. End stage renal failure on HD 5. Cirrhosis 6. coag neg staph sepsis P 1. continue iv vancomycin & Zosyn 2. will follow up cultures Subjective ROS Limited/Unobtainable: No Constitutional: Reports: no symptoms Respiratory: Reports: no symptoms Gastrointestinal/Abdominal: Reports: no symptoms Genitourinary: Reports: no symptoms Musculoskeletal: Reports: pain, other - back Allergies: Coded Allergies: ASPIRIN (Unverified Allergy, Unknown, 01/16/20) IODINE (Verified Allergy, Unknown, 01/07/20) Uncoded Allergies: CONTRAST DYE (Allergy, Unknown, 01/07/20) NSAID (Allergy, Unknown, 04/24/20) Objective Last 24 Hour Vital Signs Date Time Temp Pulse Resp B/P (MAP) Pulse Ox O2 Delivery O2 Flow Rate FiO2 06/29/20 14:37 97.9 06/29/20 13:07 152/82 06/29/20 12:03 77 152/82 06/29/20 12:00 97.9 77 20 152/82 (105) 93 06/29/20 09:04 70 20 141/76 94 06/29/20 09:00 Room Air 06/29/20 08:34 70 20 141/76 94 06/29/20 08:00 97.9 70 20 141/76 (97) 94 06/29/20 05:45 152/71 06/29/20 04:00 98.3 72 16 152/71 (98) 93 06/29/20 00:00 97.7 69 16 139/67 (91) 95 06/28/20 21:28 141/72 06/28/20 21:00 Room Air 06/28/20 20:00 98.2 68 16 141/72 (95) 96 06/28/20 19:39 70 18 149/76 96 06/28/20 18:47 72 18 153/78 98 06/28/20 16:00 98.3 71 21 141/75 (97) 95 Height (Feet): 5 Height (Inches): 4.00 Weight (Pounds): 165 General Appearance: no acute distress HEENT: mucous membranes moist Respiratory/Chest: lungs clear Cardiovascular: normal rate, other - left Permacath Abdomen: soft, non tender Extremities: no edema Neurologic/Psychiatric: alert, oriented x 3, responsive Laboratory Tests Test 06/29/20 08:30 White Blood Count 3.6 K/UL (4.8-10.8) L Red Blood Count 3.27 M/UL (4.20-5.40) L Hemoglobin 9.4 G/DL (12.0-16.0) L Hematocrit 29.8 % (37.0-47.0) L Mean Corpuscular Volume 91 FL (80-99) Mean Corpuscular Hemoglobin 28.8 PG (27.0-31.0) Mean Corpuscular Hemoglobin Concent 31.5 G/DL (32.0-36.0) L Red Cell Distribution Width 16.7 % (11.6-14.8) H Platelet Count 133 K/UL (150-450) L Mean Platelet Volume 6.4 FL (6.5-10.1) L Neutrophils (%) (Auto) 67.1 % (45.0-75.0) Lymphocytes (%) (Auto) 13.6 % (20.0-45.0) L Monocytes (%) (Auto) 11.9 % (1.0-10.0) H Eosinophils (%) (Auto) 6.5 % (0.0-3.0) H Basophils (%) (Auto) 0.9 % (0.0-2.0) Sodium Level 133 MMOL/L (136-145) L Potassium Level 4.0 MMOL/L (3.5-5.1) Chloride Level 97 MMOL/L (98-107) L Carbon Dioxide Level 27 MMOL/L (21-32) Anion Gap 9 mmol/L (5-15) Blood Urea Nitrogen 27 mg/dL (7-18) H Creatinine 8.1 MG/DL (0.55-1.30) H Estimat Glomerular Filtration Rate 6.1 mL/min (>60) Glucose Level 93 MG/DL (74-106) Calcium Level 7.8 MG/DL (8.5-10.1) L Phosphorus Level 6.3 MG/DL (2.5-4.9) H Total Bilirubin 0.4 MG/DL (0.2-1.0) Aspartate Amino Transf (AST/SGOT) 22 U/L (15-37) Alanine Aminotransferase (ALT/SGPT) 8 U/L (12-78) L Alkaline Phosphatase 60 U/L (46-116) C-Reactive Protein, Quantitative 0.6 mg/dL (0.00-0.90) Pro-B-Type Natriuretic Peptide > 15285 pg/mL (0-125) H Total Protein 9.5 G/DL (6.4-8.2) H Albumin 3.1 G/DL (3.4-5.0) L Globulin 6.4 g/dL Albumin/Globulin Ratio 0.5 (1.0-2.7) L Current Medications Medications (Trade) Dose Ordered Sig/Rochelle Route PRN Reason Start Time Stop Time Status Last Admin Dose Admin Acetaminophen (Tylenol) 650 mg Q4H PRN ORAL Temp >100.5 06/25/20 20:45 07/25/20 20:44 06/25/20 20:53 Amlodipine Besylate (Norvasc) 10 mg DAILY ORAL 06/25/20 09:00 07/25/20 08:59 06/29/20 12:03 Bupropion HCl (Wellbutrin SR) 150 mg DAILY ORAL 06/25/20 09:00 07/25/20 08:59 06/29/20 08:36 Clonidine HCl (Catapres Tab) 0.1 mg Q4H PRN ORAL bp over 165 syst 06/25/20 10:15 09/23/20 10:14 06/28/20 00:45 Docusate Sodium (Colace) 100 mg BID ORAL 06/25/20 09:00 07/25/20 08:59 06/29/20 08:35 Escitalopram Oxalate (Lexapro) 10 mg DAILY ORAL 06/25/20 09:00 07/25/20 08:59 06/29/20 08:36 Heparin Sodium (Porcine) (Heparin 5000 units/ml) 5,000 units Q8HR SUBQ 06/25/20 09:30 08/09/20 09:29 06/29/20 13:09 Hydralazine HCl (Apresoline) 100 mg EVERY 8 HOURS ORAL 06/28/20 06:00 09/26/20 05:59 06/29/20 13:07 Hydromorphone HCl (Dilaudid) 2 mg Q4H PRN IVP Severe Pain (Pain Scale 7-10) 06/27/20 15:00 07/04/20 14:59 06/29/20 14:07 Hydroxyzine HCl (Atarax) 25 mg THREE TIMES A DAY PRN ORAL Itching 06/25/20 10:00 07/25/20 09:59 06/29/20 08:36 Levothyroxine Sodium (Synthroid) 100 mcg DAILY ORAL 06/29/20 09:00 07/25/20 08:59 06/29/20 08:35 Lorazepam (Ativan) 1 mg DAILY ORAL 06/25/20 09:00 07/02/20 08:59 06/29/20 08:34 Lorazepam (Ativan) 1 mg Q8H PRN ORAL For Anxiety 06/25/20 17:30 07/02/20 17:29 06/28/20 18:47 Ondansetron HCl (Zofran) 4 mg Q6H PRN IVP Nausea & Vomiting 06/25/20 14:00 07/25/20 13:59 06/29/20 09:04 Pantoprazole (Protonix) 40 mg BID ORAL 06/25/20 09:00 07/25/20 08:59 06/29/20 08:36 Patient Own Medication (Patient's Own Med) 1 ea BID ORAL 06/27/20 20:00 07/27/20 19:59 06/29/20 08:41 Patient Own Medication (Patient's Own Med) 1 ea BID ORAL 06/27/20 20:00 07/27/20 19:59 06/29/20 08:42 Patient Own Medication (Patient's Own Med) 1 ea DAILY ORAL 06/27/20 20:00 07/27/20 19:59 06/29/20 08:42 Piperacillin Sod/ Tazobactam Sod 2.25 gm/Dextrose 55 ml @ 110 mls/hr Q8HR IV 06/25/20 10:00 06/30/20 09:59 06/29/20 13:07 Sevelamer Carbonate (Renvela) 1,600 mg THREE TIMES A DAY ORAL 06/27/20 09:00 09/25/20 08:59 06/29/20 12:05 Trazodone HCl (Desyrel) 50 mg BID ORAL 06/25/20 09:00 07/25/20 08:59 06/25/20 17:11 Vancomycin HCl (Vanco pharmacy to dose) 1 ea DAILY PRN MISC Per rx protocol 06/27/20 11:15 07/27/20 11:14 Armando Brown MD Jun 29, 2020 15:35
[2020-06-29 16:00] VITALS: BP 136/74
[2020-06-29] MEDS: LORazepam 1mg tab ORAL PRN (16:39)
--- NOTE | 2020-06-29 17:08 | Cardiology Progress Note ---
Subjective DATE OF SERVICE: Jun 29, 2020 Abdominal pain improving; tolerating diet BP parameters labile at times, but improving. +cocaine in tox screen on admit. +blood cultures with coag neg staph. Monitor: sinus with episodes of SVT. Objective Last 24 Hour Vital Signs Date Time Temp Pulse Resp B/P (MAP) Pulse Ox O2 Delivery O2 Flow Rate FiO2 06/29/20 16:39 76 20 136/74 94 06/29/20 16:00 97.7 76 20 136/74 (94) 94 06/29/20 14:37 97.9 06/29/20 13:07 152/82 06/29/20 12:03 77 152/82 06/29/20 12:00 97.9 77 20 152/82 (105) 93 06/29/20 09:04 70 20 141/76 94 06/29/20 09:00 Room Air 06/29/20 08:34 70 20 141/76 94 06/29/20 08:00 97.9 70 20 141/76 (97) 94 06/29/20 05:45 152/71 06/29/20 04:00 98.3 72 16 152/71 (98) 93 06/29/20 00:00 97.7 69 16 139/67 (91) 95 06/28/20 21:28 141/72 06/28/20 21:00 Room Air 06/28/20 20:00 98.2 68 16 141/72 (95) 96 06/28/20 19:39 70 18 149/76 96 06/28/20 18:47 72 18 153/78 98 ROS: unchanged from 06/25/20 HEENT: normal ENT inspection RHYTHM: NSR, PVCs, PACs LUNGS: lungs clear bilaterally, other - left chest subclavian PermVCath CARDIAC: normal rate, regular rhythm, normal S1 and S2 ABDOMEN: normal bowel sounds, non tender, soft, no organomegaly EXTREMITIES: normal range of motion, non-tender, No edema Laboratory Tests Test 06/29/20 08:30 White Blood Count 3.6 K/UL (4.8-10.8) L Red Blood Count 3.27 M/UL (4.20-5.40) L Hemoglobin 9.4 G/DL (12.0-16.0) L Hematocrit 29.8 % (37.0-47.0) L Mean Corpuscular Volume 91 FL (80-99) Mean Corpuscular Hemoglobin 28.8 PG (27.0-31.0) Mean Corpuscular Hemoglobin Concent 31.5 G/DL (32.0-36.0) L Red Cell Distribution Width 16.7 % (11.6-14.8) H Platelet Count 133 K/UL (150-450) L Mean Platelet Volume 6.4 FL (6.5-10.1) L Neutrophils (%) (Auto) 67.1 % (45.0-75.0) Lymphocytes (%) (Auto) 13.6 % (20.0-45.0) L Monocytes (%) (Auto) 11.9 % (1.0-10.0) H Eosinophils (%) (Auto) 6.5 % (0.0-3.0) H Basophils (%) (Auto) 0.9 % (0.0-2.0) Sodium Level 133 MMOL/L (136-145) L Potassium Level 4.0 MMOL/L (3.5-5.1) Chloride Level 97 MMOL/L (98-107) L Carbon Dioxide Level 27 MMOL/L (21-32) Anion Gap 9 mmol/L (5-15) Blood Urea Nitrogen 27 mg/dL (7-18) H Creatinine 8.1 MG/DL (0.55-1.30) H Estimat Glomerular Filtration Rate 6.1 mL/min (>60) Glucose Level 93 MG/DL (74-106) Calcium Level 7.8 MG/DL (8.5-10.1) L Phosphorus Level 6.3 MG/DL (2.5-4.9) H Total Bilirubin 0.4 MG/DL (0.2-1.0) Aspartate Amino Transf (AST/SGOT) 22 U/L (15-37) Alanine Aminotransferase (ALT/SGPT) 8 U/L (12-78) L Alkaline Phosphatase 60 U/L (46-116) C-Reactive Protein, Quantitative 0.6 mg/dL (0.00-0.90) Pro-B-Type Natriuretic Peptide > 82759 pg/mL (0-125) H Total Protein 9.5 G/DL (6.4-8.2) H Albumin 3.1 G/DL (3.4-5.0) L Globulin 6.4 g/dL Albumin/Globulin Ratio 0.5 (1.0-2.7) L Assessment/Plan Assessment/Plan ESRD Gram positive sepsis with bacteremia - possible line infection. Hyperkalemia corrected Abdominal pain; not likely acute cholecystitis based on diagnostic studies Hypertension/HHD Ac/chr diastolic CHF Tachy-alysa syndrome Paroxysmal SVT Cocaine abuse HIV+ Hep C+ HD/UF today Advance antiHTN meds as needed Avoid BBlockers and clonidine due to potential for bradyarrhythmias Hospice Art Therapist again regarding risk of SCD with cocaine Abx per ID May need to change catheter again Nam Barnett MD Jun 29, 2020 17:08
--- NOTE | 2020-06-29 18:50 | NUR ---
NURSE NOTES: Upon pt being cleaned by SABIHA Parrish, it was discovered small areas of excoriation at sacral, intergluteal cleft and left buttock. Patient said it's due her scratching the area as she feels very itchy. Documented. Cleansed with NS, pat dried, applied triad and placed Optifoam.
--- NOTE | 2020-06-29 19:02 | NUR ---
NURSE HAND-OFF: Important Events on Shift:[postponed HD for tomorrow; discovered areas excoriation sacral, intergluteal cleft and left buttock due to pt scratching self] Patient Status: [stable] Diet: [Renal] Pending Orders: [cbc, cmp] Pending Results/Labs:[] Pending MD notification:[] Latest Vital Signs: Temperature 97.7 , Pulse 76 , B/P 136 /74 , Respiratory Rate 20 , O2 SAT 94 , Room Air, O2 Flow Rate . Vital Sign Comment: [] Latest Espinoza Fall Score: 85 Fall Risk: High Risk Safety Measures: Call light Within Reach, Bed Alarm Zone 1, Side Rails Side Rails x2, Bed position Low and Locked. Fall Precautions: Yellow Socks Yellow Gown Door Sign Patient Fall Education Report given to [MARTIN Kaufman].
--- NOTE | 2020-06-29 19:39 | NUR ---
NURSE NOTES: Patient in bed, awake and alert x4. On room air with no signs of distress or SOB. Left chest HD access noted. IV intact and patent. Bed locked and in lowest position. Call light in reach. Will continue plan of care.
[2020-06-29 20:00] VITALS: BP 140/70
[2020-06-30] VITALS: BP 148/72
[2020-06-30] MEDS: LORazepam 1mg tab ORAL PRN ×2 (03:26→18:23)
[2020-06-30 04:00] VITALS: BP 152/78
[2020-06-30 05:31] LABS: HEMATOCRIT 27.2 % (37.0-47.0); MEAN CORPUSCULAR VOLUME 87 FL (80-99); PLATELET COUNT 122 K/UL (150-450); RED BLOOD COUNT 3.11 M/UL (4.20-5.40); RED CELL DISTRIBUTION WIDTH 17.4 % (11.6-14.8); WHITE BLOOD COUNT 3.4 K/UL (4.8-10.8)
[2020-06-30 05:48] LABS: ALANINE AMINOTRANSFERASE < 6 U/L (12-78); ALBUMIN 2.8 G/DL (3.4-5.0); ALBUMIN/GLOBULIN RATIO 0.4 (1.0-2.7); ALKALINE PHOSPHATASE 62 U/L (46-116); ANION GAP 11 mmol/L (5-15); ASPARTATE AMINO TRANSFERASE 16 U/L (15-37); BILIRUBIN,TOTAL 0.4 MG/DL (0.2-1.0); BLOOD UREA NITROGEN 34 mg/dL (7-18); CALCIUM 7.8 MG/DL (8.5-10.1); CARBON DIOXIDE 28 MMOL/L (21-32); CHLORIDE 98 MMOL/L (98-107); CREATININE 9.3 MG/DL (0.55-1.30); POTASSIUM 4.2 MMOL/L (3.5-5.1); SODIUM 136 MMOL/L (136-145)
[2020-06-30] MEDS: Piperacillin/Tazobactam 2.25 GM in D5W 55 ML IV SCH ×3 (05:55→21:08)
[2020-06-30] MEDS: HydrOXYzine tab 25mg tab ORAL PRN ×2 (05:56→18:23)
[2020-06-30] MEDS: HydrALAZINE 25mg tab ORAL SCH ×3 (05:56→21:08)
[2020-06-30] MEDS: Heparin 5000 units/ml inj SUBQ SCH ×3 (06:04→21:09)
--- NOTE | 2020-06-30 06:30 | NUR ---
NURSE HAND-OFF: Important Events on Shift: No events Patient Status: Stable Diet: Renal Pending Orders: Hemodialysis with [facility] for today 06/30 Pending Results/Labs: CBC, CMP Pending MD notification: N/A Latest Vital Signs: Temperature 98.4 , Pulse 96 , B/P 152 /78 , Respiratory Rate 18 , O2 SAT 93 , Room Air, O2 Flow Rate . Vital Sign Comment: N/A Latest Espinoza Fall Score: 85 Fall Risk: High Risk Safety Measures: Call light Within Reach, Bed Alarm Zone 1, Side Rails Side Rails x2, Bed position Low and Locked. Fall Precautions: Yellow Socks Yellow Gown Door Sign Patient Fall Education Addendum: 06/30/20 at 0732 by VINCENT GOODEN RN Report given to MARTIN Sandoval
--- NOTE | 2020-06-30 07:38 | NUR ---
NURSE NOTES: Received report from MARTIN Oconnell. Received pt in bed, in room air, in NAD. Breathing even, unlabored, no complaint of pain, complains of itchiness, will medicate as ordered PRN. Left hand gauge [address], saline locked, pervious. Left chest Port-A-cath in place for HD access noted. Per previous shift, HD was ordered for yesterday, but instead HD will be done today. RN will call [facility] to follow up. Call light within reach, side rails up x2, bed locked, in the lowest position possible. Will continue monitoring pt and following up with the plan of care.
--- NOTE | 2020-06-30 07:45 | NUR ---
NURSE NOTES: confirmed schedule with [facility] stock checker. Per [facility] hold BP meds
[2020-06-30 08:00] VITALS: BP 147/78
[2020-06-30] MEDS: BuPROPion SR 150mg tab ORAL SCH (08:28)
[2020-06-30] MEDS: TraZODone 50mg tab ORAL SCH ×2 (08:29→17:10)
[2020-06-30] MEDS: Docusate 100mg cap ORAL SCH ×2 (08:30→17:10)
[2020-06-30] MEDS: LORazepam 1mg tab ORAL SCH (08:31)
[2020-06-30] MEDS: Patient's Own Med - Ritonavir 100mg ORAL SCH ×2 (08:33→17:10)
[2020-06-30] MEDS: Patient's Own Med - Tivicay 50mg ORAL SCH (08:33)
--- NOTE | 2020-06-30 11:02 | Nephrology Progress Note ---
Assessment/Plan Problem List: (1) Cocaine abuse (2) ESRD (end stage renal disease) on dialysis (3) Substance abuse (4) Fluid overload (5) HIV disease (6) HCV antibody positive (7) Hypertensive urgency Assessment (1) ESRD (end stage renal disease) on dialysis (2) HIV disease (3) HCV antibody positive (4) Hypertensive urgency (5) Substance abuse (6) Noncompliance (7) Anemia of chronic kidney disease Plan June 30: Patient seen on dialysis. Tolerating well. Labs reviewed. Continue per consultants. June 29: Status quo. Labs reviewed. Due for dialysis. Continue as is. June 28: Dialyzed yesterday. Next dialysis tomorrow. No labs drawn today. Continue per consultants. June 27: Patient due for dialysis today. Labs reviewed. Blood pressure medication adjusted. Continue per ID and other consultants. June 26: Patient was dialyzed and ultrafiltrate had yesterday. Today's labs reviewed. Will arrange for dialysis again tomorrow. Continue per PMD and consultants. Subjective ROS Limited/Unobtainable: No Constitutional: Reports: malaise Objective Objective Last 24 Hour Vital Signs Date Time Temp Pulse Resp B/P (MAP) Pulse Ox O2 Delivery O2 Flow Rate FiO2 06/30/20 09:01 72 18 135/70 96 06/30/20 09:00 Room Air 06/30/20 08:32 79 147/78 06/30/20 08:31 79 18 147/78 95 06/30/20 08:00 98.0 79 18 147/78 (101) 95 06/30/20 05:56 152/78 06/30/20 04:00 98.4 96 18 152/78 (102) 93 06/30/20 03:56 91 18 136/71 94 06/30/20 03:26 89 18 143/69 94 06/30/20 00:00 98.6 92 18 148/72 (97) 93 06/29/20 21:19 140/70 06/29/20 20:10 Room Air 06/29/20 20:00 98.4 90 18 140/70 (93) 93 06/29/20 18:50 97.7 06/29/20 17:09 76 20 136/74 94 06/29/20 16:39 76 20 136/74 94 06/29/20 16:00 97.7 76 20 136/74 (94) 94 06/29/20 14:37 97.9 06/29/20 13:07 152/82 06/29/20 12:03 77 152/82 06/29/20 12:00 97.9 77 20 152/82 (105) 93 Intake and Output 06/29/20 06/30/20 19:00 07:00 Intake Total 895 ml Balance 895 ml Intake Oral 840 ml IV Total 55 ml Current Medications Medications (Trade) Dose Ordered Sig/Rochelle Route PRN Reason Start Time Stop Time Status Last Admin Dose Admin Acetaminophen (Tylenol) 650 mg Q4H PRN ORAL Temp >100.5 06/25/20 20:45 07/25/20 20:44 06/25/20 20:53 Amlodipine Besylate (Norvasc) 10 mg DAILY ORAL 06/25/20 09:00 07/25/20 08:59 06/29/20 12:03 Bupropion HCl (Wellbutrin SR) 150 mg DAILY ORAL 06/25/20 09:00 07/25/20 08:59 06/30/20 08:28 Clonidine HCl (Catapres Tab) 0.1 mg Q4H PRN ORAL bp over 165 syst 06/25/20 10:15 09/23/20 10:14 06/28/20 00:45 Docusate Sodium (Colace) 100 mg BID ORAL 06/25/20 09:00 07/25/20 08:59 06/30/20 08:30 Escitalopram Oxalate (Lexapro) 10 mg DAILY ORAL 06/25/20 09:00 07/25/20 08:59 06/30/20 08:28 Heparin Sodium (Porcine) (Heparin 5000 units/ml) 5,000 units Q8HR SUBQ 06/25/20 09:30 08/09/20 09:29 06/30/20 06:04 Hydralazine HCl (Apresoline) 100 mg EVERY 8 HOURS ORAL 06/28/20 06:00 09/26/20 05:59 06/30/20 05:56 Hydromorphone HCl (Dilaudid) 2 mg Q4H PRN IVP Severe Pain (Pain Scale 7-10) 06/27/20 15:00 07/04/20 14:59 06/30/20 07:30 Hydroxyzine HCl (Atarax) 25 mg THREE TIMES A DAY PRN ORAL Itching 06/25/20 10:00 07/25/20 09:59 06/30/20 05:56 Levothyroxine Sodium (Synthroid) 100 mcg DAILY ORAL 06/29/20 09:00 07/25/20 08:59 06/30/20 08:30 Lorazepam (Ativan) 1 mg DAILY ORAL 06/25/20 09:00 07/02/20 08:59 06/30/20 08:31 Lorazepam (Ativan) 1 mg Q8H PRN ORAL For Anxiety 06/25/20 17:30 07/02/20 17:29 06/30/20 03:26 Ondansetron HCl (Zofran) 4 mg Q6H PRN IVP Nausea & Vomiting 06/25/20 14:00 07/25/20 13:59 06/30/20 08:41 Pantoprazole (Protonix) 40 mg BID ORAL 06/25/20 09:00 07/25/20 08:59 06/30/20 08:29 Patient Own Medication (Patient's Own Med) 1 ea BID ORAL 06/27/20 20:00 07/27/20 19:59 06/30/20 08:30 Patient Own Medication (Patient's Own Med) 1 ea BID ORAL 06/27/20 20:00 07/27/20 19:59 06/30/20 08:33 Patient Own Medication (Patient's Own Med) 1 ea DAILY ORAL 06/27/20 20:00 07/27/20 19:59 06/30/20 08:33 Piperacillin Sod/ Tazobactam Sod 2.25 gm/Dextrose 55 ml @ 110 mls/hr Q8HR IV 06/29/20 22:00 07/06/20 21:59 06/30/20 05:55 Sevelamer Carbonate (Renvela) 1,600 mg THREE TIMES A DAY ORAL 06/27/20 09:00 09/25/20 08:59 06/30/20 08:29 Trazodone HCl (Desyrel) 50 mg BID ORAL 06/25/20 09:00 07/25/20 08:59 06/29/20 17:08 Vancomycin HCl (Vanco pharmacy to dose) 1 ea DAILY PRN MISC Per rx protocol 06/27/20 11:15 07/27/20 11:14 Laboratory Tests 06/30/20 04:53: White Blood Count 3.4L, Red Blood Count 3.11L, Hemoglobin 9.0L, Hematocrit 27.2L , Mean Corpuscular Volume 87, Mean Corpuscular Hemoglobin 28.9, Mean Corpuscular Hemoglobin Concent 33.1, Red Cell Distribution Width 17.4H, Platelet Count 122L, Mean Platelet Volume 7.1, Neutrophils (%) (Auto) , Lymphocytes (%) (Auto) , Monocytes (%) (Auto) , Eosinophils (%) (Auto) , Basophils (%) (Auto) , Differential Total Cells Counted 100, Neutrophils % (Manual) 66, Lymphocytes % (Manual) 20, Monocytes % (Manual) 11H, Eosinophils % (Manual) 3, Basophils % (Manual) 0, Band Neutrophils 0, Platelet Estimate DecreasedL, Platelet Morphology Normal, Hypochromasia 1+, Anisocytosis 1+, Sodium Level 136, Potassium Level 4.2, Chloride Level 98, Carbon Dioxide Level 28, Anion Gap 11, Blood Urea Nitrogen 34H, Creatinine 9.3H, Estimat Glomerular Filtration Rate 5.1 , Glucose Level 89, Calcium Level 7.8L, Total Bilirubin 0.4, Aspartate Amino Transf (AST/SGOT) 16, Alanine Aminotransferase (ALT/SGPT) < 6L, Alkaline Phosphatase 62, Total Protein 9.1H, Albumin 2.8L, Globulin 6.3, Albumin/Globulin Ratio 0.4L Height (Feet): 5 Height (Inches): 4.00 Weight (Pounds): 165 General Appearance: no apparent distress Objective No change Jack Pryor MD Jun 30, 2020 11:02
--- NOTE | 2020-06-30 11:52 | Infectious Diseases Prog Note ---
Assessment/Plan Assessment/Plan antibiotics : vancomycin iv, zosyn, ARV A 1. cholecystitis 2. hypertension 3. HIV 4. renal failure on HD 5. cirrhosis 6. coag neg staph sepsis P 1. continue iv vancomycin 6 more days 2. continue zosyn 4 more days 3. will follow up cultures Subjective Constitutional: Denies: fever, chills Respiratory: Denies: shortness of breath, dry cough Gastrointestinal/Abdominal: Denies: nausea, vomiting, diarrhea Musculoskeletal: Reports: pain - decreased abdominal Allergies: Coded Allergies: ASPIRIN (Unverified Allergy, Unknown, 01/16/20) IODINE (Verified Allergy, Unknown, 01/07/20) Uncoded Allergies: CONTRAST DYE (Allergy, Unknown, 01/07/20) NSAID (Allergy, Unknown, 04/24/20) Objective Last 24 Hour Vital Signs Date Time Temp Pulse Resp B/P (MAP) Pulse Ox O2 Delivery O2 Flow Rate FiO2 06/30/20 09:01 72 18 135/70 96 06/30/20 09:00 Room Air 06/30/20 08:32 79 147/78 06/30/20 08:31 79 18 147/78 95 06/30/20 08:00 98.0 79 18 147/78 (101) 95 06/30/20 05:56 152/78 06/30/20 04:00 98.4 96 18 152/78 (102) 93 06/30/20 03:56 91 18 136/71 94 06/30/20 03:26 89 18 143/69 94 06/30/20 00:00 98.6 92 18 148/72 (97) 93 06/29/20 21:19 140/70 06/29/20 20:10 Room Air 06/29/20 20:00 98.4 90 18 140/70 (93) 93 06/29/20 18:50 97.7 06/29/20 17:09 76 20 136/74 94 06/29/20 16:39 76 20 136/74 94 06/29/20 16:00 97.7 76 20 136/74 (94) 94 06/29/20 14:37 97.9 06/29/20 13:07 152/82 06/29/20 12:03 77 152/82 06/29/20 12:00 97.9 77 20 152/82 (105) 93 Height (Feet): 5 Height (Inches): 4.00 Weight (Pounds): 165 Respiratory/Chest: lungs clear Cardiovascular: normal rate, regular rhythm, no gallop/murmur Abdomen: soft, non tender Extremities: other - left subclavian catheter, + edema Laboratory Tests Test 06/30/20 04:53 White Blood Count 3.4 K/UL (4.8-10.8) L Red Blood Count 3.11 M/UL (4.20-5.40) L Hemoglobin 9.0 G/DL (12.0-16.0) L Hematocrit 27.2 % (37.0-47.0) L Mean Corpuscular Volume 87 FL (80-99) Mean Corpuscular Hemoglobin 28.9 PG (27.0-31.0) Mean Corpuscular Hemoglobin Concent 33.1 G/DL (32.0-36.0) Red Cell Distribution Width 17.4 % (11.6-14.8) H Platelet Count 122 K/UL (150-450) L Mean Platelet Volume 7.1 FL (6.5-10.1) Neutrophils (%) (Auto) % (45.0-75.0) Lymphocytes (%) (Auto) % (20.0-45.0) Monocytes (%) (Auto) % (1.0-10.0) Eosinophils (%) (Auto) % (0.0-3.0) Basophils (%) (Auto) % (0.0-2.0) Differential Total Cells Counted 100 Neutrophils % (Manual) 66 % (45-75) Lymphocytes % (Manual) 20 % (20-45) Monocytes % (Manual) 11 % (1-10) H Eosinophils % (Manual) 3 % (0-3) Basophils % (Manual) 0 % (0-2) Band Neutrophils 0 % (0-8) Platelet Estimate Decreased L Platelet Morphology Normal Hypochromasia 1+ Anisocytosis 1+ Sodium Level 136 MMOL/L (136-145) Potassium Level 4.2 MMOL/L (3.5-5.1) Chloride Level 98 MMOL/L (98-107) Carbon Dioxide Level 28 MMOL/L (21-32) Anion Gap 11 mmol/L (5-15) Blood Urea Nitrogen 34 mg/dL (7-18) H Creatinine 9.3 MG/DL (0.55-1.30) H Estimat Glomerular Filtration Rate 5.1 mL/min (>60) Glucose Level 89 MG/DL (74-106) Calcium Level 7.8 MG/DL (8.5-10.1) L Total Bilirubin 0.4 MG/DL (0.2-1.0) Aspartate Amino Transf (AST/SGOT) 16 U/L (15-37) Alanine Aminotransferase (ALT/SGPT) < 6 U/L (12-78) L Alkaline Phosphatase 62 U/L (46-116) Total Protein 9.1 G/DL (6.4-8.2) H Albumin 2.8 G/DL (3.4-5.0) L Globulin 6.3 g/dL Albumin/Globulin Ratio 0.4 (1.0-2.7) L Current Medications Medications (Trade) Dose Ordered Sig/Rochelle Route PRN Reason Start Time Stop Time Status Last Admin Dose Admin Acetaminophen (Tylenol) 650 mg Q4H PRN ORAL Temp >100.5 06/25/20 20:45 07/25/20 20:44 06/25/20 20:53 Amlodipine Besylate (Norvasc) 10 mg DAILY ORAL 06/25/20 09:00 07/25/20 08:59 06/29/20 12:03 Bupropion HCl (Wellbutrin SR) 150 mg DAILY ORAL 06/25/20 09:00 07/25/20 08:59 06/30/20 08:28 Clonidine HCl (Catapres Tab) 0.1 mg Q4H PRN ORAL bp over 165 syst 06/25/20 10:15 09/23/20 10:14 06/28/20 00:45 Docusate Sodium (Colace) 100 mg BID ORAL 06/25/20 09:00 07/25/20 08:59 06/30/20 08:30 Escitalopram Oxalate (Lexapro) 10 mg DAILY ORAL 06/25/20 09:00 07/25/20 08:59 06/30/20 08:28 Heparin Sodium (Porcine) (Heparin 5000 units/ml) 5,000 units Q8HR SUBQ 06/25/20 09:30 08/09/20 09:29 06/30/20 06:04 Hydralazine HCl (Apresoline) 100 mg EVERY 8 HOURS ORAL 06/28/20 06:00 09/26/20 05:59 06/30/20 05:56 Hydromorphone HCl (Dilaudid) 2 mg Q4H PRN IVP Severe Pain (Pain Scale 7-10) 06/27/20 15:00 07/04/20 14:59 06/30/20 07:30 Hydroxyzine HCl (Atarax) 25 mg THREE TIMES A DAY PRN ORAL Itching 06/25/20 10:00 07/25/20 09:59 06/30/20 05:56 Levothyroxine Sodium (Synthroid) 100 mcg DAILY ORAL 06/29/20 09:00 07/25/20 08:59 06/30/20 08:30 Lorazepam (Ativan) 1 mg DAILY ORAL 06/25/20 09:00 07/02/20 08:59 06/30/20 08:31 Lorazepam (Ativan) 1 mg Q8H PRN ORAL For Anxiety 06/25/20 17:30 07/02/20 17:29 06/30/20 03:26 Ondansetron HCl (Zofran) 4 mg Q6H PRN IVP Nausea & Vomiting 06/25/20 14:00 07/25/20 13:59 06/30/20 08:41 Pantoprazole (Protonix) 40 mg BID ORAL 06/25/20 09:00 07/25/20 08:59 06/30/20 08:29 Patient Own Medication (Patient's Own Med) 1 ea BID ORAL 06/27/20 20:00 07/27/20 19:59 06/30/20 08:30 Patient Own Medication (Patient's Own Med) 1 ea BID ORAL 06/27/20 20:00 07/27/20 19:59 06/30/20 08:33 Patient Own Medication (Patient's Own Med) 1 ea DAILY ORAL 06/27/20 20:00 07/27/20 19:59 06/30/20 08:33 Piperacillin Sod/ Tazobactam Sod 2.25 gm/Dextrose 55 ml @ 110 mls/hr Q8HR IV 06/29/20 22:00 07/06/20 21:59 06/30/20 05:55 Sevelamer Carbonate (Renvela) 1,600 mg THREE TIMES A DAY ORAL 06/27/20 09:00 2/22/21 08:59 06/30/20 08:29 Trazodone HCl (Desyrel) 50 mg BID ORAL 06/25/20 09:00 07/25/20 08:59 06/29/20 17:08 Vancomycin HCl ([facility] pharmacy to dose) 1 ea DAILY PRN MISC Per rx protocol 06/27/20 11:15 07/27/20 11:14 Elvis Garibay MD Jun 30, 2020 11:52
[2020-06-30 12:00] VITALS: BP 150/78
--- NOTE | 2020-06-30 14:07 | Surgery Progress Note ---
Surgery Progress Note Subjective Symptoms: improved, tolerating diet, passing flatus, BM Objective Last 24 Hour Vital Signs Date Time Temp Pulse Resp B/P (MAP) Pulse Ox O2 Delivery O2 Flow Rate FiO2 06/30/20 13:12 150/78 06/30/20 12:00 97.8 73 18 150/78 (102) 96 06/30/20 09:01 72 18 135/70 96 06/30/20 09:00 Room Air 06/30/20 08:32 79 147/78 06/30/20 08:31 79 18 147/78 95 06/30/20 08:00 98.0 79 18 147/78 (101) 95 06/30/20 05:56 152/78 06/30/20 04:00 98.4 96 18 152/78 (102) 93 06/30/20 03:56 91 18 136/71 94 06/30/20 03:26 89 18 143/69 94 06/30/20 00:00 98.6 92 18 148/72 (97) 93 06/29/20 21:19 140/70 06/29/20 20:10 Room Air 06/29/20 20:00 98.4 90 18 140/70 (93) 93 06/29/20 18:50 97.7 06/29/20 17:09 76 20 136/74 94 06/29/20 16:39 76 20 136/74 94 06/29/20 16:00 97.7 76 20 136/74 (94) 94 06/29/20 14:37 97.9 I&O Intake and Output 06/29/20 06/30/20 19:00 07:00 Intake Total 895 ml Balance 895 ml Intake Oral 840 ml IV Total 55 ml Dressing: saturated Cardiovascular: RSR Respiratory: decreased breath sounds Abdomen: soft, non-tender, present bowel sounds, non-distended Extremities: no edema, no tenderness, no cyanosis Laboratory Tests Test 06/30/20 04:53 White Blood Count 3.4 K/UL (4.8-10.8) L Red Blood Count 3.11 M/UL (4.20-5.40) L Hemoglobin 9.0 G/DL (12.0-16.0) L Hematocrit 27.2 % (37.0-47.0) L Mean Corpuscular Volume 87 FL (80-99) Mean Corpuscular Hemoglobin 28.9 PG (27.0-31.0) Mean Corpuscular Hemoglobin Concent 33.1 G/DL (32.0-36.0) Red Cell Distribution Width 17.4 % (11.6-14.8) H Platelet Count 122 K/UL (150-450) L Mean Platelet Volume 7.1 FL (6.5-10.1) Neutrophils (%) (Auto) % (45.0-75.0) Lymphocytes (%) (Auto) % (20.0-45.0) Monocytes (%) (Auto) % (1.0-10.0) Eosinophils (%) (Auto) % (0.0-3.0) Basophils (%) (Auto) % (0.0-2.0) Differential Total Cells Counted 100 Neutrophils % (Manual) 66 % (45-75) Lymphocytes % (Manual) 20 % (20-45) Monocytes % (Manual) 11 % (1-10) H Eosinophils % (Manual) 3 % (0-3) Basophils % (Manual) 0 % (0-2) Band Neutrophils 0 % (0-8) Platelet Estimate Decreased L Platelet Morphology Normal Hypochromasia 1+ Anisocytosis 1+ Sodium Level 136 MMOL/L (136-145) Potassium Level 4.2 MMOL/L (3.5-5.1) Chloride Level 98 MMOL/L (98-107) Carbon Dioxide Level 28 MMOL/L (21-32) Anion Gap 11 mmol/L (5-15) Blood Urea Nitrogen 34 mg/dL (7-18) H Creatinine 9.3 MG/DL (0.55-1.30) H Estimat Glomerular Filtration Rate 5.1 mL/min (>60) Glucose Level 89 MG/DL (74-106) Calcium Level 7.8 MG/DL (8.5-10.1) L Total Bilirubin 0.4 MG/DL (0.2-1.0) Aspartate Amino Transf (AST/SGOT) 16 U/L (15-37) Alanine Aminotransferase (ALT/SGPT) < 6 U/L (12-78) L Alkaline Phosphatase 62 U/L (46-116) Total Protein 9.1 G/DL (6.4-8.2) H Albumin 2.8 G/DL (3.4-5.0) L Globulin 6.3 g/dL Albumin/Globulin Ratio 0.4 (1.0-2.7) L Plan Problems: (1) Cocaine abuse (2) Anxiety (3) Cirrhosis Assessment & Plan: ABDOMEN: Liver: Cirrhosis. Gallbladder and bile ducts: Possible acute cholecystitis with mildly distended gallbladder, pericholecystic fluid, gallstones, mild wall thickening. Correlate with presentation. No ductal dilation. Pancreas: Unremarkable. No ductal dilation. Spleen: Similar splenomegaly 14.9 cm AP dimension. Adrenals: Unremarkable. No mass. Kidneys and ureters: Multiple bilateral renal probably benign hypodensities measure up to 1.7 cm on the right. Partly calcified left inferior renal pole structure, potentially a peripherally calcified cyst. No hydronephrosis. Stomach and bowel: Colonic diverticulosis without acute diverticulitis. No obstruction. PELVIS: Appendix: No findings to suggest acute appendicitis. Bladder: Urinary bladder wall thickening. No stones. Reproductive: Indeterminate potentially multiloculated right adnexal intervally increased in size, now 6.6 x 4.7 right 4.9 cm cystic structure. ABDOMEN and PELVIS: Intraperitoneal space: Small nonloculated low-attenuation ascites. No free air. Bones/joints: No acute fracture. No dislocation. Soft tissues: Anasarca. Vasculature: Numerous upper abdominal varices. Potentially recanalized umbilical vein. No abdominal aortic aneurysm. Lymph nodes: Unremarkable. No enlarged lymph nodes. IMPRESSION: 1. Study limited due to lack of IV contrast. 2. Possible acute cholecystitis with mildly distended gallbladder, pericholecystic fluid, gallstones, mild wall thickening. Correlate with presentation. 3. Urinary bladder wall thickening could be incidental, due to high outlet pressures, or could represent cystitis. 4. Mosaic lung attenuation could represent small airways disease. 5. Small right low-attenuation layering pleural effusion with passive atelectasis. 6. Recommend pelvic MRI to further characterize right adnexal cystic structure; neoplasm not excluded. 7. Probably benign renal findings above, and follow-up in 6 months to document stability of calcified left inferior renal pole structure. 8. Cirrhosis, splenomegaly, small, ascites, upper abdominal varices, recanalized umbilical vein. 9. Colonic diverticulosis without acute diverticulitis. (4) Adnexal mass (5) Recurrent vulvovaginal herpes simplex (6) Hyperkalemia (7) Hypertension (8) Intractable abdominal pain (9) Sick sinus syndrome (10) Fluid overload (11) Substance abuse (12) Pruritus (13) Cholecystitis, acute Assessment & Plan: 69-year-old female with extensive medical history end-stage renal disease on dialysis noncompliant at times history of catheter infections history of cirrhosis presenting with acute cholecystitis. CT reviewed. Patient states that since admission her pain is improved and she is feeling little bit better. Labs are improving. Currently no nausea vomiting fever chills. Tolerating diet. Given patient's comorbidities liver disease cirrhosis will plan for medical management as she is already showing improvement with antibiotics and resuscitation. I do long discussion with the patient regards to her care plan history comorbidities and the morbidity mortality associated potentially with surgical intervention. A cholecystomy can be considered but if able to manage with medical management would be in patient's best interest given her comorbidities. This will allow her time to resuscitate improved optimized and considerations of surgery in the future elective if potential. Continue IV antibiotics per infectious disease Case discussed Continue with diet as tolerated Ultrasound ordered We will follow serial exams and recs thank you improving medical management of acute silvano responsive okay for diet cont abx (14) Weakness (15) HIV disease (16) Epileptic seizure, generalized (17) Open wound of chest wall (18) CHF (congestive heart failure), NYHA class II (19) HCV antibody positive (20) ESRD (end stage renal disease) on dialysis (21) Hypertensive urgency Deon Crowe Jun 30, 2020 14:07
--- NOTE | 2020-06-30 15:49 | General Progress Note ---
Subjective ROS Limited/Unobtainable: No Constitutional: Reports: malaise, weakness HEENT: Reports: no symptoms Cardiovascular: Reports: no symptoms Respiratory: Reports: no symptoms Gastrointestinal/Abdominal: Reports: abdominal pain, nausea Genitourinary: Reports: no symptoms Neurologic/Psychiatric: Reports: anxiety, depressed, emotional problems Endocrine: Reports: no symptoms Hematologic/Lymphatic: Reports: no symptoms Allergies: Coded Allergies: ASPIRIN (Unverified Allergy, Unknown, 01/16/20) IODINE (Verified Allergy, Unknown, 01/07/20) Uncoded Allergies: CONTRAST DYE (Allergy, Unknown, 01/07/20) NSAID (Allergy, Unknown, 04/24/20) All Systems: reviewed and negative except above Subjective no complaints. pain controlled. on iv abx. decreased abd pain. minimal nausea. no vomiting. c/o pain- controlled on current regime. c/o anxiety- controlled on current rx Objective Last 24 Hour Vital Signs Date Time Temp Pulse Resp B/P (MAP) Pulse Ox O2 Delivery O2 Flow Rate FiO2 06/30/20 13:12 150/78 06/30/20 12:00 97.8 73 18 150/78 (102) 96 06/30/20 09:01 72 18 135/70 96 06/30/20 09:00 Room Air 06/30/20 08:32 79 147/78 06/30/20 08:31 79 18 147/78 95 06/30/20 08:00 98.0 79 18 147/78 (101) 95 06/30/20 05:56 152/78 06/30/20 04:00 98.4 96 18 152/78 (102) 93 06/30/20 03:56 91 18 136/71 94 06/30/20 03:26 89 18 143/69 94 06/30/20 00:00 98.6 92 18 148/72 (97) 93 06/29/20 21:19 140/70 06/29/20 20:10 Room Air 06/29/20 20:00 98.4 90 18 140/70 (93) 93 06/29/20 18:50 97.7 06/29/20 17:09 76 20 136/74 94 06/29/20 16:39 76 20 136/74 94 06/29/20 16:00 97.7 76 20 136/74 (94) 94 Intake and Output 06/29/20 06/30/20 19:00 07:00 Intake Total 895 ml Balance 895 ml Intake Oral 840 ml IV Total 55 ml Laboratory Tests 06/30/20 04:53: White Blood Count 3.4L, Red Blood Count 3.11L, Hemoglobin 9.0L, Hematocrit 27.2L , Mean Corpuscular Volume 87, Mean Corpuscular Hemoglobin 28.9, Mean Corpuscular Hemoglobin Concent 33.1, Red Cell Distribution Width 17.4H, Platelet Count 122L, Mean Platelet Volume 7.1, Neutrophils (%) (Auto) , Lymphocytes (%) (Auto) , Monocytes (%) (Auto) , Eosinophils (%) (Auto) , Basophils (%) (Auto) , Differential Total Cells Counted 100, Neutrophils % (Manual) 66, Lymphocytes % (Manual) 20, Monocytes % (Manual) 11H, Eosinophils % (Manual) 3, Basophils % (Manual) 0, Band Neutrophils 0, Platelet Estimate DecreasedL, Platelet Morphology Normal, Hypochromasia 1+, Anisocytosis 1+, Sodium Level 136, Potassium Level 4.2, Chloride Level 98, Carbon Dioxide Level 28, Anion Gap 11, Blood Urea Nitrogen 34H, Creatinine 9.3H, Estimat Glomerular Filtration Rate 5.1, Glucose Level 89, Calcium Level 7.8L, Total Bilirubin 0.4, Aspartate Amino Transf (AST/SGOT) 16, Alanine Aminotransferase (ALT/SGPT) < 6L, Alkaline Phosphatase 62, Total Protein 9.1H, Albumin 2.8L, Globulin 6.3, Albumin/Globulin Ratio 0.4L Height (Feet): 5 Height (Inches): 4.00 Weight (Pounds): 165 Objective General Appearance: WD/WN, alert EENT: normal ENT inspection Neck: non-tender, normal alignment Cardiovascular: normal rate, regular rhythm Respiratory/Chest: chest wall non-tender, lungs clear, normal breath sounds, no respiratory distress Abdomen: normal bowel sounds, soft, no organomegaly, no mass, guarding, tender Edema: no edema noted Arm (L), no edema noted Arm (R) 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, alert, oriented x 3, responsive Lymphatic: normal anterior cervical (L), normal anterior cervical (R) Assessment/Plan Problem List: (1) Cocaine abuse ICD Codes: F14.10 - Cocaine abuse, uncomplicated SNOMED: 89556884 (2) Cirrhosis ICD Codes: K74.60 - Unspecified cirrhosis of liver SNOMED: 71870989 Qualifiers: Qualified Codes: K74.60 - Unspecified cirrhosis of liver; R18.8 - Other ascites (3) Cholecystitis, acute ICD Codes: K81.0 - Acute cholecystitis SNOMED: 10551651 (4) HIV disease ICD Codes: B20 - Human immunodeficiency virus [HIV] disease SNOMED: 89349776 (5) Epileptic seizure, generalized ICD Codes: G40.309 - Generalized idiopathic epilepsy and epileptic syndromes, not intractable, without status epilepticus SNOMED: 02193608 (6) CHF (congestive heart failure), NYHA class II ICD Codes: I50.9 - Heart failure, unspecified SNOMED: 860482953, 544498270 (7) HCV antibody positive ICD Codes: R76.8 - Other specified abnormal immunological findings in serum SNOMED: 568488736 (8) ESRD (end stage renal disease) on dialysis ICD Codes: N18.6 - End stage renal disease; Z99.2 - Dependence on renal dialysis SNOMED: 935634076 (9) Hypertensive urgency ICD Codes: I16.0 - Hypertensive urgency SNOMED: 483413102 Status: stable Assessment/Plan: cont iv abx per id abd us noted surgery follow up follow up cultures pain rx dvt/stress ulcer prophylaxis d/w surgery- high risk. try to treat conservatively HD per renal prn anxiolytics Michael Peralta MD Jun 30, 2020 15:48
[2020-06-30 16:00] VITALS: BP 143/74
--- NOTE | 2020-06-30 16:28 | NUR ---
CASE MANAGEMENT:REVIEW SI;ACUTE CHOLECYSTITIS. CIRRHOSIS. HIV. ESRD ON HD. 98.2 74 18 150/78 96% ON RA WBC 3.4 H/H 9.0/27.2 PLT 122 BUN 34 CR 9.3 CA 7.8 ALB 2.8 IS;ZOSYN IV Q8 SYNTHROID PO QD HYDRALAZINE PO Q8 DILAUDID IV Q4 PRN ATIVAN PO Q8 PRN ATARAX PO TID HEPARIN SQ Q8 PROTONIX PO BID MED SURG STATUS DCP;FROM HOME PLAN; INPATIENT HD
--- NOTE | 2020-06-30 19:36 | NUR ---
NURSE HAND-OFF: Important Events on Shift:Dialysis Patient Status: stable Diet: renal Pending Orders: n/a Pending Results/Labs:n/a Pending MD notification:n/a Latest Vital Signs: Temperature 98.2 , Pulse 74 , B/P 143 /74 , Respiratory Rate 18 , O2 SAT 96 , Room Air, O2 Flow Rate . Vital Sign Comment: stable Latest Espinoza Fall Score: 85 Fall Risk: High Risk Safety Measures: Call light Within Reach, Bed Alarm Zone 1, Side Rails Side Rails x2, Bed position Low and Locked. Fall Precautions: Yellow Socks Yellow Gown Door Sign Patient Fall Education Report given to MARTIN Kaufman.
[2020-06-30 20:00] VITALS: BP 149/77
[2020-07-01] VITALS: BP 146/76
--- NOTE | 2020-07-01 01:03 | Cardiology Progress Note ---
Subjective DATE OF SERVICE: Jun 30, 2020 Abdominal pain improving; tolerating diet BP parameters labile at times, but improving. +cocaine in tox screen on admit. +blood cultures with coag neg staph; IV abx per ID noted Monitor: sinus with episodes of SVT. Objective Last 24 Hour Vital Signs Date Time Temp Pulse Resp B/P (MAP) Pulse Ox O2 Delivery O2 Flow Rate FiO2 07/01/20 00:00 98.4 73 16 146/76 (99) 93 06/30/20 21:08 149/77 06/30/20 20:52 Room Air 06/30/20 20:00 98.1 77 16 149/77 (101) 91 06/30/20 18:53 74 18 143/74 96 06/30/20 18:23 74 18 143/74 96 06/30/20 16:00 98.2 74 18 143/74 (97) 96 06/30/20 13:12 150/78 06/30/20 12:00 97.8 73 18 150/78 (102) 96 06/30/20 09:01 72 18 135/70 96 06/30/20 09:00 Room Air 06/30/20 08:32 79 147/78 06/30/20 08:31 79 18 147/78 95 06/30/20 08:00 98.0 79 18 147/78 (101) 95 06/30/20 05:56 152/78 06/30/20 04:00 98.4 96 18 152/78 (102) 93 06/30/20 03:56 91 18 136/71 94 06/30/20 03:26 89 18 143/69 94 ROS: unchanged from 06/25/20 HEENT: normal ENT inspection RHYTHM: NSR, PVCs, PACs LUNGS: lungs clear bilaterally, other - left chest subclavian PermVCath CARDIAC: normal rate, regular rhythm, normal S1 and S2 ABDOMEN: normal bowel sounds, non tender, soft, no organomegaly EXTREMITIES: normal range of motion, non-tender, No edema Laboratory Tests Test 06/30/20 04:53 White Blood Count 3.4 K/UL (4.8-10.8) L Red Blood Count 3.11 M/UL (4.20-5.40) L Hemoglobin 9.0 G/DL (12.0-16.0) L Hematocrit 27.2 % (37.0-47.0) L Mean Corpuscular Volume 87 FL (80-99) Mean Corpuscular Hemoglobin 28.9 PG (27.0-31.0) Mean Corpuscular Hemoglobin Concent 33.1 G/DL (32.0-36.0) Red Cell Distribution Width 17.4 % (11.6-14.8) H Platelet Count 122 K/UL (150-450) L Mean Platelet Volume 7.1 FL (6.5-10.1) Neutrophils (%) (Auto) % (45.0-75.0) Lymphocytes (%) (Auto) % (20.0-45.0) Monocytes (%) (Auto) % (1.0-10.0) Eosinophils (%) (Auto) % (0.0-3.0) Basophils (%) (Auto) % (0.0-2.0) Differential Total Cells Counted 100 Neutrophils % (Manual) 66 % (45-75) Lymphocytes % (Manual) 20 % (20-45) Monocytes % (Manual) 11 % (1-10) H Eosinophils % (Manual) 3 % (0-3) Basophils % (Manual) 0 % (0-2) Band Neutrophils 0 % (0-8) Platelet Estimate Decreased L Platelet Morphology Normal Hypochromasia 1+ Anisocytosis 1+ Sodium Level 136 MMOL/L (136-145) Potassium Level 4.2 MMOL/L (3.5-5.1) Chloride Level 98 MMOL/L (98-107) Carbon Dioxide Level 28 MMOL/L (21-32) Anion Gap 11 mmol/L (5-15) Blood Urea Nitrogen 34 mg/dL (7-18) H Creatinine 9.3 MG/DL (0.55-1.30) H Estimat Glomerular Filtration Rate 5.1 mL/min (>60) Glucose Level 89 MG/DL (74-106) Calcium Level 7.8 MG/DL (8.5-10.1) L Total Bilirubin 0.4 MG/DL (0.2-1.0) Aspartate Amino Transf (AST/SGOT) 16 U/L (15-37) Alanine Aminotransferase (ALT/SGPT) < 6 U/L (12-78) L Alkaline Phosphatase 62 U/L (46-116) Total Protein 9.1 G/DL (6.4-8.2) H Albumin 2.8 G/DL (3.4-5.0) L Globulin 6.3 g/dL Albumin/Globulin Ratio 0.4 (1.0-2.7) L Assessment/Plan Assessment/Plan ESRD Gram positive sepsis with bacteremia - possible line infection. Hyperkalemia corrected Abdominal pain; not likely acute cholecystitis based on diagnostic studies Hypertension/HHD Ac/chr diastolic CHF Tachy-alysa syndrome Paroxysmal SVT Cocaine abuse HIV+ Hep C+ HD/UF today Advance antiHTN meds as needed Avoid BBlockers and clonidine due to potential for bradyarrhythmias Supervisor [employer] again regarding risk of SCD with cocaine Abx per ID - can DC home after completing IV zosyn. Nam Barnett MD Jul 01, 2020 01:03
[2020-07-01] MEDS: LORazepam 1mg tab ORAL PRN ×3 (02:18→22:42)
[2020-07-01] MEDS: HydrALAZINE 25mg tab ORAL SCH ×3 (05:14→21:20)
[2020-07-01] MEDS: Piperacillin/Tazobactam 2.25 GM in D5W 55 ML IV SCH ×3 (05:15→22:43)
[2020-07-01] MEDS: Heparin 5000 units/ml inj SUBQ SCH ×3 (05:19→21:29)
--- NOTE | 2020-07-01 07:14 | NUR ---
NURSE NOTES: Received report from MARTIN Oconnell. Received pt in bed, in room air, in NAD. Breathing even, unlabored, no complaint of pain, complains of itchiness, will medicate as ordered PRN. Left hand gauge [address], saline locked, pervious. Left chest Port-A-cath in place for HD access noted. Call light within reach, side rails up x2, bed locked, in the lowest position possible. Will continue monitoring pt and following up with the plan of care.
--- NOTE | 2020-07-01 07:18 | NUR ---
HAND-OFF: Report given to MARTIN Sandoval.
[2020-07-01 08:00] VITALS: BP 153/74
[2020-07-01] MEDS: Docusate 100mg cap ORAL SCH ×2 (08:36→17:15)
[2020-07-01] MEDS: BuPROPion SR 150mg tab ORAL SCH (08:36)
[2020-07-01] MEDS: TraZODone 50mg tab ORAL SCH ×2 (08:37→17:15)
[2020-07-01] MEDS: LORazepam 1mg tab ORAL SCH (08:37)
[2020-07-01] MEDS: Patient's Own Med - Ritonavir 100mg ORAL SCH ×2 (08:37→17:15)
[2020-07-01] MEDS: Patient's Own Med - Tivicay 50mg ORAL SCH (08:38)
--- NOTE | 2020-07-01 08:57 | NUR ---
NURSE NOTES: RN spoke with patient in regards of wound pictures today. Patient got upset and refused to have her pictures taken. RN and patient exchange was witnessed by MARTIN Molina. WIll try again later
--- NOTE | 2020-07-01 09:01 | NUR ---
NURSE NOTES: RN called [facility] to confirm schedule for Dialysis tomorrow. RN spoke to franco and she will relay message to Jose Dialysis nurse
--- NOTE | 2020-07-01 11:48 | NUR ---
NURSE NOTES: patient refused wound pictures again. States she has no interest in letting RN take pictures of her DTI
[2020-07-01 12:00] VITALS: BP 142/69
--- NOTE | 2020-07-01 13:06 | General Progress Note ---
Subjective ROS Limited/Unobtainable: No Constitutional: Reports: malaise, weakness HEENT: Reports: no symptoms Cardiovascular: Reports: no symptoms Respiratory: Reports: cough Gastrointestinal/Abdominal: Reports: no symptoms Genitourinary: Reports: no symptoms Neurologic/Psychiatric: Reports: anxiety, depressed Endocrine: Reports: no symptoms Hematologic/Lymphatic: Reports: anemia Allergies: Coded Allergies: ASPIRIN (Unverified Allergy, Unknown, 01/16/20) IODINE (Verified Allergy, Unknown, 01/07/20) Uncoded Allergies: CONTRAST DYE (Allergy, Unknown, 01/07/20) NSAID (Allergy, Unknown, 04/24/20) All Systems: reviewed and negative except above Subjective no complaints. pain controlled. on iv abx. decreased abd pain. minimal nausea. no vomiting. c/o pain- controlled on current regime. c/o anxiety- controlled on current rx. no nausea or vomiting Objective Last 24 Hour Vital Signs Date Time Temp Pulse Resp B/P (MAP) Pulse Ox O2 Delivery O2 Flow Rate FiO2 07/01/20 12:00 97.7 74 19 142/69 (93) 95 07/01/20 09:07 77 18 138/77 97 07/01/20 09:00 Room Air 07/01/20 08:37 77 18 153/74 97 07/01/20 08:37 77 153/74 07/01/20 08:00 98.1 77 18 153/74 (100) 97 07/01/20 05:14 139/71 07/01/20 02:48 79 18 139/71 93 07/01/20 02:18 81 18 143/69 93 07/01/20 00:00 98.4 73 16 146/76 (99) 93 06/30/20 21:08 149/77 06/30/20 20:52 Room Air 06/30/20 20:00 98.1 77 16 149/77 (101) 91 06/30/20 18:53 74 18 143/74 96 06/30/20 18:23 74 18 143/74 96 06/30/20 16:00 98.2 74 18 143/74 (97) 96 06/30/20 13:12 150/78 Intake and Output 06/30/20 07/01/20 19:00 07:00 Intake Total 1100 ml Output Total 2000 ml Balance -900 ml Intake Oral 1100 ml Output Hemodialysis UF 2000 ml # Bowel Movements 1 Laboratory Tests 07/01/20 05:40: Random Vancomycin Level 18.3 Height (Feet): 5 Height (Inches): 4.00 Weight (Pounds): 165 Objective General Appearance: WD/WN, alert EENT: normal ENT inspection Neck: non-tender, normal alignment Cardiovascular: normal rate, regular rhythm Respiratory/Chest: chest wall non-tender, lungs clear, normal breath sounds, no respiratory distress Abdomen: normal bowel sounds, soft, no organomegaly, no mass, guarding, tender Edema: no edema noted Arm (L), no edema noted Arm (R) 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, alert, oriented x 3, responsive Lymphatic: normal anterior cervical (L), normal anterior cervical (R) Assessment/Plan Problem List: (1) Cocaine abuse ICD Codes: F14.10 - Cocaine abuse, uncomplicated SNOMED: 14831335 (2) Cirrhosis ICD Codes: K74.60 - Unspecified cirrhosis of liver SNOMED: 26200437 Qualifiers: Qualified Codes: K74.60 - Unspecified cirrhosis of liver; R18.8 - Other ascites (3) Cholecystitis, acute ICD Codes: K81.0 - Acute cholecystitis SNOMED: 33333879 (4) HIV disease ICD Codes: B20 - Human immunodeficiency virus [HIV] disease SNOMED: 64610859 (5) Epileptic seizure, generalized ICD Codes: G40.309 - Generalized idiopathic epilepsy and epileptic syndromes, not intractable, without status epilepticus SNOMED: 59839756 (6) CHF (congestive heart failure), NYHA class II ICD Codes: I50.9 - Heart failure, unspecified SNOMED: 481088468, 233852751 (7) HCV antibody positive ICD Codes: R76.8 - Other specified abnormal immunological findings in serum SNOMED: 829180164 (8) ESRD (end stage renal disease) on dialysis ICD Codes: N18.6 - End stage renal disease; Z99.2 - Dependence on renal dialysis SNOMED: 093574613 (9) Hypertensive urgency ICD Codes: I16.0 - Hypertensive urgency SNOMED: 288389807 Status: stable Assessment/Plan: cont iv abx per id abd us noted surgery follow up follow up cultures pain rx dvt/stress ulcer prophylaxis d/w surgery- high risk. try to treat conservatively HD per renal prn anxiolytics Uomoto,Michael M. MD Jul 01, 2020 13:06
--- NOTE | 2020-07-01 14:48 | Surgery Progress Note ---
Surgery Progress Note Subjective Symptoms: improved, tolerating diet, passing flatus, BM Objective Last 24 Hour Vital Signs Date Time Temp Pulse Resp B/P (MAP) Pulse Ox O2 Delivery O2 Flow Rate FiO2 07/01/20 13:15 142/69 07/01/20 12:00 97.7 74 19 142/69 (93) 95 07/01/20 09:07 77 18 138/77 97 07/01/20 09:00 Room Air 07/01/20 08:37 77 18 153/74 97 07/01/20 08:37 77 153/74 07/01/20 08:00 98.1 77 18 153/74 (100) 97 07/01/20 05:14 139/71 07/01/20 02:48 79 18 139/71 93 07/01/20 02:18 81 18 143/69 93 07/01/20 00:00 98.4 73 16 146/76 (99) 93 06/30/20 21:08 149/77 06/30/20 20:52 Room Air 06/30/20 20:00 98.1 77 16 149/77 (101) 91 06/30/20 18:53 74 18 143/74 96 06/30/20 18:23 74 18 143/74 96 06/30/20 16:00 98.2 74 18 143/74 (97) 96 I&O Intake and Output 06/30/20 07/01/20 19:00 07:00 Intake Total 1210 ml Output Total 2000 ml Balance -790 ml Intake Oral 1100 ml IV Total 110 ml Output Hemodialysis UF 2000 ml # Bowel Movements 1 Cardiovascular: RSR Respiratory: clear Abdomen: soft, non-tender, present bowel sounds Extremities: no edema, no tenderness, no cyanosis Laboratory Tests Test 07/01/20 05:40 Random Vancomycin Level 18.3 ug/mL Plan Problems: (1) Cocaine abuse (2) Anxiety (3) Cirrhosis Assessment & Plan: ABDOMEN: Liver: Cirrhosis. Gallbladder and bile ducts: Possible acute cholecystitis with mildly distended gallbladder, pericholecystic fluid, gallstones, mild wall thickening. Correlate with presentation. No ductal dilation. Pancreas: Unremarkable. No ductal dilation. Spleen: Similar splenomegaly 14.9 cm AP dimension. Adrenals: Unremarkable. No mass. Kidneys and ureters: Multiple bilateral renal probably benign hypodensities measure up to 1.7 cm on the right. Partly calcified left inferior renal pole structure, potentially a peripherally calcified cyst. No hydronephrosis. Stomach and bowel: Colonic diverticulosis without acute diverticulitis. No obstruction. PELVIS: Appendix: No findings to suggest acute appendicitis. Bladder: Urinary bladder wall thickening. No stones. Reproductive: Indeterminate potentially multiloculated right adnexal intervally increased in size, now 6.6 x 4.7 right 4.9 cm cystic structure. ABDOMEN and PELVIS: Intraperitoneal space: Small nonloculated low-attenuation ascites. No free air. Bones/joints: No acute fracture. No dislocation. Soft tissues: Anasarca. Vasculature: Numerous upper abdominal varices. Potentially recanalized umbilical vein. No abdominal aortic aneurysm. Lymph nodes: Unremarkable. No enlarged lymph nodes. IMPRESSION: 1. Study limited due to lack of IV contrast. 2. Possible acute cholecystitis with mildly distended gallbladder, pericholecystic fluid, gallstones, mild wall thickening. Correlate with presentation. 3. Urinary bladder wall thickening could be incidental, due to high outlet pressures, or could represent cystitis. 4. Mosaic lung attenuation could represent small airways disease. 5. Small right low-attenuation layering pleural effusion with passive atelectasis. 6. Recommend pelvic MRI to further characterize right adnexal cystic structure; neoplasm not excluded. 7. Probably benign renal findings above, and follow-up in 6 months to document stability of calcified left inferior renal pole structure. 8. Cirrhosis, splenomegaly, small, ascites, upper abdominal varices, recanalized umbilical vein. 9. Colonic diverticulosis without acute diverticulitis. (4) Adnexal mass (5) Recurrent vulvovaginal herpes simplex (6) Hyperkalemia (7) Hypertension (8) Intractable abdominal pain (9) Sick sinus syndrome (10) Fluid overload (11) Substance abuse (12) Pruritus (13) Cholecystitis, acute Assessment & Plan: 69-year-old female with extensive medical history end-stage renal disease on dialysis noncompliant at times history of catheter infections history of cirrhosis presenting with acute cholecystitis. CT reviewed. Patient states that since admission her pain is improved and she is feeling little bit better. Labs are improving. Currently no nausea vomiting fever chills. Tolerating diet. Given patient's comorbidities liver disease cirrhosis will plan for medical management as she is already showing improvement with antibiotics and resuscitation. I do long discussion with the patient regards to her care plan history comorbidities and the morbidity mortality associated potentially with surgical intervention. A cholecystomy can be considered but if able to manage with medical management would be in patient's best interest given her comorbidities. This will allow her time to resuscitate improved optimized and considerations of surgery in the future elective if potential. Continue IV antibiotics per infectious disease Case discussed Continue with diet as tolerated Ultrasound ordered We will follow serial exams and recs thank you improving medical management of acute silvano responsive okay for diet cont abx (14) Weakness (15) HIV disease (16) Epileptic seizure, generalized (17) Open wound of chest wall (18) CHF (congestive heart failure), NYHA class II (19) HCV antibody positive (20) ESRD (end stage renal disease) on dialysis (21) Hypertensive urgency Deon Crowe Jul 01, 2020 14:48
[2020-07-01] MEDS: HydrOXYzine tab 25mg tab ORAL PRN ×2 (14:49→22:42)
--- NOTE | 2020-07-01 15:51 | Nephrology Progress Note ---
Assessment/Plan Problem List: (1) Cocaine abuse (2) ESRD (end stage renal disease) on dialysis (3) Substance abuse (4) Fluid overload (5) HIV disease (6) HCV antibody positive (7) Hypertensive urgency Assessment (1) ESRD (end stage renal disease) on dialysis (2) HIV disease (3) HCV antibody positive (4) Hypertensive urgency (5) Substance abuse (6) Noncompliance (7) Anemia of chronic kidney disease Plan July 01: Patient was dialyzed yesterday. Status quo. Labs reviewed. Next hemodialysis tomorrow. Continue per ID. June 30: Patient seen on dialysis. Tolerating well. Labs reviewed. Continue per consultants. June 29: Status quo. Labs reviewed. Due for dialysis. Continue as is. June 28: Dialyzed yesterday. Next dialysis tomorrow. No labs drawn today. Continue per consultants. June 27: Patient due for dialysis today. Labs reviewed. Blood pressure medication adjusted. Continue per ID and other consultants. June 26: Patient was dialyzed and ultrafiltrate had yesterday. Today's labs reviewed. Will arrange for dialysis again tomorrow. Continue per PMD and consultants. Subjective ROS Limited/Unobtainable: No Constitutional: Reports: malaise Objective Objective Last 24 Hour Vital Signs Date Time Temp Pulse Resp B/P (MAP) Pulse Ox O2 Delivery O2 Flow Rate FiO2 07/01/20 15:19 70 19 135/73 97 07/01/20 14:49 74 19 142/69 95 07/01/20 13:15 142/69 07/01/20 12:00 97.7 74 19 142/69 (93) 95 07/01/20 09:07 77 18 138/77 97 07/01/20 09:00 Room Air 07/01/20 08:37 77 18 153/74 97 07/01/20 08:37 77 153/74 07/01/20 08:00 98.1 77 18 153/74 (100) 97 07/01/20 05:14 139/71 07/01/20 02:48 79 18 139/71 93 07/01/20 02:18 81 18 143/69 93 07/01/20 00:00 98.4 73 16 146/76 (99) 93 06/30/20 21:08 149/77 06/30/20 20:52 Room Air 06/30/20 20:00 98.1 77 16 149/77 (101) 91 06/30/20 18:53 74 18 143/74 96 06/30/20 18:23 74 18 143/74 96 06/30/20 16:00 98.2 74 18 143/74 (97) 96 Intake and Output 06/30/20 07/01/20 19:00 07:00 Intake Total 1210 ml Output Total 2000 ml Balance -790 ml Intake Oral 1100 ml IV Total 110 ml Output Hemodialysis UF 2000 ml # Bowel Movements 1 Current Medications Medications (Trade) Dose Ordered Sig/Rochelle Route PRN Reason Start Time Stop Time Status Last Admin Dose Admin Acetaminophen (Tylenol) 650 mg Q4H PRN ORAL Temp >100.5 06/25/20 20:45 07/25/20 20:44 06/25/20 20:53 Amlodipine Besylate (Norvasc) 10 mg DAILY ORAL 06/25/20 09:00 07/25/20 08:59 07/01/20 08:37 Bupropion HCl (Wellbutrin SR) 150 mg DAILY ORAL 06/25/20 09:00 07/25/20 08:59 07/01/20 08:36 Clonidine HCl (Catapres Tab) 0.1 mg Q4H PRN ORAL bp over 165 syst 06/25/20 10:15 09/23/20 10:14 06/28/20 00:45 Docusate Sodium (Colace) 100 mg BID ORAL 06/25/20 09:00 07/25/20 08:59 07/01/20 08:36 Escitalopram Oxalate (Lexapro) 10 mg DAILY ORAL 06/25/20 09:00 07/25/20 08:59 07/01/20 08:37 Heparin Sodium (Porcine) (Heparin 5000 units/ml) 5,000 units Q8HR SUBQ 06/25/20 09:30 08/09/20 09:29 07/01/20 13:15 Hydralazine HCl (Apresoline) 100 mg EVERY 8 HOURS ORAL 06/28/20 06:00 09/26/20 05:59 07/01/20 13:15 Hydromorphone HCl (Dilaudid) 2 mg Q4H PRN IVP Severe Pain (Pain Scale 7-10) 06/27/20 15:00 07/04/20 14:59 07/01/20 13:15 Hydroxyzine HCl (Atarax) 25 mg THREE TIMES A DAY PRN ORAL Itching 06/25/20 10:00 07/25/20 09:59 07/01/20 14:49 Levothyroxine Sodium (Synthroid) 100 mcg DAILY ORAL 06/29/20 09:00 07/25/20 08:59 07/01/20 08:36 Lorazepam (Ativan) 1 mg DAILY ORAL 06/25/20 09:00 07/02/20 08:59 07/01/20 08:37 Lorazepam (Ativan) 1 mg Q8H PRN ORAL For Anxiety 06/25/20 17:30 07/02/20 17:29 07/01/20 14:49 Ondansetron HCl (Zofran) 4 mg Q6H PRN IVP Nausea & Vomiting 06/25/20 14:00 07/25/20 13:59 06/30/20 08:41 Pantoprazole (Protonix) 40 mg BID ORAL 06/25/20 09:00 07/25/20 08:59 07/01/20 08:36 Patient Own Medication (Patient's Own Med) 1 ea BID ORAL 06/27/20 20:00 07/27/20 19:59 07/01/20 08:37 Patient Own Medication (Patient's Own Med) 1 ea BID ORAL 06/27/20 20:00 07/27/20 19:59 07/01/20 08:38 Patient Own Medication (Patient's Own Med) 1 ea DAILY ORAL 06/27/20 20:00 07/27/20 19:59 07/01/20 08:38 Piperacillin Sod/ Tazobactam Sod 2.25 gm/Dextrose 55 ml @ 110 mls/hr Q8HR IV 06/29/20 22:00 07/06/20 21:59 07/01/20 13:39 Sevelamer Carbonate (Renvela) 1,600 mg THREE TIMES A DAY ORAL 06/27/20 09:00 09/25/20 08:59 07/01/20 12:24 Trazodone HCl (Desyrel) 50 mg BID ORAL 06/25/20 09:00 07/25/20 08:59 06/29/20 17:08 Vancomycin HCl (Vanco pharmacy to dose) 1 ea DAILY PRN MISC Per rx protocol 06/27/20 11:15 07/27/20 11:14 Vancomycin HCl 750 mg/Sodium Chloride 275 ml @ 183.333 mls/hr ONCE ONCE IVPB 07/01/20 21:00 07/01/20 22:29 Laboratory Tests 07/01/20 05:40: Random Vancomycin Level 18.3 Height (Feet): 5 Height (Inches): 4.00 Weight (Pounds): 165 General Appearance: no apparent distress Cardiovascular: normal rate Respiratory/Chest: decreased breath sounds Abdomen: soft Objective No change Jack Pryor MD Jul 01, 2020 15:51
[2020-07-01 16:00] VITALS: BP 128/55
--- NOTE | 2020-07-01 19:16 | NUR ---
NURSE HAND-OFF: Important Events on Shift: dialysis for tomorrow, pain meds Patient Status: stable Diet: renal Pending Orders: n/a Pending Results/Labs:n/a Pending MD notification:n/a Latest Vital Signs: Temperature 97.7 , Pulse 88 , B/P 128 /55 , Respiratory Rate 19 , O2 SAT 95 , Room Air, O2 Flow Rate . Vital Sign Comment: stable Latest Espinoza Fall Score: 85 Fall Risk: High Risk Safety Measures: Call light Within Reach, Bed Alarm Zone 1, Side Rails Side Rails x2, Bed position Low and Locked. Fall Precautions: Yellow Socks Yellow Gown Door Sign Patient Fall Education Report given to MARTIN Mansfield.
--- NOTE | 2020-07-01 19:41 | NUR ---
NURSE NOTES: Patient is awake, alert and verbally responsive. Able to make needs known. Respiration is even and unlabored. Kept clean and comfortable. Provided safe environment. Skin is warm and dry to touch. Refuses to check skin. Iv site noted. Abdomen is soft and non distended. Call light is at bedside. Will continue plan of care.
[2020-07-01 20:00] VITALS: BP 159/72
[2020-07-01] MEDS ORDERED: Vancomycin 750mg/NS 275ml IVPB ONE ×2 (21:00)
[2020-07-02] VITALS: BP 146/77
--- NOTE | 2020-07-02 01:58 | Cardiology Progress Note ---
Subjective DATE OF SERVICE: Jul 01, 2020 Last dialysis was 06/30/20. Abdominal pain improving; tolerating diet BP parameters labile at times, but improving. +cocaine in tox screen on admit. +blood cultures with coag neg staph; IV abx per ID noted Monitor: sinus with episodes of SVT. Objective Last 24 Hour Vital Signs Date Time Temp Pulse Resp B/P (MAP) Pulse Ox O2 Delivery O2 Flow Rate FiO2 07/02/20 00:00 97.9 77 18 146/77 (100) 93 07/01/20 22:42 70 18 160/76 95 07/01/20 21:20 159/72 07/01/20 21:00 Room Air 07/01/20 20:00 99.0 75 18 159/72 (101) 93 07/01/20 16:00 97.7 88 19 128/55 (79) 95 07/01/20 15:19 70 19 135/73 97 07/01/20 14:49 74 19 142/69 95 07/01/20 13:15 142/69 07/01/20 12:00 97.7 74 19 142/69 (93) 95 07/01/20 09:07 77 18 138/77 97 07/01/20 09:00 Room Air 07/01/20 08:37 77 18 153/74 97 07/01/20 08:37 77 153/74 07/01/20 08:00 98.1 77 18 153/74 (100) 97 07/01/20 05:14 139/71 07/01/20 02:48 79 18 139/71 93 07/01/20 02:18 81 18 143/69 93 ROS: unchanged from 06/25/20 HEENT: normal ENT inspection RHYTHM: NSR, PVCs, PACs LUNGS: lungs clear bilaterally, other - left chest subclavian PermVCath CARDIAC: normal rate, regular rhythm, normal S1 and S2 ABDOMEN: normal bowel sounds, non tender, soft, no organomegaly EXTREMITIES: normal range of motion, non-tender, No edema Laboratory Tests Test 07/01/20 05:40 Random Vancomycin Level 18.3 ug/mL Assessment/Plan Assessment/Plan ESRD Gram positive sepsis with bacteremia - possible line infection. Hyperkalemia corrected Abdominal pain; not likely acute cholecystitis based on diagnostic studies Hypertension/HHD Ac/chr diastolic CHF Tachy-alysa syndrome Paroxysmal SVT Cocaine abuse HIV+ Hep C+ HD/UF tomorrow Advance antiHTN meds as needed Avoid BBlockers and clonidine due to potential for bradyarrhythmias Care Center Manager again regarding risk of SCD with cocaine Abx per ID - can DC home after completing IV zosyn. Nam Barnett MD Jul 02, 2020 01:58
[2020-07-02 04:00] VITALS: BP 139/71
[2020-07-02] MEDS: HydrALAZINE 25mg tab ORAL SCH ×3 (05:13→21:19)
[2020-07-02] MEDS: Piperacillin/Tazobactam 2.25 GM in D5W 55 ML IV SCH ×3 (05:14→21:21)
[2020-07-02] MEDS: Heparin 5000 units/ml inj SUBQ SCH ×3 (05:24→21:21)
--- NOTE | 2020-07-02 06:56 | NUR ---
NURSE HAND-OFF: Important Events on Shift:WNL Patient Status: WNL Diet: Renal Pending Orders: Pending Results/Labs: Pending MD notification: Latest Vital Signs: Temperature 97.7 , Pulse 74 , B/P 139 /71 , Respiratory Rate 18 , O2 SAT 93 , Room Air, O2 Flow Rate . Vital Sign Comment: WNL Latest Espinoza Fall Score: 85 Fall Risk: High Risk Safety Measures: Call light Within Reach, Bed Alarm Zone 1, Side Rails Side Rails x2, Bed position Low and Locked. Fall Precautions: Yellow Socks Yellow Gown Door Sign Patient Fall Education Report given to Alexander Cavanaugh.
--- NOTE | 2020-07-02 07:19 | NUR ---
NURSE NOTES: Received report from MARTIN Mansfield. Received pt in bed, in room air, in NAD. Breathing even, unlabored, no complaint of pain, complains of itchiness, will medicate as ordered PRN. Left hand gauge [address], saline locked, pervious. Left chest Port-A-cath in place for HD access noted. Dialysis scheduled for today, RN will call [facility] dialysis nurse and will confirm schedule. Call light within reach, side rails up x2, bed locked, in the lowest position possible. Will continue monitoring pt and following up with the plan of care.
[2020-07-02 08:00] VITALS: BP 152/75
[2020-07-02] MEDS: BuPROPion SR 150mg tab ORAL SCH (08:49)
[2020-07-02] MEDS: Patient's Own Med - Tivicay 50mg ORAL SCH (08:49)
[2020-07-02] MEDS: Patient's Own Med - Ritonavir 100mg ORAL SCH ×2 (08:49→17:17)
[2020-07-02] MEDS: Docusate 100mg cap ORAL SCH ×2 (08:49→17:17)
[2020-07-02] MEDS: TraZODone 50mg tab ORAL SCH ×2 (08:53→17:18)
--- NOTE | 2020-07-02 08:58 | General Progress Note ---
Subjective ROS Limited/Unobtainable: No Constitutional: Reports: malaise, weakness HEENT: Reports: no symptoms Cardiovascular: Reports: no symptoms Respiratory: Reports: no symptoms Gastrointestinal/Abdominal: Reports: abdominal pain Genitourinary: Reports: no symptoms Neurologic/Psychiatric: Reports: anxiety, depressed, emotional problems Endocrine: Reports: no symptoms Hematologic/Lymphatic: Reports: no symptoms Allergies: Coded Allergies: ASPIRIN (Unverified Allergy, Unknown, 01/16/20) IODINE (Verified Allergy, Unknown, 01/07/20) Uncoded Allergies: CONTRAST DYE (Allergy, Unknown, 01/07/20) NSAID (Allergy, Unknown, 04/24/20) All Systems: reviewed and negative except above Subjective stable. no new complaints. no fever or chills. abd pain and anxiety controlled on current rx. Objective Last 24 Hour Vital Signs Date Time Temp Pulse Resp B/P (MAP) Pulse Ox O2 Delivery O2 Flow Rate FiO2 07/02/20 08:53 79 152/75 07/02/20 05:13 139/71 07/02/20 04:00 97.7 74 18 139/71 (93) 93 07/02/20 00:00 97.9 77 18 146/77 (100) 93 07/01/20 22:42 70 18 160/76 95 07/01/20 21:20 159/72 07/01/20 21:00 Room Air 07/01/20 20:00 99.0 75 18 159/72 (101) 93 07/01/20 16:00 97.7 88 19 128/55 (79) 95 07/01/20 15:19 70 19 135/73 97 07/01/20 14:49 74 19 142/69 95 07/01/20 13:15 142/69 07/01/20 12:00 97.7 74 19 142/69 (93) 95 07/01/20 09:07 77 18 138/77 97 07/01/20 09:00 Room Air Intake and Output 07/01/20 07/02/20 19:00 07:00 Intake Total 350 ml 385.000 ml Balance 350 ml 385.000 ml Intake Oral 240 ml IV Total 110 ml 385.000 ml Height (Feet): 5 Height (Inches): 4.00 Weight (Pounds): 165 Objective General Appearance: WD/WN, alert EENT: normal ENT inspection Neck: non-tender, normal alignment Cardiovascular: normal rate, regular rhythm Respiratory/Chest: chest wall non-tender, lungs clear, normal breath sounds, no respiratory distress Abdomen: normal bowel sounds, soft, no organomegaly, no mass, guarding, tender Edema: no edema noted Arm (L), no edema noted Arm (R) 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, alert, oriented x 3, responsive Lymphatic: normal anterior cervical (L), normal anterior cervical (R) Assessment/Plan Problem List: (1) Cocaine abuse ICD Codes: F14.10 - Cocaine abuse, uncomplicated SNOMED: 92392938 (2) Cirrhosis ICD Codes: K74.60 - Unspecified cirrhosis of liver SNOMED: 23371189 Qualifiers: Qualified Codes: K74.60 - Unspecified cirrhosis of liver; R18.8 - Other ascites (3) Cholecystitis, acute ICD Codes: K81.0 - Acute cholecystitis SNOMED: 37851380 (4) HIV disease ICD Codes: B20 - Human immunodeficiency virus [HIV] disease SNOMED: 59869339 (5) Epileptic seizure, generalized ICD Codes: G40.309 - Generalized idiopathic epilepsy and epileptic syndromes, not intractable, without status epilepticus SNOMED: 56166246 (6) CHF (congestive heart failure), NYHA class II ICD Codes: I50.9 - Heart failure, unspecified SNOMED: 553835574, 254889599 (7) HCV antibody positive ICD Codes: R76.8 - Other specified abnormal immunological findings in serum SNOMED: 264684565 (8) ESRD (end stage renal disease) on dialysis ICD Codes: N18.6 - End stage renal disease; Z99.2 - Dependence on renal dialysis SNOMED: 990348271 (9) Hypertensive urgency ICD Codes: I16.0 - Hypertensive urgency SNOMED: 145506300 Status: stable Assessment/Plan: cont iv abx per id serial abd exams pain rx anxiolytics dvt/stress ulcer prophylaxis poor surgical candidate. cont conservative rx HD per renal dc when iv abx completed. refusing snf Michael Peralta MD Jul 02, 2020 08:58
[2020-07-02] MEDS: HydrOXYzine tab 25mg tab ORAL PRN (10:19)
[2020-07-02 12:00] VITALS: BP 123/70
--- NOTE | 2020-07-02 14:20 | Nephrology Progress Note ---
Assessment/Plan Problem List: (1) Cocaine abuse (2) ESRD (end stage renal disease) on dialysis (3) Substance abuse (4) Fluid overload (5) HIV disease (6) HCV antibody positive (7) Hypertensive urgency Assessment (1) ESRD (end stage renal disease) on dialysis (2) HIV disease (3) HCV antibody positive (4) Hypertensive urgency (5) Substance abuse (6) Noncompliance (7) Anemia of chronic kidney disease Plan July 02: Due for dialysis today. Continue per consultants. Stable from renal standpoint of view. July 01: Patient was dialyzed yesterday. Status quo. Labs reviewed. Next hemodialysis tomorrow. Continue per ID. June 30: Patient seen on dialysis. Tolerating well. Labs reviewed. Continue per consultants. June 29: Status quo. Labs reviewed. Due for dialysis. Continue as is. June 28: Dialyzed yesterday. Next dialysis tomorrow. No labs drawn today. Continue per consultants. June 27: Patient due for dialysis today. Labs reviewed. Blood pressure medication adjusted. Continue per ID and other consultants. June 26: Patient was dialyzed and ultrafiltrate had yesterday. Today's labs reviewed. Will arrange for dialysis again tomorrow. Continue per PMD and consultants. Subjective ROS Limited/Unobtainable: No Constitutional: Reports: malaise Objective Objective Last 24 Hour Vital Signs Date Time Temp Pulse Resp B/P (MAP) Pulse Ox O2 Delivery O2 Flow Rate FiO2 07/02/20 13:18 123/70 07/02/20 12:00 97.0 82 18 123/70 (87) 95 07/02/20 09:00 Room Air 07/02/20 08:53 79 152/75 07/02/20 08:00 98.3 79 19 152/75 (100) 95 07/02/20 05:13 139/71 07/02/20 04:00 97.7 74 18 139/71 (93) 93 07/02/20 00:00 97.9 77 18 146/77 (100) 93 07/01/20 22:42 70 18 160/76 95 07/01/20 21:20 159/72 07/01/20 21:00 Room Air 07/01/20 20:00 99.0 75 18 159/72 (101) 93 07/01/20 16:00 97.7 88 19 128/55 (79) 95 07/01/20 15:19 70 19 135/73 97 07/01/20 14:49 74 19 142/69 95 Intake and Output 07/01/20 07/02/20 19:00 07:00 Intake Total 350 ml 385.000 ml Balance 350 ml 385.000 ml Intake Oral 240 ml IV Total 110 ml 385.000 ml Current Medications Medications (Trade) Dose Ordered Sig/Rochelle Route PRN Reason Start Time Stop Time Status Last Admin Dose Admin Acetaminophen (Tylenol) 650 mg Q4H PRN ORAL Temp >100.5 06/25/20 20:45 07/25/20 20:44 06/25/20 20:53 Amlodipine Besylate (Norvasc) 10 mg DAILY ORAL 06/25/20 09:00 07/25/20 08:59 07/01/20 08:37 Bupropion HCl (Wellbutrin SR) 150 mg DAILY ORAL 06/25/20 09:00 07/25/20 08:59 07/02/20 08:49 Clonidine HCl (Catapres Tab) 0.1 mg Q4H PRN ORAL bp over 165 syst 06/25/20 10:15 09/23/20 10:14 06/28/20 00:45 Docusate Sodium (Colace) 100 mg BID ORAL 06/25/20 09:00 07/25/20 08:59 07/02/20 08:49 Escitalopram Oxalate (Lexapro) 10 mg DAILY ORAL 06/25/20 09:00 07/25/20 08:59 07/02/20 08:49 Heparin Sodium (Porcine) (Heparin 5000 units/ml) 5,000 units Q8HR SUBQ 06/25/20 09:30 08/09/20 09:29 07/02/20 13:19 Hydralazine HCl (Apresoline) 100 mg EVERY 8 HOURS ORAL 06/28/20 06:00 09/26/20 05:59 07/02/20 05:13 Hydromorphone HCl (Dilaudid) 2 mg Q4H PRN IVP Severe Pain (Pain Scale 7-10) 06/27/20 15:00 07/04/20 14:59 07/02/20 13:19 Hydroxyzine HCl (Atarax) 25 mg THREE TIMES A DAY PRN ORAL Itching 06/25/20 10:00 07/25/20 09:59 07/02/20 10:19 Levothyroxine Sodium (Synthroid) 100 mcg DAILY ORAL 06/29/20 09:00 07/25/20 08:59 07/02/20 08:49 Lorazepam (Ativan) 1 mg Q8H PRN ORAL For Anxiety 06/25/20 17:30 07/02/20 17:29 07/01/20 22:42 Ondansetron HCl (Zofran) 4 mg Q6H PRN IVP Nausea & Vomiting 06/25/20 14:00 07/25/20 13:59 06/30/20 08:41 Pantoprazole (Protonix) 40 mg BID ORAL 06/25/20 09:00 07/25/20 08:59 07/02/20 08:49 Patient Own Medication (Patient's Own Med) 1 ea BID ORAL 06/27/20 20:00 07/27/20 19:59 07/02/20 08:49 Patient Own Medication (Patient's Own Med) 1 ea BID ORAL 06/27/20 20:00 07/27/20 19:59 07/02/20 08:49 Patient Own Medication (Patient's Own Med) 1 ea DAILY ORAL 06/27/20 20:00 07/27/20 19:59 07/02/20 08:49 Piperacillin Sod/ Tazobactam Sod 2.25 gm/Dextrose 55 ml @ 110 mls/hr Q8HR IV 06/29/20 22:00 07/06/20 21:59 07/02/20 13:49 Sevelamer Carbonate (Renvela) 1,600 mg THREE TIMES A DAY ORAL 06/27/20 09:00 09/25/20 08:59 07/02/20 13:19 Trazodone HCl (Desyrel) 50 mg BID ORAL 06/25/20 09:00 07/25/20 08:59 06/29/20 17:08 Vancomycin HCl ([facility] pharmacy to dose) 1 ea DAILY PRN MISC Per rx protocol 06/27/20 11:15 07/27/20 11:14 Height (Feet): 5 Height (Inches): 4.00 Weight (Pounds): 165 General Appearance: no apparent distress Objective No change Jack Pryor MD Jul 02, 2020 14:20
--- NOTE | 2020-07-02 14:26 | NUR ---
NURSE NOTES: Patient noted to have lumps around xyphoid process area. RN assessed and noted that lump is not firm but no pain complaints from patient when touched. RN made Dr. Peralta aware
--- NOTE | 2020-07-02 14:55 | Surgery Progress Note ---
Surgery Progress Note Subjective Symptoms: improved, tolerating diet, passing flatus, BM Objective Last 24 Hour Vital Signs Date Time Temp Pulse Resp B/P (MAP) Pulse Ox O2 Delivery O2 Flow Rate FiO2 07/02/20 13:18 123/70 07/02/20 12:00 97.0 82 18 123/70 (87) 95 07/02/20 09:00 Room Air 07/02/20 08:53 79 152/75 07/02/20 08:00 98.3 79 19 152/75 (100) 95 07/02/20 05:13 139/71 07/02/20 04:00 97.7 74 18 139/71 (93) 93 07/02/20 00:00 97.9 77 18 146/77 (100) 93 07/01/20 22:42 70 18 160/76 95 07/01/20 21:20 159/72 07/01/20 21:00 Room Air 07/01/20 20:00 99.0 75 18 159/72 (101) 93 07/01/20 16:00 97.7 88 19 128/55 (79) 95 07/01/20 15:19 70 19 135/73 97 I&O Intake and Output 07/01/20 07/02/20 19:00 07:00 Intake Total 350 ml 385.000 ml Balance 350 ml 385.000 ml Intake Oral 240 ml IV Total 110 ml 385.000 ml Cardiovascular: RSR Respiratory: clear Abdomen: soft, non-tender, present bowel sounds Extremities: no edema, no tenderness, no cyanosis Plan Problems: (1) Cocaine abuse (2) Anxiety (3) Cirrhosis Assessment & Plan: ABDOMEN: Liver: Cirrhosis. Gallbladder and bile ducts: Possible acute cholecystitis with mildly distended gallbladder, pericholecystic fluid, gallstones, mild wall thickening. Correlate with presentation. No ductal dilation. Pancreas: Unremarkable. No ductal dilation. Spleen: Similar splenomegaly 14.9 cm AP dimension. Adrenals: Unremarkable. No mass. Kidneys and ureters: Multiple bilateral renal probably benign hypodensities measure up to 1.7 cm on the right. Partly calcified left inferior renal pole structure, potentially a peripherally calcified cyst. No hydronephrosis. Stomach and bowel: Colonic diverticulosis without acute diverticulitis. No obstruction. PELVIS: Appendix: No findings to suggest acute appendicitis. Bladder: Urinary bladder wall thickening. No stones. Reproductive: Indeterminate potentially multiloculated right adnexal intervally increased in size, now 6.6 x 4.7 right 4.9 cm cystic structure. ABDOMEN and PELVIS: Intraperitoneal space: Small nonloculated low-attenuation ascites. No free air. Bones/joints: No acute fracture. No dislocation. Soft tissues: Anasarca. Vasculature: Numerous upper abdominal varices. Potentially recanalized umbilical vein. No abdominal aortic aneurysm. Lymph nodes: Unremarkable. No enlarged lymph nodes. IMPRESSION: 1. Study limited due to lack of IV contrast. 2. Possible acute cholecystitis with mildly distended gallbladder, pericholecystic fluid, gallstones, mild wall thickening. Correlate with presentation. 3. Urinary bladder wall thickening could be incidental, due to high outlet pressures, or could represent cystitis. 4. Mosaic lung attenuation could represent small airways disease. 5. Small right low-attenuation layering pleural effusion with passive atelectasis. 6. Recommend pelvic MRI to further characterize right adnexal cystic structure; neoplasm not excluded. 7. Probably benign renal findings above, and follow-up in 6 months to document stability of calcified left inferior renal pole structure. 8. Cirrhosis, splenomegaly, small, ascites, upper abdominal varices, recanalized umbilical vein. 9. Colonic diverticulosis without acute diverticulitis. (4) Adnexal mass (5) Recurrent vulvovaginal herpes simplex (6) Hyperkalemia (7) Hypertension (8) Intractable abdominal pain (9) Sick sinus syndrome (10) Fluid overload (11) Substance abuse (12) Pruritus (13) Cholecystitis, acute Assessment & Plan: 69-year-old female with extensive medical history end-stage renal disease on dialysis noncompliant at times history of catheter infections history of cirrhosis presenting with acute cholecystitis. CT reviewed. Patient states that since admission her pain is improved and she is feeling little bit better. Labs are improving. Currently no nausea vomiting fever chills. Tolerating diet. Given patient's comorbidities liver disease cirrhosis will plan for medical management as she is already showing improvement with antibiotics and resuscitation. I do long discussion with the patient regards to her care plan history comorbidities and the morbidity mortality associated potentially with surgical intervention. A cholecystomy can be considered but if able to manage with me dical management would be in patient's best interest given her comorbidities. This will allow her time to resuscitate improved optimized and considerations of surgery in the future elective if potential. Continue IV antibiotics per infectious disease Case discussed Continue with diet as tolerated Ultrasound ordered We will follow serial exams and recs thank you improving medical management of acute silvano responsive okay for diet cont abx DC planning (14) Weakness (15) HIV disease (16) Epileptic seizure, generalized (17) Open wound of chest wall (18) CHF (congestive heart failure), NYHA class II (19) HCV antibody positive (20) ESRD (end stage renal disease) on dialysis (21) Hypertensive urgency Deon Crowe Jul 02, 2020 14:55
[2020-07-02 16:00] VITALS: BP 157/62
--- NOTE | 2020-07-02 19:31 | NUR ---
NURSE HAND-OFF: Important Events on Shift:HD 2L Patient Status: stable Diet: renal Pending Orders: breast US Pending Results/Labs:n/a Pending MD notification:n/a Latest Vital Signs: Temperature 98.1 , Pulse 76 , B/P 157 /62 , Respiratory Rate 18 , O2 SAT 97 , Room Air, O2 Flow Rate . Vital Sign Comment: stable Latest Espinoza Fall Score: 85 Fall Risk: High Risk Safety Measures: Call light Within Reach, Bed Alarm Zone 1, Side Rails Side Rails x2, Bed position Low and Locked. Fall Precautions: Yellow Socks Yellow Gown Door Sign Patient Fall Education Report given to MARTIN Mcginnis.
--- NOTE | 2020-07-02 19:35 | NUR ---
NURSE NOTES: Received report from MARTIN Sandoval. Received pt in bed, on room air, in NAD. Breathing even, unlabored, no complaints of pain, complains of itchiness. Left hand gauge [address], saline locked. Left chest HD access noted. Dialysis completed today this evening and 2 L were removed. Call light is within reach, side rails up x2, bed locked, in the lowest position, bed alarm on and asked pt to call for assistance, she verbalized understanding. Will continue monitoring pt and follow up with the plan of care.
[2020-07-02 20:00] VITALS: BP 158/91
--- NOTE | 2020-07-02 22:00 | Cardiology Progress Note ---
Subjective DATE OF SERVICE: Jul 02, 2020 Last dialysis was 06/30/20. Abdominal pain improving; tolerating diet BP parameters labile at times, but improving. +cocaine in tox screen on admit. +blood cultures with coag neg staph; IV abx per ID noted Monitor: sinus with episodes of SVT. Objective Last 24 Hour Vital Signs Date Time Temp Pulse Resp B/P (MAP) Pulse Ox O2 Delivery O2 Flow Rate FiO2 07/02/20 21:51 98.1 07/02/20 21:19 158/91 07/02/20 16:00 98.1 76 18 157/62 (93) 97 07/02/20 13:18 123/70 07/02/20 12:00 97.0 82 18 123/70 (87) 95 07/02/20 09:00 Room Air 07/02/20 08:53 79 152/75 07/02/20 08:00 98.3 79 19 152/75 (100) 95 07/02/20 05:13 139/71 07/02/20 04:00 97.7 74 18 139/71 (93) 93 07/02/20 00:00 97.9 77 18 146/77 (100) 93 07/01/20 22:42 70 18 160/76 95 ROS: unchanged from 06/25/20 HEENT: normal ENT inspection RHYTHM: NSR, PVCs, PACs LUNGS: lungs clear bilaterally, other - left chest subclavian PermVCath CARDIAC: normal rate, regular rhythm, normal S1 and S2 ABDOMEN: normal bowel sounds, non tender, soft, no organomegaly EXTREMITIES: normal range of motion, non-tender, No edema Assessment/Plan Assessment/Plan ESRD Gram positive sepsis with bacteremia - possible line infection. Hyperkalemia corrected Abdominal pain; not likely acute cholecystitis based on diagnostic studies Hypertension/HHD Ac/chr diastolic CHF Tachy-alysa syndrome Paroxysmal SVT Cocaine abuse HIV+ Hep C+ HD/UF today Advance antiHTN meds as needed Avoid BBlockers and clonidine due to potential for bradyarrhythmias [employer] again regarding risk of SCD with cocaine Abx per ID - can DC home after completing IV zosyn. Nam Barnett MD Jul 02, 2020 22:00
[2020-07-03] VITALS: BP 135/67
[2020-07-03] MEDS: LORazepam 1mg tab ORAL PRN ×3 (03:59→23:15)
[2020-07-03 04:00] VITALS: BP 157/80
[2020-07-03] MEDS: HydrALAZINE 25mg tab ORAL SCH ×3 (05:27→21:42)
[2020-07-03] MEDS: Piperacillin/Tazobactam 2.25 GM in D5W 55 ML IV SCH ×3 (05:28→21:42)
[2020-07-03] MEDS: Heparin 5000 units/ml inj SUBQ SCH ×3 (05:28→21:43)
--- NOTE | 2020-07-03 07:45 | NUR ---
NURSE NOTES: Pt lying in bed w/bed in lowest position and call light within reach. Pt A&Ox4, VSS, and in no apparent distress. IV site intact/asymptomatic and skin intact. Will continue to monitor.
[2020-07-03 08:00] VITALS: BP 135/84
--- NOTE | 2020-07-03 08:04 | NUR ---
NURSE HAND-OFF: Important Events on Shift:HD 2L removed on previous shift 07/02 evening Patient Status: stable Diet: renal, pain management and anxiety management Pending Orders: breast US Pending Results/Labs:n/a Pending MD notification:n/a Latest Vital Signs: Temperature 98.1 , Pulse 76 , B/P 157 /62 , Respiratory Rate 18 , O2 SAT 97 , Room Air, O2 Flow Rate . Vital Sign Comment: stable Latest Espinoza Fall Score: 85 Fall Risk: High Risk Safety Measures: Call light Within Reach, Bed Alarm Zone 1, Side Rails Side Rails x2, Bed position Low and Locked. Fall Precautions: Yellow Socks Yellow Gown Door Sign Patient Fall Education Report given to Dawna SALAZAR
--- NOTE | 2020-07-03 08:48 | Nephrology Progress Note ---
Assessment/Plan Problem List: (1) Cocaine abuse (2) ESRD (end stage renal disease) on dialysis (3) Substance abuse (4) Fluid overload (5) HIV disease (6) HCV antibody positive (7) Hypertensive urgency Assessment (1) ESRD (end stage renal disease) on dialysis (2) HIV disease (3) HCV antibody positive (4) Hypertensive urgency (5) Substance abuse (6) Noncompliance (7) Anemia of chronic kidney disease Plan July 03: Last dialyzed yesterday. Will go back on Friday dialysis while in-house. Next dialysis July 04 tomorrow. Will check labs. July 02: Due for dialysis today. Continue per consultants. Stable from renal standpoint of view. July 01: Patient was dialyzed yesterday. Status quo. Labs reviewed. Next hemodialysis tomorrow. Continue per ID. June 30: Patient seen on dialysis. Tolerating well. Labs reviewed. Continue per consultants. June 29: Status quo. Labs reviewed. Due for dialysis. Continue as is. June 28: Dialyzed yesterday. Next dialysis tomorrow. No labs drawn today. Continue per consultants. June 27: Patient due for dialysis today. Labs reviewed. Blood pressure medication adjusted. Continue per ID and other consultants. June 26: Patient was dialyzed and ultrafiltrate had yesterday. Today's labs reviewed. Will arrange for dialysis again tomorrow. Continue per PMD and consultants. Subjective ROS Limited/Unobtainable: No Constitutional: Reports: malaise Objective Objective Last 24 Hour Vital Signs Date Time Temp Pulse Resp B/P (MAP) Pulse Ox O2 Delivery O2 Flow Rate FiO2 07/03/20 05:57 98.6 07/03/20 05:27 157/80 07/03/20 04:29 70 17 157/80 93 07/03/20 04:00 98.6 70 17 157/80 (105) 07/03/20 03:59 74 18 158/91 07/03/20 01:55 98.1 07/03/20 00:00 98.2 71 17 135/67 (89) 07/02/20 21:51 98.1 07/02/20 21:19 158/91 07/02/20 21:00 Room Air 07/02/20 20:00 98.1 74 18 158/91 (113) 20 16:00 98.1 76 18 157/62 (93) 97 07/02/20 13:18 123/70 07/02/20 12:00 97.0 82 18 123/70 (87) 95 07/02/20 09:00 Room Air 07/02/20 08:53 79 152/75 Intake and Output 07/02/20 07/03/20 19:00 07:00 Intake Total 150 ml 120 ml Balance 150 ml 120 ml Intake Oral 150 ml 120 ml # Voids 4 # Bowel Movements 1 Current Medications Medications (Trade) Dose Ordered Sig/Rochelle Route PRN Reason Start Time Stop Time Status Last Admin Dose Admin Acetaminophen (Tylenol) 650 mg Q4H PRN ORAL Temp >100.5 06/25/20 20:45 07/25/20 20:44 06/25/20 20:53 Amlodipine Besylate (Norvasc) 10 mg DAILY ORAL 06/25/20 09:00 07/25/20 08:59 07/01/20 08:37 Bupropion HCl (Wellbutrin SR) 150 mg DAILY ORAL 06/25/20 09:00 07/25/20 08:59 07/02/20 08:49 Clonidine HCl (Catapres Tab) 0.1 mg Q4H PRN ORAL bp over 165 syst 06/25/20 10:15 09/23/20 10:14 06/28/20 00:45 Docusate Sodium (Colace) 100 mg BID ORAL 06/25/20 09:00 07/25/20 08:59 07/02/20 17:17 Escitalopram Oxalate (Lexapro) 10 mg DAILY ORAL 06/25/20 09:00 07/25/20 08:59 07/02/20 08:49 Heparin Sodium (Porcine) (Heparin 5000 units/ml) 5,000 units Q8HR SUBQ 06/25/20 09:30 08/09/20 09:29 07/03/20 05:28 Hydralazine HCl (Apresoline) 100 mg EVERY 8 HOURS ORAL 06/28/20 06:00 09/26/20 05:59 07/03/20 05:27 Hydromorphone HCl (Dilaudid) 2 mg Q4H PRN IVP Severe Pain (Pain Scale 7-10) 06/27/20 15:00 07/04/20 14:59 07/03/20 05:27 Hydroxyzine HCl (Atarax) 25 mg THREE TIMES A DAY PRN ORAL Itching 06/25/20 10:00 07/25/20 09:59 07/02/20 10:19 Levothyroxine Sodium (Synthroid) 100 mcg DAILY ORAL 06/29/20 09:00 07/25/20 08:59 07/02/20 08:49 Lorazepam (Ativan) 1 mg DAILY ORAL 07/03/20 09:00 07/10/20 08:59 Lorazepam (Ativan) 1 mg Q8HR PRN ORAL For Anxiety 07/03/20 00:15 07/10/20 00:14 07/03/20 03:59 Ondansetron HCl (Zofran) 4 mg Q6H PRN IVP Nausea & Vomiting 06/25/20 14:00 07/25/20 13:59 07/03/20 01:38 Pantoprazole (Protonix) 40 mg BID ORAL 06/25/20 09:00 07/25/20 08:59 07/02/20 17:17 Patient Own Medication (Patient's Own Med) 1 ea BID ORAL 06/27/20 20:00 07/27/20 19:59 07/02/20 17:17 Patient Own Medication (Patient's Own Med) 1 ea BID ORAL 06/27/20 20:00 07/27/20 19:59 07/02/20 17:17 Patient Own Medication (Patient's Own Med) 1 ea DAILY ORAL 06/27/20 20:00 07/27/20 19:59 07/02/20 08:49 Piperacillin Sod/ Tazobactam Sod 2.25 gm/Dextrose 55 ml @ 110 mls/hr Q8HR IV 06/29/20 22:00 07/06/20 21:59 07/03/20 05:28 Sevelamer Carbonate (Renvela) 1,600 mg THREE TIMES A DAY ORAL 06/27/20 09:00 09/25/20 08:59 07/02/20 17:17 Trazodone HCl (Desyrel) 50 mg BID ORAL 06/25/20 09:00 07/25/20 08:59 06/29/20 17:08 Vancomycin HCl ([facility] pharmacy to dose) 1 ea DAILY PRN MISC Per rx protocol 06/27/20 11:15 07/27/20 11:14 Height (Feet): 5 Height (Inches): 4.00 Weight (Pounds): 165 General Appearance: no apparent distress Cardiovascular: normal rate Respiratory/Chest: decreased breath sounds Abdomen: soft Objective No change Jack Pryor MD Jul 03, 2020 08:48
[2020-07-03] MEDS: LORazepam 1mg tab ORAL SCH (09:00)
[2020-07-03] MEDS: TraZODone 50mg tab ORAL SCH ×2 (11:32→17:48)
[2020-07-03] MEDS: Docusate 100mg cap ORAL SCH ×2 (11:32→17:48)
[2020-07-03] MEDS: BuPROPion SR 150mg tab ORAL SCH (11:33)
[2020-07-03] MEDS: Patient's Own Med - Ritonavir 100mg ORAL SCH ×2 (11:35→17:50)
[2020-07-03] MEDS: Patient's Own Med - Tivicay 50mg ORAL SCH (11:36)
--- NOTE | 2020-07-03 11:52 | Infectious Diseases Prog Note ---
Assessment/Plan Assessment/Plan antibiotics : vancomycin iv, zosyn, ARV A 1. cholecystitis 2. hypertension 3. HIV 4. renal failure on HD 5. cirrhosis 6. coag neg staph sepsis P 1. continue iv vancomycin 3 more days 2. continue zosyn 1 more day 3. will follow up cultures Subjective ROS Limited/Unobtainable: Yes Allergies: Coded Allergies: ASPIRIN (Unverified Allergy, Unknown, 01/16/20) IODINE (Verified Allergy, Unknown, 01/07/20) Uncoded Allergies: CONTRAST DYE (Allergy, Unknown, 01/07/20) NSAID (Allergy, Unknown, 04/24/20) Objective Last 24 Hour Vital Signs Date Time Temp Pulse Resp B/P (MAP) Pulse Ox O2 Delivery O2 Flow Rate FiO2 07/03/20 11:33 78 135/84 07/03/20 08:00 97.6 78 18 135/84 (101) 96 07/03/20 05:57 98.6 07/03/20 05:27 157/80 07/03/20 04:29 70 17 157/80 93 07/03/20 04:00 98.6 70 17 157/80 (105) 93 07/03/20 03:59 74 18 158/91 93 07/03/20 01:55 98.1 07/03/20 00:00 98.2 71 17 135/67 (89) 93 07/02/20 21:51 98.1 07/02/20 21:19 158/91 07/02/20 21:00 Room Air 07/02/20 20:00 98.1 74 18 158/91 (113) 93 07/02/20 16:00 98.1 76 18 157/62 (93) 97 07/02/20 13:18 123/70 07/02/20 12:00 97.0 82 18 123/70 (87) 95 Height (Feet): 5 Height (Inches): 4.00 Weight (Pounds): 165 Respiratory/Chest: lungs clear Cardiovascular: normal rate, regular rhythm, no gallop/murmur Abdomen: soft, non tender Extremities: no edema, other - left subclavian catheter Laboratory Tests Test 07/03/20 08:50 Random Vancomycin Level 15.3 ug/mL Current Medications Medications (Trade) Dose Ordered Sig/Rochelle Route PRN Reason Start Time Stop Time Status Last Admin Dose Admin Acetaminophen (Tylenol) 650 mg Q4H PRN ORAL Temp >100.5 06/25/20 20:45 07/25/20 20:44 06/25/20 20:53 Amlodipine Besylate (Norvasc) 10 mg DAILY ORAL 06/25/20 09:00 07/25/20 08:59 07/03/20 11:33 Bupropion HCl (Wellbutrin SR) 150 mg DAILY ORAL 06/25/20 09:00 07/25/20 08:59 07/03/20 11:33 Clonidine HCl (Catapres Tab) 0.1 mg Q4H PRN ORAL bp over 165 syst 06/25/20 10:15 09/23/20 10:14 06/28/20 00:45 Docusate Sodium (Colace) 100 mg BID ORAL 06/25/20 09:00 07/25/20 08:59 07/03/20 11:32 Escitalopram Oxalate (Lexapro) 10 mg DAILY ORAL 06/25/20 09:00 07/25/20 08:59 07/03/20 11:32 Heparin Sodium (Porcine) (Heparin 5000 units/ml) 5,000 units Q8HR SUBQ 06/25/20 09:30 08/09/20 09:29 07/03/20 05:28 Hydralazine HCl (Apresoline) 100 mg EVERY 8 HOURS ORAL 06/28/20 06:00 09/26/20 05:59 07/03/20 05:27 Hydromorphone HCl (Dilaudid) 2 mg Q4H PRN IVP Severe Pain (Pain Scale 7-10) 06/27/20 15:00 07/04/20 14:59 07/03/20 11:34 Hydroxyzine HCl (Atarax) 25 mg THREE TIMES A DAY PRN ORAL Itching 06/25/20 10:00 07/25/20 09:59 07/02/20 10:19 Levothyroxine Sodium (Synthroid) 100 mcg DAILY ORAL 06/29/20 09:00 07/25/20 08:59 07/03/20 11:32 Lorazepam (Ativan) 1 mg DAILY ORAL 07/03/20 09:00 07/10/20 08:59 Lorazepam (Ativan) 1 mg Q8HR PRN ORAL For Anxiety 07/03/20 00:15 07/10/20 00:14 07/03/20 03:59 Ondansetron HCl (Zofran) 4 mg Q6H PRN IVP Nausea & Vomiting 06/25/20 14:00 07/25/20 13:59 07/03/20 01:38 Pantoprazole (Protonix) 40 mg BID ORAL 06/25/20 09:00 07/25/20 08:59 07/03/20 11:32 Patient Own Medication (Patient's Own Med) 1 ea BID ORAL 06/27/20 20:00 07/27/20 19:59 07/03/20 11:35 Patient Own Medication (Patient's Own Med) 1 ea BID ORAL 06/27/20 20:00 07/27/20 19:59 07/03/20 11:35 Patient Own Medication (Patient's Own Med) 1 ea DAILY ORAL 06/27/20 20:00 07/27/20 19:59 07/03/20 11:36 Piperacillin Sod/ Tazobactam Sod 2.25 gm/Dextrose 55 ml @ 110 mls/hr Q8HR IV 06/29/20 22:00 07/06/20 21:59 07/03/20 05:28 Sevelamer Carbonate (Renvela) 1,600 mg THREE TIMES A DAY ORAL 06/27/20 09:00 09/25/20 08:59 07/03/20 11:33 Trazodone HCl (Desyrel) 50 mg BID ORAL 06/25/20 09:00 07/25/20 08:59 07/03/20 11:32 Vancomycin HCl ([facility] pharmacy to dose) 1 ea DAILY PRN MISC Per rx protocol 06/27/20 11:15 07/27/20 11:14 Vancomycin HCl 500 mg/Dextrose 110 ml @ 110 mls/hr ONCE IVPB 07/03/20 21:00 07/03/20 23:00 Elvis Garibay MD Jul 03, 2020 11:52
[2020-07-03 12:00] VITALS: BP 158/72
--- NOTE | 2020-07-03 13:29 | Surgery Progress Note ---
Surgery Progress Note Subjective Additional Comments subxyphond mobile cyst noted no signs of active infection states has been growing US pending Objective Last 24 Hour Vital Signs Date Time Temp Pulse Resp B/P (MAP) Pulse Ox O2 Delivery O2 Flow Rate FiO2 07/03/20 12:00 97.9 77 18 158/72 (100) 96 07/03/20 11:33 78 135/84 07/03/20 08:00 97.6 78 18 135/84 (101) 96 07/03/20 05:57 98.6 07/03/20 05:27 157/80 07/03/20 04:29 70 17 157/80 93 07/03/20 04:00 98.6 70 17 157/80 (105) 93 07/03/20 03:59 74 18 158/91 93 07/03/20 01:55 98.1 07/03/20 00:00 98.2 71 17 135/67 (89) 93 07/02/20 21:51 98.1 07/02/20 21:19 158/91 07/02/20 21:00 Room Air 07/02/20 20:00 98.1 74 18 158/91 (113) 93 07/02/20 16:00 98.1 76 18 157/62 (93) 97 I&O Intake and Output 07/02/20 07/03/20 19:00 07:00 Intake Total 150 ml 120 ml Balance 150 ml 120 ml Intake Oral 150 ml 120 ml # Voids 4 # Bowel Movements 1 Cardiovascular: RSR Respiratory: clear Abdomen: soft, non-tender, present bowel sounds Extremities: no edema, no tenderness, no cyanosis Laboratory Tests Test 07/03/20 08:50 Random Vancomycin Level 15.3 ug/mL Plan Problems: (1) Cocaine abuse (2) Anxiety (3) Cirrhosis Assessment & Plan: ABDOMEN: Liver: Cirrhosis. Gallbladder and bile ducts: Possible acute cholecystitis with mildly distended gallbladder, pericholecystic fluid, gallstones, mild wall thickening. Correlate with presentation. No ductal dilation. Pancreas: Unremarkable. No ductal dilation. Spleen: Similar splenomegaly 14.9 cm AP dimension. Adrenals: Unremarkable. No mass. Kidneys and ureters: Multiple bilateral renal probably benign hypodensities measure up to 1.7 cm on the right. Partly calcified left inferior renal pole structure, potentially a peripherally calcified cyst. No hydronephrosis. Stomach and bowel: Colonic diverticulosis without acute diverticulitis. No obstruction. PELVIS: Appendix: No findings to suggest acute appendicitis. Bladder: Urinary bladder wall thickening. No stones. Reproductive: Indeterminate potentially multiloculated right adnexal intervally increased in size, now 6.6 x 4.7 right 4.9 cm cystic structure. ABDOMEN and PELVIS: Intraperitoneal space: Small nonloculated low-attenuation ascites. No free air. Bones/joints: No acute fracture. No dislocation. Soft tissues: Anasarca. Vasculature: Numerous upper abdominal varices. Potentially recanalized umbilical vein. No abdominal aortic aneurysm. Lymph nodes: Unremarkable. No enlarged lymph nodes. IMPRESSION: 1. Study limited due to lack of IV contrast. 2. Possible acute cholecystitis with mildly distended gallbladder, pericholecystic fluid, gallstones, mild wall thickening. Correlate with presentation. 3. Urinary bladder wall thickening could be incidental, due to high outlet pressures, or could represent cystitis. 4. Mosaic lung attenuation could represent small airways disease. 5. Small right low-attenuation layering pleural effusion with passive atelectasis. 6. Recommend pelvic MRI to further characterize right adnexal cystic structure; neoplasm not excluded. 7. Probably benign renal findings above, and follow-up in 6 months to document stability of calcified left inferior renal pole structure. 8. Cirrhosis, splenomegaly, small, ascites, upper abdominal varices, recanalized umbilical vein. 9. Colonic diverticulosis without acute diverticulitis. (4) Adnexal mass (5) Recurrent vulvovaginal herpes simplex (6) Hyperkalemia (7) Hypertension (8) Intractable abdominal pain (9) Sick sinus syndrome (10) Fluid overload (11) Substance abuse (12) Pruritus (13) Cholecystitis, acute Assessment & Plan: 69-year-old female with extensive medical history end-stage renal disease on dialysis noncompliant at times history of catheter infections history of cirrhosis presenting with acute cholecystitis. CT reviewed. Patient states that since admission her pain is improved and she is feeling little bit better. Labs are improving. Currently no nausea vomiting fever chills. Tolerating diet. Given patient's comorbidities liver disease cirrhosis will plan for medical management as she is already showing improvement with antibiotics and resuscitation. I do long discussion with the patient regards to her care plan history comorbidities and the morbidity mortality associated potentially with surgical intervention. A cholecystomy can be considered but if able to manage with medical management would be in patient's best interest given her comorbidities. This will allow her time to resuscitate improved optimized and considerations of surgery in the future elective if potential. Continue IV antibiotics per infectious disease Case discussed Continue with diet as tolerated Ultrasound ordered We will follow serial exams and recs thank you improving medical management of acute silvano responsive okay for diet cont abx DC planning subxyphond mobile cyst noted no signs of active infection states has been growing US pending (14) Weakness (15) HIV disease (16) Epileptic seizure, generalized (17) Open wound of chest wall (18) CHF (congestive heart failure), NYHA class II (19) HCV antibody positive (20) ESRD (end stage renal disease) on dialysis (21) Hypertensive urgency Deon Crowe Jul 03, 2020 13:29
--- NOTE | 2020-07-03 15:03 | Diagnostic Imaging Report ---
Indication: Palpable left chest/breast abnormality Technique: Grayscale and duplex images of palpable superficial anterior left chest mass Comparison: none Findings: Heterogeneous hypoechoic mass is seen within the subcutaneous fat to the left of the xiphoid process, corresponding to the palpable abnormality. This measures 1.8 x 0.8 x 2.1 centimeters. There is a suggestion of a small 5 mm satellite lesion. No flow is demonstrated on Doppler Impression: Avascular 1.8 x 0.8 x 2.1 cm mass the left the xiphoid process, corresponding to palpable abnormality. Differential considerations include complex subcutaneous cyst. Abscess possible, less likely given lack of surrounding hyperemia
[2020-07-03 16:00] VITALS: BP 137/69
--- NOTE | 2020-07-03 17:06 | NUR ---
CASE MANAGEMENT:REVIEW SI;ACUTE CHOLECYSTITIS. CIRRHOSIS. HIV. ESRD ON HD. 98.6 78 18 157/80 93% ON RA IS;ATIVAN PO Q8 PRN ZOSYN IV Q8 HYDRALAZINE PO Q8 DILAUDID IV Q4 PRN PROTONIX PO Q12 HEPARIN SQ Q8 MED SURG STATUS DCP;FROM HOME PLAN; DC AFTER HD ON 07/04/20
--- NOTE | 2020-07-03 17:27 | General Progress Note ---
Subjective ROS Limited/Unobtainable: No Constitutional: Reports: malaise, weakness HEENT: Reports: no symptoms Cardiovascular: Reports: chest pain Respiratory: Reports: cough Gastrointestinal/Abdominal: Reports: no symptoms Genitourinary: Reports: no symptoms Neurologic/Psychiatric: Reports: anxiety, depressed, emotional problems Endocrine: Reports: no symptoms Hematologic/Lymphatic: Reports: no symptoms Allergies: Coded Allergies: ASPIRIN (Unverified Allergy, Unknown, 01/16/20) IODINE (Verified Allergy, Unknown, 01/07/20) Uncoded Allergies: CONTRAST DYE (Allergy, Unknown, 01/07/20) NSAID (Allergy, Unknown, 04/24/20) All Systems: reviewed and negative except above Subjective no new complaints. no fever or chills. no sob. pain controlled. on anxiolytics remains on iv abx. Objective Last 24 Hour Vital Signs Date Time Temp Pulse Resp B/P (MAP) Pulse Ox O2 Delivery O2 Flow Rate FiO2 07/03/20 16:00 98.3 75 18 137/69 (91) 95 07/03/20 14:39 75 18 137/96 95 07/03/20 14:09 70 18 143/73 94 07/03/20 14:02 143/73 07/03/20 12:00 97.9 77 18 158/72 (100) 96 07/03/20 11:33 78 135/84 07/03/20 08:00 97.6 78 18 135/84 (101) 96 07/03/20 05:57 98.6 07/03/20 05:27 157/80 07/03/20 04:29 70 17 157/80 93 07/03/20 04:00 98.6 70 17 157/80 (105) 93 07/03/20 03:59 74 18 158/91 93 07/03/20 01:55 98.1 07/03/20 00:00 98.2 71 17 135/67 (89) 93 07/02/20 21:51 98.1 07/02/20 21:19 158/91 07/02/20 21:00 Room Air 07/02/20 20:00 98.1 74 18 158/91 (113) 93 Intake and Output 07/02/20 07/03/20 19:00 07:00 Intake Total 150 ml 120 ml Balance 150 ml 120 ml Intake Oral 150 ml 120 ml # Voids 4 # Bowel Movements 1 Laboratory Tests 07/03/20 08:50: Random Vancomycin Level 15.3 Height (Feet): 5 Height (Inches): 4.00 Weight (Pounds): 165 Objective General Appearance: WD/WN, alert EENT: normal ENT inspection Neck: non-tender, normal alignment Cardiovascular: normal rate, regular rhythm Respiratory/Chest: chest wall non-tender, lungs clear, normal breath sounds, no respiratory distress Abdomen: normal bowel sounds, soft, no organomegaly, no mass, guarding, tender Edema: no edema noted Arm (L), no edema noted Arm (R) Neurologic: pay per click strategist II-XII grossly normal, alert, oriented x 3, responsive Lymphatic: normal anterior cervical (L), normal anterior cervical (R) Assessment/Plan Problem List: (1) Cocaine abuse ICD Codes: F14.10 - Cocaine abuse, uncomplicated SNOMED: 72865249 (2) Cirrhosis ICD Codes: K74.60 - Unspecified cirrhosis of liver SNOMED: 04565425 Qualifiers: Qualified Codes: K74.60 - Unspecified cirrhosis of liver; R18.8 - Other ascites (3) Cholecystitis, acute ICD Codes: K81.0 - Acute cholecystitis SNOMED: 09512732 (4) HIV disease ICD Codes: B20 - Human immunodeficiency virus [HIV] disease SNOMED: 80393008 (5) Epileptic seizure, generalized ICD Codes: G40.309 - Generalized idiopathic epilepsy and epileptic syndromes, not intractable, without status epilepticus SNOMED: 09180948 (6) CHF (congestive heart failure), NYHA class II ICD Codes: I50.9 - Heart failure, unspecified SNOMED: 389425318, 687619967 (7) HCV antibody positive ICD Codes: R76.8 - Other specified abnormal immunological findings in serum SNOMED: 751001846 (8) ESRD (end stage renal disease) on dialysis ICD Codes: N18.6 - End stage renal disease; Z99.2 - Dependence on renal dialysis SNOMED: 401561352 (9) Hypertensive urgency ICD Codes: I16.0 - Hypertensive urgency SNOMED: 128477004 Status: stable Assessment/Plan: cont iv abx per id serial abd exams pain rx anxiolytics dvt/stress ulcer prophylaxis poor surgical candidate. cont conservative rx HD per renal dc when iv abx completed. refusing snf Michael Peralta MD Jul 03, 2020 17:27
[2020-07-03 20:00] VITALS: BP 149/73
--- NOTE | 2020-07-03 20:00 | NUR ---
NURSE NOTES: Received patient awake in bed, no s/s of acute distress, AOx4. IV access patent, dressing reinforced. Bed low and locked, patient wearing non slip socks. All patient requests attended to at this time.
--- NOTE | 2020-07-03 20:17 | NUR ---
NURSE HAND-OFF: Important Events on Shift: Pt stable throughout shift; administered meds for pain; called [facility] for tomorrow's HD. Patient Status: Stable Diet: Renal Pending Orders: HD tomorrow Pending Results/Labs: None Pending MD notification: None Latest Vital Signs: Temperature 98.3 , Pulse 75 , B/P 137 /69 , Respiratory Rate 18 , O2 SAT 95 , Room Air, O2 Flow Rate . Vital Sign Comment: Stable Latest Espinoza Fall Score: 85 Fall Risk: High Risk Safety Measures: Call light Within Reach, Bed Alarm Zone 1, Side Rails Side Rails x2, Bed position Low and Locked. Fall Precautions: Yellow Socks Yellow Gown Door Sign Patient Fall Education Report given to MARTIN Pierre.
[2020-07-03] MEDS ORDERED: Vancomycin 500mg/D5W 100ml IVPB SCH ×2 (21:00)
[2020-07-03] MEDS: HydrOXYzine tab 25mg tab ORAL PRN (23:22)
--- NOTE | 2020-07-04 01:20 | Cardiology Progress Note ---
Subjective DATE OF SERVICE: Jul 03, 2020 Last dialysis was 06/30/20. Abdominal pain improving; tolerating diet BP parameters labile at times, but improving. +cocaine in tox screen on admit. +blood cultures with coag neg staph; IV abx per ID noted Monitor: sinus with rare episodes of SVT. No pauses noted. Objective Last 24 Hour Vital Signs Date Time Temp Pulse Resp B/P (MAP) Pulse Ox O2 Delivery O2 Flow Rate FiO2 07/03/20 23:45 75 16 137/69 93 07/03/20 23:38 Room Air 07/03/20 23:15 75 16 137/69 93 07/03/20 22:17 98.3 07/03/20 21:42 137/69 07/03/20 20:00 98.3 75 16 149/73 (98) 93 07/03/20 18:27 98.3 07/03/20 16:00 98.3 75 18 137/69 (91) 95 07/03/20 14:39 75 18 137/96 95 07/03/20 14:09 70 18 143/73 94 07/03/20 14:02 143/73 07/03/20 12:00 97.9 77 18 158/72 (100) 96 07/03/20 11:33 78 135/84 07/03/20 09:00 Room Air 07/03/20 08:00 97.6 78 18 135/84 (101) 96 07/03/20 05:57 98.6 07/03/20 05:27 157/80 07/03/20 04:29 70 17 157/80 93 07/03/20 04:00 98.6 70 17 157/80 (105) 93 07/03/20 03:59 74 18 158/91 93 07/03/20 01:55 98.1 ROS: unchanged from 06/25/20 HEENT: normal ENT inspection RHYTHM: NSR, PVCs, PACs LUNGS: lungs clear bilaterally, other - left chest subclavian PermVCath CARDIAC: normal rate, regular rhythm, normal S1 and S2 ABDOMEN: normal bowel sounds, non tender, soft, no organomegaly EXTREMITIES: normal range of motion, non-tender, No edema Laboratory Tests Test 07/03/20 08:50 Random Vancomycin Level 15.3 ug/mL Assessment/Plan Assessment/Plan ESRD Gram positive sepsis with bacteremia - possible line infection. Hyperkalemia corrected Abdominal pain; not likely acute cholecystitis based on diagnostic studies Hypertension/HHD Ac/chr diastolic CHF Tachy-alysa syndrome Paroxysmal SVT Cocaine abuse HIV+ Hep C+ HD/UF tomorrow maintain current antiHTN med, with prn doses as needed Avoid BBlockers and clonidine due to potential for bradyarrhythmias [employer] Agent again regarding risk of SCD with cocaine Abx per ID - can DC home after completing IV zosyn tomorrow Nam Barnett MD Jul 04, 2020 01:20
[2020-07-04 04:00] VITALS: BP 144/72
[2020-07-04] MEDS: Piperacillin/Tazobactam 2.25 GM in D5W 55 ML IV SCH (05:24)
[2020-07-04] MEDS: HydrALAZINE 25mg tab ORAL SCH (05:43)
[2020-07-04] MEDS: Heparin 5000 units/ml inj SUBQ SCH (05:43)
--- NOTE | 2020-07-04 07:23 | NUR ---
HAND-OFF: Report given to MARTIN Toney.
--- NOTE | 2020-07-04 07:46 | NUR ---
NURSE NOTES: Called [facility] to confirm HD today; was told nurse would come to dialyze patient this morning. Will continue to monitor.
[2020-07-04 08:00] VITALS: BP 122/74
[2020-07-04] MEDS: Docusate 100mg cap ORAL SCH (08:10)
[2020-07-04] MEDS: TraZODone 50mg tab ORAL SCH (08:11)
[2020-07-04] MEDS: BuPROPion SR 150mg tab ORAL SCH (08:12)
[2020-07-04] MEDS: Patient's Own Med - Ritonavir 100mg ORAL SCH (08:15)
[2020-07-04] MEDS: Patient's Own Med - Tivicay 50mg ORAL SCH (08:16)
[2020-07-04] MEDS: LORazepam 1mg tab ORAL SCH (08:17)
--- NOTE | 2020-07-04 09:29 | Discharge Summary ---
DATE OF ADMISSION: 06/25/2020 DATE OF DISCHARGE: 07/04/2020 ADMISSION DIAGNOSES: 1. Cholecystitis. 2. End-stage renal disease. 3. History of hepatitis C. 4. Cirrhosis. 5. Hypertension. 6. COPD. 7. History of substance abuse. 8. GERD. 9. History of bradycardia. DISCHARGE DIAGNOSES: 1. Cholecystitis. 2. End-stage renal disease. 3. History of hepatitis C. 4. Cirrhosis. 5. Hypertension. 6. COPD. 7. History of substance abuse. 8. GERD. 9. History of bradycardia. HOSPITAL COURSE: Patient is a 69-year-old female that was admitted with complaints of abdominal pain. She was diagnosed with cholecystitis. She was seen by Surgery and GI. She received intravenous antibiotics. She was felt to be very high risk for surgery. It was recommended by consultants that the patient be treated conservatively with medical management. She received broad-spectrum IV antibiotics. She completed her full course while in-house. Her abdominal pain resolved. She had no fevers or chills. On discharge, she was stable. She will be discharged home. She completed all of her antibiotic therapy while in-house. She is asked to return for any worsening pain, fevers, chills, abdominal pain, nausea, or vomiting. DISCHARGE MEDICATIONS: Please see discharge medication list for discharge medications. DIET: Cardiac renal diet. ACTIVITIES: Ad-arie. Michael Peralta M.D. DR: SEBASTIAN JOB#: [id number] CC:
--- NOTE | 2020-07-04 09:45 | NUR ---
NURSE NOTES: Notified Dr. Peralta of blood in pt's stool when she wiped; no new orders given. Will continue to monitor.
--- NOTE | 2020-07-04 09:48 | Nephrology Progress Note ---
Assessment/Plan Problem List: (1) Cocaine abuse (2) ESRD (end stage renal disease) on dialysis (3) Substance abuse (4) Fluid overload (5) HIV disease (6) HCV antibody positive (7) Hypertensive urgency Assessment (1) ESRD (end stage renal disease) on dialysis (2) HIV disease (3) HCV antibody positive (4) Hypertensive urgency (5) Substance abuse (6) Noncompliance (7) Anemia of chronic kidney disease Plan July 04: Patient currently on dialysis. Tolerating well. As per PMD patient is due for discharge after dialysis and continue outpatient dialysis Friday. Will continue vancomycin per ID during outpatient hemodialysis. July 03: Last dialyzed yesterday. Will go back on Friday dialysis while in-house. Next dialysis July 04 tomorrow. Will check labs. July 02: Due for dialysis today. Continue per consultants. Stable from renal standpoint of view. July 01: Patient was dialyzed yesterday. Status quo. Labs reviewed. Next hemodialysis tomorrow. Continue per ID. June 30: Patient seen on dialysis. Tolerating well. Labs reviewed. Continue per consultants. June 29: Status quo. Labs reviewed. Due for dialysis. Continue as is. June 28: Dialyzed yesterday. Next dialysis tomorrow. No labs drawn today. Continue per consultants. June 27: Patient due for dialysis today. Labs reviewed. Blood pressure medication adjusted. Continue per ID and other consultants. June 26: Patient was dialyzed and ultrafiltrate had yesterday. Today's labs reviewed. Will arrange for dialysis again tomorrow. Continue per PMD and consultants. Subjective ROS Limited/Unobtainable: No Objective Objective Last 24 Hour Vital Signs Date Time Temp Pulse Resp B/P (MAP) Pulse Ox O2 Delivery O2 Flow Rate FiO2 07/04/20 09:39 74 15 147/77 95 07/04/20 09:00 74 147/77 07/04/20 08:17 78 18 122/74 97 07/04/20 08:00 97.7 78 16 122/74 (90) 97 07/04/20 05:43 144/72 07/04/20 04:53 98.3 07/04/20 04:00 98.3 75 16 144/72 (96) 93 07/03/20 23:45 75 16 137/69 93 07/03/20 23:38 Room Air 07/03/20 23:15 75 16 137/69 93 07/03/20 22:17 98.3 07/03/20 21:42 137/69 07/03/20 20:00 98.3 75 16 149/73 (98) 93 07/03/20 18:27 98.3 07/03/20 16:00 98.3 75 18 137/69 (91) 95 07/03/20 14:39 75 18 137/96 95 07/03/20 14:09 70 18 143/73 94 07/03/20 14:02 143/73 07/03/20 12:00 97.9 77 18 158/72 (100) 96 07/03/20 11:33 78 135/84 Intake and Output 07/03/20 07/04/20 19:00 07:00 Intake Total 240 ml Balance 240 ml Intake Oral 240 ml No blood drawn yet Height (Feet): 5 Height (Inches): 4.00 Weight (Pounds): 165 General Appearance: no apparent distress Objective No change Jack Pryor MD Jul 04, 2020 09:48
[2020-07-04 11:03] LABS: BASOPHILS % (AUTO) 2.5 % (0.0-2.0); EOSINOPHILS % (AUTO) 7.5 % (0.0-3.0); HEMATOCRIT 30.1 % (37.0-47.0); HEMOGLOBIN 9.6 G/DL (12.0-16.0); LYMPHOCYTES % (AUTO) 16.8 % (20.0-45.0); MEAN CORPUSCULAR VOLUME 90 FL (80-99); MONOCYTES % (AUTO) 12.4 % (1.0-10.0); NEUTROPHILS % (AUTO) 60.8 % (45.0-75.0); PLATELET COUNT 148 K/UL (150-450); RED BLOOD COUNT 3.34 M/UL (4.20-5.40); WHITE BLOOD COUNT 3.6 K/UL (4.8-10.8)
[2020-07-04 11:23] LABS: ALANINE AMINOTRANSFERASE < 6 U/L (12-78); ALBUMIN 2.8 G/DL (3.4-5.0); ALBUMIN/GLOBULIN RATIO 0.4 (1.0-2.7); ALKALINE PHOSPHATASE 73 U/L (46-116); ANION GAP 4 mmol/L (5-15); ASPARTATE AMINO TRANSFERASE 26 U/L (15-37); BILIRUBIN,TOTAL 0.3 MG/DL (0.2-1.0); BLOOD UREA NITROGEN 13 mg/dL (7-18); CALCIUM 8.8 MG/DL (8.5-10.1); CARBON DIOXIDE 30 MMOL/L (21-32); CHLORIDE 97 MMOL/L (98-107); CREATININE 5.2 MG/DL (0.55-1.30); PHOSPHORUS 2.9 MG/DL (2.5-4.9); POTASSIUM 3.9 MMOL/L (3.5-5.1); SODIUM 131 MMOL/L (136-145)
--- NOTE | 2020-07-04 12:01 | Infectious Diseases Prog Note ---
Assessment/Plan Assessment/Plan antibiotics : vancomycin iv, zosyn, ARV A 1. cholecystitis 2. hypertension 3. HIV 4. renal failure on HD 5. cirrhosis 6. coag neg staph sepsis P 1. continue iv vancomycin 2 more days 2. d/c zosyn 3. will follow up cultures Subjective Constitutional: Denies: fever, chills Respiratory: Denies: shortness of breath, dry cough Gastrointestinal/Abdominal: Denies: nausea, vomiting, diarrhea Musculoskeletal: Reports: pain Allergies: Coded Allergies: ASPIRIN (Unverified Allergy, Unknown, 01/16/20) IODINE (Verified Allergy, Unknown, 01/07/20) Uncoded Allergies: CONTRAST DYE (Allergy, Unknown, 01/07/20) NSAID (Allergy, Unknown, 04/24/20) Objective Last 24 Hour Vital Signs Date Time Temp Pulse Resp B/P (MAP) Pulse Ox O2 Delivery O2 Flow Rate FiO2 07/04/20 09:39 74 15 147/77 95 07/04/20 09:00 74 147/77 07/04/20 09:00 Room Air 07/04/20 08:17 78 18 122/74 97 07/04/20 08:00 97.7 78 16 122/74 (90) 97 07/04/20 05:43 144/72 07/04/20 04:53 98.3 07/04/20 04:00 98.3 75 16 144/72 (96) 93 07/03/20 23:45 75 16 137/69 93 07/03/20 23:38 Room Air 07/03/20 23:15 75 16 137/69 93 07/03/20 22:17 98.3 07/03/20 21:42 137/69 07/03/20 20:00 98.3 75 16 149/73 (98) 93 07/03/20 18:27 98.3 07/03/20 16:00 98.3 75 18 137/69 (91) 95 07/03/20 14:39 75 18 137/96 95 07/03/20 14:09 70 18 143/73 94 07/03/20 14:02 143/73 07/03/20 12:00 97.9 77 18 158/72 (100) 96 Height (Feet): 5 Height (Inches): 4.00 Weight (Pounds): 165 Respiratory/Chest: lungs clear Cardiovascular: normal rate, regular rhythm, no gallop/murmur Abdomen: soft, non tender Extremities: no edema, other - Left subclavian catheter Laboratory Tests Test 07/04/20 10:15 White Blood Count 3.6 K/UL (4.8-10.8) L Red Blood Count 3.34 M/UL (4.20-5.40) L Hemoglobin 9.6 G/DL (12.0-16.0) L Hematocrit 30.1 % (37.0-47.0) L Mean Corpuscular Volume 90 FL (80-99) Mean Corpuscular Hemoglobin 28.7 PG (27.0-31.0) Mean Corpuscular Hemoglobin Concent 31.8 G/DL (32.0-36.0) L Red Cell Distribution Width 17.0 % (11.6-14.8) H Platelet Count 148 K/UL (150-450) L Mean Platelet Volume 7.0 FL (6.5-10.1) Neutrophils (%) (Auto) 60.8 % (45.0-75.0) Lymphocytes (%) (Auto) 16.8 % (20.0-45.0) L Monocytes (%) (Auto) 12.4 % (1.0-10.0) H Eosinophils (%) (Auto) 7.5 % (0.0-3.0) H Basophils (%) (Auto) 2.5 % (0.0-2.0) H Sodium Level 131 MMOL/L (136-145) L Potassium Level 3.9 MMOL/L (3.5-5.1) Chloride Level 97 MMOL/L (98-107) L Carbon Dioxide Level 30 MMOL/L (21-32) Anion Gap 4 mmol/L (5-15) L Blood Urea Nitrogen 13 mg/dL (7-18) Creatinine 5.2 MG/DL (0.55-1.30) H Estimat Glomerular Filtration Rate 9.9 mL/min (>60) Glucose Level 102 MG/DL (74-106) Calcium Level 8.8 MG/DL (8.5-10.1) Phosphorus Level 2.9 MG/DL (2.5-4.9) Total Bilirubin 0.3 MG/DL (0.2-1.0) Aspartate Amino Transf (AST/SGOT) 26 U/L (15-37) Alanine Aminotransferase (ALT/SGPT) < 6 U/L (12-78) L Alkaline Phosphatase 73 U/L (46-116) C-Reactive Protein, Quantitative < 0.4 mg/dL (0.00-0.90) Pro-B-Type Natriuretic Peptide > 55606 pg/mL (0-125) H Total Protein 9.3 G/DL (6.4-8.2) H Albumin 2.8 G/DL (3.4-5.0) L Globulin 6.5 g/dL Albumin/Globulin Ratio 0.4 (1.0-2.7) L Current Medications Medications (Trade) Dose Ordered Sig/Rochelle Route PRN Reason Start Time Stop Time Status Last Admin Dose Admin Acetaminophen (Tylenol) 650 mg Q4H PRN ORAL Temp >100.5 06/25/20 20:45 07/25/20 20:44 06/25/20 20:53 Amlodipine Besylate (Norvasc) 10 mg DAILY ORAL 06/25/20 09:00 07/25/20 08:59 07/03/20 11:33 Bupropion HCl (Wellbutrin SR) 150 mg DAILY ORAL 06/25/20 09:00 07/25/20 08:59 07/04/20 08:12 Clonidine HCl (Catapres Tab) 0.1 mg Q4H PRN ORAL bp over 165 syst 06/25/20 10:15 09/23/20 10:14 06/28/20 00:45 Docusate Sodium (Colace) 100 mg BID ORAL 06/25/20 09:00 07/25/20 08:59 07/04/20 08:10 Escitalopram Oxalate (Lexapro) 10 mg DAILY ORAL 06/25/20 09:00 07/25/20 08:59 07/04/20 08:10 Heparin Sodium (Porcine) (Heparin 5000 units/ml) 5,000 units Q8HR SUBQ 06/25/20 09:30 08/09/20 09:29 07/03/20 21:43 Hydralazine HCl (Apresoline) 100 mg EVERY 8 HOURS ORAL 06/28/20 06:00 09/26/20 05:59 07/03/20 21:42 Hydromorphone HCl (Dilaudid) 2 mg Q4H PRN IVP Severe Pain (Pain Scale 7-10) 06/27/20 15:00 07/04/20 14:59 07/04/20 04:23 Hydroxyzine HCl (Atarax) 25 mg THREE TIMES A DAY PRN ORAL Itching 06/25/20 10:00 07/25/20 09:59 07/03/20 23:22 Levothyroxine Sodium (Synthroid) 100 mcg DAILY ORAL 06/29/20 09:00 07/25/20 08:59 07/04/20 08:11 Lorazepam (Ativan) 1 mg DAILY ORAL 07/03/20 09:00 07/10/20 08:59 07/04/20 08:17 Lorazepam (Ativan) 1 mg Q8HR PRN ORAL For Anxiety 07/03/20 00:15 07/10/20 00:14 07/03/20 23:15 Ondansetron HCl (Zofran) 4 mg Q6H PRN IVP Nausea & Vomiting 06/25/20 14:00 07/25/20 13:59 07/03/20 01:38 Pantoprazole (Protonix) 40 mg BID ORAL 06/25/20 09:00 07/25/20 08:59 07/04/20 08:12 Patient Own Medication (Patient's Own Med) 1 ea BID ORAL 06/27/20 20:00 07/27/20 19:59 07/04/20 08:14 Patient Own Medication (Patient's Own Med) 1 ea BID ORAL 06/27/20 20:00 07/27/20 19:59 07/04/20 08:15 Patient Own Medication (Patient's Own Med) 1 ea DAILY ORAL 06/27/20 20:00 07/27/20 19:59 07/04/20 08:16 Piperacillin Sod/ Tazobactam Sod 2.25 gm/Dextrose 55 ml @ 110 mls/hr Q8HR IV 06/29/20 22:00 07/06/20 21:59 07/04/20 05:24 Sevelamer Carbonate (Renvela) 1,600 mg THREE TIMES A DAY ORAL 06/27/20 09:00 09/25/20 08:59 07/04/20 08:11 Trazodone HCl (Desyrel) 50 mg BID ORAL 06/25/20 09:00 07/25/20 08:59 07/04/20 08:11 Vancomycin HCl (Vanco pharmacy to dose) 1 ea DAILY PRN MISC Per rx protocol 06/27/20 11:15 07/27/20 11:14 Elvis Garibay MD Jul 04, 2020 12:01
--- NOTE | 2020-07-04 12:43 | Cardiology Progress Note ---
Subjective DATE OF SERVICE: Jul 04, 2020 Completed dialysis today. Abdominal pain improving; tolerating diet BP parameters overall stabilized. +cocaine in tox screen on admit. +blood cultures with coag neg staph; IV abx per ID noted Monitor: sinus with rare episodes of SVT. No pauses noted. Objective Last 24 Hour Vital Signs Date Time Temp Pulse Resp B/P (MAP) Pulse Ox O2 Delivery O2 Flow Rate FiO2 07/04/20 09:39 74 15 147/77 95 07/04/20 09:00 74 147/77 07/04/20 09:00 Room Air 07/04/20 08:17 78 18 122/74 97 07/04/20 08:00 97.7 78 16 122/74 (90) 97 07/04/20 05:43 144/72 07/04/20 04:53 98.3 07/04/20 04:00 98.3 75 16 144/72 (96) 93 07/03/20 23:45 75 16 137/69 93 07/03/20 23:38 Room Air 07/03/20 23:15 75 16 137/69 93 07/03/20 22:17 98.3 07/03/20 21:42 137/69 07/03/20 20:00 98.3 75 16 149/73 (98) 93 07/03/20 18:27 98.3 07/03/20 16:00 98.3 75 18 137/69 (91) 95 07/03/20 14:39 75 18 137/96 95 07/03/20 14:09 70 18 143/73 94 07/03/20 14:02 143/73 ROS: unchanged from 06/25/20 HEENT: normal ENT inspection RHYTHM: NSR, PVCs, PACs LUNGS: lungs clear bilaterally, other - left chest subclavian PermVCath CARDIAC: normal rate, regular rhythm, normal S1 and S2 ABDOMEN: normal bowel sounds, non tender, soft, no organomegaly EXTREMITIES: normal range of motion, non-tender, No edema Laboratory Tests Test 07/04/20 10:15 White Blood Count 3.6 K/UL (4.8-10.8) L Red Blood Count 3.34 M/UL (4.20-5.40) L Hemoglobin 9.6 G/DL (12.0-16.0) L Hematocrit 30.1 % (37.0-47.0) L Mean Corpuscular Volume 90 FL (80-99) Mean Corpuscular Hemoglobin 28.7 PG (27.0-31.0) Mean Corpuscular Hemoglobin Concent 31.8 G/DL (32.0-36.0) L Red Cell Distribution Width 17.0 % (11.6-14.8) H Platelet Count 148 K/UL (150-450) L Mean Platelet Volume 7.0 FL (6.5-10.1) Neutrophils (%) (Auto) 60.8 % (45.0-75.0) Lymphocytes (%) (Auto) 16.8 % (20.0-45.0) L Monocytes (%) (Auto) 12.4 % (1.0-10.0) H Eosinophils (%) (Auto) 7.5 % (0.0-3.0) H Basophils (%) (Auto) 2.5 % (0.0-2.0) H Sodium Level 131 MMOL/L (136-145) L Potassium Level 3.9 MMOL/L (3.5-5.1) Chloride Level 97 MMOL/L (98-107) L Carbon Dioxide Level 30 MMOL/L (21-32) Anion Gap 4 mmol/L (5-15) L Blood Urea Nitrogen 13 mg/dL (7-18) Creatinine 5.2 MG/DL (0.55-1.30) H Estimat Glomerular Filtration Rate 9.9 mL/min (>60) Glucose Level 102 MG/DL (74-106) Calcium Level 8.8 MG/DL (8.5-10.1) Phosphorus Level 2.9 MG/DL (2.5-4.9) Total Bilirubin 0.3 MG/DL (0.2-1.0) Aspartate Amino Transf (AST/SGOT) 26 U/L (15-37) Alanine Aminotransferase (ALT/SGPT) < 6 U/L (12-78) L Alkaline Phosphatase 73 U/L (46-116) C-Reactive Protein, Quantitative < 0.4 mg/dL (0.00-0.90) Pro-B-Type Natriuretic Peptide > 94804 pg/mL (0-125) H Total Protein 9.3 G/DL (6.4-8.2) H Albumin 2.8 G/DL (3.4-5.0) L Globulin 6.5 g/dL Albumin/Globulin Ratio 0.4 (1.0-2.7) L Assessment/Plan Assessment/Plan ESRD Gram positive sepsis with bacteremia - possible line infection. Hyperkalemia corrected Abdominal pain; not likely acute cholecystitis based on diagnostic studies Hypertension/HHD Ac/chr diastolic CHF Tachy-alysa syndrome Paroxysmal SVT Cocaine abuse HIV+ Hep C+ HD/UF t//sat as outpt maintain current antiHTN meds upon dischg Avoid BBlockers and clonidine due to potential for bradyarrhythmias Counselled regarding risk of SCD with cocaine Abx with dialysis x 2 days. Nam Barnett MD Jul 04, 2020 12:42
[2020-07-04 13:10] VITALS: BP 151/74
--- NOTE | 2020-07-04 15:53 | NUR ---
NURSE NOTES: Pt D/C'd home via ambulance in stable condition and w/all belongings/home meds accounted for. Pt refused for me to take pictures of sacral redness before D/C. D/C summary provided and informed pt to f/u w/Dr. Peralta 07/19 at 1 pm.
--- NOTE | 2020-07-04 16:23 | Surgery Progress Note ---
Surgery Progress Note Subjective Symptoms: improved, tolerating diet, passing flatus, BM Objective Last 24 Hour Vital Signs Date Time Temp Pulse Resp B/P (MAP) Pulse Ox O2 Delivery O2 Flow Rate FiO2 07/04/20 13:10 97.7 71 18 151/74 (99) 95 07/04/20 09:39 74 15 147/77 95 07/04/20 09:00 74 147/77 07/04/20 09:00 Room Air 07/04/20 08:17 78 18 122/74 97 07/04/20 08:00 97.7 78 16 122/74 (90) 97 07/04/20 05:43 144/72 07/04/20 04:53 98.3 07/04/20 04:00 98.3 75 16 144/72 (96) 93 07/03/20 23:45 75 16 137/69 93 07/03/20 23:38 Room Air 07/03/20 23:15 75 16 137/69 93 07/03/20 22:17 98.3 07/03/20 21:42 137/69 07/03/20 20:00 98.3 75 16 149/73 (98) 93 07/03/20 18:27 98.3 I&O Intake and Output 07/03/20 07/04/20 19:00 07:00 Intake Total 240 ml Balance 240 ml Intake Oral 240 ml Cardiovascular: RSR Respiratory: clear Abdomen: soft, non-tender, present bowel sounds Extremities: no edema, no tenderness, no cyanosis Laboratory Tests Test 07/04/20 10:15 White Blood Count 3.6 K/UL (4.8-10.8) L Red Blood Count 3.34 M/UL (4.20-5.40) L Hemoglobin 9.6 G/DL (12.0-16.0) L Hematocrit 30.1 % (37.0-47.0) L Mean Corpuscular Volume 90 FL (80-99) Mean Corpuscular Hemoglobin 28.7 PG (27.0-31.0) Mean Corpuscular Hemoglobin Concent 31.8 G/DL (32.0-36.0) L Red Cell Distribution Width 17.0 % (11.6-14.8) H Platelet Count 148 K/UL (150-450) L Mean Platelet Volume 7.0 FL (6.5-10.1) Neutrophils (%) (Auto) 60.8 % (45.0-75.0) Lymphocytes (%) (Auto) 16.8 % (20.0-45.0) L Monocytes (%) (Auto) 12.4 % (1.0-10.0) H Eosinophils (%) (Auto) 7.5 % (0.0-3.0) H Basophils (%) (Auto) 2.5 % (0.0-2.0) H Sodium Level 131 MMOL/L (136-145) L Potassium Level 3.9 MMOL/L (3.5-5.1) Chloride Level 97 MMOL/L (98-107) L Carbon Dioxide Level 30 MMOL/L (21-32) Anion Gap 4 mmol/L (5-15) L Blood Urea Nitrogen 13 mg/dL (7-18) Creatinine 5.2 MG/DL (0.55-1.30) H Estimat Glomerular Filtration Rate 9.9 mL/min (>60) Glucose Level 102 MG/DL (74-106) Calcium Level 8.8 MG/DL (8.5-10.1) Phosphorus Level 2.9 MG/DL (2.5-4.9) Total Bilirubin 0.3 MG/DL (0.2-1.0) Aspartate Amino Transf (AST/SGOT) 26 U/L (15-37) Alanine Aminotransferase (ALT/SGPT) < 6 U/L (12-78) L Alkaline Phosphatase 73 U/L (46-116) C-Reactive Protein, Quantitative < 0.4 mg/dL (0.00-0.90) Pro-B-Type Natriuretic Peptide > 29389 pg/mL (0-125) H Total Protein 9.3 G/DL (6.4-8.2) H Albumin 2.8 G/DL (3.4-5.0) L Globulin 6.5 g/dL Albumin/Globulin Ratio 0.4 (1.0-2.7) L Plan Problems: (1) Cocaine abuse (2) Anxiety (3) Cirrhosis Assessment & Plan: ABDOMEN: Liver: Cirrhosis. Gallbladder and bile ducts: Possible acute cholecystitis with mildly distended gallbladder, pericholecystic fluid, gallstones, mild wall thickening. Correlate with presentation. No ductal dilation. Pancreas: Unremarkable. No ductal dilation. Spleen: Similar splenomegaly 14.9 cm AP dimension. Adrenals: Unremarkable. No mass. Kidneys and ureters: Multiple bilateral renal probably benign hypodensities measure up to 1.7 cm on the right. Partly calcified left inferior renal pole structure, potentially a peripherally calcified cyst. No hydronephrosis. Stomach and bowel: Colonic diverticulosis without acute diverticulitis. No obstruction. PELVIS: Appendix: No findings to suggest acute appendicitis. Bladder: Urinary bladder wall thickening. No stones. Reproductive: Indeterminate potentially multiloculated right adnexal intervally increased in size, now 6.6 x 4.7 right 4.9 cm cystic structure. ABDOMEN and PELVIS: Intraperitoneal space: Small nonloculated low-attenuation ascites. No free air. Bones/joints: No acute fracture. No dislocation. Soft tissues: Anasarca. Vasculature: Numerous upper abdominal varices. Potentially recanalized umbilical vein. No abdominal aortic aneurysm. Lymph nodes: Unremarkable. No enlarged lymph nodes. IMPRESSION: 1. Study limited due to lack of IV contrast. 2. Possible acute cholecystitis with mildly distended gallbladder, pericholecystic fluid, gallstones, mild wall thickening. Correlate with presentation. 3. Urinary bladder wall thickening could be incidental, due to high outlet pressures, or could represent cystitis. 4. Mosaic lung attenuation could represent small airways disease. 5. Small right low-attenuation layering pleural effusion with passive atelectasis. 6. Recommend pelvic MRI to further characterize right adnexal cystic structure; neoplasm not excluded. 7. Probably benign renal findings above, and follow-up in 6 months to document stability of calcified left inferior renal pole structure. 8. Cirrhosis, splenomegaly, small, ascites, upper abdominal varices, recanalized umbilical vein. 9. Colonic diverticulosis without acute diverticulitis. (4) Adnexal mass (5) Recurrent vulvovaginal herpes simplex (6) Hyperkalemia (7) Hypertension (8) Intractable abdominal pain (9) Sick sinus syndrome (10) Fluid overload (11) Substance abuse (12) Pruritus (13) Cholecystitis, acute Assessment & Plan: 69-year-old female with extensive medical history end-stage renal disease on dialysis noncompliant at times history of catheter infections history of cirrhosis presenting with acute cholecystitis. CT reviewed. Patient states that since admission her pain is improved and she is feeling little bit better. Labs are improving. Currently no nausea vomiting fever chills. Tolerating diet. Given patient's comorbidities liver disease cirrhosis will plan for medical management as she is already showing improvement with antibiotics and resuscitation. I do long discussion with the patient regards to her care plan history comorbidities and the morbidity mortality associated potentially with surgical intervention. A cholecystomy can be considered but if able to manage with medical management would be in patient's best interest given her comorbidities. This will allow her time to resuscitate improved optimized and considerations of surgery in the future elective if potential. Continue IV antibiotics per infectious disease Case discussed Continue with diet as tolerated Ultrasound ordered We will follow serial exams and recs thank you improving medical management of acute silvano responsive okay for diet cont abx DC planning subxyphond mobile cyst noted no signs of active infection states has been growing US pending (14) Weakness (15) HIV disease (16) Epileptic seizure, generalized (17) Open wound of chest wall (18) CHF (congestive heart failure), NYHA class II (19) HCV antibody positive (20) ESRD (end stage renal disease) on dialysis (21) Hypertensive urgency Deon Crowe Jul 04, 2020 16:23
--- NOTE | 2020-07-07 13:43 | Cardiology Report ---
APPROVED REPORT EKG Measurement Heart [id number] <Conclusion> Sinus rhythm with premature atrial complexes Anterior infarct, age undetermined Abnormal ECG
--- NOTE | 2020-07-11 10:55 | Coder Physician Query ---
Clarification is required for compliance, coding accuracy, and to reflect severity of illness for this patient Dear Dr. Michael Peralta Date: 07/11/20 Brake Mechanic/CDS Name: ElizabethJORDAN Query for Sepsis Patient is a 69-year-old female that was admitted with complaints of abdominal pain. She was diagnosed with cholecystitis. She was seen by Surgery and GI. She received intravenous antibiotics. She was felt to be very high risk for surgery. It was recommended by consultants that the patient be treated conservatively with medical management. She received broad-spectrum IV antibiotics. She completed her full course while in-house Per ID consultation: DX: gram positive sepsis 1. continue zosyn 2. start iv vancomycin 3. will follow up cultures WBC: 06/25 2.9, 06/26 3.9, 06/27 3.2, 07/04 3.6 Blood cultures: 06/25 gram positive cocci staph epidermidis A posssible diagnois of Sepsis was made in the medical record on ID consult, not mentioned in Discharge summary. Upon review, it is difficult to determine whether this diagnosis has been ruled in, ruled out,or is still being worked up. Please indicate below the status of the aforementioned diagnosis. [] Ruled out [] Treated and resolve [] Presumed and treated [] Currently under treatment [] Still being worked-up Physician signature Date MTDD
== END 2020-07-04 16:30 | disposition home or self-care (01) | DRG 871 ==
LOC: EDBD 00:08 → EDUNIT# 00:08 → EMR 00:20 → EDBEDREQ 01:56 → 2E 01:58 → EDBEDREQ 02:06 → EDBEDREQSVC 02:06 → EDBEDREQ 03:04 → 4E 06-28 04:43
PROC: 5A1D70Z Performance of Urinary Filtration, Intermittent, Less than 6 Hours Per Day (ICD-10-PCS; principal; 2020-07-04)
DX: A41.1 Sepsis due to other specified staphylococcus (principal); N18.6 End stage renal disease; I50.33 Acute on chronic diastolic (congestive) heart failure; K81.0 Acute cholecystitis; J91.8 Pleural effusion in other conditions classified elsewhere; R18.8 Other ascites; I13.2 Hypertensive heart and chronic kidney disease with heart failure and with stage 5 chronic kidney disease, or end stage renal disease; I47.1 Supraventricular tachycardia; K74.60 Unspecified cirrhosis of liver; K57.30 Diverticulosis of large intestine without perforation or abscess without bleeding; I48.0 Paroxysmal atrial fibrillation; F14.10 Cocaine abuse, uncomplicated; I16.0 Hypertensive urgency; I49.5 Sick sinus syndrome; Z88.6 Allergy status to analgesic agent; Z88.8 Allergy status to other drugs, medicaments and biological substances; B19.20 Unspecified viral hepatitis C without hepatic coma; K21.9 Gastro-esophageal reflux disease without esophagitis; F41.9 Anxiety disorder, unspecified; Z91.041 Radiographic dye allergy status; M81.0 Age-related osteoporosis without current pathological fracture; E11.40 Type 2 diabetes mellitus with diabetic neuropathy, unspecified; Z79.4 Long term (current) use of insulin; E11.51 Type 2 diabetes mellitus with diabetic peripheral angiopathy without gangrene; E11.22 Type 2 diabetes mellitus with diabetic chronic kidney disease; Z99.2 Dependence on renal dialysis; Z91.15 Patient's noncompliance with renal dialysis; E87.5 Hyperkalemia; L29.9 Pruritus, unspecified; G40.409 Other generalized epilepsy and epileptic syndromes, not intractable, without status epilepticus; D63.1 Anemia in chronic kidney disease
CPT/HCPCS: 36415; 71045; 74176; 76700; 80053; 80202; 80307; 81003; 82150; 82977; 83036; 83690; 83735; 83880; 84100; 84443; 84484; 84550; 85007; 85025; 86140; 87040; 87081; 87181; 87210; 93005; 96365; 96375; 99285; J2405; U0002

== ENCOUNTER 2020-07-21 16:04 | Emergency (ER) | payer MEDICAID, MEDICARE ==
[~2020-07-21] VITALS: Ht 172.7 cm; Wt 77.1 kg
[2020-07-21 16:15] VITALS: BP 121/74
[2020-07-21] MEDS ORDERED: ATIVAN1 MG ORAL (16:37)
[2020-07-21 16:44] VITALS: BP 87/90
--- NOTE | 2020-07-21 16:47 | Emergency Room Report ---
History of Present Illness General Chief Complaint: Skin Rash/Abscess Source: Patient Present Illness HPI Disclaimer: Please note that this report is being documented using [employer] technology. This can lead to erroneous entry secondary to incorrect interpretation by the dictating instrument. HPI: 70-year-old female history of multiple comorbidities including ESRD, hypertension, anxiety presents from home due to evaluation of "bumps "on chest. These were noted by the patient for at least 2 weeks. She was admitted about 3 weeks ago for cholecystitis. At that time the bumps were noted and suspected to be cyst. She states the lumps are painful but denies any fever or drainage or increase in size. She is being followed by her primary care doctor, Dr. VALDOVINOS for this issue. Allergies: Coded Allergies: ASPIRIN (Unverified Allergy, Unknown, 01/16/20) IODINE (Verified Allergy, Unknown, 01/07/20) Uncoded Allergies: CONTRAST DYE (Allergy, Unknown, 01/07/20) NSAID (Allergy, Unknown, 04/24/20) COVID-19 Screening Contact w/high risk pt: No Recent Travel to affected area: No Experienced COVID-19 symptoms?: No COVID-19 symptoms experienced: Cough, Flu-Like Symptoms COVID-19 Testing performed [employer]ER: No Patient History Reviewed Nursing Documentation: PMH: Agreed; PSxH: Agreed Nursing Documentation-PMH Hx Cardiac Problems: No - HIV, HEP C Hx Hypertension: Yes Hx Diabetes: Yes - Blood sugar currently within normal limits Hx Cancer: No Hx Gastrointestinal Problems: Yes - intractable abd pain Hx Dialysis: Yes - T TH S Hx Neurological Problems: No Hx Seizures: No - denies Hx Epilepsy: No Hx Weakness: Yes Hx Fatigue: Yes Hx Neurologic Surgery: No Hx Brain Shunt: No Review of Systems All Other Systems: negative except mentioned in HPI Physical Exam Vital Signs Date Time Temp Pulse Resp B/P (MAP) Pulse Ox O2 Delivery O2 Flow Rate FiO2 07/21/20 16:21 97.7 81 20 178/90 (119) 95 Room Air Sp02 EP Interpretation: reviewed, normal General Appearance: well appearing, no apparent distress Head: normocephalic, atraumatic Eyes: bilateral eye PERRL, bilateral eye EOMI ENT: hearing grossly normal, moist mucus membranes Neck: full range of motion, supple Respiratory: lungs clear, normal breath sounds, no rhonchi, no respiratory distress, no retraction, no wheezing Cardiovascular #1: normal peripheral pulses, regular rate, rhythm, no murmur Gastrointestinal: non tender, soft, non-distended, no guarding Neurologic: alert, oriented x3, no focal defects Skin: normal color, warm/dry, other - Cystic lesion noted under left breast, mildly tender but no erythema, no fluctuance, lesion also noted in the left axillary lesion both approximately 1 x 1 cm. Medical Decision Making Diagnostic Impression: Primary Impression: Cyst of skin ER Course Differential included but not limited to cyst versus abscess versus lymphadenopathy. Patient's admission was reviewed. Ultrasound of the mass st at that time it suspected probable cyst. On my exam there is no fluctuance no erythema I have a low suspicion for infection. I explained the patient that she can continue outpatient follow-up for the cystic lesions. She has an appointment in approximately 3 days. She has a history of anxiety and was very anxious on my exam so I gave her a small refill of her Ativan. Will follow up with primary care doctor. Will follow up at dialysis tomorrow. Stable for discharge Last Vital Signs Date Time Temp Pulse Resp B/P (MAP) Pulse Ox O2 Delivery O2 Flow Rate FiO2 07/21/20 16:21 97.7 81 20 178/90 (119) 95 Room Air Disposition: HOME, SELF-CARE Condition: Stable Scripts Lorazepam* (ATIVAN*) 1 Mg Tablet 1 MG ORAL DAILY for anxiety, #5 TAB Prov: Fidel Payne M.D. 07/21/20 Patient Instructions: Epidermal Cyst, [id number] Additional Instructions: Please follow-up with Dr. Valdovinos as scheduled. Fidel Payne M.D. Jul 21, 2020 16:46
== END 2020-07-21 17:00 | disposition home or self-care (01) ==
LOC: EMR 16:38
DX: L72.9 Follicular cyst of the skin and subcutaneous tissue, unspecified (principal); F41.9 Anxiety disorder, unspecified; E11.22 Type 2 diabetes mellitus with diabetic chronic kidney disease; I12.0 Hypertensive chronic kidney disease with stage 5 chronic kidney disease or end stage renal disease; N18.6 End stage renal disease; Z99.2 Dependence on renal dialysis; Z88.6 Allergy status to analgesic agent; Z91.041 Radiographic dye allergy status
CPT/HCPCS: 99282

== ENCOUNTER 2020-08-06 20:33 | Inpatient (IN) | payer MEDICARE, MEDICAID ==
[~2020-08-06] VITALS: Ht 167.6 cm; Wt 68.0 kg
--- NOTE | 2020-08-06 20:50 | Emergency Room Report ---
History of Present Illness General Chief Complaint: Abdominal Pain Source: Patient Present Illness HPI Disclaimer: Please note that this report is being documented using [employer] technology. This can lead to erroneous entry secondary to incorrect interpretation by the dictating instrument. HPI: 70-year-old female history of ESRD on hemodialysis, hepatitis C, cirrhosis, hypertension, COPD, recently admitted for cholecystitis treated conservatively presents for evaluation of abdominal pain. She has missed dialysis for the last 2 sessions stating that she has been "depressed" unable to make it to her dialysis sessions. She reports generalized abdominal pain. Reports nausea but no vomiting. Reports loose stools but no silver diarrhea. Denies fever or chills. Makes a small amount of urine. Denies dysuria or hematuria. States she takes Tarzan for the pain. PMH: HIV, ESRD, hepatitis, cirrhosis, hypertension, COPD PSH: Port-A-Cath placement Allergies: Aspirin, contrast dye, iodine, NSAIDs listed in chart Social Hx: Reviewed Allergies: Coded Allergies: ASPIRIN (Unverified Allergy, Unknown, 01/16/20) IODINE (Verified Allergy, Unknown, 01/07/20) Uncoded Allergies: CONTRAST DYE (Allergy, Unknown, 01/07/20) NSAID (Allergy, Unknown, 04/24/20) COVID-19 Screening Contact w/high risk pt: No Recent Travel to affected area: No Experienced COVID-19 symptoms?: No COVID-19 symptoms experienced: Cough, Flu-Like Symptoms COVID-19 Testing performed [place] [employer]: No - 07/28/20 COVID-19 Screening: Negative COVID-19 COVID-19 Testing Source: negative Patient History Last Menstrual Period: n/a Nursing Documentation-PMH Past Medical History: No History, Except For Hx Cardiac Problems: No - HIV, HEP C Hx Hypertension: Yes Hx Diabetes: Yes - Blood sugar currently within normal limits Hx Cancer: No Hx Gastrointestinal Problems: Yes - intractable abd pain Hx Dialysis: Yes - T S Hx Neurological Problems: No Hx Seizures: No - denies Hx Epilepsy: No Hx Weakness: Yes Hx Fatigue: Yes Hx Neurologic Surgery: No Hx Brain Shunt: No Review of Systems All Other Systems: negative except mentioned in HPI Physical Exam Vital Signs Date Time Temp Pulse Resp B/P (MAP) Pulse Ox O2 Delivery O2 Flow Rate FiO2 08/06/20 20:39 98.2 76 18 158/92 (114) 93 Room Air General: Awake and alert, appears uncomfortable HEENT: NC/AT. EOMI. Chest wall: Port-A-Cath present in the left upper chest. Cardiovascular: RRR. S1 and S2 normal. No murmur appreciated Resp: Normal work of breathing. No cough, wheezing or crackles appreciated Abdomen: Abdomen is soft, distended. Diffusely tender. Difficult to assess for Magdaleno's or rebound. Skin: Intact. No abrasions, laceration or rash over the exposed skin MSK: Normal tone and bulk. Moving all extremities. No obvious deformity. Neuro: Awake and alert. Mentating appropriately. Procedures Critical Care Time Critical Care Time Total critical care time: Approximately 45 minutes Due to a high probability of clinically significant, life threatening deterioration, the patient required the highest level of preparedness to intervene emergently and I personally spent this critical care time directly and personally managing the patient. This critical care time included obtaining a history, examining the patient, pulse oximetry, ordering and reviewing studies, ordering treatments, evaluating response to treatment and updating management plan as needed, frequent reassessment and discussion with other providers as well as arranging for ultimate disposition. This critical to care time was performed to assess and manage the high probability of life-threatening deterioration that could result in multiorgan failure. This critical care time is separate from the separately billable procedures and treating other patients. Medical Decision Making Diagnostic Impression: Primary Impression: ESRD (end stage renal disease) on dialysis Additional Impressions: Hyperkalemia CHF (congestive heart failure), NYHA class II ER Course 70-year-old female presents for evaluation of abdominal pain and missing dialysis twice in the past week. EKG shows slightly peaked T waves concerning for hyperkalemia and the patient was treated with calcium gluconate. Confirmed by lab results, potassium greater than 7.5. Treated with insulin/glucose, bicarbonate, Kayexalate. Troponin negative. Mild anemia. BNP elevated. No obvious effusions or consolidations on chest x-ray. Renal function consistent with ESRD. Other labs within normal limits. Ultrasound pending to evaluate for cholecystitis. Will arrange for admission. Laboratory Tests Test 08/06/20 21:00 White Blood Count 4.1 K/UL (4.8-10.8) L Red Blood Count 3.70 M/UL (4.20-5.40) L Hemoglobin 10.9 G/DL (12.0-16.0) L Hematocrit 34.0 % (37.0-47.0) L Mean Corpuscular Volume 92 FL (80-99) Mean Corpuscular Hemoglobin 29.4 PG (27.0-31.0) Mean Corpuscular Hemoglobin Concent 32.0 G/DL (32.0-36.0) Red Cell Distribution Width 19.2 % (11.6-14.8) H Platelet Count 135 K/UL (150-450) L Mean Platelet Volume 6.7 FL (6.5-10.1) Neutrophils (%) (Auto) 72.8 % (45.0-75.0) Lymphocytes (%) (Auto) 13.6 % (20.0-45.0) L Monocytes (%) (Auto) 10.2 % (1.0-10.0) H Eosinophils (%) (Auto) 1.5 % (0.0-3.0) Basophils (%) (Auto) 1.8 % (0.0-2.0) Sodium Level 130 MMOL/L (136-145) L Potassium Level 7.5 MMOL/L (3.5-5.1) *H Chloride Level 97 MMOL/L (98-107) L Carbon Dioxide Level 19 MMOL/L (21-32) L Anion Gap 14 mmol/L (5-15) Blood Urea Nitrogen 86 mg/dL (7-18) H Creatinine 13.3 MG/DL (0.55-1.30) H Estimated Glomerular Filtration Rate 3.4 mL/min (>60) Glucose Level 83 MG/DL (74-106) Calcium Level 8.2 MG/DL (8.5-10.1) L Total Bilirubin 0.6 MG/DL (0.2-1.0) Aspartate Amino Transferase (AST) 34 U/L (15-37) Alanine Aminotransferase (ALT) < 6 U/L (12-78) L Alkaline Phosphatase 100 U/L (46-116) Troponin I 0.009 ng/mL (0.000-0.056) Pro-B-Type Natriuretic Peptide Pending Total Protein 10.6 G/DL (6.4-8.2) H Albumin 3.7 G/DL (3.4-5.0) Globulin 6.9 g/dL Albumin/Globulin Ratio 0.5 (1.0-2.7) L Lipase 127 U/L (73-393) EKG Diagnostic Results Troponin ordered: Yes When was troponin ordered?: Aug 06, 2020 EKG Time: 20:55 Rate: normal Rhythm: NSR ST Segments: no acute changes Other Impression Sinus rhythm, right axis, prolonged TX interval consistent with first-degree AV block. Peaked T waves possible hyperkalemia. Rhythm Strip Diag. Results Rhythm Strip Time: 20:55 EP Interpretation: yes Rate: 80s Rhythm: NSR, no PVC's, no ectopy Chest X-Ray Diagnostic Results Chest X-Ray Diagnostic Results : Chest X-Ray Ordered: Yes # of Views/Limited/Complete: 1 View Indication: Other - Dialysis infection EP Interpretation: Yes Interpretation: no consolidation, no effusion, no pneumothorax, other - Permacath left chest appears in appropriate position, cardiomegaly Impression: No acute disease Electronically Signed by: Electronically signed by Dr. Roly Graff MD Last Vital Signs Date Time Temp Pulse Resp B/P (MAP) Pulse Ox O2 Delivery O2 Flow Rate FiO2 08/06/20 20:39 98.2 76 18 158/92 (114) 93 Room Air Disposition: ADMITTED INPATIENT Condition: Serious Roly Graff MD Aug 06, 2020 20:50
[2020-08-06 21:00] VITALS: BP 158/92
[2020-08-06] MEDS ORDERED: Calcium Gluconate 1gm/10ml vial IVP ONE (21:00)
[2020-08-06] MEDS ORDERED: Morphine Sulfate 4mg/ml Inj (IV USE ONLY) IVP ONE (21:00)
--- NOTE | 2020-08-06 21:00 | NUR ---
Nurse Note: Pt arrived c/o epigastic pain for unk time. Pt stated 10/10 pain, denies trauma. Pt stated pain radiates from abd to lower legs. Pt is restless, yelling; cooperative. Pt denies n/v/d. Pt has dialysis port of LT upper chest; loose and no dressing present. Pt stated last dialysis day was 2 sessions ago. Pt reports itchiness and scratch hercules on body.
[2020-08-06 21:10] LABS: BASOPHILS % (AUTO) 1.8 % (0.0-2.0); EOSINOPHILS % (AUTO) 1.5 % (0.0-3.0); HEMOGLOBIN 10.9 G/DL (12.0-16.0); LYMPHOCYTES % (AUTO) 13.6 % (20.0-45.0); MEAN CORPUSCULAR VOLUME 92 FL (80-99); MONOCYTES % (AUTO) 10.2 % (1.0-10.0); NEUTROPHILS % (AUTO) 72.8 % (45.0-75.0); PLATELET COUNT 135 K/UL (150-450); RED CELL DISTRIBUTION WIDTH 19.2 % (11.6-14.8); WHITE BLOOD COUNT 4.1 K/UL (4.8-10.8)
--- NOTE | 2020-08-06 21:15 | NUR ---
Nurse Note: IV est; blood sent. Pt stated she cannot urinate.
--- NOTE | 2020-08-06 21:20 | NUR ---
Nurse Note: X-ray taken; all meds administered. No adverse reactions noted. Awaiting OB. All safety measures met.
[2020-08-06 21:34] LABS: ALANINE AMINOTRANSFERASE < 6 U/L (12-78); ALBUMIN 3.7 G/DL (3.4-5.0); ALBUMIN/GLOBULIN RATIO 0.5 (1.0-2.7); ALKALINE PHOSPHATASE 100 U/L (46-116); ANION GAP 14 mmol/L (5-15); ASPARTATE AMINO TRANSFERASE 34 U/L (15-37); BILIRUBIN,TOTAL 0.6 MG/DL (0.2-1.0); BLOOD UREA NITROGEN 86 mg/dL (7-18); CALCIUM 8.2 MG/DL (8.5-10.1); CARBON DIOXIDE 19 MMOL/L (21-32); CHLORIDE 97 MMOL/L (98-107); CREATININE 13.3 MG/DL (0.55-1.30); SODIUM 130 MMOL/L (136-145)
[2020-08-06 21:37] LABS: POTASSIUM 7.5 MMOL/L (3.5-5.1)
--- NOTE | 2020-08-06 21:42 | Diagnostic Imaging Report ---
EXAM: XR Chest, 1 View CLINICAL HISTORY: SOB TECHNIQUE: Frontal view of the chest. COMPARISON: 06/25/20 FINDINGS: No change in position left-sided dual-lumen central venous catheter. No change and moderate cardiac enlargement. Negative for focal consolidation, pneumothorax or pleural fluid collections.
[2020-08-06] MEDS ORDERED: Sodium Bicarbonate 50ml Carp IV ONE (21:45)
[2020-08-06] MEDS ORDERED: Insulin Human Regular 100units/ml 3ml IV ONE (21:45)
[2020-08-06] MEDS ORDERED: Sodium Polystyrene Sulfonate 15gm Powder ORAL ONE (21:45)
[2020-08-06] MEDS ORDERED: LORazepam Inj 2mg/ml 1ml IV ONE (22:00)
--- NOTE | 2020-08-06 22:00 | NUR ---
Nurse Note: US at bedside.
[2020-08-06] MEDS ORDERED: Zosyn 2.25gm inj IV ONE (22:30)
[2020-08-06] MEDS ORDERED: HydrOXYzine tab 25mg tab ORAL PRN (22:45)
[2020-08-06] MEDS ORDERED: Sodium Polystyrene Sulfonate 15gm Powder ORAL SCH (22:45)
--- NOTE | 2020-08-06 22:58 | NUR ---
NURSE NOTES: Received report from MARTIN Neville from ED; AOX3, admitting dx hyperkalemia; on room air 96% O2 sat, in no acute distress; with R EJ peripheral line 18 gauge and L upper chest portacath for dialysis access; dialysis scheduled Q TTHS; CXR done ands negative; abdominal ultrasound, awaiting results; awaiting for pt arrival.
[2020-08-06 23:00] VITALS: BP 136/82
[2020-08-06] MEDS: TraZODone 50mg tab ORAL SCH (23:00)
--- NOTE | 2020-08-06 23:08 | Diagnostic Imaging Report ---
EXAM: US Abdomen Complete CLINICAL HISTORY: ABD PAIN TECHNIQUE: Real-time ultrasound of the abdomen with image documentation. COMPARISON: No relevant prior studies available. FINDINGS: Liver: Subjective hepatomegaly. No intrahepatic bile duct dilation. Gallbladder: The gallbladder is distended measuring up to 4 cm in short axis. There are shadowing gallstones as well as gallbladder sludge. Negative for gallbladder wall thickening or pericholecystic fluid. Common bile duct: Negative for biliary ductal dilatation. No stones. Pancreas: Unremarkable as visualized. Kidneys: Limited imaging of both kidneys demonstrates bilateral renal atrophy and increased cortical echogenicity suggesting chronic medical renal disease. No stones. No hydronephrosis. Spleen: Splenomegaly with long axis of the spleen measuring up to 16 cm. Aorta: Unremarkable. No aneurysm. Inferior vena cava: Unremarkable. IMPRESSION: Hepatosplenomegaly and kidneys with appearance of chronic medical renal disease. Cholelithiasis without biliary ductal dilatation.
--- NOTE | 2020-08-06 23:10 | NUR ---
Nurse Note: Report given to MARTIN Staples for continuity of care. All information provided. Pt refused for belonging check. Pt refused MRSA, CRE, VRE swab; pt previously tested.
--- NOTE | 2020-08-06 23:15 | NUR ---
NURSE NOTES: Dr. Pryor with STAT dialysis order via [facility] Nephrology; charge nurse called and spoke to Agustin from [facility] Nephrology to schedule STAT dialysis; trasnferred to Jose, dialysis nurse, regarding STAT schedule availability for dialysis.
--- NOTE | 2020-08-06 23:15 | NUR ---
NURSE NOTES: Received pt from ER via [facility] with 2 staff in room 217-2; noted with belongings (purse and some clothes); transferred from [facility] to bed with 2 medical staff services manager assistance; pt AOX3, restless, but fell asleep afterwards; noted with R EJ, intact and patent s/l and L upper chest permacath; intact but no dressing noted; compliance monitor placed; SR; on room air in no acute distress; V/S: 97.3-83-20-151/88-97% O2 sat; noted with BLE +3 pitting edema and R buttock unstageable pressure injury; noted with small BM, soft formed; will continue to monitor BM d/t kayexalate 30 gm given in the ER; call light within reach; side rails x3; bed locked and in low position; will continue to monitor.
--- NOTE | 2020-08-06 23:20 | NUR ---
NURSE NOTES: Charge nurse spoke to Jose, dialysis nurse, regarding STAT dialysis schedule but per Jose, no available dialysis nurse at this time and the earliest she can come is @ 0630; pt made aware of the scheduled dialysis; consent signed; pt belonging paper also signed; V/S and pt stable.
--- NOTE | 2020-08-06 23:38 | NUR ---
NURSE NOTES: Called and spoke to Dr. Pryor that STAT dialysis will not be available at this time but the earliest dialysis time is at 0630; Dr. Pryor was upset and verbalized to report this situation to the nurse first line supervisor and to document it; v/s relayed and that pt is stable at this time; charge nurse aware of what DR. Pryor verbalized.
--- NOTE | 2020-08-06 23:40 | NUR ---
NURSE NOTES: Nursing supervisor customer services, Jessica Mclaughlin, made aware that STAT dialysis cannot be done til 0630 AM per Jose, dialysis nurse, d/t no available dialysis nurse at this time; per nursing supervisor customer services to just document and that she is aware.
[2020-08-07] VITALS (7 sets, daily range): BP systolic 121–164; BP diastolic 62–88
[2020-08-07] MEDS ORDERED: Piperacillin/Tazobactam 2.25 GM in D5W 55 ML IV SCH ×2
--- NOTE | 2020-08-07 00:06 | NUR ---
NURSE NOTES: Contacted Dr. Peralta for admission orders and to relay pt status and abnormal labs; awaiting response.
--- NOTE | 2020-08-07 00:45 | NUR ---
NURSE NOTES: Left urgent message to Dr. Peralta regarding obtaining admission orders; awaiting MD response.
[2020-08-07] MEDS: Zosyn 3.375gm in NS 110ml IVPB SCH ×2 (02:56→12:56)
[2020-08-07] MEDS: HydrALAZINE 25mg tab ORAL SCH ×3 (06:00→22:18)
--- NOTE | 2020-08-07 06:30 | NUR ---
NURSE NOTES: Hydralazine 75 mg PO not administered d/t pt scheduled for HD today early AM; WU=578/75.
[2020-08-07 06:37] LABS: EOSINOPHILS % (AUTO) 1.7 % (0.0-3.0); HEMATOCRIT 32.5 % (37.0-47.0); HEMOGLOBIN 10.2 G/DL (12.0-16.0); LYMPHOCYTES % (AUTO) 19.2 % (20.0-45.0); MEAN CORPUSCULAR VOLUME 93 FL (80-99); MONOCYTES % (AUTO) 9.1 % (1.0-10.0); PLATELET COUNT 126 K/UL (150-450); RED BLOOD COUNT 3.49 M/UL (4.20-5.40); RED CELL DISTRIBUTION WIDTH 18.3 % (11.6-14.8); WHITE BLOOD COUNT 4.1 K/UL (4.8-10.8)
[2020-08-07] MEDS: Levothyroxine 25mcg tab ORAL SCH (06:39)
--- NOTE | 2020-08-07 07:30 | NUR ---
NURSE HAND-OFF REPORT: Important Events on Shift: New admit from ER; admitting dx hyperkalemia; HD STAT but will be done early AM today d/t no available dialysis nurse last night; Dr. Pryor aware; L upper chest permacath for HD; AM dose of Hydralazine 75 mg held d/t scheduled dialysis Patient Status: AOX3-4, stable Diet: NPO except ice chips and meds Pending Orders: HD Pending Results/Labs: AM labs Pending MD notification:N Latest Vital Signs: Temperature 97.5 , Pulse 80 , B/P 149 /75 , Respiratory Rate 20 , O2 SAT 97 , Room Air, O2 Flow Rate . Vital Sign Comment: stable EKG Rhythm: Sinus Rhythm Rhythm change?: N MD Notified?: - MD Response: Latest Espinoza Fall Score: 35 Fall Risk: Medium Risk Safety Measures: Call light Within Reach, Bed Alarm Zone 1, Side Rails Side Rails x3, Bed position Low and Locked. Fall Precautions: Patient Fall Education Report given to MARTIN Vicente.
[2020-08-07 07:31] LABS: ALANINE AMINOTRANSFERASE 14 U/L (12-78); ALBUMIN 3.6 G/DL (3.4-5.0); ALBUMIN/GLOBULIN RATIO 0.6 (1.0-2.7); ALKALINE PHOSPHATASE 89 U/L (46-116); ANION GAP 16 mmol/L (5-15); ASPARTATE AMINO TRANSFERASE 35 U/L (15-37); BILIRUBIN,TOTAL 0.5 MG/DL (0.2-1.0); BLOOD UREA NITROGEN 90 mg/dL (7-18); CALCIUM 7.8 MG/DL (8.5-10.1); CARBON DIOXIDE 19 MMOL/L (21-32); CHLORIDE 97 MMOL/L (98-107); CHOLESTEROL 113 MG/DL (< 200); CREATININE 13.8 MG/DL (0.55-1.30); GAMMA GLUTAMYL TRANSPEPTIDASE 355 U/L (5-85); HDL CHOLESTEROL 45 MG/DL (40-60); PHOSPHORUS 8.9 MG/DL (2.5-4.9); SODIUM 131 MMOL/L (136-145); TRIGLYCERIDES 131 MG/DL (30-150)
--- NOTE | 2020-08-07 08:16 | NUR ---
NURSE NOTES: Received report from Bel Oneal RN. Patient sitting in semi-Hernandez's position, awake and alert, on room air, hemodialysis nurse in room, SABIHA Fam in room assiting patient. In no apparent distress.
[2020-08-07 08:18] LABS: POTASSIUM 7.1 MMOL/L (3.5-5.1)
[2020-08-07] MEDS: TraZODone 50mg tab ORAL SCH ×2 (08:55→18:00)
[2020-08-07] MEDS: Morphine Sulfate 2mg/ml Inj(IV/IM USE ONLY) IVP PRN (08:57)
[2020-08-07] MEDS ORDERED: LORazepam 1mg tab ORAL SCH (09:00)
[2020-08-07] MEDS ORDERED: Dolutegravir Sodium 50mg tab ORAL SCH (09:00)
[2020-08-07] MEDS: Heparin 5000 units/ml inj SUBQ SCH ×2 (09:00→21:00)
[2020-08-07] MEDS ORDERED: Docusate 100mg cap ORAL SCH (09:00)
--- NOTE | 2020-08-07 12:48 | Consultation ---
Consult Note Consult Note I am asked to evaluate the patient at the request of Dr. Peralta for dialysis management Patient very well-known to me. She had multiple previous admission here at [facility]. I follow her at the outpatient hemodialysis center. She gets dialysis Friday. She is noncompliant with medication and diet and her dialysis sessions Emergency room note: Chief Complaint: Abdominal Pain HPI: 70-year-old female history of ESRD on hemodialysis, hepatitis C, cirrhosis, hypertension, COPD, recently admitted for cholecystitis treated conservatively presents for evaluation of abdominal pain. She has missed dialysis for the last 2 sessions stating that she has been "depressed" unable to make it to her dialysis sessions. She reports generalized abdominal pain. Reports nausea but no vomiting. Reports loose stools but no silver diarrhea. Denies fever or chills. Makes a small amount of urine. Denies dysuria or hematuria. States she takes [place] for the pain. PMH: HIV, ESRD, hepatitis, cirrhosis, hypertension, COPD PSH: Port-A-Cath placement Allergies: Aspirin, contrast dye, iodine, NSAIDs listed in chart Social Hx: Reviewed Allergies: Coded Allergies: ASPIRIN (Unverified Allergy, Unknown, 01/16/20) IODINE (Verified Allergy, Unknown, 01/07/20) Uncoded Allergies: CONTRAST DYE (Allergy, Unknown, 01/07/20) NSAID (Allergy, Unknown, 04/24/20) COVID-19 Screening Contact w/high risk pt: No Recent Travel to affected area: No Experienced COVID-19 symptoms?: No COVID-19 symptoms experienced: Cough, Flu-Like Symptoms COVID-19 Testing performed INSPECTOR QUALITY ASSURANCE: No - 07/28/20 COVID-19 Screening: Negative COVID-19 COVID-19 Testing Source: negative Past Medical History: No History, Except For Hx Cardiac Problems: No - HIV, HEP C Hx Hypertension: Yes Hx Diabetes: Yes - Blood sugar currently within normal limits Hx Gastrointestinal Problems: Yes - intractable abd pain Hx Dialysis: Yes - T S Hx Weakness: Yes Hx Fatigue: Yes All Other Systems: negative except mentioned in HPI Vital Signs Date Time Temp Pulse Resp B/P (MAP) Pulse Ox O2 Delivery O2 Flow Rate FiO2 08/06/20 20:39 98.2 76 18 158/92 (114) 93 Room Air PHYSICAL EXAMINATION: VITAL SIGNS: Blood pressure 158/92, pulse 76, respirations 18, and afebrile. Port-A-Cath, left upper chest. LUNGS: Clear. CARDIAC: Regular. Normal S1, S2 with a fourth heart sound. ABDOMEN: Soft. EXTREMITIES: No edema. LABORATORY AND DIAGNOSTIC DATA: EKG, sinus rhythm, left ventricular hypertrophy. No peaking T-waves. Chest x-ray, pulmonary venous congestion. LABORATORY DATA: White count 3.7, hemoglobin 10.4, hematocrit 33.6, MCV 93, platelet count of 175 with neutrophils of 59%. Sodium 139, potassium 4.2, chloride 101, bicarb 25, BUN 53, creatinine 10.5, glucose 114, calcium 7.2. Total bilirubin 0.4, AST 31, ALT 66, alkaline phosphatase 62, total protein 8.6, albumin 2.7. Hepatitis B surface antigen is pending. COVID-19 test is negative. Abdominal ultrasound showing hepatosplenomegaly with kidney showing chronic medical renal disease, cholelithiasis without biliary ductal dilatation. Chest x-ray is showing no consolidation, pneumothorax, or pleural fluid. Abdominal x-ray is showing no acute process. . Assessment/Plan End-stage renal disease on hemodialysis Presents with hyperkalemia History of substance abuse, cocaine Fluid overload HIV disease Otitis C virus antibody positive Hypertensive kidney disease Noncompliance with diet and dialysis Anemia of chronic kidney disease Patient currently on dialysis against low potassium bath Ultrafiltration Keep the blood pressure in check Continue per PMD Per orders Jack Pryor MD Aug 07, 2020 12:47
[2020-08-07] MEDS: Docusate 100mg cap ORAL SCH ×2 (13:00→18:00)
[2020-08-07] MEDS: HydrOXYzine tab 25mg tab ORAL SCH ×2 (14:00→22:17)
--- NOTE | 2020-08-07 14:22 | Consultation ---
History of Present Illness General Date patient seen: Aug 07, 2020 Reason for Hospitalization: Abdominal Pain Present Illness HPI 70-year-old female history of ESRD on hemodialysis, hepatitis C, cirrhosis, hypertension, COPD, recently admitted for cholecystitis treated conservatively presents for evaluation of abdominal pain. She has missed dialysis for the last 2 sessions stating that she has been "depressed" unable to make it to her dialysis sessions. She reports generalized abdominal pain. Reports nausea but no vomiting. Reports loose stools but no silver diarrhea. Denies fever or chills. Makes a small amount of urine. Denies dysuria or hematuria. States she takes [place] for the pain. surgery called to evaluate for abd pain. patient seen, chart reviewed, patient examined. Allergies: Coded Allergies: ASPIRIN (Unverified Allergy, Unknown, 01/16/20) IODINE (Verified Allergy, Unknown, 01/07/20) Uncoded Allergies: CONTRAST DYE (Allergy, Unknown, 01/07/20) NSAID (Allergy, Unknown, 04/24/20) COVID-19 Screening Contact w/high risk pt: No Recent Travel to affected area: No Experienced COVID-19 symptoms?: No Medication History Scheduled Amlodipine Besylate* (Amlodipine Besylate*), 10 MG ORAL DAILY, (Reported) Bupropion Hcl (Wellbutrin Sr), 100 MG ORAL BID, (Reported) Docusate Sodium (Stool Softener), 100 MG ORAL BID, (Reported) Dolutegravir Sodium (Tivicay), 50 MG ORAL DAILY, (Reported) Escitalopram Oxalate* (Lexapro*), 10 MG ORAL DAILY, (Reported) Hydralazine Hcl* (Hydralazine Hcl*), 75 MG ORAL EVERY 8 HOURS, (Reported) Levothyroxine Sodium* (Synthroid*), 75 MCG ORAL DAILY, (Reported) Lorazepam* (Ativan*), 1 MG ORAL DAILY Pantoprazole* (Pantoprazole*), 40 MG ORAL BID, (Reported) Trazodone Hcl* (Desyrel*), 50 MG ORAL BID, (Reported) Scheduled PRN Hydrocodone Bit/Acetaminophen 10-325* ([place] 10-325*), 1 TAB ORAL DAILY PRN for For Pain, (Reported) Hydroxyzine Hcl (Hydroxyzine Hcl), 25 MG PO THREE TIMES A DAY PRN for Itching, (Reported) Patient History History Provided By: Patient, Medical Record, PMD Healthcare decision maker Resuscitation status Advanced Directive on File Past Medical/Surgical History Past Medical/Surgical History: (1) Cocaine abuse (2) Anxiety (3) Cirrhosis (4) Adnexal mass (5) Recurrent vulvovaginal herpes simplex (6) Hypertension (7) Intractable abdominal pain (8) Sick sinus syndrome (9) Fluid overload (10) Substance abuse (11) Pruritus (12) Cholecystitis, acute (13) Weakness (14) HIV disease (15) Epileptic seizure, generalized (16) Open wound of chest wall (17) HCV antibody positive (18) Hypertensive urgency (19) Cyst of skin (20) Hyperkalemia (21) CHF (congestive heart failure), NYHA class II (22) ESRD (end stage renal disease) on dialysis Review of Systems Review of Symptoms General ROS: no weight loss or fever Psychological ROS: no depression or mood changes, no memory loss Ophthalmic ROS: no visual changes or eye irritation ENT ROS: no nasal congestion, hearing loss, dizziness Allergy and Immunology ROS: no allergic symptoms or urticaria Hematological and Lymphatic ROS: no swollen glands, unusual bleeding or bruising Endocrine ROS: no polyuria, polydipsia, weight changes, temperature intolerance Respiratory ROS: no cough, shortness of breath, or wheezing Cardiovascular ROS: no chest pain or dyspnea on exertion Gastrointestinal ROS: ++ abdominal pain, --bright red blood in stool. Musculoskeletal ROS: no myalgias or arthralgias Neurological ROS: no TIA or stroke symptoms Dermatological ROS: no new or changing skin lesions, rashes or pruritis Physical Exam Physical Exam General appearance: alert, cooperative, no distress, appears stated age Head: Normocephalic, without obvious abnormality, atraumatic Eyes: conjunctivae/corneas clear. PERRL, EOM's intact. Fundi benign Throat: Lips, mucosa, and tongue normal. Teeth and gums normal Neck: supple, symmetrical, trachea midline, no adenopathy, thyroid: not enlarged, symmetric, no tenderness/mass/nodules, no carotid bruit and no JVD Lungs: clear to auscultation bilaterally Heart: regular rate and rhythm, S1, S2 normal, no murmur, click, rub or gallop Abdomen: soft, non-tender. Bowel sounds normal. No masses, no organomegaly Extremities: extremities normal, atraumatic, no cyanosis or edema Pulses: 2+ and symmetric Skin: Skin color, texture, turgor normal. No rashes or lesions Neurologic: Grossly normal Last 24 Hour Vital Signs Date Time Temp Pulse Resp B/P (MAP) Pulse Ox O2 Delivery O2 Flow Rate FiO2 08/07/20 12:00 92 08/07/20 12:00 97.7 113 18 128/62 (84) 96 08/07/20 09:27 97.9 08/07/20 09:26 117 17 139/74 95 08/07/20 09:00 86 163/78 08/07/20 08:56 86 19 163/78 95 08/07/20 08:00 86 08/07/20 08:00 97.9 86 20 164/78 (106) 95 08/07/20 06:00 149/75 08/07/20 04:00 80 08/07/20 04:00 97.5 80 20 131/69 (89) 97 08/07/20 02:36 Room Air 08/07/20 00:00 75 08/07/20 00:00 97.3 75 20 151/88 (109) 97 08/06/20 23:15 98.4 78 18 136/82 96 Room Air 08/06/20 23:00 98.4 78 18 136/82 96 Room Air 08/06/20 22:28 81 18 147/80 98 08/06/20 22:00 98.3 08/06/20 21:00 98.2 90 18 158/92 93 Room Air 08/06/20 21:00 76 18 Room Air 08/06/20 20:39 98.2 76 18 158/92 (114) 93 Room Air Intake and Output 08/06/20 08/07/20 19:00 07:00 Intake Total 180 ml Balance 180 ml Intake Oral 180 ml # Voids 1 # Bowel Movements 2 Laboratory Tests Test 08/06/20 21:00 08/07/20 05:45 White Blood Count 4.1 K/UL (4.8-10.8) L 4.1 K/UL (4.8-10.8) L Red Blood Count 3.70 M/UL (4.20-5.40) L 3.49 M/UL (4.20-5.40) L Hemoglobin 10.9 G/DL (12.0-16.0) L 10.2 G/DL (12.0-16.0) L Hematocrit 34.0 % (37.0-47.0) L 32.5 % (37.0-47.0) L Mean Corpuscular Volume 92 FL (80-99) 93 FL (80-99) Mean Corpuscular Hemoglobin 29.4 PG (27.0-31.0) 29.1 PG (27.0-31.0) Mean Corpuscular Hemoglobin Concent 32.0 G/DL (32.0-36.0) 31.3 G/DL (32.0-36.0) L Red Cell Distribution Width 19.2 % (11.6-14.8) H 18.3 % (11.6-14.8) H Platelet Count 135 K/UL (150-450) L 126 K/UL (150-450) L Mean Platelet Volume 6.7 FL (6.5-10.1) 7.2 FL (6.5-10.1) Neutrophils (%) (Auto) 72.8 % (45.0-75.0) 69.0 % (45.0-75.0) Lymphocytes (%) (Auto) 13.6 % (20.0-45.0) L 19.2 % (20.0-45.0) L Monocytes (%) (Auto) 10.2 % (1.0-10.0) H 9.1 % (1.0-10.0) Eosinophils (%) (Auto) 1.5 % (0.0-3.0) 1.7 % (0.0-3.0) Basophils (%) (Auto) 1.8 % (0.0-2.0) 1.0 % (0.0-2.0) Sodium Level 130 MMOL/L (136-145) L 131 MMOL/L (136-145) L Potassium Level 7.5 MMOL/L (3.5-5.1) *H 7.1 MMOL/L (3.5-5.1) *H Chloride Level 97 MMOL/L (98-107) L 97 MMOL/L (98-107) L Carbon Dioxide Level 19 MMOL/L (21-32) L 19 MMOL/L (21-32) L Anion Gap 14 mmol/L (5-15) 16 mmol/L (5-15) H Blood Urea Nitrogen 86 mg/dL (7-18) H 90 mg/dL (7-18) H Creatinine 13.3 MG/DL (0.55-1.30) H 13.8 MG/DL (0.55-1.30) H Estimat Glomerular Filtration Rate 3.4 mL/min (>60) 3.3 mL/min (>60) Glucose Level 83 MG/DL (74-106) 54 MG/DL (74-106) L Calcium Level 8.2 MG/DL (8.5-10.1) L 7.8 MG/DL (8.5-10.1) L Total Bilirubin 0.6 MG/DL (0.2-1.0) 0.5 MG/DL (0.2-1.0) Aspartate Amino Transf (AST/SGOT) 34 U/L (15-37) 35 U/L (15-37) Alanine Aminotransferase (ALT/SGPT) < 6 U/L (12-78) L 14 U/L (12-78) Alkaline Phosphatase 100 U/L (46-116) 89 U/L (46-116) Troponin I 0.009 ng/mL (0.000-0.056) 0.011 ng/mL (0.000-0.056) Pro-B-Type Natriuretic Peptide > 01816 pg/mL (0-125) H > 79662 pg/mL (0-125) H Total Protein 10.6 G/DL (6.4-8.2) H 10.0 G/DL (6.4-8.2) H Albumin 3.7 G/DL (3.4-5.0) 3.6 G/DL (3.4-5.0) Globulin 6.9 g/dL 6.4 g/dL Albumin/Globulin Ratio 0.5 (1.0-2.7) L 0.6 (1.0-2.7) L Lipase 127 U/L (73-393) Hemoglobin A1c 4.2 % (4.3-6.0) L Phosphorus Level 8.9 MG/DL (2.5-4.9) H Magnesium Level 2.6 MG/DL (1.8-2.4) H Gamma Glutamyl Transpeptidase 355 U/L (5-85) H C-Reactive Protein, Quantitative Pending Triglycerides Level 131 MG/DL (30-150) Cholesterol Level 113 MG/DL (< 200) LDL Cholesterol 44 mg/dL (<100) HDL Cholesterol 45 MG/DL (40-60) Cholesterol/HDL Ratio 2.5 (3.3-4.4) L Thyroid Stimulating Hormone (TSH) 2.709 uiU/mL (0.358-3.740) Hepatitis B Surface Antigen Pending Height (Feet): 5 Height (Inches): 6.00 Weight (Pounds): 150 Medications Current Medications Medications (Trade) Dose Ordered Sig/Rochelle Route PRN Reason Start Time Stop Time Status Last Admin Dose Admin Acetaminophen/ Hydrocodone Bitart ([place] 10/325) 1 tab DAILY PRN ORAL For Pain 08/06/20 22:45 08/13/20 22:44 Amlodipine Besylate (Norvasc) 10 mg DAILY ORAL 08/07/20 09:00 09/06/20 08:59 Chlorhexidine Gluconate (Mamie-Hex 2%) 1 applic DAILY TOPIC 08/07/20 20:00 11/05/20 19:59 Docusate Sodium (Colace) 100 mg TID ORAL 08/07/20 13:00 09/06/20 08:59 08/07/20 13:00 Dolutegravir Sodium (Tivicay) 50 mg DAILY ORAL 08/07/20 09:00 11/05/20 08:59 UNV Escitalopram Oxalate (Lexapro) 10 mg DAILY ORAL 08/07/20 09:00 09/06/20 08:59 08/07/20 08:56 Heparin Sodium (Porcine) (Heparin 5000 units/ml) 5,000 units EVERY 12 HOURS SUBQ 08/07/20 09:00 09/21/20 08:59 Hydralazine HCl (Apresoline) 75 mg EVERY 8 HOURS ORAL 08/07/20 06:00 11/05/20 05:59 Hydroxyzine HCl (Atarax) 25 mg Q8HR ORAL 08/07/20 14:00 09/05/20 22:44 Levothyroxine Sodium (Synthroid) 75 mcg BEFORE BREAKFAST ORAL 08/07/20 06:30 09/06/20 06:29 08/07/20 06:39 Lorazepam (Ativan) 1 mg TIDPRN PRN ORAL anxiety 08/07/20 12:58 08/14/20 12:57 Morphine Sulfate (Morphine Sulfate) 1 mg Q4H PRN IVP Severe Pain (Pain Scale 7-10) 08/06/20 22:45 08/13/20 22:44 08/07/20 08:57 Ondansetron HCl (Zofran) 4 mg Q6H PRN IVP Nausea & Vomiting 08/06/20 22:45 09/05/20 22:44 Pantoprazole (Protonix) 40 mg BID ORAL 08/07/20 09:00 09/06/20 08:59 08/07/20 08:55 Piperacillin Sod/ Tazobactam Sod 2.25 gm/Dextrose 55 ml @ 110 mls/hr Q8HR IV 08/07/20 22:00 08/12/20 21:59 Piperacillin Sod/ Tazobactam Sod 3.375 gm/Sodium Chloride 110 ml @ 27.5 mls/hr Q12H IVPB 08/07/20 00:00 08/07/20 20:00 08/07/20 12:56 Sevelamer Carbonate (Renvela) 2,400 mg THREE TIMES A DAY ORAL 08/07/20 13:00 11/05/20 12:59 08/07/20 13:01 Trazodone HCl (Desyrel) 50 mg BID ORAL 08/06/20 23:00 09/05/20 22:59 08/07/20 08:55 Assessment/Plan Problem List: (1) Hyperkalemia ICD Codes: E87.5 - Hyperkalemia SNOMED: 65235078 (2) CHF (congestive heart failure), NYHA class II ICD Codes: I50.9 - Heart failure, unspecified SNOMED: 087907761, 585266350 (3) ESRD (end stage renal disease) on dialysis ICD Codes: N18.6 - End stage renal disease; Z99.2 - Dependence on renal dialysis SNOMED: 005920031 (4) Sick sinus syndrome ICD Codes: I49.5 - Sick sinus syndrome SNOMED: 36970962 (5) Fluid overload ICD Codes: E87.70 - Fluid overload, unspecified SNOMED: 32378249 (6) Substance abuse ICD Codes: F19.10 - Other psychoactive substance abuse, uncomplicated SNOMED: 58912236 (7) Cocaine abuse ICD Codes: F14.10 - Cocaine abuse, uncomplicated SNOMED: 08977240 (8) Anxiety ICD Codes: F41.9 - Anxiety disorder, unspecified SNOMED: 43928215 (9) Cirrhosis ICD Codes: K74.60 - Unspecified cirrhosis of liver SNOMED: 39936282 (10) Pruritus ICD Codes: L29.9 - Pruritus, unspecified SNOMED: 910189807, 590914536 (11) Cholecystitis, acute ICD Codes: K81.0 - Acute cholecystitis SNOMED: 49147509 (12) Weakness ICD Codes: R53.1 - Weakness SNOMED: 11538112 (13) Hypertension ICD Codes: I10 - Essential (primary) hypertension SNOMED: 01989199 (14) HIV disease ICD Codes: B20 - Human immunodeficiency virus [HIV] disease SNOMED: 96880206 (15) Cyst of skin ICD Codes: L72.9 - Follicular cyst of the skin and subcutaneous tissue, unspecified SNOMED: 785391862 (16) Epileptic seizure, generalized ICD Codes: G40.309 - Generalized idiopathic epilepsy and epileptic syndromes, not intractable, without status epilepticus SNOMED: 69839320 (17) Open wound of chest wall ICD Codes: S21.109A - Unspecified open wound of unspecified front wall of thorax without penetration into thoracic cavity, initial encounter SNOMED: 138614300 (18) Adnexal mass ICD Codes: N94.89 - Other specified conditions associated with female genital organs and menstrual cycle SNOMED: 089736988 (19) HCV antibody positive ICD Codes: R76.8 - Other specified abnormal immunological findings in serum SNOMED: 107552040 (20) Hypertensive urgency ICD Codes: I16.0 - Hypertensive urgency SNOMED: 229246227 (21) Intractable abdominal pain ICD Codes: R10.9 - Unspecified abdominal pain SNOMED: 60609546 (22) Recurrent vulvovaginal herpes simplex ICD Codes: A60.04 - Herpesviral vulvovaginitis SNOMED: 260779900 (23) Abdominal pain Assessment & Plan: This is a 70-year-old female well-known to me with recent episode of acute cholecystitis treated conservative management given her significant history who presents with abdominal pain generalized to all 4 out of 10 associated nausea currently no emesis passing flatus having diarrhea. Afebrile hemodynamically stable labs noted missed dialysis. Abdominal exam with mild discomfort no peritonitis. LFTs okay. Ultrasound reviewed. Unlikely acute cholecystitis can. Abdominal pain potentially diarrhea infectious etiology enteritis. Okay for diet. Dialysis as per nephrology. Electrolyte imbalance will improve. Will monitor and follow with serial exams. Hold on further radiology for now. May consider CT if not improving. Thank you for letting participate patient's care will follow with recommendations Liver: Subjective hepatomegaly. No intrahepatic bile duct dilation. Gallbladder: The gallbladder is distended measuring up to 4 cm in short axis. There are shadowing gallstones as well as gallbladder sludge. Negative for gallbladder wall thickening or pericholecystic fluid. Common bile duct: Negative for biliary ductal dilatation. No stones. Pancreas: Unremarkable as visualized. Kidneys: Limited imaging of both kidneys demonstrates bilateral renal atrophy and increased cortical echogenicity suggesting chronic medical renal disease. No stones. No hydronephrosis. Spleen: Splenomegaly with long axis of the spleen measuring up to 16 cm. Aorta: Unremarkable. No aneurysm. Inferior vena cava: Unremarkable. IMPRESSION: Hepatosplenomegaly and kidneys with appearance of chronic medical renal disease. Cholelithiasis without biliary ductal dilatation. ICD Codes: R10.9 - Unspecified abdominal pain SNOMED: 87096092 Juan CKailyn mabryya Aug 07, 2020 14:22
--- NOTE | 2020-08-07 14:59 | History and Physical Report ---
DATE OF ADMISSION: 08/06/2020 CHIEF COMPLAINT: Abdominal pain. HISTORY OF PRESENT ILLNESS: The patient is a 70-year-old female, well known to me. She has a history of hypertensive heart disease, HIV, end-stage renal disease. She has a history of conduction system disease, history of gallstones and cholecystitis. She presented from home with complaints of severe intractable generalized abdominal pain. On evaluation in the emergency room, the patient was afebrile. She had a white count of 4000. Abdominal ultrasound showed distended gallbladder with gallstones and sludge but was negative for gallbladder wall thickening or pericholecystic fluid. The patient's previous diagnosis of cholecystitis was treated conservatively with antibiotic therapy. In light of worsening abdominal pain, she is now admitted for further evaluation and care. PAST MEDICAL HISTORY: As above. History of chronic pain and fibromyalgia. CURRENT MEDICATIONS: Reconciled and reviewed. ALLERGIES: Include aspirin, contrast dye, iodine, NSAIDs. FAMILY HISTORY: Noncontributory. SOCIAL HISTORY: Negative for tobacco or ethanol. The patient has a history opioid dependence. PHYSICAL EXAMINATION: VITAL SIGNS: Temperature 98, pulse 113, respirations 18, and blood pressure 128/62. GENERAL: The patient is well developed, no apparent distress. HEART: Regular rate and rhythm LUNGS: Clear. ABDOMEN: Soft. Diffusely tender. There is no rebound or guarding. EXTREMITIES: No clubbing, cyanosis, or edema. LABORATORY DATA: White count 4, hemoglobin 10, platelets 135. Sodium 138, potassium 7.5. Natriuretic peptide level was greater than 35,000. Lipase is 127. TSH was normal. ASSESSMENT: This is a 70-year-old female with a history of end-stage renal disease, hypertension, HIV, prior history of gallstones and cholecystitis admitted with complaints of abdominal pain, hyperkalemia due to missed dialysis. PLAN: 1. Admit to monitored bed. 2. Kayexalate for hyperkalemia. 3. Renal consultation for hemodialysis. 4. Empiric antibiotics to cover for cholecystitis. 5. GI, Surgery, Cardiology consultations to be obtained. 6. We will continue the patient's outpatient blood pressure regimen. 7. DVT and stress ulcer prophylaxes will be instituted. 8. The patient received IV pain medications and antiemetics as needed. Michael Peralta M.D. DR: Yasmeen JOB#: [id number] CC:
--- NOTE | 2020-08-07 15:50 | NUR ---
CASE MANAGEMENT:REVIEW 70 YR OLD FEMALE WALKED IN TO ER CC: ABDOMINAL PAIN MISSED DIALYSIS X2 PMH: ESRD. HIV. HEP C SI: HYPERKALEMIA. CHF 98.3 76 18 158/92 93% ON RA K+7.5 BUN+86 CR+13.3 IS: IV MORPHINE IV CA GLUCONATE IV INSULIN IV D50W KAYEXALATE PO IV ATIVAN IV NAHCO3 : TO TELEMETRY
--- NOTE | 2020-08-07 19:45 | NUR ---
NURSE NOTES: Receive a report from MARTIN Vicente. Round is made. Pt is asleep without acute distress. No respiratory distress noted. Inserted state of KOREY perma cath and site is clean and intact. IV access is on right EJ H?/L. On bed alarm and call light within reach. Will continue to monitor.
--- NOTE | 2020-08-07 19:56 | NUR ---
NURSE HAND-OFF REPORT: Important Events on Shift: Hemodialysis today, 2 liters out. Patient is very drowsy. Bilateral lower extremity edema 3+ Patient Status: In no apparent distress. Diet: NPO except ice/meds, no caffeine, no chocolate. Pending Orders: am labs. Pending Results/Labs:am labs Pending MD notification:N/A Latest Vital Signs: Temperature 101.0 , Pulse 100 , B/P 135 /66 , Respiratory Rate 20 , O2 SAT 95 , Room Air, O2 Flow Rate . Vital Sign Comment: N/A EKG Rhythm: Sinus Rhythm Rhythm change?: N MD Notified?: - MD Response: Latest Espinoza Fall Score: 35 Fall Risk: Medium Risk Safety Measures: Call light Within Reach, Bed Alarm Zone 2, Side Rails Side Rails x2, Bed position Low and Locked. Fall Precautions: Yellow Socks Report given to Geovani Treviño RN.
--- NOTE | 2020-08-07 21:30 | NUR ---
NURSE NOTES: Call Dr. Peralta for pt's conditions-fever, drowsiness and abdominal pain. Receive new orders of blood culture x1, Tylenol 650mg q6hrs for fever >100.0 F, [facility] to dose, keeping her npo, and hold pain medication. Order noted and carried out. Will continue to monitor.
[2020-08-07] MEDS: Dyna-Hex 2% Top Sol 2oz TOPIC SCH (22:17)
[2020-08-07] MEDS: Zosyn 2.25 gm in D5W 55ml IV SCH (22:18)
--- NOTE | 2020-08-07 22:30 | NUR ---
NURSE NOTES: Receive new order for Covid-19 rapid swab d/t fever and done collection.
[2020-08-07] MEDS ORDERED: Vancomycin 1.25gm Premix q24h IVPB SCH (23:00)
--- NOTE | 2020-08-07 23:45 | NUR ---
NURSE NOTES: Receive a call from Lab, Covid-19 result came out negative.
[2020-08-08] VITALS: BP 124/69
--- NOTE | 2020-08-08 03:17 | Cardiology Progress Note ---
Subjective DATE OF SERVICE: Aug 07, 2020 C/O pain and anxiety. S/P HD/UF Had fever last nite Req'd kayexalate for hyperK Missed outpatient dialysis session Objective Last 24 Hour Vital Signs Date Time Temp Pulse Resp B/P (MAP) Pulse Ox O2 Delivery O2 Flow Rate FiO2 08/08/20 00:30 98.5 08/08/20 00:00 100.5 84 18 124/69 (87) 97 08/08/20 00:00 83 08/07/20 22:18 141/74 08/07/20 21:30 99.9 96 18 141/74 (96) 98 08/07/20 21:00 Room Air 08/07/20 20:00 100.2 96 18 121/73 (89) 98 08/07/20 20:00 100 08/07/20 16:00 101.0 97 20 135/66 (89) 95 08/07/20 16:00 100 08/07/20 14:00 128/62 08/07/20 12:00 92 08/07/20 12:00 97.7 113 18 128/62 (84) 96 08/07/20 09:27 97.9 08/07/20 09:26 117 17 139/74 95 08/07/20 09:00 86 163/78 08/07/20 09:00 Room Air 08/07/20 08:56 86 19 163/78 95 08/07/20 08:00 86 08/07/20 08:00 97.9 86 20 164/78 (106) 95 08/07/20 06:00 149/75 08/07/20 04:00 80 08/07/20 04:00 97.5 80 20 131/69 (89) 97 ROS: unchanged LUNGS: lungs clear bilaterally CARDIAC: normal rate, regular rhythm, normal S1 and S2, gallop/S4 ABDOMEN: normal bowel sounds, soft, tender - Upper quads R>>L EXTREMITIES: non-tender, trace edema Laboratory Tests Test 08/07/20 05:45 White Blood Count 4.1 K/UL (4.8-10.8) L Red Blood Count 3.49 M/UL (4.20-5.40) L Hemoglobin 10.2 G/DL (12.0-16.0) L Hematocrit 32.5 % (37.0-47.0) L Mean Corpuscular Volume 93 FL (80-99) Mean Corpuscular Hemoglobin 29.1 PG (27.0-31.0) Mean Corpuscular Hemoglobin Concent 31.3 G/DL (32.0-36.0) L Red Cell Distribution Width 18.3 % (11.6-14.8) H Platelet Count 126 K/UL (150-450) L Mean Platelet Volume 7.2 FL (6.5-10.1) Neutrophils (%) (Auto) 69.0 % (45.0-75.0) Lymphocytes (%) (Auto) 19.2 % (20.0-45.0) L Monocytes (%) (Auto) 9.1 % (1.0-10.0) Eosinophils (%) (Auto) 1.7 % (0.0-3.0) Basophils (%) (Auto) 1.0 % (0.0-2.0) Sodium Level 131 MMOL/L (136-145) L Potassium Level 7.1 MMOL/L (3.5-5.1) *H Chloride Level 97 MMOL/L (98-107) L Carbon Dioxide Level 19 MMOL/L (21-32) L Anion Gap 16 mmol/L (5-15) H Blood Urea Nitrogen 90 mg/dL (7-18) H Creatinine 13.8 MG/DL (0.55-1.30) H Estimat Glomerular Filtration Rate 3.3 mL/min (>60) Glucose Level 54 MG/DL (74-106) L Hemoglobin A1c 4.2 % (4.3-6.0) L Calcium Level 7.8 MG/DL (8.5-10.1) L Phosphorus Level 8.9 MG/DL (2.5-4.9) H Magnesium Level 2.6 MG/DL (1.8-2.4) H Total Bilirubin 0.5 MG/DL (0.2-1.0) Gamma Glutamyl Transpeptidase 355 U/L (5-85) H Aspartate Amino Transf (AST/SGOT) 35 U/L (15-37) Alanine Aminotransferase (ALT/SGPT) 14 U/L (12-78) Alkaline Phosphatase 89 U/L (46-116) Troponin I 0.011 ng/mL (0.000-0.056) C-Reactive Protein, Quantitative Pending Pro-B-Type Natriuretic Peptide > 99841 pg/mL (0-125) H Total Protein 10.0 G/DL (6.4-8.2) H Albumin 3.6 G/DL (3.4-5.0) Globulin 6.4 g/dL Albumin/Globulin Ratio 0.6 (1.0-2.7) L Triglycerides Level 131 MG/DL (30-150) Cholesterol Level 113 MG/DL (< 200) LDL Cholesterol 44 mg/dL (<100) HDL Cholesterol 45 MG/DL (40-60) Cholesterol/HDL Ratio 2.5 (3.3-4.4) L Thyroid Stimulating Hormone (TSH) 2.709 uiU/mL (0.358-3.740) Hepatitis B Surface Antigen Pending Microbiology Date/Time Source Procedure Growth Status 08/07/20 22:30 Nasopharynx SARS-CoV-2 RdRp Gene Assay - Final Complete Assessment/Plan Assessment/Plan Missed dialysis Possible acute/subacute cholecystitis vs colitis HyperKalemia ESRD hypertension/HHD Conduction system dis Paroxy SVT Ac/chronic diastolic CHF HIV+ Hep C + HD/UF Abx Symptom-guided pain therapy Titrate antiHTN regimen Avoid all drugs with negative chronotropic potential; patient has refused pacemaker Nam Barnett MD Aug 08, 2020 03:16
[2020-08-08 04:00] VITALS: BP 131/81
--- NOTE | 2020-08-08 04:00 | NUR ---
NURSE NOTES: HR went up to 120bpm without symptoms. BT 98.5.
[2020-08-08] MEDS: HydrALAZINE 25mg tab ORAL SCH ×3 (06:40→21:20)
[2020-08-08] MEDS: Levothyroxine 25mcg tab ORAL SCH (06:40)
[2020-08-08] MEDS: Zosyn 2.25 gm in D5W 55ml IV SCH ×3 (06:40→21:21)
[2020-08-08] MEDS: HydrOXYzine tab 25mg tab ORAL SCH ×3 (06:40→21:20)
--- NOTE | 2020-08-08 07:25 | NUR ---
NURSE NOTES: Received patient in bed. Awake, A/O x3. On room air, respirations unlabored. Patient denies pain. IV in the Right EJ, site intact. Patient is NPO. Bed low and locked, side rails up x2, call light within reach with return demonstration.
--- NOTE | 2020-08-08 07:40 | NUR ---
NURSE HAND-OFF REPORT: Important Events on Shift: Elevated BT/ ST noted. Patient Status: [stable] Diet: [NPO except ice chips and po medication] Pending Orders: [] Pending Results/Labs:[] Pending MD notification:[] Latest Vital Signs: Temperature 98.5 , Pulse 121 , B/P 131 /81 , Respiratory Rate 18 , O2 SAT 96 , Room Air, O2 Flow Rate . Vital Sign Comment: [] EKG Rhythm: Sinus Rhythm Rhythm change?: N MD Notified?: - MD Response: Latest Espinoza Fall Score: 60 Fall Risk: High Risk Safety Measures: Call light Within Reach, Bed Alarm Zone 1, Side Rails Side Rails x3, Bed position Low and Locked. Fall Precautions: Y Door Sign Patient Fall Education Report given to MARTIN Hughes. Round is made.
[2020-08-08 08:00] VITALS: BP 139/67
[2020-08-08 08:00] LABS: HEMATOCRIT 33.7 % (37.0-47.0); HEMOGLOBIN 10.6 G/DL (12.0-16.0); MEAN CORPUSCULAR VOLUME 93 FL (80-99); PLATELET COUNT 143 K/UL (150-450); RED BLOOD COUNT 3.62 M/UL (4.20-5.40); RED CELL DISTRIBUTION WIDTH 18.4 % (11.6-14.8); WHITE BLOOD COUNT 3.2 K/UL (4.8-10.8)
[2020-08-08 08:29] LABS: ALANINE AMINOTRANSFERASE 11 U/L (12-78); ALBUMIN/GLOBULIN RATIO 0.5 (1.0-2.7); ALKALINE PHOSPHATASE 75 U/L (46-116); ANION GAP 13 mmol/L (5-15); ASPARTATE AMINO TRANSFERASE 34 U/L (15-37); BILIRUBIN,TOTAL 0.5 MG/DL (0.2-1.0); BLOOD UREA NITROGEN 48 mg/dL (7-18); CALCIUM 7.6 MG/DL (8.5-10.1); CARBON DIOXIDE 25 MMOL/L (21-32); CHLORIDE 102 MMOL/L (98-107); CREATININE 9.5 MG/DL (0.55-1.30); PHOSPHORUS 7.6 MG/DL (2.5-4.9); POTASSIUM 3.9 MMOL/L (3.5-5.1); SODIUM 140 MMOL/L (136-145)
[2020-08-08] MEDS: Heparin 5000 units/ml inj SUBQ SCH ×2 (09:00→21:00)
--- NOTE | 2020-08-08 09:26 | Nephrology Progress Note ---
Assessment/Plan Problem List: (1) Hyperkalemia (2) ESRD (end stage renal disease) on dialysis (3) Substance abuse (4) Hypertension (5) HCV antibody positive (6) Intractable abdominal pain (7) HIV disease Assessment End-stage renal disease on hemodialysis Presents with hyperkalemia History of substance abuse, cocaine Fluid overload HIV disease Hepatitis C virus antibody positive Hypertensive kidney disease Noncompliance with diet and dialysis Anemia of chronic kidney disease Plan August 08: Labs reviewed. High potassium normalized. Patient was dialyzed y esterday. Due for dialysis tomorrow. Will start Cytomel 5 mg for low T3 Previously: Patient currently on dialysis against low potassium bath Ultrafiltration Keep the blood pressure in check Continue per PMD Per orders Subjective ROS Limited/Unobtainable: No Constitutional: Reports: malaise Objective Objective Last 24 Hour Vital Signs Date Time Temp Pulse Resp B/P (MAP) Pulse Ox O2 Delivery O2 Flow Rate FiO2 08/08/20 08:00 96.8 93 21 139/67 (91) 98 08/08/20 06:40 131/81 08/08/20 04:00 98.5 121 18 131/81 (98) 96 08/08/20 04:00 89 08/08/20 01:00 98.5 08/08/20 00:30 98.5 08/08/20 00:00 100.5 84 18 124/69 (87) 97 08/08/20 00:00 83 08/07/20 22:18 141/74 08/07/20 21:30 99.9 96 18 141/74 (96) 98 08/07/20 21:00 Room Air 08/07/20 20:00 100.2 96 18 121/73 (89) 98 08/07/20 20:00 100 08/07/20 16:00 101.0 97 20 135/66 (89) 95 08/07/20 16:00 100 08/07/20 14:00 128/62 08/07/20 12:00 92 08/07/20 12:00 97.7 113 18 128/62 (84) 96 08/07/20 09:27 97.9 Intake and Output 08/07/20 08/08/20 19:00 07:00 Intake Total 110.0 ml Output Total 2000 ml Balance -1890.0 ml IV Total 110.0 ml Output Hemodialysis UF 2000 ml # Bowel Movements 2 Current Medications Medications (Trade) Dose Ordered Sig/Rochelle Route PRN Reason Start Time Stop Time Status Last Admin Dose Admin Acetaminophen (Tylenol) 650 mg Q6H PRN ORAL FOR FEVER 08/07/20 21:45 09/06/20 21:44 08/07/20 23:35 Acetaminophen/ Hydrocodone Bitart (Warren 10/325) 1 tab DAILY PRN ORAL For Pain 08/06/20 22:45 08/13/20 22:44 Amlodipine Besylate (Norvasc) 10 mg DAILY ORAL 08/07/20 09:00 09/06/20 08:59 08/08/20 09:32 Chlorhexidine Gluconate (Mamie-Hex 2%) 1 applic DAILY TOPIC 08/07/20 20:00 11/05/20 19:59 08/08/20 09:31 Docusate Sodium (Colace) 100 mg TID ORAL 08/07/20 13:00 09/06/20 08:59 08/08/20 09:32 Dolutegravir Sodium (Tivicay) 50 mg DAILY ORAL 08/07/20 09:00 11/05/20 08:59 UNV Escitalopram Oxalate (Lexapro) 10 mg DAILY ORAL 08/07/20 09:00 09/06/20 08:59 08/08/20 09:31 Heparin Sodium (Porcine) (Heparin 5000 units/ml) 5,000 units EVERY 12 HOURS SUBQ 08/07/20 09:00 09/21/20 08:59 Hydralazine HCl (Apresoline) 75 mg EVERY 8 HOURS ORAL 08/07/20 06:00 11/05/20 05:59 08/08/20 13:30 Hydroxyzine HCl (Atarax) 25 mg Q8HR ORAL 08/07/20 14:00 09/05/20 22:44 08/08/20 13:30 Levothyroxine Sodium (Synthroid) 75 mcg BEFORE BREAKFAST ORAL 08/07/20 06:30 09/06/20 06:29 08/08/20 06:40 Lorazepam (Ativan) 1 mg TIDPRN PRN ORAL anxiety 08/07/20 12:58 08/14/20 12:57 Morphine Sulfate (Morphine Sulfate) 1 mg Q4H PRN IVP Severe Pain (Pain Scale 7-10) 08/06/20 22:45 08/13/20 22:44 08/07/20 08:57 Ondansetron HCl (Zofran) 4 mg Q6H PRN IVP Nausea & Vomiting 08/06/20 22:45 09/05/20 22:44 Pantoprazole (Protonix) 40 mg BID ORAL 08/07/20 09:00 09/06/20 08:59 08/08/20 09:32 Piperacillin Sod/ Tazobactam Sod 2.25 gm/Dextrose 55 ml @ 110 mls/hr Q8HR IV 08/07/20 22:00 08/12/20 21:59 08/08/20 13:30 Sevelamer Carbonate (Renvela) 2,400 mg THREE TIMES A DAY ORAL 08/07/20 13:00 11/05/20 12:59 08/08/20 13:30 Trazodone HCl (Desyrel) 50 mg BID ORAL 08/06/20 23:00 09/05/20 22:59 08/08/20 09:31 Vancomycin HCl ([facility] pharmacy to dose) 1 ea DAILY PRN MISC Per rx protocol 08/07/20 21:45 09/06/20 21:44 Laboratory Tests 08/08/20 06:49: White Blood Count 3.2L, Red Blood Count 3.62L, Hemoglobin 10.6L, Hematocrit 33.7L, Mean Corpuscular Volume 93, Mean Corpuscular Hemoglobin 29.2, Mean Corpuscular Hemoglobin Concent 31.4L, Red Cell Distribution Width 18.4H, Platelet Count 143L, Mean Platelet Volume 6.7, Neutrophils (%) (Auto) , Lymphocytes (%) (Auto) , Monocytes (%) (Auto) , Eosinophils (%) (Auto) , Basophils (%) (Auto) , Neutrophils % (Manual) [Pending], Lymphocytes % (Manual) [Pending], Platelet Estimate [Pending], Platelet Morphology [Pending], Sodium Level 140, Potassium Level 3.9, Chloride Level 102, Carbon Dioxide Level 25, Anion Gap 13, Blood Urea Nitrogen 48H, Creatinine 9.5H, Estimat Glomerular Filtration Rate 5.0, Glucose Level 51L, Calcium Level 7.6L, Phosphorus Level 7.6H, Magnesium Level 2.5H, Total Bilirubin 0.5, Aspartate Amino Transf (AST/SGOT) 34, Alanine Aminotransferase (ALT/SGPT) 11L, Alkaline Phosphatase 75, C-Reactive Protein, Quantitative [Pending], Pro-B-Type Natriuretic Peptide > 80895L, Total Protein 9.1H, Albumin 3.0L, Globulin 6.1, Albumin/Globulin Ratio 0.5L, Thyroid Stimulating Hormone (TSH) 1.210, Free Thyroxine 1.08, Free Triiodothyronine 0.7L, Random Vancomycin Level 19.0 Height (Feet): 5 Height (Inches): 6.00 Weight (Pounds): 150 General Appearance: no apparent distress Cardiovascular: normal rate Respiratory/Chest: decreased breath sounds Abdomen: soft Jack Pryor MD Aug 08, 2020 09:26
[2020-08-08] MEDS: Dyna-Hex 2% Top Sol 2oz TOPIC SCH (09:31)
[2020-08-08] MEDS: TraZODone 50mg tab ORAL SCH ×2 (09:31→17:57)
[2020-08-08] MEDS: Docusate 100mg cap ORAL SCH ×3 (09:32→17:57)
--- NOTE | 2020-08-08 11:09 | NUR ---
RD ASSESSMENT & RECOMMENDATIONS SEE CARE ACTIVITY FOR COMPLETE ASSESSMENT DAILY ESTIMATED NEEDS: Needs based on ESRD on HD, wound 67kg abw 25-35 kcals/kg 2842-2474 total kcals 1.25-1.8 g protein/kg 84-121 g total protein fluid per MD, on HD NUTRITION DIAGNOSIS: Increased kcal and pro needs r/t renal dysfunction as evidenced by pt w/ esrd on HD. CURRENT DIET: NPO PO DIET RECOMMENDATIONS: RENAL/ LOW FAT DIET ADDITIONAL RECOMMENDATIONS: 1) Daily calibrated bed scale 2) Advance diet to CLD as per MD Add Ensure Clear TID w/ clear diet meals Advance as tolerated to renal / low fat diet 4) Rec regular accuchecks- pt has had 2 hypoglycemic episodes (51 54) 5) WC eval .
[2020-08-08 12:00] VITALS: BP 130/87
--- NOTE | 2020-08-08 12:38 | NUR ---
RADIOLOGY DEPT., ABDOMEN X-RAY DONE.-P.DYE
--- NOTE | 2020-08-08 14:35 | Diagnostic Imaging Report ---
Indication: Abdominal pain Technique: Supine view of the abdomen Comparison: 02/14/2020 Findings: Bowel loops are gas-filled, prominent, but not frankly dilated. No masses or unusual calcifications. The tip of the dialysis catheter is again demonstrated. A radiopaque foreign body projects over the expected level of the gastroesophageal junction, also previously demonstrated. On prior CT, this is shown to be within the gastric cardia, may reflect an endoscopic marker clip Impression: Findings as noted. No definite acute process
--- NOTE | 2020-08-08 14:52 | Surgery Progress Note ---
Surgery Progress Note Subjective Symptoms: improved, passing flatus, BM, pain decreased Objective Last 24 Hour Vital Signs Date Time Temp Pulse Resp B/P (MAP) Pulse Ox O2 Delivery O2 Flow Rate FiO2 08/08/20 13:30 130/87 08/08/20 12:00 98.1 79 21 130/87 (101) 98 08/08/20 09:32 93 139/67 08/08/20 09:00 Room Air 08/08/20 08:00 87 08/08/20 08:00 96.8 93 21 139/67 (91) 98 08/08/20 06:40 131/81 08/08/20 04:00 98.5 121 18 131/81 (98) 96 08/08/20 04:00 89 08/08/20 01:00 98.5 08/08/20 00:30 98.5 08/08/20 00:00 100.5 84 18 124/69 (87) 97 08/08/20 00:00 83 08/07/20 22:18 141/74 08/07/20 21:30 99.9 96 18 141/74 (96) 98 08/07/20 21:00 Room Air 08/07/20 20:00 100.2 96 18 121/73 (89) 98 08/07/20 20:00 100 08/07/20 16:00 101.0 97 20 135/66 (89) 95 08/07/20 16:00 100 I&O Intake and Output 08/07/20 08/08/20 19:00 07:00 Intake Total 110.0 ml Output Total 2000 ml Balance -1890.0 ml IV Total 110.0 ml Output Hemodialysis UF 2000 ml # Bowel Movements 2 Cardiovascular: RSR Respiratory: clear Abdomen: soft, non-tender, present bowel sounds, non-distended Extremities: edema, no tenderness, no cyanosis Laboratory Tests Test 08/08/20 06:49 White Blood Count 3.2 K/UL (4.8-10.8) L Red Blood Count 3.62 M/UL (4.20-5.40) L Hemoglobin 10.6 G/DL (12.0-16.0) L Hematocrit 33.7 % (37.0-47.0) L Mean Corpuscular Volume 93 FL (80-99) Mean Corpuscular Hemoglobin 29.2 PG (27.0-31.0) Mean Corpuscular Hemoglobin Concent 31.4 G/DL (32.0-36.0) L Red Cell Distribution Width 18.4 % (11.6-14.8) H Platelet Count 143 K/UL (150-450) L Mean Platelet Volume 6.7 FL (6.5-10.1) Neutrophils (%) (Auto) % (45.0-75.0) Lymphocytes (%) (Auto) % (20.0-45.0) Monocytes (%) (Auto) % (1.0-10.0) Eosinophils (%) (Auto) % (0.0-3.0) Basophils (%) (Auto) % (0.0-2.0) Differential Total Cells Counted 100 Neutrophils % (Manual) 64 % (45-75) Lymphocytes % (Manual) 24 % (20-45) Monocytes % (Manual) 10 % (1-10) Eosinophils % (Manual) 2 % (0-3) Basophils % (Manual) 0 % (0-2) Band Neutrophils 0 % (0-8) Platelet Estimate Decreased L Platelet Morphology Normal Hypochromasia 1+ Anisocytosis 1+ Sodium Level 140 MMOL/L (136-145) Potassium Level 3.9 MMOL/L (3.5-5.1) Chloride Level 102 MMOL/L (98-107) Carbon Dioxide Level 25 MMOL/L (21-32) Anion Gap 13 mmol/L (5-15) Blood Urea Nitrogen 48 mg/dL (7-18) H Creatinine 9.5 MG/DL (0.55-1.30) H Estimat Glomerular Filtration Rate 5.0 mL/min (>60) Glucose Level 51 MG/DL (74-106) L Calcium Level 7.6 MG/DL (8.5-10.1) L Phosphorus Level 7.6 MG/DL (2.5-4.9) H Magnesium Level 2.5 MG/DL (1.8-2.4) H Total Bilirubin 0.5 MG/DL (0.2-1.0) Aspartate Amino Transf (AST/SGOT) 34 U/L (15-37) Alanine Aminotransferase (ALT/SGPT) 11 U/L (12-78) L Alkaline Phosphatase 75 U/L (46-116) C-Reactive Protein, Quantitative Pending Pro-B-Type Natriuretic Peptide > 45903 pg/mL (0-125) H Total Protein 9.1 G/DL (6.4-8.2) H Albumin 3.0 G/DL (3.4-5.0) L Globulin 6.1 g/dL Albumin/Globulin Ratio 0.5 (1.0-2.7) L Thyroid Stimulating Hormone (TSH) 1.210 uiU/mL (0.358-3.740) Free Thyroxine 1.08 NG/DL (0.76-1.46) Free Triiodothyronine 0.7 pg/mL (2.3-4.2) L Random Vancomycin Level 19.0 ug/mL Plan Problems: (1) Hyperkalemia (2) CHF (congestive heart failure), NYHA class II (3) ESRD (end stage renal disease) on dialysis (4) Sick sinus syndrome (5) Fluid overload (6) Substance abuse (7) Cocaine abuse (8) Anxiety (9) Cirrhosis (10) Pruritus (11) Cholecystitis, acute (12) Weakness (13) Hypertension (14) HIV disease (15) Cyst of skin (16) Epileptic seizure, generalized (17) Open wound of chest wall (18) Adnexal mass (19) HCV antibody positive (20) Hypertensive urgency (21) Intractable abdominal pain (22) Recurrent vulvovaginal herpes simplex (23) Abdominal pain Assessment & Plan: This is a 70-year-old female well-known to me with recent episode of acute cholecystitis treated conservative management given her significant history who presents with abdominal pain generalized to all 4 out of 10 associated nausea currently no emesis passing flatus having diarrhea. Afebrile hemodynamically stable labs noted missed dialysis. Abdominal exam with mild discomfort no peritonitis. LFTs okay. Ultrasound reviewed. Unlikely acute cholecystitis can. Abdominal pain potentially diarrhea infectious etiology enteritis. Okay for diet. Dialysis as per nephrology. Electrolyte imbalance will improve. Will monitor and follow with serial exams. Hold on further radiology for now. May consider CT if not improving. Thank you for letting participate patient's care will follow with recommendations kub noted start oral diet Liver: Subjective hepatomegaly. No intrahepatic bile duct dilation. Gallbladder: The gallbladder is distended measuring up to 4 cm in short axis. There are shadowing gallstones as well as gallbladder sludge. Negative for gallbladder wall thickening or pericholecystic fluid. Common bile duct: Negative for biliary ductal dilatation. No stones. Pancreas: Unremarkable as visualized. Kidneys: Limited imaging of both kidneys demonstrates bilateral renal atrophy and increased cortical echogenicity suggesting chronic medical renal disease. No stones. No hydronephrosis. Spleen: Splenomegaly with long axis of the spleen measuring up to 16 cm. Aorta: Unremarkable. No aneurysm. Inferior vena cava: Unremarkable. IMPRESSION: Hepatosplenomegaly and kidneys with appearance of chronic medical renal disease. Cholelithiasis without biliary ductal dilatation. Deon Crowe Aug 08, 2020 14:52
--- NOTE | 2020-08-08 15:54 | General Progress Note ---
Subjective ROS Limited/Unobtainable: No Constitutional: Reports: malaise, weakness HEENT: Reports: no symptoms Cardiovascular: Reports: no symptoms Respiratory: Reports: cough, shortness of breath Gastrointestinal/Abdominal: Reports: no symptoms Genitourinary: Reports: no symptoms Neurologic/Psychiatric: Reports: pre-existing deficit Endocrine: Reports: no symptoms Hematologic/Lymphatic: Reports: anemia Allergies: Coded Allergies: ASPIRIN (Unverified Allergy, Unknown, 01/16/20) IODINE (Verified Allergy, Unknown, 01/07/20) Uncoded Allergies: CONTRAST DYE (Allergy, Unknown, 01/07/20) NSAID (Allergy, Unknown, 04/24/20) All Systems: reviewed and negative except above Subjective no events. w/o complaints. had low grade fevers last night. cultures ordered, abx broadened. decreased abd pain. surgery noted. Objective Last 24 Hour Vital Signs Date Time Temp Pulse Resp B/P (MAP) Pulse Ox O2 Delivery O2 Flow Rate FiO2 08/08/20 13:30 130/87 08/08/20 12:00 98.1 79 21 130/87 (101) 98 08/08/20 09:32 93 139/67 08/08/20 09:00 Room Air 08/08/20 08:00 87 08/08/20 08:00 96.8 93 21 139/67 (91) 98 08/08/20 06:40 131/81 08/08/20 04:00 98.5 121 18 131/81 (98) 96 08/08/20 04:00 89 08/08/20 01:00 98.5 08/08/20 00:30 98.5 08/08/20 00:00 100.5 84 18 124/69 (87) 97 08/08/20 00:00 83 08/07/20 22:18 141/74 08/07/20 21:30 99.9 96 18 141/74 (96) 98 08/07/20 21:00 Room Air 08/07/20 20:00 100.2 96 18 121/73 (89) 98 08/07/20 20:00 100 08/07/20 16:00 101.0 97 20 135/66 (89) 95 08/07/20 16:00 100 Intake and Output 08/07/20 08/08/20 19:00 07:00 Intake Total 110.0 ml Output Total 2000 ml Balance -1890.0 ml IV Total 110.0 ml Output Hemodialysis UF 2000 ml # Bowel Movements 2 Laboratory Tests 08/08/20 06:49: White Blood Count 3.2L, Red Blood Count 3.62L, Hemoglobin 10.6L, Hematocrit 33.7L, Mean Corpuscular Volume 93, Mean Corpuscular Hemoglobin 29.2, Mean Corpuscular Hemoglobin Concent 31.4L, Red Cell Distribution Width 18.4H, Platelet Count 143L, Mean Platelet Volume 6.7, Neutrophils (%) (Auto) , Lymphocytes (%) (Auto) , Monocytes (%) (Auto) , Eosinophils (%) (Auto) , Baso phils (%) (Auto) , Differential Total Cells Counted 100, Neutrophils % (Manual) 64, Lymphocytes % (Manual) 24, Monocytes % (Manual) 10, Eosinophils % (Manual) 2, Basophils % (Manual) 0, Band Neutrophils 0, Platelet Estimate DecreasedL, Platelet Morphology Normal, Hypochromasia 1+, Anisocytosis 1+, Sodium Level 140, Potassium Level 3.9, Chloride Level 102, Carbon Dioxide Level 25, Anion Gap 13, Blood Urea Nitrogen 48H, Creatinine 9.5H, Estimat Glomerular Filtration Rate 5.0, Glucose Level 51L, Calcium Level 7.6L, Phosphorus Level 7.6H, Magnesium Level 2.5H, Total Bilirubin 0.5, Aspartate Amino Transf (AST/SGOT) 34, Alanine Aminotransferase (ALT/SGPT) 11L, Alkaline Phosphatase 75, C-Reactive Protein, Quantitative [Pending], Pro-B-Type Natriuretic Peptide > 71855A, Total Protein 9.1H, Albumin 3.0L, Globulin 6.1, Albumin/Globulin Ratio 0.5L, Thyroid Stimulating Hormone (TSH) 1.210, Free Thyroxine 1.08, Free Triiodothyronine 0.7L , Random Vancomycin Level 19.0 Height (Feet): 5 Height (Inches): 6.00 Weight (Pounds): 150 General Appearance: WD/WN, alert EENT: normal ENT inspection Neck: normal alignment, supple Cardiovascular: normal peripheral pulses, normal rate, regular rhythm Respiratory/Chest: chest wall non-tender, lungs clear, normal breath sounds, no respiratory distress, no accessory muscle use Abdomen: normal bowel sounds, non tender, soft, no organomegaly, no mass Edema: no edema noted Leg (L), no edema noted Leg (R) Edema: trace edema 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, alert, responsive Assessment/Plan Problem List: (1) Abdominal pain ICD Codes: R10.9 - Unspecified abdominal pain SNOMED: 44339491 (2) Epileptic seizure, generalized ICD Codes: G40.309 - Generalized idiopathic epilepsy and epileptic syndromes, not intractable, without status epilepticus SNOMED: 36445425 (3) Hypertension ICD Codes: I10 - Essential (primary) hypertension SNOMED: 27128964 (4) Anxiety ICD Codes: F41.9 - Anxiety disorder, unspecified SNOMED: 29948247 (5) Cocaine abuse ICD Codes: F14.10 - Cocaine abuse, uncomplicated SNOMED: 85514697 (6) Cirrhosis ICD Codes: K74.60 - Unspecified cirrhosis of liver SNOMED: 23569017 (7) CHF (congestive heart failure), NYHA class II ICD Codes: I50.9 - Heart failure, unspecified SNOMED: 615594935, 964360773 (8) ESRD (end stage renal disease) on dialysis ICD Codes: N18.6 - End stage renal disease; Z99.2 - Dependence on renal dialysis SNOMED: 012017546 (9) Sick sinus syndrome ICD Codes: I49.5 - Sick sinus syndrome SNOMED: 40445866 Status: stable Assessment/Plan: stable cont current rx iv abx follow up cultures ID eval HD per renal pain rx as needed Michael Peralta MD Aug 08, 2020 15:53
[2020-08-08 16:00] VITALS: BP 132/78
--- NOTE | 2020-08-08 17:14 | NUR ---
NURSE NOTES:WOUND CARE NOTES: Pt presented on admission with Moisture Intertrigo sacral cleft of buttocks. Scattered partial thickness wounds noted to R and L gluteal cleft. Pt's hygiene is grossly neglected.B and B incontinence noted. Pt moves independently in bed and has been educated on wound prevention. Encouraged to frequently reposition self while in bed . Pt also encouraged to call staff to assist to bathroom or for a bedpan to avoid prolonged exposure to Incontinence. Tx.Plan: Apply Moisture Barrier Paste to buttocks with each incontinence care. Cue and encourage pt to frequently reposition self in bed.
--- NOTE | 2020-08-08 19:13 | NUR ---
NURSE NOTES: HD scheduled for tomorrow, spoke to Sebastián in [facility] nephrology.
--- NOTE | 2020-08-08 19:16 | NUR ---
NURSE HAND-OFF REPORT: Important Events on Shift:[Abdomen XR, clear liquids started] Patient Status: [FULL CODE/stable] Diet: [clears] Pending Orders: [] Pending Results/Labs:[] Pending MD notification:[] Latest Vital Signs: Temperature 96.8 , Pulse 81 , B/P 132 /78 , Respiratory Rate 19 , O2 SAT 97 , Room Air, O2 Flow Rate . Vital Sign Comment: [] EKG Rhythm: Sinus Rhythm Rhythm change?: N MD Notified?: - MD Response: Latest Espinoza Fall Score: 60 Fall Risk: High Risk Safety Measures: Call light Within Reach, Bed Alarm Zone 1, Side Rails Side Rails x2, Bed position Low and Locked. Fall Precautions: Door Sign Patient Fall Education Report given to [Oh RN].
--- NOTE | 2020-08-08 19:20 | NUR ---
NURSE NOTES: Receive a report from MARTIN Hughes. Round is made. Pt is asleep without acute distress. Perma catheter is KOREY, intact. Planning on HD tomorrow. Call light within reach. Will continue to follow up.
[2020-08-08 20:00] VITALS: BP 133/79
--- NOTE | 2020-08-08 21:45 | NUR ---
NURSE NOTES: Pt has been moaning for pain. confirm with Dr. Peralta to give pt prn pain medication as ordered.
[2020-08-08] MEDS: HYDROcodone/Acetamin 10/325 tab ORAL PRN (21:54)
[2020-08-09] VITALS: BP 138/76
--- NOTE | 2020-08-09 01:06 | Cardiology Progress Note ---
Subjective DATE OF SERVICE: Aug 08, 2020 C/O abd pain. S/P HD/UF No new fever spikes. BP paramters improved Objective Last 24 Hour Vital Signs Date Time Temp Pulse Resp B/P (MAP) Pulse Ox O2 Delivery O2 Flow Rate FiO2 08/09/20 00:00 123 08/08/20 21:20 133/79 08/08/20 21:00 Room Air 08/08/20 20:00 115 08/08/20 20:00 98.6 118 19 133/79 (97) 100 08/08/20 16:00 80 08/08/20 16:00 96.8 81 19 132/78 (96) 97 08/08/20 13:30 130/87 08/08/20 12:00 98.1 79 21 130/87 (101) 98 08/08/20 12:00 81 08/08/20 09:32 93 139/67 08/08/20 09:00 Room Air 08/08/20 08:00 87 08/08/20 08:00 96.8 93 21 139/67 (91) 98 08/08/20 06:40 131/81 08/08/20 04:00 98.5 121 18 131/81 (98) 96 08/08/20 04:00 89 ROS: unchanged RHYTHM: NSR, PACs LUNGS: lungs clear bilaterally CARDIAC: normal rate, regular rhythm, normal S1 and S2, gallop/S4 ABDOMEN: normal bowel sounds, soft, tender - Upper quads R>>L EXTREMITIES: non-tender, trace edema Laboratory Tests Test 08/08/20 06:49 White Blood Count 3.2 K/UL (4.8-10.8) L Red Blood Count 3.62 M/UL (4.20-5.40) L Hemoglobin 10.6 G/DL (12.0-16.0) L Hematocrit 33.7 % (37.0-47.0) L Mean Corpuscular Volume 93 FL (80-99) Mean Corpuscular Hemoglobin 29.2 PG (27.0-31.0) Mean Corpuscular Hemoglobin Concent 31.4 G/DL (32.0-36.0) L Red Cell Distribution Width 18.4 % (11.6-14.8) H Platelet Count 143 K/UL (150-450) L Mean Platelet Volume 6.7 FL (6.5-10.1) Neutrophils (%) (Auto) % (45.0-75.0) Lymphocytes (%) (Auto) % (20.0-45.0) Monocytes (%) (Auto) % (1.0-10.0) Eosinophils (%) (Auto) % (0.0-3.0) Basophils (%) (Auto) % (0.0-2.0) Differential Total Cells Counted 100 Neutrophils % (Manual) 64 % (45-75) Lymphocytes % (Manual) 24 % (20-45) Monocytes % (Manual) 10 % (1-10) Eosinophils % (Manual) 2 % (0-3) Basophils % (Manual) 0 % (0-2) Band Neutrophils 0 % (0-8) Platelet Estimate Decreased L Platelet Morphology Normal Hypochromasia 1+ Anisocytosis 1+ Sodium Level 140 MMOL/L (136-145) Potassium Level 3.9 MMOL/L (3.5-5.1) Chloride Level 102 MMOL/L (98-107) Carbon Dioxide Level 25 MMOL/L (21-32) Anion Gap 13 mmol/L (5-15) Blood Urea Nitrogen 48 mg/dL (7-18) H Creatinine 9.5 MG/DL (0.55-1.30) H Estimat Glomerular Filtration Rate 5.0 mL/min (>60) Glucose Level 51 MG/DL (74-106) L Calcium Level 7.6 MG/DL (8.5-10.1) L Phosphorus Level 7.6 MG/DL (2.5-4.9) H Magnesium Level 2.5 MG/DL (1.8-2.4) H Total Bilirubin 0.5 MG/DL (0.2-1.0) Aspartate Amino Transf (AST/SGOT) 34 U/L (15-37) Alanine Aminotransferase (ALT/SGPT) 11 U/L (12-78) L Alkaline Phosphatase 75 U/L (46-116) C-Reactive Protein, Quantitative 10.1 mg/L (<5) H Pro-B-Type Natriuretic Peptide > 95654 pg/mL (0-125) H Total Protein 9.1 G/DL (6.4-8.2) H Albumin 3.0 G/DL (3.4-5.0) L Globulin 6.1 g/dL Albumin/Globulin Ratio 0.5 (1.0-2.7) L Thyroid Stimulating Hormone (TSH) 1.210 uiU/mL (0.358-3.740) Free Thyroxine 1.08 NG/DL (0.76-1.46) Free Triiodothyronine 0.7 pg/mL (2.3-4.2) L Random Vancomycin Level 19.0 ug/mL Microbiology Date/Time Source Procedure Growth Status 08/07/20 22:30 Nasopharynx SARS-CoV-2 RdRp Gene Assay - Final Complete Assessment/Plan Assessment/Plan Missed dialysis Low likelihood for acute/subacute cholecystitis HyperKalemia Possible infectious colitis ESRD hypertension/HHD Conduction system dis Paroxy SVT Ac/chronic diastolic CHF HIV+ Hep C + HD/UF Abx Pain control rx Titrate antiHTN regimen Avoid all drugs with negative chronotropic potential; patient has refused pace maker Nam Barnett MD Aug 09, 2020 01:05
[2020-08-09 04:00] VITALS: BP 150/75
--- NOTE | 2020-08-09 05:00 | NUR ---
NURSE NOTES: Pt had loose BM with urine. Was not collect for urine. Dressing on sacum is done with Triad and opticform. Noted moaning for pain. Will provide prn pain medication.
[2020-08-09] MEDS: HydrOXYzine tab 25mg tab ORAL SCH ×3 (05:36→21:32)
[2020-08-09] MEDS: HYDROcodone/Acetamin 10/325 tab ORAL PRN (05:36)
[2020-08-09] MEDS: Levothyroxine 25mcg tab ORAL SCH (05:36)
[2020-08-09] MEDS: HydrALAZINE 25mg tab ORAL SCH ×3 (05:37→21:32)
[2020-08-09] MEDS: Zosyn 2.25 gm in D5W 55ml IV SCH ×3 (06:34→21:33)
--- NOTE | 2020-08-09 07:12 | NUR ---
NURSE HAND-OFF REPORT: Important Events on Shift: Pain control x2. Dressing changed. Pt is feeling hungry. Planning on HD today Patient Status: [stable] Diet: [clear liquid diet] Pending Orders: [] Pending Results/Labs:[] Pending MD notification:[] Latest Vital Signs: Temperature 98.0 , Pulse 100 , B/P 150 /75 , Respiratory Rate 19 , O2 SAT 98 , Room Air, O2 Flow Rate . Vital Sign Comment: [] EKG Rhythm: Sinus Rhythm Rhythm change?: N MD Notified?: - MD Response: Latest Espinoza Fall Score: 60 Fall Risk: High Risk Safety Measures: Call light Within Reach, Bed Alarm Zone 1, Side Rails Side Rails x2, Bed position Low and Locked. Fall Precautions: Yellow Gown Door Sign Patient Fall Education
--- NOTE | 2020-08-09 07:38 | NUR ---
HAND-OFF: Report given to MARTIN Adamson. Round is made.
--- NOTE | 2020-08-09 07:50 | NUR ---
NURSE NOTES: Received patient in bed awake. No SOB or acute distress. IV line intact. Permacath intact, dressing clean. Complains of itching. HOB elevated. Bed locked in low position. Call light within reach. Will continue plan of care.
--- NOTE | 2020-08-09 07:51 | NUR ---
NURSE NOTES: For HD today, dialysis nurse Young aware.
[2020-08-09 08:00] VITALS: BP 127/71
[2020-08-09] MEDS: Morphine Sulfate 2mg/ml Inj(IV/IM USE ONLY) IVP PRN ×4 (08:24→23:10)
[2020-08-09] MEDS: Liothyronine 5mcg tab ORAL SCH (08:28)
[2020-08-09] MEDS: TraZODone 50mg tab ORAL SCH ×2 (08:28→18:08)
[2020-08-09] MEDS: Heparin 5000 units/ml inj SUBQ SCH ×2 (09:00→21:35)
[2020-08-09] MEDS: Docusate 100mg cap ORAL SCH ×3 (09:00→18:00)
[2020-08-09 09:50] LABS: BASOPHILS % (AUTO) 1.9 % (0.0-2.0); EOSINOPHILS % (AUTO) 3.2 % (0.0-3.0); HEMATOCRIT 33.6 % (37.0-47.0); HEMOGLOBIN 10.4 G/DL (12.0-16.0); LYMPHOCYTES % (AUTO) 23.4 % (20.0-45.0); MEAN CORPUSCULAR VOLUME 93 FL (80-99); MONOCYTES % (AUTO) 12.5 % (1.0-10.0); NEUTROPHILS % (AUTO) 59.1 % (45.0-75.0); PLATELET COUNT 175 K/UL (150-450); RED BLOOD COUNT 3.59 M/UL (4.20-5.40); RED CELL DISTRIBUTION WIDTH 18.7 % (11.6-14.8); WHITE BLOOD COUNT 3.7 K/UL (4.8-10.8)
--- NOTE | 2020-08-09 09:53 | NUR ---
CASE MANAGEMENT:REVIEW 08/09/20 SI: HYPERKALEMIA. POSSIBLE INFECTIOUS COLITIS AC/CHR CHF. HIV. HEP C 97.7 96 20 127/71 100% ON RA IS: IV ZOSYN Q8HRS CYTOMEL PO QD ATARAX PO Q8HRD RENVELA PO TID HEPARIN SQ Q12 PROTONIX PO BID NORVASC PO QD HYDRALAZINE PO Q8 : TELEMETRY STATUS DCP: FROM HOME
[2020-08-09 10:15] LABS: ALBUMIN 2.7 G/DL (3.4-5.0); ALBUMIN/GLOBULIN RATIO 0.5 (1.0-2.7); BILIRUBIN,TOTAL 0.4 MG/DL (0.2-1.0); CALCIUM 7.2 MG/DL (8.5-10.1); CREATININE 10.5 MG/DL (0.55-1.30); POTASSIUM 4.2 MMOL/L (3.5-5.1)
--- NOTE | 2020-08-09 10:37 | General Progress Note ---
Subjective ROS Limited/Unobtainable: No Constitutional: Reports: malaise, weakness HEENT: Reports: no symptoms Cardiovascular: Reports: no symptoms Respiratory: Reports: no symptoms Gastrointestinal/Abdominal: Reports: abdominal pain Genitourinary: Reports: no symptoms Neurologic/Psychiatric: Reports: no symptoms Endocrine: Reports: no symptoms Hematologic/Lymphatic: Reports: no symptoms Allergies: Coded Allergies: ASPIRIN (Unverified Allergy, Unknown, 01/16/20) IODINE (Verified Allergy, Unknown, 01/07/20) Uncoded Allergies: CONTRAST DYE (Allergy, Unknown, 01/07/20) NSAID (Allergy, Unknown, 04/24/20) All Systems: reviewed and negative except above Subjective no new complaints. +itching. On iv abx. no more fevers. ID consult pending. tolerating HD. decreased abd pain. Objective Last 24 Hour Vital Signs Date Time Temp Pulse Resp B/P (MAP) Pulse Ox O2 Delivery O2 Flow Rate FiO2 08/09/20 09:00 Room Air 08/09/20 08:00 97.7 96 20 127/71 (89) 100 08/09/20 08:00 92 08/09/20 05:37 150/75 08/09/20 04:00 77 08/09/20 04:00 98.0 100 19 150/75 (100) 98 08/09/20 00:00 98.3 110 19 138/76 (96) 99 08/09/20 00:00 123 08/08/20 21:20 133/79 08/08/20 21:00 Room Air 08/08/20 20:00 115 08/08/20 20:00 98.6 118 19 133/79 (97) 100 08/08/20 16:00 80 08/08/20 16:00 96.8 81 19 132/78 (96) 97 08/08/20 13:30 130/87 08/08/20 12:00 98.1 79 21 130/87 (101) 98 08/08/20 12:00 81 Intake and Output 08/08/20 08/09/20 19:00 07:00 Intake Total 120 ml Output Total 1200 ml Balance -1080 ml Intake Oral 120 ml Output Urine Total 1200 ml # Voids 3 2 # Bowel Movements 1 Laboratory Tests 08/09/20 09:15: White Blood Count 3.7L, Red Blood Count 3.59L, Hemoglobin 10.4L, Hematocrit 33.6L, Mean Corpuscular Volume 93, Mean Corpuscular Hemoglobin 29.1, Mean Corpuscular Hemoglobin Concent 31.1L, Red Cell Distribution Width 18.7H, Platelet Count 175, Mean Platelet Volume 6.1L, Neutrophils (%) (Auto) 59.1, Lymphocytes (%) (Auto) 23.4, Monocytes (%) (Auto) 12.5H, Eosinophils (%) (Auto) 3.2H, Basophils (%) (Auto) 1.9, Sodium Level 139, Potassium Level 4.2, Chloride Level 101, Carbon Dioxide Level 25, Anion Gap 13, Blood Urea Nitrogen 53H, Creatinine 10.5H, Estimat Glomerular Filtration Rate 4.4, Glucose Level 114H, Calcium Level 7.2L, Total Bilirubin 0.4, Aspartate Amino Transf (AST/SGOT) 31, Alanine Aminotransferase (ALT/SGPT) 6L, Alkaline Phosphatase 62, Total Protein 8.6H, Albumin 2.7L, Globulin 5.9, Albumin/Globulin Ratio 0.5L Height (Feet): 5 Height (Inches): 6.00 Weight (Pounds): 150 Objective General Appearance: WD/WN, alert EENT: normal ENT inspection Neck: normal alignment, supple Cardiovascular: normal peripheral pulses, normal rate, regular rhythm Respiratory/Chest: chest wall non-tender, lungs clear, normal breath sounds, no respiratory distress, no accessory muscle use Abdomen: normal bowel sounds, non tender, soft, no organomegaly, no mass Edema: no edema noted Leg (L), no edema noted Leg (R) Edema: trace edema 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, alert, responsive Assessment/Plan Problem List: (1) Abdominal pain ICD Codes: R10.9 - Unspecified abdominal pain SNOMED: 34652198 (2) Epileptic seizure, generalized ICD Codes: G40.309 - Generalized idiopathic epilepsy and epileptic syndromes, not intractable, without status epilepticus SNOMED: 53023544 (3) Hypertension ICD Codes: I10 - Essential (primary) hypertension SNOMED: 05552238 (4) Anxiety ICD Codes: F41.9 - Anxiety disorder, unspecified SNOMED: 77034786 (5) Cocaine abuse ICD Codes: F14.10 - Cocaine abuse, uncomplicated SNOMED: 37851064 (6) Cirrhosis ICD Codes: K74.60 - Unspecified cirrhosis of liver SNOMED: 16025797 (7) CHF (congestive heart failure), NYHA class II ICD Codes: I50.9 - Heart failure, unspecified SNOMED: 754649113, 287421083 (8) ESRD (end stage renal disease) on dialysis ICD Codes: N18.6 - End stage renal disease; Z99.2 - Dependence on renal dialysis SNOMED: 196869130 (9) Sick sinus syndrome ICD Codes: I49.5 - Sick sinus syndrome SNOMED: 34837723 Status: stable Assessment/Plan: stable cont current rx iv abx follow up cultures ID eval pending HD per renal pain rx as needed Michael Peralta MD Aug 09, 2020 10:37
[2020-08-09 12:00] VITALS: BP 145/75
--- NOTE | 2020-08-09 12:08 | Nephrology Progress Note ---
Assessment/Plan Problem List: (1) Hyperkalemia (2) ESRD (end stage renal disease) on dialysis (3) Substance abuse (4) Hypertension (5) HCV antibody positive (6) Intractable abdominal pain (7) HIV disease Assessment End-stage renal disease on hemodialysis Presents with hyperkalemia History of substance abuse, cocaine Fluid overload HIV disease Hepatitis C virus antibody positive Hypertensive kidney disease Noncompliance with diet and dialysis Anemia of chronic kidney disease Plan August 09: Patient about to be started on dialysis. Blood pressure is stable. Continue current management. August 08: Labs reviewed. High potassium normalized. Patient was dialyzed yesterday. Due for dialysis tomorrow. Will start Cytomel 5 mg for low T3 Previously: Patient currently on dialysis against low potassium bath Ultrafiltration Keep the blood pressure in check Continue per PMD Per orders Subjective ROS Limited/Unobtainable: No Constitutional: Reports: malaise Objective Objective Last 24 Hour Vital Signs Date Time Temp Pulse Resp B/P (MAP) Pulse Ox O2 Delivery O2 Flow Rate FiO2 08/09/20 09:00 Room Air 08/09/20 09:00 92 127/71 08/09/20 08:00 97.7 96 20 127/71 (89) 100 08/09/20 08:00 92 08/09/20 05:37 150/75 08/09/20 04:00 77 08/09/20 04:00 98.0 100 19 150/75 (100) 98 08/09/20 00:00 98.3 110 19 138/76 (96) 99 08/09/20 00:00 123 08/08/20 21:20 133/79 08/08/20 21:00 Room Air 08/08/20 20:00 115 08/08/20 20:00 98.6 118 19 133/79 (97) 100 08/08/20 16:00 80 08/08/20 16:00 96.8 81 19 132/78 (96) 97 08/08/20 13:30 130/87 Intake and Output 08/08/20 08/09/20 19:00 07:00 Intake Total 120 ml Output Total 1200 ml Balance -1080 ml Intake Oral 120 ml Output Urine Total 1200 ml # Voids 3 2 # Bowel Movements 1 Current Medications Medications (Trade) Dose Ordered Sig/Rochelle Route PRN Reason Start Time Stop Time Status Last Admin Dose Admin Acetaminophen (Tylenol) 650 mg Q6H PRN ORAL FOR FEVER 08/07/20 21:45 09/06/20 21:44 08/07/20 23:35 Acetaminophen/ Hydrocodone Bitart ([place] 10/325) 1 tab DAILY PRN ORAL For Pain 08/06/20 22:45 08/13/20 22:44 08/09/20 05:36 Amlodipine Besylate (Norvasc) 10 mg DAILY ORAL 08/07/20 09:00 09/06/20 08:59 08/08/20 09:32 Chlorhexidine Gluconate (Mamie-Hex 2%) 1 applic DAILY@2000 TOPIC 08/09/20 20:00 11/05/20 19:59 Docusate Sodium (Colace) 100 mg TID ORAL 08/07/20 13:00 09/06/20 08:59 08/08/20 09:32 Escitalopram Oxalate (Lexapro) 10 mg DAILY ORAL 08/07/20 09:00 09/06/20 08:59 08/09/20 08:28 Heparin Sodium (Porcine) (Heparin 5000 units/ml) 5,000 units EVERY 12 HOURS SUBQ 08/07/20 09:00 09/21/20 08:59 Hydralazine HCl (Apresoline) 75 mg EVERY 8 HOURS ORAL 08/07/20 06:00 11/05/20 05:59 08/09/20 05:37 Hydroxyzine HCl (Atarax) 25 mg Q8HR ORAL 08/07/20 14:00 09/05/20 22:44 08/09/20 05:36 Levothyroxine Sodium (Synthroid) 75 mcg BEFORE BREAKFAST ORAL 08/07/20 06:30 09/06/20 06:29 08/09/20 05:36 Liothyronine Sodium (CytomeL) 5 mcg DAILY ORAL 08/09/20 09:00 09/08/20 08:59 08/09/20 08:28 Lorazepam (Ativan) 1 mg TIDPRN PRN ORAL anxiety 08/07/20 12:58 08/14/20 12:57 Morphine Sulfate (Morphine Sulfate) 1 mg Q4H PRN IVP Severe Pain (Pain Scale 7-10) 08/06/20 22:45 08/13/20 22:44 08/09/20 08:24 Ondansetron HCl (Zofran) 4 mg Q6H PRN IVP Nausea & Vomiting 08/06/20 22:45 09/05/20 22:44 Pantoprazole (Protonix) 40 mg BID ORAL 08/07/20 09:00 09/06/20 08:59 08/09/20 08:27 Piperacillin Sod/ Tazobactam Sod 2.25 gm/Dextrose 55 ml @ 110 mls/hr Q8HR IV 08/07/20 22:00 08/12/20 21:59 08/09/20 06:34 Sevelamer Carbonate (Renvela) 2,400 mg THREE TIMES A DAY ORAL 08/07/20 13:00 11/05/20 12:59 08/09/20 08:28 Trazodone HCl (Desyrel) 50 mg BID ORAL 08/06/20 23:00 09/05/20 22:59 08/08/20 17:57 Vancomycin HCl (Vanco pharmacy to dose) 1 ea DAILY PRN MISC Per rx protocol 08/07/20 21:45 09/06/20 21:44 Vancomycin HCl 750 mg/Sodium Chloride 275 ml @ 183.333 mls/hr ONCE ONCE IVPB 08/09/20 18:00 08/09/20 19:29 Laboratory Tests 08/09/20 09:15: White Blood Count 3.7L, Red Blood Count 3.59L, Hemoglobin 10.4L, Hematocrit 33.6L, Mean Corpuscular Volume 93, Mean Corpuscular Hemoglobin 29.1, Mean Corpuscular Hemoglobin Concent 31.1L, Red Cell Distribution Width 18.7H, Platelet Count 175, Mean Platelet Volume 6.1L, Neutrophils (%) (Auto) 59.1, Lymphocytes (%) (Auto) 23.4, Monocytes (%) (Auto) 12.5H, Eosinophils (%) (Auto) 3.2H, Basophils (%) (Auto) 1.9, Sodium Level 139, Potassium Level 4.2, Chloride Level 101, Carbon Dioxide Level 25, Anion Gap 13, Blood Urea Nitrogen 53H, Creatinine 10.5H, Estimat Glomerular Filtration Rate 4.4, Glucose Level 114H, Calcium Level 7.2L, Total Bilirubin 0.4, Aspartate Amino Transf (AST/SGOT) 31, Alanine Aminotransferase (ALT/SGPT) 6L, Alkaline Phosphatase 62, Total Protein 8.6H, Albumin 2.7L, Globulin 5.9, Albumin/Globulin Ratio 0.5L Height (Feet): 5 Height (Inches): 6.00 Weight (Pounds): 150 General Appearance: no apparent distress Cardiovascular: tachycardia Respiratory/Chest: decreased breath sounds Abdomen: soft Jack Pryor MD Aug 09, 2020 12:08
--- NOTE | 2020-08-09 12:37 | Surgery Progress Note ---
Surgery Progress Note Subjective Additional Comments Patient seen and examined bedside. No acute events. Resting comfortably. Labs noted. Exam stable. No complaints at this time. Imaging reviewed micro revi ewed afebrile hemodynamic stable Objective Last 24 Hour Vital Signs Date Time Temp Pulse Resp B/P (MAP) Pulse Ox O2 Delivery O2 Flow Rate FiO2 08/09/20 09:00 Room Air 08/09/20 09:00 92 127/71 08/09/20 08:00 97.7 96 20 127/71 (89) 100 08/09/20 08:00 92 08/09/20 05:37 150/75 08/09/20 04:00 77 08/09/20 04:00 98.0 100 19 150/75 (100) 98 08/09/20 00:00 98.3 110 19 138/76 (96) 99 08/09/20 00:00 123 08/08/20 21:20 133/79 08/08/20 21:00 Room Air 08/08/20 20:00 115 08/08/20 20:00 98.6 118 19 133/79 (97) 100 08/08/20 16:00 80 08/08/20 16:00 96.8 81 19 132/78 (96) 97 08/08/20 13:30 130/87 I&O Intake and Output 08/08/20 08/09/20 19:00 07:00 Intake Total 120 ml Output Total 1200 ml Balance -1080 ml Intake Oral 120 ml Output Urine Total 1200 ml # Voids 3 2 # Bowel Movements 1 Cardiovascular: RSR Respiratory: clear Abdomen: soft, non-tender, present bowel sounds, non-distended Extremities: no edema, no tenderness, no cyanosis Laboratory Tests Test 08/09/20 09:15 White Blood Count 3.7 K/UL (4.8-10.8) L Red Blood Count 3.59 M/UL (4.20-5.40) L Hemoglobin 10.4 G/DL (12.0-16.0) L Hematocrit 33.6 % (37.0-47.0) L Mean Corpuscular Volume 93 FL (80-99) Mean Corpuscular Hemoglobin 29.1 PG (27.0-31.0) Mean Corpuscular Hemoglobin Concent 31.1 G/DL (32.0-36.0) L Red Cell Distribution Width 18.7 % (11.6-14.8) H Platelet Count 175 K/UL (150-450) Mean Platelet Volume 6.1 FL (6.5-10.1) L Neutrophils (%) (Auto) 59.1 % (45.0-75.0) Lymphocytes (%) (Auto) 23.4 % (20.0-45.0) Monocytes (%) (Auto) 12.5 % (1.0-10.0) H Eosinophils (%) (Auto) 3.2 % (0.0-3.0) H Basophils (%) (Auto) 1.9 % (0.0-2.0) Sodium Level 139 MMOL/L (136-145) Potassium Level 4.2 MMOL/L (3.5-5.1) Chloride Level 101 MMOL/L (98-107) Carbon Dioxide Level 25 MMOL/L (21-32) Anion Gap 13 mmol/L (5-15) Blood Urea Nitrogen 53 mg/dL (7-18) H Creatinine 10.5 MG/DL (0.55-1.30) H Estimat Glomerular Filtration Rate 4.4 mL/min (>60) Glucose Level 114 MG/DL (74-106) H Calcium Level 7.2 MG/DL (8.5-10.1) L Total Bilirubin 0.4 MG/DL (0.2-1.0) Aspartate Amino Transf (AST/SGOT) 31 U/L (15-37) Alanine Aminotransferase (ALT/SGPT) 6 U/L (12-78) L Alkaline Phosphatase 62 U/L (46-116) Total Protein 8.6 G/DL (6.4-8.2) H Albumin 2.7 G/DL (3.4-5.0) L Globulin 5.9 g/dL Albumin/Globulin Ratio 0.5 (1.0-2.7) L Plan Problems: (1) Hyperkalemia (2) CHF (congestive heart failure), NYHA class II (3) ESRD (end stage renal disease) on dialysis (4) Sick sinus syndrome (5) Fluid overload (6) Substance abuse (7) Cocaine abuse (8) Anxiety (9) Cirrhosis (10) Pruritus (11) Cholecystitis, acute (12) Weakness (13) Hypertension (14) HIV disease (15) Cyst of skin (16) Epileptic seizure, generalized (17) Open wound of chest wall (18) Adnexal mass (19) HCV antibody positive (20) Hypertensive urgency (21) Intractable abdominal pain (22) Recurrent vulvovaginal herpes simplex (23) Abdominal pain Assessment & Plan: This is a 70-year-old female well-known to me with recent episode of acute cholecystitis treated conservative management given her significant history who presents with abdominal pain generalized to all 4 out of 10 associated nausea currently no emesis passing flatus having diarrhea. Afebrile hemodynamically stable labs noted missed dialysis. Abdominal exam with mild discomfort no peritonitis. LFTs okay. Ultrasound reviewed. Unlikely acute cholecystitis can. Abdominal pain potentially diarrhea infectious etiology enteritis. Okay for diet. Dialysis as per nephrology. Electrolyte imbalance will improve. Will monitor and follow with serial exams. Hold on further radiology for now. May consider CT if not improving. Thank you for letting participate patient's care will follow with recommendations kub noted start oral diet Liver: Subjective hepatomegaly. No intrahepatic bile duct dilation. Gallbladder: The gallbladder is distended measuring up to 4 cm in short axis. There are shadowing gallstones as well as gallbladder sludge. Negative for gallbladder wall thickening or pericholecystic fluid. Common bile duct: Negative for biliary ductal dilatation. No stones. Pancreas: Unremarkable as visualized. Kidneys: Limited imaging of both kidneys demonstrates bilateral renal atrophy and increased cortical echogenicity suggesting chronic medical renal disease. No stones. No hydronephrosis. Spleen: Splenomegaly with long axis of the spleen measuring up to 16 cm. Aorta: Unremarkable. No aneurysm. Inferior vena cava: Unremarkable. IMPRESSION: Hepatosplenomegaly and kidneys with appearance of chronic medical renal disease. Cholelithiasis without biliary ductal dilatation. Deon Crowe Aug 09, 2020 12:37
[2020-08-09 16:00] VITALS: BP 130/68
--- NOTE | 2020-08-09 17:00 | Consultation ---
DATE OF CONSULTATION: 08/09/2020 INFECTIOUS DISEASE CONSULTATION REFERRING PHYSICIAN: Michael Peralta M.D. REASON FOR CONSULTATION: Fever. HISTORY OF PRESENTING ILLNESS: This is a 70-year-old lady with history of HIV, hypertension, renal failure, conduction system disease, gallstone, who comes in with fever along with abdominal pain. An abdominal ultrasound showed distended gallbladder with stones and sludge. She was previously found to have cholecystitis. An infectious disease consultation will be obtained for antibiotics. PAST MEDICAL HISTORY: 1. History of fibromyalgia. 2. HIV. 3. Hypertension. 4. Renal failure, on dialysis. 5. Conduction system disease. 6. History of gallstones and cholecystitis. SOCIAL HISTORY: She does not smoke or drink. She has a history of opioid dependence. FAMILY HISTORY: Noncontributory. REVIEW OF SYSTEMS: CONSTITUTIONAL: Just fever and chills. RESPIRATORY: No cough. No shortness of breath or chest pain. CARDIAC: No chest pain. No palpitation. No dizziness. No syncope. GASTROINTESTINAL: No nausea. No vomiting. She does have abdominal pain. No diarrhea. MEDICATIONS: As an inpatient, she is on chlorhexidine, IV vancomycin, loperamide, liothyronine, Zosyn Tylenol, hydroxyzine, Renvela, docusate, lorazepam, subcu heparin, Protonix, Lexapro, amlodipine, hydralazine, trazodone, Zofran, morphine, [place]. ALLERGIES: 1. Aspirin. 2. Iodine. 3. NSAID. PHYSICAL EXAMINATION: VITAL SIGNS: Temperature 97.7, T-max of 101, pulse of 82, respiratory rate 20, blood pressure 145/75, O2 saturation of 115 on room air. HEENT: Pupils equally reactive to light and accommodation. Mouth appears clean without thrush. NECK: Supple. No adenopathy. No JVD. CARDIOVASCULAR: Regular rate and rhythm. No murmur. LUNGS: Clear to auscultation bilaterally. No crackles. No wheezes. ABDOMEN: Soft, nontender. No organomegaly. EXTREMITIES: No cyanosis, no clubbing, no edema. Left subclavian catheter noted. LABORATORY DATA: White count 3.7, hemoglobin 10.4, hematocrit 33.6, MCV 93, platelet count of 175 with neutrophils of 59%. Sodium 139, potassium 4.2, chloride 101, bicarb 25, BUN 53, creatinine 10.5, glucose 114, calcium 7.2. Total bilirubin 0.4, AST 31, ALT 66, alkaline phosphatase 62, total protein 8.6, albumin 2.7. Hepatitis B surface antigen is pending. COVID-19 test is negative. Abdominal ultrasound showing hepatosplenomegaly with kidney showing chronic medical renal disease, cholelithiasis without biliary ductal dilatation. Chest x-ray is showing no consolidation, pneumothorax, or pleural fluid. Abdominal x-ray is showing no acute process. ASSESSMENT: This is a 70-year-old lady with history of HIV, hypertension, and renal failure, on dialysis, who comes in with abdominal pain. 1. Fevers, could be secondary to cholecystitis. 2. We would like to rule out line sepsis as a possibility. 3. HIV. 4. Renal failure, on dialysis. 5. Chronic pain syndrome. PLAN: 1. Continue IV vancomycin and Zosyn. 2. We will follow up cultures. 3. The patient has been seen by Surgery. I would like to thank Dr. Peralta for this consultation. Elvis Garibay M.D. DR: ANIKET JOB#: [id number] CC: Michael Peralta M.D.
[2020-08-09] MEDS ORDERED: Vancomycin 750mg/NS 275ml IVPB ONE ×2 (18:00)
--- NOTE | 2020-08-09 19:30 | Cardiology Report ---
APPROVED REPORT EKG Measurement Heart [id number] ID [id number] <Conclusion> Sinus rhythm with 1st degree AV block Right axis deviation Possible Anterior infarct, age undetermined Abnormal ECG
--- NOTE | 2020-08-09 19:52 | NUR ---
NURSE HAND-OFF REPORT: Important Events on Shift: HD done, 2L out. Patient Status: alert Diet: renal Pending Orders: Pending Results/Labs: Pending MD notification: Latest Vital Signs: Temperature 97.6 , Pulse 85 , B/P 130 /68 , Respiratory Rate 20 , O2 SAT 98 , Room Air, O2 Flow Rate . Vital Sign Comment: EKG Rhythm: Sinus Rhythm Rhythm change?: N MD Notified?: - MD Response: Latest Espinoza Fall Score: 60 Fall Risk: High Risk Safety Measures: Call light Within Reach, Bed Alarm Zone 1, Side Rails Side Rails x2, Bed position Low and Locked. Fall Precautions: Yellow Gown Door Sign Patient Fall Education Report given to Alejandrina SALAZAR.
[2020-08-09] MEDS: Dyna-Hex 2% Top Sol 2oz TOPIC SCH (21:31)
[2020-08-10] VITALS: BP 140/73
--- NOTE | 2020-08-10 01:23 | Cardiology Progress Note ---
Subjective DATE OF SERVICE: Aug 09, 2020 C/O abd pain. S/P HD/UF No new fever spikes. Objective Last 24 Hour Vital Signs Date Time Temp Pulse Resp B/P (MAP) Pulse Ox O2 Delivery O2 Flow Rate FiO2 08/10/20 00:00 99.3 83 20 140/73 (95) 96 08/09/20 21:32 136/71 08/09/20 21:00 Room Air 08/09/20 20:00 98.8 77 20 98 08/09/20 20:00 88 08/09/20 16:00 97.6 74 20 130/68 (88) 98 08/09/20 16:00 85 08/09/20 14:28 145/75 08/09/20 12:00 97.7 82 20 145/75 (98) 100 08/09/20 12:00 82 08/09/20 09:00 Room Air 08/09/20 09:00 92 127/71 08/09/20 08:00 97.7 96 20 127/71 (89) 100 08/09/20 08:00 92 08/09/20 05:37 150/75 08/09/20 04:00 77 08/09/20 04:00 98.0 100 19 150/75 (100) 98 ROS: unchanged RHYTHM: NSR, PACs LUNGS: lungs clear bilaterally CARDIAC: normal rate, regular rhythm, normal S1 and S2, gallop/S4 ABDOMEN: normal bowel sounds, soft, tender - Upper quads R>>L EXTREMITIES: non-tender, trace edema Laboratory Tests Test 08/09/20 09:15 White Blood Count 3.7 K/UL (4.8-10.8) L Red Blood Count 3.59 M/UL (4.20-5.40) L Hemoglobin 10.4 G/DL (12.0-16.0) L Hematocrit 33.6 % (37.0-47.0) L Mean Corpuscular Volume 93 FL (80-99) Mean Corpuscular Hemoglobin 29.1 PG (27.0-31.0) Mean Corpuscular Hemoglobin Concent 31.1 G/DL (32.0-36.0) L Red Cell Distribution Width 18.7 % (11.6-14.8) H Platelet Count 175 K/UL (150-450) Mean Platelet Volume 6.1 FL (6.5-10.1) L Neutrophils (%) (Auto) 59.1 % (45.0-75.0) Lymphocytes (%) (Auto) 23.4 % (20.0-45.0) Monocytes (%) (Auto) 12.5 % (1.0-10.0) H Eosinophils (%) (Auto) 3.2 % (0.0-3.0) H Basophils (%) (Auto) 1.9 % (0.0-2.0) Sodium Level 139 MMOL/L (136-145) Potassium Level 4.2 MMOL/L (3.5-5.1) Chloride Level 101 MMOL/L (98-107) Carbon Dioxide Level 25 MMOL/L (21-32) Anion Gap 13 mmol/L (5-15) Blood Urea Nitrogen 53 mg/dL (7-18) H Creatinine 10.5 MG/DL (0.55-1.30) H Estimat Glomerular Filtration Rate 4.4 mL/min (>60) Glucose Level 114 MG/DL (74-106) H Calcium Level 7.2 MG/DL (8.5-10.1) L Total Bilirubin 0.4 MG/DL (0.2-1.0) Aspartate Amino Transf (AST/SGOT) 31 U/L (15-37) Alanine Aminotransferase (ALT/SGPT) 6 U/L (12-78) L Alkaline Phosphatase 62 U/L (46-116) Total Protein 8.6 G/DL (6.4-8.2) H Albumin 2.7 G/DL (3.4-5.0) L Globulin 5.9 g/dL Albumin/Globulin Ratio 0.5 (1.0-2.7) L Microbiology Date/Time Source Procedure Growth Status 08/07/20 22:30 Nasopharynx SARS-CoV-2 RdRp Gene Assay - Final Complete Assessment/Plan Assessment/Plan Missed dialysis Low likelihood for acute/subacute cholecystitis HyperKalemia Possible infectious colitis ESRD hypertension/HHD Conduction system dis Paroxy SVT Ac/chronic diastolic CHF HIV+ Hep C + HD/UF Abx Follow-up abdominal imaging if no progress on current rx Titrate antiHTN regimen Avoid all drugs with negative chronotropic potential; patient has refused pacemaker Nam Barnett MD Aug 10, 2020 01:23
[2020-08-10] MEDS: Morphine Sulfate 2mg/ml Inj(IV/IM USE ONLY) IVP PRN ×3 (03:19→18:07)
[2020-08-10 04:00] VITALS: BP 133/73
[2020-08-10] MEDS: Levothyroxine 25mcg tab ORAL SCH (05:59)
[2020-08-10] MEDS: Zosyn 2.25 gm in D5W 55ml IV SCH ×3 (06:02→21:47)
[2020-08-10] MEDS: HydrALAZINE 25mg tab ORAL SCH ×3 (06:03→21:45)
[2020-08-10] MEDS: HydrOXYzine tab 25mg tab ORAL SCH ×3 (06:03→21:45)
[2020-08-10 06:42] LABS: ALBUMIN 2.6 G/DL (3.4-5.0); ALBUMIN/GLOBULIN RATIO 0.4 (1.0-2.7); BILIRUBIN,TOTAL 0.4 MG/DL (0.2-1.0); CALCIUM 7.4 MG/DL (8.5-10.1); CREATININE 7.2 MG/DL (0.55-1.30); PHOSPHORUS 5.2 MG/DL (2.5-4.9); POTASSIUM 3.7 MMOL/L (3.5-5.1)
[2020-08-10 08:00] VITALS: BP 141/96
--- NOTE | 2020-08-10 08:01 | NUR ---
NURSE HAND-OFF REPORT: Important Events on Shift:[NA. Dr. Peralta aware of no IV site. ] Patient Status: [Full code] Diet: [Renal] Pending Orders: [] Pending Results/Labs:[] Pending MD notification:[] Latest Vital Signs: Temperature 97.8 , Pulse 124 , B/P 140 /73 , Respiratory Rate 20 , O2 SAT 96 , Room Air, O2 Flow Rate . Vital Sign Comment: [Within range] EKG Rhythm: Sinus Rhythm Rhythm change?: N MD Notified?: - MD Response: Latest Espinoza Fall Score: 60 Fall Risk: High Risk Safety Measures: Call light Within Reach, Bed Alarm Zone 1, Side Rails Side Rails x2, Bed position Low and Locked. Fall Precautions: Yellow Gown Door Sign Patient Fall Education Report given to [MARTIN Henderson].
--- NOTE | 2020-08-10 08:27 | NUR ---
RD ASSESSMENT & RECOMMENDATIONS SEE CARE ACTIVITY FOR COMPLETE ASSESSMENT DAILY ESTIMATED NEEDS: Needs based on ESRD on HD, wound 67kg abw 25-35 kcals/kg [id number] total kcals 1.25-1.8 g protein/kg 84-121 g total protein fluid per MD, on HD NUTRITION DIAGNOSIS: Increased kcal and pro needs r/t renal dysfunction as evidenced by pt w/ esrd on HD. CURRENT DIET: Now Renal/ soft easy chew PO DIET RECOMMENDATIONS: RENAL/ LOW FAT DIET ADDITIONAL RECOMMENDATIONS: 1) Daily calibrated bed scale 2) Advance diet to CLD as per MD Add Ensure Clear TID w/ clear diet meals Advance as tolerated to renal / low fat diet 4) Rec regular accuchecks- pt has had 2 hypoglycemic episodes (51 54) Now improved w/ diet 5) WC eval-> Nephrovite qdaily, ERICA BID .
[2020-08-10] MEDS: TraZODone 50mg tab ORAL SCH ×2 (09:00→18:00)
[2020-08-10] MEDS: Liothyronine 5mcg tab ORAL SCH (09:00)
[2020-08-10] MEDS: Docusate 100mg cap ORAL SCH ×3 (09:59→18:00)
[2020-08-10] MEDS: LORazepam 1mg tab ORAL PRN ×3 (10:01→22:59)
[2020-08-10] MEDS: Heparin 5000 units/ml inj SUBQ SCH ×2 (10:02→21:46)
--- NOTE | 2020-08-10 10:53 | Infectious Diseases Prog Note ---
Assessment/Plan Assessment/Plan A; 1. Fever resolved 2. We would like to rule out line sepsis as a possibility. 3. HIV. 4. Renal failure, on dialysis. 5. Chronic pain syndrome. 6. Cholelithiasis, history of cholecystitis 7. Hepatosplenomegaly PLAN: 1. Continue IV vancomycin and Zosyn. 2. Will f/u blood culture Subjective ROS Limited/Unobtainable: No Constitutional: Reports: no symptoms HEENT: Reports: other - soar throat Respiratory: Reports: no symptoms Gastrointestinal/Abdominal: Reports: no symptoms Genitourinary: Reports: no symptoms Allergies: Coded Allergies: ASPIRIN (Unverified Allergy, Unknown, 01/16/20) IODINE (Verified Allergy, Unknown, 01/07/20) Uncoded Allergies: CONTRAST DYE (Allergy, Unknown, 01/07/20) NSAID (Allergy, Unknown, 04/24/20) Objective Last 24 Hour Vital Signs Date Time Temp Pulse Resp B/P (MAP) Pulse Ox O2 Delivery O2 Flow Rate FiO2 08/10/20 10:31 87 18 139/80 96 08/10/20 10:01 85 18 141/96 95 08/10/20 10:00 85 141/96 08/10/20 06:03 140/73 08/10/20 04:00 97.8 83 20 133/73 (93) 96 08/10/20 04:00 124 08/10/20 00:00 99.3 83 20 140/73 (95) 96 08/10/20 00:00 122 08/09/20 21:32 136/71 08/09/20 21:00 Room Air 08/09/20 20:00 98.8 77 20 98 08/09/20 20:00 88 08/09/20 16:00 97.6 74 20 130/68 (88) 98 08/09/20 16:00 85 08/09/20 14:28 145/75 08/09/20 12:00 97.7 82 20 145/75 (98) 100 08/09/20 12:00 82 Height (Feet): 5 Height (Inches): 6.00 Weight (Pounds): 150 General Appearance: no acute distress HEENT: mucous membranes moist Respiratory/Chest: lungs clear Cardiovascular: normal rate, other - left permacath Abdomen: soft, non tender Extremities: no edema Neurologic/Psychiatric: alert, responsive Microbiology Date/Time Source Procedure Growth Status 08/07/20 22:30 Nasopharynx SARS-CoV-2 RdRp Gene Assay - Final Complete Laboratory Tests Test 08/10/20 05:16 Sodium Level 140 MMOL/L (136-145) Potassium Level 3.7 MMOL/L (3.5-5.1) Chloride Level 104 MMOL/L (98-107) Carbon Dioxide Level 28 MMOL/L (21-32) Anion Gap 8 mmol/L (5-15) Blood Urea Nitrogen 30 mg/dL (7-18) H Creatinine 7.2 MG/DL (0.55-1.30) H Estimat Glomerular Filtration Rate 6.8 mL/min (>60) Glucose Level 100 MG/DL (74-106) Calcium Level 7.4 MG/DL (8.5-10.1) L Phosphorus Level 5.2 MG/DL (2.5-4.9) H Magnesium Level 2.1 MG/DL (1.8-2.4) Total Bilirubin 0.4 MG/DL (0.2-1.0) Aspartate Amino Transf (AST/SGOT) 31 U/L (15-37) Alanine Aminotransferase (ALT/SGPT) 11 U/L (12-78) L Alkaline Phosphatase 65 U/L (46-116) Total Protein 8.7 G/DL (6.4-8.2) H Albumin 2.6 G/DL (3.4-5.0) L Globulin 6.1 g/dL Albumin/Globulin Ratio 0.4 (1.0-2.7) L Current Medications Medications (Trade) Dose Ordered Sig/Rochelle Route PRN Reason Start Time Stop Time Status Last Admin Dose Admin Acetaminophen (Tylenol) 650 mg Q6H PRN ORAL FOR FEVER 08/07/20 21:45 09/06/20 21:44 08/07/20 23:35 Acetaminophen/ Hydrocodone Bitart ([place] 10/325) 1 tab DAILY PRN ORAL For Pain 08/06/20 22:45 08/13/20 22:44 08/09/20 05:36 Amlodipine Besylate (Norvasc) 10 mg DAILY ORAL 08/07/20 09:00 09/06/20 08:59 08/10/20 10:00 Chlorhexidine Gluconate (Mamie-Hex 2%) 1 applic DAILY@1999 TOPIC 08/09/20 20:00 11/05/20 19:59 08/09/20 21:31 Docusate Sodium (Colace) 100 mg TID ORAL 08/07/20 13:00 09/06/20 08:59 08/10/20 09:59 Escitalopram Oxalate (Lexapro) 10 mg DAILY ORAL 08/07/20 09:00 09/06/20 08:59 08/10/20 09:59 Heparin Sodium (Porcine) (Heparin 5000 units/ml) 5,000 units EVERY 12 HOURS SUBQ 08/07/20 09:00 09/21/20 08:59 08/10/20 10:02 Hydralazine HCl (Apresoline) 75 mg EVERY 8 HOURS ORAL 08/07/20 06:00 11/05/20 05:59 08/10/20 06:03 Hydroxyzine HCl (Atarax) 25 mg Q8HR ORAL 08/07/20 14:00 09/05/20 22:44 08/10/20 06:03 Levothyroxine Sodium (Synthroid) 75 mcg BEFORE BREAKFAST ORAL 08/07/20 06:30 09/06/20 06:29 08/10/20 05:59 Liothyronine Sodium (CytomeL) 5 mcg DAILY ORAL 08/09/20 09:00 09/08/20 08:59 08/09/20 08:28 Loperamide HCl (Imodium) 2 mg Q4H PRN ORAL Diarrhea 08/09/20 14:00 09/08/20 13:59 Lorazepam (Ativan) 1 mg TIDPRN PRN ORAL anxiety 08/07/20 12:58 08/14/20 12:57 08/10/20 10:01 Morphine Sulfate (Morphine Sulfate) 1 mg Q4H PRN IVP Severe Pain (Pain Scale 7-10) 08/06/20 22:45 08/13/20 22:44 08/10/20 03:19 Ondansetron HCl (Zofran) 4 mg Q6H PRN IVP Nausea & Vomiting 08/06/20 22:45 09/05/20 22:44 Pantoprazole (Protonix) 40 mg BID ORAL 08/07/20 09:00 09/06/20 08:59 08/10/20 09:59 Piperacillin Sod/ Tazobactam Sod 2.25 gm/Dextrose 55 ml @ 110 mls/hr Q8HR IV 08/07/20 22:00 08/12/20 21:59 08/10/20 06:02 Sevelamer Carbonate (Renvela) 2,400 mg THREE TIMES A DAY ORAL 08/07/20 13:00 11/05/20 12:59 08/10/20 09:59 Trazodone HCl (Desyrel) 50 mg BID ORAL 08/06/20 23:00 09/05/20 22:59 08/09/20 18:08 Vancomycin HCl ([facility] pharmacy to dose) 1 ea DAILY PRN MISC Per rx protocol 08/07/20 21:45 09/06/20 21:44 Armando Brown MD Aug 10, 2020 10:53
--- NOTE | 2020-08-10 11:54 | Surgery Progress Note ---
Surgery Progress Note Subjective Symptoms: improved, tolerating diet, passing flatus, BM, pain decreased Objective Last 24 Hour Vital Signs Date Time Temp Pulse Resp B/P (MAP) Pulse Ox O2 Delivery O2 Flow Rate FiO2 08/10/20 10:31 87 18 139/80 96 08/10/20 10:01 85 18 141/96 95 08/10/20 10:00 85 141/96 08/10/20 06:03 140/73 08/10/20 04:00 97.8 83 20 133/73 (93) 96 08/10/20 04:00 124 08/10/20 00:00 99.3 83 20 140/73 (95) 96 08/10/20 00:00 122 08/09/20 21:32 136/71 08/09/20 21:00 Room Air 08/09/20 20:00 98.8 77 20 98 08/09/20 20:00 88 08/09/20 16:00 97.6 74 20 130/68 (88) 98 08/09/20 16:00 85 08/09/20 14:28 145/75 08/09/20 12:00 97.7 82 20 145/75 (98) 100 08/09/20 12:00 82 I&O Intake and Output 08/09/20 08/10/20 19:00 07:00 Intake Total 400 ml 1 ml Output Total 2000 ml Balance -1600 ml 1 ml Intake Oral 400 ml 1 ml Hemodialysis UF 2000 ml # Bowel Movements 1 Cardiovascular: RSR Respiratory: clear Abdomen: soft, non-tender, present bowel sounds, non-distended Extremities: no edema, no tenderness, no cyanosis Laboratory Tests Test 08/10/20 05:16 Sodium Level 140 MMOL/L (136-145) Potassium Level 3.7 MMOL/L (3.5-5.1) Chloride Level 104 MMOL/L (98-107) Carbon Dioxide Level 28 MMOL/L (21-32) Anion Gap 8 mmol/L (5-15) Blood Urea Nitrogen 30 mg/dL (7-18) H Creatinine 7.2 MG/DL (0.55-1.30) H Estimat Glomerular Filtration Rate 6.8 mL/min (>60) Glucose Level 100 MG/DL (74-106) Calcium Level 7.4 MG/DL (8.5-10.1) L Phosphorus Level 5.2 MG/DL (2.5-4.9) H Magnesium Level 2.1 MG/DL (1.8-2.4) Total Bilirubin 0.4 MG/DL (0.2-1.0) Aspartate Amino Transf (AST/SGOT) 31 U/L (15-37) Alanine Aminotransferase (ALT/SGPT) 11 U/L (12-78) L Alkaline Phosphatase 65 U/L (46-116) Total Protein 8.7 G/DL (6.4-8.2) H Albumin 2.6 G/DL (3.4-5.0) L Globulin 6.1 g/dL Albumin/Globulin Ratio 0.4 (1.0-2.7) L Plan Problems: (1) Hyperkalemia (2) CHF (congestive heart failure), NYHA class II (3) ESRD (end stage renal disease) on dialysis (4) Sick sinus syndrome (5) Fluid overload (6) Substance abuse (7) Cocaine abuse (8) Anxiety (9) Cirrhosis (10) Pruritus (11) Cholecystitis, acute (12) Weakness (13) Hypertension (14) HIV disease (15) Cyst of skin (16) Epileptic seizure, generalized (17) Open wound of chest wall (18) Adnexal mass (19) HCV antibody positive (20) Hypertensive urgency (21) Intractable abdominal pain (22) Recurrent vulvovaginal herpes simplex (23) Abdominal pain Assessment & Plan: This is a 70-year-old female well-known to me with recent episode of acute cholecystitis treated conservative management given her significant history who presents with abdominal pain generalized to all 4 out of 10 associated nausea currently no emesis passing flatus having diarrhea. Afebrile hemodynamically stable labs noted missed dialysis. Abdominal exam with mild discomfort no peritonitis. LFTs okay. Ultrasound reviewed. Unlikely acute cholecystitis can. Abdominal pain potentially diarrhea infectious etiology enteritis. Okay for diet. Dialysis as per nephrology. Electrolyte imbalance will improve. Will monitor and follow with serial exams. Hold on further radiology for now. May consider CT if not improving. Thank you for letting participate patient's care will follow with recommendations kub noted start oral diet diet as tolerated bowel function resumed improving Liver: Subjective hepatomegaly. No intrahepatic bile duct dilation. Gallbladder: The gallbladder is distended measuring up to 4 cm in short axis. There are shadowing gallstones as well as gallbladder sludge. Negative for gallbladder wall thickening or pericholecystic fluid. Common bile duct: Negative for biliary ductal dilatation. No stones. Pancreas: Unremarkable as visualized. Kidneys: Limited imaging of both kidneys demonstrates bilateral renal atrophy and increased cortical echogenicity suggesting chronic medical renal disease. No stones. No hydronephrosis. Spleen: Splenomegaly with long axis of the spleen measuring up to 16 cm. Aorta: Unremarkable. No aneurysm. Inferior vena cava: Unremarkable. IMPRESSION: Hepatosplenomegaly and kidneys with appearance of chronic medical renal disease. Cholelithiasis without biliary ductal dilatation. Deon Crowe Aug 10, 2020 11:54
[2020-08-10 12:00] VITALS: BP 146/91
--- NOTE | 2020-08-10 12:48 | Nephrology Progress Note ---
Assessment/Plan Problem List: (1) Hyperkalemia (2) ESRD (end stage renal disease) on dialysis (3) Substance abuse (4) Hypertension (5) HCV antibody positive (6) Intractable abdominal pain (7) HIV disease Assessment End-stage renal disease on hemodialysis Presents with hyperkalemia History of substance abuse, cocaine Fluid overload HIV disease Hepatitis C virus antibody positive Hypertensive kidney disease Noncompliance with diet and dialysis Anemia of chronic kidney disease Plan August 10: Dialyzed yesterday. Blood pressure is stable. Medication list re viewed. Will order dialysis tomorrow. August 09: Patient about to be started on dialysis. Blood pressure is stable. Continue current management. August 08: Labs reviewed. High potassium normalized. Patient was dialyzed yesterday. Due for dialysis tomorrow. Will start Cytomel 5 mg for low T3 Previously: Patient currently on dialysis against low potassium bath Ultrafiltration Keep the blood pressure in check Continue per PMD Per orders Subjective ROS Limited/Unobtainable: No Constitutional: Reports: malaise, weakness Objective Objective Last 24 Hour Vital Signs Date Time Temp Pulse Resp B/P (MAP) Pulse Ox O2 Delivery O2 Flow Rate FiO2 08/10/20 10:31 87 18 139/80 96 08/10/20 10:01 85 18 141/96 95 08/10/20 10:00 85 141/96 08/10/20 06:03 140/73 08/10/20 04:00 97.8 83 20 133/73 (93) 96 08/10/20 04:00 124 08/10/20 00:00 99.3 83 20 140/73 (95) 96 08/10/20 00:00 122 08/09/20 21:32 136/71 08/09/20 21:00 Room Air 08/09/20 20:00 98.8 77 20 98 08/09/20 20:00 88 08/09/20 16:00 97.6 74 20 130/68 (88) 98 08/09/20 16:00 85 08/09/20 14:28 145/75 Intake and Output 08/09/20 08/10/20 19:00 07:00 Intake Total 400 ml 1 ml Output Total 2000 ml Balance -1600 ml 1 ml Intake Oral 400 ml 1 ml Hemodialysis UF 2000 ml # Bowel Movements 1 Laboratory Tests 08/10/20 05:16: Sodium Level 140, Potassium Level 3.7, Chloride Level 104, Carbon Dioxide Level 28, Anion Gap 8, Blood Urea Nitrogen 30H, Creatinine 7.2H, Estimat Glomerular Filtration Rate 6.8, Glucose Level 100, Calcium Level 7.4L, Phosphorus Level 5.2H, Magnesium Level 2.1, Total Bilirubin 0.4, Aspartate Amino Transf (AST/SGOT) 31, Alanine Aminotransferase (ALT/SGPT) 11L, Alkaline Phosphatase 65, Total Protein 8.7H, Albumin 2.6L, Globulin 6.1, Albumin/Globulin Ratio 0.4L Height (Feet): 5 Height (Inches): 6.00 Weight (Pounds): 150 General Appearance: no apparent distress Cardiovascular: normal rate Respiratory/Chest: decreased breath sounds Abdomen: distended Objective No change Jack Pryor MD Aug 10, 2020 12:48
--- NOTE | 2020-08-10 13:21 | General Progress Note ---
Subjective ROS Limited/Unobtainable: No Constitutional: Reports: malaise, weakness HEENT: Reports: no symptoms Cardiovascular: Reports: no symptoms Respiratory: Reports: no symptoms Gastrointestinal/Abdominal: Reports: abdominal pain Genitourinary: Reports: no symptoms Neurologic/Psychiatric: Reports: anxiety, pre-existing deficit Endocrine: Reports: no symptoms Allergies: Coded Allergies: ASPIRIN (Unverified Allergy, Unknown, 01/16/20) IODINE (Verified Allergy, Unknown, 01/07/20) Uncoded Allergies: CONTRAST DYE (Allergy, Unknown, 01/07/20) NSAID (Allergy, Unknown, 04/24/20) All Systems: reviewed and negative except above Subjective no new complaints. still with abd pain- but less. appears much more comfortable. no fevers. ID noted. On iv abx. requesting iv pain meds Objective Last 24 Hour Vital Signs Date Time Temp Pulse Resp B/P (MAP) Pulse Ox O2 Delivery O2 Flow Rate FiO2 08/10/20 12:00 99.0 126 18 146/91 (109) 97 08/10/20 10:31 87 18 139/80 96 08/10/20 10:01 85 18 141/96 95 08/10/20 10:00 85 141/96 08/10/20 09:00 Room Air 08/10/20 08:00 126 08/10/20 08:00 98.8 85 18 141/96 (111) 95 08/10/20 06:03 140/73 08/10/20 04:00 97.8 83 20 133/73 (93) 96 08/10/20 04:00 124 08/10/20 00:00 99.3 83 20 140/73 (95) 96 08/10/20 00:00 122 08/09/20 21:32 136/71 08/09/20 21:00 Room Air 08/09/20 20:00 98.8 77 20 98 08/09/20 20:00 88 08/09/20 16:00 97.6 74 20 130/68 (88) 98 08/09/20 16:00 85 08/09/20 14:28 145/75 Intake and Output 08/09/20 08/10/20 19:00 07:00 Intake Total 400 ml 1 ml Output Total 2000 ml Balance -1600 ml 1 ml Intake Oral 400 ml 1 ml Hemodialysis UF 2000 ml # Bowel Movements 1 Laboratory Tests 08/10/20 05:16: Sodium Level 140, Potassium Level 3.7, Chloride Level 104, Carbon Dioxide Level 28, Anion Gap 8, Blood Urea Nitrogen 30H, Creatinine 7.2H, Estimat Glomerular Filtration Rate 6.8, Glucose Level 100, Calcium Level 7.4L, Phosphorus Level 5.2H, Magnesium Level 2.1, Total Bilirubin 0.4, Aspartate Amino Transf (AST/SGOT) 31, Alanine Aminotransferase (ALT/SGPT) 11L, Alkaline Phosphatase 65, Total Protein 8.7H, Albumin 2.6L, Globulin 6.1, Albumin/Globulin Ratio 0.4L Height (Feet): 5 Height (Inches): 6.00 Weight (Pounds): 150 Objective General Appearance: WD/WN, alert EENT: normal ENT inspection Neck: normal alignment, supple Cardiovascular: normal peripheral pulses, normal rate, regular rhythm Respiratory/Chest: chest wall non-tender, lungs clear, normal breath sounds, no respiratory distress, no accessory muscle use Abdomen: normal bowel sounds, non tender, soft, no organomegaly, no mass Edema: no edema noted Leg (L), no edema noted Leg (R) Edema: trace edema Neurologic: go go 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 grossly normal, alert, responsive Assessment/Plan Problem List: (1) Abdominal pain ICD Codes: R10.9 - Unspecified abdominal pain SNOMED: 17761768 (2) Epileptic seizure, generalized ICD Codes: G40.309 - Generalized idiopathic epilepsy and epileptic syndromes, not intractable, without status epilepticus SNOMED: 58686937 (3) Hypertension ICD Codes: I10 - Essential (primary) hypertension SNOMED: 09344521 (4) Anxiety ICD Codes: F41.9 - Anxiety disorder, unspecified SNOMED: 13473520 (5) Cocaine abuse ICD Codes: F14.10 - Cocaine abuse, uncomplicated SNOMED: 86304190 (6) Cirrhosis ICD Codes: K74.60 - Unspecified cirrhosis of liver SNOMED: 05630711 (7) CHF (congestive heart failure), NYHA class II ICD Codes: I50.9 - Heart failure, unspecified SNOMED: 907990483, 936307586 (8) ESRD (end stage renal disease) on dialysis ICD Codes: N18.6 - End stage renal disease; Z99.2 - Dependence on renal dialysis SNOMED: 413740804 (9) Sick sinus syndrome ICD Codes: I49.5 - Sick sinus syndrome SNOMED: 97562783 Status: stable Assessment/Plan: stable cont current rx iv abx follow up cultures ID eval appreciated HD per renal pain rx as needed Michael Peralta MD Aug 10, 2020 13:21
[2020-08-10] MEDS ORDERED: NS 275ml ONE (15:17)
[2020-08-10] MEDS ORDERED: Tubing IV Secondary IV ONE (15:17)
[2020-08-10 16:00] VITALS: BP 135/79
--- NOTE | 2020-08-10 19:20 | NUR ---
NURSE NOTES: Pt in bed. Able to make needs know. Alert & oriented x3. No resp distress noted. ekg monitor in place. PermCath in place on left upper chest. IV in place &patent on left AC saline locked. Bed in low position & locked, side rails up x3. Call light with in reach. Will continue plan of care.
--- NOTE | 2020-08-10 19:35 | NUR ---
NURSE HAND-OFF REPORT: Important Events on Shift:[New IV placed] Patient Status: [Full code] Diet: [Renal] Pending Orders: [] Pending Results/Labs:[] Pending MD notification:[] Latest Vital Signs: Temperature 99.0 , Pulse 124 , B/P 140 /82 , Respiratory Rate 18 , O2 SAT 98 , Room Air, O2 Flow Rate . Vital Sign Comment: [] EKG Rhythm: Sinus Tachycardia Rhythm change?: N MD Notified?: - MD Response: Latest Espinoza Fall Score: 60 Fall Risk: High Risk Safety Measures: Call light Within Reach, Bed Alarm Zone 1, Side Rails Side Rails x2, Bed position Low and Locked. Fall Precautions: Yellow Gown Door Sign Patient Fall Education Report given to [MARTIN Zamora].
[2020-08-10 20:00] VITALS: BP 146/78
[2020-08-10] MEDS: Dyna-Hex 2% Top Sol 2oz TOPIC SCH (21:53)
--- NOTE | 2020-08-10 23:50 | Cardiology Progress Note ---
Subjective DATE OF SERVICE: Aug 10, 2020 C/O abd pain; responding to IV rx S/P HD/UF No new fever spikes. Objective Last 24 Hour Vital Signs Date Time Temp Pulse Resp B/P (MAP) Pulse Ox O2 Delivery O2 Flow Rate FiO2 08/10/20 22:59 78 18 135/70 95 08/10/20 21:45 146/78 08/10/20 18:37 99.0 08/10/20 18:36 124 18 140/82 98 08/10/20 18:06 124 18 135/79 98 08/10/20 16:00 124 08/10/20 16:00 99.0 127 18 135/79 (97) 98 08/10/20 14:02 99.0 08/10/20 13:22 146/91 08/10/20 12:00 99.0 126 18 146/91 (109) 97 08/10/20 12:00 88 08/10/20 10:31 87 18 139/80 96 08/10/20 10:01 85 18 141/96 95 08/10/20 10:00 85 141/96 08/10/20 09:00 Room Air 08/10/20 08:00 126 08/10/20 08:00 98.8 85 18 141/96 (111) 95 08/10/20 06:03 140/73 08/10/20 04:00 97.8 83 20 133/73 (93) 96 08/10/20 04:00 124 08/10/20 00:00 99.3 83 20 140/73 (95) 96 08/10/20 00:00 122 ROS: unchanged RHYTHM: NSR, PACs LUNGS: lungs clear bilaterally CARDIAC: normal rate, regular rhythm, normal S1 and S2, gallop/S4 ABDOMEN: normal bowel sounds, soft, tender - Upper quads R>>L EXTREMITIES: non-tender, trace edema Laboratory Tests Test 08/10/20 05:16 Sodium Level 140 MMOL/L (136-145) Potassium Level 3.7 MMOL/L (3.5-5.1) Chloride Level 104 MMOL/L (98-107) Carbon Dioxide Level 28 MMOL/L (21-32) Anion Gap 8 mmol/L (5-15) Blood Urea Nitrogen 30 mg/dL (7-18) H Creatinine 7.2 MG/DL (0.55-1.30) H Estimat Glomerular Filtration Rate 6.8 mL/min (>60) Glucose Level 100 MG/DL (74-106) Calcium Level 7.4 MG/DL (8.5-10.1) L Phosphorus Level 5.2 MG/DL (2.5-4.9) H Magnesium Level 2.1 MG/DL (1.8-2.4) Total Bilirubin 0.4 MG/DL (0.2-1.0) Aspartate Amino Transf (AST/SGOT) 31 U/L (15-37) Alanine Aminotransferase (ALT/SGPT) 11 U/L (12-78) L Alkaline Phosphatase 65 U/L (46-116) Total Protein 8.7 G/DL (6.4-8.2) H Albumin 2.6 G/DL (3.4-5.0) L Globulin 6.1 g/dL Albumin/Globulin Ratio 0.4 (1.0-2.7) L Assessment/Plan Assessment/Plan Missed dialysis Low likelihood for acute/subacute cholecystitis HyperKalemia Possible infectious colitis ESRD hypertension/HHD Conduction system dis Paroxy SVT Ac/chronic diastolic CHF HIV+ Hep C + HD/UF Abx Titrate antiHTN meds Avoid all drugs with negative chronotropic potential; patient has refused pacemaker DC telemetry Nam Barnett MD Aug 10, 2020 23:50
[2020-08-11] VITALS: BP 135/80
--- NOTE | 2020-08-11 01:29 | Consultation ---
DATE OF CONSULTATION: 08/06/2020 CARDIOLOGY CONSULTATION CONSULTING PHYSICIAN: Nam Barnett M.D. REASON FOR CONSULTATION: Hyperkalemia. HISTORY OF PRESENT ILLNESS: This is a 70-year-old female. She has a history of end-stage renal disease on hemodialysis. She has missed 2 dialysis sessions due to abdominal pain. She has a prior history of cholecystitis treated conservatively. Concern has been raised over recurrence. The patient's potassium in the emergency room was noted to be at 7.5. I have been asked to assist with care at this time. PAST MEDICAL HISTORY: End-stage renal disease, hepatitis C, liver disease, HIV positive, hypertensive heart disease, COPD, cholelithiasis, chronic cholecystitis, hydrocodone dependence, history of line sepsis, status post Port-A-Cath. ALLERGIES: Aspirin and iodine contrast. SOCIAL HISTORY: Positive for cocaine abuse. No alcohol. Nonsmoker. REVIEW OF SYSTEMS: Otherwise unremarkable. All systems negative. PHYSICAL EXAMINATION: VITAL SIGNS: Blood pressure 158/92, pulse 76, respirations 18, and afebrile. Port-A-Cath, left upper chest. LUNGS: Clear. CARDIAC: Regular. Normal S1, S2 with a fourth heart sound. ABDOMEN: Soft. EXTREMITIES: No edema. LABORATORY AND DIAGNOSTIC DATA: EKG, sinus rhythm, left ventricular hypertrophy. No peaking T-waves. Chest x-ray, pulmonary venous congestion. IMPRESSION: 1. Missed dialysis sessions. 2. End-stage renal disease. 3. Hyperkalemia. 4. Hypertensive heart disease. 5. Acute on chronic diastolic congestive heart failure. 6. Hydrocodone dependence. 7. Possible recurring cholecystitis. PLAN: 1. Kayexalate. 2. Emergent hemodialysis with ultrafiltration. 3. Titrate antihypertensives. 4. Panculture. 5. Antimicrobials. 6. Surgical consultation. 7. We will follow. Nam Barnett M.D. DR: BAHMAN JOB#: [id number] CC:
[2020-08-11] MEDS: Morphine Sulfate 2mg/ml Inj(IV/IM USE ONLY) IVP PRN ×4 (02:40→22:43)
[2020-08-11 04:00] VITALS: BP 155/90
[2020-08-11] MEDS: HydrOXYzine tab 25mg tab ORAL SCH ×3 (05:08→21:02)
[2020-08-11] MEDS: Zosyn 2.25 gm in D5W 55ml IV SCH ×3 (05:08→21:06)
[2020-08-11] MEDS: HydrALAZINE 25mg tab ORAL SCH ×3 (05:09→21:02)
[2020-08-11] MEDS: Levothyroxine 25mcg tab ORAL SCH (05:40)
--- NOTE | 2020-08-11 06:29 | NUR ---
NURSE NOTES: Transferred pt to [facility] room 401-1. Report given to MARTIN Greenwood. Pt in no resp distress noted. All belongings taken with pt. Plan of care indorsed to.
--- NOTE | 2020-08-11 06:36 | NUR ---
NURSE NOTES: Received the patient from [facility] professor of special education.The patient is alert and oriented x3 and was noted with mild level of anxiety and agitations but a calm environment was provided as indicated. The patient has a left upper chest PermCath for dialysis and a left AC 20g that is patent and asymptomatic.The bed in low and locked level with call light within easy reach.
--- NOTE | 2020-08-11 07:05 | NUR ---
NURSE HAND-OFF: Important Events on Shift:Agitations and restlessness noted Patient Status: Diet: Pending Orders: Pending Results/Labs: Pending MD notification: Latest Vital Signs: Temperature 98.6 , Pulse 130 , B/P 157 /88 , Respiratory Rate 20 , O2 SAT 95 , Room Air, O2 Flow Rate . Vital Sign Comment: Latest Espinoza Fall Score: 60 Fall Risk: High Risk Safety Measures: Call light Within Reach, Bed Alarm Zone 1, Side Rails Side Rails x2, Bed position Low and Locked. Fall Precautions: Yellow Gown Door Sign Patient Fall Education Report given to .
--- NOTE | 2020-08-11 07:35 | NUR ---
NURSE NOTES: Report received from Timo SALAZAR, rounds made. Patient AOx4, calm. Respirations even/unlabored on RA, no SOB. LAC saline lock, intact, patent. Bilateral pedal pitting edema +2. Will provide skin care. Call light in reach, bed in lowest position, will continue to monitor. Addendum: 08/11/20 at 1426 by Natalya Cason RN Will apply seizure pads to side rails, for seizure precautions. Addendum: 08/11/20 at 1614 by Natalya Cason RN Plans for HD today, confirmed with Jose SALAZAR, dialysis nurse from [facility]
[2020-08-11 08:00] VITALS: BP 143/73
[2020-08-11] MEDS: Heparin 5000 units/ml inj SUBQ SCH ×2 (08:21→21:03)
[2020-08-11] MEDS: Docusate 100mg cap ORAL SCH ×3 (08:23→17:06)
[2020-08-11] MEDS: TraZODone 50mg tab ORAL SCH ×2 (08:23→17:05)
[2020-08-11] MEDS: Liothyronine 5mcg tab ORAL SCH (08:39)
--- NOTE | 2020-08-11 10:07 | Nephrology Progress Note ---
Assessment/Plan Problem List: (1) Hyperkalemia (2) ESRD (end stage renal disease) on dialysis (3) Substance abuse (4) Hypertension (5) HCV antibody positive (6) Intractable abdominal pain (7) HIV disease Assessment End-stage renal disease on hemodialysis Presents with hyperkalemia History of substance abuse, cocaine Fluid overload HIV disease Hepatitis C virus antibody positive Hypertensive kidney disease Noncompliance with diet and dialysis Anemia of chronic kidney disease Plan August 11: Due for dialysis today. Medication list reviewed. Patient remains clinically stable. Continue per PMD. August 10: Dialyzed yesterday. Blood pressure is stable. Medication list reviewed. Will order dialysis tomorrow. August 09: Patient about to be started on dialysis. Blood pressure is stable. Continue current management. August 08: Labs reviewed. High potassium normalized. Patient was dialyzed yesterday. Due for dialysis tomorrow. Will start Cytomel 5 mg for low T3 Previously: Patient currently on dialysis against low potassium bath Ultrafiltration Keep the blood pressure in check Continue per PMD Per orders Subjective ROS Limited/Unobtainable: No Constitutional: Reports: malaise Objective Objective Last 24 Hour Vital Signs Date Time Temp Pulse Resp B/P (MAP) Pulse Ox O2 Delivery O2 Flow Rate FiO2 08/11/20 08:15 81 143/73 08/11/20 08:00 98.5 81 18 143/73 (96) 96 08/11/20 05:09 157/88 08/11/20 04:00 130 08/11/20 04:00 98.6 124 20 155/90 (111) 95 08/11/20 00:00 98.2 92 20 135/80 (98) 96 08/11/20 00:00 87 08/10/20 23:29 60 18 125/62 95 08/10/20 22:59 78 18 135/70 95 08/10/20 21:45 146/78 08/10/20 21:00 Room Air 08/10/20 20:00 124 08/10/20 20:00 98.8 80 18 146/78 (100) 97 08/10/20 18:37 99.0 08/10/20 18:36 124 18 140/82 98 08/10/20 18:06 124 18 135/79 98 08/10/20 16:00 124 08/10/20 16:00 99.0 127 18 135/79 (97) 98 08/10/20 14:02 99.0 08/10/20 13:22 146/91 08/10/20 12:00 99.0 126 18 146/91 (109) 97 08/10/20 12:00 88 08/10/20 10:31 87 18 139/80 96 Intake and Output 08/10/20 08/11/20 19:00 07:00 Intake Total 360 ml 250 ml Balance 360 ml 250 ml Intake Oral 360 ml 250 ml # Voids 1 1 # Bowel Movements 3 1 Current Medications Medications (Trade) Dose Ordered Sig/Rochelle Route PRN Reason Start Time Stop Time Status Last Admin Dose Admin Acetaminophen (Tylenol) 650 mg Q6H PRN ORAL FOR FEVER 08/07/20 21:45 09/06/20 21:44 08/07/20 23:35 Acetaminophen/ Hydrocodone Bitart ([place] 10/325) 1 tab DAILY PRN ORAL For Pain 08/06/20 22:45 08/13/20 22:44 08/09/20 05:36 Amlodipine Besylate (Norvasc) 10 mg DAILY ORAL 08/07/20 09:00 09/06/20 08:59 08/10/20 10:00 Chlorhexidine Gluconate (Mamie-Hex 2%) 1 applic DAILY@1999 TOPIC 08/09/20 20:00 11/05/20 19:59 08/10/20 21:53 Docusate Sodium (Colace) 100 mg TID ORAL 08/07/20 13:00 09/06/20 08:59 08/11/20 08:23 Escitalopram Oxalate (Lexapro) 10 mg DAILY ORAL 08/07/20 09:00 09/06/20 08:59 08/11/20 08:23 Heparin Sodium (Porcine) (Heparin 5000 units/ml) 5,000 units EVERY 12 HOURS SUBQ 08/07/20 09:00 09/21/20 08:59 08/11/20 08:21 Hydralazine HCl (Apresoline) 75 mg EVERY 8 HOURS ORAL 08/07/20 06:00 11/05/20 05:59 08/11/20 05:09 Hydroxyzine HCl (Atarax) 25 mg Q8HR ORAL 08/07/20 14:00 09/05/20 22:44 08/11/20 05:08 Levothyroxine Sodium (Synthroid) 75 mcg BEFORE BREAKFAST ORAL 08/12/20 06:30 09/06/20 06:29 Liothyronine Sodium (CytomeL) 5 mcg DAILY ORAL 08/09/20 09:00 09/08/20 08:59 08/11/20 08:39 Loperamide HCl (Imodium) 2 mg Q4H PRN ORAL Diarrhea 08/09/20 14:00 09/08/20 13:59 Lorazepam (Ativan) 1 mg TIDPRN PRN ORAL anxiety 08/07/20 12:58 08/14/20 12:57 08/10/20 22:59 Morphine Sulfate (Morphine Sulfate) 1 mg Q4H PRN IVP Severe Pain (Pain Scale 7-10) 08/06/20 22:45 08/13/20 22:44 08/11/20 08:22 Ondansetron HCl (Zofran) 4 mg Q6H PRN IVP Nausea & Vomiting 08/06/20 22:45 09/05/20 22:44 Pantoprazole (Protonix) 40 mg BID ORAL 08/07/20 09:00 09/06/20 08:59 08/11/20 08:23 Piperacillin Sod/ Tazobactam Sod 2.25 gm/Dextrose 55 ml @ 110 mls/hr Q8HR IV 08/07/20 22:00 08/12/20 21:59 08/11/20 05:08 Sevelamer Carbonate (Renvela) 2,400 mg THREE TIMES A DAY ORAL 08/07/20 13:00 11/05/20 12:59 08/11/20 08:22 Trazodone HCl (Desyrel) 50 mg BID ORAL 08/06/20 23:00 09/05/20 22:59 08/11/20 08:23 Vancomycin HCl (Vanco pharmacy to dose) 1 ea DAILY PRN MISC Per rx protocol 08/07/20 21:45 09/06/20 21:44 Height (Feet): 5 Height (Inches): 6.00 Weight (Pounds): 150 General Appearance: no apparent distress Cardiovascular: other - Variable rate Respiratory/Chest: decreased breath sounds Abdomen: soft Objective No change Jack Pryor MD Aug 11, 2020 10:07
--- NOTE | 2020-08-11 11:22 | Surgery Progress Note ---
Surgery Progress Note Subjective Symptoms: tolerating diet, passing flatus, BM Additional Comments Patient seen and examined bedside. No acute events. Resting comfortably. Labs reviewed micro reviewed imaging reviewed. Afebrile hemodynamically stable at this time Objective Last 24 Hour Vital Signs Date Time Temp Pulse Resp B/P (MAP) Pulse Ox O2 Delivery O2 Flow Rate FiO2 08/11/20 08:15 81 143/73 08/11/20 08:00 98.5 81 18 143/73 (96) 96 08/11/20 05:09 157/88 08/11/20 04:00 130 08/11/20 04:00 98.6 124 20 155/90 (111) 95 08/11/20 00:00 98.2 92 20 135/80 (98) 96 08/11/20 00:00 87 08/10/20 23:29 60 18 125/62 95 08/10/20 22:59 78 18 135/70 95 08/10/20 21:45 146/78 08/10/20 21:00 Room Air 08/10/20 20:00 124 08/10/20 20:00 98.8 80 18 146/78 (100) 97 08/10/20 18:37 99.0 08/10/20 18:36 124 18 140/82 98 08/10/20 18:06 124 18 135/79 98 08/10/20 16:00 124 08/10/20 16:00 99.0 127 18 135/79 (97) 98 08/10/20 14:02 99.0 08/10/20 13:22 146/91 08/10/20 12:00 99.0 126 18 146/91 (109) 97 08/10/20 12:00 88 I&O Intake and Output 08/10/20 08/11/20 19:00 07:00 Intake Total 360 ml 250 ml Balance 360 ml 250 ml Intake Oral 360 ml 250 ml # Voids 1 1 # Bowel Movements 3 1 Dressing: other Wound: other Cardiovascular: RSR Respiratory: decreased breath sounds Abdomen: soft, flat, non-tender, present bowel sounds, non-distended Extremities: no edema, no tenderness, no cyanosis Plan Problems: (1) Hyperkalemia (2) CHF (congestive heart failure), NYHA class II (3) ESRD (end stage renal disease) on dialysis (4) Sick sinus syndrome (5) Fluid overload (6) Substance abuse (7) Cocaine abuse (8) Anxiety (9) Cirrhosis (10) Pruritus (11) Cholecystitis, acute (12) Weakness (13) Hypertension (14) HIV disease (15) Cyst of skin (16) Epileptic seizure, generalized (17) Open wound of chest wall (18) Adnexal mass (19) HCV antibody positive (20) Hypertensive urgency (21) Intractable abdominal pain (22) Recurrent vulvovaginal herpes simplex (23) Abdominal pain Assessment & Plan: This is a 70-year-old female well-known to me with recent episode of acute cholecystitis treated conservative management given her significant history who presents with abdominal pain generalized to all 4 out of 10 associated nausea currently no emesis passing flatus having diarrhea. Afebrile hemodynamically stable labs noted missed dialysis. Abdominal exam with mild discomfort no peritonitis. LFTs okay. Ultrasound reviewed. Unlikely acute cholecystitis can. Abdominal pain potentially diarrhea infectious etiology enteritis. Okay for diet. Dialysis as per nephrology. Electrolyte imbalance will improve. Will monitor and follow with serial exams. Hold on further radiology for now. May consider CT if not improving. Thank you for letting participate patient's care will follow with recommendations kub noted start oral diet diet as tolerated bowel function resumed improving Liver: Subjective hepatomegaly. No intrahepatic bile duct dilation. Gallbladder: The gallbladder is distended measuring up to 4 cm in short axis. There are shadowing gallstones as well as gallbladder sludge. Negative for gallbladder wall thickening or pericholecystic fluid. Common bile duct: Negative for biliary ductal dilatation. No stones. Pancreas: Unremarkable as visualized. Kidneys: Limited imaging of both kidneys demonstrates bilateral renal atrophy and increased cortical echogenicity suggesting chronic medical renal disease. No stones. No hydronephrosis. Spleen: Splenomegaly with long axis of the spleen measuring up to 16 cm. Aorta: Unremarkable. No aneurysm. Inferior vena cava: Unremarkable. IMPRESSION: Hepatosplenomegaly and kidneys with appearance of chronic medical renal disease. Cholelithiasis without biliary ductal dilatation. Deon Crowe Aug 11, 2020 11:22
[2020-08-11 12:00] VITALS: BP 136/81
--- NOTE | 2020-08-11 12:05 | Infectious Diseases Prog Note ---
Assessment/Plan Assessment/Plan antibiotics : vancomycin iv, zosyn A 1. Fevers improving 2. HIV. 3. Renal failure, on dialysis. 4. Chronic pain syndrome. P 1. Continue IV vancomycin and Zosyn. 2. We will follow up cultures Subjective ROS Limited/Unobtainable: Yes Allergies: Coded Allergies: ASPIRIN (Unverified Allergy, Unknown, 01/16/20) IODINE (Verified Allergy, Unknown, 01/07/20) Uncoded Allergies: CONTRAST DYE (Allergy, Unknown, 01/07/20) NSAID (Allergy, Unknown, 04/24/20) Objective Last 24 Hour Vital Signs Date Time Temp Pulse Resp B/P (MAP) Pulse Ox O2 Delivery O2 Flow Rate FiO2 08/11/20 08:15 81 143/73 08/11/20 08:00 98.5 81 18 143/73 (96) 96 08/11/20 05:09 157/88 08/11/20 04:00 130 08/11/20 04:00 98.6 124 20 155/90 (111) 95 08/11/20 00:00 98.2 92 20 135/80 (98) 96 08/11/20 00:00 87 08/10/20 23:29 60 18 125/62 95 08/10/20 22:59 78 18 135/70 95 08/10/20 21:45 146/78 08/10/20 21:00 Room Air 08/10/20 20:00 124 08/10/20 20:00 98.8 80 18 146/78 (100) 97 08/10/20 18:37 99.0 08/10/20 18:36 124 18 140/82 98 08/10/20 18:06 124 18 135/79 98 08/10/20 16:00 124 08/10/20 16:00 99.0 127 18 135/79 (97) 98 08/10/20 14:02 99.0 08/10/20 13:22 146/91 Height (Feet): 5 Height (Inches): 6.00 Weight (Pounds): 150 Respiratory/Chest: lungs clear Cardiovascular: normal rate, regular rhythm, no gallop/murmur Abdomen: soft, non tender Extremities: no edema Current Medications Medications (Trade) Dose Ordered Sig/Rochelle Route PRN Reason Start Time Stop Time Status Last Admin Dose Admin Acetaminophen (Tylenol) 650 mg Q6H PRN ORAL FOR FEVER 08/07/20 21:45 09/06/20 21:44 08/07/20 23:35 Acetaminophen/ Hydrocodone Bitart ([place] 10/325) 1 tab DAILY PRN ORAL For Pain 08/06/20 22:45 08/13/20 22:44 08/09/20 05:36 Amlodipine Besylate (Norvasc) 10 mg DAILY ORAL 08/07/20 09:00 09/06/20 08:59 08/10/20 10:00 Chlorhexidine Gluconate (Mamie-Hex 2%) 1 applic DAILY@2000 TOPIC 08/09/20 20:00 11/05/20 19:59 08/10/20 21:53 Docusate Sodium (Colace) 100 mg TID ORAL 08/07/20 13:00 09/06/20 08:59 08/11/20 08:23 Escitalopram Oxalate (Lexapro) 10 mg DAILY ORAL 08/07/20 09:00 09/06/20 08:59 08/11/20 08:23 Heparin Sodium (Porcine) (Heparin 5000 units/ml) 5,000 units EVERY 12 HOURS SUBQ 08/07/20 09:00 09/21/20 08:59 08/11/20 08:21 Hydralazine HCl (Apresoline) 75 mg EVERY 8 HOURS ORAL 08/07/20 06:00 11/05/20 05:59 08/11/20 05:09 Hydroxyzine HCl (Atarax) 25 mg Q8HR ORAL 08/07/20 14:00 09/05/20 22:44 08/11/20 05:08 Levothyroxine Sodium (Synthroid) 75 mcg BEFORE BREAKFAST ORAL 08/12/20 06:30 09/06/20 06:29 Liothyronine Sodium (CytomeL) 5 mcg DAILY ORAL 08/09/20 09:00 09/08/20 08:59 08/11/20 08:39 Loperamide HCl (Imodium) 2 mg Q4H PRN ORAL Diarrhea 08/09/20 14:00 09/08/20 13:59 Lorazepam (Ativan) 1 mg TIDPRN PRN ORAL anxiety 08/07/20 12:58 08/14/20 12:57 08/10/20 22:59 Morphine Sulfate (Morphine Sulfate) 1 mg Q4H PRN IVP Severe Pain (Pain Scale 7-10) 08/06/20 22:45 08/13/20 22:44 08/11/20 08:22 Ondansetron HCl (Zofran) 4 mg Q6H PRN IVP Nausea & Vomiting 08/06/20 22:45 09/05/20 22:44 Pantoprazole (Protonix) 40 mg BID ORAL 08/07/20 09:00 09/06/20 08:59 08/11/20 08:23 Piperacillin Sod/ Tazobactam Sod 2.25 gm/Dextrose 55 ml @ 110 mls/hr Q8HR IV 08/07/20 22:00 08/12/20 21:59 08/11/20 05:08 Sevelamer Carbonate (Renvela) 2,400 mg THREE TIMES A DAY ORAL 08/07/20 13:00 11/05/20 12:59 08/11/20 08:22 Trazodone HCl (Desyrel) 50 mg BID ORAL 08/06/20 23:00 09/05/20 22:59 08/11/20 08:23 Vancomycin HCl ([facility] pharmacy to dose) 1 ea DAILY PRN MISC Per rx protocol 08/07/20 21:45 09/06/20 21:44 Elvis Garibay MD Aug 11, 2020 12:05
--- NOTE | 2020-08-11 13:12 | NUR ---
CASE MANAGEMENT:REVIEW SI;HYPERKALEMIA. POSSIBLE INFECTIOUS COLITIS AC/CHR CHF. HIV. HEP C. 98.6 130 20 155/90 95% ON RA NO LABS IS;ZOSYN IV Q8 NORVASC PO QD HEPARIN SQ Q12 ATARAX PO Q8 PROTONIX PO BID SYNTHROID PO QD HYDRALAZINE PO Q8 MORPHINE IV Q4 PRN MED SURG STATUS DCP;PATIENT IS FROM HOME
[2020-08-11 16:00] VITALS: BP 131/79
--- NOTE | 2020-08-11 17:50 | NUR ---
NURSE NOTES: Patient starting HD at this time.
--- NOTE | 2020-08-11 17:58 | General Progress Note ---
Subjective ROS Limited/Unobtainable: No Constitutional: Reports: malaise, weakness HEENT: Reports: no symptoms Cardiovascular: Reports: no symptoms Respiratory: Reports: no symptoms Gastrointestinal/Abdominal: Reports: no symptoms Genitourinary: Reports: no symptoms Neurologic/Psychiatric: Reports: no symptoms Endocrine: Reports: no symptoms Hematologic/Lymphatic: Reports: no symptoms Allergies: Coded Allergies: ASPIRIN (Unverified Allergy, Unknown, 01/16/20) IODINE (Verified Allergy, Unknown, 01/07/20) Uncoded Allergies: CONTRAST DYE (Allergy, Unknown, 01/07/20) NSAID (Allergy, Unknown, 04/24/20) All Systems: reviewed and negative except above Subjective no new complaints. c/o generalized pain. remains on iv abx. no fever or chills. no sob. Objective Last 24 Hour Vital Signs Date Time Temp Pulse Resp B/P (MAP) Pulse Ox O2 Delivery O2 Flow Rate FiO2 08/11/20 16:00 98.4 83 18 131/79 (96) 96 08/11/20 12:00 97.5 83 17 136/81 (99) 97 08/11/20 09:00 Room Air 08/11/20 08:15 81 143/73 08/11/20 08:00 98.5 81 18 143/73 (96) 96 81 08/11/20 05:09 157/88 08/11/20 04:00 130 08/11/20 04:00 98.6 124 20 155/90 (111) 95 08/11/20 00:00 98.2 92 20 135/80 (98) 96 08/11/20 00:00 87 08/10/20 23:29 60 18 125/62 95 08/10/20 22:59 78 18 135/70 95 08/10/20 21:45 146/78 08/10/20 21:00 Room Air 08/10/20 20:00 124 08/10/20 20:00 98.8 80 18 146/78 (100) 97 08/10/20 18:37 99.0 08/10/20 18:36 124 18 140/82 98 08/10/20 18:06 124 18 135/79 98 Intake and Output 08/10/20 08/11/20 19:00 07:00 Intake Total 360 ml 250 ml Balance 360 ml 250 ml Intake Oral 360 ml 250 ml # Voids 1 1 # Bowel Movements 3 1 Height (Feet): 5 Height (Inches): 6.00 Weight (Pounds): 150 Objective General Appearance: WD/WN, alert EENT: normal ENT inspection Neck: normal alignment, supple Cardiovascular: normal peripheral pulses, normal rate, regular rhythm Respiratory/Chest: chest wall non-tender, lungs clear, normal breath sounds, no respiratory distress, no accessory muscle use Abdomen: normal bowel sounds, non tender, soft, no organomegaly, no mass Edema: no edema noted Leg (L), no edema noted Leg (R) Edema: trace edema 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: 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 grossly normal, alert, responsive Assessment/Plan Problem List: (1) Abdominal pain ICD Codes: R10.9 - Unspecified abdominal pain SNOMED: 53269739 (2) Epileptic seizure, generalized ICD Codes: G40.309 - Generalized idiopathic epilepsy and epileptic syndromes, not intractable, without status epilepticus SNOMED: 05839859 (3) Hypertension ICD Codes: I10 - Essential (primary) hypertension SNOMED: 63655551 (4) Anxiety ICD Codes: F41.9 - Anxiety disorder, unspecified SNOMED: 39438925 (5) Cocaine abuse ICD Codes: F14.10 - Cocaine abuse, uncomplicated SNOMED: 71545868 (6) Cirrhosis ICD Codes: K74.60 - Unspecified cirrhosis of liver SNOMED: 07463243 (7) CHF (congestive heart failure), NYHA class II ICD Codes: I50.9 - Heart failure, unspecified SNOMED: 922000568, 233204297 (8) ESRD (end stage renal disease) on dialysis ICD Codes: N18.6 - End stage renal disease; Z99.2 - Dependence on renal dialysis SNOMED: 933282208 (9) Sick sinus syndrome ICD Codes: I49.5 - Sick sinus syndrome SNOMED: 39944112 Status: stable Assessment/Plan: stable cont current rx iv abx per id follow up cultures. negative so far ID eval appreciated HD per renal pain rx as needed. try to avoid iv monitor hr Michael Peralta MD Aug 11, 2020 17:58
--- NOTE | 2020-08-11 18:06 | Cardiology Progress Note ---
Subjective DATE OF SERVICE: Aug 11, 2020 C/O episodic abd pain. No N/V/D. S/P HD/UF No new fever spikes. BP parameters improved Remains on IV antimicrobials Objective Last 24 Hour Vital Signs Date Time Temp Pulse Resp B/P (MAP) Pulse Ox O2 Delivery O2 Flow Rate FiO2 08/11/20 16:00 98.4 83 18 131/79 (96) 96 08/11/20 12:00 97.5 83 17 136/81 (99) 97 08/11/20 09:00 Room Air 08/11/20 08:15 81 143/73 08/11/20 08:00 98.5 81 18 143/73 (96) 96 81 08/11/20 05:09 157/88 08/11/20 04:00 130 08/11/20 04:00 98.6 124 20 155/90 (111) 95 08/11/20 00:00 98.2 92 20 135/80 (98) 96 08/11/20 00:00 87 08/10/20 23:29 60 18 125/62 95 08/10/20 22:59 78 18 135/70 95 08/10/20 21:45 146/78 08/10/20 21:00 Room Air 08/10/20 20:00 124 08/10/20 20:00 98.8 80 18 146/78 (100) 97 08/10/20 18:37 99.0 08/10/20 18:36 124 18 140/82 98 08/10/20 18:06 124 18 135/79 98 ROS: unchanged RHYTHM: NSR, PACs LUNGS: lungs clear bilaterally CARDIAC: normal rate, regular rhythm, normal S1 and S2, gallop/S4 ABDOMEN: normal bowel sounds, soft, tender - Upper quads R>>L EXTREMITIES: non-tender, trace edema Assessment/Plan Assessment/Plan Missed dialysis prior to admit Low likelihood for acute/subacute cholecystitis HyperKalemia corrected with HD Possible infectious colitis ESRD hypertension/HHD Conduction system dis Paroxysmal SVT Ac/chronic diastolic CHF HIV+ Hep C + HD/UF Abx per ID Titrate antiHTN meds Avoid all drugs with negative chronotropic potential; patient has refused pacemaker in past. Nam Barnett MD Aug 11, 2020 18:06
--- NOTE | 2020-08-11 19:10 | NUR ---
NURSE HAND-OFF: Important Events on Shift:HD at 1750, medicated with MS 1mg IV x2 Patient Status: stable Diet: Renal Pending Orders:labs AM Pending Results/Labs:CRP BNP CBC CMP MG PHOS 08/12 Pending MD notification:none Latest Vital Signs: Temperature 98.4 , Pulse 83 , B/P 131 /79 , Respiratory Rate 18 , O2 SAT 96 , Room Air, O2 Flow Rate . Vital Sign Comment: none Latest Espinoza Fall Score: 75 Fall Risk: High Risk Safety Measures: Call light Within Reach, Bed Alarm Zone 1, Side Rails Side Rails x2, Bed position Low and Locked. Fall Precautions: Yellow Socks Yellow Gown Door Sign Patient Fall Education Report given to Asia SALAZAR.
--- NOTE | 2020-08-11 19:30 | NUR ---
NURSE NOTES received report from sergo parks. patient on bed, asleep. on room air. no sob. no facial grimacing or moaning. noted with left ac iv access, saline lock. per kasey, " hd done with 2 liters out". hd access on the left upper chest permacath. bed alarm on. bed locked and in lowest position. call light and light button within easy reach. will continue plan of care.
[2020-08-11 20:00] VITALS: BP 142/76
[2020-08-11] MEDS: Dyna-Hex 2% Top Sol 2oz TOPIC SCH (21:02)
[2020-08-12] VITALS: BP 139/72
[2020-08-12] MEDS: LORazepam 1mg tab ORAL PRN ×2 (00:46→21:48)
[2020-08-12] MEDS: Morphine Sulfate 2mg/ml Inj(IV/IM USE ONLY) IVP PRN ×4 (03:30→21:03)
[2020-08-12 04:00] VITALS: BP 138/71
[2020-08-12] MEDS: HydrOXYzine tab 25mg tab ORAL SCH ×3 (06:03→21:03)
[2020-08-12] MEDS: Zosyn 2.25 gm in D5W 55ml IV SCH ×3 (06:03→21:03)
[2020-08-12] MEDS: HydrALAZINE 25mg tab ORAL SCH ×2 (06:03→13:49)
--- NOTE | 2020-08-12 06:36 | NUR ---
NURSE HAND-OFF: Important Events on Shift: pain mngt Patient Status: stable Diet: renal diet Pending Orders: Pending Results/Labs: Pending MD notification: Latest Vital Signs: Temperature 97.8 , Pulse 86 , B/P 152 /71 , Respiratory Rate 20 , O2 SAT 99 , Room Air, O2 Flow Rate . Vital Sign Comment: Latest Espinoza Fall Score: 60 Fall Risk: High Risk Safety Measures: Call light Within Reach, Bed Alarm Zone 1, Side Rails Side Rails x2, Bed position Low and Locked. Fall Precautions: Yellow Gown Door Sign Patient Fall Education Addendum: 08/12/20 at 0723 by Ila Christiansen RN HAND-OFF: Report given to sergo ramos.
--- NOTE | 2020-08-12 07:40 | NUR ---
NURSE NOTES: received report from MARTIN Betancourt. patient in bed. A&Ox4, verbally responsive. no respiratory distress on room air. pain on back. 02/10. IV on RAC hep lock. intact and flushed. perma cath on left upper chest for HD. seizure precaution with side rails are padded. bed in the lowest position and locked. call light within reach, alarm on.
[2020-08-12 08:00] VITALS: BP 158/83
[2020-08-12 08:31] LABS: HEMATOCRIT 35.7 % (37.0-47.0); HEMOGLOBIN 11.4 G/DL (12.0-16.0); MEAN CORPUSCULAR VOLUME 92 FL (80-99); PLATELET COUNT 144 K/UL (150-450); RED BLOOD COUNT 3.89 M/UL (4.20-5.40); RED CELL DISTRIBUTION WIDTH 17.8 % (11.6-14.8); WHITE BLOOD COUNT 3.3 K/UL (4.8-10.8)
[2020-08-12 08:48] LABS: ALBUMIN 2.7 G/DL (3.4-5.0); ALBUMIN/GLOBULIN RATIO 0.4 (1.0-2.7); BILIRUBIN,TOTAL 0.4 MG/DL (0.2-1.0); CALCIUM 7.7 MG/DL (8.5-10.1); POTASSIUM 3.9 MMOL/L (3.5-5.1)
[2020-08-12] MEDS: Heparin 5000 units/ml inj SUBQ SCH ×2 (09:00→20:58)
[2020-08-12] MEDS: Docusate 100mg cap ORAL SCH ×3 (09:00→17:24)
[2020-08-12] MEDS: Liothyronine 5mcg tab ORAL SCH (09:01)
[2020-08-12] MEDS: TraZODone 50mg tab ORAL SCH ×2 (09:01→17:24)
[2020-08-12 09:07] LABS: PHOSPHORUS 4.8 MG/DL (2.5-4.9)
--- NOTE | 2020-08-12 10:20 | General Progress Note ---
Subjective ROS Limited/Unobtainable: No Constitutional: Reports: malaise, weakness HEENT: Reports: no symptoms Cardiovascular: Reports: no symptoms Respiratory: Reports: cough Gastrointestinal/Abdominal: Reports: abdominal pain Genitourinary: Reports: no symptoms Neurologic/Psychiatric: Reports: no symptoms Endocrine: Reports: no symptoms Hematologic/Lymphatic: Reports: no symptoms Allergies: Coded Allergies: ASPIRIN (Unverified Allergy, Unknown, 01/16/20) IODINE (Verified Allergy, Unknown, 01/07/20) Uncoded Allergies: CONTRAST DYE (Allergy, Unknown, 01/07/20) NSAID (Allergy, Unknown, 04/24/20) All Systems: reviewed and negative except above Subjective no new complaints. c/o generalized pain. requesting iv pain meds. remains on iv abx. no fever or chills. no sob. Objective Last 24 Hour Vital Signs Date Time Temp Pulse Resp B/P (MAP) Pulse Ox O2 Delivery O2 Flow Rate FiO2 08/12/20 09:01 75 158/83 08/12/20 08:00 97.8 75 20 158/83 (108) 94 08/12/20 06:03 152/71 08/12/20 04:00 97.8 86 20 138/71 (93) 99 08/12/20 04:00 97.6 08/12/20 01:16 85 18 135/76 99 08/12/20 00:46 87 18 145/72 99 08/12/20 00:00 97.6 87 18 139/72 (94) 98 08/11/20 23:13 98.9 08/11/20 21:02 153/76 08/11/20 21:00 Room Air 08/11/20 20:00 98.9 85 18 142/76 (98) 97 08/11/20 16:00 98.4 83 18 131/79 (96) 96 08/11/20 12:00 97.5 83 17 136/81 (99) 97 Intake and Output 08/11/20 08/12/20 19:00 07:00 Intake Total 400 ml 250 ml Output Total 2000 ml Balance -1600 ml 250 ml Intake Oral 400 ml 250 ml Hemodialysis UF 2000 ml # Voids 1 Laboratory Tests 08/12/20 08:05: White Blood Count 3.3L, Red Blood Count 3.89L, Hemoglobin 11.4L, Hematocrit 35.7L, Mean Corpuscular Volume 92, Mean Corpuscular Hemoglobin 29.3, Mean Corpuscular Hemoglobin Concent 31.9L, Red Cell Distribution Width 17.8H, Platelet Count 144L, Mean Platelet Volume 6.0L, Neutrophils (%) (Auto) , Lymphocytes (%) (Auto) , Monocytes (%) (Auto) , Eosinophils (%) (Auto) , Basophils (%) (Auto) , Differential Total Cells Counted 100, Neutrophils % (Man ual) 61, Lymphocytes % (Manual) 31, Monocytes % (Manual) 6, Eosinophils % (Manual) 2, Basophils % (Manual) 0, Band Neutrophils 0, Platelet Estimate DecreasedL, Platelet Morphology Normal, Anisocytosis 1+, Sodium Level 138, Potassium Level 3.9, Chloride Level 100, Carbon Dioxide Level 29, Anion Gap 9, Blood Urea Nitrogen 28H, Creatinine 7.0H, Estimat Glomerular Filtration Rate 7.2, Glucose Level 102, Calcium Level 7.7L, Phosphorus Level 4.8, Magnesium Level 2.2, Total Bilirubin 0.4, Aspartate Amino Transf (AST/SGOT) 39H, Alanine A minotransferase (ALT/SGPT) 13, Alkaline Phosphatase 67, C-Reactive Protein, Quantitative [Pending], Pro-B-Type Natriuretic Peptide > 14616Y, Total Protein 8.9H, Albumin 2.7L, Globulin 6.2, Albumin/Globulin Ratio 0.4L, Random Vancomycin Level 15.6 Height (Feet): 5 Height (Inches): 6.00 Weight (Pounds): 150 Objective General Appearance: WD/WN, alert EENT: normal ENT inspection Neck: normal alignment, supple Cardiovascular: normal peripheral pulses, normal rate, regular rhythm Respiratory/Chest: chest wall non-tender, lungs clear, normal breath sounds, no respiratory distress, no accessory muscle use Abdomen: normal bowel sounds, non tender, soft, no organomegaly, no mass Edema: no edema noted Leg (L), no edema noted Leg (R) Edema: trace edema 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, alert, responsive Assessment/Plan Problem List: (1) Abdominal pain ICD Codes: R10.9 - Unspecified abdominal pain SNOMED: 56665521 (2) Epileptic seizure, generalized ICD Codes: G40.309 - Generalized idiopathic epilepsy and epileptic syndromes, not intractable, without status epilepticus SNOMED: 31950821 (3) Hypertension ICD Codes: I10 - Essential (primary) hypertension SNOMED: 78276420 (4) Anxiety ICD Codes: F41.9 - Anxiety disorder, unspecified SNOMED: 42081975 (5) Cocaine abuse ICD Codes: F14.10 - Cocaine abuse, uncomplicated SNOMED: 24748758 (6) Cirrhosis ICD Codes: K74.60 - Unspecified cirrhosis of liver SNOMED: 75144598 (7) CHF (congestive heart failure), NYHA class II ICD Codes: I50.9 - Heart failure, unspecified SNOMED: 612758554, 080106836 (8) ESRD (end stage renal disease) on dialysis ICD Codes: N18.6 - End stage renal disease; Z99.2 - Dependence on renal dialysis SNOMED: 339440999 (9) Sick sinus syndrome ICD Codes: I49.5 - Sick sinus syndrome SNOMED: 43332161 Status: stable Assessment/Plan: stable cont current rx iv abx per id follow up cultures. negative so far ID eval appreciated HD per renal pain rx as needed. try to avoid iv monitor hr Michael Peralta MD Aug 12, 2020 10:20
--- NOTE | 2020-08-12 10:51 | Nephrology Progress Note ---
Assessment/Plan Problem List: (1) Hyperkalemia (2) ESRD (end stage renal disease) on dialysis (3) Substance abuse (4) HCV antibody positive (5) Intractable abdominal pain (6) HIV disease (7) Hypertensive kidney disease Assessment End-stage renal disease on hemodialysis Presents with hyperkalemia History of substance abuse, cocaine Fluid overload HIV disease Hepatitis C virus antibody positive Hypertensive kidney disease Noncompliance with diet and dialysis Anemia of chronic kidney disease Plan August 12: Dialyzed yesterday. Will dialyze tomorrow. Labs and medication list reviewed. Continue per PMD. August 11: Due for dialysis today. Medication list reviewed. Patient remains c linically stable. Continue per PMD. August 10: Dialyzed yesterday. Blood pressure is stable. Medication list reviewed. Will order dialysis tomorrow. August 09: Patient about to be started on dialysis. Blood pressure is stable. Continue current management. August 08: Labs reviewed. High potassium normalized. Patient was dialyzed yesterday. Due for dialysis tomorrow. Will start Cytomel 5 mg for low T3 Previously: Patient currently on dialysis against low potassium bath Ultrafiltration Keep the blood pressure in check Continue per PMD Per orders Subjective ROS Limited/Unobtainable: No Constitutional: Reports: malaise, weakness Objective Objective Last 24 Hour Vital Signs Date Time Temp Pulse Resp B/P (MAP) Pulse Ox O2 Delivery O2 Flow Rate FiO2 08/12/20 09:01 75 158/83 08/12/20 09:00 Room Air 08/12/20 08:00 97.8 75 20 158/83 (108) 94 08/12/20 06:03 152/71 08/12/20 04:00 97.8 86 20 138/71 (93) 99 08/12/20 04:00 97.6 08/12/20 01:16 85 18 135/76 99 08/12/20 00:46 87 18 145/72 99 08/12/20 00:00 97.6 87 18 139/72 (94) 98 08/11/20 23:13 98.9 08/11/20 21:02 153/76 08/11/20 21:00 Room Air 08/11/20 20:00 98.9 85 18 142/76 (98) 97 08/11/20 16:00 98.4 83 18 131/79 (96) 96 08/11/20 12:00 97.5 83 17 136/81 (99) 97 Intake and Output 08/11/20 08/12/20 19:00 07:00 Intake Total 400 ml 250 ml Output Total 2000 ml Balance -1600 ml 250 ml Intake Oral 400 ml 250 ml Hemodialysis UF 2000 ml # Voids 1 Current Medications Medications (Trade) Dose Ordered Sig/Rochelle Route PRN Reason Start Time Stop Time Status Last Admin Dose Admin Acetaminophen (Tylenol) 650 mg Q6H PRN ORAL FOR FEVER 08/07/20 21:45 09/06/20 21:44 08/07/20 23:35 Acetaminophen/ Hydrocodone Bitart ([place] 10/325) 1 tab DAILY PRN ORAL For Pain 08/06/20 22:45 08/13/20 22:44 08/09/20 05:36 Amlodipine Besylate (Norvasc) 10 mg DAILY ORAL 08/07/20 09:00 09/06/20 08:59 08/12/20 09:01 Chlorhexidine Gluconate (Mamie-Hex 2%) 1 applic DAILY@2000 TOPIC 08/09/20 20:00 11/05/20 19:59 08/11/20 21:02 Docusate Sodium (Colace) 100 mg TID ORAL 08/07/20 13:00 09/06/20 08:59 08/12/20 09:00 Escitalopram Oxalate (Lexapro) 10 mg DAILY ORAL 08/07/20 09:00 09/06/20 08:59 08/12/20 09:01 Heparin Sodium (Porcine) (Heparin 5000 units/ml) 5,000 units EVERY 12 HOURS SUBQ 08/07/20 09:00 09/21/20 08:59 08/11/20 21:03 Hydralazine HCl (Apresoline) 75 mg EVERY 8 HOURS ORAL 08/07/20 06:00 11/05/20 05:59 08/12/20 06:03 Hydroxyzine HCl (Atarax) 25 mg Q8HR ORAL 08/07/20 14:00 09/05/20 22:44 08/12/20 06:03 Levothyroxine Sodium (Synthroid) 75 mcg BEFORE BREAKFAST ORAL 08/12/20 06:30 09/06/20 06:29 08/12/20 06:03 Liothyronine Sodium (CytomeL) 5 mcg DAILY ORAL 08/09/20 09:00 09/08/20 08:59 08/12/20 09:01 Loperamide HCl (Imodium) 2 mg Q4H PRN ORAL Diarrhea 08/09/20 14:00 09/08/20 13:59 Lorazepam (Ativan) 1 mg TIDPRN PRN ORAL anxiety 08/07/20 12:58 08/14/20 12:57 08/12/20 00:46 Morphine Sulfate (Morphine Sulfate) 1 mg Q4H PRN IVP Severe Pain (Pain Scale 7-10) 08/06/20 22:45 08/13/20 22:44 08/12/20 09:03 Ondansetron HCl (Zofran) 4 mg Q6H PRN IVP Nausea & Vomiting 08/06/20 22:45 09/05/20 22:44 Pantoprazole (Protonix) 40 mg BID ORAL 08/07/20 09:00 09/06/20 08:59 08/12/20 09:01 Piperacillin Sod/ Tazobactam Sod 2.25 gm/Dextrose 55 ml @ 110 mls/hr Q8HR IV 08/11/20 22:00 08/18/20 21:59 08/12/20 06:03 Sevelamer Carbonate (Renvela) 2,400 mg THREE TIMES A DAY ORAL 08/07/20 13:00 11/05/20 12:59 08/12/20 09:01 Trazodone HCl (Desyrel) 50 mg BID ORAL 08/06/20 23:00 09/05/20 22:59 08/12/20 09:01 Vancomycin HCl ([facility] pharmacy to dose) 1 ea DAILY PRN MISC Per rx protocol 08/07/20 21:45 09/06/20 21:44 Vancomycin HCl 750 mg/Sodium Chloride 275 ml @ 183.333 mls/hr ONCE IVPB 08/12/20 12:00 08/12/20 15:00 Laboratory Tests 08/12/20 08:05: White Blood Count 3.3L, Red Blood Count 3.89L, Hemoglobin 11.4L, Hematocrit 35.7L, Mean Corpuscular Volume 92, Mean Corpuscular Hemoglobin 29.3, Mean Corpuscular Hemoglobin Concent 31.9L, Red Cell Distribution Width 17.8H, Platelet Count 144L, Mean Platelet Volume 6.0L, Neutrophils (%) (Auto) , Lymphocytes (%) (Auto) , Monocytes (%) (Auto) , Eosinophils (%) (Auto) , Basophils (%) (Auto) , Differential Total Cells Counted 100, Neutrophils % (Manual) 61, Lymphocytes % (Manual) 31, Monocytes % (Manual) 6, Eosinophils % (Manual) 2, Basophils % (Manual) 0, Band Neutrophils 0, Platelet Estimate DecreasedL, Platelet Morphology Normal, Anisocytosis 1+, Sodium Level 138, Potassium Level 3.9, Chloride Level 100, Carbon Dioxide Level 29, Anion Gap 9, Blood Urea Nitrogen 28H, Creatinine 7.0H, Estimat Glomerular Filtration Rate 7.2, Glucose Level 102, Calcium Level 7.7L, Phosphorus Level 4.8, Magnesium Level 2.2, Total Bilirubin 0.4, Aspartate Amino Transf (AST/SGOT) 39H, Alanine Aminotransferase (ALT/SGPT) 13, Alkaline Phosphatase 67, C-Reactive Protein, Quantitative [Pending], Pro-B-Type Natriuretic Peptide > 84501R, Total Protein 8.9H, Albumin 2.7L, Globulin 6.2, Albumin/Globulin Ratio 0.4L, Random Vancomycin Level 15.6 Height (Feet): 5 Height (Inches): 6.00 Weight (Pounds): 150 General Appearance: no apparent distress Cardiovascular: normal rate Respiratory/Chest: decreased breath sounds Abdomen: soft Objective No change Jack Pryor MD Aug 12, 2020 10:51
--- NOTE | 2020-08-12 11:24 | Surgery Progress Note ---
Surgery Progress Note Subjective Symptoms: improved, pain absent, tolerating diet Objective Last 24 Hour Vital Signs Date Time Temp Pulse Resp B/P (MAP) Pulse Ox O2 Delivery O2 Flow Rate FiO2 08/12/20 09:01 75 158/83 08/12/20 09:00 Room Air 08/12/20 08:00 97.8 75 20 158/83 (108) 94 08/12/20 06:03 152/71 08/12/20 04:00 97.8 86 20 138/71 (93) 99 08/12/20 04:00 97.6 08/12/20 01:16 85 18 135/76 99 08/12/20 00:46 87 18 145/72 99 08/12/20 00:00 97.6 87 18 139/72 (94) 98 08/11/20 23:13 98.9 08/11/20 21:02 153/76 08/11/20 21:00 Room Air 08/11/20 20:00 98.9 85 18 142/76 (98) 97 08/11/20 16:00 98.4 83 18 131/79 (96) 96 08/11/20 12:00 97.5 83 17 136/81 (99) 97 I&O Intake and Output 08/11/20 08/12/20 19:00 07:00 Intake Total 400 ml 250 ml Output Total 2000 ml Balance -1600 ml 250 ml Intake Oral 400 ml 250 ml Hemodialysis UF 2000 ml # Voids 1 Cardiovascular: RSR Respiratory: clear Abdomen: soft, flat, non-tender, present bowel sounds, non-distended Extremities: no edema, no tenderness, no cyanosis Laboratory Tests Test 08/12/20 08:05 White Blood Count 3.3 K/UL (4.8-10.8) L Red Blood Count 3.89 M/UL (4.20-5.40) L Hemoglobin 11.4 G/DL (12.0-16.0) L Hematocrit 35.7 % (37.0-47.0) L Mean Corpuscular Volume 92 FL (80-99) Mean Corpuscular Hemoglobin 29.3 PG (27.0-31.0) Mean Corpuscular Hemoglobin Concent 31.9 G/DL (32.0-36.0) L Red Cell Distribution Width 17.8 % (11.6-14.8) H Platelet Count 144 K/UL (150-450) L Mean Platelet Volume 6.0 FL (6.5-10.1) L Neutrophils (%) (Auto) % (45.0-75.0) Lymphocytes (%) (Auto) % (20.0-45.0) Monocytes (%) (Auto) % (1.0-10.0) Eosinophils (%) (Auto) % (0.0-3.0) Basophils (%) (Auto) % (0.0-2.0) Differential Total Cells Counted 100 Neutrophils % (Manual) 61 % (45-75) Lymphocytes % (Manual) 31 % (20-45) Monocytes % (Manual) 6 % (1-10) Eosinophils % (Manual) 2 % (0-3) Basophils % (Manual) 0 % (0-2) Band Neutrophils 0 % (0-8) Platelet Estimate Decreased L Platelet Morphology Normal Anisocytosis 1+ Sodium Level 138 MMOL/L (136-145) Potassium Level 3.9 MMOL/L (3.5-5.1) Chloride Level 100 MMOL/L (98-107) Carbon Dioxide Level 29 MMOL/L (21-32) Anion Gap 9 mmol/L (5-15) Blood Urea Nitrogen 28 mg/dL (7-18) H Creatinine 7.0 MG/DL (0.55-1.30) H Estimat Glomerular Filtration Rate 7.2 mL/min (>60) Glucose Level 102 MG/DL (74-106) Calcium Level 7.7 MG/DL (8.5-10.1) L Phosphorus Level 4.8 MG/DL (2.5-4.9) Magnesium Level 2.2 MG/DL (1.8-2.4) Total Bilirubin 0.4 MG/DL (0.2-1.0) Aspartate Amino Transf (AST/SGOT) 39 U/L (15-37) H Alanine Aminotransferase (ALT/SGPT) 13 U/L (12-78) Alkaline Phosphatase 67 U/L (46-116) C-Reactive Protein, Quantitative Pending Pro-B-Type Natriuretic Peptide > 19180 pg/mL (0-125) H Total Protein 8.9 G/DL (6.4-8.2) H Albumin 2.7 G/DL (3.4-5.0) L Globulin 6.2 g/dL Albumin/Globulin Ratio 0.4 (1.0-2.7) L Random Vancomycin Level 15.6 ug/mL Plan Problems: (1) Hyperkalemia (2) CHF (congestive heart failure), NYHA class II (3) ESRD (end stage renal disease) on dialysis (4) Sick sinus syndrome (5) Fluid overload (6) Substance abuse (7) Cocaine abuse (8) Anxiety (9) Cirrhosis (10) Pruritus (11) Cholecystitis, acute (12) Weakness (13) Hypertension (14) HIV disease (15) Cyst of skin (16) Epileptic seizure, generalized (17) Open wound of chest wall (18) Adnexal mass (19) HCV antibody positive (20) Hypertensive urgency (21) Intractable abdominal pain (22) Recurrent vulvovaginal herpes simplex (23) Abdominal pain Assessment & Plan: This is a 70-year-old female well-known to me with recent episode of acute cholecystitis treated conservative management given her significant history who presents with abdominal pain generalized to all 4 out of 10 associated nausea currently no emesis passing flatus having diarrhea. Afebrile hemodynamically stable labs noted missed dialysis. Abdominal exam with mild discomfort no peritonitis. LFTs okay. Ultrasound reviewed. Unlikely acute cholecystitis can. Abdominal pain potentially diarrhea infectious etiology enteritis. Okay for diet. Dialysis as per nephrology. Electrolyte imbalance will improve. Will monitor and follow with serial exams. Hold on further radiology for now. May consider CT if not improving. Thank you for letting participate patient's care will follow with recommendations kub noted start oral diet diet as tolerated bowel function resumed improving resolved diet as tolerated d/c planning feels much better Liver: Subjective hepatomegaly. No intrahepatic bile duct dilation. Gallbladder: The gallbladder is distended measuring up to 4 cm in short axis. There are shadowing gallstones as well as gallbladder sludge. Negative for gallbladder wall thickening or pericholecystic fluid. Common bile duct: Negative for biliary ductal dilatation. No stones. Pancreas: Unremarkable as visualized. Kidneys: Limited imaging of both kidneys demonstrates bilateral renal atrophy and increased cortical echogenicity suggesting chronic medical renal disease. No stones. No hydronephrosis. Spleen: Splenomegaly with long axis of the spleen measuring up to 16 cm. Aorta: Unremarkable. No aneurysm. Inferior vena cava: Unremarkable. IMPRESSION: Hepatosplenomegaly and kidneys with appearance of chronic medical renal disease. Cholelithiasis without biliary ductal dilatation. Deon Crowe Aug 12, 2020 11:24
[2020-08-12 12:00] VITALS: BP 143/72
[2020-08-12] MEDS ORDERED: Vancomycin 750mg/NS 275ml IVPB SCH ×2 (12:00)
--- NOTE | 2020-08-12 13:31 | Infectious Diseases Prog Note ---
Assessment/Plan Assessment/Plan A; 1. Fever resolved 2. We would like to rule out line sepsis as a possibility. 3. HIV. 4. Renal failure, on dialysis. 5. Chronic pain syndrome. 6. Cholelithiasis, history of cholecystitis 7. Hepatosplenomegaly PLAN: 1. Continue IV vancomycin and Zosyn x 1 day Subjective ROS Limited/Unobtainable: Yes Constitutional: Reports: no symptoms Respiratory: Reports: no symptoms Gastrointestinal/Abdominal: Reports: no symptoms Genitourinary: Reports: no symptoms Allergies: Coded Allergies: ASPIRIN (Unverified Allergy, Unknown, 01/16/20) IODINE (Verified Allergy, Unknown, 01/07/20) Uncoded Allergies: CONTRAST DYE (Allergy, Unknown, 01/07/20) NSAID (Allergy, Unknown, 04/24/20) Objective Last 24 Hour Vital Signs Date Time Temp Pulse Resp B/P (MAP) Pulse Ox O2 Delivery O2 Flow Rate FiO2 08/12/20 12:00 97.6 70 20 143/72 (95) 94 08/12/20 09:01 75 158/83 08/12/20 09:00 Room Air 08/12/20 08:00 97.8 75 20 158/83 (108) 94 08/12/20 06:03 152/71 08/12/20 04:00 97.8 86 20 138/71 (93) 99 08/12/20 04:00 97.6 08/12/20 01:16 85 18 135/76 99 08/12/20 00:46 87 18 145/72 99 08/12/20 00:00 97.6 87 18 139/72 (94) 98 08/11/20 23:13 98.9 08/11/20 21:02 153/76 08/11/20 21:00 Room Air 08/11/20 20:00 98.9 85 18 142/76 (98) 97 08/11/20 16:00 98.4 83 18 131/79 (96) 96 Height (Feet): 5 Height (Inches): 6.00 Weight (Pounds): 150 General Appearance: no acute distress HEENT: mucous membranes moist Respiratory/Chest: lungs clear Cardiovascular: normal rate, other - HD line Extremities: no edema Neurologic/Psychiatric: alert, responsive Laboratory Tests Test 08/12/20 08:05 White Blood Count 3.3 K/UL (4.8-10.8) L Red Blood Count 3.89 M/UL (4.20-5.40) L Hemoglobin 11.4 G/DL (12.0-16.0) L Hematocrit 35.7 % (37.0-47.0) L Mean Corpuscular Volume 92 FL (80-99) Mean Corpuscular Hemoglobin 29.3 PG (27.0-31.0) Mean Corpuscular Hemoglobin Concent 31.9 G/DL (32.0-36.0) L Red Cell Distribution Width 17.8 % (11.6-14.8) H Platelet Count 144 K/UL (150-450) L Mean Platelet Volume 6.0 FL (6.5-10.1) L Neutrophils (%) (Auto) % (45.0-75.0) Lymphocytes (%) (Auto) % (20.0-45.0) Monocytes (%) (Auto) % (1.0-10.0) Eosinophils (%) (Auto) % (0.0-3.0) Basophils (%) (Auto) % (0.0-2.0) Differential Total Cells Counted 100 Neutrophils % (Manual) 61 % (45-75) Lymphocytes % (Manual) 31 % (20-45) Monocytes % (Manual) 6 % (1-10) Eosinophils % (Manual) 2 % (0-3) Basophils % (Manual) 0 % (0-2) Band Neutrophils 0 % (0-8) Platelet Estimate Decreased L Platelet Morphology Normal Anisocytosis 1+ Sodium Level 138 MMOL/L (136-145) Potassium Level 3.9 MMOL/L (3.5-5.1) Chloride Level 100 MMOL/L (98-107) Carbon Dioxide Level 29 MMOL/L (21-32) Anion Gap 9 mmol/L (5-15) Blood Urea Nitrogen 28 mg/dL (7-18) H Creatinine 7.0 MG/DL (0.55-1.30) H Estimat Glomerular Filtration Rate 7.2 mL/min (>60) Glucose Level 102 MG/DL (74-106) Calcium Level 7.7 MG/DL (8.5-10.1) L Phosphorus Level 4.8 MG/DL (2.5-4.9) Magnesium Level 2.2 MG/DL (1.8-2.4) Total Bilirubin 0.4 MG/DL (0.2-1.0) Aspartate Amino Transf (AST/SGOT) 39 U/L (15-37) H Alanine Aminotransferase (ALT/SGPT) 13 U/L (12-78) Alkaline Phosphatase 67 U/L (46-116) C-Reactive Protein, Quantitative Pending Pro-B-Type Natriuretic Peptide > 40349 pg/mL (0-125) H Total Protein 8.9 G/DL (6.4-8.2) H Albumin 2.7 G/DL (3.4-5.0) L Globulin 6.2 g/dL Albumin/Globulin Ratio 0.4 (1.0-2.7) L Random Vancomycin Level 15.6 ug/mL Current Medications Medications (Trade) Dose Ordered Sig/Rochelle Route PRN Reason Start Time Stop Time Status Last Admin Dose Admin Acetaminophen (Tylenol) 650 mg Q6H PRN ORAL FOR FEVER 08/07/20 21:45 09/06/20 21:44 08/07/20 23:35 Acetaminophen/ Hydrocodone Bitart ([place] 10/325) 1 tab DAILY PRN ORAL For Pain 08/06/20 22:45 08/13/20 22:44 08/09/20 05:36 Amlodipine Besylate (Norvasc) 10 mg DAILY ORAL 08/07/20 09:00 09/06/20 08:59 08/12/20 09:01 Chlorhexidine Gluconate (Mamie-Hex 2%) 1 applic DAILY@2000 TOPIC 08/09/20 20:00 11/05/20 19:59 08/11/20 21:02 Docusate Sodium (Colace) 100 mg TID ORAL 08/07/20 13:00 09/06/20 08:59 08/12/20 12:36 Escitalopram Oxalate (Lexapro) 10 mg DAILY ORAL 08/07/20 09:00 09/06/20 08:59 08/12/20 09:01 Heparin Sodium (Porcine) (Heparin 5000 units/ml) 5,000 units EVERY 12 HOURS SUBQ 08/07/20 09:00 09/21/20 08:59 08/11/20 21:03 Hydralazine HCl (Apresoline) 75 mg EVERY 8 HOURS ORAL 08/07/20 06:00 11/05/20 05:59 1/9/21 06:03 Hydroxyzine HCl (Atarax) 25 mg Q8HR ORAL 08/07/20 14:00 09/05/20 22:44 08/12/20 06:03 Levothyroxine Sodium (Synthroid) 75 mcg BEFORE BREAKFAST ORAL 08/12/20 06:30 09/06/20 06:29 08/12/20 06:03 Liothyronine Sodium (CytomeL) 5 mcg DAILY ORAL 08/09/20 09:00 09/08/20 08:59 08/12/20 09:01 Loperamide HCl (Imodium) 2 mg Q4H PRN ORAL Diarrhea 08/09/20 14:00 09/08/20 13:59 Lorazepam (Ativan) 1 mg TIDPRN PRN ORAL anxiety 08/07/20 12:58 08/14/20 12:57 08/12/20 00:46 Morphine Sulfate (Morphine Sulfate) 1 mg Q4H PRN IVP Severe Pain (Pain Scale 7-10) 08/06/20 22:45 08/13/20 22:44 08/12/20 09:03 Ondansetron HCl (Zofran) 4 mg Q6H PRN IVP Nausea & Vomiting 08/06/20 22:45 09/05/20 22:44 Pantoprazole (Protonix) 40 mg BID ORAL 08/07/20 09:00 09/06/20 08:59 08/12/20 09:01 Piperacillin Sod/ Tazobactam Sod 2.25 gm/Dextrose 55 ml @ 110 mls/hr Q8HR IV 08/11/20 22:00 08/18/20 21:59 08/12/20 06:03 Sevelamer Carbonate (Renvela) 2,400 mg THREE TIMES A DAY ORAL 08/07/20 13:00 11/05/20 12:59 08/12/20 12:37 Trazodone HCl (Desyrel) 50 mg BID ORAL 08/06/20 23:00 09/05/20 22:59 08/12/20 09:01 Vancomycin HCl (Vanco pharmacy to dose) 1 ea DAILY PRN MISC Per rx protocol 08/07/20 21:45 09/06/20 21:44 Vancomycin HCl 750 mg/Sodium Chloride 275 ml @ 183.333 mls/hr ONCE IVPB 08/12/20 12:00 08/12/20 15:00 08/12/20 12:36 Armando Brown MD Aug 12, 2020 13:31
[2020-08-12 16:00] VITALS: BP 150/74
--- NOTE | 2020-08-12 18:07 | Cardiology Progress Note ---
Subjective DATE OF SERVICE: Aug 12, 2020 No N/V/D. S/P HD/UF No new fever spikes. BP parameters improved, but suboptimal Remains on IV antimicrobials Objective Last 24 Hour Vital Signs Date Time Temp Pulse Resp B/P (MAP) Pulse Ox O2 Delivery O2 Flow Rate FiO2 08/12/20 16:00 97.4 77 20 150/74 (99) 94 08/12/20 13:49 149/69 08/12/20 12:00 97.6 70 20 143/72 (95) 94 08/12/20 09:01 75 158/83 08/12/20 09:00 Room Air 08/12/20 08:00 97.8 75 20 158/83 (108) 94 08/12/20 06:03 152/71 08/12/20 04:00 97.8 86 20 138/71 (93) 99 08/12/20 04:00 97.6 08/12/20 01:16 85 18 135/76 99 08/12/20 00:46 87 18 145/72 99 08/12/20 00:00 97.6 87 18 139/72 (94) 98 08/11/20 23:13 98.9 08/11/20 21:02 153/76 08/11/20 21:00 Room Air 08/11/20 20:00 98.9 85 18 142/76 (98) 97 ROS: unchanged RHYTHM: NSR, PACs LUNGS: lungs clear bilaterally CARDIAC: normal rate, regular rhythm, normal S1 and S2, gallop/S4 ABDOMEN: normal bowel sounds, soft, tender - Upper quads R>>L EXTREMITIES: non-tender, trace edema Laboratory Tests Test 08/12/20 08:05 White Blood Count 3.3 K/UL (4.8-10.8) L Red Blood Count 3.89 M/UL (4.20-5.40) L Hemoglobin 11.4 G/DL (12.0-16.0) L Hematocrit 35.7 % (37.0-47.0) L Mean Corpuscular Volume 92 FL (80-99) Mean Corpuscular Hemoglobin 29.3 PG (27.0-31.0) Mean Corpuscular Hemoglobin Concent 31.9 G/DL (32.0-36.0) L Red Cell Distribution Width 17.8 % (11.6-14.8) H Platelet Count 144 K/UL (150-450) L Mean Platelet Volume 6.0 FL (6.5-10.1) L Neutrophils (%) (Auto) % (45.0-75.0) Lymphocytes (%) (Auto) % (20.0-45.0) Monocytes (%) (Auto) % (1.0-10.0) Eosinophils (%) (Auto) % (0.0-3.0) Basophils (%) (Auto) % (0.0-2.0) Differential Total Cells Counted 100 Neutrophils % (Manual) 61 % (45-75) Lymphocytes % (Manual) 31 % (20-45) Monocytes % (Manual) 6 % (1-10) Eosinophils % (Manual) 2 % (0-3) Basophils % (Manual) 0 % (0-2) Band Neutrophils 0 % (0-8) Platelet Estimate Decreased L Platelet Morphology Normal Anisocytosis 1+ Sodium Level 138 MMOL/L (136-145) Potassium Level 3.9 MMOL/L (3.5-5.1) Chloride Level 100 MMOL/L (98-107) Carbon Dioxide Level 29 MMOL/L (21-32) Anion Gap 9 mmol/L (5-15) Blood Urea Nitrogen 28 mg/dL (7-18) H Creatinine 7.0 MG/DL (0.55-1.30) H Estimat Glomerular Filtration Rate 7.2 mL/min (>60) Glucose Level 102 MG/DL (74-106) Calcium Level 7.7 MG/DL (8.5-10.1) L Phosphorus Level 4.8 MG/DL (2.5-4.9) Magnesium Level 2.2 MG/DL (1.8-2.4) Total Bilirubin 0.4 MG/DL (0.2-1.0) Aspartate Amino Transf (AST/SGOT) 39 U/L (15-37) H Alanine Aminotransferase (ALT/SGPT) 13 U/L (12-78) Alkaline Phosphatase 67 U/L (46-116) C-Reactive Protein, Quantitative Pending Pro-B-Type Natriuretic Peptide > 40125 pg/mL (0-125) H Total Protein 8.9 G/DL (6.4-8.2) H Albumin 2.7 G/DL (3.4-5.0) L Globulin 6.2 g/dL Albumin/Globulin Ratio 0.4 (1.0-2.7) L Random Vancomycin Level 15.6 ug/mL Assessment/Plan Assessment/Plan Missed dialysis prior to admit Low likelihood for acute/subacute cholecystitis HyperKalemia corrected with HD Possible infectious colitis ESRD hypertension/HHD Conduction system dis Paroxysmal SVT Ac/chronic diastolic CHF HIV+ Hep C + HD/UF Abx per ID Titrate antiHTN meds - hydralazine advanced Avoid all drugs with negative chronotropic potential; patient has refused pacemaker in past. Nam Barnett MD Aug 12, 2020 18:07
--- NOTE | 2020-08-12 19:00 | NUR ---
NURSE HAND-OFF: Important Events on Shift:IV ATB. HD tomorrow. Pain management Patient Status: stable Diet: renal soft easy chew Pending Orders: n/q Pending Results/Labs:n/a Pending MD notification:n/a Latest Vital Signs: Temperature 97.4 , Pulse 77 , B/P 150 /74 , Respiratory Rate 20 , O2 SAT 94 , Room Air, O2 Flow Rate . Vital Sign Comment: stable, HTN, change of hydralize from 75mg to 100mg Q8hrs Latest Espinoza Fall Score: 60 Fall Risk: High Risk Safety Measures: Call light Within Reach, Bed Alarm Zone 1, Side Rails Side Rails x2, Bed position Low and Locked. Fall Precautions: Yellow Gown Door Sign Patient Fall Education Report given to MARTIN Camargo.
[2020-08-12] MEDS: Dyna-Hex 2% Top Sol 2oz TOPIC SCH (19:53)
[2020-08-12 20:00] VITALS: BP 152/81
--- NOTE | 2020-08-12 20:00 | NUR ---
NURSE NOTES: Patient received in bed,asleep, no acute distress. IV intact. Call light in reach. Will monitor.
[2020-08-12] MEDS: HydrALAZINE 50mg tab ORAL SCH (21:02)
[2020-08-13] VITALS: BP 150/79
[2020-08-13] MEDS: Morphine Sulfate 2mg/ml Inj(IV/IM USE ONLY) IVP PRN ×6 (00:59→22:30)
--- NOTE | 2020-08-13 01:40 | NUR ---
NURSE NOTES: Patient voided and had BM. Bed bath given and linens changed. Dressing changed on sacrum and right buttock.
[2020-08-13 04:03] VITALS: BP 154/86
[2020-08-13] MEDS: HydrALAZINE 50mg tab ORAL SCH ×3 (05:54→21:24)
[2020-08-13] MEDS: HydrOXYzine tab 25mg tab ORAL SCH ×3 (05:54→21:24)
[2020-08-13] MEDS: Zosyn 2.25 gm in D5W 55ml IV SCH ×3 (05:54→21:25)
--- NOTE | 2020-08-13 07:12 | NUR ---
NURSE HAND-OFF: Important Events on Shift:[pain management, had BM, dressing change, requesting for PT] Patient Status: [stable] Diet: [Renal soft easy chew] Pending Orders: [] Pending Results/Labs:[] Pending MD notification:[] Latest Vital Signs: Temperature 97.5 , Pulse 74 , B/P 154 /86 , Respiratory Rate 17 , O2 SAT 92 , Room Air, O2 Flow Rate . Vital Sign Comment: [] Latest Espinoza Fall Score: 50 Fall Risk: High Risk Safety Measures: Call light Within Reach, Bed Alarm Zone 1, Side Rails Side Rails x2, Bed position Low and Locked. Fall Precautions: Yellow Gown Door Sign Patient Fall Education Report given to [Magdiel Allen RN].
--- NOTE | 2020-08-13 07:30 | NUR ---
NURSE NOTES: Received report from Regine SALAZAR. Patient awake in bed eating breakfast, no acute distress noted. On room air,no SOB noted. Patient complaining of sore throat, Dr. Manuel is aware. Seizure precautions in place. Bed in lowest position, call light in reach, bed alarm on, side rails up. Addendum: 08/13/20 at 1212 by Meme Chaney RN Dr. Peralta aware not
[2020-08-13 08:00] VITALS: BP 156/85
--- NOTE | 2020-08-13 08:25 | General Progress Note ---
Subjective ROS Limited/Unobtainable: No Constitutional: Reports: malaise, weakness HEENT: Reports: no symptoms Cardiovascular: Reports: no symptoms Respiratory: Reports: cough Gastrointestinal/Abdominal: Reports: no symptoms Genitourinary: Reports: no symptoms Neurologic/Psychiatric: Reports: no symptoms Endocrine: Reports: no symptoms Hematologic/Lymphatic: Reports: no symptoms Allergies: Coded Allergies: ASPIRIN (Unverified Allergy, Unknown, 01/16/20) IODINE (Verified Allergy, Unknown, 01/07/20) Uncoded Allergies: CONTRAST DYE (Allergy, Unknown, 01/07/20) NSAID (Allergy, Unknown, 04/24/20) All Systems: reviewed and negative except above Subjective requesting higher does of pain meds. no fevers. no sob. no cough. ID noted. 1 more day abx needed Objective Last 24 Hour Vital Signs Date Time Temp Pulse Resp B/P (MAP) Pulse Ox O2 Delivery O2 Flow Rate FiO2 08/13/20 05:54 154/86 08/13/20 04:03 97.5 74 17 154/86 (108) 92 08/13/20 00:00 99.0 73 18 150/79 (102) 93 08/12/20 21:48 78 17 150/77 93 08/12/20 21:02 152/80 08/12/20 21:00 Room Air 08/12/20 20:00 98.1 80 17 152/81 (104) 93 08/12/20 16:00 97.4 77 20 150/74 (99) 94 08/12/20 13:49 149/69 08/12/20 12:00 97.6 70 20 143/72 (95) 94 08/12/20 09:01 75 158/83 08/12/20 09:00 Room Air Intake and Output 08/12/20 08/13/20 19:00 07:00 Intake Total 590 ml 455 ml Balance 590 ml 455 ml Intake Oral 480 ml IV Total 110 ml 55 ml Other 400 ml # Voids 2 1 # Bowel Movements 1 1 Height (Feet): 5 Height (Inches): 6.00 Weight (Pounds): 150 Objective General Appearance: WD/WN, alert EENT: normal ENT inspection Neck: normal alignment, supple Cardiovascular: normal peripheral pulses, normal rate, regular rhythm Respiratory/Chest: chest wall non-tender, lungs clear, normal breath sounds, no respiratory distress, no accessory muscle use Abdomen: normal bowel sounds, non tender, soft, no organomegaly, no mass Edema: no edema noted Leg (L), no edema noted Leg (R) Edema: trace edema 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, alert, responsive Assessment/Plan Problem List: (1) Abdominal pain ICD Codes: R10.9 - Unspecified abdominal pain SNOMED: 24137276 (2) Epileptic seizure, generalized ICD Codes: G40.309 - Generalized idiopathic epilepsy and epileptic syndromes, not intractable, without status epilepticus SNOMED: 63083576 (3) Hypertension ICD Codes: I10 - Essential (primary) hypertension SNOMED: 76875408 (4) Anxiety ICD Codes: F41.9 - Anxiety disorder, unspecified SNOMED: 72711138 (5) Cocaine abuse ICD Codes: F14.10 - Cocaine abuse, uncomplicated SNOMED: 58456346 (6) Cirrhosis ICD Codes: K74.60 - Unspecified cirrhosis of liver SNOMED: 93880611 (7) CHF (congestive heart failure), NYHA class II ICD Codes: I50.9 - Heart failure, unspecified SNOMED: 920006504, 608003821 (8) ESRD (end stage renal disease) on dialysis ICD Codes: N18.6 - End stage renal disease; Z99.2 - Dependence on renal dialysis SNOMED: 288325541 (9) Sick sinus syndrome ICD Codes: I49.5 - Sick sinus syndrome SNOMED: 10995222 Status: stable Assessment/Plan: stable cont current rx iv abx per id follow up cultures. negative so far ID eval appreciated. 1 more day iv abx HD per renal pain rx as needed. try to avoid iv monitor hr dc planning tomorrow Michael Peralta MD Aug 13, 2020 08:25
[2020-08-13] MEDS: TraZODone 50mg tab ORAL SCH ×2 (09:00→17:24)
[2020-08-13] MEDS: Liothyronine 5mcg tab ORAL SCH (09:00)
[2020-08-13] MEDS: Docusate 100mg cap ORAL SCH ×3 (09:00→17:27)
[2020-08-13] MEDS: Heparin 5000 units/ml inj SUBQ SCH ×2 (09:00→20:34)
[2020-08-13] MEDS: LORazepam 1mg tab ORAL PRN ×2 (09:01→21:56)
[2020-08-13 09:27] LABS: CREATININE 8.1 MG/DL (0.55-1.30); POTASSIUM 4.2 MMOL/L (3.5-5.1)
[2020-08-13 09:39] LABS: BASOPHILS % (AUTO) 1.1 % (0.0-2.0); EOSINOPHILS % (AUTO) 6.9 % (0.0-3.0); HEMATOCRIT 32.8 % (37.0-47.0); HEMOGLOBIN 10.5 G/DL (12.0-16.0); LYMPHOCYTES % (AUTO) 25.6 % (20.0-45.0); MEAN CORPUSCULAR VOLUME 91 FL (80-99); MONOCYTES % (AUTO) 8.8 % (1.0-10.0); NEUTROPHILS % (AUTO) 57.5 % (45.0-75.0); PLATELET COUNT 131 K/UL (150-450); RED BLOOD COUNT 3.59 M/UL (4.20-5.40); RED CELL DISTRIBUTION WIDTH 18.7 % (11.6-14.8); WHITE BLOOD COUNT 3.5 K/UL (4.8-10.8)
[2020-08-13 12:00] VITALS: BP 185/95
--- NOTE | 2020-08-13 13:58 | Surgery Progress Note ---
Surgery Progress Note Subjective Symptoms: improved, tolerating diet, passing flatus, pain decreased Additional Comments HD today Objective Last 24 Hour Vital Signs Date Time Temp Pulse Resp B/P (MAP) Pulse Ox O2 Delivery O2 Flow Rate FiO2 08/13/20 13:00 185/95 08/13/20 12:00 98.1 75 19 185/95 (125) 96 08/13/20 10:32 98.2 08/13/20 09:01 76 18 156/85 93 08/13/20 09:00 76 156/85 08/13/20 08:00 98.2 76 18 156/85 (108) 93 08/13/20 05:54 154/86 08/13/20 04:03 97.5 74 17 154/86 (108) 92 08/13/20 00:00 99.0 73 18 150/79 (102) 93 08/12/20 21:48 78 17 150/77 93 08/12/20 21:02 152/80 08/12/20 21:00 Room Air 08/12/20 20:00 98.1 80 17 152/81 (104) 93 08/12/20 16:00 97.4 77 20 150/74 (99) 94 I&O Intake and Output 08/12/20 08/13/20 19:00 07:00 Intake Total 590 ml 455 ml Balance 590 ml 455 ml Intake Oral 480 ml IV Total 110 ml 55 ml Other 400 ml # Voids 2 1 # Bowel Movements 1 1 Dressing: dry Wound: clean Cardiovascular: RSR Respiratory: clear Abdomen: soft, non-tender, present bowel sounds, non-distended Extremities: no edema, no tenderness, no cyanosis Laboratory Tests Test 08/13/20 08:45 White Blood Count 3.5 K/UL (4.8-10.8) L Red Blood Count 3.59 M/UL (4.20-5.40) L Hemoglobin 10.5 G/DL (12.0-16.0) L Hematocrit 32.8 % (37.0-47.0) L Mean Corpuscular Volume 91 FL (80-99) Mean Corpuscular Hemoglobin 29.3 PG (27.0-31.0) Mean Corpuscular Hemoglobin Concent 32.1 G/DL (32.0-36.0) Red Cell Distribution Width 18.7 % (11.6-14.8) H Platelet Count 131 K/UL (150-450) L Mean Platelet Volume 6.4 FL (6.5-10.1) L Neutrophils (%) (Auto) 57.5 % (45.0-75.0) Lymphocytes (%) (Auto) 25.6 % (20.0-45.0) Monocytes (%) (Auto) 8.8 % (1.0-10.0) Eosinophils (%) (Auto) 6.9 % (0.0-3.0) H Basophils (%) (Auto) 1.1 % (0.0-2.0) Sodium Level 135 MMOL/L (136-145) L Potassium Level 4.2 MMOL/L (3.5-5.1) Chloride Level 98 MMOL/L (98-107) Carbon Dioxide Level 28 MMOL/L (21-32) Anion Gap 9 mmol/L (5-15) Blood Urea Nitrogen 37 mg/dL (7-18) H Creatinine 8.1 MG/DL (0.55-1.30) H Estimat Glomerular Filtration Rate 5.9 mL/min (>60) Glucose Level 138 MG/DL (74-106) H Calcium Level 8.0 MG/DL (8.5-10.1) L Plan Problems: (1) Hyperkalemia (2) CHF (congestive heart failure), NYHA class II (3) ESRD (end stage renal disease) on dialysis (4) Sick sinus syndrome (5) Fluid overload (6) Substance abuse (7) Cocaine abuse (8) Anxiety (9) Cirrhosis (10) Pruritus (11) Cholecystitis, acute (12) Weakness (13) Hypertension (14) HIV disease (15) Cyst of skin (16) Epileptic seizure, generalized (17) Open wound of chest wall (18) Adnexal mass (19) HCV antibody positive (20) Hypertensive urgency (21) Intractable abdominal pain (22) Recurrent vulvovaginal herpes simplex (23) Abdominal pain Assessment & Plan: This is a 70-year-old female well-known to me with recent episode of acute cholecystitis treated conservative management given her significant history who presents with abdominal pain generalized to all 4 out of 10 associated nausea currently no emesis passing flatus having diarrhea. Afebrile hemodynamically stable labs noted missed dialysis. Abdominal exam with mild discomfort no peritonitis. LFTs okay. Ultrasound reviewed. Unlikely acute cholecystitis can. Abdominal pain potentially diarrhea infectious etiology enteritis. Okay for diet. Dialysis as per nephrology. Electrolyte imbalance will improve. Will monitor and follow with serial exams. Hold on further radiology for now. May consider CT if not improving. Thank you for letting participate patient's care will follow with recommendations kub noted start oral diet diet as tolerated bowel function resumed improving resolved diet as tolerated d/c planning feels much better Liver: Subjective hepatomegaly. No intrahepatic bile duct dilation. Gallbladder: The gallbladder is distended measuring up to 4 cm in short axis. There are shadowing gallstones as well as gallbladder sludge. Negative for gallbladder wall thickening or pericholecystic fluid. Common bile duct: Negative for biliary ductal dilatation. No stones. Pancreas: Unremarkable as visualized. Kidneys: Limited imaging of both kidneys demonstrates bilateral renal atrophy and increased cortical echogenicity suggesting chronic medical renal disease. No stones. No hydronephrosis. Spleen: Splenomegaly with long axis of the spleen measuring up to 16 cm. Aorta: Unremarkable. No aneurysm. Inferior vena cava: Unremarkable. IMPRESSION: Hepatosplenomegaly and kidneys with appearance of chronic medical renal disease. Cholelithiasis without biliary ductal dilatation. Deon Crowe Aug 13, 2020 13:58
--- NOTE | 2020-08-13 14:12 | NUR ---
NURSE NOTES: Patient blood pressure 185/95 during dyalisis. Hydralazine 100mg PO given and blood pressure decreased to 156/80.
[2020-08-13 16:00] VITALS: BP 156/77
--- NOTE | 2020-08-13 16:16 | Nephrology Progress Note ---
Assessment/Plan Problem List: (1) Hyperkalemia (2) ESRD (end stage renal disease) on dialysis (3) Substance abuse (4) HCV antibody positive (5) Intractable abdominal pain (6) HIV disease (7) Hypertensive kidney disease Assessment End-stage renal disease on hemodialysis Presents with hyperkalemia History of substance abuse, cocaine Fluid overload HIV disease Hepatitis C virus antibody positive Hypertensive kidney disease Noncompliance with diet and dialysis Anemia of chronic kidney disease Plan August 13: Dialyzed today. Continue per consultants. Was continue dialysis Friday. Blood pressure stable. Labs reviewed. August 12: Dialyzed yesterday. Will dialyze tomorrow. Labs and medication list reviewed. Continue per PMD. August 11: Due for dialysis today. Medication list reviewed. Patient remains clinically stable. Continue per PMD. August 10: Dialyzed yesterday. Blood pressure is stable. Medication list reviewed. Will order dialysis tomorrow. August 09: Patient about to be started on dialysis. Blood pressure is stable. Continue current management. August 08: Labs reviewed. High potassium normalized. Patient was dialyzed yesterday. Due for dialysis tomorrow. Will start Cytomel 5 mg for low T3 Previously: Patient currently on dialysis against low potassium bath Ultrafiltration Keep the blood pressure in check Continue per PMD Per orders Subjective ROS Limited/Unobtainable: No Constitutional: Reports: malaise Objective Objective Last 24 Hour Vital Signs Date Time Temp Pulse Resp B/P (MAP) Pulse Ox O2 Delivery O2 Flow Rate FiO2 08/13/20 13:00 185/95 08/13/20 12:00 98.1 75 19 185/95 (125) 96 08/13/20 10:32 98.2 08/13/20 09:01 76 18 156/85 93 08/13/20 09:00 76 156/85 08/13/20 09:00 Room Air 08/13/20 08:00 98.2 76 18 156/85 (108) 93 08/13/20 05:54 154/86 08/13/20 04:03 97.5 74 17 154/86 (108) 92 08/13/20 00:00 99.0 73 18 150/79 (102) 93 08/12/20 21:48 78 17 150/77 93 08/12/20 21:02 152/80 08/12/20 21:00 Room Air 08/12/20 20:00 98.1 80 17 152/81 (104) 93 Intake and Output 08/12/20 08/13/20 19:00 07:00 Intake Total 590 ml 455 ml Balance 590 ml 455 ml Intake Oral 480 ml IV Total 110 ml 55 ml Other 400 ml # Voids 2 1 # Bowel Movements 1 1 Current Medications Medications (Trade) Dose Ordered Sig/Rochelle Route PRN Reason Start Time Stop Time Status Last Admin Dose Admin Acetaminophen (Tylenol) 650 mg Q6H PRN ORAL FOR FEVER 08/07/20 21:45 09/06/20 21:44 08/07/20 23:35 Acetaminophen/ Hydrocodone Bitart ([place] 10/325) 1 tab DAILY PRN ORAL For Pain 08/06/20 22:45 08/13/20 22:44 08/09/20 05:36 Amlodipine Besylate (Norvasc) 10 mg DAILY ORAL 08/07/20 09:00 09/06/20 08:59 08/12/20 09:01 Chlorhexidine Gluconate (Mamie-Hex 2%) 1 applic DAILY@1999 TOPIC 08/09/20 20:00 11/05/20 19:59 08/12/20 19:53 Docusate Sodium (Colace) 100 mg TID ORAL 08/07/20 13:00 09/06/20 08:59 08/13/20 13:12 Escitalopram Oxalate (Lexapro) 10 mg DAILY ORAL 08/07/20 09:00 09/06/20 08:59 08/13/20 09:00 Heparin Sodium (Porcine) (Heparin 5000 units/ml) 5,000 units EVERY 12 HOURS SUBQ 08/07/20 09:00 09/21/20 08:59 08/11/20 21:03 Hydralazine HCl (Apresoline) 100 mg EVERY 8 HOURS ORAL 08/12/20 22:00 11/10/20 21:59 08/13/20 13:00 Hydroxyzine HCl (Atarax) 25 mg Q8HR ORAL 08/07/20 14:00 09/05/20 22:44 08/13/20 14:00 Levothyroxine Sodium (Synthroid) 75 mcg BEFORE BREAKFAST ORAL 08/12/20 06:30 09/06/20 06:29 08/13/20 05:54 Liothyronine Sodium (CytomeL) 5 mcg DAILY ORAL 08/09/20 09:00 09/08/20 08:59 08/13/20 09:00 Loperamide HCl (Imodium) 2 mg Q4H PRN ORAL Diarrhea 08/09/20 14:00 09/08/20 13:59 Lorazepam (Ativan) 1 mg TIDPRN PRN ORAL anxiety 08/07/20 12:58 08/14/20 12:57 08/13/20 09:01 Morphine Sulfate (Morphine Sulfate) 1 mg Q4H PRN IVP Severe Pain (Pain Scale 7-10) 08/13/20 14:00 08/20/20 13:59 08/13/20 14:19 Ondansetron HCl (Zofran) 4 mg Q6H PRN IVP Nausea & Vomiting 08/06/20 22:45 09/05/20 22:44 Pantoprazole (Protonix) 40 mg BID ORAL 08/07/20 09:00 09/06/20 08:59 08/13/20 09:00 Piperacillin Sod/ Tazobactam Sod 2.25 gm/Dextrose 55 ml @ 110 mls/hr Q8HR IV 08/11/20 22:00 08/18/20 21:59 08/13/20 13:38 Sevelamer Carbonate (Renvela) 2,400 mg THREE TIMES A DAY ORAL 08/07/20 13:00 11/05/20 12:59 08/13/20 13:12 Trazodone HCl (Desyrel) 50 mg BID ORAL 08/06/20 23:00 09/05/20 22:59 08/12/20 17:24 Vancomycin HCl ([facility] pharmacy to dose) 1 ea DAILY PRN MISC Per rx protocol 08/07/20 21:45 09/06/20 21:44 Laboratory Tests 08/13/20 08:45: White Blood Count 3.5L, Red Blood Count 3.59L, Hemoglobin 10.5L, Hematocrit 32.8L, Mean Corpuscular Volume 91, Mean Corpuscular Hemoglobin 29.3, Mean Corpuscular Hemoglobin Concent 32.1, Red Cell Distribution Width 18.7H, Platelet Count 131L, Mean Platelet Volume 6.4L, Neutrophils (%) (Auto) 57.5, Lymphocytes (%) (Auto) 25.6, Monocytes (%) (Auto) 8.8, Eosinophils (%) (Auto) 6.9H, Basophils (%) (Auto) 1.1, Sodium Level 135L, Potassium Level 4.2, Chloride Level 98, Carbon Dioxide Level 28, Anion Gap 9, Blood Urea Nitrogen 37H, Creatinine 8.1H, Estimat Glomerular Filtration Rate 5.9, Glucose Level 138H, Calcium Level 8.0L Height (Feet): 5 Height (Inches): 6.00 Weight (Pounds): 150 General Appearance: no apparent distress Cardiovascular: normal rate Respiratory/Chest: decreased breath sounds Abdomen: soft Objective No change Jack Pryor MD Aug 13, 2020 16:16
--- NOTE | 2020-08-13 18:55 | NUR ---
NURSE HAND-OFF: Important Events on Shift:[Dialysis today 2L] Patient Status: [stable] Diet: [renal diet] Pending Orders: [] Pending Results/Labs:[] Pending MD notification:[] Latest Vital Signs: Temperature 99.4 , Pulse 73 , B/P 156 /77 , Respiratory Rate 18 , O2 SAT 94 , Room Air, O2 Flow Rate . Vital Sign Comment: [] Latest Espinoza Fall Score: 50 Fall Risk: High Risk Safety Measures: Call light Within Reach, Bed Alarm Zone 1, Side Rails Side Rails x3, Bed position Low and Locked. Fall Precautions: Yellow Socks Patient Fall Education Report given to [Xyrece].
[2020-08-13 20:00] VITALS: BP 173/89
--- NOTE | 2020-08-13 20:00 | NUR ---
NURSE NOTES: Patient awake and alert in bed, no acute distress, call light in reach. Will continue to monitor.
[2020-08-13] MEDS: Dyna-Hex 2% Top Sol 2oz TOPIC SCH (21:25)
--- NOTE | 2020-08-13 23:35 | Cardiology Progress Note ---
Subjective DATE OF SERVICE: Aug 13, 2020 No N/V/D. S/P HD/UF No new fever spikes. BP parameters improved, but suboptimal Remains on IV antimicrobials Objective Last 24 Hour Vital Signs Date Time Temp Pulse Resp B/P (MAP) Pulse Ox O2 Delivery O2 Flow Rate FiO2 08/13/20 21:56 72 20 169/79 94 08/13/20 21:24 173/89 08/13/20 21:00 Room Air 08/13/20 20:00 98.6 72 20 173/89 (117) 94 08/13/20 19:06 99.4 08/13/20 16:00 99.4 73 18 156/77 (103) 94 08/13/20 13:00 185/95 08/13/20 12:00 98.1 75 19 185/95 (125) 96 08/13/20 10:32 98.2 08/13/20 09:01 76 18 156/85 93 08/13/20 09:00 76 156/85 08/13/20 09:00 Room Air 08/13/20 08:00 98.2 76 18 156/85 (108) 93 08/13/20 05:54 154/86 08/13/20 04:03 97.5 74 17 154/86 (108) 92 08/13/20 00:00 99.0 73 18 150/79 (102) 93 ROS: unchanged RHYTHM: NSR, PACs LUNGS: lungs clear bilaterally CARDIAC: normal rate, regular rhythm, normal S1 and S2, gallop/S4 ABDOMEN: normal bowel sounds, soft, tender - Upper quads R>>L EXTREMITIES: non-tender, trace edema Laboratory Tests Test 08/13/20 08:45 White Blood Count 3.5 K/UL (4.8-10.8) L Red Blood Count 3.59 M/UL (4.20-5.40) L Hemoglobin 10.5 G/DL (12.0-16.0) L Hematocrit 32.8 % (37.0-47.0) L Mean Corpuscular Volume 91 FL (80-99) Mean Corpuscular Hemoglobin 29.3 PG (27.0-31.0) Mean Corpuscular Hemoglobin Concent 32.1 G/DL (32.0-36.0) Red Cell Distribution Width 18.7 % (11.6-14.8) H Platelet Count 131 K/UL (150-450) L Mean Platelet Volume 6.4 FL (6.5-10.1) L Neutrophils (%) (Auto) 57.5 % (45.0-75.0) Lymphocytes (%) (Auto) 25.6 % (20.0-45.0) Monocytes (%) (Auto) 8.8 % (1.0-10.0) Eosinophils (%) (Auto) 6.9 % (0.0-3.0) H Basophils (%) (Auto) 1.1 % (0.0-2.0) Sodium Level 135 MMOL/L (136-145) L Potassium Level 4.2 MMOL/L (3.5-5.1) Chloride Level 98 MMOL/L (98-107) Carbon Dioxide Level 28 MMOL/L (21-32) Anion Gap 9 mmol/L (5-15) Blood Urea Nitrogen 37 mg/dL (7-18) H Creatinine 8.1 MG/DL (0.55-1.30) H Estimat Glomerular Filtration Rate 5.9 mL/min (>60) Glucose Level 138 MG/DL (74-106) H Calcium Level 8.0 MG/DL (8.5-10.1) L Assessment/Plan Assessment/Plan Missed dialysis prior to admit Low likelihood for acute/subacute cholecystitis HyperKalemia corrected with HD Possible infectious colitis ESRD hypertension/HHD Conduction system dis Paroxysmal SVT Ac/chronic diastolic CHF HIV+ Hep C + Hydrocodone dependence HD/UF Abx per ID Titrate antiHTN meds - hydralazine advanced yesterday Avoid all drugs with negative chronotropic potential; patient has refused pacemaker in past. Limits set on pain meds. Nam Barnett MD Aug 13, 2020 23:35
[2020-08-14] VITALS: BP 176/98
--- NOTE | 2020-08-14 00:06 | NUR ---
NURSE NOTES: Call placed to Dr. Barnett's re: patient's elevated BP. Awaiting response.
[2020-08-14] MEDS: Morphine Sulfate 2mg/ml Inj(IV/IM USE ONLY) IVP PRN ×3 (02:30→10:56)
[2020-08-14] MEDS: LORazepam 1mg tab ORAL PRN (03:40)
[2020-08-14 05:00] VITALS: BP 173/97
[2020-08-14] MEDS: HydrOXYzine tab 25mg tab ORAL SCH (05:24)
[2020-08-14] MEDS: HydrALAZINE 50mg tab ORAL SCH (05:24)
[2020-08-14] MEDS: Zosyn 2.25 gm in D5W 55ml IV SCH (05:26)
[2020-08-14 07:30] LABS: HEMATOCRIT 35.1 % (37.0-47.0); HEMOGLOBIN 10.6 G/DL (12.0-16.0); MEAN CORPUSCULAR VOLUME 95 FL (80-99); PLATELET COUNT 115 K/UL (150-450); RED BLOOD COUNT 3.68 M/UL (4.20-5.40); RED CELL DISTRIBUTION WIDTH 17.4 % (11.6-14.8); WHITE BLOOD COUNT 3.4 K/UL (4.8-10.8)
[2020-08-14 07:53] LABS: ALBUMIN 2.7 G/DL (3.4-5.0); ALBUMIN/GLOBULIN RATIO 0.4 (1.0-2.7); BILIRUBIN,TOTAL 0.3 MG/DL (0.2-1.0); CALCIUM 8.4 MG/DL (8.5-10.1); CREATININE 6.2 MG/DL (0.55-1.30); POTASSIUM 4.1 MMOL/L (3.5-5.1)
--- NOTE | 2020-08-14 07:54 | NUR ---
NURSE HAND-OFF: Important Events on Shift:[elevated BP, new order clonidine, anxious unable to sleep] Patient Status: [stable] Diet: [Renal Soft easy chew] Pending Orders: [discharge planning] Pending Results/Labs:[see labs] Pending MD notification:[] Latest Vital Signs: Temperature 98.9 , Pulse 74 , B/P 173 /94 , Respiratory Rate 20 , O2 SAT 94 , Room Air, O2 Flow Rate . Vital Sign Comment: [elevated BP] Latest Espinoza Fall Score: 50 Fall Risk: High Risk Safety Measures: Call light Within Reach, Bed Alarm Zone 1, Side Rails Side Rails x2, Bed position Low and Locked. Fall Precautions: Yellow Gown Door Sign Patient Fall Education Report given to [Anayeli RAZO RN].
--- NOTE | 2020-08-14 08:00 | NUR ---
NURSE NOTES: Patient alert and oriented x4, breathing even and unlabored, responsive to verbal and tactile stimuli. Patient reported that she is sleepy due to lack of sleep last night. Bed in lowest and locked position, bed alarm on, call light within reach.
[2020-08-14] MEDS: TraZODone 50mg tab ORAL SCH (08:35)
[2020-08-14] MEDS: Liothyronine 5mcg tab ORAL SCH (08:36)
[2020-08-14] MEDS: Docusate 100mg cap ORAL SCH ×2 (08:36→13:00)
[2020-08-14] MEDS: Heparin 5000 units/ml inj SUBQ SCH (08:37)
[2020-08-14 09:00] VITALS: BP 144/86
--- NOTE | 2020-08-14 10:00 | NUR ---
PT NOTE Received MD order for PT evaluation. Attempted to see patient for PT, BP 179/90, HR 68. PT evaluation deferred due to elevated BP, Mariana SALAZAR notified. Will re-attempt later as schedule permits.
--- NOTE | 2020-08-14 10:00 | Discharge Summary ---
DATE OF ADMISSION: 08/06/2020 DATE OF DISCHARGE: 08/14/2020 ADMISSION DIAGNOSES: 1. Abdominal pain, possible cholecystitis. 2. End-stage renal disease. 3. History of HIV. 4. Hypertension. 5. Conduction system disease. DISCHARGE DIAGNOSES: 1. Abdominal pain, possible cholecystitis. 2. End-stage renal disease. 3. History of HIV. 4. Hypertension. 5. Conduction system disease. HOSPITAL COURSE: The patient is a 70-year-old female who was admitted with complaints of abdominal pain. She had a prior history of cholecystitis and gallstones. She was admitted. She was seen by surgery, felt to be cholecystitis. She did have a fever. Her cultures were negative. The patient did receive a week of IV antibiotic therapy and remained stable after receiving antibiotics. On discharge, she was stable. Abdominal pain resolved. She had no further fevers. She completed all antibiotic therapy while in-house. She will be discharged home with close outpatient followup. DISCHARGE MEDICATIONS: Please see discharge medication list for discharge medications. DIET: Renal and cardiac diet. ACTIVITY: Ad-arie. FOLLOWUP: The patient to followup in one to two weeks in the office. Michael Peralta M.D. DR: Yasmeen JOB#: [id number] CC:
--- NOTE | 2020-08-14 11:04 | NUR ---
NURSE NOTES: Wasted morphine 0.5mL and Yao witnessed.
--- NOTE | 2020-08-14 11:17 | Cardiology Progress Note ---
Subjective DATE OF SERVICE: Aug 14, 2020 No N/V/D. No new fever spikes. BP parameters elevated again; patient anxious about discharge. Completed IV antimicrobials Objective Last 24 Hour Vital Signs Date Time Temp Pulse Resp B/P (MAP) Pulse Ox O2 Delivery O2 Flow Rate FiO2 08/14/20 09:53 75 144/86 08/14/20 09:00 97.7 75 20 144/86 (105) 93 08/14/20 09:00 Room Air 08/14/20 05:24 173/94 08/14/20 05:24 173/94 08/14/20 05:00 98.9 74 20 173/97 (122) 94 08/14/20 03:40 78 20 160/74 94 08/14/20 00:23 176/98 08/14/20 00:00 98.6 74 20 176/98 (124) 94 08/13/20 21:56 72 20 169/79 94 08/13/20 21:24 173/89 08/13/20 21:00 Room Air 08/13/20 20:00 98.6 72 20 173/89 (117) 94 08/13/20 19:06 99.4 08/13/20 16:00 99.4 73 18 156/77 (103) 94 08/13/20 13:00 185/95 08/13/20 12:00 98.1 75 19 185/95 (125) 96 ROS: unchanged RHYTHM: NSR, PACs LUNGS: lungs clear bilaterally CARDIAC: normal rate, regular rhythm, normal S1 and S2, gallop/S4 ABDOMEN: normal bowel sounds, soft, tender - Upper quads R>>L EXTREMITIES: non-tender, trace edema Laboratory Tests Test 08/14/20 05:20 White Blood Count 3.4 K/UL (4.8-10.8) L Red Blood Count 3.68 M/UL (4.20-5.40) L Hemoglobin 10.6 G/DL (12.0-16.0) L Hematocrit 35.1 % (37.0-47.0) L Mean Corpuscular Volume 95 FL (80-99) Mean Corpuscular Hemoglobin 28.7 PG (27.0-31.0) Mean Corpuscular Hemoglobin Concent 30.1 G/DL (32.0-36.0) L Red Cell Distribution Width 17.4 % (11.6-14.8) H Platelet Count 115 K/UL (150-450) L Mean Platelet Volume 6.8 FL (6.5-10.1) Neutrophils (%) (Auto) % (45.0-75.0) Lymphocytes (%) (Auto) % (20.0-45.0) Monocytes (%) (Auto) % (1.0-10.0) Eosinophils (%) (Auto) % (0.0-3.0) Basophils (%) (Auto) % (0.0-2.0) Differential Total Cells Counted 100 Neutrophils % (Manual) 62 % (45-75) Lymphocytes % (Manual) 27 % (20-45) Monocytes % (Manual) 7 % (1-10) Eosinophils % (Manual) 4 % (0-3) H Basophils % (Manual) 0 % (0-2) Band Neutrophils 0 % (0-8) Platelet Estimate Decreased L Platelet Morphology Normal Hypochromasia 1+ Anisocytosis 1+ Sodium Level 138 MMOL/L (136-145) Potassium Level 4.1 MMOL/L (3.5-5.1) Chloride Level 100 MMOL/L (98-107) Carbon Dioxide Level 32 MMOL/L (21-32) Anion Gap 6 mmol/L (5-15) Blood Urea Nitrogen 31 mg/dL (7-18) H Creatinine 6.2 MG/DL (0.55-1.30) H Estimat Glomerular Filtration Rate 8.1 mL/min (>60) Glucose Level 88 MG/DL (74-106) Calcium Level 8.4 MG/DL (8.5-10.1) L Total Bilirubin 0.3 MG/DL (0.2-1.0) Aspartate Amino Transf (AST/SGOT) 32 U/L (15-37) Alanine Aminotransferase (ALT/SGPT) 7 U/L (12-78) L Alkaline Phosphatase 66 U/L (46-116) Total Protein 8.9 G/DL (6.4-8.2) H Albumin 2.7 G/DL (3.4-5.0) L Globulin 6.2 g/dL Albumin/Globulin Ratio 0.4 (1.0-2.7) L Assessment/Plan Assessment/Plan Missed dialysis prior to admit Low likelihood for acute/subacute cholecystitis HyperKalemia corrected with HD Possible infectious colitis ESRD hypertension/HHD with labile BP Conduction system dis Paroxysmal SVT Ac/chronic diastolic CHF HIV+ Hep C + Hydrocodone dependence HD/UF per outpatient schedule Titrate antiHTN meds as outpatient, with clonidine available prn basis. Avoid all drugs with negative chronotropic potential; patient has refused pacemaker in past. Limits set on pain meds. Outpatient follow up. Nam Barnett MD Aug 14, 2020 11:17
--- NOTE | 2020-08-14 11:58 | Infectious Diseases Prog Note ---
Assessment/Plan Assessment/Plan antibiotics : zosyn A 1. Fevers improving 2. HIV. 3. Renal failure, on dialysis. 4. Chronic pain syndrome. P 1. d/c Zosyn. 2. observe off antibiotics Subjective ROS Limited/Unobtainable: Yes Allergies: Coded Allergies: ASPIRIN (Unverified Allergy, Unknown, 01/16/20) IODINE (Verified Allergy, Unknown, 01/07/20) Uncoded Allergies: CONTRAST DYE (Allergy, Unknown, 01/07/20) NSAID (Allergy, Unknown, 04/24/20) Objective Last 24 Hour Vital Signs Date Time Temp Pulse Resp B/P (MAP) Pulse Ox O2 Delivery O2 Flow Rate FiO2 08/14/20 11:26 97.7 08/14/20 09:53 75 144/86 08/14/20 09:00 97.7 75 20 144/86 (105) 93 08/14/20 09:00 Room Air 08/14/20 05:24 173/94 08/14/20 05:24 173/94 08/14/20 05:00 98.9 74 20 173/97 (122) 94 08/14/20 03:40 78 20 160/74 94 08/14/20 00:23 176/98 08/14/20 00:00 98.6 74 20 176/98 (124) 94 08/13/20 21:56 72 20 169/79 94 08/13/20 21:24 173/89 08/13/20 21:00 Room Air 08/13/20 20:00 98.6 72 20 173/89 (117) 94 08/13/20 19:06 99.4 08/13/20 16:00 99.4 73 18 156/77 (103) 94 08/13/20 13:00 185/95 08/13/20 12:00 98.1 75 19 185/95 (125) 96 Height (Feet): 5 Height (Inches): 6.00 Weight (Pounds): 150 Respiratory/Chest: lungs clear Cardiovascular: normal rate, regular rhythm, no gallop/murmur Abdomen: soft, non tender Extremities: no edema Laboratory Tests Test 08/14/20 05:20 White Blood Count 3.4 K/UL (4.8-10.8) L Red Blood Count 3.68 M/UL (4.20-5.40) L Hemoglobin 10.6 G/DL (12.0-16.0) L Hematocrit 35.1 % (37.0-47.0) L Mean Corpuscular Volume 95 FL (80-99) Mean Corpuscular Hemoglobin 28.7 PG (27.0-31.0) Mean Corpuscular Hemoglobin Concent 30.1 G/DL (32.0-36.0) L Red Cell Distribution Width 17.4 % (11.6-14.8) H Platelet Count 115 K/UL (150-450) L Mean Platelet Volume 6.8 FL (6.5-10.1) Neutrophils (%) (Auto) % (45.0-75.0) Lymphocytes (%) (Auto) % (20.0-45.0) Monocytes (%) (Auto) % (1.0-10.0) Eosinophils (%) (Auto) % (0.0-3.0) Basophils (%) (Auto) % (0.0-2.0) Differential Total Cells Counted 100 Neutrophils % (Manual) 62 % (45-75) Lymphocytes % (Manual) 27 % (20-45) Monocytes % (Manual) 7 % (1-10) Eosinophils % (Manual) 4 % (0-3) H Basophils % (Manual) 0 % (0-2) Band Neutrophils 0 % (0-8) Platelet Estimate Decreased L Platelet Morphology Normal Hypochromasia 1+ Anisocytosis 1+ Sodium Level 138 MMOL/L (136-145) Potassium Level 4.1 MMOL/L (3.5-5.1) Chloride Level 100 MMOL/L (98-107) Carbon Dioxide Level 32 MMOL/L (21-32) Anion Gap 6 mmol/L (5-15) Blood Urea Nitrogen 31 mg/dL (7-18) H Creatinine 6.2 MG/DL (0.55-1.30) H Estimat Glomerular Filtration Rate 8.1 mL/min (>60) Glucose Level 88 MG/DL (74-106) Calcium Level 8.4 MG/DL (8.5-10.1) L Total Bilirubin 0.3 MG/DL (0.2-1.0) Aspartate Amino Transf (AST/SGOT) 32 U/L (15-37) Alanine Aminotransferase (ALT/SGPT) 7 U/L (12-78) L Alkaline Phosphatase 66 U/L (46-116) Total Protein 8.9 G/DL (6.4-8.2) H Albumin 2.7 G/DL (3.4-5.0) L Globulin 6.2 g/dL Albumin/Globulin Ratio 0.4 (1.0-2.7) L Current Medications Medications (Trade) Dose Ordered Sig/Rochelle Route PRN Reason Start Time Stop Time Status Last Admin Dose Admin Acetaminophen (Tylenol) 650 mg Q6H PRN ORAL FOR FEVER 08/07/20 21:45 09/06/20 21:44 08/07/20 23:35 Amlodipine Besylate (Norvasc) 10 mg DAILY ORAL 08/07/20 09:00 09/06/20 08:59 08/14/20 09:53 Chlorhexidine Gluconate (Mamie-Hex 2%) 1 applic DAILY@2000 TOPIC 08/09/20 20:00 11/05/20 19:59 08/13/20 21:25 Clonidine HCl (Catapres Tab) 0.1 mg Q4H PRN ORAL SBP above 160 08/14/20 00:15 11/12/20 00:14 08/14/20 05:24 Docusate Sodium (Colace) 100 mg TID ORAL 08/07/20 13:00 09/06/20 08:59 08/14/20 08:36 Escitalopram Oxalate (Lexapro) 10 mg DAILY ORAL 08/07/20 09:00 09/06/20 08:59 08/14/20 08:36 Heparin Sodium (Porcine) (Heparin 5000 units/ml) 5,000 units EVERY 12 HOURS SUBQ 08/07/20 09:00 09/21/20 08:59 08/11/20 21:03 Hydralazine HCl (Apresoline) 100 mg EVERY 8 HOURS ORAL 08/12/20 22:00 11/10/20 21:59 08/14/20 05:24 Hydroxyzine HCl (Atarax) 25 mg Q8HR ORAL 08/07/20 14:00 09/05/20 22:44 08/14/20 05:24 Levothyroxine Sodium (Synthroid) 75 mcg BEFORE BREAKFAST ORAL 08/12/20 06:30 09/06/20 06:29 08/14/20 06:22 Liothyronine Sodium (CytomeL) 5 mcg DAILY ORAL 08/09/20 09:00 09/08/20 08:59 08/14/20 08:36 Loperamide HCl (Imodium) 2 mg Q4H PRN ORAL Diarrhea 08/09/20 14:00 09/08/20 13:59 Lorazepam (Ativan) 1 mg TIDPRN PRN ORAL anxiety 08/07/20 12:58 08/14/20 12:57 08/14/20 03:40 Morphine Sulfate (Morphine Sulfate) 1 mg Q4H PRN IVP Severe Pain (Pain Scale 7-10) 08/13/20 14:00 08/20/20 13:59 08/14/20 10:56 Ondansetron HCl (Zofran) 4 mg Q6H PRN IVP Nausea & Vomiting 08/06/20 22:45 09/05/20 22:44 Pantoprazole (Protonix) 40 mg BID ORAL 08/07/20 09:00 09/06/20 08:59 08/14/20 08:36 Piperacillin Sod/ Tazobactam Sod 2.25 gm/Dextrose 55 ml @ 110 mls/hr Q8HR IV 08/11/20 22:00 08/18/20 21:59 08/14/20 05:26 Sevelamer Carbonate (Renvela) 2,400 mg THREE TIMES A DAY ORAL 08/07/20 13:00 11/05/20 12:59 08/14/20 08:36 Trazodone HCl (Desyrel) 50 mg BID ORAL 08/06/20 23:00 09/05/20 22:59 08/14/20 08:35 Vancomycin HCl (Vanco pharmacy to dose) 1 ea DAILY PRN MISC Per rx protocol 08/07/20 21:45 09/06/20 21:44 Elvis Garibay MD Aug 14, 2020 11:58
[2020-08-14 12:00] VITALS: BP 137/81
--- NOTE | 2020-08-14 12:57 | Nephrology Progress Note ---
Assessment/Plan Problem List: (1) Hyperkalemia (2) ESRD (end stage renal disease) on dialysis (3) Substance abuse (4) HCV antibody positive (5) Intractable abdominal pain (6) HIV disease (7) Hypertensive kidney disease Assessment End-stage renal disease on hemodialysis Presents with hyperkalemia History of substance abuse, cocaine Fluid overload HIV disease Hepatitis C virus antibody positive Hypertensive kidney disease Noncompliance with diet and dialysis Anemia of chronic kidney disease Plan August 14: Dialyzed yesterday. Due for dialysis tomorrow. Labs reviewed. Medication list reviewed. Stable from renal standpoint of view. August 13: Dialyzed today. Continue per consultants. Was continue dialysis Friday. Blood pressure stable. Labs reviewed. August 12: Dialyzed yesterday. Will dialyze tomorrow. Labs and medication list reviewed. Continue per PMD. August 11: Due for dialysis today. Medication list reviewed. Patient remains clinically stable. Continue per PMD. August 10: Dialyzed yesterday. Blood pressure is stable. Medication list reviewed. Will order dialysis tomorrow. August 09: Patient about to be started on dialysis. Blood pressure is stable. Continue current management. August 08: Labs reviewed. High potassium normalized. Patient was dialyzed yesterday. Due for dialysis tomorrow. Will start Cytomel 5 mg for low T3 Previously: Patient currently on dialysis against low potassium bath Ultrafiltration Keep the blood pressure in check Continue per PMD Per orders Subjective ROS Limited/Unobtainable: No Constitutional: Reports: malaise, weakness Objective Objective Last 24 Hour Vital Signs Date Time Temp Pulse Resp B/P (MAP) Pulse Ox O2 Delivery O2 Flow Rate FiO2 08/14/20 11:26 97.7 08/14/20 09:53 75 144/86 08/14/20 09:00 97.7 75 20 144/86 (105) 93 08/14/20 09:00 Room Air 08/14/20 05:24 173/94 08/14/20 05:24 173/94 08/14/20 05:00 98.9 74 20 173/97 (122) 94 08/14/20 03:40 78 20 160/74 94 08/14/20 00:23 176/98 08/14/20 00:00 98.6 74 20 176/98 (124) 94 08/13/20 21:56 72 20 169/79 94 08/13/20 21:24 173/89 08/13/20 21:00 Room Air 08/13/20 20:00 98.6 72 20 173/89 (117) 94 08/13/20 19:06 99.4 08/13/20 16:00 99.4 73 18 156/77 (103) 94 08/13/20 13:00 185/95 Intake and Output 08/13/20 08/14/20 19:00 07:00 Intake Total 950 ml Output Total 2000 ml 150 ml Balance -2000 ml 800 ml Intake Oral 840 ml IV Total 110 ml Output Urine Total 150 ml Hemodialysis UF 2000 ml # Voids 1 # Bowel Movements 1 3 Current Medications Medications (Trade) Dose Ordered Sig/Rochelle Route PRN Reason Start Time Stop Time Status Last Admin Dose Admin Acetaminophen (Tylenol) 650 mg Q6H PRN ORAL FOR FEVER 08/07/20 21:45 09/06/20 21:44 08/07/20 23:35 Amlodipine Besylate (Norvasc) 10 mg DAILY ORAL 08/07/20 09:00 09/06/20 08:59 08/14/20 09:53 Chlorhexidine Gluconate (Mamie-Hex 2%) 1 applic DAILY@2000 TOPIC 08/09/20 20:00 11/05/20 19:59 08/13/20 21:25 Clonidine HCl (Catapres Tab) 0.1 mg Q4H PRN ORAL SBP above 160 08/14/20 00:15 11/12/20 00:14 08/14/20 05:24 Docusate Sodium (Colace) 100 mg TID ORAL 08/07/20 13:00 09/06/20 08:59 08/14/20 08:36 Escitalopram Oxalate (Lexapro) 10 mg DAILY ORAL 08/07/20 09:00 09/06/20 08:59 08/14/20 08:36 Heparin Sodium (Porcine) (Heparin 5000 units/ml) 5,000 units EVERY 12 HOURS SUBQ 08/07/20 09:00 09/21/20 08:59 08/11/20 21:03 Hydralazine HCl (Apresoline) 100 mg EVERY 8 HOURS ORAL 08/12/20 22:00 11/10/20 21:59 08/14/20 05:24 Hydroxyzine HCl (Atarax) 25 mg Q8HR ORAL 08/07/20 14:00 09/05/20 22:44 08/14/20 05:24 Levothyroxine Sodium (Synthroid) 75 mcg BEFORE BREAKFAST ORAL 08/12/20 06:30 09/06/20 06:29 08/14/20 06:22 Liothyronine Sodium (CytomeL) 5 mcg DAILY ORAL 08/09/20 09:00 09/08/20 08:59 08/14/20 08:36 Loperamide HCl (Imodium) 2 mg Q4H PRN ORAL Diarrhea 08/09/20 14:00 09/08/20 13:59 Lorazepam (Ativan) 1 mg TIDPRN PRN ORAL anxiety 08/07/20 12:58 08/14/20 12:57 08/14/20 03:40 Morphine Sulfate (Morphine Sulfate) 1 mg Q4H PRN IVP Severe Pain (Pain Scale 7-10) 08/13/20 14:00 08/20/20 13:59 08/14/20 10:56 Ondansetron HCl (Zofran) 4 mg Q6H PRN IVP Nausea & Vomiting 08/06/20 22:45 09/05/20 22:44 Pantoprazole (Protonix) 40 mg BID ORAL 08/07/20 09:00 09/06/20 08:59 08/14/20 08:36 Sevelamer Carbonate (Renvela) 2,400 mg THREE TIMES A DAY ORAL 08/07/20 13:00 11/05/20 12:59 08/14/20 08:36 Trazodone HCl (Desyrel) 50 mg BID ORAL 08/06/20 23:00 09/05/20 22:59 08/14/20 08:35 Laboratory Tests 08/14/20 05:20: White Blood Count 3.4L, Red Blood Count 3.68L, Hemoglobin 10.6L, Hematocrit 35.1L, Mean Corpuscular Volume 95, Mean Corpuscular Hemoglobin 28.7, Mean Corpuscular Hemoglobin Concent 30.1L, Red Cell Distribution Width 17.4H, Platelet Count 115L, Mean Platelet Volume 6.8, Neutrophils (%) (Auto) , Lymphocytes (%) (Auto) , Monocytes (%) (Auto) , Eosinophils (%) (Auto) , Basophils (%) (Auto) , Differential Total Cells Counted 100, Neutrophils % (Manual) 62, Lymphocytes % (Manual) 27, Monocytes % (Manual) 7, Eosinophils % (Manual) 4H, Basophils % (Manual) 0, Band Neutrophils 0, Platelet Estimate DecreasedL, Platelet Morphology Normal, Hypochromasia 1+, Anisocytosis 1+, So dium Level 138, Potassium Level 4.1, Chloride Level 100, Carbon Dioxide Level 32, Anion Gap 6, Blood Urea Nitrogen 31H, Creatinine 6.2H, Estimat Glomerular Filtration Rate 8.1, Glucose Level 88, Calcium Level 8.4L, Total Bilirubin 0.3, Aspartate Amino Transf (AST/SGOT) 32, Alanine Aminotransferase (ALT/SGPT) 7L, Alkaline Phosphatase 66, Total Protein 8.9H, Albumin 2.7L, Globulin 6.2, Albumin/Globulin Ratio 0.4L Height (Feet): 5 Height (Inches): 6.00 Weight (Pounds): 150 General Appearance: no apparent distress Cardiovascular: normal rate Respiratory/Chest: decreased breath sounds Abdomen: distended Objective No change Jack Pryor MD Aug 14, 2020 12:56
--- NOTE | 2020-08-14 13:30 | NUR ---
NURSE NOTES: Ambulance arrived at this time. Patient alert and oriented x4, breathing even and unlabored, able to verbalize needs well. Blood pressure elevated 173/90, will administer PRN clonidine.
[2020-08-14 13:49] VITALS: BP 173/90
--- NOTE | 2020-08-14 13:49 | NUR ---
NURSE NOTES: All patient belongings accounted for in front of patient for verification. Patient signed patient belongings list, discharge instructions, patient education was given and signature sheet signed by patient. Patient was alert and and orientedx4 throughout the shift. Patient aware that dialysis is to be done tomorrow and patient stated that appointment was already made. 20g IV on left upper arm removed and tape and gauze was placed. Ambulance here to escort patient home.
--- NOTE | 2020-08-14 13:55 | NUR ---
NURSE NOTES: Patient discharged via ambulance without any incidence noted.
--- NOTE | 2020-08-14 19:14 | Surgery Progress Note ---
Surgery Progress Note Subjective Symptoms: improved, pain absent, tolerating diet, passing flatus, BM Objective Last 24 Hour Vital Signs Date Time Temp Pulse Resp B/P (MAP) Pulse Ox O2 Delivery O2 Flow Rate FiO2 08/14/20 13:49 173/90 08/14/20 12:00 98.1 79 19 137/81 (99) 93 08/14/20 11:26 97.7 08/14/20 09:53 75 144/86 08/14/20 09:00 97.7 75 20 144/86 (105) 93 08/14/20 09:00 Room Air 08/14/20 05:24 173/94 08/14/20 05:24 173/94 08/14/20 05:00 98.9 74 20 173/97 (122) 94 08/14/20 03:40 78 20 160/74 94 08/14/20 00:23 176/98 08/14/20 00:00 98.6 74 20 176/98 (124) 94 08/13/20 21:56 72 20 169/79 94 08/13/20 21:24 173/89 08/13/20 21:00 Room Air 08/13/20 20:00 98.6 72 20 173/89 (117) 94 I&O Intake and Output 08/13/20 08/14/20 19:00 07:00 Intake Total 950 ml Output Total 2000 ml 150 ml Balance -2000 ml 800 ml Intake Oral 840 ml IV Total 110 ml Output Urine Total 150 ml Hemodialysis UF 2000 ml # Voids 1 # Bowel Movements 1 3 Cardiovascular: RSR Respiratory: clear Abdomen: soft, non-tender, present bowel sounds, non-distended Extremities: no edema, no tenderness, no cyanosis Laboratory Tests Test 08/14/20 05:20 White Blood Count 3.4 K/UL (4.8-10.8) L Red Blood Count 3.68 M/UL (4.20-5.40) L Hemoglobin 10.6 G/DL (12.0-16.0) L Hematocrit 35.1 % (37.0-47.0) L Mean Corpuscular Volume 95 FL (80-99) Mean Corpuscular Hemoglobin 28.7 PG (27.0-31.0) Mean Corpuscular Hemoglobin Concent 30.1 G/DL (32.0-36.0) L Red Cell Distribution Width 17.4 % (11.6-14.8) H Platelet Count 115 K/UL (150-450) L Mean Platelet Volume 6.8 FL (6.5-10.1) Neutrophils (%) (Auto) % (45.0-75.0) Lymphocytes (%) (Auto) % (20.0-45.0) Monocytes (%) (Auto) % (1.0-10.0) Eosinophils (%) (Auto) % (0.0-3.0) Basophils (%) (Auto) % (0.0-2.0) Differential Total Cells Counted 100 Neutrophils % (Manual) 62 % (45-75) Lymphocytes % (Manual) 27 % (20-45) Monocytes % (Manual) 7 % (1-10) Eosinophils % (Manual) 4 % (0-3) H Basophils % (Manual) 0 % (0-2) Band Neutrophils 0 % (0-8) Platelet Estimate Decreased L Platelet Morphology Normal Hypochromasia 1+ Anisocytosis 1+ Sodium Level 138 MMOL/L (136-145) Potassium Level 4.1 MMOL/L (3.5-5.1) Chloride Level 100 MMOL/L (98-107) Carbon Dioxide Level 32 MMOL/L (21-32) Anion Gap 6 mmol/L (5-15) Blood Urea Nitrogen 31 mg/dL (7-18) H Creatinine 6.2 MG/DL (0.55-1.30) H Estimat Glomerular Filtration Rate 8.1 mL/min (>60) Glucose Level 88 MG/DL (74-106) Calcium Level 8.4 MG/DL (8.5-10.1) L Total Bilirubin 0.3 MG/DL (0.2-1.0) Aspartate Amino Transf (AST/SGOT) 32 U/L (15-37) Alanine Aminotransferase (ALT/SGPT) 7 U/L (12-78) L Alkaline Phosphatase 66 U/L (46-116) Total Protein 8.9 G/DL (6.4-8.2) H Albumin 2.7 G/DL (3.4-5.0) L Globulin 6.2 g/dL Albumin/Globulin Ratio 0.4 (1.0-2.7) L Plan Problems: (1) Hyperkalemia (2) CHF (congestive heart failure), NYHA class II (3) ESRD (end stage renal disease) on dialysis (4) Sick sinus syndrome (5) Fluid overload (6) Substance abuse (7) Cocaine abuse (8) Anxiety (9) Cirrhosis (10) Pruritus (11) Cholecystitis, acute (12) Weakness (13) Hypertension (14) HIV disease (15) Cyst of skin (16) Epileptic seizure, generalized (17) Open wound of chest wall (18) Adnexal mass (19) HCV antibody positive (20) Hypertensive urgency (21) Intractable abdominal pain (22) Recurrent vulvovaginal herpes simplex (23) Abdominal pain Assessment & Plan: This is a 70-year-old female well-known to me with recent episode of acute cholecystitis treated conservative management given her significant history who presents with abdominal pain generalized to all 4 out of 10 associated nausea currently no emesis passing flatus having diarrhea. Afebrile hemodynamically stable labs noted missed dialysis. Abdominal exam with mild discomfort no peritonitis. LFTs okay. Ultrasound reviewed. Unlikely acute cholecystitis can. Abdominal pain potentially diarrhea infectious etiology enteritis. Okay for diet. Dialysis as per nephrology. Electrolyte imbalance will improve. Will monitor and follow with serial exams. Hold on further radiology for now. May consider CT if not improving. Thank you for letting participate patient's care will follow with recommendations kub noted start oral diet diet as tolerated bowel function resumed improving resolved diet as tolerated d/c planning feels much better Liver: Subjective hepatomegaly. No intrahepatic bile duct dilation. Gallbladder: The gallbladder is distended measuring up to 4 cm in short axis. There are shadowing gallstones as well as gallbladder sludge. Negative for gallbladder wall thickening or pericholecystic fluid. Common bile duct: Negative for biliary ductal dilatation. No stones. Pancreas: Unremarkable as visualized. Kidneys: Limited imaging of both kidneys demonstrates bilateral renal atrophy and increased cortical echogenicity suggesting chronic medical renal disease. No stones. No hydronephrosis. Spleen: Splenomegaly with long axis of the spleen measuring up to 16 cm. Aorta: Unremarkable. No aneurysm. Inferior vena cava: Unremarkable. IMPRESSION: Hepatosplenomegaly and kidneys with appearance of chronic medical renal disease. Cholelithiasis without biliary ductal dilatation. Additional Comments late entry states much better wants to go ready for d/c Deon Crowe Aug 14, 2020 19:13
== END 2020-08-14 13:55 | disposition home or self-care (01) | DRG 640 ==
LOC: EMR 20:56 → 2E 22:05 → EDBEDREQ 22:24 → 4E 08-11 06:41
PROC: 5A1D70Z Performance of Urinary Filtration, Intermittent, Less than 6 Hours Per Day (ICD-10-PCS; principal; 2020-08-07)
PROC: 30233N1 Transfusion of Nonautologous Red Blood Cells into Peripheral Vein, Percutaneous Approach (ICD-10-PCS; 2020-08-09)
DX: E87.5 Hyperkalemia (principal); N18.6 End stage renal disease; I50.33 Acute on chronic diastolic (congestive) heart failure; I13.2 Hypertensive heart and chronic kidney disease with heart failure and with stage 5 chronic kidney disease, or end stage renal disease; I47.2 Ventricular tachycardia; Z91.15 Patient's noncompliance with renal dialysis; I50.9 Heart failure, unspecified; Z88.6 Allergy status to analgesic agent; Z91.041 Radiographic dye allergy status; M79.7 Fibromyalgia; K81.9 Cholecystitis, unspecified; Z91.14 Patient's other noncompliance with medication regimen; Z99.2 Dependence on renal dialysis; J44.9 Chronic obstructive pulmonary disease, unspecified; Z86.19 Personal history of other infectious and parasitic diseases; F14.11 Cocaine abuse, in remission; E87.70 Fluid overload, unspecified; D63.1 Anemia in chronic kidney disease; G40.309 Generalized idiopathic epilepsy and epileptic syndromes, not intractable, without status epilepticus; F41.9 Anxiety disorder, unspecified; K74.60 Unspecified cirrhosis of liver; I49.5 Sick sinus syndrome; G89.4 Chronic pain syndrome; R16.2 Hepatomegaly with splenomegaly, not elsewhere classified; A60.04 Herpesviral vulvovaginitis
CPT/HCPCS: 36415; 71045; 74018; 76700; 80048; 80053; 80061; 80202; 82977; 83036; 83690; 83735; 83880; 84100; 84439; 84443; 84481; 84484; 85007; 85025; 86140; 86706; 87040; 93005; 96374; 96375; 99291; U0002

== ENCOUNTER 2020-09-20 13:12 | Inpatient (IN) | payer MEDICARE, MEDICAID ==
[~2020-09-20] VITALS: Ht 162.6 cm; Wt 77.1 kg
[2020-09-20 14:00] LABS: BASOPHILS % (AUTO) 1.6 % (0.0-2.0); EOSINOPHILS % (AUTO) 12.5 % (0.0-3.0); HEMATOCRIT 31.9 % (37.0-47.0); HEMOGLOBIN 9.6 G/DL (12.0-16.0); LYMPHOCYTES % (AUTO) 26.5 % (20.0-45.0); MEAN CORPUSCULAR VOLUME 90 FL (80-99); MONOCYTES % (AUTO) 10.3 % (1.0-10.0); PLATELET COUNT 205 K/UL (150-450); RED BLOOD COUNT 3.54 M/UL (4.20-5.40); WHITE BLOOD COUNT 3.6 K/UL (4.8-10.8)
[2020-09-20] MEDS ORDERED: Morphine Sulfate 4mg/ml Inj (IV USE ONLY) IVP ONE ×2 (14:00→14:30)
[2020-09-20 14:12] LABS: INR 1.2 (0.9-1.1)
--- NOTE | 2020-09-20 14:20 | Emergency Room Report ---
History of Present Illness General Chief Complaint: Dyspnea/Respdistress Source: Patient, Medical Record Present Illness HPI Patient presents via ambulance after missing for dialysis sessions with dyspnea. Patient with end-stage renal disease on dialysis. Patient has a history of n oncompliance as well as cocaine abuse. She is complaining about lower back pain. She denies any fevers or chills. The patient says "I am very stupid". The patient rarely makes urine. She denies any dysuria. She has orthopnea and dyspnea on exertion. She states that she has a mildly productive cough with some beige phlegm. There is no hemoptysis. The back pain is rated 10/10, aching and somewhat sharp and nonradiating. Patient denies exposure to Covid positive contacts. No sore throat, chest pain, palpitations, nausea, vomiting, diarrhea, abdominal pain, rashes, visual changes, dizziness, headache. The patient was admitted early August of this year. Discharge diagnoses: 1. Abdominal pain, possible cholecystitis. 2. End-stage renal disease. 3. History of HIV. 4. Hypertension. 5. Conduction system disease. 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 COVID-19 Screening: Negative COVID-19 COVID-19 Testing Source: 1 week ago Patient History Past Medical History: see triage record, old chart reviewed, DM, HIV, renal disease Past Surgical History: other - Vas-Cath Social History: Reports: smoking, drug use - In the past Social History Narrative Disabled Nursing Documentation-PM Past Medical History: No History, Except For Hx Cardiac Problems: No - HIV, HEP C Hx Hypertension: Yes Hx Diabetes: Yes - Blood sugar currently within normal limits Hx Cancer: No Hx Gastrointestinal Problems: Yes - intractable abd pain Hx Dialysis: Yes - T TH S Hx Neurological Problems: No Hx Seizures: No - denies Hx Epilepsy: No Hx Weakness: Yes Hx Fatigue: Yes Hx Neurologic Surgery: No Hx Brain Shunt: No Review of Systems All Other Systems: negative except mentioned in HPI Physical Exam Vital Signs Date Time Temp Pulse Resp B/P (MAP) Pulse Ox O2 Delivery O2 Flow Rate FiO2 09/20/20 13:21 98.8 80 17 145/77 (99) 73 Room Air Sp02 EP Interpretation: reviewed, abnormal - Interpreted as low by me General Appearance: mild distress, Chronically Ill Eyes: bilateral eye normal inspection, bilateral eye PERRL, bilateral eye EOMI ENT: dry mucus membranes - Poor dentition Neck: normal inspection, full range of motion Respiratory: chest non-tender, rales Cardiovascular #1: normal peripheral pulses, regular rate, rhythm Cardiovascular #2: 2+ radial (L) Gastrointestinal: non tender, soft, decreased bowel sounds Genitourinary: no CVA tenderness Musculoskeletal: moves extm spontaneously, tender - Lumbar area Neurologic: oriented x3, grossly normal Psychiatric: depressed affect Skin: Decubitus/Ulcer - Sacrum stage II, warm/dry Procedures Critical Care Time Critical Care Time Total Critical Care Time: 35 min bedside evaluation and treatment excludes procedures (EKG). Reason for critical care: Hypoxia, hyperkalemia, repeat evaluations Possible complications: hypotension, hypertension, OH, shock, arrhythmias, metabolic acidosis, end organ damage, respiratory failure. Interventions:Titration of oxygen, treatment of hyperkalemia, repeat eval uations, contact admitting physician, analgesia Course: Patient presents with hypoxia after missed dialysis. Immediate work to titrate oxygen and working with respiratory therapy with discussions. Treatment of pain with morphine and Zofran. Lab with elevated potassium. Treated with calcium gluconate and Kayexalate. Patient with normal CO2 and unable to give sodium bicarbonate. As there are no peaked T waves holding on giving insulin and D50. Repeat analgesia given. Contact admitting physician. Consultations: nursing staff, EMS, respiratory therapy Performed by: Dr. Still Tolerated well condition = serious Medical Decision Making Diagnostic Impression: Primary Impression: Hypoxia Additional Impressions: ESRD (end stage renal disease) on dialysis Hyperkalemia Pulmonary edema Qualified Codes: J81.0 - Acute pulmonary edema Non-compliance ER Course Patient presents with missing 4 episodes of dialysis with dyspnea and hypoxia. Differential includes pulmonary edema, fluid overload, pulmonary embolus, pneumonia, COVID-19, acute myocardial infarction, electrolyte imbalance amongst others. Patient evaluated EKG, chest x-ray and labs. Patient treated with morphine and Nitro-Bid. Patient placed on a monitor tech. EKG without acute injury. Chest x-ray pulmonary edema with Vas-Cath. Labs with hyperkalemia. End-stage renal disease. Elevated BNP. Troponin negative. Covid antigen test negative. Repeat analgesia. Elevated potassium treated with calcium gluconate and Kayexalate. Patient improved with less dyspnea. Titration of oxygen by registered dietetic technician along with my direction. Contact admitting physician for admission. Laboratory Tests Test 09/20/20 13:37 09/20/20 13:44 09/20/20 14:00 Sodium Level 139 MMOL/L (136-145) Potassium Level 6.9 MMOL/L (3.5-5.1) *H Chloride Level 103 MMOL/L (98-107) Carbon Dioxide Level 27 MMOL/L (21-32) Anion Gap 9 mmol/L (5-15) Blood Urea Nitrogen 65 mg/dL (7-18) H Creatinine 11.3 MG/DL (0.55-1.30) H Estimated Glomerular Filtration Rate 4.0 mL/min (>60) Glucose Level 102 MG/DL (74-106) Calcium Level 8.4 MG/DL (8.5-10.1) L Magnesium Level 2.8 MG/DL (1.8-2.4) H Ferritin 596 NG/ML (8-388) H Total Bilirubin 0.4 MG/DL (0.2-1.0) Aspartate Amino Transferase (AST) 16 U/L (15-37) Alanine Aminotransferase (ALT) 14 U/L (12-78) Alkaline Phosphatase 71 U/L (46-116) Lactate Dehydrogenase 295 U/L (81-234) H Total Creatine Kinase 94 U/L (26-308) Troponin I 0.011 ng/mL (0.000-0.056) C-Reactive Protein, Quantitative 0.9 mg/dL (0.00-0.90) Pro-B-Type Natriuretic Peptide > 14159 pg/mL (0-125) H Total Protein 8.2 G/DL (6.4-8.2) Albumin 3.0 G/DL (3.4-5.0) L Globulin 5.2 g/dL Albumin/Globulin Ratio 0.6 (1.0-2.7) L Lipase 138 U/L (73-393) Lactic Acid Level 1.00 mmol/L (0.4-2.0) White Blood Count 3.6 K/UL (4.8-10.8) L Red Blood Count 3.54 M/UL (4.20-5.40) L Hemoglobin 9.6 G/DL (12.0-16.0) L Hematocrit 31.9 % (37.0-47.0) L Mean Corpuscular Volume 90 FL (80-99) Mean Corpuscular Hemoglobin 27.0 PG (27.0-31.0) Mean Corpuscular Hemoglobin Concent 29.9 G/DL (32.0-36.0) L Red Cell Distribution Width 17.0 % (11.6-14.8) H Platelet Count 205 K/UL (150-450) Mean Platelet Volume 6.1 FL (6.5-10.1) L Neutrophils (%) (Auto) 49.0 % (45.0-75.0) Lymphocytes (%) (Auto) 26.5 % (20.0-45.0) Monocytes (%) (Auto) 10.3 % (1.0-10.0) H Eosinophils (%) (Auto) 12.5 % (0.0-3.0) H Basophils (%) (Auto) 1.6 % (0.0-2.0) Prothrombin Time 12.6 SEC (9.30-11.50) H Prothrombin Time INR 1.2 (0.9-1.1) H Activated Partial Thromboplast Time 28 SEC (23-33) Microbiology Date/Time Source Procedure Growth Status 09/20/20 16:50 Nasopharynx SARS-CoV-2 Antigen (Rapid)(VI[facility]IA) - Final Complete EKG Diagnostic Results Rate: normal Rhythm: NSR ST Segments: no acute changes - no peaked T waves - low voltage Rhythm Strip Diag. Results EP Interpretation: yes Rhythm: NSR, no PVC's, no ectopy Chest X-Ray Diagnostic Results Chest X-Ray Diagnostic Results : Chest X-Ray Ordered: Yes # of Views/Limited/Complete: 1 View Indication: Shortness of Breath EP Interpretation: Yes Interpretation: no effusion, no pneumothorax Impression: Other Electronically Signed by: Electronically signed by Nam Still MD Last Vital Signs Date Time Temp Pulse Resp B/P (MAP) Pulse Ox O2 Delivery O2 Flow Rate FiO2 09/20/20 18:06 Nasal Cannula 4.0 09/20/20 17:55 98.8 83 18 156/84 100 100 Status: improved Disposition: ADMITTED INPATIENT Condition: Serious Nam Still MD Sep 20, 2020 14:20
[2020-09-20] MEDS ORDERED: Nitroglycerin 2% oint pkt TOPIC ONE (14:30)
[2020-09-20 14:38] LABS: ALANINE AMINOTRANSFERASE 14 U/L (12-78); ALBUMIN/GLOBULIN RATIO 0.6 (1.0-2.7); ALKALINE PHOSPHATASE 71 U/L (46-116); ANION GAP 9 mmol/L (5-15); ASPARTATE AMINO TRANSFERASE 16 U/L (15-37); BILIRUBIN,TOTAL 0.4 MG/DL (0.2-1.0); BLOOD UREA NITROGEN 65 mg/dL (7-18); CALCIUM 8.4 MG/DL (8.5-10.1); CARBON DIOXIDE 27 MMOL/L (21-32); CHLORIDE 103 MMOL/L (98-107); CREATINE KINASE 94 U/L (26-308); CREATININE 11.3 MG/DL (0.55-1.30); FERRITIN 596 NG/ML (8-388); LACTATE DEHYDROGENASE 295 U/L (81-234); SODIUM 139 MMOL/L (136-145)
[2020-09-20 14:40] LABS: POTASSIUM 6.9 MMOL/L (3.5-5.1)
[2020-09-20] MEDS ORDERED: Sodium Polystyrene Sulfonate 15gm Powder ORAL ONE (15:00)
[2020-09-20] MEDS ORDERED: Calcium Gluconate 1gm/10ml vial IVP ONE (15:00)
--- NOTE | 2020-09-20 16:06 | Diagnostic Imaging Report ---
Indication: Cough Technique: One view of the chest Comparison: 08/06/2020 Findings: Interim development of bilateral fairly extensive interstitial and airspace edema. The heart is mildly enlarged. Left chest tunneled dialysis catheter is again demonstrated. Impression: Bilateral interstitial and airspace edema Cardiomegaly
[2020-09-20 16:24] VITALS: BP 156/84
--- NOTE | 2020-09-20 16:38 | NUR ---
Called to give report to SDU, nurse will call back for report
--- NOTE | 2020-09-20 17:28 | NUR ---
NURSE NOTES: Pt received from Zarina clayton RN. Bed placed low and locked, call light placed in reach. Vitals as follows 161/91, 84 HR, 98% on 4 liters NC, 96.6 oral. 16 respiration. Complains of 9/10 back pain and itchiness. Otherwise no complaints.
[2020-09-20] MEDS ORDERED: HydrALAZINE 25mg tab ORAL PRN (18:00)
--- NOTE | 2020-09-20 18:57 | NUR ---
NURSE HAND-OFF REPORT: Important Events on Shift:[Pt brought up from ER. high K, [facility] called, spoke to [facility]. Pt to be dialyzed tonight. ] Patient Status: [Full code] Diet: [Renal] Pending Orders: [] Pending Results/Labs:[] Pending MD notification:[Please ask Dr. Price for DVT prophylaxis ] Latest Vital Signs: Temperature 98.8 , Pulse 83 , B/P 156 /84 , Respiratory Rate 18 , O2 SAT 100 , Nasal Cannula, O2 Flow Rate 4.0 . Vital Sign Comment: [] EKG Rhythm: Sinus Rhythm Rhythm change?: MD Notified?: - MD Response: Latest Espinoza Fall Score: 35 Fall Risk: Medium Risk Safety Measures: Call light Within Reach, Bed Alarm Zone 1, Side Rails Side Rails x3, Bed position Low and Locked. Fall Precautions: Yellow Socks Patient Fall Education Report given to [Pending RN assignment]. Addendum: 09/20/20 at 1926 by Marianne Cruz RN report given to Natalia SALAZAR
--- NOTE | 2020-09-20 19:09 | NUR ---
NURSE NOTES: Received report from MARTIN Lopes. Pt is A/O x4 and verbally responsive. Pain noted on her back and wanted pain medications. Offered pain medication and pt denied. Pt is having dialysis and tolerating well. 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 No SOB or acute distress noted. Bed in lowest position and locked. Side rails x2 and bed alarm on. Will continue plan of care.
[2020-09-20 20:00] VITALS: BP 165/91
[2020-09-20] MEDS: BuPROPion SR 100mg tab ORAL SCH (20:40)
[2020-09-20] MEDS: TraZODone 50mg tab ORAL SCH (20:40)
[2020-09-20] MEDS: Dyna-Hex 2% Top Sol 2oz TOPIC SCH (20:40)
[2020-09-21] VITALS: BP 166/79
--- NOTE | 2020-09-21 00:03 | NUR ---
NURSE NOTES: Offered pain medication again after dialysis ended and pt denied but then agreed if RN would contact doctor to ask for something different. Informed pt that I had contacted Dr. Barnett and left a message regarding her concerns.
[2020-09-21] MEDS: HYDROcodone/Acetamin 10/325 tab ORAL PRN ×3 (00:12→23:32)
--- NOTE | 2020-09-21 00:29 | History and Physical Report ---
DATE OF ADMISSION: 09/20/2020 REASON FOR ADMISSION: Hyperkalemia. HISTORY OF PRESENT ILLNESS: This is a 70-year-old female with end-stage renal disease and multiple other problems, which will be listed below. She was just discharged from [facility] approximately just over a week ago. She was treated there for COVID-19. She refused to go to a rehabilitation center upon discharge and family members insisted they would ensure her adequate care and dialysis session compliance. In fact, an APS report was filed by [facility] based on her self-neglect. The patient attended 1 dialysis session and missed the subsequent four. Home health nursing went to her house on at least 2 occasions and were refused entry even though the patient knew them. Dr. Pryor sent staff to check on the patient at home since she did not show up for dialysis and they also were not able to get her to comply. Ultimately, she came to the emergency room complaining of back pain, shortness of breath, and had some sputum. She did not tell the emergency room that she had recently had COVID. The patient was taken off COVID-19 isolation over 10 days ago while at [facility]. PAST MEDICAL HISTORY: HIV, hepatitis C, ESRD, history of ovarian masses, hypertension, paroxysmal supraventricular tachyarrhythmias, conduction system disease with bradycardia, hypertensive heart disease, benzodiazepine dependence, hydrocodone dependence, recurrent cocaine abuse, history of Port-A-Cath line infection, chronic cholecystitis status post drainage, COPD. ALLERGIES: Include aspirin and iodine contrast. SOCIAL HISTORY: No alcohol. Denies smoking. Positive substance abuse with cocaine recurrently confirmed. FAMILY HISTORY: Noncontributory. REVIEW OF SYSTEMS: As outlined above. At this time, the patient is unreliable to give further data. PHYSICAL EXAMINATION: VITAL SIGNS: Blood pressure 156/84, heart rate 83, respiratory rate 18, and afebrile. HEENT: Conjunctivae pink. Sclerae anicteric. NECK: Supple. CHEST WALL: Catheter in place. LUNGS: Few rhonchi. CARDIAC: Regular rhythm and rate. Normal S1, S2 with 1/6 systolic apical murmur. ABDOMEN: Soft, nontender. EXTREMITIES: No edema. NEUROLOGIC: Slight asterixis noted. Symmetric strength. LABORATORY DATA: Labs notable for potassium of 6.9. White count 3.6, hemoglobin 9.6. BUN 65, creatinine 11. Lactic acid 1. Troponin negative. Pro-natriuretic peptide over 35,000. Albumin 3.0. IMPRESSION: Self-neglect, missed dialysis sessions, hyperkalemia, history of recurring cocaine abuse, hypertensive heart disease, cardiac arrhythmias, conduction system disease of the heart, end-stage renal disease on hemodialysis, mild protein-calorie malnutrition, HIV-positive, COVID-19 recovered, acute on chronic diastolic congestive heart failure. PLAN: Kayexalate urgently. Cardiac monitoring. Urgent hemodialysis and ultrafiltration. No need for isolation. Titrate cardiovascular regimen. Limit set on benzodiazepine and pain medications. APS report recently filed by [facility] will be followed up on. The patient cannot be sent home due to being a recurring risk to herself. Nam Barnett M.D. DR: Yahaira JOB#: [id number] CC:
[2020-09-21 04:20] LABS: HEMATOCRIT 26.4 % (37.0-47.0); HEMOGLOBIN 8.2 G/DL (12.0-16.0); MEAN CORPUSCULAR VOLUME 90 FL (80-99); PLATELET COUNT 149 K/UL (150-450); RED BLOOD COUNT 2.94 M/UL (4.20-5.40); RED CELL DISTRIBUTION WIDTH 17.4 % (11.6-14.8); WHITE BLOOD COUNT 2.6 K/UL (4.8-10.8)
[2020-09-21 04:35] VITALS: BP 158/75
[2020-09-21 04:52] LABS: ALANINE AMINOTRANSFERASE 8 U/L (12-78); ALBUMIN 2.7 G/DL (3.4-5.0); ALBUMIN/GLOBULIN RATIO 0.6 (1.0-2.7); ALKALINE PHOSPHATASE 61 U/L (46-116); ANION GAP 7 mmol/L (5-15); ASPARTATE AMINO TRANSFERASE 15 U/L (15-37); BILIRUBIN,TOTAL 0.3 MG/DL (0.2-1.0); BLOOD UREA NITROGEN 39 mg/dL (7-18); CALCIUM 8.2 MG/DL (8.5-10.1); CARBON DIOXIDE 30 MMOL/L (21-32); CHLORIDE 108 MMOL/L (98-107); CHOLESTEROL 121 MG/DL (< 200); CREATININE 7.9 MG/DL (0.55-1.30); HDL CHOLESTEROL 52 MG/DL (40-60); PHOSPHORUS 3.9 MG/DL (2.5-4.9); POTASSIUM 4.7 MMOL/L (3.5-5.1); SODIUM 144 MMOL/L (136-145); TRIGLYCERIDES 125 MG/DL (30-150)
--- NOTE | 2020-09-21 06:46 | NUR ---
NURSE HAND-OFF REPORT: Important Events on Shift: Pain medication not enough for pt. Patient Status: Stable Diet: Renal Pending Orders: Pending Results/Labs: Pending MD notification: Latest Vital Signs: Temperature 97.7 , Pulse 76 , B/P 158 /75 , Respiratory Rate 20 , O2 SAT 99 , Nasal Cannula, O2 Flow Rate 4.0 . Vital Sign Comment: EKG Rhythm: Sinus Rhythm Rhythm change?: N MD Notified?: - MD Response: Latest Espinoza Fall Score: 35 Fall Risk: Medium Risk Safety Measures: Call light Within Reach, Bed Alarm Zone 2, Side Rails Side Rails x2, Bed position Low and Locked. Fall Precautions: Yellow Socks Patient Fall Education Report given to Heidi.
--- NOTE | 2020-09-21 07:10 | NUR ---
NURSE NOTES: received patient report from jadon trotter. patient is on bed awake, not in acute distress. on 4 Li NC. covid (-). no acute events last night. afebrile. will follow plan of care.
[2020-09-21 08:00] VITALS: BP 168/75
[2020-09-21] MEDS: BuPROPion SR 100mg tab ORAL SCH ×2 (08:07→21:16)
[2020-09-21] MEDS ORDERED: Dolutegravir Sodium 50mg tab ORAL SCH (09:00)
--- NOTE | 2020-09-21 10:54 | Consultation ---
Consult Note Consult Note I was asked at the request of Dr. Barnett to manage patient's dialysis treatment while in hospital Patient is very well-known to me from her previous admissions Patient is followed by me as an outpatient at outpatient dialysis center Patient was recently discharged from [facility] where she was treated for COVID-19 infection Patient did not show for outpatient dialysis since September 13 Patient referred to emergency room here at [facility] yesterday and was admitted under the care of Dr. Saunders Initial lab indicated serum potassium of 6.9 ER note Chief Complaint: Dyspnea/Respdistress Patient presents via ambulance after missing for dialysis sessions with dyspnea. Patient with end-stage renal disease on dialysis. Patient has a history of noncompliance as well as cocaine abuse. She is complaining about lower back pain. She denies any fevers or chills. The patient says "I am very stupid". The patient rarely makes urine. She denies any dysuria. She has orthopnea and dyspnea on exertion. She states that she has a mildly productive cough with some beige phlegm. There is no hemoptysis. The back pain is rated 10/10, aching and somewhat sharp and nonradiating. Patient denies exposure to Covid positive contacts. No sore throat, chest pain, palpitations, nausea, vomiting, diarrhea, abdominal pain, rashes, visual changes, dizziness, headache. The patient was admitted early August of this year. Discharge diagnoses: 1. Abdominal pain, possible cholecystitis. 2. End-stage renal disease. 3. History of HIV. 4. Hypertension. 5. Conduction system disease. 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 COVID-19 Screening: Negative COVID-19 COVID-19 Testing Source: 1 week ago Past Medical History: see triage record, old chart reviewed, DM, HIV, renal disease Past Surgical History: other - Vas-Cath Past Medical History: No History, Except For Hx Cardiac Problems: No - HIV, HEP C Hx Hypertension: Yes Hx Diabetes: Yes - Blood sugar currently within normal limits Hx Gastrointestinal Problems: Yes - intractable abd pain Hx Dialysis: Yes - T TH S Hx Weakness: Yes Hx Fatigue: Yes Vital Signs Date Time Temp Pulse Resp B/P (MAP) Pulse Ox O2 Delivery O2 Flow Rate FiO2 09/20/20 13:21 98.8 80 17 145/77 (99) 73 Room Air Assessment/Plan End-stage renal disease Noncompliant with dialysis Presents with hyperkalemia Recent COVID-19 infection History of substance abuse, cocaine HIV disease Hepatitis C virus antibody positive Hypertensive kidney disease Noncompliance with diet and dialysis Anemia of chronic kidney disease Patient had emergency dialysis last night and today the serum potassium is normalized Adjust blood pressure medication Adjust blood sugar Monitor renal parameters and hemoglobin and hematocrit Per orders Jack Pryor MD Sep 21, 2020 10:54
[2020-09-21] MEDS ORDERED: HydrALAZINE 25mg tab ORAL PRN (11:15)
[2020-09-21 12:00] VITALS: BP 174/79
--- NOTE | 2020-09-21 12:09 | NUR ---
CASE MANAGEMENT:REVIEW 70 YR OLD FEMALE WALKED INTO ER CC: MISSED DIALYSIS 4X'S. SI: HYPOXIA. HYPERKALEMIA. PULMONARY EDEMA 98.8 80 17 145/77 73% ON RA WBC-3.6 H/H-9.6/31.9 K+6.9 BUN+65 CR+11.3 IS: IV MORPHINE X2 IV ZOFRAN X1 IV CA GLUCONATE KAYEXALATE PO NITRO 1" X1 COVID ANTIGEN CHEST XRAY BLOOD CX : TO STEP DOWN UNIT PLAN: REFER TO [facility] Addendum: 09/21/20 at 1218 by TERESA QUIÑONES LVN LVN PLACED ON 4L/NC
--- NOTE | 2020-09-21 12:24 | NUR ---
*-*DISCHARGE PLANNING*-* PATIENT HAS BEEN ACCEPTED AND WILL BE DISCHARGED TO: [facility] P: [phone] ROOM# 1.C ~~~~~~~~~~~~~NO DISCHARGE ORDER YET~~~~~~~~~~~~~~~~~~~~
[2020-09-21] MEDS: Docusate 100mg cap ORAL SCH ×3 (12:58→17:12)
[2020-09-21 16:00] VITALS: BP 154/73
--- NOTE | 2020-09-21 18:29 | Consultation ---
DATE OF CONSULTATION: 09/21/2020 INFECTIOUS DISEASE CONSULTATION This consult is for coverage of Dr. Garibay. CONSULTING PHYSICIAN: Armando Brown MD. PRIMARY ATTENDING: Nam Barnett MD. REASON FOR CONSULTATION: HIV. HISTORY OF PRESENT ILLNESS: This is a 70-year-old female admitted yesterday from home. Patient was recently discharged from [facility] over a week ago after treatment for COVID-19 disease. She refused to go to rehabilitation after discharge. She has end-stage renal disease and supposed to have hemodialysis, but only had one session of hemodialysis after discharge and missed the subsequent one. She has also HIV, but noncompliant with medication. Currently does not take any medication. PAST MEDICAL HISTORY: HIV, end-stage renal disease on hemodialysis, hypertension, hepatitis C, COPD, hypothyroidism, hepatosplenomegaly, cocaine abuse. ALLERGIES: Allergic to contrast dye, nonsteroidal anti-inflammatory agent. MEDICATIONS: Getting Epogen, levothyroxine, hydroxyzine, clonidine, Colace, Tivicay, Protonix, trazodone, bupropion, chlorhexidine, diazepam, Tylenol. SOCIAL HISTORY: Single. lives with a friend. Denies alcohol abuse and smoking. She has history of cocaine abuse. REVIEW OF SYSTEMS: Complains of generalized pain. No fever. No chills. No coughing. No nausea. No vomiting. Shortness of breath is improved. PHYSICAL EXAMINATION: VITAL SIGNS: Temperature 98.2, pulse 87, blood pressure is 168/75. GENERAL APPEARANCE: No acute distress. HEAD AND NECK: Moist mucous membranes. HEART: Normal rate. LUNGS: Clear. Getting oxygen by nasal cannula. ABDOMEN: Soft. EXTREMITIES: No edema. NEUROLOGIC: Awake, alert, responsive. LABORATORY AND DIAGNOSTIC DATA: WBC 2.6, hemoglobin 8.2, hematocrit 26.4, platelets 149. Sodium 144, potassium 4.7, chloride 108, bicarb 30, glucose is 108. COVID-19 rapid test was negative. Chest x-ray showed there is bilateral interstitial and airspace edema, cardiomegaly. IMPRESSION: HIV, unknown stage. Patient is not very compliant with medication and currently is on one antiviral medication. Has recent COVID test. Has COPD, hepatitis C, pancytopenia, pulmonary edema, noncompliance with hemodialysis, end-stage renal disease, hypothyroidism, hepatosplenomegaly. RECOMMENDATION: Will check CD4 count. We will try to obtain more information about the past treatment for HIV. At the end of my exam, I thank Dr. Barnett for involving me in the care of this patient. Armando Brown M.D. DR: BISHNU JOB#: [id number] CC: AMBERLY
--- NOTE | 2020-09-21 18:43 | NUR ---
NURSE NOTES: called [facility] dialysis requesting early service tomorrow per dr barber' order. spoke with yumiko of [facility]. daisy or myke will return call kari for confirmation.
--- NOTE | 2020-09-21 18:49 | NUR ---
NURSE NOTES: [facility] HD nurse called back and confirmed HD tomorrow morning first case.will continue to monitor.
--- NOTE | 2020-09-21 19:16 | NUR ---
NURSE HAND-OFF REPORT: Important Events on Shift:stable,comfortable Patient Status: full code Diet: renal Pending Orders: hd emilie am, [facility] called informed them of early HD emilie per dr barber order Pending Results/Labs:[] Pending MD notification:[] Latest Vital Signs: Temperature 97.7 , Pulse 73 , B/P 154 /73 , Respiratory Rate 18 , O2 SAT 100 , Nasal Cannula, O2 Flow Rate 4.0 . Vital Sign Comment: stable EKG Rhythm: Sinus Rhythm Rhythm change?: N MD Notified?: - MD Response: Latest Espinoza Fall Score: 35 Fall Risk: Medium Risk Safety Measures: Call light Within Reach, Bed Alarm Zone 2, Side Rails Side Rails x2, Bed position Low and Locked. Fall Precautions: Yellow Gown Patient Fall Education Report given to volodymyr trotter.
--- NOTE | 2020-09-21 19:20 | NUR ---
NURSE NOTES: Received report from MARTIN Gordon. Pt is A/O x4 and verbally responsive. on RA with no respiratory distress noted.o2 sat is 98%. ekg monitor tech in place and shows SR.No c/o pain at this time.call light in reach. Bed in lowest position and locked. Side rails x2 and bed alarm on. Will continue plan of care.
[2020-09-21 20:00] VITALS: BP 165/92
[2020-09-21] MEDS: TraZODone 50mg tab ORAL SCH (21:16)
[2020-09-21] MEDS: Dyna-Hex 2% Top Sol 2oz TOPIC SCH (21:16)
--- NOTE | 2020-09-21 23:40 | NUR ---
NURSE NOTES: Patient c/o bilateral leg pain ( 03/13). [place] 10/325 1T given as ordered.
[2020-09-22] VITALS: BP 160/87
--- NOTE | 2020-09-22 01:40 | NUR ---
NURSE NOTES: Pt sleeping in bed comfortably.vss. Afebrile.SR on monitor. Turned and repositioned.
--- NOTE | 2020-09-22 02:21 | Cardiology Progress Note ---
Subjective DATE OF SERVICE: Sep 21, 2020 s/p HD/UF yesterday; potassium has normalized. Patient cannot say why she missed dialysis, other than c/o pain. Objective Last 24 Hour Vital Signs Date Time Temp Pulse Resp B/P (MAP) Pulse Ox O2 Delivery O2 Flow Rate FiO2 09/22/20 00:00 Room Air 09/22/20 00:00 78 09/22/20 00:00 97.5 84 20 160/87 (111) 98 09/21/20 20:00 Room Air 09/21/20 20:00 99.0 92 20 165/92 (116) 98 09/21/20 20:00 91 09/21/20 17:58 154/73 09/21/20 16:00 97.7 73 18 154/73 (100) 100 09/21/20 16:00 Room Air 09/21/20 15:36 75 09/21/20 12:58 174/79 09/21/20 12:00 Room Air 09/21/20 12:00 98.1 88 18 174/79 (110) 98 09/21/20 11:32 87 09/21/20 11:30 98.2 09/21/20 11:01 168/75 09/21/20 08:00 83 09/21/20 08:00 Room Air 09/21/20 08:00 98.2 91 20 168/75 (106) 99 09/21/20 04:35 97.7 76 20 158/75 (102) 99 09/21/20 04:35 78 09/21/20 04:35 Room Air HEENT: normal ENT inspection RHYTHM: NSR, PACs LUNGS: lungs clear bilaterally, other - right chest wall dialysis cath CARDIAC: normal rate, regular rhythm, normal S1 and S2, gallop/S4 ABDOMEN: normal bowel sounds, non tender, soft EXTREMITIES: non-tender, slow capillary refill, No edema Laboratory Tests Test 09/21/20 04:00 White Blood Count 2.6 K/UL (4.8-10.8) L Red Blood Count 2.94 M/UL (4.20-5.40) L Hemoglobin 8.2 G/DL (12.0-16.0) L Hematocrit 26.4 % (37.0-47.0) L Mean Corpuscular Volume 90 FL (80-99) Mean Corpuscular Hemoglobin 28.0 PG (27.0-31.0) Mean Corpuscular Hemoglobin Concent 31.1 G/DL (32.0-36.0) L Red Cell Distribution Width 17.4 % (11.6-14.8) H Platelet Count 149 K/UL (150-450) L Mean Platelet Volume 6.4 FL (6.5-10.1) L Neutrophils (%) (Auto) % (45.0-75.0) Lymphocytes (%) (Auto) % (20.0-45.0) Monocytes (%) (Auto) % (1.0-10.0) Eosinophils (%) (Auto) % (0.0-3.0) Basophils (%) (Auto) % (0.0-2.0) Sodium Level 144 MMOL/L (136-145) Potassium Level 4.7 MMOL/L (3.5-5.1) Chloride Level 108 MMOL/L (98-107) H Carbon Dioxide Level 30 MMOL/L (21-32) Anion Gap 7 mmol/L (5-15) Blood Urea Nitrogen 39 mg/dL (7-18) H Creatinine 7.9 MG/DL (0.55-1.30) H Estimat Glomerular Filtration Rate 6.1 mL/min (>60) Glucose Level 108 MG/DL (74-106) H Hemoglobin A1c 5.3 % (4.3-6.0) Uric Acid 5.3 MG/DL (2.6-7.2) Calcium Level 8.2 MG/DL (8.5-10.1) L Phosphorus Level 3.9 MG/DL (2.5-4.9) Magnesium Level 2.6 MG/DL (1.8-2.4) H Total Bilirubin 0.3 MG/DL (0.2-1.0) Aspartate Amino Transf (AST/SGOT) 15 U/L (15-37) Alanine Aminotransferase (ALT/SGPT) 8 U/L (12-78) L Alkaline Phosphatase 61 U/L (46-116) Total Protein 7.3 G/DL (6.4-8.2) Albumin 2.7 G/DL (3.4-5.0) L Globulin 4.6 g/dL Albumin/Globulin Ratio 0.6 (1.0-2.7) L Triglycerides Level 125 MG/DL (30-150) Cholesterol Level 121 MG/DL (< 200) LDL Cholesterol 50 mg/dL (<100) HDL Cholesterol 52 MG/DL (40-60) Cholesterol/HDL Ratio 2.3 (3.3-4.4) L Thyroid Stimulating Hormone (TSH) 7.323 uiU/mL (0.358-3.740) Microbiology Date/Time Source Procedure Growth Status 09/20/20 16:50 Nasopharynx SARS-CoV-2 Antigen (Rapid)(VICTORIA) - Final Complete 09/20/20 13:55 Blood Blood Culture - Preliminary NO GROWTH AFTER 24 HOURS Resulted 09/20/20 13:30 Blood Blood Culture - Preliminary NO GROWTH AFTER 24 HOURS Resulted Assessment/Plan Assessment/Plan Missed dialysis sessions Non compliance Hx cocaine abuse Hypertension/HHD HIV+ Hep C IRDM ESRD Metabolic encephalopathy Bilateral ovarian masses Cardiovascular regimen being titrated HD with UF Unsafe to return home due to self neglect Nam Barnett MD Sep 22, 2020 02:21
--- NOTE | 2020-09-22 03:17 | NUR ---
NURSE NOTES: Pt asleep but easily awakened to touch. SR on safety trainer. Respiration even and unlabored. Sponge bath given. oral care done.
[2020-09-22 04:00] VITALS: BP 135/69
[2020-09-22 05:32] LABS: HEMATOCRIT 24.4 % (37.0-47.0); HEMOGLOBIN 7.7 G/DL (12.0-16.0); MEAN CORPUSCULAR VOLUME 90 FL (80-99); PLATELET COUNT 152 K/UL (150-450); RED BLOOD COUNT 2.71 M/UL (4.20-5.40); RED CELL DISTRIBUTION WIDTH 17.4 % (11.6-14.8); WHITE BLOOD COUNT 2.5 K/UL (4.8-10.8)
[2020-09-22 06:06] LABS: ALANINE AMINOTRANSFERASE 7 U/L (12-78); ALBUMIN 2.6 G/DL (3.4-5.0); ALBUMIN/GLOBULIN RATIO 0.6 (1.0-2.7); ALKALINE PHOSPHATASE 59 U/L (46-116); ANION GAP 7 mmol/L (5-15); ASPARTATE AMINO TRANSFERASE 17 U/L (15-37); BILIRUBIN,TOTAL 0.3 MG/DL (0.2-1.0); BLOOD UREA NITROGEN 46 mg/dL (7-18); CALCIUM 7.7 MG/DL (8.5-10.1); CARBON DIOXIDE 30 MMOL/L (21-32); CHLORIDE 103 MMOL/L (98-107); CREATININE 8.7 MG/DL (0.55-1.30); FERRITIN 476 NG/ML (8-388); POTASSIUM 5.1 MMOL/L (3.5-5.1); SODIUM 140 MMOL/L (136-145)
[2020-09-22 06:33] LABS: % IRON SATURATION 27 % (15-50); IRON 46 ug/dL (50-175); TOTAL IRON BINDING CAPACITY 172 ug/dL (250-450)
--- NOTE | 2020-09-22 07:35 | NUR ---
NURSE HAND-OFF REPORT: Important Events on Shift:HD in AM Patient Status: stable Diet: RENAL Pending Orders: N Pending Results/Labs:N Pending MD notification:N Latest Vital Signs: Temperature 97.9 , Pulse 77 , B/P 135 /69 , Respiratory Rate 20 , O2 SAT 98 , Nasal Cannula, O2 Flow Rate 4.0 . Vital Sign Comment: STABLE EKG Rhythm: Sinus Rhythm Rhythm change?: N MD Notified?: - MD Response: Latest Espinoza Fall Score: 35 Fall Risk: Medium Risk Safety Measures: Call light Within Reach, Bed Alarm Zone 2, Side Rails Side Rails x2, Bed position Low and Locked. Fall Precautions: Yellow Gown Patient Fall Education Report given to DAX SALAZAR.
--- NOTE | 2020-09-22 07:40 | NUR ---
NURSE NOTES: Report received from Vonnie Castellon RN.Pt asleep noted no resp distress,with on going HD at bedside,no signs of pain or discomfort,procedure tolerated,Pt on SR on the monitor,skin warm and dry,IV site to CLARITZA intact,Lt SC Perma cath intact,SR up x2 HOB elevated bed ,lock in lowest position will continue with plans of care.
[2020-09-22 08:00] VITALS: BP 148/77
[2020-09-22] MEDS: BuPROPion SR 100mg tab ORAL SCH (09:16)
[2020-09-22] MEDS: Docusate 100mg cap ORAL SCH ×2 (09:16→13:00)
--- NOTE | 2020-09-22 10:00 | NUR ---
NURSE NOTES: On going HD done,procedure tolerated, took out 2l of fluid.
[2020-09-22] MEDS ORDERED: HYDRALAZINE HCL25 M1 ORAL (10:55)
[2020-09-22] MEDS ORDERED: CATAPRES-TTS 31 EACH TDERMAL (10:55)
[2020-09-22] MEDS ORDERED: DESYREL50 MG ORAL (10:55)
[2020-09-22] MEDS ORDERED: PANTOPRAZOLE SO40 MG ORAL (10:55)
--- NOTE | 2020-09-22 10:57 | Infectious Diseases Prog Note ---
Assessment/Plan Assessment/Plan antibiotics : none A 1. gram positive sepsis 2. HIV 3. hepatitis C 4. renal failure on HD 5. COPD 6. hypertension P 1. start iv vancomycin 2. will follow up cultures Subjective ROS Limited/Unobtainable: Yes Allergies: Coded Allergies: IODINE (Verified Allergy, Unknown, 01/07/20) Uncoded Allergies: CONTRAST DYE (Allergy, Unknown, 01/07/20) NSAID (Allergy, Unknown, 04/24/20) Objective Last 24 Hour Vital Signs Date Time Temp Pulse Resp B/P (MAP) Pulse Ox O2 Delivery O2 Flow Rate FiO2 09/22/20 08:00 63 09/22/20 08:00 97.9 69 18 148/77 (100) 99 09/22/20 04:00 97.9 77 20 135/69 (91) 98 09/22/20 04:00 Room Air 09/22/20 04:00 73 09/22/20 00:00 Room Air 09/22/20 00:00 78 09/22/20 00:00 97.5 84 20 160/87 (111) 98 09/21/20 20:00 Room Air 09/21/20 20:00 99.0 92 20 165/92 (116) 98 09/21/20 20:00 91 09/21/20 17:58 154/73 09/21/20 16:00 97.7 73 18 154/73 (100) 100 09/21/20 16:00 Room Air 09/21/20 15:36 75 09/21/20 12:58 174/79 09/21/20 12:00 Room Air 09/21/20 12:00 98.1 88 18 174/79 (110) 98 09/21/20 11:32 87 09/21/20 11:30 98.2 09/21/20 11:01 168/75 Height (Feet): 5 Height (Inches): 4.00 Weight (Pounds): 170 Respiratory/Chest: lungs clear Cardiovascular: normal rate, regular rhythm, no gallop/murmur Abdomen: soft, non tender Extremities: no edema, other - left subclavian catheter Microbiology Date/Time Source Procedure Growth Status 09/20/20 16:50 Nasal Nares MRSA Culture - Final NO METHICILLIN RESISTANT STAPH AUREUS... Complete 09/20/20 16:50 Nasopharynx SARS-CoV-2 Antigen (Rapid)(VICTORIA) - Final Complete 09/20/20 13:55 Blood Blood Culture - Preliminary Resulted 09/20/20 13:30 Blood Blood Culture - Preliminary NO GROWTH AFTER 24 HOURS Resulted Laboratory Tests Test 09/22/20 04:40 White Blood Count Pending Red Blood Count 2.71 M/UL (4.20-5.40) L Hemoglobin 7.7 G/DL (12.0-16.0) L Hematocrit 24.4 % (37.0-47.0) L Mean Corpuscular Volume 90 FL (80-99) Mean Corpuscular Hemoglobin 28.6 PG (27.0-31.0) Mean Corpuscular Hemoglobin Concent 31.7 G/DL (32.0-36.0) L Red Cell Distribution Width 17.4 % (11.6-14.8) H Platelet Count 152 K/UL (150-450) Mean Platelet Volume 6.0 FL (6.5-10.1) L Neutrophils (%) (Auto) % (45.0-75.0) Lymphocytes (%) (Auto) % (20.0-45.0) Monocytes (%) (Auto) % (1.0-10.0) Eosinophils (%) (Auto) % (0.0-3.0) Basophils (%) (Auto) % (0.0-2.0) Differential Total Cells Counted 100 Neutrophils % (Manual) 45 % (45-75) Lymphocytes % (Manual) 25 % (20-45) Monocytes % (Manual) 18 % (1-10) H Eosinophils % (Manual) 12 % (0-3) H Basophils % (Manual) 0 % (0-2) Band Neutrophils 0 % (0-8) Lymphocytes Pending Platelet Estimate Decreased L Platelet Morphology Normal Hypochromasia 1+ Anisocytosis 1+ Sodium Level 140 MMOL/L (136-145) Potassium Level 5.1 MMOL/L (3.5-5.1) Chloride Level 103 MMOL/L (98-107) Carbon Dioxide Level 30 MMOL/L (21-32) Anion Gap 7 mmol/L (5-15) Blood Urea Nitrogen 46 mg/dL (7-18) H Creatinine 8.7 MG/DL (0.55-1.30) H Estimat Glomerular Filtration Rate 5.5 mL/min (>60) Glucose Level 98 MG/DL (74-106) Uric Acid 5.8 MG/DL (2.6-7.2) Calcium Level 7.7 MG/DL (8.5-10.1) L Phosphorus Level 4.0 MG/DL (2.5-4.9) Magnesium Level 2.4 MG/DL (1.8-2.4) Iron Level 46 ug/dL (50-175) L Total Iron Binding Capacity 172 ug/dL (250-450) L Percent Iron Saturation 27 % (15-50) Unsaturated Iron Binding 126 ug/dL (112-346) Ferritin 476 NG/ML (8-388) H Total Bilirubin 0.3 MG/DL (0.2-1.0) Aspartate Amino Transf (AST/SGOT) 17 U/L (15-37) Alanine Aminotransferase (ALT/SGPT) 7 U/L (12-78) L Alkaline Phosphatase 59 U/L (46-116) C-Reactive Protein, Quantitative 0.7 mg/dL (0.00-0.90) Total Protein 7.1 G/DL (6.4-8.2) Albumin 2.6 G/DL (3.4-5.0) L Globulin 4.5 g/dL Albumin/Globulin Ratio 0.6 (1.0-2.7) L Vitamin B12 Level 287 PG/ML (193-986) Folate 2.7 NG/ML (8.6-58.9) L Percent CD3 Cells Pending Absolute CD3 Count Pending Percent CD4 Cells Pending Absolute CD4 Count Pending T-Lymphocyte CD4/CD8 Ratio Pending Percent CD8 Cells Pending Absolute CD8 Count Pending Current Medications Medications (Trade) Dose Ordered Sig/Rochelle Route PRN Reason Start Time Stop Time Status Last Admin Dose Admin Acetaminophen (Tylenol) 650 mg Q6H PRN ORAL For Headache 09/20/20 18:00 10/20/20 17:59 Acetaminophen/ Hydrocodone Bitart ([place] 10/325) 1 tab BIDPRN PRN ORAL For Pain 09/20/20 18:00 09/27/20 17:59 09/21/20 23:32 Bupropion HCl (Wellbutrin SR) 100 mg Q12HR ORAL 09/20/20 21:00 10/20/20 20:59 09/22/20 09:16 Chlorhexidine Gluconate (Mamie-Hex 2%) 1 applic DAILY@2000 TOPIC 09/20/20 20:00 12/19/20 19:59 09/21/20 21:16 Clonidine HCl (Catapres TTS-3) 1 patch QWEEK TDERMAL 09/21/20 13:00 12/20/20 12:59 09/21/20 12:58 Diazepam (Valium) 2 mg BIDPRN PRN ORAL For Anxiety 09/20/20 18:00 09/27/20 17:59 09/20/20 20:40 Docusate Sodium (Colace) 100 mg THREE TIMES A DAY ORAL 09/21/20 13:00 10/21/20 12:59 09/22/20 09:16 Dolutegravir Sodium (Tivicay) 50 mg DAILY ORAL 09/21/20 09:00 12/20/20 08:59 UNV Epoetin Jose (Epoetin Jose(ESRD on dialysis)) 10,000 unit FRI-FRI-FRI SUBQ 09/22/20 21:00 12/21/20 20:59 Hydralazine HCl (Apresoline) 25 mg Q4H PRN ORAL SBP above 150mmHg 09/21/20 11:15 12/19/20 17:59 09/21/20 17:58 Hydroxyzine HCl (Vistaril) 25 mg Q8H ORAL 09/21/20 14:00 10/20/20 13:59 09/22/20 05:50 Levothyroxine Sodium (Synthroid) 50 mcg DAILY@0630 ORAL 09/22/20 06:30 10/22/20 06:29 09/22/20 05:50 Pantoprazole (Protonix) 40 mg DAILY ORAL 09/21/20 09:00 10/21/20 08:59 09/22/20 09:16 Trazodone HCl (Desyrel) 50 mg BEDTIME ORAL 09/20/20 21:00 10/20/20 20:59 09/21/20 21:16 Elvis Garibay MD Sep 22, 2020 10:57
--- NOTE | 2020-09-22 11:28 | Consultation ---
History of Present Illness General Reason for Hospitalization: Dyspnea/Respdistress Present Illness HPI This is a very pleasant 70-year-old female with multiple medical comorbidities who is well-known to me who recently had episode of cholecystitis treated nonoperatively given her multiple high risk medical comorbidities which she resolved from now presents and readmitted complaining of abdominal pain during admission. Surgery called to eval assist with care. Afebrile hemodynamically stable generalized body pain abdominal pain asking for more pain medication. Patient has a history of pain medication use and requirement. Her LFTs are okay leukopenia. Amylase lipase normal. Allergies: Coded Allergies: IODINE (Verified Allergy, Unknown, 01/07/20) Uncoded Allergies: CONTRAST DYE (Allergy, Unknown, 01/07/20) NSAID (Allergy, Unknown, 04/24/20) COVID-19 Screening Contact w/high risk pt: No Recent Travel to affected area: No Experienced COVID-19 symptoms?: Yes Coronavirus symptoms experienc: Shortness of Breath Medication History Scheduled Amlodipine Besylate* (Amlodipine Besylate*), 10 MG ORAL DAILY, (Reported) Bupropion Hcl (Wellbutrin Sr), 100 MG ORAL BID, (Reported) Docusate Sodium (Stool Softener), 100 MG ORAL BID, (Reported) Dolutegravir Sodium (Tivicay), 50 MG ORAL DAILY, (Reported) Escitalopram Oxalate* (Lexapro*), 10 MG ORAL DAILY, (Reported) Hydralazine Hcl* (Hydralazine Hcl*), 75 MG ORAL EVERY 8 HOURS, (Reported) Levothyroxine Sodium* (Synthroid*), 75 MCG ORAL DAILY, (Reported) Lorazepam* (Ativan*), 1 MG ORAL DAILY Pantoprazole* (Pantoprazole*), 40 MG ORAL BID, (Reported) Trazodone Hcl* (Desyrel*), 50 MG ORAL BID, (Reported) Scheduled PRN Hydrocodone Bit/Acetaminophen 10-325* ([place] 10-325*), 1 TAB ORAL DAILY PRN for For Pain, (Reported) Hydroxyzine Hcl (Hydroxyzine Hcl), 25 MG PO THREE TIMES A DAY PRN for Itching, (Reported) Patient History History Provided By: Patient, Medical Record, PMD Healthcare decision maker Resuscitation status Advanced Directive on File Past Medical/Surgical History Past Medical/Surgical History: (1) CHF (congestive heart failure), NYHA class II (2) Sick sinus syndrome (3) Fluid overload (4) Substance abuse (5) Cocaine abuse (6) Anxiety (7) Cirrhosis (8) Pruritus (9) Cholecystitis, acute (10) Weakness (11) Hypertension (12) HIV disease (13) Cyst of skin (14) Epileptic seizure, generalized (15) Open wound of chest wall (16) Adnexal mass (17) HCV antibody positive (18) Hypertensive urgency (19) Intractable abdominal pain (20) Recurrent vulvovaginal herpes simplex (21) Abdominal pain (22) Hypertensive kidney disease (23) Missed dialysis (24) Hyperkalemia (25) Pulmonary edema (26) Hypoxia (27) Non-compliance (28) ESRD (end stage renal disease) on dialysis Review of Systems Review of Symptoms General ROS: no weight loss or fever Psychological ROS: no depression or mood changes, no memory loss Ophthalmic ROS: no visual changes or eye irritation ENT ROS: no nasal congestion, hearing loss, dizziness Allergy and Immunology ROS: no allergic symptoms or urticaria Hematological and Lymphatic ROS: no swollen glands, unusual bleeding or bruising Endocrine ROS: no polyuria, polydipsia, weight changes, temperature intolerance Respiratory ROS: no cough, shortness of breath, or wheezing Cardiovascular ROS: no chest pain or dyspnea on exertion Gastrointestinal ROS: denies abdominal pain, bright red blood in stool. Musculoskeletal ROS: no myalgias or arthralgias Neurological ROS: no TIA or stroke symptoms Dermatological ROS: no new or changing skin lesions, rashes or pruritis Physical Exam Physical Exam General appearance: alert, cooperative, no distress, appears stated age Head: Normocephalic, without obvious abnormality, atraumatic Eyes: conjunctivae/corneas clear. PERRL, EOM's intact. Fundi benign Throat: Lips, mucosa, and tongue normal. Teeth and gums normal Neck: supple, symmetrical, trachea midline, no adenopathy, thyroid: not enlarged, symmetric, no tenderness/mass/nodules, no carotid bruit and no JVD Lungs: clear to auscultation bilaterally Heart: regular rate and rhythm, S1, S2 normal, no murmur, click, rub or gallop Abdomen: soft, non-tender. Bowel sounds normal. No masses, no organomegaly Extremities: extremities normal, atraumatic, no cyanosis or edema Pulses: 2+ and symmetric Skin: Skin color, texture, turgor normal. No rashes or lesions Neurologic: Grossly normal Last 24 Hour Vital Signs Date Time Temp Pulse Resp B/P (MAP) Pulse Ox O2 Delivery O2 Flow Rate FiO2 09/22/20 08:00 63 09/22/20 08:00 97.9 69 18 148/77 (100) 99 09/22/20 04:00 97.9 77 20 135/69 (91) 98 09/22/20 04:00 Room Air 09/22/20 04:00 73 09/22/20 00:00 Room Air 09/22/20 00:00 78 09/22/20 00:00 97.5 84 20 160/87 (111) 98 09/21/20 20:00 Room Air 09/21/20 20:00 99.0 92 20 165/92 (116) 98 09/21/20 20:00 91 09/21/20 17:58 154/73 09/21/20 16:00 97.7 73 18 154/73 (100) 100 09/21/20 16:00 Room Air 09/21/20 15:36 75 09/21/20 12:58 174/79 09/21/20 12:00 Room Air 09/21/20 12:00 98.1 88 18 174/79 (110) 98 09/21/20 11:32 87 09/21/20 11:30 98.2 Intake and Output 09/21/20 09/22/20 19:00 07:00 Intake Total 500 ml 600 ml Balance 500 ml 600 ml Intake Oral 500 ml 600 ml # Voids 1 # Bowel Movements 2 2 Laboratory Tests Test 09/22/20 04:40 White Blood Count Pending Red Blood Count 2.71 M/UL (4.20-5.40) L Hemoglobin 7.7 G/DL (12.0-16.0) L Hematocrit 24.4 % (37.0-47.0) L Mean Corpuscular Volume 90 FL (80-99) Mean Corpuscular Hemoglobin 28.6 PG (27.0-31.0) Mean Corpuscular Hemoglobin Concent 31.7 G/DL (32.0-36.0) L Red Cell Distribution Width 17.4 % (11.6-14.8) H Platelet Count 152 K/UL (150-450) Mean Platelet Volume 6.0 FL (6.5-10.1) L Neutrophils (%) (Auto) % (45.0-75.0) Lymphocytes (%) (Auto) % (20.0-45.0) Monocytes (%) (Auto) % (1.0-10.0) Eosinophils (%) (Auto) % (0.0-3.0) Basophils (%) (Auto) % (0.0-2.0) Differential Total Cells Counted 100 Neutrophils % (Manual) 45 % (45-75) Lymphocytes % (Manual) 25 % (20-45) Monocytes % (Manual) 18 % (1-10) H Eosinophils % (Manual) 12 % (0-3) H Basophils % (Manual) 0 % (0-2) Band Neutrophils 0 % (0-8) Lymphocytes Pending Platelet Estimate Decreased L Platelet Morphology Normal Hypochromasia 1+ Anisocytosis 1+ Sodium Level 140 MMOL/L (136-145) Potassium Level 5.1 MMOL/L (3.5-5.1) Chloride Level 103 MMOL/L (98-107) Carbon Dioxide Level 30 MMOL/L (21-32) Anion Gap 7 mmol/L (5-15) Blood Urea Nitrogen 46 mg/dL (7-18) H Creatinine 8.7 MG/DL (0.55-1.30) H Estimat Glomerular Filtration Rate 5.5 mL/min (>60) Glucose Level 98 MG/DL (74-106) Uric Acid 5.8 MG/DL (2.6-7.2) Calcium Level 7.7 MG/DL (8.5-10.1) L Phosphorus Level 4.0 MG/DL (2.5-4.9) Magnesium Level 2.4 MG/DL (1.8-2.4) Iron Level 46 ug/dL (50-175) L Total Iron Binding Capacity 172 ug/dL (250-450) L Percent Iron Saturation 27 % (15-50) Unsaturated Iron Binding 126 ug/dL (112-346) Ferritin 476 NG/ML (8-388) H Total Bilirubin 0.3 MG/DL (0.2-1.0) Aspartate Amino Transf (AST/SGOT) 17 U/L (15-37) Alanine Aminotransferase (ALT/SGPT) 7 U/L (12-78) L Alkaline Phosphatase 59 U/L (46-116) C-Reactive Protein, Quantitative 0.7 mg/dL (0.00-0.90) Total Protein 7.1 G/DL (6.4-8.2) Albumin 2.6 G/DL (3.4-5.0) L Globulin 4.5 g/dL Albumin/Globulin Ratio 0.6 (1.0-2.7) L Vitamin B12 Level 287 PG/ML (193-986) Folate 2.7 NG/ML (8.6-58.9) L Percent CD3 Cells Pending Absolute CD3 Count Pending Percent CD4 Cells Pending Absolute CD4 Count Pending T-Lymphocyte CD4/CD8 Ratio Pending Percent CD8 Cells Pending Absolute CD8 Count Pending Height (Feet): 5 Height (Inches): 4.00 Weight (Pounds): 170 Medications Current Medications Medications (Trade) Dose Ordered Sig/Rochelle Route PRN Reason Start Time Stop Time Status Last Admin Dose Admin Acetaminophen (Tylenol) 650 mg Q6H PRN ORAL For Headache 09/20/20 18:00 10/20/20 17:59 Acetaminophen/ Hydrocodone Bitart ([place] 10/325) 1 tab BIDPRN PRN ORAL For Pain 09/20/20 18:00 09/27/20 17:59 09/21/20 23:32 Bupropion HCl (Wellbutrin SR) 100 mg Q12HR ORAL 09/20/20 21:00 10/20/20 20:59 09/22/20 09:16 Chlorhexidine Gluconate (Mamie-Hex 2%) 1 applic DAILY@2000 TOPIC 09/20/20 20:00 12/19/20 19:59 09/21/20 21:16 Clonidine HCl (Catapres TTS-3) 1 patch QWEEK TDERMAL 09/21/20 13:00 12/20/20 12:59 09/21/20 12:58 Diazepam (Valium) 2 mg BIDPRN PRN ORAL For Anxiety 09/20/20 18:00 09/27/20 17:59 09/20/20 20:40 Docusate Sodium (Colace) 100 mg THREE TIMES A DAY ORAL 09/21/20 13:00 10/21/20 12:59 09/22/20 09:16 Dolutegravir Sodium (Tivicay) 50 mg DAILY ORAL 09/21/20 09:00 12/20/20 08:59 UNV Epoetin Jose (Epoetin Jose(ESRD on dialysis)) 10,000 unit FRI-FRI-FRI SUBQ 09/22/20 21:00 12/21/20 20:59 Hydralazine HCl (Apresoline) 25 mg Q4H PRN ORAL SBP above 150mmHg 09/21/20 11:15 12/19/20 17:59 09/21/20 17:58 Hydroxyzine HCl (Vistaril) 25 mg Q8H ORAL 09/21/20 14:00 10/20/20 13:59 09/22/20 05:50 Levothyroxine Sodium (Synthroid) 50 mcg DAILY@0630 ORAL 09/22/20 06:30 10/22/20 06:29 09/22/20 05:50 Pantoprazole (Protonix) 40 mg DAILY ORAL 09/21/20 09:00 10/21/20 08:59 09/22/20 09:16 Trazodone HCl (Desyrel) 50 mg BEDTIME ORAL 09/20/20 21:00 10/20/20 20:59 09/21/20 21:16 Vancomycin HCl 250 ml @ 166.667 mls/hr ONCE IVPB 09/22/20 12:00 09/22/20 13:00 Vancomycin HCl (Vanco pharmacy to dose) 1 ea DAILY PRN MISC Per rx protocol 09/22/20 11:00 10/22/20 10:59 Assessment/Plan Problem List: (1) Hyperkalemia ICD Codes: E87.5 - Hyperkalemia SNOMED: 40504523 (2) Pulmonary edema ICD Codes: J81.1 - Chronic pulmonary edema SNOMED: 40911721 Qualifiers: Qualified Codes: J81.0 - Acute pulmonary edema (3) Hypoxia ICD Codes: R09.02 - Hypoxemia SNOMED: 835794605 (4) Non-compliance ICD Codes: Z91.19 - Patient's noncompliance with other medical treatment and regimen SNOMED: 6094246 (5) ESRD (end stage renal disease) on dialysis ICD Codes: N18.6 - End stage renal disease; Z99.2 - Dependence on renal dialysis SNOMED: 901285836 (6) Sick sinus syndrome ICD Codes: I49.5 - Sick sinus syndrome SNOMED: 54344464 (7) Fluid overload ICD Codes: E87.70 - Fluid overload, unspecified SNOMED: 37832280 (8) Substance abuse ICD Codes: F19.10 - Other psychoactive substance abuse, uncomplicated SNOMED: 99996858 (9) Cocaine abuse ICD Codes: F14.10 - Cocaine abuse, uncomplicated SNOMED: 24895407 (10) Anxiety ICD Codes: F41.9 - Anxiety disorder, unspecified SNOMED: 26419475 (11) Cirrhosis ICD Codes: K74.60 - Unspecified cirrhosis of liver SNOMED: 42958634 (12) Pruritus ICD Codes: L29.9 - Pruritus, unspecified SNOMED: 984754304, 792980961 (13) Cholecystitis, acute ICD Codes: K81.0 - Acute cholecystitis SNOMED: 85535841 (14) Weakness ICD Codes: R53.1 - Weakness SNOMED: 83902001 (15) Abdominal pain Assessment & Plan: 62-year-old female history of liver insufficiency history of cholecystitis treated nonoperatively and improved. Now presents readmitted during admission complain abdominal pain asking for pain medication. No nausea vomiting fever chills tolerating diet comfortable. LFTs okay leukopenia labs otherwise noted amylase lipase normal. Abdominal exam fairly benign. Unlikely acute cholecystitis again. Continue with oral diet. Trend labs we will follow with recommendations no acute surgical intervention planned. On IV antibiotics. ICD Codes: R10.9 - Unspecified abdominal pain SNOMED: 32745923 (16) Hypertension ICD Codes: I10 - Essential (primary) hypertension SNOMED: 29312852 (17) HIV disease ICD Codes: B20 - Human immunodeficiency virus [HIV] disease SNOMED: 33784029 (18) Cyst of skin ICD Codes: L72.9 - Follicular cyst of the skin and subcutaneous tissue, unspecified SNOMED: 300634768 (19) Epileptic seizure, generalized ICD Codes: G40.309 - Generalized idiopathic epilepsy and epileptic syndromes, not intractable, without status epilepticus SNOMED: 67305975 (20) Open wound of chest wall ICD Codes: S21.109A - Unspecified open wound of unspecified front wall of thorax without penetration into thoracic cavity, initial encounter SNOMED: 858525060 (21) Adnexal mass ICD Codes: N94.89 - Other specified conditions associated with female genital organs and menstrual cycle SNOMED: 281656685 (22) Hypertensive kidney disease ICD Codes: I12.9 - Hypertensive chronic kidney disease with stage 1 through stage 4 chronic kidney disease, or unspecified chronic kidney disease SNOMED: 87429138 (23) CHF (congestive heart failure), NYHA class II ICD Codes: I50.9 - Heart failure, unspecified SNOMED: 166711380, 362196511 (24) HCV antibody positive ICD Codes: R76.8 - Other specified abnormal immunological findings in serum SNOMED: 823168885 (25) Hypertensive urgency ICD Codes: I16.0 - Hypertensive urgency SNOMED: 358713291 (26) Intractable abdominal pain ICD Codes: R10.9 - Unspecified abdominal pain SNOMED: 99182302 (27) Recurrent vulvovaginal herpes simplex ICD Codes: A60.04 - Herpesviral vulvovaginitis SNOMED: 840590492 (28) Missed dialysis SNOMED: [id number] Deon Crowe Sep 22, 2020 11:28
--- NOTE | 2020-09-22 11:42 | NUR ---
*-*DISCHARGE PLANNED*-* PATIENT HAS BEEN ACCEPTED AND WILL BE DISCHARGED TO: [facility] P: [phone] FOR NURSE TO NURSE REPORT ROOM# 4.[facility] TRANSPORTATION SET FOR 1:30PM, S/W [facility] [id number]. PLACED A CALL TO PATIENTS SISTER TERESA ALEXANDER, NO ANSWER, LEFT VOICE MESSAGE IN REGARDS TO DISCHARGE PLAN.
[2020-09-22 12:00] VITALS: BP 130/89
[2020-09-22] MEDS ORDERED: Vancomycin 1.25gm Premix q24h IVPB SCH (12:00)
--- NOTE | 2020-09-22 13:00 | NUR ---
NURSE NOTES: Notified patient and sister -Zeny ,patient is going to [facility],address and telephone provided
--- NOTE | 2020-09-22 13:27 | Nephrology Progress Note ---
Assessment/Plan Problem List: (1) ESRD (end stage renal disease) on dialysis (2) Hyperkalemia (3) HIV disease (4) HCV antibody positive (5) Missed dialysis Assessment End-stage renal disease Noncompliant with dialysis Presents with hyperkalemia Recent COVID-19 infection History of substance abuse, cocaine HIV disease Hepatitis C virus antibody positive Hypertensive kidney disease Noncompliance with diet and dialysis Anemia of chronic kidney disease Plan September 22: Status quo. Labs reviewed. Medication list reviewed. Due for dialysis today. Continue per consultants. Previously: Patient had emergency dialysis last night and today the serum potassium is normalized Adjust blood pressure medication Adjust blood sugar Monitor renal parameters and hemoglobin and hematocrit Per orders Subjective ROS Limited/Unobtainable: No Constitutional: Reports: malaise Objective Objective Last 24 Hour Vital Signs Date Time Temp Pulse Resp B/P (MAP) Pulse Ox O2 Delivery O2 Flow Rate FiO2 09/22/20 12:00 Room Air 09/22/20 12:00 71 09/22/20 12:00 97.3 72 20 130/89 (103) 100 09/22/20 08:00 Room Air 09/22/20 08:00 63 09/22/20 08:00 97.9 69 18 148/77 (100) 99 09/22/20 04:00 97.9 77 20 135/69 (91) 98 09/22/20 04:00 Room Air 09/22/20 04:00 73 09/22/20 00:00 Room Air 09/22/20 00:00 78 09/22/20 00:00 97.5 84 20 160/87 (111) 98 09/21/20 20:00 Room Air 09/21/20 20:00 99.0 92 20 165/92 (116) 98 09/21/20 20:00 91 09/21/20 17:58 154/73 09/21/20 16:00 97.7 73 18 154/73 (100) 100 09/21/20 16:00 Room Air 09/21/20 15:36 75 Intake and Output 09/21/20 09/22/20 19:00 07:00 Intake Total 500 ml 600 ml Balance 500 ml 600 ml Intake Oral 500 ml 600 ml # Voids 1 # Bowel Movements 2 2 Current Medications Medications (Trade) Dose Ordered Sig/Rochelle Route PRN Reason Start Time Stop Time Status Last Admin Dose Admin Acetaminophen (Tylenol) 650 mg Q6H PRN ORAL For Headache 09/20/20 18:00 10/20/20 17:59 Acetaminophen/ Hydrocodone Bitart ([place] 10/325) 1 tab BIDPRN PRN ORAL For Pain 09/20/20 18:00 09/27/20 17:59 09/21/20 23:32 Bupropion HCl (Wellbutrin SR) 100 mg Q12HR ORAL 09/20/20 21:00 10/20/20 20:59 09/22/20 09:16 Chlorhexidine Gluconate (Mamie-Hex 2%) 1 applic DAILY@2000 TOPIC 09/20/20 20:00 12/19/20 19:59 09/21/20 21:16 Clonidine HCl (Catapres TTS-3) 1 patch QWEEK TDERMAL 09/21/20 13:00 12/20/20 12:59 09/21/20 12:58 Diazepam (Valium) 2 mg BIDPRN PRN ORAL For Anxiety 09/20/20 18:00 09/27/20 17:59 09/20/20 20:40 Docusate Sodium (Colace) 100 mg THREE TIMES A DAY ORAL 09/21/20 13:00 10/21/20 12:59 09/22/20 09:16 Dolutegravir Sodium (Tivicay) 50 mg DAILY ORAL 09/21/20 09:00 12/20/20 08:59 UNV Epoetin Jose (Epoetin Jose(ESRD on dialysis)) 10,000 unit FRI-FRI-FRI SUBQ 09/22/20 21:00 12/21/20 20:59 Hydralazine HCl (Apresoline) 25 mg Q4H PRN ORAL SBP above 150mmHg 09/21/20 11:15 12/19/20 17:59 09/21/20 17:58 Hydroxyzine HCl (Vistaril) 25 mg Q8H ORAL 09/21/20 14:00 10/20/20 13:59 09/22/20 05:50 Levothyroxine Sodium (Synthroid) 50 mcg DAILY@0630 ORAL 09/22/20 06:30 10/22/20 06:29 09/22/20 05:50 Pantoprazole (Protonix) 40 mg DAILY ORAL 09/21/20 09:00 10/21/20 08:59 09/22/20 09:16 Trazodone HCl (Desyrel) 50 mg BEDTIME ORAL 09/20/20 21:00 10/20/20 20:59 09/21/20 21:16 Vancomycin HCl ([facility] pharmacy to dose) 1 ea DAILY PRN MISC Per rx protocol 09/22/20 11:00 10/22/20 10:59 Laboratory Tests 09/22/20 04:40: White Blood Count [Pending], Red Blood Count 2.71L, Hemoglobin 7.7L, Hematocrit 24.4L, Mean Corpuscular Volume 90, Mean Corpuscular Hemoglobin 28.6, Mean Corpuscular Hemoglobin Concent 31.7L, Red Cell Distribution Width 17.4H, Platelet Count 152, Mean Platelet Volume 6.0L, Neutrophils (%) (Auto) , Lymphocytes (%) (Auto) , Monocytes (%) (Auto) , Eosinophils (%) (Auto) , Basophils (%) (Auto) , Differential Total Cells Counted 100, Neutrophils % (Manual) 45, Lymphocytes % (Manual) 25, Monocytes % (Manual) 18H, Eosinophils % (Manual) 12H, Basophils % (Manual) 0, Band Neutrophils 0, Lymphocytes [Pending], Platelet Estimate DecreasedL, Platelet Morphology Normal, Hypochromasia 1+, Anisocytosis 1+, Sodium Level 140, Potassium Level 5.1, Chloride Level 103, Carbon Dioxide Level 30, Anion Gap 7, Blood Urea Nitrogen 46H, Creatinine 8.7H, Estimat Glomerular Filtration Rate 5.5, Glucose Level 98, Uric Acid 5.8, Calcium Level 7.7L, Phosphorus Level 4.0, Magnesium Level 2.4, Iron Level 46L, Total Iron Binding Capacity 172L, Percent Iron Saturation 27, Unsaturated Iron Binding 126, Ferritin 476H, Total Bilirubin 0.3, Aspartate Amino Transf (AST/SGOT) 17, Alanine Aminotransferase (ALT/SGPT) 7L, Alkaline Phosphatase 59, C-Reactive Protein, Quantitative 0.7, Total Protein 7.1, Albumin 2.6L, Globulin 4.5, Albumin/Globulin Ratio 0.6L, Vitamin B12 Level 287, Folate 2.7L, Percent CD3 Cells [Pending], Absolute CD3 Count [Pending], Percent CD4 Cells [Pending], Absolute CD4 Count [Pending], T-Lymphocyte CD4/CD8 Ratio [Pending], Percent CD8 Cells [Pending], Absolute CD8 Count [Pending] Height (Feet): 5 Height (Inches): 4.00 Weight (Pounds): 170 General Appearance: no apparent distress, lethargic Cardiovascular: normal rate Respiratory/Chest: decreased breath sounds Abdomen: distended Jack Pryor MD Sep 22, 2020 13:27
--- NOTE | 2020-09-22 13:50 | NUR ---
NURSE NOTES: called out Bridgett pierre,report given to KAMRYN,RN,updated re pt's V/S,medications,and general status.Pt going with HD access to LT SC Perma cath.
[2020-09-22 16:00] VITALS: BP 158/76
--- NOTE | 2020-09-22 16:12 | NUR ---
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
--- NOTE | 2020-09-22 16:41 | NUR ---
NURSE NOTES: Pt discharged and out of the unit per camrynrshreyas accompanied by ambulance personell awake,alert in no resp distress or discomfort.
--- NOTE | 2020-09-22 17:00 | Cardiology Progress Note ---
Subjective DATE OF SERVICE: Sep 22, 2020 s/p HD/UF this morning; potassium had normalized. Patient cannot take care of herself; she will need SNC for now until a safe environment is located. Family have repeatedly failed to assist, and patient has missed dialysis repeatedly - resulting in hospitalizations every 1-3 weeks. Objective Last 24 Hour Vital Signs Date Time Temp Pulse Resp B/P (MAP) Pulse Ox O2 Delivery O2 Flow Rate FiO2 09/22/20 16:00 97.7 66 20 158/76 (103) 94 09/22/20 16:00 Room Air 09/22/20 16:00 64 09/22/20 12:00 Room Air 09/22/20 12:00 71 09/22/20 12:00 97.3 72 20 130/89 (103) 100 09/22/20 08:00 Room Air 09/22/20 08:00 63 09/22/20 08:00 97.9 69 18 148/77 (100) 99 09/22/20 04:00 97.9 77 20 135/69 (91) 98 09/22/20 04:00 Room Air 09/22/20 04:00 73 09/22/20 00:00 Room Air 09/22/20 00:00 78 09/22/20 00:00 97.5 84 20 160/87 (111) 98 09/21/20 20:00 Room Air 09/21/20 20:00 99.0 92 20 165/92 (116) 98 09/21/20 20:00 91 09/21/20 17:58 154/73 HEENT: normal ENT inspection RHYTHM: NSR, PACs LUNGS: lungs clear bilaterally, other - right chest wall dialysis cath CARDIAC: normal rate, regular rhythm, normal S1 and S2, gallop/S4 ABDOMEN: normal bowel sounds, non tender, soft EXTREMITIES: non-tender, slow capillary refill, No edema Laboratory Tests Test 09/22/20 04:40 White Blood Count Pending Red Blood Count 2.71 M/UL (4.20-5.40) L Hemoglobin 7.7 G/DL (12.0-16.0) L Hematocrit 24.4 % (37.0-47.0) L Mean Corpuscular Volume 90 FL (80-99) Mean Corpuscular Hemoglobin 28.6 PG (27.0-31.0) Mean Corpuscular Hemoglobin Concent 31.7 G/DL (32.0-36.0) L Red Cell Distribution Width 17.4 % (11.6-14.8) H Platelet Count 152 K/UL (150-450) Mean Platelet Volume 6.0 FL (6.5-10.1) L Neutrophils (%) (Auto) % (45.0-75.0) Lymphocytes (%) (Auto) % (20.0-45.0) Monocytes (%) (Auto) % (1.0-10.0) Eosinophils (%) (Auto) % (0.0-3.0) Basophils (%) (Auto) % (0.0-2.0) Differential Total Cells Counted 100 Neutrophils % (Manual) 45 % (45-75) Lymphocytes % (Manual) 25 % (20-45) Monocytes % (Manual) 18 % (1-10) H Eosinophils % (Manual) 12 % (0-3) H Basophils % (Manual) 0 % (0-2) Band Neutrophils 0 % (0-8) Lymphocytes Pending Platelet Estimate Decreased L Platelet Morphology Normal Hypochromasia 1+ Anisocytosis 1+ Sodium Level 140 MMOL/L (136-145) Potassium Level 5.1 MMOL/L (3.5-5.1) Chloride Level 103 MMOL/L (98-107) Carbon Dioxide Level 30 MMOL/L (21-32) Anion Gap 7 mmol/L (5-15) Blood Urea Nitrogen 46 mg/dL (7-18) H Creatinine 8.7 MG/DL (0.55-1.30) H Estimat Glomerular Filtration Rate 5.5 mL/min (>60) Glucose Level 98 MG/DL (74-106) Uric Acid 5.8 MG/DL (2.6-7.2) Calcium Level 7.7 MG/DL (8.5-10.1) L Phosphorus Level 4.0 MG/DL (2.5-4.9) Magnesium Level 2.4 MG/DL (1.8-2.4) Iron Level 46 ug/dL (50-175) L Total Iron Binding Capacity 172 ug/dL (250-450) L Percent Iron Saturation 27 % (15-50) Unsaturated Iron Binding 126 ug/dL (112-346) Ferritin 476 NG/ML (8-388) H Total Bilirubin 0.3 MG/DL (0.2-1.0) Aspartate Amino Transf (AST/SGOT) 17 U/L (15-37) Alanine Aminotransferase (ALT/SGPT) 7 U/L (12-78) L Alkaline Phosphatase 59 U/L (46-116) C-Reactive Protein, Quantitative 0.7 mg/dL (0.00-0.90) Total Protein 7.1 G/DL (6.4-8.2) Albumin 2.6 G/DL (3.4-5.0) L Globulin 4.5 g/dL Albumin/Globulin Ratio 0.6 (1.0-2.7) L Vitamin B12 Level 287 PG/ML (193-986) Folate 2.7 NG/ML (8.6-58.9) L Percent CD3 Cells Pending Absolute CD3 Count Pending Percent CD4 Cells Pending Absolute CD4 Count Pending T-Lymphocyte CD4/CD8 Ratio Pending Percent CD8 Cells Pending Absolute CD8 Count Pending Microbiology Date/Time Source Procedure Growth Status 09/20/20 16:50 Nasal Nares MRSA Culture - Final NO METHICILLIN RESISTANT STAPH AUREUS... Complete 09/20/20 16:50 Nasopharynx SARS-CoV-2 Antigen (Rapid)(VICTORIA) - Final Complete 09/20/20 13:55 Blood Blood Culture - Preliminary Resulted 09/20/20 13:30 Blood Blood Culture - Preliminary NO GROWTH AFTER 24 HOURS Resulted Assessment/Plan Assessment/Plan Missed dialysis sessions Non compliance Hx cocaine abuse Hypertension/HHD HIV+ Hep C IRDM ESRD Metabolic encephalopathy Bilateral ovarian masses Cardiovascular regimen will continue being titrated at [facility]. HD with UF 3x/week Unsafe to return home due to self neglect DC medication regimen reviewed for discharge Nam Barnett MD Sep 22, 2020 17:00
[2020-09-22] MEDS ORDERED: Epoetin Alfa-EPBX(ESRD on dialysis)10,000 unit/ml vial SUBQ SCH (21:00)
--- NOTE | 2020-09-26 13:05 | Discharge Summary ---
Discharge Summary Discharge Summary _ DATE OF ADMISSION: 09/20/2020 DATE OF DISCHARGE: 09/22/2020 DISCHARGED BY: Dr. Barnett REASON FOR ADMISSION: 70 years old female with end-stage renal disease, on hemodialysis, HIV, hepatitis C, hypertension, paroxysmal supraventricular tachyarrhythmia, conduction system disease with bradycardia, hypertensive heart disease, benzodiazepine and hydrocodone dependency, cocaine abuse, history of Port-A-Cath line infection, chronic cholecystitis , status post drainage, COPD, was just recently discharged from [facility] (about a week ago). Patient was treated there for COVID-19 infection. Patient was on isolation for over 10 days. APS report was previously filed at [facility]. Upon discharge patient refused to go to rehabilitation center, and family member insisted that they would ensure adequate care and will be in compliance with dialysis sessions. Apparently patient attended her first dialysis session and subsequently missed the next 4 sessions. Home health nursing went to the house on at least 2 occasions but was refused to enter. Ultimately patient came to emergency department complaining of the back pain and shortness of breath . Upon evalaution aptoietn was afebrile, but required supplemental oxygen initially. Laboratory work-up was notable for potassium 6.9. WBC 3.6, hemoglobin 9.6. BUN 65, creatinine 11. Lactic acid 1. Troponin negative, pro BNP above 35,000 . Albumin 3.0 . COVID 19 was negative. Patient subsequently admitted to stepdown unit for further management. CONSULTANTS: ID specialist Dr. Garibay stock crane operator Dr. Pryor [facility] Dr. Crowe [facility] COURSE: Patient admitted and received urgently Kayexalate. Patient was on continuous cardiac monitoring. Urgent hemodialysis with ultrafiltration was arranged . Subsequnetly hemodyalisys was continued with close monitoring of volumea, cardiorenal parameters and electrolytes. \ Cardiovascular regimen was titrated. Use of benzodiazepine and pain medication was limited. Adult Protective Services report , recently filed by [facility], was followed up. Home medications continued. Blood culture revealed Staph epidermidis and Staph viridans. Patient started on vancomycin as per ID specialist recommendation Transfer was arranged to long term facility/ [facility] , as patient was unsafe to return home. Patient will continue vancomycin with dialysis ; blood culture will be repeated for clearance. FINAL DIAGNOSES: Gram-positive sepsis Missed dialysis session Noncompliance Hyperkalemia History of recurrent cocaine abuse Hypertension/ hypertensive heart disease Cardiac arrhythmias Conduction system disease of the heart End-stage renal disease, on hemodialysis HIV+ Hepatitis C Metabolic encephalopathy Status post COVID-19, recovered Acute on chronic diastolic congestive heart failure Mild protein calorie malnutrition COPD DISCHARGE MEDICATIONS: See Medication Reconciliation list. DISCHARGE INSTRUCTIONS: Patient was discharged to the long term facility. Follow up with medical doctor at the facility. I have been assigned to dictate discharge summary for this account. I was not involved in the patient's management. Soila Jaffe NP Sep 26, 2020 13:05
== END 2020-09-22 16:45 | DRG 871 ==
LOC: EDBEDREQ 13:43 → EMR 14:28 → 2W 14:34 → EDBEDREQ 15:31 → 2W 17:13
PROC: 5A1D70Z Performance of Urinary Filtration, Intermittent, Less than 6 Hours Per Day (ICD-10-PCS; principal; 2020-09-22)
DX: A41.9 Sepsis, unspecified organism (principal); N18.6 End stage renal disease; I50.33 Acute on chronic diastolic (congestive) heart failure; G93.41 Metabolic encephalopathy; I13.2 Hypertensive heart and chronic kidney disease with heart failure and with stage 5 chronic kidney disease, or end stage renal disease; E44.1 Mild protein-calorie malnutrition; E87.5 Hyperkalemia; Z88.6 Allergy status to analgesic agent; Z91.041 Radiographic dye allergy status; Z86.16 Personal history of COVID-19; J44.9 Chronic obstructive pulmonary disease, unspecified; Z99.2 Dependence on renal dialysis; Z91.15 Patient's noncompliance with renal dialysis; F14.11 Cocaine abuse, in remission; D63.1 Anemia in chronic kidney disease; E03.9 Hypothyroidism, unspecified; N83.9 Noninflammatory disorder of ovary, fallopian tube and broad ligament, unspecified; E11.22 Type 2 diabetes mellitus with diabetic chronic kidney disease; Z79.4 Long term (current) use of insulin; Z91.11 Patient's noncompliance with dietary regimen; I49.9 Cardiac arrhythmia, unspecified; B19.20 Unspecified viral hepatitis C without hepatic coma
CPT/HCPCS: 36415; 71045; 80053; 80061; 82550; 82607; 82728; 82746; 83036; 83540; 83550; 83605; 83615; 83690; 83735; 83880; 84100; 84443; 84484; 84550; 85007; 85025; 85610; 85730; 86140; 86360; 86706; 87040; 87081; 87181; 93005; 96374; 96375; 96376; 99291; J2405